=== PATIENT | male | born 1955 | race Caucasian/White ===

== ENCOUNTER 2019-04-08 15:43 | Outpatient (CLI) | payer OTHER, SELFPAY ==
[2019-04-08 16:50] LABS: Prostate Specific Antigen 0.7 ng/mL (< OR = 4.0)
== END 2019-04-08 15:44 | disposition home or self-care (01) ==
LOC: ANHLAB 15:44
PROVIDERS: PCP Internal Medicine; Visit Provider Urology
DX: N40.0 Benign prostatic hyperplasia without lower urinary tract symptoms (principal)
CPT/HCPCS: 36415; 84153

== ENCOUNTER 2019-04-10 15:02 | Outpatient (RCR) | payer OTHER, SELFPAY ==
[2019-04-10 15:04] VITALS: BMI 29.3
== END 2019-07-09 23:59 | disposition home or self-care (01) ==
LOC: ANHDMC 15:02
PROVIDERS: PCP Internal Medicine; Visit Provider Internal Medicine
DX: E11.65 Type 2 diabetes mellitus with hyperglycemia (principal); Z71.3 Dietary counseling and surveillance
CPT/HCPCS: 97803

== ENCOUNTER 2019-04-24 09:53 | Outpatient (CLI) | payer OTHER, SELFPAY ==
--- NOTE | ~2019-04-24 | US_ITS ---
EXAMINATION: US thyroid DATE: 04/24/2019 11:25 INDICATION: Neck swelling. TECHNIQUE: Multiple ultrasound images of the thyroid were obtained. COMPARISON: None. FINDINGS: The right thyroid lobe measures 6.0 x 1.9 x 1.3 cm. The left thyroid lobe measures 5.7 x 2.1 x 1.5 c m. There is normal echotexture and echogenicity throughout the thyroid gland. No discrete nodules id entified. Normal vascular flow is present. IMPRESSION: 1. Normal thyroid. Reviewed, dictated and finalized at location A. OR COUNSEL IMPRESSION: 1. Normal thyroid.
== END 2019-04-24 09:54 | disposition home or self-care (01) ==
LOC: ANHIMG 10:00
PROVIDERS: PCP Internal Medicine; Visit Provider Internal Medicine Endocrinology, Diabetes & Metabolism
DX: R22.1 Localized swelling, mass and lump, neck (principal)
CPT/HCPCS: 76536

== ENCOUNTER 2019-07-31 09:49 | Outpatient (CLI) | payer OTHER, SELFPAY ==
[2019-07-31 11:50] LABS: Vitamin D 25 Hydroxy 48.6 ng/mL
[2019-07-31 12:46] LABS: Alanine Aminotransferase 19 U/L (4-50); Albumin Level 4.3 g/dL (3.5-5.1); Alkaline Phosphatase 57 U/L (38-126); Aspartate Amino Transferase 28 U/L (17-59); Bilirubin,Total 0.7 mg/dL (0.2-1.3); Blood Urea Nitrogen 26 mg/dL (9-20); Calcium 9.1 mg/dL (8.4-10.2); Carbon Dioxide 24 mmol/L (22-30); Chloride 108 mmol/L (98-107); Cholesterol 97 mg/dL (0-200); Estimated Glomerular Filt Rate 51; Glucose 131 mg/dL (75-110); HDL Direct 39 mg/dL; Hemoglobin A1C 5.6 % (<5.7); LDL Cholesterol Direct 47 mg/dL; Potassium 4.5 mmol/L (3.4-5.0); Sodium 137 mmol/L (137-145); Triglycerides 43 mg/dL (<150); Uric Acid 6.1 mg/dL (3.5-8.5)
[2019-07-31 12:47] LABS: Creatinine Urine 74.1 mg/dL; Free T4 Free Thyroxine 1.14 ng/mL (0.78-2.19)
[2019-07-31 12:48] LABS: MALB Creatinine Ratio < 8.1 mg/g (0-30); Microalbumin Urine Random < 6.0 mg/L (0-16.7)
[2019-07-31 13:22] LABS: Red Blood Count 4.17 M/mm3 (4.6-6.20)
[2019-07-31 13:23] LABS: Hematocrit 40.4 % (42.0-52.0); Immature Granulocyte Percent A 0.6 % (0-0.5); Immature Platelet Fraction Pct 2.6 % (0.9-11.2); Mean Corpuscular HGB Conc 34.7 g/dl (32-36); Mean Corpuscular Hemoglobin 33.6 pg (26-34); Mean Corpuscular Volume 96.9 fl (80-100); Platelet Count Result 131 k/mm3 (150-375); Red Cell Distribution Width 13.2 % (11.5-14.5)
[2019-07-31 13:24] LABS: Basophils Percent Auto 0.6 % (0.2-1.2); Eosinophils Absolute Auto 0.2 K/mm3 (0-0.3); Eosinophils Percent Auto 4.4 % (0-4.4); Immature Granulocyte Absolute 0.03 K/mm3 (0.00-0.031); Monocytes Absolute Auto 0.4 K/mm3 (0.1-0.6); Monocytes Percent Auto 8.2 % (2.6-8.5); Neutrophils Absolute Auto 3.2 K/mm3 (1.3-6.7); Neutrophils Percent Auto 64.2 % (45.5-73.1)
[2019-07-31 14:40] LABS: Erythrocyte Sedimentation Rate 24 mm/hr (0-20)
[2019-07-31 15:12] LABS: Add Urine Microscopic? NO; Appearance Urine Clear (Clear); Bilirubin Urine Negative (Negative); Blood Urine Negative (Negative); Color Urine Straw (Yellow); Glucose Urine UA Negative (Negative); Ketones Urine Negative (Negative); Leukocyte Esterase Ur Negative LEU/UL (Negative); Nitrate Urine Negative (Negative); Protein Urine Negative (Negative); Specific Grav Ur 1.014 (1.001-1.035); Urobilinogen Urine Negative mg/dL (<2.0)
== END 2019-07-31 09:50 | disposition home or self-care (01) ==
PROVIDERS: PCP Internal Medicine; Visit Provider Internal Medicine Endocrinology, Diabetes & Metabolism
DX: N18.3 Chronic kidney disease, stage 3 (moderate) (principal); E11.65 Type 2 diabetes mellitus with hyperglycemia; I10 Essential (primary) hypertension; I73.9 Peripheral vascular disease, unspecified; E78.5 Hyperlipidemia, unspecified; L97.901 Non-pressure chronic ulcer of unspecified part of unspecified lower leg limited to breakdown of skin; K21.9 Gastro-esophageal reflux disease without esophagitis; N26.1 Atrophy of kidney (terminal); F17.200 Nicotine dependence, unspecified, uncomplicated; R80.9 Proteinuria, unspecified; E11.9 Type 2 diabetes mellitus without complications
CPT/HCPCS: 36415; 80053; 80061; 81003; 82043; 82306; 83036; 83970; 84439; 84443; 84550; 85025; 85055; 85652

== ENCOUNTER 2019-09-26 10:08 | Outpatient (CLI) | payer OTHER, SELFPAY ==
--- NOTE | ~2019-09-26 | CT_ITS ---
EXAMINATION: CT lung screening DATE: 09/26/2019 10:43 INDICATION: Personal history of tobacco dependence, current smoker with 46 pack year history TECHNIQUE: Computed tomography (CT) of the chest was performed without intravenous contrast. The dose -length product (DLP) was 170.56 mGy-cm. Automated exposure control and iterative reconstruction tech [employer] were employed. COMPARISON: 05/15/2018, 06/11/2017 FINDINGS: There is scarring of the lung apices. Stable 4 mm pleural-based nodules are seen in the rig ht middle and left lower lobes. Mild emphysema is noted. No new pulmonary nodules are identified. The re is no pleural effusion or pneumothorax. Calcified pulmonary nodules and calcified left hilar and m ediastinal lymph nodes are consistent with old granulomatous disease. Calcified coronary artery ather osclerosis is noted. Again noted is nodularity of the liver surface, consistent with cirrhosis. IMPRESSION: 1. Lung-RADS category 2: Benign appearance or behavior. Continue annual screening with noncontrast lo w-dose chest CT in 12 months. Reviewed, dictated and finalized at location B. IMPRESSION: 1. Lung-RADS category 2: Benign appearance or behavior. Continue annual screeni ng with noncontrast low-dose chest CT in 12 months.
== END 2019-09-26 10:09 | disposition home or self-care (01) ==
PROVIDERS: PCP Internal Medicine; Visit Provider Internal Medicine
DX: F17.210 Nicotine dependence, cigarettes, uncomplicated (principal)
CPT/HCPCS: G0297

== ENCOUNTER 2020-01-06 14:31 | Outpatient (CLI) | payer OTHER, SELFPAY ==
--- NOTE | ~2020-01-06 | CT_ITS ---
EXAMINATION: CT abdomen pelvis wo con DATE: 01/06/2020 15:42 INDICATION: Generalized abdominal pain for one month TECHNIQUE: Computed tomography (CT) of the abdomen and pelvis was performed without intravenous contr ast. Automated exposure control and iterative reconstruction technique were employed. Exam dose: 603 .46 mGy-cm total exam DLP. COMPARISON: 10/14/2018 CT abdomen pelvis FINDINGS: The lung bases are clear of consolidation. Heart size is normal. Coronary artery calcifications. No pericardial or pleural effusion. A small stone is noted in the dependent aspect of the gallbladder fundus. No gallbladder wall signifi cant thickening or pericholecystic fluid or fat stranding is suggested. No hepatic space-occupying ma ss lesion. Normal splenic size. No pancreatic mass lesion, calcification or ductal dilatation. Normal morphology of the adrenal glands. No urinary tract calculus or hydroureteronephrosis. There is an endovascular stent at the distal aorta extending into both common iliac arteries. There i s atherosclerotic calcification of the abdominal aorta, iliac and femoral arteries. No abdominal aort ic aneurysm. Prominent calcifications at the origins of the celiac and both renal arteries. No intraperitoneal or retroperitoneal or pelvic mass lesion or adenopathy or ascites is detected. There is generalized mild to moderate thickening of the urinary bladder wall. Mild prostate gland fausto cification. Small bilateral fat-containing inguinal hernias. There are scattered diverticula of the sigmoid and ascending colon. No CT evidence of diverticulitis. No bowel obstruction, bowel wall thickening, pneumatosis or intraperitoneal free air. There is prominent degenerative disc disease at L2-3. No suspicious osteolytic or osteoblastic lesions are noted. Avascular necrosis of both femoral heads. IMPRESSION: Cholelithiasis Atherosclerotic changes of the coronary arteries, abdominal, iliac, femoral, renal, celiac arteries Endovascular stent at the distal abdominal aorta and both common iliac arteries Mild colonic diverticulosis; no CT evidence of diverticulitis Avascular necrosis of both femoral heads Prominent degenerative disc disease at L2-3 Bilateral fat-containing inguinal hernias Nonspecific generalized mild to moderate thickening of the urinary bladder wall Reviewed, dictated and finalized at Location A. Reviewed, dictated and finalized at location A. 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
== END 2020-01-06 14:32 | disposition home or self-care (01) ==
PROVIDERS: PCP Internal Medicine; Visit Provider Internal Medicine
DX: K57.30 Diverticulosis of large intestine without perforation or abscess without bleeding (principal); K40.20 Bilateral inguinal hernia, without obstruction or gangrene, not specified as recurrent; M51.36 Other intervertebral disc degeneration, lumbar region; K80.20 Calculus of gallbladder without cholecystitis without obstruction
CPT/HCPCS: 74176

== ENCOUNTER 2020-01-14 10:41 | Outpatient (CLI) | payer OTHER, SELFPAY ==
--- NOTE | ~2020-01-14 | US_ITS ---
EXAMINATION: US right upper quadrant DATE: 01/14/2020 11:22 INDICATION: Alcoholic cirrhosis of the liver without ascites. TECHNIQUE: Multiple grayscale and Doppler ultrasound images of the abdomen were obtained. COMPARISON: CT abdomen and pelvis 01/06/2020 FINDINGS: The visualized portions of the head and body of the pancreas are normal. The liver demonstr ates coarsened echotexture and surface nodularity, consistent with cirrhosis. There is normal flow in main portal vein. There is a gallstone in the gallbladder, which is normal in size. No gallbladder w all thickening or sonographic Dennison sign. The common duct is normal and measures 3 mm. IMPRESSION: 1. Cirrhosis of the liver. 2. Cholelithiasis. No evidence of acute cholecystitis. Reviewed, dictated and finalized at location A. 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
== END 2020-01-14 10:42 | disposition home or self-care (01) ==
LOC: ANHIMG 10:43
PROVIDERS: PCP Internal Medicine; Visit Provider Internal Medicine Gastroenterology
DX: K70.30 Alcoholic cirrhosis of liver without ascites (principal); K80.20 Calculus of gallbladder without cholecystitis without obstruction
CPT/HCPCS: 76705

== ENCOUNTER 2020-02-03 09:44 | Outpatient (CLI) | payer OTHER, SELFPAY ==
[2020-02-03 10:34] LABS: Basophils Percent Auto 0.5 % (0.2-1.2); Eosinophils Absolute Auto 0.2 K/mm3 (0-0.3); Eosinophils Percent Auto 3.6 % (0-4.4); Hematocrit 40.8 % (42.0-52.0); Hemoglobin 14.4 g/dL (14.0-18.0); Immature Granulocyte Absolute 0.06 K/mm3 (0.00-0.031); Immature Granulocyte Percent A 0.9 % (0-0.5); Immature Platelet Fraction Pct 4.5 % (0.9-11.2); Lymphocytes Absolute Auto 1.18 K/mm3 (0.9-3.2); Lymphocytes Percent Auto 18.5 % (18.3-44.2); Mean Corpuscular HGB Conc 35.3 g/dl (32-36); Mean Corpuscular Hemoglobin 33.3 pg (26-34); Mean Corpuscular Volume 94.4 fl (80-100); Monocytes Absolute Auto 0.5 K/mm3 (0.1-0.6); Monocytes Percent Auto 7.2 % (2.6-8.5); Neutrophils Absolute Auto 4.4 K/mm3 (1.3-6.7); Neutrophils Percent Auto 69.3 % (45.5-73.1); Platelet Count Result 134 k/mm3 (150-375); Red Blood Count 4.32 M/mm3 (4.6-6.20); Red Cell Distribution Width 12.7 % (11.5-14.5); White Blood Count 6.4 K/mm3 (4.5-10.0)
[2020-02-03 10:41] LABS: Prothrombin Time 13.8 Seconds (11.1-14.7)
[2020-02-03 10:52] LABS: Albumin Level 4.1 g/dL (3.5-5.1); Cholesterol 100 mg/dL (0-200)
[2020-02-03 10:58] LABS: LDL Cholesterol Direct 46 mg/dL
[2020-02-03 11:11] LABS: Alanine Aminotransferase 29 U/L (4-50); Alkaline Phosphatase 59 U/L (38-126); Anion Gap 7 mmol/L (8-16); Aspartate Amino Transferase 31 U/L (17-59); Bilirubin,Total 0.8 mg/dL (0.2-1.3); Blood Urea Nitrogen 19 mg/dL (9-20); Calcium 9.3 mg/dL (8.4-10.2); Carbon Dioxide 28 mmol/L (22-30); Chloride 104 mmol/L (98-107); Estimated Glomerular Filt Rate 56; Glucose 101 mg/dL (75-110); HDL Direct 39 mg/dL; Potassium 4.7 mmol/L (3.4-5.0); Sodium 139 mmol/L (137-145); Triglycerides 54 mg/dL (<150)
[2020-02-03 11:21] LABS: Free T4 Free Thyroxine 1.19 ng/mL (0.78-2.19); Hemoglobin A1C 5.8 % (<5.7)
[2020-02-03 12:02] LABS: Creatinine Urine 53.9 mg/dL
[2020-02-03 12:06] LABS: MALB Creatinine Ratio 11.7 mg/g (0-30); Microalbumin Urine Random 6.3 mg/L (0-16.7)
[2020-02-03 13:58] LABS: Prostate Specific Antigen 0.6 ng/mL (< OR = 4.0)
[2020-02-08 14:13] LABS: Alpha Fetoprotein Tumor Marker 2.1 ng/mL (<6.1)
== END 2020-02-03 09:45 | disposition home or self-care (01) ==
PROVIDERS: PCP Internal Medicine; Referring Provider Internal Medicine Endocrinology, Diabetes & Metabolism; Visit Provider Internal Medicine
DX: Z12.9 Encounter for screening for malignant neoplasm, site unspecified (principal); E78.5 Hyperlipidemia, unspecified
CPT/HCPCS: 36415; 80053; 80061; 82043; 82105; 83036; 84153; 84439; 84443; 85025; 85055; 85610

== ENCOUNTER 2020-05-11 09:51 | Outpatient (CLI) | payer MEDICARE, SELFPAY ==
[2020-05-11 10:39] LABS: Hemoglobin 14.2 g/dL (14.0-18.0); Red Blood Count 4.27 M/mm3 (4.6-6.20); White Blood Count 5.6 K/mm3 (4.5-10.0)
[2020-05-11 10:40] LABS: Basophils Percent Auto 0.5 % (0.2-1.2); Eosinophils Absolute Auto 0.2 K/mm3 (0-0.3); Eosinophils Percent Auto 3.4 % (0-4.4); Immature Granulocyte Absolute 0.02 K/mm3 (0.00-0.031); Immature Granulocyte Percent A 0.4 % (0-0.5); Immature Platelet Fraction Pct 4.1 % (0.9-11.2); Lymphocytes Percent Auto 19.7 % (18.3-44.2); Mean Corpuscular HGB Conc 34.6 g/dl (32-36); Mean Corpuscular Hemoglobin 33.3 pg (26-34); Mean Platelet Volume 9.6 fl (7.4-10.4); Monocytes Absolute Auto 0.5 K/mm3 (0.1-0.6); Monocytes Percent Auto 9.1 % (2.6-8.5); Neutrophils Absolute Auto 3.7 K/mm3 (1.3-6.7); Neutrophils Percent Auto 66.9 % (45.5-73.1); Platelet Count Result 130 k/mm3 (150-375); Red Cell Distribution Width 13.1 % (11.5-14.5)
[2020-05-11 10:44] LABS: Hemoglobin A1C 5.7 % (<5.7)
[2020-05-11 10:49] LABS: Alanine Aminotransferase 28 U/L (4-50); Albumin Level 4.1 g/dL (3.5-5.1); Alkaline Phosphatase 56 U/L (38-126); Anion Gap 6 mmol/L (8-16); Aspartate Amino Transferase 30 U/L (17-59); Bilirubin,Total 0.8 mg/dL (0.2-1.3); Blood Urea Nitrogen 27 mg/dL (9-20); Calcium 8.8 mg/dL (8.4-10.2); Carbon Dioxide 29 mmol/L (22-30); Chloride 104 mmol/L (98-107); Cholesterol 106 mg/dL (0-200); Estimated Glomerular Filt Rate 47; Glucose 137 mg/dL (75-110); HDL Direct 35 mg/dL; Phosphorus 3.6 mg/dL (2.5-4.5); Potassium 4.8 mmol/L (3.4-5.0); Sodium 139 mmol/L (137-145); Triglycerides 66 mg/dL (<150); Uric Acid 6.6 mg/dL (3.5-8.5)
[2020-05-11 10:59] LABS: Parathyroid Intact 49.8 pg/mL (7.5-53.5)
[2020-05-11 11:00] LABS: LDL Cholesterol Direct 57 mg/dL
[2020-05-11 11:05] LABS: Creatinine Urine 167.3 mg/dL; Erythrocyte Sedimentation Rate 29 mm/hr (0-20)
[2020-05-11 11:10] LABS: MALB Creatinine Ratio 12.4 mg/g (0-30); Microalbumin Urine Random 20.8 mg/L (0-16.7)
[2020-05-11 11:18] LABS: Thyroid Stimulating Hormone 0.945 uIU/mL (0.465-4.680)
[2020-05-11 11:21] LABS: Free T4 Free Thyroxine 1.09 ng/mL (0.78-2.19); Vitamin D 25 Hydroxy 71.5 ng/mL
[2020-05-11 13:33] LABS: Add Urine Microscopic? NO; Appearance Urine Clear (Clear); Bilirubin Urine Negative (Negative); Blood Urine Negative (Negative); Color Urine Yellow (Yellow); Glucose Urine UA Negative (Negative); Ketones Urine Negative (Negative); Leukocyte Esterase Ur Negative LEU/UL (Negative); Nitrate Urine Negative (Negative); Protein Urine Negative (Negative); Specific Grav Ur 1.019 (1.001-1.035); Urobilinogen Urine Negative mg/dL (<2.0)
== END 2020-05-11 09:52 | disposition home or self-care (01) ==
PROVIDERS: PCP Internal Medicine; Referring Provider Specialist; Visit Provider Internal Medicine Endocrinology, Diabetes & Metabolism
DX: E11.65 Type 2 diabetes mellitus with hyperglycemia (principal); E78.5 Hyperlipidemia, unspecified; R60.9 Edema, unspecified; N39.0 Urinary tract infection, site not specified; R73.09 Other abnormal glucose; Z12.5 Encounter for screening for malignant neoplasm of prostate; Z11.4 Encounter for screening for human immunodeficiency virus [HIV]; N18.30 Chronic kidney disease, stage 3 unspecified; I12.9 Hypertensive chronic kidney disease with stage 1 through stage 4 chronic kidney disease, or unspecified chronic kidney disease
CPT/HCPCS: 36415; 80053; 80061; 81003; 82043; 82306; 83036; 83970; 84100; 84439; 84443; 84550; 85025; 85055; 85652

== ENCOUNTER 2020-09-09 10:25 | Outpatient (CLI) | payer MEDICARE, SELFPAY ==
[2020-09-09 11:10] LABS: Add Urine Microscopic? NO; Appearance Urine Clear (Clear); Basophils Percent Auto 0.5 % (0.2-1.2); Bilirubin Urine Negative (Negative); Blood Urine Negative (Negative); Color Urine Yellow (Yellow); Eosinophils Absolute Auto 0.2 K/mm3 (0-0.3); Eosinophils Percent Auto 3.9 % (0-4.4); Glucose Urine UA Negative (Negative); Hematocrit 41.4 % (42.0-52.0); Hemoglobin 13.9 g/dL (14.0-18.0); Immature Granulocyte Absolute 0.02 K/mm3 (0.00-0.031); Immature Granulocyte Percent A 0.3 % (0-0.5); Immature Platelet Fraction Pct 5.2 % (0.9-11.2); Ketones Urine Negative (Negative); Leukocyte Esterase Ur Negative LEU/UL (Negative); Lymphocytes Absolute Auto 1.24 K/mm3 (0.9-3.2); Lymphocytes Percent Auto 21.1 % (18.3-44.2); Mean Corpuscular HGB Conc 33.6 g/dl (32-36); Mean Corpuscular Hemoglobin 32.6 pg (26-34); Mean Corpuscular Volume 97.2 fl (80-100); Mean Platelet Volume 10.3 fl (7.4-10.4); Monocytes Absolute Auto 0.4 K/mm3 (0.1-0.6); Monocytes Percent Auto 7.3 % (2.6-8.5); Neutrophils Absolute Auto 3.9 K/mm3 (1.3-6.7); Neutrophils Percent Auto 66.9 % (45.5-73.1); Nitrate Urine Negative (Negative); Platelet Count Result 117 k/mm3 (150-375); Protein Urine Negative (Negative); Red Blood Count 4.26 M/mm3 (4.6-6.20); Urobilinogen Urine Negative mg/dL (<2.0); White Blood Count 5.9 K/mm3 (4.5-10.0)
[2020-09-09 11:20] LABS: Alanine Aminotransferase 34 U/L (4-50); Albumin Level 4.5 g/dL (3.5-5.1); Alkaline Phosphatase 56 U/L (38-126); Anion Gap 8 mmol/L (8-16); Aspartate Amino Transferase 38 U/L (17-59); Bilirubin,Total 0.6 mg/dL (0.2-1.3); Blood Urea Nitrogen 25 mg/dL (9-20); Calcium 9.4 mg/dL (8.4-10.2); Carbon Dioxide 25 mmol/L (22-30); Chloride 107 mmol/L (98-107); Cholesterol 103 mg/dL (0-200); Estimated Glomerular Filt Rate 44; Glucose 103 mg/dL (75-110); HDL Direct 41 mg/dL; Phosphorus 3.9 mg/dL (2.5-4.5); Potassium 5.1 mmol/L (3.4-5.0); Sodium 140 mmol/L (137-145); Triglycerides 68 mg/dL (<150); Uric Acid 7.2 mg/dL (3.5-8.5)
[2020-09-09 11:31] LABS: LDL Cholesterol Direct 48 mg/dL
[2020-09-09 11:32] LABS: Parathyroid Intact 46.7 pg/mL (7.5-53.5)
[2020-09-09 11:51] LABS: Thyroid Stimulating Hormone 0.613 uIU/mL (0.465-4.680)
[2020-09-09 12:12] LABS: Creatinine Urine 61.1 mg/dL
[2020-09-09 12:15] LABS: MALB Creatinine Ratio 17.2 mg/g (0-30); Microalbumin Urine Random 10.5 mg/L (0-16.7)
[2020-09-09 12:24] LABS: Free T4 Free Thyroxine 0.98 ng/mL (0.78-2.19); Vitamin D 25 Hydroxy 71.1 ng/mL
[2020-09-09 14:51] LABS: Erythrocyte Sedimentation Rate 21 mm/hr (0-20)
== END 2020-09-09 10:26 | disposition home or self-care (01) ==
LOC: ANHLAB 10:34
PROVIDERS: PCP Internal Medicine; Visit Provider Specialist
DX: E78.5 Hyperlipidemia, unspecified (principal); E11.65 Type 2 diabetes mellitus with hyperglycemia; R60.9 Edema, unspecified; N39.0 Urinary tract infection, site not specified; R73.09 Other abnormal glucose; Z11.4 Encounter for screening for human immunodeficiency virus [HIV]; Z12.5 Encounter for screening for malignant neoplasm of prostate; I12.9 Hypertensive chronic kidney disease with stage 1 through stage 4 chronic kidney disease, or unspecified chronic kidney disease; N18.30 Chronic kidney disease, stage 3 unspecified
CPT/HCPCS: 36415; 80053; 80061; 80069; 81003; 82043; 82306; 83036; 83970; 84439; 84443; 84550; 85025; 85055; 85652

== ENCOUNTER 2020-12-28 10:29 | Outpatient (CLI) | payer MEDICARE, SELFPAY ==
[2020-12-28 11:22] LABS: Basophils Absolute Auto 0.1 K/mm3 (0.0-0.1); Basophils Percent Auto 0.8 % (0.2-1.2); Eosinophils Absolute Auto 0.2 K/mm3 (0-0.3); Eosinophils Percent Auto 3.7 % (0-4.4); Hematocrit 41.4 % (42.0-52.0); Hemoglobin 14.3 g/dL (14.0-18.0); Immature Granulocyte Absolute 0.03 K/mm3 (0.00-0.031); Immature Granulocyte Percent A 0.5 % (0-0.5); Immature Platelet Fraction Pct 5.9 % (0.9-11.2); Lymphocytes Absolute Auto 1.18 K/mm3 (0.9-3.2); Lymphocytes Percent Auto 18.2 % (18.3-44.2); Mean Corpuscular HGB Conc 34.5 g/dl (32-36); Mean Corpuscular Hemoglobin 34.7 pg (26-34); Mean Corpuscular Volume 100.5 fl (80-100); Mean Platelet Volume 10.3 fl (7.4-10.4); Monocytes Absolute Auto 0.5 K/mm3 (0.1-0.6); Neutrophils Absolute Auto 4.5 K/mm3 (1.3-6.7); Neutrophils Percent Auto 68.8 % (45.5-73.1); Platelet Count Result 118 k/mm3 (150-375); Red Blood Count 4.12 M/mm3 (4.6-6.20); Red Cell Distribution Width 13.7 % (11.5-14.5); White Blood Count 6.5 K/mm3 (4.5-10.0)
[2020-12-28 11:23] LABS: Add Urine Microscopic? NO; Appearance Urine Clear (Clear); Bilirubin Urine Negative (Negative); Blood Urine Negative (Negative); Color Urine Yellow (Yellow); Glucose Urine UA Negative (Negative); Ketones Urine Negative (Negative); Leukocyte Esterase Ur Negative LEU/UL (Negative); Nitrate Urine Negative (Negative); Protein Urine Negative (Negative); Specific Grav Ur 1.011 (1.001-1.035); Urobilinogen Urine Negative mg/dL (<2.0)
[2020-12-28 11:34] LABS: Alanine Aminotransferase 48 U/L (4-50); Albumin Level 4.3 g/dL (3.5-5.1); Alkaline Phosphatase 56 U/L (38-126); Anion Gap 7 mmol/L (8-16); Aspartate Amino Transferase 46 U/L (17-59); Bilirubin,Total 0.9 mg/dL (0.2-1.3); Blood Urea Nitrogen 25 mg/dL (9-20); Calcium 9.3 mg/dL (8.4-10.2); Carbon Dioxide 27 mmol/L (22-30); Chloride 106 mmol/L (98-107); Cholesterol 110 mg/dL (0-200); Estimated Glomerular Filt Rate 47; Glucose 133 mg/dL (65-110); HDL Direct 41 mg/dL; Sodium 140 mmol/L (137-145); Triglycerides 66 mg/dL (<150); Uric Acid 7.4 mg/dL (3.5-8.5)
[2020-12-28 11:45] LABS: LDL Cholesterol Direct 64 mg/dL; Parathyroid Intact 62.8 pg/mL (7.5-53.5)
[2020-12-28 11:52] LABS: Free T4 Free Thyroxine 1.15 ng/mL (0.78-2.19); Vitamin D 25 Hydroxy 81.7 ng/mL
[2020-12-28 12:04] LABS: Thyroid Stimulating Hormone 0.944 uIU/mL (0.465-4.680)
[2020-12-28 12:06] LABS: Hemoglobin A1C 5.8 % (<5.7)
[2020-12-28 12:16] LABS: Creatinine Urine 74.7 mg/dL
[2020-12-28 12:22] LABS: MALB Creatinine Ratio 10.2 mg/g (0-30); Microalbumin Urine Random 7.6 mg/L (0-16.7)
[2020-12-28 22:43] LABS: Erythrocyte Sedimentation Rate 18 mm/hr (0-20)
== END 2020-12-28 10:30 | disposition home or self-care (01) ==
PROVIDERS: PCP Internal Medicine; Referring Provider Specialist; Visit Provider Internal Medicine Endocrinology, Diabetes & Metabolism
DX: E11.9 Type 2 diabetes mellitus without complications (principal); E78.5 Hyperlipidemia, unspecified; I12.9 Hypertensive chronic kidney disease with stage 1 through stage 4 chronic kidney disease, or unspecified chronic kidney disease; N18.31 Chronic kidney disease, stage 3a; D64.9 Anemia, unspecified; R60.9 Edema, unspecified; E55.9 Vitamin D deficiency, unspecified; N39.0 Urinary tract infection, site not specified
CPT/HCPCS: 36415; 80053; 80061; 81003; 82043; 82306; 83036; 83970; 84439; 84443; 84550; 85025; 85055; 85652

== ENCOUNTER 2021-04-12 09:50 | Outpatient (CLI) | payer MEDICARE, SELFPAY ==
[2021-04-12 10:31] LABS: Basophils Percent Auto 0.6 % (0.2-1.2); Eosinophils Absolute Auto 0.2 K/mm3 (0-0.3); Eosinophils Percent Auto 3.3 % (0-4.4); Hematocrit 41.2 % (42.0-52.0); Immature Granulocyte Absolute 0.03 K/mm3 (0.00-0.031); Immature Granulocyte Percent A 0.6 % (0-0.5); Immature Platelet Fraction Pct 4.4 % (0.9-11.2); Lymphocytes Absolute Auto 1.14 K/mm3 (0.9-3.2); Lymphocytes Percent Auto 20.9 % (18.3-44.2); Mean Corpuscular Hemoglobin 33.4 pg (26-34); Mean Corpuscular Volume 98.3 fl (80-100); Monocytes Absolute Auto 0.5 K/mm3 (0.1-0.6); Monocytes Percent Auto 9.4 % (2.6-8.5); Neutrophils Absolute Auto 3.6 K/mm3 (1.3-6.7); Neutrophils Percent Auto 65.2 % (45.5-73.1); Platelet Count Result 126 k/mm3 (150-375); Red Blood Count 4.19 M/mm3 (4.6-6.20); Red Cell Distribution Width 13.2 % (11.5-14.5); White Blood Count 5.5 K/mm3 (4.5-10.0)
[2021-04-12 10:39] LABS: INR 1.1; Prothrombin Time 14.2 Seconds (11.1-14.7)
[2021-04-12 10:42] LABS: Alanine Aminotransferase 40 U/L (4-50); Albumin Level 4.3 g/dL (3.5-5.1); Alkaline Phosphatase 61 U/L (38-126); Anion Gap 7 mmol/L (8-16); Aspartate Amino Transferase 42 U/L (17-59); Bilirubin,Total 0.7 mg/dL (0.2-1.3); Blood Urea Nitrogen 27 mg/dL (9-20); Calcium 9.3 mg/dL (8.4-10.2); Carbon Dioxide 27 mmol/L (22-30); Chloride 104 mmol/L (98-107); Cholesterol 130 mg/dL (0-200); Estimated Glomerular Filt Rate 51; Glucose 145 mg/dL (65-110); HDL Direct 38 mg/dL; Potassium 4.9 mmol/L (3.4-5.0); Sodium 138 mmol/L (137-145); Triglycerides 68 mg/dL (<150)
[2021-04-12 10:52] LABS: LDL Cholesterol Direct 72 mg/dL
[2021-04-12 11:11] LABS: Thyroid Stimulating Hormone 0.702 uIU/mL (0.465-4.680)
[2021-04-12 11:28] LABS: Free T4 Free Thyroxine 1.26 ng/mL (0.78-2.19)
[2021-04-16 16:16] LABS: Alpha Fetoprotein Tumor Marker 4.3 ng/mL (<6.1)
== END 2021-04-12 09:51 | disposition home or self-care (01) ==
PROVIDERS: PCP Internal Medicine; Referring Provider Internal Medicine Gastroenterology; Visit Provider Internal Medicine Endocrinology, Diabetes & Metabolism
DX: I10 Essential (primary) hypertension (principal); E11.9 Type 2 diabetes mellitus without complications; E78.2 Mixed hyperlipidemia; K70.30 Alcoholic cirrhosis of liver without ascites
CPT/HCPCS: 36415; 80053; 80061; 82105; 83036; 84439; 84443; 85025; 85055; 85610

== ENCOUNTER 2021-05-17 07:59 | Outpatient (CLI) | payer MEDICARE, SELFPAY ==
--- NOTE | ~2021-05-17 | US_ITS ---
US abdomen limited INDICATION: Cirrhosis PROCEDURE: Realtime right upper abdominal ultrasound. COMPARISON: No prior studies for comparison. FINDINGS: The pancreas is normal without focal mass or pancreatic ductal dilation. Liver echotexture is increased, consistent with fatty infiltration. There is nodularity of the liver surface, consiste nt with cirrhosis. There is normal directional flow in the portal vein. Gallbladder contains echogenic foci, consistent with cholelithiasis. No gallbladder wall thickening o r pericholecystic fluid. Common bile duct measures 5 mm. No sonographic Dennison's sign. IMPRESSION: 1: Cholelithiasis. 2: Cirrhosis. Reviewed, dictated and finalized at location A.
--- NOTE | ~2021-05-17 | US_ITS ---
EXAMINATION: [facility] DATE: 05/17/2021 08:36 INDICATION: Hypercholesterolemia, current smoker TECHNIQUE: Grayscale, color Doppler, and pulsed Doppler images of the aorta and common iliac arteries were obtained. COMPARISON: None. FINDINGS: Maximum vascular dimensions are as follows: Proximal aorta: 2.4 cm Mid aorta: 1.7 cm Distal aorta: 1.8 cm Right common iliac artery: 0.9 cm Left common iliac artery: 0.9 cm There is no evidence of abdominal aortic aneurysm. IMPRESSION: 1. No sonographically detected abdominal aortic aneurysm. Reviewed, dictated and finalized at location D.
== END 2021-05-17 08:00 | disposition home or self-care (01) ==
PROVIDERS: PCP Internal Medicine; Visit Provider Internal Medicine
DX: F17.200 Nicotine dependence, unspecified, uncomplicated (principal); K70.30 Alcoholic cirrhosis of liver without ascites; K80.20 Calculus of gallbladder without cholecystitis without obstruction
CPT/HCPCS: 76705; 76706

== ENCOUNTER → 2021-05-30 03:07 | Outpatient (CLI) | payer MEDICARE, SELFPAY ==
[2021-05-30 10:47] LABS: SARS-CoV-2 RNA PCR Negative
== END ==
PROVIDERS: PCP Internal Medicine; Visit Provider Internal Medicine Gastroenterology
DX: Z01.812 Encounter for preprocedural laboratory examination (principal); Z20.822 Contact with and (suspected) exposure to COVID-19
CPT/HCPCS: C9803; U0003; U0005

== ENCOUNTER 2021-06-02 01:07 | Day surgery (SDC) | payer MEDICARE, SELFPAY ==
[2021-05-23 14:27] VITALS: BMI 28.5
[2021-06-02 10:29] VITALS: BP 138/83; PULSE 60; RESP 20; TEMP 36.6; O2SAT 100
--- NOTE | 2021-06-02 10:31 | PM.HPGS ---
History of Present Illness History of Present Illness Consent: Risks, benefits, and alternatives have been discussed and questions answered. Patient agrees to proceed with procedure. Chief complaint: hx of david's esophagus, alcoholic cirrhosis Narrative: Daniel Treviño is a 66 year old male With a long history of acid reflux. He did have an EGD about 3 years ago that apparently revealed mild reflux changes, grade A and also some small varices in the distal esophagus and gastric fundus. Review of Systems Review of Systems: All systems reviewed & are unremarkable except as noted in HPI and below PMFSH Family History Family History Mother Family history of respiratory disorder Father Family history of heart disease in male family member before age 55 Social History Social History Smoking packs per day: 1 Smoking cigarettes per day: 20.0 Years smoked: 50 Smoking pack-years: 50.00 Smoking status: Current every day smoker Tobacco type: cigarettes Alcohol intake: current Drinks per week: 2 Living arrangements: with family Spiritual care concerns: No Meds Home Medications and Allergies Home Medications Medication Instructions Recorded Confirmed Type Adults Multivitamin 1 tab-cap PO DAILY 05/23/21 06/02/21 History Fiasp U-100 Insulin See Protocol SUBCUT TID 05/23/21 06/02/21 History Tresiba U-100 Insulin 50 unit SUBCUT HS 05/23/21 05/23/21 History aspirin 81 mg PO DAILY 05/23/21 05/23/21 History atorvastatin See Rx Instructions .ROUTE .COMPLEX 05/23/21 05/23/21 History ferrous sulfate [iron] 325 mg PO DAILY 05/23/21 05/23/21 History nadolol 40 mg PO DAILY 05/23/21 05/23/21 History omega-3 fatty acids-vitamin E 1 cap PO DAILY 05/23/21 05/23/21 History pantoprazole 40 mg PO DAILY 05/23/21 05/23/21 History pregabalin 50 mg PO TID 05/23/21 05/23/21 History torsemide 10 mg PO DAILY 05/23/21 05/23/21 History zolpidem 10 mg PO HS 05/23/21 05/23/21 History Allergies Allergy/AdvReac Type Severity Reaction Status Date / Time codeine Allergy Unknown NAUSEA Verified 06/02/21 10:28 Penicillins Allergy Unknown Unknown Verified 06/02/21 10:28 Vital Signs Vital Signs - 24 hr 06/02/21 10:29 Temperature 36.6 C Pulse Rate 60 Respiratory Rate 20 Blood Pressure 138/83 Pulse Oximetry 100 Exam Const: General: alert Orientation/consciousness: patient oriented x3 Resp: Auscultation: clear to auscultation bilaterally Cardio: Rhythm: regular rhythm GI: GI Palp: Yes Soft to palpation and No Tenderness to palpation present (GI) Neuro: General: patient oriented x3 Assessment and Plan Assessment and plan (1) GERD (gastroesophageal reflux disease): Code(s): K21.9 - Gastro-esophageal reflux disease without esophagitis Status: Acute Assessment and Plan: EGD with possible biopsy or dilatation or cautery.
[2021-06-02] MEDS: LACTATED RINGERS 1,000 ML 150 ML IV CONT (10:38)
[2021-06-02 10:48] LABS: Glucose Point of Care 99 mg/dl (65-105)
--- NOTE | 2021-06-02 10:57 | WPDANESEPPF ---
Anes - Initial Pre Proc Eval Procedure: Operation Date: 06/02/21 11:30 Proposed Procedures p Esophagogastroduodenoscopy - Alan Barrientos MD Date/Time: 06/02/21 10:57 Surgeon: Alan Barrientos MD Pre Op Diagnosis: hx of david's esophagus, alcoholic cirrhosis Patient Data Age: 66 Gender: M Height: 1.8 m Weight: 92.6 kg Last Vital Signs Temp 97.8 F 06/02/21 10:29 Pulse 60 06/02/21 10:29 Resp 20 06/02/21 10:29 BP 138/83 06/02/21 10:29 Pulse Ox 100 06/02/21 10:29 Allergies Allergy/AdvReac Type Severity Reaction Status Date / Time codeine Allergy Unknown NAUSEA Verified 06/02/21 10:28 Penicillins Allergy Unknown Unknown Verified 06/02/21 10:28 Home Medications Medication Instructions Recorded Confirmed Type Adults Multivitamin 1 tab-cap PO DAILY 05/23/21 06/02/21 History aspirin 81 mg PO DAILY 05/23/21 05/23/21 History atorvastatin See Rx Instructions .ROUTE .COMPLEX 05/23/21 05/23/21 History ferrous sulfate [iron] 325 mg PO DAILY 05/23/21 05/23/21 History insulin aspart (niacinamide) See Protocol SUBCUT TID 05/23/21 06/02/21 History [Fiasp U-100 Insulin] insulin degludec [Tresiba U-100 50 unit SUBCUT HS 05/23/21 05/23/21 History Insulin] nadolol 40 mg PO DAILY 05/23/21 05/23/21 History omega-3 fatty acids-vitamin E 1 cap PO DAILY 05/23/21 05/23/21 History [Fish Oil] pantoprazole 40 mg PO DAILY 05/23/21 05/23/21 History pregabalin 50 mg PO TID 05/23/21 05/23/21 History torsemide 10 mg PO DAILY 05/23/21 05/23/21 History zolpidem 10 mg PO HS 05/23/21 05/23/21 History Laboratory Tests 06/02/21 10:40 POC Capillary Glucose 99 mg/dl mg/dl (65-105) Patient hx anesthesia problems: none Family hx anesthesia problems: none Results Review: All pre-operative results and documents have been reviewed as part of the pre-operative evaluation. [facility] Family History Family History Mother Family history of respiratory disorder Father Family history of heart disease in male family member before age 55 Social History Social History Smoking packs per day: 1 Smoking cigarettes per day: 20.0 Years smoked: 50 Smoking pack-years: 50.00 Smoking status: Current every day smoker Tobacco type: cigarettes Alcohol intake: current Drinks per week: 2 Living arrangements: with family Spiritual care concerns: No Anes - Eval Final PreProcedure Day of Procedure 06/02/21 10:57 Patient weight: obese Heart: regular rate and rhythm Lungs: clear to auscultation Airway: Mallampati scale class III Neurological: alert and oriented Last oral intake: >/= 8 hours ASA classification: III Emergent: no Anesthetic plan: proceed Anesthesia type and monitoring: general GIVS and standard monitoring Results Review: All pre-operative results and documents have been reviewed as part of the pre-operative evaluation. Informed Consent: The patient's anesthetic plan and its attendant risks and benefits were discussed with the patient/family/POA. Questions were solicited and answers provided to the satisfaction of the patient/family/POA.
[2021-06-02 11:16] VITALS: BP 107/84; PULSE 59; RESP 19; O2SAT 99
[2021-06-02 11:26] VITALS: BP 128/73; PULSE 62; RESP 20; O2SAT 99
[2021-06-02 11:36] VITALS: BP 141/81; PULSE 60; RESP 20; O2SAT 99
== END 2021-06-02 11:46 | disposition home or self-care (01) ==
PROVIDERS: PCP Internal Medicine; Visit Provider Internal Medicine Gastroenterology
PROC: 0DJ08ZZ Inspection of Upper Intestinal Tract, Via Natural or Artificial Opening Endoscopic (ICD-10-PCS; CPT 43235; principal; 2021-06-02 11:30)
DX: K21.00 Gastro-esophageal reflux disease with esophagitis, without bleeding (principal); I85.10 Secondary esophageal varices without bleeding; K22.70 Barrett's esophagus without dysplasia; K70.30 Alcoholic cirrhosis of liver without ascites; Z79.82 Long term (current) use of aspirin; Z79.4 Long term (current) use of insulin; F17.210 Nicotine dependence, cigarettes, uncomplicated; E66.9 Obesity, unspecified; Z68.28 Body mass index [BMI] 28.0-28.9, adult
CPT/HCPCS: 43239; 82948; 88305; 88313; C9803; J2704; J7120; U0003; U0005

== ENCOUNTER 2021-06-06 12:23 | Outpatient (CLI) | payer MEDICARE, SELFPAY ==
--- NOTE | ~2021-06-06 | CT_ITS ---
EXAMINATION:CT diagnostic chest wo con DATE: 06/06/2021 14:11 INDICATION: Malignant neoplasm of bladder. TECHNIQUE: Computed tomography (CT) of the chest was performed without intravenous contrast. Automate d exposure control and iterative reconstruction technique were employed. The dose-length product (DLP ) was 439.09 mGy-cm. COMPARISON: Chest CT 09/26/2019 FINDINGS: There is mild emphysema. There is a stable 5 mm nodule in right middle lobe, likely benign. Calcified left lung nodules and calcified left hilar lymph nodes are consistent with old granulomato us disease. No pleural effusion. The heart size is normal. There are coronary artery calcifications. No pericardial effusion. The liver demonstrates steatosis and a nodular surface contour, consistent w ith cirrhosis. There is a gallstone in the gallbladder, which is normal in size. There is a splenoren al portacaval shunt. There is mild thoracic spondylosis. IMPRESSION: 1. No evidence of metastatic disease. 2. Mild emphysema. 3. Cirrhosis of the liver with portal venous hypertension. Reviewed, dictated and finalized at location A.
--- NOTE | ~2021-06-06 | CT_ITS ---
EXAMINATION: CT abdomen pelvis wo/w con EXAM DATE: 06/06/2021 14:13 INDICATION: History of bladder cancer. TECHNIQUE: Spiral CT of the abdomen and pelvis was performed without contrast. The patient was then injected with small bolus intravenous Omnipaque 350, followed by delay of approximately 10 minutes to allow collecting system to opacify. A post contrast scan abdomen and pelvis was performed during inj ection of remaining contrast. A total of 130 cc intravenous contrast was administered. The dose-mary th product (DLP) for this examination was 1455.19 mGy-cm. The exposure was tailored according to pat ient size (auto mA exposure control), and iterative reconstruction (ASIR) was used as additional dose reduction technique. Comparison is made to prior examination from 01/06/2020. FINDINGS: There is no hydronephrosis or nephrolithiasis. The kidneys enhance symmetrically. There a re no suspicious renal lesions. The calyces and opacified portions of ureters are unremarkable, with out filling defects or focal suspicious strictures. The bladder is unremarkable. The prostate is un remarkable. Small bilateral inguinal fat-containing hernias. Small umbilical fat-containing hernia. The liver, spleen, adrenal glands and pancreas are unremarkable. There are gallstones within an othe rwise unremarkable gallbladder. No evidence of obstructive biliary disease. Several borderline size periportal lymph nodes unchanged likely reactive. No pelvic lymphadenopathy. There is moderate scat tered arteriosclerotic disease. There are aorta biiliac stents. The appendix is not positively visualized. There is no pericecal inflammatory change to suggest appe ndicitis. There is mild scattered colonic diverticulosis. There is no adjacent inflammatory change t o suggest diverticulitis. The stomach and small bowel are unremarkable. There is expected amount of colonic stool. No free intraperitoneal gas. The heart is normal in size. There are no pericardia l or pleural effusions. The lung bases are unremarkable. There are no osteoblastic or osteolytic le sions identified. Bilateral femoral heads serpiginous sclerosis, avascular necrosis without subchondr al collapse. This appears stable compared to 2019. IMPRESSION: 1. No suspicious genitourinary findings. 2. Small umbilical, inguinal fat-containing hernias. 3. Mild colonic diverticulosis. 4. Femoral head avascular necrosis. 5. Cholelithiasis Reviewed, dictated and finalized at location B.
[2021-06-06 13:52] LABS: Estimated Glomerular Filt Rate 41
== END 2021-06-06 12:24 | disposition home or self-care (01) ==
LOC: ANHIMG 12:24
PROVIDERS: PCP Internal Medicine; Visit Provider Urology
DX: Z85.51 Personal history of malignant neoplasm of bladder (principal); K42.9 Umbilical hernia without obstruction or gangrene; K57.30 Diverticulosis of large intestine without perforation or abscess without bleeding; K80.20 Calculus of gallbladder without cholecystitis without obstruction; K40.90 Unilateral inguinal hernia, without obstruction or gangrene, not specified as recurrent
CPT/HCPCS: 71250; 74178; Q9967

== ENCOUNTER 2021-06-24 09:14 | Outpatient (CLI) | payer MEDICARE, SELFPAY ==
[2021-06-24 10:00] LABS: Basophils Percent Auto 0.5 % (0.2-1.2); Eosinophils Absolute Auto 0.1 K/mm3 (0-0.3); Eosinophils Percent Auto 2.7 % (0-4.4); Hematocrit 42.4 % (42.0-52.0); Hemoglobin 14.2 g/dL (14.0-18.0); Immature Granulocyte Absolute 0.02 K/mm3 (0.00-0.031); Immature Granulocyte Percent A 0.5 % (0-0.5); Immature Platelet Fraction Pct 4.5 % (0.9-11.2); Lymphocytes Absolute Auto 1.09 K/mm3 (0.9-3.2); Lymphocytes Percent Auto 24.8 % (18.3-44.2); Mean Corpuscular HGB Conc 33.5 g/dl (32-36); Mean Corpuscular Hemoglobin 32.5 pg (26-34); Mean Platelet Volume 10.1 fl (7.4-10.4); Monocytes Absolute Auto 0.4 K/mm3 (0.1-0.6); Neutrophils Absolute Auto 2.7 K/mm3 (1.3-6.7); Neutrophils Percent Auto 61.5 % (45.5-73.1); Platelet Count Result 125 k/mm3 (150-375); Red Blood Count 4.37 M/mm3 (4.6-6.20); Red Cell Distribution Width 13.6 % (11.5-14.5); White Blood Count 4.4 K/mm3 (4.5-10.0)
[2021-06-24 10:01] LABS: Add Urine Microscopic? NO; Appearance Urine Clear (Clear); Bilirubin Urine Negative (Negative); Blood Urine Negative (Negative); Color Urine Yellow (Yellow); Glucose Urine UA Negative (Negative); Ketones Urine Negative (Negative); Leukocyte Esterase Ur Negative LEU/UL (NEGATIVE); Nitrate Urine Negative (Negative); Protein Urine Negative (Negative); Specific Grav Ur 1.018 (1.001-1.035); Urobilinogen Urine Negative mg/dL (<2.0)
[2021-06-24 10:12] LABS: Albumin Level 4.1 g/dL (3.5-5.1); Anion Gap 4 mmol/L (8-16); Blood Urea Nitrogen 23 mg/dL (9-20); CRP 1.1 mg/dL (<1.0); Calcium 8.8 mg/dL (8.4-10.2); Carbon Dioxide 30 mmol/L (22-30); Chloride 106 mmol/L (98-107); Estimated Glomerular Filt Rate 51; Glucose 96 mg/dL (65-110); Magnesium 1.8 mg/dL (1.6-2.3); Phosphorus 3.9 mg/dL (2.5-4.5); Potassium 4.9 mmol/L (3.4-5.0); Sodium 140 mmol/L (137-145)
[2021-06-24 10:16] LABS: Complement C3 107 mg/dL (88-165)
[2021-06-24 10:39] LABS: Erythrocyte Sedimentation Rate 15 mm/hr (0-20)
[2021-06-24 10:43] LABS: Vitamin D 25 Hydroxy 74.8 ng/mL
[2021-06-24 10:49] LABS: Creatinine Urine 116.2 mg/dL; Total Protein Urine Random 10 mg/dL; Ur Ttl Prot Creatinine Ratio 0.09 mg/mg (0-0.20)
[2021-06-24 10:50] LABS: MALB Creatinine Ratio 24.4 mg/g (0-30); Microalbumin Urine Random 28.4 mg/L (0-16.7)
[2021-06-24 10:54] LABS: HIV 1/2 Ab P24 Ag Result Negative (Negative)
[2021-06-24 10:55] LABS: Hepatitis B Surface Antigen Negative (Negative)
[2021-06-24 11:01] LABS: HAV RESULT Negative (Negative); Hepatitis B Core IgM Result Negative (Negative)
[2021-06-24 11:12] LABS: Hepatitis C Virus Antibody Negative (Negative)
[2021-06-24 12:22] LABS: Rapid Plasma Reagin Non-Reactive (NonReactive)
== END 2021-06-24 09:15 | disposition home or self-care (01) ==
LOC: ANHLAB 09:25
PROVIDERS: PCP Internal Medicine; Visit Provider Internal Medicine Nephrology
DX: I12.9 Hypertensive chronic kidney disease with stage 1 through stage 4 chronic kidney disease, or unspecified chronic kidney disease (principal); N18.30 Chronic kidney disease, stage 3 unspecified; K70.2 Alcoholic fibrosis and sclerosis of liver; I85.10 Secondary esophageal varices without bleeding; I63.9 Cerebral infarction, unspecified; I73.9 Peripheral vascular disease, unspecified; E11.22 Type 2 diabetes mellitus with diabetic chronic kidney disease; E78.00 Pure hypercholesterolemia, unspecified
CPT/HCPCS: 36415; 80069; 80074; 81003; 82043; 82306; 82570; 82607; 82728; 83735; 83970; 84156; 85025; 85055; 85652; 86140; 86160; 86592; 86703; G0432

== ENCOUNTER 2021-07-20 09:50 | Outpatient (CLI) | payer MEDICARE, SELFPAY ==
[2021-07-20 10:23] LABS: Basophils Percent Auto 0.4 % (0.2-1.2); Eosinophils Absolute Auto 0.1 K/mm3 (0-0.3); Eosinophils Percent Auto 2.2 % (0-4.4); Hematocrit 42.1 % (42.0-52.0); Hemoglobin 14.3 g/dL (14.0-18.0); Immature Granulocyte Absolute 0.02 K/mm3 (0.00-0.031); Immature Granulocyte Percent A 0.4 % (0-0.5); Immature Platelet Fraction Pct 5.3 % (0.9-11.2); Lymphocytes Absolute Auto 1.13 K/mm3 (0.9-3.2); Mean Corpuscular Hemoglobin 33.3 pg (26-34); Mean Corpuscular Volume 97.9 fl (80-100); Monocytes Absolute Auto 0.5 K/mm3 (0.1-0.6); Monocytes Percent Auto 9.3 % (2.6-8.5); Neutrophils Absolute Auto 3.6 K/mm3 (1.3-6.7); Neutrophils Percent Auto 66.7 % (45.5-73.1); Platelet Count Result 133 k/mm3 (150-375); Red Cell Distribution Width 14.1 % (11.5-14.5); White Blood Count 5.4 K/mm3 (4.5-10.0)
== END 2021-07-20 09:51 | disposition home or self-care (01) ==
PROVIDERS: PCP Internal Medicine; Visit Provider Internal Medicine
DX: D72.819 Decreased white blood cell count, unspecified (principal)
CPT/HCPCS: 36415; 85025; 85055

== ENCOUNTER 2021-10-03 09:02 | Outpatient (CLI) | payer MEDICARE, SELFPAY ==
--- NOTE | ~2021-10-03 | US_ITS ---
US abdomen limited INDICATION: Pancytopenia. Thrombocytopenia. PROCEDURE: Realtime right upper abdominal ultrasound. COMPARISON: No prior studies for comparison. FINDINGS: The pancreas is normal without focal mass or pancreatic ductal dilation. Liver echotexture is increased, consistent with fatty infiltration. There is normal directional there are gallstones. Flow in the portal vein. Portal vein is dilated measuring 13 mm The gallbladder is normal without stones, gallbladder wall thickening or pericholecystic fluid. Comm on bile duct measures 5 mm. No sonographic Dennison's sign. IMPRESSION: 1: Cholelithiasis. 2: Hepatic steatosis. 3: Dilated portal vein, suspicious for portal hypertension. Reviewed, dictated and finalized at location A.
== END 2021-10-03 09:03 | disposition home or self-care (01) ==
PROVIDERS: PCP Internal Medicine
DX: D61.818 Other pancytopenia (principal); D69.6 Thrombocytopenia, unspecified; K80.20 Calculus of gallbladder without cholecystitis without obstruction; K76.0 Fatty (change of) liver, not elsewhere classified
CPT/HCPCS: 76705

== ENCOUNTER 2021-10-03 14:50 | Outpatient (CLI) | payer MEDICARE, SELFPAY ==
[2021-10-03 15:51] LABS: Basophils Percent Auto 0.4 % (0.2-1.2); Eosinophils Absolute Auto 0.2 K/mm3 (0-0.3); Eosinophils Percent Auto 3.5 % (0-4.4); Hematocrit 44.4 % (42.0-52.0); Immature Granulocyte Absolute 0.02 K/mm3 (0.00-0.031); Immature Granulocyte Percent A 0.4 % (0-0.5); Immature Platelet Fraction Pct 6.5 % (0.9-11.2); Lymphocytes Absolute Auto 1.17 K/mm3 (0.9-3.2); Lymphocytes Percent Auto 22.8 % (18.3-44.2); Mean Corpuscular HGB Conc 33.8 g/dl (32-36); Mean Corpuscular Hemoglobin 33.1 pg (26-34); Mean Platelet Volume 10.4 fl (7.4-10.4); Monocytes Absolute Auto 0.4 K/mm3 (0.1-0.6); Monocytes Percent Auto 7.2 % (2.6-8.5); Neutrophils Absolute Auto 3.4 K/mm3 (1.3-6.7); Neutrophils Percent Auto 65.7 % (45.5-73.1); Platelet Count Result 123 k/mm3 (150-375); Red Blood Count 4.53 M/mm3 (4.6-6.20); Red Cell Distribution Width 13.5 % (11.5-14.5); White Blood Count 5.1 K/mm3 (4.5-10.0)
[2021-10-03 15:58] LABS: Hemoglobin A1C 5.6 % (<5.7)
[2021-10-03 15:59] LABS: Alanine Aminotransferase 24 U/L (6-50); Albumin Level 4.5 g/dL (3.5-5.1); Alkaline Phosphatase 65 U/L (38-126); Anion Gap 9 mmol/L (8-16); Aspartate Amino Transferase 31 U/L (17-59); Bilirubin,Total 0.9 mg/dL (0.2-1.3); Blood Urea Nitrogen 25 mg/dL (9-20); Calcium 8.7 mg/dL (8.4-10.2); Carbon Dioxide 27 mmol/L (22-30); Chloride 104 mmol/L (98-107); Cholesterol 123 mg/dL (0-200); Estimated Glomerular Filt Rate 41; Glucose 101 mg/dL (65-110); HDL Direct 52 mg/dL; Magnesium 1.6 mg/dL (1.6-2.3); Phosphorus 3.2 mg/dL (2.5-4.5); Potassium 4.2 mmol/L (3.4-5.0); Sodium 140 mmol/L (137-145); Triglycerides 82 mg/dL (<150)
[2021-10-03 16:10] LABS: LDL Cholesterol Direct 43 mg/dL
[2021-10-03 16:11] LABS: Parathyroid Intact 91.4 pg/mL (7.5-53.5)
[2021-10-03 16:16] LABS: Microalbumin Urine Random 15.6 mg/L (0-16.7)
[2021-10-03 16:17] LABS: Vitamin D 25 Hydroxy 71.9 ng/mL
[2021-10-03 16:20] LABS: Free T4 Free Thyroxine 1.16 ng/mL (0.78-2.19)
[2021-10-03 16:30] LABS: Thyroid Stimulating Hormone 0.503 uIU/mL (0.465-4.680)
== END 2021-10-03 14:51 | disposition home or self-care (01) ==
PROVIDERS: PCP Internal Medicine; Referring Provider Internal Medicine Nephrology; Visit Provider Internal Medicine Endocrinology, Diabetes & Metabolism
DX: E11.9 Type 2 diabetes mellitus without complications (principal); E78.2 Mixed hyperlipidemia; N18.30 Chronic kidney disease, stage 3 unspecified; I12.9 Hypertensive chronic kidney disease with stage 1 through stage 4 chronic kidney disease, or unspecified chronic kidney disease; K70.2 Alcoholic fibrosis and sclerosis of liver; I85.10 Secondary esophageal varices without bleeding; I73.9 Peripheral vascular disease, unspecified; I63.9 Cerebral infarction, unspecified; E11.22 Type 2 diabetes mellitus with diabetic chronic kidney disease; E78.00 Pure hypercholesterolemia, unspecified; Z72.0 Tobacco use
CPT/HCPCS: 36415; 76705; 80053; 80061; 82043; 82306; 82728; 83036; 83735; 83970; 84100; 84439; 84443; 85025; 85055

== ENCOUNTER 2022-04-05 09:29 | Outpatient (CLI) | payer MEDICARE, SELFPAY ==
[2022-04-05 10:47] LABS: Appearance Urine Clear (Clear); Bilirubin Urine Negative (Negative); Blood Urine Trace-intact (Negative); Color Urine Yellow (Yellow); Glucose Urine UA Negative (Negative); Ketones Urine Negative (Negative); Leukocyte Esterase Ur Negative LEU/UL (NEGATIVE); Nitrate Urine Negative (Negative); Protein Urine Trace mg/dL (Negative)
[2022-04-05 10:51] LABS: Basophils Percent Auto 0.5 % (0.2-1.2); Eosinophils Absolute Auto 0.1 K/mm3 (0-0.3); Eosinophils Percent Auto 2.6 % (0-4.4); Hematocrit 42.9 % (42.0-52.0); Immature Granulocyte Absolute 0.04 K/mm3 (0.00-0.031); Immature Granulocyte Percent A 0.7 % (0-0.5); Immature Platelet Fraction Pct 5.5 % (0.9-11.2); Lymphocytes Absolute Auto 1.37 K/mm3 (0.9-3.2); Mean Corpuscular Hemoglobin 32.7 pg (26-34); Mean Corpuscular Volume 93.5 fl (80-100); Mean Platelet Volume 9.7 fl (7.4-10.4); Monocytes Absolute Auto 0.5 K/mm3 (0.1-0.6); Monocytes Percent Auto 8.6 % (2.6-8.5); Neutrophils Absolute Auto 3.4 K/mm3 (1.3-6.7); Neutrophils Percent Auto 62.6 % (45.5-73.1); Platelet Count Result 135 k/mm3 (150-375); Red Blood Count 4.59 M/mm3 (4.6-6.20); Red Cell Distribution Width 13.2 % (11.5-14.5); White Blood Count 5.5 K/mm3 (4.5-10.0)
[2022-04-05 10:58] LABS: Mucus Urine Rare /lpf; RBC Urine 0-2 /hpf (0-2)
[2022-04-05 10:59] LABS: Alanine Aminotransferase 31 U/L (6-50); Albumin Level 4.1 g/dL (3.5-5.1); Alkaline Phosphatase 61 U/L (38-126); Anion Gap 6 mmol/L (8-16); Aspartate Amino Transferase 31 U/L (17-59); Bilirubin,Total 0.9 mg/dL (0.2-1.3); Blood Urea Nitrogen 23 mg/dL (9-20); Calcium 8.5 mg/dL (8.4-10.2); Carbon Dioxide 27 mmol/L (22-30); Chloride 104 mmol/L (98-107); Cholesterol 131 mg/dL (0-200); Estimated Glomerular Filt Rate 47; Glucose 103 mg/dL (65-110); HDL Direct 45 mg/dL; Magnesium 1.4 mg/dL (1.6-2.3); Phosphorus 4.3 mg/dL (2.5-4.5); Potassium 4.8 mmol/L (3.4-5.0); Sodium 137 mmol/L (137-145); Triglycerides 63 mg/dL (<150)
[2022-04-05 11:09] LABS: Add Urine Microscopic? YES
[2022-04-05 11:09] LABS: Parathyroid Intact 95.1 pg/mL (7.5-53.5)
[2022-04-05 11:10] LABS: LDL Cholesterol Direct 63 mg/dL
[2022-04-05 11:23] LABS: Creatinine Urine 181.1 mg/dL; Total Protein Urine Random 13 mg/dL; Ur Ttl Prot Creatinine Ratio 0.07 mg/mg (0-0.20)
[2022-04-05 11:27] LABS: MALB Creatinine Ratio 22.9 mg/g (0-30); Microalbumin Urine Random 41.4 mg/L (0-16.7)
[2022-04-05 11:29] LABS: Thyroid Stimulating Hormone 0.867 uIU/mL (0.465-4.680)
[2022-04-05 13:23] LABS: Vitamin D 25 Hydroxy 46.8 ng/mL
== END 2022-04-05 09:30 | disposition home or self-care (01) ==
PROVIDERS: PCP Internal Medicine; Visit Provider Internal Medicine
DX: K70.2 Alcoholic fibrosis and sclerosis of liver (principal); I85.10 Secondary esophageal varices without bleeding; I63.9 Cerebral infarction, unspecified; I73.9 Peripheral vascular disease, unspecified; E11.22 Type 2 diabetes mellitus with diabetic chronic kidney disease; Z72.0 Tobacco use; I12.9 Hypertensive chronic kidney disease with stage 1 through stage 4 chronic kidney disease, or unspecified chronic kidney disease; N18.30 Chronic kidney disease, stage 3 unspecified
CPT/HCPCS: 36415; 80053; 80061; 81001; 82043; 82306; 82570; 83735; 83970; 84100; 84156; 84439; 84443; 85025; 85055

== ENCOUNTER 2022-04-26 10:58 | Outpatient (CLI) | payer MEDICARE, SELFPAY | END 2022-04-26 10:59 | disposition home or self-care (01) | LOC: ANHLAB 11:01 | PROVIDERS: PCP Internal Medicine; Visit Provider Internal Medicine | DX: Z12.5 Encounter for screening for malignant neoplasm of prostate (principal) | CPT/HCPCS: 36415; 84153; G0103 ==

== ENCOUNTER 2022-05-19 14:10 | Outpatient (CLI) | payer MEDICARE, SELFPAY ==
[2022-05-19 15:04] LABS: Alanine Aminotransferase 41 U/L (6-50); Albumin Level 4.5 g/dL (3.5-5.1); Alkaline Phosphatase 65 U/L (38-126); Anion Gap 5 mmol/L (8-16); Aspartate Amino Transferase 37 U/L (17-59); Bilirubin,Total 0.8 mg/dL (0.2-1.3); Blood Urea Nitrogen 21 mg/dL (9-20); Calcium 9.1 mg/dL (8.4-10.2); Carbon Dioxide 29 mmol/L (22-30); Chloride 105 mmol/L (98-107); Cholesterol 132 mg/dL (0-200); Estimated Glomerular Filt Rate 51; Glucose 62 mg/dL (65-110); HDL Direct 54 mg/dL; Hemoglobin A1C 5.7 % (<5.7); Potassium 4.8 mmol/L (3.4-5.0); Sodium 139 mmol/L (137-145); Triglycerides 77 mg/dL (<150)
[2022-05-19 15:12] LABS: Creatinine Urine 69.2 mg/dL
[2022-05-19 15:14] LABS: LDL Cholesterol Direct 64 mg/dL
[2022-05-19 15:17] LABS: MALB Creatinine Ratio 83.5 mg/g (0-30); Microalbumin Urine Random 57.8 mg/L (0-16.7)
[2022-05-19 15:27] LABS: Free T4 Free Thyroxine 1.12 ng/mL (0.78-2.19)
[2022-05-19 17:07] LABS: Folic Acid 5.1 ng/mL (2.76->20)
== END 2022-05-19 14:11 | disposition home or self-care (01) ==
PROVIDERS: PCP Internal Medicine; Referring Provider Internal Medicine Endocrinology, Diabetes & Metabolism; Visit Provider Internal Medicine
DX: R79.89 Other specified abnormal findings of blood chemistry (principal); E11.9 Type 2 diabetes mellitus without complications; E78.5 Hyperlipidemia, unspecified
CPT/HCPCS: 36415; 80053; 80061; 82043; 82607; 82746; 83036; 84439; 84443

== ENCOUNTER 2022-08-31 10:30 | Outpatient (CLI) | payer MEDICARE, SELFPAY ==
--- NOTE | ~2022-08-31 | CT_ITS ---
EXAMINATION: CT sinus wo con DATE: 08/31/2022 10:46 INDICATION: Chronic sinusitis. TECHNIQUE: Computed tomography (CT) of the paranasal sinuses was performed without intravenous contra st. Iterative reconstruction technique was employed. The dose-length product was 283.55 mGy-cm. COMPARISON: Head CT 05/15/2018 FINDINGS: There is mild mucosal thickening in the frontal, bilateral ethmoid, and left maxillary sinu ses. There is extensive mucosal thickening in right maxillary sinus. There is thickening and sclerosi s of the almanza of right maxillary sinus, consistent with chronic sinusitis. Sphenoid sinus is clear. There is leftward deviation of the nasal septum. There is perforation of the nasal septum. There is c oncha bullosa involving the bilateral middle turbinates. The ostiomeatal units are occluded at the in fundibula and at right hiatus semilunaris. There are patent large accessory maxillary ostia bilateral ly. IMPRESSION: 1. Chronic sinusitis. 2. Leftward deviation of the nasal septum. Reviewed, dictated and finalized at location A.
== END 2022-08-31 10:31 ==
PROVIDERS: PCP Otolaryngology; Visit Provider Otolaryngology
DX: J32.9 Chronic sinusitis, unspecified (principal); J34.2 Deviated nasal septum
CPT/HCPCS: 70486

== ENCOUNTER 2022-09-27 09:48 | Outpatient (CLI) | payer MEDICARE, SELFPAY ==
--- NOTE | ~2022-09-27 | CT_ITS ---
CT of the Abdomen and Pelvis: Indication: History of bladder carcinoma Technique: 2.5 mm axial scans were obtained through the abdomen and pelvis prior to and following in travenous administration of 130 cc of Omnipaque 350. Dose reduction technique was used on this scan b y utilizing automated exposure control and iterative reconstruction technique. The dose-length produc t (DLP) was 2084.40 mGy-cm. COMPARISON: 06/06/2021 Findings: Scans through the lung bases are unremarkable. Suggestion of micronodular contour of liver. There is an apparent 1 cm filling defect within the left portal vein, suggestive of focal thrombus (series 7 images 48-49 for example). The spleen, pancreas, adrenals and kidneys are within normal limits. Small calcified gallstone present. Left upper quadran t varices are noted. There are atherosclerotic calcifications of the aorta. Kissing distal aortic danie nts are present. No lymphadenopathy. No bowel obstruction or bowel wall thickening. There is no evidence to suggest acute appendicitis. Images through the pelvis were performed. Urinary bladder unremarkable. Prostate gland and seminal ve sicles are unremarkable. No ascites. Avascular necrosis of the bilateral femoral heads similar to pr ior exam. Impression: No definite evidence for active malignancy or metastatic disease. Probable focal thrombus within the left portal vein, as detailed above. Possible subtle cirrhotic change of the liver with associated left upper quadrant varices. Cholelithiasis. Stable AVN of the bilateral femoral heads. Reviewed, dictated and finalized at [facility]. Impression: No definite evidence for active malignancy or metastatic disease. Probable focal thrombus within the left portal vein, as detailed above. Possible subtle cirrhotic change of the liver with associated left upper quadra nt varices. Cholelithiasis. Stable AVN of the bilateral femoral heads.
[2022-09-27 10:21] LABS: Estimated Glomerular Filt Rate 43
== END 2022-09-27 09:49 | disposition home or self-care (01) ==
PROVIDERS: PCP Internal Medicine; Visit Provider Urology
DX: C67.2 Malignant neoplasm of lateral wall of bladder (principal); K80.20 Calculus of gallbladder without cholecystitis without obstruction
CPT/HCPCS: 74178; Q9967

== ENCOUNTER 2023-01-04 10:45 | Outpatient (CLI) | payer MEDICARE, SELFPAY ==
--- NOTE | ~2023-01-04 | PE_ITS ---
EXAMINATION: PET skull to mid thigh DATE: 01/04/2023 12:43 INDICATION: Malignant neoplasm of bladder. TECHNIQUE: Blood glucose level was 119 mg/dL. 10.037 mCi of 18-fluorodeoxyglucose (18-FDG) was admini stered i.v. Low dose computed tomography (CT) images were acquired from the base of the brain to the proximal thighs for attenuation correction and anatomic localization. Automated exposure control was employed. Dose-length product (DLP) was 1045 mGy-cm. Positron emission tomography (PET) images were a cquired in the same distribution. COMPARISON: CT abdomen and pelvis 09/27/2022, chest CT 06/06/2021 FINDINGS: Head/neck: There is mucosal thickening in the paranasal sinuses. There is thickening and sclerosis of the almanza of the maxillary sinuses, consistent with chronic sinusitis. There are no pathologically e nlarged lymph nodes. Chest: There is mild emphysema. A calcified left lung nodule and calcified left hilar lymph nodes are consistent with old granulomatous disease. No pleural effusion. The heart size is normal. No pericar dial effusion. There are coronary artery calcifications. Abdomen/pelvis/proximal thighs: There is diffuse hepatic steatosis. There is liver surface nodularity , consistent with cirrhosis. There is increased activity in left portal vein. There is a gallbladder stone in the gallbladder, which is normal in size. The spleen, pancreas, adrenal glands, and kidneys are normal. There is a splenorenal venous shunt. There is calcified atherosclerosis of the aorta and many of the other arteries. There are stents in the common iliac arteries. There are bilateral inguin al hernias containing fat. There is diverticulosis of the colon without evidence of diverticulitis. T here are no dilated loops of bowel. There is mild periportal lymphadenopathy without increased activi ty, likely reactive. There is no free intraperitoneal fluid. There is no osseous malignancy. There is osteonecrosis of the femoral heads. IMPRESSION: 1. Cirrhosis of the liver with portal venous hypertension. 2. Increased activity in left portal vein, which may be inflammation given that the prior CT demonstr ated thrombosis. Malignancy is not excluded. Abdomen CT or MRI without and with contrast is recommend ed. Reviewed, dictated and finalized at location E. IMPRESSION: 1. Cirrhosis of the liver with portal venous hypertension. 2. Increased activity in left portal vein, which may be inflammation given that the prior CT demonstrated thrombosis. Malignancy is not excluded. Abdomen CT o r MRI without and with contrast is recommended.
[2023-01-04 11:12] LABS: Glucose Point of Care 119 mg/dl (65-105)
== END 2023-01-04 10:46 | disposition home or self-care (01) ==
PROVIDERS: PCP Internal Medicine; Visit Provider Internal Medicine Hematology & Oncology
DX: C67.9 Malignant neoplasm of bladder, unspecified (principal); K74.69 Other cirrhosis of liver
CPT/HCPCS: 78815; A9552

== ENCOUNTER 2023-01-27 13:44 | Outpatient (CLI) | payer MEDICARE, SELFPAY ==
--- NOTE | ~2023-01-27 | MR_ITS ---
EXAMINATION: MR abdomen wo/w con DATE: 01/27/2023 15:22 INDICATION: Liver mass TECHNIQUE: Magnetic resonance imaging (MRI) of the abdomen was performed without and with 18 mL Multi mally intravenous contrast. Sequences included coronal T2-weighted SS-FSE, coronal and axial FS 2D-F IESTA, axial STIR FSE, axial T2-weighted SS-FSE, axial T2-weighted FS SS-FSE, axial diffusion-weighte d SE, axial dual-echo T1-weighted FSPGR, and axial and coronal T1-weighted LAVA. Postcontrast axial T 1-weighted LAVA images were obtained in a time course. Postcontrast coronal T1-weighted LAVA images w ere obtained. COMPARISON: CT dated and PET/CT dated 01/14/2023 FINDINGS: Heart size is normal. No pericardial or pleural effusion. Small gallstone in the dependent neck of th e otherwise normal-appearing gallbladder. Pancreas, spleen, bilateral adrenal glands and kidneys are normal. Visualized portion of the bowels are unremarkable. There is metallic magnetic field artifact associated with a small metallic density in the supraumbilical anterior abdominal wall slightly to th e right of midline. No pathologically enlarged abdominal lymphadenopathy. Bone marrow signal is soni l throughout. There is subtle liver surface nodularity consistent with cirrhosis. Dilated splenorenal and gastrospl enic collateral vessels consistent with secondary portal venous hypertension. There is a 2.1 x 1.9 cm mass at the left side of the varinder hepatis which appears to obstruct the portal vein extending to se gments 4A and 4B of the liver. The lesion appears larger in caliber than the capitan grande band vessel, does not extend in a more tubular or branchlike pattern in the more distal vessels and appears demonstrates ri m enhancement along with more subtle central enhancement on the subtraction postcontrast images in co ntradistinction to the more distal nonopacified segmental and subsegmental portal veins which favors a vascularized neoplasm over bland thrombus. The lesion demonstrates restricted diffusion which can b e also seen with a few additional lesions scattered throughout the liver. There is a 2.6 x 1.9 cm reg ion demonstrating enhancement surrounding a 1.2 cm hypoenhancing nodule in in segment 4A. 7 mm lesion in segment 6 of the liver which demonstrates restricted diffusion and delayed peripheral rim enhance ment with central hypoenhancement. Couple additional lesions with subtle arterial phase enhancement a nd subtle restricted diffusion measuring 1.3 cm in segment 8 of the dome of the liver and 7 mm in seg ment 5 of the liver and which are not clearly evident on the more delayed phases of imaging. IMPRESSION: 1. A few scattered indeterminate hepatic lesions which are not clearly benign. Evaluation is complica sandip by the history of prior malignancy as well as underlying hepatic cirrhosis with differential incl uding both benign, primary malignant and metastatic etiologies. The most concerning lesion is the 2.1 x 1.9 cm mass at the left side of the varinder hepatis which appears to obstruct the portal vein extend ing into the medial segment of the left hepatic lobe which is concerning for malignancy. None of the lesions are readily amenable to percutaneous biopsy due to their location or small size and lack of v isible correlate on CT imaging. 2. Cholelithiasis. Reviewed, dictated and finalized at location A. COMMISSIONING TECHNICIAN IMPRESSION: 1. A few scattered indeterminate hepatic lesions which are not clearly benign. Evaluation is complicated by the history of prior malignancy as well as underly ing hepatic cirrhosis with differential including both benign, primary malignan t and metastatic etiologies. The most concerning lesion is the 2.1 x 1.9 cm mas s at the left side of the varinder hepatis which appears to obstruct the portal ve in extending into the medial
== END 2023-01-27 13:45 | disposition home or self-care (01) ==
PROVIDERS: PCP Internal Medicine; Visit Provider Internal Medicine Hematology & Oncology
DX: R16.0 Hepatomegaly, not elsewhere classified (principal); K80.20 Calculus of gallbladder without cholecystitis without obstruction
CPT/HCPCS: 74183; A9577

== ENCOUNTER 2023-01-30 13:23 | Outpatient (CLI) | payer MEDICARE, SELFPAY ==
[2023-02-03 16:57] LABS: Alpha Fetoprotein Tumor Marker 2357.6 ng/mL (<6.1)
== END 2023-01-30 13:24 | disposition home or self-care (01) ==
LOC: ANHLAB 13:25
PROVIDERS: PCP Internal Medicine; Visit Provider Internal Medicine Hematology & Oncology
DX: R16.0 Hepatomegaly, not elsewhere classified (principal); K74.60 Unspecified cirrhosis of liver
CPT/HCPCS: 36415; 82105

== ENCOUNTER 2023-02-06 11:01 | Outpatient (CLI) | payer MEDICARE, SELFPAY ==
[2023-02-06 12:05] LABS: INR 2.2; Prothrombin Time 26.4 Seconds (11.1-14.7)
== END 2023-02-06 11:02 | disposition home or self-care (01) ==
PROVIDERS: PCP Internal Medicine; Visit Provider Internal Medicine Hematology & Oncology
DX: I81 Portal vein thrombosis (principal)
CPT/HCPCS: 36415; 85610

== ENCOUNTER 2023-02-12 05:43 | Outpatient (CLI) | payer MEDICARE, SELFPAY ==
--- NOTE | 2023-02-07 13:06 | PC.NURSE ---
Addendum entered by Deanna Ling RN 02/07/23 13:53: DONNELL STATES SHE SPOKE WITH DR ENG AND RADIOLOGIST- PT MADE AWARE THAT TODAY IS THE LAST DOSE FOR WARFARIN PER DONNELL Original Note: Pre Radiology instructions Report to the outpatient [facility] on date 02/12/23 at time _0900 for procedure Time: _1100___ YOU MAY BE MONITORED AT HOSPITAL FOR UP TO 4 HOURS AFTER YOUR PROCEDURE. A visitor will be allowed to accompany the patient into the hospital. You and your visitor will be asked to self-screen and do not enter if you have any COVID symptoms. A mask is OPTIONAL within the hospital. Patients are to have no food or drink 6 hours prior to procedure time Driving will be restricted after the procedure, you must have a person to drive you home. Labs will be drawn in preop area and once reviewed, you will be taken to radiology area for procedure. When the procedure is completed, you will be taken to outpatient where you will be monitored for several hours. You may have one visitor in this area. Other than holding anti-coagulants, patient may take other medication(s) as scheduled. Prior to your appointment date patients are instructed to hold anti-coagulants after discussing with ordering provider to stop. If unable to discontinue anti-coagulants please notify radiologist. ? No aspirin or warfarin (Coumadin) for 7 days prior to the procedure. ? No clopidogrel (Plavix), ticagrelor (Brilinta), prasugrel (Effient) or dabigatran (Pradaxa) for 5 days prior to the procedure. ? No rivaroxaban (Xarelto), apixaban (Eliquis), dipyridamole (Aggrenox or Persantine) or cilostazol (Pletal) for 2 days prior to the procedure. Medications to discontinue per physician: _ASPIRIN 7 DAYS PRE OP LAST DOSE 02/04/[address] ENG HOLD WARFARIN 3 DAYS PREOP. SPOKE WITH DONNELL FROM RADIOLOGY TO MAKE AWARE Date to take last dose: Please leave all valuables, including medications, at home the day of procedure. The hospital will not accept responsibility for valuables. Wear comfortable, loose fitting clothing.? Follow any additional instructions given to you from ordering provider. Telephone instructions given to _PT and asked if any additional questions and then verbalized understanding. Patient advised to call scheduling provider office or registration scheduling [phone] if any additional questions.
[2023-02-07 13:15] VITALS: BMI 27.8
[2023-02-12] VITALS (12 sets, daily range): BP systolic 121–144; BP diastolic 53–101; PULSE 58–64; RESP 14–16; TEMP 36.3; O2SAT 99–100
--- NOTE | ~2023-02-12 | CT_ITS ---
EXAMINATION: CT biopsy liver DATE: 02/12/2023 12:31 INDICATION: Liver mass TECHNIQUE: The procedure including the risks and benefits was discussed with the patient. Risks discu ssed included bleeding and infection. The patient understood the risks and agreed to proceed. The sk in overlying the liver was prepped and draped in usual sterile fashion. Anesthetic was administered with 1% lidocaine subcutaneously. A, 18 gauge outer needle was advanced under CT guidance to the les ion of interest. A 20 gauge core biopsy needle was then advanced into the lesion. 7 core biopsy speci mens were obtained. The outer needle was removed and the entry site was cleaned and dressed. There w ere no immediate complications. The dose-length product was 357.07 mGy-cm. FINDINGS: CT images demonstrate the outer needle tip adjacent to an approximately 2.1 x 1.7 cm nodule extending to the anterior left varinder hepatis. IMPRESSION: 1. Successful CT-guided biopsy of an approximately 2.1 x 1.7 cm nodule at the anterior left varinder hep atis. Reviewed, dictated and finalized at location A. P METAL BURNER IMPRESSION: 1. Successful CT-guided biopsy of an approximately 2.1 x 1.7 cm nodule at the a nterior left varinder hepatis.
[2023-02-12 09:54] LABS: Immature Platelet Fraction Pct 6.2 % (0.9-11.2); Mean Platelet Volume 10.4 fl (7.4-10.4); Platelet Count Result 112 k/mm3 (150-375)
[2023-02-12 10:10] LABS: INR 1.1; Prothrombin Time 14.6 Seconds (11.1-14.7)
[2023-02-12 13:02] LABS: Glucose Point of Care 114 mg/dl (65-105)
== END 2023-02-12 16:31 | disposition home or self-care (01) ==
PROVIDERS: PCP Internal Medicine; Referring Provider Internal Medicine Hematology & Oncology; Visit Provider Radiology Diagnostic Radiology
DX: K76.9 Liver disease, unspecified (principal); C22.8 Malignant neoplasm of liver, primary, unspecified as to type
CPT/HCPCS: 36415; 47000; 77012; 82948; 85049; 85055; 85610; 88307; 88312; 88313; 88342

== ENCOUNTER 2023-02-22 11:03 | Outpatient (CLI) | payer MEDICARE, SELFPAY ==
[2023-02-22 11:21] LABS: Basophils Percent Auto 0.4 % (0.2-1.2); Eosinophils Absolute Auto 0.1 K/mm3 (0-0.3); Eosinophils Percent Auto 1.5 % (0-4.4); Hemoglobin 15.2 g/dL (14.0-18.0); Immature Granulocyte Absolute 0.08 K/mm3 (0.00-0.031); Lymphocytes Absolute Auto 1.49 K/mm3 (0.9-3.2); Lymphocytes Percent Auto 18.6 % (18.3-44.2); Mean Corpuscular HGB Conc 33.8 g/dl (32-36); Mean Corpuscular Hemoglobin 32.5 pg (26-34); Mean Corpuscular Volume 96.2 fl (80-100); Mean Platelet Volume 9.6 fl (7.4-10.4); Monocytes Absolute Auto 0.6 K/mm3 (0.1-0.6); Monocytes Percent Auto 7.6 % (2.6-8.5); Neutrophils Absolute Auto 5.7 K/mm3 (1.3-6.7); Neutrophils Percent Auto 70.9 % (45.5-73.1); Platelet Count Result 148 k/mm3 (150-375); Red Blood Count 4.68 M/mm3 (4.6-6.20); Red Cell Distribution Width 12.8 % (11.5-14.5)
[2023-02-22 16:36] LABS: Alanine Aminotransferase 36 U/L (6-50); Albumin Level 4.1 g/dL (3.5-5.1); Alkaline Phosphatase 86 U/L (38-126); Anion Gap 6 mmol/L (8-16); Aspartate Amino Transferase 28 U/L (17-59); Bilirubin,Total 0.8 mg/dL (0.2-1.3); Blood Urea Nitrogen 28 mg/dL (9-20); Carbon Dioxide 30 mmol/L (22-30); Chloride 103 mmol/L (98-107); Estimated Glomerular Filt Rate 43; Glucose 74 mg/dL (65-110); Potassium 4.8 mmol/L (3.4-5.0); Sodium 139 mmol/L (137-145)
[2023-02-22 16:39] LABS: INR 1.9; Prothrombin Time 22.8 Seconds (11.1-14.7)
== END 2023-02-22 11:04 | disposition home or self-care (01) ==
LOC: ANHLAB 11:04
PROVIDERS: Student in an Organized Health Care Education/Training Program; PCP Internal Medicine; Visit Provider Internal Medicine Hematology & Oncology
DX: I81 Portal vein thrombosis (principal)
CPT/HCPCS: 36415; 80053; 85025; 85610

== ENCOUNTER 2023-03-26 11:37 | Outpatient (CLI) | payer MEDICARE, SELFPAY ==
[2023-03-26 14:26] LABS: Hepatitis B Surface Antigen Negative (Negative)
[2023-03-28 12:55] LABS: NIL 0.02 IU/mL; Quantiferon TB Plus, 1T NEGATIVE (NEGATIVE); TB1-NIL 0.01 IU/mL; TB2-NIL 0.01 IU/mL
== END 2023-03-26 11:38 | disposition home or self-care (01) ==
LOC: ANHLAB 11:41
PROVIDERS: Student in an Organized Health Care Education/Training Program; Visit Provider Internal Medicine Hematology & Oncology
DX: Z11.59 Encounter for screening for other viral diseases (principal)
CPT/HCPCS: 36415; 86480; 87340

== ENCOUNTER 2023-04-02 02:26 | Day surgery (SDC) | payer MEDICARE, SELFPAY ==
[2023-03-28 15:02] VITALS: BMI 28.5
--- NOTE | 2023-03-28 15:27 | PC.NURSE ---
Report to the Outpatient Waiting Room, entrance under the green pavilion located off [facility], at time __11:00AM on date __04/02/23 . Planned Procedure Time: ___1:00PM . Time changes happen often and if your time is changed the preop area will call you the afternoon before. - You and your visitor will be asked to self-screen and do not enter if you have any COVID symptoms. - A mask is optional within the hospital at this time. Patients may have clear liquids (water, carbonated beverages, clear teas, apple juice) until 3 hours prior to surgery with a maximum of 20 ounces. - No food from midnight until time of surgery. Take the following medications with a SIP of water the morning of surgery: __AMLODIPINE, NADOLOL, PREGABALIN, ADVAIR DISKUS INHALER. ALBUTEROL INHALER NEEDED DO NOT STOP ANY OF YOUR OTHER PRESCRIPTION MEDICATIONS PRIOR TO SURGERY ?EXCEPT THE FOLLOWING Medications to discontinue per physician ____HOLD COUMADIN 5 DAYS PRE-OP PER DR NUGENT(PER PATIENT)- LAST DOSE 03/27/23. HOLD ALL VITAMINS/SUPPLEMENTS 3 DAYS PRE-OP PER ANESTHESIA- LAST DOSE 04/09/23. Please no make-up, nail yakut, hairspray, perfume, deodorant, or body powder the day of surgery. No jewelry (including any body piercings) or valuables the day of surgery, leave them at home. Please take a shower or bath the night before, or the morning of, surgery with an antibacterial soap. Wear comfortable, loose fitting clothing. - Jewelry must be removed prior to entering the operating room. Rings and piercings that are not removed may be cut off. - The hospital will not accept responsibility for valuables. - Please leave all valuables, including medications, at home the day of surgery. If you are going home after surgery, a licensed recycle driver must drive you home. - NO public transportation without another adult if you receive anesthesia. - We recommend that an adult stay with you for 24 hours following discharge. - We also recommend that you do not drive, make important decision, drink alcoholic beverages, or take any drugs that were not prescribed by your health care provider for at least 24 hours after your discharge time. Follow any additional instructions given to you from your surgeon. If you or anyone in your household have experienced Covid symptoms in the past week, please notify your surgeon or the nurse liaison at the phone number below for possible testing. Telephone instructions given to ___PATIENT and asked if any additional questions and then verbalized understanding. Patient advised to call surgeon office or pre surgery nurse liaison [phone] if any additional questions.
--- NOTE | ~2023-04-02 | XR_ITS ---
EXAMINATION: XR fl guide central line place DATE: 04/02/2023 14:00 TECHNICAL PROJECT MANAGER INDICATION: INSERT SHARRI CATH . TECHNIQUE: 1 fluoroscopic images of the chest were obtained during Port-A-Cath insertion performed by the surgeon. I was not present in the operating room. Fluoroscopy exposure time was 22.5 seconds. r Kerma 6.1045 mGy. DAP 0.1210 mGym2. COMPARISON: None FINDINGS: Catheter tip projecting over the cavoatrial junction/proximal right atrium. IMPRESSION: Fluoroscopic documentation of Port-A-Cath insertion. Please refer to the operative note for complete procedural details . Reviewed, dictated and finalized at location K. NICAL PROJECT MANAGER IMPRESSION: Fluoroscopic documentation of Port-A-Cath insertion. Please refer to the operat kristina note for complete procedural details .
--- NOTE | ~2023-04-02 | XR_ITS ---
EXAMINATION: XR chest port-a-cath/central DATE: 04/02/2023 14:55 INDICATION: Port catheter insertion TECHNIQUE: frontal view of the chest was obtained. COMPARISON: Chest radiograph dated chest CT dated 06/06/2021 FINDINGS: Right internal jugular central venous port catheter with distal tip at the caudal superior vena cava. A catheter demonstrates a subtle undulation of its course pass between the first rib and right clavi jere but with no evident flattening of the catheter or angulation catheter wall. Lungs are clear with no focal airspace opacities, pulmonary edema, pleural effusion or pneumothorax. The cardiomediastinal silhouette is normal. Visualized bones and soft tissues are unremarkable. IMPRESSION: 1. Right subclavian central venous port catheter with distal tip at the caudal superior vena cava sub tle undulation in the course of the catheter but no evident flattening were it passed between the fir st rib and clavicle. 2. No acute cardiopulmonary disease. Reviewed, dictated and finalized at location A. AGE [employer] IMPRESSION: 1. Right subclavian central venous port catheter with distal tip at the caudal superior vena cava subtle undulation in the course of the catheter but no evide nt flattening were it passed between the first rib and clavicle. 2. No acute cardiopulmonary disease.
[2023-04-02 11:15] VITALS: BP 124/59; PULSE 62; RESP 14; TEMP 36.2; O2SAT 100
[2023-04-02 11:29] LABS: Glucose Point of Care 104 mg/dl (65-105)
--- NOTE | 2023-04-02 12:18 | WPDANESEPPF ---
Anes - Initial Pre Proc Eval Procedure: Operation Date: 04/02/23 12:00 Proposed Procedures p Insertion [place] Cath - Warren Aguilar MD Date/Time: 04/02/23 12:18 Surgeon: Warren Aguilar MD Pre Op Diagnosis: hepato cancer (liver) Patient Data Age: 67 Gender: M Height: 1.8 m Weight: 93 kg Allergies Allergy/AdvReac Type Severity Reaction Status Date / Time Penicillins Allergy Unknown Unknown Verified 03/28/23 14:53 doxycycline Allergy Rash Verified 03/28/23 14:53 torsemide Allergy Rash Verified 03/28/23 14:53 codeine AdvReac Unknown NAUSEA Verified 03/28/23 14:53 Home Medications Medication Instructions Recorded Confirmed Type aspirin 81 mg tablet,delayed 81 mg PO DAILY 05/23/21 03/28/23 History release atorvastatin 20 mg tablet See Rx Instructions .Route .COMPLEX 05/23/21 03/28/23 History insulin aspart (niacinamide) See Protocol subcut TID 05/23/21 03/28/23 History (U-100) 100 unit/mL subcutaneous solution (Fiasp U-100 Insulin) insulin degludec 100 unit/mL 50 unit subcut HS 05/23/21 03/28/23 History subcutaneous solution (Tresiba U-100 Insulin) nadolol 40 mg tablet 40 mg PO QAM 05/23/21 03/28/23 History pantoprazole 40 mg tablet,delayed 40 mg PO DAILY 05/23/21 03/28/23 History release pregabalin 50 mg capsule 50 mg PO TID 05/23/21 03/28/23 History zolpidem 10 mg tablet 10 mg PO HS 05/23/21 03/28/23 History amlodipine 5 mg tablet 5 mg PO QAM 02/07/23 03/28/23 History chlorthalidone 25 mg tablet 12.5 mg PO QAM 02/07/23 03/28/23 History magnesium 200 mg tablet 400 mg PO DAILY 02/07/23 03/28/23 History warfarin 5 mg tablet 5 mg PO DAILY 02/07/23 03/28/23 History acetaminophen 500 mg capsule 500 mg PO BID PRN Pain 03/28/23 03/28/23 History albuterol sulfate 90 mcg/actuation 1 puff inhalation Q4-6H PRN 03/28/23 03/28/23 History aerosol inhaler Shortness Of Breath Or Wheezing fluticasone 250 mcg-salmeterol 50 1 ea inhalation BID 03/28/23 03/28/23 History mcg/dose blistr powdr for inhalation (Advair Diskus) Laboratory Tests 04/02/23 11:26 POC Capillary Glucose 104 mg/dl (65-105) Patient hx anesthesia problems: none Family hx anesthesia problems: none Results Review: All pre-operative results and documents have been reviewed as part of the pre-operative evaluation. [facility] Family History Family History Mother Family history of respiratory disorder Father Family history of heart disease in male family member before age 55 Social History Social History Smoking packs per day: 1.5 Smoking cigarettes per day: 30.0 Years smoked: 50 Smoking pack-years: 75.00 Smoking status: Current every day smoker Tobacco type: cigarettes Additional smoking assessment comments: TAPERING DOWN TO 1 PACK/DAY CURRENTLY Alcohol intake: former Drinks per week: 2 Alcohol use details: QUIT 01/2023, HEAVY DRINKER FOR 30-40 YEARS Living arrangements: with family Additional living arrangements comments: Spiritual care concerns: No Anes - Eval Final PreProcedure Day of Procedure 04/02/23 12:18 Patient weight: overweight Heart: regular rate and rhythm Lungs: decreased breath sounds Airway: Mallampati scale class II Neurological: alert and oriented Last oral intake: >/= 8 hours ASA classification: IV Emergent: no Anesthetic plan: proceed Anesthesia type and monitoring: general GIVS and standard monitoring Results Review: All pre-operative results and documents have been reviewed as part of the pre-operative evaluation. Informed Consent: The patient's anesthetic plan and its attendant risks and benefits were discussed with the patient/family/POA. Questions were solicited and answers provided to the satisfaction of the patient/family/POA.
[2023-04-02 12:49] VITALS: BMI 27.9
[2023-04-02 12:53] LABS: INR 1.2; Prothrombin Time 15.7 Seconds (11.1-14.7)
[2023-04-02 12:54] LABS: Partial Thromboplastin Time 37.1 SECONDS (22.3-36.8)
--- NOTE | 2023-04-02 13:19 | PM.IMHP ---
H&P: HPI History of Present Illness Date/Time: 04/02/23 13:19 Chief Complaint: Hepatocellular carcinoma Narrative: Patient is a 67-year-old gentleman who was recently diagnosed with hepatocellular carcinoma for biopsy. He is undergo chemotherapy treatments and presents now for placement of varinder catheter for chemo treatment. Not a previous port placed nor at the had a prior central line in the neck or subclavian regions. Review of Systems Review of Systems: The remainder of the review of systems to include constitutional, HEENT, cardiovascular, respiratory, GI, , integumentary, musculoskeletal, endocrine, immunologic, hematologic, psychiatric, and neurologic are all negative except for which is mentioned above in the HPI. [facility] Family History Family History Mother Family history of respiratory disorder Father Family history of heart disease in male family member before age 55 Social History Social History Smoking packs per day: 1.5 Smoking cigarettes per day: 30.0 Years smoked: 50 Smoking pack-years: 75.00 Smoking status: Current every day smoker Tobacco type: cigarettes Additional smoking assessment comments: TAPERING DOWN TO 1 PACK/DAY CURRENTLY Alcohol intake: former Drinks per week: 2 Alcohol use details: QUIT 01/2023, HEAVY DRINKER FOR 30-40 YEARS Living arrangements: with family Additional living arrangements comments: Spiritual care concerns: No Meds Home Medications and Allergies Home Medications Medication Instructions Recorded Confirmed Type aspirin 81 mg tablet,delayed 81 mg PO DAILY 05/23/21 04/02/23 History release atorvastatin 20 mg tablet See Rx Instructions .Route .COMPLEX 05/23/21 04/02/23 History insulin aspart (niacinamide) See Protocol subcut TID 05/23/21 04/02/23 History (U-100) 100 unit/mL subcutaneous solution (Fiasp U-100 Insulin) insulin degludec 100 unit/mL 50 unit subcut HS 05/23/21 04/02/23 History subcutaneous solution (Tresiba U-100 Insulin) nadolol 40 mg tablet 40 mg PO QAM 05/23/21 04/02/23 History pantoprazole 40 mg tablet,delayed 40 mg PO DAILY 05/23/21 04/02/23 History release pregabalin 50 mg capsule 50 mg PO TID 05/23/21 04/02/23 History zolpidem 10 mg tablet 10 mg PO HS 05/23/21 04/02/23 History amlodipine 5 mg tablet 5 mg PO QAM 02/07/23 04/02/23 History chlorthalidone 25 mg tablet 12.5 mg PO QAM 02/07/23 04/02/23 History magnesium 200 mg tablet 400 mg PO DAILY 02/07/23 04/02/23 History warfarin 5 mg tablet 5 mg PO DAILY 02/07/23 04/02/23 History acetaminophen 500 mg capsule 500 mg PO BID PRN Pain 03/28/23 04/02/23 History albuterol sulfate 90 mcg/actuation 1 puff inhalation Q4-6H PRN 03/28/23 04/02/23 History aerosol inhaler Shortness Of Breath Or Wheezing fluticasone 250 mcg-salmeterol 50 1 ea inhalation BID 03/28/23 04/02/23 History mcg/dose blistr powdr for inhalation (Advair Diskus) Allergies Allergy/AdvReac Type Severity Reaction Status Date / Time Penicillins Allergy Unknown Unknown Verified 04/02/23 13:11 doxycycline Allergy Rash Verified 04/02/23 13:11 torsemide Allergy Rash Verified 04/02/23 13:11 codeine AdvReac Unknown NAUSEA Verified 04/02/23 13:11 Vital Signs Vital Signs - 24 hr 04/02/23 11:15 Temperature 36.2 C L Pulse Rate 62 Respiratory Rate 14 Blood Pressure 124/59 L Pulse Oximetry 100 Oxygen Delivery Room Air Exam Const: General: comfortable and no acute distress HENMT: Ears: TM's normal bilaterally Face/Nose/Sinus: Normal nares present Mouth: Yes moist mucous membranes Eyes: General: appearance normal, both eyes and all related structures Sclera: sclerae normal Pupils: Equal, round and reactive pupils present EOM: EOMs intact bilaterally Neck: Neck: supple and no JVD Resp: Effort & Inspection: normal respiratory effort Auscultation: clear to aus
--- NOTE | 2023-04-02 13:23 | WPDHPUPDATE1 ---
History and Physical Update Update Date/Time: 04/02/23 13:23 History and Physical has been reviewed, including an updated exam of the patient. There are NO changes in the patient's condition. Risks, benefits, and alternatives have been discussed and questions answered. Patient agrees to proceed with procedure.
[2023-04-02] MEDS: LACTATED RINGERS 1,000 ML 30 ML IV CONT (13:30)
[2023-04-02] MEDS: ceFAZolin 2 GM/D5W 50 ML 2 GM/50 ML BAG IVPB (13:46)
[2023-04-02] MEDS: LIDO 1%/EPINEPHRINE 1:100,000 50 ML VIAL 15 ML INFILTRATE (14:04)
[2023-04-02] MEDS: HEPARIN SODIUM 5,000 UNITS/ML VIAL 5000 UNITS IRRIGATION (14:05)
[2023-04-02] MEDS: HEPARIN SODIUM 1,000 UNITS/ML VIAL 1000 UNITS IV PUSH (14:05)
[2023-04-02 14:43] VITALS: BP 116/60; PULSE 68; RESP 20; O2SAT 95
--- NOTE | 2023-04-02 14:51 | PM.OP ---
Procedure Note - Brief Procedure Note - Brief Date of procedure: 04/02/23 hepato cancer (liver) Post-op diagnosis: Same Procedure performed: Placement of right subclavian varinder catheter intraoperative fluoroscopy Surgeon: Warren Aguilar MD Anesthesia: MAC Implants: 9.6 Malagasy single-lumen catheter attached to Smart Port Estimated blood loss (mL): 10 Drains: No Packing: No Pathology: None sent Complications: No immediate complications Condition: Stable Disposition: PACU
[2023-04-02 15:10] VITALS: BP 139/64; PULSE 60; RESP 20
[2023-04-02 15:30] VITALS: BP 139/64; PULSE 60; RESP 20
--- NOTE | 2023-04-02 19:57 | W.PM.PROC2 ---
Procedure Note - Detailed Date of Procedure 04/02/23 Pre-op Diagnosis hepato cancer (liver) Post-op Diagnosis Same Procedure Performed Placement of right subclavian vein single-lumen port a catheter with intraoperative fluoroscopy. Surgeon Warren Aguilar MD Regional Program Manager SAYDA Campbell Anesthesia MAC Indications Patient is a 67-year-old gentleman who the head liver mass biopsied and turned out to be hepatocellular carcinoma. He is to undergo chemotherapy treatments and presents now for placement varinder catheter. Findings None significant Description of Procedure After informed consent was obtained patient brought to the operating room placed supine position and LMA IV sedation was administered for anesthesia. A time-out was then performed correctly identifying the patient as well as procedure to be performed verifying he was given perioperative IV antibiotics. The bilateral upper anterior chest and neck was then prepped and draped in usual sterile fashion. I then used 0.5% Marcaine mixed with 1% lidocaine 50 50 mixture with some epinephrine injected just below the 3rd of the right clavicle. A transverse incision was then made the scalpel then dissection was carried down through the subcu tissue electrocautery. I then created a subcutaneous pocket just below the incision utilizing electrocautery and blunt finger dissection just above the anterior pectoralis fascia. I then placed the patient head-down Trendelenburg position and then percutaneously through this incision using a long 18gauge needle to cannulate the right subclavian vein on the 1st pass any difficulty. There was prompt return of dark venous appearing blood. A guidewire was then advanced through the needle into the right subclavian vein subsequently down into the right atrium of the heart. Intraoperative fluoroscopy was used to confirm the proper downward the tip of the guidewire. I then proceeded to advance a dilator breakaway sheath over the guidewire. The guidewire and dilator were removed leaving the sheath in place. A 9.6 Ghanaian single-lumen catheter was then advanced through the sheath into the right subclavian vein assessment down into the right atrium of the heart via the superior vena cava. The sheath was then torn away leaving the catheter in place. Intraoperative fluoroscopy was then used to visualize the tip of the catheter and then pulled back on the catheter external to the chest wall into the tip was pulled back to the atrial caval junction. I then cut the catheter to the appropriate length the skin level and attached to the Smart Port. Smart port was then secured in subcu port pocket on 3 sides utilizing a 3-0 Prolene suture. The pocket was irrigated sterile saline solution and was hemostatic. I then accessed the port with a Art needle and it shaggy back blood easily and was flushed with heparinized saline solution I then close incision utilizing interrupted 3-0 Vicryl sutures in subcutaneous tissues. The skin edges were approximated utilizing a running subcuticular 4-0 Monocryl suture. I then accessed the port percutaneously through the skin with a Art needle and again it aspirated blood easily and was flushed with 5000units of IV heparin. Incision was then cleaned and then skin glue was applied. The patient tolerated the procedure well no complications. All sponges, needles, and instrument counts were correct at the end procedure. EBL was _10__cc. The patient was awakened and taken to recovery in stable and satisfactory condition. Postprocedure chest x-ray was obtained there was no evidence pneumothorax with good position tip of the catheter in the distal superior vena cava to my reading. Final reading will be deferred to radiology reading. Implants 9.6 Ghanaian single-lumen catheter attached to Smart Port Estimated Blood Loss 10 Drains No Packing No Pathology None sent Complications No immediate complications Condition Stable Disposition PACU [facility]
== END 2023-04-02 15:31 | disposition home or self-care (01) ==
PROVIDERS: PCP Internal Medicine; Visit Provider Surgery
PROC: (CPT 36561; principal; 2023-04-02 12:00)
DX: C22.0 Liver cell carcinoma (principal); F17.210 Nicotine dependence, cigarettes, uncomplicated; Z79.82 Long term (current) use of aspirin; Z79.4 Long term (current) use of insulin; Z79.01 Long term (current) use of anticoagulants; Z79.51 Long term (current) use of inhaled steroids; Z82.49 Family history of ischemic heart disease and other diseases of the circulatory system
CPT/HCPCS: 36561; 36415; 77001; 82948; 85610; 85730; C1788; J0690; J1644; J2250; J2704; J3010; J7030; J7120

== ENCOUNTER 2023-06-29 08:59 | Outpatient (CLI) | payer MEDICARE, SELFPAY ==
--- NOTE | ~2023-06-29 | CT_ITS ---
EXAMINATION: CT abdomen pelvis w con DATE: 06/29/2023 09:34 INDICATION: Hepatic carcinoma. TECHNIQUE: Computed tomography (CT) of the abdomen and pelvis was performed with 100 cc Omnipaque 350 intravenous contrast. The dose-length product was 921.55 mGy-cm. Automated exposure control and iter ative reconstruction technique were employed. COMPARISON: MRI dated 01/27/[address] dated 09/27/2022 FINDINGS: Lung bases are unremarkable. Heart size normal. There is atherosclerosis of the aorta witho ut aneurysm. There is mild lymphadenopathy along the lesser curvature of the stomach. This is unchang ed from prior examination. There is an ill-defined area of geographic hypoperfusion of the left hepat ic lobe adjacent to the falciform ligament measuring approximately 6.2 x 2 cm greatest axial dimensio n, consistent with known hepatocellular carcinoma. There is a small hypodense lesion of the right hep atic lobe, image 33, too small to characterize. There are gallstones. There is a small amount of flui d surrounding the spleen. There is nodular appearance to the liver surface suggesting cirrhosis. The pancreas, adrenal glands and kidneys are unremarkable. There are mildly enlarged lymph nodes at the p aniket hepatis. The pancreas, adrenal glands and kidneys are unremarkable. Small fat-containing umbilic al hernia. Colonic diverticulosis without evidence for diverticulitis. No abnormal pelvic masses or f luid collections. No focal lytic or blastic lesions. IMPRESSION: 1. Ill-defined geographic mass of the left hepatic lobe adjacent to the falciform ligament with heter ogeneous enhancement, compatible with known malignancy. This mass measures approximately 6.2 x 2 cm g reatest axial dimension, although not well circumscribed. 2: Possible cirrhosis of the liver. 3: Cholelithiasis. 4: New small rim of fluid surrounding the spleen of uncertain etiology. Reviewed, dictated and finalized at location B. IMPRESSION: 1. Ill-defined geographic mass of the left hepatic lobe adjacent to the falcifo rm ligament with heterogeneous enhancement, compatible with known malignancy. T his mass measures approximately 6.2 x 2 cm greatest axial dimension, although n ot well circumscribed. 2: Possible cirrhosis of the liver. 3: Cholelithiasis. 4: New small rim of fluid surrounding the spleen of uncertain etiology.
[2023-06-29 09:28] LABS: Estimated Glomerular Filt Rate 47
== END 2023-06-29 09:00 | disposition home or self-care (01) ==
LOC: ANHIMG 09:01
PROVIDERS: PCP Internal Medicine; Visit Provider Internal Medicine Hematology & Oncology
DX: C22.0 Liver cell carcinoma (principal); K80.20 Calculus of gallbladder without cholecystitis without obstruction
CPT/HCPCS: 74177; Q9967

== ENCOUNTER 2023-07-24 14:33 | Emergency (ER) | payer MEDICARE, SELFPAY ==
--- NOTE | ~2023-07-24 | CT_ITS ---
EXAMINATION: CT abdomen pelvis w con DATE: 07/24/2023 17:44 INDICATION: LUQ pain, n/v TECHNIQUE: Computed tomography (CT) of the abdomen and pelvis was performed with 100 mL Omnipaque-350 intravenous contrast. Automated exposure control and iterative reconstruction technique were employe d. The dose-length product was 517.77 mGy-cm. COMPARISON: None. FINDINGS: Lower thorax: Coronary artery calcifications. Liver: Heterogeneous parenchymal enhancement in the lateral segment of left lobe. Stable associated s egmental portal vein thrombosis. Nodular liver border. Biliary/Gallbladder: Cholelithiasis. No gallbladder inflammation. No bile duct dilation. Pancreas: No mass or duct dilation. Spleen: Enlarged. Trace perisplenic fluid. Adrenals:No mass. Kidneys: No suspicious mass, obstructing stone, or hydronephrosis. GI tract: No small or large bowel dilation. Appendix is not confidently visualized. Diverticulosis wi thout diverticulitis. Mesentery/Peritoneum: No ascites, mass, or free air. Enlarged varinder hepatic lymph nodes. Retroperitoneum: No mass. Atherosclerotic abdominal aortic and/or arterial calcifications. Bilateral iliac stents. Pelvis: Pelvic organs are within normal limits. Soft Tissues: Small uncomplicated fat-containing umbilical and bilateral inguinal hernias. Subcutaneo us stranding, possibly representing an injection site in the left lower quadrant. Bones: No acute osseous finding. Bilateral femoral head AVN, stable. IMPRESSION: No acute abdominopelvic process detected. Cirrhotic changes. Heterogeneously enhancing area in the lateral segment of the left lobe may represe nt tumor, infarct, or a combination, grossly stable. Stable segmental left lobe portal venous thrombo sis. Stable varinder hepatic lymphadenopathy. Stable splenomegaly and small volume perisplenic fluid. Reviewed, dictated and finalized at location K. IMPRESSION: No acute abdominopelvic process detected. Cirrhotic changes. Heterogeneously enhancing area in the lateral segment of the left lobe may represent tumor, infarct, or a combination, grossly stable. Stab le segmental left lobe portal venous thrombosis. Stable varinder hepatic lymphaden opathy. Stable splenomegaly and small volume perisplenic fluid.
[2023-07-24 14:35] VITALS: BP 102/77; PULSE 68; RESP 23; TEMP 36.2; O2SAT 99
[2023-07-24 16:45] LABS: Basophils Percent Auto 0.4 % (0.2-1.2); Eosinophils Absolute Auto 0.3 K/mm3 (0-0.3); Eosinophils Percent Auto 5.8 % (0-4.4); Hematocrit 35.4 % (42.0-52.0); Hemoglobin 12.6 g/dL (14.0-18.0); Immature Granulocyte Absolute 0.03 K/mm3 (0.00-0.031); Immature Granulocyte Percent A 0.7 % (0-0.5); Immature Platelet Fraction Pct 3.9 % (0.9-11.2); Lymphocytes Percent Auto 11.1 % (18.3-44.2); Mean Corpuscular HGB Conc 35.6 g/dl (32-36); Mean Corpuscular Hemoglobin 31.3 pg (26-34); Mean Corpuscular Volume 87.8 fl (80-100); Mean Platelet Volume 9.4 fl (7.4-10.4); Monocytes Absolute Auto 0.7 K/mm3 (0.1-0.6); Monocytes Percent Auto 15.7 % (2.6-8.5); Neutrophils Percent Auto 66.3 % (45.5-73.1); Platelet Count Result 143 k/mm3 (150-375); Red Blood Count 4.03 M/mm3 (4.6-6.20); Red Cell Distribution Width 12.9 % (11.5-14.5); White Blood Count 4.5 K/mm3 (4.5-10.0)
[2023-07-24 16:46] LABS: Appearance Urine Clear (Clear); Bilirubin Urine Negative (Negative); Blood Urine Negative (Negative); Color Urine Dark Yellow (Yellow); Glucose Urine UA Negative (Negative); Ketones Urine Trace mg/dL (Negative); Leukocyte Esterase Ur Negative LEU/UL (Negative); Nitrate Urine Negative (Negative); Protein Urine Negative (Negative); Specific Grav Ur 1.025 (1.001-1.035)
[2023-07-24 16:55] LABS: Alanine Aminotransferase 14 U/L (6-50); Alkaline Phosphatase 90 U/L (38-126); Anion Gap 6 mmol/L (4-12); Aspartate Amino Transferase 28 U/L (17-59); Bilirubin,Total 1.2 mg/dL (0.2-1.3); Blood Urea Nitrogen 19 mg/dL (9-20); Calcium 8.6 mg/dL (8.4-10.2); Carbon Dioxide 25 mmol/L (22-30); Chloride 93 mmol/L (98-107); Estimated CRCL calculation 40 ml/min; Estimated Glomerular Filt Rate 40; Glucose 145 mg/dL (65-110); Lipase 114 U/L (23-300); Potassium 3.7 mmol/L (3.4-5.0); Sodium 124 mmol/L (137-145)
[2023-07-24 16:56] LABS: Add Urine Microscopic? YES
--- NOTE | 2023-07-24 17:12 | ED.ABDPAIN ---
HPI - Abdominal Pain General Chief Complaint: Abdominal Pain Stated Complaint: abd pain, nausea, vomiting Time Seen by Provider: 07/24/23 16:20 History of Present Illness HPI narrative: 68-year-old male presenting to the emergency department for evaluation of persistent nausea vomiting and generalized weakness. Patient is currently undergoing chemotherapy for liver cancer and is being followed by Dr. Cassidy. patient reports since Sunday he has had increased nausea and vomiting. Patient states he has also had increased right upper quadrant abdominal pain over Related Data Home Medications Medication Instructions Recorded Confirmed aspirin 81 mg tablet,delayed 81 mg PO DAILY 05/23/21 06/28/23 release atorvastatin 20 mg tablet See Rx Instructions .Route .COMPLEX 05/23/21 06/28/23 insulin aspart (niacinamide) See Protocol subcut TID 05/23/21 06/28/23 (U-100) 100 unit/mL subcutaneous solution (Fiasp U-100 Insulin) insulin degludec 100 unit/mL 50 unit subcut HS 05/23/21 06/28/23 subcutaneous solution (Tresiba U-100 Insulin) nadolol 40 mg tablet 40 mg PO QAM 05/23/21 06/28/23 pantoprazole 40 mg tablet,delayed 40 mg PO DAILY 05/23/21 06/28/23 release pregabalin 50 mg capsule 50 mg PO TID 05/23/21 06/28/23 zolpidem 10 mg tablet 10 mg PO HS 05/23/21 06/28/23 amlodipine 5 mg tablet 5 mg PO QAM 02/07/23 06/28/23 chlorthalidone 25 mg tablet 12.5 mg PO QAM 02/07/23 06/28/23 magnesium 200 mg tablet 400 mg PO DAILY 02/07/23 06/28/23 warfarin 5 mg tablet 5 mg PO DAILY 02/07/23 06/28/23 acetaminophen 500 mg capsule 500 mg PO BID PRN Pain 03/28/23 06/28/23 albuterol sulfate 90 mcg/actuation 1 puff inhalation Q4-6H PRN 03/28/23 06/28/23 aerosol inhaler Shortness Of Breath Or Wheezing fluticasone 250 mcg-salmeterol 50 1 ea inhalation BID 03/28/23 06/28/23 mcg/dose blistr powdr for inhalation (Advair Diskus) Allergies Allergy/AdvReac Type Severity Reaction Status Date / Time Penicillins Allergy Unknown Unknown Verified 06/28/23 11:36 doxycycline Allergy Rash Verified 06/28/23 11:36 torsemide Allergy Rash Verified 06/28/23 11:36 codeine AdvReac Unknown NAUSEA Verified 06/28/23 11:36 Review of Systems Review of Systems: All systems reviewed & are unremarkable except as noted in HPI and below PMFSH Family History Family History Mother Family history of respiratory disorder Father Family history of heart disease in male family member before age 55 Social History Social History Smoking packs per day: 1.5 Smoking cigarettes per day: 30.0 Years smoked: 50 Smoking pack-years: 75.00 Smoking status: Current every day smoker Tobacco type: cigarettes Additional smoking assessment comments: TAPERING DOWN TO 1 PACK/DAY CURRENTLY Alcohol intake: former Drinks per week: 2 Alcohol use details: QUIT 01/2023, HEAVY DRINKER FOR 30-40 YEARS Living arrangements: with family Additional living arrangements comments: Spiritual care concerns: No Exam Narrative: APPEARANCE: Well appearing, no pain, no distress, well-nourished. HEAD: normocephalic, atraumatic. EYES: PERRLA/EOMI, conjunctivae clear. NOSE: Normal no drainage EARS:TMS clear with good light reflex. THROAT: Pharynx clear, no exudate. NECK: Supple. No adenopathy, no masses. RESPIRATORY: Airway patent, respirations nonlabored. Clear to auscultation bilaterally, no rales, rhonchi, wheezing. CARDIOVASCULAR: Regular rate and rhythm without murmurs rubs or gallops. ABDOMINAL: Soft, nontender, nondistended, normal bowel sounds MUSCULOSKELETAL: Moves all extremities. Strength/ROM intact, No edema, No calf tenderness. NEURO: Alert. Cranial nerves II through XII intact. Grossly intact SKIN: Warm, dry. Normal Color Course Vital Signs Vital signs: Vital Signs Temperature 97.1 F L 07/24/23 14:35 Pulse Rate 68 07/24/23 14:35
[2023-07-24 17:23] VITALS: PULSE 65; RESP 16; O2SAT 94
[2023-07-24] MEDS: ONDANSETRON INJ 4 MG/2 ML VIAL IV PUSH (17:27)
[2023-07-24] MEDS: SODIUM CHLORIDE 0.9% IV 1,000 ML 999 ML IV CONT (17:27)
[2023-07-24] MEDS: HYDROmorphone HCL INJ (*CRX) 1 MG/ML SYR 0.5 MG IV PUSH (17:27)
[2023-07-24] MEDS: METOCLOPRAMIDE HCL INJ 10 MG/2 ML VIAL IV PUSH (19:20)
[2023-07-24 19:26] VITALS: BP 124/81; PULSE 64; RESP 16; O2SAT 100
[2023-07-24] MEDS: HEPARIN SODIUM LOCK FLUSH 500 UNITS/5 ML VIAL IV PUSH (20:12)
== END 2023-07-24 20:17 | disposition home or self-care (01) ==
PROVIDERS: Physician Assistant; Emergency Provider Emergency Medicine; PCP Internal Medicine
DX: R11.2 Nausea with vomiting, unspecified (principal); R10.9 Unspecified abdominal pain; C22.8 Malignant neoplasm of liver, primary, unspecified as to type; E11.9 Type 2 diabetes mellitus without complications; F17.210 Nicotine dependence, cigarettes, uncomplicated; Z79.82 Long term (current) use of aspirin; Z79.4 Long term (current) use of insulin; Z79.01 Long term (current) use of anticoagulants; Z79.899 Other long term (current) drug therapy; Z79.60 Long term (current) use of unspecified immunomodulators and immunosuppressants; R16.1 Splenomegaly, not elsewhere classified
CPT/HCPCS: 36415; 74177; 80053; 81001; 83690; 85025; 85055; 96361; 96374; 96375; 99284; J1170; J1642; J2405; J2765; J7030; Q9967

== ENCOUNTER 2023-07-30 14:04 | Observation (INO) | payer MEDICARE, SELFPAY ==
[2023-07-30] VITALS (7 sets, daily range): BP systolic 104–144; BP diastolic 54–68; PULSE 65–71; RESP 16–18; TEMP 36.1–36.9; O2SAT 98–100
[2023-07-30 15:43] LABS: Basophils Percent Auto 0.6 % (0.2-1.2); Eosinophils Absolute Auto 0.2 K/mm3 (0-0.3); Hemoglobin 13.2 g/dL (14.0-18.0); Immature Granulocyte Absolute 0.01 K/mm3 (0.00-0.031); Immature Granulocyte Percent A 0.3 % (0-0.5); Lymphocytes Absolute Auto 0.47 K/mm3 (0.9-3.2); Lymphocytes Percent Auto 13.5 % (18.3-44.2); Mean Corpuscular HGB Conc 34.7 g/dl (32-36); Mean Corpuscular Hemoglobin 31.1 pg (26-34); Mean Corpuscular Volume 89.6 fl (80-100); Mean Platelet Volume 9.7 fl (7.4-10.4); Monocytes Absolute Auto 0.5 K/mm3 (0.1-0.6); Monocytes Percent Auto 13.5 % (2.6-8.5); Neutrophils Absolute Auto 2.3 K/mm3 (1.3-6.7); Neutrophils Percent Auto 66.1 % (45.5-73.1); Platelet Count Result 134 k/mm3 (150-375); Red Blood Count 4.24 M/mm3 (4.6-6.20); White Blood Count 3.5 K/mm3 (4.5-10.0)
[2023-07-30 15:55] LABS: Alanine Aminotransferase 12 U/L (6-50); Albumin Level 4.1 g/dL (3.5-5.1); Alkaline Phosphatase 85 U/L (38-126); Anion Gap 7 mmol/L (4-12); Aspartate Amino Transferase 24 U/L (17-59); Bilirubin,Total 1.1 mg/dL (0.2-1.3); Blood Urea Nitrogen 16 mg/dL (9-20); Calcium 8.9 mg/dL (8.4-10.2); Carbon Dioxide 25 mmol/L (22-30); Chloride 98 mmol/L (98-107); Estimated CRCL calculation 52 ml/min; Estimated Glomerular Filt Rate 55; Glucose 222 mg/dL (65-110); INR 2.1; Potassium 3.5 mmol/L (3.4-5.0); Prothrombin Time 24.5 Seconds (11.1-14.7); Sodium 130 mmol/L (137-145)
[2023-07-30 15:56] LABS: Partial Thromboplastin Time 61.3 Seconds (22.3-36.8)
--- NOTE | 2023-07-30 17:45 | ED.GIBLEED ---
HPI - GI Bleed General Chief complaint: GI Bleed Stated complaint: bloody stool Time Seen by Provider: 07/30/23 15:36 History of Present Illness HPI Narrative: Patient is a 60-year-old male with hepatocellular carcinoma who presents ER with rectal bleeding. He is anticoagulated on Coumadin. He reports large bright red bowel movement this morning that was also containing clots. No syncope. No additional bowel movements with blood. No issues with hemorrhoids. No constipation/straining. Related Data Home Medications Medication Instructions Recorded Confirmed aspirin 81 mg tablet,delayed 81 mg PO DAILY 05/23/21 06/28/23 release atorvastatin 20 mg tablet See Rx Instructions .Route .COMPLEX 05/23/21 06/28/23 insulin aspart (niacinamide) See Protocol subcut TID 05/23/21 06/28/23 (U-100) 100 unit/mL subcutaneous solution (Fiasp U-100 Insulin) insulin degludec 100 unit/mL 50 unit subcut HS 05/23/21 06/28/23 subcutaneous solution (Tresiba U-100 Insulin) nadolol 40 mg tablet 40 mg PO QAM 05/23/21 06/28/23 pantoprazole 40 mg tablet,delayed 40 mg PO DAILY 05/23/21 06/28/23 release pregabalin 50 mg capsule 50 mg PO TID 05/23/21 06/28/23 zolpidem 10 mg tablet 10 mg PO HS 05/23/21 06/28/23 amlodipine 5 mg tablet 5 mg PO QAM 02/07/23 06/28/23 chlorthalidone 25 mg tablet 12.5 mg PO QAM 02/07/23 06/28/23 magnesium 200 mg tablet 400 mg PO DAILY 02/07/23 06/28/23 warfarin 5 mg tablet 5 mg PO DAILY 02/07/23 06/28/23 acetaminophen 500 mg capsule 500 mg PO BID PRN Pain 03/28/23 06/28/23 albuterol sulfate 90 mcg/actuation 1 puff inhalation Q4-6H PRN 03/28/23 06/28/23 aerosol inhaler Shortness Of Breath Or Wheezing fluticasone 250 mcg-salmeterol 50 1 ea inhalation BID 03/28/23 06/28/23 mcg/dose blistr powdr for inhalation (Advair Diskus) Allergies Allergy/AdvReac Type Severity Reaction Status Date / Time Penicillins Allergy Unknown Unknown Verified 06/28/23 11:36 doxycycline Allergy Rash Verified 06/28/23 11:36 torsemide Allergy Rash Verified 06/28/23 11:36 codeine AdvReac Unknown NAUSEA Verified 06/28/23 11:36 Review of Systems Review of Systems: All systems reviewed & are unremarkable except as noted in HPI and below Constitutional: Constitutional: Reports no additional constitutional complaints ENT: Reports system reviewed and no additional complaints, except as documented Cardiovascular: Cardiovascular: Reports no additional cardiovascular complaints Respiratory: Respiratory: Reports no additional respiratory complaints Gastrointestinal: Gastrointestinal: Reports abdominal pain, Reports bloating, Denies diarrhea and Denies nausea Comments: bloody stool Genitourinary: Genitourinary: Reports no additional male genitourinary complaints [facility] Past Medical History Medical History (Updated 07/30/23 @ 19:29 by Christopher Juan MD) Aortic atherosclerosis Chronic GERD GERD (gastroesophageal reflux disease) HCC (hepatocellular carcinoma) History of CVA (cerebrovascular accident) Insulin dependent diabetes mellitus Family History Family History Mother Family history of respiratory disorder Father Family history of heart disease in male family member before age 55 Social History Social History Smoking packs per day: 1.5 Smoking cigarettes per day: 30.0 Years smoked: 50 Smoking pack-years: 75.00 Smoking status: Current every day smoker Tobacco type: cigarettes Additional smoking assessment comments: TAPERING DOWN TO 1 PACK/DAY CURRENTLY Alcohol intake: former Drinks per week: 2 Alcohol use details: QUIT 01/2023, HEAVY DRINKER FOR 30-40 YEARS Living arrangements: with family Additional living arrangements comments: Spiritual care concerns: No Exam Narrative: GENERAL: Well-appearing, well-nourished, and in no acute distress. HEAD: Normocephalic, atrau
[2023-07-30] MEDS: PEG (High)/E-LYTE SOLN 4,000 ML BTL 3000 ML PO (19:46)
--- NOTE | 2023-07-30 19:47 | ADMGEN ---
This patient, Daniel Treviño, was admitted to 3 [facility] Surg Room 312-01. Patient/family oriented to hospital policies and general routines including ID bracelet, bed and alarms, visiting hours, pain management, procedures, bathroom and other care routines, personal items, smoking policy, room service/diet, and visiting hours. Information on how to activate the Rapid Response Team has been discussed. Patient/Family are encouraged to report perceived risks to care and to ask questions if they do not understand what they are told or what they should do.
[2023-07-30 22:15] LABS: Hematocrit 35.7 % (42.0-52.0); Hemoglobin 12.3 g/dL (14.0-18.0)
--- NOTE | 2023-07-30 23:01 | PM.IMHP ---
H&P: HPI History of Present Illness Date/Time: 07/30/23 23:01 Chief Complaint: Bowel movement that was all blood Narrative: 68-year-old male with a past medical history of hepatocellular carcinoma, esophageal varices, former alcoholism, essential hypertension, type 2 diabetes mellitus, COPD and continued tobacco use who presented to the ER with bright red blood per rectum. The patient reports that for the last couple of months he has been having issues with early satiety. He is having complete loss of appetite. Occasional dry heaves but no hematemesis or vomiting. His main complaint is that he just feels full the many tries to eat anything. But today he had a normal bowel movement. Then around 13:00 he felt and emergent need to use the restroom. At that time he had a large evacuation of bright red blood per rectum that contained clots. He denies any pain with the bowel movement, recent constipation or straining. He had not had a recurrent bowel movement until after he started bowel prep. He has had several bowel movements since then with some mixed stool and blood. He denies any melena. He has on Coumadin with an INR of 2.1 due to thrombosis of portal vein in the lateral segment of the right hepatic lobe. Portal vein thrombosis at documented as far back as September 2022. Imaging today demonstrated stable segmental portal vein thrombus. Patient denies any increased abdominal distension or swelling. He has been abstaining from alcohol since diagnosis late last year. Denies any associated chest pain or shortness of breath. He does have history of COPD but denies symptoms of exacerbation. He has lost 9 lb in 1 week. The patient reports chronic sensation of fullness and discomfort in the right upper quadrant it is worse with palpation of his abdomen. He also reports that over the last couple of weeks he has developed pain at the level of bilateral posterior iliac crest and aching in nature in is been worsening for the last couple of weeks. Pain is not improved despite use of his usual Tylenol and [place]. He has been taking some Tums without relief in symptoms. Review of Systems Review of Systems: 12 systems were reviewed with pertinent positives and negatives per HPI. Except as documented in the HPI, all other systems were reviewed and are negative. [facility] Past Medical History Medical History (Updated 07/31/23 @ 04:09 by Cally Wu DO) Alcohol abuse, in remission Aortic atherosclerosis Bladder cancer Chronic anticoagulation Chronic GERD Chronic kidney disease Continuous tobacco abuse COPD (chronic obstructive pulmonary disease) 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onoscopy History of esophagogastroduodenoscopy Port-A-Cath in place (04/02/23) Right subclavian placed by Dr. Aguilar Status post cataract extraction of both eyes with insertion of intraocular lens Family History Family History Mother Family history of respiratory disorder Father Family history of heart disease in male family member before age 55 Social History Social History (Updated 07/31/23 @ 04:05 by Cally Wu DO) Social History: He lives with his of 32 years. He has 2 grown daughters. 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 He used to smoke 2 packs of cigarettes per day but has cut down to 1 pack of cigarettes per day for the last year so. He is recovering alcoholic he used to drink at least a 6 pack of beer a day or 1/2 of a 5th of liquor a day but he stopped when he was diagnosed with hepatocellular car
[2023-07-31] VITALS (10 sets, daily range): BP systolic 79–125; BP diastolic 47–68; PULSE 63–82; RESP 14–20; TEMP 36.1–36.5; O2SAT 94–100; BMI 26.8
[2023-07-31] MEDS: ZOLPIDEM TARTRATE (*CRX) 5 MG TABLET 10 MG PO (01:17)
[2023-07-31] MEDS: PREGABALIN (*CRX) 50 MG CAPSULE PO ×2 (01:18→11:21)
[2023-07-31 06:39] LABS: Hematocrit 35.1 % (42.0-52.0); Hemoglobin 12.5 g/dL (14.0-18.0); Mean Corpuscular HGB Conc 35.6 g/dl (32-36); Mean Corpuscular Hemoglobin 31.3 pg (26-34); Mean Corpuscular Volume 87.8 fl (80-100); Mean Platelet Volume 9.7 fl (7.4-10.4); Platelet Count Result 126 k/mm3 (150-375); Red Cell Distribution Width 12.7 % (11.5-14.5); White Blood Count 3.6 K/mm3 (4.5-10.0)
[2023-07-31 06:51] LABS: Anion Gap 6 mmol/L (4-12); Blood Urea Nitrogen 14 mg/dL (9-20); Calcium 9.1 mg/dL (8.4-10.2); Carbon Dioxide 25 mmol/L (22-30); Chloride 99 mmol/L (98-107); Estimated CRCL calculation 56 ml/min; Estimated Glomerular Filt Rate 60; Glucose 154 mg/dL (65-110); Potassium 3.6 mmol/L (3.4-5.0); Sodium 130 mmol/L (137-145)
[2023-07-31 06:58] LABS: INR 1.8; Prothrombin Time 21.2 Seconds (11.1-14.7)
[2023-07-31] MEDS: FLUTICASONE/SALMETEROL 115-21 MCG INHALER 1 PUFF INHALATION (07:59)
--- NOTE | 2023-07-31 08:25 | PM.IMPN ---
Progress Note: A&P Assessment and Plan (1) Rectal bleeding: Code(s): K62.5 - Hemorrhage of anus and rectum Status: Acute Assessment and Plan: Painless bright red bleeding per rectum likely diverticular source. Currently on warfarin for chronic portal vein thrombosis, continue to hold. - Monitor serum electrolytes, CBC, hemoglobin/hematocrit q.8 hours. If hemoglobin drops below 7 transfuse packed red blood cells - Monitor for bloody bowel movements,chest pain,SOB or dizziness/lightheadedness - Pantoprazole 40 mg daily - Diet: NPO - DVT Px: SCDs - Avoid anti-coagulations, holding patients warfarin - GI consulted (2) HCC (hepatocellular carcinoma): Onset Date: 12/2022 Code(s): C22.0 - Liver cell carcinoma Status: Acute Assessment and Plan: S/p right subclavian vein single-lumen port a catheter placement on 04/02/[address] Aguilar for chemotherapy. (3) Portal vein thrombosis: Code(s): I81 - Portal vein thrombosis Status: Acute Assessment and Plan: Left portal vein thrombosis seen on imaging as far back as 09/2022. Noted to be stable on imaging in 06/2023. Home medications include warfarin. INR 2.1 on admission. Currently hold warfarin due to GI bleed. (4) Acute hyponatremia: Code(s): E87.1 - Hypo-osmolality and hyponatremia Status: Acute Assessment and Plan: Na 130 on admission and remains at 130 on am labs. - Serum osmol, urine osmol, and urine sodium ordered - No neurological symptoms at this time (5) Pancytopenia: Code(s): D61.818 - Other pancytopenia Status: Acute Assessment and Plan: Chronic, secondary to cirrhosis. Appears to be around baseline. - Continue to monitor (6) Hypertension: Code(s): I10 - Essential (primary) hypertension Status: Acute Assessment and Plan: Chronic, stable on home medications. - Continue amlodipine 5 mg daily - Monitor (7) Insulin dependent diabetes mellitus: Status: Acute Assessment and Plan: - hypoglycemia protocol - POC blood glucose ACHS - home medication - tresiba 50 units - correct regimen ordered - lantus 35 units - A1C ordered (8) Continuous tobacco abuse: Code(s): Z72.0 - Tobacco use Status: Acute Assessment and Plan: Current every day smoker of 1 pack per day. 50 pack year history. - Encourage smoking cessation - No nicotine patch/gum ordered at this time Subjective Date/time seen: 07/31/23 08:25 Interval history: 68-year-old male with a past medical history of hepatocellular carcinoma, esophageal varices, former alcoholism, essential hypertension, type 2 diabetes mellitus, COPD and continued tobacco use who presented to the ER with bright red blood per rectum. Review of Systems Review of Systems: All systems reviewed & are unremarkable except as noted in HPI and below Exam Narrative: AF General: well nourished, well-developed male in no acute respiratory distress who is nontoxic appearing, lying semi recumbent in bed. HEENT: Normocephalic. Atraumatic. Pupils equal round reactive to light. Extraocular movement intact. Sclera clear and anicteric. Nares patent. No oral lesions. Moist mucous membranes. Tongue is midline. Palate chase symmetrically. No facial asymmetry. Neck: Neck was supple. No dominant adenopathy, thyromegaly or masses. 2+ carotid upstrokes without bruits. Chest: Lungs are clear to auscultation bilaterlly. No wheezes or crackles. CV: Heart was regular rate and rhythm. S1/S2. No murmurs, gallops, or rubs. Abd: Abdomen was soft. Nontender. Nondistended. Postive bowel sounds. No organomegaly or masses. Ext: No clubbing, cyanosis, or edema. 2+ DP pulses bilaterally. Neuro: Patient is alert and oriented x4. Strenth is 5/5 in both upper and lower extremities. Cranial nerves 2-12 are intact. Speech is clear. Psych: Normal nood and affect. Patient is pleasant and cooperative. Skin: Warm and dry. N
[2023-07-31] MEDS: LACTATED RINGERS 1,000 ML 150 ML IV CONT (09:46)
[2023-07-31 09:50] LABS: Glucose Point of Care 156 mg/dl (65-105)
--- NOTE | 2023-07-31 10:00 | WPDANESEPPF ---
Anes - Initial Pre Proc Eval Procedure: Operation Date: 07/31/23 15:30 Proposed Procedures p Esophagogastroduodenoscopy & Colonoscopy - Luis Gabriel MD Date/Time: 07/31/23 10:00 Surgeon: Kristen Villela PA-C Pre Op Diagnosis: Lower GI Bleed Patient Data Age: 68 Gender: M Height: 1.8 m Weight: 87.3 kg Last Vital Signs Temp 97.4 F L 07/31/23 09:40 Pulse 74 07/31/23 09:40 Resp 18 07/31/23 09:40 BP 118/59 L 07/31/23 09:40 Pulse Ox 96 07/31/23 09:40 O2 Del Method Room Air 07/31/23 09:40 FiO2 21 07/31/23 07:59 Allergies Allergy/AdvReac Type Severity Reaction Status Date / Time Penicillins Allergy Unknown Unknown Verified 07/31/23 09:36 doxycycline Allergy Rash Verified 07/31/23 09:36 torsemide Allergy Rash Verified 07/31/23 09:36 codeine AdvReac Unknown NAUSEA Verified 07/31/23 09:36 Home Medications Medication Instructions Recorded Confirmed Type aspirin 81 mg tablet,delayed 81 mg PO DAILY 05/23/21 07/30/23 History release atorvastatin 20 mg tablet See Rx Instructions .Route .COMPLEX 05/23/21 07/30/23 History insulin aspart (niacinamide) See Protocol subcut TID 05/23/21 07/30/23 History (U-100) 100 unit/mL subcutaneous solution (Fiasp U-100 Insulin) insulin degludec 100 unit/mL 50 unit subcut 05/23/21 07/30/23 History subcutaneous solution (Tresiba U-100 Insulin) nadolol 40 mg tablet 40 mg PO QAM 05/23/21 07/30/23 History pantoprazole 40 mg tablet,delayed 40 mg PO DAILY 05/23/21 07/30/23 History release pregabalin 50 mg capsule 50 mg PO TID 05/23/21 07/30/23 History zolpidem 10 mg tablet 10 mg PO HS 05/23/21 07/30/23 History amlodipine 5 mg tablet 5 mg PO QAM 02/07/23 07/30/23 History chlorthalidone 25 mg tablet 12.5 mg PO QAM 02/07/23 07/30/23 History magnesium 200 mg tablet 400 mg PO DAILY 02/07/23 07/30/23 History warfarin 5 mg tablet 5 mg PO DAILY 02/07/23 07/31/23 History acetaminophen 500 mg capsule 500 mg PO BID PRN Pain 03/28/23 07/30/23 History albuterol sulfate 90 mcg/actuation 1 puff inhalation Q4-6H PRN 03/28/23 07/30/23 History aerosol inhaler Shortness Of Breath Or Wheezing fluticasone 250 mcg-salmeterol 50 1 ea inhalation BID 03/28/23 07/30/23 History mcg/dose blistr powdr for inhalation (Advair Diskus) hydrocodone 5 mg-acetaminophen 325 1 tablet PO Q6H PRN pain #10 tabs 04/04/23 07/30/23 Rx mg tablet metoclopramide HCl 10 mg tablet 10 mg PO Q6H PRN nausea and 07/24/23 07/30/23 Rx (Reglan) vomiting #14 tabs Laboratory Tests 07/30/23 07/30/23 07/31/23 14:54 21:59 06:07 WBC 3.5 L K/mm3 (4.5-10.0) RBC 4.24 L M/mm3 (4.6-6.20) Hgb 13.2 L g/dL 12.3 L g/dL (14.0-18.0) (14.0-18.0) Hct 38.0 L % 35.7 L % (42.0-52.0) (42.0-52.0) MCV 89.6 fl (80-100) MCH 31.1 pg (26-34) MCHC 34.7 g/dl (32-36) RDW 13.0 % (11.5-14.5) Plt Count 134 L k/mm3 (150-375) MPV 9.7 fl (7.4-10.4) Immature Gran % (Auto) 0.3 % (0-0.5) Neut % (Auto) 66.1 % (45.5-73.1) Lymph % (Auto) 13.5 L % (18.3-44.2) [place] % (Auto) 13.5 H % (2.6-8.5) Eos % (Auto) 6.0 H % (0-4.4) Baso % (Auto) 0.6 % (0.2-1.2) Lymph # (Auto) 0.47 L K/mm3 (0.9-3.2) [place] # (Auto) 0.5 K/mm3 (0.1-0.6) Eos # (Auto) 0.2 K/mm3 (0-0.3) Baso # (Auto) 0.0 K/mm3 (0.0-0.1) Abs Immat Gran (auto) 0.01 K/mm3 (0.00-0.031) Absolute Neuts (auto) 2.3 K/mm3 (1.3-6.7) Absolute Nucleated RBC 0.000 K/mm3 (0.0-0.012) Nucleated RBC % 0.0 % (0.0-0.2) PT 24.5 H Seconds (11.1-14.7) INR 2.1 APTT 61.3 H Seconds (22.3-36.8) Sodium 130 L mmol/L (137-145) Potassium 3.5 mmol/L (3.4-5.0) Chloride 98 mmol/L (98-107) Carbon Dioxide 25 mmol/L (22-
--- NOTE | 2023-07-31 10:23 | WPDGICN ---
Assessment and Plan Assessment and plan (1) Rectal bleeding: Code(s): K62.5 - Hemorrhage of anus and rectum Status: Acute Assessment and Plan: will proceed with egd and colonoscopy now that inr down to 1.8- coumadin on hold monitor for more signs of bleeding more recommendations after scope (2) HCC (hepatocellular carcinoma): Onset Date: 12/2022 Code(s): C22.0 - Liver cell carcinoma Status: Acute Assessment and Plan: seeing oncology and undergoing treatment lesion is stable (3) Cirrhosis, alcoholic: Code(s): K70.30 - Alcoholic cirrhosis of liver without ascites Status: Acute Assessment and Plan: he is seeing hepatology as outpatient low MELD score now but he has HCC he is not longer drinking (4) Portal vein thrombosis: Code(s): I81 - Portal vein thrombosis Status: Acute Assessment and Plan: on coumadin- currently on hold because new onset of rectal bleeding will do EGD since he has cirrhosis and some nausea (5) Insulin dependent diabetes mellitus: Status: Acute (6) Chronic anticoagulation: Code(s): Z79.01 - half-way (current) use of anticoagulants Status: Acute GI Consult Note Consult date/time: 07/31/23 10:23 Reason for consult: rectal bleeding, cirrhosis HPI: Daniel Treviño is a 68 year old male with past medical history of alcoholic cirrhosis with hepatocellular carcinoma diagnosed 01/2023 by biopsy treated by interventional radiology and currently on immunotherapy (he is seeing Dr Cassidy and also hepatology at [facility]), former alcoholism (quit about 7 months ago), hypertension, type 2 diabetes mellitus, COPD and portal vein thrombosis on coumadin for few months. He is here with new onset of bright red blood per rectum x1 with clots also had some nausea with loss of appetite. CT scan reviewed and showed stable liver lesion and portal vein thrombus. Patient denies any increased abdominal distension or swelling. He stopped drinking alcohol late last year. Hgb 12, inr down to 1.8, creat 1.2, bili 1.1 with normal liver enzymes, he is hemodynamically stable. Last colonoscopy about 10 years, had EGD [address] Barrientos, found to have small EV and using nadolol now, also possible Kovacs's but biopsy was not definitive. Review of Systems Constitutional: Constitutional: Denies headache(s) and Denies weakness Eyes: Eyes: Denies blurry vision ENT: Reports Normal hearing present, Denies headache(s) and Denies neck pain Cardiovascular: Cardiovascular: Denies chest pain and Denies dyspnea Respiratory: Respiratory: Denies dyspnea Gastrointestinal: Gastrointestinal: Reports no additional gastrointestinal complaints Genitourinary: Genitourinary: Denies dysuria Musculoskeletal: Musculoskeletal: Denies neck pain Integumentary/Breasts: Skin/Breast: Denies dry skin Neurologic: Reports Normal hearing present, Denies headache(s) and Denies weakness Psychiatric: Psychiatric: Denies anxiety Endocrine: Endocrine: Denies change in body appearance Hematologic/Lymphatic: Hematologic/Lymphatic: Denies easy bleeding Allergic/Immunologic: Allergic/Immunologic: Denies urticaria PMFSH Past Medical History Medical History (Updated 07/31/23 @ 13:29 by Luis Gabriel MD) Alcohol abuse, in remission Aortic atherosclerosis Bladder cancer Chronic anticoagulation Chronic GERD Chronic kidney disease Cirrhosis, alcoholic Continuous tobacco abuse COPD (chronic obstructive pulmonary disease) 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
--- NOTE | 2023-07-31 10:42 | SUR.OPER ---
EGD: [id number] COLON: Start 1033
[2023-07-31] MEDS: PANTOPRAZOLE 40 MG TABLET PO (11:21)
[2023-07-31] MEDS: MAGNESIUM OXIDE 400 MG TABLET PO (11:21)
[2023-07-31] MEDS: amLODIPine BESYLATE 5 MG TABLET PO (11:21)
[2023-07-31] MEDS: nadoloL 20 MG TABLET 40 MG PO (11:22)
[2023-07-31] MEDS: ATORVASTATIN 20 MG TABLET PO (11:24)
--- NOTE | 2023-07-31 15:56 | PM.DS ---
DS: Admitting Diagnosis Discharge Date 07/31/23 Admitting Diagnosis Rectal bleeding Early satiety chronic anticoagulation pancytopenia acute hyponatremia continued tobacco abuse weight loss nausea/vomiting DS: Discharge Diagnosis Discharge Diagnosis (1) Rectal bleeding: Code(s): K62.5 - Hemorrhage of anus and rectum Status: Acute (2) HCC (hepatocellular carcinoma): Onset Date: 12/2022 Code(s): C22.0 - Liver cell carcinoma Status: Acute (3) Portal vein thrombosis: Code(s): I81 - Portal vein thrombosis Status: Acute (4) Acute hyponatremia: Code(s): E87.1 - Hypo-osmolality and hyponatremia Status: Acute (5) Pancytopenia: Code(s): D61.818 - Other pancytopenia Status: Acute (6) Hypertension: Code(s): I10 - Essential (primary) hypertension Status: Acute (7) Insulin dependent diabetes mellitus: Status: Acute (8) Continuous tobacco abuse: Code(s): Z72.0 - Tobacco use Status: Acute DS: Summary Hospital Course Reason for hospitalization: Rectal bleeding Early satiety chronic anticoagulation pancytopenia acute hyponatremia continued tobacco abuse weight loss nausea/vomiting Hospital Course: 68-year-old male with a past medical history of hepatocellular carcinoma, esophageal varices, former alcoholism, essential hypertension, type 2 diabetes mellitus, COPD and continued tobacco use who presented to the ER with bright red blood per rectum. Anticoagulation was held at that time. He was anemic on labs, however he has chronic pancytopenia and labs appear at baseline. GI consulted and EGD/Colonoscopy performed. EGD unremarkable. Colonoscopy without active bleeding and noted internal hemorrhoids. GI states safe to resume home medications including warfarin. Prior to discharge patient denies hematochezia, melena, abdominal pain. He was tolerating a diet and ambulating about his room without assistance. Patient discharged home in stable condition. He has a scheduled appointment on with oncology. He will follow up with his PCP in 1-2 weeks. Status at Discharge Functional status at discharge: independent ambulation Time Spent with Patient Time attestation: Total time spent providing and/or coordinating discharge services: Time spent: Greater than 30 minutes Exam Narrative: AF HR 73 RR 16 SpO2 98 BP 121/63 General: male in no acute respiratory distress who is nontoxic appearing, sitting up in chair HEENT: Normocephalic. Atraumatic. Pupils equal round reactive to light. Extraocular movement intact. Sclera clear and anicteric. No facial asymmetry. Chest: Lungs are clear to auscultation bilaterally. No wheezes or crackles. CV: Heart was regular rate and rhythm. S1/S2. No murmurs, gallops, or rubs. Abd: Abdomen was soft. Nontender. Nondistended. Positive bowel sounds. No organomegaly or masses. Ext: No clubbing, cyanosis, or edema. 2+ DP pulses bilaterally. Neuro: Patient is alert and oriented x4. Cranial nerves 2-12 are intact. Speech is clear. Psych: Normal mood and affect. Patient is pleasant and cooperative. Skin: Warm and dry. No rashes noted. DS: Data Data Completed and Pending Completed studies during hospitalization: Colonoscopy EGD Labs on day of discharge: Labs from last 24 hours 07/31/23 07/31/23 07/31/23 09:45 06:08 06:07 WBC 3.6 L RBC 4.00 L Hgb 12.5 L Hct 35.1 L MCV 87.8 MCH 31.3 MCHC 35.6 RDW 12.7 Plt Count 126 L MPV 9.7 PT 21.2 H INR 1.8 APTT Sodium 130 L Potassium 3.6 Chloride 99 Carbon Dioxide 25 Anion Gap 6 BUN 14 Creatinine 1.20 Estim Creat Clear Calc 56 Estimated GFR 60 Glucose 154 H POC Capillary Glucose 156 H Serum Osmolality Pending Calcium 9.1 Blood Type Antibody Screen 07/30/23 07/30/23 21:59 14:54 WBC RBC Hgb 12.3 L Hct 35.7 L MCV MCH MCHC RDW Plt
== END 2023-07-31 16:25 | disposition home or self-care (01) ==
LOC: ANHED 15:36 → ANH3MEDSUR 19:29
PROVIDERS: Internal Medicine; Internal Medicine Gastroenterology; Admitting Provider Hospitalist; Emergency Provider Emergency Medicine; PCP Internal Medicine; Visit Provider Student in an Organized Health Care Education/Training Program
PROC: 0DJ08ZZ Inspection of Upper Intestinal Tract, Via Natural or Artificial Opening Endoscopic (ICD-10-PCS; CPT 43235; principal; 2023-07-31 15:30)
DX: K62.5 Hemorrhage of anus and rectum (principal); C22.0 Liver cell carcinoma; K70.30 Alcoholic cirrhosis of liver without ascites; I81 Portal vein thrombosis; E87.1 Hypo-osmolality and hyponatremia; K57.30 Diverticulosis of large intestine without perforation or abscess without bleeding; K64.8 Other hemorrhoids; R68.81 Early satiety; D61.818 Other pancytopenia; I70.0 Atherosclerosis of aorta; K21.9 Gastro-esophageal reflux disease without esophagitis; I12.9 Hypertensive chronic kidney disease with stage 1 through stage 4 chronic kidney disease, or unspecified chronic kidney disease; E11.22 Type 2 diabetes mellitus with diabetic chronic kidney disease; N18.9 Chronic kidney disease, unspecified; E11.42 Type 2 diabetes mellitus with diabetic polyneuropathy; J44.9 Chronic obstructive pulmonary disease, unspecified; I69.351 Hemiplegia and hemiparesis following cerebral infarction affecting right dominant side; F17.210 Nicotine dependence, cigarettes, uncomplicated; F10.21 Alcohol dependence, in remission; Z79.01 Long term (current) use of anticoagulants; Z79.82 Long term (current) use of aspirin; Z79.4 Long term (current) use of insulin; Z79.51 Long term (current) use of inhaled steroids; Z79.891 Long term (current) use of opiate analgesic; R63.4 Abnormal weight loss; Z68.26 Body mass index [BMI] 26.0-26.9, adult
CPT/HCPCS: 43235; 45378; 36415; 80048; 80053; 82948; 83930; 85014; 85018; 85025; 85027; 85610; 85730; 86850; 86900; 86901; 94640; 99285; A9270; G0378; J2704; J7120

== ENCOUNTER 2023-09-20 08:32 | Outpatient (CLI) | payer MEDICARE, SELFPAY ==
--- NOTE | ~2023-09-20 | CT_ITS ---
CT abdomen pelvis w con Ordering provider: Tommy Cassidy MD History: 68 years Male with . HEPATOCARCINOMA . Comparison: July 24, 2023 Technique: CT abdomen and pelvis with IV and without oral contrast. Automated exposure control and it erative reconstruction technique were employed. The dose-length product was 725.71 mGy-cm. 100 mL Omn ipaque 350 was given IV. Findings: VISUALIZED LOWER CHEST: Pleural-based nodule in the right middle lobe measuring 3 mm. Emphysematous c hanges in the middle lobe. UPPER ABDOMINAL ORGANS: Liver: Nodularity of the outline of the liver which may indicate cirrhosis. Heterogenous density area s seen in the right lobe near to the interlobar fissure which is unchanged from previous examination. Gallbladder: Cholelithiasis. Spleen: Splenomegaly Minimal fluid seen under the splenic capsule which measures 1 cm. This may repre sent a hematoma. Prominent vessels are seen near to the hilum of the spleen which may indicate cortic al cysts. Stomach/duodenum: Enhancing area in the wall of the stomach is seen suggestive of varicosities in the stomach. Pancreas: Normal. Adrenals: Nodule is seen measuring 1 cm. Prominent right adrenal gland. Both unchanged from previous examination. Kidneys: Normal. PELVIC ORGANS: Underfilled with slightly thickened wall. Evaluation for cystitis advised. BOWEL AND MESENTERY: Colon: Mild sigmoid diverticulosis without diverticulitis. The appendix is not demonstrated. Small Bowel: Normal. No obstruction. Peritoneum/mesentery: No free air or free fluid. No mesenteric lymphadenopathy. RETROPERITONEUM: Mild atheromatous disease of the abdominal aorta. Severe narrowing of the superior mesenteric artery is noted. Stents seen in the iliac arteries and distal aorta and para-aortic lymph nodes are noted with the largest measures 1.4 cm. MUSCULOSKELETAL: Superficial soft tissues: Defect in the anterior abdominal wall suggestive of fat containing hernia i s seen above the umbilicus. Fat containing inguinal hernias. The superficial soft tissues are normal. Bones: Age appropriate degenerative changes of the spine. Bilateral hip AVN. IMPRESSION: 1. Severe stenosis the superior mesenteric artery which is about 70-80%. Further evaluation advised. 2. Mass in the liver unchanged from previous examination. Possible cirrhotic changes. 3. Cholelithiasis. 4. Varicose veins in the stomach and in the splenic hilum. Mild Splenomegaly. Perisplenic fluid jass ection 5. Adrenal nodule is and prominence on the right side unchanged. 6. Bilateral hip AVN. 7. Dr. Khanh Sanders was notified with the result of the patient about the superior stenosis of the superi or mesenteric artery at 6:50 PM on September 21, 2023 Reviewed, dictated and finalized at location A. IMPRESSION: 1. Severe stenosis the superior mesenteric artery which is about 70-80%. Furth er evaluation advised. 2. Mass in the liver unchanged from previous examination. Possible cirrhotic c hanges. 3. Cholelithiasis. 4. Varicose veins in the stomach and in the splenic hilum. Mild Splenomegaly. Perisplenic fluid collection 5. Adrenal nodule is and prominence on the right side unchanged. 6. Bilateral hip AVN. 7. Dr. Khanh Sanders was notified with the result of the patient about the superior stenosis of the superior mesenteric artery at 6:50 PM on September 21, 2023
== END 2023-09-20 08:33 | disposition home or self-care (01) ==
LOC: ANHIMG 08:35
PROVIDERS: PCP Internal Medicine; Visit Provider Internal Medicine Hematology & Oncology
DX: C22.0 Liver cell carcinoma (principal)
CPT/HCPCS: 74177; Q9967

== ENCOUNTER 2023-12-24 09:46 | Outpatient (CLI) | payer MEDICARE, SELFPAY ==
--- NOTE | ~2023-12-24 | CT_ITS ---
EXAMINATION: CT abdomen pelvis w con DATE: 12/24/2023 10:30 INDICATION: Hepatocellular carcinoma. TECHNIQUE: Computed tomography (CT) of the abdomen and pelvis was performed with 100 mL Omnipaque 350 intravenous contrast. Automated exposure control and iterative reconstruction technique were employe d. The dose-length product was 790.48 mGy-cm. COMPARISON: CT abdomen and pelvis 09/20/2023, 06/06/21, 09/27/22 FINDINGS: The visualized portions of lung bases demonstrate mild atelectasis. There is a stable 4 mm nodule in left lower lobe, likely benign. No pleural effusion. The heart size is normal. There are co ronary artery calcifications. There are calcifications of the aortic valve. No pericardial effusion. The liver demonstrates surface nodularity, consistent with cirrhosis. There is volume loss of segment s ABUNDIO and IVB of the liver. There is a 3.2 x 1.9 cm mass in segment ABUNDIO of the liver that previously measured 3.7 x 2.2 cm. There is chronic thrombosis of portal vein in segments ABUNDIO and IVB of the live r. There is a 6 mm hypodense mass in right hepatic lobe, likely benign. There is a gallstone in the g allbladder, which is normal in size. There is mild splenomegaly. There is a chronic subcapsular hemat sherry of the spleen with maximum thickness of 9 mm. The pancreas and adrenal glands are normal. There i s cortical thinning of the kidneys. There are stents in the common iliac arteries. The prostate is mi ldly enlarged. There is diverticulosis of the colon without evidence of diverticulitis. There are no dilated loops of bowel. The appendix is not visualized. There is a splenorenal portacaval shunt. Ther e is trace ascites. There are bilateral inguinal hernias containing fat. There is severe stenosis of superior mesenteric artery and no significant stenosis of celiac axis or inferior mesenteric artery. There is mild periportal lymphadenopathy. There is severe lumbar spondylosis. There is osteonecrosis in the femoral heads. IMPRESSION: 1. Improved liver mass, likely a combination of infarct and hepatocellular carcinoma. 2. Cirrhosis of the liver with portal venous hypertension. 3. Chronic mild periportal lymphadenopathy, likely reactive. Reviewed, dictated and finalized at location B. IMPRESSION: 1. Improved liver mass, likely a combination of infarct and hepatocellular carc inoma. 2. Cirrhosis of the liver with portal venous hypertension. 3. Chronic mild periportal lymphadenopathy, likely reactive.
== END 2023-12-24 09:47 | disposition home or self-care (01) ==
LOC: ANHIMG 09:47
PROVIDERS: PCP Internal Medicine; Visit Provider Internal Medicine Hematology & Oncology
DX: C22.0 Liver cell carcinoma (principal)
CPT/HCPCS: 74177; Q9967

== ENCOUNTER 2024-01-18 13:53 | Inpatient (IN) | payer MEDICARE, SELFPAY ==
[2024-01-18] VITALS (54 sets, daily range): BP systolic 96–208; BP diastolic 46–128; PULSE 91–138; RESP 13–27; TEMP 36.3; O2SAT 90–100; BMI 25.7
--- NOTE | ~2024-01-18 | CT_ITS ---
EXAMINATION: CTA chest abdomen pelvis DATE: 01/18/2024 17:04 INDICATION: Chest pain. Shortness of breath. TECHNIQUE: Computed tomographic angiography (CTA) of the chest, abdomen, and pelvis was performed wit h 100 mL Omnipaque-350 intravenous contrast. Automated exposure control and iterative reconstruction technique were employed. The dose-length product was 806.25 mGy-cm. Maximum intensity projection 3D-r econstructions of the aorta and other arteries were constructed by the technologist on a separate wor kstation. COMPARISON: CT abdomen and pelvis 12/24/2023, 09/20/23 FINDINGS: CHEST CTA: There is mild emphysema. There is smooth septal thickening in the lungs with mild groundglass opaciti es in the inferior lungs, consistent with mild pulmonary edema. A calcified left lung nodule and calc ified left hilar lymph nodes are consistent with old granulomatous disease. No pleural effusion. The heart size is normal. There are coronary artery calcifications. No pericardial effusion. There is no pulmonary embolus. Aortic atherosclerosis is noted. There is severe stenosis of proximal left common carotid artery. There is mild bilateral gynecomastia. There is mild thoracic spondylosis. ABDOMEN AND PELVIS CTA: The liver demonstrates surface nodularity, consistent with cirrhosis. There is volume loss and low at tenuation of segments 4A and 4B of the liver with thrombosis of the associated portal vein. There are gallstones in the gallbladder which is normal in size. Gallbladder wall thickening is likely seconda ry to chronic liver disease and interstitial edema. There is a chronic subcapsular hematoma of the sp [place] with maximum thickness of 9 mm without change. The pancreas and adrenal glands are normal. There is cortical thinning of the kidneys. There is a splenorenal shunt consistent with portal venous hype rtension. The prostate is mildly enlarged. There are bilateral inguinal hernias containing fat. There is diverticulosis of the colon without evidence of diverticulitis. There are no dilated loops of bow el. The appendix is not visualized. There is mild periportal and aortocaval lymphadenopathy, likely r eactive. There is a small volume of ascites. There are stents in the common iliac arteries. There is severe stenosis of superior mesenteric artery without change. There is mild stenosis of celiac axis a nd the renal arteries. There is no significant stenosis of inferior mesenteric artery. There is osteo necrosis in the femoral heads. There is severe lumbar spondylosis. IMPRESSION: 1. Mild pulmonary edema. 2. Severe stenosis of proximal left common carotid artery. 3. Cirrhosis of the liver with portal venous hypertension. 4. Worsened distribution of low attenuation involving segments 4A and 4B of the liver with thrombus i n the associated portal vein, consistent with a combination of infarct and hepatocellular carcinoma. 5. Mild periportal and aortocaval lymphadenopathy, likely reactive. 6. Small volume of ascites. 7. 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 Reviewed, dictated and finalized at location A. PRODUCER IMPRESSION: 1. Mild pulmonary edema. 2. Severe stenosis of proximal left common carotid artery. 3. Cirrhosis of the liver with portal venous hypertension. 4. Worsened distribution of low attenuation involving segments 4A and 4B of the liver with thrombus in the associated portal vein, consistent with a combinati on of infarct and hepatocellular carcinoma. 5. Mild periportal and aortocaval lymphadenopathy, likely reactive. 6. Small volume of ascites. 7. 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
--- NOTE | ~2024-01-18 | XR_ITS ---
EXAMINATION: XR chest 2V DATE: 01/18/2024 14:56 INDICATION: Chest pain. TECHNIQUE: Frontal and lateral views of the chest were obtained. COMPARISON: Chest single view 04/02/2023 FINDINGS: There are airspace opacities in left lower lung zone. A calcified left lung nodule is consi stent with old granulomatous disease. No pleural effusion or pneumothorax. The heart size is normal. There is a right subclavian port with tip in superior vena cava. There is compression of the catheter between the clavicle and first rib. IMPRESSION: 1. Airspace opacities in left lower lung zone, consistent with atelectasis versus pneumonia. 2. Compression of the port catheter between the clavicle and first rib. Reviewed, dictated and finalized at location A. CORPORATE DEVELOPMENT IMPRESSION: 1. Airspace opacities in left lower lung zone, consistent with atelectasis vers us pneumonia. 2. Compression of the port catheter between the clavicle and first rib.
--- NOTE | 2024-01-18 13:54 | ECG_ITS ---
Test Date: 2024-01-18 14:05:36 Measurements Intervals [place] Rate: 108 P: 49 MT: 263 QRS: 35 QRSD: 154 T: 102 QT: 397 QTc: 534 Interpretive Statements SINUS TACHYCARDIA LEFT ATRIAL ENLARGEMENT LEFT BUNDLE BRANCH BLOCK ABNORMAL ECG No previous ECG available for comparison Electronically Signed On 01-18-2024 14:20:03 VENTILATING EXPERT by Alexander Payne D.O.
[2024-01-18 14:16] LABS: Basophils Percent Auto 0.1 % (0.2-1.2); Immature Granulocyte Absolute 0.08 K/mm3 (0.00-0.031); Immature Granulocyte Percent A 0.9 % (0-0.5); Lymphocytes Absolute Auto 0.26 K/mm3 (0.9-3.2); Mean Corpuscular HGB Conc 34.4 g/dl (32-36); Mean Corpuscular Hemoglobin 32.2 pg (26-34); Mean Corpuscular Volume 93.6 fl (80-100); Mean Platelet Volume 9.6 fl (7.4-10.4); Monocytes Absolute Auto 0.5 K/mm3 (0.1-0.6); Monocytes Percent Auto 5.5 % (2.6-8.5); Neutrophils Absolute Auto 7.9 K/mm3 (1.3-6.7); Neutrophils Percent Auto 90.5 % (45.5-73.1); Platelet Count Result 126 k/mm3 (150-375); Red Blood Count 3.42 M/mm3 (4.6-6.20); Red Cell Distribution Width 13.2 % (11.5-14.5); White Blood Count 8.7 K/mm3 (4.5-10.0)
[2024-01-18 14:31] LABS: INR 1.4; Prothrombin Time 18.1 Seconds (11.1-14.7)
[2024-01-18 14:32] LABS: Partial Thromboplastin Time 32.3 Seconds (22.3-36.8)
[2024-01-18 14:39] LABS: Platelet Estimate Slightly Decreased (Adequate)
[2024-01-18 14:40] LABS: Alanine Aminotransferase 16 U/L (6-50); Albumin Level 4.4 g/dL (3.5-5.1); Alkaline Phosphatase 64 U/L (38-126); Anion Gap 11 mmol/L (4-12); Anisocytosis 1+; Aspartate Amino Transferase 26 U/L (17-59); Bilirubin,Total 0.6 mg/dL (0.2-1.3); Blood Urea Nitrogen 24 mg/dL (9-20); Calcium 9.5 mg/dL (8.4-10.2); Carbon Dioxide 19 mmol/L (22-30); Chloride 105 mmol/L (98-107); Estimated CRCL calculation 40 ml/min; Estimated Glomerular Filt Rate 40; Glucose 306 mg/dL (65-110); Large Platelets Present; Lipase 75 U/L (23-300); Potassium 4.4 mmol/L (3.4-5.0); Sodium 135 mmol/L (137-145)
[2024-01-18 14:41] LABS: Schistocytes None Seen
[2024-01-18 14:51] LABS: Troponin I 0.013 ng/mL (0.000-0.034)
[2024-01-18] MEDS: ASPIRIN 81 MG CHEWABLE TABLET 324 MG PO (15:21)
[2024-01-18 15:53] LABS: NT Pro B Type Natriuretic Pept 8290 pg/mL (19.9-100)
[2024-01-18 15:55] LABS: D Dimer 0.66 ug/mL (<0.48)
--- NOTE | 2024-01-18 16:49 | ECG_ITS ---
Test Date: 2024-01-18 20:38:05 Measurements Intervals [place] Rate: 98 P: 25 ID: [id number] QRS: 7 QRSD: 153 T: 107 QT: 398 QTc: 510 Interpretive Statements SINUS RHYTHM LEFT BUNDLE BRANCH BLOCK ABNORMAL ECG Compared to ECG 01/18/2024 14:05:36 HEART RATE DECREASED Electronically Signed On 01-19-2024 07:36:39 CHIEF MEDICAL DIRECTOR by Alexander Payne D.O.
[2024-01-18] MEDS: HYDROmorphone HCL INJ (*CRX) 1 MG/ML SYR 0.5 MG IV PUSH (17:04)
[2024-01-18] MEDS: NITROGLYCERIN SL 0.4 MG TABLET SUBLINGUAL (17:14)
[2024-01-18] MEDS: NITROGLYCERIN/D5W 200 MCG/ML 50 MG/250 ML BTL 15 MG IV CONT (17:22)
[2024-01-18] MEDS: FUROSEMIDE INJ 40 MG/4 ML VIAL (17:24)
[2024-01-18 17:48] LABS: Alveolar/Arterial O2 Gradient 253.6 mmHg; Base Excess ABG -10.1 mEq/l (+/-2.0); Fractional Inspired Oxygen 50 %; HCO3 ABG 14.9 mEq/l (22.0-26.0); Oxygen Content ABG 13.7 %vol (16.0-22.0); Oxygen Saturation ABG 92.6 % (95.0-100.0); Oxyhemoglobin 90.8 % THb (90.0-100.0); PCO2 ABG 30.2 mmHg (35.0-45.0); PO2 ABG 68.9 mmHg (80.0-100.0); PO2 FiO2 Ratio Arterial Blood 1.38 %; Total Hemoglobin 10.7 g/dL (12.0-18.0); pH ABG 7.312 (7.350-7.450)
[2024-01-18 17:50] LABS: Site Drawn LEFT BRACHIAL
[2024-01-18 17:51] LABS: Device NON-INVASIVE VENT
[2024-01-18 17:52] LABS: Non-Invasive Expiratory Pressure 5 CMH2O; Non-Invasive Inspiratory Pressure 10 CMH2O; Non-Invasive Vent Rate 12 /MIN
--- NOTE | 2024-01-18 18:16 | ED_ITS ---
HPI - General Adult General Chief complaint: Chest Pain Stated complaint: CHEST PAIN AFTER IMMUNOTHERAPY FOR LIVER CA Time Seen by Provider: 01/18/24 15:16 History of Present Illness HPI narrative: This is a 68-year-old male presenting ED for chest pain and shortness of breath. Patient says that he received his immunotherapy for his liver cancer earlier Yesterday morning. That evening he developed what he describes as a being punched in the chest. It is nonradiating 7/10 10 in intensity and getting worse. patient says that he had pain like this last time he had the fusion but not nearly as severe and quickly resolved. Patient has nausea shortness of breath. No vomiting. No fevers chills abdominal pain lower extremity edema. No history of heart failure. Related Data Home Medications Medication Instructions Recorded Confirmed aspirin 81 mg tablet,delayed 81 mg PO DAILY 05/23/21 01/17/24 release atorvastatin 20 mg tablet See Rx Instructions .Route .COMPLEX 05/23/21 01/17/24 insulin aspart (niacinamide) See Protocol subcut TID 05/23/21 01/17/24 (U-100) 100 unit/mL subcutaneous solution (Fiasp U-100 Insulin) insulin degludec 100 unit/mL 50 unit subcut HS 05/23/21 01/17/24 subcutaneous solution (Tresiba U-100 Insulin) pantoprazole 40 mg tablet,delayed 40 mg PO DAILY 05/23/21 01/17/24 release pregabalin 50 mg capsule 50 mg PO TID 05/23/21 01/17/24 zolpidem 10 mg tablet 10 mg PO HS 05/23/21 01/17/24 amlodipine 5 mg tablet 5 mg PO QAM 02/07/23 01/17/24 magnesium 200 mg tablet 400 mg PO DAILY 02/07/23 01/17/24 acetaminophen 500 mg capsule 500 mg PO BID PRN Pain 03/28/23 01/17/24 albuterol sulfate 90 mcg/actuation 1 puff inhalation Q4-6H PRN 03/28/23 01/17/24 aerosol inhaler Shortness Of Breath Or Wheezing fluticasone 250 mcg-salmeterol 50 1 ea inhalation BID 03/28/23 01/17/24 mcg/dose blistr powdr for inhalation (Advair Diskus) rivaroxaban 10 mg tablet (Xarelto) 10 mg PO DAILY 12/20/23 01/17/24 Allergies Allergy/AdvReac Type Severity Reaction Status Date / Time Penicillins Allergy Unknown Unknown Verified 01/17/24 08:34 doxycycline Allergy Rash Verified 12/20/23 11:07 torsemide Allergy Rash Verified 12/20/23 11:07 codeine AdvReac Unknown NAUSEA Verified 12/20/23 11:07 [facility] Past Medical History Medical History Alcohol abuse, in remission Aortic atherosclerosis Bladder cancer Chronic anticoagulation Chronic GERD Chronic kidney disease Cirrhosis, alcoholic Continuous tobacco abuse COPD (chronic obstructive pulmonary disease) 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 Aguilar Status post cataract extraction of both eyes with insertion of intraocular lens Family History Family History Mother Family history of respiratory disorder Father Family history of heart disease in male family member before age 55 Social History Social History Social History: He lives with his of 32 years. He has 2 grown daughters. 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 He used to smoke 2 packs of cigarettes per day but has cut down to 1 pack of cigarettes per day for the last year so. He is recovering alcoholic he used to drink at least a 6 pack of beer a day or 1/2 of a 5th of liquor a day but he stopped when he was diagnosed with hepatocellular carcinoma December 2022. Code status: DNR/DNI per patient request but patient does not actually have advanced directives in writing. Surrogate decision maker: Smoking packs per day: 1 Smoking cigarettes per day: 20.0 Years smoked: 50 Smoking pack-years: 50.00 Smoking status: Current every day smoker Tobacco type: cigarettes Additional smoking assessment comments: TAPERING DOWN TO 1 PACK/DAY CURRENTLY Alcohol intake: former Alcohol use details: QUIT 01/2023, HEAVY DRINKER FOR 30-40 YEARS 6 pack per day or a half of a 5th of liquor a day Substance use: never Do You Feel Safe in your Home?: Yes Lack of Transportation: No Lack of Food: Never True Current Housing: I Have Housing Concerned About Future Housing: No Difficulty Paying Gas/Electric Bills: No Difficulty Paying for Meds: No Currently Unemployed: No Education: Trade/Vocational Certificate Difficulty w/ Childcare or Family Care: No Living arrangements: with family Additional living arrangements comments: Spiritual care concerns: No Exam Narrative: APPEARANCE: Patient appears uncomfortable Head: atraumatic. EYES: EOMI, NOSE: Atraumatic NECK: Trachea midline RESPIRATORY: No increased rate of breathing, bibasilar crackles CARDIOVASCULAR: tachycardic, no peripheral edema ABDOMINAL: Non-distended soft, nontender no guarding/ rebound MUSCULOSKELETAl: No obvious deformities NEURO: Alert. Moving 4/4 extremities SKIN:: Warm, dry. Normal color PSYCHIATRIC: Normal affect Course Vital Signs Vital signs: Vital Signs Temperature 97.3 F L 01/18/24 13:56 Pulse Rate 118 H 01/18/24 13:56 Respiratory Rate 20 01/18/24 13:56 Blood Pressure 100/59 L 01/18/24 13:56 Pulse Oximetry 100 01/18/24 13:56 Oxygen Delivery Room Air 01/18/24 13:56 Temperature 97.3 F L 01/18/24 13:56 Pulse Rate 108 H 01/18/24 18:17 Respiratory Rate 20 01/18/24 18:11 Blood Pressure 105/64 01/18/24 18:17 Pulse Oximetry 100 01/18/24 18:11 Oxygen Delivery BiPAP 01/18/24 17:26 Oxygen Flow Rate 15 01/18/24 17:16 Medical Decision Making [facility] Narrative Medical decision making narrative: -Course: 68-year-old male presenting with chest pain and shortness some breath. Patient initially tachycardic on exam. Not overly fluid overloaded. BNP elevated at 8000. CTA ordered to evaluate for PE or other causes of chest pain and shortness of breath. CTA showed mild pulmonary edema without any other cardiopulmonary findings. When the patient came back from the CT scanner he developed severe respiratory distress. At that time his blood pressure got into the 200s and he became hypoxic on room air requiring a non-rebreather. Patient was treated for flash pulmonary edema with BiPAP, sublingual nitro transitioning to a nitro drip. Patient is stabilized. Blood pressure is now significant lower 100/60 with a heart rate of 100. He is now chest pain-free. on arrival to the ED his heart rate was in the 130s and his blood pressure was 130/80 and was still having chest pain at that time. He seems to do well around SBP 100-110. patient started on heparin. Given Bumex. Case was discussed with Dr. Morton who is in agreement with management. Patient will be admitted the hospital for further management. -DDX includes but is not limited to: ACS, CHF, flash pulmonary edema -Independent interpretation of studies: Labs imaging reviewed Independent EKG interpretation: Rhythm [sinus], Rate [108], [place] -[normal], [place] -[normal], QRS [LBBB], QTC [normal], T waves -[negative for concerning inversions], ST Segments - [Negative for concerning elevations] Final interpretations: [Normal Sinus Rhythm] -Discussion of Management/Consultants: Amy Morton -Shared decision making / Disposition:Admitted. Vital Signs Vital Signs: Vital Signs Temperature 97.3 F L 01/18/24 13:56 Pulse Rate 118 H 01/18/24 13:56 Respiratory Rate 20 01/18/24 13:56 Blood Pressure 100/59 L 01/18/24 13:56 Pulse Oximetry 100 01/18/24 13:56 Oxygen Delivery Room Air 01/18/24 13:56 Temperature 97.3 F L 01/18/24 13:56 Pulse Rate 108 H 01/18/24 18:17 Respiratory Rate 20 01/18/24 18:11 Blood Pressure 105/64 01/18/24 18:17 Pulse Oximetry 100 01/18/24 18:11 Oxygen Delivery BiPAP 01/18/24 17:26 Oxygen Flow Rate 15 01/18/24 17:16 Lab Data 01/18/24 14:11 01/18/24 14:11 Labs: Lab Results 01/18/24 01/18/24 01/18/24 Range/Units 14:10 14:11 17:03 WBC 8.7 (4.5-10.0) K/mm3 RBC 3.42 L (4.6-6.20) M/mm3 Hgb 11.0 L (14.0-18.0) g/dL Hct 32.0 L (42.0-52.0) % MCV 93.6 (80-100) fl MCH 32.2 (26-34) pg MCHC 34.4 (32-36) g/dl RDW 13.2 (11.5-14.5) % Plt Count 126 L (150-375) k/mm3 MPV 9.6 (7.4-10.4) fl Immature Gran % (Auto) 0.9 H (0-0.5) % Neut % (Auto) 90.5 H (45.5-73.1) % Lymph % (Auto) 3.0 L (18.3-44.2) % [place] % (Auto) 5.5 (2.6-8.5) % Eos % (Auto) 0.0 (0-4.4) % Baso % (Auto) 0.1 L (0.2-1.2) % Lymph # (Auto) 0.26 L (0.9-3.2) K/mm3 [place] # (Auto) 0.5 (0.1-0.6) K/mm3 Eos # (Auto) 0.0 (0-0.3) K/mm3 Baso # (Auto) 0.0 (0.0-0.1) K/mm3 Abs Immat Gran (auto) 0.08 H (0.00-0.031) K/mm3 Absolute Neuts (auto) 7.9 H (1.3-6.7) K/mm3 Absolute Nucleated RBC 0.000 (0.0-0.012) K/mm3 Nucleated RBC % 0.0 (0.0-0.2) % Platelet Estimate Slightly decreased (Adequate) Large Platelets Present Anisocytosis 1+ Schistocytes None seen PT 18.1 H (11.1-14.7) Seconds INR 1.4 APTT 32.3 (22.3-36.8) Seconds D-Dimer 0.66 H (<0.48) ug/mL Expiratory Pressure CMH2O Inspiratory Pressure CMH2O Sodium 135 L (137-145) mmol/L Potassium 4.4 (3.4-5.0) mmol/L Chloride 105 (98-107) mmol/L Carbon Dioxide 19 L (22-30) mmol/L Anion Gap 11 (4-12) mmol/L BUN 24 H (9-20) mg/dL Creatinine 1.70 H (0.7-1.3) mg/dL Estim Creat Clear Calc 40 ml/min Estimated GFR 40 L (59 - ) Glucose 306 H (65-110) mg/dL Calcium 9.5 (8.4-10.2) mg/dL Total Bilirubin 0.6 (0.2-1.3) mg/dL AST 26 (17-59) U/L ALT 16 (6-50) U/L Alkaline Phosphatase 64 (38-126) U/L Troponin I 0.013 0.070 H* D (0.000-0.034) ng/mL NT-Pro-B Natriuret Pep 8290 H (19.9-100) pg/mL Total Protein 8.0 (6.3-8.2) g/dL Albumin 4.4 (3.5-5.1) g/dL Lipase 75 (23-300) U/L 01/17/ Range/Units 17:41 WBC (4.5-10.0) K/mm3 RBC (4.6-6.20) M/mm3 Hgb (14.0-18.0) g/dL Hct (42.0-52.0) % MCV (80-100) fl MCH (26-34) pg MCHC (32-36) g/dl RDW (11.5-14.5) % Plt Count (150-375) k/mm3 MPV (7.4-10.4) fl Immature Gran % (Auto) (0-0.5) % Neut % (Auto) (45.5-73.1) % Lymph % (Auto) (18.3-44.2) % [place] % (Auto) (2.6-8.5) % Eos % (Auto) (0-4.4) % Baso % (Auto) (0.2-1.2) % Lymph # (Auto) (0.9-3.2) K/mm3 [place] # (Auto) (0.1-0.6) K/mm3 Eos # (Auto) (0-0.3) K/mm3 Baso # (Auto) (0.0-0.1) K/mm3 Abs Immat Gran (auto) (0.00-0.031) K/mm3 Absolute Neuts (auto) (1.3-6.7) K/mm3 Absolute Nucleated RBC (0.0-0.012) K/mm3 Nucleated RBC % (0.0-0.2) % Platelet Estimate (Adequate) Large Platelets Anisocytosis Schistocytes PT (11.1-14.7) Seconds INR APTT (22.3-36.8) Seconds D-Dimer (<0.48) ug/mL Expiratory Pressure 5 CMH2O Inspiratory Pressure 10 CMH2O Sodium (137-145) mmol/L Potassium (3.4-5.0) mmol/L Chloride (98-107) mmol/L Carbon Dioxide (22-30) mmol/L Anion Gap (4-12) mmol/L BUN (9-20) mg/dL Creatinine (0.7-1.3) mg/dL Estim Creat Clear Calc ml/min Estimated GFR (59 - ) Glucose (65-110) mg/dL Calcium (8.4-10.2) mg/dL Total Bilirubin (0.2-1.3) mg/dL AST (17-59) U/L ALT (6-50) U/L Alkaline Phosphatase (38-126) U/L Troponin I (0.000-0.034) ng/mL NT-Pro-B Natriuret Pep (19.9-100) pg/mL Total Protein (6.3-8.2) g/dL Albumin (3.5-5.1) g/dL Lipase (23-300) U/L ABG Data ABG results: 01/18/24 17:41 Puncture Site Left brachial ABG pH 7.312 L ABG pCO2 30.2 L ABG pO2 68.9 L ABG PO2/FiO2 Ratio 1.38 ABG HCO3 14.9 L ABG O2 Saturation 92.6 L ABG O2 Content 13.7 L ABG Base Excess -10.1 A-a Gradient 253.6 Oxyhemoglobin 90.8 Total Hemoglobin 10.7 L O2 Delivery Device Non-invasive vent O2 Liters/Min 0.0 Vent Rate 12 FiO2 50 Critical Care Time Critical Care Time Critical Care Time: Yes Total Critical Care Time: 35 Discharge Plan Discharge Clinical Impression: Chest pain, Flash pulmonary edema, Elevated troponin, Complete left bundle branch block, Cancer of liver, CHF (congestive heart failure) Patient Disposition: Still a Patient Condition: Stable Prescriptions: No Action Xarelto 10 mg Tablet 10 mg PO DAILY Rx Instructions: for 35 days atorvastatin 20 mg tablet See Rx Instructions .ROUTE .COMPLEX Rx Instructions: 20 mg orally every other day aspirin 81 mg tablet,delayed release (DR/EC) 81 mg PO DAILY pantoprazole 40 mg tablet,delayed release (DR/EC) 40 mg PO DAILY zolpidem 10 mg tablet 10 mg PO HS pregabalin 50 mg capsule 50 mg PO TID Fiasp U-100 Insulin 100 unit/mL solution See Protocol subcut TID Protocol: Insulin Corrective Moderate-Dose Condition: glucose < 70 mg/dl Dose/Route: Follow hypoglycemia orders Condition: glucose 70-200 mg/dl Dose/Route: No additional insulin Condition: glucose 201-250 mg/dl Dose/Route: 3 units sub-Q Condition: glucose 251-300 mg/dl Dose/Route: 4 units sub-Q Condition: glucose 301-350 mg/dl Dose/Route: 5 units sub-Q Condition: glucose 351-400 mg/dl Dose/Route: 6 units sub-Q Condition: glucose > 400 mg/dl Dose/Route: Call MD Protocol Text: *No Correction Dose at Bedtime* Rx Instructions: sliding scale insulin degludec [Tresiba U-100 Insulin] 100 unit/mL solution 50 unit SUBCUT HS amlodipine 5 mg Tablet 5 mg PO QAM magnesium 200 mg Tablet 400 mg PO DAILY acetaminophen 500 mg Capsule 500 mg PO BID PRN (Reason: Pain) albuterol sulfate 90 mcg/actuation HFA aerosol inhaler 1 puff INHALATION Q4-6H PRN (Reason: Shortness Of Breath Or Wheezing) fluticasone propion-salmeterol [Advair Diskus] 250-50 mcg/dose blister with device 1 ea INHALATION BID hydrocodone-acetaminophen 5-325 mg tablet 1 tablet PO Q6H PRN (Reason: pain) Qty: 10 0RF metoclopramide HCl [Reglan] 10 mg tablet 10 mg PO Q6H PRN (Reason: nausea and vomiting) Qty: 14 0RF Follow-up/Referrals: Sandie,MD Shay [Primary Care Provider] -
[2024-01-18] MEDS: BUMETANIDE INJ 1 MG/4 ML VIAL IV PUSH (18:57)
[2024-01-18] MEDS: HEPARIN SOD/D5W 100 UNITS/ML 25,000 UNITS/250 ML BAG 10 UNITS IV CONT (18:57)
--- NOTE | 2024-01-18 20:47 | P.HP_ITS ---
H&P: HPI History of Present Illness Date/Time: 01/18/24 20:47 Chief Complaint: shortness of breath Narrative: This is a 68-year-old male with past medical history significant for hepatic cirrhosis, hepatocellular carcinoma, alcohol dependence, tobacco dependence. patient presents to the emergency room with chest pain, 7/10 intensity, nonradiating, feels like been punched . preliminary workup was significant for CT angiogram with findings worsening hepatocellular carcinoma and portal vein thrombosis and pneumonia. EXAMINATION: XR chest 2V DATE: 01/18/2024 14:56 INDICATION: Chest pain. TECHNIQUE: Frontal and lateral views of the chest were obtained. COMPARISON: Chest single view 04/02/2023 FINDINGS: There are airspace opacities in left lower lung zone. A calcified left lung nodule is consistent with old granulomatous disease. No pleural effusion or pneumothorax. The heart size is normal. There is a right subclavian port with tip in superior vena cava. There is compression of the catheter between the clavicle and first rib. IMPRESSION: 1. Airspace opacities in left lower lung zone, consistent with atelectasis versus pneumonia. 2. Compression of the port catheter between the clavicle and first rib. EXAMINATION: CTA chest abdomen pelvis DATE: 01/18/2024 17:04 INDICATION: Chest pain. Shortness of breath. TECHNIQUE: Computed tomographic angiography (CTA) of the chest, abdomen, and pelvis was performed with 100 mL Omnipaque-350 intravenous contrast. Automated exposure control and iterative reconstruction technique were employed. The dose- length product was 806.25 mGy-cm. Maximum intensity projection 3D- reconstructions of the aorta and other arteries were constructed by the technologist on a separate workstation. COMPARISON: CT abdomen and pelvis 12/24/2023, 09/20/23 FINDINGS: CHEST CTA: There is mild emphysema. There is smooth septal thickening in the lungs with mild groundglass opacities in the inferior lungs, consistent with mild pulmonary edema. A calcified left lung nodule and calcified left hilar lymph nodes are consistent with old granulomatous disease. No pleural effusion. The heart size is normal. There are coronary artery calcifications. No pericardial effusion. There is no pulmonary embolus. Aortic atherosclerosis is noted. There is severe stenosis of proximal left common carotid artery. There is mild bilateral gynecomastia. There is mild thoracic spondylosis. ABDOMEN AND PELVIS CTA: The liver demonstrates surface nodularity, consistent with cirrhosis. There is volume loss and low attenuation of segments 4A and 4B of the liver with thrombosis of the associated portal vein. There are gallstones in the gallbladder which is normal in size. Gallbladder wall thickening is likely secondary to chronic liver disease and interstitial edema. There is a chronic subcapsular hematoma of the spleen with maximum thickness of 9 mm without change. The pancreas and adrenal glands are normal. There is cortical thinning of the kidneys. There is a splenorenal shunt consistent with portal venous hypertension. The prostate is mildly enlarged. There are bilateral inguinal hernias containing fat. There is diverticulosis of the colon without evidence of diverticulitis. There are no dilated loops of bowel. The appendix is not visualized. There is mild periportal and aortocaval lymphadenopathy, likely reactive. There is a small volume of ascites. There are stents in the common iliac arteries. There is severe stenosis of superior mesenteric artery without change. There is mild stenosis of celiac axis and the renal arteries. There is n o significant stenosis of inferior mesenteric artery. There is osteonecrosis in the femoral heads. There is severe lumbar spondylosis. IMPRESSION: 1. Mild pulmonary edema. 2. Severe stenosis of proximal left common carotid artery. 3. Cirrhosis of the liver with portal venous hypertension. 4. Worsened distribution of low attenuation involving segments 4A and 4B of the liver with thrombus in the associated portal vein, consistent with a combination of infarct and hepatocellular carcinoma. 5. Mild periportal and aortocaval lymphadenopathy, likely reactive. 6. Small volume of ascites. 7. 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 Aguilar Status post cataract extraction of both eyes with insertion of intraocular lens Family History Family History (Updated 01/18/24 @ 21:54 by Marisel Anaya RN) Mother Family history of respiratory disorder Pneumonia cause of Alcohol abuse Father Cerebrovascular accident Sibling Drug overdose at age 39 Sibling at age 43 from health issues related to [place] Social History Social History Social History: He lives with his of 32 years. He has 2 grown daughters. 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 He used to smoke 2 packs of cigarettes per day but has cut down to 1 pack of cigarettes per day for the last year so. He is recovering alcoholic he used to drink at least a 6 pack of beer a day or 1/2 of a 5th of liquor a day but he stopped when he was diagnosed with hepatocellular carcinoma December 2022. Code status: DNR/DNI per patient request but patient does not actually have advanced directives in writing. Surrogate decision maker: Smoking packs per day: 1 Smoking cigarettes per day: 20.0 Years smoked: 55 Smoking pack-years: 55.00 Smoking status: Current every day smoker Tobacco type: cigarettes Additional smoking assessment comments: TAPERING DOWN TO 1 PACK/DAY CURRENTLY Alcohol intake: former Alcohol use details: QUIT 01/2023, HEAVY DRINKER FOR 30-40 YEARS 6 pack per day or a half of a 5th of liquor a day Substance use: former Other substance usage details: distant history of cocaine/marijuana use Do You Feel Safe in your Home?: Yes Lack of Transportation: No Lack of Food: Never True Current Housing: I Have Housing Concerned About Future Housing: No Difficulty Paying Gas/Electric Bills: No Difficulty Paying for Meds: No Currently Unemployed: No Education: Decline to Answer Difficulty w/ Childcare or Family Care: No Living arrangements: with family Additional living arrangements comments: Spiritual care concerns: No Meds Home Medications and Allergies Home Medications Medication Instructions Recorded Confirmed Type atorvastatin 20 mg tablet 20 mg PO DAILY 05/23/21 01/18/24 History insulin aspart (niacinamide) See Protocol subcut TID 05/23/21 01/18/24 History (U-100) 100 unit/mL subcutaneous solution (Fiasp U-100 Insulin) insulin degludec 100 unit/mL 40 unit subcut HS 05/23/21 01/18/24 History subcutaneous solution (Tresiba U-100 Insulin) pantoprazole 40 mg tablet,delayed 40 mg PO Q12H 05/23/21 01/18/24 History release pregabalin 50 mg capsule 50 mg PO Q8H 05/23/21 01/18/24 History zolpidem 10 mg tablet 10 mg PO HS 05/23/21 01/18/24 History amlodipine 5 mg tablet 5 mg PO QAM 02/07/23 01/18/24 History acetaminophen 500 mg capsule 500 mg PO BID PRN Pain 03/28/23 01/18/24 History albuterol sulfate 90 mcg/actuation 1 puff inhalation Q4-6H PRN 03/28/23 01/18/24 History aerosol inhaler Shortness Of Breath Or Wheezing metoclopramide HCl 10 mg tablet 10 mg PO Q6H PRN nausea and 07/24/23 01/18/24 Rx (Reglan) vomiting #14 tabs cetirizine 10 mg tablet 10 mg PO DAILY PRN allergies 01/18/24 01/18/24 History ferrous sulfate 325 mg (65 mg 325 mg PO DAILY 01/18/24 01/18/24 History iron) capsule,extended release hydroxyzine HCl 50 mg tablet 50 mg PO Q8H PRN Itching 01/18/24 01/18/24 History magnesium oxide 400 mg (241.3 mg 400 mg PO DAILY 01/18/24 01/18/24 History magnesium) tablet mecobalamin (vitamin B12) 1,000 1,000 mcg PO DAILY 01/18/24 01/18/24 History mcg chewable tablet (B12 Active) nadolol 40 mg tablet 40 mg PO DAILY 01/18/24 01/18/24 History rivaroxaban 20 mg tablet (Xarelto) 20 mg PO DAILY 01/18/24 01/18/24 History Allergies Allergy/AdvReac Type Severity Reaction Status Date / Time Penicillins Allergy Unknown Unknown Verified 01/18/24 21:25 doxycycline Allergy Rash Verified 01/18/24 21:25 torsemide Allergy Rash Verified 01/18/24 21:25 codeine AdvReac Unknown NAUSEA Verified 01/18/24 21:25 Vital Signs Vital Signs - 24 hr 01/18/24 13:56 01/18/24 15:21 01/18/24 15:23 Temperature 97.3 F L Pulse Rate 118 H 114 H Respiratory Rate 20 Blood Pressure 100/59 L Pulse Oximetry 100 100 Oxygen Delivery Room Air Room Air Oxygen Flow Rate 01/18/24 15:24 01/18/24 14:36 01/18/24 14:46 Temperature Pulse Rate 115 H Respiratory Rate 20 Blood Pressure 140/65 136/70 130/66 Pulse Oximetry 100 100 99 Oxygen Delivery Oxygen Flow Rate 01/18/24 15:01 01/18/24 15:16 01/18/24 15:46 Temperature Pulse Rate 116 H Respiratory Rate 19 Blood Pressure 139/72 140/65 144/69 H Pulse Oximetry 100 98 97 Oxygen Delivery Oxygen Flow Rate 01/18/24 16:16 01/18/24 16:31 01/18/24 17:13 Temperature Pulse Rate 121 H 134 H Respiratory Rate 18 21 H Blood Pressure 137/70 133/107 H Pulse Oximetry 98 90 Oxygen Delivery Non-Rebreather Mask Oxygen Flow Rate 15 01/18/24 17:16 01/18/24 16:59 01/18/24 17:16 Temperature Pulse Rate 138 H 136 H Respiratory Rate 19 27 H Blood Pressure 208/128 H 141/65 H Pulse Oximetry 95 94 Oxygen Delivery Non-Rebreather Mask Oxygen Flow Rate 15 01/18/24 17:22 01/18/24 17:26 01/18/24 17:29 Temperature Pulse Rate 129 H 122 H Respiratory Rate Blood Pressure 141/65 H 96/51 L Pulse Oximetry 100 Oxygen Delivery BiPAP Oxygen Flow Rate 01/18/24 17:35 01/18/24 17:28 01/18/24 17:30 Temperature Pulse Rate 121 H 126 H 124 H Respiratory Rate 26 H 24 H 26 H Blood Pressure 102/53 L 99/46 L 98/51 L Pulse Oximetry 97 97 97 Oxygen Delivery Oxygen Flow Rate 01/18/24 17:31 01/18/24 17:51 01/18/24 17:35 Temperature Pulse Rate 123 H 114 H 120 H Respiratory Rate 26 H 20 26 H Blood Pressure 96/51 L 111/56 L 102/53 L Pulse Oximetry 97 99 96 Oxygen Delivery Oxygen Flow Rate 01/18/24 17:41 01/18/24 17:46 01/18/24 17:55 Temperature Pulse Rate 118 H 117 H 113 H Respiratory Rate 25 H 24 H 22 H Blood Pressure 101/56 L 106/60 108/53 L Pulse Oximetry 97 98 99 Oxygen Delivery Oxygen Flow Rate 01/18/24 17:25 01/18/24 17:51 01/18/24 17:57 Temperature Pulse Rate 124 H 112 H 111 H Respiratory Rate 26 H 22 H 23 H Blood Pressure 111/56 L 108/53 L Pulse Oximetry 97 99 99 Oxygen Delivery BiPAP Oxygen Flow Rate 01/18/24 18:06 01/18/24 18:11 01/18/24 18:17 Temperature Pulse Rate 105 H 105 H 108 H Respiratory Rate 22 H 20 Blood Pressure 106/60 101/56 L 105/64 Pulse Oximetry 100 100 Oxygen Delivery Oxygen Flow Rate 01/18/24 18:21 01/18/24 18:26 01/18/24 18:31 Temperature Pulse Rate 106 H 104 H 109 H Respiratory Rate 23 H 23 H 21 H Blood Pressure 112/56 L 113/57 L 108/61 Pulse Oximetry 100 100 100 Oxygen Delivery Oxygen Flow Rate 01/18/24 19:21 01/18/24 19:26 01/18/24 19:31 Temperature Pulse Rate 102 H 99 96 Respiratory Rate 18 20 21 H Blood Pressure 114/64 120/74 123/66 Pulse Oximetry 100 100 100 Oxygen Delivery Oxygen Flow Rate Exam Narrative: sitting in bed Const: General: comfortable, no acute distress ( on BiPAP), well developed, alert, awake, ill appearing chronically and average body habitus Nutritional Appearance: average body habitus Orientation/consciousness: patient oriented x3 Other: on BiPAP HENMT: Head: normal to inspection, normocephalic and atraumatic Ears: hearing grossly normal bilaterally Face/Nose/Sinus: normal facial exam Face and sinus: normal facial exam Eyes: General: appearance normal, both eyes and all related structures Pupils: Equal, round and reactive pupils present EOM: EOMs intact bilaterally Neck: Neck: full ROM, no lymphadenopathy and no JVD Thyroid: thyroid normal Lymphatic: no lymphadenopathy noted Resp: Effort & Inspection: normal respiratory effort, able to speak in complete sentences, not labored, not tachypneic, no tripod positioning, no use of accessory muscles, symmetric chest movement and other ( on BiPAP) Auscultation: crackles and diminished lung sounds Cardio: Jugular venous distension: no JVD Rate: regular rate Rhythm: regular rhythm Heart sounds: S1 normal heart sound present and S2 normal heart sound present GI: GI Palp: Yes Soft to palpation and Yes No hepatosplenomegaly present : General: Yes deferred Skin: Rashes: no rashes Wounds: no wounds Neuro: General: patient oriented x3 and CN's II-XI intact bilaterally Cranial nerves: Yes CN's II-XII intact bilaterally and Yes Equal, round and reactive pupils present Cognition (Neuro): normal cognition Speech: normal speech Gait exam (Neuro): Normal gait present Motor exam (neuro): 5/5 motor strength present throughout Extrem: General: normal to inspection, full ROM, no joint enlargement and no pedal edema H&P: Results Labs Labs: Short CBC 01/18/24 Range/Units 14:11 WBC 8.7 (4.5-10.0) K/mm3 Hgb 11.0 L (14.0-18.0) g/dL Hct 32.0 L (42.0-52.0) % Plt Count 126 L (150-375) k/mm3 BMP 01/18/24 14:11 Sodium 135 L Potassium 4.4 Chloride 105 Carbon Dioxide 19 L BUN 24 H Creatinine 1.70 H Glucose 306 H Calcium 9.5 Cardiac Enzymes 01/18/24 01/18/24 Range/Units 14:11 17:03 Troponin I 0.013 0.070 H* D (0.000-0.034) ng/mL Liver Function 01/18/24 Range/Units 14:11 Total Bilirubin 0.6 (0.2-1.3) mg/dL AST 26 (17-59) U/L ALT 16 (6-50) U/L Alkaline Phosphatase 64 (38-126) U/L Albumin 4.4 (3.5-5.1) g/dL Assessment and Plan Assessment and plan (1) Chest pain: Code(s): R07.9 - Chest pain, unspecified Status: Acute Assessment and Plan: Admit to IMU patient with elevated troponin continue to trend troponin on heparin drip (2) Cirrhosis, alcoholic: Code(s): K70.30 - Alcoholic cirrhosis of liver without ascites Status: Acute Assessment and Plan: continue to monitor (3) CHF (congestive heart failure): Code(s): I50.9 - Heart failure, unspecified Status: Acute Assessment and Plan: diuresis needed daily intake and output (4) GERD (gastroesophageal reflux disease): Code(s): K21.9 - Gastro-esophageal reflux disease without esophagitis Status: Acute Assessment and Plan: PPI (5) HCC (hepatocellular carcinoma): Onset Date: 12/2022 Code(s): C22.0 - Liver cell carcinoma Status: Acute Assessment and Plan: patient is undergoing immunotherapy (6) Flash pulmonary edema: Code(s): J81.0 - Acute pulmonary edema Status: Acute Assessment and Plan: patient currently on BiPAP (7) Insulin dependent diabetes mellitus: Status: Acute Assessment and Plan: continue home meds (8) Alcohol abuse, in remission: Code(s): F10.11 - Alcohol abuse, in remission Status: Acute Assessment and Plan: supportive care (9) Continuous tobacco abuse: Code(s): Z72.0 - Tobacco use Status: Acute Assessment and Plan: nicotine patch as needed Hospitalist MIPS Advance Care Plan I have confirmed that the patient's Advanced Care Plan is present, code status is documented, or surrogate decision maker is listed in patient medical record.: Yes Medication Reconciliation I have utilized all available resources to obtain, update and review the patients current medications (includes all prescriptions, OTC, herbals, cannabis, and nutritional supplements).: Yes
[2024-01-18 20:52] LABS: Basophils Percent Auto 0.1 % (0.2-1.2); Hematocrit 31.7 % (42.0-52.0); Hemoglobin 10.8 g/dL (14.0-18.0); Immature Granulocyte Absolute 0.05 K/mm3 (0.00-0.031); Immature Granulocyte Percent A 0.5 % (0-0.5); Lymphocytes Absolute Auto 0.33 K/mm3 (0.9-3.2); Mean Corpuscular HGB Conc 34.1 g/dl (32-36); Mean Corpuscular Volume 93.8 fl (80-100); Mean Platelet Volume 9.9 fl (7.4-10.4); Monocytes Absolute Auto 0.7 K/mm3 (0.1-0.6); Monocytes Percent Auto 6.4 % (2.6-8.5); Platelet Count Result 143 k/mm3 (150-375); Red Blood Count 3.38 M/mm3 (4.6-6.20); Red Cell Distribution Width 13.3 % (11.5-14.5); White Blood Count 11.1 K/mm3 (4.5-10.0)
[2024-01-18 21:12] LABS: INR 1.4
[2024-01-18 21:13] LABS: Partial Thromboplastin Time 36.1 Seconds (22.3-36.8)
[2024-01-18 21:16] LABS: Troponin I 0.265 ng/mL (0.000-0.034)
--- NOTE | 2024-01-18 22:14 | PC.NURSE ---
This patient, Daniel Treviño, was admitted to IMU Room 201-01. Patient/family oriented to hospital policies and general routines including ID bracelet, bed and alarms, visiting hours, pain management, procedures, bathroom and other care routines, personal items, smoking policy, room service/diet, and visiting hours. Information on how to activate the Rapid Response Team has been discussed. Patient/Family are encouraged to report perceived risks to care and to ask questions if they do not understand what they are told or what they should do.
[2024-01-19] VITALS (17 sets, daily range): BP systolic 102–125; BP diastolic 51–59; PULSE 80–106; RESP 19–25; TEMP 36.2–37.1; O2SAT 96–100
[2024-01-19 01:26] LABS: Partial Thromboplastin Time 42.4 Seconds (22.3-36.8)
[2024-01-19] MEDS: HEPARIN SODIUM 5,000 UNITS/ML VIAL 4000 UNITS IV PUSH (01:36)
[2024-01-19] MEDS: PREGABALIN (*CRX) 50 MG CAPSULE PO ×3 (04:19→21:55)
--- NOTE | 2024-01-19 06:00 | ECHO_ITS ---
Patient Info Name: Daniel Treviño Age: 68 years : 1955 Gender: Male Ht: 71 in Wt: 180 lbs BSA: 2.03 m2 HR: 96 bpm BP: 107 / 55 mmHg Heart Rhythm: Sinus Rhythm Technical Quality: Good Exam Date: 01/19/2024 7:20 AM Exam Location: Echo Lab Patient Status: Inpatient Admit Date: 01/18/2024 Staff Ordering Physician: Jus Damon MD Glove Pairer: Myesha Manzanares RDCS Attending Provider: Daniel Meraz MD Referring Physician: Nelson PUVRIS; Exam Type: CA echo doppler color flow Study Info Indications - evaluate chf Complete two-dimensional, color flow and Doppler transthoracic echocardiogram is performed. Summary 1. Complete two-dimensional, color flow and Doppler transthoracic echocardiogram is performed. 2. Left ventricular chamber dimension is normal. 3. Left ventricular systolic function is mildly reduced with an ejection fraction by Biplane Method of Discs of 51 %. 4. Left ventricular wall thickness is mildly increased. 5. The left ventricular diastolic function is grade I diastolic dysfunction. 6. Right ventricular chamber dimension is normal. 7. Right ventricular systolic function is normal. 8. There is mild aortic valve stenosis with a peak velocity of 244 cm/s, mean gradient of 16 mmHg, and aortic valve area of 1.6 cm2. 9. Mild pulmonary hypertension, estimated pulmonary arterial systolic pressure is 63 mmHg. 10. There is mild to moderate posteriorly directed eccentric mitral valve regurgitation. Left Ventricle Left ventricular chamber dimension is normal. Left ventricular wall thickness is mildly increased. Left ventricular systolic function is mildly reduced with an ejection fraction by Biplane Method of Discs of 51 %. The left ventricular diastolic function is grade I diastolic dysfunction. Right Ventricle Right ventricular chamber dimension is normal. Right ventricular systolic function is normal. Left Atria Left atrial chamber dimension is enlarged. Right Atria Right atrial chamber dimension is normal. Aortic Valve There is mild aortic valve sclerosis. There is mild aortic valve stenosis with a peak velocity of 244 cm/s, mean gradient of 16 mmHg, and aortic valve area of 1.6 cm2. There is no aortic valve regurgitation. Mitral Valve The mitral valve has normal leaflets. There is mild to moderate posteriorly directed eccentric mitral valve regurgitation. Tricuspid Valve There is mild tricuspid valve regurgitation. Mild pulmonary hypertension, estimated pulmonary arterial systolic pressure is 63 mmHg. Pericardium/Pleural There is no pericardial effusion. Inferior Vena Cava Normal inferior vena cava with >50% collapse upon inspiration consistent with normal right atrial pressure, 5 mmHg. Aorta The aortic root size at the sinus of Valsalva is normal. The prox ascending aorta size is normal. Left Ventricular Outflow Tract Name Value Normal LVOT 2D LVOT Diameter 2.0 cm LVOT Doppler LVOT Peak Gradient 4 mmHg LVOT Mean Gradient 3 mmHg LVOT VTI 26 cm LVOT VTI/AV VTI Ratio 0.5 LVOT Stroke Volume 81 ml LVOT CO 7.0 l/min LVOT CI 3.4 l/min/m2 Pulmonic Valve Name Value Normal PV Doppler PV Peak Gradient 5 mmHg Mitral Valve Name Value Normal MV Doppler MV Decel [place] 599 cm/s2 MV PHT 66 ms MV Area (PHT) 3.3 cm2 4.0-5.0 MV Regurgitation Doppler MR Peak Gradient 79 mmHg MV Diastolic Function MV E Peak Velocity 137 cm/s MV A Peak Velocity 142 cm/s MV E/A 1.0 MV Decel Time 229 ms MV Annular TDI MV E/e' (Septal) 28.7 <=8.0 MV E/e' (Lateral) 11.4 <=8.0 MV E/e' (Average) 20.0 Tricuspid Valve Name Value Normal TV Regurgitation Doppler TR Peak Velocity 381 cm/s TR Peak Gradient 58 mmHg Estimated PAP/RSVP RA Pressure 5 mmHg <=5 PA Systolic Pressure 63 mmHg <36 RV Systolic Pressure 63 mmHg <36 Aortic Valve Name Value Normal AV Doppler AV Peak Velocity 244 cm/s AV Peak Gradient 24 mmHg AV Mean Gradient 16 mmHg AV VTI 52 cm AV Area (Cont Eq VTI) 1.6 cm2 >=3.0 AV Area (Cont Eq Terrence) 1.3 cm2 AV Regurgitation 2D LVOT Area 3.1 cm2 Ventricles Name Value Normal LV Dimensions 2D/MM IVS Diastolic Thickness (2D) 1.1 cm 0.6-1.0 LVID Diastole (2D) 4.7 cm 4.2-5.8 LVIW Diastolic Thickness (2D) 1.0 cm 0.6-1.0 LVID Systole (2D) 3.2 cm 2.5-4.0 LVOT Diameter 2.0 cm LV Mass (2D Cubed) 177.67 g 88.00-224.00 LV Mass Index (2D Cubed) 88 g/m2 49-115 Relative Wall Thickness (2D) 0.42 LV Fractional Shortening/Ejection Fraction 2D/MM LV Fractional Shortening (2D) 32 % 25-43 LV EF (2D Teicholz) 61 % 52-72 LV Diastolic Volume (4C MOD) 133 ml LV EF (4C MOD) 46 % LV Diastolic Volume (2C MOD) 112 ml LV EF (2C MOD) 53 % LV Diastolic Volume (BP MOD) 136 ml 62-150 LV Diastolic Volume Index (BP MOD) 67 ml/m2 34-74 LV Systolic Volume (BP MOD) 66 ml 21-61 LV Systolic Volume Index (BP MOD) 32 ml/m2 11-31 LV EF (BP MOD) 51 % 52-72 LV Diastolic Length (4C) 9.1 cm LV Systolic Length (4C) 7.2 cm LV Stroke Volume (4C MOD) 61 ml Atria Name Value Normal LA Dimensions LA Volume (4C A-L) 66 ml LA Volume (BP A-L) 55 ml RA Dimensions RA Area (4C) 15.3 cm2 <=18.0 Report Signatures
--- NOTE | 2024-01-19 07:36 | PM.IMPN ---
Progress Note: A&P Assessment and Plan (1) Chest pain: Code(s): R07.9 - Chest pain, unspecified Status: Acute (2) Cirrhosis, alcoholic: Code(s): K70.30 - Alcoholic cirrhosis of liver without ascites Status: Acute (3) CHF (congestive heart failure): Code(s): I50.9 - Heart failure, unspecified Status: Acute (4) GERD (gastroesophageal reflux disease): Code(s): K21.9 - Gastro-esophageal reflux disease without esophagitis Status: Acute (5) HCC (hepatocellular carcinoma): Onset Date: 12/2022 Code(s): C22.0 - Liver cell carcinoma Status: Acute (6) Flash pulmonary edema: Code(s): J81.0 - Acute pulmonary edema Status: Acute (7) Insulin dependent diabetes mellitus: Status: Acute (8) Alcohol abuse, in remission: Code(s): F10.11 - Alcohol abuse, in remission Status: Acute (9) Continuous tobacco abuse: Code(s): Z72.0 - Tobacco use Status: Acute Plan Non ST elevation PA -Heparin drip -possible catheterization tomorrow -Increase trend in Troponin : 0.013>0.070>0.265 -BNP : 8290 -ECHO pending -Atorvastatin 20 mg and aspirin 81 mg -Cardiology consulted -continue heparin drip and give sublingual nitro if needed -Echocardiogram pending -Denies any illicit drug use -Reviewed EKG and CXR PNA/Hypersensitivity Pneumonitis -Order Levo -reviewed chest x-ray - Prednisone 40 mg p.o. q.d. for 5 days -recurrent episodes after immunotherapy HCC -On immunotherapy -Follows Dr Cassidy as OP DM -hold home medication -on insulin sliding scale Subjective Date/time seen: 01/19/24 07:36 Interval history: 68-year-old male presenting ED for chest pain and shortness of breath. Patient says that he received his immunotherapy for his liver cancer earlier Yesterday morning. That evening he developed what he describes as a being punched in the chest. It is nonradiating 7/10 10 in intensity and getting worse. patient says that he had pain like this last time he had the fusion but not nearly as severe and quickly resolved. Patient has nausea shortness of breath. No vomiting. No fevers chills abdominal pain lower extremity edema. No history of heart failure. Differential diagnosis PA vs PE vs Hypersensitivity Pneumonitis after immunotherapy. Increase trend in Troponin : 0.013>0.070>0.265 BNP : 8290 EKG : LBBB ( No previous EKG for CXR : .1) Airspace opacities in left lower lung zone, consistent with atelectasis versus pneumonia. 2. Compression of the port catheter between the clavicle and first rib. CTA Chest/abdomen/Pelvis CTA: 1. Mild pulmonary edema. 2. Severe stenosis of proximal left common carotid artery. 3. Cirrhosis of the liver with portal venous hypertension. 4. Worsened distribution of low attenuation involving segments 4A and 4B of the liver with thrombus in the associated portal vein, consistent with a combination of infarct and hepatocellular carcinoma. 5. Mild periportal and aortocaval lymphadenopathy, likely reactive. 6. Small volume of ascites. 7. 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 Review of Systems Review of Systems: ROS unobtainable: Yes unobtainable due to medical condition ( respiratory failure on BiPAP) Exam Narrative: sitting in bed Const: General: comfortable, no acute distress ( on BiPAP), well developed, alert, awake, ill appearing chronically and average body habitus Nutritional Appearance: average body habitus Orientation/consciousness: patient oriented x3 Other: on BiPAP HENMT: Head: normal to inspection, normocephalic and atraumatic Ears: hearing grossly normal bilaterally Face/Nose/Sinus: normal facial exam Face and sinus: normal facial exam Eyes: General: appearance normal, both eyes and all related structures Pupils: Equal, round and reactive pupils present EOM: EOMs intact bilaterally Neck: Neck: full ROM, no lymphadenopathy and no JVD Thyroid: thyroid normal Lymphatic: no lymphadenopathy noted Resp: Effort & Inspection: normal respiratory effort, able to speak in complete sentences, not labored, not tachypneic, no tripod positioning, no use of accessory muscles, symmetric chest movement and other ( on BiPAP) Auscultation: crackles and diminished lung sounds Cardio: Jugular venous distension: no JVD Rate: regular rate Rhythm: regular rhythm Heart sounds: S1 normal heart sound present and S2 normal heart sound present : General: Yes deferred Skin: Rashes: no rashes Wounds: no wounds Neuro: General: patient oriented x3 and CN's II-XI intact bilaterally Cranial nerves: Yes CN's II-XII intact bilaterally and Yes Equal, round and reactive pupils present Cognition (Neuro): normal cognition Speech: normal speech Gait exam (Neuro): Normal gait present Motor exam (neuro): 5/5 motor strength present throughout Extrem: General: normal to inspection, full ROM, no joint enlargement and no pedal edema Objective Data Vital Signs Vital Signs: Vital Signs - 24 hr 01/18/24 13:56 01/18/24 15:21 01/18/24 15:23 Temperature 97.3 F L Pulse Rate 118 H 114 H Respiratory Rate 20 Blood Pressure 100/59 L Pulse Oximetry 100 100 Oxygen Delivery Room Air Room Air Oxygen Flow Rate Fraction of Inspired Oxygen 01/18/24 15:24 01/18/24 14:36 01/18/24 14:46 Temperature Pulse Rate 115 H Respiratory Rate 20 Blood Pressure 140/65 136/70 130/66 Pulse Oximetry 100 100 99 Oxygen Delivery Oxygen Flow Rate Fraction of Inspired Oxygen 01/18/24 15:01 01/18/24 15:16 01/18/24 15:46 Temperature Pulse Rate 116 H Respiratory Rate 19 Blood Pressure 139/72 140/65 144/69 H Pulse Oximetry 100 98 97 Oxygen Delivery Oxygen Flow Rate Fraction of Inspired Oxygen 01/18/24 16:16 01/18/24 16:31 01/18/24 17:13 Temperature Pulse Rate 121 H 134 H Respiratory Rate 18 21 H Blood Pressure 137/70 133/107 H Pulse Oximetry 98 90 Oxygen Delivery Non-Rebreather Mask Oxygen Flow Rate 15 Fraction of Inspired Oxygen 01/18/24 17:16 01/18/24 16:59 01/18/24 17:16 Temperature Pulse Rate 138 H 136 H Respiratory Rate 19 27 H Blood Pressure 208/128 H 141/65 H Pulse Oximetry 95 94 Oxygen Delivery Non-Rebreather Mask Oxygen Flow Rate 15 Fraction of Inspired Oxygen 01/18/24 17:22 01/18/24 17:26 01/18/24 17:29 Temperature Pulse Rate 129 H 122 H Respiratory Rate Blood Pressure 141/65 H 96/51 L Pulse Oximetry 100 Oxygen Delivery BiPAP Oxygen Flow Rate Fraction of Inspired Oxygen 01/18/24 17:35 01/18/24 17:28 01/18/24 17:30 Temperature Pulse Rate 121 H 126 H 124 H Respiratory Rate 26 H 24 H 26 H Blood Pressure 102/53 L 99/46 L 98/51 L Pulse Oximetry 97 97 97 Oxygen Delivery Oxygen Flow Rate Fraction of Inspired Oxygen 01/18/24 17:31 01/18/24 17:51 01/18/24 17:35 Temperature Pulse Rate 123 H 114 H 120 H Respiratory Rate 26 H 20 26 H Blood Pressure 96/51 L 111/56 L 102/53 L Pulse Oximetry 97 99 96 Oxygen Delivery Oxygen Flow Rate Fraction of Inspired Oxygen 01/18/24 17:41 01/18/24 17:46 01/18/24 17:55 Temperature Pulse Rate 118 H 117 H 113 H Respiratory Rate 25 H 24 H 22 H Blood Pressure 101/56 L 106/60 108/53 L Pulse Oximetry 97 98 99 Oxygen Delivery Oxygen Flow Rate Fraction of Inspired Oxygen 01/18/24 17:25 01/18/24 17:51 01/18/24 17:57 Temperature Pulse Rate 124 H 112 H 111 H Respiratory Rate 26 H 22 H 23 H Blood Pressure 111/56 L 108/53 L Pulse Oximetry 97 99 99 Oxygen Delivery BiPAP Oxygen Flow Rate Fraction of Inspired Oxygen 01/18/24 18:06 01/18/24 18:11 01/18/24 18:17 Temperature Pulse Rate 105 H 105 H 108 H Respiratory Rate 22 H 20 Blood Pressure 106/60 101/56 L 105/64 Pulse Oximetry 100 100 Oxygen Delivery Oxygen Flow Rate Fraction of Inspired Oxygen 01/18/24 18:21 01/18/24 18:26 01/18/24 18:31 Temperature Pulse Rate 106 H 104 H 109 H Respiratory Rate 23 H 23 H 21 H Blood Pressure 112/56 L 113/57 L 108/61 Pulse Oximetry 100 100 100 Oxygen Delivery Oxygen Flow Rate Fraction of Inspired Oxygen 01/18/24 19:21 01/18/24 19:26 01/18/24 19:31 Temperature Pulse Rate 102 H 99 96 Respiratory Rate 18 20 21 H Blood Pressure 114/64 120/74 123/66 Pulse Oximetry 100 100 100 Oxygen Delivery Oxygen Flow Rate Fraction of Inspired Oxygen 01/18/24 19:36 01/18/24 19:41 01/18/24 19:50 Temperature Pulse Rate 92 91 96 Respiratory Rate 14 13 19 Blood Pressure 115/66 117/65 121/79 Pulse Oximetry 100 100 100 Oxygen Delivery Oxygen Flow Rate Fraction of Inspired Oxygen 01/18/24 19:56 01/18/24 20:01 01/18/24 20:06 Temperature Pulse Rate 95 92 98 Respiratory Rate 15 17 19 Blood Pressure 125/68 128/73 123/85 Pulse Oximetry 100 100 100 Oxygen Delivery Oxygen Flow Rate Fraction of Inspired Oxygen 01/18/24 20:16 01/18/24 20:21 01/18/24 20:25 Temperature Pulse Rate 100 102 H 98 Respiratory Rate 18 18 17 Blood Pressure 132/80 123/72 128/75 Pulse Oximetry 100 100 100 Oxygen Delivery Oxygen Flow Rate Fraction of Inspired Oxygen 01/18/24 20:31 01/18/24 20:46 01/18/24 21:22 Temperature Pulse Rate 95 102 H 106 H Respiratory Rate 14 20 16 Blood Pressure 125/69 113/90 Pulse Oximetry 100 100 97 Oxygen Delivery BiPAP Oxygen Flow Rate Fraction of Inspired Oxygen 01/18/24 21:23 01/18/24 22:00 01/18/24 22:35 Temperature 97.3 F L Pulse Rate 105 H 94 Respiratory Rate 24 H 21 H Blood Pressure 134/68 Pulse Oximetry 100 100 100 Oxygen Delivery BiPAP BiPAP Oxygen Flow Rate Fraction of Inspired Oxygen 50 01/18/24 22:00 01/18/24 21:20 01/18/24 23:40 Temperature 97.3 F L Pulse Rate 100 105 H 91 Respiratory Rate 24 H Blood Pressure 128/72 Pulse Oximetry 100 Oxygen Delivery Oxygen Flow Rate Fraction of Inspired Oxygen 01/19/24 00:00 01/19/24 00:00 01/19/24 01:47 Temperature Pulse Rate 90 91 Respiratory Rate Blood Pressure Pulse Oximetry 100 Oxygen Delivery BiPAP Oxygen Flow Rate Fraction of Inspired Oxygen 40 01/19/24 02:37 01/19/24 04:33 01/19/24 04:15 Temperature 97.3 F L Pulse Rate 99 91 Respiratory Rate 25 H 22 H Blood Pressure 117/59 L Pulse Oximetry 100 97 96 Oxygen Delivery BiPAP Room Air Oxygen Flow Rate Fraction of Inspired Oxygen 01/19/24 04:00 01/19/24 06:00 01/18/24 21:25 Temperature Pulse Rate 84 96 105 H Respiratory Rate 24 H Blood Pressure 134/68 Pulse Oximetry Oxygen Delivery Oxygen Flow Rate Fraction of Inspired Oxygen Intake/Output Intake/Output: Intake & Output 01/16/24 01/17/24 01/18/24 01/19/24 23:59 23:59 23:59 23:59 Intake Total 3.0 666.5 Output Total 1000 Balance 3.0 -333.5 Meds/Results Medications: Active Medications Generic Name Dose Route Start Last Admin Trade Name Freq PRN Reason Stop Dose Admin Acetaminophen 500 mg 01/19/24 02:23 Acetaminophen 500 Mg Tablet PO BID PRN Pain 1-3 Amlodipine Besylate 5 mg 01/19/24 09:00 Amlodipine Besylate 5 Mg Tablet PO QAM [facility] Atorvastatin Calcium 20 mg 01/19/24 09:00 Atorvastatin 20 Mg Tablet PO DAILY [facility] Dextrose 12.5 gm 01/19/24 05:25 Dextrose 50% 25 Gm/50 Ml Syringe IV PUSH PRN PRN Hypoglycemia Protocol Ferrous Sulfate 325 mg 01/19/24 09:00 Ferrous Sulfate [address] PO DAILY [facility] Glucagon 1 mg 01/19/24 05:25 Glucagon For Inj 1 Mg Vial IM PRN PRN Hypoglycemia Protocol Glucose 15 gm 01/19/24 05:25 Glucose Oral Gel 15 Gm Of Glucse In 37.5 Gm Tube PO PRN PRN Hypoglycemia Protocol Heparin Sodium (Porcine) 4,000 units 01/18/24 18:28 01/19/24 01:36 Heparin Sodium 5,000 Units/Ml Vial IV PUSH 4,000 units PRN PRN Administration aPTT less than 55 seconds Heparin Sodium (Porcine) 3,500 units 01/18/24 18:28 Heparin Sodium 5,000 Units/Ml Vial IV PUSH PRN PRN aPTT 55 - 70 seconds Hydroxyzine HCl 50 mg 01/19/24 02:23 Hydroxyzine Hcl 25 Mg Tablet PO Q8H PRN Itching Heparin Sodium/Dextrose 25,000 units in 250 mls @ 13 mls/hr 01/18/24 18:30 01/19/24 01:36 Heparin Sodium/D5w 100 Units/Ml IV CONT 1,300 units/hr .[id number] DAVIDA 13 mls/hr Titration Protocol 1,300 UNITS/HR Dextrose 1,000 mls @ 100 mls/hr 01/19/24 05:25 Dextrose 5% 1,000 Ml IVPB PRN PRN Hypoglycemia Protocol Insulin Aspart 3 - 6 units 01/19/24 08:00 Insulin Aspart (*Bkc) 100 Units/Ml SUB-Q TIDWM DAVIDA Protocol Insulin Aspart 1 - 3 units 01/19/24 21:00 Insulin Aspart (*Bkc) 100 Units/Ml SUB-Q HS DAVIDA Protocol Insulin Glargine 40 units 01/19/24 21:00 Insulin Glargine (*Bkc) 100 Units/Ml SUB-Q HS DAVIDA Loratadine 10 mg 01/19/24 02:28 Loratadine 10 Mg Tablet PO QAM PRN allergies Magnesium Oxide 400 mg 01/19/24 09:00 Magnesium Oxide 400 Mg Tablet PO DAILY DAVIDA Nadolol 40 mg 01/19/24 09:00 Nadolol 20 Mg Tablet PO DAILY DAVIDA Pantoprazole Sodium 40 mg 01/19/24 09:00 Pantoprazole 40 Mg Tablet PO Q12HR DAVIDA Perflutren Lipid Microsphere 0 ml 01/18/24 18:37 Perflutren Lipid Microspheres 1.5 Ml Vial Diluted To 10 Ml Total Volume IV PUSH 01/21/24 18:41 ONCE PRN adequate visualization Protocol Pregabalin 50 mg 01/19/24 06:00 01/19/24 04:19 Pregabalin (*Crx) 50 Mg Capsule PO 50 mg Q8HR DAVIDA Administration Radiology Results: ITS Impressions Chest X-Ray 01/18/24 14:57 IMPRESSION: 1. Airspace opacities in left lower lung zone, consistent with atelectasis versus pneumonia. 2. Compression of the port catheter between the clavicle and first rib. Chest/Abdomen/Pelvis CTA 01/18/24 17:05 IMPRESSION: 1. Mild pulmonary edema. 2. Severe stenosis of proximal left common carotid artery. 3. Cirrhosis of the liver with portal venous hypertension. 4. Worsened distribution of low attenuation involving segments 4A and 4B of the liver with thrombus in the associated portal vein, consistent with a combination of infarct and hepatocellular carcinoma. 5. Mild periportal and aortocaval lymphadenopathy, likely reactive. 6. Small volume of ascites. 7. 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 Labs Labs: Laboratory Results - last 24 hr 01/18/24 01/18/24 01/18/24 14:10 14:11 17:03 WBC 8.7 RBC 3.42 L Hgb 11.0 L Hct 32.0 L MCV 93.6 MCH 32.2 MCHC 34.4 RDW 13.2 Plt Count 126 L MPV 9.6 Immature Gran % (Auto) 0.9 H Neut % (Auto) 90.5 H Lymph % (Auto) 3.0 L [place] % (Auto) 5.5 Eos % (Auto) 0.0 Baso % (Auto) 0.1 L Lymph # (Auto) 0.26 L [place] # (Auto) 0.5 Eos # (Auto) 0.0 Baso # (Auto) 0.0 Abs Immat Gran (auto) 0.08 H Absolute Neuts (auto) 7.9 H Absolute Nucleated RBC 0.000 Nucleated RBC % 0.0 Platelet Estimate Slightly decreased Large Platelets Present Anisocytosis 1+ Schistocytes None seen PT 18.1 H INR 1.4 APTT 32.3 D-Dimer 0.66 H Puncture Site ABG pH ABG pCO2 ABG pO2 ABG PO2/FiO2 Ratio ABG HCO3 ABG O2 Saturation ABG O2 Content ABG Base Excess A-a Gradient Oxyhemoglobin Total Hemoglobin O2 Delivery Device O2 Liters/Min Vent Rate FiO2 Expiratory Pressure Inspiratory Pressure Sodium 135 L Potassium 4.4 Chloride 105 Carbon Dioxide 19 L Anion Gap 11 BUN 24 H Creatinine 1.70 H Estim Creat Clear Calc 40 Estimated GFR 40 L Glucose 306 H Calcium 9.5 Total Bilirubin 0.6 AST 26 ALT 16 Alkaline Phosphatase 64 Troponin I 0.013 0.070 H* D NT-Pro-B Natriuret Pep 8290 H Total Protein 8.0 Albumin 4.4 Lipase 75 01/18/24 01/18/24 01/18/24 17:41 20:41 20:42 WBC 11.1 H RBC 3.38 L Hgb 10.8 L Hct 31.7 L MCV 93.8 MCH 32.0 MCHC 34.1 RDW 13.3 Plt Count 143 L MPV 9.9 Immature Gran % (Auto) 0.5 Neut % (Auto) 90.0 H Lymph % (Auto) 3.0 L [place] % (Auto) 6.4 Eos % (Auto) 0.0 Baso % (Auto) 0.1 L Lymph # (Auto) 0.33 L [place] # (Auto) 0.7 H Eos # (Auto) 0.0 Baso # (Auto) 0.0 Abs Immat Gran (auto) 0.05 H Absolute Neuts (auto) 10.0 H Absolute Nucleated RBC 0.000 Nucleated RBC % 0.0 Platelet Estimate Large Platelets Anisocytosis Schistocytes PT 18.0 H INR 1.4 APTT 36.1 D-Dimer Puncture Site Left brachial ABG pH 7.312 L ABG pCO2 30.2 L ABG pO2 68.9 L ABG PO2/FiO2 Ratio 1.38 ABG HCO3 14.9 L ABG O2 Saturation 92.6 L ABG O2 Content 13.7 L ABG Base Excess -10.1 A-a Gradient 253.6 Oxyhemoglobin 90.8 Total Hemoglobin 10.7 L O2 Delivery Device Non-invasive vent O2 Liters/Min 0.0 Vent Rate 12 FiO2 50 Expiratory Pressure 5 Inspiratory Pressure 10 Sodium Potassium Chloride Carbon Dioxide Anion Gap BUN Creatinine Estim Creat Clear Calc Estimated GFR Glucose Calcium Total Bilirubin AST ALT Alkaline Phosphatase Troponin I 0.265 H* D NT-Pro-B Natriuret Pep Total Protein Albumin Lipase 01/19/24 01:07 WBC RBC Hgb Hct MCV MCH MCHC RDW Plt Count MPV Immature Gran % (Auto) Neut % (Auto) Lymph % (Auto) [place] % (Auto) Eos % (Auto) Baso % (Auto) Lymph # (Auto) [place] # (Auto) Eos # (Auto) Baso # (Auto) Abs Immat Gran (auto) Absolute Neuts (auto) Absolute Nucleated RBC Nucleated RBC % Platelet Estimate Large Platelets Anisocytosis Schistocytes PT INR APTT 42.4 H D-Dimer Puncture Site ABG pH ABG pCO2 ABG pO2 ABG PO2/FiO2 Ratio ABG HCO3 ABG O2 Saturation ABG O2 Content ABG Base Excess A-a Gradient Oxyhemoglobin Total Hemoglobin O2 Delivery Device O2 Liters/Min Vent Rate FiO2 Expiratory Pressure Inspiratory Pressure Sodium Potassium Chloride Carbon Dioxide Anion Gap BUN Creatinine Estim Creat Clear Calc Estimated GFR Glucose Calcium Total Bilirubin AST ALT Alkaline Phosphatase Troponin I NT-Pro-B Natriuret Pep Total Protein Albumin Lipase Hospitalist MIPS Advance Care Plan I have confirmed that the patient's Advanced Care Plan is present, code status is documented, or surrogate decision maker is listed in patient medical record.: Yes Medication Reconciliation I have utilized all available resources to obtain, update and review the patients current medications (includes all prescriptions, OTC, herbals, cannabis, and nutritional supplements).: Yes
[2024-01-19 07:59] LABS: Basophils Percent Auto 0.2 % (0.2-1.2); Hematocrit 28.8 % (42.0-52.0); Immature Granulocyte Absolute 0.05 K/mm3 (0.00-0.031); Immature Granulocyte Percent A 0.8 % (0-0.5); Lymphocytes Percent Auto 6.1 % (18.3-44.2); Mean Corpuscular HGB Conc 34.7 g/dl (32-36); Mean Corpuscular Hemoglobin 32.1 pg (26-34); Mean Corpuscular Volume 92.3 fl (80-100); Mean Platelet Volume 9.4 fl (7.4-10.4); Monocytes Absolute Auto 0.4 K/mm3 (0.1-0.6); Monocytes Percent Auto 6.7 % (2.6-8.5); Neutrophils Absolute Auto 5.6 K/mm3 (1.3-6.7); Neutrophils Percent Auto 86.2 % (45.5-73.1); Platelet Count Result 115 k/mm3 (150-375); Red Blood Count 3.12 M/mm3 (4.6-6.20); Red Cell Distribution Width 13.2 % (11.5-14.5); White Blood Count 6.5 K/mm3 (4.5-10.0)
[2024-01-19 08:28] LABS: Glucose Point of Care 217 mg/dl (65-105)
[2024-01-19 08:35] LABS: Partial Thromboplastin Time 77.8 Seconds (22.3-36.8)
[2024-01-19] MEDS: ATORVASTATIN 20 MG TABLET PO ×2 (08:47→12:47)
[2024-01-19] MEDS: FERROUS SULFATE 325 MG TABLET DR PO (08:47)
[2024-01-19] MEDS: MAGNESIUM OXIDE 400 MG TABLET PO (08:47)
[2024-01-19] MEDS: PANTOPRAZOLE 40 MG TABLET PO ×2 (08:47→21:55)
[2024-01-19] MEDS: amLODIPine BESYLATE 5 MG TABLET PO (08:48)
[2024-01-19] MEDS: INSULIN ASPART (*BKC) 100 UNITS/ML SUB-Q ×4 (08:52→21:56)
--- NOTE | 2024-01-19 11:46 | PC.NURSE ---
Reviewed and Acknowledge charting [facility] [place]
--- NOTE | 2024-01-19 11:47 | P.CONCA_ITS ---
Assessment and Plan Assessment and plan (1) NSTEMI (non-ST elevated myocardial infarction): Code(s): I21.4 - Non-ST elevation (NSTEMI) myocardial infarction Status: Acute Plan 1. NSTEMI 2. CKD 3 3. Hepatocellular cancer 4. Chronic smoker 5. Cirrhosis with portal hypertension -his liver functions and platelets are stable. No history of variceal bleed or bleeding from any source -continue - heparin infusion -he will need a left heart catheterization to define his coronary anatomy. -will perform a left heart catheterization tomorrow as did receive contrast yesterday for CTA and his baseline creatinine is between 1.2-2 -we may only perform a diagnostic catheterization tomorrow, and may bring him if needed for a PCI to minimize contrast given in one setting -start aspirin 81 mg, statin -continue beta-yany -the risk benefits and alternatives of cardiac catheterization were discussed with him. He understood the risk and wants to proceed History of Present Illness History of Present Illness Consult date/time: 01/19/24 11:47 Reason For Visit: CHF/NSTEMI Narrative: 68-year-old male known to have HCC on immunotherapy, chronic smoker still continues to smoke, CKD with creatinine ranging from 1.2-2. He was admitted with sudden onset chest pain and dyspnea after his immunotherapy infusion. Chest pain was retrosternal 7 x 10 in intensity. ECG at that time showed normal sinus rhythm, left bundle branch block Troponin : 0.013>0.070>0.265 BNP : 8290 CXR : .1) Airspace opacities in left lower lung zone, consistent with atelectasis versus pneumonia. 2. Compression of the port catheter between the clavicle and first rib. CTA Chest/abdomen/Pelvis CTA: 1. Mild pulmonary edema. 2. Severe stenosis of proximal left common carotid artery. 3. Cirrhosis of the liver with portal venous hypertension. 4. Worsened distribution of low attenuation involving segments 4A and 4B of the liver with thrombus in the associated portal vein, consistent with a combination of infarct and hepatocellular carcinoma. 5. Mild periportal and aortocaval lymphadenopathy, likely reactive. 6. Small volume of ascites. 7. 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 Currently at time of my evaluation he denies any chest pain Dyspnea improved on BiPAP Creatinine 1.7 was 1.5 yesterday. 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 Aguilar Status post cataract extraction of both eyes with insertion of intraocular lens Family History Family History (Updated 01/18/24 @ 21:54 by Marisel Anaya, RN) Mother Family history of respiratory disorder Pneumonia cause of Alcohol abuse Father Cerebrovascular accident Sibling Drug overdose at age 39 Sibling at age 43 from health issues related to [place] Social History Social History Social History: He lives with his of 32 years. He has 2 grown daughters. 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 He used to smoke 2 packs of cigarettes per day but has cut down to 1 pack of cigarettes per day for the last year so. He is recovering alcoholic he used to drink at least a 6 pack of beer a day or 1/2 of a 5th of liquor a day but he stopped when he was diagnosed with hepatocellular carcinoma December 2022. Code status: DNR/DNI per patient request but patient does not actually have advanced directives in writing. Surrogate decision maker: Smoking packs per day: 1 Smoking cigarettes per day: 20.0 Years smoked: 55 Smoking pack-years: 55.00 Smoking status: Current every day smoker Tobacco type: cigarettes Additional smoking assessment comments: TAPERING DOWN TO 1 PACK/DAY CURRENTLY Alcohol intake: former Alcohol use details: QUIT 01/2023, HEAVY DRINKER FOR 30-40 YEARS 6 pack per day or a half of a 5th of liquor a day Substance use: former Other substance usage details: distant history of cocaine/marijuana use Do You Feel Safe in your Home?: Yes Lack of Transportation: No Lack of Food: Never True Current Housing: I Have Housing Concerned About Future Housing: No Difficulty Paying Gas/Electric Bills: No Difficulty Paying for Meds: No Currently Unemployed: No Education: Decline to Answer Difficulty w/ Childcare or Family Care: No Living arrangements: with family Additional living arrangements comments: Spiritual care concerns: No Meds Home Medications and Allergies Home Medications Medication Instructions Recorded Confirmed Type atorvastatin 20 mg tablet 20 mg PO DAILY 05/23/21 01/18/24 History insulin aspart (niacinamide) See Protocol subcut TID 05/23/21 01/18/24 History (U-100) 100 unit/mL subcutaneous solution (Fiasp U-100 Insulin) insulin degludec 100 unit/mL 40 unit subcut HS 05/23/21 01/18/24 History subcutaneous solution (Tresiba U-100 Insulin) pantoprazole 40 mg tablet,delayed 40 mg PO Q12H 05/23/21 01/18/24 History release pregabalin 50 mg capsule 50 mg PO Q8H 05/23/21 01/18/24 History zolpidem 10 mg tablet 10 mg PO HS 05/23/21 01/18/24 History amlodipine 5 mg tablet 5 mg PO QAM 02/07/23 01/18/24 History acetaminophen 500 mg capsule 500 mg PO BID PRN Pain 03/28/23 01/18/24 History albuterol sulfate 90 mcg/actuation 1 puff inhalation Q4-6H PRN 03/28/23 01/18/24 History aerosol inhaler Shortness Of Breath Or Wheezing metoclopramide HCl 10 mg tablet 10 mg PO Q6H PRN nausea and 07/24/23 01/18/24 Rx (Reglan) vomiting #14 tabs cetirizine 10 mg tablet 10 mg PO DAILY PRN allergies 01/18/24 01/18/24 History ferrous sulfate 325 mg (65 mg 325 mg PO DAILY 01/18/24 01/18/24 History iron) capsule,extended release hydroxyzine HCl 50 mg tablet 50 mg PO Q8H PRN Itching 01/18/24 01/18/24 History magnesium oxide 400 mg (241.3 mg 400 mg PO DAILY 01/18/24 01/18/24 History magnesium) tablet mecobalamin (vitamin B12) 1,000 1,000 mcg PO DAILY 01/18/24 01/18/24 History mcg chewable tablet (B12 Active) nadolol 40 mg tablet 40 mg PO DAILY 01/18/24 01/18/24 History rivaroxaban 20 mg tablet (Xarelto) 20 mg PO DAILY 01/18/24 01/18/24 History Allergies Allergy/AdvReac Type Severity Reaction Status Date / Time Penicillins Allergy Unknown Unknown Verified 01/18/24 21:25 doxycycline Allergy Rash Verified 01/18/24 21:25 torsemide Allergy Rash Verified 01/18/24 21:25 codeine AdvReac Unknown NAUSEA Verified 01/18/24 21:25 Vital Signs Vital Signs - 24 hr 01/18/24 13:56 01/18/24 15:21 01/18/24 15:23 Temperature 36.3 C L Pulse Rate 118 H 114 H Respiratory Rate 20 Blood Pressure 100/59 L Pulse Oximetry 100 100 Oxygen Delivery Room Air Room Air Oxygen Flow Rate Fraction of Inspired Oxygen 01/18/24 15:24 01/18/24 14:36 01/18/24 14:46 Temperature Pulse Rate 115 H Respiratory Rate 20 Blood Pressure 140/65 136/70 130/66 Pulse Oximetry 100 100 99 Oxygen Delivery Oxygen Flow Rate Fraction of Inspired Oxygen 01/18/24 15:01 01/18/24 15:16 01/18/24 15:46 Temperature Pulse Rate 116 H Respiratory Rate 19 Blood Pressure 139/72 140/65 144/69 H Pulse Oximetry 100 98 97 Oxygen Delivery Oxygen Flow Rate Fraction of Inspired Oxygen 01/18/24 16:16 01/18/24 16:31 01/18/24 17:13 Temperature Pulse Rate 121 H 134 H Respiratory Rate 18 21 H Blood Pressure 137/70 133/107 H Pulse Oximetry 98 90 Oxygen Delivery Non-Rebreather Mask Oxygen Flow Rate 15 Fraction of Inspired Oxygen 01/18/24 17:16 01/18/24 16:59 01/18/24 17:16 Temperature Pulse Rate 138 H 136 H Respiratory Rate 19 27 H Blood Pressure 208/128 H 141/65 H Pulse Oximetry 95 94 Oxygen Delivery Non-Rebreather Mask Oxygen Flow Rate 15 Fraction of Inspired Oxygen 01/18/24 17:22 01/18/24 17:26 01/18/24 17:29 Temperature Pulse Rate 129 H 122 H Respiratory Rate Blood Pressure 141/65 H 96/51 L Pulse Oximetry 100 Oxygen Delivery BiPAP Oxygen Flow Rate Fraction of Inspired Oxygen 01/18/24 17:35 01/18/24 17:28 01/18/24 17:30 Temperature Pulse Rate 121 H 126 H 124 H Respiratory Rate 26 H 24 H 26 H Blood Pressure 102/53 L 99/46 L 98/51 L Pulse Oximetry 97 97 97 Oxygen Delivery Oxygen Flow Rate Fraction of Inspired Oxygen 01/18/24 17:31 01/18/24 17:51 01/18/24 17:35 Temperature Pulse Rate 123 H 114 H 120 H Respiratory Rate 26 H 20 26 H Blood Pressure 96/51 L 111/56 L 102/53 L Pulse Oximetry 97 99 96 Oxygen Delivery Oxygen Flow Rate Fraction of Inspired Oxygen 01/18/24 17:41 01/18/24 17:46 01/18/24 17:55 Temperature Pulse Rate 118 H 117 H 113 H Respiratory Rate 25 H 24 H 22 H Blood Pressure 101/56 L 106/60 108/53 L Pulse Oximetry 97 98 99 Oxygen Delivery Oxygen Flow Rate Fraction of Inspired Oxygen 01/18/24 17:25 01/18/24 17:51 01/18/24 17:57 Temperature Pulse Rate 124 H 112 H 111 H Respiratory Rate 26 H 22 H 23 H Blood Pressure 111/56 L 108/53 L Pulse Oximetry 97 99 99 Oxygen Delivery BiPAP Oxygen Flow Rate Fraction of Inspired Oxygen 01/18/24 18:06 01/18/24 18:11 01/18/24 18:17 Temperature Pulse Rate 105 H 105 H 108 H Respiratory Rate 22 H 20 Blood Pressure 106/60 101/56 L 105/64 Pulse Oximetry 100 100 Oxygen Delivery Oxygen Flow Rate Fraction of Inspired Oxygen 01/18/24 18:21 01/18/24 18:26 01/18/24 18:31 Temperature Pulse Rate 106 H 104 H 109 H Respiratory Rate 23 H 23 H 21 H Blood Pressure 112/56 L 113/57 L 108/61 Pulse Oximetry 100 100 100 Oxygen Delivery Oxygen Flow Rate Fraction of Inspired Oxygen 01/18/24 19:21 01/18/24 19:26 01/18/24 19:31 Temperature Pulse Rate 102 H 99 96 Respiratory Rate 18 20 21 H Blood Pressure 114/64 120/74 123/66 Pulse Oximetry 100 100 100 Oxygen Delivery Oxygen Flow Rate Fraction of Inspired Oxygen 01/18/24 19:36 01/18/24 19:41 01/18/24 19:50 Temperature Pulse Rate 92 91 96 Respiratory Rate 14 13 19 Blood Pressure 115/66 117/65 121/79 Pulse Oximetry 100 100 100 Oxygen Delivery Oxygen Flow Rate Fraction of Inspired Oxygen 01/18/24 19:56 01/18/24 20:01 01/18/24 20:06 Temperature Pulse Rate 95 92 98 Respiratory Rate 15 17 19 Blood Pressure 125/68 128/73 123/85 Pulse Oximetry 100 100 100 Oxygen Delivery Oxygen Flow Rate Fraction of Inspired Oxygen 01/18/24 20:16 01/18/24 20:21 01/18/24 20:25 Temperature Pulse Rate 100 102 H 98 Respiratory Rate 18 18 17 Blood Pressure 132/80 123/72 128/75 Pulse Oximetry 100 100 100 Oxygen Delivery Oxygen Flow Rate Fraction of Inspired Oxygen 01/18/24 20:31 01/18/24 20:46 01/18/24 21:22 Temperature Pulse Rate 95 102 H 106 H Respiratory Rate 14 20 16 Blood Pressure 125/69 113/90 Pulse Oximetry 100 100 97 Oxygen Delivery BiPAP Oxygen Flow Rate Fraction of Inspired Oxygen 01/18/24 21:23 01/18/24 22:00 01/18/24 22:35 Temperature 36.3 C L Pulse Rate 105 H 94 Respiratory Rate 24 H 21 H Blood Pressure 134/68 Pulse Oximetry 100 100 100 Oxygen Delivery BiPAP BiPAP Oxygen Flow Rate Fraction of Inspired Oxygen 50 01/18/24 22:00 01/18/24 21:20 01/18/24 23:40 Temperature 36.3 C L Pulse Rate 100 105 H 91 Respiratory Rate 24 H Blood Pressure 128/72 Pulse Oximetry 100 Oxygen Delivery Oxygen Flow Rate Fraction of Inspired Oxygen 01/19/24 00:00 01/19/24 00:00 01/19/24 01:47 Temperature Pulse Rate 90 91 Respiratory Rate Blood Pressure Pulse Oximetry 100 Oxygen Delivery BiPAP Oxygen Flow Rate Fraction of Inspired Oxygen 40 01/19/24 02:37 01/19/24 04:33 01/19/24 04:15 Temperature 36.3 C L Pulse Rate 99 91 Respiratory Rate 25 H 22 H Blood Pressure 117/59 L Pulse Oximetry 100 97 96 Oxygen Delivery BiPAP Room Air Oxygen Flow Rate Fraction of Inspired Oxygen 01/19/24 04:00 01/19/24 06:00 01/19/24 08:00 Temperature 36.2 C L Pulse Rate 84 96 105 H Respiratory Rate 20 Blood Pressure 107/55 L Pulse Oximetry 96 Oxygen Delivery Oxygen Flow Rate Fraction of Inspired Oxygen 01/19/24 09:39 01/19/24 08:00 01/19/24 11:38 Temperature 37.1 C Pulse Rate 97 Respiratory Rate 20 Blood Pressure 102/51 L Pulse Oximetry 97 99 Oxygen Delivery Room Air Room Air Oxygen Flow Rate Fraction of Inspired Oxygen 21 01/18/24 21:25 Temperature Pulse Rate 105 H Respiratory Rate 24 H Blood Pressure 134/68 Pulse Oximetry Oxygen Delivery Oxygen Flow Rate Fraction of Inspired Oxygen Exam Narrative: sitting in bed Const: General: comfortable, no acute distress ( on BiPAP), well developed, alert, awake, ill appearing chronically and average body habitus Nutritional Appearance: average body habitus Orientation/consciousness: patient oriented x3 Other: on BiPAP HENMT: Head: normal to inspection, normocephalic and atraumatic Ears: hearing grossly normal bilaterally Face/Nose/Sinus: normal facial exam Face and sinus: normal facial exam Eyes: General: appearance normal, both eyes and all related structures Pupils: Equal, round and reactive pupils present EOM: EOMs intact bilaterally Neck: Neck: full ROM, no lymphadenopathy and no JVD Thyroid: thyroid normal Lymphatic: no lymphadenopathy noted Resp: Effort & Inspection: normal respiratory effort, able to speak in complete sentences, not labored, not tachypneic, no tripod positioning, no use of accessory muscles, symmetric chest movement and other ( on BiPAP) Auscultation: crackles and diminished lung sounds Cardio: Jugular venous distension: no JVD Rate: regular rate Rhythm: regular rhythm Heart sounds: S1 normal heart sound present and S2 normal heart sound present : General: Yes deferred Skin: Rashes: no rashes Wounds: no wounds Neuro: General: patient oriented x3 and CN's II-XI intact bilaterally Cranial nerves: Yes CN's II-XII intact bilaterally and Yes Equal, round and reactive pupils present Cognition (Neuro): normal cognition Speech: normal speech Gait exam (Neuro): Normal gait present Motor exam (neuro): 5/5 motor strength present throughout Extrem: General: normal to inspection, full ROM, no joint enlargement and no pedal edema Results Labs and Meds 01/19/24 07:49 01/18/24 14:11 Lab results: Cardiac Enzymes 01/18/24 01/18/24 01/18/24 Range/Units 14:11 17:03 20:41 AST 26 (17-59) U/L Troponin I 0.013 0.070 H* D 0.265 H* D (0.000-0.034) ng/mL Coagulation 01/18/24 01/18/24 01/19/24 Range/Units 14:11 20:42 01:07 PT 18.1 H 18.0 H (11.1-14.7) Seconds APTT 32.3 36.1 42.4 H (22.3-36.8) Seconds 01/19/24 Range/Units 07:49 PT (11.1-14.7) Seconds APTT 77.8 H (22.3-36.8) Seconds CBC 01/18/24 01/18/24 01/19/24 Range/Units 14:11 20:41 07:49 WBC 8.7 11.1 H 6.5 (4.5-10.0) K/mm3 RBC 3.42 L 3.38 L 3.12 L (4.6-6.20) M/mm3 Hgb 11.0 L 10.8 L 10.0 L (14.0-18.0) g/dL Hct 32.0 L 31.7 L 28.8 L (42.0-52.0) % Plt Count 126 L 143 L 115 L (150-375) k/mm3 Lymph # (Auto) 0.26 L 0.33 L 0.40 L (0.9-3.2) K/mm3 [place] # (Auto) 0.5 0.7 H 0.4 (0.1-0.6) K/mm3 Eos # (Auto) 0.0 0.0 0.0 (0-0.3) K/mm3 Baso # (Auto) 0.0 0.0 0.0 (0.0-0.1) K/mm3 Comprehensive Metabolic Panel 01/18/24 Range/Units 14:11 Sodium 135 L (137-145) mmol/L Potassium 4.4 (3.4-5.0) mmol/L Chloride 105 (98-107) mmol/L Carbon Dioxide 19 L (22-30) mmol/L BUN 24 H (9-20) mg/dL Creatinine 1.70 H (0.7-1.3) mg/dL Glucose 306 H (65-110) mg/dL Calcium 9.5 (8.4-10.2) mg/dL AST 26 (17-59) U/L ALT 16 (6-50) U/L Alkaline Phosphatase 64 (38-126) U/L Total Protein 8.0 (6.3-8.2) g/dL Albumin 4.4 (3.5-5.1) g/dL Intake and Output 01/18/24 01/19/24 01/19/24 23:59 07:59 15:59 Intake Total 3.0 666.5 347.3 Output Total 1000 Balance 3.0 -333.5 347.3 Intake: IV 3.0 66.5 107.3 Heparin Sod/D5w 100 Units/ml 25 66.5 107.3 ,000 units In 250 ml @ 1,300 UNITS/HR 13 mls/hr IV CONT . [id number] Rx#:[id number] Nitroglycerin/D5w 200 Mcg/ml 50 3.0 mg In 250 ml @ 50 MCG/MIN 15 mls/hr IV CONT .[id number] STA Rx# :[id number] Oral 600 240 Output: Catheter Urine 1000 External/Condom 1000 Other: # Unmeasured Voids 1 Patient Weight 01/19/24 23:59 Weight 83.4 kg
[2024-01-19 12:14] LABS: Glucose Point of Care 241 mg/dl (65-105)
[2024-01-19] MEDS: ASPIRIN 81 MG ENTERIC TABLET PO (12:51)
[2024-01-19] MEDS: levoFLOXacin 750 MG/D5W 150 ML 750 MG/150 ML BAG 100 MG IVPB (12:51)
[2024-01-19] MEDS: nadoloL 20 MG TABLET 40 MG PO (12:54)
[2024-01-19] MEDS: predniSONE 20 MG TABLET 40 MG PO (12:54)
[2024-01-19 14:59] LABS: Partial Thromboplastin Time 54.8 Seconds (22.3-36.8)
[2024-01-19] MEDS: HEPARIN SOD/D5W 100 UNITS/ML 25,000 UNITS/250 ML BAG 16 UNITS IV CONT (16:14)
[2024-01-19] MEDS: HEPARIN SODIUM 5,000 UNITS/ML VIAL 3500 UNITS IV PUSH (16:17)
[2024-01-19 16:37] LABS: Glucose Point of Care 263 mg/dl (65-105)
[2024-01-19 21:01] LABS: Glucose Point of Care 334 mg/dl (65-105)
[2024-01-19] MEDS: INSULIN GLARGINE (*BKC) 100 UNITS/ML 40 UNITS SUB-Q (21:54)
[2024-01-19] MEDS: ZOLPIDEM TARTRATE (*CRX) 5 MG TABLET 10 MG PO (21:55)
[2024-01-19 22:49] LABS: Partial Thromboplastin Time 108.7 Seconds (22.3-36.8)
[2024-01-20] VITALS (33 sets, daily range): BP systolic 107–128; BP diastolic 48–93; PULSE 67–84; RESP 15–20; TEMP 36.4–37.2; O2SAT 94–100
[2024-01-20 05:08] LABS: Hematocrit 25.6 % (42.0-52.0); Hemoglobin 8.7 g/dL (14.0-18.0); Mean Corpuscular Hemoglobin 31.5 pg (26-34); Mean Corpuscular Volume 92.8 fl (80-100); Mean Platelet Volume 9.5 fl (7.4-10.4); Platelet Count Result 106 k/mm3 (150-375); Red Blood Count 2.76 M/mm3 (4.6-6.20); Red Cell Distribution Width 12.8 % (11.5-14.5); White Blood Count 4.6 K/mm3 (4.5-10.0)
[2024-01-20 05:31] LABS: Alanine Aminotransferase 11 U/L (6-50); Albumin Level 3.5 g/dL (3.5-5.1); Alkaline Phosphatase 53 U/L (38-126); Anion Gap 6 mmol/L (4-12); Aspartate Amino Transferase 18 U/L (17-59); Bilirubin,Total 0.8 mg/dL (0.2-1.3); Blood Urea Nitrogen 26 mg/dL (9-20); Calcium 8.3 mg/dL (8.4-10.2); Carbon Dioxide 24 mmol/L (22-30); Chloride 106 mmol/L (98-107); Estimated CRCL calculation 48 ml/min; Estimated Glomerular Filt Rate 50; Glucose 229 mg/dL (65-110); Potassium 4.1 mmol/L (3.4-5.0); Sodium 136 mmol/L (137-145)
[2024-01-20] MEDS: PREGABALIN (*CRX) 50 MG CAPSULE PO ×3 (06:25→20:46)
[2024-01-20 07:48] LABS: Glucose Point of Care 226 mg/dl (65-105)
--- NOTE | 2024-01-20 08:46 | P.SEDATION_ITS ---
Moderate Sedation Note-Pt Data Patient Data Diagnosis: NSTEMI Present Complaint: nstemi Procedure to be performed/Plan: 1. LEFT HEART CATHETERIZATION 2. CORONARY ANGIOGRAPHY Allergies Allergy/AdvReac Type Severity Reaction Status Date / Time Penicillins Allergy Unknown Unknown Verified 01/18/24 21:25 doxycycline Allergy Rash Verified 01/18/24 21:25 torsemide Allergy Rash Verified 01/18/24 21:25 codeine AdvReac Unknown NAUSEA Verified 01/18/24 21:25 Home Medications Medication Instructions Recorded Confirmed Type atorvastatin 20 mg tablet 20 mg PO DAILY 05/23/21 01/18/24 History insulin aspart (niacinamide) See Protocol subcut TID 05/23/21 01/18/24 History (U-100) 100 unit/mL subcutaneous solution (Fiasp U-100 Insulin) insulin degludec 100 unit/mL 40 unit subcut HS 05/23/21 01/18/24 History subcutaneous solution (Tresiba U-100 Insulin) pantoprazole 40 mg tablet,delayed 40 mg PO Q12H 05/23/21 01/18/24 History release pregabalin 50 mg capsule 50 mg PO Q8H 05/23/21 01/18/24 History zolpidem 10 mg tablet 10 mg PO HS 05/23/21 01/18/24 History amlodipine 5 mg tablet 5 mg PO QAM 02/07/23 01/18/24 History acetaminophen 500 mg capsule 500 mg PO BID PRN Pain 03/28/23 01/18/24 History albuterol sulfate 90 mcg/actuation 1 puff inhalation Q4-6H PRN 03/28/23 01/18/24 History aerosol inhaler Shortness Of Breath Or Wheezing metoclopramide HCl 10 mg tablet 10 mg PO Q6H PRN nausea and 07/24/23 01/18/24 Rx (Reglan) vomiting #14 tabs cetirizine 10 mg tablet 10 mg PO DAILY PRN allergies 01/18/24 01/18/24 History ferrous sulfate 325 mg (65 mg 325 mg PO DAILY 01/18/24 01/18/24 History iron) capsule,extended release hydroxyzine HCl 50 mg tablet 50 mg PO Q8H PRN Itching 01/18/24 01/18/24 History magnesium oxide 400 mg (241.3 mg 400 mg PO DAILY 01/18/24 01/18/24 History magnesium) tablet mecobalamin (vitamin B12) 1,000 1,000 mcg PO DAILY 01/18/24 01/18/24 History mcg chewable tablet (B12 Active) nadolol 40 mg tablet 40 mg PO DAILY 01/18/24 01/18/24 History rivaroxaban 20 mg tablet (Xarelto) 20 mg PO DAILY 01/18/24 01/18/24 History Current Medications: Active Medications Acetaminophen (Acetaminophen 500 Mg Tablet) 500 mg PO BID PRN PRN Reason: Pain 1-3 Amlodipine Besylate (Amlodipine Besylate 5 Mg Tablet) 5 mg PO QAM [facility] Last Admin: 01/19/24 08:48 Dose: 5 mg Aspirin (Aspirin 81 Mg Enteric Tablet) [facility] [place] Last Admin: 01/19/24 12:51 Dose: 81 mg Atorvastatin Calcium (Atorvastatin 40 Mg Tablet) 40 mg PO DAILY [facility] Dextrose (Dextrose 50% 25 Gm/50 Ml Syringe) 12.5 gm IV PUSH PRN PRN; Protocol PRN Reason: Hypoglycemia Ferrous Sulfate (Ferrous Sulfate [address]) 325 mg PO DAILY [facility] Last Admin: 01/19/24 08:47 Dose: 325 mg Glucagon (Glucagon For Inj 1 Mg Vial) 1 mg IM PRN PRN; Protocol PRN Reason: Hypoglycemia Glucose (Glucose Oral Gel 15 Gm Of Glucse In 37.5 Gm Tube) 15 gm PO PRN PRN; Protocol PRN Reason: Hypoglycemia Heparin Sodium (Porcine) (Heparin Sodium 5,000 Units/Ml Vial) 4,000 units IV PUSH PRN PRN PRN Reason: aPTT less than 55 seconds Last Admin: 01/19/24 01:36 Dose: 4,000 units Heparin Sodium (Porcine) (Heparin Sodium 5,000 Units/Ml Vial) 3,500 units IV PUSH PRN PRN PRN Reason: aPTT 55 - 70 seconds Last Admin: 01/19/24 16:17 Dose: 3,500 units Hydroxyzine HCl (Hydroxyzine Hcl 25 Mg Tablet) 50 mg PO Q8H PRN PRN Reason: Itching Heparin Sodium/Dextrose (Heparin Sodium/D5w 100 Units/Ml) 25,000 units in 250 mls @ 14 mls/hr IV CONT .[id number] [facility]; Protocol Last Titration: 01/20/24 05:31 Dose: 1,400 units/hr, 14 mls/hr Dextrose (Dextrose 5% 1,000 Ml) 1,000 mls @ 100 mls/hr IVPB PRN PRN; Protocol PRN Reason: Hypoglycemia Levofloxacin/Dextrose (Levaquin 750 Mg/D5w 150 Ml) 750 mg in 150 mls @ 100 mls/hr IVPB Q48H [facility] Last Admin: 01/19/24 12:51 Dose: 100 mls/hr Insulin Aspart (Insulin Aspart (*Bkc) 100 Units/Ml) 3 - 6 units SUB-Q TIDWM DAVIDA; Protocol Last Admin: 01/19/24 17:23 Dose: 4 units Insulin Aspart (Insulin Aspart (*Bkc) 100 Units/Ml) 1 - 3 units SUB-Q HS DAVIDA; Protocol Last Admin: 01/19/24 21:56 Dose: 2 units Insulin Glargine (Insulin Glargine (*Bkc) 100 Units/Ml) 40 units SUB-Q HS [facility] Last Admin: 01/19/24 21:54 Dose: 40 units Loratadine (Loratadine 10 Mg Tablet) 10 mg PO QAM PRN PRN Reason: allergies Magnesium Oxide (Magnesium Oxide 400 Mg Tablet) 400 mg PO DAILY [facility] Last Admin: 01/19/24 08:47 Dose: 400 mg Nadolol (Nadolol 20 Mg Tablet) 40 mg PO DAILY [facility] Last Admin: 01/19/24 12:54 Dose: 40 mg Pantoprazole Sodium (Pantoprazole 40 Mg Tablet) 40 mg PO Q12HR [facility] Last Admin: 01/19/24 21:55 Dose: 40 mg Perflutren Lipid Microsphere (Perflutren Lipid Microspheres 1.5 Ml Vial Diluted To 10 Ml Total Volume) 0 ml IV PUSH ONCE PRN; Protocol PRN Reason: adequate visualization Stop: 01/21/24 18:41 Prednisone (Prednisone 20 Mg Tablet) 40 mg PO DAILY@0800 [facility] Last Admin: 01/19/24 12:54 Dose: 40 mg Pregabalin (Pregabalin (*Crx) 50 Mg Capsule) 50 mg PO Q8HR [facility] Last Admin: 01/20/24 06:25 Dose: 50 mg Zolpidem Tartrate (Zolpidem Tartrate (*Crx) 5 Mg Tablet) 10 mg PO HS PRN PRN Reason: Insomnia Last Admin: 01/19/24 21:55 Dose: 10 mg Sedation/Anesthesia: No previous sedation/anesthesia problems (including family history). 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 Aguilar Status post cataract extraction of both eyes with insertion of intraocular lens Family History Family History (Updated 01/18/24 @ 21:54 by Marisel Anaya RN) Mother Family history of respiratory disorder Pneumonia cause of Alcohol abuse Father Cerebrovascular accident Sibling Drug overdose at age 39 Sibling at age 43 from health issues related to [place] Social History Social History Social History: He lives with his of 32 years. He has 2 grown daughters. 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 He used to smoke 2 packs of cigarettes per day but has cut down to 1 pack of cigarettes per day for the last year so. He is recovering alcoholic he used to drink at least a 6 pack of beer a day or 1/2 of a 5th of liquor a day but he stopped when he was diagnosed with hepatocellular carcinoma December 2022. Code status: DNR/DNI per patient request but patient does not actually have advanced directives in writing. Surrogate decision maker: Smoking packs per day: 1 Smoking cigarettes per day: 20.0 Years smoked: 55 Smoking pack-years: 55.00 Smoking status: Current every day smoker Tobacco type: cigarettes Additional smoking assessment comments: TAPERING DOWN TO 1 PACK/DAY CURRENTLY Alcohol intake: former Alcohol use details: QUIT 01/2023, HEAVY DRINKER FOR 30-40 YEARS 6 pack per day or a half of a 5th of liquor a day Substance use: former Other substance usage details: distant history of cocaine/marijuana use Do You Feel Safe in your Home?: Yes Lack of Transportation: No Lack of Food: Never True Current Housing: I Have Housing Concerned About Future Housing: No Difficulty Paying Gas/Electric Bills: No Difficulty Paying for Meds: No Currently Unemployed: No Education: Decline to Answer Difficulty w/ Childcare or Family Care: No Living arrangements: with family Additional living arrangements comments: Spiritual care concerns: No Mod Sed Physical Exam Physical Exam Pre Procedural Exam: Normal: Appearance, Eyes, Ears, Nose, Neck, Throat, Airway, Lungs, Heart Size, Heart Rate, Heart Rhythm, Neuro Exam, Abdomen, Liver, Kidneys, Spleen, Breasts, Genitalia, Extremities and Skin Hours since solid foods: 10 Hours since liquid intake: 10 Mallampati Classification: class II Internal Medicine - PN: Obj Da Vital Signs Vital Signs: Vital Signs - 24 hr 01/19/24 09:39 01/19/24 10:00 01/19/24 11:38 Temperature 37.1 C Pulse Rate 106 H 97 Respiratory Rate 20 Blood Pressure 102/51 L Pulse Oximetry 97 99 Oxygen Delivery Room Air Fraction of Inspired Oxygen 21 01/19/24 12:00 01/19/24 15:21 01/19/24 14:00 Temperature 36.7 C Pulse Rate 89 89 Respiratory Rate 20 Blood Pressure 125/59 L Pulse Oximetry 98 Oxygen Delivery Room Air Fraction of Inspired Oxygen 01/19/24 16:00 01/19/24 16:00 01/19/24 17:51 Temperature Pulse Rate 89 89 Respiratory Rate Blood Pressure Pulse Oximetry Oxygen Delivery Room Air Fraction of Inspired Oxygen 01/19/24 20:00 01/19/24 20:00 01/19/24 23:00 Temperature 36.7 C Pulse Rate 80 Respiratory Rate 19 Blood Pressure 121/58 L Pulse Oximetry 99 Oxygen Delivery Room Air Room Air Fraction of Inspired Oxygen 01/20/24 00:00 01/20/24 04:00 01/20/24 04:00 Temperature 36.7 C 36.6 C Pulse Rate 82 77 Respiratory Rate 18 18 Blood Pressure 110/53 L 125/49 L Pulse Oximetry 100 100 Oxygen Delivery Room Air Fraction of Inspired Oxygen 01/19/24 20:00 01/19/24 22:00 01/20/24 00:00 Temperature Pulse Rate 89 86 84 Respiratory Rate Blood Pressure Pulse Oximetry Oxygen Delivery Fraction of Inspired Oxygen 01/20/24 02:00 01/20/24 04:00 01/20/24 06:00 Temperature Pulse Rate 83 72 71 Respiratory Rate Blood Pressure Pulse Oximetry Oxygen Delivery Fraction of Inspired Oxygen 01/20/24 07:55 01/20/24 08:00 01/20/24 08:00 Temperature 37.2 C Pulse Rate 72 73 Respiratory Rate 20 Blood Pressure 128/53 L Pulse Oximetry 98 Oxygen Delivery Room Air Fraction of Inspired Oxygen Intake/Output Intake/Output: Intake & Output 01/17/24 01/18/24 01/19/24 01/20/24 23:59 23:59 23:59 23:59 Intake Total 3.0 1676.1 543.1 Output Total 1800 900 Balance 3.0 -123.9 -356.9 Meds/Results Medications: Active Medications Generic Name Dose Route Start Last Admin Trade Name Freq PRN Reason Stop Dose Admin Acetaminophen 500 mg 01/19/24 02:23 Acetaminophen 500 Mg Tablet PO BID PRN Pain 1-3 Amlodipine Besylate 5 mg 01/19/24 09:00 01/19/24 08:48 Amlodipine Besylate 5 Mg Tablet PO 5 mg QAM DAVIDA Administration Aspirin 81 mg 01/19/24 09:00 01/19/24 12:51 Aspirin 81 Mg Enteric Tablet PO 81 mg QAM DAVIDA Administration Atorvastatin Calcium 40 mg 01/20/24 09:00 Atorvastatin 40 Mg Tablet PO DAILY DAVIDA Dextrose 12.5 gm 01/19/24 05:25 Dextrose 50% 25 Gm/50 Ml Syringe IV PUSH PRN PRN Hypoglycemia Protocol Ferrous Sulfate 325 mg 01/19/24 09:00 01/19/24 08:47 Ferrous Sulfate [address] PO 325 mg DAILY DAVIDA Administration Glucagon 1 mg 01/19/24 05:25 Glucagon For Inj 1 Mg Vial IM PRN PRN Hypoglycemia Protocol Glucose 15 gm 01/19/24 05:25 Glucose Oral Gel 15 Gm Of Glucse In 37.5 Gm Tube PO PRN PRN Hypoglycemia Protocol Heparin Sodium (Porcine) 4,000 units 01/18/24 18:28 01/19/24 01:36 Heparin Sodium 5,000 Units/Ml Vial IV PUSH 4,000 units PRN PRN Administration aPTT less than 55 seconds Heparin Sodium (Porcine) 3,500 units 01/18/24 18:28 01/19/24 16:17 Heparin Sodium 5,000 Units/Ml Vial IV PUSH 3,500 units PRN PRN Administration aPTT 55 - 70 seconds Hydroxyzine HCl 50 mg 01/19/24 02:23 Hydroxyzine Hcl 25 Mg Tablet PO Q8H PRN Itching Heparin Sodium/Dextrose 25,000 units in 250 mls @ 14 mls/hr 01/18/24 18:30 01/20/24 05:31 Heparin Sodium/D5w 100 Units/Ml IV CONT 1,400 units/hr .[id number] DAVIDA 14 mls/hr Titration Protocol 1,400 UNITS/HR Dextrose 1,000 mls @ 100 mls/hr 01/19/24 05:25 Dextrose 5% 1,000 Ml IVPB PRN PRN Hypoglycemia Protocol Levofloxacin/Dextrose 750 mg in 150 mls @ 100 mls/hr 01/19/24 09:00 01/19/24 12:51 Levaquin 750 Mg/D5w 150 Ml IVPB 100 mls/hr Q48H DAVIDA Administration Insulin Aspart 3 - 6 units 01/19/24 08:00 01/19/24 17:23 Insulin Aspart (*Bkc) 100 Units/Ml SUB-Q 4 units TIDWM DAVIDA Administration Protocol Insulin Aspart 1 - 3 units 01/19/24 21:00 01/19/24 21:56 Insulin Aspart (*Bkc) 100 Units/Ml SUB-Q 2 units HS DAVIDA Administration Protocol Insulin Glargine 40 units 01/19/24 21:00 01/19/24 21:54 Insulin Glargine (*Bkc) 100 Units/Ml SUB-Q 40 units HS DAVIDA Administration Loratadine 10 mg 01/19/24 02:28 Loratadine 10 Mg Tablet PO QAM PRN allergies Magnesium Oxide 400 mg 01/19/24 09:00 01/19/24 08:47 Magnesium Oxide 400 Mg Tablet PO 400 mg DAILY DAVIDA Administration Nadolol 40 mg 01/19/24 09:00 01/19/24 12:54 Nadolol 20 Mg Tablet PO 40 mg DAILY DAVIDA Administration Pantoprazole Sodium 40 mg 01/19/24 09:00 01/19/24 21:55 Pantoprazole 40 Mg Tablet PO 40 mg Q12HR DAVIDA Administration Perflutren Lipid Microsphere 0 ml 01/18/24 18:37 Perflutren Lipid Microspheres 1.5 Ml Vial Diluted To 10 Ml Total Volume IV PUSH 01/21/24 18:41 ONCE PRN adequate visualization Protocol Prednisone 40 mg 01/19/24 09:40 01/19/24 12:54 Prednisone 20 Mg Tablet PO 40 mg DAILY@0800 DAVIDA Administration Pregabalin 50 mg 01/19/24 06:00 01/20/24 06:25 Pregabalin (*Crx) 50 Mg Capsule PO 50 mg Q8HR DAVIDA Administration Zolpidem Tartrate 10 mg 01/19/24 18:10 01/19/24 21:55 Zolpidem Tartrate (*Crx) 5 Mg Tablet PO 10 mg HS PRN Administration Insomnia Radiology Results: ITS Impressions Chest X-Ray 01/18/24 14:57 IMPRESSION: 1. Airspace opacities in left lower lung zone, consistent with atelectasis versus pneumonia. 2. Compression of the port catheter between the clavicle and first rib. Chest/Abdomen/Pelvis CTA 01/18/24 17:05 IMPRESSION: 1. Mild pulmonary edema. 2. Severe stenosis of proximal left common carotid artery. 3. Cirrhosis of the liver with portal venous hypertension. 4. Worsened distribution of low attenuation involving segments 4A and 4B of the liver with thrombus in the associated portal vein, consistent with a combination of infarct and hepatocellular carcinoma. 5. Mild periportal and aortocaval lymphadenopathy, likely reactive. 6. Small volume of ascites. 7. 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 Labs 01/20/24 04:56 01/20/24 04:56 Labs: Laboratory Results - last 24 hr 01/19/24 01/19/24 01/19/24 11:41 14:43 16:25 WBC RBC Hgb Hct MCV MCH MCHC RDW Plt Count MPV APTT 54.8 H Sodium Potassium Chloride Carbon Dioxide Anion Gap BUN Creatinine Estim Creat Clear Calc Estimated GFR Glucose POC Capillary Glucose 241 H 263 H Calcium Total Bilirubin AST ALT Alkaline Phosphatase Total Protein Albumin 01/19/24 01/19/24 01/20/24 20:56 22:26 04:56 WBC 4.6 RBC 2.76 L Hgb 8.7 L Hct 25.6 L MCV 92.8 MCH 31.5 MCHC 34.0 RDW 12.8 Plt Count 106 L MPV 9.5 APTT 108.7 H 105.0 H Sodium 136 L Potassium 4.1 Chloride 106 Carbon Dioxide 24 Anion Gap 6 BUN 26 H Creatinine 1.40 H Estim Creat Clear Calc 48 Estimated GFR 50 L Glucose 229 H POC Capillary Glucose 334 H Calcium 8.3 L Total Bilirubin 0.8 AST 18 ALT 11 Alkaline Phosphatase 53 Total Protein 6.0 L Albumin 3.5 01/20/24 07:46 WBC RBC Hgb Hct MCV MCH MCHC RDW Plt Count MPV APTT Sodium Potassium Chloride Carbon Dioxide Anion Gap BUN Creatinine Estim Creat Clear Calc Estimated GFR Glucose POC Capillary Glucose 226 H Calcium Total Bilirubin AST ALT Alkaline Phosphatase Total Protein Albumin ASA Classification/Sedation ASA Classification/Sedation ASA Class: III Emergent: No Risks: Risks, benefits and alternatives explained and patient/family accepted plan for sedation. Patient re-evaluated immediately prior to sedation.
--- NOTE | 2024-01-20 09:01 | PM.IMPN ---
Progress Note: A&P Assessment and Plan (1) Chest pain: Code(s): R07.9 - Chest pain, unspecified Status: Acute (2) Cirrhosis, alcoholic: Code(s): K70.30 - Alcoholic cirrhosis of liver without ascites Status: Acute (3) CHF (congestive heart failure): Code(s): I50.9 - Heart failure, unspecified Status: Acute (4) GERD (gastroesophageal reflux disease): Code(s): K21.9 - Gastro-esophageal reflux disease without esophagitis Status: Acute (5) HCC (hepatocellular carcinoma): Onset Date: 12/2022 Code(s): C22.0 - Liver cell carcinoma Status: Acute (6) Flash pulmonary edema: Code(s): J81.0 - Acute pulmonary edema Status: Acute (7) Insulin dependent diabetes mellitus: Status: Acute (8) Alcohol abuse, in remission: Code(s): F10.11 - Alcohol abuse, in remission Status: Acute (9) Continuous tobacco abuse: Code(s): Z72.0 - Tobacco use Status: Acute Plan Non ST elevation MA -Heparin drip -underwent diagnostic catheterization -hemoglobin drop from 10-8.7 -repeat H and H shows 9.4 -ordered FOBT -will trend H&H -if necessary will consult Gastroenterology -Increase trend in Troponin : 0.013>0.070>0.265 -BNP : 8290 -ECHO pending -Atorvastatin 20 mg and aspirin 81 mg -Cardiology consulted -continue heparin drip and give sublingual nitro if needed -Echocardiogram pending -Denies any illicit drug use -Reviewed EKG and CXR PNA/Hypersensitivity Pneumonitis -Order Levo -reviewed chest x-ray - Prednisone 40 mg p.o. q.d. for 5 days -recurrent episodes after immunotherapy HCC -On immunotherapy -Follows Dr Cassidy as OP DM -hold home medication -on insulin sliding scale Subjective Date/time seen: 01/20/24 09:01 Interval history: Patient underwent diagnosis cardiac catheterization. Patient hemoglobin dropped from 10-8.7. Cardiology wanted the patient to be evaluated by Gastroenterology for possible GI bleed. Patient denies any hematochezia or melena. Patient is currently on heparin drip. Repeated H&H shows no drop. Will discuss with Cardiology team and if necessary will consult GI. Review of Systems Review of Systems: ROS unobtainable: Yes unobtainable due to medical condition ( respiratory failure on BiPAP) Exam Narrative: sitting in bed Const: General: comfortable, no acute distress ( on BiPAP), well developed, alert, awake, ill appearing chronically and average body habitus Nutritional Appearance: average body habitus Orientation/consciousness: patient oriented x3 Other: on BiPAP HENMT: Head: normal to inspection, normocephalic and atraumatic Ears: hearing grossly normal bilaterally Face/Nose/Sinus: normal facial exam Face and sinus: normal facial exam Eyes: General: appearance normal, both eyes and all related structures Pupils: Equal, round and reactive pupils present EOM: EOMs intact bilaterally Neck: Neck: full ROM, no lymphadenopathy and no JVD Thyroid: thyroid normal Lymphatic: no lymphadenopathy noted Resp: Effort & Inspection: normal respiratory effort, able to speak in complete sentences, not labored, not tachypneic, no tripod positioning, no use of accessory muscles, symmetric chest movement and other ( on BiPAP) Auscultation: crackles and diminished lung sounds Cardio: Jugular venous distension: no JVD Rate: regular rate Rhythm: regular rhythm Heart sounds: S1 normal heart sound present and S2 normal heart sound present : General: Yes deferred Skin: Rashes: no rashes Wounds: no wounds Neuro: General: patient oriented x3 and CN's II-XI intact bilaterally Cranial nerves: Yes CN's II-XII intact bilaterally and Yes Equal, round and reactive pupils present Cognition (Neuro): normal cognition Speech: normal speech Gait exam (Neuro): Normal gait present Motor exam (neuro): 5/5 motor strength present throughout Extrem: General: normal to inspection, full ROM, no joint enlargement and no pedal edema Objective Data Vital Signs Vital Signs: Vital Signs - 24 hr 01/19/24 09:39 01/19/24 10:00 01/19/24 11:38 Temperature 98.7 F Pulse Rate 106 H 97 Respiratory Rate 20 Blood Pressure 102/51 L Pulse Oximetry 97 99 Oxygen Delivery Room Air Fraction of Inspired Oxygen 21 01/19/24 12:00 01/19/24 15:21 01/19/24 14:00 Temperature 98.0 F Pulse Rate 89 89 Respiratory Rate 20 Blood Pressure 125/59 L Pulse Oximetry 98 Oxygen Delivery Room Air Fraction of Inspired Oxygen 01/19/24 16:00 01/19/24 16:00 01/19/24 17:51 Temperature Pulse Rate 89 89 Respiratory Rate Blood Pressure Pulse Oximetry Oxygen Delivery Room Air Fraction of Inspired Oxygen 01/19/24 20:00 01/19/24 20:00 01/19/24 23:00 Temperature 98.1 F Pulse Rate 80 Respiratory Rate 19 Blood Pressure 121/58 L Pulse Oximetry 99 Oxygen Delivery Room Air Room Air Fraction of Inspired Oxygen 01/20/24 00:00 01/20/24 04:00 01/20/24 04:00 Temperature 98.0 F 97.8 F Pulse Rate 82 77 Respiratory Rate 18 18 Blood Pressure 110/53 L 125/49 L Pulse Oximetry 100 100 Oxygen Delivery Room Air Fraction of Inspired Oxygen 01/19/24 20:00 01/19/24 22:00 01/20/24 00:00 Temperature Pulse Rate 89 86 84 Respiratory Rate Blood Pressure Pulse Oximetry Oxygen Delivery Fraction of Inspired Oxygen 01/20/24 02:00 01/20/24 04:00 01/20/24 06:00 Temperature Pulse Rate 83 72 71 Respiratory Rate Blood Pressure Pulse Oximetry Oxygen Delivery Fraction of Inspired Oxygen 01/20/24 07:55 01/20/24 08:00 01/20/24 08:00 Temperature 98.9 F Pulse Rate 72 73 Respiratory Rate 20 Blood Pressure 128/53 L Pulse Oximetry 98 Oxygen Delivery Room Air Fraction of Inspired Oxygen Intake/Output Intake/Output: Intake & Output 01/17/24 01/18/24 01/19/24 01/20/24 23:59 23:59 23:59 23:59 Intake Total 3.0 1676.1 543.1 Output Total 1800 900 Balance 3.0 -123.9 -356.9 Meds/Results Medications: Active Medications Generic Name Dose Route Start Last Admin Trade Name Freq PRN Reason Stop Dose Admin Acetaminophen 500 mg 01/19/24 02:23 Acetaminophen 500 Mg Tablet PO BID PRN Pain 1-3 Amlodipine Besylate 5 mg 01/19/24 09:00 01/19/24 08:48 Amlodipine Besylate 5 Mg Tablet PO 5 mg QAM DAVIDA Administration Aspirin 81 mg 01/19/24 09:00 01/19/24 12:51 Aspirin 81 Mg Enteric Tablet PO 81 mg QAM DAVIDA Administration Atorvastatin Calcium 40 mg 01/20/24 09:00 Atorvastatin 40 Mg Tablet PO DAILY [facility] Dextrose 12.5 gm 01/19/24 05:25 Dextrose 50% 25 Gm/50 Ml Syringe IV PUSH PRN PRN Hypoglycemia Protocol Ferrous Sulfate 325 mg 01/19/24 09:00 01/19/24 08:47 Ferrous Sulfate [address] PO 325 mg DAILY DAVIDA Administration Glucagon 1 mg 01/19/24 05:25 Glucagon For Inj 1 Mg Vial IM PRN PRN Hypoglycemia Protocol Glucose 15 gm 01/19/24 05:25 Glucose Oral Gel 15 Gm Of Glucse In 37.5 Gm Tube PO PRN PRN Hypoglycemia Protocol Heparin Sodium (Porcine) 4,000 units 01/18/24 18:28 01/19/24 01:36 Heparin Sodium 5,000 Units/Ml Vial IV PUSH 4,000 units PRN PRN Administration aPTT less than 55 seconds Heparin Sodium (Porcine) 3,500 units 01/18/24 18:28 01/19/24 16:17 Heparin Sodium 5,000 Units/Ml Vial IV PUSH 3,500 units PRN PRN Administration aPTT 55 - 70 seconds Hydroxyzine HCl 50 mg 01/19/24 02:23 Hydroxyzine Hcl 25 Mg Tablet PO Q8H PRN Itching Heparin Sodium/Dextrose 25,000 units in 250 mls @ 14 mls/hr 01/18/24 18:30 01/20/24 05:31 Heparin Sodium/D5w 100 Units/Ml IV CONT 1,400 units/hr .[id number] DAVIDA 14 mls/hr Titration Protocol 1,400 UNITS/HR Dextrose 1,000 mls @ 100 mls/hr 01/19/24 05:25 Dextrose 5% 1,000 Ml IVPB PRN PRN Hypoglycemia Protocol Levofloxacin/Dextrose 750 mg in 150 mls @ 100 mls/hr 01/19/24 09:00 01/19/24 12:51 Levaquin 750 Mg/D5w 150 Ml IVPB 100 mls/hr Q48H DAVIDA Administration Insulin Aspart 3 - 6 units 01/19/24 08:00 01/19/24 17:23 Insulin Aspart (*Bkc) 100 Units/Ml SUB-Q 4 units TIDWM [facility] Administration Protocol Insulin Aspart 1 - 3 units 01/19/24 21:00 01/19/24 21:56 Insulin Aspart (*Bkc) 100 Units/Ml SUB-Q 2 units HS [facility] Administration Protocol Insulin Glargine 40 units 01/19/24 21:00 01/19/24 21:54 Insulin Glargine (*Bkc) 100 Units/Ml SUB-Q 40 units HS DAVIDA Administration Loratadine 10 mg 01/19/24 02:28 Loratadine 10 Mg Tablet PO QAM PRN allergies Magnesium Oxide 400 mg 01/19/24 09:00 01/19/24 08:47 Magnesium Oxide 400 Mg Tablet PO 400 mg DAILY DAVIDA Administration Nadolol 40 mg 01/19/24 09:00 01/19/24 12:54 Nadolol 20 Mg Tablet PO 40 mg DAILY DAVIDA Administration Pantoprazole Sodium 40 mg 01/19/24 09:00 01/19/24 21:55 Pantoprazole 40 Mg Tablet PO 40 mg Q12HR DAVIDA Administration Perflutren Lipid Microsphere 0 ml 01/18/24 18:37 Perflutren Lipid Microspheres 1.5 Ml Vial Diluted To 10 Ml Total Volume IV PUSH 01/21/24 18:41 ONCE PRN adequate visualization Protocol Prednisone 40 mg 01/19/24 09:40 01/19/24 12:54 Prednisone 20 Mg Tablet PO 40 mg DAILY@0800 DAVIDA Administration Pregabalin 50 mg 01/19/24 06:00 01/20/24 06:25 Pregabalin (*Crx) 50 Mg Capsule PO 50 mg Q8HR DAVIDA Administration Zolpidem Tartrate 10 mg 01/19/24 18:10 01/19/24 21:55 Zolpidem Tartrate (*Crx) 5 Mg Tablet PO 10 mg HS PRN Administration Insomnia Radiology Results: ITS Impressions Chest X-Ray 01/18/24 14:57 IMPRESSION: 1. Airspace opacities in left lower lung zone, consistent with atelectasis versus pneumonia. 2. Compression of the port catheter between the clavicle and first rib. Chest/Abdomen/Pelvis CTA 01/18/24 17:05 IMPRESSION: 1. Mild pulmonary edema. 2. Severe stenosis of proximal left common carotid artery. 3. Cirrhosis of the liver with portal venous hypertension. 4. Worsened distribution of low attenuation involving segments 4A and 4B of the liver with thrombus in the associated portal vein, consistent with a combination of infarct and hepatocellular carcinoma. 5. Mild periportal and aortocaval lymphadenopathy, likely reactive. 6. Small volume of ascites. 7. 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 Labs Labs: Laboratory Results - last 24 hr 01/19/24 01/19/24 01/19/24 11:41 14:43 16:25 WBC RBC Hgb Hct MCV MCH MCHC RDW Plt Count MPV APTT 54.8 H Sodium Potassium Chloride Carbon Dioxide Anion Gap BUN Creatinine Estim Creat Clear Calc Estimated GFR Glucose POC Capillary Glucose 241 H 263 H Calcium Total Bilirubin AST ALT Alkaline Phosphatase Total Protein Albumin 01/19/24 01/19/24 01/20/24 20:56 22:26 04:56 WBC 4.6 RBC 2.76 L Hgb 8.7 L Hct 25.6 L MCV 92.8 MCH 31.5 MCHC 34.0 RDW 12.8 Plt Count 106 L MPV 9.5 APTT 108.7 H 105.0 H Sodium 136 L Potassium 4.1 Chloride 106 Carbon Dioxide 24 Anion Gap 6 BUN 26 H Creatinine 1.40 H Estim Creat Clear Calc 48 Estimated GFR 50 L Glucose 229 H POC Capillary Glucose 334 H Calcium 8.3 L Total Bilirubin 0.8 AST 18 ALT 11 Alkaline Phosphatase 53 Total Protein 6.0 L Albumin 3.5 01/20/24 07:46 WBC RBC Hgb Hct MCV MCH MCHC RDW Plt Count MPV APTT Sodium Potassium Chloride Carbon Dioxide Anion Gap BUN Creatinine Estim Creat Clear Calc Estimated GFR Glucose POC Capillary Glucose 226 H Calcium Total Bilirubin AST ALT Alkaline Phosphatase Total Protein Albumin Hospitalist MIPS Advance Care Plan I have confirmed that the patient's Advanced Care Plan is present, code status is documented, or surrogate decision maker is listed in patient medical record.: Yes Medication Reconciliation I have utilized all available resources to obtain, update and review the patients current medications (includes all prescriptions, OTC, herbals, cannabis, and nutritional supplements).: Yes
--- NOTE | 2024-01-20 09:14 | PC.NURSE ---
Pt taken off floor to slab grinder via bed accompanied by RNs. Labs reviewed with slab grinder nurses, including hemoglobin of 8.7 and platelets of 106.
--- NOTE | 2024-01-20 10:12 | WPDCARDPROC ---
Cardiac Cath Procedure Note Date of procedure:: 01/20/24 Performing physician:: Tonja Morton MD Indication:: NSTEMI Brief clinical history:: See H&P Procedure Procedure performed:: Coronary angiography Sedation/Medication given:: Versed 1 mg, fentanyl 25 mcg as Access site:: Her radial artery Estimated blood loss:: 2 cc Procedure note:: Right radial artery access was taking under ultrasound guidance and 6 Portuguese sheath was placed. Five Portuguese JL3 5 catheter was used to engage the left main and multiple images were taken. RCA was engaged using this 5 Portuguese JR4 catheter multiple the images were taken Findings:: Coronary angiography: Engage the left main with 5 Portuguese JL 3.5 catheter and RCA with a 5 Portuguese JR4 catheter. Codominant system with ramus 1. Left main: Large caliber intermediate length vessel was divides into LAD, ramus and circumflex branches. No angiographic evidence of atherosclerotic disease in the left main 2. Large caliber transapical vessel which gives rise to a large caliber diagonal branch which was almost to the apex and axilla is a dual LAD system. Prox to mid LAD has a long tubular. 50% stenosis was diagnosed as a large caliber vessel which has an ostial 40% stenosis followed by 80% stenosis in the proximal 3rd. 3. Ramus is a moderate to large caliber vessel which has an ostial 20% stenosis 4. Left circumflex artery: Large caliber codominant vessel which gives rise to a branching. Large caliber 1st marginal branch proximal circumflex is a 20% stenosis and AV groove. Circ has a 20% stenosis or 1 is a large caliber branching vessel with luminal irregularities 5. RCA: Large caliber vessel which gives rise to PLV and PDA branches. Mid RCA has calcified long tubular stenosis which is 70-75% of his maximal extent. PDA is a small caliber vessel with 80% stenosis in its mid-third Conclusion:: 1. Left main: 0 2. LAD: prox-mid LAD 50%, D1 75-80% 3. Ramus Ostial 20% 4. LCX: pLCX 20%, AV groove LCX 20% 5. RCA: mRCA 70-75%, calcified, PDA 80% (small caliber) Assessment and Plan Assessment and plan (1) NSTEMI (non-ST elevated myocardial infarction): Code(s): I21.4 - Non-ST elevation (NSTEMI) myocardial infarction Status: Acute Plan 1. Transfer to the floor 2. Hemostasis to be achieved with a vascular band as per protocol 3. Heparin to be restarted 2 hours after the vascular band is removed and a radial access site is stable. No heparin bolus to begin 4. GI consult for evaluation of anemia, possible EGD prior to PCI 5. Continue aspirin, beta-yany and statin
--- NOTE | 2024-01-20 10:29 | PC.NURSE ---
This patient, Daniel Treviño, was received from cardiac laborer car [facility] on 01/20/24 at 1015. Patient/family oriented to unit policies and routines. Report recieved from MARIANA Davis. TR band intact with 15 ml of air in cushion. Syringe for air removal at bedside. Will begin removing air per protocol @ 1107
[2024-01-20 11:17] LABS: Glucose Point of Care 160 mg/dl (65-105)
[2024-01-20] MEDS: predniSONE 20 MG TABLET 40 MG PO (12:18)
[2024-01-20] MEDS: ATORVASTATIN 40 MG TABLET PO (12:18)
[2024-01-20] MEDS: FERROUS SULFATE 325 MG TABLET DR PO (12:18)
[2024-01-20] MEDS: MAGNESIUM OXIDE 400 MG TABLET PO (12:18)
[2024-01-20] MEDS: amLODIPine BESYLATE 5 MG TABLET PO (12:18)
[2024-01-20] MEDS: ASPIRIN 81 MG ENTERIC TABLET PO (12:19)
[2024-01-20] MEDS: PANTOPRAZOLE 40 MG TABLET PO ×2 (12:20→20:46)
--- NOTE | 2024-01-20 12:39 | PM.PNCARD ---
Progress Note: A&P Assessment and Plan (1) NSTEMI (non-ST elevated myocardial infarction): Code(s): I21.4 - Non-ST elevation (NSTEMI) myocardial infarction Status: Acute Plan 1. NSTEMI 2. CKD 3 3. Hepatocellular cancer 4. Chronic smoker 5. Cirrhosis with portal hypertension - We took him to the electrical laboratory technician for a diagnostic only cath as his HB decreased to 8.7. The plan was to delineate his anatomy follwed by a GI evaluation prior toa PCI - LHC showed D1 80%, mRCA 70-75%, prox-mid LAD 50% - Heparin to be restarted 2 hours after the vascular band is removed and a radial access site is stable. No heparin bolus to b - GI consult - Continue aspirin 81 mg, statin - Continue beta-yany - The risk benefits and alternatives of cardiac catheterization were discussed with him. He understood the risk and wants to proceed Subjective Date/time seen: 01/20/24 12:39 Interval history: No acute event overnight No more episodes of chest pain Hb decreased to 8.7 from 12-03-10 Review of Systems Review of Systems: ROS unobtainable: Yes unobtainable due to medical condition ( respiratory failure on BiPAP) Exam Narrative: sitting in bed Const: General: comfortable, no acute distress ( on BiPAP), well developed, alert, awake, ill appearing chronically and average body habitus Nutritional Appearance: average body habitus Orientation/consciousness: patient oriented x3 Other: on BiPAP HENMT: Head: normal to inspection, normocephalic and atraumatic Ears: hearing grossly normal bilaterally Face/Nose/Sinus: normal facial exam Face and sinus: normal facial exam Eyes: General: appearance normal, both eyes and all related structures Pupils: Equal, round and reactive pupils present EOM: EOMs intact bilaterally Neck: Neck: full ROM, no lymphadenopathy and no JVD Thyroid: thyroid normal Lymphatic: no lymphadenopathy noted Resp: Effort & Inspection: normal respiratory effort, able to speak in complete sentences, not labored, not tachypneic, no tripod positioning, no use of accessory muscles, symmetric chest movement and other ( on BiPAP) Auscultation: crackles and diminished lung sounds Cardio: Jugular venous distension: no JVD Rate: regular rate Rhythm: regular rhythm Heart sounds: S1 normal heart sound present and S2 normal heart sound present : General: Yes deferred Skin: Rashes: no rashes Wounds: no wounds Neuro: General: patient oriented x3 and CN's II-XI intact bilaterally Cranial nerves: Yes CN's II-XII intact bilaterally and Yes Equal, round and reactive pupils present Cognition (Neuro): normal cognition Speech: normal speech Gait exam (Neuro): Normal gait present Motor exam (neuro): 5/5 motor strength present throughout Extrem: General: normal to inspection, full ROM, no joint enlargement and no pedal edema Objective Data Vital Signs Vital Signs: Vital Signs - 24 hr 01/19/24 15:21 01/19/24 14:00 01/19/24 16:00 Temperature 36.7 C Pulse Rate 89 89 89 Pulse Rate [Right Radial] Respiratory Rate 20 Blood Pressure 125/59 L Pulse Oximetry 98 Oxygen Delivery 01/19/24 16:00 01/19/24 17:51 01/19/24 20:00 Temperature 36.7 C Pulse Rate 89 80 Pulse Rate [Right Radial] Respiratory Rate 19 Blood Pressure 121/58 L Pulse Oximetry 99 Oxygen Delivery Room Air 01/19/24 20:00 01/19/24 23:00 01/20/24 00:00 Temperature 36.7 C Pulse Rate 82 Pulse Rate [Right Radial] Respiratory Rate 18 Blood Pressure 110/53 L Pulse Oximetry 100 Oxygen Delivery Room Air Room Air 01/20/24 04:00 01/20/24 04:00 01/19/24 20:00 Temperature 36.6 C Pulse Rate 77 89 Pulse Rate [Right Radial] Respiratory Rate 18 Blood Pressure 125/49 L Pulse Oximetry 100 Oxygen Delivery Room Air 01/19/24 22:00 01/20/24 00:00 01/20/24 02:00 Temperature Pulse Rate 86 84 83 Pulse Rate [Right Radial] Respiratory Rate Blood Pressure Pulse Oximetry Oxygen Delivery 01/20/24 04:00 01/20/24 06:00 01/20/24 07:55 Temperature 37.2 C Pulse Rate 72 71 72 Pulse Rate [Right Radial] Respiratory Rate 20 Blood Pressure 128/53 L Pulse Oximetry 98 Oxygen Delivery 01/20/24 08:00 01/20/24 08:00 01/20/24 10:34 Temperature 36.4 C L Pulse Rate 73 70 Pulse Rate [Right Radial] Respiratory Rate 19 Blood Pressure 124/53 L Pulse Oximetry 96 Oxygen Delivery Room Air 01/20/24 11:09 01/20/24 11:24 01/20/24 11:45 Temperature Pulse Rate 67 69 71 Pulse Rate [Right Radial] 68 Respiratory Rate 17 Blood Pressure 119/58 L 125/56 L 107/88 Pulse Oximetry 99 97 98 Oxygen Delivery 01/20/24 12:00 01/20/24 12:15 Temperature 36.6 C Pulse Rate 68 72 Pulse Rate [Right Radial] Respiratory Rate 16 15 Blood Pressure 123/55 L 119/93 H Pulse Oximetry 99 96 Oxygen Delivery Intake/Output Intake/Output: Intake & Output 01/17/24 01/18/24 01/19/24 01/20/24 23:59 23:59 23:59 23:59 Intake Total 3.0 1676.1 591.9 Output Total 1800 900 Balance 3.0 -123.9 -308.1 Meds/Results Medications: Active Medications Generic Name Dose Route Start Last Admin Trade Name Freq PRN Reason Stop Dose Admin Acetaminophen 500 mg 01/19/24 02:23 Acetaminophen 500 Mg Tablet PO BID PRN Pain 1-3 Amlodipine Besylate 5 mg 01/19/24 09:00 01/20/24 12:18 Amlodipine Besylate 5 Mg Tablet PO 5 mg QAM DAVIDA Administration Aspirin 81 mg 01/19/24 09:00 01/20/24 12:19 Aspirin 81 Mg Enteric Tablet PO 81 mg QAM DAVIDA Administration Atorvastatin Calcium 40 mg 01/20/24 09:00 01/20/24 12:18 Atorvastatin 40 Mg Tablet PO 40 mg DAILY DAVIDA Administration Dextrose 12.5 gm 01/19/24 05:25 Dextrose 50% 25 Gm/50 Ml Syringe IV PUSH PRN PRN Hypoglycemia Protocol Ferrous Sulfate 325 mg 01/19/24 09:00 01/20/24 12:18 Ferrous Sulfate [address] PO 325 mg DAILY DAVIDA Administration Glucagon 1 mg 01/19/24 05:25 Glucagon For Inj 1 Mg Vial IM PRN PRN Hypoglycemia Protocol Glucose 15 gm 01/19/24 05:25 Glucose Oral Gel 15 Gm Of Glucse In 37.5 Gm Tube PO PRN PRN Hypoglycemia Protocol Heparin Sodium (Porcine) 4,000 units 01/18/24 18:28 01/19/24 01:36 Heparin Sodium 5,000 Units/Ml Vial IV PUSH 4,000 units PRN PRN Administration aPTT less than 55 seconds Heparin Sodium (Porcine) 3,500 units 01/18/24 18:28 01/19/24 16:17 Heparin Sodium 5,000 Units/Ml Vial IV PUSH 3,500 units PRN PRN Administration aPTT 55 - 70 seconds Hydroxyzine HCl 50 mg 01/19/24 02:23 Hydroxyzine Hcl 25 Mg Tablet PO Q8H PRN Itching Heparin Sodium/Dextrose 25,000 units in 250 mls @ 0 mls/hr 01/18/24 18:30 01/20/24 09:00 Heparin Sodium/D5w 100 Units/Ml IV CONT 0 units/hr .Q0M DAVIDA 0 mls/hr Titration Protocol Dextrose 1,000 mls @ 100 mls/hr 01/19/24 05:25 Dextrose 5% 1,000 Ml IVPB PRN PRN Hypoglycemia Protocol Levofloxacin/Dextrose 750 mg in 150 mls @ 100 mls/hr 01/19/24 09:00 01/19/24 12:51 Levaquin 750 Mg/D5w 150 Ml IVPB 100 mls/hr Q48H DAVIDA Administration Insulin Aspart 3 - 6 units 01/19/24 08:00 01/20/24 11:19 Insulin Aspart (*Bkc) 100 Units/Ml SUB-Q Not Given TIDWM DAVIDA Protocol Insulin Aspart 1 - 3 units 01/19/24 21:00 01/19/24 21:56 Insulin Aspart (*Bkc) 100 Units/Ml SUB-Q 2 units HS DAVIDA Administration Protocol Insulin Glargine 40 units 01/19/24 21:00 01/19/24 21:54 Insulin Glargine (*Bkc) 100 Units/Ml SUB-Q 40 units HS DAVIDA Administration Loratadine 10 mg 01/19/24 02:28 Loratadine 10 Mg Tablet PO QAM PRN allergies Magnesium Oxide 400 mg 01/19/24 09:00 01/20/24 12:18 Magnesium Oxide 400 Mg Tablet PO 400 mg DAILY DAVIDA Administration Nadolol 40 mg 01/19/24 09:00 01/19/24 12:54 Nadolol 20 Mg Tablet PO 40 mg DAILY DAVIDA Administration Pantoprazole Sodium 40 mg 01/19/24 09:00 01/20/24 12:20 Pantoprazole 40 Mg Tablet PO 40 mg Q12HR DAVIDA Administration Perflutren Lipid Microsphere 0 ml 01/18/24 18:37 Perflutren Lipid Microspheres 1.5 Ml Vial Diluted To 10 Ml Total Volume IV PUSH 01/21/24 18:41 ONCE PRN adequate visualization Protocol Prednisone 40 mg 01/19/24 09:40 01/20/24 12:18 Prednisone 20 Mg Tablet PO 40 mg DAILY@0800 DAVIDA Administration Pregabalin 50 mg 01/19/24 06:00 01/20/24 06:25 Pregabalin (*Crx) 50 Mg Capsule PO 50 mg Q8HR DAVIDA Administration Zolpidem Tartrate 10 mg 01/19/24 18:10 01/19/24 21:55 Zolpidem Tartrate (*Crx) 5 Mg Tablet PO 10 mg HS PRN Administration Insomnia Radiology Results: ITS Impressions Chest X-Ray 01/18/24 14:57 IMPRESSION: 1. Airspace opacities in left lower lung zone, consistent with atelectasis versus pneumonia. 2. Compression of the port catheter between the clavicle and first rib. Chest/Abdomen/Pelvis CTA 01/18/24 17:05 IMPRESSION: 1. Mild pulmonary edema. 2. Severe stenosis of proximal left common carotid artery. 3. Cirrhosis of the liver with portal venous hypertension. 4. Worsened distribution of low attenuation involving segments 4A and 4B of the liver with thrombus in the associated portal vein, consistent with a combination of infarct and hepatocellular carcinoma. 5. Mild periportal and aortocaval lymphadenopathy, likely reactive. 6. Small volume of ascites. 7. 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 Labs Labs: Laboratory Results - last 24 hr 01/19/24 01/19/24 01/19/24 14:43 16:25 20:56 WBC RBC Hgb Hct MCV MCH MCHC RDW Plt Count MPV APTT 54.8 H Sodium Potassium Chloride Carbon Dioxide Anion Gap BUN Creatinine Estim Creat Clear Calc Estimated GFR Glucose POC Capillary Glucose 263 H 334 H Calcium Total Bilirubin AST ALT Alkaline Phosphatase Total Protein Albumin 01/19/24 01/20/24 01/20/24 22:26 04:56 07:46 WBC 4.6 RBC 2.76 L Hgb 8.7 L Hct 25.6 L MCV 92.8 MCH 31.5 MCHC 34.0 RDW 12.8 Plt Count 106 L MPV 9.5 APTT 108.7 H 105.0 H Sodium 136 L Potassium 4.1 Chloride 106 Carbon Dioxide 24 Anion Gap 6 BUN 26 H Creatinine 1.40 H Estim Creat Clear Calc 48 Estimated GFR 50 L Glucose 229 H POC Capillary Glucose 226 H Calcium 8.3 L Total Bilirubin 0.8 AST 18 ALT 11 Alkaline Phosphatase 53 Total Protein 6.0 L Albumin 3.5 01/20/24 11:12 WBC RBC Hgb Hct MCV MCH MCHC RDW Plt Count MPV APTT Sodium Potassium Chloride Carbon Dioxide Anion Gap BUN Creatinine Estim Creat Clear Calc Estimated GFR Glucose POC Capillary Glucose 160 H Calcium Total Bilirubin AST ALT Alkaline Phosphatase Total Protein Albumin
--- NOTE | 2024-01-20 14:40 | PC.NURSE ---
Report given to Sana Burrows RN @ 1232. Summary of procedure and plan discussed. Right Radial cath site discussed and mentioned Physician to nurse communication to resume heparin 2 hours post TR band removal. Off unit @ 1160
[2024-01-20] MEDS: HEPARIN SOD/D5W 100 UNITS/ML 25,000 UNITS/250 ML BAG 14 UNITS IV CONT (15:43)
[2024-01-20] MEDS: nadoloL 20 MG TABLET 40 MG PO (16:02)
[2024-01-20] MEDS: INSULIN ASPART (*BKC) 100 UNITS/ML SUB-Q (20:47)
[2024-01-20] MEDS: INSULIN GLARGINE (*BKC) 100 UNITS/ML 40 UNITS SUB-Q (20:48)
[2024-01-20 20:55] LABS: Glucose Point of Care 398 mg/dl (65-105)
[2024-01-20 21:48] LABS: Hematocrit 26.6 % (42.0-52.0); Hemoglobin 9.3 g/dL (14.0-18.0)
[2024-01-20 22:04] LABS: Partial Thromboplastin Time 60.2 Seconds (22.3-36.8)
[2024-01-20] MEDS: ZOLPIDEM TARTRATE (*CRX) 5 MG TABLET 10 MG PO (22:51)
[2024-01-20] MEDS: HEPARIN SODIUM 5,000 UNITS/ML VIAL 3500 UNITS IV PUSH (23:21)
[2024-01-21] VITALS (21 sets, daily range): BP systolic 110–130; BP diastolic 42–55; PULSE 63–77; RESP 16–18; TEMP 36.1–37.2; O2SAT 96–100; BMI 24.6
[2024-01-21 05:42] LABS: Partial Thromboplastin Time 162.7 Seconds (22.3-36.8)
[2024-01-21 07:44] LABS: Hematocrit 24.8 % (42.0-52.0); Hemoglobin 8.7 g/dL (14.0-18.0); Mean Corpuscular HGB Conc 35.1 g/dl (32-36); Mean Corpuscular Hemoglobin 32.2 pg (26-34); Mean Corpuscular Volume 91.9 fl (80-100); Mean Platelet Volume 10.2 fl (7.4-10.4); Platelet Count Result 114 k/mm3 (150-375); Red Cell Distribution Width 12.8 % (11.5-14.5); White Blood Count 4.2 K/mm3 (4.5-10.0)
[2024-01-21 07:56] LABS: Alanine Aminotransferase 11 U/L (6-50); Albumin Level 3.4 g/dL (3.5-5.1); Alkaline Phosphatase 57 U/L (38-126); Anion Gap 5 mmol/L (4-12); Aspartate Amino Transferase 26 U/L (17-59); Bilirubin,Total 0.9 mg/dL (0.2-1.3); Blood Urea Nitrogen 26 mg/dL (9-20); Calcium 8.2 mg/dL (8.4-10.2); Carbon Dioxide 24 mmol/L (22-30); Chloride 105 mmol/L (98-107); Estimated CRCL calculation 52 ml/min; Estimated Glomerular Filt Rate 55; Glucose 230 mg/dL (65-110); Potassium 4.1 mmol/L (3.4-5.0); Sodium 134 mmol/L (137-145)
[2024-01-21 08:42] LABS: Glucose Point of Care 187 mg/dl (65-105)
[2024-01-21] MEDS: amLODIPine BESYLATE 5 MG TABLET PO (09:34)
[2024-01-21] MEDS: FERROUS SULFATE 325 MG TABLET DR PO (09:34)
[2024-01-21] MEDS: predniSONE 20 MG TABLET 40 MG PO (09:34)
[2024-01-21] MEDS: nadoloL 20 MG TABLET 40 MG PO (09:35)
[2024-01-21] MEDS: PANTOPRAZOLE 40 MG TABLET PO ×2 (09:35→20:11)
[2024-01-21] MEDS: ASPIRIN 81 MG ENTERIC TABLET PO (09:35)
[2024-01-21] MEDS: MAGNESIUM OXIDE 400 MG TABLET PO (09:35)
[2024-01-21] MEDS: ATORVASTATIN 40 MG TABLET PO (09:35)
--- NOTE | 2024-01-21 10:51 | PM.PNCARD ---
Progress Note: A&P Assessment and Plan (1) NSTEMI (non-ST elevated myocardial infarction): Code(s): I21.4 - Non-ST elevation (NSTEMI) myocardial infarction Status: Acute (2) Aortic stenosis: Code(s): I35.0 - Nonrheumatic aortic (valve) stenosis Status: Acute (3) Stenosis of left carotid artery: Code(s): I65.22 - Occlusion and stenosis of left carotid artery Status: Acute Plan 68-year-old man with cirrhosis and hepatocellular carcinoma, hypertension, and hyperlipidemia who has also chronic smoker initially presented with chest pain whose clinical presentation is consistent non ST elevation DE Non ST elevation DE -currently on heparin drip and aspirin 81 mg daily -continue atorvastatin 40 mg every evening and continue the beta-yany which he is on for small gastric varix that is stable on July 2023 -will add Plavix 75 mg p.o. daily after 300 mg load -keep NPO past midnight for consideration of PCI tomorrow if hemoglobin and platelets are stable -if hemoglobin continues to trend downward, would recommend GI consult Mild aortic stenosis -outpatient surveillance monitoring Severe left common carotid artery stenosis -consider outpatient revascularization Hypertension -goal systolic blood pressure less than 140 -continue amlodipine 5mg PO daily Hyperlipidemia -goal LDL less than 70 and would continue atorvastatin 40 mg every evening Subjective Date/time seen: 01/21/24 10:51 Interval history: He is doing well today without any chest pain. Denies any shortness of breath or orthopnea. Review of Systems Constitutional: Constitutional: Reports as per HPI Cardiovascular: Cardiovascular: Reports as per HPI Respiratory: Respiratory: Reports as per HPI Exam Const: General: comfortable HENMT: Mouth: Yes moist mucous membranes Eyes: EOM: EOMs intact bilaterally Neck: Neck: no JVD Resp: Auscultation: clear to auscultation bilaterally Cardio: Rate: regular rate Rhythm: regular rhythm GI: GI Palp: Yes Soft to palpation Extrem: General: no edema and no pedal edema Psych: Affect: normal affect Objective Data Vital Signs Vital Signs: Vital Signs - 24 hr 01/20/24 11:09 01/20/24 11:24 01/20/24 11:45 Temperature Pulse Rate 67 69 71 Pulse Rate [Right Radial] 68 Respiratory Rate 17 Blood Pressure 119/58 L 125/56 L 107/88 Pulse Oximetry 99 97 98 Oxygen Delivery 01/20/24 12:00 01/20/24 12:15 01/20/24 12:30 Temperature 36.6 C Pulse Rate 68 72 71 Pulse Rate [Right Radial] Respiratory Rate 16 15 16 Blood Pressure 123/55 L 119/93 H 128/59 L Pulse Oximetry 99 96 100 Oxygen Delivery 01/20/24 12:00 01/20/24 12:00 01/20/24 12:00 Temperature 36.6 C Pulse Rate 69 69 Pulse Rate [Right Radial] Respiratory Rate Blood Pressure Pulse Oximetry Oxygen Delivery Room Air 01/20/24 11:30 01/20/24 12:45 01/20/24 13:00 Temperature Pulse Rate 68 74 70 Pulse Rate [Right Radial] 74 70 Respiratory Rate 16 17 16 Blood Pressure 127/58 L 123/59 L Pulse Oximetry 97 Oxygen Delivery 01/20/24 13:30 01/20/24 13:45 01/20/24 14:00 Temperature Pulse Rate 73 73 75 Pulse Rate [Right Radial] 73 73 Respiratory Rate 16 Blood Pressure 115/55 L 121/58 L Pulse Oximetry 97 96 Oxygen Delivery 01/20/24 14:00 01/20/24 14:15 01/20/24 14:24 Temperature Pulse Rate 72 72 71 Pulse Rate [Right Radial] 72 72 71 Respiratory Rate 18 18 17 Blood Pressure 121/60 118/57 L 122/54 L Pulse Oximetry 98 97 97 Oxygen Delivery 01/20/24 14:30 01/20/24 14:55 01/20/24 15:20 Temperature 37.2 C Pulse Rate 73 71 Pulse Rate [Right Radial] 71 71 Respiratory Rate 18 20 Blood Pressure 117/51 L Pulse Oximetry 98 99 Oxygen Delivery 01/20/24 16:02 01/20/24 16:00 01/20/24 16:00 Temperature 37.0 C Pulse Rate 71 73 Pulse Rate [Right Radial] Respiratory Rate 20 Blood Pressure 127/61 Pulse Oximetry 97 Oxygen Delivery Room Air 01/20/24 16:00 01/20/24 16:24 01/20/24 18:00 Temperature Pulse Rate 71 71 Pulse Rate [Right Radial] 75 Respiratory Rate Blood Pressure Pulse Oximetry Oxygen Delivery 01/20/24 19:42 01/20/24 20:00 01/20/24 20:00 Temperature 36.6 C Pulse Rate 78 78 72 Pulse Rate [Right Radial] Respiratory Rate 18 18 Blood Pressure 119/51 L Pulse Oximetry 94 94 Oxygen Delivery Room Air 01/20/24 22:00 01/20/24 23:03 01/21/24 00:00 Temperature 37.0 C Pulse Rate 72 75 75 Pulse Rate [Right Radial] Respiratory Rate 18 18 Blood Pressure 116/48 L Pulse Oximetry 96 96 Oxygen Delivery Room Air 01/21/24 00:00 01/21/24 02:00 01/21/24 03:37 Temperature 36.6 C Pulse Rate 77 68 68 Pulse Rate [Right Radial] Respiratory Rate 18 Blood Pressure 111/42 L Pulse Oximetry 96 Oxygen Delivery 01/21/24 04:00 01/21/24 04:00 01/21/24 06:00 Temperature Pulse Rate 66 66 63 Pulse Rate [Right Radial] Respiratory Rate 18 Blood Pressure Pulse Oximetry 96 Oxygen Delivery Room Air 01/21/24 07:35 01/21/24 09:35 Temperature 36.1 C L Pulse Rate 66 72 Pulse Rate [Right Radial] Respiratory Rate 16 Blood Pressure 118/49 L Pulse Oximetry 97 Oxygen Delivery Intake/Output Intake/Output: Intake & Output 01/18/24 01/19/24 01/20/24 01/21/24 23:59 23:59 23:59 23:59 Intake Total 3.0 1676.1 1813.5 932.4 Output Total 1800 1900 2600 Balance 3.0 -123.9 -86.5 -1667.6 Meds/Results Medications: Active Medications Generic Name Dose Route Start Last Admin Trade Name Freq PRN Reason Stop Dose Admin Acetaminophen 500 mg 01/19/24 02:23 Acetaminophen 500 Mg Tablet PO BID PRN Pain 1-3 Amlodipine Besylate 5 mg 01/19/24 09:00 01/21/24 09:34 Amlodipine Besylate 5 Mg Tablet PO 5 mg QAM DAVIDA Administration Aspirin 81 mg 01/19/24 09:00 01/21/24 09:35 Aspirin 81 Mg Enteric Tablet PO 81 mg QAM DAVIDA Administration Atorvastatin Calcium 40 mg 01/20/24 09:00 01/21/24 09:35 Atorvastatin 40 Mg Tablet PO 40 mg DAILY DAVIDA Administration Dextrose 12.5 gm 01/19/24 05:25 Dextrose 50% 25 Gm/50 Ml Syringe IV PUSH PRN PRN Hypoglycemia Protocol Ferrous Sulfate 325 mg 01/19/24 09:00 01/21/24 09:34 Ferrous Sulfate [address] PO 325 mg DAILY DAVIDA Administration Glucagon 1 mg 01/19/24 05:25 Glucagon For Inj 1 Mg Vial IM PRN PRN Hypoglycemia Protocol Glucose 15 gm 01/19/24 05:25 Glucose Oral Gel 15 Gm Of Glucse In 37.5 Gm Tube PO PRN PRN Hypoglycemia Protocol Heparin Sodium (Porcine) 4,000 units 01/18/24 18:28 01/19/24 01:36 Heparin Sodium 5,000 Units/Ml Vial IV PUSH 4,000 units PRN PRN Administration aPTT less than 55 seconds Heparin Sodium (Porcine) 3,500 units 01/18/24 18:28 01/20/24 23:21 Heparin Sodium 5,000 Units/Ml Vial IV PUSH 3,500 units PRN PRN Administration aPTT 55 - 70 seconds Hydroxyzine HCl 50 mg 01/19/24 02:23 Hydroxyzine Hcl 25 Mg Tablet PO Q8H PRN Itching Heparin Sodium/Dextrose 25,000 units in 250 mls @ 13 mls/hr 01/18/24 18:30 01/21/24 06:44 Heparin Sodium/D5w 100 Units/Ml IV CONT 1,300 units/hr .[id number] DAVIDA 13 mls/hr Titration Protocol 1,300 UNITS/HR Dextrose 1,000 mls @ 100 mls/hr 01/19/24 05:25 Dextrose 5% 1,000 Ml IVPB PRN PRN Hypoglycemia Protocol Levofloxacin/Dextrose 750 mg in 150 mls @ 100 mls/hr 01/19/24 09:00 01/19/24 12:51 Levaquin 750 Mg/D5w 150 Ml IVPB 100 mls/hr Q48H DAVIDA Administration Insulin Aspart 3 - 6 units 01/19/24 08:00 01/20/24 17:30 Insulin Aspart (*Bkc) 100 Units/Ml SUB-Q Not Given TIDWM DAVIDA Protocol Insulin Aspart 1 - 3 units 01/19/24 21:00 01/20/24 20:47 Insulin Aspart (*Bkc) 100 Units/Ml SUB-Q 3 units HS DAVIAD Administration Protocol Insulin Glargine 40 units 01/19/24 21:00 01/20/24 20:48 Insulin Glargine (*Bkc) 100 Units/Ml SUB-Q 40 units HS DAVIDA Administration Loratadine 10 mg 01/19/24 02:28 Loratadine 10 Mg Tablet PO QAM PRN allergies Magnesium Oxide 400 mg 01/19/24 09:00 01/21/24 09:35 Magnesium Oxide 400 Mg Tablet PO 400 mg DAILY DAVIDA Administration Nadolol 40 mg 01/19/24 09:00 01/21/24 09:35 Nadolol 20 Mg Tablet PO 40 mg DAILY DAVIDA Administration Pantoprazole Sodium 40 mg 01/19/24 09:00 01/21/24 09:35 Pantoprazole 40 Mg Tablet PO 40 mg Q12HR DAVIDA Administration Perflutren Lipid Microsphere 0 ml 01/18/24 18:37 Perflutren Lipid Microspheres 1.5 Ml Vial Diluted To 10 Ml Total Volume IV PUSH 01/21/24 18:41 ONCE PRN adequate visualization Protocol Prednisone 40 mg 01/19/24 09:40 01/21/24 09:34 Prednisone 20 Mg Tablet PO 40 mg DAILY@0800 DAVIDA Administration Pregabalin 50 mg 01/19/24 06:00 01/20/24 20:46 Pregabalin (*Crx) 50 Mg Capsule PO 50 mg Q8HR DAVIDA Administration Zolpidem Tartrate 10 mg 01/19/24 18:10 01/20/24 22:51 Zolpidem Tartrate (*Crx) 5 Mg Tablet PO 10 mg HS PRN Administration Insomnia Radiology Results: ITS Impressions Chest X-Ray 01/18/24 14:57 IMPRESSION: 1. Airspace opacities in left lower lung zone, consistent with atelectasis versus pneumonia. 2. Compression of the port catheter between the clavicle and first rib. Chest/Abdomen/Pelvis CTA 01/18/24 17:05 IMPRESSION: 1. Mild pulmonary edema. 2. Severe stenosis of proximal left common carotid artery. 3. Cirrhosis of the liver with portal venous hypertension. 4. Worsened distribution of low attenuation involving segments 4A and 4B of the liver with thrombus in the associated portal vein, consistent with a combination of infarct and hepatocellular carcinoma. 5. Mild periportal and aortocaval lymphadenopathy, likely reactive. 6. Small volume of ascites. 7. 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 Labs Labs: Laboratory Results - last 24 hr 01/20/24 01/20/24 01/20/24 11:12 19:45 21:39 WBC RBC Hgb 9.3 L Hct 26.6 L MCV MCH MCHC RDW Plt Count MPV APTT 60.2 H Sodium Potassium Chloride Carbon Dioxide Anion Gap BUN Creatinine Estim Creat Clear Calc Estimated GFR Glucose POC Capillary Glucose 160 H 398 H Calcium Total Bilirubin AST ALT Alkaline Phosphatase Total Protein Albumin 01/21/24 01/21/24 01/21/24 03:34 07:09 07:30 WBC 4.2 L RBC 2.70 L Hgb 8.7 L Hct 24.8 L MCV 91.9 MCH 32.2 MCHC 35.1 RDW 12.8 Plt Count 114 L MPV 10.2 APTT 162.7 H* Sodium 134 L Potassium 4.1 Chloride 105 Carbon Dioxide 24 Anion Gap 5 BUN 26 H Creatinine 1.30 Estim Creat Clear Calc 52 Estimated GFR 55 L Glucose 230 H POC Capillary Glucose 187 H Calcium 8.2 L Total Bilirubin 0.9 AST 26 ALT 11 Alkaline Phosphatase 57 Total Protein 6.0 L Albumin 3.4 L
[2024-01-21 10:55] LABS: IFOB Positive Control Positive; Immunochemical Fecal Occult Bl Positive (N)
[2024-01-21] MEDS: HEPARIN SOD/D5W 100 UNITS/ML 25,000 UNITS/250 ML BAG 13 UNITS IV CONT (11:26)
[2024-01-21] MEDS: CLOPIDOGREL BISULFATE 300 MG TABLET PO (11:28)
[2024-01-21] MEDS: levoFLOXacin 750 MG/D5W 150 ML 750 MG/150 ML BAG 100 MG IVPB (11:32)
[2024-01-21 12:18] LABS: Partial Thromboplastin Time 68.8 Seconds (22.3-36.8)
--- NOTE | 2024-01-21 12:32 | P.PNIM_ITS ---
Progress Note: A&P Assessment and Plan (1) Chest pain: Code(s): R07.9 - Chest pain, unspecified Status: Acute (2) Cirrhosis, alcoholic: Code(s): K70.30 - Alcoholic cirrhosis of liver without ascites Status: Acute (3) CHF (congestive heart failure): Code(s): I50.9 - Heart failure, unspecified Status: Acute (4) GERD (gastroesophageal reflux disease): Code(s): K21.9 - Gastro-esophageal reflux disease without esophagitis Status: Acute (5) HCC (hepatocellular carcinoma): Onset Date: 12/2022 Code(s): C22.0 - Liver cell carcinoma Status: Acute (6) Flash pulmonary edema: Code(s): J81.0 - Acute pulmonary edema Status: Acute (7) Insulin dependent diabetes mellitus: Status: Acute (8) Alcohol abuse, in remission: Code(s): F10.11 - Alcohol abuse, in remission Status: Acute (9) Continuous tobacco abuse: Code(s): Z72.0 - Tobacco use Status: Acute Plan Non ST elevation NM -Heparin drip -underwent diagnostic catheterization -possible cardiac catheterization again tomorrow -hemoglobin drop from 10-8.7 -repeat H and H shows 9.4 -ordered FOBT which is positive -will trend H&H -if necessary will consult Gastroenterology -Increase trend in Troponin : 0.013>0.070>0.265 -BNP : 8290 -ECHO pending -Atorvastatin 20 mg and aspirin 81 mg -Cardiology consulted -continue heparin drip and give sublingual nitro if needed -Echocardiogram shows Left ventricular systolic function is mildly reduced with an ejection fraction by Biplane Method of Discs of 51 % -Denies any illicit drug use -Reviewed EKG and CXR PNA/Hypersensitivity Pneumonitis -Order Levo, will complete the course on Sunday -reviewed chest x-ray - Prednisone 40 mg p.o. q.d. for 5 days -recurrent episodes after immunotherapy HCC -On immunotherapy -Follows Dr Cassidy as OP DM -hold home medication -on insulin sliding scale Subjective Date/time seen: 01/21/24 12:32 Interval history: He will complete his Levaquin 2 more days. Discussed the case with the water pump installer as a curbside. Since there is no significant drop in his hem oglobin I believe gastroenterology intervention is not needed at this time. Will continue to trend his hemoglobin. His stool occult is positive. Patient will possibly undergo cardiac catheterization tomorrow. Review of Systems Review of Systems: ROS unobtainable: Yes unobtainable due to medical condition ( respiratory failure on BiPAP) Exam Narrative: sitting in bed Const: General: comfortable, no acute distress ( on BiPAP), well developed, alert, awake, ill appearing chronically and average body habitus Nutritional Appearance: average body habitus Orientation/consciousness: patient oriented x3 Other: on BiPAP HENMT: Head: normal to inspection, normocephalic and atraumatic Ears: hearing grossly normal bilaterally Face/Nose/Sinus: normal facial exam Face and sinus: normal facial exam Eyes: General: appearance normal, both eyes and all related structures Pupils: Equal, round and reactive pupils present EOM: EOMs intact bilaterally Neck: Neck: full ROM, no lymphadenopathy and no JVD Thyroid: thyroid normal Lymphatic: no lymphadenopathy noted Resp: Effort & Inspection: normal respiratory effort, able to speak in complete sentences, not labored, not tachypneic, no tripod positioning, no use of accessory muscles, symmetric chest movement and other ( on BiPAP) Auscultation: crackles and diminished lung sounds Cardio: Jugular venous distension: no JVD Rate: regular rate Rhythm: regular rhythm Heart sounds: S1 normal heart sound present and S2 normal heart sound present : General: Yes deferred Skin: Rashes: no rashes Wounds: no wounds Neuro: General: patient oriented x3 and CN's II-XI intact bilaterally Cranial nerves: Yes CN's II-XII intact bilaterally and Yes Equal, round and reactive pupils present Cognition (Neuro): normal cognition Speech: normal speech Gait exam (Neuro): Normal gait present Motor exam (neuro): 5/5 motor strength present throughout Extrem: General: normal to inspection, full ROM, no joint enlargement and no pedal edema Objective Data Vital Signs Vital Signs: Vital Signs - 24 hr 01/20/24 12:45 01/20/24 13:00 01/20/24 13:30 Temperature Pulse Rate 74 70 73 Pulse Rate [Right Radial] 74 70 73 Respiratory Rate 17 16 Blood Pressure 123/59 L 115/55 L Pulse Oximetry 97 Oxygen Delivery 01/20/24 13:45 01/20/24 14:00 01/20/24 14:00 Temperature Pulse Rate 73 75 72 Pulse Rate [Right Radial] 73 72 Respiratory Rate 16 18 Blood Pressure 121/58 L 121/60 Pulse Oximetry 96 98 Oxygen Delivery 01/20/24 14:15 01/20/24 14:24 01/20/24 14:30 Temperature Pulse Rate 72 71 73 Pulse Rate [Right Radial] 72 71 71 Respiratory Rate 18 17 18 Blood Pressure 118/57 L 122/54 L Pulse Oximetry 97 97 98 Oxygen Delivery 01/20/24 14:55 01/20/24 15:20 01/20/24 16:02 Temperature 98.9 F Pulse Rate 71 71 Pulse Rate [Right Radial] 71 Respiratory Rate 20 Blood Pressure 117/51 L Pulse Oximetry 99 Oxygen Delivery 01/20/24 16:00 01/20/24 16:00 01/20/24 16:00 Temperature 98.6 F Pulse Rate 73 71 Pulse Rate [Right Radial] Respiratory Rate 20 Blood Pressure 127/61 Pulse Oximetry 97 Oxygen Delivery Room Air 01/20/24 16:24 01/20/24 18:00 01/20/24 19:42 Temperature 97.9 F Pulse Rate 71 78 Pulse Rate [Right Radial] 75 Respiratory Rate 18 Blood Pressure 119/51 L Pulse Oximetry 94 Oxygen Delivery 01/20/24 20:00 01/20/24 20:00 01/20/24 22:00 Temperature Pulse Rate 78 72 72 Pulse Rate [Right Radial] Respiratory Rate 18 Blood Pressure Pulse Oximetry 94 Oxygen Delivery Room Air 01/20/24 23:03 01/21/24 00:00 01/21/24 00:00 Temperature 98.6 F Pulse Rate 75 75 77 Pulse Rate [Right Radial] Respiratory Rate 18 18 Blood Pressure 116/48 L Pulse Oximetry 96 96 Oxygen Delivery Room Air 01/21/24 02:00 01/21/24 03:37 01/21/24 04:00 Temperature 97.8 F Pulse Rate 68 68 66 Pulse Rate [Right Radial] Respiratory Rate 18 Blood Pressure 111/42 L Pulse Oximetry 96 Oxygen Delivery 01/21/24 04:00 01/21/24 06:00 01/21/24 07:35 Temperature 97 F L Pulse Rate 66 63 66 Pulse Rate [Right Radial] Respiratory Rate 18 16 Blood Pressure 118/49 L Pulse Oximetry 96 97 Oxygen Delivery Room Air 01/21/24 09:35 01/21/24 11:20 01/21/24 08:00 Temperature Pulse Rate 72 65 Pulse Rate [Right Radial] Respiratory Rate 16 Blood Pressure Pulse Oximetry 99 99 Oxygen Delivery Room Air Room Air 01/21/24 08:00 01/21/24 10:00 01/21/24 11:22 Temperature 99 F Pulse Rate 65 65 65 Pulse Rate [Right Radial] Respiratory Rate 16 Blood Pressure 130/55 L Pulse Oximetry 99 Oxygen Delivery Intake/Output Intake/Output: Intake & Output 01/18/24 01/19/24 01/20/24 01/21/24 23:59 23:59 23:59 23:59 Intake Total 3.0 1826.1 1813.5 968.4 Output Total 1800 1900 2600 Balance 3.0 26.1 -86.5 -1631.6 Meds/Results Medications: Active Medications Generic Name Dose Route Start Last Admin Trade Name Freq PRN Reason Stop Dose Admin Acetaminophen 500 mg 01/19/24 02:23 Acetaminophen 500 Mg Tablet PO BID PRN Pain 1-3 Amlodipine Besylate 5 mg 01/19/24 09:00 01/21/24 09:34 Amlodipine Besylate 5 Mg Tablet PO 5 mg QAM DAVIDA Administration Aspirin 81 mg 01/19/24 09:00 01/21/24 09:35 Aspirin 81 Mg Enteric Tablet PO 81 mg QAM DAVIDA Administration Atorvastatin Calcium 40 mg 01/20/24 09:00 01/21/24 09:35 Atorvastatin 40 Mg Tablet PO 40 mg DAILY DAVIDA Administration Clopidogrel Bisulfate 75 mg 01/23/24 09:00 Clopidogrel Bisulfate 75 Mg Tablet PO QAM DAVIDA Dextrose 12.5 gm 01/19/24 05:25 Dextrose 50% 25 Gm/50 Ml Syringe IV PUSH PRN PRN Hypoglycemia Protocol Ferrous Sulfate 325 mg 01/19/24 09:00 01/21/24 09:34 Ferrous Sulfate [address] PO 325 mg DAILY DAVIDA Administration Glucagon 1 mg 01/19/24 05:25 Glucagon For Inj 1 Mg Vial IM PRN PRN Hypoglycemia Protocol Glucose 15 gm 01/19/24 05:25 Glucose Oral Gel 15 Gm Of Glucse In 37.5 Gm Tube PO PRN PRN Hypoglycemia Protocol Heparin Sodium (Porcine) 4,000 units 01/18/24 18:28 01/19/24 01:36 Heparin Sodium 5,000 Units/Ml Vial IV PUSH 4,000 units PRN PRN Administration aPTT less than 55 seconds Heparin Sodium (Porcine) 3,500 units 01/18/24 18:28 01/20/24 23:21 Heparin Sodium 5,000 Units/Ml Vial IV PUSH 3,500 units PRN PRN Administration aPTT 55 - 70 seconds Hydroxyzine HCl 50 mg 01/19/24 02:23 Hydroxyzine Hcl 25 Mg Tablet PO Q8H PRN Itching Heparin Sodium/Dextrose 25,000 units in 250 mls @ 13 mls/hr 01/18/24 18:30 01/21/24 11:26 Heparin Sodium/D5w 100 Units/Ml IV CONT 1,300 units/hr .[id number] DAVIDA 13 mls/hr Administration Protocol 1,300 UNITS/HR Dextrose 1,000 mls @ 100 mls/hr 01/19/24 05:25 Dextrose 5% 1,000 Ml IVPB PRN PRN Hypoglycemia Protocol Levofloxacin/Dextrose 750 mg in 150 mls @ 100 mls/hr 01/19/24 09:00 01/21/24 11:32 Levaquin 750 Mg/D5w 150 Ml IVPB 100 mls/hr Q48H DAVIDA Administration Insulin Aspart 3 - 6 units 01/19/24 08:00 01/21/24 12:28 Insulin Aspart (*Bkc) 100 Units/Ml SUB-Q Not Given TIDWM DAVIDA Protocol Insulin Aspart 1 - 3 units 01/19/24 21:00 01/20/24 20:47 Insulin Aspart (*Bkc) 100 Units/Ml SUB-Q 3 units HS DAVIAD Administration Protocol Insulin Glargine 40 units 01/19/24 21:00 01/20/24 20:48 Insulin Glargine (*Bkc) 100 Units/Ml SUB-Q 40 units HS DAVIDA Administration Loratadine 10 mg 01/19/24 02:28 Loratadine 10 Mg Tablet PO QAM PRN allergies Magnesium Oxide 400 mg 01/19/24 09:00 01/21/24 09:35 Magnesium Oxide 400 Mg Tablet PO 400 mg DAILY DAVIDA Administration Nadolol 40 mg 01/19/24 09:00 01/21/24 09:35 Nadolol 20 Mg Tablet PO 40 mg DAILY DAVIDA Administration Pantoprazole Sodium 40 mg 01/19/24 09:00 01/21/24 09:35 Pantoprazole 40 Mg Tablet PO 40 mg Q12HR DAVIDA Administration Perflutren Lipid Microsphere 0 ml 01/18/24 18:37 Perflutren Lipid Microspheres 1.5 Ml Vial Diluted To 10 Ml Total Volume IV PUSH 01/21/24 18:41 ONCE PRN adequate visualization Protocol Prednisone 40 mg 01/19/24 09:40 01/21/24 09:34 Prednisone 20 Mg Tablet PO 40 mg DAILY@0800 DAVIDA Administration Pregabalin 50 mg 01/19/24 06:00 01/20/24 20:46 Pregabalin (*Crx) 50 Mg Capsule PO 50 mg Q8HR DAVIDA Administration Zolpidem Tartrate 10 mg 01/19/24 18:10 01/20/24 22:51 Zolpidem Tartrate (*Crx) 5 Mg Tablet PO 10 mg HS PRN Administration Insomnia Radiology Results: ITS Impressions Chest X-Ray 01/18/24 14:57 IMPRESSION: 1. Airspace opacities in left lower lung zone, consistent with atelectasis versus pneumonia. 2. Compression of the port catheter between the clavicle and first rib. Chest/Abdomen/Pelvis CTA 01/18/24 17:05 IMPRESSION: 1. Mild pulmonary edema. 2. Severe stenosis of proximal left common carotid artery. 3. Cirrhosis of the liver with portal venous hypertension. 4. Worsened distribution of low attenuation involving segments 4A and 4B of the liver with thrombus in the associated portal vein, consistent with a combination of infarct and hepatocellular carcinoma. 5. Mild periportal and aortocaval lymphadenopathy, likely reactive. 6. Small volume of ascites. 7. 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 Labs Labs: Laboratory Results - last 24 hr 01/20/24 01/20/24 01/21/24 19:45 21:39 03:34 WBC RBC Hgb 9.3 L Hct 26.6 L MCV MCH MCHC RDW Plt Count MPV APTT 60.2 H 162.7 H* Sodium 134 L Potassium 4.1 Chloride 105 Carbon Dioxide 24 Anion Gap 5 BUN 26 H Creatinine 1.30 Estim Creat Clear Calc 52 Estimated GFR 55 L Glucose 230 H POC Capillary Glucose 398 H Calcium 8.2 L Total Bilirubin 0.9 AST 26 ALT 11 Alkaline Phosphatase 57 Total Protein 6.0 L Albumin 3.4 L Stl Occult Blood (IFOB) 01/21/24 01/21/24 01/21/24 07:09 07:30 10:27 WBC 4.2 L RBC 2.70 L Hgb 8.7 L Hct 24.8 L MCV 91.9 MCH 32.2 MCHC 35.1 RDW 12.8 Plt Count 114 L MPV 10.2 APTT Sodium Potassium Chloride Carbon Dioxide Anion Gap BUN Creatinine Estim Creat Clear Calc Estimated GFR Glucose POC Capillary Glucose 187 H Calcium Total Bilirubin AST ALT Alkaline Phosphatase Total Protein Albumin Stl Occult Blood (IFOB) Positive H 01/21/24 11:42 WBC RBC Hgb Hct MCV MCH MCHC RDW Plt Count MPV APTT 68.8 H Sodium Potassium Chloride Carbon Dioxide Anion Gap BUN Creatinine Estim Creat Clear Calc Estimated GFR Glucose POC Capillary Glucose Calcium Total Bilirubin AST ALT Alkaline Phosphatase Total Protein Albumin Stl Occult Blood (IFOB) Hospitalist MIPS Advance Care Plan I have confirmed that the patient's Advanced Care Plan is present, code status is documented, or surrogate decision maker is listed in patient medical record.: Yes Medication Reconciliation I have utilized all available resources to obtain, update and review the patients current medications (includes all prescriptions, OTC, herbals, cannabis , and nutritional supplements).: Yes
[2024-01-21] MEDS: PREGABALIN (*CRX) 50 MG CAPSULE PO ×2 (13:15→20:11)
--- NOTE | 2024-01-21 14:06 | PCCPR ---
Visited patient bedside to give Cardiac Rehab information
[2024-01-21 14:12] LABS: Glucose Point of Care 193 mg/dl (65-105)
[2024-01-21 16:39] LABS: Glucose Point of Care 339 mg/dl (65-105)
[2024-01-21] MEDS: INSULIN ASPART (*BKC) 100 UNITS/ML SUB-Q ×2 (17:05→20:07)
[2024-01-21] MEDS: HEPARIN SOD/D5W 100 UNITS/ML 25,000 UNITS/250 ML BAG 15 UNITS IV CONT (17:44)
[2024-01-21 18:48] LABS: Hemoglobin 9.4 g/dL (14.0-18.0)
[2024-01-21 19:09] LABS: Partial Thromboplastin Time 40.1 Seconds (22.3-36.8)
[2024-01-21] MEDS: HEPARIN SODIUM 5,000 UNITS/ML VIAL 4000 UNITS IV PUSH (19:42)
[2024-01-21] MEDS: INSULIN GLARGINE (*BKC) 100 UNITS/ML 40 UNITS SUB-Q (20:08)
[2024-01-21] MEDS: ZOLPIDEM TARTRATE (*CRX) 5 MG TABLET 10 MG PO (20:11)
[2024-01-21 21:12] LABS: Glucose Point of Care 323 mg/dl (65-105)
[2024-01-22] VITALS (13 sets, daily range): BP systolic 126–135; BP diastolic 50–55; PULSE 61–74; RESP 16–20; TEMP 36.4–37; O2SAT 98–100; BMI 24.6
[2024-01-22 02:17] LABS: Hematocrit 25.5 % (42.0-52.0); Hemoglobin 9.1 g/dL (14.0-18.0); Mean Corpuscular HGB Conc 35.7 g/dl (32-36); Mean Corpuscular Hemoglobin 32.2 pg (26-34); Mean Corpuscular Volume 90.1 fl (80-100); Mean Platelet Volume 9.4 fl (7.4-10.4); Platelet Count Result 134 k/mm3 (150-375); Red Blood Count 2.83 M/mm3 (4.6-6.20); Red Cell Distribution Width 12.6 % (11.5-14.5); White Blood Count 4.5 K/mm3 (4.5-10.0)
[2024-01-22 02:22] LABS: Alanine Aminotransferase 13 U/L (6-50); Albumin Level 3.7 g/dL (3.5-5.1); Alkaline Phosphatase 55 U/L (38-126); Anion Gap 5 mmol/L (4-12); Aspartate Amino Transferase 19 U/L (17-59); Bilirubin,Total 0.9 mg/dL (0.2-1.3); Blood Urea Nitrogen 27 mg/dL (9-20); Calcium 8.5 mg/dL (8.4-10.2); Carbon Dioxide 24 mmol/L (22-30); Chloride 106 mmol/L (98-107); Estimated CRCL calculation 52 ml/min; Estimated Glomerular Filt Rate 55; Glucose 146 mg/dL (65-110); Sodium 135 mmol/L (137-145)
[2024-01-22 02:40] LABS: Partial Thromboplastin Time > 200.0 Seconds (22.3-36.8)
[2024-01-22] MEDS: HEPARIN SOD/D5W 100 UNITS/ML 25,000 UNITS/250 ML BAG 15 UNITS IV CONT (04:21)
[2024-01-22 07:49] LABS: Glucose Point of Care 108 mg/dl (65-105)
[2024-01-22] MEDS: predniSONE 20 MG TABLET 40 MG PO (08:40)
[2024-01-22] MEDS: nadoloL 20 MG TABLET 40 MG PO (08:41)
[2024-01-22] MEDS: MAGNESIUM OXIDE 400 MG TABLET PO (08:41)
[2024-01-22] MEDS: ASPIRIN 81 MG ENTERIC TABLET PO (08:41)
[2024-01-22] MEDS: FERROUS SULFATE 325 MG TABLET DR PO (08:41)
[2024-01-22] MEDS: amLODIPine BESYLATE 5 MG TABLET PO (08:41)
[2024-01-22] MEDS: PANTOPRAZOLE 40 MG TABLET PO (08:41)
[2024-01-22] MEDS: ATORVASTATIN 40 MG TABLET PO (08:41)
[2024-01-22 09:05] LABS: Partial Thromboplastin Time 105.4 Seconds (22.3-36.8)
[2024-01-22 12:29] LABS: Glucose Point of Care 127 mg/dl (65-105)
--- NOTE | 2024-01-22 12:41 | PM.PNCARD ---
Progress Note: A&P Assessment and Plan (1) NSTEMI (non-ST elevated myocardial infarction): Code(s): I21.4 - Non-ST elevation (NSTEMI) myocardial infarction Status: Acute Plan 68-year-old man with cirrhosis and hepatocellular carcinoma, hypertension, hyperlipidemia, tobacco dependence presented with chest pain whose clinical presentation is consistent non ST elevation [place] Non ST elevation [place] -Continue ASA 81mg once daily. -Continue high intensity statin -Started on Plavix with 300mg on 01/20, will start 75mg once daily. -Has completed Heparin drip > 48 hours now, will stop. -Cardiac catheterization images personally reviewed and findings discussed with patient, does have significant lesion in Diagonal, mid RCA, RPDA. Calcifications noted in the RCA. Plan was for staged PCI to the RCA, however, upon review of his cath films, there is tortuosity in the vessel proximal to the lesion and this may make PCI more difficult. I think that doing his PCI at [facility] may be better in case more support tools/catheters, etc. are needed than what we have available here at [place]. Patient's primary measurement and verification engineer is Dr. Harris. Will see if we can get him set up for staged PCI with Dr. Harris. Patient has not had any recurrence of chest pain since admission (Sunday) and has otherwise been doing well, ambulating around room without any symptoms. Echocardiogram shows LVEF 51%, mild-moderate MR, mild . Patient is stable for outpatient staged PCI rather than needing to be transferred as inpatient. Discussed this extensively with patient and , who also agree and are happy with the plan. Return precautions with the patient discussed. Will start Imdur, discharge patient with SL NTG. Patient's chest pain happened shortly after getting his immunotherapy. He had similar but less intense chest pain with the previous immunotherapy session as well. Next immunotherapy session is not until 02/13, but discussed with patient that since he gets chest pain with his immunotherapy sessions, then would prefer to get his staged PCI done first prior to next immunotherapy session. Mild aortic stenosis -Outpatient surveillance monitoring Severe left common carotid artery stenosis -Consider outpatient revascularization Hypertension -Goal systolic blood pressure less than 140 -Continue Amlodipine 5mg PO daily Hyperlipidemia -Goal LDL less than 70 and would continue Atorvastatin 40 mg every evening Recommendations and plan discussed with Hospitalist. Subjective Date/time seen: 01/22/24 12:41 Interval history: Reason for visit: NSTEMI No more chest pain since his initial chest pain episode on Sunday. Feeling well without any other symptoms. No arrhythmias on tele. Review of Systems Review of Systems: All systems reviewed & are unremarkable except as noted in HPI and below (HPI) Exam Const: General: comfortable and no acute distress HENMT: Mouth: Yes moist mucous membranes Eyes: General: appearance normal, both eyes and all related structures Sclera: sclerae normal Resp: Effort & Inspection: normal respiratory effort Cardio: Rate: regular rate Rhythm: regular rhythm Heart sounds: no murmurs Skin: General skin exam: normal color Neuro: Speech: normal speech Psych: Mental Status: mental status grossly normal Affect: normal affect Objective Data Vital Signs Vital Signs: Vital Signs - 24 hr 01/21/24 15:26 01/21/24 14:00 01/21/24 16:00 Temperature 36.3 C L Pulse Rate 66 66 66 Respiratory Rate 16 Blood Pressure 110/52 L Pulse Oximetry 100 Oxygen Delivery 01/21/24 16:00 01/21/24 18:00 01/21/24 19:36 Temperature 36.7 C Pulse Rate 72 72 63 Respiratory Rate 18 Blood Pressure 124/53 L Pulse Oximetry 100 Oxygen Delivery Room Air 01/21/24 19:49 01/21/24 20:00 01/21/24 22:10 Temperature Pulse Rate 63 63 66 Respiratory Rate 18 Blood Pressure Pulse Oximetry 100 Oxygen Delivery Room Air 01/21/24 23:57 01/22/24 00:00 01/22/24 00:00 Temperature 36.8 C Pulse Rate 67 67 67 Respiratory Rate 18 18 Blood Pressure 125/50 L Pulse Oximetry 98 98 Oxygen Delivery Room Air 01/22/24 02:21 01/22/24 03:59 01/22/24 03:59 Temperature Pulse Rate 70 70 70 Respiratory Rate 18 Blood Pressure Pulse Oximetry 98 Oxygen Delivery Room Air 01/22/24 04:20 01/22/24 04:32 01/22/24 05:59 Temperature 37.0 C Pulse Rate 64 61 62 Respiratory Rate 18 Blood Pressure 130/50 L Pulse Oximetry 100 Oxygen Delivery 01/22/24 07:21 01/22/24 08:41 01/22/24 08:00 Temperature 36.4 C L Pulse Rate 74 61 Respiratory Rate 20 Blood Pressure 135/55 L Pulse Oximetry 100 Oxygen Delivery Room Air 01/22/24 11:28 Temperature 36.4 C L Pulse Rate 62 Respiratory Rate 16 Blood Pressure 126/52 L Pulse Oximetry 100 Oxygen Delivery Intake/Output Intake/Output: Intake & Output 01/19/24 01/20/24 01/21/24 01/22/24 23:59 23:59 23:59 23:59 Intake Total 1826.1 1813.5 2045.8 1309.9 Output Total 1800 1900 3075 2600 Balance 26.1 -86.5 -1029.2 -1290.1 Meds/Results Medications: Active Medications Generic Name Dose Route Start Last Admin Trade Name Freq PRN Reason Stop Dose Admin Acetaminophen 500 mg 01/19/24 02:23 Acetaminophen 500 Mg Tablet PO BID PRN Pain 1-3 Amlodipine Besylate 5 mg 01/19/24 09:00 01/22/24 08:41 Amlodipine Besylate 5 Mg Tablet PO 5 mg QAM DAVIDA Administration Aspirin 81 mg 01/19/24 09:00 01/22/24 08:41 Aspirin 81 Mg Enteric Tablet PO 81 mg QAM DAVIDA Administration Atorvastatin Calcium 40 mg 01/20/24 09:00 01/22/24 08:41 Atorvastatin 40 Mg Tablet PO 40 mg DAILY DAVIDA Administration Clopidogrel Bisulfate 75 mg 01/22/24 12:45 Clopidogrel Bisulfate 75 Mg Tablet PO QAM DAVIDA Dextrose 12.5 gm 01/19/24 05:25 Dextrose 50% 25 Gm/50 Ml Syringe IV PUSH PRN PRN Hypoglycemia Protocol Ferrous Sulfate 325 mg 01/19/24 09:00 01/22/24 08:41 Ferrous Sulfate [address] PO 325 mg DAILY DAVIDA Administration Glucagon 1 mg 01/19/24 05:25 Glucagon For Inj 1 Mg Vial IM PRN PRN Hypoglycemia Protocol Glucose 15 gm 01/19/24 05:25 Glucose Oral Gel 15 Gm Of Glucse In 37.5 Gm Tube PO PRN PRN Hypoglycemia Protocol Hydroxyzine HCl 50 mg 01/19/24 02:23 Hydroxyzine Hcl 25 Mg Tablet PO Q8H PRN Itching Dextrose 1,000 mls @ 100 mls/hr 01/19/24 05:25 Dextrose 5% 1,000 Ml IVPB PRN PRN Hypoglycemia Protocol Insulin Aspart 3 - 6 units 01/19/24 08:00 01/22/24 12:37 Insulin Aspart (*Bkc) 100 Units/Ml SUB-Q Not Given TIDWM [facility] Protocol Insulin Aspart 1 - 3 units 01/19/24 21:00 01/21/24 20:07 Insulin Aspart (*Bkc) 100 Units/Ml SUB-Q 2 units HS [facility] Administration Protocol Insulin Glargine 40 units 01/19/24 21:00 01/21/24 20:08 Insulin Glargine (*Bkc) 100 Units/Ml SUB-Q 40 units HS DAVIDA Administration Isosorbide Mononitrate 60 mg 01/22/24 12:45 Isosorbide Mononitrate 60 Mg Tab.Er.24h PO QAM DAVIDA Levofloxacin 750 mg 01/22/24 09:00 Levofloxacin 750 Mg Tablet PO 01/23/24 15:01 DAILY DAVIDA Loratadine 10 mg 01/19/24 02:28 Loratadine 10 Mg Tablet PO QAM PRN allergies Magnesium Oxide 400 mg 01/19/24 09:00 01/22/24 08:41 Magnesium Oxide 400 Mg Tablet PO 400 mg DAILY DAVIDA Administration Nadolol 40 mg 01/19/24 09:00 01/22/24 08:41 Nadolol 20 Mg Tablet PO 40 mg DAILY DAVIDA Administration Pantoprazole Sodium 40 mg 01/19/24 09:00 01/22/24 08:41 Pantoprazole 40 Mg Tablet PO 40 mg Q12HR DAVIDA Administration Prednisone 40 mg 01/19/24 09:40 01/22/24 08:40 Prednisone 20 Mg Tablet PO 40 mg DAILY@0800 DAVIDA Administration Pregabalin 50 mg 01/19/24 06:00 01/22/24 05:39 Pregabalin (*Crx) 50 Mg Capsule PO Not Given Q8HR [facility] Zolpidem Tartrate 10 mg 01/19/24 18:10 01/21/24 20:11 Zolpidem Tartrate (*Crx) 5 Mg Tablet PO 10 mg HS PRN Administration Insomnia Radiology Results: ITS Impressions Chest X-Ray 01/18/24 14:57 IMPRESSION: 1. Airspace opacities in left lower lung zone, consistent with atelectasis versus pneumonia. 2. Compression of the port catheter between the clavicle and first rib. Chest/Abdomen/Pelvis CTA 01/18/24 17:05 IMPRESSION: 1. Mild pulmonary edema. 2. Severe stenosis of proximal left common carotid artery. 3. Cirrhosis of the liver with portal venous hypertension. 4. Worsened distribution of low attenuation involving segments 4A and 4B of the liver with thrombus in the associated portal vein, consistent with a combination of infarct and hepatocellular carcinoma. 5. Mild periportal and aortocaval lymphadenopathy, likely reactive. 6. Small volume of ascites. 7. 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 Labs Labs: Laboratory Results - last 24 hr 01/21/24 01/21/24 01/21/24 11:22 16:13 18:41 WBC RBC Hgb 9.4 L Hct 29.0 L MCV MCH MCHC RDW Plt Count MPV % Immature Plt Fraction APTT 40.1 H Sodium Potassium Chloride Carbon Dioxide Anion Gap BUN Creatinine Estim Creat Clear Calc Estimated GFR Glucose POC Capillary Glucose 193 H 339 H Calcium Total Bilirubin AST ALT Alkaline Phosphatase Total Protein Albumin 01/21/24 01/22/24 01/22/24 19:41 02:06 07:19 WBC 4.5 RBC 2.83 L Hgb 9.1 L Hct 25.5 L MCV 90.1 MCH 32.2 MCHC 35.7 RDW 12.6 Plt Count 134 L MPV 9.4 % Immature Plt Fraction 4.0 APTT > 200.0 H* Sodium 135 L Potassium 4.0 Chloride 106 Carbon Dioxide 24 Anion Gap 5 BUN 27 H Creatinine 1.30 Estim Creat Clear Calc 52 Estimated GFR 55 L Glucose 146 H POC Capillary Glucose 323 H 108 H Calcium 8.5 Total Bilirubin 0.9 AST 19 ALT 13 Alkaline Phosphatase 55 Total Protein 7.0 Albumin 3.7 01/22/24 01/22/24 08:37 11:27 WBC RBC Hgb Hct MCV MCH MCHC RDW Plt Count MPV % Immature Plt Fraction APTT 105.4 H Sodium Potassium Chloride Carbon Dioxide Anion Gap BUN Creatinine Estim Creat Clear Calc Estimated GFR Glucose POC Capillary Glucose 127 H Calcium Total Bilirubin AST ALT Alkaline Phosphatase Total Protein Albumin
[2024-01-22] MEDS: CLOPIDOGREL BISULFATE 75 MG TABLET PO (13:42)
[2024-01-22] MEDS: ISOSORBIDE MONONITRATE 60 MG TAB.ER.24H PO (13:42)
[2024-01-22] MEDS: PREGABALIN (*CRX) 50 MG CAPSULE PO (13:42)
--- NOTE | 2024-01-22 15:29 | P.DS_ITS ---
DS: Admitting Diagnosis Discharge Date 01/12/2024 Admitting Diagnosis Shortness of breath DS: Summary Hospital Course Hospital Course: This is a 68-year-old male with past medical history significant for hepatic cirrhosis, hepatocellular carcinoma, alcohol dependence, tobacco dependence. patient presents to the emergency room with chest pain, 7/10 intensity, nonradiating, feels like been punched . preliminary workup was significant for CT angiogram with findings worsening hepatocellular carcinoma and portal vein thrombosis and pneumonia. CT abdomen chest showed mild pulmonary edema, severe stenosis of the proximal left common carotid artery. Liver cirrhosis with portal thrombosis hepatocellular carcinoma. Patient was seen by cardiology and underwent cardiac cath with 70-75% mRCA adn PDA 80% stenosis, and D1 75-80%. cardiology adjusted meds as follows Apsirin, Plavix and Isosorbide mononitrate, and to continue Xarelto. Cardiology recommended follow up with Dr Harris at [facility] for PCI. HB 8.7 with positive occult blood stool, however, GI evaluated and no intervention was recommended in the bacjground of liver cancer. Patient will continue follow up outpatient. Patient was started on Levaquin and Prednisone for pneumonitis, however CT Chest showed no pneumonia but pulm edema. Abx adn steroid discontinued. F/u with PCP in 3-5 days, F/u with cardiology as instructed and refferral with Dr Harris per cards. continue follow up with oncology and GI as instructed. Time Spent with Patient Time attestation: Total time spent providing and/or coordinating discharge services: DS: Data Data Completed and Pending Labs on day of discharge: Labs from last 24 hours 01/22/24 01/22/24 01/22/24 11:27 08:37 07:19 WBC RBC Hgb Hct MCV MCH MCHC RDW Plt Count MPV % Immature Plt Fraction APTT 105.4 H Sodium Potassium Chloride Carbon Dioxide Anion Gap BUN Creatinine Estim Creat Clear Calc Estimated GFR Glucose POC Capillary Glucose 127 H 108 H Calcium Total Bilirubin AST ALT Alkaline Phosphatase Total Protein Albumin 01/22/24 01/21/24 01/21/24 02:06 19:41 18:41 WBC 4.5 RBC 2.83 L Hgb 9.1 L 9.4 L Hct 25.5 L 29.0 L MCV 90.1 MCH 32.2 MCHC 35.7 RDW 12.6 Plt Count 134 L MPV 9.4 % Immature Plt Fraction 4.0 APTT > 200.0 H* 40.1 H Sodium 135 L Potassium 4.0 Chloride 106 Carbon Dioxide 24 Anion Gap 5 BUN 27 H Creatinine 1.30 Estim Creat Clear Calc 52 Estimated GFR 55 L Glucose 146 H POC Capillary Glucose 323 H Calcium 8.5 Total Bilirubin 0.9 AST 19 ALT 13 Alkaline Phosphatase 55 Total Protein 7.0 Albumin 3.7 01/21/24 16:13 WBC RBC Hgb Hct MCV MCH MCHC RDW Plt Count MPV % Immature Plt Fraction APTT Sodium Potassium Chloride Carbon Dioxide Anion Gap BUN Creatinine Estim Creat Clear Calc Estimated GFR Glucose POC Capillary Glucose 339 H Calcium Total Bilirubin AST ALT Alkaline Phosphatase Total Protein Albumin Discharge Plan Discharge Attending physician on discharge: Riley Blevins Consulting providers: Tonja Morton Discharging Clinician: Riley Blevins Anticipated Discharge Date/Time: 01/22/24 15:19 Patient Disposition: Home, Self-Care Activity: as tolerated Diet: heart healthy Patient Instructions: Antibiotic Form, Rivaroxaban (By mouth), Heart Attack (GEN), Pulmonary Edema (DC), Heart Healthy Diet (GEN), Safe Use of Anticoagulants (DC), High Troponin Levels (GEN) Stand Alone Forms: General Discharge Information Follow-up/Referrals: Tonja Morton MD [Physician] - (F/u with cardiology as instructed) Discharge Medications: New prednisone 10 mg tablet 40 mg PO DAILY 2 Days Qty: 8 0RF atorvastatin 40 mg Tablet 40 mg PO DAILY 30 Days Qty: 30 1RF clopidogrel 75 mg Tablet 75 mg PO QAM 30 Days Qty: 30 1RF isosorbide mononitrate 30 mg tablet extended release 24 hr 30 mg PO DAILY Qty: 30 1RF levofloxacin 750 mg tablet 750 mg PO DAILY Qty: 2 0RF Continued atorvastatin 20 mg tablet 20 mg PO DAILY pantoprazole 40 mg tablet,delayed release (DR/EC) 40 mg PO Q12H zolpidem 10 mg tablet 10 mg PO HS pregabalin 50 mg capsule 50 mg PO Q8H Fiasp U-100 Insulin 100 unit/mL solution See Protocol subcut TID Protocol: Insulin Corrective Moderate-Dose Condition: glucose < 70 mg/dl Dose/Route: Follow hypoglycemia orders Condition: glucose 70-200 mg/dl Dose/Route: No additional insulin Condition: glucose 201-250 mg/dl Dose/Route: 3 units sub-Q Condition: glucose 251-300 mg/dl Dose/Route: 4 units sub-Q Condition: glucose 301-350 mg/dl Dose/Route: 5 units sub-Q Condition: glucose 351-400 mg/dl Dose/Route: 6 units sub-Q Condition: glucose > 400 mg/dl Dose/Route: Call MD Protocol Text: *No Correction Dose at Bedtime* Rx Instructions: sliding scale insulin degludec [Tresiba U-100 Insulin] 100 unit/mL solution 40 unit SUBCUT HS amlodipine 5 mg Tablet 5 mg PO QAM acetaminophen 500 mg Capsule 500 mg PO BID PRN (Reason: Pain) albuterol sulfate 90 mcg/actuation HFA aerosol inhaler 1 puff INHALATION Q4-6H PRN (Reason: Shortness Of Breath Or Wheezing) cetirizine 10 mg tablet 10 mg PO DAILY PRN (Reason: allergies) hydroxyzine HCl 50 mg tablet 50 mg PO Q8H PRN (Reason: Itching) magnesium oxide 400 mg (241.3 mg magnesium) tablet 400 mg PO DAILY nadolol 40 mg tablet 40 mg PO DAILY ferrous sulfate 325 mg (65 mg iron) Capsule, Extended Release 325 mg PO DAILY Xarelto 20 mg tablet 20 mg PO DAILY mecobalamin (vitamin B12) [B12 Active] 1,000 mcg Tablet,Chewable 1,000 mcg PO DAILY metoclopramide HCl [Reglan] 10 mg tablet 10 mg PO Q6H PRN (Reason: nausea and vomiting) Qty: 14 0RF Date of admission: 01/18/24 18:32 Primary Care Provider: Sandie,Shay Admitting Provider: Daniel Meraz Attending physician on admission: Daniel Meraz Condition: Stable
[2024-01-22] MEDS: levoFLOXacin 750 MG TABLET PO (15:51)
--- NOTE | 2024-01-22 16:40 | PC.NURSE ---
IV removed, dc instructions given to and patient. Both parties verbalized understanding. WC dc.
== END 2024-01-22 16:40 | disposition home or self-care (01) | DRG 280 ==
LOC: ANHED 18:52 → ANHIMU 19:38 → ANHICU 01-20 10:36 → ANHIMU 01-20 15:04
PROVIDERS: General Practice; Internal Medicine; Internal Medicine Interventional Cardiology; Nurse Practitioner; Admitting Provider Internal Medicine; Emergency Provider Emergency Medicine; PCP Internal Medicine; Visit Provider Internal Medicine
PROC: 4A023N7 Measurement of Cardiac Sampling and Pressure, Left Heart, Percutaneous Approach (ICD-10-PCS; CPT 93452; principal; 2024-01-20 08:35)
DX: I21.4 Non-ST elevation (NSTEMI) myocardial infarction (principal); I81 Portal vein thrombosis; C22.0 Liver cell carcinoma; K76.6 Portal hypertension; I69.351 Hemiplegia and hemiparesis following cerebral infarction affecting right dominant side; J81.1 Chronic pulmonary edema; C22.7 Other specified carcinomas of liver; K70.30 Alcoholic cirrhosis of liver without ascites; K21.9 Gastro-esophageal reflux disease without esophagitis; I44.7 Left bundle-branch block, unspecified; F10.11 Alcohol abuse, in remission; E11.42 Type 2 diabetes mellitus with diabetic polyneuropathy; E11.22 Type 2 diabetes mellitus with diabetic chronic kidney disease; I12.9 Hypertensive chronic kidney disease with stage 1 through stage 4 chronic kidney disease, or unspecified chronic kidney disease; N18.30 Chronic kidney disease, stage 3 unspecified; I65.22 Occlusion and stenosis of left carotid artery; E78.5 Hyperlipidemia, unspecified; I35.0 Nonrheumatic aortic (valve) stenosis; F17.210 Nicotine dependence, cigarettes, uncomplicated; Z79.82 Long term (current) use of aspirin; Z79.4 Long term (current) use of insulin; Z89.412 Acquired absence of left great toe; Z96.1 Presence of intraocular lens; Z98.42 Cataract extraction status, left eye; Z98.41 Cataract extraction status, right eye; Z79.01 Long term (current) use of anticoagulants; Z85.51 Personal history of malignant neoplasm of bladder
CPT/HCPCS: 36415; 36600; 71046; 71275; 74174; 80053; 82274; 82805; 82948; 83690; 83880; 84484; 85014; 85018; 85025; 85027; 85055; 85380; 85610; 85730; 93005; 93306; 93458; 94002; 96365; 96366; 96375; 99291; A9270; C1769; C1887; C1894; J1171; J1644; J1815; J1939; J1940; J1956; J2003; J2250; J2305; J3010; J7040; J7512; Q9967

== ENCOUNTER 2024-04-03 10:04 | Outpatient (CLI) | payer MEDICARE, SELFPAY ==
--- NOTE | ~2024-04-03 | CT_ITS ---
EXAMINATION: CT abdomen pelvis w con DATE: 04/03/2024 10:36 INDICATION: Hepatocellular carcinoma TECHNIQUE: Computed tomography (CT) of the abdomen and pelvis was performed with 100 mL Omnipaque-350 intravenous contrast. Automated exposure control and iterative reconstruction technique were employe d. The dose-length product was 451.74 mGy-cm. COMPARISON: Multiple CT studies dated between 01/18/2024 and FINDINGS: Lung bases are clear. Heart size normal. Atherosclerotic coronary artery disease with dense calcifica tions versus stenting along the right coronary artery. No pericardial or pleural effusion. Cirrhosis with subtle liver surface nodularity. Continued decrease in size of a wedge-shaped region o f decreased attenuation with overlying capsular retraction in segment 4A and 4B of the liver consiste nt with likely response to treatment of reported hepatocellular carcinoma. Calcified gallstones in th e dependent neck of the normal nondilated gallbladder. Mild splenomegaly measuring 14.2 cm in length likely related to secondary portal venous hypertension. Unchanged small subcapsular chronic perisplen ic subcapsular chronic hematoma. The pancreas and bilateral adrenal glands are normal. There are sple norenal collaterals along with a varicose vein extending into the adjacent wall of the gastric fundus . There is urothelial enhancement at the bilateral renal pelvises sees suggestive of ascending urinary tract infection. The kidneys are otherwise unremarkable. There is also wall thickening at the bladder with mucosal enhancement and subtle stranding in the immediately adjacent fat suspicious for cystiti s. There is mild colonic diverticulosis with a sigmoid predominance. There is no adjacent inflammato ry change to suggest diverticulitis. No bowel obstruction. Minimal likely reactive free fluid in the deep pelvis. No pathologically enlarged abdominal or pelvic lymphadenopathy. Severe lumbar spondylosi s. IMPRESSION: 1. Cirrhosis with progressive volume loss of a wedge-shaped region of decreased enhancement in segmen t Esteban and IVb of the liver consistent with likely response to treatment of a biopsy revealed hepatoce llular carcinoma this region. 2. Mild splenomegaly and splenorenal collaterals including a prominent varix within the gastric wall consistent with secondary portal venous hypertension. 3. Likely cystitis with urothelial enhancement at the bilateral renal pelvises consistent with associ ated ascending urinary tract infections without associated pyelonephritis. 4. Cholelithiasis. Reviewed, dictated and finalized at location A. IMPLANT MACHINE OPERATOR IMPRESSION: 1. Cirrhosis with progressive volume loss of a wedge-shaped region of decreased enhancement in segment Esteban and IVb of the liver consistent with likely respons e to treatment of a biopsy revealed hepatocellular carcinoma this region. 2. Mild splenomegaly and splenorenal collaterals including a prominent varix wi thin the gastric wall consistent with secondary portal venous hypertension. 3. Likely cystitis with urothelial enhancement at the bilateral renal pelvises consistent with associated ascending urinary tract infections without associate d pyelonephritis. 4. Cholelithiasis.
--- OUTSIDE RECORDS SUMMARY | 2024-04-03 10:32 | XMS_ITS | Encounter Summary ---
Author Organization [facility] Health Address [address] [place] [address] Care Team Providers Care Small Arms Repairer Name Role Phone Shay Hooper MD Primary Care Provider Encounter Details Date Type Department Care Team (Late Contact Info) Description 08/01/2018 [facility] Outpatient Visit [facility] [address] [place] [address] [place] [phone] [address] Social History Tobacco Use Types Packs/Day Years Used Date Smoking Tobacco: Every Day Cigarettes Smokeless Tobacco: Never Alcohol Use Standard Drinks/Week Comments Yes 0 (1 standard drink = 0.6 oz pur e alcohol) RARE Sex and Gender Information Value Date Recorded Sex Assigned at Not on file Gender Identity Not on file Sexual Orientation Not on file documented as of this encounter Plan of Treatment Upcoming Encounters Date Type Department Care Team (Late Contact Info) Description 05/08/2024 11:30 AM CDT Office Visit [facility] [address] [facility] [place] [address] Phyllis Pereira, LIFE AGENT-SPONSORSHIP MANAGER [address] [place] [address] [id number] [place] [address] documented as of this encounter Visit Diagnoses Not on filedocumented in this encounter Care Teams Small Arms Repairer Relationship Specialty Start Date End Date Shay Hooper MD [address] [facility] [address] [place] [id number] PCP - General Internal Medicine 11/14/17 documented as of this encounter
--- OUTSIDE RECORDS SUMMARY | 2024-04-03 10:32 | XMS_ITS | Encounter Summary ---
Author Organization [facility] Health Address [address] [facility] [place] [address] Care Team Providers Care Civil Cad Designer Name Role Phone Shay Hooper MD Primary Care Provider Encounter Details Date Type Department Care Team (Late st Contact Info) Description 08/01/2018 [facility] Outpatient Visit [facility] [address] [place] [address] Edwin Horner MD [address] [place] [phone] Social History Tobacco Use Types Packs/Day Years [...] Encounters Date Type Department Care Team (Late st Contact Info) Description 05/08/2024 11:30 AM CDT Office Visit [facility] [address] [facility] [place] [address] Phyllis Pereira, MUSIC HISTORIAN-DIRECTOR [employer] [address] [place] [address] [facility] [place] [address] documented as of this encounter Visit Diagnoses Not on filedocumented in this encounter Care Teams Civil Cad Designer Relationship Specialty Start Date End Date Shay Hooper MD [address] [phone] PCP - General Internal Medicine 11/14/17 documented as of this encounter
--- OUTSIDE RECORDS SUMMARY | 2024-04-03 10:32 | XMS_ITS | Patient Health Summary ---
Author Organization [facility] Address [address] [place] [address] Care Team Providers Care Flour Mixer Name Role Phone Shay Hooper MD Primary Care Provider Note from [facility],non-owned Affiliates and Associated Physician Practices is amultiple site organization consisting of ambulatory clinics and hospital sitesin [place], [place]. This disclosure is being madepursuant to the Care Everywhere program and may not contain all information available regarding this patient. Last updated 17.[facility] Allergies * Codeine(Nausea and/or Vomiting) -Low Criticality * Penicillamine(Rash) -Medium Criticality * Torsemide(Rash) -Medium Criticality Medications * Be aware that medications may not be up to date on this document. Alwaysverify current medications with the patient. * pantoprazole EC (PROTONIX) 40 MG tablet Take 1 (one) tablet by mouth once daily * zolpidem (AMBIEN) 10 MG tablet Take 1 (one) tablet by mouth at bedtime * aspirin (Aspirin) 81 MG chew tablet Take 1 (one) tablet by mouth once daily * insulin degludec (TRESIBA) 100 UNIT/ML pen Inject 50 (fifty) Units subcutaneously at bedtime * pregabalin (LYRICA) 50 MG capsule Take 1 (one) capsule by mouth 3 times daily * Acetaminophen (TYLENOL) 325 MG CAPS Take 325 mg by mouth 2 times daily * insulin aspart, w/Niacinamide, (FIASP FLEXTOUCH) pen 20 (twenty) Units 3 times daily with meals SS * nadolol (Corgard) 40 MG tablet Take 1 (one) tablet by mouth once daily * atorvastatin (Lipitor) 20 MG tablet Take 1 (one) tablet by mouth at bedtime * amLODIPine (Norvasc) 5 MG tablet(Started 05/30/2022) every 24 hours * albuterol HFA (Proventil; Ventolin; Proair) 108 (90 Base) MCG/ACT inhaler every 4 hours * warfarin (Coumadin) 5 MG tablet(Started 07/02/2023) Take 1 (one) tablet by mouth once daily Active Problems Problem Noted Date Diagnosed Date Symptomatic stenosis of righ t carotid artery without infarction 08/07/2018 Alcoholic cirrhosis of liver 11/14/2017 Social History Tobacco Use Types Packs/Day Years Used Date Smoking Tobacco: Every Day Cigarettes Smokeless Tobacco: Never Tobacco Cessation:Ready to Q uit: Not Asked; Counseling Given: Not Answered Alcohol Use Standard Drinks/Week Comments Yes 0 (1 standard drink = 0.6 oz pur e alcohol) ocassional beer/ nahid Sex and Gender Information Value Date Recorded Sex Assigned at Not on file Gender Identity Not on file Sexual Orientation Not on file Last Filed Vital Signs Vital Sign Reading Time Taken Comments Blood Pressure 109/58 07/17/2023 1:11 PM CDT Pulse 63 07/17/2023 1:11 PM CDT Temperature 36.7 C (98 F) 07/10/2022 11:07 AM CDT Respiratory Rate 18 07/10/2022 11:07 AM CDT Oxygen Saturation 100% 07/17/2023 1:11 PM CDT Inhaled Oxygen Concentration - - Weight 91.6 kg (202 lb) 07/17/2023 1:11 PM CDT Height 180.3 cm (5' 11 ) 12/29/2019 10:36 AM EXTENSION AGENT Body Mass Index 28.17 12/29/2019 10:36 AM EXTENSION AGENT Medical Devices Implanted Type Area Needle Punch Machine Operator Device Identifier Shelf Expiration Date Model / Serial / Lot Patch Tien Eptfe 1 X 9 X .5mm - [id number] Implanted:Qty: 1 on 08/07/2018 by Angelo Wu MD at [facility] Right: Carot[employer] 05/30/2023 [id number] / [id number] / Procedures * CBC W DIFF (EXTERNAL RESULT ENTRY)(Performed 04/12/2021) * PT INR (EXTERNAL RESULT ENTRY)(Performed 04/12/2021) * COMP MET PANEL (EXTERNAL RESULT ENTRY)(Performed 04/12/2021) * PT INR (EXTERNAL RESULT ENTRY)(Performed 12/11/2018) * CBC W DIFF (EXTERNAL RESULT ENTRY)(Performed 12/11/2018) * CHEM PROFILE (EXTERNAL RESULT ENTRY)(Performed 12/11/2018) * PATHOLOGY TISSUE(Performed 10/22/2018) Performed for Illness * APHERESIS/TRANSFUSION ORDER(Performed 08/14/2018) * CARDIAC RHYTHM STRIP ORDER(Performed 08/12/2018) * GLUCOSE - POINT OF CARE(Performed 08/08/2018) * ENDOTRACHEAL TUBE NOTE(Performed 08/08/2018) * GLUCOSE - POINT OF CARE(Performed 08/07/2018) * GLUCOSE - POINT OF CARE(Performed 08/07/2018) * GLUCOSE - POINT OF CARE(Performed 08/07/2018) * GROSS EXAM PATHOLOGY (STL)(Performed 08/07/2018) Performed for Diagnosis unknown * ARTERIAL LINE NOTE(Performed 08/07/2018) * ENDARTERECTOMY CAROTID (CEA)(Performed 08/07/2018) * BLOOD TYPE VERIFICATION(Performed 08/07/2018) * EKG 12-LEAD(Performed 08/07/2018) Performed for Preop examination * TYPE + SCREEN PANEL(Performed 08/07/2018) Performed for Preop examination * COMPREHENSIVE METABOLIC PANEL(Performed 08/07/2018) Performed for Preop examination * PTT(Performed 08/07/2018) Performed for Preop examination * PT-INR(Performed 08/07/2018) Performed for Preop examination * CBC W/O DIFFERENTIAL(Performed 08/07/2018) Performed for Preop examination * VASCULAR LAB ORDER(Performed 07/24/2018) * TSH (EXTERNAL RESULT ENTRY)(Performed 05/09/2018) * LIPID PROFILE (EXTERAL RESULT ENTRY)(Performed 05/09/2018) * COMP MET PANEL (EXTERNAL RESULT ENTRY)(Performed 05/09/2018) * PT INR (EXTERNAL RESULT ENTRY)(Performed 05/09/2018) * CBC W DIFF (EXTERNAL RESULT ENTRY)(Performed 05/09/2018) * CREATININE RAND UR (EXTERNAL RESULT ENTRY)(Performed 05/09/2018) * MICROALB/CREAT RATIO URINE (EXTERNAL RESULT ENTRY)(Performed 05/09/2018) * T4 FREE (EXTERNAL RESULT ENTRY)(Performed 05/09/2018) * HEMOGLOBIN A1C (EXTERNAL RESULT ENTRY)(Performed 05/09/2018) * CREATININE RAND UR (EXTERNAL RESULT ENTRY)(Performed 02/14/2018) * MICROALB/CREAT RATIO URINE (EXTERNAL RESULT ENTRY)(Performed 02/14/2018) * HEMOGLOBIN A1C (EXTERNAL RESULT ENTRY)(Performed 02/14/2018) * CBC W DIFF (EXTERNAL RESULT ENTRY)(Performed 02/14/2018) * COMP MET PANEL (EXTERNAL RESULT ENTRY)(Performed 02/14/2018) * LIPID PROFILE (EXTERAL RESULT ENTRY)(Performed 02/14/2018) * [id number] BLOOD PHENOTYPING PANEL(Performed 12/09/2013) * SILVER BLOOD SCREEN W/REFLEX TITER(Performed 12/09/2013) * MITOCHONDRIAL ANTIBODY SCREEN(Performed 12/09/2013) * CERULOPLASMIN(Performed 12/09/2013) * IRON BLOOD(Performed 12/09/2013) * TRANSFERRIN(Performed 12/09/2013) * FROZEN SECTION(Performed 01/04/2005) Results * CBC W DIFF (EXTERNAL RESULT ENTRY) (04/12/2021) Only the most recent of4 resultswithin the time period is included. WBC (EXTERNAL RESULT) 5.5 10^3/ul Hemoglobin (EXTERNAL RESULT) 14.0 g/dl Hematocrit (EXTERNAL RESULT) 41.2 l % Platelets (EXTERNAL RESULT) 126 l 10^3/ul Neutrophil Absolute (EXTERNAL RESULT) 3.6 10^3/ul Blood BLOOD SPECIMEN / Unknown 04/12/2021 Historical Provider LAB - HEMATOLOGY ORDERABLES * PT INR (EXTERNAL RESULT ENTRY) (04/12/2021) Only the most recent of3 resultswithin the time period is included. PT (EXTERNAL) 14.2 sec INR (EXTERNAL RESULT) 1.1 Blood BLOOD SPECIMEN / Unknown 04/12/2021 Historical Provider LAB - CHEMISTRY O RDERABLES * COMP MET PANEL (EXTERNAL RESULT ENTRY) (04/12/2021) Only the most recent of3 resultswithin the time period is included. Glucose (EXTERNAL) 145 mg/dL Sodium (EXTERNAL RESULT) 138 mmol/L Potassium (EXTERNAL RESULT) 4.9 mmol/L Chloride (EXTERNAL RESULT) 104 mmol/L CO2 (EXTERNAL) 27 mmol/L Calcium (EXTERNAL RESULT) 9.3 mg/dL Anion Gap (EXTERNAL RESULT) 7 mmol/L BUN (EXTERNAL RESULT) 27 mg/dL Creatinine (EXTERNAL RESULT) 1.40 mg/dl Alkaline Phosphatase (EXTERNAL RESULT) 61 U/L ALT (EXTERNAL RESULT) 40 U/L AST (EXTERNAL RESULT) 42 U/L Protein Total (EXTERNAL RESULT) 8.0 gm/dL Albumin (EXTERNAL RESULT) 4.3 gm/dL Bilirubin Total (EXTERNAL RESULT) 0.7 mg/dL eGFR MDRD (EXTERNAL RESULT) eGFR (EXTERNAL) Blood BLOOD SPECIMEN / Unknown 04/12/2021 Historical Provider LAB - CHEMISTRY O RDERABLES * (ABNORMAL) CHEM PROFILE (EXTERNAL RESULT ENTRY) (12/11/2018 10:48 AM CDT) Glucose (EXTERNAL RESULT) 87 75 - 110 mg/dl BUN (EXTERNAL RESULT) 21(A) 9 - 20 mg/dl Creatinine (EXTERNAL RESULT) 1.50(A) 0.7 - 1.3 mg/dl Sodium (EXTERNAL RESULT) 139 137 - 145 mmol/L Potassium (EXTERNAL RESULT) 4.3 3.4 - 5.0 mmol/L Chloride (EXTERNAL RESULT) 102 98 - 107 mmol/L Carbon Dioxide (EXTERNAL RESULT) 27 22 - 30 mmol/L Calcium (EXTERNAL RESULT) 9.3 8.4 - 10.2 mg/dl Phosphorus (EXTERNAL RESULT) Total Protein (EXTERNAL RESULT) 7.0 6.3 - 8.2 g/dl Albumin (EXTERNAL RESULT) 4.2 3.5 - 5.1 g/dl Alkaline Phosphatase (EXTERNAL RESULT) 71 38 - 126 U/L ALT (EXTERNAL RESULT) 27 21 - 72 units/L AST (EXTERNAL RESULT) 26 17 - 59 units/L Bilirubin Total (EXTERNAL RESULT) 0.5 0.2 - 1.3 mg/dl Bilirubin Direct (EXTERNAL RESULT) Bilirubin Indirect (EXTERNAL RESULT) Magnesium (EXTERNAL RESULT) eGFR MDRD (EXTERNAL RESULT) 47 >60 Blood BLOOD SPECIMEN / Unknown 12/11/2018 10:48 AM CDT Historical Provider LAB - CHEMISTRY O RDERABLES * PATHOLOGY TISSUE (10/22/2018 3:19 PM CDT) Case Report Surgical Pathology Report Case: [id number] Authorizing Provider: Luna Hernandez MD Collected: 10/22/2018 03:19 PM Ordering Location: [facility] Pathology Lab Received: 10/23/2018 03:19 PM Pathologist: Floyd Rodriguez MD Specimen: Slide Consultation, [id number] 10/24/2018 10:17 AM CDT [facility] Final Diagnosis Urine, voided, thin prep, cytology: -Negative for high-grade urothelial neoplasia -Slight chronic inflammtion 10/24/2018 10:17 AM T [facility] Microscopic Description and Comment Performed. 10/24/2018 10:17 AM CDT [facility] Clinical History History of bladder cancer, cystoscopy negative. 10/24/2018 10:17 AM CDT [facility] Gross Description Prepared slides received from [facility] labeled [id number]. All material will be returned. 10/24/2018 10:17 AM CDT [facility] Disclaimer The performance characteristics of all immunohistochemical and indirect immunofluorescence stains (if any) cited in this report were determined by the Histopathology Laboratory of [facility]. Some of these tests were developed by our own laboratory and have not been cleared or approved by the US Food and Drug Administration. The FDA does not require this test to go through premarket FDA review. These tests are used for clinical purposes. They should not be regarded as investigational or for research. This laboratory is certified under the Clinical Laboratory Improvement Amendments (CLIA) as qualified to perform high complexity clinical laboratory testing. This case has been personally reviewed and interpreted by the attending (teaching) pathologist. 10/24/2018 10:17 AM CDT [facility] Embedded Images 10/24/2018 10:17 AM CDT [facility] Pathology/Cytolo gy SURGICAL PATHOLOGY CONSULTATION AND REPORT ON REFERRED SLIDES PREPARED ELSEWHERE / Unknown 10/22/2018 3:19 PM CDT 10/23/2018 3:19 PM CDT Luna Hernandez MD LAB - PATHOLOGY/CYTO LOGY ORDERABLES Performing Organization Address [facility]/ZIP Co de Phone Number [facility] [address] [phone] * APHERESIS/TRANSFUSION ORDER (08/14/2018 8:32 PM CDT) Narrative 08/14/2018 8:32 PM CDT Ordered by an unspecified provider. Scanned Document NURSING - VITAL SIGN S AND ASSESSMENT * CARDIAC RHYTHM STRIP ORDER (08/12/2018 9:25 PM CDT) Narrative 08/12/2018 9:25 PM CDT Ordered by an unspecified provider. Scanned Document CARDIAC SERVICES ORD ERABLES * (ABNORMAL) GLUCOSE - POINT OF CARE (08/08/2018 7:16 AM CDT) Only the most recent of4 resultswithin the time period is included. Glucose WB/POC 265(H) 70 - 106 mg/dL 08/08/2018 8:34 AM CDT [facility] Specimen Type Venous 08/08/2018 8:34 AM CDT [facility] Blood BLOOD SPECIMEN / Unknown 08/08/2018 7:16 AM CDT 08/08/2018 8:34 AM CDT Narrative [facility] - 08/08/2018 8:34 AM CDT (2) Provider Notified Angelo Wu MD LAB - POINT OF CARE ORDERABLES Performing Organization Address City/[facility]/ZIP Co de Phone Number [facility] [address] [place] [address] * ENDOTRACHEAL TUBE NOTE (08/08/2018 6:03 AM CDT) Narrative Shaun Cook MD - 08/08/2018 6:03 AM CDT Louise Turcios APRN-CHEMICAL INSPECTOR 08/07/2018 2:47 PM Endotracheal Tube Placement: Patient Location: OR. Intubation Event Date/Time: 08/07/2018 2:03 PM Procedure: intubation (12402). Procedure Section: Sedation: under general anesthesia. Indications for Airway Management: anesthesia Pretreatment: 100% O2 and LTA. Induction: standard IV Patient Position: sniffing and supine Mask Ventilation: easy. Blade Type: Robert Blade Size: 4 Laryngoscopy View: grade 1 (full cords) Intubation Adjuncts: stylet Device: endotracheal tube Placement: oral Tube type: cuff - inflated Tube Size (MM): 8 Depth of Insertion (CM): 22 Measured From: lips Cuff volume (mL): 10 Cuff Inflated With: air Number of Attempts: 1. Placement Verified By: direct visualization, bilateral breath sounds, chest auscultation and CO2 monitor Tube secured with: adhesive tape. Difficult Airway? No. Procedure Start Time: 08/07/2018 2:03 PM. Staff Section Anesthesia Provider: LOUISE TURCIOS Performed the procedure Additional Comments: Intubation performed by SRNA. Leslie Shaun Cook MD GENERAL ANESTHESIA O RDERABLES * GROSS EXAM PATHOLOGY (STL) (08/07/2018 3:11 PM CDT) Case Report Surgical Pathology Report Case: [id number] Authorizing Provider: Angelo Wu MD Collected: 08/07/2018 03:11 PM Ordering Location: [facility] Received: 08/07/2018 03:43 PM Pathologist: Pham Perry MD Specimen: Plaque, right carotid plaque 08/09/2018 1:14 PM CDT [facility] Final Diagnosis Right carotid plaque, endarterectomy: -- Calcified atherosclerotic plaque 08/09/2018 1:14 PM CDT [facility] Gross Description The specimen is received in a formalin-filled container labeled with the patient's name Daniel Treviño and right carotid plaque, and consists of an irregular, unoriented fragment of rubbery yeh tissue (5.2 x 2.2 x 0.2 cm), with scattered rough, hard areas. Hand Reamer sections are submitted in cassette A1 following decalcification. /eh 08/09/2018 1:14 PM CDT [facility] Embedded Images 08/09/2018 1:14 PM CDT [facility] Pathology/Cytolo gy PLAQUE / Unknown 08/07/2018 3:11 PM CDT 08/07/2018 3:43 PM CDT Angelo Wu MD LAB - PATHOLOGY/CYTO LOGY ORDERABLES Performing Organization Address [facility] Co de Phone Number [facility] [address] [place] [address] * BLOOD TYPE VERIFICATION (08/07/2018 11:04 AM CDT) ABO A 08/07/2018 11:45 AM CDT [facility] Rh Type Positive 08/07/2018 11:45 AM CDT [facility] Blood Bank BLOOD SPECIMEN / Unknown Venipuncture / Unknown 08/07/2018 11:04 AM CDT 08/07/2018 11:09 AM CDT Angelo Wu MD LAB - BLOOD BANK ORD ERABLES Performing Organization Address [facility] Co de Phone Number [facility] [address] [place] [address], [facility] * EKG 12-LEAD (08/07/2018 10:53 AM CDT) Ventricular Rate 63 BPM [facility] Atrial Rate 63 BPM [facility] P-R Interval 204 ms [facility] QRS Duration ms 92 ms [facility] Q-T Interval ms 412 ms [facility] QTC Calculation (Bezet) 421 ms [facility] Calculated P [place] 6 degrees [facility] Calculated R [place] 25 degrees [facility] Calculated T [place] 54 degrees [facility] Interpretation EKG Normal sinus rhythm Early repolarization Confirmed by LINDA PATHAK, ROCKY ([id number]) on 08/07/2018 3:15:59 PM DP MUSE 08/07/2018 10:5 3 AM CDT 08/07/2018 3:15 PM CDT Ny Coleman DO ECG ORDERABLES Performing Organization Address City/[facility]/ZIP Co de Phone Number [facility] * TYPE + SCREEN PANEL (08/07/2018 10:47 AM CDT) ABO A 08/07/2018 11:45 AM CDT [facility] Rh Type Positive 08/07/2018 11:45 AM CDT [facility] Comment:History checked. Col lect retype. Antibody Screen Negative 08/07/2018 11:45 AM CDT [facility] Blood Bank BLOOD SPECIMEN / Unknown Venipuncture / Unknown 08/07/2018 10:47 AM CDT 08/07/2018 10:53 AM CDT Ny Coleman DO LAB - BLOOD BANK ORD ERABLES Performing Organization Address [facility] Co de Phone Number [facility] [address] * (ABNORMAL) PTT (08/07/2018 10:47 AM CDT) PTT <21.0(L) 21.0 - 32.0 sec 08/07/2018 11:26 AM CDT [facility] Blood BLOOD SPECIMEN / Unknown Venipuncture / Unknown 08/07/2018 10:47 AM CDT 08/07/2018 10:54 AM CDT Narrative [facility] - 08/07/2018 11:26 AM CDT Specimen is slightly to moderately hemolyzed which may affect results. Specimen recollection is recommended. Heparin Therapeutic Range for PTT: 50.5 - 74.3 seconds. Ny Coleman DO LAB - COAGULATION OR DERABLES Performing Organization Address City/[facility]/ZIP Co de Phone Number [facility] [address] [place] [address] * PT-INR (08/07/2018 10:47 AM CDT) PT 10.0 9.5 - 11.6 sec 08/07/2018 11:08 AM CDT [facility] INR 0.9 0.9 - 1.1 08/07/2018 11:08 AM CDT [facility] Blood BLOOD SPECIMEN / Unknown Venipuncture / Unknown 08/07/2018 10:47 AM CDT 08/07/2018 10:54 AM CDT Narrative [facility] - 08/07/2018 11:08 AM CDT Specimen is slightly to moderately hemolyzed which may affect results. Specimen recollection is recommended. Conventional Warfarin Anticoagulant Therapy: INR Reference Range: 2.0-3.0 Intensive Warfarin Anticoagulant Therapy: INR Reference Range: 2.5-3.5 Ny Coleman DO LAB - COAGULATION OR DERABLES [facility] [address] [place] [address] * CBC W/O DIFFERENTIAL (08/07/2018 10:47 AM CDT) WBC 6.6 4.4 - 10.7 x10E9/L 08/07/2018 11:08 AM CDT [facility] RBC 4.56 3.80 - 5.40 x10E12/L 08/07/2018 11:08 AM CDT [facility] Hemoglobin 13.6 12.0 - 17.6 gm/dL 08/07/2018 11:08 AM CDT [facility] Hematocrit 41.3 35.2 - 51.7 % 08/07/2018 11:08 AM CDT [facility] MCV 90.6 80.7 - 98.3 fl 08/07/2018 11:08 AM CDT [facility] MCH 29.8 26.7 - 34.0 pg 08/07/2018 11:08 AM CDT [facility] MCHC 32.9 30.8 - 35.9 gm/dL 08/07/2018 11:08 AM CDT [facility] Platelet Count 156 153 - 416 x10E9/L 08/07/2018 11:08 AM CDT [facility] RDW-CV 13.2 12.1 - 14.9 % 08/07/2018 11:08 AM CDT [facility] MPV 9.6 9.4 - 12.9 fl 08/07/2018 11:08 AM CDT [facility] Blood BLOOD SPECIMEN / Unknown Venipuncture / Unknown 08/07/2018 10:47 AM CDT 08/07/2018 10:54 AM CDT Ny Coleman DO LAB - HEMATOLOGY ORD ERABLES [facility] [address] [place] [address] * (ABNORMAL) COMPREHENSIVE METABOLIC PANEL (08/07/2018 10:47 AM CDT) Glucose 117(H) 74 - 106 mg/dL 08/07/2018 11:14 AM CDT [facility] Sodium 140 136 - 145 mmol/L 08/07/2018 11:14 AM CDT [facility] Potassium 4.0 3.5 - 5.1 mmol/L 08/07/2018 11:14 AM CDT [facility] Chloride 107 98 - 107 mmol/L 08/07/2018 11:14 AM CDT [facility] CO2 25 23 - 31 mmol/L 08/07/2018 11:14 AM CDT [facility] Calcium 9.4 8.4 - 10.2 mg/dL 08/07/2018 11:14 AM CDT [facility] Anion Gap 8 8 - 16 mmol/L 08/07/2018 11:14 AM CDT [facility] BUN 20 8.4 - 25.7 mg/dL 08/07/2018 11:14 AM CDT [facility] Creatinine 1.23(H) 0.73 - 1.18 mg/dL 08/07/2018 11:14 AM CDT [facility] Alkaline Phosphatase 85 40 - 150 U/L 08/07/2018 11:14 AM CDT [facility] ALT 14 13 - 61 U/L 08/07/2018 11:14 AM CDT [facility] AST 16 5 - 34 U/L 08/07/2018 11:14 AM CDT [facility] Protein Total 7.7 6.4 - 8.3 gm/dL 08/07/2018 11:14 AM CDT [facility] Albumin 4.3 3.2 - 4.6 gm/dL 08/07/2018 11:14 AM CDT [facility] Bilirubin Total 0.7 0.2 - 1.2 mg/dL 08/07/2018 11:14 AM CDT [facility] eGFR by MDRD 59(L) >60 mL/min/1.7 3m2 08/07/2018 11:14 AM CDT [facility] eGFR by MDRD >60 >60 mL/min/1.7 3m2 08/07/2018 11:14 AM CDT [facility] Blood BLOOD SPECIMEN / Unknown Venipuncture / Unknown 08/07/2018 10:47 AM CDT 08/07/2018 10:54 AM CDT Narrative [facility] - 08/07/2018 11:14 AM CDT Attention clinician: BUN Reference Range has changed. Ny Coleman DO LAB - CHEMISTRY WENDY MCKEON [facility] [address] [place] [address] * VASCULAR LAB ORDER (07/24/2018) Anatomical Region Laterality Modality Other Angelo Wu MD VASCULAR LAB ORDERAB LES * CREATININE RAND UR (EXTERNAL RESULT ENTRY) (05/09/2018) Only the most recent of2 resultswithin the time period is included. Creatinine Random Urine (EXTERNAL RESULT) 163.6 mg/dl Urine URINE / Unknown 05/09/2018 Historical Provider LAB - CHEMISTRY O RDERABLES * (ABNORMAL) LIPID PROFILE (EXTERAL RESULT ENTRY) (05/09/2018) Only the most recent of2 resultswithin the time period is included. Cholesterol (EXTERNAL RESULT) 90 0 - 200 mg/dL Triglycerides (EXTERNAL RESULT) 57 0 - 150 mg/dL HDL (EXTERNAL RESULT) 28(A) >35 mg/dL LDL (EXTERNAL RESULT) 56 0 - 130 mg/dL VLDL (EXTERNAL RESULT) mg/dL Chol HDL Ratio (External Result) Blood BLOOD SPECIMEN / Unknown 05/09/2018 Historical Provider LAB - CHEMISTRY O RDERABLES * TSH (EXTERNAL RESULT ENTRY) (05/09/2018) TSH (EXTERNAL RESULT) 1.120 0.465 - 4.680 uIU/mL Blood BLOOD SPECIMEN / Unknown 05/09/2018 Historical Provider LAB - CHEMISTRY O RDERABLES * T4 FREE (EXTERNAL RESULT ENTRY) (05/09/2018) Pathologist [facility] T4 Free (EXTERNAL RESULT) 1.51 0.78 - 2.19 ng/dl Blood BLOOD SPECIMEN / Unknown 05/09/2018 Historical Provider LAB - CHEMISTRY O RDERABLES * MICROALB/CREAT RATIO URINE (EXTERNAL RESULT ENTRY) (05/09/2018) Only the most recent of2 resultswithin the time period is included. Pathologist [facility] Microalb/Creat Ratio (EXTERNAL RESULT) 20.2 0.0 - 30.0 mg/g Urine URINE / Unknown 05/09/2018 Historical Provider LAB - URINE CHEMI STRY ORDERABLES * (ABNORMAL) HEMOGLOBIN A1C (EXTERNAL RESULT ENTRY) (05/09/2018) Only the most recent of2 resultswithin the time period is included. Pathologist [facility] Hemoglobin A1c (EXTERNAL RESULT) 7.4(A) 0.0 - 5.7 % Blood BLOOD SPECIMEN / Unknown 05/09/2018 Historical Provider LAB - CHEMISTRY O RDERABLES * MITOCHONDRIAL ANTIBODY SCREEN (12/09/2013 1:21 PM CDT) Pathologist [facility] Mitochondrial M2 Antibody 3.8 0.0 - 20.0 Units [facility] Comment: Mitochondrial M2 Antibody Numeric Result Interpretation: <20.1 Units: Negative 20.1 - 24.9 Units: Equivocal >24.9 Units: Positive Blood specimen (specimen) BLOOD SPECIMEN / Unknown 12/09/2013 1:21 PM CDT 12/09/2013 2:11 PM CDT Yon Carolina MD LAB - CHEMISTRY ORDERABLES [facility] [address] [phone] * (ABNORMAL) [id number]-3-[id number] BLOOD PHENOTYPING PANEL (12/09/2013 1:21 PM CDT) Nhrvr-8-Xpifhhxeob n 215(H) 90 - 200 mg/dL [facility] (BEAKER) Phenotype (PI) MM [facility] (BEAKER) Comment: Phenotype Population A-1-AT Concentration* Incidence % % of MM Ref. Range Mean MM 86.5% 100% (90-200) 145 MS 8.0% 81% (73-162) 118 MZ 3.9% 60% (54-120) 87 FM 0.4% 97% (87-194) 141 SZ 0.3% 39% (35- 78) 57 SS 0.1% 71% (64-142) 103 ZZ 0.05% 7% ( 6- 14) 10 FS 0.05% 66% (59-132) 96 FZ Unknown Unknown FF Unknown Unknown *A-1-AT concentration in the homozygous MM phenotype is taken as the reference normal. Deficiency in phenotypes is reported relative to this reference. Blood specimen (specimen) BLOOD SPECIMEN / Unknown 12/09/2013 1:21 PM CDT 12/09/2013 2:11 PM CDT Narrative [facility] (BEAKER) - 12/12/2013 5:13 PM CDT Performed at: - [address] [id number] Licensed Appraiser: Serge Collins PhD, Phone: [phone] Performed at: [address] [id number] Licensed Appraiser: Pilo Selby MD, Phone: [phone] Yon Carolina MD LAB - CHEMISTRY ORDERABLES [facility] ([facility]) * SILVER BLOOD SCREEN W/REFLEX TITER (12/09/2013 1:21 PM CDT) SILVER IFA Negative [facility] ([facility]) Comment: Negative <1:80 Borderline 1:80 Positive >1:80 Blood specimen (specimen) BLOOD SPECIMEN / Unknown 12/09/2013 1:21 PM CDT 12/09/2013 2:11 PM CDT Narrative [facility] ([facility]) - 12/11/2013 5:14 PM CDT Performed at: - [address] [id number] Licensed Appraiser: Serge Collins PhD, Phone: [phone] Yon Carolina MD LAB - CHEMISTRY ORDERABLES Performing Organization Address [facility] Co de Phone Number [facility]) * TRANSFERRIN (12/09/2013 1:21 PM CDT) Transferrin 304 174 - 382 mg/dL [facility] Transferrin Saturation % 21 16 - 50 % [facility] Blood specimen (specimen) BLOOD SPECIMEN / Unknown 12/09/2013 1:21 PM CDT 12/09/2013 2:12 PM CDT Yon Carolina MD LAB - CHEMISTRY ORDERABLES Performing Organization Address City/[facility]/ZIP Co de Phone Number [address] [phone] * CERULOPLASMIN (12/09/2013 1:21 PM CDT) Ceruloplasmin 22 20 - 60 mg/dL [facility] Blood specimen (specimen) BLOOD SPECIMEN / Unknown 12/09/2013 1:21 PM CDT 12/09/2013 2:12 PM CDT Yon Carolina MD LAB - CHEMISTRY ORDERABLES [facility] [address] [place] [address], [facility] [phone] * IRON BLOOD (12/09/2013 1:21 PM CDT) Iron 79 50 - 175 mcg/dL [facility] Blood specimen (specimen) BLOOD SPECIMEN / Unknown 12/09/2013 1:21 PM CDT 12/09/2013 2:12 PM CDT Yno Carolina MD LAB - CHEMISTRY ORDERABLES [facility] [address] [place] [address], [facility] [phone] * FROZEN SECTION (01/04/2005 5:45 PM EXTENSION AGENT) Result CASE NUMBER [id number] Comment: ORDERING PHYSICIAN YON PERRIN SPECIMEN TYPE Brain Mass-posterior tossa brain Date 01/05/2005 Physician orestes Perrin Gross Description 1. The specimen is received in a fresh labeled with the patient's name, Daniel Treviño, and posterior fossa tumor. The specimen is composed of multiple soft white to yeh hemorrhagic tissue, consistent with brain. It measures 2 x 1 x 0.5 cm. in aggregate. A associate sales representative section is submitted for frozen section as FSA. The rest of the tissue is submitted in cassettes B and C. /bk 2. The specimen is received in a formalin filled container labeled with the patient's name and posterior fossa tumor . It consists of multiple pieces of brown tissue interspersed with pale yeh soft brain parenchyma measuring in aggregate 2.2 x 2 x 0.6 cm., submitted entirely in cassette D. [facility] Microscopic Exam Permanent sections confirm the frozen section diagnoses. 1,2. Sections show cerebellum cortical tissue that shows disctinct layers of cerebellar neuronal cells. Some fragments are relatively normal, while others show necrosis with eosinophilic necrotic brain with ghost cells. Large purkinji cells also show smudged chromatin with eosinophilic cytoplasm. Scattered acute inflammatory cells are seen in the necrotic tissue. Hemorrhage is also noted. Focally a few small prominent vessels are seen. No evidence of malignancy is seen. The necrosis is consistent with clinical impression of stoke. Case discussed with Dr. Perrin. MC/bk Diagnosis FROZEN SECTION DIAGNOSIS I. Posterior fossa tumor, frozen section diagnosis -- FSA - Necrotic brain tissue, defer for permanents. (). FINAL DIAGNOSIS I. Posterior fossa tumor, biopsy -- Necrotic brain tissue (see microscopic description) -- Negative for malignancy. II. Posterior fossa tumor, biopsy -- Necrotic brain tissue (see microscopic description) -- Negative for malignancy. /bk Pressurised Container Filler bk Pathologist Ivy Ramos M.D. Snomed. 01/06/2005 1200 <1> CPT code 41356, 57766 x2 MISCELLANEOUS SAMPLES / Unknown 01/04/2005 5:45 PM EXTENSION AGENT 01/04/2005 5:45 PM EXTENSION AGENT Historical Provider LAB - PATHOLOGY/C YTOLOGY ORDERABLES Care Teams Flour Mixer Relationship Specialty Start Date End Date Shay Hooper MD [address] [phone] PCP - General Internal Medicine 11/14/17
--- OUTSIDE RECORDS SUMMARY | 2024-04-03 10:32 | XMS_ITS | Encounter Summary ---
Author Organization [facility] Address [address] [facility] [place] [address] Care Team Providers Care Search And Rescue Officer Name Role Phone Shay Hooper MD Primary Care Provider Encounter Details Date Type Department Care Team (Late st Contact Info) Description 10/23/2018 Lab Requisition [facility] Care Pathology Lab [address] [place] [address] Luna Hernandez MD [address] [place] [address] Illness Social History Tobacco Use Types Packs/Day Years Used Date Smoking Tobacco: Every Day Cigarettes Smokeless Tobacco: Never Alcohol Use Standard Drinks/Week Comments Yes 0 (1 standard drink = 0.6 oz pur e alcohol) RARE Sex and Gender Information Value Date Recorded Sex Assigned at Not on file Gender Identity Not on file Sexual Orientation Not on file documented as of this encounter Functional Status Functional Status Response Date of Assess ment Is person deaf or have serious hearing difficult y? No 08/08/2018 Is person blind or have serious difficulty seein g? No 08/08/2018 Does person have serious dif ficulty walking/climbing stairs? No 08/08/2018 Does person have difficulty dressing/bathing? No 08/08/2018 Does person have difficulty doing errands alone? No 08/08/2018 Cognitive Status Response Date of Assessm ent Does person have difficulty concentrating/remembering/making decisions? No 08/08/2018 documented as of this encounter Plan of Treatment Upcoming Encounters Date Type Department Care Team (Late st Contact Info) Description 05/08/2024 11:30 AM CDT Office Visit [facility] - GI [address] [facility], [place] [address] Phyllis Peerira, FUR TINTER-CASE WORKER [address] [facility] [place] [address] documented as of this encounter Procedures Procedure Name Priority Date/Time Associated Diagnosis Comments PATHOLOGY TISSUE Routine 10/22/2018 3:19 PM CDT Illness documented in this encounter Results * PATHOLOGY TISSUE (10/22/2018 3:19 PM CDT) Case Report Surgical Pathology Report Case: [id number] Authorizing Provider: Luna Hernandez MD Collected: 10/22/2018 03:19 PM Ordering Location: [facility] Pathology Lab Received: 10/23/2018 03:19 PM Pathologist: Folyd Rodriguez MD Specimen: Slide Consultation, [id number] 10/24/2018 10:17 AM CDT [facility] PATH[facility]Y [facility] Final Diagnosis Urine, voided, thin prep, cytology: -Negative for high-grade urothelial neoplasia -Slight chronic inflammtion 10/24/2018 10:17 AM T [facility] PATHOLOGY LAB Microscopic Description and Comment Performed. 10/24/2018 10:17 AM CDT [facility] PATHOLOGY LAB Clinical History History of bladder cancer, cystoscopy negative. 10/24/2018 10:17 AM T [facility] PATHOLOGY LAB Gross Description Prepared slides received from [place] [facility] labeled [id number]. All material will be returned. 10/24/2018 10:17 AM CDT [facility] PATHOLOGY LAB Disclaimer The performance characteristics of all immunohistochemical and indirect immunofluorescence stains (if any) cited in this report were determined by the Histopathology Laboratory of [facility]. Some of these tests were developed by [...] attending (teaching) pathologist. 10/24/2018 10:17 AM CDT [facility] PATHOLOGY LAB Embedded Images 10/24/2018 10:17 AM CDT [facility] PATHOLOGY LAB Pathology/Cytolo gy SURGICAL PATHOLOGY CONSULTATION AND REPORT ON REFERRED SLIDES PREPARED ELSEWHERE / Unknown 10/22/2018 3:19 PM CDT 10/23/2018 3:19 PM CDT Luna Hernandez MD LAB - PATHOLOGY/CYTO LOGY ORDERABLES Performing Organization Address City/State/[facility] Co de Phone Number [facility] PATHOLOGY LAB [address] [phone] documented in this encounter Visit Diagnoses Diagnosis Illness Other unknown and unspecified cause of morbidity or mortality documented in this encounter Care Teams Search And Rescue Officer Relationship Specialty Start Date End Date Shay Hooper MD [address] [phone] PCP - General Internal Medicine 11/14/17 documented as of this encounter
--- OUTSIDE RECORDS SUMMARY | 2024-04-03 10:32 | XMS_ITS | Referral Summary ---
Author Organization [facility] Address [address] [place] [place] [address] Care Team Providers Care Web Producer Name Role Phone Shay Hooper MD Primary Care Provider Source Comments [facility],non-owned Affiliates and Associated Physician Practices is amultiple site organization consisting of ambulatory clinics and hospital sitesin [place] and [place]. This disclosure is being madepursuant to the Care Everywhere program and may not contain all information available regarding this patient. Last updated 17.[facility] Encounters Date Type Department Care Team Description 01/14/2024 Travel 01/14/2024 Telephone [facility] - [address] [place] [address] Phyllis Pereira, STRENGTH AND CONDITIONING COACH-TIP PRINTER Appointment from Last 3 Months Allergies Active Allergy Reactions Criticality Noted Date Comments Codeine Nausea and/or Vomiting Low 10/28/2013 Penicillamine Rash Medium 10/28/2013 Torsemide Rash Medium 10/04/2021 Medications * Be aware that medications may not be up to date on this document. Alwaysverify current medications with the patient. Medication Sig Dispensed Refills Start Date End Date Status pantoprazole EC (PROTONIX) 40 MG tablet Take 1 (one) tablet by mouth once daily Active zolpidem (AMBIEN) 10 MG tablet Take 1 (one) tablet by mouth at bedtime Active aspirin (Aspirin) 81 MG chew tablet Take 1 (one) tablet by mouth once daily Active insulin degludec (TRESIBA) 100 UNIT/ML pen Inject 50 (fifty) Units subcutaneously at bedtime Active pregabalin (LYRICA) 50 MG capsule Take 1 (one) capsule by mouth 3 times daily Activ e Acetaminophen (TYLENOL) 325 MG CAPS Take 325 mg by mouth 2 times daily Active insulin aspart, w/Niacinamide, (FIASP FLEXTOUCH) pen 20 (twenty) Units 3 times daily with meals SS Active nadolol (Corgard) 40 MG tablet Take 1 (one) tablet by mouth once daily Active atorvastatin (Lipitor) 20 MG tablet Take 1 (one) tablet by mouth at bedtime Active amLODIPine (Norvasc) 5 MG tablet every 24 hours 05/30/2022 Active albuterol HFA (Proventil; Ventolin; Proair) 108 (90 Base) MCG/ACT inhaler every 4 hours Active warfarin (Coumadin) 5 MG tablet Take 1 (one) tablet by mouth once daily 07/02/2023 Active Active Problems Problem Noted Date Diagnosed Date [...] cm (5' 11 ) 12/29/2019 10:36 AM BOARD CERTIFIED FAMILY PHYSICIAN Body Mass Index 28.17 12/29/2019 10:36 AM BOARD CERTIFIED FAMILY PHYSICIAN Functional Status Functional Status Response Date of [...] person have difficulty concentrating/remembering/making decisions? No 08/08/2018 Plan of Treatment Upcoming Encounters Date Type Department Care Team (Late st Contact Info) Description 05/08/2024 11:30 AM CDT Office Visit [facility] - GI [address] [facility], [place] [address] Phyllis Pereira, STRENGTH AND CONDITIONING COACH-TIP PRINTER [facility] [place] [address] Goals Goal Patient Goal Type Associated Problems Recent Progress Patient-Stated? Author Medication Management General On track( 023 11:14 AM CDT) No Rogelio Coleman, RN Note: Expected end date: Interventions: Take all medications as prescribed Let your doctor know right away about any changes in your medications Make sure to request a refill of your medication at least one week prior to your last dose Medical Devices Implanted Type Area Project Consultant Device Identifier Shelf Expiration Date Model / Serial / Lot Patch Tien Eptfe 1 X 9 X .5mm - [id number] Implanted:Qty: 1 on 08/07/2018 by Angelo Wu MD at [facility] Right: Carotid [employer] 05/30/2023 [id number] / [id number] / Advance Directives * Full Code (Latest Code Status on File) Date Activated Date Inactivated Comments 08/07/2018 5:20 PM 08/08/2018 1:06 PM Care Teams Web Producer Relationship Specialty Start Date End Date Shay Hooper MD [address] [phone] PCP - General Internal Medicine 11/14/17
--- OUTSIDE RECORDS SUMMARY | 2024-04-03 10:32 | XMS_ITS | Clinical Summary ---
Author Organization [facility] [employer] Address [address] [facility] [place] [address] Care Team Providers Care Pipe Buffer Name Role Phone Shay Hooper MD Primary Care Provider Source Comments [facility],non-owned Affiliates and Associated Physician Practices is amultiple site organization consisting of ambulatory clinics and hospital sitesin [place], [place], [place] and [place]. This disclosure is being madepursuant to the Care Everywhere program and may not contain all information available regarding this patient. Last updated 17.[facility] [employer] Allergies Active Allergy Reactions Criticality Noted Date [...] infarction 08/07/2018 Alcoholic cirrhosis of liver 11/14/2017 Encounters Date Type Department Care Team Description 01/14/2024 Travel 01/14/2024 Telephone [facility] - [address] [place] [address], [place] [address] Phyllis Pereira, ARMIN-PULMONOLOGIST/INTENSIVIST Appointment from Last 3 Months Family History Medical History Relation Name Comments CAD (Coronary Artery Disease) Father CVA Father CVA Sister Cancer - Breast Sister Relation Name Status Comments Brother Father Mother Sister Alive Social History Tobacco Use Types Packs/Day Years [...] cm (5' 11 ) 12/29/2019 10:36 AM CLINICAL TRIAL HEAD Body Mass Index 28.17 12/29/2019 10:36 AM CLINICAL TRIAL HEAD Plan of Treatment Upcoming Encounters Date Type Department Care Team (Late st Contact Info) Description 05/08/2024 11:30 AM CDT Office Visit [facility] - GI [address] [facility], [place] [address] Kelli Phyllis N, ENGINEERING EXECUTIVE-PULMONOLOGIST/INTENSIVIST [address] [facility] [address] [place] [address] Health Maintenance Due Date Last Done Comments COLOGUARD (AGES 45-75) - COL ON CA SCREENING 1955 COLON MONITORING 1955 COLONOSCOPY - COLON CA SCREENING 1955 CT COLONOGRAPHY - COLON CA SCREENING 1955 Colorectal Cancer Screening 1955 FIT - COLON CA SCREENING 1955 FLEX SIG - COLON CA SCREENING 1955 HEPATITIS C SCREENING 05/01/1973 DTAP/TDAP/TD VACCINES (1 - Tdap) 05/05/1974 PNEUMOCOCCAL VACCINE 50+ (1 of 2 - PCV) 05/05/1974 ZOSTER VACCINE (1 of 2) 05/05/2005 HEPATITIS B VACCINE (1 of 3 - Risk 3-dose series) 2015 Respiratory Syncytial Virus (RSV) Vaccine Pt: or over 60 yrs (1 - Risk 60-74 years 1-dose series) 2015 AAA SCREENING 05/05/2020 COVID-19 VACCINE (1 - 2023-2 5 season) 2023 INFLUENZA VACCINE (#1) 2023 DEPRESSION SCREENING 02/27/2024 MEDICARE AWV CALENDAR YEAR 2024 HIB VACCINE Aged Out No longer eligi ble based on patient's age to complete this topic HPV VACCINE Aged Out No longer eligi ble based on patient's age to complete this topic MENINGOCOCCAL (Group B) VACCINE Aged Out No longer eligible based on patient's age to complete this topic MENINGOCOCCAL VACCINE Aged Out No christine francisco eligible based on patient's age to complete this topic Goals Goal Patient Goal Type Associated Problems Recent Progress Patient-Stated? Author Medication Management General On track( 023 11:14 AM CDT) No oRgelio Coleman, RN Note: Expected end date: Interventions: Take all medications as prescribed Let your doctor know right away about any changes in your medications Make sure to request a refill of your medication at least one week prior to your last dose Medical Devices Implanted Type Area Bar Examiner Device Identifier Shelf Expiration Date Model / Serial / Lot Patch Tien Eptfe 1 X 9 X .5mm - [id number] Implanted:Qty: 1 on 08/07/2018 by Angelo Wu MD at [facility] Right: Carotid [employer] 05/30/2023 [id number] / Advance Directives * Full Code (Latest Code Status on File) Date Activated Date Inactivated Comments 08/07/2018 5:20 PM 08/08/2018 1:06 PM Care Teams Pipe Buffer Relationship Specialty Start Date End Date Shay Hooper MD [address] [phone] PCP - General Internal Medicine 11/14/17
--- OUTSIDE RECORDS SUMMARY | 2024-04-03 10:33 | XMS_ITS | Encounter Summary ---
Author Organization [facility] Healthcare Address [address] [place] [address] Care Team Providers Care Card Punching Machine Operator Name Role Phone Krish Hooper MD Primary Care Provide r Jorge Jorge DO Unavailable [phone] Rene Harris MD Unavailable Encounter Details Date Type Department Care Team (Late st Contact Info) Description 04/01/2024 Orders Only [facility] Medical Group Cardiology [address] [place] [address] Nimisha Ryan MD [address] [place], [place] [id number] Social History Tobacco Use Types Packs/Day Years Used Date Smoking Tobacco: Every Day Cigarettes Smokeless Tobacco: Never Alcohol Use Standard Drinks/Week Comments Not Currently 0 (1 standard drink = 0.6 oz pur e alcohol) AUDIT-C Answer Date Recorded Q1: How often do you have a drink containing alcohol? Never 02/12/2024 Q2: How many drinks containi ng alcohol do you have on a typical day when you are drinking? Patient does not drink Q3: How often do you have si x or more drinks on one occasion? Never 02/12/2024 Personal Safety Answer Date Recorded Have you ever been in or are you currently in a harmful physical or emotional relationship or is someone making you feel afraid or unsafe? Denies 02/12/2024 Sex and Gender Information Value Date Recorded Sex Assigned at Not on file Legal Sex Male 7:05 PM ATTENDANT SALES Gender Identity Not on file Sexual Orientation Not on file documented as of this encounter Plan of Treatment Not on file documented as of this encounter Procedures Procedure Name Priority Date/Time Associated Diagnosis Comments CARDIOLOGY DOCUMENT SCAN Routine 025 10:46 AM ATTENDANT SALES CARDIOLOGY DOCUMENT SCAN Routine 025 10:43 AM ATTENDANT SALES documented in this encounter Results * Cardiology Document Scan (03/27/2024 10:46 AM ATTENDANT SALES) Anatomical Region Laterality Modality Other us Shawn Vyas MD [facility] C[facility] SERVICES PROCEDURES F inal Result * Cardiology Document Scan (03/26/2024 10:43 AM ATTENDANT SALES) Anatomical Region Laterality Modality Other Nimisha Ryan MD [facility] CARDIAC SERVICES PRO CEDURES Final Result documented in this encounter Visit Diagnoses Not on filedocumented in this encounter Care Teams Card Punching Machine Operator Relationship Specialty Start Date End Date Krish Hooper MD [facility] [address] [address] PCP - General Internal Medicine 12/07/17 Jorge Jorge DO [address] [place] [id number] Medical Oncologist/Operations Controller Hematology and Oncology 12/11/18 Rene Harris MD [address] [place] [address] Consulting Physician Cardiology 02/13/24 documented as of this encounter
--- OUTSIDE RECORDS SUMMARY | 2024-04-03 10:33 | XMS_ITS | Clinical Summary ---
Author Organization [facility] Rika Molina Address [facility] [place] [address] Care Team Providers Care Hoop Bender Tank Name Role Phone Shay Hooper MD Primary Care Provider Allergies Active Allergy Reactions Criticality Noted Date Comments Codeine Nausea and Vomiting Low 10/28/2013 Doxycycline Hives,Rash High 06/11/2018 Penicillamine Other (See Comments),Rash Medium 014 Penicillins Hives,Other (See Comments) High 09/18/19 18 Torsemide Rash,Unknown Medium 08/08/2021 Medications acetaminophen (TylenoL) 325 mg Capsule Take 325 mg by mouth 2 times daily. Active albuterol sulfate HFA 90 mcg/actuation aerosol inhaler Take 2 Puffs by inhalation. Active amLODIPine (NORVASC) 5 mg tablet Take 2.5 mg by mouth daily. 05/31/19 23 Active aspirin (EDWARD CHEWABLE) 81 mg Tablet, Chewable Take 81 mg by mouth daily. Active atorvastatin (LIPITOR) 20 mg tablet Take 20 mg by mouth daily at bedtime. 11/02/19 23 Active pantoprazole (PROTONIX) [address] for susp in Packet 40 mg 2 times daily. Active pregabalin (LYRICA) 50 mg Capsule Take 50 mg by mouth. 06/03/19 22 Active zolpidem (AMBIEN) 10 mg tablet Take 10 mg by mouth. Active lidocaine-prilo dean (EMLA) 2.5-2.5 % Cream Apply to affected area see administration instructions. 30 Gram 1 03/27/19 24 Active Tresiba U-100 Insulin 100 unit/mL Solution INJECT 50 UNITS SUBCUTANEOUSLY AT BEDTIME 03/15/19 24 Active Fiasp U-100 Insulin 100 unit/mL Solution INJECT 20 UNITS SUBCUTANEOUSLY THREE TIMES DAILY BEFORE A MEAL Active fluticasone propion-salmete roL (ADVAIR DISKUS,WIXELA INHUB) 250-50 mcg/dose disk inhaler Take 1 Puff by inhalation 2 times daily. Active methylPREDNISol one (MEDROL DOSPACK) 4 mg Tablets, Dose Pack Use as directed 21 Tablet 05/07/19 24 Active diphenhydrAMINE (BENADRYL) 50 mg capsule Take 1 Capsule (50 mg) by mouth every 6 hours as needed for Allergies. 30 Capsule 05/25/19 24 Active magnesium oxide (MAG-OX) 400 mg (241.3 mg magnesium) tablet Take 1 Tablet by mouth daily. Active HYDROcodone-liyah taminophen (NORCO) 5-325 mg tabletIndicatio ns:Malignant neoplasm of urinary bladder, unspecified site (CMS/HCC) Take 1 Tablet by mouth every 4 hours as needed for Pain, Moderate. Max Daily Amount: 6 Tablets 20 Tablet 08/07/19 24 Active metoclopramide HCl (REGLAN) 10 mg tablet Take 1 tablet every 6 hours as needed for nausea 20 Tablet 08/07/19 24 Active megestroL (MEGACE) 400 mg/10 mL (40 mg/mL) suspension Take 10 mL (400 mg) by mouth daily. 240 mL 1 09/03/19 24 Active ondansetron (ZOFRAN) 8 mg Tablet Take 1 Tablet (8 mg) by mouth every 8 hours as needed for Nausea/Emesis. 30 Tablet 1 09/03/19 24 Active rivaroxaban (Xarelto) 20 mg Tablet Take 1 Tablet (20 mg) by mouth daily. 30 Tablet 4 11/22/19 24 Active hydrOXYzine HCL (ATARAX) 50 mg tablet TAKE 1 TABLET BY MOUTH EVERY 8 HOURS NEEDED FOR ITCHING 60 Tablet 12/31/19 24 Active clopidogreL (PLAVIX) 75 mg Tablet take 1 tablet by mouth in the morning Active isosorbide mononitrate (IMDUR) 60 mg Extended Release 24 hour tablet take 1 tablet by mouth in the morning Active nitroglycerin (NITROSTAT) 0.4 mg Tablet, Sublingual nitroglycerin 0.4 mg tablet, sublingual 01/23/20 24 Active nadoloL (CORGARD) 40 mg tablet Take 40 mg by mouth daily. 03/21/20 24 Active Active Problems No known active problems Encounters Date Type Department Care Team Description 03/25/2024 Orders Only [facility] - [place] [id number] Tommy Cassidy MD 03/24/2024 Telephone [facility] - [place] [address] [place] [id number] Tommy Cassidy MD Breathing Problem 03/24/2024 Orders Only [facility] - [place] [address] [place] [address] Tommy Cassidy MD Hepatocarcinoma (CMS/HCC); Benign hypertension 03/21/2024 Orders Only [facility] - [place] [address] [place] [id number] Tommy Cassidy MD 03/20/2024 Orders Only [facility] - [place] [address] [place] [address] Tommy Cassidy MD Need for hepatitis B screening test (Primary Dx) 03/13/2024 9:00 AM BUILDING CODE INSPECTOR Office Visit [facility] - [place] [address] [place] [address] Tommy Cassidy MD Hepatocarcinoma (CMS/HCC) (Primary Dx) 03/13/2024 Orders Only [facility] - [place] [address] [place] [address] Tommy Cassidy MD 03/10/2024 Orders Only [facility] - [place] [address] [place] [address] Tommy Cassidy MD Hepatocarcinoma (CMS/HCC); Benign hypertension 02/25/2024 Orders Only [facility] - [place] [address] [place] [address] Tommy Cassidy MD Hepatocarcinoma (CMS/HCC); Benign hypertension 02/11/2024 Orders Only [facility] - [place] [address] [place] [address] Tommy Cassidy MD Hepatocarcinoma (CMS/HCC); Benign hypertension 01/28/2024 Orders Only [facility] - [place] [address] [place] [address] Tommy Cassidy MD Hepatocarcinoma ([facility]/HCC); Benign hypertension 01/21/2024 Orders Only [facility] - [place] [address] [place] [address] Tommy Cassidy MD 01/17/2024 8:30 AM BUILDING CODE INSPECTOR Office Visit [facility] [address] [place] [address] Tommy Cassidy MD Hepatocarcinoma ([facility]/HCC) (Primary Dx) 01/14/2024 Orders Only [facility] - [place] [address] [place] [address] Tommy Cassidy MD Hepatocarcinoma (CMS/HCC); Benign hypertension from Last 3 Months Family History Relation Name Status Comments Daughter 1 Alive Daughter 2 Alive Father Mother Sister Alive Social History Tobacco Use Types Packs/Day Years Used Date Smoking Tobacco: Every Day Cigarettes Smokeless Tobacco: Never Tobacco Cessation:Ready to Q uit: Not Asked; Counseling Given: Not Answered Alcohol Use Standard Drinks/Week Comments Not Currently 0 (1 standard drink = 0.6 oz pur e alcohol) quit date 01/10/2023 Sex and Gender Information Value Date Recorded Sex Assigned at Not on file Legal Sex Male 11:41 PM CDT Gender Identity Not on file Sexual Orientation Not on file Last Filed Vital Signs Vital Sign Reading Time Taken Comments Blood Pressure 96/50 03/13/2024 9:28 AM BUILDING CODE INSPECTOR Pulse 63 03/13/2024 9:28 AM BUILDING CODE INSPECTOR Temperature 36.1 C (97 F) 03/13/2024 9:28 AM BUILDING CODE INSPECTOR Respiratory Rate 16 03/13/2024 9:28 AM BUILDING CODE INSPECTOR Oxygen Saturation 97% 03/13/2024 9:28 AM BUILDING CODE INSPECTOR Inhaled Oxygen Concentration - - Weight 83 kg (183 lb) 03/13/2024 9:28 AM BUILDING CODE INSPECTOR Height 180.3 cm (5' 11 ) 04/09/2023 8:51 AM BUILDING CODE INSPECTOR Body Mass Index 25.52 04/09/2023 8:51 AM BUILDING CODE INSPECTOR Plan of Treatment Upcoming Encounters Date Type Department Care Team (Late st Contact Info) Description 04/10/2024 9:15 AM BUILDING CODE INSPECTOR Office Visit [facility] - [place] [address] [facility] [address] [place] [address] Tommy Cassidy MD [address] [facility] [address] [place] [address] Health Maintenance Due Date Last Done Comments DIABETES ANNUAL FOOT EXAM 05/05/1973 DIABETES ANNUAL RETINAL EXAM 05/05/1973 DIABETES MICROALBUMIN ANNUAL SCREEN 05/05/1973 LDL CHOLESTEROL ANNUAL 05/05/1973 PNEUMOCOCCAL VACCINE 65+ YEARS (1 of 2 - PCV) 05/05/18 75 COLORECTAL SCREENING 05/05/2000 Colorectal Cancer Screening 05/05/2000 FIT-DNA Q 3 years 05/05/2000 FIT/FOBT Q 1 year 05/05/2000 Flex Sig/CT Colonography Q 5 years 05/05/2000 ZOSTER VACCINE (1 of 2) 05/05/2005 RSV VACCINE (60+ or ) (1 - Risk 60-74 years 1-dose series) 2015 DIABETES HBA1C Q 6 MONTHS 03/21/2018 09/18/2017 Abdominal Aortic Aneurysm (AAA) Screening 05/05/2020 INFLUENZA VACCINE (#1) 2023 DTAP/TDAP/TD VACCINES (2 - Td or Tdap) 02/06/2027 Medical Devices Implanted Type Area Mammographer Device Identifier Shelf Expiration Date Model / Serial / Lot Stents Bilateral Legs Procedures Procedure Name Priority Date/Time Associated Diagnosis Comments QUANTIFERON TB CONFIRMATION Routine 03/24/2024 11:51 AM BUILDING CODE INSPECTOR COMPREHENSIVE METABOLIC PANEL Routine 03/21/2024 1:12 PM BUILDING CODE INSPECTOR BASIC METABOLIC PANEL Routine 03/21/2024 1:08 PM BUILDING CODE INSPECTOR CBC WITH DIFFERENTIAL Routine 03/21/2024 1:07 PM BUILDING CODE INSPECTOR CBC WITH DIFFERENTIAL Routine 03/13/2024 4:12 PM BUILDING CODE INSPECTOR BASIC METABOLIC PANEL Routine 03/13/2024 4:11 PM BUILDING CODE INSPECTOR COMPREHENSIVE METABOLIC PANEL Routine 01/17/2024 12:47 PM BUILDING CODE INSPECTOR from Last 3 Months Results * QUANTIFERON TB CONFIRMATION (03/24/2024 11:51 AM BUILDING CODE INSPECTOR) Blood us Tommy Cassidy MD CHEMISTRY ORDERABLES Final Resu lt * COMPREHENSIVE METABOLIC PANEL (03/21/2024 1:12 PM BUILDING CODE INSPECTOR) Only the most recent of2 resultswithin the time period is included. Blood us Tommy Cassidy MD CHEMISTRY ORDERABLES Final Resu lt * BASIC METABOLIC PANEL (03/21/2024 1:08 PM BUILDING CODE INSPECTOR) Only the most recent of2 resultswithin the time period is included. Blood us Tommy Cassidy MD CHEMISTRY ORDERABLES Final Resu lt * CBC WITH DIFFERENTIAL (03/21/2024 1:07 PM BUILDING CODE INSPECTOR) Only the most recent of2 resultswithin the time period is included. Blood us Tommy Cassidy MD HEMATOLOGY ORDERABLES Final Res ult from Last 3 Months Insurance [employer] [facility] [employer] MCR Advance Directives For more information, please contact: [phone] * Full Code (Latest Code Status on File) Date Activated Date Inactivated Comments 04/04/2023 11:13 AM 04/04/2023 6:32 PM Care Teams Hoop Bender Tank Relationship Specialty Start Date End Date Shay Hooper MD PCP - General Internal Medicine 01/01/23
--- OUTSIDE RECORDS SUMMARY | 2024-04-03 10:33 | XMS_ITS | Referral Summary ---
Author Organization [facility] Address [address] [place] [address] Care Team Providers Care Glaze Grinder Name Role Phone Krish Hooper MD Primary Care Provide r Jorge Jorge DO Unavailable Rene Harris MD Unavailable Encounters Date Type Department Care Team Description 04/01/2024 Orders Only [facility] Cardiology [address] [facility] [address] [place] [address] Nimisha Ryan MD 02/12/2024 9:26 AM PROJECT DESIGN ENGINEER - 02/13/2024 10:31 AM PROJECT DESIGN ENGINEER Hospital Encounter [address] [address] Rene Harris MD Chest pain Discharge Disposition: Discharge to home or self care 02/12/2024 11:36 AM PROJECT DESIGN ENGINEER - 02/12/2024 1:36 PM PROJECT DESIGN ENGINEER Surgery [facility] Cardiac Catheterization Lab [id number] [place] [id number] Rene Harris MD PCI PTCA - MAJOR CORONARY [id number] 01/29/2024 Orders Only [facility] Cardiac Catheterization Lab [address] [place] [id number] Rene Harris MD Chest pain (Primary Dx) 01/23/2024 Orders Only [facility] Cardiology [address] [place] [address] Shawn Vyas MD from Last 3 Months Allergies Active Allergy Reactions Criticality Noted Date Comments Codeine Nausea & Vomiting Low 10/28/2013 Doxycycline Hives Medium 06/11/2018 Penicillamine Rash Medium 10/28/2013 Penicillins Hives Medium 09/17/2017 Torsemide Unknown,Rash Medium 08/08/[address] (PROTONIX) 40 mg EC tablet Take 1 tablet (40 mg total) by mouth daily Active zolpidem (AMBIEN) 10 mg tablet Take 1 tablet (10 mg total) by mouth nightly as needed for sleep Active insulin degludec (TRESIBA) 100 unit/mL (3 mL) pen for injection Inject 0.5 mL (50 Units total) under the skin nightly Active atorvastatin (LIPITOR) 40 mg tablet TAKE 1 TABLET BY MOUTH ONCE DAILY 30 tablet 9 Active ferrous sulfate 325 mg (65 mg of elemental iron) tabletIndication s:Iron Deficiency Anemia Take 1 tablet (325 mg total) by mouth daily with breakfast Active acetaminophen (TYLENOL) 500 mg tablet Take 1 tablet (500 mg total) by mouth 2 (two) times a day Active pregabalin (LYRICA) 50 mg capsule Take 1 capsule (50 mg total) by mouth 3 (three) times a day 2 Active insulin aspart niacinamide (FIASP) 100 unit/mL vial for injection Inject 0-10 Units under the skin 3 (three) times a day with meals Based on sliding scale Active nadoloL (CORGARD) 40 mg tablet Take 1 tablet (40 mg total) by mouth daily 4 Active ondansetron (ZOFRAN) 8 mg tablet Take 1 tablet (8 mg total) by mouth every 8 (eight) hours as needed 4 Active nitroglycerin (NITROSTAT) 0.[address] 1 tablet (0.4 mg total) under the tongue every 5 (five) minutes as needed 4 Active megestroL 40 mg/mL suspension Take 10 mL (400 mg total) by mouth as needed 4 Active magnesium oxide (MAG-OX) 400 mg (241.3 mg elemental magnesium) tablet Take 1 tablet (400 mg total) by mouth daily Active isosorbide mononitrate ER (IMDUR) 60 mg 24 hr tablet Take 1 tablet (60 mg total) by mouth every morning 4 Active hydrOXYzine (ATARAX) 50 mg tablet Take 1 tablet (50 mg total) by mouth every 8 (eight) hours as needed 4 Active fluticasone propion-salmeter oL (ADVAIR DISKUS) 250-50 mcg/dose diskus inhaler Inhale 1 puff 2 (two) times a day Active albuterol HFA (PROVENTIL HFA,VENTOLIN HFA,PROAIR HFA) 90 mcg/actuation inhaler Inhale 1 puff every 4 (four) hours as needed Active amLODIPine (NORVASC) 5 mg tablet Take 1 tablet (5 mg total) by mouth daily 4 Active clopidogreL (PLAVIX) 75 mg tablet Take 1 tablet (75 mg total) by mouth daily for 21 doses 21 tablet 4 Active rivaroxaban (Xarelto) 20 mg tablet Take 1 tablet (20 mg total) by mouth daily with breakfast 90 tablet 11 4 Active Active Problems Problem Noted Date Diagnosed Date CAD S/P percutaneous coronary angioplasty 2023 Chest pain 01/29/2024 Thrombocytopenia, unspecified 08/23/2021 Transient cerebral ischemia 12/10/2017 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 09/17/2017 Secondary hypertension 09/17/2017 Other hyperlipidemia 09/17/2017 PVD (peripheral vascular disease) Immunizations Name Administration Dates Next Due Tdap 02/06/2017 Social History Tobacco Use Types Packs/Day Years Used Date Smoking Tobacco: Every Day Cigarettes Smokeless Tobacco: Never Tobacco Cessation:Ready to Q uit: No; Counseling Given: Yes Alcohol Use Standard Drinks/Week Comments Not Currently [...] on file Legal Sex Male 7:05 PM PROJECT DESIGN ENGINEER Gender Identity Not on file Sexual Orientation Not on file Last Filed Vital Signs Vital Sign Reading Time Taken Comments Blood Pressure 130/54 02/13/2024 8:04 AM PROJECT DESIGN ENGINEER Pulse 67 02/13/2024 8:04 AM PROJECT DESIGN ENGINEER Temperature 36.9 C (98.5 F) 02/13/2024 8:04 AM PROJECT DESIGN ENGINEER Respiratory Rate 18 02/13/2024 8:04 AM PROJECT DESIGN ENGINEER Oxygen Saturation 99% 02/13/2024 8:04 AM PROJECT DESIGN ENGINEER Inhaled Oxygen Concentration - - Weight 83.5 kg (184 lb) 02/12/2024 3:20 PM PROJECT DESIGN ENGINEER Height 180.3 cm (5' 11 ) 02/12/2024 3:20 PM PROJECT DESIGN ENGINEER Body Mass Index 25.66 02/12/2024 3:20 PM PROJECT DESIGN ENGINEER Plan of Treatment Not on file Medical Devices Implanted Type Area Hr Consultant Device Identifier Shelf Expiration Date Model / Serial / Lot [employer] Synergy Xd Monorail 4mm 32mm 144cm Delivery System 1 Access Port [id number] - [id number] Implanted:Qty: 1 on 02/12/2024 by Rene Harris MD at [facility] [employer] 11/28/2024 [id number] / / [id number] Procedures Procedure Name Priority Date/Time Associated Diagnosis Comments CARDIOLOGY DOCUMENT SCAN Routine 03/27/2024 10:46 AM PROJECT DESIGN ENGINEER CARDIOLOGY DOCUMENT SCAN Routine 03/26/2024 10:43 AM PROJECT DESIGN ENGINEER POCT GLUCOSE DEVICE Routine 02/13/2024 7 :52 AM PROJECT DESIGN ENGINEER EGFR Routine 02/13/2024 2:34 AM PROJECT DESIGN ENGINEER BASIC METABOLIC PANEL Routine 02/13/2024 2:34 AM PROJECT DESIGN ENGINEER APTT Routine 02/12/2024 3:35 PM PROJECT DESIGN ENGINEER POCT ACTIVATED CLOTTING TIME, HIGH RANGE Routine 02/12/2024 2:28 PM PROJECT DESIGN ENGINEER POCT ACTIVATED CLOTTING TIME, HIGH RANGE Routine 02/12/2024 1:54 PM PROJECT DESIGN ENGINEER POCT GLUCOSE DEVICE Routine 02/12/2024 1 :33 PM PROJECT DESIGN ENGINEER PERCUTAINEOUS TRANSLUMINAL CORONARY ANGIOPLASTY OF ONE MAJOR CORONARY Routine 02/12/2024 1:19 PM PROJECT DESIGN ENGINEER Chest pain POCT ACTIVATED CLOTTING TIME, HIGH RANGE Routine 02/12/2024 1:00 PM PROJECT DESIGN ENGINEER POCT ACTIVATED CLOTTING TIME, HIGH RANGE Routine 02/12/2024 12:33 PM PROJECT DESIGN ENGINEER POCT GLUCOSE DEVICE Routine 02/12/2024 1 0:45 AM PROJECT DESIGN ENGINEER EGFR Routine 02/12/2024 10:13 AM PROJECT DESIGN ENGINEER DIFFERENTIAL AUTO Routine 02/12/2024 10: 13 AM PROJECT DESIGN ENGINEER PROTIME-INR Routine 02/12/2024 10:13 AM PROJECT DESIGN ENGINEER CBC WITH AUTO DIFFERENTIAL Routine 02/12/2024 10:13 AM PROJECT DESIGN ENGINEER BASIC METABOLIC PANEL Routine 02/12/2024 10:13 AM PROJECT DESIGN ENGINEER ECG 12-LEAD Routine 02/12/2024 10:06 AM PROJECT DESIGN ENGINEER POCT GLUCOSE DEVICE Routine 02/12/2024 9 :49 AM PROJECT DESIGN ENGINEER CARDIOLOGY DOCUMENT SCAN Routine 01/22/2024 1:55 PM PROJECT DESIGN ENGINEER CARDIOLOGY DOCUMENT SCAN Routine 01/21/2024 1:53 PM PROJECT DESIGN ENGINEER HEMOGLOBIN A1C Routine 09/18/2017 6:16 AM CDT LIPID PANEL STAT 09/18/2017 6:16 AM CDT from Last 3 Months or Most Recently Relevant to Health Maintenance Results * Cardiology Document Scan (03/27/2024 10:46 AM PROJECT DESIGN ENGINEER) Anatomical Region Laterality Modality Other us Shawn Vyas MD CV CARDIAC SERVICES PROCEDURES F inal Result * Cardiology Document Scan (03/26/2024 10:43 AM PROJECT DESIGN ENGINEER) Anatomical Region Laterality Modality Other Nimisha Ryan MD CV CARDIAC SERVICES PRO CEDURES Final Result * POCT glucose (02/13/2024 7:52 AM PROJECT DESIGN ENGINEER) Glucose, POC 119 70 - 199 mg/dL Blood 02/13/2024 7:52 AM PROJECT DESIGN ENGINEER 02/13/2024 7:52 AM PROJECT DESIGN ENGINEER Rene Harris MD LAB POCT ORDERABLES - DEVICE Fin al Result Performing Organization Address City/State/[facility] Co de Phone Number NINA [phone] [address] Department [place] [address] * (ABNORMAL) eGFR (02/13/2024 2:34 AM PROJECT DESIGN ENGINEER) eGFR 57(L) >=60 mL/min/1. 73 m2 Comment: Interpretive Data Reference Interval Normal >/= 90 mL/min/1.73m2 Mildly decreased* 60 - 89 mL/min/1.73m2 Mildly to moderately decreased 45 - 59 mL/min/1.73m2 Moderately to severely decreased 30 - 44 mL/min/1.73m2 Severely decreased 15 - 29 mL/min/1.73m2 Kidney Failure < 15 mL/min/1.73m2 *Relative to young adult level Estimated glomerular filtration rate is determined by the 2020 CKD-EPI equation recommended by the National Kidney Foundation (A Unifying Approach to GFR Estimation: Recommendations of the NKF-ASK Task Force on Reassessing the Inclusion of Race in Diagnosing Kidney Disease, JASN 202). The CKD-EPI equation should not be used for patients with unstable renal function and has not been validated in children and those over 70. Current interpretive data was last reviewed 2020. Blood 02/13/2024 2:34 AM PROJECT DESIGN ENGINEER 02/13/2024 3:28 AM PROJECT DESIGN ENGINEER Rene Harris MD LAB BLOOD ORDERABLES Final Resul t NINA DAVID [address] [place] [address] * (ABNORMAL) Basic metabolic panel (02/13/2024 2:34 AM PROJECT DESIGN ENGINEER) Sodium 138 135 - 145 mmol/L Potassium, pl 4.1 3.3 - 4.9 mmol/L [facility] Chloride 107 97 - 110 mmol/L [facility] CO2 20(L) 22 - 32 mmol/L [facility] Anion gap 11 2 - 15 mmol/L [facility] BUN 18 6 - 25 mg/dL [facility] Creatinine 1.35(H) 0.80 - 1.30 mg/dL [facility] Glucose 105 70 - 199 mg/dL [facility] Comment: Interpretive Data Fasting glucose >/= 126 mg/dl is diagnostic for diabetes. Fasting is defined as no caloric intake for at least 8 hours. Fasting glucose between 100 mg/dl to 125 mg/dl is diagnostic of prediabetes. In a patient with classic symptoms of hyperglycemia or hyperglycemic crisis, a random glucose >/= 200 mg/dl is diagnostic for diabetes. In the absence of unequivocal hyperglycemia, results should be confirmed by repeat testing. The classification and Diagnosis of Diabetes Diabetes Care 2021; 46: S19-S40. Current interpretive data was last revised 2022. Calcium 9.0 8.5 - 10.3 mg/dL [facility] Blood 02/13/2024 2:34 AM PROJECT DESIGN ENGINEER 02/13/2024 3:28 AM PROJECT DESIGN ENGINEER Rene Harris MD LAB BLOOD ORDERABLES Final Resul t Performing Organization Address [facility] Co de Phone Number NINA DAVID [phone] [address] [place] [address] * (ABNORMAL) aPTT (02/12/2024 3:35 PM PROJECT DESIGN ENGINEER) aPTT >150(C) 28 - 38 sec Comment: Critical result called to and read back by Prema Pulliam (RN _) on 02/12/2024 17:10:38 PROJECT DESIGN ENGINEER _ to _ [place]. Interpretive Data Heparin therapeutic range: 66.0 - 100.0 seconds. Range based on correlation with therapeutic heparin activity range of 0.3 - 0.7 Units/mL. Current interpretive data was last revised on 2022. Blood 02/12/2024 3:35 PM PROJECT DESIGN ENGINEER 02/12/2024 3:43 PM PROJECT DESIGN ENGINEER Narrative NINA DAVID - 02/12/2024 5:11 PM PROJECT DESIGN ENGINEER Draw aPTT 2 hours after anticoagulant discontinued. us Rene Harris MD LAB BLOOD ORDERABLES Final Resul t Performing Organization Address City/[facility] Co de Phone Number NINA [phone] [facility] [address] [place], [place] [id number] * (ABNORMAL) POC Activated Clotting Time, High Range (02/12/2024 2:28 PM PROJECT DESIGN ENGINEER) ACT 173(H) 87 - 138 sec Blood 02/12/2024 2:28 PM PROJECT DESIGN ENGINEER 02/12/2024 2:28 PM PROJECT DESIGN ENGINEER us Rene Harris MD LAB BLOOD ORDERABLES Final Resul t Performing Organization Address [facility] Co de Phone Number NINA [phone] [facility] [address] [place], [place] [id number] * (ABNORMAL) POC Activated Clotting Time, High Range (02/12/2024 1:54 PM PROJECT DESIGN ENGINEER) ACT 219(H) 87 - 138 sec Blood 02/12/2024 1:54 PM PROJECT DESIGN ENGINEER 02/12/2024 1:54 PM PROJECT DESIGN ENGINEER us Rene Harris MD LAB BLOOD ORDERABLES Final Resul t Performing Organization Address City/[facility] Co de Phone Number CLARENCEWICHO DAVID [phone] [facility] [place] [address] * POCT glucose (02/12/2024 1:33 PM PROJECT DESIGN ENGINEER) Glucose, POC 81 70 - 199 mg/dL Blood 02/12/2024 1:33 PM PROJECT DESIGN ENGINEER 02/12/2024 1:33 PM PROJECT DESIGN ENGINEER us Rene Harris MD LAB POCT ORDERABLES - DEVICE Fin al Result NINA DAVID [address] [address] Department [place] [address] * PERCUTAINEOUS TRANSLUMINAL CORONARY ANGIOPLASTY OF ONE MAJOR CORONARY (02/12/2024 1:19 PM PROJECT DESIGN ENGINEER) Anatomical Region Laterality Modality X-Ray Angiograph y Narrative 02/12/2024 1:34 PM PROJECT DESIGN ENGINEER Findings: This is a 68-year-old male who has a known history of hepatocellular cancer and is receiving maintenance therapy from an oncologist at [facility]. He received his maintenance chemotherapy several weeks ago and developed a day later non-STEMI. He did undergo cardiac catheterization and was found to have an RCA stenosis and some diffuse LAD disease along with the diagonal stenosis. We recommended doing coronary physiology and stenting as necessary. Risks benefits and alternatives of the procedure including option for medical management were discussed with the patient and the present family members. Risks discussed include but are not limited to stroke heart attack, , emergency bypass surgery, vascular injury, pain at site of sheath insertion, vascular surgery, embolic event with loss of limb and loss of digits, dye allergy, dye reaction, dialysis, at a rate of 02/999 for the angiographic portion of the procedure and 1/100 for the interventional part of the procedure. All questions were answered to their satisfaction. Patient prepped and draped usual sterile fashion 1% lidocaine used to infiltrate the region of the right common femoral artery using ultrasound to guide location of the stick and patency of the vessel we accessed the right RESIN FILTERER and placed a 7 sheath. I then used a 6 Mexican JR4 guide catheter and engaged the RCA took some initial guide shots and then we after giving heparin we passed a TANIYA blue and then an IFR wire and the IFR of the mid RCA was 0.70. I removed the IFR wire and did my intervention over the blue wire and we pre-dilated with a 3-0 20 at 10 atmospheres for 30 seconds. We then took pictures and then I decided to stent with a [employer] Water2 synergy stent this was deployed at nominal which was 11 atmospheres. Took pictures with good results and so we turned our attention to the LAD diagonal. I used a 7 Mexican EBU 3 5 guide catheter engaged the LM took initial pictures. Wire the diagonal with the IFR wire and it was 0.68 and we also did the LAD in that turned out to be 072. We then wired the diagonal with the blue wire and I put a BMW down the LAD wire. I did not want to fix the LAD as the patient had no angina and the disease was diffuse and a fight stented the LAD we would have had to do a 2 stent bifurcation and I just wanted to get him through his chemotherapy sessions and he has an hepatocellular cancer which does not have a good prognosis long-term. We can always come back to fix the LAD if he develops effort related angina. We used a 2012 balloon and ballooned the mid diagonal 1. I then removed this used the IVUS and the vessel was at least a 3 mm vessel. However I elected to use a 2 5 x 10 AngioSculpt and we went up and down at 8 atmospheres twice. I pulled the balloon back and then we took pictures with good result in the diagonal with the knot with no evidence of any perforation. Impression: Abnormal physiology of the mid RCA and the mid LAD and D1. We intervened on the RCA with a PENNIE LAD will be treated medically and D1 we treated with AngioSculpt Patient will continue with aggressive medical therapy and can restart his chemo as deemed necessary us Rene Harris MD CV CARDIAC CATH PROCEDURES Final Result * (ABNORMAL) POC Activated Clotting Time, High Range (02/12/2024 1:00 PM PROJECT DESIGN ENGINEER) ACT 208(H) 87 - 138 sec Blood 02/12/2024 1:00 PM PROJECT DESIGN ENGINEER 02/12/2024 1:00 PM PROJECT DESIGN ENGINEER us Rene Harris MD LAB BLOOD ORDERABLES Final Resul t NINA DAVID [id number] [place] [address] * (ABNORMAL) POC Activated Clotting Time, High Range (02/12/2024 12:33 PM PROJECT DESIGN ENGINEER) ACT 351(H) 87 - 138 sec Blood 02/12/2024 12:3 3 PM PROJECT DESIGN ENGINEER 02/12/2024 12:33 PM PROJECT DESIGN ENGINEER Rene Harris MD LAB BLOOD ORDERABLES Final Resul t Performing Organization Address City/[facility] Co de Phone Number NINA DAVID [phone] [address] [place] [address] * POCT glucose (02/12/2024 10:45 AM PROJECT DESIGN ENGINEER) Glucose, POC 100 70 - 199 mg/dL Blood 02/12/2024 10:4 5 AM PROJECT DESIGN ENGINEER 02/12/2024 10:45 AM PROJECT DESIGN ENGINEER Rene Harris MD LAB POCT ORDERABLES - DEVICE Fin al Result Performing Organization Address [facility] de Phone Number NINA DAVID [phone] [address] Department [place] [address] * (ABNORMAL) eGFR (02/12/2024 10:13 AM PROJECT DESIGN ENGINEER) Pathologist [facility] eGFR 51(L) >=60 mL/min/1. 73 m2 Comment: Interpretive Data Reference Interval Normal >/= 90 mL/min/1.73m2 Mildly decreased* 60 - 89 mL/min/1.73m2 Mildly to moderately decreased 45 - 59 mL/min/1.73m2 Moderately to severely decreased 30 - 44 mL/min/1.73m2 Severely decreased 15 - 29 mL/min/1.73m2 Kidney Failure < 15 mL/min/1.73m2 *Relative to young adult level Estimated glomerular filtration rate is determined by the 2020 CKD-EPI equation recommended by the National Kidney Foundation (A Unifying Approach to GFR Estimation: Recommendations of the NKF-ASK Task Force on Reassessing the Inclusion of Race in Diagnosing Kidney Disease, JASN 202). The CKD-EPI equation should not be used for patients with unstable renal function and has not been validated in children and those over 70. Current interpretive data was last reviewed 2020. Blood 02/12/2024 10:1 3 AM PROJECT DESIGN ENGINEER 02/12/2024 10:36 AM PROJECT DESIGN ENGINEER Rene Harris MD LAB BLOOD ORDERABLES Final Resul t [facility] [id number] Department [place] [address] * (ABNORMAL) Differential, auto (02/12/2024 10:13 AM PROJECT DESIGN ENGINEER) Neutrophil abs 2.1 1.5 - 6.5 K/cumm Imm gran abs 0.0 0.0 - 0.1 K/cumm [facility] Lymphocyte abs 0.5(L) 0.8 - 3.3 K/cumm [facility] Monocyte abs 0.4 0.2 - 0.8 K/cumm [facility] Eosinophil abs 0.2 0.0 - 0.5 K/cumm [facility] Basophil abs 0.0 0.0 - 0.1 K/cumm [facility] Neutrophil pct 64.3 % [facility] Comment: Interpretive Data Percent cell count reference ranges are not reported, since discordance with absolute values may lead to misinterpretation of CBC data. Current Interpretive Data was last revised on 2017. Imm gran pct 0.3 % [facility] Comment: Interpretive Data Percent cell count reference ranges are not reported, since discordance with absolute values may lead to misinterpretation of CBC data. Current Interpretive Data was last revised on 2017. Lymphocyte pct 16.6 % [facility] Comment: Interpretive Data Percent cell count reference ranges are not reported, since discordance with absolute values may lead to misinterpretation of CBC data. Current Interpretive Data was last revised on 2017. Monocyte pct 11.6 % [facility] Comment: Interpretive Data Percent cell count reference ranges are not reported, since discordance with absolute values may lead to misinterpretation of CBC data. Current Interpretive Data was last revised on 2017. Eosinophil pct 6.6 % [facility] Comment: Interpretive Data Percent cell count reference ranges are not reported, since discordance with absolute values may lead to misinterpretation of CBC data. Current Interpretive Data was last revised on 2017. Basophil pct 0.6 % [facility] Comment: Interpretive Data Percent cell count reference ranges are not reported, since discordance with absolute values may lead to misinterpretation of CBC data. Current Interpretive Data was last revised on 2017. Blood 02/12/2024 10:1 3 AM PROJECT DESIGN ENGINEER 02/12/2024 10:37 AM PROJECT DESIGN ENGINEER us Rene Harris MD LAB BLOOD ORDERABLES Final Resul t [facility] [address] [address] [place] [address] * (ABNORMAL) CBC with auto differential (02/12/2024 10:13 AM PROJECT DESIGN ENGINEER) WBC 3.2(L) 3.8 - 9.9 K/cumm Hgb 8.8(L) 13.0 - 17.5 g/dL [facility] Hct 27.2(L) 38.9 - 50.3 % [facility] Plt 147(L) 150 - 400 K/cumm [facility] MPV 9.3 9.1 - 12.3 fL [facility] RBC 2.82(L) 4.30 - 5.80 M/cumm [facility] MCV 96.5(H) 81.3 - 96.4 fL [facility] MCH 31.2 27.1 - 33.3 pg [facility] MCHC 32.4 32.3 - 35.7 g/dL [facility] RDW CV 14.5 11.1 - 14.9 % [facility] RDW SD 50.4(H) 35.7 - 48.1 fL [facility] NRBC abs 0.00 0.00 - 0.01 K/cumm [facility] Blood 02/12/2024 10:1 3 AM PROJECT DESIGN ENGINEER 02/12/2024 10:37 AM PROJECT DESIGN ENGINEER Narrative [facility] - 02/12/2024 10:42 AM PROJECT DESIGN ENGINEER If most recent labs were drawn prior to 4 AM, draw only prior to initiating procedure. us Rene Harris MD LAB BLOOD ORDERABLES Final Resul t Performing Organization Address [facility] de Phone Number NINA DAVID [address] [facility] [place] [address] * (ABNORMAL) Protime-INR (02/12/2024 10:13 AM PROJECT DESIGN ENGINEER) PT 13.9(H) 9.7 - 13.0 sec INR 1.28(H) 0.90 - 1.20 [facility] Comment: Interpretive data Oral anticoagulant therapeutic ranges: Venous thromboembolism prophylaxis or treatment: 2.0-3.0 CARDIOLOGY Standard range: 2.0-3.0 High-intensity range: 2.5-3.5 Refer to indication-specific guidelines for appropriate target ranges for prosthetic heart valve replacement. Current interpretive data was last revised on 2019. Blood 02/12/2024 10:1 3 AM PROJECT DESIGN ENGINEER 02/12/2024 10:37 AM PROJECT DESIGN ENGINEER Rene Harris MD LAB BLOOD ORDERABLES Final Resul t Performing Organization Address [facility] de Phone Number CLARENCEWICHO DAVID [address] [employer] [place] [address] * (ABNORMAL) Basic metabolic panel (02/12/2024 10:13 AM PROJECT DESIGN ENGINEER) Sodium 137 135 - 145 mmol/L Potassium, pl 4.3 3.3 - 4.9 mmol/L [facility] Chloride 106 97 - 110 mmol/L [facility] CO2 23 22 - 32 mmol/L [facility] Anion gap 8 2 - 15 mmol/L [facility] BUN 18 6 - 25 mg/dL [facility] Creatinine 1.48(H) 0.80 - 1.30 mg/dL [facility] Glucose 95 70 - 199 mg/dL [facility] Comment: Interpretive Data Fasting glucose >/= 126 mg/dl is diagnostic for diabetes. Fasting is defined as no caloric intake for at least 8 hours. Fasting glucose between 100 mg/dl to 125 mg/dl is diagnostic of prediabetes. In a patient with classic symptoms of hyperglycemia or hyperglycemic crisis, a random glucose >/= 200 mg/dl is diagnostic for diabetes. In the absence of unequivocal hyperglycemia, results should be confirmed by repeat testing. The classification and Diagnosis of Diabetes Diabetes Care 2021; 46: S19-S40. Current interpretive data was last revised 2022. Calcium 9.1 8.5 - 10.3 mg/dL NINA DAVID Blood 02/12/2024 10:1 3 AM PROJECT DESIGN ENGINEER 02/12/2024 10:36 AM PROJECT DESIGN ENGINEER Rene Harris MD LAB BLOOD ORDERABLES Final Resul t Performing Organization Address [facility] Co de Phone Number NINA [phone] [place] [address] * POCT glucose (02/12/2024 9:49 AM PROJECT DESIGN ENGINEER) Glucose, POC 88 70 - 199 mg/dL Blood 02/12/2024 9:49 AM PROJECT DESIGN ENGINEER 02/12/2024 9:49 AM PROJECT DESIGN ENGINEER Rene Harris MD LAB POCT ORDERABLES - DEVICE Fin al Result Performing Organization Address [facility] de Phone Number NINA [phone] [address] [employer] [place] [address] * Cardiology Document Scan (01/22/2024 1:55 PM PROJECT DESIGN ENGINEER) Anatomical Region Laterality Modality Other Nimisha Ryan MD [facility] PRO CEDURES Final Result * Cardiology Document Scan (01/21/2024 1:53 PM PROJECT DESIGN ENGINEER) Anatomical Region Laterality Modality Other Shawn Vyas MD [facility] CARDIAC SERVICES PROCEDURES F inal Result * (ABNORMAL) Hemoglobin A1c (09/18/2017 6:16 AM CDT) Hgb A1C 7.2(H) 4.0 - 5.6 % NINA ALEGRIA Estimated Average Glucose 160 mg/dL NINA ALEGRIA Comment: The ADA recommends reporting an estimated Average Glucose (eAG) with all Hemoglobin A1c results using the equation derived from a study of 507 normal and diabetic adults. Minority populations were underrepresented and children were not included. (Diabetes Care 31:1816-4741, 2008). The eAG is not equivalent to a fasting glucose. Blood specimen (specimen) 09/18/2017 6:16 AM CDT 09/18/2017 7:44 AM CDT Narrative [facility] - 09/18/2017 8:10 AM CDT Aiden Parker MD LAB BLOOD ORDERABLES Final Result [facility] Department [place] [address] * (ABNORMAL) Lipid panel (09/18/2017 6:16 AM CDT) Cholesterol 140 30 - 200 mg/dL [facility] Comment: Interpretive Data Desirable: <200 mg/dL Borderline high: 200-239 mg/dL High: > or = 240 mg/dL Literature Reference: National Cholesterol Education Program (NCEP) Expert Panel on Detection, Evaluation, and Treatment of High Blood Cholesterol in Adults (Adult Treatment Panel III). Circulation 2004; 110:227. Current interpretive data was last revised on 2014. Triglycerides 95 0 - 150 mg/dL [facility] Comment: Interpretive Data Desirable: < 150 mg/dL Borderline High: 150 - 199 mg/dL High: 200 - 499 mg/dL Very High: > or = 499 mg/dL Literature Reference: See Cholesterol Current interpretive data was last revised on 2014. HDL 32(L) >=40 mg/dL [facility] Comment: Interpretive Data Less than 40 mg/dL - low; A major risk factor for heart disease. Greater than or equal to 60 mg/dL - High; considered protective of heart disease. Literature Reference: See Cholesterol Current interpretive data was last revised on 2014. LDL, calculated 89 10 - 129 mg/dL [facility] Comment: Interpretive Data Optimal: < 100 mg/dL Near Optimal: 100 - 129 mg/dL Borderline High: 130 - 159 mg/dL High: 160 - 189 mg/dL Very high: > or = 190 mg/dL Literature Reference: See Cholesterol Current interpretive data was last revised on 2014. Non-HDL Cholesterol 108 mg/dL [facility] Comment: Interpretive Data When triglycerides are >200 mg/dL, non-HDL C is a secondary target of therapy, with a goal 30 mg/dL higher than the identified LDL-C goal. Reference: See Cholesterol Reference. Current interpretive data was last revised 2014. Blood specimen (specimen) 09/18/2017 6:16 AM CDT 09/18/2017 7:42 AM CDT Narrative [facility] - 09/18/2017 6:[address] AIDEN PARKER 09/18/2017 17:13:25 CDT Aiden Parker MD LAB BLOOD ORDERABLES Final Result [facility] Department [place] [address] from Last 3 Months or Most Recently Relevant to Health Maintenance Insurance [employer] MED[employer]ARE HMO [employer] MED[employer]ARE HMO Advance Directives For more information, please contact: [phone] * Full Code (Latest Code Status on File) Date Activated Date Inactivated Comments 02/12/2024 3:20 PM 02/13/2024 2:36 PM * Full Code Date Activated Date Inactivated Comments 09/18/2017 5:47 AM 09/19/2017 5:05 PM Care Teams Glaze Grinder Relationship Specialty Start Date End Date Krish Hooper MD [address] [address] PCP - General Internal Medicine 12/07/17 Jorge Jorge DO [address] [place] [id number] Medical Oncologist/Transportation Planner Hematology and Oncology 12/11/18 Rene Harris MD [address] [place] [address] Consulting Physician Cardiology 02/13/24
--- OUTSIDE RECORDS SUMMARY | 2024-04-03 10:33 | XMS_ITS | Clinical Summary ---
Author Organization [facility] [address] [place] [id number] Care Team Providers Care Supply Chain Generalist Name Role Phone Krish Hooper MD Primary Care Provide r Jorge Jorge DO Unavailable [phone] Rene Harris MD Unavailable Allergies Active Allergy Reactions Criticality Noted Date [...] Other hyperlipidemia 09/17/2017 PVD (peripheral vascular disease) Encounters Date Type Department Care Team Description 04/01/2024 Orders Only [facility] Cardiology [address] [place] [address] Nimisha Ryan MD 02/12/2024 11:36 AM PROPOSAL WRITER - 02/12/2024 1:36 PM PROPOSAL WRITER Surgery [facility]iac [facility]atheter[facility] [address] [place] [address] Rene Harris MD PCI PTCA - MAJOR CORONARY [id number] 02/12/2024 9:26 AM PROPOSAL WRITER - 02/13/2024 10:31 AM PROPOSAL WRITER Hospital Encounter [address] [address] Rene Harris MD Chest pain Discharge Disposition: Discharge to home or self care 01/29/2024 Orders Only [facility] Cardiac [facility]atheter[facility] [address] [place] [id number] Rene Harris MD Chest pain (Primary Dx) 01/23/2024 Orders Only [facility] Cardiology [address] [place] [address] Shawn Vyas MD from Last 3 Months Immunizations Name Administration Dates Next Due Tdap 02/06/2017 Surgical History Surgery Date Site/Laterality Comments BRAIN SURGERY BLADDER SURGERY APPENDECTOMY Medical History Medical History Date Comments Stroke (HCC) Bladder carcinoma (HCC) Hypertension no longer on med ications for Hyperlipidemia PVD (peripheral vascular disease) (HCC) Type 2 diabetes mellitus wit h circulatory disorder (HCC) 09/17/2017 ICH (intracerebral hemorrhage) (HCC) R cerebellum, associated with basilar aneurysm CAD (coronary artery disease) COPD (chronic obstructive pu lmonary disease) (HCC) Liver cancer (HCC) Heart attack (HCC) Anemia Family History Medical History Relation Name Comments Hypertension Father Relation Name Status Comments Father Social History Tobacco Use Types Packs/Day Years [...] on file Legal Sex Male 7:05 PM PROPOSAL WRITER Gender Identity Not on file Sexual Orientation Not on file Obstetrics History Last Filed Vital Signs Vital Sign Reading Time Taken Comments Blood Pressure 130/54 02/13/2024 8:04 AM PROPOSAL WRITER Pulse 67 02/13/2024 8:04 AM PROPOSAL WRITER Temperature 36.9 C (98.5 F) 02/13/2024 8:04 AM PROPOSAL WRITER Respiratory Rate 18 02/13/2024 8:04 AM PROPOSAL WRITER Oxygen Saturation 99% 02/13/2024 8:04 AM PROPOSAL WRITER Inhaled Oxygen Concentration - - Weight 83.5 kg (184 lb) 02/12/2024 3:20 PM PROPOSAL WRITER Height 180.3 cm (5' 11 ) 02/12/2024 3:20 PM PROPOSAL WRITER Body Mass Index 25.66 02/12/2024 3:20 PM PROPOSAL WRITER Plan of Treatment Health Maintenance Due Date Last Done Comments Albumin Creatinine Ratio, Urine 1955 Colon Cancer Screening-Colonoscopy 1955 Hepatitis C Screening 1955 Prostate Cancer Screening-PSA 1955 Dilated Eye Exam 1955 Foot Exam 1955 Pneumococcal vaccine 65+ (1 of 2 - PCV) 05/05/1961 Hepatitis B Screening 05/05/1973 Zoster Vaccine (1 of 2) 05/05/1974 Hemoglobin A1C 03/21/2018 09/18/2017 Depression Screening 09/17/2018 09/17/2017, 09/18/19 18 Lipid Panel 09/18/2018 09/18/2017 Abdominal Aortic Aneurysm (A AA) Screen 05/05/2020 Well Visit 65+ 05/05/2020 Influenza Vaccine (#1) 2023 Fall Risk Assessment 02/12/2025 02/13/2024 eGFR 02/12/2025 02/13/2024, 01/26, 08/24/2021 DTaP/Tdap/Td Vaccine (2 - Td or Tdap) 02/06/202701/2017 Medical Devices Implanted Type Area Grinding Wheel Facer Device Identifier Shelf Expiration Date Model / Serial / Lot katena Synergy Xd Monorail 4mm 32mm 144cm Delivery System 1 Access Port [id number] - [id number] Implanted:Qty: 1 on 02/12/2024 by Rene Harris MD at [facility] katena 11/28/2024 [id number] / / [id number] Procedures Procedure Name Priority Date/Time Associated Diagnosis Comments CARDIOLOGY DOCUMENT SCAN Routine 03/27/2024 10:46 AM PROPOSAL WRITER CARDIOLOGY DOCUMENT SCAN Routine 03/26/2024 10:43 AM PROPOSAL WRITER POCT GLUCOSE DEVICE Routine 02/13/2024 7 :52 AM PROPOSAL WRITER EGFR Routine 02/13/2024 2:34 AM PROPOSAL WRITER BASIC METABOLIC PANEL Routine 02/13/2024 2:34 AM PROPOSAL WRITER APTT Routine 02/12/2024 3:35 PM PROPOSAL WRITER POCT ACTIVATED CLOTTING TIME, HIGH RANGE Routine 02/12/2024 2:28 PM PROPOSAL WRITER POCT ACTIVATED CLOTTING TIME, HIGH RANGE Routine 02/12/2024 1:54 PM PROPOSAL WRITER POCT GLUCOSE DEVICE Routine 02/12/2024 1 :33 PM PROPOSAL WRITER PERCUTAINEOUS TRANSLUMINAL CORONARY ANGIOPLASTY OF ONE MAJOR CORONARY Routine 02/12/2024 1:19 PM PROPOSAL WRITER Chest pain POCT ACTIVATED CLOTTING TIME, HIGH RANGE Routine 02/12/2024 1:00 PM PROPOSAL WRITER POCT ACTIVATED CLOTTING TIME, HIGH RANGE Routine 02/12/2024 12:33 PM PROPOSAL WRITER POCT GLUCOSE DEVICE Routine 02/12/2024 1 0:45 AM PROPOSAL WRITER EGFR Routine 02/12/2024 10:13 AM PROPOSAL WRITER DIFFERENTIAL AUTO Routine 02/12/2024 10: 13 AM PROPOSAL WRITER PROTIME-INR Routine 02/12/2024 10:13 AM PROPOSAL WRITER CBC WITH AUTO DIFFERENTIAL Routine 02/12/2024 10:13 AM PROPOSAL WRITER BASIC METABOLIC PANEL Routine 02/12/2024 10:13 AM PROPOSAL WRITER ECG 12-LEAD Routine 02/12/2024 10:06 AM PROPOSAL WRITER POCT GLUCOSE DEVICE Routine 02/12/2024 9 :49 AM PROPOSAL WRITER CARDIOLOGY DOCUMENT SCAN Routine 01/22/2024 1:55 PM PROPOSAL WRITER CARDIOLOGY DOCUMENT SCAN Routine 01/21/2024 1:53 PM PROPOSAL WRITER HEMOGLOBIN A1C Routine 09/18/2017 6:16 AM CDT LIPID PANEL STAT 09/18/2017 6:16 AM CDT from Last 3 Months or Most Recently Relevant to Health Maintenance Results * Cardiology Document Scan (03/27/2024 10:46 AM PROPOSAL WRITER) Anatomical Region Laterality Modality Other us Shawn Vyas MD CV CARDIAC SERVICES PROCEDURES F inal Result * Cardiology Document Scan (03/26/2024 10:43 AM PROPOSAL WRITER) Anatomical Region Laterality Modality Other us Nimisha Ryan MD CV CARDIAC SERVICES PRO CEDURES Final Result * POCT glucose (02/13/2024 7:52 AM PROPOSAL WRITER) Glucose, POC 119 70 - 199 mg/dL Blood 02/13/2024 7:52 AM PROPOSAL WRITER 02/13/2024 7:52 AM PROPOSAL WRITER Rene Harris MD LAB POCT ORDERABLES - DEVICE Fin al Result Performing Organization Address [facility] Co de Phone Number NINA DAVID [address] [place] [address] * (ABNORMAL) eGFR (02/13/2024 2:34 AM PROPOSAL WRITER) eGFR 57(L) >=60 mL/min/1. 73 m2 Comment: [...] of Race in Diagnosing Kidney Disease, JASN 2020). The CKD-EPI equation should not be used for patients with unstable renal function and has not been validated in children and those over 70. Current interpretive data was last reviewed 2020. Blood 02/13/2024 2:34 AM PROPOSAL WRITER 02/13/2024 3:28 AM PROPOSAL WRITER Rene Harris MD LAB BLOOD ORDERABLES Final Resul t Performing Organization Address [facility] Co de Phone Number NINA DAVID [address] Department of [place], [place] [phone] * (ABNORMAL) Basic metabolic panel (02/13/2024 2:34 AM PROPOSAL WRITER) Sodium 138 135 - 145 mmol/L Potassium, pl 4.1 3.3 - 4.9 mmol/L [facility] Chloride 107 97 - 110 mmol/L [facility] CO2 20(L) 22 - 32 mmol/L [facility] Anion gap 11 2 - 15 mmol/L [facility] BUN 18 6 - 25 mg/dL [facility] Creatinine 1.35(H) 0.80 - 1.30 mg/dL [facility] Glucose 105 70 - 199 mg/dL [facility] Comment: Interpretive Data Fasting glucose >/= [...] 2022. Calcium 9.0 8.5 - 10.3 mg/dL [facility] Blood 02/13/2024 2:34 AM PROPOSAL WRITER 02/13/2024 3:28 AM PROPOSAL WRITER Rene Harris MD LAB BLOOD ORDERABLES Final Resul t [facility] [address] Department of Laboratories [place] [phone] * (ABNORMAL) aPTT (02/12/2024 3:35 PM PROPOSAL WRITER) aPTT >150(C) 28 - 38 sec Comment: Critical result called to and read back by Prema Pulliam (RN _) on 02/12/2024 17:10:38 PROPOSAL WRITER _ to _ [place]. Interpretive Data Heparin therapeutic range: 66.0 - 100.0 seconds. Range based on correlation with therapeutic heparin activity range of 0.3 - 0.7 Units/mL. Current interpretive data was last revised on 2022. Blood 02/12/2024 3:3 5 PM PROPOSAL WRITER 02/12/2024 3:43 PM PROPOSAL WRITER Narrative [facility] - 02/12/2024 5:11 PM PROPOSAL WRITER Draw aPTT 2 hours after anticoagulant discontinued. Rene Harris MD LAB BLOOD ORDERABLES Final Resul t Performing Organization Address [facility] Co de Phone Number NINA DAVID [phone] [facility] [place], [place] [id number] * (ABNORMAL) POC Activated Clotting Time, High Range (02/12/2024 2:28 PM PROPOSAL WRITER) ACT 173(H) 87 - 138 sec Blood 02/12/2024 2:28 PM PROPOSAL WRITER 02/12/2024 2:28 PM PROPOSAL WRITER Rene Harris MD LAB BLOOD ORDERABLES Final Resul t Performing Organization Address [facility] de Phone Number NINA DAVID [address] [place] [address] * (ABNORMAL) POC Activated Clotting Time, High Range (02/12/2024 1:54 PM PROPOSAL WRITER) ACT 219(H) 87 - 138 sec Blood 02/12/2024 1:54 PM PROPOSAL WRITER 02/12/2024 1:54 PM PROPOSAL WRITER Rene Harris MD LAB BLOOD ORDERABLES Final Resul t Performing Organization Address [facility] Co de Phone Number NINA DAVID [address] [place] [address] * POCT glucose (02/12/2024 1:33 PM PROPOSAL WRITER) Glucose, POC 81 70 - 199 mg/dL Blood 02/12/2024 1:33 PM PROPOSAL WRITER 02/12/2024 1:33 PM PROPOSAL WRITER us Rene Harris MD LAB POCT ORDERABLES - DEVICE Fin al Result Performing Organization Address [facility] Co de Phone Number NINA DAVID [address] [facility] [place] [address] * PERCUTAINEOUS TRANSLUMINAL CORONARY ANGIOPLASTY OF ONE MAJOR CORONARY (02/12/2024 1:19 PM PROPOSAL WRITER) Anatomical Region Laterality Modality X-Ray Angiograph y Narrative 02/12/2024 1:34 PM PROPOSAL WRITER Findings: This is a 68-year-old male who has a known history of hepatocellular cancer and is receiving maintenance therapy from an oncologist at [facility]. He received his maintenance chemotherapy [...] of the vessel we accessed the right VOICE INTERCEPT TECHNICIAN and placed a 7 sheath. I then used a 6 [place] JR4 guide catheter and engaged the RCA [...] then I decided to stent with a [id number] synergy stent this was deployed at nominal which was 11 atmospheres. Took pictures with good results and so we turned our attention to the LAD diagonal. I used a 7 [place] EBU 3 5 guide catheter engaged the [...] Clotting Time, High Range (02/12/2024 1:00 PM PROPOSAL WRITER) eReceipts Signature ACT 208(H) 87 - 138 sec Blood 02/12/2024 1:00 PM PROPOSAL WRITER 02/12/2024 1:00 PM PROPOSAL WRITER us Rene Harris MD LAB BLOOD ORDERABLES Final Resul t Performing Organization Address [facility] de Phone Number NINA [address] [place] [address] * (ABNORMAL) POC Activated Clotting Time, High Range (02/12/2024 12:33 PM PROPOSAL WRITER) eReceipts Signature ACT 351(H) 87 - 138 sec Blood 02/12/2024 12:3 3 PM PROPOSAL WRITER 02/12/2024 12:33 PM PROPOSAL WRITER Rene Harris MD LAB BLOOD ORDERABLES Final Resul t Performing Organization Address [facility] Co de Phone Number NINA [address] [place] [address] * POCT glucose (02/12/2024 10:45 AM PROPOSAL WRITER) Glucose, POC 100 70 - 199 mg/dL Blood 02/12/2024 10:4 5 AM PROPOSAL WRITER 02/12/2024 10:45 AM PROPOSAL WRITER Rene Harris MD LAB POCT ORDERABLES - DEVICE Fin al Result Performing Organization Address [facility] Co de Phone Number NINA DAVID [address] [place] [place] [address] * (ABNORMAL) eGFR (02/12/2024 10:13 AM PROPOSAL WRITER) eGFR 51(L) >=60 mL/min/1. 73 m2 Comment: [...] of Race in Diagnosing Kidney Disease, JASN 2020). The CKD-EPI equation should not be used for patients with unstable renal function and has not been validated in children and those over 70. Current interpretive data was last reviewed 2020. Blood 02/12/2024 10:1 3 AM PROPOSAL WRITER 02/12/2024 10:36 AM PROPOSAL WRITER Rene Harris MD LAB BLOOD ORDERABLES Final Resul t Performing Organization Address [facility] Co de Phone Number NINA DAVID [address] Department [employer] [place], [place] [phone] * (ABNORMAL) Differential, auto (02/12/2024 10:13 AM PROPOSAL WRITER) Neutrophil abs 2.1 1.5 - 6.5 K/cumm Imm gran abs 0.0 0.0 - 0.1 K/cumm [facility] Lymphocyte abs 0.5(L) 0.8 - 3.3 K/cumm [facility] Monocyte abs 0.4 0.2 - 0.8 K/cumm [facility] Eosinophil abs 0.2 0.0 - 0.5 K/cumm [facility] Basophil abs 0.0 0.0 - 0.1 K/cumm [facility] Neutrophil pct 64.3 % [facility] Comment: Interpretive Data Percent cell count reference ranges are not reported, since discordance with absolute values may lead to misinterpretation of CBC data. Current Interpretive Data was last revised on 2017. Imm gran pct 0.3 % [facility] Comment: Interpretive Data Percent cell count reference ranges are not reported, since discordance with absolute values may lead to misinterpretation of CBC data. Current Interpretive Data was last revised on 2017. Lymphocyte pct 16.6 % [facility] Comment: Interpretive Data Percent cell count reference ranges are not reported, since discordance with absolute values may lead to misinterpretation of CBC data. Current Interpretive Data was last revised on 2017. Monocyte pct 11.6 % [facility] Comment: Interpretive Data Percent cell count reference ranges are not reported, since discordance with absolute values may lead to misinterpretation of CBC data. Current Interpretive Data was last revised on 2017. Eosinophil pct 6.6 % [facility] Comment: Interpretive Data Percent cell count reference ranges are not reported, since discordance with absolute values may lead to misinterpretation of CBC data. Current Interpretive Data was last revised on 2017. Basophil pct 0.6 % [facility] Comment: Interpretive Data Percent cell count reference ranges are not reported, since discordance with absolute values may lead to misinterpretation of CBC data. Current Interpretive Data was last revised on 2017. Blood 02/12/2024 10:1 3 AM PROPOSAL WRITER 02/12/2024 10:37 AM PROPOSAL WRITER Rene Harris MD LAB BLOOD ORDERABLES Final Resul t Performing Organization Address [facility] Co de Phone Number NINA DAVID [address] Department of Laboratories [place], [place] [phone] * (ABNORMAL) CBC with auto differential (02/12/2024 10:13 AM PROPOSAL WRITER) WBC 3.2(L) 3.8 - 9.9 K/cumm Hgb 8.8(L) 13.0 - 17.5 g/dL [facility] Hct 27.2(L) 38.9 - 50.3 % [facility] Plt 147(L) 150 - 400 K/cumm [facility] MPV 9.3 9.1 - 12.3 fL [facility] RBC 2.82(L) 4.30 - 5.80 M/cumm [facility] MCV 96.5(H) 81.3 - 96.4 fL [facility] MCH 31.2 27.1 - 33.3 pg [facility] MCHC 32.4 32.3 - 35.7 g/dL [facility] RDW CV 14.5 11.1 - 14.9 % [facility] RDW SD 50.4(H) 35.7 - 48.1 fL [facility] NRBC abs 0.00 0.00 - 0.01 K/cumm [facility] Blood 02/12/2024 10:1 3 AM PROPOSAL WRITER 02/12/2024 10:37 AM PROPOSAL WRITER Narrative [facility] - 02/12/2024 10:42 AM PROPOSAL WRITER If most recent labs were drawn prior to 4 AM, draw only prior to initiating procedure. Rene Harris MD LAB BLOOD ORDERABLES Final Resul t Performing Organization Address [facility] Co de Phone Number NINA DAVID [address] Department [place] [address] * (ABNORMAL) Protime-INR (02/12/2024 10:13 AM PROPOSAL WRITER) PT 13.9(H) 9.7 - 13.0 sec INR 1.28(H) 0.90 - 1.20 [facility] Comment: Interpretive data Oral anticoagulant therapeutic ranges: Venous thromboembolism prophylaxis or treatment: 2.0-3.0 CARDIOLOGY Standard range: 2.0-3.0 High-intensity range: 2.5-3.5 Refer to indication-specific guidelines for appropriate target ranges for prosthetic heart valve replacement. Current interpretive data was last revised on 2019. Blood 02/12/2024 10:1 3 AM PROPOSAL WRITER 02/12/2024 10:37 AM PROPOSAL WRITER Rene Harris MD LAB BLOOD ORDERABLES Final Resul t [facility] [phone] Department [place] [address] * (ABNORMAL) Basic metabolic panel (02/12/2024 10:13 AM PROPOSAL WRITER) Sodium 137 135 - 145 mmol/L Potassium, pl 4.3 3.3 - 4.9 mmol/L [facility] Chloride 106 97 - 110 mmol/L [facility] CO2 23 22 - 32 mmol/L [facility] Anion gap 8 2 - 15 mmol/L [facility] BUN 18 6 - 25 mg/dL [facility] Creatinine 1.48(H) 0.80 - 1.30 mg/dL [facility] Glucose 95 70 - 199 mg/dL [facility] Comment: Interpretive Data Fasting glucose >/= [...] classification and Diagnosis of Diabetes Diabetes Care 202; 46: S19-S40. Current interpretive data was last revised 2022. Calcium 9.1 8.5 - 10.3 mg/dL [facility] Blood 02/12/2024 10:1 3 AM PROPOSAL WRITER 02/12/2024 10:36 AM PROPOSAL WRITER us Rene Harris MD LAB BLOOD ORDERABLES Final Resul t Performing Organization Address City/[facility]/ZIP Co de Phone Number NINA DAVID [address] [facility] [place] [address] * POCT glucose (02/12/2024 9:49 AM PROPOSAL WRITER) Glucose, POC 88 70 - 199 mg/dL Blood 02/12/2024 9:49 AM PROPOSAL WRITER 02/12/2024 9:49 AM PROPOSAL WRITER Rene Harris MD LAB POCT ORDERABLES - DEVICE Fin al Result Performing Organization Address [facility] Co de Phone Number NINA DAVID [address] [place] [address] * Cardiology Document Scan (01/22/2024 1:55 PM PROPOSAL WRITER) Anatomical Region Laterality Modality Other Nimisha Ryan MD CV CARDIAC SERVICES PRO CEDURES Final Result * Cardiology Document Scan (01/21/2024 1:53 PM PROPOSAL WRITER) Anatomical Region Laterality Modality Other Shawn Vyas MD CV CARDIAC SERVICES PROCEDURES F inal Result * (ABNORMAL) Hemoglobin A1c (09/18/2017 6:16 AM CDT) Hgb A1C 7.2(H) 4.0 - 5.6 % NINA ALEGRIA Estimated Average Glucose 160 mg/dL [facility] Comment: The ADA recommends reporting an estimated Average Glucose (eAG) with all Hemoglobin A1c results using the equation derived from a study of 507 normal and diabetic adults. Minority populations were underrepresented and children were not included. (Diabetes Care 31:8983-0685, 2008). The eAG is not equivalent to a fasting glucose. Blood specimen (specimen) 09/18/2017 6:16 AM CDT 09/18/2017 7:44 AM CDT Narrative NINA ALEGRIA - 09/18/2017 8:10 AM CDT Aiden Parker MD LAB BLOOD ORDERABLES Final Result [facility] Department [place] [address] * (ABNORMAL) Lipid panel (09/18/2017 6:16 AM CDT) Cholesterol 140 30 - 200 mg/dL [facility] Comment: Interpretive Data Desirable: <200 mg/dL Borderline high: 200-239 mg/dL High: > or = 240 mg/dL Literature Reference: National Cholesterol Education Program (NCEP) Expert Panel on Detection, Evaluation, and Treatment of High Blood Cholesterol in Adults (Adult Treatment Panel III). Circulation 2004; 110:227. Current interpretive data was last revised on 2014. Triglycerides 95 0 - 150 mg/dL [facility] Comment: Interpretive Data Desirable: < 150 mg/dL Borderline High: 150 - 199 mg/dL High: 200 - 499 mg/dL Very High: > or = 499 mg/dL Literature Reference: See Cholesterol Current interpretive data was last revised on 2014. HDL 32(L) >=40 mg/dL [facility] Comment: Interpretive Data Less than 40 mg/dL - low; A major risk factor for heart disease. Greater than or equal to 60 mg/dL - High; considered protective of heart disease. Literature Reference: See Cholesterol Current interpretive data was last revised on 2014. LDL, calculated 89 10 - 129 mg/dL [facility] Comment: Interpretive Data Optimal: < 100 mg/dL Near Optimal: 100 - 129 mg/dL Borderline High: 130 - 159 mg/dL High: 160 - 189 mg/dL Very high: > or = 190 mg/dL Literature Reference: See Cholesterol Current interpretive data was last revised on 2014. Non-HDL Cholesterol 108 mg/dL [facility] Comment: Interpretive Data When triglycerides are >200 mg/dL, non-HDL C is a secondary target of therapy, with a goal 30 mg/dL higher than the identified LDL-C goal. Reference: See Cholesterol Reference. Current interpretive data was last revised 2014. Blood specimen (specimen) 09/18/2017 6:16 AM CDT 09/18/2017 7:42 AM CDT rBie WOOD [facility] - 09/18/2017 6:[address] AIDEN PARKER 09/18/2017 17:13:25 CDT Aiden Parker MD LAB BLOOD ORDERABLES Final Result [facility] [place] [address] from Last 3 Months or Most Recently Relevant to Health Maintenance Insurance [employer] MEDICARE HMO [employer] MED[employer]ARE HMO Advance Directives For more information, please contact: [phone] * Full Code (Latest Code Status on File) Date Activated Date Inactivated Comments 02/12/2024 3:20 PM 02/13/2024 2:36 PM * Full Code Date Activated Date Inactivated Comments 09/18/2017 5:47 AM 09/19/2017 5:05 PM Care Teams Supply Chain Generalist Relationship Specialty Start Date End Date Krish Hooper MD [address] [address] PCP - General Internal Medicine 12/07/17 Jorge Jorge DO [address] [place] [id number] Medical Oncologist/Partner [facility] 12/11/18 Rene Harris MD [address] [place] [address] Consulting Physician Cardiology 02/13/24
--- OUTSIDE RECORDS SUMMARY | 2024-04-03 10:33 | XMS_ITS | CONTINUITY OF CARE DOCUMENT ---
Author Name shea valdivia Address Unknown Organization [facility] Address [address] [place] [address] Phone [phone] Care Team Providers Care Loan Review Analyst Name Role Phone Rene Harris MD Unavailable [phone] López Powell DPM Unavailable [phone] MARSHAL CONDON MD Unavailable [phone] PROBLEMS Condition Status Date Provider Notes HTN essential active Rene Harris MD Cardiology examination active Rene Harris MD Family History of CVA or Stroke: active ? Beulah Harris MD Family History of Hypertension: active ? Kale Harris MD Family History of Sudden Car diac : active ? Rene Harris MD Diabetic foot ulcer, great toe, left active Rene Harris MD Hx of Stroke and TIA active Rene Harris MD Diabetes mellitus active Rene Harris MD Tobacco abuse active Rene Harris MD Hyperlipidemia active Rene Harris MD Carotid artery disease active Rene Harris MD PVD with ulcer active Rene Harris MD Cirrhosis, alcoholic, liver active Rene durant MD Systolic murmur active Rene Harris MD Abnormal EKG active Rene Harris MD Syncope active Daniela Ventimiglia [employer]NAL [employer]ION [employer]INE [employer]SEMBLER Liver cancer, primary active Rene Burrows CAD s/p stents active Rene Harris MD ENCOUNTERS Date Type Provider Location Encounter Diag nosis - In-person encounter Office Visit Rene Harris MD [facility] CAD s/p stents - In-person encounter Office Visit Rene Harris MD [facility] - In-person encounter Office Visit Rene Harris MD [facility] Liver cancer, primary - In-person encounter Office Visit Rene Harris MD [facility] Syncope - In-person encounter Office Visit Rene Harris MD [facility] - In-person encounter Office Visit Rene Harris MD [facility] Cirrhosis, alcoholic, liverSystolic murmurAbnormal EKG - In-person encounter Office Visit Rene Harris MD [facility] PVD with ulcer - In-person encounter Office Visit Rene Harris MD [facility] Carotid artery disea se - In-person encounter Office Visit Rene Harris MD [facility] Hyperlipidemia - In-person encounter Office Visit Rene Harris MD [facility] Tobacco abuse - In-person encounter Office Visit Rene Harris MD [facility] Cardiology examinationFamily History of CVA or Stroke:Family History of Hypertension:Family History of Sudden Cardiac :Diabetic foot ulcer, great toe, leftHx of Stroke and TIADiabetes mellitus VITAL SIGNS Date Observation Value Provider Body Mass Index (Ratio) 26.22 kg/m2 Kale Harris MD pulse rate 67 /min Wanda Hugo blood pressure, diastolic 52 mm[Hg] [facility], systolic 101 mm[Hg] Alem feliz [facility] oxygen saturation, oximetry 95 % Wanda [facility] weight E&M 188 [lb_av] Wanda [facility] height E&M 71 [in_i] Wanda [facility] Body Mass Index (Ratio) 26.36 kg/m2 Kale Harris MD weight E&M 189 [lb_av] Adri Brown pulse rate 74 /min Adri Brown blood pressure, cuff size regular Myles burton Paul blood pressure, diastolic 50 mm[Hg] Myles burton Brown blood pressure, systolic 108 mm[Hg] Tab itha Paul oxygen saturation, oximetry 99 % Adri Brown respiratory rate E&M 12 /min Adri Paul height E&M 71 [in_i] Adri Paul Body Mass Index (Ratio) 28.87 kg/m2 Kale Harris MD blood pressure, cuff size regular [facility] blood pressure, diastolic 66 mm[Hg] Latrell et blood pressure, systolic 144 mm[Hg] Jd blevins pulse rate 72 /min Mikey oxygen saturation, oximetry 98 % Mikey respiratory rate E&M 12 /min Mikey weight E&M 207 [lb_av] Mikey height E&M 71 [in_i] Mikey [facility] y Body Mass Index (Ratio) 28.31 kg/m2 Kale Harris MD blood pressure, diastolic 73 mm[Hg] St palak Pulliam blood pressure, systolic 136 mm[Hg] Ivette rush Heraclio oxygen saturation, oximetry 96 % Naomy Heraclio pulse rate 71 /min Naomy Heraclio respiratory rate E&M 18 /min Naomy Stormy smiley weight E&M 203 [lb_av] Naomy Heraclio height E&M 71 [in_i] Naomy Heraclio Body Mass Index (Ratio) 28.87 kg/m2 Kale Harris MD blood pressure, cuff size large Ke rri Gabriel blood pressure, diastolic 70 mm[Hg] Ke rri Gabriel blood pressure, systolic 140 mm[Hg] Hannah Rios oxygen saturation, oximetry 98 % Radha Rios respiratory rate E&M 16 /min Radha wagner pulse rate 73 /min Radha riggs weight E&M 207 [lb_av] Radha riggs height E&M 71 [in_i] Radha Green er Body Mass Index (Ratio) 29.01 kg/m2 Kale Harris MD blood pressure, diastolic 108 mm[Hg] Salma mirandaLogirasema blood pressure, systolic 172 mm[Hg] Emily Langfordogirasema blood pressure, diastolic 70 mm[Hg] Ana Cristina Coulter blood pressure, systolic 137 mm[Hg] Ever Coulter oxygen saturation, oximetry 98 % Angeli Coulter pulse rate 75 /min Angeli bonilla respiratory rate E&M 20 /min Cynthia Coulter weight E&M 208 [lb_av] Angeli bonilla blood pressure, cuff size regular Ana Cristina Coulter height E&M 71 [in_i] Angeli bonilla Body Mass Index (Ratio) 27.05 kg/m2 Kale Harris MD blood pressure, cuff size regular Cy jaden Guerrier blood pressure, diastolic 72 mm[Hg] Cy jaden Guerrier blood pressure, systolic 128 mm[Hg] Ina geovani Guerrier oxygen saturation, oximetry 98 % Antonella Guerrier respiratory rate E&M 16 /min Antonellageovani Guerrier pulse rate 71 /min Antonella Garcia l weight E&M 194 [lb_av] Antonella Costabel l height E&M 71 [in_i] Antonella Costabel l Body Mass Index (Ratio) 26.92 kg/m2 Kale Harris MD blood pressure, diastolic 80 mm[Hg] Kr isty Dorado blood pressure, systolic 152 mm[Hg] Kri styariel Dorado oxygen saturation, oximetry 98 % Cynthia Olga Lidia respiratory rate E&M 17 /min Cynthia Dorado pulse rate 72 /min Cynthia Olga Lidia blood pressure, cuff size regular Kr iscarly Olga Lidia weight E&M 193 [lb_av] Cynthia Dorado height E&M 71 [in_i] Cynthia Olga Lidia Body Mass Index (Ratio) 26.64 kg/m2 Kale Harris MD blood pressure, diastolic 80 mm[Hg] Da deniz Shruthi blood pressure, systolic 114 mm[Hg] Dac ia Shruthi oxygen saturation, oximetry 99 % Michaela Shruthi respiratory rate E&M 16 /min Michaela V oss pulse rate 94 /min Michaela Shruthi weight E&M 191 [lb_av] Michaela Shruthi height E&M 71 [in_i] Michaela Shruthi Body Mass Index (Ratio) 26.36 kg/m2 Kale Harris MD blood pressure, diastolic 80 mm[Hg] Da deniz Shruthi blood pressure, systolic 138 mm[Hg] Dac ia Shruthi oxygen saturation, oximetry 94 % Michaela Shruthi respiratory rate E&M 18 /min Michaela V oss pulse rate 96 /min Michaela Shruthi weight E&M 189 [lb_av] Michaela Shruthi height E&M 71 [in_i] [facility] Body Mass Index (Ratio) 27.19 kg/m2 Kale Harris MD blood pressure, cuff size large Ke [facility]ri [facility] blood pressure, diastolic 80 mm[Hg] Ke rri Gabriel blood pressure, systolic 124 mm[Hg] Hannah ri Gabriel oxygen saturation, oximetry 98 % Radha Gabriel respiratory rate E&M 20 /min Radha wagner pulse rate 88 /min Radha Norma lder weight E&M 195 [lb_av] Radha Norma lder height E&M 71 [in_i] Radha Norma lder ALLERGIES Allergy Name Onset Date Reaction Criticality Status TORSEMIDE Broke out in blisters Low Criticalit y active PCN Low Criticality active CODIENE gi upset Low Criticality active HISTORY OF MEDICATION USE Medication Status Instructions Dates Provider Indications Com ments nadolol 40 mg tablet active Christine Cai RN nitroglycerin 0.4 mg tablet, sublingual active 1 tablet under tongue for chest pain. May repeat every 5 minutes if still having chest pain- to max of 3 tablets per episode.If no relief after 3rd dose, go to ER Rene Harris MD amlodipine 2.5 mg tablet completed Take 1 tablet by mouth once daily HOLD 03/21/24 - Yeni Chisholm RN Novolog Flexpen U-100 Insulin 100 unit/mL (3 mL) insulin pen active Inject 12 unit twice a day Antonella Guerrier atorvastatin 40 mg tablet active Take 1 tablet once a day Antonella Guerrier CLINDAMYCIN HCL 300 MG ORAL CAPSULE completed take one tablet by mouth four times daily - Antonella Guerrier calcitriol 0.25 mcg capsule active Take 1 tablet by mouth once a day Cynthia Duggan MAX-U-300 active Take 1 tablet by mouth once a day Cynthia Duggan LOSARTAN POTASSIUM 25 MG ORAL TABLET completed take one tablet by mouth once daily - Antonella Guerrier Lyrica 100 mg capsule active Take once a day Michaela Hawkins Ambien 10 mg tablet active Take 1 every night Radha Rios BYDUREON 2 MG SUBCUTANEOUS PEN-INJECTOR completed once a week - Cynthia Duggan Tresiba FlexTouch U-100 100 unit/mL (3 mL) insulin pen active 34 unit once a day Angeli Coulter pantoprazole 40 mg tablet,delayed release (DR/EC) active Take 1 twice a day Radha Rios CORGARD 20 MG ORAL TABLET completed take one pill a day - Cynthia Duggan METFORMIN HCL 1000 MG ORAL TABLET completed 2 pills twice a day - Cynthia Duggan AMARYL 1 MG ORAL TABLET completed 2 pills twice a day - Cynthia Duggan GABAPENTIN 600 MG ORAL TABLET completed take one pill twice a day - Cynthia Duggan Lasix 20 mg tablet completed Take 1 once a day - Christine Cai RN Plavix 75 mg tablet completed Take 1 tablet once a day - Phyllis Boland Lipitor 40 mg tablet active 1 tablet once a day Radha Rios aspirin 81 mg tablet,delayed release (DR/EC) active 1 tablet by mouth once a day Radha Rios SOCIAL HISTORY Date Observation Value Provider smoking/tobacco cess ation, patient education and counseling yes Rene Harris MD number of years as a smoker 50 a Rene Harris MD smoking history, tot al pack/day 1/2 ppd Rene Harris MD cigarette use yes Rene Burrows smoking status Current every da y smoker Rene Harris MD smoking/tobacco cess ation, patient education and counseling yes Rene Harris MD number of years as a smoker 50 a Rene Harris MD smoking history, tot al pack/day 1/2 ppd Rene Harris MD cigarette use yes Rene Burrows smoking status Current every da y smoker Rene Harris MD smoking/tobacco cess ation, patient education and counseling yes Rene Harris MD number of years as a smoker 50 a Rene Harris MD smoking history, tot al pack/day 1/2 nithya Harris MD cigarette use yes Rene Harris M Stormy smoking status Current every da y smoker Rene Harrsi MD social history E&M S moking History: P atganesh currently smokes every day. P atient has been counseled to quit. Daniela Sanches [facility] social history reviewed E&M revi ewed - no changes required Daniela Sanches [facility] smoking/tobacco cess ation, patient education and counseling yes Naomy Pulliam number of years as a smoker 50 a Naomy Pulliam smoking history, tot al pack/day 1/2 ppd Naomy Pulliam cigarette use yes Naomy Pulliam smoking status Current every da y smoker Naomy Pulliam social history E&M S moking History: P atient currently smokes every day. P atient has been counseled to quit. Rene Harris MD social history reviewed E&M revi ewed - no changes required Rene Harris MD smoking/tobacco cess ation, patient education and counseling yes Radha Mcdanieljordana number of years as a smoker 50 a Radha Rios smoking history, tot al pack/day 1/2 ppd Radha Rios cigarette use yes Radha minor smoking status Current every da y smoker Radha Rios social history reviewed E&M revi ewed - no changes required Rene Harris MD social history E&M S moking History: P atient currently smokes every day. P atient has been counseled to quit. Rene Harris MD social history reviewed E&M revi ewed - no changes required Rene Harris MD smoking/tobacco cess ation, patient education and counseling yes Antonella Guerrier number of years as a smoker 50 a Antonella Fareed smoking history, tot al pack/day 1/2 ppd Antonella Guerrier cigarette use yes Antonella looney smoking status Current every da y smoker Antonella Fareed social history E&M S moking History: P atient currently smokes every day. P atient has been counseled to quit. Rene Harris MD social history reviewed E&M revi ewed - no changes required Rene Harris MD smoking/tobacco cess ation, patient education and counseling yes Cynthia Duggan number of years as a smoker 50 a Cynthia Paganby smoking history, tot al pack/day 1/2 ppd Cynthia Paganby cigarette use yes Cynthia Paganby smoking status Current every da y smoker Cynthia Paganby smoking status Current every da y smoker Rene Harris MD social history E&M S moking History: P atient currently smokes every day. P atient has been counseled to quit. Rene Harris MD social history reviewed E&M revi ewed - no changes required Rene Harris MD smoking/tobacco cess ation, patient education and counseling yes Michaela Shruthi number of years as a smoker 50 a Michaela Shruthi smoking history, tot al pack/day 1/2 ppd Michaela Shruthi cigarette use yes Michaela Shruthi social history E&M S moking History: P atient currently smokes every day. P atient has been counseled to quit. eRne Harris MD social history reviewed E&M revi ewed - no changes required Rene Harris MD smoking/tobacco cess ation, patient education and counseling yes Michaela Shruthi number of years as a smoker 50 a Michaela Shruthi smoking history, tot al pack/day 1/2 ppd Michaela Shruthi cigarette use yes Michaela Shruthi smoking status Current every da y smoker Michaela Shruthi number of grandchildren Rene Harris MD U jerome Harris MD social history E&M S moking History: P atient currently smokes every day. P atient has been counseled to quit. Rene Harris MD social history reviewed E&M revi ewed - no changes required Rene Harris MD smoking/tobacco cess ation, patient education and counseling yes Rene Harris MD number of years as a smoker 50 a Radha Mcduffieberry smoking history, tot al pack/day 1/2 ppd Radha Mcduffieberry cigarette use yes Radha Pimentel elder smoking status Current every da y smoker Radha Mcduffieratnadavechris FAMILY HISTORY Family Member Condition Mother Negative FH of Coron efra Artery Disease Father Family History of Fallon dden Cardiac : Father Family History of Hy pertension: Father Family History of CV A or Stroke: INSURANCE PROVIDERS Payer name Policy type / Coverage type [place] [employer] HMO HMO [id number] ADVANCE DIRECTIVES Name Date DISCUSSED - NO DECISION MADE TREATMENT PLAN Date Name Performer [id number],C, H is last echo showed EF is 65%. His Carotid study showed <50% stenosis of the right ICA, 50 - 69% stenosis of the left ICA, Possible right subclavian stenosis. Follows with Dr. Wu. Daniela Sanches [facility] [id number],C,P t states that he had a recent syncopal episode with slurred speech this past Mother's Day. Denies chest pain and palpitations. Does c/o SOB. Did not return back to the hospital as was there month prior with similar episode. Will arrange a 2 week tele monitor and Stress Reg. Daniela Sanches [facility] [id number],S, H is updated medication list for this problem includes: Atorvastatin 40 Mg Tablet (Atorvastatin) ..... Take 1 tablet once a day Lipitor 40 Mg Tablet (Atorvastatin) ..... 1 tablet once a day Daniela Sanches [facility] [id number],S,W ill arrange RPM. BP today: 136/73 P rior BP: 140/70 (08/08/2021) His updated medication list for this problem includes: Amlodipine 5 Mg Tablet (Amlodipine) ..... Take 1 tablet by mouth once daily Lasix 20 Mg Tablet (Furosemide) ..... Take 1 once a day Aspirin 81 Mg Tablet,delayed Release (dr/ec) (Aspirin) ..... 1 tablet by mouth once a day Daniela Sanches [facility] [id number],S,S till smokes 1PPD. The Patient was reencouraged to stop smoking. Daniela Sanches [facility] [id number],C,H e has been having fluctuating BPs and he does not feel okay taking Losartan. Will stop Losartan 20mg and start Amlodipine to see if sx resolve. Will hopefully see him in the office soon. Rene Harris MD [id number],C,T he Patient was reencouraged to stop smoking. Rene Harris MD [id number],C,T he Patient was reencouraged to stop smoking. Rene Harris MD [id number],C,per Dr.B Kale Harris MD [id number],B,Ulcers have h ealed. Rene Harris MD [id number],C,E cho showed mild aortic stenosis. Otherwise no significant sx. Continue medical therapy. Rene Harris MD [id number],N,N ew PRWP on EKG today compared to previous. Will check echocardiogram. Rene Harris MD [id number],C,W ill obtain lipids from [facility]'s office. H is updated medication list for this problem includes: Atorvastatin 40 Mg Tablet (Atorvastatin) ..... Take 1 tablet once a day Lipitor 40 Mg Tablet (Atorvastatin) ..... 1 tablet once a day Rene Harris MD [id number],S, T he Patient was reencouraged to stop smoking. Rene Harris MD [id number],S,H gladys systolic murmur appreciated on exam. Will recheck echo to monitor progression of aortic stenosis. Rene Harris MD [id number],C, H as had interventions done on the L LE previously. He also had an amputation of his L big toe. His R big toe wound has been healing. 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 He has been doing well. Will check an JOSH. Rene Harris MD Cardiology: W ill reduce Amlodipine to 2.5 as BP is on lower side. BP today: 101/52 P rior BP: 108/50 (10/11/2023) Rene Harris MD Cardiology:Due to so me degree of . Rene Harris MD Cardiology:Continue Statin, Plavix, and Aspirin O K to continue chemotherapy Rene Harris MD Cardiology:Repeat Ec ho T his visit has been a part of the consistent, comprehensive, and ongoing management of the chronic medical condition(s) listed above for the patient. Rene Harris MD Cardiology: B P today: 108/50 P rior BP: 144/66 (04/12/2023) Rene Harris MD Cardiology:Syncope is better. No further episodes Rene Harris MD Cardiology:Undergoin g liver cancer treatment. Per Oncology Rene Harris MD Cardiology:The Patie nt was reencouraged to stop smoking. Rene Harris MD Cardiology:per PCP Rene Harris MD Cardiology: U lcers have healed. continue statin and asa Rene Harris MD Cardiology: H is updated medication list for this problem includes: Amlodipine 5 Mg Tablet (Amlodipine) ..... Take 1 tablet by mouth once daily Lasix 20 Mg Tablet (Furosemide) ..... Take 1 once a day Aspirin 81 Mg Tablet,delayed Release (dr/ec) (Aspirin) ..... 1 tablet by mouth once a day BP today: 144/66 P rior BP: 136/73 (07/27/2022) Rene Harris MD Cardiology:no recurrence Rene hu MD Cardiology:per oncol jayesh and interventional radiology Rene Harris MD Cardiology: H is last echo showed EF is 65%. His Carotid study showed <50% stenosis of the right ICA, 50 - 69% stenosis of the left ICA, Possible right subclavian stenosis. Follows with Dr. Wu. Daniela Sanches [facility] Cardiology:Pt states that he had a recent syncopal episode with slurred speech this past Mother's Day. Denies chest pain and palpitations. Does c/o SOB. Did not return back to the hospital as was there month prior with similar episode. Will arrange a 2 week tele monitor and Stress Reg. Daniela Sanches [facility] Cardiology: H is updated medication list for this problem includes: Atorvastatin 40 Mg Tablet (Atorvastatin) ..... Take 1 tablet once a day Lipitor 40 Mg Tablet (Atorvastatin) ..... 1 tablet once a day Danielarain Sanches [facility] Cardiology:Will arra jarred RPM. BP today: 136/73 P rior BP: 140/70 (08/08/2021) His updated medication list for this problem includes: Amlodipine 5 Mg Tablet (Amlodipine) ..... Take 1 tablet by mouth once daily Lasix 20 Mg Tablet (Furosemide) ..... Take 1 once a day Aspirin 81 Mg Tablet,delayed Release (dr/ec) (Aspirin) ..... 1 tablet by mouth once a day Daniela Sanches [facility] Cardiology:Still smo kes 1PPD. The Patient was reencouraged to stop smoking. Daniela JACOBOP Telehealth:He has be en having fluctuating BPs and he does not feel okay taking Losartan. Will stop Losartan 20mg and start Amlodipine to see if sx resolve. Will hopefully see him in the office soon. Rene Harris MD Telehealth:The Patie nt was reencouraged to stop smoking. Rene Harris MD Cardiology:The Patie nt was reencouraged to stop smoking. Rene Harris MD Cardiology:per Dr.B Rene Harris MD Cardiology:Ulcers have healed. U jerome Harris MD Cardiology:Echo show ed mild aortic stenosis. Otherwise no significant sx. Continue medical therapy. Rene Harris MD Cardiology:New PRWP on EKG today compared to previous. Will check echocardiogram. Rene Harris MD Cardiology:Will obta in lipids from [facility]'s office. H is updated medication list for this problem includes: Atorvastatin 40 Mg Tablet (Atorvastatin) ..... Take 1 tablet once a day Lipitor 40 Mg Tablet (Atorvastatin) ..... 1 tablet once a day Rene Harris MD Cardiology: T he Patient was reencouraged to stop smoking. Rene Harris MD Cardiology:Harsh sys tolic murmur appreciated on exam. Will recheck echo to monitor progression of aortic stenosis. Rene Harris MD Cardiology: H as had interventions done on the L LE previously. He also had an amputation of his L big toe. His R big toe wound has been healing. 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 He has been doing well. Will check an JOSH. Rene Harris MD Cardiology followup :Per PCP Beulah Harris MD Cardiology followup : H is updated medication list for this problem includes: Atorvastatin Calcium 40 Mg Oral Tablet (Atorvastatin calcium) ..... Take 1 tab daily Lipitor 40 Mg Oral Tablet (Atorvastatin calcium) ..... One tab. daily Rene Harris MD Cardiology followup : He had his carotid artery operated on by Dr. Wu. Rene Harris MD Cardiology followup :The Patient was reencouraged to stop smoking. Rene Harris MD Cardiology followup :Has had b/l issues. Has had interventions done on the L LE previously. He also had an amputation of his L big toe. His R big toe wound has been healing. 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 He wants to wait to do intervention as he wants to see how it does. Rene Harris MD Cardiology:Now has a developing ulcer on the R big toe and so will see if we can revasularize that safely. Rene Harris MD Cardiology:The Patie nt was reencouraged to stop smoking. Rene Harris MD Cardiology:Will chec k a carotid angio. Refer to vascular surgery Rene Harris MD Cardiology:Continue Lipitor 40mg . Rene Harris MD Cardiology [facility] follow up:on Atorvastatin 40mg Rene Harris MD Cardiology hospital follow up:pe r PCP Rene Harris MD Cardiology [facility] follow up:s/p revascularization to the L PT. Wound has begun healing much better than in past 6 months. Will check sensilase to ensure patency and progress. Will do JOSH in 1 month to make sure stent remains patent. Rene Harris MD [facility] follow up:The Patient was reencouraged to stop smoking. Rene Harris MD Cardiology [facility] follow up:The Patient was reencouraged to stop smoking. Rene Harris MD Cardiology hospital follow up Us nadya Harris MD Cardiology hospital follow up:Need to try and open up his L PT and DP. Will schedule AIF at [facility]. Rene Harris MD Cardiology New Patie nt :Will order arterial SENSILASE Rene Harris MD Cardiology New Patie nt :current diabetic ulcer on great toe of L foot. HbA1c per pt is 7.0% Reen Harris MD Date Name PROTHROMBIN TIME WIT H INR CBC (INCLUDES DIFF/P LT) BASIC METABOLIC PANE L W/EGFR LIPID PANEL Complete Echo Stress Regadenoson RPM (remote patient monitoring) Monitor - Telemetry (Mobile Cardiac) Arterial Duplex Bi-L ower EX Complete Echo Arterial Duplex Bi-L ower EX PROTHROMBIN TIME WIT H INR CBC (INCLUDES DIFF/P LT) LIPID PANEL BASIC METABOLIC PANE L W/EGFR Carotid Angiogram - [facility] AIF Intervention - S [facility] Arterial - SENSILASE Arterial Duplex Bi-L ower EX PROTHROMBIN TIME WIT H INR CBC (INCLUDES DIFF/P LT) LIPID PANEL BASIC METABOLIC PANE L W/EGFR AIF Intervention - S [facility] Arterial - SENSILASE HISTORY OF PROCEDURES Procedure Date Procedure Name Provider Procedure Notes S tatus Complex e/m visit add on Rene Harris MD completed EKG Rene Harris MD completed EKG Rene Harris MD completed
--- OUTSIDE RECORDS SUMMARY | 2024-04-03 10:33 | XMS_ITS | Clinical Summary ---
Author Organization [facility] Facility Address [address] [address] Care Team Providers Care Lead Cargoman Name Role Phone Shay Hooper MD Primary Care Provider [phone] Allergies Active Allergy Reactions Criticality Noted Date Comments Codeine 05/10/2021 Penicillins 05/10/2021 Medications torsemide (DEMADEX) 10 MG tablet Take 1 tablet (10 mg total) by mouth every morning 90 tablet 1 05/10/2021 Active ergocalciferol 1.25 MG (45710 UT) capsule Take 1 capsule (50,000 Units total) by mouth every 30 (thirty) days 4 capsule 1 06/28/2021 Active atorvastatin (LIPITOR) 20 MG tablet Take 1 tablet (20 mg total) by mouth every night 90 tablet 1 11/01/2022 Active MAGnesium-Oxide 400 (240 Mg) MG tablet Take 1 tablet by mouth once daily 90 tablet 02/18/2024 Active Encounters Date Type Department Care Team Description 02/29/2024 Documentation Only [facility], [employer] [address] [phone] Emiliano Washington DO 02/17/2024 Refill [facility], [employer] [address] [place] [address] [address] [place] [address] Emiliano Washington DO from Last 3 Months Social History Tobacco Use Types Packs/Day Years Used Date Smoking Tobacco: Never Assessed Sex and Gender Information Value Date Recorded Sex Assigned at Not on file Legal Sex Male 2:49 PM EST Gender Identity Not on file Sexual Orientation Not on file Last Filed Vital Signs Vital Sign Reading Time Taken Comments Blood Pressure 148/60 12/25/2023 2:52 PM CDT Pulse 98 12/25/2023 2:52 PM CDT Temperature 36.7 C (98 F) 12/25/2023 2:52 PM CDT Respiratory Rate 18 12/25/2023 2:52 PM CDT Oxygen Saturation 98% 12/25/2023 2:52 PM CDT Inhaled Oxygen Concentration - - Weight 84.5 kg (186 lb 3.2 oz) 12/25/2023 2:52 P M CDT Height 180.3 cm (5' 11 ) 04/11/2022 12:58 PM AIRCRAFT SHIPPING CHECKER Body Mass Index 25.97 04/11/2022 12:58 PM AIRCRAFT SHIPPING CHECKER Plan of Treatment Upcoming Encounters Date Type Department Care Team (Late st Contact Info) Description 2024 2:45 PM CDT Office Visit [facility], [facility] [address] [facility] [address] [place] [address] Emiliano Washington DO [address] [facility] 1 [place] [phone] Health Maintenance Due Date Last Done Comments Pneumococcal Vaccine: 65+ Years (1 of 2 - PCV) 962 Colorectal Cancer Screening: Annual FOBT 05/05/2004 Colorectal Cancer Screening: Colonoscopy 05/05/2004 Colorectal Cancer Screening: Sigmoidoscopy 05/05/2004 Hepatitis B Vaccine (1 of 3 - Risk 3-dose series) 04/26 Diabetes: Hemoglobin A1C 03/01/2021 09/18/2017 Diabetes: Ophthalmology Exam 03/01/2021 Diabetes: Pedal Pulse Checked 03/01/2021 Diabetes: Sensory Foot Exam 03/01/2021 Diabetes: Visual Foot Exam 03/01/2021 Influenza Vaccine (#1) 2023 Insurance [employer] MEDICARE Advance Directives Documents on File Type Date Recorded Patient Mid Level Clinician Expl anation Advance Care Planning 05/11/2021 11:05 AM Care Teams Lead Cargoman Relationship Specialty Start Date End Date Shay Hooper MD [address] [facility], [address] [place] [address] PCP - General Internal Medicine 03/01/21
--- OUTSIDE RECORDS SUMMARY | 2024-04-03 10:33 | XMS_ITS | Clinical Summary ---
Author Organization [facility] Address [address] [place] [address] Phone Care Team Providers Care Journeyman Electrician Pv Installer Name Role Phone Provider, Not On File Primary Care Provider Unav ailable Allergies Active Allergy Reactions Criticality Noted Date Comments Codeine Nausea 09/22/2022 Doxycycline Calcium Rash 09/22/2022 Penicillamine Other (see Comments) 09/22/2022 Penicillins Other (see Comments) 09/22/2022 Torsemide Rash 09/22/2022 Medications pantoprazole (PROTONIX) 40 MG Pack 40 mg by Per NG tube route 2 times daily. Active nadolol (CORGARD) 40 MG Tablet Take 40 mg by mouth daily. Active amLODIPine (NORVASC) 5 MG Tablet Take 5 mg by mouth daily. Active chlorthalidone (HYGROTON) 25 MG Tablet Take 12.5 mg by mouth daily. Active pregabalin (LYRICA) 50 MG Capsule Take 50 mg by mouth 3 times daily. Active atorvastatin (LIPITOR) 20 MG Tablet Take 20 mg by mouth every other day. TAKES PRIOR TO BED Active Insulin Degludec (TRESIBA SC) 50 Units by Subcutaneous route nightly. Active Insulin Aspart, w/Niacinamide, (Fiasp) 100 UNIT/ML Solution by Subcutaneous route 3 times daily. TAKES ON SLIDING SCALE PRIOR TO MEALS Active zolpidem (AMBIEN) 10 MG Tablet Take 10 mg by mouth nightly as needed. Active fluticasone-kevin meterol (ADVAIR) 250-50 MCG/ACT AEROSOL POWDER, BREATH ACTIVATED take 1 Puff by inhalation in the morning and at bedtime. Active ergocalciferol (VITAMIN D) 67599 UNIT Capsule Take 50,000 Units by mouth. Active aspirin EC 81 MG Tablet Delayed Response Take 81 mg by mouth daily. Active albuterol 108 (90 Base) MCG/ACT Aerosol Solution take 2 Puffs by inhalation every 4 hours as needed. Active Fluticasone Propionate (FLONASE NA) 2 Sprays by Nasal route daily. Active acetaminophen (TYLENOL) 500 MG Tablet Take 500 mg by mouth in the morning and at bedtime. Active Active Problems No known active problems Family History Medical History Relation Name Comments Chronic Obstructive Pulmonary Disease Father High Cholesterol Father Stroke Father Other-comment Mother PNEUMONIA Relation Name Status Comments Father Mother Social History Tobacco Use Types Packs/Day Years Used Date Smoking Tobacco: Every Day Cigarettes Smokeless Tobacco: Never Tobacco Cessation:Ready to Q uit: Yes; Counseling Given: Yes Alcohol Use Standard Drinks/Week Comments Not Asked 0 (1 standard drink = 0.6 oz pur e alcohol) OCCASSIONALLY Sex and Gender Information Value Date Recorded Sex Assigned at Not on file Legal Sex Male 11:52 AM CDT Gender Identity Not on file Sexual Orientation Not on file Last Filed Vital Signs Vital Sign Reading Time Taken Comments Blood Pressure 155/72 10/03/2022 12:25 PM CDT Pulse 65 10/03/2022 12:25 PM CDT Temperature 35.4 C (95.7 F) 10/03/2022 12:25 PM CDT Respiratory Rate 16 10/03/2022 12:25 PM CDT Oxygen Saturation 93% 10/03/2022 12:25 PM CDT Inhaled Oxygen Concentration - - Weight 91.2 kg (201 lb) 10/03/2022 7:43 AM CDT Height 180.3 cm (5' 11 ) 10/03/2022 7:43 AM CDT Body Mass Index 28.03 10/03/2022 7:43 AM CDT Plan of Treatment Health Maintenance Due Date Last Done Comments Hepatitis C Virus (HCV) Screening 1955 Pneumococcal Immunization (5 0+ years) (1 of 2 - PCV) 05/05/1974 Colonoscopy 05/05/2000 Colorectal Cancer Screening 05/05/2000 Cologuard 05/05/2005 Immunochemical Fecal Occult Blood 05/05/2005 Zoster Immunization (1 of 2) 05/05/2005 PSA Discussion 05/05/2010 Influenza Immunization (#1) 2023 SARS-COV-2 Immunization (2023- season) 2023 Respiratory Syncytial Virus (RSV) Immunization (Adult) (1 - 1-dose 75+ series) 05/05/2030 DTaP/Tdap/Td Immunization Discontinued 02/06/2017 TdaP Immunization Completed 02/06/2017 Hepatitis B Immunization Aged Out No longer eligible based on patient's age to complete this topic Meningococcal Immunization (ACWY) Aged Out No longer eligible based on patient's age to complete this topic Rotavirus Immunization Aged Out No lo nger eligible based on patient's age to complete this topic Medical Devices Implanted Type Area Oreman Device Identifier Shelf Expiration Date Model / Serial / Lot Implant Nasal 16mm Steroid Release Zip Tie Propel Mometasone Furoate 370 Mcg Mini 4mm - [id number] Implanted:Qty: 1 on 10/03/2022 by Lalito Acuña MD at [facility] IMPLANT Left: [employer] 09/28/2023 [id number] / [id number] Implant Nasal 16mm Steroid Release Zip Tie Propel Mometasone Furoate 370 Mcg Mini 4mm - [id number] Implanted:Qty: 1 on 10/03/2022 by Lalito Acuña MD at [facility] IMPLANT Right: [employer] 11/09/2023 [id number] / [id number] / [id number] Explanted Type Area Oreman Device Identifier Shelf Expiration Date Model / Serial / Lot Implant Nasal 16mm Steroid Release Zip Tie Propel Mometasone Furoate 370 Mcg Mini 4mm - [id number] Explanted:Qty: 1 on 10/03/2022 at [facility] IMPLANT Right: [employer] 09/28/2023 [id number] / [id number] / [id number] Insurance MEDICARE C [employer] Care Teams Journeyman Electrician Pv Installer Relationship Specialty Start Date End Date Provider, Not On File [place] PCP - General 10/03/22
== END 2024-04-03 10:05 | disposition home or self-care (01) ==
PROVIDERS: PCP Internal Medicine; Visit Provider Internal Medicine Hematology & Oncology
DX: C22.0 Liver cell carcinoma (principal); K80.20 Calculus of gallbladder without cholecystitis without obstruction; R16.1 Splenomegaly, not elsewhere classified; K74.69 Other cirrhosis of liver
CPT/HCPCS: 74177; Q9967

== ENCOUNTER 2024-05-08 12:48 | Outpatient (CLI) | payer MEDICARE, SELFPAY ==
--- OUTSIDE RECORDS SUMMARY | 2024-05-08 14:20 | XMS_ITS | Encounter Summary ---
Author Organization [facility] Health Address [address] [place] [address] Care Team Providers Care Oil Well Engineer Name Role Phone Shay Hooper MD Primary Care Provider Encounter Details Date Type Department Care Team (Late st Contact Info) Description 08/01/2018 [facility] Outpatient Visit [facility] [address] [place] [address] Edwin Horner MD [address] [place] [phone] Social History Tobacco Use Types Packs/Day [...] Care Team (Late st Contact Info) Description 05/08/2025 11:00 AM CDT Office Visit [facility] [place] [address] [facility], [place] [address] Phyllis Pereira, REGROOVER-BAND SAWING MACHINE OPERATOR [address] [place] [address] [facility] [place] [address] documented as of this encounter Visit Diagnoses Not on filedocumented in this encounter Care Teams Oil Well Engineer Relationship Specialty Start Date End Date Shay Hooper MD [address] [phone] PCP - General Internal Medicine 11/14/17 documented as of this encounter
--- OUTSIDE RECORDS SUMMARY | 2024-05-08 14:20 | XMS_ITS | Clinical Summary ---
Author Organization [facility] Address [address] [place] [address] Care Team Providers Care Data Modeler Name Role Phone Shay Hooper MD Primary Care Provider Source Comments [facility],non-owned Affiliates and Associated Physician Practices is amultiple site organization consisting of ambulatory clinics and hospital sitesin [place], [place], [place] and [place]. This disclosure is being madepursuant to the Care Everywhere program and may not contain all information available regarding this patient. Last updated 17.[facility] Allergies Active Allergy Reactions Criticality Noted Date [...] Encounters Date Type Department Care Team Description 05/08/2024 11:30 AM CDT Office Visit [facility] - [address] [place] [address], [place] [address] Phyllis Pereira, ARMIN-HOME CARE MUSIC THERAPIST 05/08/2024 Travel from Last 3 Months Family History Medical History Relation Name Comments CAD (Coronary Artery Disease) Father CVA Father CVA Sister Cancer - Breast Sister Relation Name Status Comments Brother Father Mother Sister Alive Social History Tobacco Use Types Packs/Day Years Used Date Smoking Tobacco: Every Day Cigarettes 1 12.2 Started: 2012 Smokeless Tobacco: Never Tobacco Cessation:Ready to Q uit: Not Asked; Counseling Given: Not Answered Alcohol Use Standard Drinks/Week Comments Not Currently 0 (1 standard drink = 0.6 oz pur e alcohol) ocassional beer/nahid Sex and Gender Information Value Date Recorded Sex Assigned at Not on file Gender Identity Not on file Sexual Orientation Not on file Last Filed Vital Signs Vital Sign Reading Time Taken Comments Blood Pressure 139/54 05/08/2024 12:13 PM CDT Pulse 62 05/08/2024 12:13 PM CDT Temperature 36.6 C (97.9 F) 05/08/2024 12:13 PM CDT Respiratory Rate 18 07/10/2022 11:07 AM CDT Oxygen Saturation 100% 05/08/2024 12:13 PM CDT Inhaled Oxygen Concentration - - Weight 91.6 kg (202 lb) 07/17/2023 1:11 PM CDT Height 180.3 cm (5' 11 ) 05/08/2024 12:13 PM CDT Body Mass Index 28.17 12/29/2019 10:36 AM BUSINESS REPORTER Plan of Treatment Upcoming Encounters Date Type Department Care Team (Late st Contact Info) Description 05/08/2025 11:00 AM CDT Office Visit [facility] - [place] [address] [facility], [place] [address] Phyllis Pereira, EP SPECIALIST-HOME CARE MUSIC THERAPIST [address] [facility] [place] [address] Health Maintenance Due Date Last Done Comments COLOGUARD (AGES 45-75) - COLON CA SCREENING 1955 COLON MONITORING 1955 COLONOSCOPY [...] series) 2015 AAA SCREENING 05/05/2020 COVID-19 VACCINE ( season) 2023 INFLUENZA VACCINE (#1) 2023 DEPRESSION SCREENING 02/27/2024 MEDICARE AWV CALENDAR YEAR 2024 SCREENING FOR DIABETES 05/08/2024 9, 08/07/2018, 08/07/2018, Additional history exists HIB VACCINE Aged Out No longer eligi ble based on patient's age to complete this topic HPV VACCINE Aged Out No longer eligi ble based on patient's age to complete this topic MENINGOCOCCAL (Group B) VACCINE SHARED DECISION-MAKING Aged Out No longer eligible based on patient's age to complete this topic MENINGOCOCCAL GROUPS A/C/Y/W VACCINE Aged Out No longer eligible based on patient's age to complete this topic Goals Goal Patient Goal Type Associated Problems Recent Progress Patient-Stated? Author Medication Management General On track( 025 12:09 PM CDT) No Rogelio Coleman, RN Note: Expected end date: Interventions: Take all medications as prescribed Let your doctor know right away about any changes in your medications Make sure to request a refill of your medication at least one week prior to your last dose Safety General On track( 025 12:09 PM CDT) No Edita Hamilton RN Note: Expected end date: ongoing Interventions: Your nurse will assess your risk for falls/injury each visit Use appropriate and safe transfer methods Make sure appropriate safety devices are available and within reach Be aware of medications that could predispose you to falling Wear non-skid/rubber sole footwear Wear glasses/hearing aid Keep personal items within easy reach Keep walking paths clutter free and clear Maintain an unobstructed path to the bathroom Medical Devices Implanted Type Area Helminthologist Device Identifier Shelf Expiration Date Model / Serial / Lot Patch Tien Eptfe 1 X 9 X .5mm - [id number] Implanted:Qty: 1 on 08/07/2018 by Angelo Wu MD at [facility] Right: Carotid [employer] 05/30/2023 [id number] / Procedures Procedure Name Priority Date/Time Associated Diagnosis Comments GLUCOSE - POINT OF CARE Routine 08/08/2018 7:16 AM CDT from Last 3 Months or Most Recently Relevant to Health Maintenance Results * (ABNORMAL) GLUCOSE - POINT OF CARE (08/08/2018 7:16 AM CDT) Pathologist [facility] Glucose WB/POC 265(H) 70 - 106 mg/dL [...] MD LAB - POINT OF CARE ORDERABLES [facility] [address] [place] [address] from Last 3 Months or Most Recently Relevant to Health Maintenance Advance Directives * Full Code (Latest Code Status on File) Date Activated Date Inactivated Comments 08/07/2018 5:20 PM 08/08/2018 1:06 PM Care Teams Data Modeler Relationship Specialty Start Date End Date Shay Hooper MD [address] [facility] [address] [place] [address] PCP - General Internal Medicine 11/14/17
--- OUTSIDE RECORDS SUMMARY | 2024-05-08 14:20 | XMS_ITS | Encounter Summary ---
Author Organization [facility] Address [address] [place] [address] Care Team Providers Care Interlocking Machine Operator Name Role Phone Shay Hooper MD Primary Care Provider Encounter Details Date Type Department Care Team (Late st Contact Info) Description 10/23/2018 Lab Requisition [facility] [address] [place] [address] Luna Hernandez MD [address] [place] [address] Illness Social History Tobacco Use Types Packs/Day [...] Description 05/08/2025 11:00 AM CDT Office Visit [facility] - [place] [address] [facility], [place] [address] Phyllis Pereira, CUSTOMER COUNTER REPRESENTATIVE-FREIGHT CLERK [address] [facility] [address] [place] [address] documented as of this encounter Procedures Procedure Name Priority Date/Time Associated Diagnosis Comments PATHOLOGY TISSUE Routine 10/22/2018 3:19 PM CDT Illness documented in this encounter Results * PATHOLOGY TISSUE (10/22/2018 3:19 PM CDT) Case Report Surgical Pathology Report Case: [id number] Authorizing Provider: Luna Hernandez MD Collected: 10/22/2018 03:19 PM Ordering Location: [facility] Received: 10/23/2018 03:19 PM Pathologist: Floyd Rodriguez MD Specimen: Slide Consultation, [id number] 10/24/2018 10:17 AM T [facility] Final Diagnosis Urine, voided, thin prep, cytology: -Negative for high-grade urothelial neoplasia -Slight chronic inflammtion 10/24/2018 10:17 AM T [facility] Microscopic Description and Comment Performed. 10/24/2018 10:17 AM CDT [facility] Clinical History History of bladder cancer, cystoscopy negative. 10/24/2018 10:17 AM T [facility] Gross Description Prepared slides received from [place] [facility] labeled [id number]. All material will be returned. 10/24/2018 10:17 AM T [facility] Disclaimer The performance characteristics of all immunohistochemical and indirect immunofluorescence stains (if any) cited in this report were determined by the Histopathology Laboratory of [facility]. Some of these tests were developed by [...] attending (teaching) pathologist. 10/24/2018 10:17 AM CDT [facility] Embedded Images 10/24/2018 10:17 AM CDT [facility] Pathology/Cytolo gy SURGICAL PATHOLOGY CONSULTATION AND REPORT ON REFERRED SLIDES PREPARED ELSEWHERE / Unknown 10/22/2018 3:19 PM CDT 10/23/2018 3:19 PM CDT Luna Hernandez MD LAB - PATHOLOGY/CYTO LOGY ORDERABLES Performing Organization Address City/State/[facility] Co de Phone Number [facility] [address] [phone] documented in this encounter Visit Diagnoses Diagnosis Illness Other unknown and unspecified cause of morbidity or mortality documented in this encounter Care Teams Interlocking Machine Operator Relationship Specialty Start Date End Date Shay Hooper MD [address] [phone] PCP - General Internal Medicine 11/14/17 documented as of this encounter
--- OUTSIDE RECORDS SUMMARY | 2024-05-08 14:20 | XMS_ITS | Referral Summary ---
Author Organization [facility] Address [address] [facility] [place] [address] Care Team Providers Care Case Manager Name Role Phone Shay Hooper MD Primary Care Provider Source Comments [facility],non-owned Affiliates and Associated Physician Practices is amultiple site organization consisting of ambulatory clinics and hospital sitesin [place], [place], [place] and [place]. This disclosure is being madepursuant to the Care Everywhere program and may not contain all information available regarding this patient. Last updated 17.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 [place] [address] Goals Goal Patient Goal Type Associated Problems [...] track( 025 12:09 PM CDT) No Edita Hamilton, RN Note: Expected end date: ongoing Interventions: [...] the bathroom Medical Devices Implanted Type Area Fast Food Assistant Restaurant Manager Device Identifier Shelf Expiration Date Model / Serial / Lot Patch Tien Eptfe 1 X 9 X .5mm - [id number] Implanted:Qty: 1 on 08/07/2018 by Angelo Wu MD at [facility] Right: [employer] 05/30/2023 [id number] / [id number] / Procedures Procedure Name Priority Date/Time Associated Diagnosis Comments GLUCOSE - POINT OF CARE Routine 08/08/2018 7:16 AM CDT from Last 3 Months or Most Recently Relevant to Health Maintenance Results * (ABNORMAL) GLUCOSE - POINT OF CARE (08/08/2018 7:16 AM CDT) [facility] Glucose WB/POC 265(H) 70 - 106 mg/dL 08/08/2018 8:34 AM CDT [facility] Specimen Type Venous 08/08/2018 8:34 AM CDT [facility] Blood BLOOD SPECIMEN / Unknown 08/08/2018 7:16 AM CDT 08/08/2018 8:34 AM CDT Narrative [facility] - 08/08/2018 8:34 AM CDT (2) Provider Notified Angelo Wu MD LAB - POINT OF CARE ORDERABLES [facility] [id number] [id number] from Last 3 Months or Most Recently Relevant to Health Maintenance Advance Directives * Full Code (Latest Code Status on File) Date Activated Date Inactivated Comments 08/07/2018 5:20 PM 08/08/2018 1:06 PM Care Teams Case Manager Relationship Specialty Start Date End Date Shay Hooper MD [address] [facility] [address] [place] [address] PCP - General Internal Medicine 11/14/17
--- OUTSIDE RECORDS SUMMARY | 2024-05-08 14:20 | XMS_ITS | Data Portability ---
Author Organization [place] [facility] [place] [employer], Main Office Address [address] [place] [address] Care Team Providers Care Retail Service Lead Merchandiser Name Role Phone FLETCHER ALFREDO Role Player NETO HARRIS User Interface Designer SHAY HOOPER Primary Care Provider [phone] ROSA MARIA CASSIDY Hematology/Oncology [phone] CHANTELL KEARNS General Surgeon EMILIANO LOW Tie Sawyer Assessment Encounter Date Assessment Date Assessment LastModified by Organization Details LastModified Time 09/06/2023 09/06/2023 Procedure performed and dictated. No complications. He will follow up in 10 days. [email or web address] Not available 09/06/2023 11:55:22 09/25/2023 09/25/2023 status post excision lesion right flank and right side. Seborrheic keratosis by pathology. We will remove his sutures. Follow up p.r.n. [email or web address] Not available 09/25/2023 10:48:45 11/15/2023 11/15/2023 05/19/2022: Urine micro alb 57.8 CMP: BUN 21, Cr 1.40, GFR 51 TSH: WNL LIPIDS: WNL A1C 5.7 04/25/2022: CMP: BUN 23, Cr 1.50, GFR 47 Lipids: WNL TSH/FT4: WNL VIT D WNL 09/13/2022: A1C 5.9 MCV 97.4, PLT 116 Gluc 123, BUN 23, Cr 1.48, GFR 47 Urine micro alb 26.7 04/25/2022: CMP: BUN 23, Cr 1.50, GFR 47 Lipids: [facility] TSH/FT4: WNL VIT D [facility] 04/26/2022: PSA 1.0 09/13/2022: A1C 5.9 MCV 97.4, PLT 116 Gluc 123, BUN 23, Cr 1.48, GFR 47 Urine alb 26.7 03/14/2023: A1C 6.5 Urine micro alb 33.0 Gluc 125, BUN/Cr/GFR 125/1.51/46 PLT 143 07/04/2023: A1C 6.6 PLT 145L Gluc 175, BUN/Cr 25/1.54, GFR 45 Urine micro alb 25.7 Not available 11/14/2023 18:51:03 03/13/2024 03/13/2024 05/19/2022: Urine micro alb 57.8 CMP: BUN 21, Cr 1.40, GFR 51 TSH: [facility] LIPIDS: [facility] A1C 5.7 04/25/2022: CMP: BUN 23, Cr 1.50, GFR 47 Lipids: [facility] TSH/FT4: WNL VIT D [facility] 09/13/2022: A1C 5.9 MCV 97.4, PLT 116 Gluc 123, BUN 23, Cr 1.48, GFR 47 Urine micro alb 26.7 04/25/2022: CMP: BUN 23, Cr 1.50, GFR 47 Lipids: [facility] TSH/FT4: WNL VIT D [facility] 04/26/2022: PSA 1.0 09/13/2022: A1C 5.9 MCV 97.4, PLT 116 Gluc 123, BUN 23, Cr 1.48, GFR 47 Urine alb 26.7 03/14/2023: A1C 6.5 Urine micro alb 33.0 Gluc 125, BUN/Cr/GFR 125/1.51/46 PLT 143 07/04/2023: A1C 6.6 PLT 145L Gluc 175, BUN/Cr 25/1.54, GFR 45 Urine micro alb 25.7 03/12/2024: Dr Cassidy BUN 20, Cr 1.47, GFR 48, Gluc 175 H/H 9.5/28.5, PLT 124 03/13/2024: Dr Cassidy BUN 20, Cr 1.80, GFR 38, Gluc 182 [email or web address] Not available 03/13/2024 14:43:02 04/08/2024 04/08/2024 05/19/2022: Urine micro alb 57.8 CMP: BUN 21, Cr 1.40, GFR 51 TSH: WNL LIPIDS: WNL A1C 5.7 04/25/2022: CMP: BUN 23, Cr 1.50, GFR 47 Lipids: WNL TSH/FT4: WNL VIT D WNL 09/13/2022: A1C 5.9 MCV 97.4, PLT 116 Gluc 123, BUN 23, Cr 1.48, GFR 47 Urine micro alb 26.7 04/25/2022: CMP: BUN 23, Cr 1.50, GFR 47 Lipids: WNL TSH/FT4: WNL VIT D WNL 04/26/2022: PSA 1.0 09/13/2022: A1C 5.9 MCV 97.4, PLT 116 Gluc 123, BUN 23, Cr 1.48, GFR 47 Urine alb 26.7 03/14/2023: A1C 6.5 Urine micro alb 33.0 Gluc 125, BUN/Cr/GFR 125/1.51/46 PLT 143 07/04/2023: A1C 6.6 PLT 145L Gluc 175, BUN/Cr 25/1.54, GFR 45 Urine micro alb 25.7 03/12/2024: Dr Cassidy BUN 20, Cr 1.47, GFR 48, Gluc 175 H/H 9.5/28.5, PLT 124 03/13/2024: Dr Cassidy BUN 20, Cr 1.80, GFR 38, Gluc 182 I have reconciled the patient's medications post their discharge from inpatient facility. Not available 04/08/2024 12:53:23 Plan of Treatment Reminders Order Date Submit Date Provider Last Modified By Organization Details Last Modified Time Details Appointments Any 15 2024 01:15P Khadijah feliz MD Not available Not available Not available Lab CBC w/ auto diff 2024 025 [facility] (Lab), [address] [place], [address], 04/10/2024 13:14:18 CMP, serum or plasma 2024 025 [facility] (Lab), [address] [place], [address], 04/10/2024 13:14:17 lipid panel, serum [address] (Lab), [address] [place], [address], 04/09/2024 10:46:09 TSH, serum or plasma [address] (Lab), [address] [place], [address], 04/09/2024 10:46:09 T4, free, serum [address] (Lab), [address] [place], [address], 04/09/2024 10:46:09 microalbu min, urine [address] (Lab), [address] [place], [address], 04/09/2024 10:46:08 HbA1c (hemoglob in A1c), blood [address] (Lab), [address] [place], [address], 04/09/2024 10:46:08 vitamin B12 + folate, serum or blood [address] (Lab), [address] [place], [address], 04/09/2024 10:46:09 CBC w/ auto diff 2024 025 [facility] (Lab), [address] [place], [address], 03/21/2024 14:42:13 CMP, serum or plasma 2024 025 [facility] (Lab), [address] [place], [address], 03/13/2024 16:53:29 lipid panel, serum 2024 025 [facility] (Lab), [address] [place], [address], 03/13/2024 17:40:45 TSH, serum or plasma 2024 025 [facility] (Lab), [address] [place], [address], 03/13/2024 17:40:45 T4, free, serum 2024 025 [facility] (Lab), [address] [place], [address], 03/13/2024 17:40:45 microalbu min, urine 2024 025 [facility] (Lab), [address] [place], [address], 03/13/2024 17:40:45 HbA1c (hemoglob in A1c), blood 2024 025 [facility] (Lab), [address] [place], [address], 03/13/2024 17:40:45 vitamin B12 + folate, serum or blood 2024 025 [facility] (Lab), [address] [place], [address], 03/13/2024 17:40:45 CBC w/ auto diff 2023 024 [facility] (Lab), [address] [place], [address], 12/20/2023 15:49:47 CMP, serum or plasma 2023 024 [facility] (Lab), [address] [place], [address], 12/20/2023 15:49:47 lipid panel, serum 2023 024 [facility] (Lab), [address] [place], [address], 11/19/2023 15:35:42 TSH, serum or plasma 2023 024 [facility] (Lab), [address] [place], [address], 11/19/2023 15:29:38 T4, free, serum 2023 024 [facility] (Lab), [address] [place], [address], 11/19/2023 15:31:32 microalbu min, urine 2023 024 [facility] (Lab), [address] [place], [address], 11/19/2023 15:26:40 HbA1c (hemoglob in A1c), blood 2023 024 [facility] (Lab), [address] [place], [address], 11/19/2023 15:17:39 vitamin B12 + folate, serum or blood 2023 024 [facility] (Lab), [address] [place], [address], 11/19/2023 15:33:52 Referral nephrolog ist referral - Please call patient to schedule an appointme nt. Thank you. 2024 025 [place], [address] [address], [address], [place], [address], 04/29/2024 15:01:18 podiatris t referral - Please call patient to schedule an appointme nt. Thank you. 2024 025 BRENDA Pwoell DPM, [address] [facility], [address], [place], [address], 04/29/2024 14:31:43 endocrino logy referral - Please call patient to schedule an appointme nt. Thank you. 2024 025 [place], [address] , [place], [address], 04/29/2024 19:11:28 physical therapist referral - Please call patient to schedule an appointme nt. Thank you. 2024 025 [facility], [address], [place], [address], 04/29/2024 14:37:17 nephrolog ist referral 2024 025 [email or web address] [place], [address] [address], [address], [place], [address], 03/17/2024 09:19:19 podiatris t referral - Please call patient to schedule. 2024 025 [email or web address] López Powell DPM, [address] [facility], [address], [place], [address], 03/17/2024 09:19:54 cardiolog ist referral 2024 025 [email or web address] [place], [address] [address], [address], [place], [address], 03/17/2024 09:13:42 physical therapist referral - Please call patient to schedule 2024 025 [email or web address] [facility], [address], [place], [address], 04/29/2024 14:15:13 nephrolog ist referral 2023 024 [email or web address] [place], [address], [address], [place], [address], 11/15/2023 17:05:44 podiatris t referral - Please call patient to schedule. 2023 024 nevin Powell DPM, [address], [address], [place], [address], 12/20/2023 09:07:21 cardiolog ist referral 2023 024 [email or web address] [place], [address], [address], [place], [address], 11/20/2023 17:20:49 physical therapist referral - Please call patient to schedule 2023 024 [email or web address] [facility] Elvie Russell Physical [facility], [address], [place], [address], 03/17/2024 09:16:43 Procedures upper endoscopy procedure (EGD) (PROC) - Please call patient to schedule an appointme nt. Thank you. 2024 025 [email or web address] Madiha Mays MD, [address], [address], [place], [address], 04/29/2024 13:33:49 upper endoscopy procedure (EGD) (PROC) - Please call patient to schedule. 2024 025 [email or web address] Madiha Mays MD, [address], [address], [place], [address], 04/29/2024 14:16:03 upper endoscopy procedure (EGD) (PROC) - Please call patient to schedule. 2023 024 nevin Mays MD, [address] [facility], [address], [place], [address], 12/20/2023 09:07:01 Surgeries None recorded. Imaging None recorded. Medication Orders zolpidem 10 mg tablet 2024 025 [facility] #[id number], [address], [place], [address], 04/08/2024 13:07:52 zolpidem 10 mg tablet 2023 [facility] [facility] [address] [facility], [address] [place] [address], [place], [address], 11/15/2023 14:47:06 zolpidem 10 mg tablet 2023 024 [id number], [address], [place], [address], 11/15/2023 14:48:18 Patient TargetsNo targets recorded. Patient Instructions Encounter Date Encounter Id Patient Instructions Last Modified By Organization Details Last Modified Time 11/15/2023 [id number] dementia rating scale-2* Not available 11/15/2023 14:46:57 alcohol misuse* Not availa ble 11/15/2023 14:46:56 depression screening* Not available 11/15/2023 14:46:55 multi-dimensiona l health assessment questionnaire* Not available 11/15/2023 14:46:56 advance care planning: care instructions Not available 11/15/2023 14:46:50 advance directiv es: care instructions Not available 11/15/2023 14:46:50 [place] Advance Directives Not available 11/15/2023 14:46:50 Personalized a lt Plan and Screening Recommendations Advance Directives - Do you have one? No You have indicated that you are capable of preparing your advance care directive Advance Directives - Do we have your advance directive on file in your health record? Primary Prevention/Interven tion (prevents or decreases the chance of common diseases from occurring) Smoking Risk: Smoker Refer to attached smoking cessation handouts Alcohol Misuse Screening: Negative Weight: Appropriate Overwei ght continue your current weight loss efforts try to lose 5% of your body weight try to lose 10% of your body weight Physical activity: Need more exercise/physical activity minimum of 10-20 minutes of activity that causes mild breathlessness/day Nutrition: Good Average Refer to attached handout Heart-Healthy Diet: After Your Visit Fall Risk (screened today): High Refer to attached handout Preventing Falls: After your Visit Vaccines Pneumococcal: Ordered Recommended today Influenza: Your next one in the fall of this year Chronic Disease Risks Stroke: High Risk I have no recommendations Act kristina diagnosis, Continue current treatment plan Heart Attack: Low risk Intermediate Risk Clogging of the Arteries: Low risk Intermediate Risk Diabetes: High Risk Active diagnosis, Continue current treatment plan Secondary Prevention/Interven tion (detects treatable diseases before they may cause symptoms, disability, or ) Prostate Cancer Screening: No PSA screening necessary Colon Cancer Screening: Colonoscopy Date Screening Last Performed:2016 Eye Disease Screening: Ordered Recommended today Dementia Risk: Low Intermediate I have no recommendations Depression Screening: Negative [email or web address] Not available 11/14/2023 16:48:23 04/08/2024 [id number] Thank you for yo ur visit to our office today. We would like to request that you reach out to your referring or previous provider and request that they send us a Summary of Care in electronic form, so that we may have it on file in your medical record. At your visit, we had the medical records we needed to provide you with the best possible care; however, for insurance purposes, an electronic Summary of Care is beneficial. Thank you for your assistance in obtaining this information and we look forward to providing continued care to you. Please review your medication list from the Summary of Care for this visit. If there are any differences from what you are currently taking at home, please call us to discuss. [email or web address] Not available 04/08/2024 12:19:47 Homebound Status : {{Patient has an inability to leave the home without a taxing effort and assistance from another person Does not meet homebound status}} Required Home Health Services: {{none senior living, physical therapy, occupational therapy senior living, physical therapy senior living}} Durable Medical Equipment needed: {{cane walker walke r with seat manual wheelchair bedside commode oxygen}} Billing Guidelines CPT code 54818- Transitional Care Management services with moderate medical decision complexity (ysxb-df-urib visit within 14 days of discharge). CPT code 97971- Transitional Care Management services with high medical decision complexity (ffss-xo-tvas visit within 7 days of discharge). [email or web address] Not available 04/08/2024 12:19:47 Reason for Referral Tie Sawyer Referral for Ch ronic kidney disease Referring Physician: Shay Hooper Internal Medicine, Encounter Date: 11/15/2023 Software Licensing Specialist Referral for Type 2 diabetes mellitus without complication Please call patient to schedule. Referring Physician: Radha Brunson Medicine, Encounter Date: 11/15/2023 Physical Therapist Referral for Abnormal gait due to impairment of balance Please call patient to schedule Referring Physician: Radha Brunson, Encounter Date: 11/15/2023 User Interface Designer Referral for He art murmur Referring Physician: Radha Brunson, Encounter Date: 11/15/2023 Tie Sawyer Referral for Ch ronic kidney disease Referring Physician: Radha Brunson, Encounter Date: 03/13/2024 Software Licensing Specialist Referral for Type 2 diabetes mellitus without complication Please call patient to schedule. Referring Physician: Radha Brunson, Encounter Date: 03/13/2024 Physical Therapist Referral for Abnormal gait due to impairment of balance Please call patient to schedule Referring Physician: Radha Brunson, Encounter Date: 03/13/2024 User Interface Designer Referral for He art murmur Referring Physician: Radha Brunson Medicine, Encounter Date: 03/13/2024 Tie Sawyer Referral for Ch ronic kidney disease Please call patient to schedule an appointment. Thank you. Referring Physician: Shay Hooper Internal Medicine, Encounter Date: 04/08/2024 Software Licensing Specialist Referral for Type 2 diabetes mellitus without complication Please call patient to schedule an appointment. Thank you. Referring Physician: Shay Hooper Internal Medicine, Encounter Date: 04/08/2024 Physical Therapist Referral for Abnormal gait due to impairment of balance Please call patient to schedule an appointment. Thank you. Referring Physician: Shay Hooper Internal Medicine, Encounter Date: 04/08/2024 Endocrinology Referral for T ype 2 diabetes mellitus without complication Please call patient to schedule an appointment. Thank you. Referring Physician: Radha Brunson Medicine, Encounter Date: 04/08/2024 Results Created Date Observation Date Name Description Value Unit Range Abnormal Flag Note LastModifiedBy Organization Detail LastModifiedTime 09/21/19 24 09/20/2023 CT, abdom en, w/ contr ast No observ ation record ed. [address], [place], [address], 01/03/2024 09:22:04 09/24/19 24 09/24/2023 LDCT, chest , for lung cance r scree hemal No observ ation record ed. [address] [place], [address], 09/24/2023 14:39:55 09/24/19 24 09/24/2023 LDCT, chest , for lung cance r scree hemal No observ ation record ed. [address] ([employer]) [address] [place], [address], 01/03/2024 09:22:24 11/19/19 24 11/16/2023 trans -thor acic echoc ardio gram (TTE) (PROC ) No observ ation record ed. [email or web address] [facility] [address], [place], [address], 11/19/2023 12:20:42 11/19/19 24 11/16/2023 imagi ng/di agnos tic resul t No observ ation record ed. [address] [facility] [address], [place], [address], 01/07/2024 10:26:58 12/24/19 24 12/24/2023 CT, abdom en, w/ contr ast No observ ation record ed. [address] [address], [place], [address], 01/10/2024 10:01:50 01/18/20 24 01/18/2024 XR, chest No observ ation record ed. [address] [address], [place], [address], 05/01/2024 14:01:46 01/18/20 24 01/18/2024 imagi ng/di agnos tic resul t No observ ation record ed. [address] [address], [place], [address], 05/01/2024 14:04:53 01/19/20 24 01/19/2024 imagi ng/di agnos tic resul t No observ ation record ed. [address] [address], [place], [address], 05/01/2024 14:05:40 03/24/19 25 03/24/2024 XR, chest No observ ation record ed. [address] [address], [place], [address], 05/05/2024 11:08:49 03/24/19 25 03/24/2024 CT, angio gram, chest + abdom en + pelvi s, w/wo contr ast No observ ation record ed. [address], [place], [address], 05/05/2024 11:45:31 03/27/19 25 03/26/2024 stres s echoc ardio gram No observ ation record ed. [address], [place], [address], 05/05/2024 12:00:43 03/27/19 25 03/26/2024 stres s echoc ardio gram No observ ation record ed. [address], [place], [address], 05/05/2024 12:01:17 04/03/19 25 04/03/2024 CT, abdom en + pelvi s, w/o contr ast No observ ation record ed. [address], [place], [address], 05/05/2024 12:22:13 Result Notes None recorded. Problems Name Problem SNOMED Code Status Onset Date Resolution Date Notes Provider Name and Address Organization Details Recorded Time Osteonec rosis of head of femur 794356015 Active 2022 Shay hays MD [address], [address], [place], [address] , [facility] 18:35:50 Localize d, primary osteoart hritis of the hand 862924046 Active 2022 Mynor Judge MD [address], [address], [place], [address] , [place] 16:08:51 Moderate chronic obstruct kristina pulmonar y disease 609670914 Active 2022 Alfredo Fletcher MD [address], [address], [place], [address] , [place] 16:27:34 Posterio r rhinorrh ea 47134838 Active 2022 Alfredo Fletcher [facility] [address] [facility], [place], [address] , [facility] 3 14:49:21 Cirrhosi s of liver 32961307 Active Not Available [facility] 3 02:58:47 Cerebrov ascular accident 952144192 Active 2001 on disabilt iy for his stroke from about 12 years ago Not Available [facility] 3 02:58:47 Retinal artery occlusio n 697466426 Active 2020 Not Available [facility] 3 02:58:47 Gastroes ophageal reflux disease without esophagi tis 180081344 Active 2020 Not Available [facility] 3 02:58:47 Osteomye litis of ankle AND/OR foot 68455642 Completed 201809/17/2018 Not Available [facility] 3 02:58:48 Amputate d big toe 293174056 Active 2018 Not Available [facility] 3 02:58:48 Malignan t neoplasm of urinary bladder 727179595 Active 2016 Not Available [facility] 3 02:58:48 Peripher al arterial occlusiv e disease 183139357 Active 2018 Not Available [facility] 3 02:58:48 Diabetic peripher al neuropat hy 324340657 Active 2018 Not Available [facility] 3 02:58:48 Hyperlip idemia 65171363 Active 2020 Not Available [facility] 3 02:58:49 [facility] hyperten sampson 52220566 Active Not Available [facility] 3 02:58:49 Chronic kidney disease 189181936 Active 2020 Not Available [facility] 3 02:58:49 Smoker 09286209 Active 2020 Not Available [facility] 3 02:58:49 Thrombot ic thromboc ytopenic purpura 17838745 Active 2020 Not Available [facility] 3 02:58:49 Chronic sinusiti s 61019503 Active 2022 Lalito Acuña MD [address], [address], [place], [address] , [facility] [employer] [facility] 3 16:56:16 Serum alpha-fe toprotei n level above referenc e range 739571063 Active [facility]22 [facility] [employer] [facility] 3 10:07:32 Liver enzymes level above referenc e range 028823222 Active 2023 Shay hays MD [address], [address], [place], [address] , [facility] 4 15:50:50 Heart murmur 85472385 Active 2023 Shay hays MD [address], [address], [place], [address] , [facility] [employer] [facility] [employer] [facility] 4 15:50:50 Neuropat hy 150239684 Active 2023 Shay hays MD [address], [address], [place], [address] , [facility] [employer] [facility] 4 15:50:50 Anemia 010831518 Active 2023 Shay hays MD [address], [address], [place], [address] , [facility] 4 15:50:50 Serum vitamin B12 below referenc e range 688684368 Active 2023 Shay hays MD [address], [address], [place], [address] , [facility] [employer] [facility] 4 15:50:51 Abnormal gait due to impairme nt of balance 226754532 Active 2023 Shay hays MD [address], [address], [place], [address] , [place] [facility] 4 15:50:51 Skin tag 143297222 Active 2023 Chantell lomeli MD [address], [address], [place], [address] , [place] [facility] 4 13:28:53 Insomnia 513424272 Active 2023 Shay hays MD [address], [place], [address] , [facility] 4 14:42:13 Type 2 diabetes mellitus without complica tion 746510043 Active 2023 Shay hays MD [address], [address], [place], [address] , [place] [facility] 4 18:52:08 Liver mass 156716447 Active 2023 Shay hays MD [address], [place], [address] , [facility] 4 18:52:08 Pain in right hand 67376461182 9109 Active 2023 Shay hays MD [address], [place], [address] , [facility] 4 18:52:08 Skin lesion 56008720 Active 2023 Shay hays MD [address], [place], [address] , [place] [facility] 4 18:52:08 Upper respirat ory infectio n 66549881 Active 2023 Shay hays MD [address], [place], [address] , [place] [facility] 4 18:52:08 Hemorrho ids 44015153 Active 2023 Amador Webster CMA null, [place] [facility] [employer] [facility] 10:23:03 Notes:Medical History: Left CVA without residual hemiparesis 2005 Syncope 2022 Right retinal artery occlusion Bilateral tinnitus Left deviated nasal septum Rhinitis with multiple environmental allergies Chronic sinusitis Eosinophils 80/uL Bilateral gynecomastia Asbestos exposure 9888-2161 Nicotine use Mod COPD Left mid lung calcified granuloma Obesity T2DM with neuropathy Hyperlipidemia Hypertension EF 60% Mild LBBB HUY Hepatic steatosis/cirrhosis Portal venous hypertension Cholelithiasis Diverticulosis Umbilical/Bilateral inguinal hernias Left adrenal nodule CKD TTP Anemia Iron deficiency Vit D deficiency Cervicothoracic DDD Thoracic spondylosis Bilateral femoral head avascular necrosis Procedure History: Right knee surgeries 1993, 1994 Appendectomy 1995 Left cerebellar surgery for aneurysm 2005 Right carotid endarterectomy [address] Daniels 2016 Bilateral cataract extractions with IOL 2018 Sinus surgery 2022 Right chest port placement Problem Notes None recorded. Procedures Surgical History Date Name Laterality Status Provider Name and Address Organization Details Recorded Time 04/08/19 25 Transitional_Care_ Management completed Shay Hooper MD [address], [place], [address], [facility] [employer] [facility] [employer] [facility] 04/08/2024 14:02:49 11/15/19 24 Medicare Wellness CPT Code, subsequent completed Zac Sanders LPN [place] [employer] [facility] [employer] [facility] 11/14/2023 16:32:35 11/15/19 24 Advanced Care Planning completed Zac Sanders LPN [place] [employer] [facility] [employer] [facility] 11/15/2023 14:27:09 09/06/19 24 Blank Procedure completed Chantell hernandez MD [address], [address], [place], [address], [facility] [employer] [facility] [employer] [facility] 09/06/2023 11:55:11 09/20/19 23 Medicare Wellness CPT Code, subsequent completed Vivian Jacome RN [facility] [employer] [facility] 09/19/2022 14:17:19 08/08/19 19 carotid endarterectomy completed Not Available [facility] 04/26/2022 02:51:44 06/03/19 17 Treatment of bladder lesion completed Not Available [facility] 04/26/2022 02:51:44 07/01/19 16 Excisions - Specify completed Not Available [facility] 04/26/2022 02:51:44 07/20/19 13 Colonoscopy completed Not Available [facility] 04/26/2022 02:51:44 Eye Surgery completed Not Available [facility] 04/26/2022 02:51:44 Toe completed Not Available [facility] 04/26/2022 02:51:44 Knee Surgery completed Not Available [facility] 04/26/2022 02:51:44 Appendectomy completed Not Available [facility] 04/26/2022 02:51:44 Brain Surgery completed Not Available [facility] 04/26/2022 02:51:44 nasal endoscopy with maxillary antrostomy completed Iesha Culp RN [facility] 10/10/2022 08:49:43 surgical procedure on frontal sinus [facility] 10/10/2022 08:50:23 ethmoid sinusectomy completed MARIANA Turner [facility] 10/10/2022 08:50:33 endoscopic sphenoidotomy completed MARIANA Turner [facility] 10/10/2022 08:50:47 Cardiac Stent Placement completed EUFEMIA Padron [facility] 03/13/2024 14:31:56 Angioplasty completed EUFEMIA Padron [facility] 03/13/2024 14:32:07 Imaging Results Imaging Date Name Status LastModified by Organization Details LastModified Time 09/20/2023 CT, abdomen, w/ contrast completed [address] [facility] [address], [address], 01/03/2024 09:22:04 09/24/2023 LDCT, chest, for lung cancer screening completed [address] [place], [address], 09/24/2023 14:39:55 09/24/2023 LDCT, chest, for lung cancer screening completed [address] ([employer]) [address] [place], [address], 01/03/2024 09:22:24 11/16/2023 trans-thoracic echocardiogram (TTE) (PROC) completed [address] [facility] [address], [place], [address], 11/19/2023 12:20:42 11/16/2023 imaging/diagnostic result completed [address] [facility] [address], [place], [address], 01/07/2024 10:26:58 12/24/2023 CT, abdomen, w/ contrast completed [address], [address], 01/10/2024 10:01:50 01/18/2024 XR, chest completed [address], [address], 05/01/2024 14:01:46 01/18/2024 imaging/diagnostic result completed [address], [address], 05/01/2024 14:04:53 01/19/2024 imaging/diagnostic result completed [address], [address], 05/01/2024 14:05:40 03/24/2024 XR, chest completed [address], [address], 05/05/2024 11:08:49 03/24/2024 CT, angiogram, chest + abdomen + pelvis, w/wo contrast completed [address], [address], 05/05/2024 11:45:31 03/26/2024 stress echocardiogram completed [address], [address], 05/05/2024 12:00:43 03/26/2024 stress echocardiogram completed [address], [place], [address], 05/05/2024 12:01:17 04/03/2024 CT, abdomen + pelvis, w/o contrast completed [address], [place], [address], 05/05/2024 12:22:13 Procedure Notes None recorded. Medical Equipment None Reported. Allergies Allergen ID Allergen Name Allergen Category Reaction Reaction Severity Criticality Documentation Date Start Date Code Code System Note Provider Name and Address Organization Details Recorded Time 5276 Product containin g penicilli n (product) medicatio n Not available Not available Not available 04/26/2022 23855 8001 SNOMED Not Available [facility] 3 03:08:35 5277 doxycycli ne Not available Not available Not available Not available 04/26/2022 3640 RxNorm Not Available [facility] 3 03:08:35 5278 codeine medicatio n abdominal pain Not available Not available 04/26/2022 2670 RxNorm Not Available [facility] 3 03:08:35 80310 torsemide medicatio n rash moderate low 06/02/2022 54503 RxNorm EUFEMIA Tyson null, [place] - [facility] 3 10:43:49 Medications Name Sig Start Date Stop Date Status Note LastModified by Organization Details LastModified Time Singulair 10 mg tablet Take 1 tablet every day by oral route. 08/07 completed Not Available Not Available Not Available Santyl 250 unit/gram topical ointment 05/08 completed Not Available Not Available Not Available atorvasta tin 40 mg tablet TAKE 1 TABLET BY MOUTH ONCE DAILY active Not Available Not Available No t Available metformin 500 mg tablet Take 1 tablet twice a day by oral route. 08/01 completed Not Available Not Available Not Available megestrol 400 mg/10 mL (40 mg/mL) oral suspensio n TAKE 10 ML BY MOUTH ONCE DAILY 04/08 completed Not Available Not Available Not Available fluticaso ne 250 mcg-salme terol 50 mcg/dose blistr powdr for inhalatio n INHALE 1 DOSE BY MOUTH TWICE DAILY 03/13 completed Not Available Not Available Not Available gabapenti n 600 mg tablet Take 1 tablet 3 times a day by oral route. 05/08 completed Not Available Not Available Not Available doxycycli ne hyclate 100 mg capsule q12hr po as directed 08/19 completed Not Available Not Available Not Available atorvasta tin 20 mg tablet TAKE 1 TABLET BY MOUTH ONCE DAILY AT BEDTIME active Not Available Not Available No t Available clindamyc in HCl 300 mg capsule TAKE 1 CAPSULE BY MOUTH EVERY 8 HOURS UNTIL GONE 03/20 completed Not Available Not Available Not Available cetirizin e 10 mg tablet TAKE 1 TABLET BY MOUTH ONCE DAILY NEEDED active Not Available Not Available No t Available azithromy janiya 250 mg tablet TAKE 2 TABLETS (500 MG) BY ORAL ROUTE ONCE DAILY FOR 1 DAY THEN 1 TABLET (250 MG) BY ORAL ROUTE ONCE DAILY FOR 4 DAYS 07/18 completed Not Available Not Available Not Available Glucagon Emergency Kit 1 mg solution for injection INJECT 1 MG NEEDED FOR 1 DAY 05/30 completed Not Available Not Available Not Available ofloxacin 0.3 % eye drops 03/13 completed Not Available Not Available Not Available hydrocodo ne 5 mg-acetam inophen 325 mg tablet TAKE 1 TABLET BY MOUTH EVERY 4 HOURS NEEDED FOR MODERATE PAIN . DO NOT EXCEED 6 PER 24 HOURS 04/08 completed Not Available Not Available Not Available ondansetr on HCl 8 mg tablet TAKE 1 TABLET BY MOUTH EVERY 8 HOURS NEEDED FOR NAUSEA 04/08 completed Not Available Not Available Not Available FML Liquifilm 0.1 % eye drops,caleb pension INSTILL ONE DROP INTO OU BID 06/07 completed Not Available Not Available Not Available prednison e 5 mg tablet Take 1 tablet every day by oral route. 09/19 completed Not Available Not Available Not Available Mobic 7.5 mg tablet Take 1 tablet twice a day by oral route for 7 days. 05/08 completed Not Available Not Available Not Available clindamyc in HCl 150 mg capsule TAKE 1 CAPSULE BY MOUTH EVERY 6 HOURS UNTIL GONE 05/26 completed Not Available Not Available Not Available torsemide 10 mg tablet 11/08 completed Not Available Not Available Not Available Accu-Chek Softclix Lancets 07/05 completed Not Available Not Available Not Available amlodipin e 2.5 mg tablet Take 1 tablet every day by oral route for 90 days. 04/08 completed Not Available Not Available Not Available hydroxyzi ne HCl 50 mg tablet TAKE 1 TABLET BY MOUTH EVERY 8 HOURS NEEDED FOR ITCHING active Not Available Not Available No t Available acetamino phen 300 mg-codein e 30 mg tablet TAKE 1 TABLET BY MOUTH 4 TIMES DAILY NEEDED FOR PAIN 03/20 completed Not Available Not Available Not Available clopidogr el 75 mg tablet TAKE 1 TABLET BY MOUTH IN THE MORNING active Not Available Not Available No t Available chlorthal idone 25 mg tablet TAKE 1/2 (ONE-SHAYNE F) TABLET BY MOUTH IN THE MORNING 11/[address] Low stopped Not Available Not Available Not Available amlodipin e 5 mg tablet TAKE 1 TABLET BY MOUTH ONCE DAILY 03/13 completed Not Available Not Available Not Available sulfameth oxazole 800 mg-trimet hoprim 160 mg tablet TK 1 T PO BID FOR 7 DAYS 11/01 completed Not Available Not Available Not Available omeprazol e 40 mg capsule,d elayed release Take 1 capsule twice a day by oral route as directed for 30 days. active Not Available Not Available No t Available aspirin 81 mg tablet,de layed release TAKE 1 TABLET BY MOUTH IN THE MORNING 04/08 completed Not Available Not Available Not Available tramadol 50 mg tablet TAKE 1 TABLET BY MOUTH EVERY 4 TO 6 HOURS NEEDED NEEDED FOR PAIN 09/19 completed Not Available Not Available Not Available glimepiri de 2 mg tablet Take 1 tablet every day by oral route. 08/01 completed Not Available Not Available Not Available lidocaine -prilocai ne 2.5 %-2.5 % topical cream APPLY A DIME SIZE AMOUNT TO PORT ACCESS AREA ONCE WEEKLY 07/28 completed Not Available Not Available Not Available ketorolac 10 mg tablet TAKE 1 TABLET PO EVERY 6 HOURS active Not Available Not Available No t Available nadolol 20 mg tablet TAKE 1 TABLET BY MOUTH ONCE DAILY FOR 90 DAYS 05/26 completed Not Available Not Available Not Available oxycodone -acetamin ophen 5 mg-325 mg tablet 11/07 completed Not Available Not Available Not Available isosorbid e mononitra te ER 60 mg tablet,ex tended release 24 hr TAKE 1 TABLET BY MOUTH IN THE MORNING active Not Available Not Available No t Available propranol ol 10 mg tablet TAKE 1 TABLET BY MOUTH TWICE DAILY 05/20 completed Not Available Not Available Not Available prednisol one acetate 1 % eye drops,caleb pension INSTILL 1 DROP INTO EACH EYE 4 TIMES DAILY FOR 2 WEEKS 05/16 completed Not Available Not Available Not Available magnesium oxide 400 mg (241.3 mg magnesium ) tablet TAKE 1 TABLET BY MOUTH ONCE DAILY active Not Available Not Available No t Available pravastat in 10 mg tablet Take 1 tablet every day by oral route as directed for 30 days. active Not Available Not Available No t Available tamsulosi n 0.4 mg capsule 03/13 completed Not Available Not Available Not Available Kenalog 10 mg/mL suspensio n for injection IN OFFICE 07/[address] [facility]: [phone] - Not Available Not Available Not Available benzonata te 100 mg capsule TAKE 1 CAPSULE BY MOUTH THREE TIMES DAILY NEEDED 09/16 completed Not Available Not Available Not Available Xanax 0.25 mg tablet Take 1 tablet every day by oral route in the evening. 08/07 completed Not Available Not Available Not Available hydrocodo ne 7.5 mg-acetam inophen 325 mg tablet TAKE 1 TABLET BY MOUTH EVERY 4 HOURS NEEDED 11/27 completed Not Available Not Available Not Available cephalexi n 500 mg capsule 05/08 completed Not Available Not Available Not Available pantopraz ole 40 mg tablet,de layed release Take 1 tablet by mouth twice daily active Not Available Not Available No t Available erythromy janiya 5 mg/gram (0.5 %) eye ointment APPLY A SMALL AMOUNT TO LOWER LID AND UPPER LID OF LEFT EYE THREE TIMES PER DAY FOR 1 WEEK 07/20 completed Not Available Not Available Not Available warfarin 5 mg tablet TAKE 1 TABLET BY MOUTH ONCE DAILY 03/13 completed Not Available Not Available Not Available losartan 25 mg tablet TAKE 1 TABLET BY MOUTH ONCE DAILY 06/05 completed Not Available Not Available Not Available nicotine 21 mg/24 hr daily transderm al patch Apply 1 patch every day by transder mal route. 06/01 completed Not Available Not Available Not Available nitroglyc shanna 0.4 mg sublingua l tablet DISSOLVE ONE TABLET UNDER THE TONGUE EVERY 5 MINUTES NEEDED FOR CHEST PAIN. DO NOT EXCEED A TOTAL OF 3 DOSES IN 15 MINUTES active Not Available Not Available No t Available mupirocin calcium 2 % topical cream APPLY A SMALL AMOUNT TO THE AFFECTED AREA of toe ulcer BY TOPICAL ROUTE 3 TIMES PER DAY FOR 10 DAYS 09/16 completed Not Available Not Available Not Available betametha sone dipropion ate 0.05 % topical cream APPLY A THIN LAYER TO THE AFFECTED AREA(S) itchy skin BY TOPICAL ROUTE ONCE DAILY 08/19 completed Not Available Not Available Not Available aspirin 81 mg chewable tablet 05/08 completed Not Available Not Available Not Available nadolol 40 mg tablet Take 1 tablet by mouth once daily active Not Available Not Available No t Available hydroxyzi ne HCl 25 mg tablet TAKE 1 TABLET BY MOUTH EVERY 6 HOURS NEEDED FOR ITCHING 07/03 completed Not Available Not Available Not Available mupirocin 2 % topical ointment APPLY A SMALL AMOUNT TOPICALL Y TO AFFECTED AREAS OF ULCER TO TOE THREE TIMES DAILY 03/13 completed Not Available Not Available Not Available furosemid e 20 mg tablet TAKE 1 TABLET BY MOUTH ONCE DAILY 04/08 completed Not Available Not Available Not Available ergocalci ferol (vitamin D2) 1,250 mcg (50,000 unit) capsule TAKE 1 CAPSULE BY MOUTH ONCE A MONTH 09/19 completed Not Available Not Available Not Available Novolog U-100 Insulin aspart 100 unit/mL subcutane ous solution inject up to 80 units of insulin for TDD via insulin pump 11/07 completed Not Available Not Available Not Available azelastin e 137 mcg (0.1 %) nasal spray [place] 2 sprays twice a day by intranas al route. 11/07 completed Not Available Not Available Not Available levofloxa janiya 500 mg tablet TAKE 1 TABLET BY MOUTH ONCE DAILY FOR 7 DAYS 07/03 completed Not Available Not Available Not Available levofloxa janiya 750 mg tablet TAKE 1 TABLET BY MOUTH ONCE DAILY 07/18 completed Not Available Not Available Not Available zolpidem 10 mg tablet Take 1 tablet(s ) every day by oral route. 2024 active Not Available Not Available Not Avai lable methylpre dnisolone 4 mg tablets in a dose pack TAKE BY MOUTH DIRECTED ON INSIDE OF PACKAGE 07/03 completed Not Available Not Available Not Available albuterol sulfate HFA 90 mcg/actua tion aerosol inhaler INHALE 1 PUFF BY MOUTH EVERY 4 HOURS NEEDED active Not Available Not Available No t Available ipratropi um bromide 42 mcg (0.06 %) nasal spray [place] 1 spray 4 times a day by intranas al route as needed. 09/19 completed Not Available Not Available Not Available Caverject 20 mcg intracave rnosal solution INJECT 10 MCG IN PENIS DIRECTED 08/07 completed Not Available Not Available Not Available hydroxyzi ne HCl 10 mg tablet TAKE 1 TABLET BY MOUTH THREE TIMES DAILY NEEDED FOR ITCHING 07/03 completed Not Available Not Available Not Available cefdinir 300 mg capsule TAKE 1 CAPSULE BY MOUTH EVERY 12 HOURS FOR 10 DAYS 12/27 completed Not Available Not Available Not Available fluticaso ne propionat e 50 mcg/actua tion nasal spray,caleb pension USE 2 SPRAY(S) IN EACH NOSTRIL ONCE DAILY 04/08 completed Not Available Not Available Not Available lisinopri l 2.5 mg tablet TK 1 T PO QD active Not Available Not Available No t Available doxycycli ne hyclate 100 mg tablet Take 1 tablet twice a day by oral route as directed for 30 days. 08/01 completed Not Available Not Available Not Available calcitrio l 0.25 mcg capsule TAKE 1 CAPSULE BY MOUTH ONCE DAILY 05/12 completed Not Available Not Available Not Available gentamici n 0.1 % topical ointment 05/08 completed Not Available Not Available Not Available metoclopr amide 10 mg tablet TAKE 1 TABLET BY MOUTH EVERY 6 HOURS NEEDED FOR NAUSEA active Not Available Not Available No t Available neomycin- polymyxin -hydrocor t 3.5 mg-10,000 unit/mL-1 % ear drops,caleb p INSTILL 4 DROPS INTO AD QID 11/01 completed Not Available Not Available Not Available Pen Needle 31 gauge x 5/16 inject insulin up to 4 times daily at bedtime and before meals, ok to substitu te per insuranc e coverage 05/30 completed Not Available Not Available Not Available nitrofura ntoin monohydra te/macroc rystals 100 mg capsule TAKE 1 CAPSULE BY MOUTH TWICE DAILY active Not Available Not Available No t Available solifenac in 5 mg tablet TAKE 1 TABLET BY MOUTH ONCE DAILY active Not Available Not Available No t Available pregabali n 50 mg capsule TAKE 1 CAPSULE BY MOUTH THREE TIMES DAILY 2024 active Not Available Not Available Not Avai lable pregabali n 100 mg capsule TAKE 1 CAPSULE BY MOUTH ONCE DAILY IN THE MORNING FOR 30 DAYS 01/27 completed Not Available Not Available Not Available aspirin 12/06 completed Not Available Not Available Not Available Fish Oil 1 tablet daily 11/08 completed Not Available Not Available Not Available iron 1 tablet daily 11/08 completed Not Available Not Available Not Available glimepiri de 12/06 completed Not Available Not Available Not Available gabapenti n 08/19 completed 600 MG oral tablet one pill twice a day Not Available Not Available Not Available fluocinol one acetonide oil 0.01 % ear drops INSTILL 4 DROPS IN RIGHT EAR BID 09/06 completed Not Available Not Available Not Available Januvia 100 mg tablet TAKE 1 TABLET BY MOUTH EVERY DAY 06/07 completed Not Available Not Available Not Available Symbicort 160 mcg-4.5 mcg/actua tion HFA aerosol inhaler Inhale 2 puffs twice a day by inhalati on route. 07/20 completed Not Available Not Available Not Available Lantus Solostar U-100 Insulin 100 unit/mL (3 mL) subcutane ous pen Inject 33 units every day by subcutan eous route. 02/06 completed 33 units daily Not Available Not Available Not Available ropivacai ne (PF) 5 mg/mL (0.5 %) injection solution IN OFFICE 07/[address] [facility] [id number] 05-27 Not Available Not Available Not Available rivaroxab an 20 mg tablet Take 1 tablet every day by oral route. active Not Available Not Available No t Available Bydureon 03/20 completed Not Available Not Available Not Available Vascepa 1 gram capsule Take 2 capsules twice a day by oral route with meals for 30 days. 05/26 completed Not Available Not Available Not Available BD Insulin Syringe Ultra-Fin e 1 mL 31 gauge x 5/16 USE TO INJECT INSULIN 5 TIMES DAILY 07/28 completed Not Available Not Available Not Available ReliOn Pen [place] 32 gauge x 5/32 once daily uud 05/30 completed Not Available Not Available Not Available Levemir FlexTouch U-100 Insulin 100 unit/mL (3 mL) subcutane ous pen INJECT 50 UNITS SUBCUTAN EOUSLY ONCE DAILY 11/08 completed Not Available Not Available Not Available Touz[employer]o SoloStar U-300 Insulin 300 unit/mL (1.5 mL) subcutane ous pen INJECT 50 UNITS SUBCUTAN EOUSLY AT BEDTIME 03/13 completed Not Available Not Available Not Available Tresiba FlexTouch U-200 insulin 200 unit/mL (3 mL) subcutane ous pen Inject 40 units subcu at bedtime/ Ok to dispense 1 box of 3 syringes and do 90 day supply 08/06 completed Not Available Not Available Not Available Tresiba FlexTouch U-100 insulin 100 unit/mL (3 mL) subcutane ous pen INJECT 50 UNITS SUBCUTAN EOUSLY AT BEDTIME active Not Available Not Available No t Available Tresiba FlexTouch U-100 inject 30 units at bedtime 04/17 completed Not Available Not Available Not Available Procto-Me d HC 2.5 % topical cream perineal applicato r APPLY A THIN LAYER TO THE AFFECTED AREA(S) BY TOPICAL ROUTE 2-4 TIMESDAI LY active Not Available Not Available No t Available Accu-Chek Guide test strips use to check blood glucose 4 times a day before meals 2024 active Not Available Not Available Not Avai lable Accu-Chek Guide Glucose Meter Use to check glucose daily 07/05 completed Not Available Not Available Not Available Fiasp U-100 Insulin 100 unit/mL subcutane ous solution INJECT 20 UNITS SUBCUTAN EOUSLY THREE TIMES DAILY BEFORE MEAL(S) active Not Available Not Available No t Available Fiasp FlexTouch U-100 Insulin 100 unit/mL (3 mL) subcutane ous pen INJECT 15 UNITS SUB-Q THREE TIMES DAILY BEFORE MEALS 05/26 completed Not Available Not Available Not Available Bykylerreon BCise 2 mg/0.85 mL subcutane ous auto-inje ctor Inject 2 mg every week by subcutan eous route with meals for 30 days. 02/21 completed stopped until further notice-1 04/24/17 TQ Not Available Not Available Not Available Admelog U-100 Insulin lispro 100 unit/mL subcutane ous solution INJECT UP TO 80 UNITS INTO INSULIN PUMP DAILY 09/16 completed Not Available Not Available Not Available Admelog SoloStar U-100 Insulin lispro 100 unit/mL subcutane ous pen Inject 15 units 3 times a day by subcutan eous route before meals for 30 days. 09/11 completed Not Available Not Available Not Available Toujeo Max U-300 SoloStar 300 unit/mL (3 mL) subcutane ous insulin pen Inject 34 units at bedtime by subcutan eously route 08/01 completed Not Available Not Available Not Available Tresiba U-100 Insulin 100 unit/mL subcutane ous solution INJECT 50 UNITS SUBCUTAN EOUSLY AT BEDTIME active Not Available Not Available No t Available OneTouch Delica Plus Lancet 33 gauge 06/05 completed Not Available Not Available Not Available Franklin CastilloPen U-100 Insulin 100 unit/mL subcutane ous Inject 15 units 3 times a day by subcutan eous route before meals for 90 days. active Not Available Not Available No t Available Vitals Date Recorded Body height Body mass index (BMI) Body weight Body temperature Heart rate Respiratory rate Oxygen saturation Oxygen saturation in Arterial blood by Pulse oximetry Systolic blood pressure Diastolic blood pressure Provider Name and Address Organization Details Last Updated DateTime 4 177.8 cm 29 kg/m2 85795.6 6 g 97.2 [degF] 72 /min 14 /min 98 % 98 % 120 mm[Hg] 70 mm[Hg] Manju [facility] [employer] [facility] 4 11:10:30 Date Recorded Body height Body mass index (BMI) Body weight Body temperature Heart rate Respiratory rate Oxygen saturation Oxygen saturation in Arterial blood by Pulse oximetry Systolic blood pressure Diastolic blood pressure Provider Name and Address Organization Details Last Updated DateTime 4 177.8 cm 29 kg/m2 90404.6 6 g 98.6 [degF] 72 /min 12 /min 98 % 98 % 122 mm[Hg] 72 mm[Hg] Brooklyn Myers MA [facility] [employer] [facility] 4 10:31:23 Date Recorded Body height Body mass index (BMI) Body weight Body temperature Heart rate Oxygen saturation Oxygen saturation in Arterial blood by Pulse oximetry Systolic blood pressure Diastolic blood pressure Provider Name and Address Organization Details Last Updated DateTime 4 177.8 cm 26.7 kg/m2 48371.1 8 g 97.1 [degF] 71 /min 98 % 98 % 134 mm[Hg] 60 mm[Hg] Viridiana Carlos MA [facility] [employer] [facility] 4 14:23:10 Date Recorded Pain severity - 0-10 verbal numeric rating [Score] - Reported Provider Name and Address Organization Details Last Updated DateTime 11/15/2023 0 Zac Sanders LPN [facility] [employer] [facility] 11/15/2023 14:24:44 Date Recorded Body height Body mass index (BMI) Body weight Body temperature Heart rate Systolic blood pressure Diastolic blood pressure Provider Name and Address Organization Details Last Updated DateTime 5 177.8 cm 26.4 kg/m2 19453 g 97.6 [degF] 60 /min 100 mm[Hg] 50 mm[Hg] EUFEMIA Padron [facility] [employer] [facility] 5 14:31:24 Date Recorded Body height Body mass index (BMI) Body weight Body temperature Heart rate Oxygen saturation Oxygen saturation in Arterial blood by Pulse oximetry Pain severity - 0-10 verbal numeric rating [Score] - Reported Systolic blood pressure Diastolic blood pressure Provider Name and Address Organization Details Last Updated DateTime 5 177.8 cm 25.5 kg/m2 05064.4 4 g 97.6 [degF] 103 /min 96 % 96 % 0 130 mm[Hg] 58 mm[Hg] Yeni Chavez MA [facility] [employer] [facility] 5 12:23:09 Social History Question Answer Notes LastModified by Organization Details LastModified Time Tobacco Smoking Status Current Every Day Smoker Not Available [employer] 04/26/2022 02:49:19 Do You Have An Advance Directive? No Not Interested In Info Today [id number] Information not available 04/26/2022 What Is Your Level Of Alcohol Consumption? Occasional [id number] Information not available 04/26/2022 How Many Years Have You Consumed Alcohol? 50 [email or web address] Information not available 11/15/2023 Are You Blind Or Do You Have Difficulty Seeing? No MIGRATION.0301 [id number] Information not available 04/26/2022 Is Blood Transfusion Acceptable In An Emergency? Yes [email or web address] Information not available 11/15/2023 What Is Your Level Of Caffeine Consumption? None MIGRATION.0301 [id number] Information not available 04/26/2022 How Much Tobacco Do You Chew? None MIGRATION.0301 598724 Information not available 04/26/2022 In The 14 Days Before Symptom Onset, Have You Had Close Contact With A Laboratory-conf irmed COVID-19 While That Case Was Ill? No MIGRATION.0301 127730 Information not available 04/26/2022 In The 14 Days Before Symptom Onset, Have You Had Close Contact With A Person Who Is Under Investigation For COVID-19 While That Person Was Ill? No MIGRATION.0301 886242 Information not available 04/26/2022 Are You Currently Employed? No [email or web address] Information not available 11/15/2023 Are You Deaf Or Do You Have Serious Difficulty Hearing? No MIGRATION.0301 926726 Information not available 04/26/2022 What Type Of Diet Are You Following? REGULAR MIGRATION.0301 914569 Information not available 04/26/2022 Which Illicit Or Recreational Drugs Have You Used? None MIGRATION.0301 371435 Information not available 04/26/2022 Do You Or Have You Ever Used E-cigarettes Or Vape? Never Used Electronic Cigarettes MIGRATION.0301 688469 Information not available 04/26/2022 What Is The Highest Grade Or Level Of School You Have Completed Or The Highest Degree You Have Received? OH40977-5 MIGRATION.0301 959416 Information not available 04/26/2022 Do You Have An Electrostatic Air Filter? No Information not available 06/05/2022 What Is Your Occupation? Retired MIGRATION.0301 265387 Information not available 04/26/2022 How Many Days Of Moderate To Strenuous Exercise, Like A Brisk Walk, Did You Do In The Last 7 Days? 0 [email or web address] Information not available 11/15/2023 Have There Been Any Changes To Your Family Or Social Situation? No MIGRATION.0301 562600 Information not available 04/26/2022 What Is The Fluoride Status Of Your Home? Unknown MIGRATION.0301 240960 Information not available 04/26/2022 Are There Any Guns Present In Your Home? Yes MIGRATION.0301 074842 Information not available 04/26/2022 Do You Have A Humidifier? No Information not available 06/05/2022 Do You Use Insect Repellent Routinely? No MIGRATION.030 661928 Information not available 04/26/2022 Where Do You Live? SingleLevelHouse MIGRATION.030 709717 Information not available 04/26/2022 Presence Of Domestic Violence No [email or web address] Information not available 11/15/2023 Guns Present In The Home? Yes Information not available 11/15/2023 Are You Able To Care For Yourself? Yes [email or web address] Information not available 11/15/2023 Are You Blind Or Do Yo Have Difficulty Seeing? No Information not available 11/15/2023 Are You Deaf Or Do You Have Serious Difficulty Hearing? No [email or web address] Information not available 11/15/2023 General Stress Level? Low Information not available 11/15/2023 Live Alone Of With Others? With Others [email or web address] Information not available 11/15/2023 Do You Have A Medical Power Of Mobile Home Servicer? No MIGRATION.030 621632 Information not available 04/26/2022 Do You Have Moisture Problems In Your Home? No Information not available 06/05/2022 What Was The Date Of Your Most Recent Tobacco Screening? 04/08/2024 [email or web address] Information not available 04/08/2024 How Many Children Do You Have? 1 [email or web address] Information not available 11/15/2023 Have You Ever Been Counseled For Unhealthy Alcohol Use? No [email or web address] Information not available 11/15/2023 Do You Have Any Pets? Yes Dog Information not available 11/15/2023 Do You Use Protection During Sex? No [email or web address] Information not available 11/15/2023 What Is Your Relationship Status? MIGRATION.0301 227663 Information not available 04/26/2022 Do You Use Your Seat Belt Or Car Seat Routinely? Yes Information not available 11/07/2022 Are You Sexually Active? Yes [email or web address] Information not available 11/15/2023 Do You Have Smoke And Carbon Monoxide Detectors In Your Home? Yes MIGRATION.0301 039636 Information not available 04/26/2022 At What Age Did You Start Smoking Tobacco? 12 MIGRATION.0301 979658 Information not available 04/26/2022 Are You Passively Exposed To Smoke? Yes MIGRATION.0301 745437 Information not available 04/26/2022 Do You Or Have You Ever Used Smokeless Tobacco? Never Used Smokeless Tobacco MIGRATION.0301 117761 Information not available 04/26/2022 Are There Any Smokers In Your House? Yes MIGRATION.0301 816318 Information not available 04/26/2022 How Much Tobacco Do You Smoke? 1 PPD 3/4 Pack Information not available 07/20/2022 What Types Of Sporting Activities Do You Participate In? None [email or web address] Information not available 11/15/2023 Do You Feel Stressed (tense, Restless, Nervous, Or Anxious, Or Unable To Sleep At Night)? [id number] MIGRATION.0301 783759 Information not available 04/26/2022 Do You Use Any Illicit Or Recreational Drugs? No MIGRATION.0301 757956 Information not available 04/26/2022 Do You Use Sunscreen Routinely? No MIGRATION.0301 239063 Information not available 04/26/2022 Has Tobacco Cessation Counseling Been Provided? No [email or web address] Information not available 11/15/2023 How Many Years Have You Smoked Tobacco? 55 [email or web address] Information not available 06/27/2022 Have You Recently Traveled Abroad? No MIGRATION.0301 460137 Information not available 04/26/2022 Do You Or Have You Ever Used Any Other Forms Of Tobacco Or Nicotine? No MIGRATION.0301 340450 Information not available 04/26/2022 How Many Days In The Past Year Have You Consumed 5 Or More Drinks? 0 [email or web address] Information not available 11/15/2023 Sex: Male Functional Status Question Answer Note LastModified by Organizat ion Details LastModified Time Do you have difficulty walking or climbing stairs? No MIGRATION.2590023 026 Information not available 04/26/2022 Do you have transportation difficulties? No MIGRATION.9126281 026 Information not available 04/26/2022 Are you able to walk? YESWOREST MIGRATION.9981320 026 Information not available 04/26/2022 Do you have difficulty doing errands alone? No MIGRATION.9197166 026 Information not available 04/26/2022 Are you able to care for yourself? Yes MIGRATION.1094066 026 Information not available 04/26/2022 Do you have difficulty dressing or bathing? No MIGRATION.7764823 026 Information not available 04/26/2022 What is your exercise level? None MIGRATION.8119562 026 Information not available 04/26/2022 Mental Status Question Answer Note LastModified by Organizat ion Details LastModified Time Do you have difficulty concentrating, remembering or making decisions? No MIGRATION.[id number] 6 Information not available 04/26/2022 Family History Relationship Description Onset Age of this Age Resolved Age Notes LastModified by Organization Details LastModified Time Mother Pneumonia 70 MIGRATION.329 [id number] Not available 04/26/2022 02:51:48 Father Essential hypertension 62 MIGRATION.830 [id number] Not available 04/26/2022 02:51:48 Father Cerebrovascu lar accident MIGRATION.955 6110156 Not available 04/26/2022 02:51:48 Father Blood coagulation disorder [email or web address] Not available 2022 14:46:54 Medical History Condition Response ARTHRITIS Y USE OF BLOOD THINNERS Y VASCULAR DISEASE Y DIABETES, TYPE Y KIDNEY DISEASE Y PERIPHERAL VASCULAR DISEASE Y INSOMNIA Y HYPERTENSION Y MYOCARDIAL INFARCTION Y HIGH CHOLESTEROL / HYPERLIPIDEMIA Y CANCER: SPECIFY Y NEUROLOGICAL PROBLEMS Y ANEMIA/BLOOD DISORDER Y GERD/NAUSEA Y URINARY/BLADDER/KIDNEY PROBLEMS Y STROKE/TIA Y Immunizations Vaccine Type Date Status Note Provider Nam e and Address Organization Details Recorded Time Tdap 02/06/2017 completed Not Available [employer] 04/26/2022 03:08:26 Past Encounters Encounter ID Performer Location Encounter Start Date Encounter Closed Date Diagnosis/Indication Diagnosis SNOMED-CT Code Diagnosis ICD10 Code Diagnosis Note [id number] [facility] Med [facility] [address] [facility] [address] [place] [address] 05/20/2020 00:00:00 05/20/2020 16:55:08 [id number] _ATHENA_M IGRATION_ DEFAULT_1 _1 , 05/20/2020 00:00:00 05/20/2020 16:17:59 [id number] _ATHENA_M IGRATION_ DEFAULT_1 _1 , 09/16/2020 00:00:00 09/16/2020 15:23:08 [id number] [facility] Internal Med [facility] [address] [place] [address] Ave[address] [facility] 15 [place] [address] 10/19/2020 00:00:00 10/20/2020 11:54:38 [id number] _ATHENA_M IGRATION_ DEFAULT_1 _1 , 01/13/2021 00:00:00 01/13/2021 15:27:11 [id number] _ATHENA_M IGRATION_ DEFAULT_1 _1 , 05/12/2021 00:00:00 05/12/2021 15:01:10 [id number] [facility] Internal Med [facility] [address] [place], [place] [address]e., [address] [address] 05/26/2021 00:00:00 05/26/2021 14:55:02 [id number] [facility] Internal Med [facility] [address] [place], [place] [address]e., [address] [address] 11/08/2021 00:00:00 11/08/2021 14:54:21 [id number] [facility] Endo Elvie Russell [address] [place] [address] 12/15/2021 00:00:00 12/15/2021 21:42:48 [id number] Shay hays MD [facility] Internal Med [facility] [address] [place], [place] [address]., [address] [address] 05/16/2022 13:58:55 05/16/2022 14:33:54 Screening - NAD 941424221 Z13.9 C-scope: 10/16/16: Dr Nilda hernandez next in 10 years Get flu shot declined thisUTD Tdap 02/06/17Ge t COVID 19 vaccine done states that he does not want it as he does not believe in vaccine that was rushed thru', advised to follow CDC guidelines RTC in 4 monthsGet labsER if worsehe did verbalize his understand ing of above Heart murmur 28758164 R0 1.[address] Harris 08/08/2021 Type 2 anish betes mellitus without complication 747822832 E11.9 On trescibaOn Fiasp [address] Dhillon 06/02/[address] Powell podiatryNe eds to see eye MDGet labs from Dr Dhillon Essential hypertension 83430851 I10 On ASA Off lasixOff losartan 25mg daily On chlorthali done 25mg 1/[address] Low 10/04/2021 On nadolol 20mg dailyGet labsHe does see Dr Low 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.[address] Jorge 10/05/21, next in one yearGet repeat labs Malignant neoplasm of urinary bladder 585738690 C67.9 s/p surgery by Dr Daniels, in 06/[address] Daniels Smoker 75573633 F17.200 Advised to quit LDCT 09/26/2019 CT chest 06/06/2021 : Cirrhosis of the liverGet US AAA Liver enzy mes level above reference range 165089897 R74.[address] Silverio , but now sees Dr Brooks liver 05/17/2021 : cirrhosis, cholelithi asisGet labs Chronic ki dney disease 822563718 N18.9 Dr Low nephrology Neuropathy 314533966 G62 .9 Not on lyrica 50mg tidDoes well Gastroesop hageal reflux disease without esophagitis 575718644 K21.9 On pantaprozo leDoes wellTake as needed Hyperlipidemia 85228564 E78.5 On atorvastat in 20mg dailyNot on vascepaGet labs Insomnia 116475190 G47.0 0 On ambienDoes well Retinal ar amy occlusion 592238231 H34.9 Seen by [facility] Preston 05/07/18: Dr Coleman, noted to have a Hallenhors t plaqueKeep apt wtih Dr Collado who he now sees Anemia 041668984 D64.9 Is on ironDoes well Osteonecro sis of head of femur 921220064 M87.[address] Barfield 01/15/2020 , no surgery doneDoes well Right uppe r quadrant pain 783612716 R10.[address] Watson 01/15/2020 No surgery doneDoes well Serum brielle min B12 below reference range 745211939 R79.89 Pain in right hand 49968 86640 02693 M79.641 Abnormal g ait due to impairment of balance 439047794 R26.89 Feels that his gait is getting worse, he did have cerebellar surgery 17 years ago and feels that this contribute s to it, will get PT [id number] Mynor Judge MD [facility] Ortho Page [address] [place] [address] 06/27/2022 14:31:29 06/27/2022 15:06:26 Pain of bilateral hands [id number] 3586135 M79.641 M79.642 Localized, primary osteoarthritis of the hand 936113491 M19.049 we discussed different treatment options. Sterile technique standard protocol injected his right thumb CMC with 1 cc xylocaine 1 cc Kenalog. Provide patient with a well fitted thumb spica arthritis brace to help with pain. We will see him back in a few months for follow-up if no improvemen t consider CMC interposit ion arthroplas ty consider injection of his MCP joints as a 1st line of treatment in addition to anti-infla mmatory with appropriat e precaution [id number] Cindy Dhillon MD [facility] Endo [address] [place] [address] 06/02/2022 10:37:36 06/02/2022 11:15:29 Well controlled type 2 diabetes mellitus 254012123 E11.9 A1C of 5.6%- continue tresiba 50 units at bedtime and patient aware to increase or decrease by 6 units every 4 days to maintain fasting glucose of 90-130 mg/dL.Cont inue fiasp 1:5 plus correction of 2U:50>150 mg/dL prior to meals.He has trialed on humalog, lyumjev and novolog all in the past and these do not work well for patient he has to take 4-5 times a normal dose to maintain sugars in the low 200 mg /dl range and this doesn't even keep his glucose in goal range. Chronic ob structive pulmonary disease 57815967 J44.9 refer to pulmonolog y and obtain PFTs - patient chronic smoker- wheezy on examinatio n and has increased expiratory phase. Would benefit from overall pulm evaluation . Dyslipidemia 717321007 E 78.5 Continue statin therapy as LDL in range. Spent up to 28 minutes preparing to see the patient (eg, review of tests), obtaining and/or reviewing separately obtained history, performing a medically appropriat e examinatio n and evaluation , counseling and educating the patient, ordering medication s, tests, along with documentin g clinical informatio n in the electronic health record, independen tly interpreti ng results and communicat ing results to the patient. RTC in 6 months. Patient was provided a handwritte n lab order which contains our fax number. If he chooses to go outside of the [facility] system to obtain labwork he was advised to provide our fax number and my informatio n to the lab he will be obtaining labwork from in order to have his labs properly forwarded over for me to review so there is no loss of follow up due to use of outside network. He was also advised to contact our clinic informing us that he has completed his labwork so we are aware we will need to reach out to the appropriat e laboratory to request his results be forwarded to us so I might have the ability to review and make further medical decision making in his case. He voiced understand ing. [id number] Shay hays MD [facility] Internal Med Phill dhillon [address] [facility] [place] [address] 06/05/2022 14:29:35 06/05/2022 15:06:24 Screening - NAD 747951932 Z13.9 C-scope: 10/16/16: Dr Nilda hernandez next in 10 years Get flu shot declined thisUTD Tdap 02/06/17Ge t COVID 19 vaccine done states that he does not want it as he does not believe in vaccine that was rushed thru', advised to follow CDC guidelines RTC in 4 monthsGet labsER if worsehe did verbalize his understand ing of above Heart murmur 87157343 R0 1.[address] Harris Essential hypertension 45698784 I10 BP much better today 06/05/2022 On ASAOn amlodipine 5mg dailyOn chlorthali done 25mg 1/[address] Low 10/04/2021 On nadolol 20mg daily OK to renew 06/05/2022 Off lasixOff losartan 25mg daily as per Dr Harris 05/30/[address] Low [id number] Alfredo Fletcher MD [address] [address] 06/05/2022 15:34:48 06/06/2022 08:17:08 Dyspnea on exertion 13635081 R06.09 R05.9 T78.40XS D89.9 Smoker 32266301 F17.218 F17.219 Z87.891 [id number] Alfredo Fletcher MD [address] [address] 07/04/2022 15:25:42 07/05/2022 08:19:32 Smoker 50531741 F17.218 F17.219 Z87.891 Moderate c hronic obstructive pulmonary disease 756084587 J44.9 [id number] Alfredo Fletcher MD [address] [address] 07/20/2022 14:00:27 07/21/2022 08:30:46 Smoker 47065500 F17.218 F17.219 Z87.891 Moderate c hronic obstructive pulmonary disease 213112950 J44.9 J44.1 Posterior rhinorrhea 758 73224 R09.82 J01.90 [id number] Lalito Acuña MD [facility] ENT Page [address] [place] [address] 08/24/2022 11:44:23 08/24/2022 16:39:03 Chronic sinusitis 12078977 J32.9 [id number] Lalito Acuña MD [facility] ENT Page [address] [place] [address] 09/14/2022 12:25:09 09/14/2022 12:47:31 Chronic sinusitis 86576796 J32.9 Chronic ma xillary sinusitis 45032284 J32.0 Chronic et hmoidal sinusitis 88178965 J32.2 Chronic fr ontal sinusitis 01023563 J32.1 Chronic sp henoidal sinusitis 05704932 J32.3 [id number] Shay hays MD [facility] Internal Med [facility] [address] [facility] [place] [facility], Jeremy [address] [place] [address] 09/19/2022 13:55:53 09/19/2022 14:30:51 Screening - NAD 200050030 Z13.9 C-scope: 10/16/16: Dr Nilda hernandez next in 10 years Get flu shot declined thisUTD Tdap 02/06/17Ge t COVID 19 vaccine done states that he does not want it as he does not believe in vaccine that was rushed thru', advised to follow CDC guidelines RTC in 4 monthsGet labsER if worsehe did verbalize his understand ing of above Heart murmur 74616133 R0 1.[address] Harris Essential hypertension 27141917 I10 BP much better today 06/05/2022 On ASAOn amlodipine 5mg dailyOn chlorthali done 25mg 1/[address] Low 10/04/2021 On nadolol 20mg daily OK to renew 06/05/2022 Off lasixOff losartan 25mg daily as per Dr Harris 05/30/2022 Get labsHe does see Dr Low Type 2 anish betes mellitus without complication 970871793 E11.9 On trescibaOn Fiasp Sees Dr Dhillon 06/02/2022 next 11/27/[address] Powell podiatryNe eds to see eye MDGet labs from Dr Dhillon Thrombotic thrombocytopenic purpura 50295182 M31.[address] Jorge 10/05/21, next in one yearGet repeat labs Malignant neoplasm of urinary bladder 236632869 C67.9 s/p surgery by Dr Daniels, in 06/[address] Daniels Smoker 75033267 F17.200 Advised to quit LDCT 09/26/2019 CT chest 06/06/2021 : Cirrhosis of the liverGet US AAA Liver enzy mes level above reference range 907047312 R74.[address] Silverio , but now sees Dr Brooks liver 05/17/2021 : cirrhosis, cholelithi asisGet labs Chronic ki dney disease 445949369 N18.9 Dr Low nephrology Neuropathy 643448323 G62 .9 Not on lyrica 50mg tidDoes well Gastroesop hageal reflux disease without esophagitis 023693791 K21.9 On pantaprozo leDoes wellTake as needed Hyperlipidemia 06811160 E78.5 On atorvastat in 20mg dailyNot on vascepaGet labs Insomnia 369644157 G47.0 0 On ambienDoes well Retinal ar amy occlusion 186556368 H34.9 Seen by [facility] 05/07/18: Dr Coleman, noted to have a Hallenhors t plaqueKeep apt wtih Dr Collado who he now sees Anemia 140572104 D64.9 Is on ironDoes well Osteonecro sis of head of femur 550010781 M87.[address] Barfield 01/15/2020 , no surgery doneDoes well Right uppe r quadrant pain 824537593 R10.[address] Watson 01/15/2020 No surgery doneDoes well Serum brielle min B12 below reference range 342350243 R79.89 Pain in right hand [address] 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 Abnormal g ait due to impairment of balance 596125157 R26.89 Feels that his gait is getting worse, he did have cerebellar surgery 17 years ago and feels that this contribute s to it, will get PT Adult heal th examination 870487281 Z00.00 Screening for disorder 709007570 Z13.9 [id number] Lalito Acuña MD [facility] ENT Elvie Russell [address] [place] [address] 10/12/2022 12:28:40 10/12/2022 13:42:07 Chronic sinusitis 85605762 J32.9 [id number] Alfredo Fletcher MD [facility] Pulmonolo gy [address] [place] [address] 11/07/2022 14:00:11 11/08/2022 09:18:46 Smoker 01388794 F17.218 F17.219 Z87.891 Moderate c hronic obstructive pulmonary disease 247207373 J44.9 J44.1 Posterior rhinorrhea 758 57798 R09.82 [id number] Cindy Dhillon MD [facility] Endo Elvie Russell [address] [place] [address] 11/27/2022 14:43:15 11/27/2022 15:48:01 Well controlled type 2 diabetes mellitus 246427602 E11.9 A1C of 5.7%- continue tresiba 50 units at bedtime and patient aware to increase or decrease by 6 units every 4 days to maintain fasting glucose of 90-130 mg/dL. Continue fiasp 1:5 plus correction of 2U:50>150 mg/dL prior to meals.He has trialed on humalog, lyumjev and novolog all in the past and these do not work well for patient he has to take 4-5 times a normal dose to maintain sugars in the low 200 mg /dl range and this doesn't even keep his glucose in goal range. Refer to endocrinol ogy per patient request. Dyslipidemia 841659173 E 78.5 Continue statin therapy as LDL in range. Spent up to 25 minutes preparing to see the patient (eg, review of tests), obtaining and/or reviewing separately obtained history, performing a medically appropriat e examinatio n and evaluation , counseling and educating the patient, ordering medication s, tests, along with documentin g clinical informatio n in the electronic health record, independen tly interpreti ng results and communicat ing results to the patient. Patient can be followed by PCP - she/he is aware of my resignatio n and last day of December 08. If needed his/her PCP can refer patient to another endocrinol ogist in the area. All questions /concerns answered and refills necessary at visit today. [id number] Lalito Acuña MD [facility] ENT Page [address] [place] [address] 12/07/2022 16:27:51 12/08/2022 14:58:09 Chronic sinusitis 91705820 J32.9 [id number] Shay hays MD [facility] Internal Med Phill dhillon [address] [facility] , [facility] [place] [address] 12/27/2022 11:27:41 12/27/2022 11:49:29 Abdominal pain 48668129 R10.[address] scan abd/pelvis , stat hold and callMay need to go to ER if not better, he is agreeable to this plan of care Addendum: 12/27/2022 :CT A/P; noted, needs to see GI hepatologi st, concern for masses Liver mass 581905678 R16 .0 Get a referral to oncologist CT A/P 12/27/2022 [id number] Shay hays MD [facility] Internal Med [facility] 15 [address] [facility] 15 [place] [address] 03/20/2023 14:10:52 03/22/2023 11:39:53 Liver mass 461388953 R16.0 Get a referral to oncologist CT A/P 12/27/[address] 01/04/2023 MRI Abd: 01/27/2023 CT 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/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 Dr Cassidy 01/02/2023 Screening - NAD 65153177 3 Z13.9 C-scope: 10/16/16: Dr Nilda hernanedz next in 10 years Get flu shot declined thisUTD Tdap 02/06/17Ge t COVID 19 vaccine done states that he does not want it as he does not believe in vaccine that was rushed thru', advised to follow CDC guidelines Can do RSV vaccine RTC in 4 monthsGet labsER if worsehe did verbalize his understand ing of above Heart murmur 77064967 R0 1.[address] Harris Essential hypertension 90618887 I10 BP much better today 06/05/2022 On ASAOn amlodipine 5mg dailyOn chlorthali done 25mg 1/[address] Low 10/04/2021 On nadolol 20mg daily OK to renew 06/05/2022 Off lasixOff losartan 25mg daily as per Dr Harris 05/30/2022 Get labsHe does see Dr Low Type 2 anish betes mellitus without complication 675646663 E11.9 On trescibaOn Fiasp Sees Dr Dhillon 06/02/2022 next 11/27/[address] Powell podiatryNe eds to see eye MDGet labs from Dr Dhillon Thrombotic thrombocytopenic purpura 69651108 M31.[address] Jorge 10/05/21No w sees Dr Jimenez repeat labs Malignant neoplasm of urinary bladder 696883034 C67.9 s/p surgery by Dr Daniels, in 06/[address] Daniels Smoker 20787644 F17.200 Advised to quit LDCT 09/26/2019 CT chest 06/06/2021 : Cirrhosis of the liverGet AAA Liver enzy mes level above reference range 050372976 R74.[address] Silverio , but now sees Dr Brooks liver 05/17/2021 : cirrhosis, cholelithi asisGet labs Chronic ki dney disease 715881124 N18.9 Dr Low nephrology Neuropathy 640884517 G62 .9 Not on lyrica 50mg tidDoes well Gastroesop hageal reflux disease without esophagitis [id number] K21.9 On pantaprozo leDoes wellTake as needed Hyperlipidemia 37423337 E78.5 On atorvastat in 20mg dailyNot on vascepaGet labs Insomnia 752477056 G47.0 0 On ambienDoes well Retinal ar amy occlusion 320542109 H34.9 Seen by Retina Preston 05/07/18: Dr Coleman, noted to have a Hallenhors t plaqueKeep apt wtih Dr Collado who he now sees Anemia 541782741 D64.9 Is on ironDoes well Osteonecro sis of head of femur 267231290 M87.[address] Barfield 01/15/2020 , no surgery doneDoes well Serum brielle min B12 below reference range 292622096 R79.89 Pain in right hand [address] 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 Abnormal g ait due to impairment of balance 816196591 R26.89 Feels that his gait is getting worse, he did have cerebellar surgery 17 years ago and feels that this contribute s to it, will get PT OV 03/20/2023 : Get PT renewed [id number] Shay hays MD [facility] Phill dhillon [address] [place] [address] 07/04/2023 10:01:55 07/04/2023 10:55:29 Screening - NAD 577710574 Z13.9 C-scope: 10/16/16: Dr Nilda hernandez next in 10 years Get flu shot declined thisUTD Tdap 02/06/17Ge t COVID 19 vaccine done states that he does not want it as he does not believe in vaccine that was rushed thru', advised to follow CDC guidelines Can do RSV vaccine RTC in 4 monthsGet labsER if worsehe did verbalize his understand ing of above Liver mass 291777721 R16 .0 Get a referral to oncologist CT A/P 12/27/[address] 01/04/2023 MRI Abd: 01/27/2023 CT 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/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CT A/P 06/29/2023 : Dr Khanh Cassidy will see 07/06/2023 Heart murmur 32730649 R0 1.[address] Harris Essential hypertension 02359983 I10 BP much better today 06/05/2022 On ASAOn amlodipine 5mg dailyOn chlorthali done 25mg 1/[address] Low 10/04/2021 On nadolol 20mg daily OK to renew 06/05/2022 Off lasixOff losartan 25mg daily as per Dr Harris 05/30/2022 Get labsHe does see Dr Low Type 2 ainsh betes mellitus without complication 874796049 E11.9 On trescibaOn Fiasp Sees Dr Dhillon 06/02/2022 next 11/27/[address] Powell podiatryNe eds to see eye MDGet labs from Dr Dhillon Thrombotic thrombocytopenic purpura 00005007 M31.[address] Jorge 10/05/21No w sees Dr Jimenez repeat labs Malignant neoplasm of urinary bladder 998181182 C67.9 s/p surgery by Dr Daniels, in 06/[address] Daniels Smoker 87651351 F17.200 Advised to quit LDCT 09/26/2019 CT chest 06/06/2021 : Cirrhosis of the liverGet AAA Liver enzy mes level above reference range 395839098 R74.[address] Silverio , but now sees Dr Ledezma liver 05/17/2021 : cirrhosis, cholelithi asis Get labs Chronic ki dney disease 668093215 N18.9 Dr Low nephrology Neuropathy 143729839 G62 .9 On lyrica 50mg tid Does well Gastroesop hageal reflux disease without esophagitis 668977104 K21.9 On pantaprozo leDoes wellTake as needed Hyperlipidemia 86084069 E78.5 On atorvastat in 20mg dailyNot on vascepa Get labs Insomnia 262186057 G47.0 0 On ambienDoes well Retinal ar amy occlusion 040140047 H34.9 Seen by Retina Preston 05/07/18: Dr Coleman, noted to have a Hallenhors t plaque Keep apt wtih Dr Collado who he now sees Anemia 262955095 D64.9 Is on iron Does well Osteonecro sis of head of femur 615648180 M87.[address] Barfield 01/15/2020 , no surgery done Does well Serum brielle min B12 below reference range 492615571 R79.89 Pain in right hand [address] Jduge 06/27/2022 Abnormal g ait due to impairment of balance 354513870 R26.89 Feels that his gait is getting worse, he did have cerebellar surgery 17 years ago and feels that this contribute s to it, will get PT OV 03/20/2023 : Get PT renewed Upper resp iratory infection 95555807 J06.9 Get xray chestGet on z-pack, flonase and claritinDo es not want to do COVID 19 RT PCR or strep or fluER if worse Addendum: 07/04/2023 : Case sent Skin lesion 92190443 L98 .9 Multiple slightly raised dark macules noted on the R>L abd wallRefer to Dr Watson [id number] Chantell lomeli MD [facility] General Surgery [address] [place] [address] 07/10/2023 11:14:23 07/25/2023 16:22:10 Skin tag 138017347 L91.8 [id number] Shay hays MD [facility] Internal Med [address] [place] [address] 07/19/2023 14:15:12 07/19/2023 14:46:44 Liver mass 086893143 R16.0 Get a referral to oncologist CT A/P 12/27/[address] 01/04/2023 MRI Abd: 01/27/2023 CT 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/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CT A/P 06/29/2023 : Dr Khanh Cassidy 07/06/2023 , f/u in 3 weeks Screening - NAD 31264730 3 Z13.9 C-scope: 10/16/16: Dr Nilda hernandez next in 10 years Get flu shot declined thisUTD Tdap 02/06/17Ge t COVID 19 vaccine done states that he does not want it as he does not believe in vaccine that was rushed thru', advised to follow CDC guidelines Can do RSV vaccine RTC in 4 monthsGet labsER if worsehe did verbalize his understand ing of above Heart murmur 73370120 R0 1.[address] Harris Essential hypertension 59832586 I10 BP much better today 06/05/2022 On ASAOn amlodipine 5mg dailyOn chlorthali done 25mg 1/[address] Low 10/04/2021 On nadolol 20mg daily OK to renew 06/05/2022 Off lasixOff losartan 25mg daily as per Dr Harris 05/30/2022 Get labsHe does see Dr Low Type 2 anish betes mellitus without complication 363683428 E11.9 On trescibaOn Fiasp Sees Dr Dhillon 06/02/2022 next 11/27/[address] Powell podiatryNe eds to see eye MDGet labs from Dr Dhillon 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.[address] Jorge 10/05/21No w sees Dr Jimenez repeat labs Malignant neoplasm of urinary bladder 287763918 C67.9 s/p surgery by Dr Daniels, in 06/[address] Daniels Smoker 39571569 F17.200 Advised to quit LDCT 09/26/2019 CT chest 06/06/2021 : Cirrhosis of the liverGet AAA Liver enzy mes level above reference range 675973635 R74.[address] Silverio , but now sees Dr Ledezma US liver 05/17/2021 : cirrhosis, cholelithi asis Get labs Chronic ki dney disease 751356806 N18.9 Dr Low nephrology Neuropathy 813102667 G62 .9 On lyrica 50mg tidDoes well Gastroesop hageal reflux disease without esophagitis 767116527 K21.9 On pantaprozo leDoes wellTake as needed Hyperlipidemia 10946735 E78.5 On atorvastat in 20mg dailyNot on vascepa Get labs Insomnia 363427870 G47.0 0 On ambienDoes well Retinal ar amy occlusion 273568355 H34.9 Seen by Retina Preston 05/07/18: Dr Coleman, noted to have a Hallenhors t plaque Keep apt wtih Dr Collado who he now sees Anemia 916031402 D64.9 Is on iron Does well Osteonecro sis of head of femur 366323521 M87.[address] Barfield 01/15/2020 , no surgery done Does well Serum brielle min B12 below reference range 727969614 R79.89 Pain in right hand [address] 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 Abnormal g ait due to impairment of balance 721563048 R26.89 Feels that his gait is getting worse, he did have cerebellar surgery 17 years ago and feels that this contribute s to it, will get PT OV 03/20/2023 : Get PT renewed Upper resp iratory infection 84783287 J06.9 Get xray chestGet on z-pack, flonase and claritinDo es not want to do COVID 19 RT PCR or strep or fluER if worse Addendum: 07/04/2023 : Case sent Skin lesion 14528412 L98 .9 Multiple slightly raised dark macules noted on the R>L abd wallRefer to Dr Troy Watson 07/10/2023 , to get skin tag removed 07/31/2023 [id number] Chantell lomeli MD [facility] General Surgery [address] [address] 09/06/2023 11:02:17 09/24/2023 14:37:12 Skin lesion 68468916 L98.9 Right Flank, Right upper leg [id number] Chantell lomeli MD [facility] General Surgery [address] [place] [address] 1 09/25/2023 10:29:06 09/25/2023 10:54:42 [id number] Shay hays MD [facility] Internal Med [facility] [address] [address] 11/15/2023 14:12:12 11/15/2023 14:47:24 Adult health examination 729230398 Z00.00 Screening for disorder 680134475 Z13.9 Liver mass 094783081 R16 .0 Get a referral to oncologist CT A/P 12/27/[address] 01/04/2023 MRI Abd: 01/27/2023 CT 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/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CT A/P 06/29/2023 : Dr Khanh Cassidy 09/27/2023 , be on megace Screening - NAD 24627899 3 Z13.9 C-scope: 10/16/16: Dr Nilda hernandez next in 10 years Get flu shot declined thisUTD Tdap 02/06/17Ge t COVID 19 vaccine done states that he does not want it as he does not believe in vaccine that was rushed thru', advised to follow CDC guidelines Can do RSV vaccine RTC in 4 monthsGet labsER if worsehe did verbalize his understand ing of above Heart murmur 11511206 R0 1.[address] Harris Essential hypertension 31868806 I10 BP much better today 06/05/2022 On ASAOn amlodipine 5mg dailyOn chlorthali done 25mg 1/[address] Low 10/04/2021 On nadolol 20mg daily OK to renew 06/05/2022 Off lasixOff losartan 25mg daily as per Dr Harris 05/30/2022 Get labsHe does see Dr Low Type 2 anish betes mellitus without complication 364567415 E11.9 On trescibaOn Fiasp Sees Dr Dhillon 06/02/2022 next 11/27/[address] Powell podiatryNe eds to see eye MDGet labs from Dr Dhillon Thrombotic thrombocytopenic purpura 45320245 M31.[address] Jorge 10/05/21No w sees Dr Jimenez repeat labs Malignant neoplasm of urinary bladder 053747418 C67.9 s/p surgery by Dr Daniels, in 06/[address] Daniels Smoker 21440779 F17.200 Advised to quit LDCT 09/26/2019 CT chest 06/06/2021 : Cirrhosis of the liverLDCT 09/24/2023 4: Dr Garcia AAA: 07/30/2023 Liver enzy mes level above reference range 044847102 R74.[address] Silverio , but now sees Dr Ledezma US liver 05/17/2021 : cirrhosis, cholelithi asisGet labs Chronic ki dney disease 857849027 N18.9 Dr Low nephrology Neuropathy 495123625 G62 .9 On lyrica 50mg tidDoes well Gastroesop hageal reflux disease without esophagitis 843243937 K21.9 On pantaprozo leDoes wellTake as needed Hyperlipidemia 31630403 E78.5 On atorvastat in 20mg dailyNot on vascepa Get labs Insomnia 879281714 G47.0 0 On ambien, renewed 11/15/2023 , resent [facility] Retinal ar amy occlusion 872302564 H34.9 Seen by Retina Preston 05/07/18: Dr Coleman, noted to have a Hallenhors t plaque Keep apt wtih Dr Collado who he now sees Anemia 328501580 D64.9 Is on iron Does well Osteonecro sis of head of femur 374433189 M87.[address] Barfield 01/15/2020 , no surgery done Does well Serum brielle min B12 below reference range 897398372 R79.89 Pain in right hand [address] 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 Abnormal g ait due to impairment of balance 572078680 R26.89 Feels that his gait is getting worse, he did have cerebellar surgery 17 years ago and feels that this contribute s to it, will get PT OV 03/20/2023 : Get PT renewed Skin lesion 62510573 L98 .9 Multiple slightly raised dark macules noted on the R>L abd wallRefer to Dr Troy Watson last OV 09/25/2023 [id number] Shay hays MD [facility] Internal Med [facility] [address] [facility] [place] [facility], [facility] [address] [place] [address] 03/13/2024 14:23:11 03/13/2024 14:57:52 Liver mass 214446953 R16.0 Get a referral to oncologist CT A/P 12/27/[address] 01/04/2023 MRI Abd: 01/27/2023 CT 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/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CT A/P 06/29/2023 : Dr Khanh Cassidy 09/27/2023 , be on megaceDr Khanh 01/17/2024 Screening - NAD 64147190 3 Z13.9 C-scope: 10/16/16: Dr Nilda hernandez next in 10 years Get flu shot declined thisUTD Tdap 02/06/17Ge t COVID 19 vaccine done states that he does not want it as he does not believe in vaccine that was rushed thru', advised to follow CDC guidelines Can do RSV vaccine RTC in 4 monthsGet labsER if worsehe did verbalize his understand ing of above Heart murmur 03918574 R0 1.[address] Harrsi Essential hypertension 32052566 I10 BP much better today 06/05/2022 On ASAOn amlodipine 5mg dailyNot on chlorthali done 25mg 1/[address] Low 10/04/2021 On nadolol 20mg daily OK to renew 06/05/2022 Off lasixOff losartan 25mg daily as per Dr Harris 05/30/2022 Get labsHe does see Dr Low Type 2 anish betes mellitus without complication 554626853 E11.9 On trescibaOn Fiasp Sees Dr Dhillon 06/02/2022 next 11/27/[address] Powell podiatryNe eds to see eye MDGet labs from Dr Dhillon Thrombotic thrombocytopenic purpura 14404225 M31.[address] Jorge 10/05/21No w sees Dr Jimenez repeat labs Malignant neoplasm of urinary bladder 004974448 C67.9 s/p surgery by Dr Daniels, in 06/[address] Daniels Smoker 24949738 F17.200 Advised to quit LDCT 09/26/2019 CT chest 06/06/2021 : Cirrhosis of the liverLDCT 09/24/2023 4: Dr Garcia AAA: 07/30/2023 Liver enzy mes level above reference range 168551274 R74.[address] Silverio , but now sees Dr Ledezma US liver 05/17/2021 : cirrhosis, cholelithi asisGet labs Chronic ki dney disease 734222435 N18.9 Dr Low nephrology Neuropathy 847770304 G62 .9 On lyrica 50mg tidDoes well Gastroesop hageal reflux disease without esophagitis 523359588 K21.9 On pantaprozo leDoes wellTake as needed Hyperlipidemia 79801760 E78.5 On atorvastat in 20mg dailyNot on vascepa Get labs Insomnia 610915831 G47.0 0 On ambienDoes well Retinal ar amy occlusion 538942170 H34.9 Seen by Retina Preston 05/07/18: Dr Coleman, noted to have a Hallenhors t plaque Keep apt wtih Dr Collado who he now sees Anemia 455479863 D64.9 Is on iron Does well Osteonecro sis of head of femur 192009069 M87.[address] Barfield 01/15/2020 , no surgery done Does well Serum brielle min B12 below reference range 215540470 R79.89 Pain in right hand [address] 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 Abnormal g ait due to impairment of balance 924328221 R26.89 Feels that his gait is getting worse, he did have cerebellar surgery 17 years ago and feels that this contribute s to it, will get PT OV 03/20/2023 : Get PT renewed Skin lesion 56703159 L98 .9 Multiple slightly raised dark macules noted on the R>L abd wallRefer to Dr Troy Watson last OV 09/25/2023 [id number] Shay hays MD [facility] Internal Med [address] [facility] [place] [facility], [address] [place] [address] 04/08/2024 12:17:56 04/08/2024 13:09:48 Liver mass 673404884 R16.0 Get a referral to oncologist CT A/P 12/27/[address] 01/04/2023 MRI Abd: 01/27/2023 CT 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/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CT A/P 06/29/2023 : Dr Khanh Cassidy 09/27/2023 , be on megaceDr Khanh 01/17/2024 Screening - NAD 57223532 3 Z13.9 C-scope: 10/16/16: Dr Nilda hernandez next in 10 years Get flu shot declined thisUTD Tdap 02/06/17Ge t COVID 19 vaccine done states that he does not want it as he does not believe in vaccine that was rushed thru', advised to follow CDC guidelines Can do RSV vaccine RTC in 4 monthsGet labsER if worsehe did verbalize his understand ing of above Heart murmur 93840097 R0 1.[address] Castelan/p hospital d/c 03/28/2024 , s/p stent, apt with Dr Harris is on 04/10/2024 Essential hypertension 75318061 I10 BP much better today 06/05/2022 Off ASAOff amlodipine 5mg dailyOn plavixOn isosorbide ER 60mg dailyNot on chlorthali done 25mg 1/[address] Low 10/04/2021 On nadolol 20mg daily OK to renew 06/05/2022 Off lasixOff losartan 25mg daily as per Dr Harris 05/30/2022 Get labsHe does see Dr Low Type 2 anish betes mellitus without complication 415741233 E11.9 On trescibaOn FiaspAs per hx 04/08/2024 , his ACCU was 112 today, yesterday was [address] Darya Powell podiatryNe eds to see eye MD Dr Narvaez eye in 05/08/2024 , as per his history 04/08/[address] Dhillon Thrombotic thrombocytopenic purpura 37191713 M31.[address] Jorge 10/05/21No w sees Dr Cassidy on 04/10/2024 Get repeat labs Malignant neoplasm of urinary bladder 766888318 C67.9 s/p surgery by Dr Daniels, in 06/[address] Daniels, next apt in 09/2024On flomax but states that this has not helped, he will make his apt again with urology Smoker 30550488 F17.200 Advised to quit LDCT 09/26/2019 CT chest 06/06/2021 : Cirrhosis of the liverLDCT 09/24/2023 4: Dr Garcia AAA: 07/30/2023 Liver enzy mes level above reference range 164500264 R74.[address] Silverio , but now sees Dr Ledezma US liver 05/17/2021 : cirrhosis, cholelithi asisGet labs Chronic ki dney disease 080315323 N18.9 Dr Low nephrology Neuropathy 654961130 G62 .9 On lyrica 50mg tidDoes well Gastroesop hageal reflux disease without esophagitis 308636647 K21.9 On pantaprozo leDoes wellTake as needed Hyperlipidemia 71645752 E78.5 On atorvastat in 20mg dailyNot on vascepa Get labs Insomnia 988641046 G47.0 0 On ambienDoes well Retinal ar amy occlusion 036744236 H34.9 Seen by Retina Preston 05/07/18: Dr Coleman, noted to have a Hallenhors t plaque Keep apt wtih Dr Collado who he now sees Anemia 769263414 D64.9 Is on iron Does well Osteonecro sis of head of femur 828237234 M87.[address] Barfield 01/15/2020 , no surgery done Does well Serum brielle min B12 below reference range 514317555 R79.89 Pain in right hand [address] 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 Abnormal g ait due to impairment of balance 052946430 R26.89 Feels that his gait is getting worse, he did have cerebellar surgery 17 years ago and feels that this contribute s to it, will get PT OV 03/20/2023 : Get PT renewed Skin lesion 44462239 L98 .9 Multiple slightly raised dark macules noted on the R>L abd wallRefer to Dr Troy Watson last OV 09/25/2023 Transition of care 98009 61250 105 Z75.8 Health Concerns Section Related Observation LastModified by Organization Detai ls LastModified Time None Recorded Concern Status LastModified by Organization Details LastModified Time None Recorded Advance Directives Directive N: not interested in info to day Payers Encounter Date Sequence Insurance Name Policy Number Policy Montejo Covered Member ID Montejo Member ID Guarantor Name 09/06/2023 1 [employer] (MEDICARE REPLACEMENT HMO) Daniel Treviño [id number] Daniel Treviño 09/25/2023 1 [employer] (MEDICARE REPLACEMENT HMO) Daniel Treviño [id number] Daniel Treviño 11/15/2023 1 [employer] (MEDICARE REPLACEMENT HMO) Daniel Treviño [id number] Daniel Treviño 03/13/2024 1 [employer] (MEDICARE REPLACEMENT HMO) Daniel Treviño [id number] Daniel Treviño 04/08/2024 1 [employer] - [employer]US (MEDICARE REPLACEMENT HMO) Daniel Treviño [id number] Daniel Treviño Notes Date Note Type Note Provider Name and Address Organization Details Recorded Time 024 text/ht ml patient here for excision skin lesion so right chest wall and right upper thigh and also destruction neurofibroma mid back Chantell jefferson MD [address] [facility], [facility] [address], [place], [address], [place] [employer] 09/06/2023 14:18:33 024 text/ht ml No complaints Chantell jefferson MD [address], [place], [address], [place] [facility] 09/25/2023 10:48:49 024 text/ht ml Here to establish carePrior PMD Dr Jones and Marybeth Carolina Hx:CirrhosisBladder cancerDMIIHTNGERDInsomniaReviewed social family and surgical historyHere to discuss above and also wishes to get his tramadol renewed by this office OV 06/07/17:Here for his routine aptHe states that the middle school baseball coach gave him the gabapentin and this did not help the neuropathy so he has quit thatHe would also like to discuss some itching on the R earOV 09/06/17:Here for his regular visitHe states that he is doing well at this timeHe did do the labs on 08/01/17OV 12/06/17:Here for his routine aptHe has seen Dr Dhillon alsoHe did do the labs on 11/08/17OV 03/12/18:He is here for his routine aptDid see Dr Harris, and had stents and is doing wellIs seeing Dr Powell for the toe and it is healing wellOV 05/08/18:Here for his routine aptHe did see the eye MD and was told he had a 'blockage in the eye'Is doing well otherwiseOV 08/01/18:Here for his routine aptIs to see a vascular surgon in Dr Garcia for his carotid artery also now is on an insulin pumpNeeds to do labsOV 11/07/18:Here for his routine aptHe is doing wellHe did do the labsNeeds some trescibaOV 01/27/19:Here for his pre-op for cataract on 01/30/19, on the R and a week later for his L eyeTo be done by Dr Moran, he states that he is doing 'great' and his R toe wound is almost healed upNo recent labs, but he did see Dr HarrisOV 09/22/2019:He is here for his routine aptHe is doing wellHe did do the labsOV 05/20/2020:Here for his routine aptHe feels wellHe does c/o some numbness in the arms when he take the propranololHe has done the labsOV 10/19/2020:Here for his routine aptHe feels wellHe has seen Dr Dhillon on 09/16/2020He did have the labsOV 05/26/2021:Here for his wellness visitHe feels wellLabs done on 2OV 11/08/2021:Here for his f/u apt, he feels wellHe did do the labs on 10/03/2021 OV 05/16/2022:Here for his routine apt, he is doing well today, but has noted some R hand pain and some gait imbalance, he did do the labs OV 06/05/2022:Seen in the ER for a syncopal spell and elevated BP, now seen by Dr Harris on 05/30/2022, is off the losartan and is on amlodipine, also wants his ambien OV 09/19/2022:Here for his f/u apt, he states that he is doing very well, he did do the labs OV 12/27/2022: ACV: See caseC/o abd pain, it hurts to lay on the right side, recently was also diagnosed with an elevated AFP done by Dr Low, no N/V, no diarrhea, no constipation, no blood in urine or stool, no fevers or chills, states that he has had an appy done, s/p bladder surgery done in the remote past OV 03/20/2023: Here for his routine apt, he is doing well today, states that he did see Dr Cassidy and is s/p liver lesion bx, now he is to get 'mapping' done for the liver and get radiation therapy, he still has some RUQ fullness OV 07/04/2023: Here for his ACV, has noted URI sx, c/o nasal and sinus congestion, no chest pain or SOB, no fevers or chills, non productive cough OV 07/19/2023: Here for his f/u apt, he is doing well today, he did see Dr Cassidy, he is feeling much better regarding his URI OV 11/15/2023: Here for his routine apt, he is doing well today, he has no recent labs Shay Hooper MD [address], [facility] [address], [place], [address], [place] [facility] 11/20/2023 15:02:08 025 text/ht ml Here to establish carePrior PMD Dr Jones and Marybeth Carolina Hx:CirrhosisBladder cancerDMIIHTNGERDInsomniaReviewed social family and surgical historyHere to discuss above and also wishes to get his tramadol renewed by this office OV 06/07/17:Here for his routine aptHe states that the middle school baseball coach gave him the gabapentin and this did not help the neuropathy so he has quit thatHe would also like to discuss some itching on the R earOV 09/06/17:Here for his regular visitHe states that he is doing well at this timeHe did do the labs on 08/01/17OV 12/06/17:Here for his routine aptHe has seen Dr Dhillon alsoHe did do the labs on 11/08/17OV 03/12/18:He is here for his routine aptDid see Dr Harris, and had stents and is doing wellIs seeing Dr Powell for the toe and it is healing wellOV 05/08/18:Here for his routine aptHe did see the eye MD and was told he had a 'blockage in the eye'Is doing well otherwiseOV 08/01/18:Here for his routine aptIs to see a vascular surgon in Dr Garcia for his carotid artery also now is on an insulin pumpNeeds to do labsOV 11/07/18:Here for his routine aptHe is doing wellHe did do the labsNeeds some trescibaOV 01/27/19:Here for his pre-op for cataract on 01/30/19, on the R and a week later for his L eyeTo be done by Dr Moran, he states that he is doing 'great' and his R toe wound is almost healed upNo recent labs, but he did see Dr Murray 09/22/2019:He is here for his routine aptHe is doing wellHe did do the labsOV 05/20/2020:Here for his routine aptHe feels wellHe does c/o some numbness in the arms when he take the propranololHe has done the labsOV 10/19/2020:Here for his routine aptHe feels wellHe has seen Dr Dhillon on 09/16/2020He did have the labsOV 05/26/2021:Here for his wellness visitHe feels wellLabs done on 2OV 11/08/2021:Here for his f/u apt, he feels wellHe did do the labs on 10/03/2021 OV 05/16/2022:Here for his routine apt, he is doing well today, but has noted some R hand pain and some gait imbalance, he did do the labs OV 06/05/2022:Seen in the ER for a syncopal spell and elevated BP, now seen by Dr Harris on 05/30/2022, is off the losartan and is on amlodipine, also wants his ambien OV 09/19/2022:Here for his f/u apt, he states that he is doing very well, he did do the labs OV 12/27/2022: ACV: See caseC/o abd pain, it hurts to lay on the right side, recently was also diagnosed with an elevated AFP done by Dr Low, no N/V, no diarrhea, no constipation, no blood in urine or stool, no fevers or chills, states that he has had an appy done, s/p bladder surgery done in the remote past OV 03/20/2023: Here for his routine apt, he is doing well today, states that he did see Dr Cassidy and is s/p liver lesion bx, now he is to get 'mapping' done for the liver and get radiation therapy, he still has some RUQ fullness OV 07/04/2023: Here for his ACV, has noted URI sx, c/o nasal and sinus congestion, no chest pain or SOB, no fevers or chills, non productive cough OV 07/19/2023: Here for his f/u apt, he is doing well today, he did see Dr Cassidy, he is feeling much better regarding his URI OV 11/15/2023: Here for his routine apt, he is doing well today, he has no recent labs OV 03/13/2024: Here for his f/u apt, he is doing well today, he did do the labs with Dr Khanh Hooper MD [address] [facility], [place], [address], [place] [facility] 03/26/2024 18:30:33 025 text/ht ml Here to establish carePrior PMD Dr Jnoes and Marybeth Carolina Hx:CirrhosisBladder cancerDMIIHTNGERDInsomniaReviewed social family and surgical historyHere to discuss above and also wishes to get his tramadol renewed by this office OV 06/07/17:Here for his routine aptHe states that the middle school baseball coach gave him the gabapentin and this did not help the neuropathy so he has quit thatHe would also like to discuss some itching on the R earOV 09/06/17:Here for his regular visitHe states that he is doing well at this timeHe did do the labs on 08/01/17OV 12/06/17:Here for his routine aptHe has seen Dr Alejo mercadoHe did do the labs on 11/08/17OV 03/12/18:He is here for his routine aptDid see Dr Harris, and had stents and is doing wellIs seeing Dr Powell for the toe and it is healing wellOV 05/08/18:Here for his routine aptHe did see the eye MD and was told he had a 'blockage in the eye'Is doing well otherwiseOV 08/01/18:Here for his routine aptIs to see a vascular surgon in Dr Garcia for his carotid artery also now is on an insulin pumpNeeds to do labsOV 11/07/18:Here for his routine aptHe is doing wellHe did do the labsNeeds some trescibaOV 01/27/19:Here for his pre-op for cataract on 01/30/19, on the R and a week later for his L eyeTo be done by Dr Moran, he states that he is doing 'great' and his R toe wound is almost healed upNo recent labs, but he did see Dr HarrisOV 09/22/2019:He is here for his routine aptHe is doing wellHe did do the labsOV 05/20/2020:Here for his routine aptHe feels wellHe does c/o some numbness in the arms when he take the propranololHe has done the labsOV 10/19/2020:Here for his routine aptHe feels wellHe has seen Dr Dhillon on 09/16/2020He did have the labsOV 05/26/2021:Here for his wellness visitHe feels wellLabs done on 2OV 11/08/2021:Here for his f/u apt, he feels wellHe did do the labs on 10/03/2021 OV 05/16/2022:Here for his routine apt, he is doing well today, but has noted some R hand pain and some gait imbalance, he did do the labs OV 06/05/2022:Seen in the ER for a syncopal spell and elevated BP, now seen by Dr Harris on 05/30/2022, is off the losartan and is on amlodipine, also wants his ambien OV 09/19/2022:Here for his f/u apt, he states that he is doing very well, he did do the labs OV 12/27/2022: ACV: See caseC/o abd pain, it hurts to lay on the right side, recently was also diagnosed with an elevated AFP done by Dr Low, no N/V, no diarrhea, no constipation, no blood in urine or stool, no fevers or chills, states that he has had an appy done, s/p bladder surgery done in the remote past OV 03/20/2023: Here for his routine apt, he is doing well today, states that he did see Dr Cassidy and is s/p liver lesion bx, now he is to get 'mapping' done for the liver and get radiation therapy, he still has some RUQ fullness OV 07/04/2023: Here for his ACV, has noted URI sx, c/o nasal and sinus congestion, no chest pain or SOB, no fevers or chills, non productive cough OV 07/19/2023: Here for his f/u apt, he is doing well today, he did see Dr Cassidy, he is feeling much better regarding his URI OV 11/15/2023: Here for his routine apt, he is doing well today, he has no recent labs OV 03/13/2024: Here for his f/u apt, he is doing well today, he did do the labs with Dr Khanh LWORY 04/08/2024: Here for his post hospital f/u, did have to have stent for CAD and also was told he did have a pneumonia, he states that he is doing much better now Shay Hooper MD [address] [place] [address], [facility] [address], [place], [address], [place] [facility] 04/08/2024 14:04:50
--- OUTSIDE RECORDS SUMMARY | 2024-05-08 14:21 | XMS_ITS | Encounter Summary ---
Author Organization [facility] [employer] Address [address] [place] [address] Care Team Providers Care Fish Hatchery Superintendent Name Role Phone Shay Hooper MD Primary Care Provider Encounter Details Date Type Department Care Team ([facility] Contact Info) Description 05/05/2024 Orders Only [facility]ology [address] [place] [address] Tommy Cassidy MD [facility] [address] [place] [id number] Benign hypertension Social History Tobacco Use Types Packs/Day Years [...] Department Care Team (Late Contact Info) Description 05/30/2024 9:00 AM CDT Office Visit [facility] Oncology and Hematology - [address] [place] [address] Tommy Cassidy MD [address] [place] [phone] documented as of this encounter Visit Diagnoses Diagnosis Benign hypertension Essential hypertension, benign documented in this encounter Care Teams Fish Hatchery Superintendent Relationship Specialty Start Date End Date Shay Hooepr MD PCP - General Internal Medicine 01/01/23 documented as of this encounter
--- OUTSIDE RECORDS SUMMARY | 2024-05-08 14:21 | XMS_ITS | Encounter Summary ---
Author Organization [facility] Address [address] [facility] [address] Care Team Providers Care Die Mounter Name Role Phone Shay Hooper MD Primary Care Provider Reason for Visit * Reason Comments Cirrhosis Encounter Details Date Type Department Care Team (Late st Contact Info) Description 05/08/2024 11:30 AM CDT Office Visit [facility] - GI [address] [facility] [place] [address] Phyllis Pereira, EGG SMELLER-DURABLE MEDICAL EQUIPMENT TECHNICIAN [address] [place] [address] [facility] [place] [address] Social History Tobacco Use Types Packs/Day Years [...] on file documented as of this encounter Last Filed Vital Signs Vital Sign Reading Time Taken Comments Blood Pressure 139/54 05/08/2024 12:13 PM CDT Pulse 62 05/08/2024 12:13 PM CDT Temperature 36.6 C (97.9 F) 05/08/2024 12:13 PM CDT Respiratory Rate - - Oxygen Saturation 100% 05/08/2024 12:13 PM CDT Inhaled Oxygen Concentration - - Weight - - Height 180.3 cm (5' 11 ) 05/08/2024 12:13 PM CDT Body Mass Index - - documented in this encounter Functional Status Functional Status Response [...] Description 05/08/2025 11:00 AM CDT Office Visit [facility] - GI [address] [place] [address], [place] [address] Phyllis Pereira, EGG SMELLER-DURABLE MEDICAL EQUIPMENT TECHNICIAN [address] [place] [address] [facility] [place] [address] documented as of this encounter Goals Goal Patient Goal Type Associated Problems [...] Maintain an unobstructed path to the bathroom documented as of this encounter Visit Diagnoses Not on filedocumented in this encounter Care Teams Die Mounter Relationship Specialty Start Date End Date Shay Hooper MD [address] [address] PCP - General Internal Medicine 11/14/17 documented as of this encounter
--- OUTSIDE RECORDS SUMMARY | 2024-05-08 14:21 | XMS_ITS | Patient Health Record ---
Author Organization [facility] Address [address] [place] [address] Care Team Providers Care Crusher Setter Name Role Phone Azeem Vizcaino Unavailable [phone] Reason For Referral No Information Plan Of Treatment No Information Insurance Providers Payer Name Payer Address Payer Phone Subscriber Number Group Number Insured Name Patient Relationship to Insured Coverage Start Date Coverage End Date [employer] [address] [address] [place] [address] [phone] [id number] Daniel Treviño Self - patient is the insured
--- OUTSIDE RECORDS SUMMARY | 2024-05-08 14:21 | XMS_ITS | Referral Summary ---
Author Organization [facility] Address [address] [place] [address] Care Team Providers Care Farm Owner Operator Name Role Phone Krish Hooper MD Primary Care Provide r Jorge Jorge DO Unavailable Rene Harris MD Unavailable Encounters Date Type Department Care Team Description 04/01/2024 Orders Only [facility] Cardiology [address] [place] [address] Nimisha Ryan MD 02/12/2024 9:26 AM IMMIGRATION GUARD - 02/13/2024 10:31 AM [facility] Hospital Encounter [facility] [id number] [place] [address] Rene Harris MD Chest pain Discharge Disposition: Discharge to home or self care 02/12/2024 11:36 AM IMMIGRATION GUARD - 02/12/2024 1:36 PM [facility] Surgery [facility] Cardiac Catheterization Lab [address] [place] [address] Rene Harris MD PCI PTCA - MAJOR CORONARY [id number] from Last 3 Months Allergies Active Allergy [...] hyperlipidemia 09/17/2017 PVD (peripheral vascular disease) Immunizations Immunization Administration Dates Next Due Tdap 02/06/2017 Social [...] on file Legal Sex Male 7:05 PM IMMIGRATION GUARD Gender Identity Not on file Sexual Orientation Not on file Last Filed Vital Signs Vital Sign Reading Time Taken Comments Blood Pressure 130/54 02/13/2024 8:04 AM IMMIGRATION GUARD Pulse 67 02/13/2024 8:04 AM IMMIGRATION GUARD Temperature 36.9 C (98.5 F) 02/13/2024 8:04 AM IMMIGRATION GUARD Respiratory Rate 18 02/13/2024 8:04 AM IMMIGRATION GUARD Oxygen Saturation 99% 02/13/2024 8:04 AM IMMIGRATION GUARD Inhaled Oxygen Concentration - - Weight 83.5 kg (184 lb) 02/12/2024 3:20 PM IMMIGRATION GUARD Height 180.3 cm (5' 11 ) 02/12/2024 3:20 PM IMMIGRATION GUARD Body Mass Index 25.66 02/12/2024 3:20 PM IMMIGRATION GUARD Plan of Treatment Not on file Medical Devices Implanted Type Area Surveillance System Monitor Device Identifier Shelf Expiration Date Model / Serial / Lot Personal Estate Manager Synergy Xd Monorail 4mm 32mm 144cm Delivery System 1 Access Port [id number] - [id number] Implanted:Qty: 1 on 02/12/2024 by Rene Harris MD at [facility] Personal Estate Manager 11/28/2024 [id number] / / [id number] Procedures Procedure Name Priority Date/Time Associated Diagnosis Comments CARDIOLOGY DOCUMENT SCAN Routine 03/27/2024 10:46 AM IMMIGRATION GUARD CARDIOLOGY DOCUMENT SCAN Routine 03/26/2024 10:43 AM IMMIGRATION GUARD POCT GLUCOSE DEVICE Routine 02/13/2024 7 :52 AM IMMIGRATION GUARD EGFR Routine 02/13/2024 2:34 AM IMMIGRATION GUARD BASIC METABOLIC PANEL Routine 02/13/2024 2:34 AM IMMIGRATION GUARD APTT Routine 02/12/2024 3:35 PM IMMIGRATION GUARD POCT ACTIVATED CLOTTING TIME, HIGH RANGE Routine 02/12/2024 2:28 PM IMMIGRATION GUARD POCT ACTIVATED CLOTTING TIME, HIGH RANGE Routine 02/12/2024 1:54 PM IMMIGRATION GUARD POCT GLUCOSE DEVICE Routine 02/12/2024 1 :33 PM IMMIGRATION GUARD PERCUTAINEOUS TRANSLUMINAL CORONARY ANGIOPLASTY OF ONE MAJOR CORONARY Routine 02/12/2024 1:19 PM IMMIGRATION GUARD Chest pain POCT ACTIVATED CLOTTING TIME, HIGH RANGE Routine 02/12/2024 1:00 PM IMMIGRATION GUARD POCT ACTIVATED CLOTTING TIME, HIGH RANGE Routine 02/12/2024 12:33 PM IMMIGRATION GUARD POCT GLUCOSE DEVICE Routine 02/12/2024 1 0:45 AM IMMIGRATION GUARD EGFR Routine 02/12/2024 10:13 AM IMMIGRATION GUARD DIFFERENTIAL AUTO Routine 02/12/2024 10: 13 AM IMMIGRATION GUARD PROTIME-INR Routine 02/12/2024 10:13 AM IMMIGRATION GUARD CBC WITH AUTO DIFFERENTIAL Routine 02/12/2024 10:13 AM IMMIGRATION GUARD BASIC METABOLIC PANEL Routine 02/12/2024 10:13 AM IMMIGRATION GUARD ECG 12-LEAD Routine 02/12/2024 10:06 AM IMMIGRATION GUARD POCT GLUCOSE DEVICE Routine 02/12/2024 9 :49 AM IMMIGRATION GUARD HEMOGLOBIN A1C Routine 09/18/2017 6:16 AM CDT LIPID PANEL STAT 09/18/2017 6:16 AM CDT from Last 3 Months or Most Recently Relevant to Health Maintenance Results * Cardiology Document Scan (03/27/2024 10:46 AM IMMIGRATION GUARD) Anatomical Region Laterality Modality Other us Shawn Vyas MD CV CARDIAC SERVICES PROCEDURES F inal Result * Cardiology Document Scan (03/26/2024 10:43 AM IMMIGRATION GUARD) Anatomical Region Laterality Modality Other us Nimisha Ryan MD CV CARDIAC SERVICES PRO CEDURES Final Result * POCT glucose (02/13/2024 7:52 AM IMMIGRATION GUARD) Glucose, POC 119 70 - 199 mg/dL Blood 02/13/2024 7:52 AM IMMIGRATION GUARD 02/13/2024 7:52 AM IMMIGRATION GUARD Rene Harris MD LAB POCT ORDERABLES - DEVICE Fin al Result Performing Organization Address City/[facility] Co de Phone Number NINA DAVID [address] [place] [address] * (ABNORMAL) eGFR (02/13/2024 2:34 AM IMMIGRATION GUARD) eGFR 57(L) >=60 mL/min/1. 73 m2 Comment: [...] last reviewed 2020. Blood 02/13/2024 2:34 AM IMMIGRATION GUARD 02/13/2024 3:28 AM IMMIGRATION GUARD Rene Harris MD LAB BLOOD ORDERABLES Final Resul t Performing Organization Address City/[facility]/ZIP Co de Phone Number NINA DAVID [address] [place] [address] * (ABNORMAL) Basic metabolic panel (02/13/2024 2:34 AM IMMIGRATION GUARD) Sodium 138 135 - 145 mmol/L Potassium, pl 4.1 3.3 - 4.9 mmol/L [facility] Chloride 107 97 - 110 mmol/L [facility] CO2 20(L) 22 - 32 mmol/L [facility] Anion gap 11 2 - 15 mmol/L [facility] BUN 18 6 - 25 mg/dL [facility] Creatinine 1.35(H) 0.80 - 1.30 mg/dL [facility] Glucose 105 70 - 199 mg/dL [facility] Comment: Interpretive Data Fasting glucose >/= 126 [...] 2022. Calcium 9.0 8.5 - 10.3 mg/dL [facility] Blood 02/13/2024 2:34 AM IMMIGRATION GUARD 02/13/2024 3:28 AM IMMIGRATION GUARD Rene Harris MD LAB BLOOD ORDERABLES Final Resul t [facility] [address] Department [place] [address] * (ABNORMAL) aPTT (02/12/2024 3:35 PM IMMIGRATION GUARD) aPTT >150(C) 28 - 38 sec Comment: Critical result called to and read back by Prema Pulliam (RN _) on 02/12/2024 17:10:38 IMMIGRATION GUARD _ to _ [place]. Interpretive Data Heparin therapeutic range: 66.0 - 100.0 seconds. Range based on correlation with therapeutic heparin activity range of 0.3 - 0.7 Units/mL. Current interpretive data was last revised on 2022. Blood 02/12/2024 3:35 PM IMMIGRATION GUARD 02/12/2024 3:43 PM IMMIGRATION GUARD Narrative [facility] - 02/12/2024 5:11 PM IMMIGRATION GUARD Draw aPTT 2 hours after anticoagulant discontinued. Rene Harris MD LAB BLOOD ORDERABLES Final Resul t Performing Organization Address [facility] Co de Phone Number NINA DAVID [address] [facility] [place], [place] [id number] * (ABNORMAL) POC Activated Clotting Time, High Range (02/12/2024 2:28 PM IMMIGRATION GUARD) ACT 173(H) 87 - 138 sec Blood 02/12/2024 2:28 PM IMMIGRATION GUARD 02/12/2024 2:28 PM IMMIGRATION GUARD Rene Harris MD LAB BLOOD ORDERABLES Final Resul t Performing Organization Address [facility] de Phone Number CL[place]ENCEW[place] DAVID [address] Department [place], [place] [id number] * (ABNORMAL) POC Activated Clotting Time, High Range (02/12/2024 1:54 PM IMMIGRATION GUARD) ACT 219(H) 87 - 138 sec Blood 02/12/2024 1:54 PM IMMIGRATION GUARD 02/12/2024 1:54 PM IMMIGRATION GUARD Rene Harris MD LAB BLOOD ORDERABLES Final Resul t Performing Organization Address [facility] Co de Phone Number [place] DAVID [address] [place] [address] * POCT glucose (02/12/2024 1:33 PM IMMIGRATION GUARD) Glucose, POC 81 70 - 199 mg/dL Blood 02/12/2024 1:33 PM IMMIGRATION GUARD 02/12/2024 1:33 PM IMMIGRATION GUARD us Rene Harris MD LAB POCT ORDERABLES - DEVICE Fin al Result Performing Organization Address [facility] Co de Phone Number NINA DAVID [address] [place] [address] * PERCUTAINEOUS TRANSLUMINAL CORONARY ANGIOPLASTY OF ONE MAJOR CORONARY (02/12/2024 1:19 PM IMMIGRATION GUARD) Anatomical Region Laterality Modality X-Ray Angiograph y Narrative 02/12/2024 1:34 PM IMMIGRATION GUARD Findings: This is a 68-year-old male who has a known history of hepatocellular cancer and is receiving maintenance therapy from an oncologist at [facility]. He received his maintenance chemotherapy [...] of the vessel we accessed the right ROBOTICS TESTING TECHNICIAN and placed a 7 sheath. I then used a 6 [place] JR4 guide catheter and engaged the RCA [...] the LAD diagonal. I used a 7 [place] EBU 3 5 guide catheter engaged the [...] can restart his chemo as deemed necessary Rene Harris MD CV CARDIAC CATH PROCEDURES Final Result * (ABNORMAL) POC Activated Clotting Time, High Range (02/12/2024 1:00 PM IMMIGRATION GUARD) ACT 208(H) 87 - 138 sec Blood 02/12/2024 1:00 PM IMMIGRATION GUARD 02/12/2024 1:00 PM IMMIGRATION GUARD us Rene Harris MD LAB BLOOD ORDERABLES Final Resul t Performing Organization Address [facility] Co de Phone Number NINA [address] [place] [address] * (ABNORMAL) POC Activated Clotting Time, High Range (02/12/2024 12:33 PM IMMIGRATION GUARD) ACT 351(H) 87 - 138 sec Blood 02/12/2024 12:3 3 PM IMMIGRATION GUARD 02/12/2024 12:33 PM IMMIGRATION GUARD us Rene Harris MD LAB BLOOD ORDERABLES Final Resul t Performing Organization Address [facility] Co de Phone Number NINA [address] [place] [address] * POCT glucose (02/12/2024 10:45 AM IMMIGRATION GUARD) Glucose, POC 100 70 - 199 mg/dL Blood 02/12/2024 10:4 5 AM IMMIGRATION GUARD 02/12/2024 10:45 AM IMMIGRATION GUARD Rene Harris MD LAB POCT ORDERABLES - DEVICE Fin al Result Performing Organization Address [facility] Co de Phone Number NINA DAVID [phone] Department [employer] [place], [place] [id number] * (ABNORMAL) eGFR (02/12/2024 10:13 AM IMMIGRATION GUARD) eGFR 51(L) >=60 mL/min/1. 73 m2 Comment: [...] reviewed 2020. Blood 02/12/2024 10:1 3 AM IMMIGRATION GUARD 02/12/2024 10:36 AM IMMIGRATION GUARD Rene Harris MD LAB BLOOD ORDERABLES Final Resul t Performing Organization Address [facility] Co de Phone Number NINA DAVID [phone] [place] [address] * (ABNORMAL) Differential, auto (02/12/2024 10:13 AM IMMIGRATION GUARD) Neutrophil abs 2.1 1.5 - 6.5 K/cumm Imm gran abs 0.0 0.0 - 0.1 K/cumm [facility] Lymphocyte abs 0.5(L) 0.8 - 3.3 K/cumm [facility] Monocyte abs 0.4 0.2 - 0.8 K/cumm [facility] Eosinophil abs 0.2 0.0 - 0.5 K/cumm [facility] Basophil abs 0.0 0.0 - 0.1 K/cumm [facility] Neutrophil pct 64.3 % [facility] Comment: Interpretive Data Percent cell count reference ranges are not reported, since discordance with absolute values may lead to misinterpretation of CBC data. Current Interpretive Data was last revised on 2017. Imm gran pct 0.3 % [facility] Comment: Interpretive Data Percent cell count reference ranges are not reported, since discordance with absolute values may lead to misinterpretation of CBC data. Current Interpretive Data was last revised on 2017. Lymphocyte pct 16.6 % [facility] Comment: Interpretive Data Percent cell count reference ranges are not reported, since discordance with absolute values may lead to misinterpretation of CBC data. Current Interpretive Data was last revised on 2017. Monocyte pct 11.6 % [facility] Comment: Interpretive Data Percent cell count reference ranges are not reported, since discordance with absolute values may lead to misinterpretation of CBC data. Current Interpretive Data was last revised on 2017. Eosinophil pct 6.6 % [facility] Comment: Interpretive Data Percent cell count reference ranges are not reported, since discordance with absolute values may lead to misinterpretation of CBC data. Current Interpretive Data was last revised on 2017. Basophil pct 0.6 % [facility] Comment: Interpretive Data Percent cell count reference ranges are not reported, since discordance with absolute values may lead to misinterpretation of CBC data. Current Interpretive Data was last revised on 2017. Blood 02/12/2024 10:1 3 AM IMMIGRATION GUARD 02/12/2024 10:37 AM IMMIGRATION GUARD us Rene Harris MD LAB BLOOD ORDERABLES Final Resul t [facility] [address] [place] [address] * (ABNORMAL) CBC with auto differential (02/12/2024 10:13 AM IMMIGRATION GUARD) WBC 3.2(L) 3.8 - 9.9 K/cumm Hgb 8.8(L) 13.0 - 17.5 g/dL [facility] Hct 27.2(L) 38.9 - 50.3 % [facility] Plt 147(L) 150 - 400 K/cumm [facility] MPV 9.3 9.1 - 12.3 fL [facility] RBC 2.82(L) 4.30 - 5.80 M/cumm [facility] MCV 96.5(H) 81.3 - 96.4 fL [facility] MCH 31.2 27.1 - 33.3 pg [facility] MCHC 32.4 32.3 - 35.7 g/dL [facility] RDW CV 14.5 11.1 - 14.9 % [facility] RDW SD 50.4(H) 35.7 - 48.1 fL [facility] NRBC abs 0.00 0.00 - 0.01 K/cumm [facility] Blood 02/12/2024 10:1 3 AM IMMIGRATION GUARD 02/12/2024 10:37 AM IMMIGRATION GUARD Narrative [facility] - 02/12/2024 10:42 AM IMMIGRATION GUARD If most recent labs were drawn prior to 4 AM, draw only prior to initiating procedure. Rene Harris MD LAB BLOOD ORDERABLES Final Resul t Performing Organization Address City/[facility]/ZIP Co de Phone Number NINA DAVID [address] Department of Laboratories [place], [place] [id number] * (ABNORMAL) Protime-INR (02/12/2024 10:13 AM IMMIGRATION GUARD) PT 13.9(H) 9.7 - 13.0 sec INR 1.28(H) 0.90 - 1.20 [facility] Comment: Interpretive data Oral anticoagulant therapeutic ranges: Venous thromboembolism prophylaxis or treatment: 2.0-3.0 CARDIOLOGY Standard range: 2.0-3.0 High-intensity range: 2.5-3.5 Refer to indication-specific guidelines for appropriate target ranges for prosthetic heart valve replacement. Current interpretive data was last revised on 2019. Blood 02/12/2024 10:1 3 AM IMMIGRATION GUARD 02/12/2024 10:37 AM IMMIGRATION GUARD us Rene Harris MD LAB BLOOD ORDERABLES Final Resul t [facility] [address] Department [place] [address] * (ABNORMAL) Basic metabolic panel (02/12/2024 10:13 AM IMMIGRATION GUARD) Sodium 137 135 - 145 mmol/L Potassium, pl 4.3 3.3 - 4.9 mmol/L [facility] Chloride 106 97 - 110 mmol/L [facility] CO2 23 22 - 32 mmol/L [facility] Anion gap 8 2 - 15 mmol/L [facility] BUN 18 6 - 25 mg/dL [facility] Creatinine 1.48(H) 0.80 - 1.30 mg/dL [facility] Glucose 95 70 - 199 mg/dL [facility] Comment: Interpretive Data Fasting glucose >/= 126 [...] 2022. Calcium 9.1 8.5 - 10.3 mg/dL [facility] Blood 02/12/2024 10:1 3 AM IMMIGRATION GUARD 02/12/2024 10:36 AM IMMIGRATION GUARD us Rene Harris MD LAB BLOOD ORDERABLES Final Resul t NINA DAVID [address] [employer] [place] [address] * POCT glucose (02/12/2024 9:49 AM IMMIGRATION GUARD) Glucose, POC 88 70 - 199 mg/dL Blood 02/12/2024 9:49 AM IMMIGRATION GUARD 02/12/2024 9:49 AM IMMIGRATION GUARD Rene Harris MD LAB POCT ORDERABLES - DEVICE Fin al Result Performing Organization Address [facility] Co de Phone Number NINA DAVID [address] [employer] [place] [address] * (ABNORMAL) Hemoglobin A1c (09/18/2017 6:16 AM CDT) Hgb A1C 7.2(H) 4.0 - 5.6 % [facility] Estimated Average Glucose 160 mg/dL [facility] Comment: The ADA recommends reporting an estimated Average Glucose (eAG) with all Hemoglobin A1c results using the equation derived from a study of 507 normal and diabetic adults. Minority populations were underrepresented and children were not included. (Diabetes Care 31:9700-4862, 2008). The eAG is not equivalent to a fasting glucose. Blood specimen (specimen) 09/18/2017 6:16 AM CDT 09/18/2017 7:44 AM CDT Narrative [facility] A[facility] - 09/18/2017 8:10 AM CDT Aiden Parker MD LAB BLOOD ORDERABLES Final Result Performing Organization Address City/[facility] Co de Phone Number [facility] Department [place] [address] * (ABNORMAL) Lipid panel (09/18/2017 6:16 AM CDT) Cholesterol 140 30 - 200 mg/dL [facility] Comment: Interpretive Data Desirable: <200 mg/dL Borderline high: 200-239 mg/dL High: > or = 240 mg/dL Literature Reference: National Cholesterol Education Program (NCEP) Expert Panel on Detection, Evaluation, and Treatment of High Blood Cholesterol in Adults (Adult Treatment Panel III). Circulation 2004; 110:227. Current interpretive data was last revised on 2014. Triglycerides 95 0 - 150 mg/dL [facility] Comment: Interpretive Data Desirable: < 150 mg/dL Borderline High: 150 - 199 mg/dL High: 200 - 499 mg/dL Very High: > or = 499 mg/dL Literature Reference: See Cholesterol Current interpretive data was last revised on 2014. HDL 32(L) >=40 mg/dL [facility] Comment: Interpretive Data Less than 40 mg/dL - low; A major risk factor for heart disease. Greater than or equal to 60 mg/dL - High; considered protective of heart disease. Literature Reference: See Cholesterol Current interpretive data was last revised on 2014. LDL, calculated 89 10 - 129 mg/dL [facility] Comment: Interpretive Data Optimal: < 100 mg/dL Near Optimal: 100 - 129 mg/dL Borderline High: 130 - 159 mg/dL High: 160 - 189 mg/dL Very high: > or = 190 mg/dL Literature Reference: See Cholesterol Current interpretive data was last revised on 2014. Non-HDL Cholesterol 108 mg/dL [facility] Comment: Interpretive Data When triglycerides are >200 mg/dL, non-HDL C is a secondary target of therapy, with a goal 30 mg/dL higher than the identified LDL-C goal. Reference: See Cholesterol Reference. Current interpretive data was last revised 2014. Blood specimen (specimen) 09/18/2017 6:16 AM CDT 09/18/2017 7:42 AM CDT Narrative [facility] - 09/18/2017 6:[address] AIDEN PARKER 09/18/2017 17:13:25 CDT Aiden Parker MD LAB BLOOD ORDERABLES Final Result [facility] Department [place] [address] from Last 3 Months or Most Recently Relevant to Health Maintenance Insurance [employer] MEDICARE HMO [employer] MEDICARE HMO [id number] [id number] Advance Directives For more information, please contact: [phone] * Full Code (Latest Code Status on File) Date Activated Date Inactivated Comments 02/12/2024 3:20 PM 02/13/2024 2:36 PM * Full Code Date Activated Date Inactivated Comments 09/18/2017 5:47 AM 09/19/2017 5:05 PM Care Teams Farm Owner Operator Relationship Specialty Start Date End Date Krish Hooper MD [address] [facility] [address] [place] [address] PCP - General Internal Medicine 12/07/17 Jorge Jorge DO [address] [place] [address] Medical Oncologist/Icebox Worker Hematology and Oncology 12/11/18 Rene Harris MD [address] [place] [address] Consulting Physician Cardiology 02/13/24
--- OUTSIDE RECORDS SUMMARY | 2024-05-08 14:21 | XMS_ITS ---
Author Organization [facility] Address [address] [place] [address] Care Team Providers Care Shipping Checker Name Role Phone Azeem Vizcaino Unavailable [phone] REASON FOR VISIT SERVICE PLUMBER Allergies Encounters Encounter Location Date Provider Diagnosis [facility] [address] [place] [address] 03/19/2023 Azeem Vizcaino Plan Of Treatment No Information Progress Notes * Daniel GUILLEN WDOB: (69 yo M)Acc No.[id number]:03/19/2023 Progress Notes Patient: Marcos BULLOCKdanilo Bryant Provider: Elke Vizcaino PA-C :1955 A ge:67 Y S ex:Male Date:03/19/2023 Address:[address] [facility] Subjective: * Chief Complaints: * 1 . 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 * Medical History: Objective: * Vitals: Assessment: Plan: * Treatment: * Billing Information: * Visit Code: * Procedure Codes: * Electronic signature of Kieran Vizcaino PA-C on 05/08/2024 at 11:20 AM CDT Sign off status: Pending * Provider: Elke Vizcaino PA-C Date: 0 03/19/2023 Generated for Gerhard baker/Jessie/eTyoungitting on: 0 05/08/2024 11:20 AM CDT
--- OUTSIDE RECORDS SUMMARY | 2024-05-08 14:21 | XMS_ITS | Patient Health Summary ---
Author Organization [facility] Address [address] [place] [address] Care Team Providers Care B Operator Name Role Phone Shay Hooper MD Primary Care Provider Note from [facility],non-owned Affiliates and Associated Physician Practices is amultiple site organization consisting of ambulatory clinics and hospital sitesin [place], [place], [place] and [place]. This disclosure is being madepursuant to the Care Everywhere program and may not contain all information available regarding this patient. 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 Pathologist [facility] PT (EXTERNAL) 14.2 sec INR (EXTERNAL RESULT) [...] CDT) Case Report Surgical Pathology Report Case: [id number] Authorizing Provider: Luna Hernandez MD Collected: 10/22/2018 03:19 PM Ordering Location: [facility] Pathology Lab Received: 10/23/2018 03:19 PM Pathologist: Floyd Rodriguez MD Specimen: Slide Consultation, [id number] 10/24/2018 10:17 AM CDT [facility] Final Diagnosis Urine, voided, thin prep, cytology: -Negative for high-grade urothelial neoplasia -Slight chronic inflammtion 10/24/2018 10:17 AM CDT [facility] Microscopic Description and Comment Performed. 10/24/2018 10:17 AM CDT [facility] Clinical History History of bladder cancer, cystoscopy negative. 10/24/2018 10:17 AM CDT [facility] Gross Description Prepared slides received from [facility] labeled [id number]. All material will be returned. 10/24/2018 10:17 AM CDT [facility] Disclaimer The performance characteristics of all immunohistochemical and indirect immunofluorescence stains (if any) cited in this report were determined by the Histopathology Laboratory of [facility]. Some of these tests were [...] LAB Embedded Images 10/24/2018 10:17 AM CDT [facility] Pathology/Cytolo gy SURGICAL PATHOLOGY CONSULTATION AND REPORT ON REFERRED SLIDES PREPARED ELSEWHERE / Unknown 10/22/2018 3:19 PM CDT 10/23/2018 3:19 PM CDT Luna Hernandez MD LAB - PATHOLOGY/CYTO LOGY ORDERABLES [facility] [address] [place], [place] [address] [phone] * APHERESIS/TRANSFUSION ORDER (08/14/2018 8:32 PM CDT) [...] - 106 mg/dL 08/08/2018 8:34 AM CDT [facility] Specimen Type Venous 08/08/2018 8:34 AM CDT [facility] Blood BLOOD SPECIMEN / Unknown 08/08/2018 7:16 AM CDT 08/08/2018 8:34 AM CDT Narrative [facility] - 08/08/2018 8:34 AM CDT (2) Provider Notified Angelo Wu MD LAB - POINT OF CARE ORDERABLES [facility] [address] [place] [address] * ENDOTRACHEAL TUBE NOTE (08/08/2018 6:03 AM CDT) Narrative Shaun Cook MD - 08/08/2018 6:03 AM CDT Louise Turcios APRN-TRAINING OFFICER 08/07/2018 2:47 PM Endotracheal Tube Placement: Patient Location: OR. Intubation Event Date/Time: 08/07/2018 2:03 PM Procedure: intubation ([id number]). Procedure Section: Sedation: under general anesthesia. Indications [...] 2:03 PM. Staff Section Anesthesia Provider: LOUISE TURCIOS, Performed the procedure Additional Comments: Intubation performed by SRNA. Leslie Shaun Cook MD GENERAL ANESTHESIA O RDERABLES * GROSS EXAM PATHOLOGY (STL) (08/07/2018 3:11 PM CDT) Case Report Surgical Pathology Report Case: [id number] Authorizing Provider: Angelo Wu MD Collected: 08/07/2018 03:11 PM Ordering Location: [facility] Received: 08/07/2018 03:43 PM Pathologist: Pham Perry MD Specimen: Plaque, right carotid plaque 08/09/2018 1:14 PM CDT [facility] Final Diagnosis Right carotid plaque, endarterectomy: -- Calcified atherosclerotic plaque 08/09/2018 1:14 PM CDT [facility] Gross Description The specimen is received in a formalin-filled container labeled with the patient's name Daniel Treviño and right carotid plaque, and consists of an irregular, unoriented fragment of rubbery yeh tissue (5.2 x 2.2 x 0.2 cm), with scattered rough, hard areas. Parts Runner sections are submitted in cassette A1 following decalcification. /eh 08/09/2018 1:14 PM CDT [facility] Embedded Images 08/09/2018 1:14 PM CDT [facility] Pathology/Cytolo gy PLAQUE / Unknown 08/07/2018 3:11 PM CDT 08/07/2018 3:43 PM CDT Angelo Wu MD LAB - PATHOLOGY/CYTO LOGY ORDERABLES Performing Organization Address [facility] Co de Phone Number [facility] [address] [place] [address] * BLOOD TYPE VERIFICATION (08/07/2018 11:04 AM CDT) ABO A 08/07/2018 11:45 AM CDT [facility] Rh Type Positive 08/07/2018 11:45 AM CDT [facility] Blood Bank BLOOD SPECIMEN / Unknown Venipuncture / Unknown 08/07/2018 11:04 AM CDT 08/07/2018 11:09 AM CDT Angelo Wu MD LAB - BLOOD BANK ORD ERABLES Performing Organization Address [facility] de Phone Number [facility] [address] * EKG 12-LEAD (08/07/2018 10:53 AM CDT) Ventricular Rate 63 BPM [facility] Atrial Rate 63 BPM [facility] P-R Interval 204 ms [facility] QRS Duration ms 92 ms [facility] Q-T Interval ms 412 ms [facility] QTC Calculation (Bezet) 421 ms [facility] Calculated P [place] 6 degrees [facility] Calculated R [place] 25 degrees [facility] Calculated T [place] 54 degrees [facility] Interpretation EKG Normal sinus rhythm Early repolarization Confirmed by LINDA PATHAK, ROCKY ([id number]) on 08/07/2018 3:15:59 PM [facility] 08/07/2018 10:5 3 AM CDT 08/07/2018 3:15 PM CDT Ny Coleman DO ECG ORDERABLES Performing Organization Address City/[facility]/ZIP Co de Phone Number [facility] * TYPE + SCREEN PANEL (08/07/2018 10:47 AM CDT) ABO A 08/07/2018 11:45 AM CDT [facility] Rh Type Positive 08/07/2018 11:45 AM CDT [facility] Comment:History checked. Col lect retype. Antibody Screen Negative 08/07/2018 11:45 AM CDT [facility] Blood Bank BLOOD SPECIMEN / Unknown Venipuncture / Unknown 08/07/2018 10:47 AM CDT 08/07/2018 10:53 AM CDT Ny Coleman DO LAB - BLOOD BANK ORD ERABLES Performing Organization Address [facility] Co de Phone Number [facility] [address] * (ABNORMAL) PTT (08/07/2018 10:47 AM CDT) PTT <21.0(L) 21.0 - 32.0 sec 08/07/2018 11:26 AM CDT [facility] Blood BLOOD SPECIMEN / Unknown Venipuncture / Unknown 08/07/2018 10:47 AM CDT 08/07/2018 10:54 AM CDT Narrative [facility] - 08/07/2018 11:26 AM CDT Specimen is slightly to moderately hemolyzed which may affect results. Specimen recollection is recommended. Heparin Therapeutic Range for PTT: 50.5 - 74.3 seconds. Ny Coleman DO LAB - COAGULATION OR DERABLES Performing Organization Address [facility] Co de Phone Number [facility] [address] [place] [address] * PT-INR (08/07/2018 10:47 AM CDT) PT 10.0 9.5 - 11.6 sec 08/07/2018 11:08 AM CDT [facility] INR 0.9 0.9 - 1.1 08/07/2018 11:08 AM CDT [facility] Blood BLOOD SPECIMEN / Unknown Venipuncture / Unknown 08/07/2018 10:47 AM CDT 08/07/2018 10:54 AM CDT [facility] - 08/07/2018 11:08 AM CDT Specimen is slightly to moderately hemolyzed which may affect results. Specimen recollection is recommended. Conventional Warfarin Anticoagulant Therapy: INR Reference Range: 2.0-3.0 Intensive Warfarin Anticoagulant Therapy: INR Reference Range: 2.5-3.5 Ny Coleman DO LAB - COAGULATION OR DERABLES [facility] [address] [place] [address] * CBC W/O DIFFERENTIAL (08/07/2018 10:47 AM CDT) WBC 6.6 4.4 - 10.7 x10E9/L 08/07/2018 11:08 AM CDT [facility] RBC 4.56 3.80 - 5.40 x10E12/L 08/07/2018 11:08 AM CDT [facility] Hemoglobin 13.6 12.0 - 17.6 gm/dL 08/07/2018 11:08 AM CDT [facility] Hematocrit 41.3 35.2 - 51.7 % 08/07/2018 11:08 AM CDT [facility] MCV 90.6 80.7 - 98.3 fl 08/07/2018 11:08 AM CDT [facility] MCH 29.8 26.7 - 34.0 pg 08/07/2018 11:08 AM CDT [facility] MCHC 32.9 30.8 - 35.9 gm/dL 08/07/2018 11:08 AM CDT [facility] Platelet Count 156 153 - 416 x10E9/L 08/07/2018 11:08 AM CDT [facility] RDW-CV 13.2 12.1 - 14.9 % 08/07/2018 11:08 AM CDT [facility] MPV 9.6 9.4 - 12.9 fl 08/07/2018 11:08 AM CDT [facility] Blood BLOOD SPECIMEN / Unknown Venipuncture / Unknown 08/07/2018 10:47 AM CDT 08/07/2018 10:54 AM CDT Ny Bayron Coleman DO LAB - HEMATOLOGY ORD ERABLES [facility] [address] [place] [address] * (ABNORMAL) COMPREHENSIVE METABOLIC PANEL (08/07/2018 10:47 AM CDT) Glucose 117(H) 74 - 106 mg/dL 08/07/2018 11:14 AM CDT [facility] Sodium 140 136 - 145 mmol/L 08/07/2018 11:14 AM CDT [facility] Potassium 4.0 3.5 - 5.1 mmol/L 08/07/2018 11:14 AM CDT [facility] Chloride 107 98 - 107 mmol/L 08/07/2018 11:14 AM CDT [facility] CO2 25 23 - 31 mmol/L 08/07/2018 11:14 AM CDT [facility] Calcium 9.4 8.4 - 10.2 mg/dL 08/07/2018 11:14 AM CDT [facility] Anion Gap 8 8 - 16 mmol/L 08/07/2018 11:14 AM CDT [facility] BUN 20 8.4 - 25.7 mg/dL 08/07/2018 11:14 AM CDT [facility] Creatinine 1.23(H) 0.73 - 1.18 mg/dL 08/07/2018 11:14 AM CDT [facility] Alkaline Phosphatase 85 40 - 150 U/L 08/07/2018 11:14 AM CDT [facility] ALT 14 13 - 61 U/L 08/07/2018 11:14 AM CDT [facility] AST 16 5 - 34 U/L 08/07/2018 11:14 AM CDT [facility] Protein Total 7.7 6.4 - 8.3 gm/dL 08/07/2018 11:14 AM CDT [facility] Albumin 4.3 3.2 - 4.6 gm/dL 08/07/2018 11:14 AM CDT [facility] Bilirubin Total 0.7 0.2 - 1.2 mg/dL 08/07/2018 11:14 AM CDT [facility] eGFR by MDRD 59(L) >60 mL/min/1.7 3m2 08/07/2018 11:14 AM CDT [facility] eGFR by MDRD >60 >60 mL/min/1.7 3m2 08/07/2018 11:14 AM CDT [facility] Blood BLOOD SPECIMEN / Unknown Venipuncture / Unknown 08/07/2018 10:47 AM CDT 08/07/2018 10:54 AM CDT Narrative [facility] - 08/07/2018 11:14 AM CDT Attention clinician: BUN Reference Range has changed. Ny Coleman DO LAB - CHEMISTRY WENDY MCKEON [facility] [address] [place] [address] * VASCULAR LAB ORDER (07/24/2018) Anatomical Region [...] T4 FREE (EXTERNAL RESULT ENTRY) (05/09/2018) Pathologist [facility] T4 Free (EXTERNAL RESULT) 1.51 0.78 - 2.19 ng/dl Blood BLOOD SPECIMEN / Unknown 05/09/2018 Historical Provider LAB - CHEMISTRY O RDERABLES * MICROALB/CREAT RATIO URINE (EXTERNAL RESULT ENTRY) (05/09/2018) Only the most recent of2 resultswithin the time period is included. Pathologist [facility] Microalb/Creat Ratio (EXTERNAL RESULT) 20.2 0.0 - 30.0 mg/g Urine URINE / Unknown 05/09/2018 Historical Provider LAB - URINE CHEMI STRY ORDERABLES * (ABNORMAL) HEMOGLOBIN A1C (EXTERNAL RESULT ENTRY) (05/09/2018) Only the most recent of2 resultswithin the time period is included. Pathologist [facility] Hemoglobin A1c (EXTERNAL RESULT) 7.4(A) 0.0 - 5.7 % Blood BLOOD SPECIMEN / Unknown 05/09/2018 Historical Provider LAB - CHEMISTRY O RDERABLES * MITOCHONDRIAL ANTIBODY SCREEN (12/09/2013 1:21 PM CDT) Pathologist [facility] Mitochondrial M2 Antibody 3.8 0.0 - 20.0 Units [facility] Comment: Mitochondrial M2 Antibody Numeric Result Interpretation: <20.1 Units: Negative 20.1 - 24.9 Units: Equivocal >24.9 Units: Positive Blood specimen (specimen) BLOOD SPECIMEN / Unknown 12/09/2013 1:21 PM CDT 12/09/2013 2:11 PM CDT Yon Carolina MD LAB - CHEMISTRY ORDERABLES [address] [phone] * (ABNORMAL) CXFXV-0-CHOOMQOHXUM BLOOD PHENOTYPING PANEL (12/09/2013 1:21 PM CDT) Fwckx-9-Fbbavjqtps n 215(H) 90 - 200 mg/dL [facility] (BEAKER) Phenotype (PI) MM [facility] (BEAKER) Comment: Phenotype Population A-1-AT [...] PM CDT 12/09/2013 2:11 PM CDT Narrative [facility] (BEAKER) - 12/12/2013 5:13 PM CDT Performed at: - Lab[address] [id number] Pharmacy Services Director: Serge Collins PhD, Phone: [phone] Performed at: - [address] [id number] Pharmacy Services Director: Pilo Selby MD, Phone: [phone] Yon Carolina MD LAB - CHEMISTRY ORDERABLES Performing Organization Address City/[facility]/ZIP Co de Phone Number [facility] ([facility]) * SILVER BLOOD SCREEN W/REFLEX TITER (12/09/2013 1:21 PM CDT) SILVER IFA Negative [facility] ([facility]) Comment: Negative <1:80 Borderline 1:80 Positive >1:80 Blood specimen (specimen) BLOOD SPECIMEN / Unknown 12/09/2013 1:21 PM CDT 12/09/2013 2:11 PM CDT Narrative [facility] ([facility]) - 12/11/2013 5:14 PM CDT Performed at: [address] [place] [id number] Pharmacy Services Director: Serge Collins PhD, Phone: [phone] Yon Carolina MD LAB - CHEMISTRY ORDERABLES Performing Organization Address [facility] Co de Phone Number [facility] ([facility]) * TRANSFERRIN (12/09/2013 1:21 PM CDT) Transferrin 304 174 - 382 mg/dL [facility] Transferrin Saturation % 21 16 - 50 % [facility] Blood specimen (specimen) BLOOD SPECIMEN / Unknown 12/09/2013 1:21 PM CDT 12/09/2013 2:12 PM CDT Yon Carolina MD LAB - CHEMISTRY ORDERABLES Performing Organization Address [facility] Co de Phone Number [address] [phone] * CERULOPLASMIN (12/09/2013 1:21 PM CDT) Ceruloplasmin 22 20 - 60 mg/dL [facility] Blood specimen (specimen) BLOOD SPECIMEN / Unknown 12/09/2013 1:21 PM CDT 12/09/2013 2:12 PM CDT Yon Carolina MD LAB - CHEMISTRY ORDERABLES [facility] [address] [place] [address], [facility] [phone] * IRON BLOOD (12/09/2013 1:21 PM CDT) Iron 79 50 - 175 mcg/dL [facility] Blood specimen (specimen) BLOOD SPECIMEN / Unknown 12/09/2013 1:21 PM CDT 12/09/2013 2:12 PM CDT Yon Carolina MD LAB - CHEMISTRY ORDERABLES Performing Organization Address City/[facility]/ZIP Co de Phone Number [facility] [address] [place] [address], [facility] [phone] * FROZEN SECTION (01/04/2005 5:45 PM 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 The specimen is received in a fresh labeled with the patient's name, Daniel Treviño, and posterior fossa tumor. The specimen is composed of multiple soft white to yeh hemorrhagic tissue, consistent with brain. It measures 2 x 1 x 0.5 cm. in aggregate. A loan servicing representative section is submitted for frozen section [...] 0.6 cm., submitted entirely in cassette D. MS truong Microscopic Exam Permanent sections confirm the frozen [...] of stoke. Case discussed with Dr. Perrin. /bk Diagnosis FROZEN SECTION DIAGNOSIS I. Posterior fossa tumor, frozen section diagnosis -- FSA - Necrotic brain tissue, defer for permanents. (). FINAL DIAGNOSIS I. Posterior fossa tumor, biopsy -- Necrotic brain tissue (see microscopic description) -- Negative for malignancy. II. Posterior fossa tumor, biopsy -- Necrotic brain tissue (see microscopic description) -- Negative for malignancy. / Boat Detailer bk Pathologist Ivy Ramos M.D. [place]. 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
--- OUTSIDE RECORDS SUMMARY | 2024-05-08 14:21 | XMS_ITS | Clinical Summary ---
Author Organization [facility] Address [address] [place] [id number] Care Team Providers Care Medical Editor Name Role Phone Krish Hooper MD Primary Care Provide r Jorge Jorge DO Unavailable [phone] Rene Harris MD Unavailable Allergies Active Allergy [...] Department Care Team Description 04/01/2024 Orders Only [facility] Cardiology [address] [place] [address] Nimisha Ryan MD 02/12/2024 11:36 AM MANAGER OF EMPLOYEE RELATIONS - 02/12/2024 1:36 PM MANAGER OF EMPLOYEE RELATIONS Surgery [facility] Cardiac Catheterization Lab [address] [place] [address] Rene Harris MD PCI PTCA - MAJOR CORONARY [id number] 02/12/2024 9:26 AM MANAGER OF EMPLOYEE RELATIONS - 02/13/2024 10:31 AM MANAGER OF EMPLOYEE RELATIONS Hospital Encounter [facility] [address] [place] [address] Rene Harris MD Chest pain Discharge Disposition: Discharge to home or self care from Last 3 Months Immunizations Immunization Administration Dates Next Due Tdap 02/06/2017 Surgical History Surgery Date Site/Laterality Comments BRAIN SURGERY BLADDER SURGERY APPENDECTOMY Medical History Medical History Date Comments Stroke (HCC) Bladder carcinoma (HCC) Hypertension no longer on med ications for Hyperlipidemia PVD (peripheral vascular disease) Type 2 diabetes mellitus wit h circulatory [...] on file Legal Sex Male 7:05 PM MANAGER OF EMPLOYEE RELATIONS Gender Identity Not on file Sexual Orientation Not on file Obstetrics History Last Filed Vital Signs Vital Sign Reading Time Taken Comments Blood Pressure 130/54 02/13/2024 8:04 AM MANAGER OF EMPLOYEE RELATIONS Pulse 67 02/13/2024 8:04 AM MANAGER OF EMPLOYEE RELATIONS Temperature 36.9 C (98.5 F) 02/13/2024 8:04 AM MANAGER OF EMPLOYEE RELATIONS Respiratory Rate 18 02/13/2024 8:04 AM MANAGER OF EMPLOYEE RELATIONS Oxygen Saturation 99% 02/13/2024 8:04 AM MANAGER OF EMPLOYEE RELATIONS Inhaled Oxygen Concentration - - Weight 83.5 kg (184 lb) 02/12/2024 3:20 PM MANAGER OF EMPLOYEE RELATIONS Height 180.3 cm (5' 11 ) 02/12/2024 3:20 PM MANAGER OF EMPLOYEE RELATIONS Body Mass Index 25.66 02/12/2024 3:20 PM MANAGER OF EMPLOYEE RELATIONS Plan of Treatment Health Maintenance Due Date Last Done Comments Albumin Creatinine Ratio, Urine 1955 Colon Cancer Screening-Colonoscopy 1955 Hepatitis C Screening 1955 Prostate Cancer Screening-PSA 1955 Dilated Eye Exam 1955 Foot Exam 1955 Hepatitis B Screening 05/05/1973 Pneumococcal vaccine 65+ (1 of 2 - PCV) 05/05/1974 Zoster Vaccine (1 of 2) 05/05/1974 Hemoglobin A1C 03/21/2018 09/18/2017 Depression Screening 09/17/2018 09/17/2017, 09/18/19 18 Lipid Panel 09/18/2018 09/18/2017 Abdominal Aortic Aneurysm (A AA) Screen 05/05/2020 Well Visit 65+ 05/05/2020 Influenza Vaccine (#1) 2023 Fall Risk Assessment 02/12/2025 02/13/2024 eGFR 02/12/2025 02/13/2024, 01/26, 08/24/2021 DTaP/Tdap/Td Vaccine (2 - Td or Tdap) 02/06/202701/2017 Medical Devices Implanted Type Area Heavy Duty Custodian Device Identifier Shelf Expiration Date Model / Serial / Lot [employer] Rubens Synergy Xd Monorail 4mm 32mm 144cm Delivery System 1 Access Port [id number] - [id number] Implanted:Qty: 1 on 02/12/2024 by Rene Harris MD at [facility] [employer] 11/28/2024 [id number] / [id number] Procedures Procedure Name Priority Date/Time Associated Diagnosis Comments CARDIOLOGY DOCUMENT SCAN Routine 03/27/2024 10:46 AM MANAGER OF EMPLOYEE RELATIONS CARDIOLOGY DOCUMENT SCAN Routine 03/26/2024 10:43 AM MANAGER OF EMPLOYEE RELATIONS POCT GLUCOSE DEVICE Routine 02/13/2024 7 :52 AM MANAGER OF EMPLOYEE RELATIONS EGFR Routine 02/13/2024 2:34 AM MANAGER OF EMPLOYEE RELATIONS BASIC METABOLIC PANEL Routine 02/13/2024 2:34 AM MANAGER OF EMPLOYEE RELATIONS APTT Routine 02/12/2024 3:35 PM MANAGER OF EMPLOYEE RELATIONS POCT ACTIVATED CLOTTING TIME, HIGH RANGE Routine 02/12/2024 2:28 PM MANAGER OF EMPLOYEE RELATIONS POCT ACTIVATED CLOTTING TIME, HIGH RANGE Routine 02/12/2024 1:54 PM MANAGER OF EMPLOYEE RELATIONS POCT GLUCOSE DEVICE Routine 02/12/2024 1 :33 PM MANAGER OF EMPLOYEE RELATIONS PERCUTAINEOUS TRANSLUMINAL CORONARY ANGIOPLASTY OF ONE MAJOR CORONARY Routine 02/12/2024 1:19 PM MANAGER OF EMPLOYEE RELATIONS Chest pain POCT ACTIVATED CLOTTING TIME, HIGH RANGE Routine 02/12/2024 1:00 PM MANAGER OF EMPLOYEE RELATIONS POCT ACTIVATED CLOTTING TIME, HIGH RANGE Routine 02/12/2024 12:33 PM MANAGER OF EMPLOYEE RELATIONS POCT GLUCOSE DEVICE Routine 02/12/2024 1 0:45 AM MANAGER OF EMPLOYEE RELATIONS EGFR Routine 02/12/2024 10:13 AM MANAGER OF EMPLOYEE RELATIONS DIFFERENTIAL AUTO Routine 02/12/2024 10: 13 AM MANAGER OF EMPLOYEE RELATIONS PROTIME-INR Routine 02/12/2024 10:13 AM MANAGER OF EMPLOYEE RELATIONS CBC WITH AUTO DIFFERENTIAL Routine 02/12/2024 10:13 AM MANAGER OF EMPLOYEE RELATIONS BASIC METABOLIC PANEL Routine 02/12/2024 10:13 AM MANAGER OF EMPLOYEE RELATIONS ECG 12-LEAD Routine 02/12/2024 10:06 AM MANAGER OF EMPLOYEE RELATIONS POCT GLUCOSE DEVICE Routine 02/12/2024 9 :49 AM MANAGER OF EMPLOYEE RELATIONS HEMOGLOBIN A1C Routine 09/18/2017 6:16 AM CDT LIPID PANEL STAT 09/18/2017 6:16 AM CDT from Last 3 Months or Most Recently Relevant to Health Maintenance Results * Cardiology Document Scan (03/27/2024 10:46 AM MANAGER OF EMPLOYEE RELATIONS) Anatomical Region Laterality Modality Other Shawn Vyas MD CV CARDIAC SERVICES PROCEDURES F inal Result * Cardiology Document Scan (03/26/2024 10:43 AM MANAGER OF EMPLOYEE RELATIONS) Anatomical Region Laterality Modality Other Nimisha Ryan MD CV CARDIAC SERVICES PRO CEDURES Final Result * POCT glucose (02/13/2024 7:52 AM MANAGER OF EMPLOYEE RELATIONS) Glucose, POC 119 70 - 199 mg/dL Blood 02/13/2024 7:52 AM MANAGER OF EMPLOYEE RELATIONS 02/13/2024 7:52 AM MANAGER OF EMPLOYEE RELATIONS Rene Harris MD LAB POCT ORDERABLES - DEVICE Fin al Result NINA [address] Department [place] [address] * (ABNORMAL) eGFR (02/13/2024 2:34 AM MANAGER OF EMPLOYEE RELATIONS) eGFR 57(L) >=60 mL/min/1. 73 m2 Comment: [...] last reviewed 2020. Blood 02/13/2024 2:34 AM MANAGER OF EMPLOYEE RELATIONS 02/13/2024 3:28 AM MANAGER OF EMPLOYEE RELATIONS Rene Harris MD LAB BLOOD ORDERABLES Final Resul t [facility] [address] Department [place] [address] * (ABNORMAL) Basic metabolic panel (02/13/2024 2:34 AM MANAGER OF EMPLOYEE RELATIONS) Sodium 138 135 - 145 mmol/L Potassium, pl 4.1 3.3 - 4.9 mmol/L [facility] Chloride 107 97 - 110 mmol/L [facility] CO2 20(L) 22 - 32 mmol/L [facility] Anion gap 11 2 - 15 mmol/L [facility] BUN 18 6 - 25 mg/dL [facility] Creatinine 1.35(H) 0.80 - 1.30 mg/dL [facility] Glucose 105 70 - 199 mg/dL [facility] Comment: Interpretive Data Fasting glucose >/= [...] 2022. Calcium 9.0 8.5 - 10.3 mg/dL NINA DAVID Blood 02/13/2024 2:34 AM MANAGER OF EMPLOYEE RELATIONS 02/13/2024 3:28 AM MANAGER OF EMPLOYEE RELATIONS Rene Harris MD LAB BLOOD ORDERABLES Final Resul t Performing Organization Address [facility]/ZIP Co de Phone Number NINA [address] Department [place] [address] * (ABNORMAL) aPTT (02/12/2024 3:35 PM MANAGER OF EMPLOYEE RELATIONS) aPTT >150(C) 28 - 38 sec Comment: Critical result called to and read back by Prema Pulliam (RN _) on 02/12/2024 17:10:38 MANAGER OF EMPLOYEE RELATIONS _ to _ [place]. Interpretive Data Heparin therapeutic range: 66.0 - 100.0 seconds. Range based on correlation with therapeutic heparin activity range of 0.3 - 0.7 Units/mL. Current interpretive data was last revised on 2022. Blood 02/12/2024 3:35 PM MANAGER OF EMPLOYEE RELATIONS 02/12/2024 3:43 PM MANAGER OF EMPLOYEE RELATIONS Narrative NINA DAVID - 02/12/2024 5:11 PM MANAGER OF EMPLOYEE RELATIONS Draw aPTT 2 hours after anticoagulant discontinued. Rene Harris MD LAB BLOOD ORDERABLES Final Resul t Performing Organization Address City/[facility]/ZIP Co de Phone Number NINA [address] Department [place] [address] * (ABNORMAL) POC Activated Clotting Time, High Range (02/12/2024 2:28 PM MANAGER OF EMPLOYEE RELATIONS) ACT 173(H) 87 - 138 sec Blood 02/12/2024 2:28 PM MANAGER OF EMPLOYEE RELATIONS 02/12/2024 2:28 PM MANAGER OF EMPLOYEE RELATIONS Rene Harris MD LAB BLOOD ORDERABLES Final Resul t Performing Organization Address [facility] Co de Phone Number NINA DAVID [phone] [facility] [place] [address] * (ABNORMAL) POC Activated Clotting Time, High Range (02/12/2024 1:54 PM MANAGER OF EMPLOYEE RELATIONS) ACT 219(H) 87 - 138 sec Blood 02/12/2024 1:54 PM MANAGER OF EMPLOYEE RELATIONS 02/12/2024 1:54 PM MANAGER OF EMPLOYEE RELATIONS Rene Harris MD LAB BLOOD ORDERABLES Final Resul t Performing Organization Address [facility] de Phone Number NINA DAVID [address] [facility] [place] [address] * POCT glucose (02/12/2024 1:33 PM MANAGER OF EMPLOYEE RELATIONS) Glucose, POC 81 70 - 199 mg/dL Blood 02/12/2024 1:33 PM MANAGER OF EMPLOYEE RELATIONS 02/12/2024 1:33 PM MANAGER OF EMPLOYEE RELATIONS Rene Harris MD LAB POCT ORDERABLES - DEVICE Fin al Result Performing Organization Address [facility] de Phone Number NINA DAVID [address] [facility] [place] [address] * PERCUTAINEOUS TRANSLUMINAL CORONARY ANGIOPLASTY OF ONE MAJOR CORONARY (02/12/2024 1:19 PM MANAGER OF EMPLOYEE RELATIONS) Anatomical Region Laterality Modality X-Ray Angiograph y Narrative 02/12/2024 1:34 PM MANAGER OF EMPLOYEE RELATIONS Findings: This is a 68-year-old male who has a known history of hepatocellular cancer and is receiving maintenance therapy from an oncologist at [facility]. He received his maintenance chemotherapy several weeks [...] of the vessel we accessed the right DESCRIPTIVE CATALOG LIBRARIAN and placed a 7 sheath. I then used a 6 Estonian JR4 guide catheter and engaged the RCA [...] the LAD diagonal. I used a 7 Estonian EBU 3 5 guide catheter engaged the [...] Clotting Time, High Range (02/12/2024 1:00 PM MANAGER OF EMPLOYEE RELATIONS) ACT 208(H) 87 - 138 sec Blood 02/12/2024 1:00 PM MANAGER OF EMPLOYEE RELATIONS 02/12/2024 1:00 PM MANAGER OF EMPLOYEE RELATIONS us Rene Harris MD LAB BLOOD ORDERABLES Final Resul t Performing Organization Address [facility] de Phone Number NINA [address] [place] [address] * (ABNORMAL) POC Activated Clotting Time, High Range (02/12/2024 12:33 PM MANAGER OF EMPLOYEE RELATIONS) ACT 351(H) 87 - 138 sec Blood 02/12/2024 12:3 3 PM MANAGER OF EMPLOYEE RELATIONS 02/12/2024 12:33 PM MANAGER OF EMPLOYEE RELATIONS us Rene Harris MD LAB BLOOD ORDERABLES Final Resul t Performing Organization Address [facility] de Phone Number NINA [address] [place] [address] * POCT glucose (02/12/2024 10:45 AM MANAGER OF EMPLOYEE RELATIONS) Glucose, POC 100 70 - 199 mg/dL Blood 02/12/2024 10:4 5 AM MANAGER OF EMPLOYEE RELATIONS 02/12/2024 10:45 AM MANAGER OF EMPLOYEE RELATIONS us Rene Harris MD LAB POCT ORDERABLES - DEVICE Fin al Result Performing Organization Address [facility] de Phone Number NINA DAVID [address] Department [place] [address] * (ABNORMAL) eGFR (02/12/2024 10:13 AM MANAGER OF EMPLOYEE RELATIONS) eGFR 51(L) >=60 mL/min/1. 73 m2 Comment: [...] reviewed 2020. Blood 02/12/2024 10:1 3 AM MANAGER OF EMPLOYEE RELATIONS 02/12/2024 10:36 AM MANAGER OF EMPLOYEE RELATIONS Rene Harris MD LAB BLOOD ORDERABLES Final Resul t NINA FRANKIE [address] Department [place] [address] * (ABNORMAL) Differential, auto (02/12/2024 10:13 AM MANAGER OF EMPLOYEE RELATIONS) Neutrophil abs 2.1 1.5 - 6.5 K/cumm Imm gran abs 0.0 0.0 - 0.1 K/cumm [facility] Lymphocyte abs 0.5(L) 0.8 - 3.3 K/cumm [facility] Monocyte abs 0.4 0.2 - 0.8 K/cumm [facility] Eosinophil abs 0.2 0.0 - 0.5 K/cumm [facility] Basophil abs 0.0 0.0 - 0.1 K/cumm [facility] Neutrophil pct 64.3 % [facility] Comment: Interpretive Data Percent cell count reference ranges are not reported, since discordance with absolute values may lead to misinterpretation of CBC data. Current Interpretive Data was last revised on 2017. Imm gran pct 0.3 % NINA Comment: Interpretive Data Percent cell count reference ranges are not reported, since discordance with absolute values may lead to misinterpretation of CBC data. Current Interpretive Data was last revised on 2017. Lymphocyte pct 16.6 % NINA Comment: Interpretive Data Percent cell count reference ranges are not reported, since discordance with absolute values may lead to misinterpretation of CBC data. Current Interpretive Data was last revised on 2017. Monocyte pct 11.6 % [facility] Comment: Interpretive Data Percent cell count reference ranges are not reported, since discordance with absolute values may lead to misinterpretation of CBC data. Current Interpretive Data was last revised on 2017. Eosinophil pct 6.6 % NINA Comment: Interpretive Data Percent cell count reference ranges are not reported, since discordance with absolute values may lead to misinterpretation of CBC data. Current Interpretive Data was last revised on 2017. Basophil pct 0.6 % [facility] Comment: Interpretive Data Percent cell count reference ranges are not reported, since discordance with absolute values may lead to misinterpretation of CBC data. Current Interpretive Data was last revised on 2017. Blood 02/12/2024 10:1 3 AM MANAGER OF EMPLOYEE RELATIONS 02/12/2024 10:37 AM MANAGER OF EMPLOYEE RELATIONS Rene Harris MD LAB BLOOD ORDERABLES Final Resul t NINA [address] [place] [address] * (ABNORMAL) CBC with auto differential (02/12/2024 10:13 AM MANAGER OF EMPLOYEE RELATIONS) WBC 3.2(L) 3.8 - 9.9 K/cumm Hgb 8.8(L) 13.0 - 17.5 g/dL NINA Hct 27.2(L) 38.9 - 50.3 % [facility] Plt 147(L) 150 - 400 K/cumm [facility] MPV 9.3 9.1 - 12.3 fL [facility] RBC 2.82(L) 4.30 - 5.80 M/cumm [facility] MCV 96.5(H) 81.3 - 96.4 fL [facility] MCH 31.2 27.1 - 33.3 pg [facility] MCHC 32.4 32.3 - 35.7 g/dL [facility] RDW CV 14.5 11.1 - 14.9 % [facility] RDW SD 50.4(H) 35.7 - 48.1 fL [facility] NRBC abs 0.00 0.00 - 0.01 K/cumm [facility] Blood 02/12/2024 10:1 3 AM MANAGER OF EMPLOYEE RELATIONS 02/12/2024 10:37 AM MANAGER OF EMPLOYEE RELATIONS Narrative [facility] - 02/12/2024 10:42 AM MANAGER OF EMPLOYEE RELATIONS If most recent labs were drawn prior to 4 AM, draw only prior to initiating procedure. Rene Harris MD LAB BLOOD ORDERABLES Final Resul t [facility] [address] Department [place] [address] * (ABNORMAL) Protime-INR (02/12/2024 10:13 AM MANAGER OF EMPLOYEE RELATIONS) PT 13.9(H) 9.7 - 13.0 sec INR 1.28(H) 0.90 - 1.20 [facility] Comment: Interpretive data Oral anticoagulant therapeutic ranges: Venous thromboembolism prophylaxis or treatment: 2.0-3.0 CARDIOLOGY Standard range: 2.0-3.0 High-intensity range: 2.5-3.5 Refer to indication-specific guidelines for appropriate target ranges for prosthetic heart valve replacement. Current interpretive data was last revised on 2019. Blood 02/12/2024 10:1 3 AM MANAGER OF EMPLOYEE RELATIONS 02/12/2024 10:37 AM MANAGER OF EMPLOYEE RELATIONS us Rene Harris MD LAB BLOOD ORDERABLES Final Resul t NINA DAVID [address] Department [place] [address] * (ABNORMAL) Basic metabolic panel (02/12/2024 10:13 AM MANAGER OF EMPLOYEE RELATIONS) Sodium 137 135 - 145 mmol/L Potassium, pl 4.3 3.3 - 4.9 mmol/L [facility] Chloride 106 97 - 110 mmol/L [facility] CO2 23 22 - 32 mmol/L [facility] Anion gap 8 2 - 15 mmol/L [facility] BUN 18 6 - 25 mg/dL [facility] Creatinine 1.48(H) 0.80 - 1.30 mg/dL [facility] Glucose 95 70 - 199 mg/dL [facility] Comment: Interpretive Data Fasting glucose >/= 126 [...] 2022. Calcium 9.1 8.5 - 10.3 mg/dL [facility] Blood 02/12/2024 10:1 3 AM MANAGER OF EMPLOYEE RELATIONS 02/12/2024 10:36 AM MANAGER OF EMPLOYEE RELATIONS Rene Harris MD LAB BLOOD ORDERABLES Final Resul t NINA DAVID [address] Department [place] [address] * POCT glucose (02/12/2024 9:49 AM MANAGER OF EMPLOYEE RELATIONS) Glucose, POC 88 70 - 199 mg/dL Blood 02/12/2024 9:49 AM MANAGER OF EMPLOYEE RELATIONS 02/12/2024 9:49 AM MANAGER OF EMPLOYEE RELATIONS Rene Harris MD LAB POCT ORDERABLES - DEVICE Fin al Result Performing Organization Address City/[facility]/ZIP Co de Phone Number NINA [address] [address] [place] [address] * (ABNORMAL) Hemoglobin A1c (09/18/2017 6:16 AM CDT) Hgb A1C 7.2(H) 4.0 - 5.6 % [facility] Estimated Average Glucose 160 mg/dL [facility] Comment: The ADA recommends reporting an estimated Average Glucose (eAG) with all Hemoglobin A1c results using the equation derived from a study of 507 normal and diabetic adults. Minority populations were underrepresented and children were not included. (Diabetes Care 31:3848-7983, 2008). The eAG is not equivalent to a fasting glucose. Blood specimen (specimen) 09/18/2017 6:16 AM CDT 09/18/2017 7:44 AM CDT Narrative [facility] - 09/18/2017 8:10 AM CDT Aiden Parker MD LAB BLOOD ORDERABLES Final Result Performing Organization Address City/[facility] Co de Phone Number [facility] [address] [facility] Department [place] [address] * (ABNORMAL) Lipid panel (09/18/2017 6:16 AM CDT) Cholesterol 140 30 - 200 mg/dL [facility] Comment: Interpretive Data Desirable: <200 mg/dL Borderline high: 200-239 mg/dL High: > or = 240 mg/dL Literature Reference: National Cholesterol Education Program (NCEP) Expert Panel on Detection, Evaluation, and Treatment of High Blood Cholesterol in Adults (Adult Treatment Panel III). Circulation 2004; 110:227. Current interpretive data was last revised on 2014. Triglycerides 95 0 - 150 mg/dL [facility] Comment: Interpretive Data Desirable: < 150 mg/dL Borderline High: 150 - 199 mg/dL High: 200 - 499 mg/dL Very High: > or = 499 mg/dL Literature Reference: See Cholesterol Current interpretive data was last revised on 2014. HDL 32(L) >=40 mg/dL [facility] Comment: Interpretive Data Less than 40 mg/dL - low; A major risk factor for heart disease. Greater than or equal to 60 mg/dL - High; considered protective of heart disease. Literature Reference: See Cholesterol Current interpretive data was last revised on 2014. LDL, calculated 89 10 - 129 mg/dL [facility] Comment: Interpretive Data Optimal: < 100 mg/dL Near Optimal: 100 - 129 mg/dL Borderline High: 130 - 159 mg/dL High: 160 - 189 mg/dL Very high: > or = 190 mg/dL Literature Reference: See Cholesterol Current interpretive data was last revised on 2014. Non-HDL Cholesterol 108 mg/dL [facility] Comment: Interpretive Data When triglycerides are >200 mg/dL, non-HDL C is a secondary target of therapy, with a goal 30 mg/dL higher than the identified LDL-C goal. Reference: See Cholesterol Reference. Current interpretive data was last revised 2014. Blood specimen (specimen) 09/18/2017 6:16 AM CDT 09/18/2017 7:42 AM CDT Narrative [facility] - 09/18/2017 6:[address] AIDEN PARKER 09/18/2017 17:13:25 CDT Aiden Parker MD LAB BLOOD ORDERABLES Final Result [facility] [address] [facility] Department [place] [address] from Last 3 Months or Most Recently Relevant to Health Maintenance Insurance [facility] MEDICARE HMO [employer] MEDICARE HMO Advance Directives For more information, please contact: [phone] * Full Code (Latest Code Status on File) Date Activated Date Inactivated Comments 02/12/2024 3:20 PM 02/13/2024 2:36 PM * Full Code Date Activated Date Inactivated Comments 09/18/2017 5:47 AM 09/19/2017 5:05 PM Care Teams Medical Editor Relationship Specialty Start Date End Date Krish Hooper MD [address] [place] [address] PCP - General Internal Medicine 12/07/17 Jorge Jorge DO [address] [place] [address] Medical Oncologist/Crop Grain Or Livestock Farmer Hematology and Oncology 12/11/18 Rene Harris MD [address] [place] [address] Consulting Physician Cardiology 02/13/24
--- OUTSIDE RECORDS SUMMARY | 2024-05-08 14:21 | XMS_ITS | Clinical Summary ---
Author Organization [facility] Address [address] [place] [address] Phone Care Team Providers Care Observatory Director Name Role Phone Provider, Not On File [...] and at bedtime. Active ergocalciferol (VITAMIN D) 64548 UNIT Capsule Take 50,000 Units by mouth. [...] this topic Medical Devices Implanted Type Area Ergonomics Engineer Device Identifier Shelf Expiration Date Model / Serial / Lot Implant Nasal 16mm Steroid Release Zip Tie Propel Mometasone Furoate 370 Mcg Mini 4mm - [id number] Implanted:Qty: 1 on 10/03/2022 by Lalito Acuña MD at [facility] IMPLANT Left: [employer] 09/28/2023 [id number] / [id number] / [id number] Implant Nasal 16mm Steroid Release Zip Tie Propel Mometasone Furoate 370 Mcg Mini 4mm - [id number] Implanted:Qty: 1 on 10/03/2022 by Lalito Acuña MD at [facility] IMPLANT Right: Sinus [employer] 11/09/2023 [id number] / [id number] / [id number] Explanted Type Area Ergonomics Engineer Device Identifier Shelf Expiration Date Model / Serial / Lot Implant Nasal 16mm Steroid Release Zip Tie Propel Mometasone Furoate 370 Mcg Mini 4mm - [id number] Explanted:Qty: 1 on 10/03/2022 at [facility] IMPLANT Right: Sinus [employer] 09/28/2023 [id number] / [id number] / [id number] Insurance MEDICARE C [employer] Care Teams Observatory Director Relationship Specialty Start Date End Date Provider, Not On File [place] PCP - General 10/03/22
--- OUTSIDE RECORDS SUMMARY | 2024-05-08 14:21 | XMS_ITS | Clinical Summary ---
Author Organization [facility] Facility Address [address] [address] Care Team Providers Care Return Clerk Name Role Phone Shay Hooper MD Primary Care Provider [phone] Allergies Active Allergy Reactions Criticality Noted Date Comments Codeine 05/10/2021 Penicillins 05/10/2021 Medications torsemide (DEMADEX) 10 MG tablet Take 1 tablet (10 mg total) by mouth every morning 90 tablet 1 2 Active ergocalciferol 1.25 MG (50765 UT) capsule Take 1 capsule (50,000 Units total) by mouth every 30 (thirty) days 4 capsule 1 2 Active atorvastatin (LIPITOR) 20 MG tablet Take 1 tablet (20 mg total) by mouth every night 90 tablet 1 3 Active MAGnesium-Oxide 400 (240 Mg) MG tablet Take 1 tablet by mouth once daily 90 tablet 4 Active insulin degludec (Tresiba FlexTouch) 100 UNIT/ML injection Inject 30 Units under the skin 1 (one) time each day 6 mL 1 5 Active insulin degludec (Tresiba FlexTouch) 100 UNIT/ML injection Inject 30 Units under the skin every night 8 05/07/19 25 Discontinu ed(Reorder (does not appear on AVS)) Encounters Date Type Department Care Team Description 05/08/2024 Documentation Only [facility], [address] [address] Emiliano Washington DO 2024 2:45 PM CDT Office Visit [facility], [facility] [address] [phone] Emiliano Washington DO Stage 3 chronic kidney disease, not otherwise specified (HCC) (Primary Dx); Acute kidney failure with tubular necrosis (HCC); Alcoholic fibrosis and sclerosis of liver; Esophageal varices associated with another disorder (HCC); Stroke, not otherwise specified (HCC); Peripheral vascular disease (HCC); Hypertensive chronic kidney disease; Type 2 diabetes mellitus with diabetic chronic kidney disease (HCC); Pure hypercholesterolemi a, not otherwise specified; Tobacco use 2024 Refill [facility], [facility] [address] [facility] [address] [place] [address] Cally Kruger CMA 05/02/2024 Documentation Only [facility], [address] [address] Emiliano Washington, DO 04/25/2024 Documentation Only [facility], [address] [address] Emiliano Washington, 04/25/2024 Documentation Only [facility], [address] [address] Emiliano Washington, DO 03/26/2024 Documentation Only [facility], [address] [address] Emiliano Washington, 02/29/2024 Documentation Only [facility], [address] [address] Emiliano Washington, 02/17/2024 Refill [facility], [facility] [address] [phone] Emiliano Washington, from Last 3 Months Social History Tobacco Use Types Packs/Day Years Used Date Smoking Tobacco: Never Assessed Sex and Gender Information Value Date Recorded Sex Assigned at Not on file Legal Sex Male 2:49 PM EST Gender Identity Not on file Sexual Orientation Not on file Last Filed Vital Signs Vital Sign Reading Time Taken Comments Blood Pressure 120/60 2024 3:13 PM CDT Pulse 68 2024 3:13 PM CDT Temperature 36.1 C (97 F) 2024 3:13 PM CDT Respiratory Rate 18 2024 3:13 PM CDT Oxygen Saturation 99% 2024 3:13 PM CDT Inhaled Oxygen Concentration - - Weight 80.7 kg (178 lb) 2024 3:13 PM CDT Height 180.3 cm (5' 11 ) 04/11/2022 12:58 PM NIGHT BAKER Body Mass Index 24.83 04/11/2022 12:58 PM NIGHT BAKER Plan of Treatment Upcoming Encounters Date Type Department Care Team (Late st Contact Info) Description 06/10/2024 4:15 PM CDT Office Visit 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
--- OUTSIDE RECORDS SUMMARY | 2024-05-08 14:21 | XMS_ITS | Clinical Summary ---
Author Organization [facility] Rika Molina Address [address] [place] [address] Care Team Providers Care Shaft Mechanic Name Role Phone Shay Hooper MD Primary [...] tablet Take 2.5 mg by mouth daily. 023 Active aspirin (EDWARD CHEWABLE) 81 mg Tablet, Chewable Take 81 mg by mouth daily. Active atorvastatin (LIPITOR) 20 mg tablet Take 20 mg by mouth daily at bedtime. 023 Active pantoprazole (PROTONIX) [address] for susp in Packet 40 mg 2 times daily. Active pregabalin (LYRICA) 50 mg Capsule Take 50 mg by mouth. 022 Active zolpidem (AMBIEN) 10 mg tablet Take 10 mg by mouth. Active lidocaine-pril ocaine (EMLA) 2.5-2.5 % Cream Apply to affected area see administration instructions. 30 Gram 1 024 Active Tresiba U-100 Insulin 100 unit/mL Solution INJECT 50 UNITS SUBCUTANEOUSLY AT BEDTIME 024 Active Fiasp U-100 Insulin 100 unit/mL Solution INJECT 20 UNITS SUBCUTANEOUSLY THREE TIMES DAILY BEFORE A MEAL Active fluticasone propion-salmet Ludwin (ADVAIR DISKUS,WIXELA INHUB) 250-50 mcg/dose disk inhaler Take 1 Puff by inhalation 2 times daily. Active methylPREDNISo lone (MEDROL DOSPACK) 4 mg Tablets, Dose Pack Use as directed 21 Tablet Active diphenhydrAMIN E (BENADRYL) 50 mg capsule Take 1 Capsule (50 mg) by mouth every 6 hours as needed for Allergies. 30 Capsule Active magnesium oxide (MAG-OX) 400 mg (241.3 mg magnesium) tablet Take 1 Tablet by mouth daily. Active HYDROcodone-ac etaminophen (NORCO) 5-325 mg tabletIndicati ons:Malignant neoplasm of urinary bladder, unspecified site (CMS/HCC) Take 1 Tablet by mouth every 4 hours as needed for Pain, Moderate. Max Daily Amount: 6 Tablets 20 Tablet Active metoclopramide HCl (REGLAN) 10 mg tablet Take 1 tablet every 6 hours as needed for nausea 20 Tablet Active megestroL (MEGACE) 400 mg/10 mL (40 mg/mL) suspension Take 10 mL (400 mg) by mouth daily. 240 mL 1 Active ondansetron (ZOFRAN) 8 mg Tablet Take 1 Tablet (8 mg) by mouth every 8 hours as needed for Nausea/Emesis. 30 Tablet 1 Active rivaroxaban (Xarelto) 20 mg Tablet Take 1 Tablet (20 mg) by mouth daily. 30 Tablet 4 Active clopidogreL (PLAVIX) 75 mg Tablet take 1 tablet by mouth in the morning Active isosorbide mononitrate (IMDUR) 60 mg Extended Release 24 hour tablet take 1 tablet by mouth in the morning Active nitroglycerin (NITROSTAT) 0.4 mg Tablet, Sublingual nitroglycerin 0.4 mg tablet, sublingual Active nadoloL (CORGARD) 40 mg tablet Take 40 mg by mouth daily. Active nitrofurantoin (MACROBID) 100 mg capsule Take 100 mg by mouth 2 times daily. 02/12/2 025 Active solifenacin (VESICARE) 5 mg Tablet Take 5 mg by mouth daily. 025 Active hydrOXYzine HCL (ATARAX) 50 mg tablet TAKE 1 TABLET BY MOUTH EVERY 8 HOURS NEEDED FOR ITCHING 60 Tablet 025 Active hydrOXYzine HCL (ATARAX) 50 mg tablet TAKE 1 TABLET BY MOUTH EVERY 8 HOURS NEEDED FOR ITCHING 60 Tablet 024 2024 Discontinued Active Problems No known active problems Encounters Date Type Department Care Team Description 2024 Abstract [facility] [place] [address] [place] [address] Tommy Cassidy MD 05/05/2024 Orders Only [facility] [place] [address] [place] [phone] Tommy Cassidy MD Benign hypertension 05/02/2024 Telephone [facility] [place] [address] [place] [address] Tommy Cassidy MD Surgery Questions 04/21/2024 Refill [facility] [place] [address] [place] [phone] Amelia Canseco MD 04/21/2024 Orders Only [facility] [place] [address] [place] [address] Tommy Cassidy MD Benign hypertension 04/10/2024 9:15 AM COOKING TEACHER Office Visit [facility] [place] [address] [place] [phone] Tommy Cassidy MD Hepatocarcinoma (CMS/HCC) (Primary Dx) 04/07/2024 Orders Only [facility] [place] [address] [place] [address] Tommy Cassidy MD Benign hypertension 03/25/2024 Orders Only [facility] [place] [address] [place] [phone] Tommy Cassidy MD 03/24/2024 Telephone [facility] [place] [address] [place] [phone] Tommy Cassidy MD Breathing Problem 03/24/2024 Orders Only [facility] [place] [address] [place] [phone] Tommy Cassidy MD Hepatocarcinoma (CMS/HCC); Benign hypertension 03/21/2024 Orders Only [facility] [place] [address] [place] [phone] Tommy Cassidy MD 03/20/2024 Orders Only [facility] [place] [address] [place] [phone] Tommy Cassidy MD Need for hepatitis B screening test (Primary Dx) 03/13/2024 9:00 AM COOKING TEACHER Office Visit [facility] [place] [address] [place] [phone] Tommy Cassidy MD Hepatocarcinoma (CMS/HCC) (Primary Dx) 03/13/2024 Orders Only [facility] [place] [address] [place] [address] Tommy Cassidy MD 03/10/2024 Orders Only [facility] [place] [address] [place] [address] Tommy Cassidy MD Hepatocarcinoma (CMS/HCC); Benign hypertension 02/25/2024 Orders Only [facility] [place] [address] [place] [address] Tommy Cassidy MD Hepatocarcinoma (CMS/HCC); Benign hypertension 02/11/2024 Orders Only [facility] [place] [address] [place] [address] Tommy Cassidy MD Hepatocarcinoma (CMS/HCC); [...] Sign Reading Time Taken Comments Blood Pressure 111/57 04/10/2024 9:23 AM COOKING TEACHER Pulse 70 04/10/2024 9:23 AM COOKING TEACHER Temperature 35.7 C (96.2 F) 04/10/2024 9:23 AM COOKING TEACHER Respiratory Rate 15 04/10/2024 9:23 AM COOKING TEACHER Oxygen Saturation 96% 04/10/2024 9:23 AM COOKING TEACHER Inhaled Oxygen Concentration - - Weight 79.8 kg (176 lb) 04/10/2024 9:23 AM COOKING TEACHER Height 180.3 cm (5' 11 ) 04/09/2023 8:51 AM COOKING TEACHER Body Mass Index 24.55 04/09/2023 8:51 AM COOKING TEACHER Plan of Treatment Upcoming Encounters Date Type Department Care Team (Late st Contact Info) Description 05/30/2024 9:00 AM CDT Office Visit [facility] [place] [address] [place] [address] Tommy Cassidy MD [address] [facility] [address] [place] [address] Health Maintenance Due Date Last Done Comments DIABETES ANNUAL FOOT EXAM 05/05/1973 DIABETES ANNUAL RETINAL EXAM 05/05/1973 DIABETES MICROALBUMIN ANNUAL SCREEN 05/05/1973 LDL CHOLESTEROL ANNUAL 05/05/1973 PNEUMOCOCCAL VACCINE 50+ YEARS (1 of 2 - PCV) 05/05/18 [...] Tdap) 02/06/2027 Medical Devices Implanted Type Area Whitesmith Device Identifier Shelf Expiration Date Model / Serial / Lot Stents Bilateral Legs Procedures Procedure Name Priority Date/Time Associated Diagnosis Comments QUANTIFERON TB CONFIRMATION Routine 03/24/2024 11:51 AM COOKING TEACHER COMPREHENSIVE METABOLIC PANEL Routine 03/21/2024 1:12 PM COOKING TEACHER BASIC METABOLIC PANEL Routine 03/21/2024 1:08 PM COOKING TEACHER CBC WITH DIFFERENTIAL Routine 03/21/2024 1:07 PM COOKING TEACHER CBC WITH DIFFERENTIAL Routine 03/13/2024 4:12 PM COOKING TEACHER BASIC METABOLIC PANEL Routine 03/13/2024 4:11 PM COOKING TEACHER from Last 3 Months Results * QUANTIFERON TB CONFIRMATION (03/24/2024 11:51 AM COOKING TEACHER) Blood us Tommy Cassidy MD CHEMISTRY ORDERABLES Final Resu lt * COMPREHENSIVE METABOLIC PANEL (03/21/2024 1:12 PM COOKING TEACHER) Blood us Tommy Cassidy MD CHEMISTRY ORDERABLES Final Resu lt * BASIC METABOLIC PANEL (03/21/2024 1:08 PM COOKING TEACHER) Only the most recent of2 resultswithin the time period is included. Blood us Tommy Cassidy MD CHEMISTRY ORDERABLES Final Resu lt * CBC WITH DIFFERENTIAL (03/21/2024 1:07 PM COOKING TEACHER) Only the most recent of2 resultswithin the time period is included. Blood Tommy Cassidy MD HEMATOLOGY ORDERABLES Final Res ult from Last 3 Months Insurance [employer] [facility] [employer] [facility] Advance Directives For more information, please contact: [phone] * Full Code (Latest Code Status on File) Date Activated Date Inactivated Comments 04/04/2023 11:13 AM 04/04/2023 6:32 PM Care Teams Shaft Mechanic Relationship Specialty Start Date End Date Shay Hooper MD PCP - General Internal Medicine 01/01/23
--- OUTSIDE RECORDS SUMMARY | 2024-05-08 14:21 | XMS_ITS | Encounter Summary ---
Author Organization [facility] Address [address] [place] [address] Care Team Providers Care Green Chain Puller Name Role Phone Shay Hooper MD Primary Care Provider Encounter Details Date Type Department Care Team (Latest Contact Info) Description 05/08/2024 Travel Social History Tobacco Use Types Packs/Day Years Used Date Smoking Tobacco: Every Day Cigarettes 1 12.2 Started: 2012 Smokeless Tobacco: Never Alcohol Use Standard Drinks/Week [...] Visit [facility] [address] [facility] [place] [address] Phyllis Preeira, MANAGER RFID-PRODUCT DEVELOPMENT ECOLOGIST [address] [facility] [place] [address] documented as of this encounter Goals Goal [...] on filedocumented in this encounter Care Teams Green Chain Puller Relationship Specialty Start Date End Date Shay Hooper MD [address] [phone] PCP - General Internal Medicine 11/14/17 documented as of this encounter
--- OUTSIDE RECORDS SUMMARY | 2024-05-08 14:21 | XMS_ITS | CONTINUITY OF CARE DOCUMENT ---
Author Name shea valdivia Address Unknown Organization [facility] Address [address] [place] [address] Phone [phone] Care Team Providers Care Industrial Paramedic Name Role Phone Rene Harris MD Unavailable [phone] López Powell DPM Unavailable MARSHAL CONDON MD Unavailable PROBLEMS Condition Status Date Provider Notes HTN [...] Hx of Stroke and TIA active Rene Harrsi MD Diabetes mellitus active Rene Harris MD Tobacco abuse active Rene Harris MD Hyperlipidemia active Rene Harris MD Carotid artery disease active Rene Harris MD PVD with ulcer active Rene Harris MD Cirrhosis, alcoholic, liver active Rene durant MD Systolic murmur active Rene Harris MD Abnormal EKG active Rene Harris MD Syncope active Daniela Ventimiglia OCCUPATIONAL HEALTH NURSE MANAGER Liver cancer, primary active Rene Burrows Cardiology examination active Rene Harris MD Aortic stenosis active Rene Harris MD LBBB active Rene Harris MD Aortic insufficiency active Rene Harris MD Facial numbness active Rene Harris MD CAD s/p stents active Rene Harris MD ENCOUNTERS Date Type Provider Location Encounter Diag nosis - In-person encounter Office Visit Rene Harris MD [facility] Cardiology examinationFacial numbnessAortic insufficiencyAortic stenosisLBBB - In-person encounter Office Visit Rene Harris MD [facility] CAD s/p stents - In-person encounter Office Visit Rene Harris MD [facility] - In-person encounter Office Visit Rene Harris MD [facility] Liver cancer, primary - In-person encounter Office Visit Rene Harris MD [facility] Syncope - In-person encounter Office Visit Rene Harris MD [facility] - In-person encounter Office Visit Rene Harris MD [facility] Cirrhosis, alcoholic, liverSystolic murmurAbnormal EKG - In-person encounter Office Visit Rene Harris MD [facility] PVD with ulcer - In-person encounter Office Visit Rene Harris MD [facility] Carotid artery disea se - In-person encounter Office Visit Rene Harris MD [facility] Hyperlipidemia - In-person encounter Office Visit Rene Harris MD [facility] Tobacco abuse - In-person encounter Office Visit Rene Harris MD [facility] Cardiology examinationFamily History of CVA or Stroke:Family History of Hypertension:Family History of Sudden Cardiac :Diabetic foot ulcer, great toe, leftHx of Stroke and TIADiabetes mellitus VITAL SIGNS Date Observation Value Provider Body Mass Index (Ratio) 24.96 kg/m2 Kale Harris MD blood pressure, diastolic 66 mm[Hg] [facility], systolic 135 mm[Hg] [facility] oxygen saturation, oximetry 97 % [facility] pulse rate 71 /min [facility] respiratory rate E&M 12 /min [facility] weight E&M 179 [lb_av] [facility] height E&M 71 [in_i] [facility] blood pressure, cuff size regular ivory [place] Body Mass Index (Ratio) 26.22 kg/m2 Kale Harris MD pulse rate 67 /min [facility], diastolic 52 mm[Hg] Gregory yla [facility] blood pressure, systolic 101 mm[Hg] Alem trini [facility], oximetry 95 % Wanda Bethel weight E&M 188 [lb_av] Wanda [facility] height E&M 71 [in_i] Wanda [facility] Body Mass Index (Ratio) 26.36 kg/m2 Kale Harris MD weight E&M 189 [lb_av] Adrilis Brown pulse rate 74 /min Adri Brown blood pressure, cuff size regular Myles Brown blood pressure, diastolic 50 mm[Hg] Myles Brown blood pressure, systolic 108 mm[Hg] Scot Brown oxygen saturation, oximetry 99 % Adri Brown respiratory rate E&M 12 /min Adri Brown height E&M 71 [in_i] Adri Brown Body Mass Index (Ratio) 28.87 kg/m2 Kale Harris MD blood pressure, cuff size regular Ja et blood pressure, diastolic 66 mm[Hg] Ja rret blood pressure, systolic 144 mm[Hg] Jd [facility] pulse rate 72 /min Mikey oxygen saturation, oximetry 98 % Mikey respiratory rate E&M 12 /min Mikey weight E&M 207 [lb_av] Mikey y height E&M 71 [in_i] Mikey y Body Mass Index (Ratio) 28.31 kg/m2 Kale Harris MD blood pressure, diastolic 73 mm[Hg] St palak Pulliam blood pressure, systolic 136 mm[Hg] Ivette Pulliam oxygen saturation, oximetry 96 % Naomy Pulliam pulse rate 71 /min Naomy Pulliam respiratory rate E&M 18 /min Naomy smiley weight E&M 203 [lb_av] Naomy Pulliam height E&M 71 [in_i] Naomy Pulliam Body Mass Index (Ratio) 28.87 kg/m2 Kale Harris MD blood pressure, cuff size large Ke rri Gabriel blood pressure, diastolic 70 mm[Hg] Ke rri Gabriel blood pressure, systolic 140 mm[Hg] Ker ri Gabriel oxygen saturation, oximetry 98 % Radha Mcduffievenicebrieniván respiratory rate E&M 16 /min Radha Cooley goodrudyiván pulse rate 73 /min Radha Green maykeler weight E&M 207 [lb_av] Radha Green lder height E&M 71 [in_i] Radha Green [facility] Body Mass Index (Ratio) 29.01 kg/m2 Kale Harris MD blood pressure, diastolic 108 mm[Hg] Salma nkLogirasema blood pressure, systolic 172 mm[Hg] Emily Langfordogirasema blood pressure, diastolic 70 mm[Hg] Trini Gregoryly Yfn blood pressure, systolic 137 mm[Hg] Ever thorntondana Coulter oxygen saturation, oximetry 98 % Angeli Coulter pulse rate 75 /min Rhondajordanaem bonilla respiratory rate E&M 20 /min Cynthia vargas Yfn weight E&M 208 [lb_av] Angeli bonilla blood pressure, cuff size regular Trini Coulter height E&M 71 [in_i] Angeli bonilla Body Mass Index (Ratio) 27.05 kg/m2 Kale Harris MD blood pressure, cuff size regular Cy jaden Guerrier blood pressure, diastolic 72 mm[Hg] Wesley Guerrier blood pressure, systolic 128 mm[Hg] Ina Guerrier oxygen saturation, oximetry 98 % Antonella Guerrier respiratory rate E&M 16 /min Antonella Guerrier pulse rate 71 /min Antonella Costabel l weight E&M 194 [lb_av] Antonella Costabel l height E&M 71 [in_i] Antonella Campbel l Body Mass Index (Ratio) 26.92 kg/m2 Kale Harris MD blood pressure, diastolic 80 mm[Hg] Trye del rosario [place] blood pressure, systolic 152 mm[Hg] Xander sales [place] oxygen saturation, oximetry 98 % Cynthia Olga Lidia respiratory rate E&M 17 /min Cynthia Olga Lidia pulse rate 72 /min Cynthia Olga Lidia blood pressure, cuff size regular Trey del rosario Olga Lidia weight E&M 193 [lb_av] Cynthia Olga Lidia height E&M 71 [in_i] Cyntiha [place] Body Mass Index (Ratio) 26.64 kg/m2 Kale [...] [in_i] Michaela Shruthi Body Mass Index (Ratio) 27.19 kg/m2 Kale Harris MD blood pressure, cuff size large Marcos Rios blood pressure, diastolic 80 mm[Hg] Marcos Rios blood pressure, systolic 124 mm[Hg] Hannah Rios oxygen saturation, oximetry 98 % Radha Rios respiratory rate E&M 20 /min Radha wagner pulse rate 88 /min Radha Green lder weight E&M 195 [lb_av] Radha Green lder height E&M 71 [in_i] Radha Green lder ALLERGIES Allergy Name Onset Date Reaction [...] relief after 3rd dose, go to ER Tequila Nava amlodipine 2.5 mg tablet completed Take 1 [...] capsule active Take once a day Michaela Shruthi Ambien 10 mg tablet active Take 1 every night Radha Rios BYDUREON 2 MG SUBCUTANEOUS PEN-INJECTOR completed once a week - Cynthia Duggan Tresimargarito FlexTouch U-100 100 unit/mL (3 mL) insulin [...] Rene Harris MD cigarette use yes Rene Harris [...] has been counseled to quit. Daniela Sanches [facility] social history reviewed E&M revi ewed - no changes required Daniela Sanches [facility] smoking/tobacco cess ation, patient education and counseling [...] ation, patient education and counseling yes Radha Mcduffievenicebriensudhakarjordana number of years as a smoker 50 a Radha Rios smoking history, tot al pack/day 1/2 ppd Radha Rios cigarette use yes Radha minor smoking status Current every da y smoker Radha Mcduffievenicechris social history reviewed E&M revi ewed - no changes required Rene Harris MD social history E&M S moking History: P atient currently smokes every day. P atient has been counseled to quit. Rene Harris MD social history reviewed E&M revi ewed - no changes required Rene Harris MD smoking/tobacco cess ation, patient education and counseling yes Antonella Fareed number of years as a smoker 50 a Antonella Guerrier smoking history, tot al pack/day 1/2 ppd Antonella Fareed cigarette use yes Antonella Costaelise looney smoking status Current every da y smoker Antonella Guerrier social history E&M S moking History: P atient currently smokes every day. P atient has been counseled to quit. Rene Harris MD social history reviewed E&M revi ewed - no changes required Rene Harris MD smoking/tobacco cess ation, patient education and counseling yes Cynthia Duggan number of years as a smoker 50 a Cynthia Olga Lidia smoking history, tot al pack/day 1/2 ppd Cynthia Olga Lidia cigarette use yes Cynthia Duggan smoking status Current every da y smoker Cynthia Duggan smoking status Current every da y smoker [...] Current every da y smoker Radha Rios FAMILY HISTORY Family Member Condition Mother Negative FH of Coron efra Artery Disease Father Family History of Fallon dden Cardiac : Father Family History of Hy pertension: Father Family History of CV A or Stroke: INSURANCE PROVIDERS Payer name Policy type / Coverage type Tim bhat ID [employer] H[employer] HMO [id number] ADVANCE DIRECTIVES Name Date DISCUSSED - NO DECISION MADE TREATMENT PLAN Date Name Performer [id number],C, H is last echo showed EF is 65%. His Carotid study showed <50% stenosis of the right ICA, 50 - 69% stenosis of the left ICA, Possible right subclavian stenosis. Follows with Dr. Wu. Danielarain Adamspaz [facility] [id number],C,P t states that he had a recent syncopal episode with slurred speech this past Mother's Day. Denies chest pain and palpitations. Does c/o SOB. Did not return back to the hospital as was there month prior with similar episode. Will arrange a 2 week tele monitor and Stress Reg. [facility] [id number],S, H is updated medication list for this problem includes: Atorvastatin 40 Mg Tablet (Atorvastatin) ..... Take 1 tablet once a day Lipitor 40 Mg Tablet (Atorvastatin) ..... 1 tablet once a day [facility]a [facility] [id number],S,W ill arrange RPM. BP today: 136/73 P rior BP: 140/70 (08/08/2021) His updated medication list for this problem includes: Amlodipine 5 Mg Tablet (Amlodipine) ..... Take 1 tablet by mouth once daily Lasix 20 Mg Tablet (Furosemide) ..... Take 1 once a day Aspirin 81 Mg Tablet,delayed Release (dr/ec) (Aspirin) ..... 1 tablet by mouth once a day [facility]a [facility] [id number],S,S till smokes 1PPD. The Patient was reencouraged to stop smoking. Danielarain Sanches [facility] [id number],C,H e has been having fluctuating BPs and he does not feel okay taking Losartan. Will stop Losartan 20mg and start Amlodipine to see if sx resolve. Will hopefully see him in the office soon. Rene Harris MD [id number],C,T he Patient was reencouraged to stop smoking. Rene Harris MD [id number],C,T he Patient was reencouraged to stop smoking. Rene Harris MD [id number],C,per Dr.B Kale Harris MD [id number],B,Ulcers have h ealed. Rene Harris MD [id number],C,E cho showed mild aortic stenosis. Otherwise no significant sx. Continue medical therapy. Rene Harris MD [id number],N,N ew PRWP on EKG today compared to previous. Will check echocardiogram. Rene Harris MD [id number],C,W ill obtain lipids from [facility]'s office. H is updated medication list for this problem includes: Atorvastatin 40 Mg Tablet (Atorvastatin) ..... Take 1 tablet once a day Lipitor 40 Mg Tablet (Atorvastatin) ..... 1 tablet once a day Rene Harris MD [id number],S, T he Patient was reencouraged to stop smoking. Rene Harris MD [id number],S,H gladys systolic murmur appreciated on exam. Will recheck echo to monitor progression of aortic stenosis. Rene Harris MD [id number],C, H as had interventions done on the L LE previously. He also had an amputation of his L big toe. His R big toe wound has been healing. 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 He has been doing well. Will check an JOSH. Rene Harris MD Cardiology Rene Harris MD Cardiology Rene Harris MD Cardiology:Recent st ents to LAD and RCA, conitnue dapt T his visit has been a part of the consistent, comprehensive, and ongoing management of the chronic medical condition(s) listed above for the patient. Rene Harris MD Cardiology:Neurologi c exam unremarkable R ecommend following with pcp Rene Harris MD Cardiology: W ill reduce [...] stenosis. Follows with Dr. Wu. Daniela Sanches [facility] Cardiology:Pt states that he had a recent syncopal episode with slurred speech this past Mother's Day. Denies chest pain and palpitations. Does c/o SOB. Did not return back to the hospital as was there month prior with similar episode. Will arrange a 2 week tele monitor and Stress Reg. Daniela Sanches [facility] Cardiology: H is updated medication list for this problem includes: Atorvastatin 40 Mg Tablet (Atorvastatin) ..... Take 1 tablet once a day Lipitor 40 Mg Tablet (Atorvastatin) ..... 1 tablet once a day Daniela Sanches [facility] Cardiology:Will arrlis PICKARD. BP today: 136/73 P rior BP: 140/70 (08/08/2021) His updated medication list for this problem includes: Amlodipine 5 Mg Tablet (Amlodipine) ..... Take 1 tablet by mouth once daily Lasix 20 Mg Tablet (Furosemide) ..... Take 1 once a day Aspirin 81 Mg Tablet,delayed Release (dr/ec) (Aspirin) ..... 1 tablet by mouth once a day Daniela Sanches [facility] Cardiology:Still smo kes 1PPD. The Patient was reencouraged to stop smoking. Daniela Sanches [facility] Telehealth:He has be en having fluctuating BPs [...] Harris MD Cardiology:Will obta in lipids from [facility]'s office. H is updated medication [...] Lipitor 40mg . Rene Harris MD Cardiology hospital follow up:on Atorvastatin 40mg Rene Harris MD Cardiology hospital follow up:pe r PCP Rene Harris MD Cardiology hospital follow up:s/p revascularization to the L PT. Wound has begun healing much better than in past 6 months. Will check sensilase to ensure patency and progress. Will do JOSH in 1 month to make sure stent remains patent. Rene Harris MD Cardiology hospital follow up:The Patient was reencouraged to stop smoking. Rene Harris MD Cardiology hospital follow up:The Patient was reencouraged to stop smoking. Rene Harris MD Cardiology hospital follow up Us nadya Harris MD Cardiology hospital follow up:Need to try and open up his L PT and DP. Will schedule AIF at [facility]. Rene Harris MD Cardiology New Patie nt :Will order arterial SENSILASE Rene Harris MD Cardiology New Patie nt :current diabetic ulcer on great toe of L foot. HbA1c per pt is 7.0% Rene Harris MD Date Name PROTHROMBIN TIME WIT [...] PANE L W/EGFR AIF Intervention - S [facility] Arterial - SENSILASE HISTORY OF PROCEDURES Procedure Date Procedure Name Provider Procedure Notes S tatus Complex e/m visit add on Rene Harris MD completed EKG Rene Harris MD completed Complex e/m visit add on Rene Harris MD completed EKG Rene Harris MD completed EKG Rene Harris MD completed
--- OUTSIDE RECORDS SUMMARY | 2024-05-08 14:21 | XMS_ITS | Encounter Summary ---
Author Organization [facility] Health Address [address] [place] [address] Care Team Providers Care Roll Capper Name Role Phone Shay Hooper MD Primary Care Provider Encounter Details Date Type Department Care Team (Late Contact Info) Description 08/01/2018 [facility] Outpatient Visit [facility] [address] [place] [address] [place] [address] [address] Social History Tobacco Use Types Packs/Day Years [...] Department Care Team (Late Contact Info) Description 05/08/2025 11:00 AM CDT Office Visit [facility] [address] [facility] [place] [address] Phyllis Pereira, BEAUTY ARTIST-WORK ADJUSTMENT INSTRUCTOR [address] [place] [address] [facility] [place] [address] documented as of this encounter Visit Diagnoses Not on filedocumented in this encounter Care Teams Roll Capper Relationship Specialty Start Date End Date Shay Hooper MD [address] [facility] [address] [place] [phone] PCP - General Internal Medicine 11/14/17 documented as of this encounter
--- OUTSIDE RECORDS SUMMARY | 2024-05-08 14:21 | XMS_ITS | Encounter Summary ---
Author Organization [employer] [facility] Address [address] [place] [phone] Phone Care Team Providers Care Cash Application Clerk Name Role Phone Shay Hooper MD Primary Care Provider [phone] Encounter Details Date Type Department Care Team (Late st Contact Info) Description 05/08/2024 Documentation Only [employer] [facility] [address] [place] [address] 1 [place] [address] Emiliano Washington DO [address] [facility] 1 [place] [address] Social History Tobacco Use Types Packs/Day Years [...] Description 06/10/2024 4:15 PM CDT Office Visit [employer] [facility] [address] [facility] [address] [place] [phone] Emiliano Washington DO [address] [facility] 1 [place] [address] documented as of this encounter Visit Diagnoses Not on filedocumented in this encounter Care Teams Cash Application Clerk Relationship Specialty Start Date End Date Shay Hooper MD [address] [facility], [address] [place] [phone] PCP - General Internal Medicine 03/01/21 documented as of this encounter
--- OUTSIDE RECORDS SUMMARY | 2024-05-08 14:21 | XMS_ITS | Encounter Summary ---
Author Organization [employer] [facility] Address [address] [place] [phone] Phone Care Team Providers Care Track Layer Name Role Phone Shay Hooper MD Primary Care Provider [phone] Encounter Details Date Type Department Care Team (Late st Contact Info) Description 03/26/2024 Documentation Only [place] [employer] [facility] [address] [place] [address] 1 [place] [address] Emiliano Washington DO [address] [facility] 1 [place] [address] Social History Tobacco Use Types [...] Description 06/10/2024 4:15 PM CDT Office Visit [place] [employer] [facility] [address] [facility] [address] [place] [phone] Emiliano Washington DO [address] [facility] 1 [place] [address] documented as of this encounter Visit Diagnoses Not on filedocumented in this encounter Care Teams Track Layer Relationship Specialty Start Date End Date Shay Hooper MD [address] [facility], [address] [place] [phone] PCP - General Internal Medicine 03/01/21 documented as of this encounter
[2024-05-08 16:05] LABS: INR 3.3; Prothrombin Time 34.5 Seconds (11.1-14.7)
[2024-05-08 16:06] LABS: Partial Thromboplastin Time 64.2 Seconds (22.3-36.8)
== END 2024-05-08 12:49 | disposition home or self-care (01) ==
PROVIDERS: Anesthesiology; PCP Internal Medicine; Visit Provider Urology
DX: N18.9 Chronic kidney disease, unspecified (principal)
CPT/HCPCS: 36415; 85610; 85730

== ENCOUNTER 2024-05-15 02:04 | Day surgery (SDC) | payer MEDICARE, SELFPAY ==
[2024-05-01 15:38] VITALS: BMI 24.0
--- NOTE | 2024-05-01 15:52 | PC.NURSE ---
Report to the Outpatient Waiting Room, entrance under the green pavilion located off [facility], at time _0930am on date __05/15/24 . Planned Procedure Time: _1130am .? Time changes happen often and if your time is changed the preop area will call you the afternoon before. - You and your visitor will be asked to self-screen and do not enter if you have any COVID symptoms. Please call surgeon if you need to reschedule. - A mask is optional within the hospital at this time. Patients may have clear liquids (water, carbonated beverages, clear teas, apple juice) until 3 hours prior to surgery with a maximum of 20 ounces. - No food from midnight until time of surgery and no smoking, or chewing tobacco (or any form of nicotine). No chewing gum, candy or mints. (0830am) Take only the following medications with a SIP of water on the morning of surgery: _Naldol and Tylenol and Inhaler if needed DO NOT STOP ANY OF YOUR OTHER PRESCRIPTION MEDICATIONS PRIOR TO SURGERY EXCEPT THE FOLLOWING Hold all vitamins and supplements for 3 days per anesthesiologist.Date of last dose is 05/11/24 Medications to discontinue per physician ___Xarelto and Plavix per Dr Daniels/Cardiology - they will notify pt Date to take last dose____Same as above Please no make-up, nail kinyarwanda, hairspray, perfume, deodorant, or body powder the day of surgery.? No jewelry (including any body piercings) or valuables the day of surgery, leave them at home.? Please take a shower or bath the night before, or the morning of, surgery with an antibacterial soap.? Wear comfortable, loose fitting clothing.? - Jewelry must be removed prior to entering the operating room.? Rings and piercings that are not removed may be cut off. - The hospital will not accept responsibility for valuables.? - Please leave all valuables, including medications, at home the day of surgery. If you are going home after surgery, a licensed driver guide must drive you home.? - NO public transportation without another adult if you receive anesthesia. - We recommend that an adult stay with you for 24 hours following discharge. - We also recommend that you do not drive, make important decision, drink alcoholic beverages, or take any drugs that were not prescribed by your health care provider for at least 24 hours after your discharge time. Follow any additional instructions given to you from your surgeon. Telephone instructions given to _ Patient and asked if any additional questions and then verbalized understanding. Patient advised to call surgeon office or pre surgery nurse liaison [phone] if any additional questions.
[2024-05-15] VITALS (13 sets, daily range): BP systolic 126–155; BP diastolic 48–66; PULSE 63–75; RESP 12–18; TEMP 36.1–36.4; O2SAT 98–100
--- OUTSIDE RECORDS SUMMARY | 2024-05-15 02:06 | XMS_ITS | Encounter Summary ---
Author Organization [facility] Health Address [address] [facility] [place] [address] Care Team Providers Care Remote Sensing Analyst Name Role Phone Shay Hooper MD Primary Care Provider Encounter Details Date Type Department Care Team (Late st Contact Info) Description 08/01/2018 [facility] Outpatient Visit [facility] [address] [place] [address] Edwin Horner MD [address] [place] [phone] Social History Tobacco Use Types Packs/Day [...] [address] [facility], [place] [address] Phyllis Pereira, INDUSTRIAL MAINTENANCE MILLWRIGHT-APPLICATIONS DEVELOPER [address] [place] [address] [facility] [place] [address] documented as of this encounter Visit Diagnoses Not on filedocumented in this encounter Care Teams Remote Sensing Analyst Relationship Specialty Start Date End Date Shay Hooper MD [address] [phone] PCP - General Internal Medicine 11/14/17 documented as of this encounter
--- OUTSIDE RECORDS SUMMARY | 2024-05-15 02:06 | XMS_ITS | Clinical Summary ---
Author Organization [facility] Address [address] [place] [address] Care Team Providers Care Dandy Operator Name Role Phone Krish Hooper MD Primary Care Provide r Jorge Jorge DO Unavailable [phone] Rene Harris MD Unavailable Allergies Active Allergy [...] Department Care Team Description 04/01/2024 Orders Only [facility] Cardiology [address] [place] [address] Nimisha Ryan MD from Last 3 Months Immunizations Immunization Administration [...] on file Legal Sex Male 7:05 PM SAP PI ARCHITECT Gender Identity Not on file Sexual Orientation Not on file Obstetrics History Last Filed Vital Signs Vital Sign Reading Time Taken Comments Blood Pressure 130/54 02/13/2024 8:04 AM SAP PI ARCHITECT Pulse 67 02/13/2024 8:04 AM SAP PI ARCHITECT Temperature 36.9 C (98.5 F) 02/13/2024 8:04 AM SAP PI ARCHITECT Respiratory Rate 18 02/13/2024 8:04 AM SAP PI ARCHITECT Oxygen Saturation 99% 02/13/2024 8:04 AM SAP PI ARCHITECT Inhaled Oxygen Concentration - - Weight 83.5 kg (184 lb) 02/12/2024 3:20 PM SAP PI ARCHITECT Height 180.3 cm (5' 11 ) 02/12/2024 3:20 PM SAP PI ARCHITECT Body Mass Index 25.66 02/12/2024 3:20 PM SAP PI ARCHITECT Plan of Treatment Health Maintenance Due Date [...] Tdap) 02/06/202701/2017 Medical Devices Implanted Type Area Clerical Investigator Device Identifier Shelf Expiration Date Model / Serial / Lot ozuke Synergy Xd Monorail 4mm 32mm 144cm Delivery System 1 Access Port [id number] - [id number] Implanted:Qty: 1 on 02/12/2024 by Rene Harris MD at [facility] [employer]uke 11/28/2024 [id number] / / [id number] Procedures Procedure Name Priority Date/Time Associated Diagnosis Comments CARDIOLOGY DOCUMENT SCAN Routine 03/27/2024 10:46 AM SAP PI ARCHITECT CARDIOLOGY DOCUMENT SCAN Routine 03/26/2024 10:43 AM SAP PI ARCHITECT EGFR Routine 02/13/2024 2:34 AM SAP PI ARCHITECT HEMOGLOBIN A1C Routine 09/18/2017 6:16 AM CDT LIPID PANEL STAT 09/18/2017 6:16 AM CDT from Last 3 Months or Most Recently Relevant to Health Maintenance Results * Cardiology Document Scan (03/27/2024 10:46 AM SAP PI ARCHITECT) Anatomical Region Laterality Modality Other Shawn Vyas MD CV CARDIAC SERVICES PROCEDURES F inal Result * Cardiology Document Scan (03/26/2024 10:43 AM SAP PI ARCHITECT) Anatomical Region Laterality Modality Other Nimisha Ryan MD CV CARDIAC SERVICES PRO CEDURES Final Result * (ABNORMAL) eGFR (02/13/2024 2:34 AM SAP PI ARCHITECT) eGFR 57(L) >=60 mL/min/1. 73 m2 Comment: [...] last reviewed 2020. Blood 02/13/2024 2:34 AM SAP PI ARCHITECT 02/13/2024 3:28 AM SAP PI ARCHITECT Rene Harris MD LAB BLOOD ORDERABLES Final Resul t Performing Organization Address City/State/[facility] Co de Phone Number [facility] [address] Department [place] [address] * (ABNORMAL) Hemoglobin A1c (09/18/2017 6:16 AM CDT) Hgb A1C 7.2(H) 4.0 - 5.6 % [facility] Estimated Average Glucose 160 mg/dL [facility] Comment: The ADA recommends reporting an estimated Average Glucose (eAG) with all Hemoglobin A1c results using the equation derived from a study of 507 normal and diabetic adults. Minority populations were underrepresented and children were not included. (Diabetes Care 31:5399-5640, 2008). The eAG is not equivalent to a fasting glucose. Blood specimen (specimen) 09/18/2017 6:16 AM CDT 09/18/2017 7:44 AM CDT Narrative [facility] - 09/18/2017 8:10 AM CDT Aiden Parker MD LAB BLOOD ORDERABLES Final Result Performing Organization Address [facility] de Phone Number [facility] Department [place] [address] * (ABNORMAL) Lipid panel (09/18/2017 6:16 AM CDT) Pathologist [facility] Cholesterol 140 30 - 200 mg/dL [facility] Comment: Interpretive Data Desirable: <200 mg/dL Borderline high: 200-239 mg/dL High: > or = 240 mg/dL Literature Reference: National Cholesterol Education Program (NCEP) Expert Panel on Detection, Evaluation, and Treatment of High Blood Cholesterol in Adults (Adult Treatment Panel III). Circulation 2004; 110:227. Current interpretive data was last revised on 2014. Triglycerides 95 0 - 150 mg/dL [facility] Comment: Interpretive Data Desirable: < 150 mg/dL Borderline High: 150 - 199 mg/dL High: 200 - 499 mg/dL Very High: > or = 499 mg/dL Literature Reference: See Cholesterol Current interpretive data was last revised on 2014. HDL 32(L) >=40 mg/dL [facility] Comment: Interpretive Data Less than 40 mg/dL - low; A major risk factor for heart disease. Greater than or equal to 60 mg/dL - High; considered protective of heart disease. Literature Reference: See Cholesterol Current interpretive data was last revised on 2014. LDL, calculated 89 10 - 129 mg/dL [facility] Comment: Interpretive Data Optimal: < 100 mg/dL Near Optimal: 100 - 129 mg/dL Borderline High: 130 - 159 mg/dL High: 160 - 189 mg/dL Very high: > or = 190 mg/dL Literature Reference: See Cholesterol Current interpretive data was last revised on 2014. Non-HDL Cholesterol 108 mg/dL [facility] Comment: Interpretive Data When triglycerides are >200 mg/dL, non-HDL C is a secondary target of therapy, with a goal 30 mg/dL higher than the identified LDL-C goal. Reference: See Cholesterol Reference. Current interpretive data was last revised 2014. Blood specimen (specimen) 09/18/2017 6:16 AM CDT 09/18/2017 7:42 AM CDT Narrative [facility] - 09/18/2017 6:[address] AIDEN PARKER 09/18/2017 17:13:25 CDT Aiden Parker MD LAB BLOOD ORDERABLES Final Result [facility] Department [place] [address] from Last 3 Months or Most Recently Relevant to Health Maintenance Insurance [facility] MEDICARE HMO Advance Directives For more information, please contact: [phone] * Full Code (Latest Code Status on File) Date Activated Date Inactivated Comments 02/12/2024 3:20 PM 02/13/2024 2:36 PM * Full Code Date Activated Date Inactivated Comments 09/18/2017 5:47 AM 09/19/2017 5:05 PM Care Teams Dandy Operator Relationship Specialty Start Date End Date Krish Hooper MD [address] [place] [address] PCP - General Internal Medicine 12/07/17 Jorge Jorge DO [address] [place] [id number] Medical Oncologist/Clinical Registered Nurse Hematology and Oncology 12/11/18 Rene Harris MD [address] [place] [address] Consulting Physician Cardiology 02/13/24
--- OUTSIDE RECORDS SUMMARY | 2024-05-15 02:06 | XMS_ITS | Encounter Summary ---
Author Organization [facility] Address [address] [place] [address] Care Team Providers Care Cork Pressing Machine Operator Name Role Phone Shay Hooper MD Primary Care Provider Encounter Details Date Type Department Care Team (Late Contact Info) Description 08/01/2018 [facility] Outpatient Visit [facility] [address] [place] [address] [place] [address] [address] Social History Tobacco Use Types Packs/Day Years [...] Visit [facility] [address] [facility], [place] [address] Phyllis Pereira, CASKET ASSEMBLER METAL-BUILDING STONECUTTER [address] [place] [address] [address] [place] [address] documented as of this encounter Visit Diagnoses Not on filedocumented in this encounter Care Teams Cork Pressing Machine Operator Relationship Specialty Start Date End Date Shay Hooper MD [address] [facility] [address] [place] [address] PCP - General Internal Medicine 11/14/17 documented as of this encounter
--- OUTSIDE RECORDS SUMMARY | 2024-05-15 02:06 | XMS_ITS | Clinical Summary ---
Author Organization [facility] Address [address] [place] [address] Phone Care Team Providers Care Painter Spring Name Role Phone Provider, Not On File [...] and at bedtime. Active ergocalciferol (VITAMIN D) 61831 UNIT Capsule Take 50,000 Units by mouth. [...] this topic Medical Devices Implanted Type Area Air Value Tester Device Identifier Shelf Expiration Date Model / Serial / Lot Implant Nasal 16mm Steroid Release Zip Tie Propel Mometasone Furoate 370 Mcg Mini 4mm - [id number] Implanted:Qty: 1 on 10/03/2022 by Lalito Acuña MD at [facility] IMPLANT Left: Sinus Intersect [employer] Inc 09/28/2023 [id number] / [id number] / [id number] Implant Nasal 16mm Steroid Release Zip Tie Propel Mometasone Furoate 370 Mcg Mini 4mm - [id number] Implanted:Qty: 1 on 10/03/2022 by Lalito Acuña MD at [facility] IMPLANT Right: Sinus Intersect [employer] Inc 11/09/2023 [id number] / [id number] / [id number] Explanted Type Area Air Value Tester Device Identifier Shelf Expiration Date Model / Serial / Lot Implant Nasal 16mm Steroid Release Zip Tie Propel Mometasone Furoate 370 Mcg Mini 4mm - [id number] Explanted:Qty: 1 on 10/03/2022 at [facility] IMPLANT Right: Sinus Intersect [employer] Inc 09/28/2023 [id number] / [id number] / [id number] Insurance MEDICARE C [employer] Care Teams Painter Spring Relationship Specialty Start Date End Date Provider, Not On File [place] PCP - General 10/03/22
--- OUTSIDE RECORDS SUMMARY | 2024-05-15 02:06 | XMS_ITS | CONTINUITY OF CARE DOCUMENT ---
Author Name shea valdivia Address Unknown Organization [facility] Address [address] [place] [address] Phone [phone] Care Team Providers Care Petrologist Name Role Phone Rene Harris MD Unavailable [phone] López Powell DPM Unavailable MARSHAL CONDON MD Unavailable [phone] PROBLEMS Condition Status Date Provider Notes HTN [...] Rene Harris MD Syncope active Daniela Ventimiglia DISHWASHER BUSSER Liver cancer, primary active Rene Burrows CAD s/p stents active Rene Harris MD Cardiology examination active Rene Harris MD Facial numbness active Rene Harris MD Aortic insufficiency active Rene Harris MD Aortic stenosis active Rene Harris MD LBBB active Rene Harris MD ENCOUNTERS Date Type Provider Location Encounter Diag nosis - In-person encounter Office Visit Rene Harris MD [facility] Cardiology examinationFacial numbnessAortic insufficiencyAortic stenosisLBBB - In-person encounter Office Visit Rene Harris MD [facility] CAD s/p stents - In-person encounter Office Visit Rene Harris MD [facility] - In-person encounter Office Visit Rene Harris MD [facility] Liver cancer, primary - In-person encounter Office Visit Rene Harris MD [facility] Syncope - In-person encounter Office Visit Rene Harris MD [facility] - In-person encounter Office Visit Rene Harris MD [facility] Cirrhosis, alcoholic, liverSystolic murmurAbnormal EKG - In-person encounter Office Visit Rene Harris MD [facility] PVD with ulcer - In-person encounter Office Visit Rene Harris MD [facility] Carotid artery disea se - In-person encounter Office Visit Rene Harris MD [facility] Hyperlipidemia - In-person encounter Office Visit Rene Harris MD [facility] Tobacco abuse - In-person encounter Office Visit Rene Harris MD [facility] Cardiology examinationFamily History of CVA or Stroke:Family History of Hypertension:Family History of Sudden Cardiac :Diabetic foot ulcer, great toe, leftHx of Stroke and TIADiabetes mellitus VITAL SIGNS Date Observation Value Provider Body Mass Index (Ratio) 24.96 kg/m2 Kale Harris MD blood pressure, diastolic 66 mm[Hg] [facility], systolic 135 mm[Hg] Perla [facility] oxygen saturation, oximetry 97 % [facility] pulse rate 71 /min [facility] respiratory rate E&M 12 /min [facility] weight E&M 179 [lb_av] [facility] height E&M 71 [in_i] [facility] blood pressure, cuff size regular ivory Mitchell Body Mass Index (Ratio) 26.22 kg/m2 Kale Harris MD pulse rate 67 /min [facility]anda [facility] blood pressure, diastolic 52 mm[Hg] Gregory yla [facility] blood pressure, systolic 101 mm[Hg] Alem trini [facility] oxygen saturation, oximetry 95 % Wanda [place]hel weight E&M 188 [lb_av] Wanda [facility] height E&M 71 [in_i] Wanda [facility] Body Mass Index (Ratio) 26.36 kg/m2 [...] rret blood pressure, systolic 144 mm[Hg] Jd [facility] pulse rate 72 /min Mikey oxygen [...] lder height E&M 71 [in_i] Radha [facility] Body Mass Index (Ratio) 29.01 kg/m2 Kale [...] Harris MD blood pressure, diastolic 80 mm[Hg] Trey del rosario [place] blood pressure, systolic 152 mm[Hg] Xander sales [place] oxygen saturation, oximetry 98 % Cynthia Olga Lidia respiratory rate E&M 17 /min Cynthia Olga Lidia pulse rate 72 /min Cynthia Olga Lidia blood pressure, cuff size regular Trey del rosario Olga Lidia weight E&M 193 [lb_av] Cynthia Olga Lidia height E&M 71 [in_i] Cynthia [place] Body Mass Index (Ratio) 26.64 kg/m2 Kale [...] mg capsule active Take once a day Micheala Shruthi Ambien 10 mg tablet active Take [...] has been counseled to quit. Daniela Sanches [facility] social history reviewed E&M revi ewed - no changes required Daniela Sanches [facility] smoking/tobacco cess ation, patient education and counseling [...] E&M revi ewed - no changes required Rnee Harris MD smoking/tobacco cess ation, patient education and counseling yes Cynthia Duggan number of years as a smoker 50 a Cynthia Loga Lidia smoking history, tot al pack/day 1/2 [...] Tim bhat ID [employer] H[employer] HMO [id number] ADVANCE DIRECTIVES Name Date DISCUSSED - NO DECISION MADE TREATMENT PLAN Date Name Performer [id number],C, H is last echo showed EF is 65%. His Carotid study showed <50% stenosis of the right ICA, 50 - 69% stenosis of the left ICA, Possible right subclavian stenosis. Follows with Dr. Wu. Danielarain Adamspaz [facility] [id number],C,P t states that he had a recent syncopal episode with slurred speech this past Mother's Day. Denies chest pain and palpitations. Does c/o SOB. Did not return back to the hospital as was there month prior with similar episode. Will arrange a 2 week tele monitor and Stress Reg. [facility] [id number],S, H is updated medication list for this problem includes: Atorvastatin 40 Mg Tablet (Atorvastatin) ..... Take 1 tablet once a day Lipitor 40 Mg Tablet (Atorvastatin) ..... 1 tablet once a day [facility] [id number],S,W ill arrange RPM. BP today: 136/73 P rior BP: 140/70 (08/08/2021) His updated medication list for this problem includes: Amlodipine 5 Mg Tablet (Amlodipine) ..... Take 1 tablet by mouth once daily Lasix 20 Mg Tablet (Furosemide) ..... Take 1 once a day Aspirin 81 Mg Tablet,delayed Release (dr/ec) (Aspirin) ..... 1 tablet by mouth once a day [facility]a [facility] [id number],S,S till smokes 1PPD. The Patient was reencouraged to stop smoking. Danielarain Sanches [facility] [id number],C,H e has been having fluctuating BPs and he does not feel okay taking Losartan. Will stop Losartan 20mg and start Amlodipine to see if sx resolve. Will hopefully see him in the office soon. Rene Harris MD [id number],C,T he Patient was reencouraged to stop smoking. Rene Harris MD [id number],C,T he Patient was reencouraged to stop smoking. Rene Harris MD [id number],C,per Dr.B Kale Harris MD [id number],B,Ulcers have h ealed. Rene Harris MD [id number],C,E cho showed mild aortic stenosis. Otherwise no significant sx. Continue medical therapy. Rene Harris MD [id number],N,N ew PRWP on EKG today compared to previous. Will check echocardiogram. Rene Harris MD [id number],C,W ill obtain lipids from [facility]'s office. H is updated medication list for this problem includes: Atorvastatin 40 Mg Tablet (Atorvastatin) ..... Take 1 tablet once a day Lipitor 40 Mg Tablet (Atorvastatin) ..... 1 tablet once a day Rene Harris MD [id number],S, T he Patient was reencouraged to stop smoking. Rene Harris MD [id number],S,H gladys systolic murmur appreciated on exam. Will recheck echo to monitor progression of aortic stenosis. Rene Harris MD [id number],C, H as had interventions done on the [...] stenosis. Follows with Dr. Wu. Daniela Sanches [facility] Cardiology:Pt states that he had a recent syncopal episode with slurred speech this past Mother's Day. Denies chest pain and palpitations. Does c/o SOB. Did not return back to the hospital as was there month prior with similar episode. Will arrange a 2 week tele monitor and Stress Reg. Daniela Sanches [facility] Cardiology: H is updated medication list for this problem includes: Atorvastatin 40 Mg Tablet (Atorvastatin) ..... Take 1 tablet once a day Lipitor 40 Mg Tablet (Atorvastatin) ..... 1 tablet once a day Daniela Sanches [facility] Cardiology:Will arrlis PICKARD. BP today: 136/73 P rior BP: 140/70 (08/08/2021) His updated medication list for this problem includes: Amlodipine 5 Mg Tablet (Amlodipine) ..... Take 1 tablet by mouth once daily Lasix 20 Mg Tablet (Furosemide) ..... Take 1 once a day Aspirin 81 Mg Tablet,delayed Release (dr/ec) (Aspirin) ..... 1 tablet by mouth once a day Daniela Sanches [facility] Cardiology:Still smo kes 1PPD. The Patient was reencouraged to stop smoking. Daniela Sanches [facility] Telehealth:He has be en having fluctuating BPs [...] Harris MD Cardiology:Will obta in lipids from [facility]'s office. H is updated medication [...] PT and DP. Will schedule AIF at [facility]. Rene Harris MD Cardiology [place] [...] PANE L W/EGFR AIF Intervention - [facility] Arterial - SENSILASE HISTORY OF PROCEDURES Procedure Date Procedure Name Provider Procedure Notes S tatus Complex e/m visit add on Rene Harris MD completed EKG Rene Harris MD completed Complex e/m visit add on Rene Harris MD completed EKG Rene Harris MD completed EKG Rene Harris MD completed
--- OUTSIDE RECORDS SUMMARY | 2024-05-15 02:06 | XMS_ITS | Clinical Summary ---
Author Organization [facility] Address [address] [place] [address] Care Team Providers Care Personal Care Home Administrator Name Role Phone Shay Hooper MD Primary Care Provider Source Comments [facility],non-owned Affiliates and Associated Physician Practices is amultiple site organization consisting of ambulatory clinics and hospital sitesin [place], [place], [place] and [place]. This disclosure is being madepursuant to the Care Everywhere program and may not contain all information available regarding this patient. Last updated 17.[facility] Allergies Active Allergy Reactions Criticality Noted Date [...] CDT Office Visit [facility] - [address] [address] Phyllis Pereira, INDUSTRIAL MANAGEMENT TEACHER-IN STORE MARKETING ASSOCIATE Alcoholic cirrhosis of liver without ascites (Primary Dx); Hepatocellular carcinoma; Secondary esophageal varices with bleeding 05/08/2024 Travel from Last 3 Months Family [...] Body Mass Index 28.17 12/29/2019 10:36 AM ENVIRONMENTAL ENGINEERING TECHNICIAN Plan of Treatment Upcoming Encounters Date Type Department Care Team (Late st Contact Info) Description 05/08/2025 11:00 AM CDT Office Visit [facility] - [facility] [address] [facility] [place] [address] Phyllis Pereira, INDUSTRIAL MANAGEMENT TEACHER-IN STORE MARKETING ASSOCIATE [address] [facility] [address] [place] [address] Health Maintenance Due Date Last Done Comments [...] AAA SCREENING 05/05/2020 COVID-19 VACCINE (1 - 2023- season) 2023 INFLUENZA VACCINE (#1) 2023 DEPRESSION [...] the bathroom Medical Devices Implanted Type Area Auto Accessories Installer Device Identifier Shelf Expiration Date Model / Serial / Lot Patch Tien Eptfe 1 X 9 X .5mm - [id number] Implanted:Qty: 1 on 08/07/2018 by Angelo Wu MD at [facility] Right: Carotid [employer] 05/30/2023 [id number] / Procedures Procedure Name Priority Date/Time Associated Diagnosis Comments GLUCOSE - POINT OF CARE Routine 08/08/2018 7:16 AM CDT from Last 3 Months or Most Recently Relevant to Health Maintenance Results * (ABNORMAL) GLUCOSE - POINT OF CARE (08/08/2018 7:16 AM CDT) [facility] Glucose WB/POC 265(H) 70 - 106 mg/dL 08/08/2018 8:34 AM CDT [facility] Specimen Type Venous 08/08/2018 8:34 AM CDT [facility] Blood BLOOD SPECIMEN / Unknown 08/08/2018 7:16 AM CDT 08/08/2018 8:34 AM CDT Narrative [facility] - 08/08/2018 8:34 AM CDT (2) Provider Notified Angelo Wu MD LAB - POINT OF CARE ORDERABLES [facility] [address] [place] [address] from Last 3 Months or Most Recently Relevant to Health Maintenance Advance Directives * Full Code (Latest Code Status on File) Date Activated Date Inactivated Comments 08/07/2018 5:20 PM 08/08/2018 1:06 PM Care Teams Personal Care Home Administrator Relationship Specialty Start Date End Date Shay Hooper MD [address] [facility] [address] [place] [address] PCP - General Internal Medicine 11/14/17
--- OUTSIDE RECORDS SUMMARY | 2024-05-15 02:06 | XMS_ITS | Encounter Summary ---
Author Organization [facility] Address [address] [facility] [place] [address] Care Team Providers Care Awning Hanger Helper Name Role Phone Shay Hooper MD Primary Care Provider Encounter Details Date Type Department Care Team (Late st Contact Info) Description 10/23/2018 Lab Requisition [facility] Care Pathology Lab [address] [place] [address] Luna Hernandez MD [address] [place] [address] Illness Social History Tobacco Use Types Packs/Day [...] Description 05/08/2025 11:00 AM CDT Office Visit [facility] [address] [facility] [place] [address] Phyllis Pereira, SLURRY TANK TENDER-ENGINEER [employer] [address] [facility] [place] [address] documented as of this encounter Procedures Procedure Name Priority Date/Time Associated Diagnosis Comments PATHOLOGY TISSUE Routine 10/22/2018 3:19 PM CDT Illness documented in this encounter Results * PATHOLOGY TISSUE (10/22/2018 3:19 PM CDT) Case Report Surgical Pathology Report Case: [id number] Authorizing Provider: Luna Hernandez MD Collected: 10/22/2018 03:19 PM Ordering Location: [facility] Received: 10/23/2018 03:19 PM Pathologist: Floyd Rodriguez MD Specimen: Slide Consultation, [id number] 10/24/2018 10:17 AM T [facility] Final Diagnosis Urine, voided, thin prep, cytology: -Negative for high-grade urothelial neoplasia -Slight chronic inflammtion 10/24/2018 10:17 AM T [facility] PATHOLOGY LAB Microscopic Description and Comment Performed. 10/24/2018 10:17 AM CDT [facility] PATH[facility] Clinical History History of bladder cancer, cystoscopy negative. 10/24/2018 10:17 AM T [facility] PATHOLOGY LAB Gross Description Prepared slides received from [place] [facility] labeled [id number]. All material will be returned. 10/24/2018 10:17 AM T [facility] PATHOLOGY LAB Disclaimer The performance characteristics of all immunohistochemical and indirect immunofluorescence stains (if any) cited in this report were determined by the Histopathology Laboratory of [facility]. Some of these tests were developed [...] attending (teaching) pathologist. 10/24/2018 10:17 AM CDT [facility] PATHOLOGY LAB Embedded Images 10/24/2018 10:17 AM CDT [facility] PATHOLOGY LAB Pathology/Cytolo gy SURGICAL PATHOLOGY CONSULTATION AND REPORT ON REFERRED SLIDES PREPARED ELSEWHERE / Unknown 10/22/2018 3:19 PM CDT 10/23/2018 3:19 PM CDT Luna Hernandez MD LAB - PATHOLOGY/CYTO LOGY ORDERABLES Performing Organization Address City/State/[facility] Co de Phone Number [facility] PATHOLOGY LAB [address] [phone] documented in this encounter Visit Diagnoses Diagnosis Illness Other unknown and unspecified cause of morbidity or mortality documented in this encounter Care Teams Awning Hanger Helper Relationship Specialty Start Date End Date Shay Hooper MD [address] [phone] PCP - General Internal Medicine 11/14/17 documented as of this encounter
--- OUTSIDE RECORDS SUMMARY | 2024-05-15 02:06 | XMS_ITS | Data Portability ---
Author Organization [place] [facility], Main Office Address [address] [place] [address] Care Team Providers Care Lab Manager Name Role Phone FLETCHER ALFREDO Special Education Tutor NETO HARRIS Service Transformer Repair Supervisor SHAY HOOPER Primary Care Provider ROSA MARIA CASSIDY Hematology/Oncology [phone] CHANTELL KEARNS General Surgeon EMILIANO LOW Grinder Outside Diameter Assessment Encounter Date Assessment Date Assessment LastModified [...] BUN 23, Cr 1.50, GFR 47 Lipids: [facility] TSH/FT4: WNL VIT D [facility] 04/26/2022: PSA 1.0 09/13/2022: A1C 5.9 MCV [...] BUN 21, Cr 1.40, GFR 51 TSH: [facility] LIPIDS: [facility] A1C 5.7 04/25/2022: CMP: BUN 23, Cr 1.50, GFR 47 Lipids: [facility] TSH/FT4: WNL VIT D [facility] 09/13/2022: A1C 5.9 MCV 97.4, PLT 116 Gluc 123, BUN 23, Cr 1.48, GFR 47 Urine micro alb 26.7 04/25/2022: CMP: BUN 23, Cr 1.50, GFR 47 Lipids: [facility] TSH/FT4: WNL VIT D [facility] 04/26/2022: PSA 1.0 09/13/2022: A1C 5.9 MCV [...] Lab CBC w/ auto diff 2024 025 [facility] (Lab), [address] [place], [address], 04/10/2024 13:14:18 CMP, serum or plasma 2024 025 [facility] (Lab), [address] [place], [address], 04/10/2024 13:14:17 lipid panel, serum [address] (Lab), [address] [place], [address], 04/09/2024 10:46:09 TSH, serum or plasma [address] (Lab), [address] [place], [address], 04/09/2024 10:46:09 T4, free, serum [address] (Lab), [address] [place], [address], 04/09/2024 10:46:09 microalbu min, urine [address] (Lab), [address] [place], [address], 04/09/2024 10:46:08 HbA1c (hemoglob in A1c), blood [address] (Lab), [address] [place], [address], 04/09/2024 10:46:08 vitamin B12 + folate, serum or blood [address] (Lab), [address] [place], [address], 04/09/2024 10:46:09 CBC w/ auto diff 2024 025 [facility] (Lab), [address] [place], [address], 03/21/2024 14:42:13 CMP, serum or plasma 2024 025 [facility] (Lab), [address] [place], [address], 03/13/2024 16:53:29 lipid panel, serum 2024 025 [facility] (Lab), [address] [place], [address], 03/13/2024 17:40:45 TSH, serum or plasma 2024 025 [facility] (Lab), [address] [place], [address], 03/13/2024 17:40:45 T4, free, serum 2024 025 [facility] (Lab), [address] [place], [address], 03/13/2024 17:40:45 microalbu min, urine 2024 025 [facility] (Lab), [address] [place], [address], 03/13/2024 17:40:45 HbA1c (hemoglob in A1c), blood 2024 025 [facility] (Lab), [address] [place], [address], 03/13/2024 17:40:45 vitamin B12 + folate, serum or blood 2024 025 [facility] (Lab), [address] [place], [address], 03/13/2024 17:40:45 CBC w/ auto diff 2023 024 [facility] (Lab), [address] [place], [address], 12/20/2023 15:49:47 CMP, serum or plasma 2023 024 [facility] (Lab), [address] [place], [address], 12/20/2023 15:49:47 lipid panel, serum 2023 024 [facility] (Lab), [address] [place], [address], 11/19/2023 15:35:42 TSH, serum or plasma 2023 024 [facility] (Lab), [address] [place], [address], 11/19/2023 15:29:38 T4, free, serum 2023 024 [facility] (Lab), [address] [place], [address], 11/19/2023 15:31:32 microalbu min, urine 2023 024 [facility] (Lab), [address] [place], [address], 11/19/2023 15:26:40 HbA1c (hemoglob in A1c), blood 2023 024 [facility] (Lab), [address] [place], [address], 11/19/2023 15:17:39 vitamin B12 + folate, serum or blood 2023 024 [facility] (Lab), [address] [place], [address], 11/19/2023 15:33:52 Referral nephrolog ist referral - Please call patient to schedule an appointme nt. Thank you. 2024 025 [place], [address] [address], [address], [place], [address], 04/29/2024 15:01:18 podiatris t referral - Please call patient to schedule an appointme nt. Thank you. 2024 025 BRENDA Powell DPM, [address] [facility], [address], [place], [address], 04/29/2024 14:31:43 endocrino logy referral - Please call patient to schedule an appointme nt. Thank you. 2024 025 [place], [address] , [place], [address], 04/29/2024 19:11:28 physical therapist referral - Please call patient to schedule an appointme nt. Thank you. [address] [facility], [address], [place], [address], 04/29/2024 14:37:17 nephrolog ist referral 2024 025 [email or web address] [place], [address] [address], [address], [place], [address], 03/17/2024 09:19:19 podiatris t referral - Please call patient to schedule. 2024 025 [email or web address] López Powell DPM, [address] [facility], [address], [place], [address], 03/17/2024 09:19:54 cardiolog ist referral 2024 025 [email or web address] [place], [address] [address], [address], [place], [address], 03/17/2024 09:13:42 physical therapist referral - Please call patient to schedule 2024 025 [email or web address] [facility], [address], [place], [address], 04/29/2024 14:15:13 nephrolog ist referral 2023 024 [email or web address] [place], [address], [address], [place], [address], 11/15/2023 17:05:44 podiatris t referral - Please call patient to schedule. 2023 024 nevin Powell DPM, [address], [address], [place], [address], 12/20/2023 09:07:21 cardiolog ist referral 2023 024 [place], [address], [address], [place], [address], 11/20/2023 17:20:49 physical therapist referral - Please call patient to schedule [address] [facility] Elvie Russell [facility], [address], [place], [address], 03/17/2024 09:16:43 Procedures upper endoscopy procedure (EGD) (PROC) - Please call patient to schedule an appointme nt. Thank you. 2024 025 [email or web address] Madiha Mays MD, [address], [address], [place], [address], 04/29/2024 13:33:49 upper endoscopy procedure (EGD) (PROC) - Please call patient to schedule. 2024 025 [email or web address] Madiha Mays MD, [address], [address], [place], [address], 04/29/2024 14:16:03 upper endoscopy procedure (EGD) (PROC) - Please call patient to schedule. 2023 024 nevin Mays MD, [address] [facility], [address], [place], [address], 12/20/2023 09:07:01 Surgeries None recorded. Imaging None recorded. Medication Orders zolpidem 10 mg tablet 2024 025 [facility] #[id number], [address], [place], [address], 04/08/2024 13:07:52 zolpidem 10 mg tablet 2023 024 [facility] [address] [facility], [address] [place] [address], [place], [address], 11/15/2023 14:47:06 zolpidem 10 mg tablet [address] [id number], [address], [place], [address], 11/15/2023 14:48:18 Patient TargetsNo targets recorded. Patient Instructions Encounter Date Encounter Id Patient Instructions Last Modified By Organization Details Last Modified Time 11/15/2023 [id number] dementia rating scale-2* Not available 11/15/2023 14:46:57 alcohol misuse* Not availa ble 11/15/2023 14:46:56 depression screening* Not available 11/15/2023 14:46:55 multi-dimensiona l health assessment questionnaire* Not available 11/15/2023 14:46:56 advance care planning: care instructions Not available 11/15/2023 14:46:50 advance directiv es: care instructions Not available 11/15/2023 14:46:50 [place] Advance Directives Not available 11/15/2023 14:46:50 Personalized [...] I have no recommendations Depression Screening: Negative [email or web address] Not available 11/14/2023 16:48:23 04/08/2024 [id number] Thank you for yo ur visit to [...] homebound status}} Required Home Health Services: {{none correction, physical therapy, occupational therapy correction, physical therapy correction}} Durable Medical Equipment needed: {{cane walker walke r with seat manual wheelchair bedside commode oxygen}} Billing Guidelines CPT code 78655- Transitional Care Management services with moderate medical decision complexity (hgbo-fl-apii visit within 14 days of discharge). CPT code 43524- Transitional Care Management services with high medical decision complexity (xznd-lt-mmbt visit within 7 days of discharge). carlos Not available 04/08/2024 12:19:47 Reason for Referral Grinder Outside Diameter Referral for Ch ronic kidney disease Referring Physician: Shay Hooper Internal Medicine, Encounter Date: 11/15/2023 Care Worker Referral for Type 2 diabetes mellitus without complication Please call patient to schedule. Referring Physician: Radha Brunson Medicine, Encounter Date: 11/15/2023 Physical Therapist Referral for Abnormal gait due to impairment of balance Please call patient to schedule Referring Physician: Radha Brunson, Encounter Date: 11/15/2023 Service Transformer Repair Supervisor Referral for He art murmur Referring Physician: Radha Brunson, Encounter Date: 11/15/2023 Grinder Outside Diameter Referral for Ch ronic kidney disease Referring Physician: Radha Brunson, Encounter Date: 03/13/2024 Care Worker Referral for Type 2 diabetes mellitus without complication Please call patient to schedule. Referring Physician: Radha Brunson, Encounter Date: 03/13/2024 Physical Therapist Referral for Abnormal gait due to impairment of balance Please call patient to schedule Referring Physician: Radha Brunson, Encounter Date: 03/13/2024 Service Transformer Repair Supervisor Referral for He art murmur Referring Physician: Radha Brunson Medicine, Encounter Date: 03/13/2024 Grinder Outside Diameter Referral for Ch ronic kidney disease Please call patient to schedule an appointment. Thank you. Referring Physician: Shay Hooper Internal Medicine, Encounter Date: 04/08/2024 Care Worker Referral for Type 2 diabetes mellitus without [...] contr ast No observ ation record ed. [address], [place], [address], 01/03/2024 09:22:04 09/24/19 24 09/24/2023 LDCT, chest , for lung cance r scree hemal No observ ation record ed. [address] [place], [address], 09/24/2023 14:39:55 09/24/19 24 09/24/2023 LDCT, chest , for lung cance r scree hemal No observ ation record ed. [address] ([employer]) [address] [place], [address], 01/03/2024 09:22:24 11/19/19 24 11/16/2023 trans -thor acic echoc ardio gram (TTE) (PROC ) No observ ation record ed. [email or web address] [facility] [address], [place], [address], 11/19/2023 12:20:42 11/19/19 24 11/16/2023 imagi ng/di agnos tic resul t No observ ation record ed. [address] [facility] [address], [place], [address], 01/07/2024 10:26:58 12/24/19 24 12/24/2023 CT, abdom en, w/ contr ast No observ ation record ed. [address] [address], [place], [address], 01/10/2024 10:01:50 01/18/20 24 01/18/2024 XR, chest No observ ation record ed. [address] [address], [place], [address], 05/01/2024 14:01:46 01/18/20 24 01/18/2024 imagi ng/di agnos tic resul t No observ ation record ed. [address] [address], [place], [address], 05/01/2024 14:04:53 01/19/20 24 01/19/2024 imagi ng/di agnos tic resul t No observ ation record ed. [address] [address], [place], [address], 05/01/2024 14:05:40 03/24/19 25 03/24/2024 XR, chest No observ ation record ed. [address] [address], [place], [address], 05/05/2024 11:08:49 03/24/19 25 03/24/2024 CT, angio gram, chest + abdom en + pelvi s, w/wo contr ast No observ ation record ed. [address], [place], [address], 05/05/2024 11:45:31 03/27/19 25 03/26/2024 stres s echoc ardio gram No observ ation record ed. [address], [place], [address], 05/05/2024 12:00:43 03/27/19 25 03/26/2024 stres s echoc ardio gram No observ ation record ed. [address], [place], [address], 05/05/2024 12:01:17 04/03/19 25 04/03/2024 CT, abdom en + pelvi s, w/o contr ast No observ ation record ed. [address], [place], [address], 05/05/2024 12:22:13 Result Notes None recorded. Problems Name Problem SNOMED Code Status Onset Date Resolution Date Notes Provider Name and Address Organization Details Recorded Time Osteonec rosis of head of femur 917989116 Active 2022 Shay hays MD [address], [address], [place], [address] , [employer] 18:35:50 Localize d, primary osteoart hritis of the hand 440237408 Active 2022 Mynor Judge MD [address], [address], [place], [address] , [employer] 16:08:51 Moderate chronic obstruct kristina pulmonar y disease 372346774 Active 2022 Alfredo Fletcher MD [address], [address], [place], [address] , [employer] 16:27:34 Posterio r rhinorrh ea 36983241 Active 2022 Alfredo Fletcher MD [address] [facility], [place], [address] , [facility] 3 14:49:21 Cirrhosi s of liver 73069343 Active Not Available [facility] 3 02:58:47 Cerebrov ascular accident 063883714 Active 2001 on disabilt iy for his stroke from about 12 years ago Not Available [employer] 3 02:58:47 Retinal artery occlusio n 262778147 Active 2020 Not Available [facility] 3 02:58:47 Gastroes ophageal reflux disease without esophagi tis 905045354 Active 2020 Not Available [facility] 3 02:58:47 Osteomye litis of ankle AND/OR foot 10334694 Completed 201809/17/2018 Not Available [facility] 3 02:58:48 Amputate d big toe 507035959 Active 2018 Not Available [facility] 3 02:58:48 Malignan t neoplasm of urinary bladder 129994135 Active 2016 Not Available [facility] 3 02:58:48 Peripher al arterial occlusiv e disease 204358735 Active 2018 Not Available [facility] 3 02:58:48 Diabetic peripher al neuropat hy 135604754 Active 2018 Not Available [facility] 3 02:58:48 Hyperlip idemia 83162166 Active 2020 Not Available [facility] 3 02:58:49 [facility] hyperten sampson 48701328 Active Not Available [facility] 3 02:58:49 Chronic kidney disease 247303353 Active 2020 Not Available [facility] 3 02:58:49 Smoker 67707656 Active 2020 Not Available [facility] 3 02:58:49 Thrombot ic thromboc ytopenic purpura 97428940 Active 2020 Not Available [facility] 3 02:58:49 Chronic sinusiti s 33488772 Active 2022 Lalito Acuña MD [address], [address], [place], [address] , [facility] [employer] [facility] 3 16:56:16 Serum alpha-fe toprotei n level above referenc e range 846559091 Active 2022 [facility] [employer] [facility] 3 10:07:32 Liver enzymes level above referenc e range 306253980 Active 2023 Shay hays MD [address], [address], [place], [address] , [facility] [employer] [facility] 4 15:50:50 Heart murmur 38992886 Active 2023 Shay hays MD [address], [address], [place], [address] , [facility] [employer] [facility] [employer] [facility] 4 15:50:50 Neuropat hy 366516424 Active 2023 Shay hays MD [address], [address], [place], [address] , [facility] [employer] [facility] 4 15:50:50 Anemia 471853807 Active 2023 Shay hays MD [address], [address], [place], [address] , [facility] [employer] [facility] 4 15:50:50 Serum vitamin B12 below referenc e range 947434393 Active 2023 Shay hays MD [address], [address], [place], [address] , [facility] [employer] [facility] 4 15:50:51 Abnormal gait due to impairme nt of balance 094117200 Active 2023 Shay hays MD [address], [address], [place], [address] , [place] [facility] 4 15:50:51 Skin tag 042401774 Active 2023 Chantell lomeli MD [address], [address], [place], [address] , [place] [facility] 4 13:28:53 Insomnia 280767102 Active 2023 Shay hays MD [address], [address], [place], [address] , [facility] 4 14:42:13 Type 2 diabetes mellitus without complica tion 815884582 Active 2023 Shay hays MD [address], [address], [place], [address] , [place] [facility] 4 18:52:08 Liver mass 680803749 Active 2023 Shay hays MD [address], [address], [place], [address] , [facility] 4 18:52:08 Pain in right hand 51541352210 9109 Active 2023 Shay hays MD [address], [address], [place], [address] , [facility] 4 18:52:08 Skin lesion 42798426 Active 2023 Shay hays MD [address], [address], [place], [address] , [place] [facility] 4 18:52:08 Upper respirat ory infectio n 32932949 Active 2023 Shay hays MD [address], [address], [place], [address] , [place] [facility] 4 18:52:08 Hemorrho ids 35856665 Active 2023 Amador Webster CMA null, [place] [facility] [employer] [facility] 10:23:03 Notes:Medical History: Left CVA without residual hemiparesis 2005 Syncope 2022 Right retinal artery occlusion Bilateral tinnitus Left deviated nasal septum Rhinitis with multiple environmental allergies Chronic sinusitis Eosinophils 80/uL Bilateral gynecomastia Asbestos exposure 0565-6959 Nicotine use Mod COPD Left mid lung [...] Hooper MD [address], [place], [address], [facility] [employer] [facility] [employer] [facility] 04/08/2024 14:02:49 11/15/19 24 Medicare Wellness CPT Code, subsequent completed Zac Sanders LPN [place] [employer] [facility] [employer] [facility] 11/14/2023 16:32:35 11/15/19 24 Advanced Care Planning completed Zac Sanders LPN [place] [employer] [facility] [employer] [facility] 11/15/2023 14:27:09 09/06/19 24 Blank Procedure completed Chantell hernandez MD [address], [place], [address], [facility] [employer] [facility] [employer] [facility] 09/06/2023 11:55:11 09/20/19 23 Medicare Wellness CPT Code, subsequent completed Vivian Jacome RN [facility] [employer] [facility] 09/19/2022 14:17:19 08/08/19 19 carotid endarterectomy completed Not Available [facility] 04/26/2022 02:51:44 06/03/19 17 Treatment of bladder lesion completed Not Available [facility] 04/26/2022 02:51:44 07/01/19 16 Excisions - Specify completed Not Available [facility] 04/26/2022 02:51:44 07/20/19 13 Colonoscopy completed Not Available [facility] 04/26/2022 02:51:44 Eye Surgery completed Not Available [facility] 04/26/2022 02:51:44 Toe completed Not Available [facility] 04/26/2022 02:51:44 Knee Surgery completed Not Available [facility] 04/26/2022 02:51:44 Appendectomy completed Not Available [facility] 04/26/2022 02:51:44 Brain Surgery completed Not Available [facility] 04/26/2022 02:51:44 nasal endoscopy with maxillary antrostomy completed Iesha Culp RN [facility] 10/10/2022 08:49:43 surgical procedure on frontal sinus completed [facility] 10/10/2022 08:50:23 ethmoid sinusectomy completed MARIANA Turner [facility] 10/10/2022 08:50:33 endoscopic sphenoidotomy completed MARIANA Turner [facility] 10/10/2022 08:50:47 Cardiac Stent Placement completed EUFEMIA Padron [facility] 03/13/2024 14:31:56 Angioplasty completed EUFEMIA Padron [facility] 03/13/2024 14:32:07 Imaging Results Imaging Date Name Status LastModified by Organization Details LastModified Time 09/20/2023 CT, abdomen, w/ contrast completed [address] [facility] [address], [place], [address], 01/03/2024 09:22:04 09/24/2023 LDCT, chest, for lung cancer screening completed [address] [place], [address], 09/24/2023 14:39:55 09/24/2023 LDCT, chest, for lung cancer screening completed [address] ([employer]) [address] [place], [address], 01/03/2024 09:22:24 11/16/2023 trans-thoracic echocardiogram (TTE) (PROC) completed [address] [facility] [address], [place], [address], 11/19/2023 12:20:42 11/16/2023 imaging/diagnostic result completed [address] [facility] [address], [place], [address], 01/07/2024 10:26:58 12/24/2023 CT, abdomen, w/ contrast completed [address], [address], 01/10/2024 10:01:50 01/18/2024 XR, chest completed [address], [address], 05/01/2024 14:01:46 01/18/2024 imaging/diagnostic result completed [address], [address], 05/01/2024 14:04:53 01/19/2024 imaging/diagnostic result completed [address], [address], 05/01/2024 14:05:40 03/24/2024 XR, chest completed [address], [address], 05/05/2024 11:08:49 03/24/2024 CT, angiogram, chest + abdomen + pelvis, w/wo contrast completed [address], [address], 05/05/2024 11:45:31 03/26/2024 stress echocardiogram completed [address], [address], 05/05/2024 12:00:43 03/26/2024 stress echocardiogram completed [address], [place], [address], 05/05/2024 12:01:17 04/03/2024 CT, abdomen + pelvis, w/o contrast completed [address], [place], [address], 05/05/2024 12:22:13 Procedure Notes None recorded. Medical Equipment None Reported. Allergies Allergen ID Allergen Name Allergen Category Reaction Reaction Severity Criticality Documentation Date Start Date Code Code System Note Provider Name and Address Organization Details Recorded Time 5276 Product containin g penicilli n (product) medicatio n Not available Not available Not available 04/26/2022 60686 8001 SNOMED Not Available [facility] 3 03:08:35 5277 doxycycli ne Not available Not available Not available Not available 04/26/2022 3640 RxNorm Not Available [facility] 3 03:08:35 5278 codeine medicatio n abdominal pain Not available Not available 04/26/2022 2670 RxNorm Not Available [facility] 3 03:08:35 25079 torsemide medicatio n rash moderate low 06/02/2022 61948 RxNorm EUFEMIA Tyson null, [place] [facility] 3 10:43:49 Medications Name Sig Start Date [...] n for injection IN OFFICE 07/05 completed [facility]: [id number] - Not Available Not Available Not [...] e 137 mcg (0.1 %) nasal spray [place] 2 sprays twice a day by intranas [...] bromide 42 mcg (0.06 %) nasal spray [place] 1 spray 4 times a day by [...] %) injection solution IN OFFICE 07/05 completed [facility] 97638-45 05-27 Not Available Not Available Not Available [...] Available Not Available Not Available [employer] Pen [place] 32 gauge x 5/32 once daily uud [...] Updated DateTime 4 177.8 cm 29 kg/m2 70339.6 6 g 97.2 [degF] 72 /min 14 /min 98 % 98 % 120 mm[Hg] 70 mm[Hg] Manju L[facility] [employer] [facility] 4 11:10:30 Date Recorded Body height Body mass index (BMI) Body weight Body temperature Heart rate Respiratory rate Oxygen saturation Oxygen saturation in Arterial blood by Pulse oximetry Systolic blood pressure Diastolic blood pressure Provider Name and Address Organization Details Last Updated DateTime 4 177.8 cm 29 kg/m2 75366.6 6 g 98.6 [degF] 72 /min 12 /min 98 % 98 % 122 mm[Hg] 72 mm[Hg] Brooklyn Myesr MA [facility] [employer] [facility] 4 10:31:23 Date Recorded Body height Body mass index (BMI) Body weight Body temperature Heart rate Oxygen saturation Oxygen saturation in Arterial blood by Pulse oximetry Systolic blood pressure Diastolic blood pressure Provider Name and Address Organization Details Last Updated DateTime 4 177.8 cm 26.7 kg/m2 24704.1 8 g 97.1 [degF] 71 /min 98 % 98 % 134 mm[Hg] 60 mm[Hg] Viridiana Carlos MA [facility] [employer] [facility] 4 14:23:10 Date Recorded Pain severity - 0-10 verbal numeric rating [Score] - Reported Provider Name and Address Organization Details Last Updated DateTime 11/15/2023 0 Zac Sanders LPN [facility] [employer] [facility] 11/15/2023 14:24:44 Date Recorded Body height Body mass index (BMI) Body weight Body temperature Heart rate Systolic blood pressure Diastolic blood pressure Provider Name and Address Organization Details Last Updated DateTime 5 177.8 cm 26.4 kg/m2 40701 g 97.6 [degF] 60 /min 100 mm[Hg] 50 mm[Hg] EUFEMIA Padron [facility] [employer] [facility] 5 14:31:24 Date Recorded Body height Body mass index (BMI) Body weight Body temperature Heart rate Oxygen saturation Oxygen saturation in Arterial blood by Pulse oximetry Pain severity - 0-10 verbal numeric rating [Score] - Reported Systolic blood pressure Diastolic blood pressure Provider Name and Address Organization Details Last Updated DateTime 5 177.8 cm 25.5 kg/m2 24996.4 4 g 97.6 [degF] 103 /min 96 % 96 % 0 130 mm[Hg] 58 mm[Hg] Yeni Chavez MA [facility] [employer] [facility] 5 12:23:09 Social History Question Answer Notes LastModified by Organization Details LastModified Time Tobacco Smoking Status Current Every Day Smoker Not Available [employer] 04/26/2022 02:49:19 Do You Have An Advance Directive? No Not Interested In Info Today MIGRATION.0301 [id number] Information not available 04/26/2022 What Is Your Level Of Alcohol Consumption? Occasional MIGRATION.0301 068951 Information not available 04/26/2022 How Many Years Have You Consumed Alcohol? 50 [email or web address] Information not available 11/15/2023 Are You Blind Or Do You Have Difficulty Seeing? No MIGRATION.0301 314043 Information not available 04/26/2022 Is Blood Transfusion Acceptable In An Emergency? Yes Information not available 11/15/2023 What Is Your Level Of Caffeine Consumption? None MIGRATION.0301 148875 Information not available 04/26/2022 How Much Tobacco Do You Chew? None MIGRATION.0301 196141 Information not available 04/26/2022 In The 14 Days Before Symptom Onset, Have You Had Close Contact With A Laboratory-conf irmed COVID-19 While That Case Was Ill? No MIGRATION.0301 140444 Information not available 04/26/2022 In The 14 Days Before Symptom Onset, Have You Had Close Contact With A Person Who Is Under Investigation For COVID-19 While That Person Was Ill? No MIGRATION.0301 856246 Information not available 04/26/2022 Are You Currently Employed? No [email or web address] Information not available 11/15/2023 Are You Deaf Or Do You Have Serious Difficulty Hearing? No MIGRATION.0301 996598 Information not available 04/26/2022 What Type Of Diet Are You Following? REGULAR MIGRATION.0301 189029 Information not available 04/26/2022 Which Illicit Or Recreational Drugs Have You Used? None MIGRATION.0301 834939 Information not available 04/26/2022 Do You Or Have You Ever Used E-cigarettes Or Vape? Never Used Electronic Cigarettes MIGRATION.0301 594174 Information not available 04/26/2022 What Is The Highest Grade Or Level Of School You Have Completed Or The Highest Degree You Have Received? [id number] MIGRATION.0301 960294 Information not available 04/26/2022 Do You Have An Electrostatic Air Filter? No Information not available 06/05/2022 What Is Your Occupation? Retired MIGRATION.0301 832418 Information not available 04/26/2022 How Many Days Of Moderate To Strenuous Exercise, Like A Brisk Walk, Did You Do In The Last 7 Days? 0 [email or web address] Information not available 11/15/2023 Have There Been Any Changes To Your Family Or Social Situation? No MIGRATION.0301 487280 Information not available 04/26/2022 What Is The Fluoride Status Of Your Home? Unknown MIGRATION.0301 644374 Information not available 04/26/2022 Are There Any Guns Present In Your Home? Yes MIGRATION.0301 225986 Information not available 04/26/2022 Do You Have A Humidifier? No Information not available 06/05/2022 Do You Use Insect Repellent Routinely? No MIGRATION.030 335751 Information not available 04/26/2022 Where Do You Live? SingleLevelHouse MIGRATION.030 581674 Information not available 04/26/2022 Presence Of Domestic Violence No [email or web address] Information not available 11/15/2023 Guns Present In The Home? Yes [email or web address] Information not available 11/15/2023 Are You Able To Care For Yourself? Yes [email or web address] Information not available 11/15/2023 Are You Blind Or Do Yo Have Difficulty Seeing? No [email or web address] Information not available 11/15/2023 Are You Deaf Or Do You Have Serious Difficulty Hearing? No Information not available 11/15/2023 General Stress Level? Low [email or web address] Information not available 11/15/2023 Live Alone Of With Others? With Others [email or web address] Information not available 11/15/2023 Do You Have A Medical Power Of Frameman? No MIGRATION.030 825717 Information not available 04/26/2022 Do You Have Moisture Problems In Your Home? No Information not available 06/05/2022 What Was The Date Of Your Most Recent Tobacco Screening? 04/08/2024 [email or web address] Information not available 04/08/2024 How Many Children Do You Have? 1 [email or web address] Information not available 11/15/2023 Have You Ever Been Counseled For Unhealthy Alcohol Use? No [email or web address] Information not available 11/15/2023 Do You Have Any Pets? Yes Dog [email or web address] Information not available 11/15/2023 Do You Use Protection During Sex? No [email or web address] Information not available 11/15/2023 What Is Your Relationship Status? MIGRATION.0301 723021 Information not available 04/26/2022 Do You Use Your Seat Belt Or Car Seat Routinely? Yes Information not available 11/07/2022 Are You Sexually Active? Yes [email or web address] Information not available 11/15/2023 Do You Have Smoke And Carbon Monoxide Detectors In Your Home? Yes MIGRATION.0301 022238 Information not available 04/26/2022 At What Age Did You Start Smoking Tobacco? 12 MIGRATION.0301 642076 Information not available 04/26/2022 Are You Passively Exposed To Smoke? Yes MIGRATION.0301 058118 Information not available 04/26/2022 Do You Or Have You Ever Used Smokeless Tobacco? Never Used Smokeless Tobacco MIGRATION.0301 935642 Information not available 04/26/2022 Are There Any Smokers In Your House? Yes MIGRATION.0301 748143 Information not available 04/26/2022 How Much Tobacco Do You Smoke? 1 PPD 3/4 Pack Information not available 07/20/2022 What Types Of Sporting Activities Do You Participate In? None [email or web address] Information not available 11/15/2023 Do You Feel Stressed (tense, Restless, Nervous, Or Anxious, Or Unable To Sleep At Night)? [id number] MIGRATION.0301 571280 Information not available 04/26/2022 Do You Use Any Illicit Or Recreational Drugs? No MIGRATION.0301 083223 Information not available 04/26/2022 Do You Use Sunscreen Routinely? No MIGRATION.0301 988953 Information not available 04/26/2022 Has Tobacco Cessation Counseling Been Provided? No Information not available 11/15/2023 How Many Years Have You Smoked Tobacco? 55 [email or web address] Information not available 06/27/2022 Have You Recently Traveled Abroad? No MIGRATION.0301 313816 Information not available 04/26/2022 Do You Or Have You Ever Used Any Other Forms Of Tobacco Or Nicotine? No MIGRATION.0301 201314 Information not available 04/26/2022 How Many Days In The Past Year Have You Consumed 5 Or More Drinks? 0 [email or web address] Information not available 11/15/2023 Sex: Male Functional Status Question Answer Note LastModified by Organizat ion Details LastModified Time Do you have difficulty walking or climbing stairs? No MIGRATION.9897879 026 Information not available 04/26/2022 Do you have transportation difficulties? No MIGRATION.1030691 026 Information not available 04/26/2022 Are you able to walk? YESWOREST MIGRATION.0429459 026 Information not available 04/26/2022 Do you have difficulty doing errands alone? No MIGRATION.6988820 026 Information not available 04/26/2022 Are you able to care for yourself? Yes MIGRATION.4706169 026 Information not available 04/26/2022 Do you have difficulty dressing or bathing? No MIGRATION.1837051 026 Information not available 04/26/2022 What is your exercise level? None MIGRATION.5260590 026 Information not available 04/26/2022 Mental Status Question Answer Note LastModified by Organizat ion Details LastModified Time Do you have difficulty concentrating, remembering or making decisions? No MIGRATION.911178261 6 Information not available 04/26/2022 Family History Relationship Description Onset Age of this Age Resolved Age Notes LastModified by Organization Details LastModified Time Mother Pneumonia 70 MIGRATION.378 [id number] Not available 04/26/2022 02:51:48 Father Essential hypertension 62 MIGRATION.486 [id number] Not available 04/26/2022 02:51:48 Father Cerebrovascu lar accident MIGRATION.637 [id number] Not available 04/26/2022 02:51:48 Father Blood coagulation disorder [email or web address] Not available 2022 14:46:54 Medical History Condition Response ARTHRITIS Y USE OF BLOOD THINNERS Y VASCULAR DISEASE Y KIDNEY DISEASE Y DIABETES, TYPE Y PERIPHERAL VASCULAR DISEASE Y INSOMNIA Y MYOCARDIAL INFARCTION Y HYPERTENSION Y HIGH CHOLESTEROL / HYPERLIPIDEMIA Y CANCER: SPECIFY Y NEUROLOGICAL PROBLEMS Y GERD/NAUSEA Y ANEMIA/BLOOD DISORDER Y URINARY/BLADDER/KIDNEY PROBLEMS Y STROKE/TIA Y Immunizations Vaccine Type Date Status Note Provider Nam e and Address Organization Details Recorded Time Tdap 02/06/2017 completed Not Available [employer] 04/26/2022 03:08:26 Past Encounters Encounter ID Performer Location Encounter Start Date Encounter Closed Date Diagnosis/Indication Diagnosis SNOMED-CT Code Diagnosis ICD10 Code Diagnosis Note [id number] [place] [place] [address] [facility] [place] [address] [place] [address] 05/20/2020 00:00:00 05/20/2020 16:55:08 [id number] _ATHENA_M IGRATION_ DEFAULT_1 _1 , 05/20/2020 00:00:00 05/20/2020 16:17:59 [id number] _ATHENA_M IGRATION_ DEFAULT_1 _1 , 09/16/2020 00:00:00 09/16/2020 15:23:08 [id number] [facility] [address] [place] [address] Ave[address] [facility] [address] [place] [address] 10/19/2020 00:00:00 10/20/2020 11:54:38 [id number] _ATHENA_M IGRATION_ DEFAULT_1 _1 , 01/13/2021 00:00:00 01/13/2021 15:27:11 [id number] _ATHENA_M IGRATION_ DEFAULT_1 _1 , 05/12/2021 00:00:00 05/12/2021 15:01:10 [id number] [facility] Internal Med [facility] [address] [place], [place] [address]e., [address] [address] 05/26/2021 00:00:00 05/26/2021 14:55:02 [id number] [facility] Internal [facility] [address] [place], [place] [address]., [address] [address] 11/08/2021 00:00:00 11/08/2021 14:54:21 [id number] [facility] [address] [place] [address] 12/15/2021 00:00:00 12/15/2021 21:42:48 [id number] Shay hays MD [facility] [address] [place], [place] [address]., [address] [address] 05/16/2022 13:58:55 05/16/2022 14:33:54 Screening - NAD 508161334 Z13.9 C-scope: 10/16/16: Dr Nilda hernandez next in 10 years Get flu shot declined thisUTD Tdap 02/06/17Ge t COVID 19 vaccine done states that he does not want it as he does not believe in vaccine that was rushed thru', advised to follow CDC guidelines RTC in 4 monthsGet labsER if worsehe did verbalize his understand ing of above Heart murmur 52010740 R0 1.[address] Harris 08/08/2021 Type 2 anish betes mellitus without complication 608034347 E11.9 On trescibaOn Fiasp [address] Dhillon 06/02/[address] Powell podiatryNe eds to see eye MDGet labs from Dr Dhillon Essential hypertension 63615526 I10 On ASA Off lasixOff losartan 25mg daily On chlorthali done 25mg 1/[address] Low 10/04/2021 On nadolol 20mg dailyGet labsHe does see Dr Low 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.[address] Jorge 10/05/21, next in one yearGet repeat labs Malignant neoplasm of urinary bladder 242880483 C67.9 s/p surgery by Dr Daniels, in 06/[address] Daniels Smoker 01328121 F17.200 Advised to quit LDCT 09/26/2019 CT chest 06/06/2021 : Cirrhosis of the liverGet US AAA Liver enzy mes level above reference range 159975231 R74.[address] Silverio , but now sees Dr Brooks liver 05/17/2021 : cirrhosis, cholelithi asisGet labs Chronic ki dney disease 181222279 N18.9 Dr Low nephrology Neuropathy 978222781 G62 .9 Not on lyrica 50mg tidDoes well Gastroesop hageal reflux disease without esophagitis 872500950 K21.9 On pantaprozo leDoes wellTake as needed Hyperlipidemia 78062846 E78.5 On atorvastat in 20mg dailyNot on vascepaGet labs Insomnia 068074834 G47.0 0 On ambienDoes well Retinal ar amy occlusion 864301780 H34.9 Seen by [facility] 05/07/18: Dr Coleman, noted to have a Hallenhors t plaqueKeep apt wtih Dr Collado who he now sees Anemia 697286958 D64.9 Is on ironDoes well Osteonecro sis of head of femur 886066829 M87.[address] Barfield 01/15/2020 , no surgery doneDoes well Right uppe r quadrant pain 402094360 R10.[address] Watson 01/15/2020 No surgery doneDoes well Serum brielle min B12 below reference range 769233952 R79.89 Pain in right hand 71912 99239 90293 M79.641 Abnormal g ait due to impairment of balance 518638121 R26.89 Feels that his gait is getting worse, he did have cerebellar surgery 17 years ago and feels that this contribute s to it, will get PT [id number] Mynor Judge MD [facility] [place] [place] [address] [place] [address] 06/27/2022 14:31:29 06/27/2022 15:06:26 Pain of bilateral hands 7003789381 6126414 M79.641 M79.642 Localized, primary osteoarthritis of the hand 010830631 M19.049 we discussed different treatment options. Sterile [...] to anti-infla mmatory with appropriat e precaution [id number] Cindy Dhillon MD [facility] [place] [address] [place] [address] 06/02/2022 10:37:36 06/02/2022 11:15:29 Well controlled type 2 diabetes mellitus 872984914 E11.9 A1C of 5.6%- continue tresiba 50 [...] goal range. Chronic ob structive pulmonary disease 73484498 J44.9 refer to pulmonolog y and obtain PFTs - patient chronic smoker- wheezy on examinatio n and has increased expiratory phase. Would benefit from overall pulm evaluation . Dyslipidemia 103744948 E 78.5 Continue statin therapy as LDL [...] he chooses to go outside of the [facility] to obtain labwork he was [...] in his case. He voiced understand ing. [id number] Shay hays MD [facility] [place] [address] [facility] [place] [address] 06/05/2022 14:29:35 06/05/2022 15:06:24 Screening - NAD 183423252 Z13.9 C-scope: 10/16/16: Dr Nilda hernandez next in 10 years Get flu shot declined thisUTD Tdap 02/06/17Ge t COVID 19 vaccine done states that he does not want it as he does not believe in vaccine that was rushed thru', advised to follow CDC guidelines RTC in 4 monthsGet labsER if worsehe did verbalize his understand ing of above Heart murmur 24605598 R0 1.[address] Harris Essential hypertension 80362204 I10 BP much better today 06/05/2022 On ASAOn amlodipine 5mg dailyOn chlorthali done 25mg 1/[address] Low 10/04/2021 On nadolol 20mg daily OK to renew 06/05/2022 Off lasixOff losartan 25mg daily as per Dr Harris 05/30/[address] Low [id number] Alferdo Fletcher MD [address] [address] 06/05/2022 15:34:48 06/06/2022 08:17:08 Dyspnea on exertion 02114182 R06.09 R05.9 T78.40XS D89.9 Smoker 07086627 F17.218 F17.219 Z87.891 [id number] Alfredo Fletcher MD [address] [address] 07/04/2022 15:25:42 07/05/2022 08:19:32 Smoker 87011619 F17.218 F17.219 Z87.891 Moderate c hronic obstructive pulmonary disease 804414439 J44.9 [id number] Alfredo Fletcher MD [address] [address] 07/20/2022 14:00:27 07/21/2022 08:30:46 Smoker 80921429 F17.218 F17.219 Z87.891 Moderate c hronic obstructive pulmonary disease 453531404 J44.9 J44.1 Posterior rhinorrhea 758 45045 R09.82 J01.90 [id number] Lalito Acuña MD [facility] [place] [place] [address] [place] [address] 08/24/2022 11:44:23 08/24/2022 16:39:03 Chronic sinusitis 75661434 J32.9 [id number] Lalito Acuña MD [facility] [place] [facility] [place] [address] [place] [address] 09/14/2022 12:25:09 09/14/2022 12:47:31 Chronic sinusitis 88492954 J32.9 Chronic ma xillary sinusitis 16651585 J32.0 Chronic et hmoidal sinusitis 15414200 J32.2 Chronic fr ontal sinusitis 00635759 J32.1 Chronic sp henoidal sinusitis 45759442 J32.3 [id number] Shay hays MD [facility] [address] [facility], [place] [address] [place] [address] 09/19/2022 13:55:53 09/19/2022 14:30:51 Screening - NAD 692901348 Z13.9 C-scope: 10/16/16: Dr Nilda hernandez next in 10 years Get flu shot declined thisUTD Tdap 02/06/17Ge t COVID 19 vaccine done states that he does not want it as he does not believe in vaccine that was rushed thru', advised to follow CDC guidelines RTC in 4 monthsGet labsER if worsehe did verbalize his understand ing of above Heart murmur 57268786 R0 1.[address] Harris Essential hypertension 20855524 I10 BP much better today 06/05/2022 On ASAOn amlodipine 5mg dailyOn chlorthali done 25mg 1/[address] Low 10/04/2021 On nadolol 20mg daily OK to renew 06/05/2022 Off lasixOff losartan 25mg daily as per Dr Harris 05/30/2022 Get labsHe does see Dr Low Type 2 anish betes mellitus without complication 613149260 E11.9 On trescibaOn Fiasp Sees Dr Dhillon 06/02/2022 next 11/27/[address] Powell podiatryNe eds to see eye MDGet labs from Dr Dhillon Thrombotic thrombocytopenic purpura 41171995 M31.[address] Jorge 10/05/21, next in one yearGet repeat labs Malignant neoplasm of urinary bladder 264929621 C67.9 s/p surgery by Dr Daniels, in 06/[address] Daniels Smoker 39421520 F17.200 Advised to quit LDCT 09/26/2019 CT chest 06/06/2021 : Cirrhosis of the liverGet US AAA Liver enzy mes level above reference range 083270261 R74.[address] Silverio , but now sees Dr Brooks liver 05/17/2021 : cirrhosis, cholelithi asisGet labs Chronic ki dney disease 633151464 N18.9 Dr Low nephrology Neuropathy 682946377 G62 .9 Not on lyrica 50mg tidDoes well Gastroesop hageal reflux disease without esophagitis 571161577 K21.9 On pantaprozo leDoes wellTake as needed Hyperlipidemia 68620358 E78.5 On atorvastat in 20mg dailyNot on vascepaGet labs Insomnia 409253628 G47.0 0 On ambienDoes well Retinal ar amy occlusion 166903549 H34.9 Seen by [facility] 05/07/18: Dr Coleman, noted to have a Hallenhors t plaqueKeep apt wtih Dr Collado who he now sees Anemia 769735186 D64.9 Is on ironDoes well Osteonecro sis of head of femur 383108287 M87.[address] Barfield 01/15/2020 , no surgery doneDoes well Right uppe r quadrant pain 504111731 R10.[address] Watson 01/15/2020 No surgery doneDoes well Serum brielle min B12 below reference range 475987570 R79.89 Pain in right hand [address] 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 Abnormal g ait due to impairment of balance 210729106 R26.89 Feels that his gait is getting worse, he did have cerebellar surgery 17 years ago and feels that this contribute s to it, will get PT Adult heal th examination 185256754 Z00.00 Screening for disorder 544284592 Z13.9 [id number] Lalito Acuña MD [facility] [address] [place] [address] 10/12/2022 12:28:40 10/12/2022 13:42:07 Chronic sinusitis 28057837 J32.9 [id number] Alfredo Fletcher MD [facility] Pulmonolo [place] [address] [place] [address] 11/07/2022 14:00:11 11/08/2022 09:18:46 Smoker 39831924 F17.218 F17.219 Z87.891 Moderate c hronic obstructive pulmonary disease 980888749 J44.9 J44.1 Posterior rhinorrhea 758 09810 R09.82 [id number] Cindy Dhillon MD [facility] [place] [place] [place] [address] [place] [address] 11/27/2022 14:43:15 11/27/2022 15:48:01 Well controlled type 2 diabetes mellitus 422667206 E11.9 A1C of 5.7%- continue tresiba 50 [...] to endocrinol ogy per patient request. Dyslipidemia 812959102 E 78.5 Continue statin therapy as LDL [...] answered and refills necessary at visit today. [id number] Lalito Acuña MD [facility] [place] [address] [place] [address] 12/07/2022 16:27:51 12/08/2022 14:58:09 Chronic sinusitis 69366576 J32.9 [id number] Shay hays MD [facility] [place] [address] [facility] , [facility] [place] [address] 12/27/2022 11:27:41 12/27/2022 11:49:29 Abdominal pain 43963269 R10.[address] scan abd/pelvis , stat hold and callMay need to go to ER if not better, he is agreeable to this plan of care Addendum: 12/27/2022 :CT A/P; noted, needs to see GI hepatologi st, concern for masses Liver mass 704500581 R16 .0 Get a referral to oncologist CT A/P 12/27/2022 [id number] Shay hays MD [facility] [place] [facility] [address] [facility] 15 [place] [address] 03/20/2023 14:10:52 03/22/2023 11:39:53 Liver mass 129319083 R16.0 Get a referral to oncologist CT A/P 12/27/[address] 01/04/2023 MRI Abd: 01/27/2023 CT 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/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 Dr Cassidy 01/02/2023 Screening - NAD 24652645 3 Z13.9 C-scope: 10/16/16: Dr Nilda hernandez [...] his understand ing of above Heart murmur 87633498 R0 1.[address] Harris Essential hypertension 54775277 I10 BP much better today 06/05/2022 On ASAOn amlodipine 5mg dailyOn chlorthali done 25mg 1/[address] Low 10/04/2021 On nadolol 20mg daily OK to renew 06/05/2022 Off lasixOff losartan 25mg daily as per Dr Harris 05/30/2022 Get labsHe does see Dr Low Type 2 anish betes mellitus without complication 896208599 E11.9 On trescibaOn Fiasp Sees Dr Dhillon 06/02/2022 next 11/27/[address] Powell podiatryNe eds to see eye MDGet labs from Dr Dhillon Thrombotic thrombocytopenic purpura 74929893 M31.[address] Jorge 10/05/21No w sees Dr Jimenez repeat labs Malignant neoplasm of urinary bladder 820766219 C67.9 s/p surgery by Dr Daniels, in 06/[address] Daniels Smoker 33676747 F17.200 Advised to quit LDCT 09/26/2019 CT chest 06/06/2021 : Cirrhosis of the liverGet AAA Liver enzy mes level above reference range 267703466 R74.[address] Silverio , but now sees Dr Brooks liver 05/17/2021 : cirrhosis, cholelithi asisGet labs Chronic ki dney disease 570211082 N18.9 Dr Low nephrology Neuropathy 054800670 G62 .9 Not on lyrica 50mg tidDoes well Gastroesop hageal reflux disease without esophagitis 825568084 K21.9 On pantaprozo leDoes wellTake as needed Hyperlipidemia 73808443 E78.5 On atorvastat in 20mg dailyNot on vascepaGet labs Insomnia 863917970 G47.0 0 On ambienDoes well Retinal ar amy occlusion 188475348 H34.9 Seen by [facility] 05/07/18: Dr Coleman, noted to have a Hallenhors t plaqueKeep apt wtih Dr Collado who he now sees Anemia 891104922 D64.9 Is on ironDoes well Osteonecro sis of head of femur 774806372 M87.[address] Barfield 01/15/2020 , no surgery doneDoes well Serum brielle min B12 below reference range 390892536 R79.89 Pain in right hand [address] 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 Abnormal g ait due to impairment of balance 582213466 R26.89 Feels that his gait is getting worse, he did have cerebellar surgery 17 years ago and feels that this contribute s to it, will get PT OV 03/20/2023 : Get PT renewed [id number] Shay hays MD [facility] [place] [address] [place] [address] 07/04/2023 10:01:55 07/04/2023 10:55:29 Screening - NAD 655347460 Z13.9 C-scope: 10/16/16: Dr Nilda hernandez next [...] his understand ing of above Liver mass 024263027 R16 .0 Get a referral to oncologist CT A/P 12/27/[address] 01/04/2023 MRI Abd: 01/27/2023 CT 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/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CT A/P 06/29/2023 : Dr Khanh Cassidy will see 07/06/2023 Heart murmur 62214361 R0 1.[address] Harris Essential hypertension 93495867 I10 BP much better today 06/05/2022 On ASAOn amlodipine 5mg dailyOn chlorthali done 25mg 1/[address] Low 10/04/2021 On nadolol 20mg daily OK to renew 06/05/2022 Off lasixOff losartan 25mg daily as per Dr Harris 05/30/2022 Get labsHe does see Dr Low Type 2 anish betes mellitus without complication [id number] E11.9 On trescibaOn Fiasp Sees Dr Dhillon 06/02/2022 next 11/27/[address] Powell podiatryNe eds to see eye MDGet labs from Dr Dhillon Thrombotic thrombocytopenic purpura 99003606 M31.[address] Jorge 10/05/21No w sees Dr Jimenez repeat labs Malignant neoplasm of urinary bladder 623077426 C67.9 s/p surgery by Dr Daniels, in 06/[address] Daniels Smoker 42050045 F17.200 Advised to quit LDCT 09/26/2019 CT chest 06/06/2021 : Cirrhosis of the liverGet AAA Liver enzy mes level above reference range 667845987 R74.[address] Silverio , but now sees Dr Ledezma liver 05/17/2021 : cirrhosis, cholelithi asis Get labs Chronic ki dney disease 647480103 N18.9 Dr Low nephrology Neuropathy 426129380 G62 .9 On lyrica 50mg tid Does well Gastroesop hageal reflux disease without esophagitis 338709781 K21.9 On pantaprozo leDoes wellTake as needed Hyperlipidemia 98566389 E78.5 On atorvastat in 20mg dailyNot on vascepa Get labs Insomnia 853506503 G47.0 0 On ambienDoes well Retinal ar amy occlusion 323327315 H34.9 Seen by [facility] 05/07/18: Dr Coleman, noted to have a Hallenhors t plaque Keep apt wtih Dr Collado who he now sees Anemia 640536070 D64.9 Is on iron Does well Osteonecro sis of head of femur 017703524 M87.[address] Barfield 01/15/2020 , no surgery done Does well Serum brielle min B12 below reference range 523944199 R79.89 Pain in right hand [address] 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 Abnormal g ait due to impairment of balance 869970604 R26.89 Feels that his gait is getting worse, he did have cerebellar surgery 17 years ago and feels that this contribute s to it, will get PT OV 03/20/2023 : Get PT renewed Upper resp iratory infection 37846860 J06.9 Get xray chestGet on z-pack, flonase and claritinDo es not want to do COVID 19 RT PCR or strep or fluER if worse Addendum: 07/04/2023 : Case sent Skin lesion 44709688 L98 .9 Multiple slightly raised dark macules noted on the R>L abd wallRefer to Dr Watson [id number] Chantell lomeli MD [facility] [place] [address] [place] [address] 07/10/2023 11:14:23 07/25/2023 16:22:10 Skin tag 669762940 L91.8 [id number] Shay hays MD [facility] [place] [facility] [place] [address] [place] [address] 07/19/2023 14:15:12 07/19/2023 14:46:44 Liver mass 384767057 R16.0 Get a referral to oncologist CT A/P 12/27/[address] 01/04/2023 MRI Abd: 01/27/2023 CT 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/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CT A/P 06/29/2023 : Dr Khanh Cassidy 07/06/2023 , f/u in 3 weeks Screening - NAD 95987580 3 Z13.9 C-scope: 10/16/16: Dr Nilda hernandez [...] his understand ing of above Heart murmur 01769601 R0 1.[address] Harris Essential hypertension 44591696 I10 BP much better today 06/05/2022 On ASAOn amlodipine 5mg dailyOn chlorthali done 25mg 1/[address] Low 10/04/2021 On nadolol 20mg daily OK to renew 06/05/2022 Off lasixOff losartan 25mg daily as per Dr Harris 05/30/2022 Get labsHe [address] Low Type 2 anish betes mellitus without complication 796792663 E11.9 On trescibaOn Fiasp Sees Dr Dhillon 06/02/2022 next 11/27/[address] Powell podiatryNe eds to see eye MDGet labs from Dr Dhillon Thrombotic thrombocytopenic purpura 48415925 M31.[address] Jorge 10/05/21No w sees Dr Jimenez repeat labs Malignant neoplasm of urinary bladder 596833700 C67.9 s/p surgery by Dr Daniels, in 06/[address] Daniels Smoker 06737844 F17.200 Advised to quit LDCT 09/26/2019 CT chest 06/06/2021 : Cirrhosis of the liverGet AAA Liver enzy mes level above reference range 159921766 R74.[address] Silverio , but now sees Dr Ledezma US liver 05/17/2021 : cirrhosis, cholelithi asis Get labs Chronic ki dney disease 157859736 N18.9 Dr Low nephrology Neuropathy 711414134 G62 .9 On lyrica 50mg tidDoes well Gastroesop hageal reflux disease without esophagitis 852681765 K21.9 On pantaprozo leDoes wellTake as needed Hyperlipidemia 43574109 E78.5 On atorvastat in 20mg dailyNot on vascepa Get labs Insomnia 678478517 G47.0 0 On ambienDoes well Retinal ar amy occlusion 991449293 H34.9 Seen by [facility] 05/07/18: Dr Coleman, noted to have a Hallenhors t plaque Keep apt wtih Dr Collado who he now sees Anemia 523607108 D64.9 Is on iron Does well Osteonecro sis of head of femur 345174332 M87.[address] Barfield 01/15/2020 , no surgery done Does well Serum brielle min B12 below reference range 345596380 R79.89 Pain in right hand [address] 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 Abnormal g ait due to impairment of balance 382493534 R26.89 Feels that his gait is getting worse, he did have cerebellar surgery 17 years ago and feels that this contribute s to it, will get PT OV 03/20/2023 : Get PT renewed Upper resp iratory infection 58992736 J06.9 Get xray chestGet on z-pack, flonase and claritinDo es not want to do COVID 19 RT PCR or strep or fluER if worse Addendum: 07/04/2023 : Case sent Skin lesion 66182875 L98 .9 Multiple slightly raised dark macules noted on the R>L abd wallRefer to Dr Troy Watson 07/10/2023 , to get skin tag removed 07/31/2023 [id number] Chantell lomeli MD [facility] General Surgery [address] [address] 09/06/2023 11:02:17 09/24/2023 14:37:12 Skin lesion 05472656 L98.9 Right Flank, Right upper leg [id number] Chantell lomeli MD [facility] General Surgery [address] [place] [address] 1 09/25/2023 10:29:06 09/25/2023 10:54:42 [id number] Shay hays MD [facility] Internal Med [facility] [address] [address] 11/15/2023 14:12:12 11/15/2023 14:47:24 Adult health examination 283309701 Z00.00 Screening for disorder 872036713 Z13.9 Liver mass 859058139 R16 .0 Get a referral to oncologist CT A/P 12/27/[address] 01/04/2023 MRI Abd: 01/27/2023 CT 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/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CT A/P 06/29/2023 : Dr Khanh Cassidy 09/27/2023 , be on megace Screening - NAD 22598024 3 Z13.9 C-scope: 10/16/16: Dr Nilda hernandez [...] his understand ing of above Heart murmur 94504335 R0 1.[address] Harris Essential hypertension 73945137 I10 BP much better today 06/05/2022 On ASAOn amlodipine 5mg dailyOn chlorthali done 25mg 1/[address] Low 10/04/2021 On nadolol 20mg daily OK to renew 06/05/2022 Off lasixOff losartan 25mg daily as per Dr Harris 05/30/2022 Get labsHe does see Dr Low Type 2 anish betes mellitus without complication 195295480 E11.9 On trescibaOn Fiasp Sees Dr Dhillon 06/02/2022 next 11/27/[address] Powell podiatryNe eds to see eye MDGet labs from Dr Dhillon 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.[address] Jorge 10/05/21No w sees Dr Jimenez repeat labs Malignant neoplasm of urinary bladder 025449302 C67.9 s/p surgery by Dr Daniels, in 06/[address] Daniels Smoker 67120654 F17.200 Advised to quit LDCT 09/26/2019 CT chest 06/06/2021 : Cirrhosis of the liverLDCT 09/24/2023 4: Dr Garcia AAA: 07/30/2023 Liver enzy mes level above reference range 572108062 R74.[address] Silverio , but now sees Dr Ledezma US liver 05/17/2021 : cirrhosis, cholelithi asisGet labs Chronic ki dney disease 884650201 N18.9 Dr Low nephrology Neuropathy 665722166 G62 .9 On lyrica 50mg tidDoes well Gastroesop hageal reflux disease without esophagitis 637508667 K21.9 On pantaprozo leDoes wellTake as needed Hyperlipidemia 07219648 E78.5 On atorvastat in 20mg dailyNot on vascepa Get labs Insomnia 352666022 G47.0 0 On ambien, renewed 11/15/2023 , [facility] amy occlusion 351335003 H34.9 Seen by [facility] 05/07/18: Dr Coleman, noted to have a Hallenhors t plaque Keep apt wtih Dr Collado who he now sees Anemia 652362612 D64.9 Is on iron Does well Osteonecro sis of head of femur 261437593 M87.[address] Barfield 01/15/2020 , no surgery done Does well Serum brielle min B12 below reference range 915220790 R79.89 Pain in right hand [address] 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 Abnormal g ait due to impairment of balance 918101641 R26.89 Feels that his gait is getting worse, he did have cerebellar surgery 17 years ago and feels that this contribute s to it, will get PT OV 03/20/2023 : Get PT renewed Skin lesion 58974395 L98 .9 Multiple slightly raised dark macules noted on the R>L abd wallRefer to Dr Troy Watson last OV 09/25/2023 [id number] Shay hays MD [facility] Internal Med [facility] [address] [facility], [facility] [address] [place] [address] 03/13/2024 14:23:11 03/13/2024 14:57:52 Liver mass 389780671 R16.0 Get a referral to oncologist CT A/P 12/27/[address] 01/04/2023 MRI Abd: 01/27/2023 CT 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/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CT A/P 06/29/2023 : Dr Khanh Cassidy 09/27/2023 , be on megaceDr Khanh 01/17/2024 Screening - NAD 08339447 3 Z13.9 C-scope: 10/16/16: Dr Nilda hernandez [...] his understand ing of above Heart murmur 82459580 R0 1.[address] Harris Essential hypertension 85576971 I10 BP much better today 06/05/2022 On ASAOn amlodipine 5mg dailyNot on chlorthali done 25mg 1/[address] Low 10/04/2021 On nadolol 20mg daily OK to renew 06/05/2022 Off lasixOff losartan 25mg daily as per Dr Harris 05/30/2022 Get labsHe does see Dr Low Type 2 anish betes mellitus without complication 971795679 E11.9 On trescibaOn Fiasp Sees Dr Dhillon 06/02/2022 next 11/27/[address] Powell podiatryNe eds to see eye MDGet labs from Dr Dhillon Thrombotic thrombocytopenic purpura 95603316 M31.[address] Jorge 10/05/21No w sees Dr Jimenez repeat labs Malignant neoplasm of urinary bladder 925971007 C67.9 s/p surgery by Dr Daniels, in 06/[address] Daniels Smoker 49511577 F17.200 Advised to quit LDCT 09/26/2019 CT chest 06/06/2021 : Cirrhosis of the liverLDCT 09/24/2023 4: Dr Garcia AAA: 07/30/2023 Liver enzy mes level above reference range 644503114 R74.[address] Silverio , but now sees Dr Ledezma US liver 05/17/2021 : cirrhosis, cholelithi asisGet labs Chronic ki dney disease 138684592 N18.9 Dr Low nephrology Neuropathy 668337230 G62 .9 On lyrica 50mg tidDoes well Gastroesop hageal reflux disease without esophagitis 485881146 K21.9 On pantaprozo leDoes wellTake as needed Hyperlipidemia 26477705 E78.5 On atorvastat in 20mg dailyNot on vascepa Get labs Insomnia 741842165 G47.0 0 On ambienDoes well Retinal ar amy occlusion 727200006 H34.9 Seen by [facility] 05/07/18: Dr Coleman, noted to have a Hallenhors t plaque Keep apt wtih Dr Collado who he now sees Anemia 041562881 D64.9 Is on iron Does well Osteonecro sis of head of femur 602678015 M87.[address] Barfield 01/15/2020 , no surgery done Does well Serum brielle min B12 below reference range 135471893 R79.89 Pain in right hand [address] 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 Abnormal g ait due to impairment of balance 698048327 R26.89 Feels that his gait is getting worse, he did have cerebellar surgery 17 years ago and feels that this contribute s to it, will get PT OV 03/20/2023 : Get PT renewed Skin lesion 22695937 L98 .9 Multiple slightly raised dark macules noted on the R>L abd wallRefer to Dr Troy Watson last OV 09/25/2023 [id number] Shay hays MD [facility] Internal Med [address] [facility], [address] [place] [address] 04/08/2024 12:17:56 04/08/2024 13:09:48 Liver mass 441008722 R16.0 Get a referral to oncologist CT A/P 12/27/[address] 01/04/2023 MRI Abd: 01/27/2023 CT 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/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CT A/P 06/29/2023 : Dr Khanh Cassidy 09/27/2023 , be on megaceDr Khanh 01/17/2024 Screening - NAD 74176696 3 Z13.9 C-scope: 10/16/16: Dr Nilda hernandez [...] his understand ing of above Heart murmur 00019779 R0 1.[address] Castelan/p hospital d/c 03/28/2024 , s/p stent, apt with Dr Harris is on 04/10/2024 Essential hypertension 67972259 I10 BP much better today 06/05/2022 Off ASAOff amlodipine 5mg dailyOn plavixOn isosorbide ER 60mg dailyNot on chlorthali done 25mg 1/[address] Low 10/04/2021 On nadolol 20mg daily OK to renew 06/05/2022 Off lasixOff losartan 25mg daily as per Dr Harris 05/30/2022 Get labsHe does see Dr Low Type 2 anish betes mellitus without complication 965180630 E11.9 On trescibaOn FiaspAs per hx 04/08/2024 , his ACCU was 112 today, yesterday was [address] Darya Powell podiatryNe eds to see eye MD Dr Narvaez eye in 05/08/2024 , as per his history 04/08/[address] Dhillon Thrombotic thrombocytopenic purpura 94335241 M31.[address] Jorge 10/05/21No w sees Dr Cassidy on 04/10/2024 Get repeat labs Malignant neoplasm of urinary bladder 458843657 C67.9 s/p surgery by Dr Daniels, in 06/[address] Daniels, next apt in 09/2024On flomax but states that this has not helped, he will make his apt again with urology Smoker 77044480 F17.200 Advised to quit LDCT 09/26/2019 CT chest 06/06/2021 : Cirrhosis of the liverLDCT 09/24/2023 4: Dr Garcia AAA: 07/30/2023 Liver enzy mes level above reference range 957173954 R74.[address] Silverio , but now sees Dr Ledezma US liver 05/17/2021 : cirrhosis, cholelithi asisGet labs Chronic ki dney disease 755786919 N18.9 Dr Low nephrology Neuropathy 229876147 G62 .9 On lyrica 50mg tidDoes well Gastroesop hageal reflux disease without esophagitis 241059207 K21.9 On pantaprozo leDoes wellTake as needed Hyperlipidemia 02100469 E78.5 On atorvastat in 20mg dailyNot on vascepa Get labs Insomnia 580621399 G47.0 0 On ambienDoes well Retinal ar amy occlusion 294377802 H34.9 Seen by [facility] 05/07/18: Dr Coleman, noted to have a Hallenhors t plaque Keep apt wtih Dr Collado who he now sees Anemia 948407567 D64.9 Is on iron Does well Osteonecro sis of head of femur 858616122 M87.[address] Barfield 01/15/2020 , no surgery done Does well Serum brielle min B12 below reference range 102552138 R79.89 Pain in right hand [address] 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 Abnormal g ait due to impairment of balance 774859583 R26.89 Feels that his gait is getting worse, he did have cerebellar surgery 17 years ago and feels that this contribute s to it, will get PT OV 03/20/2023 : Get PT renewed Skin lesion 95272510 L98 .9 Multiple slightly raised dark macules noted on the R>L abd wallRefer to Dr Troy Watson last OV 09/25/2023 Transition of care 90433 09266 105 Z75.8 Health Concerns Section Related Observation [...] GOLD PLUS (MEDICARE REPLACEMENT HMO) Daniel Treviño [id number] Daniel Treviño 09/25/2023 1 [employer] - GOLD PLUS (MEDICARE REPLACEMENT HMO) Daniel Treviño [id number] Daniel Treviño 11/15/2023 1 [employer] - GOLD PLUS (MEDICARE REPLACEMENT HMO) Daniel Treviño [id number] Daniel Treviño 03/13/2024 1 [employer] - GOLD PLUS (MEDICARE REPLACEMENT HMO) Daniel Treviño [id number] Daniel Treviño 04/08/2024 1 [employer] - GOLD PLUS (MEDICARE REPLACEMENT HMO) Daniel Treviño [id number] Daniel Treviño Notes Date Note Type Note Provider Name and Address Organization Details Recorded Time 024 text/ht ml patient here for excision skin lesion so right chest wall and right upper thigh and also destruction neurofibroma mid back Chantell jefferson MD [address] [facility], [facility] [address], [place], [address], [place] - [facility] 09/06/2023 14:18:33 024 text/ht ml No complaints Chantell jefferson MD [address], [address], [place], [address], [place] [facility] 09/25/2023 10:48:49 024 text/ht ml Here to establish carePrior PMD Dr Jones and Marybeth Carolina Hx:CirrhosisBladder cancerDMIIHTNGERDInsomniaReviewed social family and surgical historyHere to discuss above and also wishes to get his tramadol renewed by this office OV 06/07/17:Here for his routine aptHe states that the scow derrick operator gave him the gabapentin and this did [...] labs Shay Hooper MD [address], [facility] [address], [place], [address], [place] [facility] 11/20/2023 15:02:08 025 text/ht ml Here to establish carePrior PMD Dr Jones and Marybeth Carolina Hx:CirrhosisBladder cancerDMIIHTNGERDInsomniaReviewed social family and surgical historyHere to discuss above and also wishes to get his tramadol renewed by this office OV 06/07/17:Here for his routine aptHe states that the scow derrick operator gave him the gabapentin and this did [...] labs with Dr Khanh Hooper MD [address] [facility], [address], [place], [address], [place] [facility] [employer] [facility] 03/26/2024 18:30:33 025 text/ht ml Here to establish carePrior PMD Dr Jones and Marybeth Carolina Hx:CirrhosisBladder cancerDMIIHTNGERDInsomniaReviewed social family and surgical historyHere to discuss above and also wishes to get his tramadol renewed by this office OV 06/07/17:Here for his routine aptHe states that the scow derrick operator gave him the gabapentin and this did [...] did do the labs with Dr Khanh LOWRY 04/08/2024: Here for his post hospital f/u, did have to have stent for CAD and also was told he did have a pneumonia, he states that he is doing much better now Shay Hooper MD [address] [place] [address], [facility] [address], [place], [address], [place] [facility] 04/08/2024 14:04:50
--- OUTSIDE RECORDS SUMMARY | 2024-05-15 02:06 | XMS_ITS | Referral Summary ---
Author Organization [facility] Address [address] [place] [address] Care Team Providers Care Core Java Software Engineer Name Role Phone Krish Hooper MD Primary Care Provide r Jorge Jorge DO Unavailable [phone] Rene Harris MD Unavailable Encounters Date Type Department Care Team Description 04/01/2024 Orders Only [facility] Medical Group Cardiology [address] [place] [address] Nimisha Ryan MD from Last 3 Months Allergies Active [...] on file Legal Sex Male 7:05 PM WEDDING COORDINATOR Gender Identity Not on file Sexual Orientation Not on file Last Filed Vital Signs Vital Sign Reading Time Taken Comments Blood Pressure 130/54 02/13/2024 8:04 AM WEDDING COORDINATOR Pulse 67 02/13/2024 8:04 AM WEDDING COORDINATOR Temperature 36.9 C (98.5 F) 02/13/2024 8:04 AM WEDDING COORDINATOR Respiratory Rate 18 02/13/2024 8:04 AM WEDDING COORDINATOR Oxygen Saturation 99% 02/13/2024 8:04 AM WEDDING COORDINATOR Inhaled Oxygen Concentration - - Weight 83.5 kg (184 lb) 02/12/2024 3:20 PM WEDDING COORDINATOR Height 180.3 cm (5' 11 ) 02/12/2024 3:20 PM WEDDING COORDINATOR Body Mass Index 25.66 02/12/2024 3:20 PM WEDDING COORDINATOR Plan of Treatment Not on file Medical Devices Implanted Type Area Reinforced Ironworker Device Identifier Shelf Expiration Date Model / Serial / Lot [employer] Synergy Xd Monorail 4mm 32mm 144cm Delivery System 1 Access Port [id number] - [id number] Implanted:Qty: 1 on 02/12/2024 by Rene Harris MD at [facility] [employer] 11/28/2024 [id number] / / [id number] Procedures Procedure Name Priority Date/Time Associated Diagnosis Comments CARDIOLOGY DOCUMENT SCAN Routine 03/27/2024 10:46 AM WEDDING COORDINATOR CARDIOLOGY DOCUMENT SCAN Routine 03/26/2024 10:43 AM WEDDING COORDINATOR EGFR Routine 02/13/2024 2:34 AM WEDDING COORDINATOR HEMOGLOBIN A1C Routine 09/18/2017 6:16 AM CDT LIPID PANEL STAT 09/18/2017 6:16 AM CDT from Last 3 Months or Most Recently Relevant to Health Maintenance Results * Cardiology Document Scan (03/27/2024 10:46 AM WEDDING COORDINATOR) Anatomical Region Laterality Modality Other us Shawn Vyas MD [facility] PROCEDURES F inal Result * Cardiology Document Scan (03/26/2024 10:43 AM WEDDING COORDINATOR) Anatomical Region Laterality Modality Other us Nimisha Ryan MD [facility] PRO CEDURES Final Result * (ABNORMAL) eGFR (02/13/2024 2:34 AM WEDDING COORDINATOR) eGFR 57(L) >=60 mL/min/1. 73 m2 Comment: [...] last reviewed 2020. Blood 02/13/2024 2:34 AM WEDDING COORDINATOR 02/13/2024 3:28 AM WEDDING COORDINATOR Rene Harris MD LAB BLOOD ORDERABLES Final Resul t [facility] [address] [place] [address] * (ABNORMAL) Hemoglobin A1c (09/18/2017 6:16 AM CDT) Hgb A1C 7.2(H) 4.0 - 5.6 % [facility] Estimated Average Glucose 160 mg/dL [facility] Comment: The ADA recommends reporting an estimated Average Glucose (eAG) with all Hemoglobin A1c results using the equation derived from a study of 507 normal and diabetic adults. Minority populations were underrepresented and children were not included. (Diabetes Care 31:4747-3488, 2008). The eAG is not equivalent to a fasting glucose. Blood specimen (specimen) 09/18/2017 6:16 AM CDT 09/18/2017 7:44 AM CDT Narrative [facility] - 09/18/2017 8:10 AM CDT Aiden Parker MD LAB BLOOD ORDERABLES Final Result [facility] [address] [facility] [place] [address] * (ABNORMAL) Lipid panel (09/18/2017 6:16 AM CDT) Cholesterol 140 30 - 200 mg/dL [facility] Comment: Interpretive Data Desirable: <200 mg/dL Borderline high: 200-239 mg/dL High: > or = 240 mg/dL Literature Reference: National Cholesterol Education Program (NCEP) Expert Panel on Detection, Evaluation, and Treatment of High Blood Cholesterol in Adults (Adult Treatment Panel III). Circulation 2004; 110:227. Current interpretive data was last revised on 2014. Triglycerides 95 0 - 150 mg/dL [facility] Comment: Interpretive Data Desirable: < 150 mg/dL Borderline High: 150 - 199 mg/dL High: 200 - 499 mg/dL Very High: > or = 499 mg/dL Literature Reference: See Cholesterol Current interpretive data was last revised on 2014. HDL 32(L) >=40 mg/dL [facility] Comment: Interpretive Data Less than 40 mg/dL - low; A major risk factor for heart disease. Greater than or equal to 60 mg/dL - High; considered protective of heart disease. Literature Reference: See Cholesterol Current interpretive data was last revised on 2014. LDL, calculated 89 10 - 129 mg/dL [facility] Comment: Interpretive Data Optimal: < 100 mg/dL Near Optimal: 100 - 129 mg/dL Borderline High: 130 - 159 mg/dL High: 160 - 189 mg/dL Very high: > or = 190 mg/dL Literature Reference: See Cholesterol Current interpretive data was last revised on 2014. Non-HDL Cholesterol 108 mg/dL [facility] Comment: Interpretive Data When triglycerides are >200 mg/dL, non-HDL C is a secondary target of therapy, with a goal 30 mg/dL higher than the identified LDL-C goal. Reference: See Cholesterol Reference. Current interpretive data was last revised 2014. Blood specimen (specimen) 09/18/2017 6:16 AM CDT 09/18/2017 7:42 AM CDT Narrative [facility] - 09/18/2017 6:[address] AIDEN PARKER 09/18/2017 17:13:25 CDT Aiden Parker MD LAB BLOOD ORDERABLES Final Result [facility] [place] [address] from Last 3 Months or Most Recently Relevant to Health Maintenance Insurance [employer] MEDICARE HMO [employer] MEDICARE HMO Advance Directives For more information, please contact: [phone] * Full Code (Latest Code Status on File) Date Activated Date Inactivated Comments 02/12/2024 3:20 PM 02/13/2024 2:36 PM * Full Code Date Activated Date Inactivated Comments 09/18/2017 5:47 AM 09/19/2017 5:05 PM Care Teams Core Java Software Engineer Relationship Specialty Start Date End Date Krish Hooper MD [address] [facility] [address] [place] [address] PCP - General Internal Medicine 12/07/17 Jorge Jorge DO [address] [place] [id number] Medical Oncologist/Local Government Legislator Hematology and Oncology 12/11/18 Rene Harris MD [address] [place] [address] Consulting Physician Cardiology 02/13/24
--- OUTSIDE RECORDS SUMMARY | 2024-05-15 02:06 | XMS_ITS | Clinical Summary ---
Author Organization [facility] Rika Molina Address [address] [place] [address] Care Team Providers Care Mysql Dba Name Role Phone Shay Hooper MD Primary [...] Hematology - [place] [address] [place] [address] Tommy Cassidy MD 05/05/2024 Orders Only [facility] On[facility] Hematology - [place] [address] [place] [phone] Tommy Cassidy MD Benign hypertension 05/02/2024 Telephone [facility] - [place] [address] [place] [phone] Tommy Cassidy MD Surgery Questions 04/21/2024 Refill [facility] - [place] [address] [place] [id number] Amelia Canseco MD 04/21/2024 Orders Only [facility] Hematology - [place] [address] [place] [address] Tommy Cassidy MD Benign hypertension 04/10/2024 9:15 AM SPICE ROOM WORKER Office Visit [facility] H[facility]ology - [place] [address] [place] [id number] Tommy Cassidy MD Hepatocarcinoma (CMS/HCC) (Primary Dx) 04/07/2024 Orders Only [facility] On[facility] Hematology - [place] [address] [place] [address] Tommy Cassidy MD Benign hypertension 03/25/2024 Orders Only [facility] Hematology - [place] [id number] Tommy Cassidy MD 03/24/2024 Telephone [facility] H[facility]ology - [place] [address] [place] [phone] Tommy Cassidy MD Breathing Problem 03/24/2024 Orders Only [facility] - [place] [address] [place] [phone] Tommy Cassidy MD Hepatocarcinoma (CMS/HCC); Benign hypertension 03/21/2024 Orders Only [facility] - [place] [address] [place] [phone] Tommy Cassidy MD 03/20/2024 Orders Only [facility]ology - [place] [address] [place] [phone] Tommy Cassidy MD Need for hepatitis B screening test (Primary Dx) 03/13/2024 9:00 AM SPICE ROOM WORKER Office Visit [facility] Hematology [facility] [address] [place] [phone] Tommy Cassidy MD Hepatocarcinoma (CMS/HCC) (Primary Dx) 03/13/2024 Orders Only [facility] Hematology - [place] [address] [place] [phone] Tommy Cassidy MD 03/10/2024 Orders Only [facility] Hematology - [place] [address] [place] [address] Tommy Cassidy MD Hepatocarcinoma (CMS/HCC); Benign hypertension 02/25/2024 Orders Only [facility] Hematology - [place] [address] [place] [address] Tommy Cassidy MD Hepatocarcinoma (CMS/HCC); [...] Comments Blood Pressure 111/57 04/10/2024 9:23 AM SPICE ROOM WORKER Pulse 70 04/10/2024 9:23 AM SPICE ROOM WORKER Temperature 35.7 C (96.2 F) 04/10/2024 9:23 AM SPICE ROOM WORKER Respiratory Rate 15 04/10/2024 9:23 AM SPICE ROOM WORKER Oxygen Saturation 96% 04/10/2024 9:23 AM SPICE ROOM WORKER Inhaled Oxygen Concentration - - Weight 79.8 kg (176 lb) 04/10/2024 9:23 AM SPICE ROOM WORKER Height 180.3 cm (5' 11 ) 04/09/2023 8:51 AM SPICE ROOM WORKER Body Mass Index 24.55 04/09/2023 8:51 AM SPICE ROOM WORKER Plan of Treatment Upcoming Encounters Date Type Department Care Team (Late st Contact Info) Description 05/30/2024 9:00 AM CDT Office Visit [facility] H[facility]ology [facility] [address] [facility] [address] [place] [address] Tommy Cassidy MD [address] [facility] [address] [place] [address] Health Maintenance Due Date Last [...] Tdap) 02/06/2027 Medical Devices Implanted Type Area Restaurant [employer] Device Identifier Shelf Expiration Date Model / Serial / Lot Stents Bilateral Legs Procedures Procedure Name Priority Date/Time Associated Diagnosis Comments QUANTIFERON TB CONFIRMATION Routine 03/24/2024 11:51 AM SPICE ROOM WORKER COMPREHENSIVE METABOLIC PANEL Routine 03/21/2024 1:12 PM SPICE ROOM WORKER BASIC METABOLIC PANEL Routine 03/21/2024 1:08 PM SPICE ROOM WORKER CBC WITH DIFFERENTIAL Routine 03/21/2024 1:07 PM SPICE ROOM WORKER CBC WITH DIFFERENTIAL Routine 03/13/2024 4:12 PM SPICE ROOM WORKER BASIC METABOLIC PANEL Routine 03/13/2024 4:11 PM SPICE ROOM WORKER from Last 3 Months Results * QUANTIFERON TB CONFIRMATION (03/24/2024 11:51 AM SPICE ROOM WORKER) Blood us Tommy Cassidy MD CHEMISTRY ORDERABLES Final Resu lt * COMPREHENSIVE METABOLIC PANEL (03/21/2024 1:12 PM SPICE ROOM WORKER) Blood us Tommy Cassidy MD CHEMISTRY ORDERABLES Final Resu lt * BASIC METABOLIC PANEL (03/21/2024 1:08 PM SPICE ROOM WORKER) Only the most recent of2 resultswithin the time period is included. Blood us Tommy Cassidy MD CHEMISTRY ORDERABLES Final Resu lt * CBC WITH DIFFERENTIAL (03/21/2024 1:07 PM SPICE ROOM WORKER) Only the most recent of2 resultswithin the time period is included. Blood us Tommy Cassidy MD HEMATOLOGY ORDERABLES Final Res ult from Last 3 Months Insurance [employer] [facility] [employer] [facility] Advance Directives For more information, please contact: [phone] * Full Code (Latest Code Status on File) Date Activated Date Inactivated Comments 04/04/2023 11:13 AM 04/04/2023 6:32 PM Care Teams Mysql Dba Relationship Specialty Start Date End Date Shay Hooper MD PCP - General Internal Medicine 01/01/23
--- NOTE | 2024-05-15 06:10 | WPDHPUPDATE1 ---
History and Physical Update Update Date/Time: 05/15/24 06:10 History and Physical has been reviewed, including an updated exam of the patient. There are NO changes in the patient's condition. Risks, benefits, and alternatives have been discussed and questions answered. Patient agrees to proceed with procedure.
--- NOTE | 2024-05-15 08:48 | P.PNAN_ITS ---
Anes - Initial Pre Proc Eval Procedure: Operation Date: 05/15/24 10:00 Proposed Procedures p Transurethral Resection of Prostate - Edward Daniels MD Date/Time: 05/15/24 08:48 Surgeon: Edward Daniels MD Pre Op Diagnosis: bph Patient Data Age: 69 Gender: M Height: 1.8 m Weight: 78 kg Allergies Allergy/AdvReac Type Severity Reaction Status Date / Time Penicillins Allergy Unknown Unknown Verified 05/01/24 15:31 doxycycline Allergy Rash Verified 05/01/24 15:31 torsemide Allergy Rash Verified 05/01/24 15:31 codeine AdvReac Unknown NAUSEA Verified 05/01/24 15:31 Home Medications ?Medication ?Instructions ?Recorded ?Confirmed ?Type insulin aspart (niacinamide) See Protocol subcut TID 05/23/21 05/01/24 History (U-100) 100 unit/mL subcutaneous solution (Fiasp U-100 Insulin) pantoprazole 40 mg tablet,delayed 40 mg PO Q12H 05/23/21 05/01/24 History release pregabalin 50 mg capsule 50 mg PO Q8H 05/23/21 05/01/24 History zolpidem 10 mg tablet 10 mg PO HS 05/23/21 05/01/24 History acetaminophen 500 mg capsule 500 mg PO BID PRN Pain 03/28/23 05/01/24 History albuterol sulfate 90 mcg/actuation 1 puff inhalation Q4-6H PRN 03/28/23 05/01/24 History aerosol inhaler Shortness Of Breath Or Wheezing metoclopramide HCl 10 mg tablet 10 mg PO Q6H PRN nausea and 07/24/23 05/01/24 Rx (Reglan) vomiting #14 tabs cetirizine 10 mg tablet 10 mg PO DAILY PRN allergies 01/18/24 05/01/24 History ferrous sulfate 325 mg (65 mg 325 mg PO DAILY 01/18/24 05/01/24 History iron) capsule,extended release hydroxyzine HCl 50 mg tablet 50 mg PO Q8H PRN Itching 01/18/24 05/01/24 History magnesium oxide 400 mg (241.3 mg 400 mg PO DAILY 01/18/24 05/01/24 History magnesium) tablet mecobalamin (vitamin B12) 1,000 1,000 mcg PO DAILY 01/18/24 05/01/24 History mcg chewable tablet (B12 Active) nadolol 40 mg tablet 40 mg PO DAILY 01/18/24 05/01/24 History rivaroxaban 20 mg tablet (Xarelto) 20 mg PO DAILY 01/18/24 05/01/24 History atorvastatin 40 mg tablet 40 mg PO DAILY 30 days #30 tabs 01/22/24 05/01/24 Rx clopidogrel 75 mg tablet 75 mg PO QAM 30 days #30 tabs 01/22/24 05/01/24 Rx nitroglycerin 0.4 mg sublingual 0.4 mg sublingual Q5M PRN chest 01/22/24 05/01/24 Rx tablet (Nitrostat) pain #20 tabs furosemide 20 mg tablet (Lasix) 20 mg PO DAILY PRN edema #30 tabs 03/28/24 05/01/24 Rx insulin degludec 100 unit/mL 30 unit (0.3 mL) subcut HS #30 mL 03/28/24 05/01/24 Rx subcutaneous solution (Tresiba U-100 Insulin) Laboratory Tests 05/15/24 08:39 PT Pending INR Pending APTT Pending Patient hx anesthesia problems: none Family hx anesthesia problems: none Results Review: All pre-operative results and documents have been reviewed as part of the pre- operative evaluation. [facility] Past Medical History Medical History Cirrhosis, alcoholic Alcohol abuse, in remission Liver cirrhosis Chronic anticoagulation Bladder cancer Esophageal varices Continuous tobacco abuse COPD (chronic obstructive pulmonary disease) Diabetic peripheral neuropathy Chronic kidney disease TIA (transient ischemic attack) CVA (cerebral vascular accident) With residual right-sided weakness since around 2004 Aortic atherosclerosis Insulin dependent diabetes mellitus Chronic GERD HCC (hepatocellular carcinoma) (12/2022) GERD (gastroesophageal reflux disease) Surgical History Surgical History Port-A-Cath in place (04/02/23) Right subclavian placed by Dr. Aguilar Amputation of left great toe History of colonoscopy History of esophagogastroduodenoscopy Status post cataract extraction of both eyes with insertion of intraocular lens Family History Family History Mother Family history of respiratory disorder Pneumonia cause of Alcohol abuse Father Cerebrovascular accident Sibling Drug overdose at age 39 Sibling at age 43 from health issues related to [place] Social History Social History Social History: He lives with his of 32 years. He has 2 grown daughters. 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 He used to smoke 2 packs of cigarettes per day but has cut down to 1 pack of cigarettes per day for the last year so. He is recovering alcoholic he used to drink at least a 6 pack of beer a day or 1/2 of a 5th of liquor a day but he stopped when he was diagnosed with hepatocellular carcinoma December 2022. Code status: DNR/DNI per patient request but patient does not actually have advanced directives in writing. Surrogate decision maker: Smoking packs per day: 1 Smoking cigarettes per day: 20.0 Years smoked: 55 Smoking pack-years: 55.00 Smoking status: Former smoker Tobacco type: cigarettes Additional smoking assessment comments: TAPERING DOWN TO 1 PACK/DAY CURRENTLY Alcohol intake: former Alcohol use details: QUIT 01/2023, HEAVY DRINKER FOR 30-40 YEARS 6 pack per day or a half of a 5th of liquor a day Substance use: never Other substance usage details: distant history of cocaine/marijuana use Do You Feel Safe in your Home?: Yes Lack of Transportation: No Lack of Food: Never True Current Housing: I Have Housing Concerned About Future Housing: No Difficulty Paying Gas/Electric Bills: No Difficulty Paying for Meds: No Currently Unemployed: No Education: Trade/Vocational Certificate Difficulty w/ Childcare or Family Care: No Living arrangements: with family Additional living arrangements comments: Spiritual care concerns: No Anes - Eval Final PreProcedure Day of Procedure 05/15/24 08:48 Patient weight: normal Heart: regular rate and rhythm Lungs: decreased breath sounds Airway: Mallampati scale class II Neurological: alert and oriented and hemiparesis Last oral intake: >/= 8 hours ASA classification: IV Emergent: no Anesthetic plan: proceed Anesthesia type and monitoring: general LMA and standard monitoring Results Review: All pre-operative results and documents have been reviewed as part of the pre- operative evaluation. Informed Consent: The patient's anesthetic plan and its attendant risks and benefits were discussed with the patient/family/POA. Questions were solicited and answers provided to the satisfaction of the patient/family/POA.
[2024-05-15] MEDS: levoFLOXacin 500 MG/D5W 100 ML 500 MG/100 ML BAG 100 MG IVPB (09:00)
[2024-05-15 09:01] LABS: Glucose Point of Care 180 mg/dl (65-105)
[2024-05-15 09:23] LABS: INR 1.2; Prothrombin Time 15.7 Seconds (11.1-14.7)
[2024-05-15 09:32] LABS: Partial Thromboplastin Time 36.2 Seconds (22.3-36.8)
[2024-05-15] MEDS: ceFAZolin 2 GM/D5W 50 ML 2 GM/50 ML BAG IVPB (09:49)
[2024-05-15] MEDS: LIDOCAINE 2% GEL UROJET 10 ML PKG MUCOUS MEM (10:07)
[2024-05-15] MEDS: LACTATED RINGERS 1,000 ML 30 ML IV CONT (10:39)
--- NOTE | 2024-05-15 10:39 | P.OP_ITS ---
Procedure Note - Detailed Date of Procedure 05/15/24 Pre-op Diagnosis BPH Post-op Diagnosis Same Procedure Performed TURP Surgeon Edward Daniels MD Anesthesia General Description of Procedure The patient was brought to the operative suite where he is prepped and draped in routine sterile fashion while in the dorsal lithotomy position after the uneventful induction of a general LMA anesthetic. A 2F Czech resectoscope sheath was placed into his bladder. He had no urethral strictures. The patient had trilobar hyperplasia with a small median lobe. The bladder itself was endoscopically normal, showing no mucosal hyperemia, intravesical neoplasm or foreign bodies. There was a single, orthotopic ureteral orifice bilaterally. These orifices were identified and preserved throughout the remainder of the procedure. Attention was first turned to resection of the median lobe. This resection was undertaken from the bladder neck to the verumontanum and carried out until the transverse fibers of the bladder neck were identified. The left lateral lobe was then resected starting at the 6 o'clock position, working counter clockwise to the 12 o'clock position. Again, resection was carried out from the bladder neck to the verumontanum until the capsular fibers of the prostate were identified. The right lateral lobe was resected in a similar fashion starting at the 6 o'clock position working clockwise to the 12 o'clock position and carried out until the capsular fibers of the prostate were identified. Apical tissue was then circumferentially resected. All chips were evacuated from the bladder using an [employer] evacuator. Hemostasis was obtained with electric cautery. The ureteral orifices were again inspected and found to be without injury. Estimated blood loss throughout this procedure was 50cc. The patient was taken to recovery room having tolerated this well. Drains No Pathology Yes Complications No immediate complications Condition Stable
[2024-05-15 10:55] LABS: Glucose Point of Care 171 mg/dl (65-105)
[2024-05-15] MEDS: fentaNYL CITRATE INJ (*CRX) 100 MCG/2 ML VIAL 25 MCG IV PUSH ×4 (11:05→11:28)
--- NOTE | 2024-05-15 12:51 | ADMGEN ---
This patient, Daniel Treviño, was admitted to 2 Medical Room 240-01. Patient/family oriented to hospital policies and general routines including ID bracelet, bed and alarms, visiting hours, pain management, procedures, bathroom and other care routines, personal items, smoking policy, room service/diet, and visiting hours. Information on how to activate the Rapid Response Team has been discussed. Patient/Family are encouraged to report perceived risks to care and to ask questions if they do not understand what they are told or what they should do.
[2024-05-15] MEDS: MORPHINE SULFATE (*CRX) 2 MG/ML INJ IV PUSH ×2 (12:55→20:06)
[2024-05-15] MEDS: PREGABALIN (*CRX) 50 MG CAPSULE PO ×2 (13:34→21:36)
[2024-05-15] MEDS: DEXTROSE 5%/LACTATED RINGERS 1,000 ML 125 ML IV CONT (13:34)
[2024-05-15 17:02] LABS: Glucose Point of Care 466 mg/dl (65-105)
[2024-05-15] MEDS: DOCUSATE SODIUM 100 MG CAPSULE PO (17:16)
[2024-05-15] MEDS: ceFAZolin 1 GM/NS 50 ML 1 GM/50 ML BAG IVPB (17:26)
[2024-05-15] MEDS: INSULIN ASPART (*BKC) 100 UNITS/ML SUB-Q ×2 (18:01→20:00)
--- NOTE | 2024-05-15 19:16 | P.CONIM_ITS ---
Assessment and Plan Assessment and plan (1) S/P TURP: Code(s): Z90.79 - Acquired absence of other genital organ(s) Status: Acute Assessment and Plan: - s/p TURP on 05/15 with Frances PATHAK - primary management via urology team - analgesics and antiemetics p.r.n. (2) Insulin dependent diabetes mellitus: Status: Chronic Assessment and Plan: - hypoglycemia protocol - POC blood glucose ACHS - home medication: Hold home sliding scale, continue as hospital protocol. Continue Lantus 30 units HS. - correct regimen ordered - low dose TIDWM, based off BMI - A1C 5.7% on 05/19/2022, update (3) Hypertension: Qualifiers: Hypertension type: unspecified Qualified Code(s): I10 - Essential (primary) hypertension Code(s): I10 - Essential (primary) hypertension Status: Chronic Assessment and Plan: - chronic, currently 147/50 - continue home medications: Nadolol, Lasix - monitor Plan Diet: Clear liquid GI Prophylaxis: Not currently indicated DVT Prophylaxis: SCDs, CLAUDIO Lines: Peripheral Code Status: Full code HPI Date of Consult Consult date: 05/15/24 Requesting Physician: Edward Daniels MD Primary Care Provider: Shay Hooper, Consult Narrative Reason for consult: Diabetes Management Narrative: 69 y/o M presents here for a TURP with PMH of alcohol abuse (in remission), cirrhosis, bladder cancer, soft a NORY varices, COPD, CKD, CVA with residual right-sided weakness, diabetes, GERD, hepatocellular carcinoma. The patient presents here for a TURP with Frances PATHAK due to BPH with LUTS. Postop use reporting soreness. Denies nausea, vomiting, fever, chills. He reports they did change a few of his home medications after he had a heart attack a few months ago, has been tolerating the medications well. He currently reports no other changes to his past medical history or home medications recently. No no other complaints voiced. Preop VS: 97.2? F, HR 75, R 14, 126/48, and 98% on RA. Preop workup: No leukocytosis, hemoglobin 10.7, INR 1.2, creatinine 1.9 and GFR 35. Review of Systems Review of Systems: All systems reviewed & are unremarkable except as noted in HPI and below [facility] Past Medical History Medical History (Updated 05/15/24 @ 19:39 by Melba Johnson APRN) Cirrhosis, alcoholic Alcohol abuse, in remission Liver cirrhosis Chronic anticoagulation Bladder cancer Esophageal varices Continuous tobacco abuse COPD (chronic obstructive pulmonary disease) Diabetic peripheral neuropathy Chronic kidney disease TIA (transient ischemic attack) CVA (cerebral vascular accident) With residual right-sided weakness since around 2004 Aortic atherosclerosis Insulin dependent diabetes mellitus Chronic GERD HCC (hepatocellular carcinoma) (12/2022) GERD (gastroesophageal reflux disease) Surgical History Surgical History (Updated 05/15/24 @ 19:36 by Melba Johnson APRN) History of transurethral resection of prostate Port-A-Cath in place (04/02/23) Right subclavian placed by Dr. Aguilra Amputation of left great toe History of colonoscopy History of esophagogastroduodenoscopy Status post cataract extraction of both eyes with insertion of intraocular lens Family History Family History Mother Family history of respiratory disorder Pneumonia cause of Alcohol abuse Father Cerebrovascular accident Sibling Drug overdose at age 39 Sibling at age 43 from health issues related to [place] Social History Social History Social History: He lives with his of 32 years. He has 2 grown daughters. 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 He used to smoke 2 packs of cigarettes per day but has cut down to 1 pack of cigarettes per day for the last year so. He is recovering alcoholic he used to drink at least a 6 pack of beer a day or 1/2 of a 5th of liquor a day but he stopped when he was diagnosed with hepatocellular carcinoma December 2022. Code status: DNR/DNI per patient request but patient does not actually have advanced directives in writing. Surrogate decision maker: Smoking packs per day: 1 Smoking cigarettes per day: 20.0 Years smoked: 55 Smoking pack-years: 55.00 Smoking status: Former smoker Additional smoking assessment comments: TAPERING DOWN TO 1 PACK/DAY CURRENTLY Alcohol intake: former Alcohol use details: QUIT 01/2023, HEAVY DRINKER FOR 30-40 YEARS 6 pack per day or a half of a 5th of liquor a day Substance use: never Other substance usage details: distant history of cocaine/marijuana use Do You Feel Safe in your Home?: Yes Lack of Transportation: No Lack of Food: Never True Current Housing: I Have Housing Concerned About Future Housing: No Difficulty Paying Gas/Electric Bills: No Difficulty Paying for Meds: No Currently Unemployed: No Education: Trade/Vocational Certificate Difficulty w/ Childcare or Family Care: No Living arrangements: with family Additional living arrangements comments: Spiritual care concerns: No Meds Home Medications and Allergies Home Medications ?Medication ?Instructions ?Recorded ?Confirmed ?Type insulin aspart (niacinamide) See Protocol subcut TID 05/23/21 05/15/24 History (U-100) 100 unit/mL subcutaneous solution (Fiasp U-100 Insulin) pantoprazole 40 mg tablet,delayed 40 mg PO Q12H 05/23/21 05/15/24 History release pregabalin 50 mg capsule 50 mg PO Q8H 05/23/21 05/15/24 History zolpidem 10 mg tablet 10 mg PO HS 05/23/21 05/15/24 History acetaminophen 500 mg capsule 500 mg PO BID PRN Pain 03/28/23 05/15/24 History albuterol sulfate 90 mcg/actuation 1 puff inhalation Q4-6H PRN 03/28/23 05/15/24 History aerosol inhaler Shortness Of Breath Or Wheezing metoclopramide HCl 10 mg tablet 10 mg PO Q6H PRN nausea and 07/24/23 05/01/24 Rx (Reglan) vomiting #14 tabs cetirizine 10 mg tablet 10 mg PO DAILY PRN allergies 01/18/24 05/15/24 History ferrous sulfate 325 mg (65 mg 325 mg PO DAILY 01/18/24 05/15/24 History iron) capsule,extended release hydroxyzine HCl 50 mg tablet 50 mg PO Q8H PRN Itching 01/18/24 05/01/24 History magnesium oxide 400 mg (241.3 mg 400 mg PO DAILY 01/18/24 05/15/24 History magnesium) tablet mecobalamin (vitamin B12) 1,000 1,000 mcg PO DAILY 01/18/24 05/15/24 History mcg chewable tablet (B12 Active) nadolol 40 mg tablet 40 mg PO DAILY 01/18/24 05/15/24 History rivaroxaban 20 mg tablet (Xarelto) 20 mg PO DAILY 01/18/24 05/15/24 History atorvastatin 40 mg tablet 40 mg PO DAILY 30 days #30 tabs 01/22/24 05/15/24 Rx clopidogrel 75 mg tablet 75 mg PO QAM 30 days #30 tabs 01/22/24 05/15/24 Rx nitroglycerin 0.4 mg sublingual 0.4 mg sublingual Q5M PRN chest 01/22/24 05/01/24 Rx tablet (Nitrostat) pain #20 tabs furosemide 20 mg tablet (Lasix) 20 mg PO DAILY PRN edema #30 tabs 03/28/24 05/15/24 Rx insulin degludec 100 unit/mL 30 unit (0.3 mL) subcut HS #30 mL 03/28/24 05/15/24 Rx subcutaneous solution (Tresiba U-100 Insulin) aspirin 81 mg tablet,delayed 81 mg PO DAILY 05/15/24 05/15/24 History release Allergies Allergy/AdvReac Type Severity Reaction Status Date / Time Penicillins Allergy Unknown Unknown Verified 05/15/24 09:41 doxycycline Allergy Rash Verified 05/15/24 09:41 torsemide Allergy Rash Verified 05/15/24 09:41 codeine AdvReac Unknown NAUSEA Verified 05/15/24 09:41 Vital Signs Vital Signs - 24 hr 05/15/24 09:00 05/15/24 10:39 05/15/24 10:55 Temperature 97.2 F L 97.2 F L Pulse Rate 75 64 64 Respiratory Rate 14 13 12 Blood Pressure 126/48 L 135/50 L 139/60 Pulse Oximetry 98 100 100 Oxygen Delivery Room Air Simple Face Mask Simple Face Mask Oxygen Flow Rate 6 6 05/15/24 11:10 05/15/24 11:25 05/15/24 11:40 Temperature Pulse Rate 65 63 65 Respiratory Rate 13 12 12 Blood Pressure 144/59 H 142/60 H 138/59 L Pulse Oximetry 100 99 98 Oxygen Delivery Simple Face Mask Room Air Room Air Oxygen Flow Rate 6 05/15/24 11:55 05/15/24 12:10 05/15/24 12:50 Temperature 97.5 F L Pulse Rate 63 63 65 Respiratory Rate 12 12 13 Blood Pressure 146/66 H 139/62 146/53 H Pulse Oximetry 99 99 100 Oxygen Delivery Room Air Room Air Oxygen Flow Rate 05/15/24 13:05 05/15/24 13:35 05/15/24 13:45 Temperature 97.5 F L 97.6 F Pulse Rate 64 67 Respiratory Rate 13 16 Blood Pressure 148/58 H 141/54 H Pulse Oximetry 99 100 Oxygen Delivery Room Air Oxygen Flow Rate 05/15/24 14:35 Temperature 97.6 F Pulse Rate 65 Respiratory Rate 16 Blood Pressure 147/50 H Pulse Oximetry 100 Oxygen Delivery Oxygen Flow Rate Exam Const: General: comfortable and no acute distress Other: , male, nontoxic appearance HENMT: Face/Nose/Sinus: Normal nares present Mouth: Yes moist mucous membranes Eyes: General: appearance normal, both eyes and all related structures Sclera: sclerae normal Pupils: Equal, round and reactive pupils present EOM: EOMs intact bilaterally Resp: Effort & Inspection: normal respiratory effort Auscultation: clear to auscultation bilaterally Cardio: Rate: regular rate Rhythm: regular rhythm Other: S1-S2 present without murmur, rub, ectopy GI: Other: Stretch abdomen rounded, soft, nondistended. Normoactive bowel sounds in all quadrants. Urinary Catheter: Urinary Catheter: patent and draining (UOP is a pale tea color with small amount of sediment/blood. ) Skin: General skin exam: normal color and no rashes or lesions noted Wounds: no wounds Neuro: Speech: normal speech Motor exam (neuro): 5/5 motor strength present throughout Sensory Exam: normal sensation Other: A&O x4 Extrem: General: normal exam except as noted (Left 1st toe amputation, well healed/old.) Psych: Mental Status: mental status grossly normal Affect: normal affect Other: Good insight judgment, pleasant Quality VTE Prophylaxis VTE prophylaxis: mechanical ordered Hospitalist [facility] Advance Care Plan I have confirmed that the patient's Advanced Care Plan is present, code status is documented, or surrogate decision maker is listed in patient medical record.: Yes Medication Reconciliation I have utilized all available resources to obtain, update and review the patients current medications (includes all prescriptions, OTC, herbals, cannabis, and nutritional supplements).: Yes
[2024-05-15 19:32] LABS: Glucose Point of Care 430 mg/dl (65-105)
[2024-05-15] MEDS: INSULIN GLARGINE (*BKC) 100 UNITS/ML 30 UNITS SUB-Q (20:00)
[2024-05-15] MEDS: PANTOPRAZOLE 40 MG TABLET PO (20:11)
[2024-05-15] MEDS: ZOLPIDEM TARTRATE (*CRX) 5 MG TABLET 10 MG PO (20:11)
[2024-05-15 21:44] LABS: Glucose Point of Care 373 mg/dl (65-105)
[2024-05-16 00:32] VITALS: BP 133/50; PULSE 72; RESP 18; TEMP 36.4; O2SAT 100
[2024-05-16] MEDS: ceFAZolin 1 GM/NS 50 ML 1 GM/50 ML BAG IVPB (02:00)
[2024-05-16] MEDS: HYDROcodone/acetaminophen (*CRX) 5-325 MG TABLET 1 TAB PO ×2 (02:53→10:17)
[2024-05-16 04:04] VITALS: BP 121/52; PULSE 72; RESP 18; TEMP 36.5; O2SAT 98
[2024-05-16] MEDS: MORPHINE SULFATE (*CRX) 2 MG/ML INJ IV PUSH ×2 (05:04→10:53)
[2024-05-16] MEDS: PREGABALIN (*CRX) 50 MG CAPSULE PO ×2 (05:07→13:54)
[2024-05-16 05:14] LABS: Hematocrit 23.6 % (42.0-52.0); Hemoglobin 7.4 g/dL (14.0-18.0)
[2024-05-16 05:26] LABS: Anion Gap 10 mmol/L (4-12); Blood Urea Nitrogen 57 mg/dL (9-20); Calcium 8.6 mg/dL (8.4-10.2); Carbon Dioxide 11 mmol/L (22-30); Chloride 114 mmol/L (98-107); Estimated CRCL calculation 27 ml/min; Estimated Glomerular Filt Rate 25; Glucose 215 mg/dL (65-110); Potassium 5.4 mmol/L (3.4-5.0); Sodium 135 mmol/L (137-145)
--- NOTE | 2024-05-16 06:59 | P.PNUR_ITS ---
Progress Note: A&P Assessment and Plan (1) S/P TURP: Code(s): Z90.79 - Acquired absence of other genital organ(s) Status: Acute Assessment and Plan: * Doing well postop day 1 * Stop CBI now and anticipate trial voiding late morning Subjective Subjective Date/Time Seen: 05/16/24 06:59 Interval history: Comfortable, no complaints Review of Systems Cardiovascular: Cardiovascular: Denies chest pain, Denies lightheadedness, Denies palpitations and Denies dyspnea Respiratory: Respiratory: Denies dyspnea Gastrointestinal: Gastrointestinal: Denies diarrhea, Denies nausea and Denies vomiting Genitourinary: Genitourinary: Denies hematuria and Denies dysuria Endocrine: Endocrine: Denies palpitations Exam Const: General: no acute distress Resp: Effort & Inspection: normal respiratory effort GI: Inspection: non-distended GI Palp: No abdominal tenderness and No Guarding due to palpation present (GI) Auscultation: normal bowel sounds Objective Data Vital Signs Vital Signs: Vital Signs - 24 hr 05/15/24 09:00 05/15/24 10:39 05/15/24 10:55 Temperature 97.2 F L 97.2 F L Pulse Rate 75 64 64 Respiratory Rate 14 13 12 Blood Pressure 126/48 L 135/50 L 139/60 Pulse Oximetry 98 100 100 Oxygen Delivery Room Air Simple Face Mask Simple Face Mask Oxygen Flow Rate 6 6 05/15/24 11:10 05/15/24 11:25 05/15/24 11:40 Temperature Pulse Rate 65 63 65 Respiratory Rate 13 12 12 Blood Pressure 144/59 H 142/60 H 138/59 L Pulse Oximetry 100 99 98 Oxygen Delivery Simple Face Mask Room Air Room Air Oxygen Flow Rate 6 05/15/24 11:55 05/15/24 12:10 05/15/24 12:50 Temperature 97.5 F L Pulse Rate 63 63 65 Respiratory Rate 12 12 13 Blood Pressure 146/66 H 139/62 146/53 H Pulse Oximetry 99 99 100 Oxygen Delivery Room Air Room Air Oxygen Flow Rate 05/15/24 13:05 05/15/24 13:35 05/15/24 13:45 Temperature 97.5 F L 97.6 F Pulse Rate 64 67 Respiratory Rate 13 16 Blood Pressure 148/58 H 141/54 H Pulse Oximetry 99 100 Oxygen Delivery Room Air Oxygen Flow Rate 05/15/24 14:35 05/15/24 21:00 05/16/24 00:32 Temperature 97.6 F 97 F L 97.6 F Pulse Rate 65 72 72 Respiratory Rate 16 18 18 Blood Pressure 147/50 H 155/60 H 133/50 L Pulse Oximetry 100 100 100 Oxygen Delivery Oxygen Flow Rate 05/16/24 04:04 Temperature 97.7 F Pulse Rate 72 Respiratory Rate 18 Blood Pressure 121/52 L Pulse Oximetry 98 Oxygen Delivery Oxygen Flow Rate Intake/Output Intake/Output: Intake & Output 05/13/24 05/14/24 05/15/24 05/16/24 23:59 23:59 23:59 23:59 Intake Total 853.7 350 Output Total 4050 2900 Balance -3196.3 -2550 Meds/Results Medications: Active Medications Generic Name Dose Route Start Last Admin Trade Name Freq PRN Reason Stop Dose Admin Hydrocodone Bitart/Acetaminophen 1 tab 05/15/24 10:47 05/16/24 02:53 Hydrocodone/Acetaminophen (*Crx) 5-325 Mg Tablet PO 1 tab Q4H PRN Administration Pain Rated 1-6 Albuterol 1 puff 05/15/24 12:23 Albuterol Sulfate (*Sp) Aerosol 1 Puff INHALATION Q4-6H PRN Shortness Of Breath Or Wheezing Atorvastatin Calcium 40 mg 05/16/24 09:00 Atorvastatin 40 Mg Tablet PO DAILY [facility] Cephalexin HCl 500 mg 05/16/24 09:00 Cephalexin 500 Mg Capsule PO QID DAVIDA Cyanocobalamin 1,000 mcg 05/16/24 09:00 Cyanocobalamin 1,000 Mcg Tablet PO QAM [facility] Dextrose 12.5 gm 05/15/24 10:49 Dextrose 50% 25 Gm/50 Ml Syringe IV PUSH PRN PRN Hypoglycemia Protocol Docusate Sodium 100 mg 05/15/24 17:00 05/15/24 17:16 Docusate Sodium 100 Mg Capsule PO 100 mg BID DAVIDA Administration Fentanyl Citrate 25 mcg 05/15/24 08:49 05/15/24 11:28 Fentanyl Citrate Inj (*Crx) 100 Mcg/2 Ml Vial IV PUSH 25 mcg Q2M PRN Administration Pain Ferrous Sulfate 325 mg 05/16/24 09:00 Ferrous Sulfate [address] BY MOUTH DAILY [facility] Furosemide 20 mg 05/15/24 12:23 Furosemide 20 Mg Tablet PO DAILY PRN edema Glucagon 1 mg 05/15/24 10:49 Glucagon For Inj 1 Mg Vial IM PRN PRN Hypoglycemia Protocol Glucose 15 gm 05/15/24 10:49 Glucose Oral Gel 15 Gm Of Glucse In 37.5 Gm Tube PO PRN PRN Hypoglycemia Protocol Hyoscyamine 0.125 mg 05/15/24 10:47 Hyoscyamine Sulfate 0.125 Mg Tablet SUBLINGUAL Q6H PRN Bladder Spasm Lactated Ringer's 1,000 mls @ 30 mls/hr 05/15/24 08:50 05/15/24 10:39 Lr - Lactated Ringers Iv IV CONT 30 mls/hr .Q24H DAVIDA Administration Lactated Ringer's 1,000 mls @ 30 mls/hr 05/15/24 08:50 05/15/24 12:57 Lr - Lactated Ringers Iv IV CONT Not Given .Q24H DAVIDA Dextrose 1,000 mls @ 100 mls/hr 05/15/24 10:49 Dextrose 5% 1,000 Ml IVPB PRN PRN Hypoglycemia Protocol Insulin Aspart 2 - 5 units 05/15/24 12:00 05/15/24 18:01 Insulin Aspart (*Bkc) 100 Units/Ml SUB-Q 5 units TIDWM DAVIDA Administration Protocol Insulin Glargine 30 units 05/15/24 21:00 05/15/24 20:00 Insulin Glargine (*Bkc) 100 Units/Ml SUB-Q 30 units HS DAVIDA Administration Loratadine 10 mg 05/15/24 12:29 Loratadine 10 Mg Tablet PO QAM PRN allergies Magnesium Oxide 400 mg 05/16/24 09:00 Magnesium Oxide 400 Mg Tablet PO DAILY DAVIDA Metoclopramide HCl 10 mg 05/15/24 12:23 Metoclopramide Hcl 10 Mg Tablet PO Q6H PRN nausea and vomiting Morphine Sulfate 2 mg 05/15/24 10:47 05/16/24 05:04 Morphine Sulfate (*Crx) 2 Mg/Ml Inj IV PUSH 2 mg Q2H PRN Administration Pain Rated 7-10 Nadolol 40 mg 05/16/24 09:00 Nadolol 20 Mg Tablet PO DAILY [facility] Naloxone HCl 0.1 mg 05/15/24 10:47 Naloxone Hcl 0.4 Mg/Ml Vial IV PUSH Q2M PRN Opiate Reversal Nitroglycerin 0.4 mg 05/15/24 12:23 Nitroglycerin Sl 0.4 Mg Tablet SUBLINGUAL Q5M PRN chest pain Ondansetron HCl 4 mg 05/15/24 08:49 Ondansetron Inj 4 Mg/2 Ml Vial IV PUSH ONCE PRN Nausea Pantoprazole Sodium 40 mg 05/15/24 21:00 05/15/24 20:11 Pantoprazole 40 Mg Tablet PO 40 mg Q12HR DAVIDA Administration Pregabalin 50 mg 05/15/24 14:00 05/16/24 05:07 Pregabalin (*Crx) 50 Mg Capsule PO 50 mg Q8HR DAVIDA Administration Zolpidem Tartrate 10 mg 05/15/24 21:00 05/15/24 20:11 Zolpidem Tartrate (*Crx) 5 Mg Tablet PO 10 mg HS DAVIDA Administration Labs Labs: Laboratory Results - last 24 hr 05/15/24 05/15/24 05/15/24 08:54 08:59 10:50 Hgb Hct PT 15.7 H D INR 1.2 APTT 36.2 Sodium Potassium Chloride Carbon Dioxide Anion Gap BUN Creatinine Estim Creat Clear Calc Estimated GFR Glucose POC Capillary Glucose 180 H 171 H Calcium 05/15/24 05/15/24 05/15/24 16:57 19:29 21:28 Hgb Hct PT INR APTT Sodium Potassium Chloride Carbon Dioxide Anion Gap BUN Creatinine Estim Creat Clear Calc Estimated GFR Glucose POC Capillary Glucose 466 H 430 H 373 H Calcium 05/16/24 04:13 Hgb 7.4 L D Hct 23.6 L PT INR APTT Sodium 135 L Potassium 5.4 H Chloride 114 H Carbon Dioxide 11 L Anion Gap 10 BUN 57 H D Creatinine 2.53 H Estim Creat Clear Calc 27 Estimated GFR 25 L Glucose 215 H POC Capillary Glucose Calcium 8.6
--- NOTE | 2024-05-16 07:30 | PM.IMPN ---
Progress Note: A&P Assessment and Plan (1) S/P TURP: Code(s): Z90.79 - Acquired absence of other genital organ(s) Status: Acute Assessment and Plan: - s/p TURP on 05/15 with Frances PATHAK - primary management via urology team - analgesics and antiemetics p.r.n. - CBI stopped and catheter removed by urology (2) Insulin dependent diabetes mellitus: Status: Chronic Assessment and Plan: - hypoglycemia protocol - POC blood glucose ACHS - home medication: Hold home sliding scale, continue as hospital protocol. Continue Lantus 30 units HS. - correct regimen ordered - low dose TIDWM, based off BMI - A1C 5.9 (3) Anemia: Code(s): D64.9 - Anemia, unspecified Status: Acute Assessment and Plan: H/H 7.4/23.6 on am labs. Possibly dilutional as patient had been receiving fluids however given recent procedure will repeat blood draw. - Repeat H/H 8.5/25.8 Time Spent With Patient Time with patient: 25 - 35 minutes Subjective Date/time seen: 05/16/24 07:30 Interval history: 69 y/o M presents here for a TURP with PMH of alcohol abuse (in remission), cirrhosis, bladder cancer, soft a NORY varices, COPD, CKD, CVA with residual right-sided weakness, diabetes, GERD, hepatocellular carcinoma. Patient is pleasant lying comfortably in bed. He does endorse slight tenderness to his lower abdomen. He has no other complaints at this time denying chest pain, shortness a bed, palpitations, nausea/vomiting. Review of Systems Review of Systems: All systems reviewed & are unremarkable except as noted in HPI and below Exam Narrative: AF HR 71 RR 18 SpO2 100 BP 152/69 General: male in no acute respiratory distress who is nontoxic appearing, lying semi recumbent in bed. HEENT: Normocephalic. Atraumatic. Extraocular movement intact. Sclera clear and anicteric. No facial asymmetry. Chest: Lungs are clear to auscultation bilaterally. No wheezes or crackles. CV: Heart was regular rate and rhythm. Abd: Abdomen was soft. Nontender. Nondistended. Positive bowel sounds. Ext: No clubbing, cyanosis, or edema. DP pulses bilaterally. Neuro: Patient is alert and oriented. Speech is clear. Objective Data Vital Signs Vital Signs: Vital Signs - 24 hr 05/15/24 09:00 05/15/24 10:39 05/15/24 10:55 Temperature 97.2 F L 97.2 F L Pulse Rate 75 64 64 Respiratory Rate 14 13 12 Blood Pressure 126/48 L 135/50 L 139/60 Pulse Oximetry 98 100 100 Oxygen Delivery Room Air Simple Face Mask Simple Face Mask Oxygen Flow Rate 6 6 05/15/24 11:10 05/15/24 11:25 05/15/24 11:40 Temperature Pulse Rate 65 63 65 Respiratory Rate 13 12 12 Blood Pressure 144/59 H 142/60 H 138/59 L Pulse Oximetry 100 99 98 Oxygen Delivery Simple Face Mask Room Air Room Air Oxygen Flow Rate 6 05/15/24 11:55 05/15/24 12:10 05/15/24 12:50 Temperature 97.5 F L Pulse Rate 63 63 65 Respiratory Rate 12 12 13 Blood Pressure 146/66 H 139/62 146/53 H Pulse Oximetry 99 99 100 Oxygen Delivery Room Air Room Air Oxygen Flow Rate 05/15/24 13:05 05/15/24 13:35 05/15/24 13:45 Temperature 97.5 F L 97.6 F Pulse Rate 64 67 Respiratory Rate 13 16 Blood Pressure 148/58 H 141/54 H Pulse Oximetry 99 100 Oxygen Delivery Room Air Oxygen Flow Rate 05/15/24 14:35 05/15/24 21:00 05/16/24 00:32 Temperature 97.6 F 97 F L 97.6 F Pulse Rate 65 72 72 Respiratory Rate 16 18 18 Blood Pressure 147/50 H 155/60 H 133/50 L Pulse Oximetry 100 100 100 Oxygen Delivery Oxygen Flow Rate 05/16/24 04:04 Temperature 97.7 F Pulse Rate 72 Respiratory Rate 18 Blood Pressure 121/52 L Pulse Oximetry 98 Oxygen Delivery Oxygen Flow Rate Intake/Output Intake/Output: Intake & Output 05/13/24 05/14/24 05/15/24 05/16/24 23:59 23:59 23:59 23:59 Intake Total 853.7 350 Output Total 4050 2900 Balance -3196.3 -2550 Meds/Results Medications: Active Medications Generic Name Dose Route Start Last Admin Trade Name Freq PRN Reason Stop Dose Admin Hydrocodone Bitart/Acetaminophen 1 tab 05/15/24 10:47 05/16/24 02:53 Hydrocodone/Acetaminophen (*Crx) 5-325 Mg Tablet PO 1 tab Q4H PRN Administration Pain Rated 1-6 Albuterol 1 puff 05/15/24 12:23 Albuterol Sulfate (*Sp) Aerosol 1 Puff INHALATION Q4-6H PRN Shortness Of Breath Or Wheezing Atorvastatin Calcium 40 mg 05/16/24 09:00 Atorvastatin 40 Mg Tablet PO DAILY DAVIDA Cephalexin HCl 500 mg 05/16/24 09:00 Cephalexin 500 Mg Capsule PO QID DAVIDA Cyanocobalamin 1,000 mcg 05/16/24 09:00 Cyanocobalamin 1,000 Mcg Tablet PO QAM DAVIDA Dextrose 12.5 gm 05/15/24 10:49 Dextrose 50% 25 Gm/50 Ml Syringe IV PUSH PRN PRN Hypoglycemia Protocol Docusate Sodium 100 mg 05/15/24 17:00 05/15/24 17:16 Docusate Sodium 100 Mg Capsule PO 100 mg BID DAVIDA Administration Fentanyl Citrate 25 mcg 05/15/24 08:49 05/15/24 11:28 Fentanyl Citrate Inj (*Crx) 100 Mcg/2 Ml Vial IV PUSH 25 mcg Q2M PRN Administration Pain Ferrous Sulfate 325 mg 05/16/24 09:00 Ferrous Sulfate [address] BY MOUTH DAILY DAVIDA Furosemide 20 mg 05/15/24 12:23 Furosemide 20 Mg Tablet PO DAILY PRN edema Glucagon 1 mg 05/15/24 10:49 Glucagon For Inj 1 Mg Vial IM PRN PRN Hypoglycemia Protocol Glucose 15 gm 05/15/24 10:49 Glucose Oral Gel 15 Gm Of Glucse In 37.5 Gm Tube PO PRN PRN Hypoglycemia Protocol Hyoscyamine 0.125 mg 05/15/24 10:47 Hyoscyamine Sulfate 0.125 Mg Tablet SUBLINGUAL Q6H PRN Bladder Spasm Lactated Ringer's 1,000 mls @ 30 mls/hr 05/15/24 08:50 05/15/24 10:39 Lr - Lactated Ringers Iv IV CONT 30 mls/hr .Q24H DAVIDA Administration Lactated Ringer's 1,000 mls @ 30 mls/hr 05/15/24 08:50 05/15/24 12:57 Lr - Lactated Ringers Iv IV CONT Not Given .Q24H DAVIDA Dextrose 1,000 mls @ 100 mls/hr 05/15/24 10:49 Dextrose 5% 1,000 Ml IVPB PRN PRN Hypoglycemia Protocol Insulin Aspart 2 - 5 units 05/15/24 12:00 05/15/24 18:01 Insulin Aspart (*Bkc) 100 Units/Ml SUB-Q 5 units TIDWM DAVIDA Administration Protocol Insulin Glargine 30 units 05/15/24 21:00 05/15/24 20:00 Insulin Glargine (*Bkc) 100 Units/Ml SUB-Q 30 units HS [facility] Administration Loratadine 10 mg 05/15/24 12:29 Loratadine 10 Mg Tablet PO QAM PRN allergies Magnesium Oxide 400 mg 05/16/24 09:00 Magnesium Oxide 400 Mg Tablet PO DAILY [facility] Metoclopramide HCl 10 mg 05/15/24 12:23 Metoclopramide Hcl 10 Mg Tablet PO Q6H PRN nausea and vomiting Morphine Sulfate 2 mg 05/15/24 10:47 05/16/24 05:04 Morphine Sulfate (*Crx) 2 Mg/Ml Inj IV PUSH 2 mg Q2H PRN Administration Pain Rated 7-10 Nadolol 40 mg 05/16/24 09:00 Nadolol 20 Mg Tablet PO DAILY [facility] Naloxone HCl 0.1 mg 05/15/24 10:47 Naloxone Hcl 0.4 Mg/Ml Vial IV PUSH Q2M PRN Opiate Reversal Nitroglycerin 0.4 mg 05/15/24 12:23 Nitroglycerin Sl 0.4 Mg Tablet SUBLINGUAL Q5M PRN chest pain Ondansetron HCl 4 mg 05/15/24 08:49 Ondansetron Inj 4 Mg/2 Ml Vial IV PUSH ONCE PRN Nausea Pantoprazole Sodium 40 mg 05/15/24 21:00 05/15/24 20:11 Pantoprazole 40 Mg Tablet PO 40 mg Q12HR [facility] Administration Pregabalin 50 mg 05/15/24 14:00 05/16/24 05:07 Pregabalin (*Crx) 50 Mg Capsule PO 50 mg Q8HR [facility] Administration Zolpidem Tartrate 10 mg 05/15/24 21:00 05/15/24 20:11 Zolpidem Tartrate (*Crx) 5 Mg Tablet PO 10 mg HS [facility] Administration Labs Labs: Laboratory Results - last 24 hr 05/15/24 05/15/24 05/15/24 08:54 08:59 10:50 Hgb Hct PT 15.7 H D INR 1.2 APTT 36.2 Sodium Potassium Chloride Carbon Dioxide Anion Gap BUN Creatinine Estim Creat Clear Calc Estimated GFR Glucose POC Capillary Glucose 180 H 171 H Calcium 05/15/24 05/15/24 05/15/24 16:57 19:29 21:28 Hgb Hct PT INR APTT Sodium Potassium Chloride Carbon Dioxide Anion Gap BUN Creatinine Estim Creat Clear Calc Estimated GFR Glucose POC Capillary Glucose 466 H 430 H 373 H Calcium 05/16/24 04:13 Hgb 7.4 L D Hct 23.6 L PT INR APTT Sodium 135 L Potassium 5.4 H Chloride 114 H Carbon Dioxide 11 L Anion Gap 10 BUN 57 H D Creatinine 2.53 H Estim Creat Clear Calc 27 Estimated GFR 25 L Glucose 215 H POC Capillary Glucose Calcium 8.6 Quality VTE Prophylaxis VTE prophylaxis: mechanical ordered
[2024-05-16 08:02] LABS: Hemoglobin A1C 5.9 % (<5.7)
[2024-05-16 08:23] LABS: Glucose Point of Care 190 mg/dl (65-105)
[2024-05-16 08:29] VITALS: BP 128/45; PULSE 72; RESP 18; TEMP 36.6; O2SAT 100
[2024-05-16 08:32] VITALS: PULSE 80
[2024-05-16] MEDS: CEPHALEXIN 500 MG CAPSULE PO ×2 (08:32→12:24)
[2024-05-16] MEDS: MAGNESIUM OXIDE 400 MG TABLET PO (08:32)
[2024-05-16] MEDS: FERROUS SULFATE 325 MG TABLET DR BY MOUTH (08:32)
[2024-05-16] MEDS: nadoloL 20 MG TABLET 40 MG PO (08:32)
[2024-05-16] MEDS: PANTOPRAZOLE 40 MG TABLET PO (08:32)
[2024-05-16] MEDS: DOCUSATE SODIUM 100 MG CAPSULE PO (08:33)
[2024-05-16] MEDS: CYANOCOBALAMIN 1,000 MCG TABLET 1000 MCG PO (08:33)
[2024-05-16] MEDS: ATORVASTATIN 40 MG TABLET PO (08:33)
[2024-05-16 11:51] VITALS: BP 152/69; PULSE 71; RESP 18; TEMP 36.8; O2SAT 100
[2024-05-16 11:51] LABS: Glucose Point of Care 249 mg/dl (65-105)
[2024-05-16] MEDS: INSULIN ASPART (*BKC) 100 UNITS/ML SUB-Q (12:19)
[2024-05-16] MEDS: HYOSCYAMINE SULFATE 0.125 MG TABLET SUBLINGUAL (12:24)
[2024-05-16 15:39] LABS: Hematocrit 25.8 % (42.0-52.0); Hemoglobin 8.5 g/dL (14.0-18.0)
== END 2024-05-16 15:57 | disposition home or self-care (01) ==
LOC: ANHSURGERY 08:07 → ANH2MED 12:33
PROVIDERS: Anesthesiology; Student in an Organized Health Care Education/Training Program; PCP Internal Medicine; Visit Provider Urology
PROC: 0VT08ZZ Resection of Prostate, Via Natural or Artificial Opening Endoscopic (ICD-10-PCS; CPT 52601; principal; 2024-05-15 10:00)
DX: N40.1 Benign prostatic hyperplasia with lower urinary tract symptoms (principal); R35.0 Frequency of micturition; R35.1 Nocturia; R39.12 Poor urinary stream; R39.15 Urgency of urination; N41.1 Chronic prostatitis; N34.2 Other urethritis; D64.9 Anemia, unspecified; I12.9 Hypertensive chronic kidney disease with stage 1 through stage 4 chronic kidney disease, or unspecified chronic kidney disease; E11.22 Type 2 diabetes mellitus with diabetic chronic kidney disease; N18.9 Chronic kidney disease, unspecified; I69.351 Hemiplegia and hemiparesis following cerebral infarction affecting right dominant side; K74.60 Unspecified cirrhosis of liver; J44.9 Chronic obstructive pulmonary disease, unspecified; Z79.4 Long term (current) use of insulin; F17.210 Nicotine dependence, cigarettes, uncomplicated; Z85.51 Personal history of malignant neoplasm of bladder; Z85.05 Personal history of malignant neoplasm of liver
CPT/HCPCS: 52601; 36415; 80048; 82948; 83036; 85014; 85018; 85610; 85730; 88305; A9270; C1757; J0690; J1100; J1815; J1956; J2270; J2405; J2704; J3010; J7120; J7121

== ENCOUNTER 2024-05-18 11:55 | Emergency (ER) | payer MEDICARE, SELFPAY ==
--- OUTSIDE RECORDS SUMMARY | 2024-05-18 11:58 | XMS_ITS | Data Portability ---
Author Organization [place] [facility] [employer], Main Office Address [address] [place] [address] Care Team Providers Care Flakeboard Line Tender Name Role Phone FLETCHER ALFREDO Logistics Manager NETO HARRIS Warp Hauler SHAY HOOPER Primary Care Provider ROSA MARIA CASSIDY Hematology/Oncology [phone] CHANTELL KEARNS General Surgeon [phone] EMILIANO LOW Snag Grinder Assessment Encounter Date Assessment Date Assessment LastModified by Organization Details LastModified Time 09/06/2023 09/06/2023 Procedure performed and dictated. No complications. He will follow up in 10 days. [email or web address] Not available 09/06/2023 11:55:22 09/25/2023 09/25/2023 status [...] BUN 23, Cr 1.50, GFR 47 Lipids: [facility] TSH/FT4: WNL VIT D [facility] 04/26/2022: PSA 1.0 09/13/2022: A1C [...] BUN 21, Cr 1.40, GFR 51 TSH: [facility] LIPIDS: [facility] A1C 5.7 04/25/2022: CMP: BUN 23, Cr 1.50, GFR 47 Lipids: [facility] TSH/FT4: WNL VIT D [facility] 09/13/2022: A1C 5.9 MCV 97.4, PLT 116 Gluc 123, BUN 23, Cr 1.48, GFR 47 Urine micro alb 26.7 04/25/2022: CMP: BUN 23, Cr 1.50, GFR 47 Lipids: [facility] TSH/FT4: WNL VIT D [facility] 04/26/2022: PSA 1.0 09/13/2022: A1C [...] Lab CBC w/ auto diff 2024 025 [facility] (Lab), [address] [place], [address], 04/10/2024 13:14:18 CMP, serum or plasma 2024 025 [facility] (Lab), [address] [place], [address], 04/10/2024 13:14:17 lipid panel, serum [address] (Lab), [address] [place], [address], 04/09/2024 10:46:09 TSH, serum or plasma [address] (Lab), [address] [place], [address], 04/09/2024 10:46:09 T4, free, serum [address] (Lab), [address] [place], [address], 04/09/2024 10:46:09 microalbu min, urine [address] (Lab), [address] [place], [address], 04/09/2024 10:46:08 HbA1c (hemoglob in A1c), blood 2024 025 [facility] (Lab), [address] [place], [address], 05/16/2024 11:34:22 vitamin B12 + folate, serum or blood [address] (Lab), [address] [place], [address], 04/09/2024 10:46:09 CBC w/ auto diff 2024 025 [facility] (Lab), [address] [place], [address], 03/21/2024 14:42:13 CMP, serum or plasma 2024 025 [facility] (Lab), [address] [place], [address], 03/13/2024 16:53:29 lipid panel, serum 2024 025 [facility] (Lab), [address] [place], [address], 03/13/2024 17:40:45 TSH, serum or plasma 2024 025 [facility] (Lab), [address] [place], [address], 03/13/2024 17:40:45 T4, free, serum 2024 025 [facility] (Lab), [address] [place], [address], 03/13/2024 17:40:45 microalbu min, urine 2024 025 [facility] (Lab), [address] [place], [address], 03/13/2024 17:40:45 HbA1c (hemoglob in A1c), blood 2024 025 [facility] (Lab), [address] [place], [address], 03/13/2024 17:40:45 vitamin B12 + folate, serum or blood 2024 025 [facility] (Lab), [address] [place], [address], 03/13/2024 17:40:45 CBC w/ auto diff 2023 024 [facility] (Lab), [address] [place], [address], 12/20/2023 15:49:47 CMP, serum or plasma 2023 024 [facility] (Lab), [address] [place], [address], 12/20/2023 15:49:47 lipid panel, serum 2023 024 [facility] (Lab), [address] [place], [address], 05/17/2024 04:03:07 TSH, serum or plasma 2023 024 [facility] (Lab), [address] [place], [address], 05/17/2024 04:03:07 T4, free, serum 2023 024 [facility] (Lab), [address] [place], [address], 05/17/2024 04:03:08 microalbu min, urine 2023 024 [facility] (Lab), [address] [place], [address], 05/17/2024 04:03:07 HbA1c (hemoglob in A1c), blood 2023 024 [facility] (Lab), [address] [place], [address], 05/17/2024 04:03:07 vitamin B12 + folate, serum or blood 2023 024 [facility] (Lab), [address] [place], [address], 05/17/2024 04:03:08 Referral nephrolog ist referral - Please call patient to schedule an appointme nt. Thank you. 2024 025 [place], [address], [place], [address], 04/29/2024 15:01:18 podiatris t referral - Please call patient to schedule an appointme nt. Thank you. 2024 025 BRENDA López Powell DPM, [address] [facility], [address], [place], [address], 04/29/2024 14:31:43 endocrino logy referral - Please call patient to schedule an appointme nt. Thank you. 2024 025 [facility] [place], [address] , [place], [address], 04/29/2024 19:11:28 physical therapist referral - Please call patient to schedule an appointme nt. Thank you. 2024 025 [facility], [address], [place], [address], 04/29/2024 14:37:17 nephrolog ist referral 2024 025 [email or web address] [place], [address] [address], [place], [address], 03/17/2024 09:19:19 podiatris t referral - Please call patient to schedule. 2024 025 [email or web address] López Powell DPM, [address] [facility], [address], [place], [address], 03/17/2024 09:19:54 cardiolog ist referral 2024 025 [email or web address] [place], [address] [address], [address], [place], [address], 03/17/2024 09:13:42 physical therapist referral - Please call patient to schedule 2024 025 [email or web address] [facility], [address], [place], [address], 04/29/2024 14:15:13 nephrolog ist referral 2023 024 [email or web address] [place], [address], [address], [place], [address], 11/15/2023 17:05:44 podiatris t referral - Please call patient to schedule. 2023 024 [email or web address] López TOUREM, [address], [address], [place], [address], 12/20/2023 09:07:21 cardiolog ist referral 2023 024 [email or web address] [place], [address], [address], [place], [address], 11/20/2023 17:20:49 physical therapist referral - Please call patient to schedule 2023 024 [facility], [address], [place], [address], 03/17/2024 09:16:43 Procedures upper endoscopy procedure (EGD) (PROC) - Please call patient to schedule an appointme nt. Thank you. 2024 025 [email or web address] Madiha Mays MD, [address], [address], [place], [address], 04/29/2024 13:33:49 upper endoscopy procedure (EGD) (PROC) - Please call patient to schedule. 2024 025 [email or web address] Madiha Mays MD, [address], [address], [place], [address], 04/29/2024 14:16:03 upper endoscopy procedure (EGD) (PROC) - Please call patient to schedule. 2023 024 [email or web address] Madiha Mays MD, [address] [facility] [address], [place], [address], 12/20/2023 09:07:01 Surgeries None recorded. Imaging None recorded. Medication Orders zolpidem 10 mg tablet 2024 025 [id number], [address], [place], [address], 04/08/2024 13:07:52 zolpidem 10 mg tablet [address]23 [address] [facility] [address] [facility], [address] [place] [address], [place], [address], 11/15/2023 14:47:06 zolpidem 10 mg tablet 2023 024 [id number], [address], [place], [address], 11/15/2023 14:48:18 Patient TargetsNo targets recorded. Patient Instructions Encounter Date Encounter Id Patient Instructions Last Modified By Organization Details Last Modified Time 11/15/2023 [id number] dementia rating scale-2* Not available 11/15/2023 14:46:57 alcohol misuse* Not availa ble 11/15/2023 14:46:56 depression screening* Not available 11/15/2023 14:46:55 multi-dimensiona l health assessment questionnaire* Not available 11/15/2023 14:46:56 advance care planning: care instructions Not available 11/15/2023 14:46:50 advance directiv es: care instructions Not available 11/15/2023 14:46:50 [place] Advance Directives Not available 11/15/2023 14:46:50 Personalized [...] I have no recommendations Depression Screening: Negative [email or web address] Not available 11/14/2023 16:48:23 04/08/2024 [id number] Thank you for yo ur visit to [...] homebound status}} Required Home Health Services: {{none group home, physical therapy, occupational therapy group home, physical therapy group home}} Durable Medical Equipment needed: {{cane walker walke r with seat manual wheelchair bedside commode oxygen}} Billing Guidelines CPT code 00735- Transitional Care Management services with moderate medical decision complexity (jdem-wy-ihsw visit within 14 days of discharge). CPT code 19912- Transitional Care Management services with high medical decision complexity (iyrr-uw-blut visit within 7 days of discharge). carlos Not available 04/08/2024 12:19:47 Reason for Referral Snag Grinder Referral for Ch ronic kidney disease Referring Physician: Shay Hooper Internal Medicine, Encounter Date: 11/15/2023 Cone Treater Referral for Type 2 diabetes mellitus without complication Please call patient to schedule. Referring Physician: Radha Brunson, Encounter Date: 11/15/2023 Physical Therapist Referral for Abnormal gait due to impairment of balance Please call patient to schedule Referring Physician: Radha Brunson, Encounter Date: 11/15/2023 Warp Hauler Referral for He art murmur Referring Physician: Radha Brunson, Encounter Date: 11/15/2023 Snag Grinder Referral for Ch ronic kidney disease Referring Physician: Radha Brunson, Encounter Date: 03/13/2024 Cone Treater Referral for Type 2 diabetes mellitus without complication Please call patient to schedule. Referring Physician: Radha Brunson, Encounter Date: 03/13/2024 Physical Therapist Referral for Abnormal gait due to impairment of balance Please call patient to schedule Referring Physician: Radha Brunson, Encounter Date: 03/13/2024 Warp Hauler Referral for He art murmur Referring Physician: Radha Brunson, Encounter Date: 03/13/2024 Snag Grinder Referral for Ch ronic kidney disease Please call patient to schedule an appointment. Thank you. Referring Physician: Shay Hooper Internal Medicine, Encounter Date: 04/08/2024 Cone Treater Referral for Type 2 diabetes mellitus without [...] Shay Hooper Internal Medicine, Encounter Date: 04/08/2024 Results Created Date Observation Date Name Description Value Unit Range Abnormal Flag Note LastModifiedBy Organization Detail LastModifiedTime 09/21/19 24 09/20/2023 CT, abdom en, w/ contr ast No observ ation record ed. [place] [address], [place], [address], 01/03/2024 09:22:04 09/24/19 24 09/24/2023 LDCT, chest , for lung cance r scree hemal No observ ation record ed. [address] [place], [address], 09/24/2023 14:39:55 09/24/19 24 09/24/2023 LDCT, chest , for lung cance r scree hemal No observ ation record ed. [address] ([employer]) [address] [place], [address], 01/03/2024 09:22:24 11/19/19 24 11/16/2023 trans -thor acic echoc ardio gram (TTE) (PROC ) No observ ation record ed. justice7 [facility] [address], [place], [address], 11/19/2023 12:20:42 11/19/19 24 11/16/2023 imagi ng/di agnos tic resul t No observ ation record ed. [address] [facility] [address], [place], [address], 01/07/2024 10:26:58 12/24/19 24 12/24/2023 CT, abdom en, w/ contr ast No observ ation record ed. [place] [address], [place], [address], 01/10/2024 10:01:50 01/18/20 24 01/18/2024 XR, chest No observ ation record ed. [address] [address], [place], [address], 05/01/2024 14:01:46 01/18/20 24 01/18/2024 imagi ng/di agnos tic resul t No observ ation record ed. [address] [address], [place], [address], 05/01/2024 14:04:53 01/19/20 24 01/19/2024 imagi ng/di agnos tic resul t No observ ation record ed. [address] [address], [place], [address], 05/01/2024 14:05:40 03/24/19 25 03/24/2024 XR, chest No observ ation record ed. [place] [address], [place], [address], 05/05/2024 11:08:49 03/24/19 25 03/24/2024 CT, angio gram, chest + abdom en + pelvi s, w/wo contr ast No observ ation record ed. [place] [address], [place], [address], 05/05/2024 11:45:31 03/27/19 25 03/26/2024 stres s echoc ardio gram No observ ation record ed. [address], [place], [address], 05/05/2024 12:00:43 03/27/19 25 03/26/2024 stres s echoc ardio gram No observ ation record ed. [address], [place], [address], 05/05/2024 12:01:17 04/03/19 25 04/03/2024 CT, abdom en + pelvi s, w/o contr ast No observ ation record ed. [address], [place], [address], 05/05/2024 12:22:13 Result Notes None recorded. Problems Name Problem SNOMED Code Status Onset Date Resolution Date Notes Provider Name and Address Organization Details Recorded Time Osteonec rosis of head of femur 350551432 Active 2022 Shay hays MD [address], [address], [place], [address] , [employer] 3 18:35:50 Localize d, primary osteoart hritis of the hand 149628409 Active 2022 Mynor Judge MD [address], [address], [place], [address] , [facility] 3 16:08:51 Moderate chronic obstruct kristina pulmonar y disease 118034716 Active 2022 Alfredo Fletcher MD [address], [address], [place], [address] , [employer] [facility] [employer] 3 16:27:34 Posterio r rhinorrh ea 63386768 Active 2022 Alfredo Fletcher MD [address], [place], [address] , [place] [facility] 3 14:49:21 Cirrhosi s of liver 35538672 Active Not Available [facility] 3 02:58:47 Cerebrov ascular accident 608862444 Active 2001 on disabilt iy for his stroke from about 12 years ago Not Available [facility] 3 02:58:47 Retinal artery occlusio n 544824012 Active 2020 Not Available [facility] 3 02:58:47 Gastroes ophageal reflux disease without esophagi tis 681272896 Active 2020 Not Available [facility] 3 02:58:47 Osteomye litis of ankle AND/OR foot 15388199 Completed 201809/17/2018 Not Available [facility] 3 02:58:48 Amputate d big toe 104329016 Active 2018 Not Available [facility] 3 02:58:48 Malignan t neoplasm of urinary bladder 720926261 Active 2016 Not Available [facility] 3 02:58:48 Peripher al arterial occlusiv e disease 194179787 Active 2018 Not Available [facility] 3 02:58:48 Diabetic peripher al neuropat hy 558238137 Active 2018 Not Available [facility] 3 02:58:48 Hyperlip idemia 38371757 Active 2020 Not Available [facility] 3 02:58:49 [facility]ia l hyperten sampson 71037173 Active Not Available [facility] 3 02:58:49 Chronic kidney disease 879761423 Active 2020 Not Available [facility] 3 02:58:49 Smoker 40288593 Active 2020 Not Available [facility] 3 02:58:49 Thrombot ic thromboc ytopenic purpura 68255814 Active 2020 Not Available [facility] 3 02:58:49 Chronic sinusiti s 89733467 Active 2022 Lalito Acuña MD [address], [place], [address] , [facility] [employer] [facility] [place] [email or web address] [facility] 3 16:56:16 Serum alpha-fe toprotei n level above referenc e range 437722252 Active 2022 Lory carver, [facility] [email or web address] [facility] 3 10:07:32 Liver enzymes level above referenc e range 020215114 Active 2023 Shay hays MD [address], [address], [place], [address] , [facility] [employer] [facility] [place] [email or web address] [facility] 4 15:50:50 Heart murmur 66300018 Active 2023 Shay hays MD [address], [place], [address] , [facility] [employer] [facility] [email or web address] [facility] 4 15:50:50 Neuropat hy 907873907 Active 2023 Shay hays MD [address], [address], [place], [address] , [facility] [employer] [facility] [employer] [facility] 4 15:50:50 Anemia 292916497 Active 2023 Shay hays MD [address], [address], [place], [address] , [facility] [employer] [place] [email or web address] [facility] 4 15:50:50 Serum vitamin B12 below referenc e range 094479061 Active 2023 Shay hays MD [address], [address], [place], [address] , [facility] [employer] [facility] [place] [email or web address] [facility] 4 15:50:51 Abnormal gait due to impairme nt of balance 231862754 Active 2023 Shay hays MD [address], [address], [place], [address] , [facility] 4 15:50:51 Skin tag 939520093 Active 2023 Chantell lomeli MD [address], [address], [place], [address] , [facility] 4 13:28:53 Insomnia 116632031 Active 2023 Shay hays MD [address], [address], [place], [address] , [facility] 4 14:42:13 Type 2 diabetes mellitus without complica tion 074369558 Active 2023 Shay hays MD [address], [place], [address] , [facility] 4 18:52:08 Liver mass 823470170 Active 2023 Shay hays MD [address], [place], [address] , [facility] 4 18:52:08 Pain in right hand 76853894281 9109 Active 2023 Shay hays MD [address], [place], [address] , [facility] 4 18:52:08 Skin lesion 42121864 Active 2023 Shay hays MD [address], [place], [address] , [facility] 4 18:52:08 Upper respirat ory infectio n 14242320 Active 2023 Shay hays MD [address], [place], [address] , [facility] 4 18:52:08 Hemorrho ids 03188616 Active 2023 [facility] 10:23:03 Notes:Medical History: Left CVA without residual hemiparesis 2005 Syncope 2022 Right retinal artery occlusion Bilateral tinnitus Left deviated nasal septum Rhinitis with multiple environmental allergies Chronic sinusitis Eosinophils 80/uL Bilateral gynecomastia 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 Daniels 2016 Bilateral cataract extractions with IOL 2018 Sinus surgery 2022 Right chest port placement Problem Notes None recorded. Procedures Surgical History Date Name Laterality Status Provider Name and Address Organization Details Recorded Time 04/08/19 25 Transitional_Care_ Management completed Shay Hooper [facility] [address] [facility] [address], [place], [address], [facility] 04/08/2024 14:02:49 11/15/19 24 Medicare Wellness CPT Code, subsequent completed Zac Sanders LPN [facility] 11/14/2023 16:32:35 11/15/19 24 Advanced Care Planning completed Zac Sanders LPN [facility] 11/15/2023 14:27:09 09/06/19 24 Blank Procedure completed Chantell hernandez MD [address], [place], [address], [facility] 09/06/2023 11:55:11 09/20/19 23 Medicare Wellness CPT Code, subsequent completed Vivian Jacome RN [place] [employer] [facility] [employer] 09/19/2022 14:17:19 08/08/19 19 carotid endarterectomy completed Not Available [facility] 04/26/2022 02:51:44 06/03/19 17 Treatment of bladder lesion completed Not Available [facility] 04/26/2022 02:51:44 07/01/19 16 Excisions - Specify completed Not Available [facility] 04/26/2022 02:51:44 07/20/19 13 Colonoscopy completed Not Available [facility] 04/26/2022 02:51:44 Eye Surgery completed Not Available [facility] 04/26/2022 02:51:44 Toe completed Not Available [facility] 04/26/2022 02:51:44 Knee Surgery completed Not Available [facility] 04/26/2022 02:51:44 Appendectomy completed Not Available [facility] 04/26/2022 02:51:44 Brain Surgery completed Not Available [facility] 04/26/2022 02:51:44 nasal endoscopy with maxillary antrostomy completed Iesha Culp RN [facility] 10/10/2022 08:49:43 surgical procedure on frontal sinus completed Iesha Culp RN [facility] 10/10/2022 08:50:23 ethmoid sinusectomy completed Iesha Culp RN [facility] 10/10/2022 08:50:33 endoscopic sphenoidotomy completed Iesha Culp RN [facility] 10/10/2022 08:50:47 Cardiac Stent Placement completed EUFEMIA Padron [facility] 03/13/2024 14:31:56 Angioplasty completed EUFEMIA Padron [facility] 03/13/2024 14:32:07 Imaging Results Imaging Date Name Status LastModified by Organization Details LastModified Time 09/20/2023 CT, abdomen, w/ contrast completed [address], [place], [address], 01/03/2024 09:22:04 09/24/2023 LDCT, chest, for lung cancer screening completed [address] [place], [address], 09/24/2023 14:39:55 09/24/2023 LDCT, chest, for lung cancer screening completed [address] ([employer]) [address] [place], [address], 01/03/2024 09:22:24 11/16/2023 trans-thoracic echocardiogram (TTE) (PROC) completed [address] [facility] [address], [place], [address], 11/19/2023 12:20:42 11/16/2023 imaging/diagnostic result completed [address] [facility] [address], [place], [address], 01/07/2024 10:26:58 12/24/2023 CT, abdomen, w/ contrast completed [address] [facility], [place], [address], 01/10/2024 10:01:50 01/18/2024 XR, chest completed [address] [place] [address], [address], 05/01/2024 14:01:46 01/18/2024 imaging/diagnostic result completed [address] [facility], [place], [address], 05/01/2024 14:04:53 01/19/2024 imaging/diagnostic result completed [address] [facility], [place], [address], 05/01/2024 14:05:40 03/24/2024 XR, chest completed [address] [place] [address], [address], 05/05/2024 11:08:49 03/24/2024 CT, angiogram, chest + abdomen + pelvis, w/wo contrast completed [address] [place] [address], [address], 05/05/2024 11:45:31 03/26/2024 stress echocardiogram completed [address] [place] [address], [address], 05/05/2024 12:00:43 03/26/2024 stress echocardiogram completed [place] [address] [facility] [address], [place], [address], 05/05/2024 12:01:17 04/03/2024 CT, abdomen + pelvis, w/o contrast completed [place] [address] [facility] [address], [place], [address], 05/05/2024 12:22:13 Procedure Notes None recorded. Medical Equipment None Reported. Allergies Allergen ID Allergen Name Allergen Category Reaction Reaction Severity Criticality Documentation Date Start Date Code Code System Note Provider Name and Address Organization Details Recorded Time 5276 Product containin g penicilli n (product) medicatio n Not available Not available Not available 04/26/2022 13344 8001 SNOMED Not Available [facility] 3 03:08:35 5277 doxycycli ne Not available Not available Not available Not available 04/26/2022 3640 RxNorm Not Available [facility] 3 03:08:35 5278 codeine medicatio n abdominal pain Not available Not available 04/26/2022 2670 RxNorm Not Available [facility] 3 03:08:35 97883 torsemide medicatio n rash moderate low 06/02/2022 33074 RxNorm EUFEMIA Tyson null, [place] [facility] 3 10:43:49 Medications Name Sig Start Date [...] n for injection IN OFFICE 07/05 completed [facility]: [phone] Not Available Not Available Not Available benzonata [...] e 137 mcg (0.1 %) nasal spray [facility] 2 sprays twice a day by intranas [...] bromide 42 mcg (0.06 %) nasal spray [facility] 1 spray 4 times a day by [...] %) injection solution IN OFFICE 07/05 completed [facility] 66930-96 05-27 Not Available Not Available Not Available [...] Ultra-Fin e 1 mL 31 gauge x /16 USE TO INJECT INSULIN 5 TIMES DAILY 07/28 completed Not Available Not Available Not Available ReliOn Pen [place] 32 gauge x 5/32 once daily uud 05/30 completed Not Available Not Available Not Available Levemir FlexTouch U-100 Insulin 100 unit/mL (3 mL) subcutane ous pen INJECT 50 UNITS SUBCUTAN EOUSLY ONCE DAILY 11/08 completed Not Available Not Available Not Available Toujeo SoloStar U-300 Insulin 300 unit/mL (1.5 mL) [...] completed Not Available Not Available Not Available Bydureon BCise 2 mg/0.85 mL subcutane ous auto-inje [...] completed Not Available Not Available Not Available Lyummauricio KwikPen U-100 Insulin 100 unit/mL subcutane ous Inject [...] Updated DateTime 4 177.8 cm 29 kg/m2 75679.6 6 g 97.2 [degF] 72 /min 14 /min 98 % 98 % 120 mm[Hg] 70 mm[Hg] Manju Jacobson [place] [email or web address] [facility] 4 11:10:30 Date Recorded Body height Body mass index (BMI) Body weight Body temperature Heart rate Respiratory rate Oxygen saturation Oxygen saturation in Arterial blood by Pulse oximetry Systolic blood pressure Diastolic blood pressure Provider Name and Address Organization Details Last Updated DateTime 4 177.8 cm 29 kg/m2 00720.6 6 g 98.6 [degF] 72 /min 12 /min 98 % 98 % 122 mm[Hg] 72 mm[Hg] Brooklyn Myers MA [facility] [employer] [facility] 4 10:31:23 Date Recorded Body height Body mass index (BMI) Body weight Body temperature Heart rate Oxygen saturation Oxygen saturation in Arterial blood by Pulse oximetry Systolic blood pressure Diastolic blood pressure Provider Name and Address Organization Details Last Updated DateTime 4 177.8 cm 26.7 kg/m2 19064.1 8 g 97.1 [degF] 71 /min 98 % 98 % 134 mm[Hg] 60 mm[Hg] Viridiana Carlos MA [facility] [employer] [facility] [facility] 4 14:23:10 Date Recorded Pain severity - 0-10 verbal numeric rating [Score] - Reported Provider Name and Address Organization Details Last Updated DateTime 11/15/2023 0 Zac Sanders LPN [facility] [employer] [facility] 11/15/2023 14:24:44 Date Recorded Body height Body mass index (BMI) Body weight Body temperature Heart rate Systolic blood pressure Diastolic blood pressure Provider Name and Address Organization Details Last Updated DateTime 5 177.8 cm 26.4 kg/m2 35501 g 97.6 [degF] 60 /min 100 mm[Hg] 50 mm[Hg] EUFEMIA Padron [facility] [employer] [facility] [facility] 5 14:31:24 Date Recorded Body height Body mass index (BMI) Body weight Body temperature Heart rate Oxygen saturation Oxygen saturation in Arterial blood by Pulse oximetry Pain severity - 0-10 verbal numeric rating [Score] - Reported Systolic blood pressure Diastolic blood pressure Provider Name and Address Organization Details Last Updated DateTime 5 177.8 cm 25.5 kg/m2 58260.4 4 g 97.6 [degF] 103 /min 96 % 96 % 0 130 mm[Hg] 58 mm[Hg] Yeni Chavez MA [facility] [employer] [facility] 5 12:23:09 Social History Question Answer Notes LastModified by Organization Details LastModified Time Tobacco Smoking Status Current Every Day Smoker Not Available [facility] 04/26/2022 02:49:19 Do You Have An Advance Directive? No Not Interested In Info Today MIGRATION.0301 [id number] Information not available 04/26/2022 What Is Your Level Of Alcohol Consumption? Occasional MIGRATION.0301 640640 Information not available 04/26/2022 How Many Years Have You Consumed Alcohol? 50 [email or web address] Information not available 11/15/2023 Are You Blind Or Do You Have Difficulty Seeing? No MIGRATION.0301 465656 Information not available 04/26/2022 Is Blood Transfusion Acceptable In An Emergency? Yes [email or web address] Information not available 11/15/2023 What Is Your Level Of Caffeine Consumption? None MIGRATION.0301 288063 Information not available 04/26/2022 How Much Tobacco Do You Chew? None MIGRATION.0301 130001 Information not available 04/26/2022 In The 14 Days Before Symptom Onset, Have You Had Close Contact With A Laboratory-conf irmed COVID-19 While That Case Was Ill? No MIGRATION.0301 923461 Information not available 04/26/2022 In The 14 Days Before Symptom Onset, Have You Had Close Contact With A Person Who Is Under Investigation For COVID-19 While That Person Was Ill? No MIGRATION.0301 385529 Information not available 04/26/2022 Are You Currently Employed? No [email or web address] Information not available 11/15/2023 Are You Deaf Or Do You Have Serious Difficulty Hearing? No MIGRATION.0301 871056 Information not available 04/26/2022 What Type Of Diet Are You Following? REGULAR MIGRATION.0301 804087 Information not available 04/26/2022 Which Illicit Or Recreational Drugs Have You Used? None MIGRATION.0301 989061 Information not available 04/26/2022 Do You Or Have You Ever Used E-cigarettes Or Vape? Never Used Electronic Cigarettes MIGRATION.0301 070161 Information not available 04/26/2022 What Is The Highest Grade Or Level Of School You Have Completed Or The Highest Degree You Have Received? SS05414-1 MIGRATION.0301 411124 Information not available 04/26/2022 Do You Have An Electrostatic Air Filter? No Information not available 06/05/2022 What Is Your Occupation? Retired MIGRATION.0301 017245 Information not available 04/26/2022 How Many Days Of Moderate To Strenuous Exercise, Like A Brisk Walk, Did You Do In The Last 7 Days? 0 [email or web address] Information not available 11/15/2023 Have There Been Any Changes To Your Family Or Social Situation? No MIGRATION.0301 488609 Information not available 04/26/2022 What Is The Fluoride Status Of Your Home? Unknown MIGRATION.0301 790460 Information not available 04/26/2022 Are There Any Guns Present In Your Home? Yes MIGRATION.030 932476 Information not available 04/26/2022 Do You Have A Humidifier? No Information not available 06/05/2022 Do You Use Insect Repellent Routinely? No MIGRATION.030 811589 Information not available 04/26/2022 Where Do You Live? SingleLevelHouse MIGRATION.030 653634 Information not available 04/26/2022 Presence Of Domestic Violence No [email or web address] Information not available 11/15/2023 Guns Present In The Home? Yes [email or web address] Information not available 11/15/2023 Are You Able To Care For Yourself? Yes [email or web address] Information not available 11/15/2023 Are You Blind Or Do Yo Have Difficulty Seeing? No Information not available 11/15/2023 Are You Deaf Or Do You Have Serious Difficulty Hearing? No [email or web address] Information not available 11/15/2023 General Stress Level? Low [email or web address] Information not available 11/15/2023 Live Alone Of With Others? With Others [email or web address] Information not available 11/15/2023 Do You Have A Medical Power Of Butt Welder? No MIGRATION.030 106981 Information not available 04/26/2022 Do You Have Moisture Problems In Your Home? No Information not available 06/05/2022 What Was The Date Of Your Most Recent Tobacco Screening? 04/08/2024 [email or web address] Information not available 04/08/2024 How Many Children Do You Have? 1 [email or web address] Information not available 11/15/2023 Have You Ever Been Counseled For Unhealthy Alcohol Use? No Information not available 11/15/2023 Do You Have Any Pets? Yes Dog Information not available 11/15/2023 Do You Use Protection During Sex? No [email or web address] Information not available 11/15/2023 What Is Your Relationship Status? MIGRATION.030 539463 Information not available 04/26/2022 Do You Use Your Seat Belt Or Car Seat Routinely? Yes Information not available 11/07/2022 Are You Sexually Active? Yes [email or web address] Information not available 11/15/2023 Do You Have Smoke And Carbon Monoxide Detectors In Your Home? Yes MIGRATION.0301 411417 Information not available 04/26/2022 At What Age Did You Start Smoking Tobacco? 12 MIGRATION.0301 160961 Information not available 04/26/2022 Are You Passively Exposed To Smoke? Yes MIGRATION.0301 284725 Information not available 04/26/2022 Do You Or Have You Ever Used Smokeless Tobacco? Never Used Smokeless Tobacco MIGRATION.0301 705873 Information not available 04/26/2022 Are There Any Smokers In Your House? Yes MIGRATION.0301 259112 Information not available 04/26/2022 How Much Tobacco Do You Smoke? 1 PPD 3/4 Pack Information not available 07/20/2022 What Types Of Sporting Activities Do You Participate In? None [email or web address] Information not available 11/15/2023 Do You Feel Stressed (tense, Restless, Nervous, Or Anxious, Or Unable To Sleep At Night)? PP18838-8 MIGRATION.0301 280270 Information not available 04/26/2022 Do You Use Any Illicit Or Recreational Drugs? No MIGRATION.0301 621102 Information not available 04/26/2022 Do You Use Sunscreen Routinely? No MIGRATION.0301 982071 Information not available 04/26/2022 Has Tobacco Cessation Counseling Been Provided? No [email or web address] Information not available 11/15/2023 How Many Years Have You Smoked Tobacco? 55 [email or web address] Information not available 06/27/2022 Have You Recently Traveled Abroad? No MIGRATION.0301 153970 Information not available 04/26/2022 Do You Or Have You Ever Used Any Other Forms Of Tobacco Or Nicotine? No MIGRATION.0301 905197 Information not available 04/26/2022 How Many Days In The Past Year Have You Consumed 5 Or More Drinks? 0 Information not available 11/15/2023 Sex: Male Functional Status Question Answer Note LastModified by Organizat ion Details LastModified Time Do you have difficulty walking or climbing stairs? No MIGRATION.8205959 026 Information not available 04/26/2022 Do you have transportation difficulties? No MIGRATION.3213702 026 Information not available 04/26/2022 Are you able to walk? YESWOREST MIGRATION.1857700 026 Information not available 04/26/2022 Do you have difficulty doing errands alone? No MIGRATION.7831085 026 Information not available 04/26/2022 Are you able to care for yourself? Yes MIGRATION.3488423 026 Information not available 04/26/2022 Do you have difficulty dressing or bathing? No MIGRATION.5398268 026 Information not available 04/26/2022 What is your exercise level? None MIGRATION.9750863 026 Information not available 04/26/2022 Mental Status Question Answer Note LastModified by Organizat ion Details LastModified Time Do you have difficulty concentrating, remembering or making decisions? No MIGRATION.[id number] 6 Information not available 04/26/2022 Family History Relationship Description Onset Age of this Age Resolved Age Notes LastModified by Organization Details LastModified Time Mother Pneumonia 70 MIGRATION.448 [id number] Not available 04/26/2022 02:51:48 Father Essential hypertension 62 MIGRATION.081 [id number] Not available 04/26/2022 02:51:48 Father Cerebrovascu lar accident MIGRATION.563 [id number] Not available 04/26/2022 02:51:48 Father Blood coagulation [...] SNOMED-CT Code Diagnosis ICD10 Code Diagnosis Note [id number] [facility] [place] [address] [facility], [place] [address] [place] [address] 05/20/2020 00:00:00 05/20/2020 16:55:08 [id number] _ATHENA_M IGRATION_ DEFAULT_1 _1 , 05/20/2020 00:00:00 05/20/2020 16:17:59 [id number] _ATHENA_M IGRATION_ DEFAULT_1 _1 , 09/16/2020 00:00:00 09/16/2020 15:23:08 [id number] [facility] Internal Med [facility] [address] [place] [address] [place] [address] 10/19/2020 00:00:00 10/20/2020 11:54:38 [id number] _ATHENA_M IGRATION_ DEFAULT_1 _1 , 01/13/2021 00:00:00 01/13/2021 15:27:11 [id number] _ATHENA_M IGRATION_ DEFAULT_1 _1 , 05/12/2021 00:00:00 05/12/2021 15:01:10 [id number] [facility] [address] [facility] 15 [place] [address] 05/26/2021 00:00:00 05/26/2021 14:55:02 [id number] [facility] [address] [facility] [address] [address] 11/08/2021 00:00:00 11/08/2021 14:54:21 [id number] [facility] Endo Elvie Russell [address] [place] [address] 12/15/2021 00:00:00 12/15/2021 21:42:48 [id number] Shay hays MD [facility] [address] [facility] 15 [place] [address] 05/16/2022 13:58:55 05/16/2022 14:33:54 Screening - NAD 683061781 Z13.9 C-scope: 10/16/16: Dr Nilda hernandez next in 10 years Get flu shot declined thisUTD Tdap 02/06/17Ge t COVID 19 vaccine done states that he does not want it as he does not believe in vaccine that was rushed thru', advised to follow CDC guidelines RTC in 4 monthsGet labsER if worsehe did verbalize his understand ing of above Heart murmur 35666869 R0 1.[address] Harris 08/08/2021 Type 2 anish betes mellitus without complication 650295194 E11.[address] Dhillon 06/02/[address] Powell podiatryNe eds to see eye MDGet labs from Dr Dhillon Essential hypertension 34891714 I10 On ASA Off lasixOff losartan 25mg daily On chlorthali done 25mg 1/[address] Low 10/04/2021 On nadolol 20mg dailyGet labsHe does see Dr Low 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.[address] Jorge 10/05/21, next in one yearGet repeat labs Malignant neoplasm of urinary bladder 621568724 C67.9 s/p surgery by Dr Daniels, in 06/[address] Daniels Smoker 53470411 F17.200 Advised to quit LDCT 09/26/2019 CT chest 06/06/2021 : Cirrhosis of the liverGet AAA Liver enzy mes level above reference range 654632722 R74.[address] Silverio , but now sees Dr Brooks liver 05/17/2021 : cirrhosis, cholelithi asisGet labs Chronic ki dney disease 052447524 N18.9 Dr Low nephrology Neuropathy 622128604 G62 .9 Not on lyrica 50mg tidDoes well Gastroesop hageal reflux disease without esophagitis 369955503 K21.9 On pantaprozo leDoes wellTake as needed Hyperlipidemia 14710688 E78.5 On atorvastat in 20mg dailyNot on vascepaGet labs Insomnia 195895796 G47.0 0 On ambienDoes well Retinal ar amy occlusion 560576845 H34.9 Seen by Retina Greenwald 05/07/18: Dr Coleman, noted to have a Hallenhors t plaqueKeep apt wtih Dr Collado who he now sees Anemia 652004361 D64.9 Is on ironDoes well Osteonecro sis of head of femur 361339651 M87.[address] Barfield 01/15/2020 , no surgery doneDoes well Right uppe r quadrant pain 024363620 R10.[address] Simmons 01/15/2020 No surgery doneDoes well Serum brielle min B12 below reference range 180768612 R79.89 Pain in right hand 39269 08369 52913 M79.641 Abnormal g ait due to impairment of balance 404807778 R26.89 Feels that his gait is getting worse, he did have cerebellar surgery 17 years ago and feels that this contribute s to it, will get PT [id number] Mynor Judge MD [facility] [place] [place] Ortho Elvie Russell [address] [place] [address] 06/27/2022 14:31:29 06/27/2022 15:06:26 Pain of bilateral hands 6913707213 7690408 M79.641 M79.642 Localized, primary osteoarthritis of the hand 380111012 M19.049 we discussed different treatment options. Sterile [...] to anti-infla mmatory with appropriat e precaution [id number] Cindy Dhillon MD [facility] [place] [place] Endo Elvie Russell [address] [place] [address] 06/02/2022 10:37:36 06/02/2022 11:15:29 Well controlled type 2 diabetes mellitus 753933270 E11.9 A1C of 5.6%- continue tresiba 50 [...] goal range. Chronic ob structive pulmonary disease 13727792 J44.9 refer to pulmonolog y and obtain PFTs - patient chronic smoker- wheezy on examinatio n and has increased expiratory phase. Would benefit from overall pulm evaluation . Dyslipidemia 039353231 E 78.5 Continue statin therapy as LDL [...] he chooses to go outside of the [facility] system to obtain labwork he was [...] in his case. He voiced understand ing. [id number] Shay hays MD [facility] Internal Med Phill dhillon [address] [facility] , [place] [address] 06/05/2022 14:29:35 06/05/2022 15:06:24 Screening - NAD 418862398 Z13.9 C-scope: 10/16/16: Dr Nilda hernandez next in 10 years Get flu shot declined thisUTD Tdap 02/06/17Ge t COVID 19 vaccine done states that he does not want it as he does not believe in vaccine that was rushed thru', advised to follow CDC guidelines RTC in 4 monthsGet labsER if worsehe did verbalize his understand ing of above Heart murmur 32666833 R0 1.[address] Harris Essential hypertension 99443974 I10 BP much better today 06/05/2022 On ASAOn amlodipine 5mg dailyOn chlorthali done 25mg 1/[address] Low 10/04/2021 On nadolol 20mg daily OK to renew 06/05/2022 Off lasixOff losartan 25mg daily as per Dr Harris 05/30/[address]He [address] Low [id number] Alfredo Fletcher MD S_GM[address] [address] 06/05/2022 15:34:48 06/06/2022 08:17:08 Dyspnea on exertion 63194828 R06.09 R05.9 T78.40XS D89.9 Smoker 11950274 F17.218 F17.219 Z87.891 [id number] MD SARAH [facility] [address] [address] 07/04/2022 15:25:42 07/05/2022 08:19:32 Smoker 31404649 F17.218 F17.219 Z87.891 Moderate c hronic obstructive pulmonary disease 039636110 J44.9 [id number] Alfredo Fletcher MD [facility]_[address] [address] 07/20/2022 14:00:27 07/21/2022 08:30:46 Smoker 13573933 F17.218 F17.219 Z87.891 Moderate c hronic obstructive pulmonary disease 021498238 J44.9 J44.1 Posterior rhinorrhea 758 38067 R09.82 J01.90 [id number] Lalito Acuña MD [facility] E[facility] [place] [address] [place] [address] 08/24/2022 11:44:23 08/24/2022 16:39:03 Chronic sinusitis 83244465 J32.9 [id number] Lalito Acuña MD [facility] [place] [address] [place] [address] 09/14/2022 12:25:09 09/14/2022 12:47:31 Chronic sinusitis 05775960 J32.9 Chronic ma xillary sinusitis 57937802 J32.0 Chronic et hmoidal sinusitis 89870723 J32.2 Chronic fr ontal sinusitis 63549353 J32.1 Chronic sp henoidal sinusitis 36417622 J32.3 [id number] Shay hays MD [facility] Internal Med [facility] [address] [facility], [place] [address] [place] [address] 09/19/2022 13:55:53 09/19/2022 14:30:51 Screening - NAD 651117673 Z13.9 C-scope: 10/16/16: Dr Nilda hernandez next in 10 years Get flu shot declined thisUTD Tdap 02/06/17Ge t COVID 19 vaccine done states that he does not want it as he does not believe in vaccine that was rushed thru', advised to follow CDC guidelines RTC in 4 monthsGet labsER if worsehe did verbalize his understand ing of above Heart murmur 32793637 R0 1.[address] Harris Essential hypertension 33886516 I10 BP much better today 06/05/2022 On ASAOn amlodipine 5mg dailyOn chlorthali done 25mg 1/[address] Low 10/04/2021 On nadolol 20mg daily OK to renew 06/05/2022 Off lasixOff losartan 25mg daily as per Dr Harris 05/30/2022 Get labsHe does see Dr Low Type 2 anish betes mellitus without complication 433981296 E11.9 On trescibaOn Fiasp Sees Dr Dhillon 06/02/2022 next 11/27/[address] Powell podiatryNe eds to see eye MDGet labs from Dr Dhillon Thrombotic thrombocytopenic purpura 64850355 M31.[address] Jorge 10/05/21, next in one yearGet repeat labs Malignant neoplasm of urinary bladder 621262044 C67.9 s/p surgery by Dr Daniels, in 06/[address] Daniels Smoker 09042452 F17.200 Advised to quit LDCT 09/26/2019 CT chest 06/06/2021 : Cirrhosis of the liverGet US AAA Liver enzy mes level above reference range 131322554 R74.[address] Silverio , but now sees Dr Brooks liver 05/17/2021 : cirrhosis, cholelithi asisGet labs Chronic ki dney disease 947962086 N18.9 Dr Low nephrology Neuropathy 544005210 G62 .9 Not on lyrica 50mg tidDoes well Gastroesop hageal reflux disease without esophagitis 081803970 K21.9 On pantaprozo leDoes wellTake as needed Hyperlipidemia 84486169 E78.5 On atorvastat in 20mg dailyNot on vascepaGet labs Insomnia 371193262 G47.0 0 On ambienDoes well Retinal ar amy occlusion 011767697 H34.9 Seen by [facility] 05/07/18: Dr Coleman, noted to have a Hallenhors t plaqueKeep apt wtih Dr Collado who he now sees Anemia 653082971 D64.9 Is on ironDoes well Osteonecro sis of head of femur 652738777 M87.[address] Barfield 01/15/2020 , no surgery doneDoes well Right uppe r quadrant pain 475073921 R10.[address] Simmons 01/15/2020 No surgery doneDoes well Serum brielle min B12 below reference range 756707370 R79.89 Pain in right hand [address] 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 Abnormal g ait due to impairment of balance 621425317 R26.89 Feels that his gait is getting worse, he did have cerebellar surgery 17 years ago and feels that this contribute s to it, will get PT Adult heal th examination 451389784 Z00.00 Screening for disorder 135564444 Z13.9 [id number] Lalito Acuña MD [facility] [place] [address] [place] [address] 10/12/2022 12:28:40 10/12/2022 13:42:07 Chronic sinusitis 59746726 J32.9 [id number] Alfredo Fletcher MD [facility] Pulmonolo gy [place] [address] [place] [address] [address] [place] [address] 11/07/2022 14:00:11 11/08/2022 09:18:46 Smoker 40733396 F17.218 F17.219 Z87.891 Moderate c hronic obstructive pulmonary disease 955079924 J44.9 J44.1 Posterior rhinorrhea 758 95775 R09.82 [id number] Cindy Dhillon MD [facility] [place] Endo [place] [address] [place] [address] 11/27/2022 14:43:15 11/27/2022 15:48:01 Well controlled type 2 diabetes mellitus 536677488 E11.9 A1C of 5.7%- continue tresiba 50 [...] to endocrinol ogy per patient request. Dyslipidemia 573245251 E 78.5 Continue statin therapy as LDL [...] answered and refills necessary at visit today. [id number] Lalito Acuña MD [facility] ENT [place] [address] [place] [address] 12/07/2022 16:27:51 12/08/2022 14:58:09 Chronic sinusitis 84862026 J32.9 [id number] Shay hays MD [facility] [place] [place] Internal Med Phill dhillon [address] , [facility] [place] [address] 12/27/2022 11:27:41 12/27/2022 11:49:29 Abdominal pain 32648566 R10.[address] scan abd/pelvis , stat hold and callMay need to go to ER if not better, he is agreeable to this plan of care Addendum: 12/27/2022 :CT A/P; noted, needs to see GI hepatologi st, concern for masses Liver mass 848011851 R16 .0 Get a referral to oncologist CT A/P 12/27/2022 [id number] Shay hays MD [facility] [place] [place] Internal Med [facility] [address] [facility] [address] [place] [address] 03/20/2023 14:10:52 03/22/2023 11:39:53 Liver mass 903543549 R16.0 Get a referral to oncologist CT A/P 12/27/[address] 01/04/2023 MRI Abd: 01/27/2023 CT 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/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 Dr Cassidy 01/02/2023 Screening - NAD 38686825 3 Z13.9 C-scope: 10/16/16: Dr Nilda hernandez [...] his understand ing of above Heart murmur 67104342 R0 1.[address] Harris Essential hypertension 92943915 I10 BP much better today 06/05/2022 On ASAOn amlodipine 5mg dailyOn chlorthali done 25mg 1/[address] Low 10/04/2021 On nadolol 20mg daily OK to renew 06/05/2022 Off lasixOff losartan 25mg daily as per Dr Harris 05/30/2022 Get labsHe does see Dr Lwo Type 2 anish betes mellitus without complication 616388678 E11.9 On trescibaOn Fiasp Sees Dr Dhillon 06/02/2022 next 11/27/2022 Sees Dr Powell podiatryNe eds to see eye MDGet labs from Dr Dhillon Thrombotic thrombocytopenic purpura 61561593 M31.[address] Jorge 10/05/21No w sees Dr Jimenez repeat labs Malignant neoplasm of urinary bladder 409640009 C67.9 s/p surgery by Dr Daniels, in 06/[address] Daniels Smoker 82549572 F17.200 Advised to quit LDCT 09/26/2019 CT chest 06/06/2021 : Cirrhosis of the liverGet AAA Liver enzy mes level above reference range 006859212 R74.[address] Silverio , but now sees Dr Brooks liver 05/17/2021 : cirrhosis, cholelithi asisGet labs Chronic ki dney disease 346377993 N18.9 Dr Low nephrology Neuropathy 506499951 G62 .9 Not on lyrica 50mg tidDoes well Gastroesop hageal reflux disease without esophagitis 852677663 K21.9 On pantaprozo leDoes wellTake as needed Hyperlipidemia 54506742 E78.5 On atorvastat in 20mg dailyNot on vascepaGet labs Insomnia 462277912 G47.0 0 On ambienDoes well Retinal ar amy occlusion 065934821 H34.9 Seen by Retina Greenwald 05/07/18: Dr Coleman, noted to have a Hallenhors t plaqueKeep apt wtih Dr Collado who he now sees Anemia 652912339 D64.9 Is on ironDoes well Osteonecro sis of head of femur 410709138 M87.[address] Barfield 01/15/2020 , no surgery doneDoes well Serum brielle min B12 below reference range 806736370 R79.89 Pain in right hand [address] 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 Abnormal g ait due to impairment of balance 385334648 R26.89 Feels that his gait is getting worse, he did have cerebellar surgery 17 years ago and feels that this contribute s to it, will get PT OV 03/20/2023 : Get PT renewed [id number] Shay hays MD [facility] Phill dhillon [address] [facility] [place] [address] 07/04/2023 10:01:55 07/04/2023 10:55:29 Screening - NAD 182628363 Z13.9 C-scope: 10/16/16: Dr Nilda hernandez next [...] his understand ing of above Liver mass 258874304 R16 .0 Get a referral to oncologist CT A/P 12/27/[address] 01/04/2023 MRI Abd: 01/27/2023 CT 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/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CT A/P 06/29/2023 : Dr Khanh Cassidy will see 07/06/2023 Heart murmur 12931520 R0 1.[address] Harris Essential hypertension 46576025 I10 BP much better today 06/05/2022 On ASAOn amlodipine 5mg dailyOn chlorthali done 25mg 1/[address] Low 10/04/2021 On nadolol 20mg daily OK to renew 06/05/2022 Off lasixOff losartan 25mg daily as per Dr Harris 05/30/2022 Get labsHe does see Dr Low Type 2 anish betes mellitus without complication 011151607 E11.9 On trescibaOn Fiasp Sees Dr Dhillon 06/02/2022 next 11/27/[address] Powell podiatryNe eds to see eye MDGet labs from Dr Dhillon Thrombotic thrombocytopenic purpura 29976385 M31.[address] Jorge 10/05/21No w sees Dr Jimenez repeat labs Malignant neoplasm of urinary bladder 269992601 C67.9 s/p surgery by Dr Daniels, in 06/[address] Daniels Smoker 70373918 F17.200 Advised to quit LDCT 09/26/2019 CT chest 06/06/2021 : Cirrhosis of the liverGet US AAA Liver enzy mes level above reference range 486094468 R74.[address] Silverio , but now sees Dr Ledezma US liver 05/17/2021 : cirrhosis, cholelithi asis Get labs Chronic ki dney disease 707017418 N18.9 Dr Low nephrology Neuropathy 004098299 G62 .9 On lyrica 50mg tid Does well Gastroesop hageal reflux disease without esophagitis 291534473 K21.9 On pantaprozo leDoes wellTake as needed Hyperlipidemia 06194325 E78.5 On atorvastat in 20mg dailyNot on vascepa Get labs Insomnia 894616002 G47.0 0 On ambienDoes well Retinal ar amy occlusion 760775075 H34.9 Seen by Retina Greenwald 05/07/18: Dr Coleman, noted to have a Hallenhors t plaque Keep apt wtih Dr Collado who he now sees Anemia 099442596 D64.9 Is on iron Does well Osteonecro sis of head of femur 496833705 M87.[address] Barfield 01/15/2020 , no surgery done Does well Serum brielle min B12 below reference range 380597529 R79.89 Pain in right hand [address] 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 Abnormal g ait due to impairment of balance 058623421 R26.89 Feels that his gait is getting worse, he did have cerebellar surgery 17 years ago and feels that this contribute s to it, will get PT OV 03/20/2023 : Get PT renewed Upper resp iratory infection 56465437 J06.9 Get xray chestGet on z-pack, flonase and claritinDo es not want to do COVID 19 RT PCR or strep or fluER if worse Addendum: 07/04/2023 : Case sent Skin lesion 60928942 L98 .9 Multiple slightly raised dark macules noted on the R>L abd wallRefer to Dr Simmons [id number] Chantell lomeli MD [facility] [place] [place] General Surgery [address] [place] [address] 07/10/2023 11:14:23 07/25/2023 16:22:10 Skin tag 548486447 L91.8 [id number] Shay hays MD [facility] Internal Med [facility] [address] [place] [address] 07/19/2023 14:15:12 07/19/2023 14:46:44 Liver mass 777095535 R16.0 Get a referral to oncologist CT A/P 12/27/[address] 01/04/2023 MRI Abd: 01/27/2023 CT 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/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CT A/P 06/29/2023 : Dr Khanh Cassidy 07/06/2023 , f/u in 3 weeks Screening - NAD 79972651 3 Z13.9 C-scope: 10/16/16: Dr Nilda hernandez [...] his understand ing of above Heart murmur 95440261 R0 1.[address] Harris Essential hypertension 06454233 I10 BP much better today 06/05/2022 On ASAOn amlodipine 5mg dailyOn chlorthali done 25mg 1/[address] Low 10/04/2021 On nadolol 20mg daily OK to renew 06/05/2022 Off lasixOff losartan 25mg daily as per Dr Harris 05/30/2022 Get labsHe does see Dr Low Type 2 anish betes mellitus without complication 546607241 E11.9 On trescibaOn Fiasp Sees Dr Dhillon 06/02/2022 next 11/27/[address] Powell podiatryNe eds to see eye MDGet labs from Dr Dhillon Thrombotic thrombocytopenic purpura 54667356 M31.[address] Jorge 10/05/21No w sees Dr Jimenez repeat labs Malignant neoplasm of urinary bladder 292425349 C67.9 s/p surgery by Dr Daniels, in 06/[address] Daniels Smoker 79180612 F17.200 Advised to quit LDCT 09/26/2019 CT chest 06/06/2021 : Cirrhosis of the liverGet AAA Liver enzy mes level above reference range 686880928 R74.[address] Silverio , but now sees Dr Ledezma US liver 05/17/2021 : cirrhosis, cholelithi asis Get labs Chronic ki dney disease 983399383 N18.9 Dr Low nephrology Neuropathy 904737281 G62 .9 On lyrica 50mg tidDoes well Gastroesop hageal reflux disease without esophagitis 601730269 K21.9 On pantaprozo leDoes wellTake as needed Hyperlipidemia 28895787 E78.5 On atorvastat in 20mg dailyNot on vascepa Get labs Insomnia 479352984 G47.0 0 On ambienDoes well Retinal ar amy occlusion 449969138 H34.9 Seen by Retina Greenwald 05/07/18: Dr Coleman, noted to have a Hallenhors t plaque Keep apt wtih Dr Collado who he now sees Anemia 253098360 D64.9 Is on iron Does well Osteonecro sis of head of femur 909167458 M87.[address] Barfield 01/15/2020 , no surgery done Does well Serum brielle min B12 below reference range 859595560 R79.89 Pain in right hand [address] 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 Abnormal g ait due to impairment of balance 378809392 R26.89 Feels that his gait is getting worse, he did have cerebellar surgery 17 years ago and feels that this contribute s to it, will get PT OV 03/20/2023 : Get PT renewed Upper resp iratory infection 04007830 J06.9 Get xray chestGet on z-pack, flonase and claritinDo es not want to do COVID 19 RT PCR or strep or fluER if worse Addendum: 07/04/2023 : Case sent Skin lesion 59087067 L98 .9 Multiple slightly raised dark macules noted on the R>L abd wallRefer to Dr Troy Simmons 07/10/2023 , to get skin tag removed 07/31/2023 [id number] [address]ell lomeli MD [facility] General Surgery [address] [address] 09/06/2023 11:02:17 09/24/2023 14:37:12 Skin lesion 16712944 L98.9 Right Flank, Right upper leg [id number] Chantell lomeli MD [facility] General Surgery [address] [address] 09/25/2023 10:29:06 09/25/2023 10:54:[id number] [facility] Internal Med [facility] [address] [address] 11/15/2023 14:12:12 11/15/2023 14:47:24 Adult health examination 353595836 Z00.00 Screening for disorder 340583063 Z13.9 Liver mass 843630957 R16 .0 Get a referral to oncologist CT A/P 12/27/[address] 01/04/2023 MRI Abd: 01/27/2023 CT 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/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CT A/P 06/29/2023 : Dr Khanh Cassidy 09/27/2023 , be on megace Screening - NAD 29970041 3 Z13.9 C-scope: 10/16/16: Dr Nilda hernandez [...] his understand ing of above Heart murmur 55744908 R0 1.[address] Harris Essential hypertension 73165646 I10 BP much better today 06/05/2022 On ASAOn amlodipine 5mg dailyOn chlorthali done 25mg 1/[address] Low 10/04/2021 On nadolol 20mg daily OK to renew 06/05/2022 Off lasixOff losartan 25mg daily as per Dr Harris 05/30/2022 Get labsHe does see Dr Low Type 2 anish betes mellitus without complication 372248030 E11.9 On trescibaOn Fiasp Sees Dr Dhillon 06/02/2022 next 11/27/[address] Powell podiatryNe eds to see eye MDGet labs from Dr Dhillon 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.[address] Jorge 10/05/21No w sees Dr Jimenez repeat labs Malignant neoplasm of urinary bladder 325485731 C67.9 s/p surgery by Dr Daniels, in 06/[address] Daniels Smoker 87515811 F17.200 Advised to quit LDCT 09/26/2019 CT chest 06/06/2021 : Cirrhosis of the liverLDCT 09/24/2023 4: Dr Garcia AAA: 07/30/2023 Liver enzy mes level above reference range 553091588 R74.[address] Silverio , but now sees Dr Ledezma US liver 05/17/2021 : cirrhosis, cholelithi asisGet labs Chronic ki dney disease 790599898 N18.9 Dr Low nephrology Neuropathy 223539270 G62 .9 On lyrica 50mg tidDoes well Gastroesop hageal reflux disease without esophagitis 450837052 K21.9 On pantaprozo leDoes wellTake as needed Hyperlipidemia 19919838 E78.5 On atorvastat in 20mg dailyNot on vascepa Get labs Insomnia 825939093 G47.0 0 On ambien, renewed 11/15/2023 , resent as he did not want it at the [facility] Retinal ar amy occlusion 213886347 H34.9 Seen by Retina Greenwald 05/07/18: Dr Coleman, noted to have a Hallenhors t plaque Keep apt wtih Dr Collado who he now sees Anemia 179936604 D64.9 Is on iron Does well Osteonecro sis of head of femur 332277231 M87.[address] Barfield 01/15/2020 , no surgery done Does well Serum brielle min B12 below reference range 856184910 R79.89 Pain in right hand [address] 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, [address] [address] 03/13/2024 14:23:11 03/13/2024 14:57:52 Liver mass 463184752 R16.0 Get a referral to oncologist CT A/P 12/27/[address] 01/04/2023 MRI Abd: 01/27/2023 CT 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/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CT A/P 06/29/2023 : Dr Khanh Cassidy 09/27/2023 , be on megaceDr Khanh 01/17/2024 Screening - NAD 79128426 3 Z13.9 C-scope: 10/16/16: Dr Nilda hernandez [...] his understand ing of above Heart murmur 13867740 R0 1.[address] Harris Essential hypertension 36922146 I10 BP much better today 06/05/2022 On ASAOn amlodipine 5mg dailyNot on chlorthali done 25mg 1/[address] Low 10/04/2021 On nadolol 20mg daily OK to renew 06/05/2022 Off lasixOff losartan 25mg daily as per Dr Harris 05/30/2022 Get labsHe does see Dr Low Type 2 anish betes mellitus without complication 484025937 E11.9 On trescibaOn Fiasp Sees Dr Dhillon 06/02/2022 next 11/27/[address] Powell podiatryNe eds to see eye MDGet labs from Dr Dhillon Thrombotic thrombocytopenic purpura 97250174 M31.[address] Jorge 10/05/21No w sees Dr Jimenez repeat labs Malignant neoplasm of urinary bladder 522256894 C67.9 s/p surgery by Dr Daniels, in 06/[address] Daniels Smoker 78348597 F17.200 Advised to quit LDCT 09/26/2019 CT chest 06/06/2021 : Cirrhosis of the liverLDCT 09/24/2023 4: Dr Garcia AAA: 07/30/2023 Liver enzy mes level above reference range 394853586 R74.[address] Silverio , but now sees Dr Ledezma US liver 05/17/2021 : cirrhosis, cholelithi asisGet labs Chronic ki dney disease 871545137 N18.9 Dr Low nephrology Neuropathy 618324455 G62 .9 On lyrica 50mg tidDoes well Gastroesop hageal reflux disease without esophagitis 592441979 K21.9 On pantaprozo leDoes wellTake as needed Hyperlipidemia 12495840 E78.5 On atorvastat in 20mg dailyNot on vascepa Get labs Insomnia 629570148 G47.0 0 On ambienDoes well Retinal ar amy occlusion 945456530 H34.9 Seen by Retina Greenwald 05/07/18: Dr Coleman, noted to have a Hallenhors t plaque Keep apt wtih Dr Collado who he now sees Anemia 391498455 D64.9 Is on iron Does well Osteonecro sis of head of femur 688985462 M87.[address] Barfiedl 01/15/2020 , no surgery done Does well Serum brielle min B12 below reference range 849151187 R79.89 Pain in right hand [address] 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 Abnormal g ait due to impairment of balance 000076381 R26.89 Feels that his gait is getting worse, he did have cerebellar surgery 17 years ago and feels that this contribute s to it, will get PT OV 03/20/2023 : Get PT renewed Skin lesion 38411997 L98 .9 Multiple slightly raised dark macules noted on the R>L abd wallRefer to Dr Troy Simmons last OV 09/25/2023 [id number] Shay hays MD [facility] Internal Med [facility] [address] [place] [address] 04/08/2024 12:17:56 04/08/2024 13:09:48 Liver mass 107411795 R16.0 Get a referral to oncologist CT A/P 12/27/[address] 01/04/2023 MRI Abd: 01/27/2023 CT 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/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CT A/P 06/29/2023 : Dr Khanh Cassidy 09/27/2023 , be on megaceDr Khanh 01/17/2024 Screening - NAD 38992728 3 Z13.9 C-scope: 10/16/16: Dr Nilda hernandez [...] his understand ing of above Heart murmur 57629167 R0 1.[address] Castelan/p hospital d/c 03/28/2024 , s/p stent, apt with Dr Harris is on 04/10/2024 Essential hypertension 76212976 I10 BP much better today 06/05/2022 Off ASAOff amlodipine 5mg dailyOn plavixOn isosorbide ER 60mg dailyNot on chlorthali done 25mg 1/[address] Low 10/04/2021 On nadolol 20mg daily OK to renew 06/05/2022 Off lasixOff losartan 25mg daily as per Dr Harris 05/30/2022 Get labsHe does see Dr Low Type 2 anish betes mellitus without complication 573422621 E11.9 On trescibaOn FiaspAs per hx 04/08/2024 , his ACCU was 112 today, yesterday was [address] Darya Powell podiatryNe eds to see eye MD Dr Narvaez eye MD in 05/08/2024 , as per his history 04/08/[address] Dhillon Thrombotic thrombocytopenic purpura 13891522 M31.[address] Jorge 10/05/21No w sees Dr Cassidy on 04/10/2024 Get repeat labs Malignant neoplasm of urinary bladder 977717167 C67.9 s/p surgery by Dr Daniels, in 06/[address] Daniels, next apt in 09/2024On flomax but states that this has not helped, he will make his apt again with urology Smoker 44283292 F17.200 Advised to quit LDCT 09/26/2019 CT chest 06/06/2021 : Cirrhosis of the liverLDCT 09/24/2023 4: Dr Garcia AAA: 07/30/2023 Liver enzy mes level above reference range 515763366 R74.[address] Silverio , but now sees Dr Ledezma US liver 05/17/2021 : cirrhosis, cholelithi asisGet labs Chronic ki dney disease 787758644 N18.9 Dr Low nephrology Neuropathy 598298661 G62 .9 On lyrica 50mg tidDoes well Gastroesop hageal reflux disease without esophagitis 334135571 K21.9 On pantaprozo leDoes wellTake as needed Hyperlipidemia 65572727 E78.5 On atorvastat in 20mg dailyNot on vascepa Get labs Insomnia 299414276 G47.0 0 On ambienDoes well Retinal ar amy occlusion 694686823 H34.9 Seen by Retina Greenwald 05/07/18: Dr Coleman, noted to have a Hallenhors t plaque Keep apt wtih Dr Collado who he now sees Anemia 988610705 D64.9 Is on iron Does well Osteonecro sis of head of femur 094980540 M87.[address] Barfield 01/15/2020 , no surgery done Does well Serum brielle min B12 below reference range 933684796 R79.89 Pain in right hand [address] 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 Abnormal g ait due to impairment of balance 434475159 R26.89 Feels that his gait is getting worse, he did have cerebellar surgery 17 years ago and feels that this contribute s to it, will get PT OV 03/20/2023 : Get PT renewed Skin lesion 28364713 L98 .9 Multiple slightly raised dark macules noted on the R>L abd wallRefer to Dr Troy Simmons last OV 09/25/2023 Transition of care 17156 55069 105 Z75.8 Health Concerns Section Related Observation [...] GOLD PLUS (MEDICARE REPLACEMENT HMO) Daniel Treviño [id number] Daniel Treviño 09/25/2023 1 [employer] - GOLD PLUS (MEDICARE REPLACEMENT HMO) Daniel Treviño [id number] Daniel Treviño 11/15/2023 1 [employer] - GOLD PLUS (MEDICARE REPLACEMENT HMO) Daniel Treviño [id number] Daniel Treviño 03/13/2024 1 [employer] - GOLD PLUS (MEDICARE REPLACEMENT HMO) Daniel Treviño [id number] Daniel Treviño 04/08/2024 1 [employer] - GOLD PLUS (MEDICARE REPLACEMENT HMO) Daniel Treviño [id number] Daniel Treviño Notes Date Note Type Note Provider Name and Address Organization Details Recorded Time 024 text/ht ml patient here for excision skin lesion so right chest wall and right upper thigh and also destruction neurofibroma mid back Chantell jefferson MD [address], [place], [address], [facility] [employer] 09/06/2023 14:18:33 024 text/ht ml No complaints Chantell jefferson MD [address], [place], [address], [place] [facility] 09/25/2023 10:48:49 024 text/ht ml Here to establish carePrior PMD Dr Jones and Marybeth Carolina Hx:CirrhosisBladder cancerDMIIHTNGERDInsomniaReviewed social family and surgical historyHere to discuss above and also wishes to get his tramadol renewed by this office OV 06/07/17:Here for his routine aptHe states that the credit officer gave him the gabapentin and this did [...] has no recent labs Shay Hooper MD [address] [place] [address], [address], [place], [address], [facility] 11/20/2023 15:02:08 025 text/ht ml Here to establish carePrior PMD Dr Jones and Marybeth Carolina Hx:CirrhosisBladder cancerDMIIHTNGERDInsomniaReviewed social family and surgical historyHere to discuss above and also wishes to get his tramadol renewed by this office OV 06/07/17:Here for his routine aptHe states that the credit officer gave him the gabapentin and this did [...] the labs with Dr Khanh Hooper MD [address] [place] [address], [address], [place], [address], [place] [facility] 03/26/2024 18:30:33 025 text/ht ml Here to establish carePrior PMD Dr Jones and Marybeth Carolina Hx:CirrhosisBladder cancerDMIIHTNGERDInsomniaReviewed social family and surgical historyHere to discuss above and also wishes to get his tramadol renewed by this office OV 06/07/17:Here for his routine aptHe states that the credit officer gave him the gabapentin and this did [...] he did do the labs with Dr Cassidy OV 04/08/2024: Here for his post hospital f/u, did have to have stent for CAD and also was told he did have a pneumonia, he states that he is doing much better now Shay Hooper MD [address] [place] [address], [place] [address], [place], [address], [facility] 04/08/2024 14:04:50
--- OUTSIDE RECORDS SUMMARY | 2024-05-18 11:58 | XMS_ITS | Clinical Summary ---
Author Organization [facility] Facility Address [address] [address] Care Team Providers Care Teletype Mechanic Name Role Phone Shay Hooper MD Primary Care Provider [phone] Allergies Active Allergy Reactions Criticality Noted Date Comments Codeine 05/10/2021 Penicillins 05/10/2021 Medications torsemide (DEMADEX) 10 MG tablet Take 1 tablet (10 mg total) by mouth every morning 90 tablet 1 2 Active ergocalciferol 1.25 MG (98885 UT) capsule Take 1 capsule (50,000 Units [...] Department Care Team Description 05/08/2024 Documentation Only [facility], [address] [address] Emiliano Washington DO 2024 2:45 PM CDT Office Visit [facility], [facility] [address] [facility] [address] [place] [address] Emiliano Washington DO Stage 3 chronic kidney [...] not otherwise specified; Tobacco use [address] [facility], [facility] [address] [facility] [address] [place] [address] Cally Kruger CMA 05/02/2024 Documentation Only [facility] [place], [address] [address] Emiliano Washington, 04/25/2024 Documentation Only [facility] [place], [address] [address] Emiliano Washington, 04/25/2024 Documentation Only [facility] [place], [address] [address] Emiliano Washington, 03/26/2024 Documentation Only 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
--- OUTSIDE RECORDS SUMMARY | 2024-05-18 11:58 | XMS_ITS | Clinical Summary ---
Author Organization [facility] Address [address] [place] [address] Phone Care Team Providers Care Cloud Security Architect Name Role Phone Provider, Not On File [...] and at bedtime. Active ergocalciferol (VITAMIN D) 92055 UNIT Capsule Take 50,000 Units by mouth. [...] this topic Medical Devices Implanted Type Area Manager Acute Device Identifier Shelf Expiration Date Model / Serial / Lot Implant Nasal 16mm Steroid Release Zip Tie Propel Mometasone Furoate 370 Mcg Mini 4mm - [id number] Implanted:Qty: 1 on 10/03/2022 by Lalito Acuña MD at [facility] IMPLANT Left: [employer] 09/28/2023 [id number] / [id number] / [id number] Implant Nasal 16mm Steroid Release Zip Tie Propel Mometasone Furoate 370 Mcg Mini 4mm - [id number] Implanted:Qty: 1 on 10/03/2022 by Lalito Acuña MD at [facility] IMPLANT Right: [employer] 11/09/2023 [id number] / [id number] / [id number] Explanted Type Area Manager Acute Device Identifier Shelf Expiration Date Model / Serial / Lot Implant Nasal 16mm Steroid Release Zip Tie Propel Mometasone Furoate 370 Mcg Mini 4mm - [id number] Explanted:Qty: 1 on 10/03/2022 at [facility] IMPLANT Right: [employer] 09/28/2023 [id number] / [id number] / [id number] Insurance MEDICARE C [employer] Care Teams Cloud Security Architect Relationship Specialty Start Date End Date Provider, Not On File [place] PCP - General 10/03/22
--- OUTSIDE RECORDS SUMMARY | 2024-05-18 11:58 | XMS_ITS | Encounter Summary ---
Author Organization [facility] Health Address [address] [facility] [place] [address] Care Team Providers Care Remediation Technician Name Role Phone Shay Hooper MD Primary Care Provider Encounter Details Date Type Department Care Team (Late st Contact Info) Description 08/01/2018 [facility] Outpatient Visit [facility] [address] [place] [address] Edwin Horner MD [address] [place] [phone] Social History Tobacco Use Types Packs/Day [...] Visit [facility] [place] [address] [facility], [place] [address] Phyllis Pereira, AUTO DAMAGE TRAINEE-CALL CENTER NURSE [address] [place] [address] [facility] [place] [address] documented as of this encounter Visit Diagnoses Not on filedocumented in this encounter Care Teams Remediation Technician Relationship Specialty Start Date End Date Shay Hooper MD [address] [phone] PCP - General Internal Medicine 11/14/17 documented as of this encounter
--- OUTSIDE RECORDS SUMMARY | 2024-05-18 11:58 | XMS_ITS | Patient Health Record ---
Author Organization [facility] Address [address] [place] [phone] Care Team Providers Care Harnessmaker Name Role Phone Azeem Vizcaino Unavailable [phone] Reason For Referral No Information Plan Of Treatment No Information Insurance Providers Payer Name Payer Address Payer Phone Subscriber Number Group Number Insured Name Patient Relationship to Insured Coverage Start Date Coverage End Date [employer] [address] [address] [place] [address] [id number] Daniel Treviño Self - patient is the insured
--- OUTSIDE RECORDS SUMMARY | 2024-05-18 11:58 | XMS_ITS | Clinical Summary ---
Author Organization [facility] [employer] Address [address] [place] [address] Care Team Providers Care Typesetter Apprentice Name Role Phone Shay Hooper MD Primary Care Provider Source Comments [facility],non-owned Affiliates and Associated Physician Practices is amultiple site organization consisting of ambulatory clinics and hospital sitesin [place], [place], [place] and [place]. This disclosure is being madepursuant to the Care Everywhere program and may not contain all information available regarding this patient. 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 Plan of Treatment Upcoming Encounters Date Type Department Care Team (Late st Contact Info) Description 05/08/2025 11:00 AM CDT Office Visit [facility] - [place] [address] [facility], [place] [address] Phyllis Pereira, METAL TANK ERECTOR-MYSQL DATABASE ADMINISTRATOR [address] [facility] [place] [address] Health Maintenance Due Date Last Done Comments [...] the bathroom Medical Devices Implanted Type Area Abalone Processor Device Identifier Shelf Expiration Date Model / Serial / Lot Patch Tien Eptfe 1 X 9 X .5mm - [id number] Implanted:Qty: 1 on 08/07/2018 by Angelo Wu MD at [facility] Right: Carotid [employer] 05/30/2023 [id number] / [id number] / Procedures Procedure Name Priority Date/Time Associated Diagnosis Comments GLUCOSE - POINT OF CARE Routine 08/08/2018 7:16 AM CDT from Last 3 Months or Most Recently Relevant to Health Maintenance Results * (ABNORMAL) GLUCOSE - POINT OF CARE (08/08/2018 7:16 AM CDT) [facility] Glucose WB/POC 265(H) 70 - 106 mg/dL 08/08/2018 8:34 AM CDT [facility] Specimen Type Venous 08/08/2018 8:34 AM CDT [facility] Blood BLOOD SPECIMEN / Unknown 08/08/2018 7:16 AM CDT 08/08/2018 8:34 AM CDT Narrative [facility] - 08/08/2018 8:34 AM CDT (2) Provider Notified Angelo Wu MD LAB - POINT OF CARE ORDERABLES [facility] [address] [place] [address] from Last 3 Months or Most Recently Relevant to Health Maintenance Advance Directives * Full Code (Latest Code Status on File) Date Activated Date Inactivated Comments 08/07/2018 5:20 PM 08/08/2018 1:06 PM Care Teams Typesetter Apprentice Relationship Specialty Start Date End Date Shay Hooper MD [address] [facility] [address] [place] [address] PCP - General Internal Medicine 11/14/17
--- OUTSIDE RECORDS SUMMARY | 2024-05-18 11:58 | XMS_ITS | Clinical Summary ---
Author Organization [facility] Address [address] [place] [address] Care Team Providers Care Inking Machine Tender Name Role Phone Shay Hooper MD Primary [...] Type Department Care Team Description 2024 Abstract [facility] - [place] [address] [place] [address] Tommy Cassidy MD 05/05/2024 Orders Only [facility] [place] [address] [place] [address] Tommy Cassidy MD Benign hypertension 05/02/2024 Telephone [facility] [place] [address] [place] [address] Tommy Cassidy MD Surgery Questions 04/21/2024 Refill [facility] [place] [address] [place] [phone] Amelia Canseco MD 04/21/2024 Orders Only [facility] - [place] [address] [place] [address] Tommy Cassidy MD Benign hypertension 04/10/2024 9:15 AM CORK WIRER Office Visit [facility] - [place] [address] [place] [phone] Tommy Cassidy MD Hepatocarcinoma (CMS/HCC) (Primary Dx) 04/07/2024 Orders Only [facility] - [place] [address] [place] [address] Tommy Cassidy MD Benign hypertension 03/25/2024 Orders Only [facility] - [place] [address] Tommy Cassidy MD 03/24/2024 Telephone [facility] - [place] [address] [place] [phone] Tommy Cassidy MD Breathing Problem 03/24/2024 Orders Only [facility] - [place] [address] [place] [phone] Tommy Cassidy MD Hepatocarcinoma (CMS/HCC); Benign hypertension 03/21/2024 Orders Only [facility] - [place] [address] [place] [phone] Tommy Cassidy MD 03/20/2024 Orders Only [facility] - [place] [address] [place] [phone] Tommy Cassidy MD Need for hepatitis B screening test (Primary Dx) 03/13/2024 9:00 AM CORK WIRER Office Visit [facility] [address] [place] [address] Tommy Cassidy MD Hepatocarcinoma (CMS/HCC) (Primary Dx) 03/13/2024 Orders Only [facility] - [place] [address] [place] [phone] Tommy Cassidy MD 03/10/2024 Orders Only [facility] - [place] [address] [place] [address] Tommy Cassidy MD Hepatocarcinoma (CMS/HCC); Benign hypertension 02/25/2024 Orders Only [facility] - [place] [address] [place] [address] Tommy Cassidy MD Hepatocarcinoma (CMS/HCC); [...] Comments Blood Pressure 111/57 04/10/2024 9:23 AM CORK WIRER Pulse 70 04/10/2024 9:23 AM CORK WIRER Temperature 35.7 C (96.2 F) 04/10/2024 9:23 AM CORK WIRER Respiratory Rate 15 04/10/2024 9:23 AM CORK WIRER Oxygen Saturation 96% 04/10/2024 9:23 AM CORK WIRER Inhaled Oxygen Concentration - - Weight 79.8 kg (176 lb) 04/10/2024 9:23 AM CORK WIRER Height 180.3 cm (5' 11 ) 04/09/2023 8:51 AM CORK WIRER Body Mass Index 24.55 04/09/2023 8:51 AM CORK WIRER Plan of Treatment Upcoming Encounters Date Type Department Care Team (Late st Contact Info) Description 05/19/2024 Orders Only [facility] [address] [place] [address] Tommy Cassidy MD [address] [place] [address] [employer] [address] [place] [phone] Benign hypertension 05/30/2024 9:00 AM CDT Office Visit [facility] [address] [place] [address] Tommy Cassidy MD [facility] [address] [place] [phone] Health Maintenance Due Date Last Done [...] Tdap) 02/06/2027 Medical Devices Implanted Type Area Vp Director Of Creative Strategy Device Identifier Shelf Expiration Date Model / Serial / Lot Stents Bilateral Legs Procedures Procedure Name Priority Date/Time Associated Diagnosis Comments QUANTIFERON TB CONFIRMATION Routine 03/24/2024 11:51 AM CORK WIRER COMPREHENSIVE METABOLIC PANEL Routine 03/21/2024 1:12 PM CORK WIRER BASIC METABOLIC PANEL Routine 03/21/2024 1:08 PM CORK WIRER CBC WITH DIFFERENTIAL Routine 03/21/2024 1:07 PM CORK WIRER CBC WITH DIFFERENTIAL Routine 03/13/2024 4:12 PM CORK WIRER BASIC METABOLIC PANEL Routine 03/13/2024 4:11 PM CORK WIRER from Last 3 Months Results * QUANTIFERON TB CONFIRMATION (03/24/2024 11:51 AM CORK WIRER) Blood us Tommy Cassidy MD CHEMISTRY ORDERABLES Final Resu lt * COMPREHENSIVE METABOLIC PANEL (03/21/2024 1:12 PM CORK WIRER) Blood us Tommy Cassidy MD CHEMISTRY ORDERABLES Final Resu lt * BASIC METABOLIC PANEL (03/21/2024 1:08 PM CORK WIRER) Only the most recent of2 resultswithin the time period is included. Blood Tommy Cassidy MD CHEMISTRY ORDERABLES Final Resu lt * CBC WITH DIFFERENTIAL (03/21/2024 1:07 PM CORK WIRER) Only the most recent of2 resultswithin the time period is included. Blood Tommy Cassidy MD HEMATOLOGY ORDERABLES Final Res ult from Last 3 Months Insurance [employer] [facility] Member Subscriber Plan / Payer (Ef fective 2024-Present) Name:Daniel Treviño Relation to Subscriber:Self Name:Daniel Treviño Payer ID:Not on file Type:[employer] Address: [place] [address] [employer] [facility] Advance Directives For more information, please contact: [phone] * Full Code (Latest Code Status on File) Date Activated Date Inactivated Comments 04/04/2023 11:13 AM 04/04/2023 6:32 PM Care Teams Inking Machine Tender Relationship Specialty Start Date End Date Shay Hooper MD PCP - General Internal Medicine 01/01/23
--- OUTSIDE RECORDS SUMMARY | 2024-05-18 11:58 | XMS_ITS | CONTINUITY OF CARE DOCUMENT ---
Author Name shea valdivia Address Unknown Organization [facility] Address [address] [facility] [address] [place] [address] Phone [phone] Care Team Providers Care Teletype Or Varitype Keyboard Operator Name Role Phone Rene Harris MD Unavailable [phone] López Powell DPM Unavailable [phone] MARSHAL CONDON MD Unavailable PROBLEMS Condition Status Date Provider Notes HTN essential active Rene Harris MD Cardiology examination active Rene Harris MD Family History of CVA or Stroke: active ? Beulah Harris MD Family History of Hypertension: active ? Kale Harris MD Family History of Sudden Car diac : active ? Rene Harris MD Diabetic foot ulcer, great toe, left active eRne Harris MD Hx of Stroke and TIA [...] Rene Harris MD Syncope active Daniela Ventimiglia TRANSFORMATION SPECIALIST Liver cancer, primary active Rene Burrows CAD s/p stents active Rene Harris MD Cardiology examination active Rene Harris MD Facial numbness active Rene Harris MD Aortic insufficiency active Rene Harris MD Aortic stenosis active Rene Harris MD LBBB active Rene Harris MD ENCOUNTERS Date Type Provider Location Encounter Diag nosis - In-person encounter Office Visit Rene Harris MD [place] [facility] Cardiology examinationFacial numbnessAortic insufficiencyAortic stenosisLBBB - In-person encounter Office Visit Rene Harris MD [place] CAD s/p stents - In-person encounter Office Visit Rene Harris MD [place] [facility] - In-person encounter Office Visit Rene Harris MD [facility] Liver cancer, primary - In-person encounter Office Visit Rene Harris MD [place] Syncope - In-person encounter Office Visit Rene Harris MD [place] - In-person encounter Office Visit Rene Harris MD [facility] Cirrhosis, alcoholic, liverSystolic murmurAbnormal EKG - In-person encounter Office Visit Rene Harris MD [facility] PVD with ulcer - In-person encounter Office Visit Rene Harris MD [facility] Carotid artery disea se - In-person encounter Office Visit Rene Harris MD [facility] Hyperlipidemia - In-person encounter Office Visit Rene Harris MD [facility] Tobacco abuse - In-person encounter Office Visit Rene Harris MD [facility] Cardiology examinationFamily History of CVA or Stroke:Family History of Hypertension:Family History of Sudden Cardiac :Diabetic foot ulcer, great toe, leftHx of Stroke and TIADiabetes mellitus VITAL SIGNS Date Observation Value Provider Body Mass Index (Ratio) 24.96 kg/m2 Kale Harris MD blood pressure, diastolic 66 mm[Hg] [facility], systolic 135 mm[Hg] Perla [facility] oxygen saturation, oximetry 97 % [facility] pulse rate 71 /min [facility] respiratory rate E&M 12 /min [facility] weight E&M 179 [lb_av] [facility] height E&M 71 [in_i] [facility] blood pressure, cuff size regular ivory [facility] Body Mass Index (Ratio) 26.22 kg/m2 Kale Harris MD pulse rate 67 /min [facility] blood pressure, diastolic 52 mm[Hg] Gregory yla [facility] blood pressure, systolic 101 mm[Hg] Alem trini [facility] oxygen saturation, oximetry 95 % Wanda [place] weight E&M 188 [lb_av] Wanda [facility] height E&M 71 [in_i] Wanda [facility] Body Mass Index (Ratio) 26.36 kg/m2 [...] rret blood pressure, systolic 144 mm[Hg] [facility] pulse rate 72 /min Mikey oxygen [...] lder height E&M 71 [in_i] Radha [facility] Body Mass Index (Ratio) 29.01 kg/m2 [...] pressure, diastolic 80 mm[Hg] Trey del rosario [place] blood pressure, systolic 152 mm[Hg] Xander sales [place] oxygen saturation, oximetry 98 % Cynthia Olga Lidia respiratory rate E&M 17 /min Cynthia Olga Lidia pulse rate 72 /min Cynthia Olga Lidia blood pressure, cuff size regular Trey del rosario Olga L[place] weight E&M 193 [lb_av] Cynthia Olga Lidia height E&M 71 [in_i] Cynthia [place] Body Mass Index (Ratio) 26.64 kg/m2 Kale [...] Rios respiratory rate E&M 20 /min Radha wganer pulse rate 88 /min Radha Green lder weight E&M 195 [lb_av] Radha Green lder height E&M 71 [in_i] Radha Green lder ALLERGIES Allergy Name Onset Date Reaction Criticality Status TORSEMIDE Broke out in blisters Low Criticalit y active PCN Low Criticality active CODIENE gi upset Low Criticality active HISTORY OF MEDICATION USE Medication Status Instructions Dates Provider Indications Com ments clopidogrel 75 mg tablet active TAKE 1 TABLET BY MOUTH ONCE DAILY Wanda Hugo nadolol 40 mg tablet active Christine Cai [...] completed once a week - Cynthia Duggan Trehuang FlexTouch U-100 100 unit/mL (3 mL) insulin [...] MD cigarette use yes Rene Harris M D smoking status Current every da y smoker [...] MD social history E&M S moking History: Rick johnson currently smokes every day. Rick johnson has been counseled to quit. Daniela Sanches [facility] social history reviewed E&M revi ewed - no changes required Daniela Sanches [facility] smoking/tobacco cess ation, patient education and [...] ation, patient education and counseling yes Radha Rois number of years as a smoker 50 [...] E&M revi ewed - no changes required eRne Harris MD smoking/tobacco cess ation, patient education and counseling yes Antonella Fareed number of years as a smoker 50 a Antonella Guerrier smoking history, tot al pack/day 1/2 ppd Antonella Fareed cigarette use yes Antonella Deejay looney smoking status Current every da y smoker Antonella Fareed social history E&M S moking History: P atient currently smokes every day. P atient has been counseled to quit. Rene Harris MD social history reviewed E&M revi ewed - no changes required Rene Harris MD smoking/tobacco cess ation, patient education and counseling yes Cynthiayariel Duggan number of years as a smoker 50 a Cynthia [place] smoking history, tot al pack/day 1/2 ppd Cynthia [place] cigarette use yes Cynthia [place] smoking status Current every da y smoker [...] Tim bhat ID [employer] H[employer] HMO [id number] ADVANCE DIRECTIVES Name Date DISCUSSED - NO DECISION MADE TREATMENT PLAN Date Name Performer [id number],C, H is last echo showed EF is 65%. His Carotid study showed <50% stenosis of the right ICA, 50 - 69% stenosis of the left ICA, Possible right subclavian stenosis. Follows with Dr. Wu. [facility] [id number],C,P t states that he had a recent syncopal episode with slurred speech this past Mother's Day. Denies chest pain and palpitations. Does c/o SOB. Did not return back to the hospital as was there month prior with similar episode. Will arrange a 2 week tele monitor and Stress Reg. [facility] [id number],S, H is updated medication list for this problem includes: Atorvastatin 40 Mg Tablet (Atorvastatin) ..... Take 1 tablet once a day Lipitor 40 Mg Tablet (Atorvastatin) ..... 1 tablet once a day [facility] [id number],S,W ill arrange RPM. BP today: 136/73 P rior BP: 140/70 (08/08/2021) His updated medication list for this problem includes: Amlodipine 5 Mg Tablet (Amlodipine) ..... Take 1 tablet by mouth once daily Lasix 20 Mg Tablet (Furosemide) ..... Take 1 once a day Aspirin 81 Mg Tablet,delayed Release (dr/ec) (Aspirin) ..... 1 tablet by mouth once a day [facility] [id number],S,S till smokes 1PPD. The Patient was reencouraged to stop smoking. [facility] [id number],C,H e has been having fluctuating BPs and he does not feel okay taking Losartan. Will stop Losartan 20mg and start Amlodipine to see if sx resolve. Will hopefully see him in the office soon. Rene Harris MD [id number],C,T he Patient was reencouraged to stop smoking. Rene Harris MD [id number],C,T he Patient was reencouraged to stop smoking. Rene Harris MD [id number],C,per Dr.B Kale Harris MD [id number],B,Ulcers have h ealed. Rene Harris MD [id number],C,E cho showed mild aortic stenosis. Otherwise no significant sx. Continue medical therapy. Rene Harris MD [id number],N,N ew PRWP on EKG today compared to previous. Will check echocardiogram. Rene Harris MD [id number],C,W ill obtain lipids from [facility]'s office. H is updated medication list for this problem includes: Atorvastatin 40 Mg Tablet (Atorvastatin) ..... Take 1 tablet once a day Lipitor 40 Mg Tablet (Atorvastatin) ..... 1 tablet once a day Rene Harris MD [id number],S, T he Patient was reencouraged to stop smoking. Rene Harris MD [id number],S,H gldays systolic murmur appreciated on exam. Will recheck echo to monitor progression of aortic stenosis. Rene Harris MD [id number],C, H as had interventions done on the [...] Cardiology:no recurrence Rene hu MD Cardiology:per oncol ogy and interventional radiology Rene Harris MD Cardiology: H is last echo showed EF is 65%. His Carotid study showed <50% stenosis of the right ICA, 50 - 69% stenosis of the left ICA, Possible right subclavian stenosis. Follows with Dr. Wu. Daniela Sanches [facility] Cardiology:Pt states that he had a recent syncopal episode with slurred speech this past Mother's Day. Denies chest pain and palpitations. Does c/o SOB. Did not return back to the hospital as was there month prior with similar episode. Will arrange a 2 week tele monitor and Stress Reg. Danielarain Sanches [facility] Cardiology: H is updated medication list for this problem includes: Atorvastatin 40 Mg Tablet (Atorvastatin) ..... Take 1 tablet once a day Lipitor 40 Mg Tablet (Atorvastatin) ..... 1 tablet once a day Danielarain Sanches [facility] Cardiology:Will arrlis PICKARD. BP today: 136/73 P rior BP: 140/70 (08/08/2021) His updated medication list for this problem includes: Amlodipine 5 Mg Tablet (Amlodipine) ..... Take 1 tablet by mouth once daily Lasix 20 Mg Tablet (Furosemide) ..... Take 1 once a day Aspirin 81 Mg Tablet,delayed Release (dr/ec) (Aspirin) ..... 1 tablet by mouth once a day Danielarain Sanches [facility] Cardiology:Still smo kes 1PPD. The Patient was reencouraged to stop smoking. Daniela Sanches [facility] Telehealth:He has be en having fluctuating [...] Harris MD Cardiology:Will obta in lipids from [facility]'s office. H is updated medication list for [...] PT and DP. Will schedule AIF at [facility]. Rene Harris MD Cardiology [place] [...] PANE L W/EGFR AIF Intervention - S V Arterial - SENSILASE HISTORY OF PROCEDURES Procedure Date Procedure Name Provider Procedure Notes S tatus Complex e/m visit add on Rene Harris MD completed EKG Rene Harris MD completed Complex e/m visit add on Rene Harris MD completed EKG Rene Harris MD completed EKG Rene Harris MD completed
--- OUTSIDE RECORDS SUMMARY | 2024-05-18 11:58 | XMS_ITS | Encounter Summary ---
Author Organization [facility] Address [address] [place] [address] Care Team Providers Care Department Store General Manager Name Role Phone Shay Hooper MD Primary Care Provider Encounter Details Date Type Department Care Team (Late Contact Info) Description 08/01/2018 [facility] Outpatient Visit [facility] [address] [place] [address] [place] [address] [address] Social History Tobacco Use Types Packs/Day Years [...] Visit [facility] [place] [address] [facility], [place] [address] Phyllis Pereira, TIME STUDY OBSERVER-RN HYPERBARIC [address] [place] [address] [facility] [place] [address] documented as of this encounter Visit Diagnoses Not on filedocumented in this encounter Care Teams Department Store General Manager Relationship Specialty Start Date End Date Shay Hooper MD [address] [facility] [address] [place] [address] PCP - General Internal Medicine 11/14/17 documented as of this encounter
--- OUTSIDE RECORDS SUMMARY | 2024-05-18 11:58 | XMS_ITS | Encounter Summary ---
Author Organization [facility] Address [address] [place] [address] Care Team Providers Care Generation Technologist Name Role Phone Shay Hooper MD Primary Care Provider Encounter Details Date Type Department Care Team (Late st Contact Info) Description 10/23/2018 Lab Requisition [facility] Care Pathology Lab [address] [place] [address] Luna Hernandez MD [address] [place] [address] Illness Social History Tobacco Use Types Packs/Day [...] Description 05/08/2025 11:00 AM CDT Office Visit [facility] [address] [facility], [place] [address] Phyllis Pereira, STREETCAR MOTORMAN-AMMUNITION STOREKEEPER [address] [facility] [address] [place] [address] documented as of this encounter Procedures Procedure Name Priority Date/Time Associated Diagnosis Comments PATHOLOGY TISSUE Routine 10/22/2018 3:19 PM CDT Illness documented in this encounter Results * PATHOLOGY TISSUE (10/22/2018 3:19 PM CDT) Case Report Surgical Pathology Report Case: [id number] Authorizing Provider: Luna Hernandez MD Collected: 10/22/2018 03:19 PM Ordering Location: [facility] Pathology Lab Received: 10/23/2018 03:19 PM Pathologist: Floyd Rodriguez MD Specimen: Slide Consultation, [id number] 10/24/2018 10:17 AM T U PATHOLOGY LAB Final Diagnosis Urine, voided, thin prep, cytology: -Negative for high-grade urothelial neoplasia -Slight chronic inflammtion 10/24/2018 10:17 AM T [facility] PATHOLOGY LAB Microscopic Description and Comment Performed. 10/24/2018 10:17 AM CDT U PATHOLOGY LAB Clinical History History of bladder cancer, cystoscopy negative. 10/24/2018 10:17 AM T [facility] PATHOLOGY LAB Gross Description Prepared slides received from [place] [facility] labeled [id number]. All material will be returned. 10/24/2018 10:17 AM T [facility] PATHOLOGY LAB Disclaimer The performance characteristics of all immunohistochemical and indirect immunofluorescence stains (if any) cited in this report were determined by the Histopathology Laboratory of [facility]. Some of these tests were developed by [...] attending (teaching) pathologist. 10/24/2018 10:17 AM CDT [facility] PATHOLOGY LAB Embedded Images 10/24/2018 10:17 AM CDT [facility] PATHOLOGY LAB Pathology/Cytolo gy SURGICAL PATHOLOGY CONSULTATION AND REPORT ON REFERRED SLIDES PREPARED ELSEWHERE / Unknown 10/22/2018 3:19 PM CDT 10/23/2018 3:19 PM CDT Luna Hernandez MD LAB - PATHOLOGY/CYTO LOGY ORDERABLES Performing Organization Address City/State/[facility] Co de Phone Number [facility] PATHOLOGY LAB [address] [phone] documented in this encounter Visit Diagnoses Diagnosis Illness Other unknown and unspecified cause of morbidity or mortality documented in this encounter Care Teams Generation Technologist Relationship Specialty Start Date End Date Shay Hooper MD [address] [phone] PCP - General Internal Medicine 11/14/17 documented as of this encounter
--- OUTSIDE RECORDS SUMMARY | 2024-05-18 11:58 | XMS_ITS | Referral Summary ---
Author Organization [facility] Address [address] [place] [address] Care Team Providers Care Rock Mason Apprentice Name Role Phone Krish Hooper MD Primary Care Provide r Jorge Jorge DO Unavailable [phone] Rene Harris MD Unavailable Encounters Date Type Department Care Team Description 04/01/2024 Orders Only [facility] Medical Group Cardiology [address] [place] [address] Nimisha Ryan MD from Last [...] on file Legal Sex Male 7:05 PM COUNTER FORMER Gender Identity Not on file Sexual Orientation Not on file Last Filed Vital Signs Vital Sign Reading Time Taken Comments Blood Pressure 130/54 02/13/2024 8:04 AM COUNTER FORMER Pulse 67 02/13/2024 8:04 AM COUNTER FORMER Temperature 36.9 C (98.5 F) 02/13/2024 8:04 AM COUNTER FORMER Respiratory Rate 18 02/13/2024 8:04 AM COUNTER FORMER Oxygen Saturation 99% 02/13/2024 8:04 AM COUNTER FORMER Inhaled Oxygen Concentration - - Weight 83.5 kg (184 lb) 02/12/2024 3:20 PM COUNTER FORMER Height 180.3 cm (5' 11 ) 02/12/2024 3:20 PM COUNTER FORMER Body Mass Index 25.66 02/12/2024 3:20 PM COUNTER FORMER Plan of Treatment Not on file Medical Devices Implanted Type Area Defence Force Senior Officer Device Identifier Shelf Expiration Date Model / Serial / Lot Zeel Synergy Xd Monorail 4mm 32mm 144cm Delivery System 1 Access Port [id number] - [id number] Implanted:Qty: 1 on 02/12/2024 by Rene Harris MD at [facility] Zeel 11/28/2024 [id number] / / [id number] Procedures Procedure Name Priority Date/Time Associated Diagnosis Comments CARDIOLOGY DOCUMENT SCAN Routine 03/27/2024 10:46 AM COUNTER FORMER CARDIOLOGY DOCUMENT SCAN Routine 03/26/2024 10:43 AM COUNTER FORMER EGFR Routine 02/13/2024 2:34 AM COUNTER FORMER HEMOGLOBIN A1C Routine 09/18/2017 6:16 AM CDT LIPID PANEL STAT 09/18/2017 6:16 AM CDT from Last 3 Months or Most Recently Relevant to Health Maintenance Results * Cardiology Document Scan (03/27/2024 10:46 AM COUNTER FORMER) Anatomical Region Laterality Modality Other us Shawn Vyas MD CV CARDIAC SERVICES PROCEDURES F inal Result * Cardiology Document Scan (03/26/2024 10:43 AM COUNTER FORMER) Anatomical Region Laterality Modality Other us Nimisha Ryan MD CV CARDIAC SERVICES PRO CEDURES Final Result * (ABNORMAL) eGFR (02/13/2024 2:34 AM COUNTER FORMER) eGFR 57(L) >=60 mL/min/1. 73 m2 Comment: [...] last reviewed 2020. Blood 02/13/2024 2:34 AM COUNTER FORMER 02/13/2024 3:28 AM COUNTER FORMER Rene Harris MD LAB BLOOD ORDERABLES Final Resul t [facility] [address] [place] [address] * (ABNORMAL) Hemoglobin A1c (09/18/2017 6:16 AM CDT) Hgb A1C 7.2(H) 4.0 - 5.6 % [facility] Estimated Average Glucose 160 mg/dL [facility] Comment: The ADA recommends reporting an estimated Average Glucose (eAG) with all Hemoglobin A1c results using the equation derived from a study of 507 normal and diabetic adults. Minority populations were underrepresented and children were not included. (Diabetes Care 31:5642-7440, 2008). The eAG is not equivalent to a fasting glucose. Blood specimen (specimen) 09/18/2017 6:16 AM CDT 09/18/2017 7:44 AM CDT Narrative [facility] - 09/18/2017 8:10 AM CDT Aiden Parker MD LAB BLOOD ORDERABLES Final Result [facility] [place] [address] * (ABNORMAL) Lipid panel (09/18/2017 6:16 AM CDT) Cholesterol 140 30 - 200 mg/dL [facility] Comment: Interpretive Data Desirable: <200 mg/dL Borderline high: 200-239 mg/dL High: > or = 240 mg/dL Literature Reference: National Cholesterol Education Program (NCEP) Expert Panel on Detection, Evaluation, and Treatment of High Blood Cholesterol in Adults (Adult Treatment Panel III). Circulation 2004; 110:227. Current interpretive data was last revised on 2014. Triglycerides 95 0 - 150 mg/dL [facility] Comment: Interpretive Data Desirable: < 150 mg/dL Borderline High: 150 - 199 mg/dL High: 200 - 499 mg/dL Very High: > or = 499 mg/dL Literature Reference: See Cholesterol Current interpretive data was last revised on 2014. HDL 32(L) >=40 mg/dL [facility] Comment: Interpretive Data Less than 40 mg/dL - low; A major risk factor for heart disease. Greater than or equal to 60 mg/dL - High; considered protective of heart disease. Literature Reference: See Cholesterol Current interpretive data was last revised on 2014. LDL, calculated 89 10 - 129 mg/dL [facility] Comment: Interpretive Data Optimal: < 100 mg/dL Near Optimal: 100 - 129 mg/dL Borderline High: 130 - 159 mg/dL High: 160 - 189 mg/dL Very high: > or = 190 mg/dL Literature Reference: See Cholesterol Current interpretive data was last revised on 2014. Non-HDL Cholesterol 108 mg/dL [facility] Comment: Interpretive Data When triglycerides are >200 mg/dL, non-HDL C is a secondary target of therapy, with a goal 30 mg/dL higher than the identified LDL-C goal. Reference: See Cholesterol Reference. Current interpretive data was last revised 2014. Blood specimen (specimen) 09/18/2017 6:16 AM CDT 09/18/2017 7:42 AM CDT Narrative [facility] - 09/18/2017 6:[address] AIDEN PARKER 09/18/2017 17:13:25 CDT Aiden Parker MD LAB BLOOD ORDERABLES Final Result [facility] [place] [address] from Last 3 Months or Most Recently Relevant to Health Maintenance Insurance [employer] MEDICARE HMO [employer] MEDICARE HMO Advance Directives For more information, please contact: [phone] * Full Code (Latest Code Status on File) Date Activated Date Inactivated Comments 02/12/2024 3:20 PM 02/13/2024 2:36 PM * Full Code Date Activated Date Inactivated Comments 09/18/2017 5:47 AM 09/19/2017 5:05 PM Care Teams Rock Mason Apprentice Relationship Specialty Start Date End Date Krish Hooper MD [address] [facility] [address] [place] [address] PCP - General Internal Medicine 12/07/17 Jorge Jorge DO [address] [place] [address] Medical Oncologist/Quality Systems Technician Hematology and Oncology 12/11/18 Rene Harris MD [address] [place] [address] Consulting Physician Cardiology 02/13/24
--- OUTSIDE RECORDS SUMMARY | 2024-05-18 11:58 | XMS_ITS | Clinical Summary ---
Author Organization [facility] Address [address] [place] [phone] Care Team Providers Care Tax Consultant Name Role Phone Krish Hooper MD Primary Care Provide r Jorge Jorge DO Unavailable [phone] Rene Harris MD Unavailable Allergies Active Allergy [...] Department Care Team Description 04/01/2024 Orders Only [facility] Medical Group Cardiology [address] [place] [address] Nimisha Ryan MD from Last 3 Months [...] on file Legal Sex Male 7:05 PM WELDER FITTER APPRENTICE Gender Identity Not on file Sexual Orientation Not on file Obstetrics History Last Filed Vital Signs Vital Sign Reading Time Taken Comments Blood Pressure 130/54 02/13/2024 8:04 AM WELDER FITTER APPRENTICE Pulse 67 02/13/2024 8:04 AM WELDER FITTER APPRENTICE Temperature 36.9 C (98.5 F) 02/13/2024 8:04 AM WELDER FITTER APPRENTICE Respiratory Rate 18 02/13/2024 8:04 AM WELDER FITTER APPRENTICE Oxygen Saturation 99% 02/13/2024 8:04 AM WELDER FITTER APPRENTICE Inhaled Oxygen Concentration - - Weight 83.5 kg (184 lb) 02/12/2024 3:20 PM WELDER FITTER APPRENTICE Height 180.3 cm (5' 11 ) 02/12/2024 3:20 PM WELDER FITTER APPRENTICE Body Mass Index 25.66 02/12/2024 3:20 PM WELDER FITTER APPRENTICE Plan of Treatment Health Maintenance Due Date [...] Tdap) 02/06/202701/2017 Medical Devices Implanted Type Area Embroidery Operator Device Identifier Shelf Expiration Date Model / Serial / Lot healthfinch Synergy Xd Monorail 4mm 32mm 144cm Delivery System 1 Access Port [id number] - [id number] Implanted:Qty: 1 on 02/12/2024 by Rene Harris MD at [facility] [employer] 11/28/2024 [id number] / / [id number] Procedures Procedure Name Priority Date/Time Associated Diagnosis Comments CARDIOLOGY DOCUMENT SCAN Routine 03/27/2024 10:46 AM WELDER FITTER APPRENTICE CARDIOLOGY DOCUMENT SCAN Routine 03/26/2024 10:43 AM WELDER FITTER APPRENTICE EGFR Routine 02/13/2024 2:34 AM WELDER FITTER APPRENTICE HEMOGLOBIN A1C Routine 09/18/2017 6:16 AM CDT LIPID PANEL STAT 09/18/2017 6:16 AM CDT from Last 3 Months or Most Recently Relevant to Health Maintenance Results * Cardiology Document Scan (03/27/2024 10:46 AM WELDER FITTER APPRENTICE) Anatomical Region Laterality Modality Other Shawn Vyas MD CV CARDIAC SERVICES PROCEDURES F inal Result * Cardiology Document Scan (03/26/2024 10:43 AM WELDER FITTER APPRENTICE) Anatomical Region Laterality Modality Other Nimisha Ryan MD CV CARDIAC SERVICES PRO CEDURES Final Result * (ABNORMAL) eGFR (02/13/2024 2:34 AM WELDER FITTER APPRENTICE) eGFR 57(L) >=60 mL/min/1. 73 m2 Comment: [...] last reviewed 2020. Blood 02/13/2024 2:34 AM WELDER FITTER APPRENTICE 02/13/2024 3:28 AM WELDER FITTER APPRENTICE Rene Harris MD LAB BLOOD ORDERABLES Final Resul t Performing Organization Address City/State/[facility] Co de Phone Number [facility] [address] Department [place] [address] * (ABNORMAL) Hemoglobin A1c (09/18/2017 6:16 AM CDT) Hgb A1C 7.2(H) 4.0 - 5.6 % [facility] Estimated Average Glucose 160 mg/dL [facility] Comment: The ADA recommends reporting an estimated Average Glucose (eAG) with all Hemoglobin A1c results using the equation derived from a study of 507 normal and diabetic adults. Minority populations were underrepresented and children were not included. (Diabetes Care 31:7098-2484, 2008). The eAG is not equivalent to a fasting glucose. Blood specimen (specimen) 09/18/2017 6:16 AM CDT 09/18/2017 7:44 AM CDT Narrative [facility] - 09/18/2017 8:10 AM CDT Aiden Parker MD LAB BLOOD ORDERABLES Final Result Performing Organization Address [facility] de Phone Number [facility] Department [place] [address] * (ABNORMAL) Lipid panel (09/18/2017 6:16 AM CDT) Pathologist [facility] Cholesterol 140 30 - 200 mg/dL [facility] Comment: Interpretive Data Desirable: <200 mg/dL Borderline high: 200-239 mg/dL High: > or = 240 mg/dL Literature Reference: National Cholesterol Education Program (NCEP) Expert Panel on Detection, Evaluation, and Treatment of High Blood Cholesterol in Adults (Adult Treatment Panel III). Circulation 2004; 110:227. Current interpretive data was last revised on 2014. Triglycerides 95 0 - 150 mg/dL [facility] Comment: Interpretive Data Desirable: < 150 mg/dL Borderline High: 150 - 199 mg/dL High: 200 - 499 mg/dL Very High: > or = 499 mg/dL Literature Reference: See Cholesterol Current interpretive data was last revised on 2014. HDL 32(L) >=40 mg/dL [facility] Comment: Interpretive Data Less than 40 mg/dL - low; A major risk factor for heart disease. Greater than or equal to 60 mg/dL - High; considered protective of heart disease. Literature Reference: See Cholesterol Current interpretive data was last revised on 2014. LDL, calculated 89 10 - 129 mg/dL [facility] Comment: Interpretive Data Optimal: < 100 mg/dL Near Optimal: 100 - 129 mg/dL Borderline High: 130 - 159 mg/dL High: 160 - 189 mg/dL Very high: > or = 190 mg/dL Literature Reference: See Cholesterol Current interpretive data was last revised on 2014. Non-HDL Cholesterol 108 mg/dL [facility] Comment: Interpretive Data When triglycerides are >200 mg/dL, non-HDL C is a secondary target of therapy, with a goal 30 mg/dL higher than the identified LDL-C goal. Reference: See Cholesterol Reference. Current interpretive data was last revised 2014. Blood specimen (specimen) 09/18/2017 6:16 AM CDT 09/18/2017 7:42 AM CDT Narrative [facility] - 09/18/2017 6:[address] AIDEN PARKER 09/18/2017 17:13:25 CDT Aiden Parker MD LAB BLOOD ORDERABLES Final Result [facility] Department [place] [address] from Last 3 Months or Most Recently Relevant to Health Maintenance Insurance [facility] MEDICARE HMO Advance Directives For more information, please contact: [phone] * Full Code (Latest Code Status on File) Date Activated Date Inactivated Comments 02/12/2024 3:20 PM 02/13/2024 2:36 PM * Full Code Date Activated Date Inactivated Comments 09/18/2017 5:47 AM 09/19/2017 5:05 PM Care Teams Tax Consultant Relationship Specialty Start Date End Date Krish Hooper MD [address] [place] [address] PCP - General Internal Medicine 12/07/17 Jorge Jorge DO [address] [place] [address] Medical Oncologist/Slate Splitter Hematology and Oncology 12/11/18 Rene Harris MD [address] [place] [address] Consulting Physician Cardiology 02/13/24
--- OUTSIDE RECORDS SUMMARY | 2024-05-18 11:58 | XMS_ITS ---
Author Organization [facility] Address [address] [place] [address] Care Team Providers Care Carton Wrapper Name Role Phone Azeem Vizcaino Unavailable [phone] REASON FOR VISIT PROCESS TANK TENDER Allergies Encounters Encounter Location Date Provider Diagnosis [facility] [address] [place] [address] 03/19/2023 Azeem Vizcaino Plan Of Treatment No Information Progress Notes * Daniel GUILLEN WDOB: (69 yo M)Acc No.[id number]:03/19/2023 Progress Notes Patient: Marcos BULLOCKdanilo Bryant Provider: Elke Vizcaino PA-C :1955 A ge:67 Y S ex:Male Date:03/19/2023 Address:[address] [facility] Subjective: * Chief Complaints: * 1 . 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 * Medical History: Objective: * Vitals: Assessment: Plan: * Treatment: * Billing Information: * Visit Code: * Procedure Codes: * Electronic signature of Kieran Vizcaino PA-C on 05/18/2024 at 11:57 AM CDT Sign off status: Pending * Provider: Elke Vizcaino PA-C Date: 0 03/19/2023 Generated for Gerhard baker/Jessie/eTbrianasmitting on: 0 05/18/2024 11:57 AM CDT
[2024-05-18 11:59] VITALS: BP 171/57; PULSE 83; RESP 18; TEMP 36.4; O2SAT 100
--- OUTSIDE RECORDS SUMMARY | 2024-05-18 12:44 | XMS_ITS | Clinical Summary ---
Author Organization [facility] Rika Mloina Address [address] [place] [address] Care Team Providers Care Baby Formula Worker Name Role Phone Shay Hooper MD Primary [...] Type Department Care Team Description 2024 Abstract [facility] Oncology and Hematology - [place] [address] [place] [address] Tommy Cassidy MD 05/05/2024 Orders Only [facility] Oncology and Hematology - [place] [address] [place] [address] Tommy Cassidy MD Benign hypertension 05/02/2024 Telephone [facility] Oncology and Hematology - [place] [address] [place] [address] Tommy Cassidy MD Surgery Questions 04/21/2024 Refill [facility] Oncology and Hematology - [place] [address] [place] [phone] Amelia Canseco MD 04/21/2024 Orders Only [facility] Oncology and Hematology - [place] [address] [place] [address] Tommy Cassidy MD Benign hypertension 04/10/2024 9:15 AM RECEIVING INSPECTOR Office Visit [facility] Oncology and Hematology - [place] [address] [place] [phone] Tommy Cassidy MD Hepatocarcinoma (CMS/HCC) (Primary Dx) 04/07/2024 Orders Only [facility] Oncology and Hematology - [place] [address] [place] [address] Tommy Cassidy MD Benign hypertension 03/25/2024 Orders Only [facility] Oncology and Hematology - [place] [address] Tommy Cassidy MD 03/24/2024 Telephone [facility] Oncology and Hematology - [place] [address] [place] [phone] Tommy Cassidy MD Breathing Problem 03/24/2024 Orders Only [facility] Oncology and Hematology - [place] [address] [place] [address] Tommy Cassidy MD Hepatocarcinoma (CMS/HCC); Benign hypertension 03/21/2024 Orders Only [facility] Oncology and Hematology - [place] [address] [place] [address] Tommy Cassidy MD 03/20/2024 Orders Only [facility] Oncology and Hematology - [place] [address] [place] [phone] Tommy Cassidy MD Need for hepatitis B screening test (Primary Dx) 03/13/2024 9:00 AM RECEIVING INSPECTOR Office Visit [facility] Oncology and Hematology [facility] [address] [place] [phone] Tomym Cassidy MD Hepatocarcinoma (CMS/HCC) (Primary Dx) 03/13/2024 Orders Only [facility] Oncology and Hematology - [place] [address] [place] [phone] Tommy Cassidy MD 03/10/2024 Orders Only [facility] Oncology and Hematology - [place] [address] [place] [address] Tommy Cassidy MD Hepatocarcinoma (CMS/HCC); Benign hypertension 02/25/2024 Orders Only [facility] Oncology and Hematology - [place] [address] [place] [address] Tommy Cassidy MD Hepatocarcinoma (CMS/HCC); [...] Comments Blood Pressure 111/57 04/10/2024 9:23 AM RECEIVING INSPECTOR Pulse 70 04/10/2024 9:23 AM RECEIVING INSPECTOR Temperature 35.7 C (96.2 F) 04/10/2024 9:23 AM RECEIVING INSPECTOR Respiratory Rate 15 04/10/2024 9:23 AM RECEIVING INSPECTOR Oxygen Saturation 96% 04/10/2024 9:23 AM RECEIVING INSPECTOR Inhaled Oxygen Concentration - - Weight 79.8 kg (176 lb) 04/10/2024 9:23 AM RECEIVING INSPECTOR Height 180.3 cm (5' 11 ) 04/09/2023 8:51 AM RECEIVING INSPECTOR Body Mass Index 24.55 04/09/2023 8:51 AM RECEIVING INSPECTOR Plan of Treatment Upcoming Encounters Date Type Department Care Team (Late st Contact Info) Description 05/19/2024 Orders Only [facility] Oncology and Hematology [facility] [address] [place] [address] Tommy Cassidy MD [address] [place] [address] [facility] [address] [place] [phone] Benign hypertension 05/30/2024 9:00 AM CDT Office Visit [facility] Oncology and Hematology [facility] [address] [place] [address] Tommy Cassidy MD [facility] Quality Practicenc [facility] [address] [place] [phone] Health Maintenance Due Date Last Done [...] Tdap) 02/06/2027 Medical Devices Implanted Type Area Hearing Specialist Device Identifier Shelf Expiration Date Model / Serial / Lot Stents Bilateral Legs Procedures Procedure Name Priority Date/Time Associated Diagnosis Comments QUANTIFERON TB CONFIRMATION Routine 03/24/2024 11:51 AM RECEIVING INSPECTOR COMPREHENSIVE METABOLIC PANEL Routine 03/21/2024 1:12 PM RECEIVING INSPECTOR BASIC METABOLIC PANEL Routine 03/21/2024 1:08 PM RECEIVING INSPECTOR CBC WITH DIFFERENTIAL Routine 03/21/2024 1:07 PM RECEIVING INSPECTOR CBC WITH DIFFERENTIAL Routine 03/13/2024 4:12 PM RECEIVING INSPECTOR BASIC METABOLIC PANEL Routine 03/13/2024 4:11 PM RECEIVING INSPECTOR from Last 3 Months Results * QUANTIFERON TB CONFIRMATION (03/24/2024 11:51 AM RECEIVING INSPECTOR) Blood us Tommy Cassidy MD CHEMISTRY ORDERABLES Final Resu lt * COMPREHENSIVE METABOLIC PANEL (03/21/2024 1:12 PM RECEIVING INSPECTOR) Blood us Tommy Cassidy MD CHEMISTRY ORDERABLES Final Resu lt * BASIC METABOLIC PANEL (03/21/2024 1:08 PM RECEIVING INSPECTOR) Only the most recent of2 resultswithin the time period is included. Blood Tommy Cassidy MD CHEMISTRY ORDERABLES Final Resu lt * CBC WITH DIFFERENTIAL (03/21/2024 1:07 PM RECEIVING INSPECTOR) Only the most recent of2 resultswithin the time period is included. Blood Tommy Cassidy MD HEMATOLOGY ORDERABLES Final Res ult from Last 3 Months Insurance [employer] [facility] Member Subscriber Plan / Payer (Ef fective 2024-Present) Name:Daniel Treviño Relation to Subscriber:Self Name:Daniel Treviño Payer ID:Not on file Type:[place] Address: [place] [address] [employer] [facility] Advance Directives For more information, please contact: [phone] * Full Code (Latest Code Status on File) Date Activated Date Inactivated Comments 04/04/2023 11:13 AM 04/04/2023 6:32 PM Care Teams Baby Formula Worker Relationship Specialty Start Date End Date Shay Hooper MD PCP - General Internal Medicine 01/01/23
--- OUTSIDE RECORDS SUMMARY | 2024-05-18 12:44 | XMS_ITS | Referral Summary ---
Author Organization [facility] Address [address] [place] [phone] Care Team Providers Care Equipment Service Associate Name Role Phone Krish Hooper MD Primary Care Provide r Jorge Jorge DO Unavailable [phone] Rene Harris MD Unavailable Encounters Date Type Department Care Team Description 04/01/2024 Orders Only [facility] Medical Group Cardiology [address] [place] [address] Nimisha Ryan MD from Last [...] on file Legal Sex Male 7:05 PM ORACLE BPM DEVELOPER Gender Identity Not on file Sexual Orientation Not on file Last Filed Vital Signs Vital Sign Reading Time Taken Comments Blood Pressure 130/54 02/13/2024 8:04 AM ORACLE BPM DEVELOPER Pulse 67 02/13/2024 8:04 AM ORACLE BPM DEVELOPER Temperature 36.9 C (98.5 F) 02/13/2024 8:04 AM ORACLE BPM DEVELOPER Respiratory Rate 18 02/13/2024 8:04 AM ORACLE BPM DEVELOPER Oxygen Saturation 99% 02/13/2024 8:04 AM ORACLE BPM DEVELOPER Inhaled Oxygen Concentration - - Weight 83.5 kg (184 lb) 02/12/2024 3:20 PM ORACLE BPM DEVELOPER Height 180.3 cm (5' 11 ) 02/12/2024 3:20 PM ORACLE BPM DEVELOPER Body Mass Index 25.66 02/12/2024 3:20 PM ORACLE BPM DEVELOPER Plan of Treatment Not on file Medical Devices Implanted Type Area Forklift Truck Operator Device Identifier Shelf Expiration Date Model / Serial / Lot ApniCure Synergy Xd Monorail 4mm 32mm 144cm Delivery System 1 Access Port [id number] - [id number] Implanted:Qty: 1 on 02/12/2024 by Rene Harris MD at [facility] [employer] 11/28/2024 [id number] / / [id number] Procedures Procedure Name Priority Date/Time Associated Diagnosis Comments CARDIOLOGY DOCUMENT SCAN Routine 03/27/2024 10:46 AM ORACLE BPM DEVELOPER CARDIOLOGY DOCUMENT SCAN Routine 03/26/2024 10:43 AM ORACLE BPM DEVELOPER EGFR Routine 02/13/2024 2:34 AM ORACLE BPM DEVELOPER HEMOGLOBIN A1C Routine 09/18/2017 6:16 AM CDT LIPID PANEL STAT 09/18/2017 6:16 AM CDT from Last 3 Months or Most Recently Relevant to Health Maintenance Results * Cardiology Document Scan (03/27/2024 10:46 AM ORACLE BPM DEVELOPER) Anatomical Region Laterality Modality Other us Shawn Vyas MD CV CARDIAC SERVICES PROCEDURES F inal Result * Cardiology Document Scan (03/26/2024 10:43 AM ORACLE BPM DEVELOPER) Anatomical Region Laterality Modality Other us Nimisha Ryan MD CV CARDIAC SERVICES PRO CEDURES Final Result * (ABNORMAL) eGFR (02/13/2024 2:34 AM ORACLE BPM DEVELOPER) eGFR 57(L) >=60 mL/min/1. 73 m2 Comment: [...] last reviewed 2020. Blood 02/13/2024 2:34 AM ORACLE BPM DEVELOPER 02/13/2024 3:28 AM ORACLE BPM DEVELOPER Rene Harris MD LAB BLOOD ORDERABLES Final Resul t [facility] [address] Department [place] [address] * (ABNORMAL) Hemoglobin A1c (09/18/2017 6:16 AM CDT) Hgb A1C 7.2(H) 4.0 - 5.6 % [facility] Estimated Average Glucose 160 mg/dL [facility] Comment: The ADA recommends reporting an estimated Average Glucose (eAG) with all Hemoglobin A1c results using the equation derived from a study of 507 normal and diabetic adults. Minority populations were underrepresented and children were not included. (Diabetes Care 31:6729-9357, 2008). The eAG is not equivalent to a fasting glucose. Blood specimen (specimen) 09/18/2017 6:16 AM CDT 09/18/2017 7:44 AM CDT Narrative [facility] - 09/18/2017 8:10 AM CDT Aiden Parker MD LAB BLOOD ORDERABLES Final Result [facility] Department [place] [address] * (ABNORMAL) Lipid panel (09/18/2017 6:16 AM CDT) Cholesterol 140 30 - 200 mg/dL [facility] Comment: Interpretive Data Desirable: <200 mg/dL Borderline high: 200-239 mg/dL High: > or = 240 mg/dL Literature Reference: National Cholesterol Education Program (NCEP) Expert Panel on Detection, Evaluation, and Treatment of High Blood Cholesterol in Adults (Adult Treatment Panel III). Circulation 2004; 110:227. Current interpretive data was last revised on 2014. Triglycerides 95 0 - 150 mg/dL [facility] Comment: Interpretive Data Desirable: < 150 mg/dL Borderline High: 150 - 199 mg/dL High: 200 - 499 mg/dL Very High: > or = 499 mg/dL Literature Reference: See Cholesterol Current interpretive data was last revised on 2014. HDL 32(L) >=40 mg/dL [facility] Comment: Interpretive Data Less than 40 mg/dL - low; A major risk factor for heart disease. Greater than or equal to 60 mg/dL - High; considered protective of heart disease. Literature Reference: See Cholesterol Current interpretive data was last revised on 2014. LDL, calculated 89 10 - 129 mg/dL [facility] Comment: Interpretive Data Optimal: < 100 mg/dL Near Optimal: 100 - 129 mg/dL Borderline High: 130 - 159 mg/dL High: 160 - 189 mg/dL Very high: > or = 190 mg/dL Literature Reference: See Cholesterol Current interpretive data was last revised on 2014. Non-HDL Cholesterol 108 mg/dL [facility] Comment: Interpretive Data When triglycerides are >200 mg/dL, non-HDL C is a secondary target of therapy, with a goal 30 mg/dL higher than the identified LDL-C goal. Reference: See Cholesterol Reference. Current interpretive data was last revised 2014. Blood specimen (specimen) 09/18/2017 6:16 AM CDT 09/18/2017 7:42 AM CDT Narrative [facility] - 09/18/2017 6:[address] AIDEN PARKER 09/18/2017 17:13:25 CDT Aiden Parker MD LAB BLOOD ORDERABLES Final Result [facility] Department [place] [address] from Last 3 Months or Most Recently Relevant to Health Maintenance Insurance [employer] MEDICARE HMO HU[employer] MEDICARE HMO Advance Directives For more information, please contact: [phone] * Full Code (Latest Code Status on File) Date Activated Date Inactivated Comments 02/12/2024 3:20 PM 02/13/2024 2:36 PM * Full Code Date Activated Date Inactivated Comments 09/18/2017 5:47 AM 09/19/2017 5:05 PM Care Teams Equipment Service Associate Relationship Specialty Start Date End Date Krish Hooper MD [address] [facility] [address] [place] [address] PCP - General Internal Medicine 12/07/17 Jorge Jorge DO [address] [place] [address] Medical Oncologist/Material Reprocessing Associate Hematology and Oncology 12/11/18 Rene Harris MD [address] [place] [address] Consulting Physician Cardiology 02/13/24
--- OUTSIDE RECORDS SUMMARY | 2024-05-18 12:44 | XMS_ITS | Encounter Summary ---
Author Organization [facility] Address [address] [facility] [place] [address] Care Team Providers Care Septic Pump Truck Driver Name Role Phone Shay Hooper MD Primary Care Provider Encounter Details Date Type Department Care Team (Late st Contact Info) Description 10/23/2018 Lab Requisition [facility] Care Pathology Lab [address] [place] [address] Luna Hernandez MD [address] [place] [address] Illness Social History Tobacco Use Types Packs/Day [...] Description 05/08/2025 11:00 AM CDT Office Visit [facility] - [place] [address] [facility], [place] [address] Phyllis Pereira, MEDICAL OFFICE WORKER-LEVER MILLER [address] [facility] [place] [place] [address] documented as of this encounter Procedures Procedure Name Priority Date/Time Associated Diagnosis Comments PATHOLOGY TISSUE Routine 10/22/2018 3:19 PM CDT Illness documented in this encounter Results * PATHOLOGY TISSUE (10/22/2018 3:19 PM CDT) Case Report Surgical Pathology Report Case: [id number] Authorizing Provider: Luna Hernandez MD Collected: 10/22/2018 03:19 PM Ordering Location: [facility] Pathology Lab Received: 10/23/2018 03:19 PM Pathologist: Floyd Rodriguez MD Specimen: Slide Consultation, [id number] 10/24/2018 10:17 AM T [facility] PATHOLOGY LAB Final Diagnosis Urine, voided, thin prep, cytology: -Negative for high-grade urothelial neoplasia -Slight chronic inflammtion 10/24/2018 10:17 AM T [facility] PATHOLOGY LAB Microscopic Description and Comment Performed. 10/24/2018 10:17 AM CDT U PATHOLOGY LAB Clinical History History of bladder cancer, cystoscopy negative. 10/24/2018 10:17 AM T [facility] PATHOLOGY LAB Gross Description Prepared slides received from [place] [facility] labeled [id number]. All material will be returned. 10/24/2018 10:17 AM T [facility] PATHOLOGY LAB Disclaimer The performance characteristics of all immunohistochemical and indirect immunofluorescence stains (if any) cited in this report were determined by the Histopathology Laboratory of [facility]. Some of these tests were developed by [...] attending (teaching) pathologist. 10/24/2018 10:17 AM CDT [facility] PATHOLOGY LAB Embedded Images 10/24/2018 10:17 AM CDT [facility] PATHOLOGY LAB Pathology/Cytolo gy SURGICAL PATHOLOGY CONSULTATION AND REPORT ON REFERRED SLIDES PREPARED ELSEWHERE / Unknown 10/22/2018 3:19 PM CDT 10/23/2018 3:19 PM CDT Luna Hernandez MD LAB - PATHOLOGY/CYTO LOGY ORDERABLES Performing Organization Address City/State/[facility] Co de Phone Number [facility] PATHOLOGY LAB [address] [phone] documented in this encounter Visit Diagnoses Diagnosis Illness Other unknown and unspecified cause of morbidity or mortality documented in this encounter Care Teams Septic Pump Truck Driver Relationship Specialty Start Date End Date Shay Hooper MD [address] [phone] PCP - General Internal Medicine 11/14/17 documented as of this encounter
--- OUTSIDE RECORDS SUMMARY | 2024-05-18 12:44 | XMS_ITS | Encounter Summary ---
Author Organization [facility] Health Address [address] [facility] [place] [address] Care Team Providers Care Recorder Helper Seismograph Name Role Phone Shay Hooper MD Primary Care Provider Encounter Details Date Type Department Care Team (Late st Contact Info) Description 08/01/2018 [facility] Outpatient Visit [facility] [address] [place] [address] Edwin Horner MD [address] [place] [phone] Social History Tobacco Use Types Packs/Day [...] Visit [facility] - GI [address] [facility], [place] [address] Phyllis Pereira, VENDOR RELATIONSHIP MANAGER-STOCK WETTER [address] [place] [address] [facility] [place] [address] documented as of this encounter Visit Diagnoses Not on filedocumented in this encounter Care Teams Recorder Helper Seismograph Relationship Specialty Start Date End Date Shay Hooper MD [address] [phone] PCP - General Internal Medicine 11/14/17 documented as of this encounter
--- OUTSIDE RECORDS SUMMARY | 2024-05-18 12:44 | XMS_ITS | Encounter Summary ---
Author Organization [facility] Health Address [address] [place] [address] Care Team Providers Care Patent Attorney Name Role Phone Shay Hooper MD Primary Care Provider Encounter Details Date Type Department Care Team (Late Contact Info) Description 08/01/2018 [facility] Outpatient Visit [facility] [address] [place] [address] [place] [id number] [address] Social History Tobacco Use Types Packs/Day Years [...] Visit [facility] - [place] [address] [facility], [place] [address] Phyllis Pereira, SPEECH TEACHER-SIGN FABRICATOR [address] [place] [address] [facility] [place] [address] documented as of this encounter Visit Diagnoses Not on filedocumented in this encounter Care Teams Patent Attorney Relationship Specialty Start Date End Date Shay Hooper MD [address] [facility] 15 [place] [phone] PCP - General Internal Medicine 11/14/17 documented as of this encounter
--- OUTSIDE RECORDS SUMMARY | 2024-05-18 12:44 | XMS_ITS | Clinical Summary ---
Author Organization [facility] Address [address] [place] [address] Care Team Providers Care Director Safety Name Role Phone Krish Hooper MD Primary Care Provide r Jorge Jorge DO Unavailable [phone] Rene Harris MD Unavailable Allergies Active Allergy [...] Department Care Team Description 04/01/[address] [facility] Medical Group Cardiology [address] [place] [address] Nimisha Ryan MD from Last 3 Months [...] on file Legal Sex Male 7:05 PM LNA Gender Identity Not on file Sexual Orientation Not on file Obstetrics History Last Filed Vital Signs Vital Sign Reading Time Taken Comments Blood Pressure 130/54 02/13/2024 8:04 AM LNA Pulse 67 02/13/2024 8:04 AM LNA Temperature 36.9 C (98.5 F) 02/13/2024 8:04 AM LNA Respiratory Rate 18 02/13/2024 8:04 AM LNA Oxygen Saturation 99% 02/13/2024 8:04 AM LNA Inhaled Oxygen Concentration - - Weight 83.5 kg (184 lb) 02/12/2024 3:20 PM LNA Height 180.3 cm (5' 11 ) 02/12/2024 3:20 PM LNA Body Mass Index 25.66 02/12/2024 3:20 PM LNA Plan of Treatment Health Maintenance Due Date [...] Tdap) 02/06/202701/2017 Medical Devices Implanted Type Area Wire Spring Relay Adjuster Device Identifier Shelf Expiration Date Model / Serial / Lot [employer] Synergy Xd Monorail 4mm 32mm 144cm Delivery System 1 Access Port [id number] - [id number] Implanted:Qty: 1 on 02/12/2024 by Rene Harris MD at [facility] [employer] 11/28/2024 [id number] / / [id number] Procedures Procedure Name Priority Date/Time Associated Diagnosis Comments CARDIOLOGY DOCUMENT SCAN Routine 03/27/2024 10:46 AM LNA CARDIOLOGY DOCUMENT SCAN Routine 03/26/2024 10:43 AM LNA EGFR Routine 02/13/2024 2:34 AM LNA HEMOGLOBIN A1C Routine 09/18/2017 6:16 AM CDT LIPID PANEL STAT 09/18/2017 6:16 AM CDT from Last 3 Months or Most Recently Relevant to Health Maintenance Results * Cardiology Document Scan (03/27/2024 10:46 AM LNA) Anatomical Region Laterality Modality Other Shawn Vyas MD CV CARDIAC SERVICES PROCEDURES F inal Result * Cardiology Document Scan (03/26/2024 10:43 AM LNA) Anatomical Region Laterality Modality Other Nimisha Ryan MD CV CARDIAC SERVICES PRO CEDURES Final Result * (ABNORMAL) eGFR (02/13/2024 2:34 AM LNA) eGFR 57(L) >=60 mL/min/1. 73 m2 Comment: [...] last reviewed 2020. Blood 02/13/2024 2:34 AM LNA 02/13/2024 3:28 AM LNA Rene Harris MD LAB BLOOD ORDERABLES Final Resul t Performing Organization Address City/State/[facility] Co de Phone Number [facility] [address] Department [place] [address] * (ABNORMAL) Hemoglobin A1c (09/18/2017 6:16 AM CDT) Hgb A1C 7.2(H) 4.0 - 5.6 % [facility] Estimated Average Glucose 160 mg/dL [facility] Comment: The ADA recommends reporting an estimated Average Glucose (eAG) with all Hemoglobin A1c results using the equation derived from a study of 507 normal and diabetic adults. Minority populations were underrepresented and children were not included. (Diabetes Care 31:0591-7957, 2008). The eAG is not equivalent to a fasting glucose. Blood specimen (specimen) 09/18/2017 6:16 AM CDT 09/18/2017 7:44 AM CDT Narrative [facility] - 09/18/2017 8:10 AM CDT Aiden Parker MD LAB BLOOD ORDERABLES Final Result Performing Organization Address [facility] de Phone Number [facility] [address] [facility] Department [place] [address] * (ABNORMAL) Lipid panel (09/18/2017 6:16 AM CDT) Pathologist [facility] Cholesterol 140 30 - 200 mg/dL [facility] [...] 2014. Triglycerides 95 0 - 150 mg/dL [facility] Comment: Interpretive Data Desirable: < 150 [...] LDL, calculated 89 10 - 129 mg/dL [facility] Comment: Interpretive Data Optimal: < 100 [...] CDT 09/18/2017 7:42 AM CDT Narrative [facility] - 09/18/2017 6:[address] AIDEN PARKER 09/18/2017 17:13:25 CDT Aiden Parker MD LAB BLOOD ORDERABLES Final Result [facility] Department [place] [address] from Last 3 Months or Most Recently Relevant to Health Maintenance Insurance [facility] MEDICARE HMO Advance Directives For more information, please contact: [phone] * Full Code (Latest Code Status on File) Date Activated Date Inactivated Comments 02/12/2024 3:20 PM 02/13/2024 2:36 PM * Full Code Date Activated Date Inactivated Comments 09/18/2017 5:47 AM 09/19/2017 5:05 PM Care Teams Director Safety Relationship Specialty Start Date End Date Krish Hooper MD [address] [place] [address] PCP - General Internal Medicine 12/07/17 Jorge Jorge DO [address] [place] [address] Medical Oncologist/Senior Electrical Engineer Hematology and Oncology 12/11/18 Rene Harris MD [address] [place] [address] Consulting Physician Cardiology 02/13/24
--- OUTSIDE RECORDS SUMMARY | 2024-05-18 12:44 | XMS_ITS | Clinical Summary ---
Author Organization [facility] Address [address] [place] [address] Care Team Providers Care Golf Ball Cover Treater Name Role Phone Shay Hooper MD Primary Care Provider Source Comments [facility],non-owned Affiliates and Associated Physician Practices is amultiple site organization consisting of ambulatory clinics and hospital sitesin [place], [place], [place] and [place]. This disclosure is being madepursuant to the Care Everywhere program and may not contain all information available regarding this patient. Last updated 17.[facility] Allergies Active Allergy Reactions Criticality Noted Date [...] Office Visit [facility] - [address] [address] Phyllis Pereira, AUGER MACHINE OFFBEARER-FOOD TRADES ASSISTANTS Alcoholic cirrhosis of liver without ascites (Primary [...] Body Mass Index 28.17 12/29/2019 10:36 AM POCKET MAKER Plan of Treatment Upcoming Encounters Date Type Department Care Team (Late st Contact Info) Description 05/08/2025 11:00 AM CDT Office Visit [facility] - GI [address] [facility], [place] [address] Phyllis Pereira, AUGER MACHINE OFFBEARER-FOOD TRADES ASSISTANTS [address] [facility] [place] [address] Health Maintenance Due Date Last Done Comments [...] the bathroom Medical Devices Implanted Type Area Churn Operator Device Identifier Shelf Expiration Date Model / Serial / Lot Patch Tien Eptfe 1 X 9 X .5mm - [id number] Implanted:Qty: 1 on 08/07/2018 by Angelo Wu MD at [facility] Right: Carotid [employer] 05/30/2023 [id number] / Procedures Procedure Name Priority Date/Time Associated Diagnosis Comments GLUCOSE - POINT OF CARE Routine 08/08/2018 7:16 AM CDT from Last 3 Months or Most Recently Relevant to Health Maintenance Results * (ABNORMAL) GLUCOSE - POINT OF CARE (08/08/2018 7:16 AM CDT) [facility] Glucose WB/POC 265(H) 70 - 106 mg/dL 08/08/2018 8:34 AM CDT [facility] Specimen Type Venous 08/08/2018 8:34 AM CDT [facility] Blood BLOOD SPECIMEN / Unknown 08/08/2018 7:16 AM CDT 08/08/2018 8:34 AM CDT Narrative [facility] - 08/08/2018 8:34 AM CDT (2) Provider Notified Angelo Wu MD LAB - POINT OF CARE ORDERABLES [facility] [address] [place] [address] from Last 3 Months or Most Recently Relevant to Health Maintenance Advance Directives * Full Code (Latest Code Status on File) Date Activated Date Inactivated Comments 08/07/2018 5:20 PM 08/08/2018 1:06 PM Care Teams Golf Ball Cover Treater Relationship Specialty Start Date End Date Shay Hooper MD [address] [facility] [address] [place] [address] PCP - General Internal Medicine 11/14/17
--- OUTSIDE RECORDS SUMMARY | 2024-05-18 12:45 | XMS_ITS | Clinical Summary ---
Author Organization [facility] Address [address] [place] [address] Phone Care Team Providers Care Clear Coat Sprayer Name Role Phone Provider, Not On File [...] and at bedtime. Active ergocalciferol (VITAMIN D) 20743 UNIT Capsule Take 50,000 Units by mouth. [...] this topic Medical Devices Implanted Type Area Oil Dispenser Device Identifier Shelf Expiration Date Model / Serial / Lot Implant Nasal 16mm Steroid Release Zip Tie Propel Mometasone Furoate 370 Mcg Mini 4mm - [id number] Implanted:Qty: 1 on 10/03/2022 by Lalito Acuña MD at [facility] IMPLANT Left: Sinus [employer] 09/28/2023 [id number] / [id number] Implant Nasal 16mm Steroid Release Zip Tie Propel Mometasone Furoate 370 Mcg Mini 4mm - [id number] Implanted:Qty: 1 on 10/03/2022 by Lalito Acuña MD at [facility] IMPLANT Right: Sinus [employer] 11/09/2023 [id number] / [id number] / [id number] Explanted Type Area Oil Dispenser Device Identifier Shelf Expiration Date Model / Serial / Lot Implant Nasal 16mm Steroid Release Zip Tie Propel Mometasone Furoate 370 Mcg Mini 4mm - [id number] Explanted:Qty: 1 on 10/03/2022 at [facility] IMPLANT Right: Sinus [employer] 09/28/2023 [id number] / [id number] / [id number] Insurance MEDICARE C HUMANA Care Teams Clear Coat Sprayer Relationship Specialty Start Date End Date Provider, Not On File [place] PCP - General 10/03/22
--- OUTSIDE RECORDS SUMMARY | 2024-05-18 12:45 | XMS_ITS | CONTINUITY OF CARE DOCUMENT ---
Author Name shea valdivia Address Unknown Organization [facility] Address [address] [place] [address] Phone [phone] Care Team Providers Care Azure Developer Name Role Phone Rene Harris MD Unavailable [phone] López Powell DPM Unavailable MARSHAL CONDON [...] Rene Harris MD Syncope active Daniela Ventimiglia CLIENT SUPPORT CONSULTANT Liver cancer, primary active Rene Burrows CAD s/p stents active Rene Harris MD Cardiology examination active Rene Harris MD Facial numbness active Rene Harris MD Aortic insufficiency active Rene Harris MD Aortic stenosis active Rene Harris MD LBBB active Rene Harris MD ENCOUNTERS Date Type Provider Location Encounter Diag nosis - In-person encounter Office Visit Rene Harris MD [facility] Cardiology examinationFacial numbnessAortic insufficiencyAortic stenosisLBBB - In-person encounter Office Visit Rene Harris MD [facility] CAD s/p stents - In-person encounter Office Visit Rene Harris MD [facility] - In-person encounter Office Visit Rene Harris MD [facility] Liver cancer, primary - In-person encounter Office Visit Rene Harris MD [facility] Syncope - In-person encounter Office Visit Rene Harris MD [facility] - In-person encounter Office Visit Rene Harris MD [facility] Cirrhosis, alcoholic, liverSystolic murmurAbnormal EKG - In-person encounter Office Visit Rene Harris MD [facility] PVD with ulcer - In-person encounter Office Visit Rene Harris MD [facility] Carotid artery disea se - In-person encounter Office Visit Rene Harris MD [facility] Hyperlipidemia - In-person encounter Office Visit Rene Harris MD [facility] Tobacco abuse - In-person encounter Office Visit Rene Harris MD [facility] Cardiology examinationFamily History of CVA or Stroke:Family History of Hypertension:Family History of Sudden Cardiac :Diabetic foot ulcer, great toe, leftHx of Stroke and TIADiabetes mellitus VITAL SIGNS Date Observation Value Provider Body Mass Index (Ratio) 24.96 kg/m2 Kale Harris MD blood pressure, diastolic 66 mm[Hg] [facility], systolic 135 mm[Hg] [facility] oxygen saturation, oximetry 97 % [facility] pulse rate 71 /min [facility] respiratory rate E&M 12 /min [facility] weight E&M 179 [lb_av] [facility] height E&M 71 [in_i] [facility] blood pressure, cuff size regular ivory [place] Body Mass Index (Ratio) 26.22 kg/m2 Kale Harris MD pulse rate 67 /min [facility], diastolic 52 mm[Hg] Gregory yla [facility] blood pressure, systolic 101 mm[Hg] Alem [facility]ini [facility] saturation, oximetry 95 % Wanda [place] weight E&M 188 [lb_av] Wanda [facility] height E&M 71 [in_i] Wanda [facility] Body Mass Index (Ratio) 26.36 kg/m2 [...] rret blood pressure, systolic 144 mm[Hg] Jd [facility] pulse rate 72 /min Mikey oxygen saturation, [...] lder height E&M 71 [in_i] Radha Green [facility] Body Mass Index (Ratio) 29.01 kg/m2 Kale Harris MD blood pressure, diastolic 108 mm[Hg] Salma nkLogiraseam blood pressure, systolic 172 mm[Hg] Emily Langfordogirasema [...] pressure, diastolic 80 mm[Hg] Trey del rosario [place] blood pressure, systolic 152 mm[Hg] Xander sales [place] oxygen saturation, oximetry 98 % Cynthia Olga Lidia respiratory rate E&M 17 /min Cynthia Olga Lidia pulse rate 72 /min Cynthia Olga Lidia blood pressure, cuff size regular Trey del rosario Olga [facility] weight E&M 193 [lb_av] Cynthia Olga Lidia height E&M 71 [in_i] Cynthia [place] Body Mass Index (Ratio) 26.64 kg/m2 Kale [...] has been counseled to quit. Daniela Sanches [facility] social history reviewed E&M revi ewed - no changes required Daniela Sanches [facility] smoking/tobacco cess ation, patient education and [...] ation, patient education and counseling yes Radha Rios number of years as a smoker 50 [...] years as a smoker 50 a Cynthia [place] smoking history, tot al pack/day 1/2 ppd Cynthia [place] cigarette use yes Cynthia [place] smoking status Current every da y smoker [...] ation, patient education and counseling yes Michaela Shurthi number of years as a smoker 50 [...] Tim bhat ID [employer] HMO [id number] ADVANCE DIRECTIVES Name Date DISCUSSED - NO DECISION MADE TREATMENT PLAN Date Name Performer [id number],C, H is last echo showed EF is 65%. His Carotid study showed <50% stenosis of the right ICA, 50 - 69% stenosis of the left ICA, Possible right subclavian stenosis. [facility]. Wu. [facility] [id number],C,P t states that he had a recent syncopal episode with slurred speech this past Mother's Day. Denies chest pain and palpitations. Does c/o SOB. Did not return back to the hospital as was there month prior with similar episode. Will arrange a 2 week tele monitor and Stress Reg. [facility] [id number],S, H is updated medication list for this problem includes: Atorvastatin 40 Mg Tablet (Atorvastatin) ..... Take 1 tablet once a day Lipitor 40 Mg Tablet (Atorvastatin) ..... 1 tablet once a day [facility] [id number],S,W ill arrange RPM. BP today: 136/73 P rior BP: 140/70 (08/08/2021) His updated medication list for this problem includes: Amlodipine 5 Mg Tablet (Amlodipine) ..... Take 1 tablet by mouth once daily Lasix 20 Mg Tablet (Furosemide) ..... Take 1 once a day Aspirin 81 Mg Tablet,delayed Release (dr/ec) (Aspirin) ..... 1 tablet by mouth once a day [facility] [id number],S,S till smokes 1PPD. The Patient was reencouraged to stop smoking. [facility] [id number],C,H e has been having fluctuating BPs and he does not feel okay taking Losartan. Will stop Losartan 20mg and start Amlodipine to see if sx resolve. Will hopefully see him in the office soon. Rene Harris MD [id number],C,T he Patient was reencouraged to stop smoking. Rene Harris MD [id number],C,T he Patient was reencouraged to stop smoking. Rene Harris MD [id number],C,per Dr.B Kale Harris MD [id number],B,Ulcers have h ealed. Rene Harris MD [id number],C,E cho showed mild aortic stenosis. Otherwise no significant sx. Continue medical therapy. Rene Harris MD [id number],N,N ew PRWP on EKG today compared to previous. Will check echocardiogram. Rene Harris MD [id number],C,W ill obtain lipids from [facility]'s office. H is updated medication list for this problem includes: Atorvastatin 40 Mg Tablet (Atorvastatin) ..... Take 1 tablet once a day Lipitor 40 Mg Tablet (Atorvastatin) ..... 1 tablet once a day Rene Harris MD [id number],S, T he Patient was reencouraged to stop smoking. Rene Harris MD [id number],S,H gladys systolic murmur appreciated on exam. Will recheck echo to monitor progression of aortic stenosis. Rene Harris MD [id number],C, H as had interventions done on the [...] stenosis. Follows with Dr. Wu. Daniela Sanches [facility] Cardiology:Pt states that he had a recent syncopal episode with slurred speech this past Mother's Day. Denies chest pain and palpitations. Does c/o SOB. Did not return back to the hospital as was there month prior with similar episode. Will arrange a 2 week tele monitor and Stress Reg. Danielarain Sanches [facility] Cardiology: H is updated medication list for this problem includes: Atorvastatin 40 Mg Tablet (Atorvastatin) ..... Take 1 tablet once a day Lipitor 40 Mg Tablet (Atorvastatin) ..... 1 tablet once a day Danielarain Sanches [facility] Cardiology:Will arrlis PICKARD. BP today: 136/73 P rior BP: 140/70 (08/08/2021) His updated medication list for this problem includes: Amlodipine 5 Mg Tablet (Amlodipine) ..... Take 1 tablet by mouth once daily Lasix 20 Mg Tablet (Furosemide) ..... Take 1 once a day Aspirin 81 Mg Tablet,delayed Release (dr/ec) (Aspirin) ..... 1 tablet by mouth once a day Danielarain Sanches [facility] Cardiology:Still smo kes 1PPD. The Patient was reencouraged to stop smoking. Daniela Sanches [facility] Telehealth:He has be en having fluctuating [...] Cardiology:Will obta in lipids from [facility]'s office. H is updated medication list for this problem includes: Atorvastatin 40 Mg Tablet (Atorvastatin) ..... Take 1 tablet once a day Lipitor 40 Mg Tablet (Atorvastatin) ..... 1 tablet once a day Rene Harris MD Cardiology: T he Patient was reencouraged to stop smoking. Rene Hraris MD Cardiology:Harsh sys tolic murmur appreciated on [...] PT and DP. Will schedule AIF at [facility]. Rene Harris MD Cardiology New [...]
--- OUTSIDE RECORDS SUMMARY | 2024-05-18 12:45 | XMS_ITS | Clinical Summary ---
Author Organization [facility] Facility Address [address] [address] Care Team Providers Care Nuclear Criticality Safety Engineer Name Role Phone Shay Hooper MD Primary Care Provider [phone] Allergies Active Allergy Reactions Criticality Noted Date Comments Codeine 05/10/2021 Penicillins 05/10/2021 Medications torsemide (DEMADEX) 10 MG tablet Take 1 tablet (10 mg total) by mouth every morning 90 tablet 1 2 Active ergocalciferol 1.25 MG (22863 UT) capsule Take 1 capsule (50,000 Units [...] Department Care Team Description 05/08/2024 Documentation Only [facility], [address] [address] Emiliano Washington DO 2024 2:45 PM CDT Office Visit [facility], [facility] [address] [facility] [address] [place] [address] Emiliano Washington DO Stage 3 chronic kidney [...] not otherwise specified; Tobacco use 2024 Refill [facility], [facility] [address] [facility] [address] [place] [address] Cally Kruger CMA 05/02/2024 Documentation Only [facility], [address] [address] Emiliano Washington, 04/25/2024 Documentation Only [facility], [address] [address] Emiliano Washington, 04/25/2024 Documentation Only [facility], [address] [address] Emiliano Washington, 03/26/2024 Documentation Only [facility], [address] [address] Emiliano Washington, 02/29/2024 Documentation Only [facility], [address] [address] Emiliano Washington, DO from Last 3 Months [...] cm (5' 11 ) 04/11/2022 12:58 PM PACKAGE PICK UP Body Mass Index 24.83 04/11/2022 12:58 PM PACKAGE PICK UP Plan of Treatment Upcoming Encounters Date Type Department Care Team (Late st Contact Info) Description 07/22/2024 2:30 PM CDT Office Visit [facility], [facility] [address] [facility] [address] [place] [address] Emiliano Washington DO [address] [facility] [address] [place] [address] Health Maintenance Due Date Last [...] Exam 03/01/2021 Influenza Vaccine (#1) 2023 Insurance [facility] MEDICARE Advance Directives Documents on File Type Date Recorded Patient Behavioral Health Professional Expl anation Advance Care Planning 05/11/2021 11:05 AM Care Teams Nuclear Criticality Safety Engineer Relationship Specialty [place] [address] [place] [address], [address] [place] [id number] PCP - General Internal Medicine 03/01/21
[2024-05-18 12:48] LABS: Bacteria Urine None Seen /hpf; Need Manual Microscopic Reviewed; Non Pathogenic Casts 0-2; RBC Urine >100 /hpf (0-2); Squamous Epithelial Cell Urine None Seen /hpf (Few); WBC Urine >100 /hpf (0-3)
[2024-05-18 12:49] LABS: Add Urine Microscopic? YES; Appearance Urine Turbid (Clear); Bilirubin Urine Negative (Negative); Blood Urine 3+ (Negative); Glucose Urine UA Negative (Negative); Ketones Urine Negative (Negative); Leukocyte Esterase Ur 2+ LEU/UL (Negative); Nitrate Urine Negative (Negative); Protein Urine 2+ mg/dL (Negative); Specific Grav Ur 1.016 (1.001-1.035); Urobilinogen Urine 0.2 mg/dL (<2.0); pH Urine 6.5 (5.0-9.0)
[2024-05-18 12:51] LABS: Color Urine Light Amber (Yellow)
--- NOTE | 2024-05-18 14:39 | ED.MALEGU ---
HPI - Male Genitourinary General Chief complaint: Urogenital-Male Stated complaint: unable to urinate Time Seen by Provider: 05/18/24 12:31 Source: patient and family Limitations: no limitations History of Present Illness HPI Narrative: Patient is status post TURP on May 15 2024 a cup this morning with suprapubic tenderness and unable to urinate. Patient currently on Keflex 500 q.i.d. Related Data Home Medications ?Medication ?Instructions ?Recorded ?Confirmed ?Last Taken ?Type insulin aspart (niacinamide) See Protocol subcut TID 05/23/21 05/15/24 05/14/24 History (U-100) 100 unit/mL subcutaneous solution (Fiasp U-100 Insulin) pantoprazole 40 mg tablet,delayed 40 mg PO Q12H 05/23/21 05/15/24 05/14/24 History release pregabalin 50 mg capsule 50 mg PO Q8H 05/23/21 05/15/24 05/14/24 History zolpidem 10 mg tablet 10 mg PO HS 05/23/21 05/15/24 05/14/24 History acetaminophen 500 mg capsule 500 mg PO BID PRN Pain 03/28/23 05/15/24 05/14/24 History albuterol sulfate 90 mcg/actuation 1 puff inhalation Q4-6H PRN 03/28/23 05/15/24 05/15/24 History aerosol inhaler Shortness Of Breath Or Wheezing cetirizine 10 mg tablet 10 mg PO DAILY PRN allergies 01/18/24 05/15/24 05/14/24 History ferrous sulfate 325 mg (65 mg 325 mg PO DAILY 01/18/24 05/15/24 05/14/24 History iron) capsule,extended release hydroxyzine HCl 50 mg tablet 50 mg PO Q8H PRN Itching 01/18/24 05/01/24 03/23/24 20:00 History 50 mg magnesium oxide 400 mg (241.3 mg 400 mg PO DAILY 01/18/24 05/15/24 05/12/24 History magnesium) tablet mecobalamin (vitamin B12) 1,000 1,000 mcg PO DAILY 01/18/24 05/15/24 05/14/24 History mcg chewable tablet (B12 Active) nadolol 40 mg tablet 40 mg PO DAILY 01/18/24 05/15/2425 History rivaroxaban 20 mg tablet (Xarelto) 20 mg PO DAILY 01/18/24 05/15/24 05/12/24 History aspirin 81 mg tablet,delayed 81 mg PO DAILY 05/15/24 05/15/24 05/15/24 History release Allergies Allergy/AdvReac Type Severity Reaction Status Date / Time Penicillins Allergy Unknown Unknown Verified 05/18/24 12:24 doxycycline Allergy Rash Verified 05/18/24 12:24 torsemide Allergy Rash Verified 05/18/24 12:24 codeine AdvReac Unknown NAUSEA Verified 05/18/24 12:24 Review of Systems Review of Systems: All systems reviewed & are unremarkable except as noted in HPI and below PMFSH Past Medical History Medical History Cirrhosis, alcoholic Alcohol abuse, in remission Liver cirrhosis Chronic anticoagulation Bladder cancer Esophageal varices Continuous tobacco abuse COPD (chronic obstructive pulmonary disease) Diabetic peripheral neuropathy Chronic kidney disease TIA (transient ischemic attack) CVA (cerebral vascular accident) With residual right-sided weakness since around 2004 Aortic atherosclerosis Insulin dependent diabetes mellitus Chronic GERD HCC (hepatocellular carcinoma) (12/2022) GERD (gastroesophageal reflux disease) Surgical History Surgical History History of transurethral resection of prostate Port-A-Cath in place (04/02/23) Right subclavian placed by Dr. Aguilar Amputation of left great toe History of colonoscopy History of esophagogastroduodenoscopy Status post cataract extraction of both eyes with insertion of intraocular lens Family History Family History Mother Family history of respiratory disorder Pneumonia cause of Alcohol abuse Father Cerebrovascular accident Sibling Drug overdose at age 39 Sibling at age 43 from health issues related to [place] Social History Social History Social History: He lives with his of 32 years. He has 2 grown daughters. 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 He used to smoke 2 packs of cigarettes per day but has cut down to 1 pack of cigarettes per day for the last year so. He is recovering alcoholic he used to drink at least a 6 pack of beer a day or 1/2 of a 5th of liquor a day but he stopped when he was diagnosed with hepatocellular carcinoma December 2022. Code status: DNR/DNI per patient request but patient does not actually have advanced directives in writing. Surrogate decision maker: Smoking packs per day: 1 Smoking cigarettes per day: 20.0 Years smoked: 55 Smoking pack-years: 55.00 Smoking status: Former smoker Additional smoking assessment comments: TAPERING DOWN TO 1 PACK/DAY CURRENTLY Alcohol intake: former Alcohol use details: QUIT 01/2023, HEAVY DRINKER FOR 30-40 YEARS 6 pack per day or a half of a 5th of liquor a day Substance use: never Other substance usage details: distant history of cocaine/marijuana use Do You Feel Safe in your Home?: Yes Lack of Transportation: No Lack of Food: Never True Current Housing: I Have Housing Concerned About Future Housing: No Difficulty Paying Gas/Electric Bills: No Difficulty Paying for Meds: No Currently Unemployed: No Education: Trade/Vocational Certificate Difficulty w/ Childcare or Family Care: No Living arrangements: with family Additional living arrangements comments: Spiritual care concerns: No Exam Narrative: General appearance: Well-developed, well-nourished Skin: Normal color Head: Normocephalic, nontraumatic Eyes: Clear conjunctiva ENT: Oropharynx normal, ears normal, nose normal Neck: Supple, nontender Chest and respiratory: Airway patent, no respiratory distress, no accessory muscle use Heart: Regular rate/rhythm Abdomen: Soft, suprapubic tenderness, no organomegaly, quiet bowel sounds Vascular: Normal peripheral pulses, normal capillary refill. Musculoskeletal: Normal range of motion, nontender back Neurologic: Alert and oriented ?3, BALLOON DIPPER is normal as tested, no gross motor deficit Course Vital Signs Vital signs: Vital Signs Temperature 36.4 C 05/18/24 11:59 Pulse Rate 83 05/18/24 11:59 Respiratory Rate 18 05/18/24 11:59 Blood Pressure 171/57 H 05/18/24 11:59 Pulse Oximetry 100 05/18/24 11:59 Oxygen Delivery Room Air 05/18/24 11:59 Temperature 36.4 C 05/18/24 11:59 Pulse Rate 83 05/18/24 11:59 Respiratory Rate 18 05/18/24 11:59 Blood Pressure 171/57 H 05/18/24 11:59 Pulse Oximetry 100 05/18/24 11:59 Oxygen Delivery Room Air 05/18/24 11:59 MDM - Male Genitourinary MDM Narrative Medical decision making narrative: Patient came with urinary retention, Davis catheter placed, yielding 800 cc of bloody urine Patient currently on Keflex, discharged home to follow-up with urologist in 3-5 days Differential Diagnosis Differential diagnosis: Likely other (Postop urinary retention) Lab Data Labs: Lab Results 05/18/24 Range/Units 12:22 Urine Color Light moses (Yellow) Urine Appearance Turbid H (Clear) Urine pH 6.5 (5.0-9.0) Ur Specific Sycamore 1.016 (1.001-1.035) Urine Protein 2+ H (Negative) mg/dL Urine Glucose (UA) Negative (Negative) mg/dL Urine Ketones Negative (Negative) mg/dL Ur Blood (Man) 3+ H (Negative) Urine Nitrate Negative (Negative) Urine Bilirubin Negative (Negative) Urine Urobilinogen 0.2 (<2.0) mg/dL Add Ur Microanalysis Reviewed Leukocyte Esterase Rfl 2+ H (Negative) CAL/UL Urine RBC >100 H (0-2) /hpf Urine WBC >100 H (0-3) /hpf Ur Squamous Epith Cells None seen (Few) /hpf Urine Bacteria None seen /hpf Urine Casts 0-2 Critical Care Time Critical Care Time Critical Care Time: No Discharge Plan Discharge Clinical Impression: Acute urinary retention Patient Disposition: Home, Self-Care Condition: Improved Instructions: Urinary Retention in Men (ED), Davis Catheter Placement and Care (ED) Additional Instructions: Return if symptoms are worsening , call your urologist for appointment, take Tylenol as as needed for aches and pain, continue home medications. Davis catheter to be removed in 3-5 days Patient Language: Sudanese Prescriptions: No Action pantoprazole 40 mg tablet,delayed release (DR/EC) 40 mg PO Q12H zolpidem 10 mg tablet 10 mg PO HS pregabalin 50 mg capsule 50 mg PO Q8H Fiasp U-100 Insulin 100 unit/mL solution See Protocol subcut TID Protocol: Insulin Corrective Moderate-Dose Condition: glucose < 70 mg/dl Dose/Route: Follow hypoglycemia orders Condition: glucose 70-200 mg/dl Dose/Route: No additional insulin Condition: glucose 201-250 mg/dl Dose/Route: 3 units sub-Q Condition: glucose 251-300 mg/dl Dose/Route: 4 units sub-Q Condition: glucose 301-350 mg/dl Dose/Route: 5 units sub-Q Condition: glucose 351-400 mg/dl Dose/Route: 6 units sub-Q Condition: glucose > 400 mg/dl Dose/Route: Call MD Protocol Text: *No Correction Dose at Bedtime* Rx Instructions: sliding scale acetaminophen 500 mg Capsule 500 mg PO BID PRN (Reason: Pain) albuterol sulfate 90 mcg/actuation HFA aerosol inhaler 1 puff INHALATION Q4-6H PRN (Reason: Shortness Of Breath Or Wheezing) cetirizine 10 mg tablet 10 mg PO DAILY PRN (Reason: allergies) hydroxyzine HCl 50 mg tablet 50 mg PO Q8H PRN (Reason: Itching) Patient Comments: Patient takes before bed every night magnesium oxide 400 mg (241.3 mg magnesium) tablet 400 mg PO DAILY nadolol 40 mg tablet 40 mg PO DAILY ferrous sulfate 325 mg (65 mg iron) Capsule, Extended Release 325 mg PO DAILY Xarelto 20 mg tablet 20 mg PO DAILY Patient Comments: DR MONTIEL TO INSTRUCT ON PREOP mecobalamin (vitamin B12) [B12 Active] 1,000 mcg Tablet,Chewable 1,000 mcg PO DAILY atorvastatin 40 mg Tablet 40 mg PO DAILY 30 Days Qty: 30 1RF clopidogrel 75 mg Tablet 75 mg PO QAM 30 Days Qty: 30 1RF Patient Comments: TIANA TO INSTRUCT PT PREOP nitroglycerin [Nitrostat] 0.4 mg tablet, sublingual 0.4 mg sublingual Q5M PRN (Reason: chest pain) Qty: 20 0RF Rx Instructions: do not exceed 3 doses per episode metoclopramide HCl [Reglan] 10 mg tablet 10 mg PO Q6H PRN (Reason: nausea and vomiting) Qty: 14 0RF Patient Comments: Only takes when he doesn't feel good. Patient does not remember the last time he took it insulin degludec [Tresiba U-100 Insulin] 100 unit/mL solution 30 unit SUBCUT HS Qty: 30 0RF furosemide [Lasix] 20 mg tablet 20 mg PO DAILY PRN (Reason: edema) Qty: 30 0RF Rx Instructions: Daily weights, if you gain more than 3lb within 1 day or 5 lbs in 1 week please take one tablet aspirin 81 mg tablet,delayed release (DR/EC) 81 mg PO DAILY hydrocodone-acetaminophen 5-325 mg tablet 1 - 2 tablet PO Q6H PRN (Reason: pain) Qty: 24 0RF sulfamethoxazole-trimethoprim 800-160 mg tablet 1 tablet PO Q12H Qty: 6 0RF hyoscyamine sulfate 0.125 mg tablet 0.125 mg PO Q6H PRN (Reason: bladder spasms) Qty: 20 2RF Follow-up/Referrals: Sandie,MD Shay [Primary Care Provider] - Edward Montiel MD [Physician] - 05/19/24
[2024-05-18 15:41] VITALS: BP 152/65; PULSE 76; RESP 16; O2SAT 98
== END 2024-05-18 15:44 | disposition home or self-care (01) ==
PROVIDERS: Emergency Medicine; Emergency Provider Emergency Medicine; PCP Internal Medicine
DX: R33.9 Retention of urine, unspecified (principal); Z79.4 Long term (current) use of insulin; Z79.01 Long term (current) use of anticoagulants; Z79.82 Long term (current) use of aspirin; F10.11 Alcohol abuse, in remission; J44.9 Chronic obstructive pulmonary disease, unspecified; E11.42 Type 2 diabetes mellitus with diabetic polyneuropathy; Z86.73 Personal history of transient ischemic attack (TIA), and cerebral infarction without residual deficits; N18.9 Chronic kidney disease, unspecified; E11.22 Type 2 diabetes mellitus with diabetic chronic kidney disease; Z87.891 Personal history of nicotine dependence
CPT/HCPCS: 51702; 81001; 87086; 99283

== ENCOUNTER 2024-06-04 08:02 | Outpatient (RCR) | payer MEDICARE, SELFPAY ==
[2024-06-04] VITALS (7 sets, daily range): BP systolic 123–153; BP diastolic 50–80; PULSE 68–76; RESP 12–19; TEMP 36.4–37; O2SAT 98–100
[2024-06-04] MEDS: ACETAMINOPHEN 325 MG TABLET 650 MG PO (09:22)
[2024-06-04] MEDS: diphenhydrAMINE HCl CAP 25 MG CAPSULE PO (09:23)
[2024-06-04] MEDS: FUROSEMIDE INJ 40 MG/4 ML VIAL 20 MG IV PUSH (14:09)
== END 2024-09-02 23:59 | disposition home or self-care (01) ==
LOC: ANHCPCTRAN 08:02
PROVIDERS: PCP Internal Medicine; Visit Provider Internal Medicine Hematology & Oncology
DX: D64.9 Anemia, unspecified (principal); C80.1 Malignant (primary) neoplasm, unspecified
CPT/HCPCS: 36415; 36430; 86850; 86900; 86901; 86923; 96374; A9270; J1938; P9016

== ENCOUNTER 2024-07-29 08:54 | Outpatient (CLI) | payer MEDICARE, SELFPAY ==
--- NOTE | ~2024-07-29 | CT_ITS ---
Non-contrast CT scan of the Abdomen and Pelvis Clinical indication: Hepatocellular carcinoma Technique: 2.5 mm axial scans were obtained through the abdomen and pelvis without intravenous or or al contrast. Dose reduction technique was used on this scan by utilizing automated exposure control a nd iterative reconstruction technique. The dose-length product (DLP) was 465.62 mGy-cm. COMPARISON: 04/03/2024 Findings: Images through the lung bases reveal no abnormalities. There is no evidence of renal or ureteral calculi. The kidneys and the ureters are nondilated. Possible micronodular contour of liver. No focal hepatic mass identified. Probable mild splenomegaly. Splenorenal and/or gastric varices are present. The pancreas, and adrenals appear normal. Small calc ified gallstone present. There are extensive atherosclerotic calcifications of the aorta and iliac ve ssels with aortic stent in place.. There is no evidence of bowel obstruction. Images through the pelvis were performed. There is no evidence of ascites or lymphadenopathy. Urinary bladder unremarkable. No pelvic mass seen. Impression: Cirrhotic change of the liver with associated splenomegaly and left upper quadrant varices. No hepati c mass evident on this noncontrast exam. Please note that triple phase CT or MR imaging would be more sensitive for small hepatic mass. Small gallstone. Reviewed, dictated and finalized at [facility]. Impression: Cirrhotic change of the liver with associated splenomegaly and left upper quadr ant varices. No hepatic mass evident on this noncontrast exam. Please note that triple phase CT or MR imaging would be more sensitive for small hepatic mass. Small gallstone.
--- OUTSIDE RECORDS SUMMARY | 2024-07-29 09:05 | XMS_ITS ---
Author Organization [facility] [place] ([address]) Address [address] [place] [address] Care Team Providers Care Production Illustrator Name Role Phone Azeem Vizcaino [phone] REASON FOR VISIT BARREL HEADER Allergies Encounters Encounter Location Date Provider Diagnosis [facility] [address] [place] [address] 03/19/2023 Azeem Vizcaino Plan Of Treatment No Information Progress Notes * Daniel GUILLEN WDOB: (69 yo M)Acc No.[id number]:03/19/2023 Progress Notes Patient: Marcos BULLOCKdanilo Bryant Provider: Elke Vizcaino PA-C :1955 A ge:67 Y S ex:Male Date:03/19/2023 Address:[address] [place], [place] [id number] Subjective: * Chief Complaints: * 1 . BARREL HEADER Allergies. * Medical History: Objective: * Vitals: Assessment: Plan: * Treatment: * Billing Information: * Visit Code: * Procedure Codes: * Electronic signature of Kieran Vizcaino PA-C on 07/29/2024 at 09:05 AM CDT Sign off status: Pending * Provider: Elke Vizcaino PA-C Date: 0 03/19/2023 Generated for Gerhard baker/Jessie/Yin on: 0 07/29/2024 09:05 AM CDT
--- OUTSIDE RECORDS SUMMARY | 2024-07-29 09:05 | XMS_ITS | Referral Summary ---
Author Organization [facility] Address [address] [place] [address] Care Team Providers Care Settlement Technician Name Role Phone Krish Hooper MD Primary Care Provide r Jorge Jorge DO Unavailable [phone] Rene Harris MD Unavailable Emiliano Washington DO Unavailable [phone] Encounters Date Type Department Care Team Description 07/26/2024 1:18 AM CDT - 07/28/2024 12:46 PM CDT Hospital Encounter [address] [address] Cleveland Mathis MD Burton, Jeffrey Ryan, Discharge Disposition: Discharge to home or self care 07/02/2024 12:45 PM CDT Office Visit [facility] [address] [phone] Acute myocardial infarction, subendocardial infarction, initial episode of care (HCC) (Primary Dx) 06/25/2024 12:45 PM CDT Office Visit [address] [address] Acute myocardial infarction, subendocardial infarction, initial episode of care (HCC) (Primary Dx) 06/23/2024 12:45 PM CDT Office Visit [address] [phone] Acute myocardial infarction, subendocardial infarction, initial episode of care (HCC) (Primary Dx) 06/19/2024 10:00 AM CDT Office Visit [facility] [address] [place] [address] NSTEMI (non-ST elevation myocardial infarction) (FORM[facility]LY [facility]) from Last 3 Months Allergies Active Allergy [...] mouth nightly as needed for sleep Active atorvastatin (LIPITOR) 40 mg tablet TAKE 1 TABLET BY MOUTH ONCE DAILY 30 tablet 03/05/19 19 Active ferrous sulfate 325 mg (65 mg of elemental iron) tabletIndicatio ns:Iron Deficiency Anemia Take 1 tablet (325 mg total) by mouth daily with breakfast Active acetaminophen (TYLENOL) 500 mg tablet Take 1 tablet (500 mg total) by mouth 2 (two) times a day Active pregabalin (LYRICA) 50 mg capsule Take 1 capsule (50 mg total) by mouth 3 (three) times a day 06/03/19 22 Active insulin aspart niacinamide (FIASP) 100 unit/mL vial for injection Inject 0-10 Units under the skin 3 (three) times a day with meals Based on sliding scale Active ondansetron (ZOFRAN) 8 mg tablet Take 1 tablet (8 mg total) by mouth every 8 (eight) hours as needed 09/03/19 24 Active nitroglycerin (NITROSTAT) 0.[address] 1 tablet (0.4 mg total) under the tongue every 5 (five) minutes as needed 01/23/20 24 Active megestroL 40 mg/mL suspension Take 10 mL (400 mg total) by mouth as needed 09/03/19 24 Active magnesium oxide (MAG-OX) 400 mg (241.3 mg elemental magnesium) tablet Take 1 tablet (400 mg total) by mouth daily Active hydrOXYzine (ATARAX) 50 mg tablet Take 1 tablet (50 mg total) by mouth every 8 (eight) hours as needed 12/31/19 24 Active fluticasone propion-salmete roL (ADVAIR DISKUS) 250-50 mcg/dose diskus inhaler Inhale 1 puff 2 (two) times a day Active albuterol HFA (PROVENTIL HFA,VENTOLIN HFA,PROAIR HFA) 90 mcg/actuation inhaler Inhale 1 puff every 4 (four) hours as needed Active clopidogreL (PLAVIX) 75 mg tablet Take 1 tablet (75 mg total) by mouth daily for 21 doses 21 tablet 02/13/20 24 Active rivaroxaban (Xarelto) 20 mg tablet Take 1 tablet (20 mg total) by mouth daily with breakfast 90 tablet 11 02/13/20 24 Active sacubitriL-vals zina (ENTRESTO) 24-26 mg tabletIndicatio ns:chronic heart failure Take 1 tablet by mouth 2 (two) times a day 60 tablet 07/29/19 25 Active insulin degludec (TRESIBA) 100 unit/mL (3 mL) pen for injection Inject 0.15 mL (15 Units total) under the skin nightly 07/29/19 25 Active metoprolol XL (TOPROL-XL) 50 mg extended release tablet Take 1 tablet (50 mg total) by mouth daily 30 tablet 07/29/19 25 026 Active sodium bicarbonate 650 mg tablet Take 1 tablet (650 mg total) by mouth 3 (three) times a day for 7 days 21 tablet 07/29/19 25 025 Active cefdinir (OMNICEF) 300 mg capsule Take 1 capsule (300 mg total) by mouth 2 (two) times a day 14 capsule 07/29/19 25 Active insulin degludec (TRESIBA) 100 unit/mL (3 mL) pen for injection Inject 0.5 mL (50 Units total) under the skin nightly 025 Discontinued nadoloL (CORGARD) 40 mg tablet Take 1 tablet (40 mg total) by mouth daily 11/07/19 24 025 Discontinued(Benjamín [place] Reported) isosorbide mononitrate ER (IMDUR) 60 mg 24 hr tablet Take 1 tablet (60 mg total) by mouth every morning 01/23/20 24 05/31/2 025 Discontinued(Benjamín [place] Reported) amLODIPine (NORVASC) 5 mg tablet Take 1 tablet (5 mg total) by mouth daily 02/09/20 025 Discontinued(Benjamín [place] Reported) Active Problems Problem Noted Date Diagnosed Date Moderate protein-calorie malnutrition 07/26/2024 CAD S/P percutaneous coronary angioplasty 2023 Chest [...] Cessation:Ready to Q uit: No; Counseling Given: No Alcohol Use Standard Drinks/Week Comments Not Currently 0 (1 standard drink = 0.6 oz pur e alcohol) AUDIT-C Answer Date Recorded Q1: How often do you have a drink containing alcohol? Never 07/26/2024 Q2: How many drinks containi ng alcohol do you have on a typical day when you are drinking? Patient does not drink Q3: How often do you have si x or more drinks on one occasion? Never 07/26/2024 PHQ-2 Answer Date Recorded PHQ-2 Total Score (If total score is 3 or more points, staff should administer the PHQ-9) 1 06/19/2024 Personal Safety Answer Date Recorded Have you ever been in or are you currently in a harmful physical or emotional relationship or is someone making you feel afraid or unsafe? 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 Gender Identity Not on file Sexual Orientation Not on file Last Filed Vital Signs Vital Sign Reading Time Taken Comments Blood Pressure 129/60 07/28/2024 8:31 AM CDT Pulse 89 07/28/2024 11:33 AM CDT Temperature 37 C (98.6 F) 07/28/2024 8:31 AM CDT Respiratory Rate 18 07/28/2024 8:31 AM CDT Oxygen Saturation 100% 07/28/2024 8:31 AM CDT Inhaled Oxygen Concentration - - Weight 73.9 kg (163 lb) 07/28/2024 6:00 AM CDT Height 180.3 cm (5' 11) 07/26/2024 1:22 AM CDT Body Mass Index 22.73 07/26/2024 1:22 AM CDT Plan of Treatment Not on file Medical Devices Implanted Type Area Rebar Bender Device Identifier Shelf Expiration Date Model / Serial / Lot [employer] Synergy Xd Monorail 4mm 32mm 144cm Delivery System 1 Access Port [id number] - [id number] Implanted:Qty: 1 on 02/12/2024 by Rene Harris MD at [facility] [employer] 11/28/2024 [id number] / / [id number] Procedures Procedure Name Priority Date/Time Associated Diagnosis Comments FERRITIN Routine 07/28/2024 8:33 AM CDT POCT GLUCOSE DEVICE Routine 07/28/2024 6 :56 AM CDT EGFR Routine 07/28/2024 5:50 AM CDT BASIC METABOLIC PANEL Routine 07/28/2024 5:50 AM CDT CBC WITHOUT DIFFERENTIAL Routine 07/28/2024 5:50 AM CDT POCT GLUCOSE DEVICE Routine 07/27/2024 9 :07 PM CDT LACTATE Routine 07/27/2024 7:36 PM CDT POCT GLUCOSE DEVICE Routine 07/27/2024 5 :27 PM CDT POCT GLUCOSE DEVICE Routine 07/27/2024 1 2:40 PM CDT URINALYSIS, MICROSCOPIC ONLY Routine 07/27/2024 11:12 AM CDT URINALYSIS AND REFLEX TO MICROSCOPIC Routine 07/27/2024 11:12 AM CDT POCT GLUCOSE DEVICE Routine 07/27/2024 6 :09 AM CDT EGFR Routine 07/27/2024 4:26 AM CDT BASIC METABOLIC PANEL Routine 07/27/2024 4:26 AM CDT CBC WITHOUT DIFFERENTIAL Routine 07/27/2024 4:26 AM CDT HEMOGLOBIN AND HEMATOCRIT Timed 07/26/2024 10:12 PM CDT POCT GLUCOSE DEVICE Routine 07/26/2024 8 :34 PM CDT POCT GLUCOSE DEVICE Routine 07/26/2024 5 :07 PM CDT TRANSFUSE RED BLOOD CELLS Timed 07/26/2024 4:26 PM CDT SODIUM, URINE, RANDOM Routine 07/26/2024 3:50 PM CDT UREA NITROGEN, URINE, RANDOM Routine 07/26/2024 3:50 PM CDT CREATININE, URINE, RANDOM Routine 07/26/2024 3:50 PM CDT B CHECK SAMPLE STAT 07/26/2024 3:13 PM CDT TYPE AND SCREEN Timed 07/26/2024 2:18 PM CDT POCT GLUCOSE DEVICE Routine 07/26/2024 1 1:38 AM CDT FOLATE Add-On 07/26/2024 9:13 AM CDT VITAMIN B12 Add-On 07/26/2024 9:13 AM CDT IRON PROFILE W/ IBC Add-On 07/26/2024 9 :13 AM CDT PREPARE RBC STAT 07/26/2024 8:27 AM CDT POCT GLUCOSE DEVICE Routine 07/26/2024 7 :42 AM CDT EGFR Routine 07/26/2024 4:40 AM CDT DIFFERENTIAL AUTO Routine 07/26/2024 4:4 0 AM CDT COMPREHENSIVE METABOLIC PANEL Routine 07/26/2024 4:40 AM CDT CBC WITH AUTO DIFFERENTIAL Routine 07/26/2024 4:40 AM CDT HEMOGLOBIN A1C Routine 09/18/2017 6:16 AM CDT LIPID PANEL STAT 09/18/2017 6:16 AM CDT from Last 3 Months or Most Recently Relevant to Health Maintenance Results * Ferritin (07/28/2024 8:33 AM CDT) Ferritin 183 30 - 400 ng/mL Blood 07/28/2024 8:33 AM CDT 07/28/2024 8:38 AM CDT Emiliano Washington DO LAB BLOOD ORDERABLES Final Result Performing Organization Address [facility]/ZIP Co de Phone Number NINA FRANKIE [address] [place] [address] * POCT glucose (07/28/2024 6:56 AM CDT) Glucose, POC 152 70 - 199 mg/dL POC Performer [id number] [facility] Blood 07/28/2024 6:56 AM CDT 07/28/2024 6:56 AM CDT Edward Witt DO LAB POCT ORDERABLES - DEV ICE Final Result Performing Organization Address City/[facility] Co de Phone Number NINA DAVID [address] [place] [address] * (ABNORMAL) eGFR (07/28/2024 5:50 AM CDT) Pathologist [facility] eGFR 48(L) >=60 mL/min/1. 73 m2 Comment: Interpretive Data [...] interpretive data was last reviewed 2020. Blood 07/28/2024 5:50 AM CDT 07/28/2024 6:24 AM CDT Edward Witt DO LAB BLOOD ORDERABLES Alicia ordaz Result [facility] [address] Department [place] [address] * (ABNORMAL) CBC without differential (07/28/2024 5:50 AM CDT) Pathologist [facility] WBC 5.01 3.80 - 9.90 K/cumm Hgb 8.3(L) 13.0 - 17.5 g/dL [facility] Hct 25.7(L) 38.9 - 50.3 % [facility] Plt 130(L) 150 - 400 K/cumm [facility] MPV 9.5 9.1 - 12.3 fL [facility] RBC 2.68(L) 4.30 - 5.80 M/cumm [facility] MCV 95.9 81.3 - 96.4 fL [facility] MCH 31.0 27.1 - 33.3 pg [facility] MCHC 32.3 32.3 - 35.7 g/dL [facility] RDW CV 15.7(H) 11.1 - 14.9 % [facility] RDW SD 54.1(H) 35.7 - 48.1 fL [facility] NRBC abs 0.00 0.00 - 0.01 K/cumm [facility] Blood 07/28/2024 5:50 AM CDT 07/28/2024 6:24 AM CDT us Edward Witt DO LAB BLOOD ORDERABLES Alicia l Result [facility] [address] [place] [address] * (ABNORMAL) Basic metabolic panel (07/28/2024 5:50 AM CDT) Sodium 136 135 - 145 mmol/L Potassium, pl 4.9 3.3 - 4.9 mmol/L [facility] Chloride 109 97 - 110 mmol/L [facility] CO2 16(L) 22 - 32 mmol/L [facility] Anion gap 11 2 - 15 mmol/L [facility] BUN 34(H) 6 - 25 mg/dL [facility] Creatinine 1.55(H) 0.80 - 1.30 mg/dL [facility] Glucose 138 70 - 199 mg/dL [facility] Comment: Interpretive Data Fasting glucose >/= [...] interpretive data was last revised 2022. Calcium 8.7 8.5 - 10.3 mg/dL [facility] Blood 07/28/2024 5:50 AM CDT 07/28/2024 6:24 AM CDT Edward Witt LAB BLOOD ORDERABLES Alicia l Result Performing Organization Address [facility] Co de Phone Number NINA DAVID [address] [address] [facility] [place] [address] * (ABNORMAL) POCT glucose (07/27/2024 9:07 PM CDT) Glucose, POC 232(H) 70 - 199 mg/dL POC Performer [id number] [facility] Blood 07/27/2024 9:07 PM CDT 07/27/2024 9:07 PM CDT Edward Witt [facility] POCT ORDERABLES - DEV ICE Final Result Performing Organization Address [facility] de Phone Number NINA DAVID [address] [address] [facility] [place] [address] * Lactate (07/27/2024 7:36 PM CDT) Lactate 0.8 0.7 - 2.0 mmol/L Blood 07/27/2024 7:36 PM CDT 07/27/2024 7:46 PM CDT Edward Vega Witt [facility] BLOOD ORDERABLES Alicia l Result Performing Organization Address [facility] de Phone Number NINA DAVID [address] [address] [facility] [place] [address] * POCT glucose (07/27/2024 5:27 PM CDT) Glucose, POC 129 70 - 199 mg/dL POC Performer [id number] [facility] Blood 07/27/2024 5:27 PM CDT 07/27/2024 5:27 PM CDT Edward Gary Witt LAB POCT ORDERABLES - DEV ICE Final Result Performing Organization Address [facility] Co de Phone Number NINA DAVID [address] [place] [address] * (ABNORMAL) POCT glucose (07/27/2024 12:40 PM CDT) Glucose, POC 262(H) 70 - 199 mg/dL POC Performer [id number] [facility] Blood 07/27/2024 12:4 0 PM CDT 07/27/2024 12:40 PM CDT Edward Witt DO LAB POCT ORDERABLES - DEV ICE Final Result NINA DAVID [address] [place] [address] * (ABNORMAL) Urinalysis reflex to microscopic (07/27/2024 11:12 AM CDT) Color, ur Yellow Yellow Clarity, ur Clear Clear [facility] Specific gravity, ur 1.013 1.003 - 1.030 [facility] pH, urine 6.5 [facility] Comment: Interpretive Data U rine pH is affected by diet, medications, systemic acid-base disturbances, and renal tubular function. pH may affect urinary stone formation. For example, urine pH below 6.0 may help reduce the tendency for calcium phosphate stones and pH greater than 6.0 may reduce the tendency for uric acid stone formation. Source: [facility] [employer] Current Interpretive Data was last revised on 2017 Protein, ur ql Trace Negative [facility] Glucose, ur ql 3+(A) Negative [facility] Ketones, ur Negative Negative [facility] Bilirubin, ur Negative Negative [facility] Blood, ur 1+(A) Negative [facility] Urobilinogen, ur <2.0 <2.0 mg/dL [facility] Nitrite, ur Negative Negative [facility] Leukocyte esterase, ur 4+(A) Negative [facility] UA reflex comment Reflex to microscopic UA will be performed. [facility] Urine 07/27/2024 11:1 2 AM CDT 07/27/2024 11:23 AM CDT us [facility] URINE ORDERABLES Alicia l Result Performing Organization Address [facility] de Phone Number NINA DAVID [address] [facility] [place] [address] * (ABNORMAL) Urinalysis, microscopic only (07/27/2024 11:12 AM CDT) Pathologist [facility] WBC, ur >50(A) 0 - 5 /HPF RBC, ur 6-10(A) 0 - 2 /HPF [facility] Epithelial cells, squamous, ur 1-5 0 - 5 /HPF [facility] Urine 07/27/2024 11:1 2 AM CDT 07/27/2024 11:23 AM CDT [facility] URINE ORDERABLES Alicia l Result Performing Organization Address [facility] de Phone Number NINA DAVID [address] [address] [facility] [place] [address] * POCT glucose (07/27/2024 6:09 AM CDT) [facility] Glucose, POC 190 70 - 199 mg/dL POC Performer [id number] [facility] Blood 07/27/2024 6:09 AM CDT 07/27/2024 6:09 AM CDT Edward Vega [facility] POCT ORDERABLES - DEV ICE Final Result Performing Organization Address [facility] de Phone Number NINA DAVID [address] [address] [facility] [place] [address] * (ABNORMAL) eGFR (07/27/2024 4:26 AM CDT) Pathologist [facility] eGFR 44(L) >=60 mL/min/1. 73 m2 Comment: Interpretive Data [...] interpretive data was last reviewed 2020. Blood 07/27/2024 4:26 AM CDT 07/27/2024 4:36 AM CDT Edward Witt DO LAB BLOOD ORDERABLES Alicia ordaz Result [facility] [address] Department [place] [address] * (ABNORMAL) CBC without differential (07/27/2024 4:26 AM CDT) WBC 4.08 3.80 - 9.90 K/cumm Hgb 7.7(L) 13.0 - 17.5 g/dL [facility] Hct 25.0(L) 38.9 - 50.3 % [facility] Plt 112(L) 150 - 400 K/cumm [facility] MPV 9.5 9.1 - 12.3 fL [facility] RBC 2.49(L) 4.30 - 5.80 M/cumm [facility] MCV 100.4(H) 81.3 - 96.4 fL [facility] MCH 30.9 27.1 - 33.3 pg [facility] MCHC 30.8(L) 32.3 - 35.7 g/dL [facility] RDW CV 15.8(H) 11.1 - 14.9 % [facility] RDW SD 57.8(H) 35.7 - 48.1 fL [facility] NRBC abs 0.00 0.00 - 0.01 K/cumm [facility] Blood 07/27/2024 4:26 AM CDT 07/27/2024 4:37 AM CDT Edward Witt LAB BLOOD ORDERABLES Alicia l Result NINA DAVID [address] [place] [address] * (ABNORMAL) Basic metabolic panel (07/27/2024 4:26 AM CDT) [facility] Sodium 136 135 - 145 mmol/L Potassium, pl 5.2(H) 3.3 - 4.9 mmol/L [facility] Chloride 112(H) 97 - 110 mmol/L [facility] CO2 15(L) 22 - 32 mmol/L [facility] Anion gap 9 2 - 15 mmol/L [facility] BUN 33(H) 6 - 25 mg/dL [facility] Creatinine 1.67(H) 0.80 - 1.30 mg/dL [facility] Glucose 175 70 - 199 mg/dL [facility] Comment: Interpretive Data Fasting glucose >/= [...] interpretive data was last revised 2022. Calcium 8.9 8.5 - 10.3 mg/dL [facility] Blood 07/27/2024 4:26 AM CDT 07/27/2024 4:36 AM CDT Edward Witt LAB BLOOD ORDERABLES Alicia ordaz Result Performing Organization Address City/[facility]/ZIP Co de Phone Number NINA DAVID [address] [place] [address] * (ABNORMAL) Hemoglobin and hematocrit (07/26/2024 10:12 PM CDT) Hgb 7.8(L) 13.0 - 17.5 g/dL Hct 24.9(L) 38.9 - 50.3 % [facility] Blood 07/26/2024 10:1 2 PM CDT 07/26/2024 10:21 PM CDT Narrative NINA - 07/26/2024 10:27 PM CDT 1 hour after the red blood cell transfusion is complete. [facility] LAB BLOOD ORDERABLES Alicia l Result Performing Organization Address [facility]/ZIP Co de Phone Number CLARENCEWICHO DAVID [address] [address] [facility] [place] [address] * Transfuse RBC (07/26/2024 9:19 PM CDT) Blood [facility] BLOOD TRANSFUSION ORDERAB LES Final Result Performing Organization Address [facility] Co de Phone Number CLARENCEWICHO DAVID [address] [place] [address] * (ABNORMAL) POCT glucose (07/26/2024 8:34 PM CDT) [facility] Glucose, POC 261(H) 70 - 199 mg/dL POC Performer [id number] [facility] Blood 07/26/2024 8:34 PM CDT 07/26/2024 8:34 PM CDT [facility] LAB POCT ORDERABLES - DEV ICE Final Result Performing Organization Address [facility]/ZIP Co de Phone Number NINA DAVID [address] [address] [facility] [place] [address] * (ABNORMAL) POCT glucose (07/26/2024 5:07 PM CDT) Pathologist [facility] Glucose, POC 298(H) 70 - 199 mg/dL POC Performer [id number] [facility] Blood 07/26/2024 5:07 PM CDT 07/26/2024 5:07 PM CDT Edward Witt DO LAB POCT ORDERABLES - DEV ICE Final Result Performing Organization Address [facility] de Phone Number NINA DAVID [address] [address] [facility] [place] [address] * Urea nitrogen, urine, random (07/26/2024 3:50 PM CDT) Urea nitrogen, ur 541 mg/dL Comment: Interpretive Data No reference range established. Current interpretive data was last revised 2018. Urine 07/26/2024 3:50 PM CDT 07/26/2024 3:57 PM CDT Tamara Johnson MD LAB URINE ORDERABLES Alicia l Result Performing Organization Address [facility] de Phone Number NINA DAVID [address] [place] [address] * Sodium, urine, random (07/26/2024 3:50 PM CDT) Sodium, ur 98 mmol/L Comment: Interpretive Data No reference range established. Current interpretive data was last revised 2018. Urine 07/26/2024 3:50 PM CDT 07/26/2024 3:57 PM CDT Tamara Johnson MD LAB URINE ORDERABLES Alicia l Result Performing Organization Address [facility] de Phone Number NINA DAVID [address] [address] [facility] [place] [address] * Creatinine, urine, random (07/26/2024 3:50 PM CDT) Creatinine Ur 69.4 mg/dL Comment: Interpretive Data No reference range established. Current interpretive data was last revised 2018. Urine 07/26/2024 3:50 PM CDT 07/26/2024 3:57 PM CDT Tamara Johnson MD LAB URINE ORDERABLES Alicia l Result Performing Organization Address [facility] Co de Phone Number NINA DAVDI [address] [address] [facility] [place] [address] * Check Sample (07/26/2024 3:13 PM CDT) ABO Rh A Positive [facility] HCLL OTHER 07/26/2024 3:13 PM CDT 07/26/2024 3:14 PM CDT Edward Witt DO LAB BLOOD ORDERABLES Alicia l Result Performing Organization Address [facility] de Phone Number NINA DAVID [address] [address] [facility] [place] [address] CH * Type and screen (07/26/2024 2:18 PM CDT) ABO Rh A Positive Sergio, indirect Negative [facility] Blood 07/26/2024 2:18 PM CDT 07/26/2024 2:26 PM CDT Narrative [facility] - 07/26/2024 3:15 PM CDT Has the patient had Daratumumab or Isatuximab in the past 6 months?->Unknown Edward Witt DO LAB BLOOD BANK TEST ORDER ZOE Final Result Performing Organization Address [facility] de Phone Number NINA DAVID [address] [address] [facility] [place] [address] * (ABNORMAL) POCT glucose (07/26/2024 11:38 AM CDT) Glucose, POC 346(H) 70 - 199 mg/dL POC Performer [id number] [facility] Blood 07/26/2024 11:3 8 AM CDT 07/26/2024 11:38 AM CDT us Edward Vega Witt LAB POCT ORDERABLES - DEV ICE Final Result Performing Organization Address [facility] Co de Phone Number NINA [address] [address] [facility] [place] [address] * (ABNORMAL) Iron profile w/ IBC (07/26/2024 9:13 AM CDT) Iron 110 50 - 150 mcg/dl TIBC 219(L) 250 - 400 mcg/dL [facility] Transferrin saturation 50 20 - 50 % [facility] Blood 07/26/2024 9:13 AM CDT 07/28/2024 1:12 AM CDT Edward Vega Witt LAB BLOOD ORDERABLES Alicia l Result Performing Organization Address [facility] Co de Phone Number CLARENCEWICHO [address] [address] [facility] [place] [address] * Folate (07/26/2024 9:13 AM CDT) Folic acid 7.4 >=5.0 ng/mL Comment:Hemolysis present. R esults may be affected. Blood 07/26/2024 9:13 AM CDT 07/28/2024 1:12 AM CDT Edwardaravind Witt LAB BLOOD ORDERABLES Alicia l Result Performing Organization Address City/[facility]/ZIP Co de Phone Number CLARENCEWICHO [address] [address] [place] [address] * Vitamin B12 (07/26/2024 9:13 AM CDT) Vitamin B12 907 230 - 1,250 pg/mL Blood 07/26/2024 9:13 AM CDT 07/28/2024 1:12 AM CDT Edward Gary Witt DO LAB BLOOD ORDERABLES Alicia l Result Performing Organization Address City/[facility]/ZIP Co de Phone Number NINA [address] [address] Department [place] [address] * Prepare RBC: 1 Units (07/26/2024 8:27 AM CDT) [facility] Product code [id number] Unit Number [id number] [facility] Product Blood Type APOS [facility] Dispense Status PRESUMED TRANSFUSED [facility] Blood 07/26/2024 8:27 AM CDT Narrative [facility] - 07/28/2024 10:15 AM CDT Are special requirements needed? (All products are leukoreduced and CMV- safe)- >No Date required:-[id number] LRRBC # of Gvsze-1-Evicu Reasons:-Hgb <7 g/dL} Edward Witt DO BLOOD BANK PRODUCT ORDERA BLES Final Result Performing Organization Address City/[facility]/ZIP Co de Phone Number NINA DAVID [address] [place] [address] * POCT glucose (07/26/2024 7:42 AM CDT) [facility] Glucose, POC 196 70 - 199 mg/dL POC Performer [phone] [facility] Blood 07/26/2024 7:42 AM CDT 07/26/2024 7:42 AM CDT Cleveland Mathis MD LAB POCT ORDERABLES - DEVICE Final Result Performing Organization Address City/[facility]/ZIP Co de Phone Number CLARENCEWICHO DAVID [address] [place] [address] * (ABNORMAL) eGFR (07/26/2024 4:40 AM CDT) [facility] eGFR 32(L) >=60 mL/min/1. 73 m2 Comment: Interpretive Data [...] interpretive data was last reviewed 2020. Blood 07/26/2024 4:40 AM CDT 07/26/2024 4:52 AM CDT us Randall Cortez NP LAB BLOOD ORDERABLES Final R esult [facility] [address] [place] [address] * (ABNORMAL) Differential, auto (07/26/2024 4:40 AM CDT) Neutrophil abs 3.71 1.50 - 6.50 K/cumm Imm gran abs 0.02 0.00 - 0.10 K/cumm [facility] Lymphocyte abs 0.64(L) 0.80 - 3.30 K/cumm [facility] Monocyte abs 0.29 0.20 - 0.80 K/cumm [facility] Eosinophil abs 0.19 0.00 - 0.50 K/cumm [facility] Basophil abs 0.02 0.00 - 0.10 K/cumm [facility] Neutrophil pct 76.2 % [facility] Comment: Interpretive Data Percent cell count reference ranges are not reported, since discordance with absolute values may lead to misinterpretation of CBC data. Current Interpretive Data was last revised on 2017. Imm gran pct 0.4 % [facility] Comment: Interpretive Data Percent cell count reference ranges are not reported, since discordance with absolute values may lead to misinterpretation of CBC data. Current Interpretive Data was last revised on 2017. Lymphocyte pct 13.1 % [facility] Comment: Interpretive Data Percent cell count reference ranges are not reported, since discordance with absolute values may lead to misinterpretation of CBC data. Current Interpretive Data was last revised on 2017. Monocyte pct 6.0 % [facility] Comment: Interpretive Data Percent cell count reference ranges are not reported, since discordance with absolute values may lead to misinterpretation of CBC data. Current Interpretive Data was last revised on 2017. Eosinophil pct 3.9 % [facility] Comment: Interpretive Data Percent cell count reference ranges are not reported, since discordance with absolute values may lead to misinterpretation of CBC data. Current Interpretive Data was last revised on 2017. Basophil pct 0.4 % [facility] Comment: Interpretive Data Percent cell count reference ranges are not reported, since discordance with absolute values may lead to misinterpretation of CBC data. Current Interpretive Data was last revised on 2017. Blood 07/26/2024 4:40 AM CDT 07/26/2024 4:52 AM CDT us Randall Cortez NP LAB BLOOD ORDERABLES Final R esult [facility] [address] Department [place] [address] * (ABNORMAL) CBC with auto differential (07/26/2024 4:40 AM CDT) WBC 4.87 3.80 - 9.90 K/cumm Hgb 6.9(L) 13.0 - 17.5 g/dL [facility] Hct 22.2(L) 38.9 - 50.3 % [facility] Plt 116(L) 150 - 400 K/cumm [facility] MPV 9.4 9.1 - 12.3 fL [facility] RBC 2.21(L) 4.30 - 5.80 M/cumm [facility] MCV 100.5(H) 81.3 - 96.4 fL [facility] MCH 31.2 27.1 - 33.3 pg [facility] MCHC 31.1(L) 32.3 - 35.7 g/dL [facility] CV 15.8(H) 11.1 - 14.9 % [facility] SD 58.2(H) 35.7 - 48.1 fL [facility] NRBC abs 0.00 0.00 - 0.01 K/cumm [facility] Blood 07/26/2024 4:40 AM CDT 07/26/2024 4:52 AM CDT Randall Cortez NP LAB BLOOD [place] [address] Department [place] [address] * (ABNORMAL) Comprehensive metabolic panel (07/26/2024 4:40 AM CDT) Sodium 135 135 - 145 mmol/L Potassium, pl 5.7(H) 3.3 - 4.9 mmol/L [facility] Chloride 113(H) 97 - 110 mmol/L [facility] CO2 14(L) 22 - 32 mmol/L [facility] Anion gap 8 2 - 15 mmol/L [facility] BUN 35(H) 6 - 25 mg/dL [facility] Creatinine 2.17(H) 0.80 - 1.30 mg/dL [facility] Glucose 185 70 - 199 mg/dL [facility] Comment: Interpretive Data Fasting glucose >/= [...] interpretive data was last revised 2022. Calcium 8.9 8.5 - 10.3 mg/dL [facility] Bilirubin, total 0.3 0.1 - 1.2 mg/dL [facility] Protein, pl 6.1(L) 6.5 - 8.5 g/dL [facility] Albumin 3.6 3.5 - 5.0 g/dL [facility] Alk phos 104 40 - 130 Units/L [facility] ALT 10 7 - 55 Units/L [facility] AST 19 10 - 50 Units/L [facility] Blood 07/26/2024 4:40 AM CDT 07/26/2024 4:52 AM CDT Randall Cortez NP LAB BLOOD ORDERABLES Final R esult Performing Organization Address [facility] Co de Phone Number [facility] [address] Department [place] [address] * (ABNORMAL) Hemoglobin A1c (09/18/2017 6:16 AM CDT) Hgb A1C 7.2(H) 4.0 - 5.6 % [facility] Estimated Average Glucose 160 mg/dL [facility] Comment: The ADA recommends reporting an estimated Average Glucose (eAG) with all Hemoglobin A1c results using the equation derived from a study of 507 normal and diabetic adults. Minority populations were underrepresented and children were not included. (Diabetes Care 31:3547-8497, 2008). The eAG is not equivalent to a fasting glucose. Blood specimen (specimen) 09/18/2017 6:16 AM CDT 09/18/2017 7:44 AM CDT Narrative [facility] - 09/18/2017 8:10 AM CDT Aiden Parker MD LAB BLOOD ORDERABLES Final Result Performing Organization Address [facility] Co de Phone Number [facility] Department [place] [address] * (ABNORMAL) Lipid panel (09/18/2017 6:16 AM CDT) Cholesterol 140 30 - 200 mg/dL [facility] Comment: Interpretive Data Desirable: <200 mg/dL Borderline high: 200-239 mg/dL High: > or = 240 mg/dL Literature Reference: National Cholesterol Education Program (NCEP) Expert Panel on Detection, Evaluation, and Treatment of High Blood Cholesterol in Adults (Adult Treatment Panel III). Circulation 2004; 110:227. Current interpretive data was last revised on 2014. Triglycerides 95 0 - 150 mg/dL [facility] Comment: Interpretive Data Desirable: < 150 mg/dL Borderline High: 150 - 199 mg/dL High: 200 - 499 mg/dL Very High: > or = 499 mg/dL Literature Reference: See Cholesterol Current interpretive data was last revised on 2014. HDL 32(L) >=40 mg/dL [facility] Comment: Interpretive Data Less than 40 mg/dL - low; A major risk factor for heart disease. Greater than or equal to 60 mg/dL - High; considered protective of heart disease. Literature Reference: See Cholesterol Current interpretive data was last revised on 2014. LDL, calculated 89 10 - 129 mg/dL [facility] Comment: Interpretive Data Optimal: < 100 mg/dL Near Optimal: 100 - 129 mg/dL Borderline High: 130 - 159 mg/dL High: 160 - 189 mg/dL Very high: > or = 190 mg/dL Literature Reference: See Cholesterol Current interpretive data was last revised on 2014. Non-HDL Cholesterol 108 mg/dL [facility] Comment: Interpretive Data When triglycerides are >200 mg/dL, non-HDL C is a secondary target of therapy, with a goal 30 mg/dL higher than the identified LDL-C goal. Reference: See Cholesterol Reference. Current interpretive data was last revised 2014. Blood specimen (specimen) 09/18/2017 6:16 AM CDT 09/18/2017 7:42 AM CDT Narrative [facility] - 09/18/2017 6:[address] AIDEN PARKER 09/18/2017 17:13:25 CDT Aiden Parker MD LAB BLOOD ORDERABLES Final Result [facility] Department [place] [address] from Last 3 Months or Most Recently Relevant to Health Maintenance Insurance [employer] MEDICARE HMO Advance Directives For more information, please contact: [phone] * Full Code (Latest Code Status on File) Date Activated Date Inactivated Comments 07/26/2024 1:39 AM 07/28/2024 4:56 PM * Full Code Date Activated Date Inactivated Comments 02/12/2024 3:20 PM 02/13/2024 2:36 PM * Full Code Date Activated Date Inactivated Comments 09/18/2017 5:47 AM 09/19/2017 5:05 PM Care Teams Settlement Technician Relationship Specialty Start Date End Date Krish Hooper MD [address] [facility] [address] [place] [address] PCP - General Internal Medicine 12/07/17 Jorge Jorge DO [address] [place] [address] Medical Oncologist/Research Chemist Hematology and Oncology 12/11/18 Rene Harris MD [address] [place] [address] Consulting Physician Cardiology 02/13/24 Emiliano Washington DO [address] [facility] [address] [place] [address] Consulting Physician Nephrology 07/28/24
--- OUTSIDE RECORDS SUMMARY | 2024-07-29 09:05 | XMS_ITS | Clinical Summary ---
Author Organization [facility] Rika Molina Address [address] [place] [address] Care Team Providers Care Collet Gluer Name Role Phone Shay Hooper MD Primary [...] Solution INJECT 50 UNITS SUBCUTANEOUSLY AT BEDTIME Active Fiasp U-100 Insulin 100 unit/mL Solution [...] as needed for nausea 20 Tablet Active ondansetron (ZOFRAN) 8 mg Tablet Take [...] 100 mg by mouth 2 times daily. Active solifenacin (VESICARE) 5 mg Tablet Take 5 mg by mouth daily. Active hydrOXYzine HCL (ATARAX) 50 mg tablet TAKE 1 TABLET BY MOUTH EVERY 8 HOURS NEEDED FOR ITCHING 60 Tablet 025 Active megestroL (MEGACE) 400 mg/10 mL (40 mg/mL) suspension TAKE 10 ML BY MOUTH ONCE DAILY 240 mL 025 Active megestroL (MEGACE) 400 mg/10 mL (40 mg/mL) suspension Take 10 mL (400 mg) by mouth daily. 240 mL 1 024 2024 Discontinued hydrOXYzine HCL (ATARAX) 50 mg tablet TAKE 1 TABLET BY MOUTH EVERY 8 HOURS NEEDED FOR ITCHING 60 Tablet 025 2024 Discontinued megestroL (MEGACE) 400 mg/10 mL (40 mg/mL) suspension TAKE 10 ML BY MOUTH ONCE DAILY 240 mL 025 2024 Discontinued Active Problems No known active problems Encounters Date Type Department Care Team Description 07/28/2024 Refill [facility] Oncology and Hematology - [address] [place] [id number] Tommy Cassidy MD 07/28/2024 Orders Only [facility] Oncology and Hematology - [place] [place] [phone] Tommy Cassidy MD Benign hypertension 07/23/2024 Orders Only [facility] Oncology and Hematology - [place] [place] [phone] Tommy Cassidy MD 07/21/2024 Orders Only [facility] Oncology and Hematology - [place] [address] [place] [address] Tommy Cassidy MD Hepatocarcinoma ([facility]/HCC) 07/14/2024 Orders Only [facility] Oncology and Hematology - [place] [place] [address] Tommy Cassidy MD Benign hypertension 07/12/2024 Refill [facility] Oncology and Hematology - [place] [address] [place] [address] Tommy Cassidy MD 07/09/2024 Refill [facility] Oncology and Hematology - [place] [place] [phone] Tommy Cassidy MD 07/08/2024 Refill [facility] Oncology and Hematology - [place] [place] [phone] Tommy Cassidy MD 07/07/2024 Orders Only [facility] Oncology and Hematology - [address] [place] [phone] Tommy Cassidy MD Hepatocarcinoma ([facility]/HCC) 06/30/2024 Orders Only [facility] Oncology and Hematology - [address] [place] [phone] Tommy Cassidy MD Benign hypertension 06/27/2024 9:30 AM CDT Office Visit [facility] Oncology and Hematology - [address] [place] [phone] Tommy Cassidy MD Hepatocarcinoma ([facility]/HCC) (Primary Dx) 06/27/2024 Orders Only [facility] Oncology and Hematology - [place] [place] [address] Tommy Cassidy MD 06/23/2024 Orders Only [facility] Oncology and Hematology - [address] [place] [phone] Tommy Cassidy MD Hepatocarcinoma ([facility]/HCC) 06/16/2024 [facility] Oncology and Hematology - [address] [place] [address] Tommy Cassidy MD Benign hypertension 06/09/2024 Orders [facility] Oncology and Hematology - [address] [place] [address] Tommy Cassidy MD Hepatocarcinoma (CMS/HCC) 06/06/2024 Abstract [facility] Oncology and Hematology - [address] [place] [address] Tommy Cassidy MD 06/03/2024 Orders Only [facility] Oncology and Hematology - [place] [place] [phone] Tommy Cassidy MD 06/02/2024 Orders Only [facility] Oncology and Hematology - [address] [place] [phone] Tommy Cassidy MD Benign hypertension 05/30/2024 9:00 AM CDT Office Visit [facility] Oncology and Hematology - [address] [place] [phone] Tommy Cassidy MD Chronic anemia (Primary Dx); Renal insufficiency; Anemia due to stage 4 chronic kidney disease (CMS/HCC) 05/30/2024 Orders Only [facility] Oncology and Hematology - [address] [place] [phone] Tommy Cassidy MD 05/29/2024 Orders Only [facility] Oncology and Hematology - [address] [place] [address] Tommy Cassidy MD Hepatocarcinoma ([facility]/HCC) (Primary Dx) 05/29/2024 Orders Only [facility] Oncology and Hematology - [place] [place] [address] Tommy Cassidy MD Hepatocarcinoma ([facility]/HCC) (Primary Dx) 05/19/2024 Orders Only [facility] Oncology and Hematology - [place] [place] [address] Tommy Cassidy MD Benign hypertension 2024 Abstract [facility] Oncology and Hematology - [address] [place] [phone] Tommy Cassidy MD 05/05/2024 Orders Only [facility] Oncology and Hematology [address] [place] [address] Tommy Cassidy MD Benign hypertension 05/02/2024 Telephone [facility] Oncology [facility] Hematology [address] [address] [facility] [address] [place] [address] Tommy Cassidy MD Surgery Questions from Last 3 Months Family History Relation [...] Sign Reading Time Taken Comments Blood Pressure 132/64 06/27/2024 9:34 AM CDT Pulse 87 06/27/2024 9:34 AM CDT Temperature 35.9 C (96.7 F) 06/27/2024 9:34 AM CDT Respiratory Rate 15 06/27/2024 9:34 AM CDT Oxygen Saturation 96% 06/27/2024 9:34 AM CDT Inhaled Oxygen Concentration - - Weight 77.7 kg (171 lb 6.4 oz) 06/27/2024 9:34 A M CDT Height 180.3 cm (5' 11) 04/09/2023 8:51 AM FRONT END SPECIALIST Body Mass Index 23.91 04/09/2023 8:51 AM FRONT END SPECIALIST Plan of Treatment Upcoming Encounters Date Type Department Care Team (Late st Contact Info) Description 08/05/2024 9:45 AM CDT Office Visit [facility] Oncology and Hematology - [place] [place] [address] Tommy Cassidy MD [address] [facility] [address] [place] [address] Health Maintenance Due Date Last [...] Tdap) 02/06/2027 Medical Devices Implanted Type Area Public Health Nurse Device Identifier Shelf Expiration Date Model / Serial / Lot Stents Bilateral Legs Procedures Procedure Name Priority Date/Time Associated Diagnosis Comments CBC WITH DIFFERENTIAL Routine 07/23/2024 4:19 PM CDT BASIC METABOLIC PANEL Routine 06/27/2024 1:33 PM CDT COMPREHENSIVE METABOLIC PANEL Routine 06/27/2024 12:54 PM CDT CBC MIXED CELL DIFFERENTIAL Routine 05/30/2024 1:22 PM CDT BASIC METABOLIC PANEL Routine 05/30/2024 12:12 PM CDT COMPREHENSIVE METABOLIC PANEL Routine 05/30/2024 11:38 AM CDT from Last 3 Months Results * CBC WITH DIFFERENTIAL (07/23/2024 4:19 PM CDT) Blood Tommy Cassidy MD HEMATOLOGY ORDERABLES Final Res ult * BASIC METABOLIC PANEL (06/27/2024 1:33 PM CDT) Only the most recent of2 resultswithin the time period is included. Blood us Tommy Cassidy MD CHEMISTRY ORDERABLES Final Resu lt * COMPREHENSIVE METABOLIC PANEL (06/27/2024 12:54 PM CDT) Only the most recent of2 resultswithin the time period is included. Blood us Tommy Cassidy MD CHEMISTRY ORDERABLES Final Resu lt * CBC MIXED CELL DIFFERENTIAL (05/30/2024 1:22 PM CDT) Blood us Tommy Cassidy MD HEMATOLOGY ORDERABLES Final Res ult from Last 3 Months Insurance Rebelle Bridal PLUS [facility] [place] [facility] Advance Directives For more information, please contact: [phone] * Full Code (Latest Code Status on File) Date Activated Date Inactivated Comments 04/04/2023 11:13 AM 04/04/2023 6:32 PM Care Teams Collet Gluer Relationship Specialty Start Date End Date Sahy oHoper MD PCP - General Internal Medicine 01/01/23
--- OUTSIDE RECORDS SUMMARY | 2024-07-29 09:05 | XMS_ITS | Encounter Summary ---
Author Organization [facility] Health Address [address] [place] [address] Care Team Providers Care Topper Press Operator Name Role Phone Shay Hooper MD Primary Care Provider Encounter Details Date Type Department Care Team (Late Contact Info) Description 08/01/2018 [facility] Outpatient Visit [facility] [address] [place] [address] [place] [address] [address] Social History Tobacco Use Types Packs/Day Years Used Date Smoking Tobacco: Every Day Cigarettes Smokeless Tobacco: Never Alcohol Use Standard Drinks/Week Comments Yes 0 (1 standard drink = 0.6 oz pur e alcohol) RARE Sex and Gender Information Value Date Recorded Sex Assigned at Not on file Legal Sex Male 6:29 AM CEREAL POPPER Gender Identity Not on file Sexual Orientation Not on file documented as of this encounter Plan of Treatment Upcoming Encounters Date Type Department Care Team (Late Contact Info) Description 05/08/2025 11:00 AM CDT Office Visit [facility] [address] [facility] [place] [address] Phyllis Pereira, MOLD TECHNICIAN-EDGING MACHINE CATCHER [address] [facility] [address] [place] [address] documented as of this encounter Visit Diagnoses Not on filedocumented in this encounter Care Teams Topper Press Operator Relationship Specialty Start Date End Date Shay Hooper MD [address] [address] PCP - General Internal Medicine 11/14/17 documented as of this encounter
--- OUTSIDE RECORDS SUMMARY | 2024-07-29 09:05 | XMS_ITS | Clinical Summary ---
Author Organization [facility] Address [address] [place] [id number] Care Team Providers Care Senior Support Analyst Name Role Phone Krish Hooper MD Primary Care Provide r Jorge Jorge DO Unavailable [phone] Rene Harris MD Unavailable Emiliano Washington DO Unavailable [phone] Allergies Active Allergy Reactions Criticality Noted Date [...] total) by mouth daily 11/07/19 24 025 Discontinued(Pa karthik Reported) isosorbide mononitrate ER (IMDUR) 60 mg 24 hr tablet Take 1 tablet (60 mg total) by mouth every morning 01/23/20 025 Discontinued(Pa annt Reported) amLODIPine (NORVASC) 5 mg tablet Take 1 tablet (5 mg total) by mouth daily 02/09/20 025 Discontinued(Pa karthik Reported) Active Problems Problem Noted Date Diagnosed [...] - 07/28/2024 12:46 PM CDT Hospital Encounter [address] [id number] Cleveland Mathis MD Burton, Edward Vega, DO Discharge Disposition: Discharge to home or self care 07/02/2024 12:45 PM CDT Office Visit [facility] [address] [address] Acute myocardial infarction, subendocardial infarction, initial episode of care (HCC) (Primary Dx) 06/25/2024 12:45 PM CDT Office Visit [address] [address] Acute myocardial infarction, subendocardial infarction, initial episode of care (HCC) (Primary Dx) 06/23/2024 12:45 PM CDT Office Visit [facility] [address] [address] Acute myocardial infarction, subendocardial infarction, initial episode of care (HCC) (Primary Dx) 06/19/2024 10:00 AM CDT Office Visit [address] [address] NSTEMI (non-ST elevation myocardial infarction) (HCC) from Last 3 Months Immunizations Immunization Administration [...] on file 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 Gender Identity Not on file Sexual Orientation [...] 07/26/2024 1:22 AM CDT Plan of Treatment Health Maintenance Due Date Last Done Comments Albumin Creatinine Ratio, Urine 1955 Colon Cancer Screening-Colonoscopy 1955 Hepatitis C Screening 1955 Prostate Cancer Screening-PSA 1955 Dilated Eye Exam 1955 Foot Exam 1955 Hepatitis B Screening 05/05/1973 Pneumococcal vaccine 65+ (1 of 2 - PCV) 05/05/1974 Zoster Vaccine (1 of 2) 05/05/1974 Hemoglobin A1C 03/21/2018 09/18/2017 Lipid Panel 09/18/2018 09/18/2017 Abdominal Aortic Aneurysm (A AA) Screen 05/05/2020 Well Visit 65+ 05/05/2020 Influenza Vaccine (Season Ended) 2024 Depression Screening 06/19/2025 06/19/2024, 09/17/2017, 09/17/2017 Fall Risk Assessment 07/28/2025 07/28/2024 eGFR 07/28/2025 07/28/2024, 06/0 02/2024, 07/26/2024, Additional history exists DTaP/Tdap/Td Vaccine (2 - Td or Tdap) 02/06/2027 02/06/2017 Medical Devices Implanted Type 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 Welder Apprentice Combination Device Identifier Shelf Expiration Date Model / Serial / Lot [employer]Reports Synergy Xd Monorail 4mm 32mm 144cm Delivery System 1 Access Port [id number] - [id number] Implanted:Qty: 1 on 02/12/2024 by Rene Harrsi MD at [facility] [employer] [facility] 11/28/2024 [id number] / / [id number] Procedures Procedure Name Priority Date/Time Associated Diagnosis [...] Results * Ferritin (07/28/2024 8:33 AM CDT) Pathologist [facility] Ferritin 183 30 - 400 ng/mL Blood 07/28/2024 8:33 AM CDT 07/28/2024 8:38 AM CDT Emiliano Washington DO LAB BLOOD ORDERABLES Final Result Performing Organization Address City/[facility]/ZIP Co de Phone Number NINA DAVID [address] [address] [employer] [place], [place] [phone] * POCT glucose (07/28/2024 6:56 AM CDT) Pathologist [facility] Glucose, POC 152 70 - 199 mg/dL POC Performer [id number] [facility] Blood 07/28/2024 6:56 AM CDT 07/28/2024 6:56 AM CDT Edward Witt DO LAB POCT ORDERABLES - DEV ICE Final Result Performing Organization Address City/[facility]/ZIP Co de Phone Number NINA DAVID [address] [address] Department [place] [address] * (ABNORMAL) eGFR (07/28/2024 5:50 AM CDT) Pathologist [facility] eGFR 48(L) >=60 mL/min/1. 73 m2 Comment: [...] DO LAB BLOOD ORDERABLES Alicia ordaz Result [facility] [address] [address] Department of Laboratories [place] [phone] * (ABNORMAL) CBC without differential (07/28/2024 5:50 AM CDT) Pathologist [facility] WBC 5.01 3.80 - 9.90 K/cumm Hgb 8.3(L) 13.0 - 17.5 g/dL [facility] Hct 25.7(L) 38.9 - 50.3 % [facility] Plt 130(L) 150 - 400 K/cumm [facility] MPV 9.5 9.1 - 12.3 fL [facility] RBC 2.68(L) 4.30 - 5.80 M/cumm [facility] MCV 95.9 81.3 - 96.4 fL [facility] MCH 31.0 27.1 - 33.3 pg [facility] MCHC 32.3 32.3 - 35.7 g/dL [facility] RDW CV 15.7(H) 11.1 - 14.9 % [facility] RDW SD 54.1(H) 35.7 - 48.1 fL [facility] NRBC abs 0.00 0.00 - 0.01 K/cumm [facility] Blood 07/28/2024 5:50 AM CDT 07/28/2024 6:24 AM CDT Edward Witt LAB BLOOD ORDERABLES Alicia l Result NINA DAVID [address] [address] [place] [address] * (ABNORMAL) Basic metabolic panel (07/28/2024 5:50 AM CDT) Sodium 136 135 - 145 mmol/L Potassium, pl 4.9 3.3 - 4.9 mmol/L [facility] Chloride 109 97 - 110 mmol/L [facility] CO2 16(L) 22 - 32 mmol/L [facility] Anion gap 11 2 - 15 mmol/L [facility] BUN 34(H) 6 - 25 mg/dL [facility] Creatinine 1.55(H) 0.80 - 1.30 mg/dL [facility] Glucose 138 70 - 199 mg/dL [facility] Comment: Interpretive Data Fasting glucose [...] 2022. Calcium 8.7 8.5 - 10.3 mg/dL [facility] Blood 07/28/2024 5:50 AM CDT 07/28/2024 6:24 AM CDT Edward Witt LAB BLOOD ORDERABLES Alicia ordaz Result Performing Organization Address City/[facility]/ZIP Co de Phone Number NINA DAVID [address] [place] [address] * (ABNORMAL) POCT glucose (07/27/2024 9:07 PM CDT) Glucose, POC 232(H) 70 - 199 mg/dL POC Performer [id number] [facility] Blood 07/27/2024 9:07 PM CDT 07/27/2024 9:07 PM CDT [facility] POCT ORDERABLES - DEV ICE Final Result Performing Organization Address [facility] de Phone Number NINA DAVID [address] [address] [facility] [place] [address] * Lactate (07/27/2024 7:36 PM CDT) Lactate 0.8 0.7 - 2.0 mmol/L Blood 07/27/2024 7:36 PM CDT 07/27/2024 7:46 PM CDT [facility] BLOOD ORDERABLES Alicia l Result Performing Organization Address [facility] de Phone Number NINA DAVID [address] [address] [facility] [place] [address] * POCT glucose (07/27/2024 5:27 PM CDT) Glucose, POC 129 70 - 199 mg/dL POC Performer [id number] [facility] Blood 07/27/2024 5:27 PM CDT 07/27/2024 5:27 PM CDT [facility] POCT ORDERABLES - DEV ICE Final Result Performing Organization Address [facility] de Phone Number NINA DAVID [address] [address] [facility] [place] [address] * (ABNORMAL) POCT glucose (07/27/2024 12:40 PM CDT) Glucose, POC 262(H) 70 - 199 mg/dL POC Performer [id number] [facility] Blood 07/27/2024 12:4 0 PM CDT 07/27/2024 12:40 PM CDT Edward Witt DO LAB POCT ORDERABLES - DEV ICE Final Result Performing Organization Address [facility] Co de Phone Number NINA DAVID [address] [place] [address] * (ABNORMAL) Urinalysis reflex to microscopic (07/27/2024 [...] tendency for uric acid stone formation. Source: [facility] Epic! Current Interpretive Data was last revised on [...] Reflex to microscopic UA will be performed. [facility] Urine 07/27/2024 11:1 2 AM CDT 07/27/2024 11:23 AM CDT Edward Witt DO LAB URINE ORDERABLES Alicia l Result Performing Organization Address City/[facility]/ZIP Co de Phone Number NINA DAVID [address] [address] [place] [address] * (ABNORMAL) Urinalysis, microscopic only (07/27/2024 11:12 AM CDT) WBC, ur >50(A) 0 - 5 /HPF RBC, ur 6-10(A) 0 - 2 /HPF [facility] Epithelial cells, squamous, ur 1-5 0 - 5 /HPF [facility] Urine 07/27/2024 11:1 2 AM CDT 07/27/2024 11:23 AM CDT [facility] URINE ORDERABLES Alicia l Result Performing Organization Address City/[facility]/ZIP Co de Phone Number [facility] [address] [place] [address] * POCT glucose (07/27/2024 6:09 AM CDT) Glucose, POC 190 70 - 199 mg/dL POC Performer [id number] [facility] Blood 07/27/2024 6:09 AM CDT 07/27/2024 6:09 AM CDT [facility] POCT ORDERABLES - DEV ICE Final Result Performing Organization Address [facility] Co de Phone Number NINA DAVID [address] Department [place] [address] * (ABNORMAL) eGFR (07/27/2024 4:26 AM CDT) eGFR 44(L) >=60 mL/min/1. 73 m2 Comment: [...] AM CDT 07/27/2024 4:36 AM CDT [facility] BLOOD ORDERABLES Alicia l Result Performing Organization Address [facility] Co de Phone Number NINA DAVID [address] [address] [place] [address] * (ABNORMAL) CBC without differential (07/27/2024 4:26 AM CDT) WBC 4.08 3.80 - 9.90 K/cumm Hgb 7.7(L) 13.0 - 17.5 g/dL [facility] Hct 25.0(L) 38.9 - 50.3 % [facility] Plt 112(L) 150 - 400 K/cumm [facility] MPV 9.5 9.1 - 12.3 fL [facility] RBC 2.49(L) 4.30 - 5.80 M/cumm [facility] MCV 100.4(H) 81.3 - 96.4 fL [facility] MCH 30.9 27.1 - 33.3 pg [facility] MCHC 30.8(L) 32.3 - 35.7 g/dL [facility] RDW CV 15.8(H) 11.1 - 14.9 % [facility] RDW SD 57.8(H) 35.7 - 48.1 fL [facility] NRBC abs 0.00 0.00 - 0.01 K/cumm [facility] Blood 07/27/2024 4:26 AM CDT 07/27/2024 4:37 AM CDT Edward Witt LAB BLOOD ORDERABLES Alicia ordaz Result Performing Organization Address City/[facility]/ZIP Co de Phone Number NINA DAVID [address] [place] [address] * (ABNORMAL) Basic metabolic panel (07/27/2024 4:26 AM CDT) Sodium 136 135 - 145 mmol/L Potassium, pl 5.2(H) 3.3 - 4.9 mmol/L [facility] Chloride 112(H) 97 - 110 mmol/L [facility] CO2 15(L) 22 - 32 mmol/L [facility] Anion gap 9 2 - 15 mmol/L [facility] BUN 33(H) 6 - 25 mg/dL [facility] Creatinine 1.67(H) 0.80 - 1.30 mg/dL [facility] Glucose 175 70 - 199 mg/dL [facility] Comment: Interpretive Data Fasting glucose [...] 2022. Calcium 8.9 8.5 - 10.3 mg/dL [facility] Blood 07/27/2024 4:26 AM CDT 07/27/2024 4:36 AM CDT Edward Witt DO LAB BLOOD ORDERABLES Alicia l Result [facility] [address] Department [place] [address] * (ABNORMAL) Hemoglobin and hematocrit (07/26/2024 10:12 PM CDT) Hgb 7.8(L) 13.0 - 17.5 g/dL Hct 24.9(L) 38.9 - 50.3 % [facility] Blood 07/26/2024 10:1 2 PM CDT 07/26/2024 10:21 PM CDT Narrative [facility] - 07/26/2024 10:27 PM CDT 1 hour after the red blood cell transfusion is complete. Edward Witt LAB BLOOD ORDERABLES Alicia l Result Performing Organization Address [facility]/ZIP Co de Phone Number NINA DAVID [address] [facility] [place], [place] [id number] * Transfuse RBC (07/26/2024 9:19 PM CDT) Blood Edwadr Witt BLOOD TRANSFUSION ORDERAB LES Final Result Performing Organization Address [facility]/ZIP Co de Phone Number NINA Mcclell[address] Department [place] [address] * (ABNORMAL) POCT glucose (07/26/2024 8:34 PM CDT) Glucose, POC 261(H) 70 - 199 mg/dL POC Performer [id number] [facility] Blood 07/26/2024 8:34 PM CDT 07/26/2024 8:34 PM CDT [facility] LAB POCT ORDERABLES - DEV ICE Final Result Performing Organization Address [facility] Co de Phone Number NINA Mcclellan[address] Department [employer] [place], [place] [phone] * (ABNORMAL) POCT glucose (07/26/2024 5:07 PM CDT) Glucose, POC 298(H) 70 - 199 mg/dL POC Performer [id number] [facility] Blood 07/26/2024 5:07 PM CDT 07/26/2024 5:07 PM CDT Edward Witt LAB POCT ORDERABLES - DEV ICE Final Result Performing Organization Address [facility] Co de Phone Number NINA DAVID [address] [address] [place], [place] [phone] * Urea nitrogen, urine, random (07/26/2024 3:50 PM CDT) Urea nitrogen, ur 541 mg/dL Comment: Interpretive Data No reference range established. Current interpretive data was last revised 2018. Urine 07/26/2024 3:50 PM CDT 07/26/2024 3:57 PM CDT Sameed Lore Johnson MD LAB URINE ORDERABLES Alicia l Result Performing Organization Address City/[facility] Co de Phone Number NINA [address] [address] [place] [address] * Sodium, urine, random (07/26/2024 3:50 PM CDT) Sodium, ur 98 mmol/L Comment: Interpretive Data No reference range established. Current interpretive data was last revised 2018. Urine 07/26/2024 3:50 PM CDT 07/26/2024 3:57 PM CDT Sameed Lore Johnson MD LAB URINE ORDERABLES Alicia l Result Performing Organization Address [facility] Co de Phone Number NINA [address] [address] Department [place] [place] [address] * Creatinine, urine, random (07/26/2024 3:50 PM CDT) Creatinine Ur 69.4 mg/dL Comment: Interpretive Data No reference range established. Current interpretive data was last revised 2018. Urine 07/26/2024 3:50 PM CDT 07/26/2024 3:57 PM CDT Sameed Lore Johnson MD LAB URINE ORDERABLES Alicia l Result Performing Organization Address City/[facility] Co de Phone Number NINA [address] [address] [facility] [place] [address] * Check Sample (07/26/2024 3:13 PM CDT) ABO Rh A Positive CH HCLL OTHER 07/26/2024 3:13 PM CDT 07/26/2024 3:14 PM CDT Edward Witt LAB BLOOD ORDERABLES Alicia l Result Performing Organization Address [facility]/ZIP Co de Phone Number NINA DAVID [address] [address] [employer] [place], [place] [id number] CH * Type and screen (07/26/2024 2:18 PM CDT) Pathologist [facility] ABO Rh A Positive Sergio, indirect Negative [facility] Blood 07/26/2024 2:18 PM CDT 07/26/2024 2:26 PM CDT Narrative NINA - 07/26/2024 3:15 PM CDT Has the patient had Daratumumab or Isatuximab in the past 6 months?->Unknown Edward Witt LAB BLOOD BANK TEST ORDER ZOE Final Result Performing Organization Address [facility]/ZIP Co de Phone Number CLARENCEWICHO DAVID [address] [address] Department [place] [address] * (ABNORMAL) POCT glucose (07/26/2024 11:38 AM CDT) Pathologist [facility] Glucose, POC 346(H) 70 - 199 mg/dL POC Performer [id number] [facility] Blood 07/26/2024 11:3 8 AM CDT 07/26/2024 11:38 AM CDT Edward Witt [facility] POCT ORDERABLES - DEV ICE Final Result Performing Organization Address City/[facility] Co de Phone Number CLARENCEWICHO DAVID [address] [address] [facility] [place] [address] * (ABNORMAL) Iron profile w/ IBC (07/26/2024 9:13 AM CDT) [facility] Iron 110 50 - 150 mcg/dl TIBC 219(L) 250 - 400 mcg/dL [facility] Transferrin saturation 50 20 - 50 % [facility] Blood 07/26/2024 9:13 AM CDT 07/28/2024 1:12 AM CDT [facility] LAB BLOOD ORDERABLES Alicia l Result Performing Organization Address [facility] de Phone Number NINA [address] [address] [facility] [place] [address] * Folate (07/26/2024 9:13 AM CDT) Pathologist [facility] Folic acid 7.4 >=5.0 ng/mL Comment:Hemolysis present. R esults may be affected. Blood 07/26/2024 9:13 AM CDT 07/28/2024 1:12 AM CDT [facility] BLOOD ORDERABLES Alicia l Result Performing Organization Address [facility] de Phone Number NINA [address] [address] Department [place] [address] * Vitamin B12 (07/26/2024 9:13 AM CDT) [facility] Vitamin B12 907 230 - 1,250 pg/mL Blood 07/26/2024 9:13 AM CDT 07/28/2024 1:[address] [facility] LAB BLOOD ORDERABLES Alicia l Result Performing Organization Address [facility] de Phone Number NINA [address] [address] [facility] [place] [address] * Prepare RBC: 1 Units (07/26/2024 8:27 AM CDT) Pathologist [facility] Product code [id number] Unit Number [id number] [facility] Product Blood Type APOS [facility] Dispense Status PRESUMED TRANSFUSED [facility] Blood 07/26/2024 8:27 AM CDT Narrative NINA CH - 07/28/2024 10:15 AM CDT Are special requirements needed? (All products are leukoreduced and CMV- safe)- >No Date required:-[id number] LRRBC # of [id number] Reasons:-Hgb <7 g/dL} Edward Witt DO BLOOD BANK PRODUCT ORDERA BLES Final Result Performing Organization Address City/[facility]/ZIP Co de Phone Number [facility] [address] [address] [place] [address] * POCT glucose (07/26/2024 7:42 AM CDT) Glucose, POC 196 70 - 199 mg/dL POC Performer [id number] [facility] Blood 07/26/2024 7:42 AM CDT 07/26/2024 7:42 AM CDT Cleveland Mathis MD LAB POCT ORDERABLES - DEVICE Final Result Performing Organization Address [facility] Co de Phone Number NINA [address] [address] Department [place] [address] * (ABNORMAL) eGFR (07/26/2024 4:40 AM CDT) eGFR 32(L) >=60 mL/min/1. 73 m2 Comment: [...] AM CDT 07/26/2024 4:52 AM CDT us Janeenotf Diego ELENA LAB BLOOD ORDERABLES Final R esult [facility] [address] [address] Department [place] [address] * (ABNORMAL) Differential, auto (07/26/2024 4:40 AM CDT) Neutrophil abs 3.71 1.50 - 6.50 K/cumm Imm gran abs 0.02 0.00 - 0.10 K/cumm [facility] Lymphocyte abs 0.64(L) 0.80 - 3.30 K/cumm [facility] Monocyte abs 0.29 0.20 - 0.80 K/cumm [facility] Eosinophil abs 0.19 0.00 - 0.50 K/cumm [facility] Basophil abs 0.02 0.00 - 0.10 K/cumm [facility] Neutrophil pct 76.2 % [facility] Comment: Interpretive Data Percent cell count reference ranges are not reported, since discordance with absolute values may lead to misinterpretation of CBC data. Current Interpretive Data was last revised on 2017. Imm gran pct 0.4 % [facility] Comment: Interpretive Data Percent cell count reference ranges are not reported, since discordance with absolute values may lead to misinterpretation of CBC data. Current Interpretive Data was last revised on 2017. Lymphocyte pct 13.1 % [facility] Comment: Interpretive Data Percent cell count reference ranges are not reported, since discordance with absolute values may lead to misinterpretation of CBC data. Current Interpretive Data was last revised on 2017. Monocyte pct 6.0 % [facility] Comment: Interpretive Data Percent cell count reference ranges are not reported, since discordance with absolute values may lead to misinterpretation of CBC data. Current Interpretive Data was last revised on 2017. Eosinophil pct 3.9 % [facility] Comment: Interpretive Data Percent cell count reference ranges are not reported, since discordance with absolute values may lead to misinterpretation of CBC data. Current Interpretive Data was last revised on 2017. Basophil pct 0.4 % [facility] Comment: Interpretive Data Percent cell count reference ranges are not reported, since discordance with absolute values may lead to misinterpretation of CBC data. Current Interpretive Data was last revised on 2017. Blood 07/26/2024 4:40 AM CDT 07/26/2024 4:52 AM CDT Randall Cortez NP LAB BLOOD ORDERABLES Final R esult [facility] [address] [address] Department [place] [address] * (ABNORMAL) CBC with auto differential (07/26/2024 4:40 AM CDT) WBC 4.87 3.80 - 9.90 K/cumm Hgb 6.9(L) 13.0 - 17.5 g/dL [facility] Hct 22.2(L) 38.9 - 50.3 % [facility] Plt 116(L) 150 - 400 K/cumm [facility] MPV 9.4 9.1 - 12.3 fL [facility] RBC 2.21(L) 4.30 - 5.80 M/cumm [facility] MCV 100.5(H) 81.3 - 96.4 fL [facility] MCH 31.2 27.1 - 33.3 pg [facility] MCHC 31.1(L) 32.3 - 35.7 g/dL [facility] RDW CV 15.8(H) 11.1 - 14.9 % [facility] RDW SD 58.2(H) 35.7 - 48.1 fL [facility] NRBC abs 0.00 0.00 - 0.01 K/cumm [facility] Blood 07/26/2024 4:40 AM CDT 07/26/2024 4:52 AM CDT Randall Cortez NP LAB BLOOD ORDERABLES Final R esult Performing Organization Address [facility]/ZIP Co de Phone Number NINA [address] [place] [address] * (ABNORMAL) Comprehensive metabolic panel (07/26/2024 4:40 [...] CH Albumin 3.6 3.5 - 5.0 g/dL [facility] Alk phos 104 40 - 130 Units/L [facility] ALT 10 7 - 55 Units/L [facility] AST 19 10 - 50 Units/L [facility] Blood 07/26/2024 4:40 AM CDT 07/26/2024 4:52 AM CDT Randall Cortez NP LAB BLOOD ORDERABLES Final R ult NINA [address] [facility] Department [place] [address] * (ABNORMAL) Hemoglobin A1c (09/18/2017 6:16 AM CDT) Hgb A1C 7.2(H) 4.0 - 5.6 % [facility] Estimated Average Glucose 160 mg/dL [facility] Comment: The ADA recommends reporting an estimated Average Glucose (eAG) with all Hemoglobin A1c results using the equation derived from a study of 507 normal and diabetic adults. Minority populations were underrepresented and children were not included. (Diabetes Care 31:5542-1135, 2008). The eAG is not equivalent to a fasting glucose. Blood specimen (specimen) 09/18/2017 6:16 AM CDT 09/18/2017 7:44 AM CDT Narrative [facility] - 09/18/2017 8:10 AM CDT Aiden Parker MD LAB BLOOD ORDERABLES Final Result [facility] Department [place] [address] * (ABNORMAL) Lipid panel (09/18/2017 6:16 AM CDT) Pathologist [facility] Cholesterol 140 30 - 200 mg/dL [facility] Comment: Interpretive Data Desirable: <200 mg/dL Borderline high: 200-239 mg/dL High: > or = 240 mg/dL Literature Reference: National Cholesterol Education Program (NCEP) Expert Panel on Detection, Evaluation, and Treatment of High Blood Cholesterol in Adults (Adult Treatment Panel III). Circulation 2004; 110:227. Current interpretive data was last revised on 2014. Triglycerides 95 0 - 150 mg/dL [facility] Comment: Interpretive Data Desirable: < 150 mg/dL Borderline High: 150 - 199 mg/dL High: 200 - 499 mg/dL Very High: > or = 499 mg/dL Literature Reference: See Cholesterol Current interpretive data was last revised on 2014. HDL 32(L) >=40 mg/dL [facility] Comment: Interpretive Data Less than 40 mg/dL - low; A major risk factor for heart disease. Greater than or equal to 60 mg/dL - High; considered protective of heart disease. Literature Reference: See Cholesterol Current interpretive data was last revised on 2014. LDL, calculated 89 10 - 129 mg/dL [facility] Comment: Interpretive Data Optimal: < 100 mg/dL Near Optimal: 100 - 129 mg/dL Borderline High: 130 - 159 mg/dL High: 160 - 189 mg/dL Very high: > or = 190 mg/dL Literature Reference: See Cholesterol Current interpretive data was last revised on 2014. Non-HDL Cholesterol 108 mg/dL [facility] Comment: Interpretive Data When triglycerides are >200 mg/dL, non-HDL C is a secondary target of therapy, with a goal 30 mg/dL higher than the identified LDL-C goal. Reference: See Cholesterol Reference. Current interpretive data was last revised 2014. Blood specimen (specimen) 09/18/2017 6:16 AM CDT 09/18/2017 7:42 AM CDT Narrative [facility] - 09/18/2017 6:[address] AIDEN PARKER 09/18/2017 17:13:25 CDT Aiden Parker MD LAB BLOOD ORDERABLES Final Result [facility] Department [place] [address] from Last 3 Months or Most Recently Relevant to Health Maintenance Insurance [facility] MEDICARE HMO Advance Directives For more information, please contact: [phone] * Full Code (Latest Code Status on File) Date Activated Date Inactivated Comments 07/26/2024 1:39 AM 07/28/2024 4:56 PM * Full Code Date Activated Date Inactivated Comments 02/12/2024 3:20 PM 02/13/2024 2:36 PM * Full Code Date Activated Date Inactivated Comments 09/18/2017 5:47 AM 09/19/2017 5:05 PM Care Teams Senior Support Analyst Relationship Specialty Start Date End Date Krish Hooper MD [address] [place] [address] PCP - General Internal Medicine 12/07/17 Jorge Jorge DO [address] [place] [id number] Medical Oncologist/Watch Repairer Apprentice Hematology and Oncology 12/11/18 Rene Harris MD [address] [place] [address] Consulting Physician Cardiology 02/13/24 Emiliano Washington DO [facility] [address] Consulting Physician Nephrology 07/28/24
--- OUTSIDE RECORDS SUMMARY | 2024-07-29 09:05 | XMS_ITS | Encounter Summary ---
Author Organization [facility] Address [address] [place] [place] [address] Care Team Providers Care Java Portal Developer Name Role Phone Shay Hooper MD Primary Care Provider Encounter Details Date Type Department Care Team (Late st Contact Info) Description 08/01/2018 [facility] Outpatient Visit [facility] [address] [place] [address] [place] [address] [phone] Social History Tobacco Use Types Packs/Day Years Used Date Smoking Tobacco: Every Day Cigarettes Smokeless Tobacco: Never Alcohol Use Standard Drinks/Week Comments Yes 0 (1 standard drink = 0.6 oz pur e alcohol) RARE Sex and Gender Information Value Date Recorded Sex Assigned at Not on file 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 Gender Identity Not on file Sexual Orientation Not on file documented as of this encounter Plan of Treatment Upcoming Encounters Date Type Department Care Team (Late st Contact Info) Description 05/08/2025 11:00 AM CDT Office Visit [facility] [place] [address] [facility] [place] [phone] Phyllis Pereira, GLUE BONE DRIER-HOOP RIVETER [address] [facility] [address] [place] [address] documented as of this encounter Visit Diagnoses Not on filedocumented in this encounter Care Teams Java Portal Developer Relationship Specialty Start Date End Date Shay Hooper MD [address] [place] [phone] PCP - General Internal Medicine 11/14/17 documented as of this encounter
--- OUTSIDE RECORDS SUMMARY | 2024-07-29 09:05 | XMS_ITS | Clinical Summary ---
Author Organization [facility] Address [address] [place] [address] Care Team Providers Care Marketing Financial Analyst Name Role Phone Shay Hooper MD Primary Care Provider Source Comments [facility],non-owned Affiliates and Associated Physician Practices is amultiple site organization consisting of ambulatory clinics and hospital sitesin [place], [place], [place] and [place]. This disclosure is being madepursuant to the Care Everywhere program and may not contain all information available regarding this patient. Last updated 17.[facility] Allergies Active Allergy Reactions Criticality Noted Date Comments Codeine Nausea and/or Vomiting Low 10/28/2013 Penicillamine Rash Medium 10/28/2013 Torsemide Rash Medium 10/04/2021 Medications * Be aware that medications may not be up to date on this document. Alwaysverify current medications with the patient. pantoprazole EC (PROTONIX) 40 MG tablet Take [...] (one) capsule by mouth 3 times daily Active Acetaminophen (TYLENOL) 325 MG CAPS Take 325 [...] (Norvasc) 5 MG tablet every 24 hours 3 Active albuterol HFA (Proventil; Ventolin; Proair) 108 (90 Base) MCG/ACT inhaler every 4 hours Active warfarin (Coumadin) 5 MG tablet Take 1 (one) tablet by mouth once daily 4 Active Active Problems Problem Noted Date Diagnosed Date Symptomatic stenosis of righ t carotid artery without infarction 08/07/2018 Alcoholic cirrhosis of liver 11/14/2017 Encounters Date Type Department Care Team Description 05/08/2024 11:30 AM CDT Office Visit [facility] - [address] [place] [address] Phyllis Pereira, POOL TABLE MECHANIC-POLISHER DIAL Alcoholic cirrhosis of liver without ascites (Primary [...] Date Smoking Tobacco: Every Day Cigarettes 1 12.4 Started: 2012 Smokeless Tobacco: Never Tobacco Cessation:Ready to Q uit: Not Asked; Counseling Given: Not Answered Alcohol Use Standard Drinks/Week Comments Not Currently 0 (1 standard drink = 0.6 oz pur e alcohol) ocassional beer/nahid Sex and Gender Information Value Date Recorded Sex Assigned at Not on file Legal Sex Male 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 Gender Identity Not on file Sexual Orientation [...] 1:11 PM CDT Height 180.3 cm (5' 11) 05/08/2024 12:13 PM CDT Body Mass Index 28.17 12/29/2019 10:36 AM VENDOR MANAGEMENT ASSOCIATE Plan of Treatment Upcoming Encounters Date Type Department Care Team (Late st Contact Info) Description 05/08/2025 11:00 AM CDT Office Visit [facility] - [place] [address] [facility] [place] [phone] Phyllis Pereira, POOL TABLE MECHANIC-POLISHER DIAL [address] [facility] [place], [place] [phone] Health Maintenance Due Date Last Done Comments [...] 2015 AAA SCREENING 05/05/2020 COVID-19 VACCINE ( - season) 2023 DEPRESSION SCREENING 02/27/2024 MEDICARE AWV CALENDAR YEAR 2024 INFLUENZA VACCINE (Season Ended) 2024 SCREENING FOR DIABETES 04/09/2026 4, 04/04/2023, 03/29/2023, Additional history exists HIB VACCINE Aged Out [...] track( 025 12:09 PM CDT) No Rogelio Coleman RN Note: Expected end date: Interventions: Take [...] the bathroom Medical Devices Implanted Type Area Smeller Device Identifier Shelf Expiration Date Model / Serial / Lot Patch Tien Eptfe 1 X 9 X .5mm - [id number] Implanted:Qty: 1 on 08/07/2018 by Angelo Wu MD at [facility] Right: Carotid [employer] 05/30/2023 [id number] / [id number] / Procedures Procedure Name Priority Date/Time Associated Diagnosis Comments GLUCOSE - POINT OF CARE Routine 08/08/2018 7:16 AM CDT from Last 3 Months or Most Recently Relevant to Health Maintenance Results * (ABNORMAL) GLUCOSE - POINT OF CARE (08/08/2018 7:16 AM CDT) [facility] Glucose WB/POC 265(H) 70 - 106 mg/dL 08/08/2018 8:34 AM CDT [facility] Specimen Type Venous 08/08/2018 8:34 AM CDT [facility] Blood BLOOD SPECIMEN / Unknown 08/08/2018 7:16 AM CDT 08/08/2018 8:34 AM CDT Narrative [facility] - 08/08/2018 8:34 AM CDT (2) Provider Notified Angelo Wu MD LAB - POINT OF CARE ORDERABL ES Final Result Performing Organization Address City/State/[facility] Co de Phone Number [facility] [address] [place] [address] from Last 3 Months or Most Recently Relevant to Health Maintenance Insurance [employer] MEDICARE ADV HMO & PPO [employer] SELF PAY NO INSURANCE Member Subscriber Plan / Payer (Ef fective for All Dates) Name:Jack Treviño Member ID:Not on file Relation to Subscriber:Not on file Name:JACK TREVIÑO Subscriber ID:Not on file (Home) Address: [address] [place] [address] Payer ID:Not on file Group ID:Not on file Type:Self Pay Address: [place], [place] [employer] MEDICARE ADV HMO & PPO [place] [address] Advance Directives * Full Code (Latest Code Status on File) Date Activated Date Inactivated Comments 08/07/2018 5:20 PM 08/08/2018 1:06 PM Care Teams Marketing Financial Analyst Relationship Specialty Start Date End Date Shay Hooper MD [address] [phone] PCP - General Internal Medicine 11/14/17
--- OUTSIDE RECORDS SUMMARY | 2024-07-29 09:06 | XMS_ITS | Encounter Summary ---
Author Organization [facility] Healthcare Address [address] [place] [address] Care Team Providers Care Office Runner Name Role Phone Naman Hooper MD Primary Care Provide r Jorge Jorge DO Unavailable [phone] Rene Harris MD Unavailable Emiliano Low DO Unavailable [phone] Reason for Visit * Auth/Cert (Routine) Specialty Diagnoses / Procedures Referred By Contac t Referred To Contact Diagnoses Chest pain Chest pain Telemetry Procedures NA Referral ID Status Reason Start Date Expiration Date Visits Re quested Visits Authorized [id number] 1 1 Encounter Details Date Type Department Care Team (Latest Contact Info) Description 07/26/2024 1:18 AM CDT - 07/28/2024 12:46 PM CDT Hospital Encounter [facility] [address] [place] [address] [place] [id number] [employer] [address] [address] [place] [id number] [employer] [address] [address] Discharge Disposition: Discharge to home or self care Social History Tobacco Use Types Packs/Day Years [...] on file 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 providers found Primary Care Physician at Discharge: Naman Hooper MD [phone] Admission Date: 07/26/2024 Discharge Date: 07/28/2024 Admission Location: [facility] Problems/Diagnoses: Principal Problem: Chest pain Coronary artery disease Acute kidney injury on CKD stage 4 Metabolic acidosis Moderate protein-calorie malnutrition Type 2 diabetes Urinary tract infection DETAILS OF HOSPITAL STAY Presenting Problem/History of Present Illness: Patient is a 69 y.o. male who presented to [facility] with complaints of chestpain. The patient has history of CAD with stent placement reports taking 2 nitro sublingual withoutrelief. Patient reports associated shortness of breath and diaphoresis. On evaluation patient's initial troponin was negative, EKG showed new ST depressions. Cardiology was consulted and they recommended transfer patient to [facility] for further cardiology evaluation. Hospital Course: Chest pain - Left-sided chest pain; abnormal EKG - Recent stress test showed fixed defect in the anterior wall - s/p sublingual nitro and morphine - Consult to cardiology - cleared for dc ; cont medical management. Coronary artery disease - s/p PCI with stents to LAD and RCA - Continue Plavix and Xarelto; not taking aspirin - Continues to follow Cardiology LAI on CKD stage 4 - back to baseline - Monitor renal function closely and avoid nephrotoxins - Consult to nephrology - appreciate recommendations Metabolic acidosis Hyperkalemia - CO2 15, anion gap 9 -K+ 5.2 > Administer Lokelma - cont on sodium bicarbonate - Continue to monitor Carotid artery stenosis - Recent carotid Dopplers showed >70% L ICA and <50% R ICA - Patient was referred to vascular surgery - Continue Plavix Diabetes mellitus type 2 - With hyperglycemia - Started on lispro sliding scale Hyperlipidemia - Continue atorvastatin Bladder carcinoma - Had recent prostate surgery - Monitor urine output closely Urinary tract infection - UA with 4+ leuk esterase, > 50 wbc and complaints of dysuria - Rocephin transition to cefdinir Chronic anemia - Secondary to renal failure/hematuria - Transfuse 1 unit of PRBCs>> improved to 7.7 - continue to trend - Monitor hemoglobin closely Tobacco abuse - Encourage immediate cessation - Declined nicotine patch Patient is medically stable for discharge and to follow-up with cardiology and urology as outpatient Discharge Details Physical Exam at Discharge: Discharge Condition: and Urology as outpatient Pulse: 89 Resp: 18 BP: 129/60 Temp: 37 ??C (98.6 ??F) Weight: 73.9 kg (163 lb) Pertinent Exam Findings at Discharge: Physical Exam: General: This is a 69 y.o. male in no acute distress. Head: Normocephalic, atraumatic. Eyes: PERRLA, EOMI bilaterally. No conjunctival injection. ENT: Nasal cavity is patent. Mucus membranes are pink and moist without bleeding. Neck: Supple. No JVD.Trachea is in the midline position. Lungs: Diminished lung sounds bilaterally. No wheezing auscultated. Heart: S1 and S2, RRR, No murmur auscultated. Abdomen: soft, nontender. Bowel sounds are present. No masses Extremities: No cyanosis, clubbing or edema. 1+ pedal pulses Neuro: Patient is awake and alert x 3. Speech is clear and coherent. Psychiatric: Normal mood and affect. Behavior is normal. Skin: Warm and dry. No rashes or lesions. Discharge Disposition: Patient will be discharged to:home Code Status at Discharge: full Dc>35 mins Discharge Instructions: Activity Instructions Discharge Activity: Walking -You may walk as tolerated. Discharge activity: Resume normal activity Diet Instructions Adult Discharge Diet Diet Type: Return to previous diet Recommend eating small/frequent meals, such as 6 to 8 small meals/snacks during the day. Eat slowlyand chew thoroughly to prevent becoming full too quickly. Limit the amount of liquids you drink at meals. Drink liquids between meals. Choose liquids of high nutritive value, such as juices, milkshakes, or Boost/Ensure. Keep high calorie snackshandy to eat when you are hungry. Try peanut butter, cheese, ice cream, granola bars, avocados, eggs, [place] yogurt, etc. Calorie Boosting Tips: Add butter or margarine to soups, veggies, potatoes, cooked cereal, pasta, bread, crackers Spread cream cheese on bread, rolls, bagels or use it as fruit dip Add raisins, dates, or chopped nuts to hot cereal and desserts Top meat, vegetables, or bread with gravy Mix fruit, nuts, granola, honey, or dry cereal with yogurt Protein Boosting Tips: Add dry milk powder to milk, cereal, soup, gravy, casseroles, desserts Use milk to replace water in recipes Add meat to soups, casseroles, pasta dishes, or vegetables Mix cheese in sauces, soups, or vegetables Melt cheese over bread, vegetables, potatoes, on sandwiches. Add shredded cheese to soups and salads. Eat peanut butter on crackers, bread, toast, waffles, or celery sticks. May also add to milkshakes or desserts. Mix hard-boiled eggs with salads, sauces, casseroles Add nuts to desserts or eat as snacks Have yogurt and/or cottage cheese as a snack or paired with fruit. If you have any further diet-related questions, please contact the dietitian's office at . Other Instructions Call provider for: Temperature -Temperature greater than 101 degrees F Call provider for: persistent nausea or vomiting Call provider for: severe uncontrolled pain Special Instructions Follow up with uro next week Discharge Medications: Current Medications TAKE these medications acetaminophen 500 mg tablet Take 1 tablet (500 mg total) by mouth 2 (two) times a day Commonly known as: TYLENOL albuterol HFA 90 mcg/actuation inhaler Inhale 1 puff every 4 (four) hours as needed Commonly known as: PROVENTIL HFA,VENTOLIN HFA,PROAIR HFA atorvastatin 40 mg tablet TAKE 1 TABLET BY MOUTH ONCE DAILY Commonly known as: LIPITOR cefdinir 300 mg capsule Take 1 capsule (300 mg total) by mouth 2 (two) times a day Commonly known as: OMNICEF clopidogreL 75 mg tablet Take 1 tablet (75 mg total) by mouth daily for 21 doses Commonly known as: PLAVIX ferrous sulfate 325 mg (65 mg of elemental iron) tablet Take 1 tablet (325 mg total) by mouth daily with breakfast For: anemia from inadequate iron FIASP 100 unit/mL vial for injection Inject 0-10 Units under the skin 3 (three) times a day with meals Based on sliding scale Generic drug: insulin aspart niacinamide fluticasone propion-salmeteroL 250-50 mcg/dose diskus inhaler Inhale 1 puff 2 (two) times a day Commonly known as: ADVAIR DISKUS hydrOXYzine 50 mg tablet Take 1 tablet (50 mg total) by mouth every 8 (eight) hours as needed Commonly known as: ATARAX insulin degludec 100 unit/mL (3 mL) pen for injection Inject 0.15 mL (15 Units total) under the skin nightly Commonly known as: TRESIBA magnesium oxide 400 mg (241.3 mg elemental magnesium) tablet Take 1 tablet (400 mg total) by mouth daily Commonly known as: MAG-OX megestrol 40 mg/mL suspension Take 10 mL (400 mg total) by mouth as needed Commonly known as: MEGACE metoprolol XL 50 mg extended release tablet Take 1 tablet (50 mg total) by mouth daily Commonly known as: TOPROL-XL nitroglycerin 0.[address] 1 tablet (0.4 mg total) under the tongue every 5 (five) minutes as needed Commonly known as: NITROSTAT ondansetron 8 mg tablet Take 1 tablet (8 mg total) by mouth every 8 (eight) hours as needed Commonly known as: ZOFRAN pantoprazole DR 40 mg EC tablet Take 1 tablet (40 mg total) by mouth daily Commonly known as: PROTONIX pregabalin 50 mg capsule Take 1 capsule (50 mg total) by mouth 3 (three) times a day Commonly known as: LYRICA rivaroxaban 20 mg tablet Take 1 tablet (20 mg total) by mouth daily with breakfast Commonly known as: Xarelto sacubitriL-valsartan 24-26 mg tablet Take 1 tablet by mouth 2 (two) times a day For: chronic heart failure Commonly known as: ENTRESTO sodium bicarbonate 650 mg tablet Take 1 tablet (650 mg total) by mouth 3 (three) times a day for 7 days zolpidem 10 mg tablet Take 1 tablet (10 mg total) by mouth nightly as needed for sleep Commonly known as: ABEL Outpatient Follow-Up: Future Appointments Date Time Provider Department Center 07/30/2024 12:45 PM [facility] CARDIAC CAGE/VAULT SUPERVISOR [facility] Card [facility] 08/04/2024 12:45 PM CH CARDIAC CAGE/VAULT SUPERVISOR CH Card [facility] 08/06/2024 12:45 PM CH CARDIAC CAGE/VAULT SUPERVISOR CH Card [facility] 08/11/2024 12:45 PM CH CARDIAC CAGE/VAULT SUPERVISOR CH Card [facility] 08/13/2024 12:45 PM CH CARDIAC CAGE/VAULT SUPERVISOR CH Card [facility] 08/18/2024 12:45 PM CH CARDIAC CAGE/VAULT SUPERVISOR CH Card [facility] 08/20/2024 12:45 PM CH CARDIAC CAGE/VAULT SUPERVISOR CH Card [facility] 08/25/2024 12:45 PM CH CARDIAC CAGE/VAULT SUPERVISOR CH Card [facility] 08/27/2024 12:45 PM CH CARDIAC CAGE/VAULT SUPERVISOR CH Card [facility] 09/01/2024 12:45 PM CH CARDIAC CAGE/VAULT SUPERVISOR CH Card [facility] 09/03/2024 12:45 PM CH CARDIAC CAGE/VAULT SUPERVISOR [facility] Card [facility] 09/08/2024 12:45 PM CH CARDIAC CAGE/VAULT SUPERVISOR [facility] Card [facility] 09/10/2024 12:45 PM CH CARDIAC CAGE/VAULT SUPERVISOR [facility] Card [facility] 09/15/2024 12:45 PM CH CARDIAC CAGE/VAULT SUPERVISOR [facility] Card [facility] 09/17/2024 12:45 PM CH CARDIAC CAGE/VAULT SUPERVISOR [facility] Card [facility] 09/22/2024 12:45 PM CH CARDIAC CAGE/VAULT SUPERVISOR [facility] Card [facility] 09/24/2024 12:45 PM CH CARDIAC CAGE/VAULT SUPERVISOR [facility] Card [facility] 09/29/2024 12:45 PM CH CARDIAC CAGE/VAULT SUPERVISOR [facility] Card [facility] 10/01/2024 12:45 PM CH CARDIAC CAGE/VAULT SUPERVISOR [facility] Card [facility] 10/06/2024 12:45 PM CH CARDIAC CAGE/VAULT SUPERVISOR [facility] Card [facility] 10/08/2024 12:45 PM CH CARDIAC CAGE/VAULT SUPERVISOR [facility] Card [facility] 10/13/2024 12:45 PM CH CARDIAC CAGE/VAULT SUPERVISOR [facility] Card [facility] 10/15/2024 12:45 PM CH CARDIAC CAGE/VAULT SUPERVISOR [facility] Card [facility] 10/20/2024 12:45 PM CH CARDIAC CAGE/VAULT SUPERVISOR CH Card [facility] 10/22/2024 12:45 PM CH CARDIAC CAGE/VAULT SUPERVISOR CH Card [facility] 10/29/2024 12:45 PM CH CARDIAC CAGE/VAULT SUPERVISOR [facility] Card [facility] 11/03/2024 12:45 PM CH CARDIAC CAGE/VAULT SUPERVISOR [facility] Card [facility] 11/05/2024 12:45 PM CH CARDIAC CAGE/VAULT SUPERVISOR [facility] Card [facility] 11/10/2024 12:45 PM CH CARDIAC CAGE/VAULT SUPERVISOR [facility] Card [facility] 11/12/2024 12:45 PM CH CARDIAC CAGE/VAULT SUPERVISOR [facility] Card [facility] Contact Information for Follow-ups Emiliano Low DO Specialty: Nephrology, Internal Medicine Relationship: Consulting Physician [facility] [address] [facility] [address] Next Steps: Follow up Comments: Follow up with established provider: 1 week Questions: To provider: EMILIANO LOW Murtuzah H., MD Specialty: Internal Medicine Relationship: PCP - General [address] [place] [address] Next Steps: Schedule an appointment as soon as possible for a visit in 1 week(s) Comments: Follow up with established provider: 1 week Questions: To provider: NAMAN HOOPER Other Follow-up Next Steps: Follow up Instructions: follow up with [facility] as per schedule Questions: Instructions for follow-up (appointment date and time): follow up with [facility] as per schedule Cosigned by Edward Witt DO at 07/28/2024 3:10 PM CDT documented in this encounter Discharge Instructions * Discharge Instr - Diet* Noah Hastings, AKBAR - 07/26/2024 11:08 AM CDT Recommend eating small/frequent meals, such as 6 to 8 small meals/snacks during the day. Eat slowlyand chew thoroughly to prevent becoming full too quickly. Limit the amount of liquids you drink at meals. Drink liquids between meals. Choose liquids of high nutritive value, such as juices, milkshakes, or Boost/Ensure. Keep high calorie snackshandy to eat when you are hungry. Try peanut butter, cheese, ice cream, granola bars, avocados, eggs, [place] yogurt, etc. Calorie Boosting Tips: Add butter or margarine to soups, veggies, potatoes, cooked cereal, pasta, bread, crackers Spread cream cheese on bread, rolls, bagels or use it as fruit dip Add raisins, dates, or chopped nuts to hot cereal and desserts Top meat, vegetables, or bread with gravy Mix fruit, nuts, granola, honey, or dry cereal with yogurt Protein Boosting Tips: Add dry milk powder to milk, cereal, soup, gravy, casseroles, desserts Use milk to replace water in recipes Add meat to soups, casseroles, pasta dishes, or vegetables Mix cheese in sauces, soups, or vegetables Melt cheese over bread, vegetables, potatoes, on sandwiches. Add shredded cheese to soups and salads. Eat peanut butter on crackers, bread, toast, waffles, or celery sticks. May also add to milkshakes or desserts. Mix hard-boiled eggs with salads, sauces, casseroles Add nuts to desserts or eat as snacks Have yogurt and/or cottage cheese as a snack or paired with fruit. If you have any further diet-related questions, please contact the dietitian's office at . documented in this encounter Medications at Time of Discharge acetaminophen (TYLENOL) 500 mg tablet Take 1 tablet (500 mg total) by mouth 2 (two) times a day albuterol HFA (PROVENTIL HFA,VENTOLIN HFA,PROAIR HFA) 90 mcg/actuation inhaler Inhale 1 puff every 4 (four) hours as needed atorvastatin (LIPITOR) 40 mg tablet TAKE 1 TABLET BY MOUTH ONCE DAILY 30 tablet 03/05/2018 cefdinir (OMNICEF) 300 mg capsule Take 1 capsule (300 mg total) by mouth 2 (two) times a day 14 capsule 07/28/2024 ferrous sulfate 325 mg (65 mg of elemental iron) tabletIndications :Iron Deficiency Anemia Take 1 tablet (325 mg total) by mouth daily with breakfast fluticasone propion-salmetero L (ADVAIR DISKUS) 250-50 mcg/dose diskus inhaler Inhale 1 puff 2 (two) times a day hydrOXYzine (ATARAX) 50 mg tablet Take 1 tablet (50 mg total) by mouth every 8 (eight) hours as needed 12/31/2023 insulin aspart niacinamide (FIASP) 100 unit/mL vial for injection Inject 0-10 Units under the skin 3 (three) times a day with meals Based on sliding scale insulin degludec (TRESIBA) 100 unit/mL (3 mL) pen for injection Inject 0.15 mL (15 Units total) under the skin nightly 07/28/2024 magnesium oxide (MAG-OX) 400 mg (241.3 mg elemental magnesium) tablet Take 1 tablet (400 mg total) by mouth daily megestroL 40 mg/mL suspension Take 10 mL (400 mg total) by mouth as needed 09/03/2023 metoprolol XL (TOPROL-XL) 50 mg extended release tablet Take 1 tablet (50 mg total) by mouth daily 30 tablet 07/28/2024 nitroglycerin (NITROSTAT) 0.[address] 1 tablet (0.4 mg total) under the tongue every 5 (five) minutes as needed 01/23/2024 ondansetron (ZOFRAN) 8 mg tablet Take 1 tablet (8 mg total) by mouth every 8 (eight) hours as needed 09/03/[address] (PROTONIX) 40 mg EC tablet Take 1 tablet (40 mg total) by mouth daily pregabalin (LYRICA) 50 mg capsule Take 1 capsule (50 mg total) by mouth 3 (three) times a day 06/02/2021 rivaroxaban (Xarelto) 20 mg tablet Take 1 tablet (20 mg total) by mouth daily with breakfast 90 tablet 11 02/13/2024 sacubitriL-valsar yeh (ENTRESTO) 24-26 mg tabletIndications :chronic heart failure Take 1 tablet by mouth 2 (two) times a day 60 tablet 07/28/2024 sodium bicarbonate 650 mg tablet Take 1 tablet (650 mg total) by mouth 3 (three) times a day for 7 days 21 tablet 07/28/2024 5 zolpidem (AMBIEN) 10 mg tablet Take 1 tablet (10 mg total) by mouth nightly as needed for sleep documented as of this encounter Ordered Prescriptions Prescription Sig Dispense Quantity Refills Last Filled Start Date End Date cefdinir (OMNICEF) 300 mg capsule Take 1 capsule (300 mg total) by mouth 2 (two) times a day 14 capsule 07/28/2024 sodium bicarbonate 650 mg tablet Take 1 tablet (650 mg total) by mouth 3 (three) times a day for 7 days 21 tablet 07/28/2024 5 metoprolol XL (TOPROL-XL) 50 mg extended release tablet Take 1 tablet (50 mg total) by mouth daily 30 tablet 07/28/2024 insulin degludec (TRESIBA) 100 unit/mL (3 mL) pen for injection Inject 0.15 mL (15 Units total) under the skin nightly 07/28/2024 sacubitriL-valsart an (ENTRESTO) 24-26 mg tabletIndications: chronic heart failure Take 1 tablet by mouth 2 (two) times a day 60 tablet 07/28/2024 documented in this encounter Discharge Disposition Disposition Code Departure Means Destination Comment s Discharge to home or self care documented in this encounter Progress Notes * Manuel Young MD - 07/28/2024 8:52 AM CDT [facility] - Cardiology [facility] Progress Note Admit Date: 07/26/2024 1:18 AM @HDAYS@ PCP: Naman Hooper MD Patient seen and examined Chart , telemtry reviewed Symptoms Patient denies chest pain, dyspnea, palpitations, sweating or syncope. Data Vitals: 07/28/24 0340 07/28/24 0600 07/28/24 0800 07/28/24 0831 BP: 110/57 129/60 BP Location: Right arm Patient Position: Lying Pulse: 87 94 93 Resp: 16 18 Temp: 36.4 ??C (97.5 ??F) 37 ??C (98.6 ??F) TempSrc: Oral SpO2: 97% 100% Weight: 73.9 kg (163 lb) Height: Intake/Output Summary (Last 24 hours) at 07/28/2024 0852 Last data filed at 07/28/2024 0654 Gross per 24 hour Intake 240 ml Output 1550 ml Net -1310 ml Lab Results Component Value Date WBC 5.01 07/28/2024 WBC 4.08 07/27/2024 WBC 4.87 07/26/2024 HGB 8.3 (L) 07/28/2024 HGB 7.7 (L) 07/27/2024 HGB 7.8 (L) 07/26/2024 HCT 25.7 (L) 07/28/2024 HCT 25.0 (L) 07/27/2024 HCT 24.9 (L) 07/26/2024 Lab Results Component Value Date SODIUM 136 07/28/2024 SODIUM 136 07/27/2024 SODIUM 135 07/26/2024 POTASSIUM 4.9 07/28/2024 POTASSIUM 5.2 (H) 07/27/2024 POTASSIUM 5.7 (H) 07/26/2024 CHLORIDE 109 07/28/2024 CHLORIDE 112 (H) 07/27/2024 CHLORIDE 113 (H) 07/26/2024 CO2 16 (L) 07/28/2024 CO2 15 (L) 07/27/2024 CO2 14 (L) 07/26/2024 CREATININE 1.55 (H) 07/28/2024 CREATININE 1.67 (H) 07/27/2024 CREATININE 2.17 (H) 07/26/2024 GLUCOSE 152 07/28/2024 GLUCOSE 138 07/28/2024 GLUCOSE 232 (H) 07/27/2024 GLUCOSE 129 07/27/2024 GLUCOSE 175 07/27/2024 GLUCOSE 185 07/26/2024 CALCIUM 8.7 07/28/2024 CALCIUM 8.9 07/27/2024 CALCIUM 8.9 07/26/2024 No results found for: PTT No results found for: PT No results found for: INR No results found for: BNP No components found for: TROPONIN No results found for: CHOL, TRIG, HDL, LDLCALC Lab Results Component Value Date ALBUMIN 3.6 07/26/2024 ALKPHOS 104 07/26/2024 ALT 10 07/26/2024 AST 19 07/26/2024 No components found for: MAGMGDL No results found for: TSH No results found for: T3FREE No results found for: [id number] Meds MEDICATIONS FOR CURRENT ENCOUNTER: SCHEDULED MEDICATIONS: Scheduled Medications Medication Dose Route Frequency atorvastatin (LIPITOR) tablet 40 mg 40 mg oral Daily cefTRIAXone (ROCEPHIN) 1,000 mg/10 mL in sterile water (premix) 1,000 mg 1,000 mg intravenous Q24H DAVIDA clopidogreL (PLAVIX) tablet 75 mg 75 mg oral Daily insulin glargine (LANTUS, SEMGLEE) 100 unit/mL injection 15 Units 15 Units subcutaneous QAM insulin lispro (HumaLOG, ADMELOG) 100 unit/mL injection 0-4 Units 0-4 Units subcutaneous Nightly insulin lispro (HumaLOG, ADMELOG) 100 unit/mL injection 0-5 Units 0-5 Units subcutaneous TID with meals pantoprazole DR (PROTONIX) extended release tablet 40 mg 40 mg oral Daily pregabalin (LYRICA) capsule 50 mg 50 mg oral TID rivaroxaban (XARELTO) tablet 20 mg 20 mg oral Daily with breakfast sodium bicarbonate tablet 650 mg 650 mg oral TID sodium chloride 0.9% flush 0.5-20 mL 0.5-20 mL intra-catheter Q8H DAVIDA (ALT) CONTINUOUS MEDICATIONS: Continuous Medications Medication Dose Last Rate PRN MEDICATIONS: PRN Medications Medication Dose Route Frequency Last Admin acetaminophen (TYLENOL) tablet 650 mg 650 mg oral Q6H PRN calcium carbonate (TUMS) chewable tablet 500 mg 200 mg of elemental calcium oral QID PRN 500 mg at 07/26/24 1832 dextrose oral liquid liquid 15 g 15 g oral Q15 Min PRN Or dextrose (D10W) 10% bolus 250 mL 250 mL intravenous Q15 Min PRN docusate sodium (COLACE) capsule 100 mg 100 mg oral BID PRN glucagon injection 1 mg 1 mg intramuscular Q30 Min PRN hydrOXYzine (ATARAX) tablet 50 mg 50 mg oral Q8H PRN nitroglycerin (NITROSTAT) sublingual tablet 0.4 mg 0.4 mg sublingual Q5 Min PRN zolpidem (AMBIEN) tablet 5 mg 5 mg oral Nightly PRN 5 mg at 07/27/242111 Allergies Allergen Reactions Doxycycline Hives Penicillamine Rash Penicillins Hives Torsemide Unknown and Rash Codeine Nausea & Vomiting Review of Systems: All systems were reviewed. Pertinent positives are mentioned above. Exam General appearance: alert, cooperative, no distress Neck: No JVD. No carotid Bruit Chest: Adequate air entry bilaterally,No added sounds Cardiovascular: regular rate, rhythm, normal S1 and S2, without rub, gallops ESM 2/6 Abdomen: soft without mass, non-tender, with normal bowel sounds Extremities: no clubbing, cyanosis or edema. Peripheral pulse palpable Assessment /Plan . Chest pain -angina has resolved -pt with known LBBB on his ECG that is unchanged -serial troponin levels are negative -Recent stress test showed fixed anterior defect without any reversible ischemia. To be medically treated Moderate LV dysfunction. Ejection fraction is 43% on stress test. Add Toprol-XL and Entresto closely monitor renal functions. 2. Hx of CAD -PCI on 02/12/24 (4.0x32 Synergy PENNIE to RCA with 2.5 Angiosculpt PTCA to D1) -LVEF 43% on his 07/22/24 stress test -continue Clopidogrel with risk factor modification as below (no ASA since his is also anticoagulated with Rivaroxaban for portal vein thrombosis) 3. Anemia -Hgb 6.9 upon admission improved to 7.7 after transfusion of 1u PRBC on 07/26. Is 8.3 today -pt says blood counts have dropped with his immunotherapy with last transfusion ~6 weeks ago per his report -he did have mild hematuria following TURP in April but denies any further episodes as well as any melena or other bleeding 4. HCC -pt is being treated with immunotherapy with his last session on 07/25 -he is on Rivaroxaban for portal vein thrombosis -he has had banding of esophageal varices -he mentions that there has been discussion of an EGD given dysphagia -etiology is from alcoholic cirrhosis 5. Carotid disease -asymptomatic with reported >70% L ICA stenosis on 07/14/24 ultrasound -pt referred to vascular surgery -continue med management 6. Hypertension -BP is within normal limits without any current pharmacotherapy -continue routine monitoring 7. Type 2 DM -stable on SSI with glycemic management per the primary team 8. Dyslipidemia -stable on Atorvastatin 9. LAI/CKD -Cr was elevated at 2.17 upon admission with baseline ~1.5 -Cr improved to 1.67 today -pt with likely dehydration related to recent poor PO intake and vomiting -Nephrology has been consulted 10. 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 Cystitis on IV Rocephin HCC dx 01/2023 s/p Chemo, IR Embolization 04/09/23, & XRT, now on ImmunoTx, Bladder cancer s/p resection 2018 Anemia managed by Oncology, s/p PRBC Chronic hypotension managed with midodrine Chronic decompensated liver cirrhosis with no ascites at this time. Portal HTN history with Varices controlled s/p band ligation Portal vein DVT, on AC ICM EF 45% compensated CAD with fixed defect by stress test 07/22/24 s/p distant RCA & LAD stent, on statin & APT Moderate & AR, asymptomatic Stroke on ASA PAD s/p CEA on ASA & Statin DM neuropathy on pregabalin DM2 controlled by insulin with hypoglycemia. HLD on a statin Tobacco abuse ongoing. EtOH, reduced significantly. PLAN: - No change his medications today - Stop iron, iron stores are high and may interfere with absorption of other medications. - Serum ferritin pending; if elevated then may consider EPO therapy Thank you for allowing me to participate in the care of your patient. I can be reached at [phone] with any concerns. [employer] [phone] SUBJECTIVE: Mr. Daniel Treviño is a 69 y.o. with a PMHx of Tobacco and distant EtOH use, HTN, DM2, HLD, PAD with stroke s/p CEA, EtOH Cirrhosis s/p band varices, and stage 3 CKD who was admitted 07/26 with chest pain. He presented to an outside emergency room with chest pain and was transferred to [facility]. Cardiac eval found his known LBBB by EKG and flat troponin levels. He apparently had a recent nuclear stress on 07/22/24 with his plant protection guard Dr. Harris that showed a moderate-sized fixed anterior defect with no ischemia. Medical management is all that is planned for at this time. Although there was concern for a kidney injury on presentation, his new established baseline SCr appears to be more like 2 mg/dL after reviewing labs drawn throughout june and in March. A 12 point review of systems is otherwise negative. Past Medical History: Tobacco abuse EtOH abuse HTN DM2 HLD Neuropathy Brain Anyerism 2004 s/p surgical revision PAD s/p CEA 2018 Stroke history 2018 CAD s/p LAD & RCA stent ICM EF 45% Moderate & AR Bladder cancer s/p resection 2018 Cirrhosis - Varices s/p band ligation - Portal vein DVT Dx 2022 - HCC dx 01/2023 s/p Chemo, IR Embolization 04/09/23, & XRT CKD3 Allergies: PCN, Codiene Reactions: Torsemide with neuropathy & light sensitivity Home Medications: Durvalumab Tremelimumab Xeralto PO Qday Clopidogrel 75 mg PO Qday Midodrine 5 mg PO Q8 - takes about 1-2 times a day Triseba 15 units SQ Qhs Atorvastatin 40 mg PO Qhs Magnesium oxide 400 mg PO Qday Ferrous sulfate Cyanocobalmin Protonix 40 mg PO QOD Zyrtec 10 mg POQ day PRN Hydroxyzine 50 mg POQ day PRN Lyrica 50 mg PO TID Ambien 10 mg PO Qhs Family History: family history is not on file. Social History: tobacco and EtOH use OBJECTIVE: Vitals: 24hr Min/Max: Temp Min: 36.4 ??C (97.5 ??F) Max: 36.9 ??C (98.4 ??F) Pulse Min: 86 Max: 92 BP Min: 110/57 Max: 127/59 Resp Min: 16 Max: 18 SpO2 Min: 96 % Max: 100 % Most Recent: Vitals: 07/27/24 2031 07/28/24 0057 07/28/24 0340 07/28/24 0600 BP: 127/59 112/46 110/57 BP Location: Patient Position: Pulse: 91 88 87 Resp: 17 16 16 Temp: 36.6 ??C (97.9 ??F) 36.4 ??C (97.5 ??F) TempSrc: SpO2: 97% 96% 97% Weight: 73.9 kg (163 lb) Height: @IO48H@ Physical Exam: NAD, appropriate, alert No periorbital edema, oropharynx moist No thyromegally, no JVD HRRR without murmur Lungs B CTA without wheezes Abdomen benign without CVA tenderness LE without edema No petechiae, purpura or livido No focal neurologic deficits Lab/Radiology/Diagnostic Review: Labs 07/28/24: Cr 1.55, BUN 34, K 4.9, Ca 8.7, Hgb 8.3, Labs 07/27/24: Cr 1.67, BUN 33, K 5.2, UA +wbc +rbc; Labs 07/26/24: Cr 2.17, BUN 35, K 5.7, Bicarb 14, Marlys 98, Tsat 50%, Fwerr Labs 07/09/24: Hgb 7.9, Labs 07/04/24: Cr 1.87, CC 2.37, BUN 21, K 4.6, Bicarb 19, Ca 9.4, Bili 0.7, Labs 07/04/24: Hgb 8.7, Free light ratio 1.35, SPEP nl, B12 >1000, TSH 1.6, Folate 10.4, Labs 07/04/24: A1c 6.6%, LDL 64, UA +LE +prot ++wbc +rbc; Ucx -ve,; ACR 49 mg/g, Labs 06/27/24: Cr 2.30, BUN 27, K 3.7, Labs 04/24/24: Cr 1.98, CC 2.12, BUN 34, K 4.5, Na 136, Ca 9.1, Alb 3.9, VitD 38, Labs 04/24/24: Hgb 10.3, A1c 6.6%, UA ++LE +wbc +rbc; Labs 02/13/24: Cr 1.35, BUN 18, K 4.1, Ca 9.0, Labs 02/12/24: Cr 1.48, BN 18, K 4.3, Ca 9.1, Labs 12/18/23: Cr 1.40, BUN 25, K 4.4, Na 138, Bicarb 20, Ca 9.6, Alt 14, Labs 12/18/23: TSH 2.02, UA +prot +LE +wbc 0rbc; ACR 38 mg/g, UP nl, Labs 11/05/23: Cr 1.21, BUN 17, K 4.0, Na 128, Alb 3.6, Alt 15, Ca 8.8, VitD 32, PTH 43, Labs 11/05/23: Hgb 11.2, plt 131, ACR nl, UPC nl, Labs 06/11/23: Cr 1.51, BUN 22, K 4.5, Bicarb 28, Ca 9.0, Alb 2.7, PTH 77, VitD 34, Labs 06/11/23: Hgb 12.8, Ferr 99, B12 691, Labs 03/29/23: Cr 1.81, BUN 22, K 4.4, Na 140, Bciarb 24, Ca 8.8, Alt 15, Bili 0.5, Hgb 13.2, Labs 11/17/22: Cr 1.41, BUN 21, K 4.4, Ca 9.0, Alb 4.1, VitD 43, PTH 120, Labs 11/17/22: INR 1.0, Ferr 111, B12 537, Folate 3.8, Labs 11/17/22: UA +prot 0wbc 0rbc; ACR 27 mg/g, UPC nl, Labs 04/05/22: Cr 1.50, BUN 23, K 4.8, Bicarb 27, Ca 8.5, Alt 31, VitD 47, PTH 95, Labs 04/05/22: TSH 0.9, HDL 45, LDL 63, Labs 04/05/22: UA +5 wbc, 0rbc, +tr prot; ACR 23 mg/g, UP nl, Labs 08/24/21: Cr 1.50, BUN 27, K 4.6, Na 142, Bicarb 23, Ca 9.1, Alt 23, Labs 07/20/21: Hgb 14.3, wbc 5.4, plt 133, mcv 98, Labs 06/24/21: Cr 1.40, BUN 23, K 4.9, Na 140, Ca 8.8, VitD 75, PTH 65, Labs 06/24/21: Hgb 14.2, Ferr 107, ESR 15, CRP nl, C3 nl, C4 nl, HIV nr, Hepatitis nr, RPR nr, Labs 06/24/21: UA bland, ACR 24 mg/g, UPC nl, Labs 04/12/21: Cr 1.40, BUN 27, K 4.9, Na 138, Bicarb 27, Ca 9.3, ALT 40, Bili 0.7, INR 1.1, Labs 04/12/21: Hgb 14.0, plt 126, LDL 72, AFP nl, A1c 6.0%, . . Nuc stress 07/22/24: Fixed inferior defect without reversible ischemia. [facility] 02/12/24: RCA angioplasty Carotid doppler 07/14/24: LICA > 70 % stenosis. Echo 07/14/24: EF 45%, mild concentric LVH, Moderate AR, Mod . Echo 03/17/24: Normal. Echo 01/19/24: EF 51%, grade 1 DD. Mild , rvsp 63 mmHg. Echo 09/18/17: normal EF, impaired diastolic function. CT A/P W 04/03/24: cirrhosis with progressive volume loss. Mild spleenomegally with collateral vessels. Cholelithiasis. CT A/P WWO 09/27/22: No evidence of cancer. Probable focal thrombus in left portal vein. Liver contour with nodules. Cholelithiasis. Bilateral stable AVN of the femoral heads. EGD 07/31/23: normal Colonoscopy 07/31/23: no bleeding but internal hemorrhoids noted. Thank you for allowing me to participate in the care of your patient. Sincerely, Emiliano Low D.O. Nephrology [facility] Emiliano Low DO 8:08 AM 07/28/2024 * Edward Witt DO - 07/27/2024 8:11 AM CDT Daily Progress Subjective Chief complaint of chest pain. Interval History: Patient seen examined at bedside. He is resting comfortably does not appear to bein any acute distress. Yesterday evening he had a brief episode of chest discomfort that has subsequently resolved. Patient received his blood transfusion with improvement in his anemia. Patient doescomplain of some burning with his urination. Objective Physical Exam: General: This is a 69 y.o. male in no acute distress. Head: Normocephalic, atraumatic. Eyes: PERRLA, EOMI bilaterally. No conjunctival injection. ENT: Nasal cavity is patent. Mucus membranes are pink and moist without bleeding. Neck: Supple. No JVD.Trachea is in the midline position. Lungs: Diminished lung sounds bilaterally. No wheezing auscultated. Heart: S1 and S2, RRR, No murmur auscultated. Abdomen: soft, nontender. Bowel sounds are present. No masses Extremities: No cyanosis, clubbing or edema. 1+ pedal pulses Neuro: Patient is awake and alert x 3. Speech is clear and coherent. Psychiatric: Normal mood and affect. Behavior is normal. Skin: Warm and dry. No rashes or lesions. Lab/Radiology/Diagnostic Review: Laboratory review: Lab results in the last 24 hours: Recent Results (from the past 24 hours) Type and screen Collection Time: 07/26/24 2:18 PM Result Value Ref Range ABO Rh A Positive Sergio, indirect Negative Check Sample Collection Time: 07/26/24 3:13 PM Result Value Ref Range ABO Rh A Positive Creatinine, urine, random Collection Time: 07/26/24 3:50 PM Result Value Ref Range Creatinine Ur 69.4 mg/dL Urea nitrogen, urine, random Collection Time: 07/26/24 3:50 PM Result Value Ref Range Urea nitrogen, ur 541 mg/dL Sodium, urine, random Collection Time: 07/26/24 3:50 PM Result Value Ref Range Sodium, ur 98 mmol/L POCT glucose Collection Time: 07/26/24 5:07 PM Result Value Ref Range Glucose, POC 298 (H) 70 - 199 mg/dL POC Performer [id number] POCT glucose Collection Time: 07/26/24 8:34 PM Result Value Ref Range Glucose, POC 261 (H) 70 - 199 mg/dL POC Performer [id number] Hemoglobin and hematocrit Collection Time: 07/26/24 10:12 PM Result Value Ref Range Hgb 7.8 (L) 13.0 - 17.5 g/dL Hct 24.9 (L) 38.9 - 50.3 % CBC without differential Collection Time: 07/27/24 4:26 AM Result Value Ref Range WBC 4.08 3.80 - 9.90 K/cumm Hgb 7.7 (L) 13.0 - 17.5 g/dL Hct 25.0 (L) 38.9 - 50.3 % Plt 112 (L) 150 - 400 K/cumm MPV 9.5 9.1 - 12.3 fL RBC 2.49 (L) 4.30 - 5.80 M/cumm MCV 100.4 (H) 81.3 - 96.4 fL MCH 30.9 27.1 - 33.3 pg MCHC 30.8 (L) 32.3 - 35.7 g/dL RDW CV 15.8 (H) 11.1 - 14.9 % RDW SD 57.8 (H) 35.7 - 48.1 fL NRBC abs 0.00 0.00 - 0.01 K/cumm Basic metabolic panel Collection Time: 07/27/24 4:26 AM Result Value Ref Range Sodium 136 135 - 145 mmol/L Potassium, pl 5.2 (H) 3.3 - 4.9 mmol/L Chloride 112 (H) 97 - 110 mmol/L CO2 15 (L) 22 - 32 mmol/L Anion gap 9 2 - 15 mmol/L BUN 33 (H) 6 - 25 mg/dL Creatinine 1.67 (H) 0.80 - 1.30 mg/dL Glucose 175 70 - 199 mg/dL Calcium 8.9 8.5 - 10.3 mg/dL eGFR Collection Time: 07/27/24 4:26 AM Result Value Ref Range eGFR 44 (L) >=60 mL/min/1.73 m2 POCT glucose Collection Time: 07/27/24 6:09 AM Result Value Ref Range Glucose, POC 190 70 - 199 mg/dL POC Performer [id number] Urinalysis reflex to microscopic Collection Time: 07/27/24 11:12 AM Result Value Ref Range Color, ur Yellow Yellow Clarity, ur Clear Clear Specific gravity, ur 1.013 1.003 - 1.030 pH, urine 6.5 Protein, ur ql Trace Negative Glucose, ur ql 3+ (A) Negative Ketones, ur Negative Negative Bilirubin, ur Negative Negative Blood, ur 1+ (A) Negative Urobilinogen, ur <2.0 <2.0 mg/dL Nitrite, ur Negative Negative Leukocyte esterase, ur 4+ (A) Negative UA reflex comment Reflex to microscopic UA will be performed. Urinalysis, microscopic only Collection Time: 07/27/24 11:12 AM Result Value Ref Range WBC, ur >50 (A) 0 - 5 /HPF RBC, ur 6-10 (A) 0 - 2 /HPF Epithelial cells, squamous, ur 1-5 0 - 5 /HPF POCT glucose Collection Time: 07/27/24 12:40 PM Result Value Ref Range Glucose, POC 262 (H) 70 - 199 mg/dL POC Performer [id number] Current Facility-Administered Medications Medication Dose Route Frequency Provider Last Rate Last Admin acetaminophen (TYLENOL) tablet 650 mg 650 mg oral Q6H PRN Randall Cortez, ULICES atorvastatin (LIPITOR) tablet 40 mg 40 mg oral Daily Randall Cortez NP 40 mg at 07/27/24 0843 calcium carbonate (TUMS) chewable tablet 500 mg 200 mg of elemental calcium oral QID PRN Edward Witt DO 500 mg at 07/26/24 1832 clopidogreL (PLAVIX) tablet 75 mg 75 mg oral Daily Randall Cortez NP 75 mg at 07/27/24 0843 dextrose oral liquid liquid 15 g 15 g oral Q15 Min PRN Randall Cortez NP Or dextrose (D10W) 10% bolus 250 mL 250 mL intravenous Q15 Min PRN Randall Cortez NP docusate sodium (COLACE) capsule 100 mg 100 mg oral BID PRN Randall Cortez NP ferrous sulfate delayed release tablet 65 mg of elemental iron 65 mg of elemental iron oral Daily with breakfast Randall Cortez NP 65 mg of elemental iron at 07/27/24 0843 glucagon injection 1 mg 1 mg intramuscular Q30 Min PRN Randall Coretz NP hydrOXYzine (ATARAX) tablet 50 mg 50 mg oral Q8H PRN Randall Cortez NP insulin glargine (LANTUS, SEMGLEE) 100 unit/mL injection 15 Units 15 Units subcutaneous QAM Edward Witt DO 15 Units at 07/27/24 0843 insulin lispro (HumaLOG, ADMELOG) 100 unit/mL injection 0-4 Units 0-4 Units subcutaneous Nightly Randall Cortez NP 2 Units at 07/26/24 2038 insulin lispro (HumaLOG, ADMELOG) 100 unit/mL injection 0-5 Units 0-5 Units subcutaneous TID with meals Randall Cortez NP 3 Units at 07/27/24 1242 nitroglycerin (NITROSTAT) sublingual tablet 0.4 mg 0.4 mg sublingual Q5 Min PRN Randall Cortez NP pantoprazole DR (PROTONIX) extended release tablet 40 mg 40 mg oral Daily Randall Cortez NP 40 mg at 07/27/24 0843 pregabalin (LYRICA) capsule 50 mg 50 mg oral TID Randall Cortez NP 50 mg at 07/27/24 0843 rivaroxaban (XARELTO) tablet 20 mg 20 mg oral Daily with breakfast Randall Cortez, ACID ADJUSTER 20 mg at 07/27/24 0843 sodium bicarbonate tablet 650 mg 650 mg oral TID Edward Witt, sodium chloride 0.9% flush 0.5-20 mL 0.5-20 mL intra-catheter Q8H DAVIDA (ALT) Diego, Janeenasi, ACID ADJUSTER 10 mL at 07/27/24 0843 zolpidem (AMBIEN) tablet 5 mg 5 mg oral Nightly PRN Diego, Janeenasi, ACID ADJUSTER 5 mg at 07/26/24 2321 Vitals: 24hr Min/Max: Temp Min: 36.5 ??C (97.7 ??F) Max: 37.2 ??C (99 ??F) Pulse Min: 75 Max: 97 BP Min: 110/51 Max: 143/74 Resp Min: 18 Max: 20 SpO2 Min: 96 % Max: 100 % Most Recent : Vitals: 07/27/24 0808 BP: 111/53 Pulse: 92 Resp: 20 Temp: 36.5 ??C (97.7 ??F) SpO2: 97% I/O last 2 completed shifts: In: 603.7 [P.O.:240; Blood:280.4; IV Piggyback:83.3] Out: 3185 [Urine:3185] No intake/output data recorded. Assessment/Plan Principal Problem: Chest pain Active Problems: Moderate protein-calorie malnutrition Chest pain - Left-sided chest pain; abnormal EKG - Recent stress test showed fixed defect in the anterior wall - s/p sublingual nitro and morphine - Consult to cardiology - spoke to them this morning - plans for medical management. Optimize potassium and anemia. Coronary artery disease - s/p PCI with stents to LAD and RCA - Continue Plavix and Xarelto; not taking aspirin - Continues to follow Cardiology LAI on CKD stage 4 - Creatinine trending favorably - continue to monitor - Monitor renal function closely and avoid nephrotoxins - Consult to nephrology - appreciate recommendations Metabolic acidosis Hyperkalemia - CO2 15, anion gap 9 -K+ 5.2 > Administer Lokelma - Check lactate - start patient on sodium bicarbonate - Continue to monitor Carotid artery stenosis - Recent carotid Dopplers showed >70% L ICA and <50% R ICA - Patient was referred to vascular surgery - Continue Plavix Diabetes mellitus type 2 - With hyperglycemia - Started on lispro sliding scale Hyperlipidemia - Continue atorvastatin Bladder carcinoma - Had recent prostate surgery - Monitor urine output closely Urinary tract infection - UA with 4+ leuk esterase, > 50 wbc and complaints of dysuria - Start on Rocephin Chronic anemia - Secondary to renal failure/hematuria - Transfuse 1 unit of PRBCs>> improved to 7.7 - continue to trend - Monitor hemoglobin closely Tobacco abuse - Encourage immediate cessation - Declined nicotine patch DVT prophylaxis Xarelto GI prophylaxis Protonix * Mynor Norton MD - 07/27/2024 7:41 AM CDT Cardiology Inpatient Progress Note [facility] SUBJECTIVE: Pt had no acute events overnight. He denies any recurrent chest pain, stating that he just feels generally tired (he says this is typical for him after immunotherapy sessions). OBJECTIVE: Vitals: 07/26/24 2105 07/26/24 2226 07/26/24 2345 07/27/24 0338 BP: 131/60 143/74 114/52 110/51 BP Location: Left arm Left arm Patient Position: Pulse: 97 75 90 95 Resp: 18 18 20 18 Temp: 36.7 ??C (98.1 ??F) 36.7 ??C (98.1 ??F) 37.1 ??C (98.8 ??F) 37.2 ??C (99 ??F) TempSrc: Oral Oral Oral Oral SpO2: 100% 100% 96% 97% Weight: Height: General: AOx3, No acute distress. Cardiac: RRR with II/ [place]. Normal S1 and S2. No JVD. Vascular: Pulses are palpable in all extremities. No carotid bruits. Lungs: Clear to auscultation (B). Abdomen: Soft, NT/ND, +BS Ext: Warm without edema. No cyanosis or clubbing. ASSESSMENT/PLAN: 1. Chest pain -angina has resolved -pt with known LBBB on his ECG that is unchanged -serial troponin levels are negative -I discussed pt with his primary Weed Cooking Operator, Dr. Harris, and pt had a stress test on 07/22/24 thatshowed a moderate size fixed anterior defect with no ischemia so I will plan for continued med management at this time 2. Hx of CAD -PCI on 02/12/24 (4.0x32 Synergy PENNIE to RCA with 2.5 Angiosculpt PTCA to D1) -LVEF 43% on his 07/22/24 stress test -continue Clopidogrel with risk factor modification as below (no ASA since his is also anticoagulated with Rivaroxaban for portal vein thrombosis) 3. Anemia -Hgb 6.9 upon admission improved to 7.7 after transfusion of 1u PRBC on 07/26 -pt says blood counts have dropped with his immunotherapy with last transfusion ~6 weeks ago per his report -he did have mild hematuria following TURP in April but denies any further episodes as well as any melena or other bleeding 4. HCC -pt is being treated with immunotherapy with his last session on 07/25 -he is on Rivaroxaban for portal vein thrombosis -he has had banding of esophageal varices -he mentions that there has been discussion of an EGD given dysphagia -etiology is from alcoholic cirrhosis 5. Carotid disease -asymptomatic with reported >70% L ICA stenosis on 07/14/24 ultrasound -pt referred to vascular surgery -continue med management 6. Hypertension -BP is within normal limits without any current pharmacotherapy -continue routine monitoring 7. Type 2 DM -stable on SSI with glycemic management per the primary team 8. Dyslipidemia -stable on Atorvastatin 9. LAI/CKD -Cr was elevated at 2.17 upon admission with baseline ~1.5 -Cr improved to 1.67 today -pt with likely dehydration related to recent poor PO intake and vomiting -Nephrology has been consulted 10. Aortic stenosis -asymptomatic with a mild mean gradient of 14 mm Hg on 07/14/24 echo Mynor Norton MD, [facility], [facility] 07/27/2024 7:41 AM documented in this encounter H&P Notes * Randall Cortez NP - 07/26/2024 1:58 AM CDT History and Physical CHIEF COMPLAINT Chest pain HPI Patient is a 69 y.o. male who presented to [facility] with complaints of chestpain. The patient has history of CAD with stent placement reports taking 2 nitro sublingual withoutrelief. Patient reports associated shortness of breath and diaphoresis. On evaluation patient's initial troponin was negative, EKG showed new ST depressions. Cardiology was consulted and they recommended transfer patient to [facility] for further cardiology evaluation. Patient remains alert and oriented when seen. Remains afebrile, normal blood pressures and continues to have normal oxygenation on room air. Patient also reports that chest pain has resolved. PAST MEDICAL HISTORY Past Medical History: Diagnosis Date Anemia Bladder carcinoma (HCC) CAD (coronary artery disease) COPD (chronic obstructive pulmonary disease) (HCC) Heart attack (HCC) Hyperlipidemia Hypertension no longer on medications for ICH (intracerebral hemorrhage) (HCC) R cerebellum, associated with basilar aneurysm Liver cancer (HCC) PVD (peripheral vascular disease) Stroke (HCC) Type 2 diabetes mellitus with circulatory disorder (HCC) 09/17/2017 PAST SURGICAL HISTORY Past Surgical History: Procedure Laterality Date APPENDECTOMY BLADDER SURGERY BRAIN SURGERY ALLERGIES Allergies Allergen Reactions Doxycycline Hives Penicillamine Rash Penicillins Hives Torsemide Unknown and Rash Codeine Nausea & Vomiting FAMILY HISTORY family history includes Hypertension in his father. SOCIAL HISTORY Patient resides at home with his . He continues to use tobacco but denies alcohol or illicit drug use HOME MEDICATIONS Prior to Admission medications Medication Sig Start Date End Date Taking? Authorizing Provider acetaminophen (TYLENOL) 500 mg tablet Take 1 tablet (500 mg total) by mouth 2 (two) times a day YesLilliam Hollins MD albuterol HFA (PROVENTIL HFA,VENTOLIN HFA,PROAIR HFA) 90 mcg/actuation inhaler Inhale 1 puff every 4 (four) hours as needed Yes Lilliam Hollins MD atorvastatin (LIPITOR) 40 mg tablet TAKE 1 TABLET BY MOUTH ONCE DAILY 03/05/18 Yes Jason Parker MD clopidogreL (PLAVIX) 75 mg tablet Take 1 tablet (75 mg total) by mouth daily for 21 doses 02/13/24 07/26/24 Yes Leonora Guan NP ferrous sulfate 325 mg (65 mg of elemental iron) tablet Take 1 tablet (325 mg total) by mouth dailywith breakfast Yes Lilliam Hollins MD hydrOXYzine (ATARAX) 50 mg tablet Take 1 tablet (50 mg total) by mouth every 8 (eight) hours as needed 12/31/23 Yes Lilliam Hollins MD insulin aspart niacinamide (FIASP) 100 unit/mL vial for injection Inject 0-10 Units under the skin 3 (three) times a day with meals Based on sliding scale Yes Lilliam Hollins MD insulin degludec (TRESIBA) 100 unit/mL (3 mL) pen for injection Inject 0.5 mL (50 Units total) under the skin nightly Yes Lilliam Hollins MD magnesium oxide (MAG-OX) 400 mg (241.3 mg elemental magnesium) tablet Take 1 tablet (400 mg total) by mouth daily Yes Lilliam Hollins MD megestroL 40 mg/mL suspension Take 10 mL (400 mg total) by mouth as needed 09/03/23 Yes Lilliam Hollins MD nitroglycerin (NITROSTAT) 0.[address] 1 tablet (0.4 mg total) under the tongue every 5 (five) minutes as needed 01/23/24 Yes Lilliam Hollins MD pantoprazole DR (PROTONIX) 40 mg EC tablet Take 1 tablet (40 mg total) by mouth daily Yes Lilliam Hollins MD pregabalin (LYRICA) 50 mg capsule Take 1 capsule (50 mg total) by mouth 3 (three) times a day 06/02/21 Yes Cindy Dhillon MD rivaroxaban (Xarelto) 20 mg tablet Take 1 tablet (20 mg total) by mouth daily with breakfast 02/13/24 Yes Leonora Guan, ULICES zolpidem (AMBIEN) 10 mg tablet Take 1 tablet (10 mg total) by mouth nightly as needed for sleep YesLilliam Hollins MD nadoloL (CORGARD) 40 mg tablet Take 1 tablet (40 mg total) by mouth daily 11/07/23 07/26/24 Yes Lilliam Hollins MD fluticasone propion-salmeteroL (ADVAIR DISKUS) 250-50 mcg/dose diskus inhaler Inhale 1 puff 2 (two)times a day Patient not taking: Reported on 01/31/2024 Lilliam Hollins MD ondansetron (ZOFRAN) 8 mg tablet Take 1 tablet (8 mg total) by mouth every 8 (eight) hours as needed 09/03/23 Lilliam Hollins MD amLODIPine (NORVASC) 5 mg tablet Take 1 tablet (5 mg total) by mouth daily 02/09/24 07/26/24 ProviderLilliam MD isosorbide mononitrate ER (IMDUR) 60 mg 24 hr tablet Take 1 tablet (60 mg total) by mouth every morning 01/23/24 07/26/24 Provider, MD Lilliam I have utilized all available immediate resources to obtain, update, or review the patient's current medications (including all prescriptions, [id number] products, herbals, cannabis/cannabidiolproducts, and vitamin/mineral/dietary (nutritional) supplements). REVIEW OF SYSTEMS Review of Systems Constitutional: Positive for activity change and diaphoresis. HENT: Negative. Eyes: Negative. Respiratory: Positive for shortness of breath. Cardiovascular: Positive for chest pain. Gastrointestinal: Negative. Endocrine: Negative. Genitourinary: Negative. Musculoskeletal: Negative. Skin: Negative. Allergic/Immunologic: Positive for immunocompromised state. Neurological: Negative. Hematological: Negative. Psychiatric/Behavioral: Negative. OBJECTIVE Temp Av.4 ??C (97.5 ??F) Min: 36.4 ??C (97.5 ??F) Max: 36.4 ??C (97.5 ??F) BP Min: 148/61 Max: 148/61 Pulse Av Min: 98 Max: 98 Resp Av Min: 18 Max: 18 SpO2 Av % Min: 100 % Max: 100 % No intake/output data recorded. Weight: Wt Readings from Last 1 Encounters: 07/26/24 76.9 kg (169 lb 8.5 oz) PHYSICAL EXAM General: This is a 69 y.o. male in no acute distress. Head: Normocephalic, atraumatic. Eyes: PERRLA, EOMI bilaterally. No conjunctival injection. ENT: Nasal cavity is patent. Mucus membranes are pink and moist without bleeding. Neck: Supple. No JVD.Trachea is in the midline position. Lungs: Diminished lung sounds bilaterally. No wheezing auscultated. Heart: S1 and S2, RRR, No murmur auscultated. Abdomen: soft, nontender. Bowel sounds are present. No masses Extremities: No cyanosis, clubbing or edema. 1+ pedal pulses Neuro: Patient is awake and alert x 3. Speech is clear and coherent. Psychiatric: Normal mood and affect. Behavior is normal. Skin: Warm and dry. No rashes or lesions. LAB/RADIOLOGY/DIAGNOSTIC: Lab Results Lab Value Date/Time TROPONINI <0.03 09/18/2017 0616 TROPONINI <0.03 09/17/2017 1752 No results found for: BNP No results found for: TSH LAB TREND CBC: No results found for: WBC, HGB, HCT BMP: No results found for: SODIUM, POTASSIUM, CHLORIDE, BUN, CREATININE, GFR, CALCIUM No results found for: BNP No results found for: ALKPHOS No results found for: MAGNESIUM No results found for: AST No results found for: ALT All lab results stated above were reviewed by me. Radiology: No results found. ASSESSMENT AND PLAN All Diagnosis Present on Admission: Chest pain - Left-sided chest pain; abnormal EKG - Recent stress test showed fixed defect in the anterior wall - s/p sublingual nitro and morphine - Consult to cardiology Coronary artery disease - s/p PCI with stents to LAD and RCA - Continue Plavix and Xarelto; not taking aspirin - Continues to follow Cardiology CKD stage 4 - BUN/creatinine 37/2.56 at OSH, EGFR 25 - Monitor renal function closely and avoid nephrotoxins - Consult to cardiology High anion gap Metabolic acidosis - CO2 9, anion gap 19 - Repeat labs Carotid artery stenosis - Recent carotid Dopplers showed >70% L ICA and <50% R ICA - Patient was referred to vascular surgery - Continue Plavix Diabetes mellitus type 2 - With hyperglycemia - Started on lispro sliding scale Hyperlipidemia - Continue atorvastatin Bladder carcinoma - Had recent prostate surgery - Monitor urine output closely Chronic anemia - Secondary to renal failure - H&H 7.8/52.2 - Monitor hemoglobin closely Tobacco abuse - Encourage immediate cessation - Declined nicotine patch DVT prophylaxis Xarelto GI prophylaxis Protonix I confirmed that the patient's Advance Care Plan is present, code status is documented, or surrogate decision maker is listed in the patient's medical record. CONSULTS IP CONSULT TO NUTRITION SERVICES IP CONSULT TO CARDIOLOGY Code Status: Full Code Anticipated date of discharge: To be determined per hospital course Randall Cortez NP 07/26/2024 1:58 AM [facility] [phone] Primary Care Physician: Naman Hooper MD Voice recognition software [employer] was used dictate and transcribe this document. Ip Paralegal variances may occur. Despite proofreading, typographical errors may occur. Cosigned by Edward Witt DO at 07/26/2024 10:59 AM CDT Associated attestation - Edward Witt DO - 07/26/2024 10:59 AM CDT I have seen and examined the patient on 07/26/24 in conjunction with Randall Cortez NP History: Mr. Treviño is a 69-year-old gentleman with a past medical history significant for liver cancer, varices, coronary artery disease and hypertension who presented to the hospital with complaints of chest pain that did not improve after utilizing Tums, nitroglycerin or his albuterol inhaler. Patient has a complicated medical history as he is currently undergoing immunotherapy for his liver cancer last infusion the day of his admission 07/25. Patient reports that he has had intermittent chest pains for the last few months with a heart catheterization being done in January and a stress test being performed 1 week prior to his hospitalization for which he was told he had no actionable find ings. Patient was found to have hyperkalemia and anemia at time of admission. Nephrology and Cardiology are consulted. Patient does not appear to be in any acute distress. Patient was agreeable to receiving blood transfusion during my interview with him. Physical Exam: General: This is a 69 y.o. male in no acute distress. Head: Normocephalic, atraumatic. Eyes: PERRLA, EOMI bilaterally. No conjunctival injection. ENT: Nasal cavity is patent. Mucus membranes are pink and moist without bleeding. Neck: Supple. No JVD.Trachea is in the midline position. Lungs: Diminished lung sounds bilaterally. No wheezing auscultated. Heart: S1 and S2, RRR, No murmur auscultated. Abdomen: soft, nontender. Bowel sounds are present. No masses Extremities: No cyanosis, clubbing or edema. 1+ pedal pulses Neuro: Patient is awake and alert x 3. Speech is clear and coherent. Psychiatric: Normal mood and affect. Behavior is normal. Skin: Warm and dry. No rashes or lesions. Lab/Radiology/Diagnostics Review: Recent Labs Lab Units 07/26/24 0440 WBC K/cumm 4.87 HEMOGLOBIN g/dL 6.9* HEMATOCRIT % 22.2* PLATELETS K/cumm 116* Recent Labs Lab Units 07/26/24 0742 07/26/24 0440 SODIUM mmol/L -- 135 POTASSIUM PLASMA mmol/L -- 5.7* CHLORIDE mmol/L -- 113* CO2 mmol/L -- 14* ANIONGAP mmol/L -- 8 GLUCOSE mg/dL -- 185 POC GLUCOSE MONITOR mg/dL 196 -- BUN SERUM mg/dL -- 35* CREATININE mg/dL -- 2.17* CALCIUM mg/dL -- 8.9 ALBUMIN g/dL -- 3.6 ALK PHOS Units/L -- 104 ALT Units/L -- 10 AST Units/L -- 19 BILIRUBIN TOTAL mg/dL -- 0.3 Assessment/Plan Chest pain - Left-sided chest pain; abnormal EKG - Recent stress test showed fixed defect in the anterior wall - s/p sublingual nitro and morphine - Consult to cardiology - spoke to them this morning - plans for medical management. Optimize potassium and anemia. Coronary artery disease - s/p PCI with stents to LAD and RCA - Continue Plavix and Xarelto; not taking aspirin - Continues to follow Cardiology CKD stage 4 - BUN/creatinine 37/2.56 at OSH, EGFR 25 - Monitor renal function closely and avoid nephrotoxins - Consult to nephrology - appreciate recommendations Metabolic acidosis Hyperkalemia - CO2 14, anion gap 8 -K+ 5.7 > Administer Lokelma - Continue to monitor Carotid artery stenosis - Recent carotid Dopplers showed >70% L ICA and <50% R ICA - Patient was referred to vascular surgery - Continue Plavix Diabetes mellitus type 2 - With hyperglycemia - Started on lispro sliding scale Hyperlipidemia - Continue atorvastatin Bladder carcinoma - Had recent prostate surgery - Monitor urine output closely Chronic anemia - Secondary to renal failure/hematuria - H&H 6.9/22.2 - Transfuse 1 unit of PRBCs - Monitor hemoglobin closely Tobacco abuse - Encourage immediate cessation - Declined nicotine patch DVT prophylaxis Xarelto GI prophylaxis Protonix I have independently interviewed the patient as well as reviewed patient's labs and imaging. I agree with the initial plan/workup as initiated by Randall Cortez. documented in this encounter Consult Notes * Nemo Burr, MARIANA - 07/28/2024 10:00 AM CDT Images from the original note were not included. Wound/Ostomy Service Initial Consult Note Admit Date: 07/26/2024 1:18 AM Today's Date: 07/28/24 Day of Hospital Stay: Hospital Day: 3 Reason for Consult: diabetic foot ulcers Skin/Wound Assessment: Pt with healing DM ulcers to right great toe and left 2nd toe. Healing skin tear to right dorsal hand and excoriation to BLE. Wound care performed as described below. 07/28/24 09 Wound 07/26/24 Diabetic Ulcer Toe D1, great Right scabbed area dry diabetic wound that started as large blister per pt Date First Assessed: 07/26/24 Present on Original Admission: Yes Primary Wound Type: Diabetic UlcerLocation: Toe D1, great Location Orientation: Right Additional wound location identifiers: scabbed area dry diabetic wound that started as large ... Wound Image Dressing Status Open to Air;Debary Assessment Dry;Fragile;Red Shape & Pattern Oval Patsy-wound Assessment Dry;Intact;Color appropriate for ethnicity Interventions Cleansed (CHG) Dressing Protective ointment;Open to air Wound Status Healing Wound 07/26/24 Diabetic Ulcer Toe D2, second Left dried scabbed area diabetic wound surrounding skin redness/swelling Date First Assessed: 07/26/24 Present on Original Admission: Yes Primary Wound Type: Diabetic UlcerLocation: Toe D2, second Location Orientation: Left Additional wound location identifiers: dried scabbed area diabetic wound surrounding skin red... Wound Image Dressing Status Open to Air;Debary Assessment Fragile;Dry;Scabbed Shape & Pattern Circular Patsy-wound Assessment Dry;Intact;Color appropriate for ethnicity Interventions Cleansed (CHG) Dressing Protective ointment;Open to air Wound Status Healing Wound 07/26/24 Skin Tear Dorsal Hand Right Date First Assessed: 07/26/24 Present on Original Admission: Yes Primary Wound Type: Skin Tear Location: Dorsal Hand Location Orientation: Right Wound Image Dressing Status Changed Site Assessment Dry;Purple Shape & Pattern Linear Patsy-wound Assessment Fragile (bruising) Interventions Cleansed (microcyn) Dressing Transparent film;Barrier Film (cavilon, tegaderm clear absorbent) Wound Status Healing Wound 07/28/24 Excoriation Leg Right;Left;Anterior Date First Assessed/Time First Assessed: 07/28/24 1233 Present on Original Admission: Yes Primary Wound Type: Excoriation Location: Leg Location Orientation: Right;Left;Anterior Wound Image Dressing Status Open to Air Site Assessment Scattered;Scabbed Shape & Pattern Linear Patsy-wound Assessment Dry;Intact;Color appropriate for ethnicity Interventions Cleansed (CHG) Dressing Protective ointment;Open to air Wound Status Healing Education: home management, products used Recommendations: BLE-CHG cleanse, apply petroleum based protective ointment BID and PRN. Right hand-vashe/microcyn cleanse, cavilon, tegaderm clear absorbent. Change dressing weekly and PRN. Plan of care discussed with: pt, ULICSE Tabares Follow up: No follow up planned, re consult if needed Any questions or concerns please contact the Wound/Ostomy department at . Nemo Burr RN * Tamara Johnson MD - 07/27/2024 6:36 AM CDT Images from the original note were not included. Nephrology Consult [facility] Reason for Consult: CKD stg 3/4 Requesting Provider: Edward Witt DO ASSESSMENT: Lai on CKD stage IIIB, likely prerenal in etiology in the setting of nausea/vomiting after immunotherapy; possibly also contributed by acute anemia s/p IVF and PRBC transfusion Hyperkalemia in the setting of LAI Possible NSTEMI? Hx of CAD s/p PCI on 02/12/24 Diastolic dysfunction EF 45% Moderate & AR HCC dx 01/2023 s/p Chemo, IR Embolization 04/09/23, & XRT, now on ImmunoTx, Portal vein DVT on AC Compensated liver cirrhosis with no ascites at this time. Portal HTN history with Varices controlled s/p band ligation on BB Stroke on ASA PAD s/p CEA on ASA DM neuropathy BPH with LUTS Bladder cancer s/p resection 2017 PLAN: -- Encourage oral intake -- Lokelma -- PRBC transfusion to maintain Hb >7 -- follow iron panel --If SBP< 90 and DBP<50, start midodrine 5 mg t.i.d. -- Urine lytes -- Appreciate Cardiology input Thank you very much for allowing me to participate in the care of your patient. I can be reached at [phone] with any concerns. [employer] [facility] [phone] SUBJECTIVE: Daniel Treviño is a 69 y.o. White male with a PMHx CKD stage IIIB, HTN, T2 dm, HLD,EtOH use, PVD with stroke s/p CEA, HCC, alcohol liver cirrhosis s/p band varices who was admitted due to chest pain.Patient has a history of CAD s/p stent. Patient had chest pain; he initially went to outside hospital's ER. As per chart review, initial troponin was negative and EKG revealed slight ST changes. Patient received morphine after which her symptoms resolved. Patient has a recent baseline creatinine of 1.8-2.3; creatinine on admission was 2.17. He was also noted to have aHb of 6.9. Patient states he undergoes immunotherapy for his liver cancer with his last session being yesterday morning. After his immunotherapy, he started developing nausea and vomiting and was not able to eat or drink anything. Patient complains of fatigue, chronic cough, shortness of breath with exertion. He denies chest pain, fevers/chills, diarrhea, hemoptysis, nosebleeds, hematuria or any other significant complaint. Patient received PRBC transfusion and IV fluids, for which his renal function improved. Review of Systems: a 12 point review of systems is otherwise negative. Past Medical History: Past Medical History: Diagnosis Date Anemia Bladder carcinoma (HCC) CAD (coronary artery disease) COPD (chronic obstructive pulmonary disease) (HCC) Heart attack (HCC) Hyperlipidemia Hypertension no longer on medications for ICH (intracerebral hemorrhage) (HCC) R cerebellum, associated with basilar aneurysm Liver cancer (HCC) PVD (peripheral vascular disease) Stroke (HCC) Type 2 diabetes mellitus with circulatory disorder (HCC) 09/17/2017 Allergies: Allergies Allergen Reactions Doxycycline Hives Penicillamine Rash Penicillins Hives Torsemide Unknown and Rash Codeine Nausea & Vomiting Medications: Current Facility-Administered Medications Medication Dose Route Frequency Provider Last Rate Last Admin acetaminophen (TYLENOL) tablet 650 mg 650 mg oral Q6H PRN Randall Cortez NP atorvastatin (LIPITOR) tablet 40 mg 40 mg oral Daily Randall Cortez NP 40 mg at 07/26/24 0801 clopidogreL (PLAVIX) tablet 75 mg 75 mg oral Daily Randall Cortez NP 75 mg at 07/26/24 0801 dextrose oral liquid liquid 15 g 15 g oral Q15 Min PRN Randall Cortez NP Or dextrose (D10W) 10% bolus 250 mL 250 mL intravenous Q15 Min PRN Randall Cortez NP docusate sodium (COLACE) capsule 100 mg 100 mg oral BID PRN Randall Cortez NP ferrous sulfate delayed release tablet 65 mg of elemental iron 65 mg of elemental iron oral Daily with breakfast Randall Cortez NP 65 mg of elemental iron at 07/26/24 0801 glucagon injection 1 mg 1 mg intramuscular Q30 Min PRN Randall Cortez NP hydrOXYzine (ATARAX) tablet 50 mg 50 mg oral Q8H PRN Randall Cortez NP insulin lispro (HumaLOG, ADMELOG) 100 unit/mL injection 0-4 Units 0-4 Units subcutaneous Nightly Randall Cortez NP insulin lispro (HumaLOG, ADMELOG) 100 unit/mL injection 0-5 Units 0-5 Units subcutaneous TID with meals Randall Cortez NP 1 Units at 07/26/24 0800 nitroglycerin (NITROSTAT) sublingual tablet 0.4 mg 0.4 mg sublingual Q5 Min PRN Randall Cortez NP pantoprazole DR (PROTONIX) extended release tablet 40 mg 40 mg oral Daily Randall Cortez NP 40 mg at 07/26/24 0801 pregabalin (LYRICA) capsule 50 mg 50 mg oral TID Randall Cortez NP 50 mg at 07/26/24 0746 rivaroxaban (XARELTO) tablet 20 mg 20 mg oral Daily with breakfast Randall Cortez NP 20 mg at 07/26/24 0801 sodium chloride 0.9% flush 0.5-20 mL 0.5-20 mL intra-catheter Q8H DAVIDA (ALT) Diego, Janeenasi, ACID ADJUSTER 10 mL at 07/26/24 0802 sodium chloride 0.9% IVPB 0-250 mL 0-250 mL intravenous Once Edward Witt, DO sodium zirconium cyclosilicate (LOKELMA) packet 10 g 10 g oral Once Edward Witt, zolpidem (AMBIEN) tablet 5 mg 5 mg oral Nightly PRN CassidyRandall jasso, ACID ADJUSTER 5 mg at 07/26/24 0213 Family History: Family History Problem Relation Age of Onset Hypertension Father Social History: Social History Tobacco Use Smoking status: Every Day Current packs/day: 1.00 Types: Cigarettes Smokeless tobacco: Never Vaping Use Vaping status: Former Substance and Sexual Activity Alcohol use: Not Currently Drug use: Not Currently Types: Marijuana, Alcohol Sexual activity: Defer OBJECTIVE: Vitals: 24hr Min/Max: Temp Min: 36.6 ??C (97.9 ??F) Max: 37.2 ??C (99 ??F) Pulse Min: 75 Max: 97 BP Min: 103/65 Max: 143/74 Resp Min: 18 Max: 20 SpO2 Min: 96 % Max: 100 % Most Recent: Vitals: 07/26/24 2105 07/26/24 2226 07/26/24 2345 07/27/24 0338 BP: 131/60 143/74 114/52 110/51 BP Location: Left arm Left arm Patient Position: Pulse: 97 75 90 95 Resp: 18 18 20 18 Temp: 36.7 ??C (98.1 ??F) 36.7 ??C (98.1 ??F) 37.1 ??C (98.8 ??F) 37.2 ??C (99 ??F) TempSrc: Oral Oral Oral Oral SpO2: 100% 100% 96% 97% Weight: Height: @IO48H@ Physical Exam: NAD, Dry oral mucosa No thyromegally, no JVD HRRR without murmur Lungs B CTA without wheezes Abdomen benign without CVA tenderness LE without edema No petechiae, purpura or livido No focal neurologic deficits Lab/Radiology/Diagnostic Review: Chem/LFT Lab History Latest Ref Rng & Units 02/12/2024 10:13 02/13/2024 02:34 07/26/2024 04:40 07/27/2024 04:26 Labs-Chem/LFT Sodium 135 - 145 mmol/L 137 138 135 136 Creatinine 0.80 - 1.30 mg/dL 1.48 1.35 2.17 1.67 Bilirubin, total 0.1 - 1.2 mg/dL 0.3 AST 10 - 50 Units/L 19 ALT 7 - 55 Units/L 10 Alk phos 40 - 130 Units/L 104 CrCl- Actual Body Weight (Cockcroft-Gault) 56.4 61.8 34.9 45.4 Thank you for allowing me to participate in the care of your patient. Sincerely, Tamara Johnson MD 6:37 AM 07/27/2024 * Noah Hastings, RD - 07/26/2024 11:08 AM CDTAssociated Order(s): IP CONSULT TO NUTRITION SERVICES NUTRITION ASSESSMENT Nutrition Status: Patient meets criteria for moderate chronic malnutrition, reference AAIM (ASPEN) guidelines. Present on Admission: Yes REASON FOR ASSESSMENT: Consult/Referral - At Risk MST Score Encounter Date: 07/26/24 11:08 AM Admission Date: 07/26/2024 LOS: 0 days HPI: Patient is a 69 y.o. male presented to [facility] with complaints of chest pain. The patient has history of CAD with stent placement reports taking 2 nitro sublingual without relief. Patient reports associated shortness of breath and diaphoresis. On evaluation patient's initialtroponin was negative, EKG showed new ST depressions. Cardiology was consulted and [facility]. 07/26: Continue Adult Restricted; Low Fat, Low Chol, Low Na, 2 GM Sodium; Consistent carb 2000 kcal.Continue Ensure Vanilla High protein tid. Recommend starting bowel regimen. Objective Past Medical History: Diagnosis Date Anemia Bladder carcinoma (HCC) CAD (coronary artery disease) COPD (chronic obstructive pulmonary disease) (HCC) Heart attack (HCC) Hyperlipidemia Hypertension no longer on medications for ICH (intracerebral hemorrhage) (HCC) R cerebellum, associated with basilar aneurysm Liver cancer (HCC) PVD (peripheral vascular disease) Stroke (HCC) Type 2 diabetes mellitus with circulatory disorder (HCC) 09/17/2017 Past Surgical History: Procedure Laterality Date APPENDECTOMY BLADDER SURGERY BRAIN SURGERY Social History Tobacco Use Smoking status: Every Day Current packs/day: 1.00 Types: Cigarettes Smokeless tobacco: Never Substance and Sexual Activity Drug use: Not Currently Types: Marijuana, Alcohol Sexual activity: Defer Alcohol Use: Not At Risk (07/26/2024) AUDIT-C Frequency of Alcohol Consumption: Never Average Number of Drinks: Patient does not drink Frequency of Binge Drinking: Never MEDICATION/LAB REVIEW: Scheduled Meds: atorvastatin, 40 mg, oral, Daily clopidogreL, 75 mg, oral, Daily ferrous sulfate, 65 mg of elemental iron, oral, Daily with breakfast insulin lispro, 0-4 Units, subcutaneous, Nightly insulin lispro, 0-5 Units, subcutaneous, TID with meals pantoprazole DR, 40 mg, oral, Daily pregabalin, 50 mg, oral, TID rivaroxaban, 20 mg, oral, Daily with breakfast sodium chloride 0.9%, 500 mL, intravenous, Once sodium chloride 0.9%, 0.5-20 mL, intra-catheter, Q8H DAVIDA (ALT) sodium chloride 0.9%, 0-250 mL, intravenous, Once Continuous Infusions: PRN Meds: acetaminophen dextrose OR dextrose docusate sodium glucagon hydrOXYzine nitroglycerin zolpidem Recent Labs Lab Units 07/26/24 0440 SODIUM mmol/L 135 POTASSIUM PLASMA mmol/L 5.7* CHLORIDE mmol/L 113* CO2 mmol/L 14* BUN SERUM mg/dL 35* CREATININE mg/dL 2.17* [id number] mL/min/1.73 m2 32* CALCIUM mg/dL 8.9 ALBUMIN g/dL 3.6 Recent Labs Lab Units 07/26/24 0742 07/26/24 0440 GLUCOSE mg/dL -- 185 POC GLUCOSE MONITOR mg/dL 196 -- ALT Date Value Ref Range Status 07/26/2024 10 7 - 55 Units/L Final AST Date Value Ref Range Status 07/26/2024 19 10 - 50 Units/L Final Alk phos Date Value Ref Range Status 07/26/2024 104 40 - 130 Units/L Final Lab Results Component Value Date HGBA1C 7.2 (H) 09/18/2017 HDL 32 (L) 09/18/2017 LDLCALC 89 09/18/2017 CHOL 140 09/18/2017 TRIG 95 09/18/2017 NURSING ASSESSMENT: Last BM Date: 07/25/24 Bowel Sounds (All Quadrants): Active Juan J Scale Score: 21 Skin Integrity: Tear Vital Signs BP: 103/65 Temp: 36.9 ??C (98.4 ??F) Pulse: 92 Resp: 18 SpO2: 97 % Intake/Output Summary (Last 24 hours) at 07/26/2024 1108 Last data filed at 07/26/2024 0858 Gross per 24 hour Intake -- Output 755 ml Net -755 ml Adult Malnutrition Scoring Tool (MST) What diet do you follow at home?: regular Have You Recently Lost Weight Without Trying?: Yes (Comment) How Much Weight Have You Lost?: 2 - 13 lb Have you been eating poorly because of a decreased appetite?: Yes Malnutrition Screening Tool (MST) Score: 2 Hunger Screen - Admission Within the past 12 months the food we bought just didn't last and we didn't have money to get more.: Never true Within the past 12 months we worried whether our food would run out before we got money to buy more.: Never true Anthropometrics Weight: 76.9 kg (169 lb 8.5 oz) Admission Weight : 76.9 kg Weight Change: -0.21 kg (-0.46 lbs) IBW/kg (Calculated) : 78 kg Height: 180.3 cm (5' 11) Weight in (lb) to have BMI = 25: 178.9 BMI (Calculated): 23.7 BMI Classification: BMI 18.5 - 24.9 Normal Weight Wt Readings from Last 10 Encounters: 07/26/24 76.9 kg (169 lb 8.5 oz) 07/23/24 77.1 kg (170 lb) 06/19/24 77.7 kg (171 lb 6.4 oz) 02/12/24 83.5 kg (184 lb) 10/05/21 93.4 kg (205 lb 12.8 oz) 08/24/21 91.6 kg (202 lb) 12/16/18 89 kg (196 lb 3.2 oz) 06/11/18 88.5 kg (195 lb) 12/07/17 88.6 kg (195 lb 6.4 oz) 09/18/17 89.5 kg (197 lb 6.4 oz) ESTIMATED NEEDS: Weight Used for Equation Calculations (RD Determined): 76.9 kg (169 lb 8.5 oz) Total Kcal/kg Estimated Needs : 1845.6 Kcal/k. Type of Weight Used for Estimated Kcals: Current Total Protein Estimated Needs (gm): 76.9 Protein Needs Based on g/k.0 Type of Weight Used for Estimated Protein : Current Total Fluid Estimated Needs: 1845.6 Fluid Needs Based on : 1 ml/kcal Type of Weight Used for Estimated Fluid Needs: Current Dietary Orders (From admission, onward) Start Ordered 07/26/24 2100 Bedtime snack At bedtime Comments: If bedtime BG is less than 100mg/dl, give patient a 15 gram carbohydrate snack. 07/26/24 0154 07/26/24 0700 Oral Nutrition Supplements Quantity (# of cans): 1 can; (CH) Select Supplement: Ensure High Protein - Vanilla All Meals Question Answer Comment Quantity (# of cans): 1 can (CH) Select Supplement: Ensure High Protein - Vanilla 07/26/24 0140 07/26/24 0155 Adult Diet Restricted; Low Fat, Low Chol, Low Na, 2 GM Sodium; Consistent Carb 2000 fausto Diet effective now Question Answer Comment (CH) Diet type Restricted Fat / Sodium Restriction: Low Fat, Low Chol, Low Na Fat / Sodium Restriction: 2 GM Sodium Diabetic: Consistent Carb 2000 fausto 07/26/24 0154 Allergies: Reviewed. IMPRESSION: Consult for MST score. No PO intake documented. Pt reports his appetite was not good, but has improved. Pt had emesis 3 times before admit. Pt reports he has constipation. Recommend starting bowel regimen. Pt reports he has lost 8# in 1 month. 5% weight loss in 1 month is significant. NFPE completed, see below. Pt meet criteria for moderate malnutrition. Continue Ensure high protein TID. Labs and medications reviewed: K+ 5.6, BUN/Cr (H), POC 119-196, - on PPI, humalog Last BM 07/25 Skin: WDL AAIM (ASPEN) MALNUTRITION ASSESSMENT: Date of completion: 07/26 ASPEN/AND Malnutrition Screening: Chronic illness or injury mild/moderate Energy Intake: Clinical criteria not met Weight Loss: 5% in 1 month Subcutaneous Fat Loss Severity: Mild/Moderate Muscle Mass Loss Severity: Mild/Moderate Patient Meets Criteria for Moderate Malnutrition: Yes NUTRITION FOCUSED PHYSICAL EXAM: Completed, physical findings below. Subcutaneous Fat Loss Orbital Region - Surrounding the Eye: Loose skin Cheek Region - Buccal Fat: Flat cheeks Upper Arm Region - Triceps/Biceps: Ample fat tissue obvious between folds of skin Thoracic and Lumbar Region - Ribs, Lower Back, Midaxillary Line: Patient not able to participate Muscle Loss Ewing Region - Temporalis Muscle: Slight depression Clavicle Bone Region - Pectoralis Major, Deltoid, Trapezius Muscles: Not visible in male, visible but not prominent in female Clavicle and Acromion Bone Region - Deltoid Muscle: Rounded, curves at arm/shoulder/neck Scapular Bone Region - Trapezius, Supraspinus, Infraspinus Muscles: Patient not able to participate Dorsal Hand - Interosseous Muscle: Slightly depressed Anterior Thigh and Patellar Region - Quadricep Muscle: Decrease in muscle tone/resistance Posterior Calf Region - Gastrocnemius Muscle: Not well developed NUTRITION DIAGNOSIS: Nutrition Diagnosis 1: Protein-Calorie Malnutrition - Moderate Related to: Chronic illness/injury Evidenced by: Subcutaneous fat loss, Muscle loss, Physical finding INTERVENTION(S): Summary: Assess for nutrition changes, Communication, Initial assessment, NFPE Continue current diet and ONS GOAL(S): Adequate nutrition to meet estimated needs by next assessment, Oral intake to meet 75% estimated nutritional needs by next assessment MONITORING/EVALUATION: Appetite, Discharge plans, Labs, Plan of care, PO intake, Stool patterns, GI output, Blood glucoses, Supplement tolerance, Electrolyte changes Diet Instructions Recommend eating small/frequent meals, such as 6 to 8 small meals/snacks during the day. Eat slowlyand chew thoroughly to prevent becoming full too quickly. Limit the amount of liquids you drink at meals. Drink liquids between meals. Choose liquids of high nutritive value, such as juices, milkshakes, or Boost/Ensure. Keep high calorie snackshandy to eat when you are hungry. Try peanut butter, cheese, ice cream, granola bars, avocados, eggs, [place] yogurt, etc. Calorie Boosting Tips: Add butter or margarine to soups, veggies, potatoes, cooked cereal, pasta, bread, crackers Spread cream cheese on bread, rolls, bagels or use it as fruit dip Add raisins, dates, or chopped nuts to hot cereal and desserts Top meat, vegetables, or bread with gravy Mix fruit, nuts, granola, honey, or dry cereal with yogurt Protein Boosting Tips: Add dry milk powder to milk, cereal, soup, gravy, casseroles, desserts Use milk to replace water in recipes Add meat to soups, casseroles, pasta dishes, or vegetables Mix cheese in sauces, soups, or vegetables Melt cheese over bread, vegetables, potatoes, on sandwiches. Add shredded cheese to soups and salads. Eat peanut butter on crackers, bread, toast, waffles, or celery sticks. May also add to milkshakes or desserts. Mix hard-boiled eggs with salads, sauces, casseroles Add nuts to desserts or eat as snacks Have yogurt and/or cottage cheese as a snack or paired with fruit. If you have any further diet-related questions, please contact the dietitian's office at . [address] [place] [address] LD [phone] * Mnyor Norton MD - 07/26/2024 9:14 AM CDTAssociated Order(s): IP CONSULT TO CARDIOLOGY Cardiology Consultation Note [facility] Date of Consult: 07/26/2024 Patient's Primary Care Physician: Naman Hooper MD Physician Requesting Consult: Curtis Funes NP Reason for Consultation: Chest pain Name: Daniel Treviño Age: 69 y.o. Chief Complaint/History of Present Illness Mr. Treviño is a 69 y/o man with hx of hypertension, diabetes, dyslipidemia, tobacco use with COPD, hepatocellular carcinoma, PAD, carotid disease, ICH, CKD stage 4 and CAD post PCI on 02/12/24 (4.0x32 Synergy PENNIE to the RCA and angioplasty to D1 with a 2.5 Angiosculpt balloon) with known diffuse LAD disease that has been medically managed. The patient presented to [facility] with chest tightness. He has a known LBBB on his ECG, which was unchanged, and troponin levels were negative. He says pain resolved after a dose of morphine and has not recurred. He says that he had treatment with immunotherapy yesterday and tends to feel a bit weak and tired after his sessions. He also says that he has been having difficulty swallowing and has vomited twice over the past few days, including prior to his chest pain yesterday. Past Medical History: Diagnosis Date Anemia Bladder carcinoma (HCC) CAD (coronary artery disease) COPD (chronic obstructive pulmonary disease) (HCC) Heart attack (HCC) Hyperlipidemia Hypertension no longer on medications for ICH (intracerebral hemorrhage) (HCC) R cerebellum, associated with basilar aneurysm Liver cancer (HCC) PVD (peripheral vascular disease) Stroke (HCC) Type 2 diabetes mellitus with circulatory disorder (HCC) 09/17/2017 Past Surgical History: Procedure Laterality Date APPENDECTOMY BLADDER SURGERY BRAIN SURGERY Family History Problem Relation Age of Onset Hypertension Father Social History Tobacco Use Smoking status: Every Day Current packs/day: 1.00 Types: Cigarettes Smokeless tobacco: Never Substance and Sexual Activity Drug use: Not Currently Types: Marijuana, Alcohol Sexual activity: Defer Alcohol Use: Not At Risk (07/26/2024) AUDIT-C Frequency of Alcohol Consumption: Never Average Number of Drinks: Patient does not drink Frequency of Binge Drinking: Never Medications Prior to Admission Medication Sig Dispense Refill Last Dose/Taking acetaminophen (TYLENOL) 500 mg tablet Take 1 tablet (500 mg total) by mouth 2 (two) times a day 07/25/2024 Morning albuterol HFA (PROVENTIL HFA,VENTOLIN HFA,PROAIR HFA) 90 mcg/actuation inhaler Inhale 1 puff every 4 (four) hours as needed 07/25/2024 Morning atorvastatin (LIPITOR) 40 mg tablet TAKE 1 TABLET BY MOUTH ONCE DAILY 30 tablet 0 07/25/2024 Morning clopidogreL (PLAVIX) 75 mg tablet Take 1 tablet (75 mg total) by mouth daily for 21 doses 21 tablet0 07/25/2024 Morning ferrous sulfate 325 mg (65 mg of elemental iron) tablet Take 1 tablet (325 mg total) by mouth dailywith breakfast 07/25/2024 Morning hydrOXYzine (ATARAX) 50 mg tablet Take 1 tablet (50 mg total) by mouth every 8 (eight) hours as needed 07/25/2024 Morning insulin aspart niacinamide (FIASP) 100 unit/mL vial for injection Inject 0-10 Units under the skin 3 (three) times a day with meals Based on sliding scale 07/25/2024 Noon insulin degludec (TRESIBA) 100 unit/mL (3 mL) pen for injection Inject 0.5 mL (50 Units total) under the skin nightly Past Week magnesium oxide (MAG-OX) 400 mg (241.3 mg elemental magnesium) tablet Take 1 tablet (400 mg total) by mouth daily 07/25/2024 Morning megestroL 40 mg/mL suspension Take 10 mL (400 mg total) by mouth as needed 07/25/2024 Morning nitroglycerin (NITROSTAT) 0.[address] 1 tablet (0.4 mg total) under the tongue every 5 (five) minutes as needed 07/25/[address] (PROTONIX) 40 mg EC tablet Take 1 tablet (40 mg total) by mouth daily 07/25/2024 Morning pregabalin (LYRICA) 50 mg capsule Take 1 capsule (50 mg total) by mouth 3 (three) times a day 07/25/2024 Noon rivaroxaban (Xarelto) 20 mg tablet Take 1 tablet (20 mg total) by mouth daily with breakfast 90 tablet 11 07/25/2024 Morning zolpidem (AMBIEN) 10 mg tablet Take 1 tablet (10 mg total) by mouth nightly as needed for sleep Past Week fluticasone propion-salmeteroL (ADVAIR DISKUS) 250-50 mcg/dose diskus inhaler Inhale 1 puff 2 (two)times a day (Patient not taking: Reported on 01/31/2024) More than a month ondansetron (ZOFRAN) 8 mg tablet Take 1 tablet (8 mg total) by mouth every 8 (eight) hours as needed More than a month Allergies Allergen Reactions Doxycycline Hives Penicillamine Rash Penicillins Hives Torsemide Unknown and Rash Codeine Nausea & Vomiting MEDICATIONS FOR CURRENT ENCOUNTER: SCHEDULED MEDICATIONS: Scheduled Medications Medication Dose Route Frequency atorvastatin (LIPITOR) tablet 40 mg 40 mg oral Daily clopidogreL (PLAVIX) tablet 75 mg 75 mg oral Daily ferrous sulfate delayed release tablet 65 mg of elemental iron 65 mg of elemental iron oral Daily with breakfast insulin lispro (HumaLOG, ADMELOG) 100 unit/mL injection 0-4 Units 0-4 Units subcutaneous Nightly insulin lispro (HumaLOG, ADMELOG) 100 unit/mL injection 0-5 Units 0-5 Units subcutaneous TID with meals pantoprazole DR (PROTONIX) extended release tablet 40 mg 40 mg oral Daily pregabalin (LYRICA) capsule 50 mg 50 mg oral TID rivaroxaban (XARELTO) tablet 20 mg 20 mg oral Daily with breakfast sodium chloride 0.9% flush 0.5-20 mL 0.5-20 mL intra-catheter Q8H DAVIDA (ALT) sodium chloride 0.9% IVPB 0-250 mL 0-250 mL intravenous Once sodium zirconium cyclosilicate (LOKELMA) packet 10 g 10 g oral Once CONTINUOUS MEDICATIONS: Continuous Medications Medication Dose Last Rate PRN MEDICATIONS: PRN Medications Medication Dose Route Frequency Last Admin acetaminophen (TYLENOL) tablet 650 mg 650 mg oral Q6H PRN dextrose oral liquid liquid 15 g 15 g oral Q15 Min PRN Or dextrose (D10W) 10% bolus 250 mL 250 mL intravenous Q15 Min PRN docusate sodium (COLACE) capsule 100 mg 100 mg oral BID PRN glucagon injection 1 mg 1 mg intramuscular Q30 Min PRN hydrOXYzine (ATARAX) tablet 50 mg 50 mg oral Q8H PRN nitroglycerin (NITROSTAT) sublingual tablet 0.4 mg 0.4 mg sublingual Q5 Min PRN zolpidem (AMBIEN) tablet 5 mg 5 mg oral Nightly PRN 5 mg at 07/26/24 0213 Review of Systems 11 point system review was obtained all pertinent positives and negatives have been listed in the HPI. Exam Patient Vitals for the past 24 hrs: BP Temp Temp src Pulse Resp SpO2 Height Weight 07/26/24 0800 103/65 36.9 ??C (98.4 ??F) Oral 92 18 97 % -- -- 07/26/24 0759 -- -- -- 92 -- -- -- -- 07/26/24 0340 97/46 36.6 ??C (97.9 ??F) Oral 94 18 99 % -- -- 07/26/24 0122 148/61 36.4 ??C (97.5 ??F) Oral 98 18 100 % 180.3 cm (5' 11) 76.9 kg (169 lb 8.5 oz) General: No acute distress. Cardiac: RRR with II/ [place]. Normal S1 and S2. No JVD. Vascular: Pulses are palpable in all extremities. No carotid bruits. Lungs: Clear to auscultation (B). Abdomen: Soft, NT/ND, +BS Ext: Warm without edema. No cyanosis or clubbing. Skin: No rashes or bruising. Neurologic: AOx3. No apparent focal deficits. No tremors. Psych: The patient is pleasant and cooperative and normal affect. Data Recent Labs Lab Units 07/26/2474107/26/24 0440 SODIUM mmol/L -- 135 POTASSIUM PLASMA mmol/L -- 5.7* CHLORIDE mmol/L -- 113* CO2 mmol/L -- 14* ANIONGAP mmol/L -- 8 GLUCOSE mg/dL -- 185 POC GLUCOSE MONITOR mg/dL 196 -- BUN SERUM mg/dL -- 35* CREATININE mg/dL -- 2.17* CALCIUM mg/dL -- 8.9 ALBUMIN g/dL -- 3.6 ALK PHOS Units/L -- 104 ALT Units/L -- 10 AST Units/L -- 19 BILIRUBIN TOTAL mg/dL -- 0.3 Recent Labs Lab Units 07/26/2442 07/26/24 0440 SODIUM mmol/L -- 135 POTASSIUM PLASMA mmol/L -- 5.7* CHLORIDE mmol/L -- 113* CO2 mmol/L -- 14* BUN SERUM mg/dL -- 35* CREATININE mg/dL -- 2.17* [id number] mL/min/1.73 m2 -- 32* GLUCOSE mg/dL -- 185 POC GLUCOSE MONITOR mg/dL 196 -- CALCIUM mg/dL -- 8.9 ALBUMIN g/dL -- 3.6 Recent Labs Lab Units 07/26/24 0440 WBC K/cumm 4.87 HEMOGLOBIN g/dL 6.9* HEMATOCRIT % 22.2* PLATELETS K/cumm 116* Assessment and Plan 1. Chest pain -angina has resolved -pt with known LBBB on his ECG that is unchanged -serial troponin levels are negative -I discussed pt with his primary Weed Cooking Operator, Dr. Harris, and pt had a stress test on 07/22/24 thatshowed a moderate size fixed anterior defect with no ischemia so I will plan for continued med management at this time 2. Hx of CAD -PCI on 02/12/24 (4.0x32 Synergy PENNIE to RCA with 2.5 Angiosculpt PTCA to D1) -LVEF 43% on his 07/22/24 stress test -continue Clopidogrel with risk factor modification as below (no ASA since his is also anticoagulated with Rivaroxaban for portal vein thrombosis) 3. Anemia -Hgb 6.9 this am with planned transfusion of 2u PRBC -pt says blood counts have dropped with his immunotherapy with last transfusion ~6 weeks ago per his report -he did have mild hematuria following TURP in April but denies any further episodes as well as any melena or other bleeding 4. HCC -pt is being treated with immunotherapy -he is on Rivaroxaban for portal vein thrombosis -he has had banding of esophageal varices -he mentions that there has been discussion of an EGD given dysphagia -etiology is from alcoholic cirrhosis 5. Carotid disease -asymptomatic with reported >70% L ICA stenosis on 07/14/24 ultrasound -pt referred to vascular surgery -continue med management 6. Hypertension -BP is within normal limits without any current pharmacotherapy -continue routine monitoring 7. Type 2 DM -stable on SSI with glycemic management per the primary team 8. Dyslipidemia -stable on Atorvastatin 9. LAI/CKD -Cr is elevated at 2.17 with baseline ~1.5 -pt with likely dehydration related to recent poor PO intake and vomiting -Nephrology has been consulted 10. Aortic stenosis -asymptomatic with a mild mean gradient of 14 mm Hg on 07/14/24 echo Thank you for allowing us to participate in the care of this patient. Mynor Norton MD, [facility], [facility] 07/26/2024 9:14 AM [facility] [phone] * Tamara Johnson MD - 07/26/2024 8:33 AM CDTAssociated Order(s): IP CONSULT TO NEPHROLOGY Images from the original note were not included. Nephrology Consult [facility] Reason for Consult: CKD stg 3/4 Requesting Provider: Edward Witt, ASSESSMENT: Lai on CKD stage IIIB, likely prerenal in etiology in the setting of nausea/vomiting after immunotherapy; possibly also contributed by acute anemia Hyperkalemia in the setting of LAI Possible NSTEMI? Hx of CAD s/p PCI on 02/12/24 Diastolic dysfunction EF 45% Moderate & AR HCC dx 01/2023 s/p Chemo, IR Embolization 04/09/23, & XRT, now on ImmunoTx, Portal vein DVT on AC Compensated liver cirrhosis with no ascites at this time. Portal HTN history with Varices controlled s/p band ligation on BB Stroke on ASA PAD s/p CEA on ASA DM neuropathy BPH with LUTS Bladder cancer s/p resection 2017 PLAN: --500 cc normal saline -- Patient to receive PRBC transfusion -- Encourage oral intake -- Lokelma -- PRBC transfusion to maintain Hb >7 -- follow iron panel --If SBP< 90 and DBP<50, start midodrine 5 mg t.i.d. -- Urine lytes -- Appreciate Cardiology input Thank you very much for allowing me to participate in the care of your patient. I can be reached at [phone] with any concerns. [employer] [phone] SUBJECTIVE: Daniel Treviño is a 69 y.o. White male with a PMHx CKD stage IIIB, HTN, T2 dm, HLD,EtOH use, PVD with stroke s/p CEA, HCC, alcohol liver cirrhosis s/p band varices who was admitted due to chest pain.Patient has a history of CAD s/p stent. Patient had chest pain; he initially went to outside hospital's ER. As per chart review, initial troponin was negative and EKG revealed slight ST changes. Patient received morphine after which her symptoms resolved. Patient has a recent baseline creatinine of 1.8-2.3; creatinine on admission was 2.17. He was also noted to have aHb of 6.9. Patient states he undergoes immunotherapy for his liver cancer with his last session being yesterday morning. After his immunotherapy, he started developing nausea and vomiting and was not able to eat or drink anything. Patient complains of fatigue, chronic cough, shortness of breath with exertion. He denies chest pain, fevers/chills, diarrhea, hemoptysis, nosebleeds, hematuria or any other significant complaint. Review of Systems: a 12 point review of systems is otherwise negative. Past Medical History: Past Medical History: Diagnosis Date Anemia Bladder carcinoma (HCC) CAD (coronary artery disease) COPD (chronic obstructive pulmonary disease) (HCC) Heart attack (HCC) Hyperlipidemia Hypertension no longer on medications for ICH (intracerebral hemorrhage) (HCC) R cerebellum, associated with basilar aneurysm Liver cancer (HCC) PVD (peripheral vascular disease) Stroke (HCC) Type 2 diabetes mellitus with circulatory disorder (HCC) 09/17/2017 Allergies: Allergies Allergen Reactions Doxycycline Hives Penicillamine Rash Penicillins Hives Torsemide Unknown and Rash Codeine Nausea & Vomiting Medications: Current Facility-Administered Medications Medication Dose Route Frequency Provider Last Rate Last Admin acetaminophen (TYLENOL) tablet 650 mg 650 mg oral Q6H PRN Randall Cortez NP atorvastatin (LIPITOR) tablet 40 mg 40 mg oral Daily Randall Cortez NP 40 mg at 07/26/24 0801 clopidogreL (PLAVIX) tablet 75 mg 75 mg oral Daily Randall Cortez NP 75 mg at 07/26/24 0801 dextrose oral liquid liquid 15 g 15 g oral Q15 Min PRN Randall Cortez NP Or dextrose (D10W) 10% bolus 250 mL 250 mL intravenous Q15 Min PRN Randall Cortez NP docusate sodium (COLACE) capsule 100 mg 100 mg oral BID PRN Randall Cortez NP ferrous sulfate delayed release tablet 65 mg of elemental iron 65 mg of elemental iron oral Daily with breakfast Randall Cortez NP 65 mg of elemental iron at 07/26/24 0801 glucagon injection 1 mg 1 mg intramuscular Q30 Min PRN Randall Cortez NP hydrOXYzine (ATARAX) tablet 50 mg 50 mg oral Q8H PRN Randall Cortez NP insulin lispro (HumaLOG, ADMELOG) 100 unit/mL injection 0-4 Units 0-4 Units subcutaneous Nightly Randall Cortez NP insulin lispro (HumaLOG, ADMELOG) 100 unit/mL injection 0-5 Units 0-5 Units subcutaneous TID with meals Randall Cortez NP 1 Units at 07/26/24 0800 nitroglycerin (NITROSTAT) sublingual tablet 0.4 mg 0.4 mg sublingual Q5 Min PRN Randall Cortez NP pantoprazole DR (PROTONIX) extended release tablet 40 mg 40 mg oral Daily Randall Cortez, ACID ADJUSTER 40 mg at 07/26/24 0801 pregabalin (LYRICA) capsule 50 mg 50 mg oral TID Randall Cortez NP 50 mg at 07/26/24 0746 rivaroxaban (XARELTO) tablet 20 mg 20 mg oral Daily with breakfast Randall Cortez NP 20 mg at 07/26/24 0801 sodium chloride 0.9% flush 0.5-20 mL 0.5-20 mL intra-catheter Q8H DAVIDA (ALT) Randall Cortez NP 10 mL at 07/26/24 0802 sodium chloride 0.9% IVPB 0-250 mL 0-250 mL intravenous Once Edward Witt, DO sodium zirconium cyclosilicate (LOKELMA) packet 10 g 10 g oral Once Edward Witt DO zolpidem (AMBIEN) tablet 5 mg 5 mg oral Nightly PRN Randall Cortez NP 5 mg at 07/26/24 0213 Family History: Family History Problem Relation Age of Onset Hypertension Father Social History: Social History Tobacco Use Smoking status: Every Day Current packs/day: 1.00 Types: Cigarettes Smokeless tobacco: Never Vaping Use Vaping status: Former Substance and Sexual Activity Alcohol use: Not Currently Drug use: Not Currently Types: Marijuana, Alcohol Sexual activity: Defer OBJECTIVE: Vitals: 24hr Min/Max: Temp Min: 36.4 ??C (97.5 ??F) Max: 36.9 ??C (98.4 ??F) Pulse Min: 92 Max: 98 BP Min: 97/46 Max: 148/61 Resp Min: 18 Max: 18 SpO2 Min: 97 % Max: 100 % Most Recent: Vitals: 07/26/24 0122 07/26/24 0340 07/26/24 0759 07/26/24 0800 BP: 148/61 97/46 103/65 BP Location: Right arm Left arm Left arm Patient Position: Lying Pulse: 98 94 92 92 Resp: 18 18 Temp: 36.4 ??C (97.5 ??F) 36.6 ??C (97.9 ??F) 36.9 ??C (98.4 ??F) TempSrc: Oral Oral Oral SpO2: 100% 99% 97% Weight: 76.9 kg (169 lb 8.5 oz) Height: 180.3 cm (5' 11) @IO48H@ Physical Exam: NAD, Dry oral mucosa No thyromegally, no JVD HRRR without murmur Lungs B CTA without wheezes Abdomen benign without CVA tenderness LE without edema No petechiae, purpura or livido No focal neurologic deficits Lab/Radiology/Diagnostic Review: Chem/LFT Lab History Latest Ref Rng & Units 02/12/2024 10:13 02/13/2024 02:34 07/26/2024 04:40 Labs-Chem/LFT Sodium 135 - 145 mmol/L 137 138 135 Creatinine 0.80 - 1.30 mg/dL 1.48 1.35 2.17 Bilirubin, total 0.1 - 1.2 mg/dL 0.3 AST 10 - 50 Units/L 19 ALT 7 - 55 Units/L 10 Alk phos 40 - 130 Units/L 104 CrCl- Actual Body Weight (Cockcroft-Gault) 56.4 61.8 34.9 Thank you for allowing me to participate in the care of your patient. Sincerely, Tamara Johnson MD 8:33 AM 07/26/2024 documented in this encounter Miscellaneous Notes * Plan of Care - Georgie Freire RN - 07/28/2024 11:41 AM CDT DISCHARGE PLANNING HAS BEEN FINALIZED AT THIS TIME Case management team met with the patient and finalized discharge planning. Please see below. Expected Discharge Date and Time Expected Discharge Date Jul 28, 2024 07/28/24 1140 Discharge Summary Discharge Disposition Private residence Recommended Discharge Level of Care Private residence Actual Discharge Level of Care Private residence Does Actual Level of Care Match Care Team Recommendation? Yes Post Acute Care Plan Post Acute Care Needs Identified No Discharge Additional Assistance Does the patient need discharge transport arranged? No (Family for transport home) Post Discharge Care Provider Post Discharge Care Plan DC Summary has been faxed to next level of care provider (see Follow Up Providers) This discharge plan, including the mode of transport has been discussed with the patient/family, physician and nursing staff. All are agreeable to plan and understand their responsibility to ensure the safe discharge. If there is a change in patient condition which could impact this plan and/or additional discharge needs arise, please contact Case Management/Social Work. Discharge Disposition Code: 01 TRISTAN Stern, RN needle leader [phone] * Plan of Care - Georgie Freire RN - 07/28/2024 11:38 AM CDT 07/28/24 1138 Communications Important Message from Medicare notice given to patient? No (Given on admission and enforced) TA letter given? Not Applicable Patient choice (Home Health/Hospice) list given to patient/in store representative? Not Applicable [facility] Facility list given to patient/in store representative? Not Applicable Fiduciary Responsibility Patient/Designated decision maker was informed of [facility] fiduciary relationship as necessary Notice of Non-Covered Continued Stay or Hospital Services Given to Patient Not Applicable * Plan of Care - Georgie Freire RN - 07/28/2024 11:30 AM CDT Unable to complete initial assessment due to the patient is new to the floor and the and has simultaneously received discharge orders. Admission Source: Non Medical (Home) Impression: 69 y o male who presents for chest pain Plan & Referrals made/in place: Pt has a Hx of liver CA and receives immunotherapy; post last session, pt developed N/V, and CP; pt found to have UTI and on ceftriaxone; Hgb 6.9 received 1 unit PRBC; LAI/CKD, Nephro consult; on plavix and xarelto; no home needs known at this time; family for transportation home; CM will continue to follow. ADD: manager intranet will continue to follow and assist with discharge planning as needed. * Plan of Care - Nurys Kelly - 07/28/2024 6:00 AM CDT Problem: Fall Risk Goal: Ability to state ways to decrease the risk of falls will improve Outcome: Progressing Flowsheets (Taken 07/27/2024 4626) Ability to state ways to decrease the risk of falls will improve: Teach fall prevention measures Problem: Medication Goal: Satisfaction with pain management medication regimen will improve Outcome: Progressing Flowsheets (Taken 07/27/2024 7251) Satisfaction with pain management medication regimen will improve: Assess satisfaction with pain management regimen Goals: Clinical Goals for the Shift: comfort, safety, stable vs Summary: Pt difficulty sleeping through the night, no complaints. * Plan of Care - Ranjana Sam RN - 07/27/2024 2:47 PM CDT Goals: Clinical Goals for the Shift: comfort, safety, stable vs Summary: Patient resting in bed with no complaints at this time, vs stable. Plan of care continues. Problem: Discharge Planning Goal: Understanding discharge needs will improve Outcome: Ongoing Problem: Fall Risk Goal: Ability to state ways to decrease the risk of falls will improve Outcome: Ongoing Goal: Will remain free from falls Outcome: Ongoing Goal: Will remain free from injury from falls Outcome: Ongoing Problem: Lack of Knowledge Goal: Ability to develop a pain control plan will improve Outcome: Ongoing Problem: Medication Goal: Satisfaction with pain management medication regimen will improve Outcome: Ongoing Problem: Sensory Goal: Ability to identify factors that increase pain levels will improve while working to decrease the patient's pain levels Outcome: Ongoing Problem: Coping Goal: Ability to cope will improve Outcome: Ongoing Problem: Health Behavior Goal: Identification of resources available to assist in meeting health care needs will improve Outcome: Ongoing Problem: Disease Process Goal: Knowledge of disease or condition will improve Outcome: Ongoing Goal: Seeking information regarding disease process or condition Outcome: Ongoing Goal: Ability to make informed decisions regarding treatment will improve Outcome: Ongoing Goal: Identification of resources available to assist in meeting health care needs will improve Outcome: Ongoing Problem: Medication Regimen Goal: Knowledge of medication regimen will improve Outcome: Ongoing Problem: Diagnostic Tests Goal: Knowledge of diagnostic tests will improve Outcome: Ongoing Goal: Ability to verbalize follow-up procedures will improve Outcome: Ongoing Problem: Treatment Goal: Expressions of comfortable level of knowledge will increase Outcome: Ongoing Goal: Knowledge of prescribed therapeutic regimen will improve Outcome: Ongoing Goal: Ability to make informed decisions regarding treatment will improve Outcome: Ongoing Goal: Identification of resources available to assist in meeting health care needs will improve Outcome: Ongoing Problem: Dietary Regimen Goal: Knowledge of prescribed regimen will improve Outcome: Ongoing Goal: Ability to plan menus appropriate to prescribed diet will improve Outcome: Ongoing Goal: Identification of resources available to assist in meeting health care needs will improve Outcome: Ongoing Goal: Compliance with prescribed food intake will improve Outcome: Ongoing Problem: Respiratory Goal: Achieves optimal ventilation and oxygenation Outcome: Ongoing Problem: Cardiovascular Goal: Maintains optimal cardiac output and hemodynamic stability Outcome: Ongoing Goal: Absence of cardiac dysrhythmias or at baseline Outcome: Ongoing Goal: Cardiovascular status will improve Outcome: Ongoing Problem: Skin/Tissue Integrity Goal: Incisions, wounds, or drain sites healing without S/S of infection Outcome: Ongoing Problem: Metabolic/Fluid and Electrolytes Goal: Electrolytes maintained within normal limits Outcome: Ongoing Goal: Glucose maintained within prescribed range Outcome: Ongoing Problem: Hematologic Goal: Maintains hematologic stability Outcome: Ongoing Problem: Lack of Knowledge Goal: Ability to describe self care measures that may prevent or decrease complications related to Type 2 Diabetes will improve Outcome: Ongoing Problem: Health Nutrition Goal: Nutritional intake and knowledge related to Diabetes will improve Outcome: Ongoing * Plan of Care - Nurys Kelly - 07/27/2024 4:17 AM CDT Problem: Fall Risk Goal: Ability to state ways to decrease the risk of falls will improve Outcome: Progressing Flowsheets (Taken 07/27/2024 5902) Ability to state ways to decrease the risk of falls will improve: Teach fall prevention measures Problem: Medication Goal: Satisfaction with pain management medication regimen will improve Flowsheets (Taken 07/27/2024 9940) Satisfaction with pain management medication regimen will improve: Assess satisfaction with pain management regimen Goals: Clinical Goals for the Shift: VSS,SAFETY, COMFORT Summary: pt rested well through the night, pt received x1 unit PRBC. * Plan of Care - Apple Steward - 07/26/2024 7:00 AM CDT Goals: Clinical Goals for the Shift: VSS,SAFETY, COMFORT With right port on the right chest - dry and intact dressing - handed over from production supervisor off shift - not accessible With right big toe - dry and intact dressing - patient claimed he hit it from home Summary: At around [address] johnson to clarify if to give ns 500ml as patient will receive 1u prbc He said give the ns 500ml Around 1340 Called LAb Spoke with Amina to ask if type and screen was done, she said it was collected Around 1400 Another staff called from Lab asking the need to reorder type and screen as the first sample was not labelled at around 1600 Urine na, urea, crea -sent At around 1620 Called blood bank to send 1u prbc * Plan of Care - Amina Coulter RN - 07/26/2024 5:49 AM CDT Goals: Clinical Goals for the Shift: VSS, monitor I&O/labs, pain management, comfort, safety Problem: Discharge Planning Goal: Understanding discharge needs will improve Outcome: Progressing Problem: Fall Risk Goal: Ability to state ways to decrease the risk of falls will improve Outcome: Progressing Goal: Will remain free from falls Outcome: Progressing Goal: Will remain free from injury from falls Outcome: Progressing Problem: Lack of Knowledge Goal: Ability to develop a pain control plan will improve Outcome: Progressing Problem: Medication Goal: Satisfaction with pain management medication regimen will improve Outcome: Progressing Problem: Sensory Goal: Ability to identify factors that increase pain levels will improve while working to decrease the patient's pain levels Outcome: Progressing Problem: Coping Goal: Ability to cope will improve Outcome: Progressing Problem: Health Behavior Goal: Identification of resources available to assist in meeting health care needs will improve Outcome: Progressing Problem: Disease Process Goal: Knowledge of disease or condition will improve Outcome: Progressing Goal: Seeking information regarding disease process or condition Outcome: Progressing Goal: Ability to make informed decisions regarding treatment will improve Outcome: Progressing Goal: Identification of resources available to assist in meeting health care needs will improve Outcome: Progressing Problem: Medication Regimen Goal: Knowledge of medication regimen will improve Outcome: Progressing Problem: Diagnostic Tests Goal: Knowledge of diagnostic tests will improve Outcome: Progressing Goal: Ability to verbalize follow-up procedures will improve Outcome: Progressing Problem: Treatment Goal: Expressions of comfortable level of knowledge will increase Outcome: Progressing Goal: Knowledge of prescribed therapeutic regimen will improve Outcome: Progressing Goal: Ability to make informed decisions regarding treatment will improve Outcome: Progressing Goal: Identification of resources available to assist in meeting health care needs will improve Outcome: Progressing Problem: Dietary Regimen Goal: Knowledge of prescribed regimen will improve Outcome: Progressing Goal: Ability to plan menus appropriate to prescribed diet will improve Outcome: Progressing Goal: Identification of resources available to assist in meeting health care needs will improve Outcome: Progressing Goal: Compliance with prescribed food intake will improve Outcome: Progressing documented in this encounter Plan of Treatment Not on file documented as of this encounter Procedures Procedure Name Priority Date/Time Associated Diagnosis Comments FERRITIN Routine 07/28/2024 8:33 AM CDT POCT GLUCOSE DEVICE Routine 07/28/2024 6 :56 AM CDT EGFR Routine 07/28/2024 5:50 AM CDT CBC WITHOUT DIFFERENTIAL Routine 07/28/2024 5:50 AM CDT BASIC METABOLIC PANEL Routine 07/28/2024 5:50 AM CDT POCT GLUCOSE DEVICE Routine 07/27/2024 9 :07 PM CDT LACTATE Routine 07/27/2024 7:36 PM CDT POCT GLUCOSE DEVICE Routine 07/27/2024 5 :27 PM CDT POCT GLUCOSE DEVICE Routine 07/27/2024 1 2:40 PM CDT URINALYSIS AND REFLEX TO MICROSCOPIC Routine 07/27/2024 11:12 AM CDT URINALYSIS, MICROSCOPIC ONLY Routine 07/27/2024 11:12 AM CDT POCT GLUCOSE DEVICE Routine 07/27/2024 6 :09 AM CDT EGFR Routine 07/27/2024 4:26 AM CDT CBC WITHOUT DIFFERENTIAL Routine 07/27/2024 4:26 AM CDT BASIC METABOLIC PANEL Routine 07/27/2024 4:26 AM CDT HEMOGLOBIN AND HEMATOCRIT Timed 07/26/2024 10:12 PM CDT POCT GLUCOSE DEVICE Routine 07/26/2024 8 :34 PM CDT POCT GLUCOSE DEVICE Routine 07/26/2024 5 :07 PM CDT TRANSFUSE RED BLOOD CELLS Timed 07/26/2024 4:26 PM CDT UREA NITROGEN, URINE, RANDOM Routine 07/26/2024 3:50 PM CDT SODIUM, URINE, RANDOM Routine 07/26/2024 3:50 PM CDT CREATININE, URINE, RANDOM Routine 07/26/2024 3:50 PM CDT B CHECK SAMPLE STAT 07/26/2024 3:13 PM CDT TYPE AND SCREEN Timed 07/26/2024 2:18 PM CDT POCT GLUCOSE DEVICE Routine 07/26/2024 1 1:38 AM CDT IRON PROFILE W/ IBC Add-On 07/26/2024 9 :13 AM CDT FOLATE Add-On 07/26/2024 9:13 AM CDT VITAMIN B12 Add-On 07/26/2024 9:13 AM CDT PREPARE RBC STAT 07/26/2024 8:27 AM CDT POCT GLUCOSE DEVICE Routine 07/26/2024 7 :42 AM CDT EGFR Routine 07/26/2024 4:40 AM CDT DIFFERENTIAL AUTO Routine 07/26/2024 4:4 0 AM CDT CBC WITH AUTO DIFFERENTIAL Routine 07/26/2024 4:40 AM CDT COMPREHENSIVE METABOLIC PANEL Routine 07/26/2024 4:40 AM CDT documented in this encounter Results * Ferritin (07/28/2024 8:33 AM CDT) Ferritin 183 30 - 400 ng/mL Blood 07/28/2024 8:33 AM CDT 07/28/2024 8:38 AM CDT Emiliano Low DO LAB BLOOD ORDERABLES Final Result NINA DAVID [address] [place] [place] [address] * POCT glucose (07/28/2024 6:56 AM CDT) Glucose, POC 152 70 - 199 mg/dL POC Performer [id number] [facility] Blood 07/28/2024 6:56 AM CDT 07/28/2024 6:56 AM CDT Edward Witt DO LAB POCT ORDERABLES - DEV ICE Final Result Performing Organization Address [facility] Co de Phone Number NINA DAVID [address] [place] [place] [address] * (ABNORMAL) eGFR (07/28/2024 5:50 AM CDT) eGFR 48(L) >=60 mL/min/1. 73 m2 Comment: [...] DO LAB BLOOD ORDERABLES Alicia l Result NINA DAVID [address] [place] [address] * (ABNORMAL) Basic metabolic panel (07/28/2024 5:50 [...] CH Glucose 138 70 - 199 mg/dL [facility] Comment: Interpretive Data Fasting glucose >/= [...] 2022. Calcium 8.7 8.5 - 10.3 mg/dL [facility] Blood 07/28/2024 5:50 AM CDT 07/28/2024 6:24 AM CDT Edward Witt DO LAB BLOOD ORDERABLES Alicia l Result NINA DAVID [address] [place] [address] * (ABNORMAL) CBC without differential (07/28/2024 5:50 AM CDT) WBC 5.01 3.80 - 9.90 K/cumm Hgb 8.3(L) 13.0 - 17.5 g/dL [facility] CH Hct 25.7(L) 38.9 - 50.3 % [facility] Plt 130(L) 150 - 400 K/cumm [facility] MPV 9.5 9.1 - 12.3 fL [facility] RBC 2.68(L) 4.30 - 5.80 M/cumm [facility] MCV 95.9 81.3 - 96.4 fL [facility] MCH 31.0 27.1 - 33.3 pg [facility] MCHC 32.3 32.3 - 35.7 g/dL [facility] CH RDW CV 15.7(H) 11.1 - 14.9 % [facility] RDW SD 54.1(H) 35.7 - 48.1 fL [facility] NRBC abs 0.00 0.00 - 0.01 K/cumm [facility] Blood 07/28/2024 5:50 AM CDT 07/28/2024 6:24 AM CDT [facility] Alicia l Result Performing Organization Address City/[facility]/ZIP Co de Phone Number NINA DAVID [address] [place] [address] * (ABNORMAL) POCT glucose (07/27/2024 9:07 PM CDT) Glucose, POC 232(H) 70 - 199 mg/dL POC Performer [id number] [facility] Blood 07/27/2024 9:07 PM CDT 07/27/2024 9:07 PM CDT [facility] PO[facility]LES - DEV ICE Final Result Performing Organization Address City/[facility]/ZIP Co de Phone Number NINA DAVID [address] [facility] [place] [place], [place] [id number] * Lactate (07/27/2024 7:36 PM CDT) Lactate 0.8 0.7 - 2.0 mmol/L Blood 07/27/2024 7:36 PM CDT 07/27/2024 7:46 PM CDT [facility] BLOOD ORDERABLES Alicia l Result Performing Organization Address [facility] Co de Phone Number NINA DAVID [address] [facility] [place] [place] [address] * POCT glucose (07/27/2024 5:27 PM CDT) Glucose, POC 129 70 - 199 mg/dL POC Performer [id number] [facility] CH Blood 07/27/2024 5:27 PM CDT 07/27/2024 5:27 PM CDT [facility] POCT ORDERABLES - DEV ICE Final Result Performing Organization Address [facility] de Phone Number NINA DAVID [address] [place] [address] * (ABNORMAL) POCT glucose (07/27/2024 12:40 PM CDT) Glucose, POC 262(H) 70 - 199 mg/dL POC Performer [id number] [facility] CH Blood 07/27/2024 12:4 0 PM CDT 07/27/2024 12:40 PM CDT [facility] POCT ORDERABLES - DEV ICE Final Result Performing Organization Address [facility] de Phone Number NINA DAVID [address] [address] [facility] [place] [place] [address] * (ABNORMAL) Urinalysis, microscopic only (07/27/2024 11:12 AM CDT) WBC, ur >50(A) 0 - 5 /HPF RBC, ur 6-10(A) 0 - 2 /HPF [facility] Epithelial cells, squamous, ur 1-5 0 - 5 /HPF [facility] Urine 07/27/2024 11:1 2 AM CDT 07/27/2024 11:23 AM CDT Edward Gary Witt DO LAB URINE ORDERABLES Alicia l Result Performing Organization Address [facility] Co de Phone Number NINA DAVID [address] [place] [place] [address] * (ABNORMAL) Urinalysis reflex to microscopic (07/27/2024 [...] tendency for uric acid stone formation. Source: [facility] Current Interpretive Data was last revised on [...] ORDERABLES Alicia l Result Performing Organization Address [facility] Co de Phone Number NINA DAVID [address] [facility] [place] [place] [address] * POCT glucose (07/27/2024 6:09 AM CDT) Glucose, POC 190 70 - 199 mg/dL POC Performer [id number] [facility] Blood 07/27/2024 6:09 AM CDT 07/27/2024 6:09 AM CDT Edward Vega Witt DO LAB POCT ORDERABLES - DEV ICE Final Result Performing Organization Address [facility] de Phone Number NINA [address] [place] [place], [place] [id number] * (ABNORMAL) eGFR (07/27/2024 4:26 AM CDT) [...] ORDERABLES Alicia l Result Performing Organization Address [facility] Co de Phone Number NINA DAVID [address] [place] [place] [address] * (ABNORMAL) Basic metabolic panel (07/27/2024 4:26 AM CDT) Sodium 136 135 - 145 mmol/L Potassium, pl 5.2(H) 3.3 - 4.9 mmol/L [facility] Chloride 112(H) 97 - 110 mmol/L [facility] CO2 15(L) 22 - 32 mmol/L [facility] Anion gap 9 2 - 15 mmol/L [facility] BUN 33(H) 6 - 25 mg/dL [facility] Creatinine 1.67(H) 0.80 - 1.30 mg/dL [facility] Glucose 175 70 - 199 mg/dL [facility] Comment: Interpretive Data Fasting glucose >/= 126 [...] 2022. Calcium 8.9 8.5 - 10.3 mg/dL [facility] Blood 07/27/2024 4:26 AM CDT 07/27/2024 4:36 AM CDT Edward Witt DO LAB BLOOD ORDERABLES Alicia ordaz Result NINA [address] [place] [address] * (ABNORMAL) CBC without differential (07/27/2024 4:26 AM CDT) Pathologist [facility] WBC 4.08 3.80 - 9.90 K/cumm Hgb 7.7(L) 13.0 - 17.5 g/dL [facility] Hct 25.0(L) 38.9 - 50.3 % [facility] Plt 112(L) 150 - 400 K/cumm [facility] MPV 9.5 9.1 - 12.3 fL [facility] RBC 2.49(L) 4.30 - 5.80 M/cumm [facility] MCV 100.4(H) 81.3 - 96.4 fL [facility] MCH 30.9 27.1 - 33.3 pg [facility] MCHC 30.8(L) 32.3 - 35.7 g/dL [facility] CH RDW CV 15.8(H) 11.1 - 14.9 % [facility] CH RDW SD 57.8(H) 35.7 - 48.1 fL [facility] NRBC abs 0.00 0.00 - 0.01 K/cumm [facility] Blood 07/27/2024 4:26 AM CDT 07/27/2024 4:37 AM CDT Edward Witt DO LAB BLOOD ORDERABLES Alicia l Result Performing Organization Address [facility] Co de Phone Number [facility] DAVID [address] [facility] [place] [place] [address] * (ABNORMAL) Hemoglobin and hematocrit (07/26/2024 10:12 PM CDT) [facility] Hgb 7.8(L) 13.0 - 17.5 g/dL Hct 24.9(L) 38.9 - 50.3 % [facility] Blood 07/26/2024 10:1 2 PM CDT 07/26/2024 10:21 PM CDT Narrative [facility] - 07/26/2024 10:27 PM CDT 1 hour after the red blood cell transfusion is complete. Edward Witt DO LAB BLOOD ORDERABLES Alicia l Result Performing Organization Address [facility] Co de Phone Number CL[place]ENCEW[place] DAVID [address] [place] [place] [address] * Transfuse RBC (07/26/2024 9:19 PM CDT) Blood Edward Witt DO BLOOD TRANSFUSION ORDERAB LES Final Result Performing Organization Address [facility] Co de Phone Number NINA DAVID [address] [place] [place] [address] * Transfuse RBC: 1 Units (07/26/2024 9:19 PM CDT) Blood Edward Witt DO BLOOD TRANSFUSION ORDERAB LES Final Result * (ABNORMAL) POCT glucose (07/26/2024 8:34 PM CDT) Glucose, POC 261(H) 70 - 199 mg/dL POC Performer [id number] [facility] Blood 07/26/2024 8:34 PM CDT 07/26/2024 8:34 PM CDT Edward Witt DO LAB POCT ORDERABLES - DEV ICE Final Result Performing Organization Address [facility] Co de Phone Number NINA [address] [address] [place] [place] [address] * (ABNORMAL) POCT glucose (07/26/2024 5:07 PM CDT) Glucose, POC 298(H) 70 - 199 mg/dL POC Performer [id number] [facility] Blood 07/26/2024 5:07 PM CDT 07/26/2024 5:07 PM CDT Edward Witt DO LAB POCT ORDERABLES - DEV ICE Final Result Performing Organization Address [facility] de Phone Number NINA [address] [address] [place] [place] [address] * Sodium, urine, random (07/26/2024 3:50 PM CDT) Sodium, ur 98 mmol/L Comment: Interpretive Data No reference range established. Current interpretive data was last revised 2018. Urine 07/26/2024 3:50 PM CDT 07/26/2024 3:57 PM CDT Tamara Johnson MD LAB URINE ORDERABLES Alicia l Result Performing Organization Address [facility] Co de Phone Number NINA DAIVD [address] [place] [place] [address] * Urea nitrogen, urine, random (07/26/2024 3:50 PM CDT) Urea nitrogen, ur 541 mg/dL Comment: Interpretive Data No reference range established. Current interpretive data was last revised 2018. Urine 07/26/2024 3:50 PM CDT 07/26/2024 3:57 PM CDT Tamara Johnson MD LAB URINE ORDERABLES Alicia l Result Performing Organization Address [facility] Co de Phone Number NINA DAVID [address] [address] [place] [place] [address] * Creatinine, urine, random (07/26/2024 3:50 PM CDT) Creatinine Ur 69.4 mg/dL Comment: Interpretive Data No reference range established. Current interpretive data was last revised 2018. Urine 07/26/2024 3:50 PM CDT 07/26/2024 3:57 PM CDT Tamara Johnson MD LAB URINE ORDERABLES Alicia l Result Performing Organization Address [facility] Co de Phone Number NINA DAVID [address] [place] [address] * Check Sample (07/26/2024 3:13 PM CDT) ABO Rh A Positive CH HCLL OTHER 07/26/2024 3:13 PM CDT 07/26/2024 3:14 PM CDT Edward Witt DO LAB BLOOD ORDERABLES Alicia l Result Performing Organization Address City/[facility]/ZIP Co de Phone Number NINA DAVID [address] [place] [address] CH * Type and screen (07/26/2024 2:18 PM CDT) ABO Rh A Positive Sergio, indirect Negative [facility] Blood 07/26/2024 2:18 PM CDT 07/26/2024 2:26 PM CDT Narrative [facility] - 07/26/2024 3:15 PM CDT Has the patient had Daratumumab or Isatuximab in the past 6 months?->Unknown [facility] BLOOD BANK TEST ORDER ZOE Final Result Performing Organization Address [facility] Co de Phone Number NINA DAVID [address] [facility] [place] [place] [address] * (ABNORMAL) POCT glucose (07/26/2024 11:38 AM CDT) Pathologist [facility] Glucose, POC 346(H) 70 - 199 mg/dL POC Performer [id number] [facility] Blood 07/26/2024 11:3 8 AM CDT 07/26/2024 11:38 AM CDT Edward Witt [facility] POCT ORDERABLES - DEV ICE Final Result Performing Organization Address [facility] Co de Phone Number NINA DAVID [address] [address] [facility] [place] [address] * Folate (07/26/2024 9:13 AM CDT) Pathologist [facility] Folic acid 7.4 >=5.0 ng/mL Comment:Hemolysis present. R esults may be affected. Blood 07/26/2024 9:13 AM CDT 07/28/2024 1:12 AM CDT Edward Witt LAB BLOOD ORDERABLES Alicia l Result Performing Organization Address [facility] Co de Phone Number NINA DAVID [address] [address] [place] [place] [address] * Vitamin B12 (07/26/2024 9:13 AM CDT) Pathologist [facility] Vitamin B12 907 230 - 1,250 pg/mL Blood 07/26/2024 9:13 AM CDT 07/28/2024 1:12 AM CDT [facility] Gary Witt LAB BLOOD ORDERABLES Alicia l Result Performing Organization Address [facility] Co de Phone Number NINA DAVID [address] [address] [facility] [place] [place] [address] * (ABNORMAL) Iron profile w/ IBC (07/26/2024 9:13 AM CDT) [facility] Iron 110 50 - 150 mcg/dl TIBC 219(L) 250 - 400 mcg/dL [facility] Transferrin saturation 50 20 - 50 % [facility] Blood 07/26/2024 9:13 AM CDT 07/28/2024 1:12 AM CDT Edward Witt LAB BLOOD ORDERABLES Alicia l Result Performing Organization Address [facility] de Phone Number NINA DAVID [address] [address] [place] [place], [place] [id number] * Prepare RBC: 1 Units (07/26/2024 8:27 AM CDT) [facility] Product code [id number] Unit Number [id number]- Q [facility] Product Blood Type APOS [facility] Dispense Status PRESUMED TRANSFUSED [facility] Blood 07/26/2024 8:27 AM CDT Narrative [facility] - 07/28/2024 10:15 AM CDT Are special requirements needed? (All products are leukoreduced and CMV- safe)- >No Date required:-[id number] LRRBC # of [id number] Reasons:-Hgb <7 g/dL} Edward Witt BLOOD BANK PRODUCT ORDERA BLES Final Result Performing Organization Address [facility] Co de Phone Number NINA DAVID [address] [facility] [place] [place] [address] * POCT glucose (07/26/2024 7:42 AM CDT) Glucose, POC 196 70 - 199 mg/dL POC Performer [id number] NINA DAVID Blood 07/26/2024 7:42 AM CDT 07/26/2024 7:42 AM CDT us Cleveland Mathis MD LAB POCT ORDERABLES - DEVICE Final Result Performing Organization Address City/[facility]/ZIP Co de Phone Number CLARENCEWICHO [address] [address] [facility] [place] [address] * (ABNORMAL) eGFR (07/26/2024 4:40 AM CDT) Pathologist [facility] eGFR 32(L) >=60 mL/min/1. 73 m2 Comment: [...] NP LAB BLOOD ORDERABLES Final R esult [facility] [address] [place] [address] * (ABNORMAL) Differential, auto (07/26/2024 4:40 AM CDT) Neutrophil abs 3.71 1.50 - 6.50 K/cumm Imm gran abs 0.02 0.00 - 0.10 K/cumm [facility] Lymphocyte abs 0.64(L) 0.80 - 3.30 K/cumm [facility] Monocyte abs 0.29 0.20 - 0.80 K/cumm [facility] Eosinophil abs 0.19 0.00 - 0.50 K/cumm [facility] Basophil abs 0.02 0.00 - 0.10 K/cumm [facility] Neutrophil pct 76.2 % [facility] Comment: Interpretive Data Percent cell count reference ranges are not reported, since discordance with absolute values may lead to misinterpretation of CBC data. Current Interpretive Data was last revised on 2017. Imm gran pct 0.4 % [facility] Comment: Interpretive Data Percent cell count reference ranges are not reported, since discordance with absolute values may lead to misinterpretation of CBC data. Current Interpretive Data was last revised on 2017. Lymphocyte pct 13.1 % [facility] Comment: Interpretive Data Percent cell count reference ranges are not reported, since discordance with absolute values may lead to misinterpretation of CBC data. Current Interpretive Data was last revised on 2017. Monocyte pct 6.0 % CERNER Comment: Interpretive Data Percent cell count reference ranges are not reported, since discordance with absolute values may lead to misinterpretation of CBC data. Current Interpretive Data was last revised on 2017. Eosinophil pct 3.9 % CERNER Comment: Interpretive Data Percent cell count reference ranges are not reported, since discordance with absolute values may lead to misinterpretation of CBC data. Current Interpretive Data was last revised on 2017. Basophil pct 0.4 % CERNER Comment: Interpretive Data Percent cell count reference ranges are not reported, since discordance with absolute values may lead to misinterpretation of CBC data. Current Interpretive Data was last revised on 2017. Blood 07/26/2024 4:40 AM CDT 07/26/2024 4:52 AM CDT us Janeenotf Diego ELENA LAB BLOOD [place] [id number] [address] Department [place] [address] * (ABNORMAL) Comprehensive metabolic panel (07/26/2024 4:40 [...] NP LAB BLOOD ORDERABLES Final R esult NINA DAVID [id number] Yuki Webber Department [place] [address] * (ABNORMAL) CBC with auto differential (07/26/2024 4:40 AM CDT) WBC 4.87 3.80 - 9.90 K/cumm Hgb 6.9(L) 13.0 - 17.5 g/dL [facility] CH Hct 22.2(L) 38.9 - 50.3 % C[facility] CH Plt 116(L) 150 - 400 K/cumm [facility] CH MPV 9.4 9.1 - 12.3 fL CERN[facility] RBC 2.21(L) 4.30 - 5.80 M/cumm [facility] CH MCV 100.5(H) 81.3 - 96.4 fL [facility] CH MCH 31.2 27.1 - 33.3 pg [facility] MCHC 31.1(L) 32.3 - 35.7 g/dL [facility] CH RDW CV 15.8(H) 11.1 - 14.9 % [facility] CH RDW SD 58.2(H) 35.7 - 48.1 fL [facility] NRBC abs 0.00 0.00 - 0.01 K/cumm [facility] Blood 07/26/2024 4:40 AM CDT 07/26/2024 4:52 AM CDT Randall Cortez NP LAB BLOOD ORDERABLES Final R esult NINA Mcclellan33 Yuki Webber Department [place] [address] documented in this encounter Visit Diagnoses Diagnosis Chest pain- Primary Unspecified chest pain Moderate protein-calorie malnutrition documented in this encounter Admitting Diagnoses Diagnosis Chest pain Unspecified chest pain documented in this encounter Administered Medications Inactive Administered Medications - up to 3 most recent administrations Medication Order MAR Action Action Date Dose Rate Site acetaminophen (TYLENOL) tablet 650 mg 650 mg, oral, Every 6 hours PRN, 1st line for pain, headaches, fever, Starting on [facility] 07/26/24 at 0154 atorvastatin (LIPITOR) tablet 40 mg 40 mg, oral, Daily, First dose on [facility] 07/26/24 at 0900 Given 07/28/2024 11:27 AM CDT 40 mg Given 07/27/2024 8:43 AM CDT 40 mg Given 07/26/2024 8:01 AM CDT 40 mg calcium carbonate (TUMS) chewable tablet 500 mg 500 mg (200 mg of elemental calcium), oral, 4 times daily PRN, indigestion, heartburn, Starting on [facility] 07/26/24 at 1829 Given 07/26/2024 6:32 PM CDT 500 mg cefTRIAXone (ROCEPHIN) 1,000 mg/10 mL in sterile water (premix) 1,000 mg 1,000 mg, intravenous, at 120 mL/hr, Administer over 5 Minutes, Every 24 hours scheduled, First dose on [place] 07/27/24 at 1415, For 7 days, Indications: Urinary Tract/Genitourinary InfectionIndications:Urinary Tract/Genitourinary Infection Given 07/28/2024 11:27 AM CDT 1,000 mg 120 mL/hr Given 07/27/2024 3:46 PM CDT 1,000 mg 120 mL/hr clopidogreL (PLAVIX) tablet 75 mg 75 mg, oral, Daily, First dose on [facility] 07/26/24 at 0900 Given 07/28/2024 11:27 AM CDT 75 mg Given 07/27/2024 8:43 AM CDT 75 mg Given 07/26/2024 8:01 AM CDT 75 mg dextrose (D10W) 10% bolus 250 mL 250 mL, intravenous, at 999 mL/hr, Administer over 15 Minutes, Every 15 min PRN, blood glucose less than 70 mg/dL and UNABLE to swallow/take PO glucose/juice., Starting on [facility] 07/26/24 at 0154, After treatment for hypoglycemia, recheck BG followed by treatment every 15 minutes until the BG is greater than 100 mg/dL. Then check BG 1 hour post treatment. If BG is less than 100 mg/dL, repeat Q15 minute BG checks and treatment. Call MD for each episode of hypoglycemia., Indications: hypoglycemic disorderIndications:hypoglycem ic disorder dextrose oral liquid liquid 15 g 15 g, oral, Every 15 min PRN, low blood sugar, blood glucose less than 70 mg/dL, Starting on 07/26/24 at 0154, If patient is alert and able to eat/drink, give 15 gm glucose or one juice (4 fluid ounces) NOT ORANGE JUICE. After treatment for hypoglycemia, recheck BG followed by treatment every 15 minutes until the BG is greater than 100 mg/dL. Then check BG 1 hour post-treatment. If BG is less than 100 mg/dL, repeat Q15 minute BG checks and treatment. Call MD for each episode of hypoglycemia., Indications: hypoglycemic disorderIndications:hypoglycem ic disorder docusate sodium (COLACE) capsule 100 mg 100 mg, oral, 2 times daily PRN, constipation, Starting on 07/26/24 at 0137, Indications: constipationIndications:consti annita ferrous sulfate delayed release tablet 65 mg of elemental iron 65 mg of elemental iron, oral, Daily with breakfast, First dose on 07/26/24 at 0800, 325 MG OF FERROUS SULFATE = 65 MG OF ELEMENTAL IRON, Indications: Iron Deficiency AnemiaIndications:Iron Deficiency Anemia Given 07/27/2024 8:43 AM CDT 65 mg of elemental iron Given 07/26/2024 8:01 AM CDT 65 mg of elemental iron glucagon injection 1 mg 1 mg, intramuscular, Every 30 min PRN, low blood sugar, blood glucose less than 70 mg/dL AND no IV access AND unable to take PO glucose/juice., Starting on 07/26/24 at 0154, After Glucagon is administered, position patient on side if possible to avoid aspiration. Obtain IV access. Follow glucagon treatment with glucose treatment or IV dextrose. After treatment for hypoglycemia, recheck BG followed by treatment every 15 minutes until the BG is greater than 100 mg/dL. Then check BG 1 hour post treatment. If BG is less than 100 mg/dL, repeat Q15 minute BG checks and treatment. Call MD for each episode of hypoglycemia. Reconstitute 1 mg vial with 1 mL SWFI. Use immediately following reconstitution. insulin glargine (LANTUS, SEMGLEE) 100 unit/mL injection 15 Units 15 Units, subcutaneous, Every morning, First dose on 07/26/24 at 1230, Do not mix with other insulins Given 07/28/2024 11:27 AM CDT 15 Units Right Upper Arm Given 07/27/2024 8:43 AM CDT 15 Units Le ft Lower Abdomen Given 07/26/2024 12:00 PM CDT 15 Units R ight Upper Arm insulin lispro (HumaLOG, ADMELOG) 100 unit/mL injection 0-4 Units 0-4 Units, subcutaneous, Nightly, First dose on 07/26/24 at 2100, Blood glucose mg/dL: 199 or less: No insulin 200-249: give 1 unit 250-299: give 2 units 300-349: give 3 units and notify physician for adjustment of insulin orders. 350-399: give 4 units and notify physician for adjustment of insulin orders. Over 400: Notify physician for adjustment of insulin orders. Do NOT hold for NPO Status, Indications: Diabetes MellitusIndications:Diabetes Mellitus Given 07/27/2024 9:11 PM CDT 1 Units Left Lower Abdomen Given 07/26/2024 8:38 PM CDT 2 Units Le ft Upper Arm insulin lispro (HumaLOG, ADMELOG) 100 unit/mL injection 0-5 Units 0-5 Units, subcutaneous, 3 times daily with meals, First dose on 07/26/24 at 0800, Blood glucose mg/dL: 149 or less: No insulin 150-199: give 1 unit 200-249: give 2 units 250-299: give 3 units 300-349: give 4 units and notify physician for adjustment of insulin orders. 350-399: give 5 units and notify physician for adjustment of insulin orders. Over 400: Notify physician for adjustment of insulin orders. Do NOT hold for NPO Status, Indications: Diabetes MellitusIndications:Diabetes Mellitus Given 07/28/2024 7:00 AM CDT 1 Units Left Lower Abdomen Given 07/27/2024 12:42 PM CDT 3 Units L eft Lower Abdomen Given 07/27/2024 6:12 AM CDT 1 Units Le ft Upper Arm metoprolol XL (TOPROL-XL) extended release tablet 50 mg 50 mg, oral, Daily, First dose on Sun07/28/24 at 0930, Tablets that are scored may be split, but do not crush, chew, dissolve, open or otherwise manipulate tablet/capsule. Given 07/28/2024 11:33 AM CDT [address] (PROTONIX) extended release tablet 40 mg 40 mg, oral, Daily, First dose on 07/26/24 at 0900, Do not crush, chew, cut, dissolve, open or otherwise manipulate tablet/capsule., Indications: Stress Ulcer ProphylaxisIndications:Stress Ulcer Prophylaxis Given 07/28/2024 11:27 AM CDT 40 mg Given 07/27/2024 8:43 AM CDT 40 mg Given 07/26/2024 8:01 AM CDT 40 mg pregabalin (LYRICA) capsule 50 mg 50 mg, oral, 3 times daily, First dose on 07/26/24 at 0900 Given 07/28/2024 11:27 AM CDT 50 mg Given 07/27/2024 9:07 PM CDT 50 mg Given 07/27/2024 5:29 PM CDT 50 mg rivaroxaban (XARELTO) tablet 20 mg 20 mg, oral, Daily with breakfast, First dose on 07/26/24 at 0800, Nurse to discontinue heparin infusion order and associated bolus at first administration of rivaroxaban using 'order condition met' order source. If patient is eating, administer doses of 15 mg or greater with food. If patient is not eating, still administer dose unless instructed differently by provider., Indications: Venous ThrombosisIndications:Venous Thrombosis Given 07/28/2024 11:27 AM CDT 20 mg Given 07/27/2024 8:43 AM CDT 20 mg Given 07/26/2024 8:01 AM CDT 20 mg sacubitriL-valsartan (ENTRESTO) 24-26 mg tablet 1 tablet 1 tablet, oral, 2 times daily, First dose on Sun07/28/24 at 0930, Indications: chronic heart failureIndications:chronic heart failure Given 07/28/2024 11:33 AM CDT 1 tablet sodium bicarbonate tablet 650 mg 650 mg, oral, 3 times daily, First dose on Sun07/27/24 at 1600, Each 650 mg tablet contains 7.7 mEq bicarbonate and 7.7 mEq of sodium. Given 07/28/2024 11:27 AM CDT 650 mg Given 07/27/2024 9:07 PM CDT 650 mg Given 07/27/2024 5:29 PM CDT 650 mg sodium chloride 0.9% bolus 500 mL 500 mL, intravenous, at 500 mL/hr, Administer over 1 Hours, Once, On 07/26/24 at 1100, For 1 dose Rate/Dose Verify 07/26/2024 12:59 PM CDT 500 mL/hr New Bag 07/26/2024 12:49 PM CDT 500 mL 500 mL/hr sodium chloride 0.9% flush 0.5-20 mL 0.5-20 mL, intra-catheter, Every 8 hours scheduled (alternate), First dose on 07/26/24 at 0215, Flush volume based on line type and size. Given 07/28/2024 11:29 AM CDT 10 mL Given 07/28/2024 12:00 AM CDT 5 mL Given 07/27/2024 5:32 PM CDT 10 mL sodium chloride 0.9% IVPB 0-250 mL 0-250 mL, intravenous, Once, On 07/26/24 at 0900, For 1 dose, Prime blood tubing and administer amount needed to clear line (usually 50-100 mL) after transfusion complete. New Bag 07/26/2024 4:15 PM CDT 250 mL 10 mL/hr sodium zirconium cyclosilicate (LOKELMA) packet 10 g 10 g, oral, Once, On 07/26/24 at 0900, For 1 dose, Adjust medication timing to ensure other oral medications are administered at least 2 hours before or 2 hours after sodium zirconium cyclosilicate. Empty packet(s) into a glass with 3 tablespoons (45 mL) of water. Stir and administer immediately. Repeat until no powder remains in glass., Indications: hyperkalemiaIndications:hyperkalemi a Given 07/26/2024 10:02 AM CDT 10 g sodium zirconium cyclosilicate (LOKELMA) packet 10 g 10 g, oral, Once, On 07/27/24 at 0715, For 1 dose, Adjust medication timing to ensure other oral medications are administered at least 2 hours before or 2 hours after sodium zirconium cyclosilicate. Empty packet(s) into a glass with 3 tablespoons (45 mL) of water. Stir and administer immediately. Repeat until no powder remains in glass., Indications: hyperkalemiaIndications:hyperkalemi a Given 07/27/2024 8:43 AM CDT 10 g zolpidem (AMBIEN) tablet 5 mg 5 mg, oral, Nightly PRN, sleep, Starting on 07/26/24 at 0156 Given 07/27/2024 9:12 PM CDT 5 mg Given 07/26/2024 11:21 PM CDT 5 mg Given 07/26/2024 2:13 AM CDT 5 mg documented in this encounter Discontinued Medications Medication Sig Discontinue Reason Start Date End Da te amLODIPine (NORVASC) 5 mg tablet Take 1 tablet (5 mg total) by mouth daily Patient Reported 02/09/2024 07/26/2024 isosorbide mononitrate ER (IMDUR) 60 mg 24 hr tablet Take 1 tablet (60 mg total) by mouth every morning Patient Reported 01/23/2024 07/26/2024 nadoloL (CORGARD) 40 mg tablet Take 1 tablet (40 mg total) by mouth daily Patient Reported 11/07/2023 07/26/2024 insulin degludec (TRESIBA) 100 unit/mL (3 mL) pen for injection Inject 0.5 mL (50 Units total) under the skin nightly 07/28/2024 documented as of this encounter Active and Recently Administered Medications Times are shown in CDT. Scheduled Medication Order 07/26/2024 07/27/2024 07/28/2024 atorvastatin (LIPITOR) tablet 40 mg 40 mg, oral, Daily, First dose on 07/26/24 at 0900 0801 (Given - Provider: Apple Steward) 0843 (Given - Provider: Ranjana Sam RN) 1127 (Given - Provider: Martha Zamorano RN) cefTRIAXone (ROCEPHIN) 1,000 mg/10 mL in sterile water (premix) 1,000 mg 1,000 mg, intravenous, at 120 mL/hr, Administer over 5 Minutes, Every 24 hours scheduled, First dose on 07/27/24 at 1415, For 7 days, Indications: Urinary Tract/Genitourinary Infection 1546 (Given - Provider: Ranjana Sam RN) 1127 (Given - Provider: Martha Zamorano, MARIANA) clopidogreL (PLAVIX) tablet 75 mg 75 mg, oral, Daily, First dose on 07/26/24 at 0900 0801 (Given - Provider: Apple Steward) 0843 (Given - Provider: Ranjana Sam RN) 1127 (Given - Provider: Martha Zamorano, RN) ferrous sulfate delayed release tablet 65 mg of elemental iron (CANCELED) 65 mg of elemental iron, oral, Daily with breakfast, First dose on 07/26/24 at 0800, 325 MG OF FERROUS SULFATE = 65 MG OF ELEMENTAL IRON, Indications: Iron Deficiency Anemia 0801 (Given - Provider: Apple Steward) 0843 (Given - Provider: Ranjana Sam RN) 1134 (Not Given - Provider: Martha Zamorano, RN - Reason: See Provider Order) insulin glargine (LANTUS, SEMGLEE) 100 unit/mL injection 15 Units 15 Units, subcutaneous, Every morning, First dose on 07/26/24 at 1230, Do not mix with other insulins 1200 (Given - Provider: Apple Steward) 0843 (Given - Provider: Ranjana Sam RN) 1127 (Given - Provider: Martha Zamorano, RN) insulin lispro (HumaLOG, ADMELOG) 100 unit/mL injection 0-4 Units 0-4 Units, subcutaneous, Nightly, First dose on 07/26/24 at 2100, Blood glucose mg/dL: 199 or less: No insulin 200-249: give 1 unit 250-299: give 2 units 300-349: give 3 units and notify physician for adjustment of insulin orders. 350-399: give 4 units and notify physician for adjustment of insulin orders. Over 400: Notify physician for adjustment of insulin orders. Do NOT hold for NPO Status, Indications: Diabetes Mellitus 2037 (Given - Provider: Nurys Kelly) 2110 (Given - Provider: Nurys Kelly) insulin lispro (HumaLOG, ADMELOG) 100 unit/mL injection 0-5 Units 0-5 Units, subcutaneous, 3 times daily with meals, First dose on 07/26/24 at 0800, Blood glucose mg/dL: 149 or less: No insulin 150-199: give 1 unit 200-249: give 2 units 250-299: give 3 units 300-349: give 4 units and notify physician for adjustment of insulin orders. 350-399: give 5 units and notify physician for adjustment of insulin orders. Over 400: Notify physician for adjustment of insulin orders. Do NOT hold for NPO Status, Indications: Diabetes Mellitus 0800 (Given - Provider: Apple Steward)1159 (Given - Provider: Apple Steward)1719 (Given - Provider: Apple Steward) 0612 (Given - Provider: Nurys Kelly)1242 (Given - Provider: Ranjana Sam, MARIANA)1727 (Not Given - Provider: Ranjana Sam RN - Reason: Order parameters not met) 0700 (Given - Provider: Nurys Kelly)1200 (Due) metoprolol XL (TOPROL-XL) extended release tablet 50 mg 50 mg, oral, Daily, First dose on Sun07/28/24 at 0930, Tablets that are scored may be split, but do not crush, chew, dissolve, open or otherwise manipulate tablet/capsule. 1133 (Given - Provider: Martha Zamorano, MARIANA) pantoprazole DR (PROTONIX) extended release tablet 40 mg 40 mg, oral, Daily, First dose on 07/26/24 at 0900, Do not crush, chew, cut, dissolve, open or otherwise manipulate tablet/capsule., Indications: Stress Ulcer Prophylaxis 0801 (Given - Provider: Apple Steward) 0843 (Given - Provider: Ranjana Sam RN) 1127 (Given - Provider: Martha Zamorano, MARIANA) pregabalin (LYRICA) capsule 50 mg 50 mg, oral, 3 times daily, First dose on 07/26/24 at 0900 0746 (Given - Provider: Apple Steward)1719 (Given - Provider: Apple Steward)2038 (Given - Provider: Nurys Kelly) 0843 (Given - Provider: Ranjana Sam RN)1729 (Given - Provider: Ranjana Sam RN)2107 (Given - Provider: Nurys Kelly) 1127 (Given - Provider: Martha Zamorano, MARIANA) rivaroxaban (XARELTO) tablet 20 mg 20 mg, oral, Daily with breakfast, First dose on 07/26/24 at 0800, Nurse to discontinue heparin infusion order and associated bolus at first administration of rivaroxaban using 'order condition met' order source. If patient is eating, administer doses of 15 mg or greater with food. If patient is not eating, still administer dose unless instructed differently by provider., Indications: Venous Thrombosis 0801 (Given - Provider: Apple Steward) 0843 (Given - Provider: Ranjana Sam RN) 1127 (Given - Provider: Martha Zamorano, RN) sacubitriL-valsartan (ENTRESTO) 24-26 mg tablet 1 tablet 1 tablet, oral, 2 times daily, First dose on Sun07/28/24 at 0930, Indications: chronic heart failure 1133 (Given - Provider: Martha Zamorano, MARIANA) sodium bicarbonate tablet 650 mg 650 mg, oral, 3 times daily, First dose on Sun07/27/24 at 1600, Each 650 mg tablet contains 7.7 mEq bicarbonate and 7.7 mEq of sodium. 1729 (Given - Provider: Ranjana Sam RN)2107 (Given - Provider: Nurys Kelly) 1127 (Given - Provider: Martha Zamorano RN) sodium chloride 0.9% bolus 500 mL (COMPLETED) 500 mL, intravenous, at 500 mL/hr, Administer over 1 Hours, Once, On 07/26/24 at 1100, For 1 dose 1249 (New Bag - Provider: Apple Steward - Comment: clarified with dr johnson)1259 (Rate/Dose Verify - Provider: Apple Steward) sodium chloride 0.9% flush 0.5-20 mL 0.5-20 mL, intra-catheter, Every 8 hours scheduled (alternate), First dose on 07/26/24 at 0215, Flush volume based on line type and size. 0144 (Given - Provider: Amina Coulter RN)0802 (Given - Provider: Apple Steward)1615 (Given - Provider: Apple Steward)2321 (Given - Provider: Nurys Kelly) 0843 (Given - Provider: Ranjana Sam, MARIANA)1732 (Given - Provider: Ranjana Sam, MARIANA) 0000 (Given - Provider: Nurys Kelly)1129 (Given - Provider: Martha Nyla Zamorano, RN) sodium chloride 0.9% IVPB 0-250 mL (COMPLETED) 0-250 mL, intravenous, Once, On 07/26/24 at 0900, For 1 dose, Prime blood tubing and administer amount needed to clear line (usually 50-100 mL) after transfusion complete. 1615 (New Bag - Provider: Apple Steward - Comment: blood requested) sodium zirconium cyclosilicate (LOKELMA) packet 10 g (COMPLETED) 10 g, oral, Once, On 07/26/24 at 0900, For 1 dose, Adjust medication timing to ensure other oral medications are administered at least 2 hours before or 2 hours after sodium zirconium cyclosilicate. Empty packet(s) into a glass with 3 tablespoons (45 mL) of water. Stir and administer immediately. Repeat until no powder remains in glass., Indications: hyperkalemia 1002 (Given - Provider: Apple Steward) sodium zirconium cyclosilicate (LOKELMA) packet 10 g (COMPLETED) 10 g, oral, Once, On 07/27/24 at 0715, For 1 dose, Adjust medication timing to ensure other oral medications are administered at least 2 hours before or 2 hours after sodium zirconium cyclosilicate. Empty packet(s) into a glass with 3 tablespoons (45 mL) of water. Stir and administer immediately. Repeat until no powder remains in glass., Indications: hyperkalemia 0843 (Given - Provider: Ranjana Sam RN) PRN Medication Order 07/26/2024 07/27/2024 07/28/2024 acetaminophen (TYLENOL) tablet 650 mg 650 mg, oral, Every 6 hours PRN, 1st line for pain, headaches, fever, Starting on 07/26/24 at 0154 calcium carbonate (TUMS) chewable tablet 500 mg 500 mg (200 mg of elemental calcium), oral, 4 times daily PRN, indigestion, heartburn, Starting on 07/26/24 at 1829 1832 (Given - Provider: Apple Steward) dextrose (D10W) 10% bolus 250 mL(Linked Group 1) 250 mL, intravenous, at 999 mL/hr, Administer over 15 Minutes, Every 15 min PRN, blood glucose less than 70 mg/dL and UNABLE to swallow/take PO glucose/juice., Starting on 07/26/24 at 0154, After treatment for hypoglycemia, recheck BG followed by treatment every 15 minutes until the BG is greater than 100 mg/dL. Then check BG 1 hour post treatment. If BG is less than 100 mg/dL, repeat Q15 minute BG checks and treatment. Call MD for each episode of hypoglycemia., Indications: hypoglycemic disorder dextrose oral liquid liquid 15 g(Linked Group 1) 15 g, oral, Every 15 min PRN, low blood sugar, blood glucose less than 70 mg/dL, Starting on 07/26/24 at 0154, If patient is alert and able to eat/drink, give 15 gm glucose or one juice (4 fluid ounces) NOT ORANGE JUICE. After treatment for hypoglycemia, recheck BG followed by treatment every 15 minutes until the BG is greater than 100 mg/dL. Then check BG 1 hour post-treatment. If BG is less than 100 mg/dL, repeat Q15 minute BG checks and treatment. Call MD for each episode of hypoglycemia., Indications: hypoglycemic disorder docusate sodium (COLACE) capsule 100 mg 100 mg, oral, 2 times daily PRN, constipation, Starting on 07/26/24 at 0137, Indications: constipation glucagon injection 1 mg 1 mg, intramuscular, Every 30 min PRN, low blood sugar, blood glucose less than 70 mg/dL AND no IV access AND unable to take PO glucose/juice., Starting on 07/26/24 at 0154, After Glucagon is administered, position patient on side if possible to avoid aspiration. Obtain IV access. Follow glucagon treatment with glucose treatment or IV dextrose. After treatment for hypoglycemia, recheck BG followed by treatment every 15 minutes until the BG is greater than 100 mg/dL. Then check BG 1 hour post treatment. If BG is less than 100 mg/dL, repeat Q15 minute BG checks and treatment. Call MD for each episode of hypoglycemia. Reconstitute 1 mg vial with 1 mL SWFI. Use immediately following reconstitution. hydrOXYzine (ATARAX) tablet 50 mg 50 mg, oral, Every 8 hours PRN, anxiety, Starting on 07/26/24 at 0152 nitroglycerin (NITROSTAT) sublingual tablet 0.4 mg 0.4 mg, sublingual, Every 5 min PRN, chest pain, Starting on 07/26/24 at 0152, May administer up to 3 doses per episode. zolpidem (AMBIEN) tablet 5 mg 5 mg, oral, Nightly PRN, sleep, Starting on 07/26/24 at 0156 0213 (Given - Provider: Amina Coulter RN)2320 (Given - Provider: Nurys Kelly) 2111 (Given - Provider: Nurys Kelly) Linked Groups Order Group 1: dextrose oral liquid liquid 15 gJump to med 15 g, oral, Every 15 min PRN, low blood sugar, blood glucose less than 70 mg/dL, Starting on 07/26/24 at 0154, If patient is alert and able to eat/drink, give 15 gm glucose or one juice (4 fluid ounces) NOT ORANGE JUICE. After treatment for hypoglycemia, recheck BG followed by treatment every 15 minutes until the BG is greater than 100 mg/dL. Then check BG 1 hour post-treatment. If BG is less than 100 mg/dL, repeat Q15 minute BG checks and treatment. Call MD for each episode of hypoglycemia., Indications: hypoglycemic disorder Or dextrose (D10W) 10% bolus 250 mLJump to med 250 mL, intravenous, at 999 mL/hr, Administer over 15 Minutes, Every 15 min PRN, blood glucose less than 70 mg/dL and UNABLE to swallow/take PO glucose/juice., Starting on 07/26/24 at 0154, After treatment for hypoglycemia, recheck BG followed by treatment every 15 minutes until the BG is greater than 100 mg/dL. Then check BG 1 hour post treatment. If BG is less than 100 mg/dL, repeat Q15 minute BG checks and treatment. Call MD for each episode of hypoglycemia., Indications: hypoglycemic disorder documented in this encounter Orders Medications Ordered That Angelo ht Not Have Been Administered Count Last Ordered Date First Ordered Date acetaminophen (TYLENOL) tablet 650 mg 1 dextrose (D10W) 10% bolus 250 mL 1 07/27/19 25 dextrose oral liquid liquid 15 g 1 07/27/19 25 docusate sodium (COLACE) capsule 100 mg 1 0 07/26/2024 enoxaparin (LOVENOX) syringe 40 mg 1 2024 glucagon injection 1 mg 1 07/26/2024 hydrOXYzine (ATARAX) tablet 50 mg 1 025 nitroglycerin (NITROSTAT) bernardo blingual tablet 0.4 mg 1 07/26/2024 Lab Orders Without Results Count Last Ordered D ate First Ordered Date POCT GLUCOSE DEVICE 7 07/28/2024 07/27/19 25 Diet Count Last Ordered Date First Orde red Date ADULT DISCHARGE DIET 1 07/28/2024 Nursing Count Last Ordered Date First Orde red Date DISCHARGE ACTIVITY 2 07/28/2024 DISCHARGE CALL PROVIDER 3 07/28/2024 DISCHARGE INSTRUCTIONS 1 07/28/2024 FOLLOW UP WITH ESTABLISHED PROVIDER 2 07/28 OTHER FOLLOW UP 1 07/28/2024 MEASURE HEIGHT AND LENGTH 1 07/26/2024 WEIGH PATIENT 1 07/26/2024 Consult Count Last Ordered Date First Orde red Date IP CONSULT TO CARDIOLOGY 1 07/26/2024 IP CONSULT TO NEPHROLOGY 1 07/26/2024 IP CONSULT TO NUTRITION SERVICES 1 07/27/19 25 Admission Count Last Ordered Date First Orde red Date ADMIT TO INPATIENT 1 07/26/2024 Discharge Count Last Ordered Date First Orde red Date DISCHARGE PATIENT 1 07/28/2024 documented in this encounter Care Teams Office Runner Relationship Specialty Start Date End Date Naman Hooper MD [address] [facility] [address] [place] [address] PCP - General Internal Medicine 12/07/17 Jorge Jorge DO [address] [place] [id number] Medical Oncologist/Senior Hardware Engineer Hematology and Oncology 12/11/18 Rene Harris MD [address] [place] [address] Consulting Physician Cardiology 02/13/24 Emiliano Low DO [address] [facility] 1 [place] [address] Consulting Physician Nephrology 07/28/24 documented as of this encounter
--- OUTSIDE RECORDS SUMMARY | 2024-07-29 09:06 | XMS_ITS | Encounter Summary ---
Author Organization [facility] [employer] [facility] Address [address] [place] [address] Care Team Providers Care Paste Mixer Liquid Name Role Phone Shay Hooper MD Primary Care Provider Reason for Visit * Reason Comments Med Refill Encounter Details Date Type Department Care Team (Late Contact Info) Description 07/28/2024 Refill [facility] Oncology and Hematology - [place] [address] [place] [address] Tommy Cassidy MD [address] [place] [phone] Social History Tobacco Use Types Packs/Day Years [...] Department Care Team (Late Contact Info) Description 08/05/2024 9:45 AM CDT Office Visit [facility] Oncology [facility]ology - [place] [address] [place] [address] Tommy Cassidy MD [address] [place] [address] documented as of this encounter Visit Diagnoses Not on filedocumented in this encounter Care Teams Paste Mixer Liquid Relationship Specialty Start Date End Date Shay Hooper MD PCP - General Internal Medicine 01/01/23 documented as of this encounter
--- OUTSIDE RECORDS SUMMARY | 2024-07-29 09:06 | XMS_ITS | Encounter Summary ---
Author Organization [facility] [employer] [facility] Address [address] [place] [address] Care Team Providers Care Warehouse Worker 2Nd Shift Name Role Phone Shay Hooper MD Primary Care Provider Encounter Details Date Type Department Care Team (Late st Contact Info) Description 07/28/2024 Orders Only [facility] Oncology and Hematology [facility] [address] [place] [address] Tommy Cassidy MD [address] [place] [phone] Benign hypertension Social History Tobacco Use [...] Description 08/05/2024 9:45 AM CDT Office Visit [facility] Oncology and Hematology [facility] [address] [place] [address] Tommy Cassidy MD [address] [place] [address] documented as of this encounter Visit Diagnoses Diagnosis Benign hypertension Essential hypertension, benign documented in this encounter Care Teams Warehouse Worker 2Nd Shift Relationship Specialty Start Date End Date Shay Hooper MD PCP - General Internal Medicine 01/01/23 documented as of this encounter
--- OUTSIDE RECORDS SUMMARY | 2024-07-29 09:06 | XMS_ITS | Encounter Summary ---
Author Organization [facility] [employer] [facility] Address [address] [place] [address] Care Team Providers Care Security Assurance Specialist Name Role Phone Shay Hooper MD Primary Care Provider Encounter Details Date Type Department Care Team (Late Contact Info) Description 07/23/[address] [facility] Oncology and Hematology - [place] [address] [place] [address] Tommy Cassidy MD [address] [place] [phone] Social History Tobacco Use Types Packs/Day [...] Description 08/05/2024 9:45 AM CDT Office Visit [facility] Oncology and Hematology - [place] [address] [place] [address] Tommy Cassidy MD [address] [place] [address] documented as of this encounter Procedures Procedure Name Priority Date/Time Associated Diagnosis Comments CBC WITH DIFFERENTIAL Routine 07/23/2024 4:19 PM CDT documented in this encounter Results * CBC WITH DIFFERENTIAL (07/23/2024 4:19 PM CDT) Blood us Tommy Cassidy MD HEMATOLOGY ORDERABLES Final Res ult documented in this encounter Visit Diagnoses Not on filedocumented in this encounter Care Teams Security Assurance Specialist Relationship Specialty Start Date End Date Shay Hooper MD PCP - General Internal Medicine 01/01/23 documented as of this encounter
--- OUTSIDE RECORDS SUMMARY | 2024-07-29 09:06 | XMS_ITS | Patient Health Record ---
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
--- OUTSIDE RECORDS SUMMARY | 2024-07-29 09:06 | XMS_ITS | Data Portability ---
Author Organization [place] [facility], Main Office Address [address] [place] [address] Care Team Providers Care Wood Crafter Name Role Phone ALFREDO FLETCHER Park Guide NETO HARRIS Vocational Horticulture Instructor MARSHAL HOOPER Primary Care Provider ROSA MARIA CASSIDY Hematology/Oncology GARRETT KEARNS General Surgeon [phone] EMILIANO LOW Shovel Oiler Assessment Encounter Date Assessment Date Assessment LastModified by Organization Details LastModified Time 09/25/2023 09/25/2023 status post excision lesion right [...] Cr 1.40, GFR 51 TSH: WNL LIPIDS: WN A1C 5.7 04/25/2022: CMP: BUN 23, Cr 1.50, GFR 47 Lipids: [facility] TSH/FT4: WNL VIT D [facility] 09/13/2022: A1C 5.9 MCV 97.4, PLT 116 Gluc 123, BUN 23, Cr 1.48, GFR 47 Urine micro alb 26.7 04/25/2022: CMP: BUN 23, Cr 1.50, GFR 47 Lipids: WN TSH/FT4: WNL VIT D [facility] 04/26/2022: PSA 1.0 09/13/2022: A1C 5.9 [...] 47 Lipids: WNL TSH/FT4: WNL VIT D WN 04/26/2022: PSA 1.0 09/13/2022: A1C 5.9 MCV [...] from inpatient facility. Not available 04/08/2024 12:53:23 07/10/2024 07/10/2024 05/19/2022: Urine micro alb 57.8 CMP: BUN 21, Cr 1.40, GFR 51 TSH: WNL LIPIDS: WNL A1C 5.7 04/25/2022: CMP: BUN 23, Cr 1.50, GFR 47 Lipids: WNL TSH/FT4: WNL VIT D WN 09/13/2022: A1C 5.9 MCV 97.4, PLT 116 [...] 20, Cr 1.80, GFR 38, Gluc 182 07/04/2024: A1C 6.6 BUN 21, Cr 1.87, GFR 36 H/H 8.7/26.2 07/04/2024: Dr Khanh Paredes and lamda lt chains 51.3/37.9 07/09/2024: Dr Cassidy H/H 7.9/24 45 minutes spent with the patient and his Ny, multiple issues discussed including his profound anemia and also his labs Medication list updated and reviewed with him and his rossy Not available 07/10/2024 19:11:32 Plan of Treatment Reminders Order Date Submit Date Provider Last Modified By Organization Details Last Modified Time Details Appointments Any 15 2024 02:15P Khadijah feliz MD Not available Not available Not available Lab CBC w/ auto diff 2024 025 [facility] (Lab), [address] [place], [address], 07/16/2024 16:00:24 CMP, serum or plasma 2024 025 [facility] (Lab), [address] [place], [address], 07/25/2024 13:51:36 lipid panel, serum 2024 025 [facility] (Lab), [address] [place], [address], 07/10/2024 17:02:42 TSH, serum or plasma 2024 025 [facility] (Lab), [address] [place], [address], 07/10/2024 17:02:42 T4, free, serum 2024 025 [facility] (Lab), [address] [place], [address], 07/10/2024 17:02:42 microalbu min, urine 2024 025 [facility] (Lab), [address] [place], [address], 07/10/2024 17:02:42 HbA1c (hemoglob in A1c), blood 2024 025 [facility] (Lab), [address] [place], [address], 07/10/2024 17:02:41 vitamin B12 + folate, serum or blood 2024 025 [facility] (Lab), [address] [place], [address], 07/10/2024 17:02:42 CBC w/ auto diff 2024 025 [facility] (Lab), [address] [place], [address], 04/10/2024 13:14:18 CMP, serum or plasma 2024 025 [facility] (Lab), [address] [place], [address], 04/10/2024 13:14:17 lipid panel, serum 2024 025 [facility] (Lab), [address] [place], [address], 07/04/2024 13:53:49 TSH, serum or plasma 2024 025 [facility] (Lab), [address] [place], [address], 07/04/2024 14:27:11 T4, free, serum 2024 025 [facility] (Lab), [address] [place], [address], 07/04/2024 14:11:17 microalbu min, urine [address] (Lab), [address] [place], [address], 04/09/2024 10:46:08 HbA1c (hemoglob in A1c), blood 2024 025 [facility] (Lab), [address] [place], [address], 05/16/2024 11:34:22 vitamin B12 + folate, serum or blood [address] (Lab), [address] [place], [address], 04/09/2024 10:46:09 CBC w/ auto diff 2024 025 [facility] (Lab), [address] [place], [address], 03/21/2024 14:42:13 CMP, serum or plasma 2024 025 [facility] (Lab), [address] [place], [address], 03/13/2024 16:53:29 lipid panel, serum 2024 025 [facility] (Lab), [address] [place], [address], 03/13/2024 17:40:45 TSH, serum or plasma 2024 025 [facility] (Lab), [address] [place], [address], 03/13/2024 17:40:45 T4, free, serum 2024 025 [facility] (Lab), [address] [place], [address], 03/13/2024 17:40:45 microalbu min, urine 2024 025 [facility] (Lab), [address] [place], [address], 03/13/2024 17:40:45 HbA1c (hemoglob in A1c), blood 2024 025 [facility] (Lab), [address] [place], [address], 03/13/2024 17:40:45 vitamin B12 + folate, serum or blood 2024 025 [facility] (Lab), [address] [place], [address], 03/13/2024 17:40:45 CBC w/ auto diff 2023 024 [facility] (Lab), [address] [place], [address], 12/20/2023 15:49:47 CMP, serum or plasma 2023 024 [facility] (Lab), [address] [place], [address], 12/20/2023 15:49:47 lipid panel, serum [address] (Lab), [address] [place], [address], 05/21/2024 08:36:14 TSH, serum or plasma [address] (Lab), [address] [place], [address], 05/21/2024 08:36:14 T4, free, serum [address] (Lab), [address] [place], [address], 05/21/2024 08:36:14 microalbu min, urine [address] (Lab), [address] [place], [address], 05/21/2024 08:36:14 HbA1c (hemoglob in A1c), blood [address] (Lab), [address] [place], [address], 05/21/2024 08:36:14 vitamin B12 + folate, serum or blood [address] (Lab), [address] [place], [address], 05/21/2024 08:36:14 Referral nephrolog ist referral - Please call patient to schedule an appointme nt. Thank you. 2024 025 [place], [address], [facility] [[email or web address]] [address], [place], [address], 07/11/2024 10:32:12 podiatris t referral - Please call patient to schedule an appointme nt. Thank you. 2024 025 BRENDA López Powell DPM, [address] [facility], [facility] [[email or web address]] [address], [place], [address], 07/11/2024 10:07:20 endocrino logy referral - Please call patient to schedule an appointme nt. Thank you. 2024 025 [place], [address], [place], [address], 07/11/2024 10:49:09 physical therapist referral - Please call patient to schedule an appointme nt. Thank you. 2024 025 [facility], [address], [place], [address], 07/11/2024 10:37:37 nephrolog ist referral - Please call patient to schedule an appointme nt. Thank you. 2024 025 [email or web address] [place], [address] , [facility] [[email or web address]] [address], [place], [address], 05/27/2024 08:44:48 podiatris t referral - Please call patient to schedule an appointme nt. Thank you. 2024 025 [email or web address] Powell DPM, [address] [facility], [facility] [[email or web address]] [address], [place], [address], 05/27/2024 08:45:17 endocrino logy referral - Please call patient to schedule an appointme nt. Thank you. 2024 025 [email or web address], [address], [place], [address], 05/27/2024 08:45:36 physical therapist referral - Please call patient to schedule an appointme nt. Thank you. [email or web address] [place] [address] Physical Therapy, [address], [place], [address], 05/27/2024 08:18:18 nephrolog ist referral 2024 025 [email or web address] [place], [address], [address], [place], [address], 03/17/2024 09:19:19 podiatris t referral - Please call patient to schedule. 2024 025 [email or web address] López Powell DPM, [address], [address], [place], [address], 03/17/2024 09:19:54 cardiolog ist referral 2024 025 [place], [address], [address], [place], [address], 03/17/2024 09:13:42 physical therapist referral - Please call patient to schedule 2024 025 [email or web address] [facility], [address], [place], [address], 04/29/2024 14:15:13 nephrolog ist referral 2023 024 [email or web address] [place], [address], [address], [place], [address], 11/15/2023 17:05:44 podiatris t referral - Please call patient to schedule. 2023 024 [email or web address] López Powell DPM, [address], [address], [place], [address], 12/20/2023 09:07:21 cardiolog ist referral 2023 024 [email or web address], [address], [address], [address], 11/20/2023 17:20:49 physical therapist referral - Please call patient to schedule 2023 024 [email or web address] [facility] Elvie Russell Physical [facility], [address], [place], [address], 03/17/2024 09:16:43 Procedures upper endoscopy procedure (EGD) (PROC) - Please call patient to schedule an appointme nt. Thank you. 2024 025 [email or web address] Mays MD, [address], [address], [place], [address], 07/11/2024 10:10:23 upper endoscopy procedure (EGD) (PROC) - Please call patient to schedule an appointme nt. Thank you. 2024 025 [email or web address] Mays MD, [address], [address], [place], [address], 05/27/2024 08:49:36 upper endoscopy procedure (EGD) (PROC) - Please call patient to schedule. 2024 025 [email or web address] Mays MD, [address], [address], [place], [address], 06/30/2024 08:20:51 upper endoscopy procedure (EGD) (PROC) - Please call patient to schedule. 2023 024 Madiha Mays MD, [address], [address], [place], [address], 12/20/2023 09:07:01 Surgeries None recorded. Imaging None recorded. Medication Orders albuterol sulfate HFA 90 mcg/actua tion aerosol inhaler 2024 025 [facility], [address] [facility], [place], [address], 07/10/2024 14:58:37 zolpidem 10 mg tablet 2024 025 [facility]/Pharmacy #[id number], [address], [place], [address], 04/08/2024 13:07:52 zolpidem 10 mg tablet [email or web address] [place] [address] Pharmacy [address], [address] [place], [address], 11/15/2023 14:47:06 zolpidem 10 mg tablet 2023 024 [facility]/Pharmacy #[id number], [address] [place], [address], 11/15/2023 14:48:18 Patient TargetsNo targets recorded. Patient Instructions Encounter Date Encounter Id Patient Instructions Last Modified By Organization Details Last Modified Time 11/15/2023 [id number] dementia rating scale-2* Not available 11/15/2023 14:46:57 alcohol misuse* Not availa ble 11/15/2023 14:46:56 depression screening* Not available 11/15/2023 14:46:55 multi-dimensiona l health assessment questionnaire* Not available 11/15/2023 14:46:56 advance care planning: care instructions Not available 11/15/2023 14:46:50 advance directiv es: care instructions Not available 11/15/2023 14:46:50 [place] Advance Directives Not available 11/15/2023 14:46:50 Personalized [...] cessation handouts Alcohol Misuse Screening: Negative Weight: Overweight try to lose 10% of your body weight Physical activity: Need more exercise/physical activity minimum of 10-20 minutes of activity that causes mild breathlessness/day Nutrition: Average Refer to attached handout Heart-Healthy Diet: After Your Visit Fall Risk (screened today): High Refer to attached handout Preventing Falls: After your Visit Vaccines Pneumococcal: Recommended today Influenza: Your next one in the fall of this year Chronic Disease Risks Stroke: High Risk Active diagnosis, Continue current treatment plan Heart Attack: Intermediate Risk I have no recommendations Act kristina diagnosis, Continue current treatment plan My recommendation would be to make an appointment for further testing Follow Heart Healthy Diet. Clogging of the Arteries: Intermediate Risk I have no recommendations Act kristina diagnosis, Continue current treatment plan My recommendation would be to make an appointment for further testing Follow Heart Healthy Diet. Diabetes: High Risk Active diagnosis, Continue current treatment plan Secondary Prevention/Interven tion (detects treatable diseases before they may cause symptoms, disability, or ) Prostate Cancer Screening: No PSA screening necessary your next digital rectal exam in: No digital rectal exam screening necessary Urology manages. Colon Cancer Screening: Colonoscopy Date Screening Last Performed:2016 Eye Disease Screening: Recommended today Dementia Risk: Intermediate I have no recommendations Depression Screening: Negative Not available 11/14/2023 16:48:23 04/08/2024 [id number] Thank you for yo ur visit to [...] Not available 04/08/2024 12:19:47 Homebound Status : Required Home Health Services: Durable Medical Equipment needed: Billing Guidelines CPT code 46055- Transitional Care Management services with moderate medical decision complexity (dtra-so-tsbd visit within 14 days of discharge). CPT code 04591- Transitional Care Management services with high medical decision complexity (hgns-ly-yvnm visit within 7 days of discharge). carlos Not available 04/08/2024 12:19:47 Reason for Referral Shovel Oiler Referral for Ch ronic kidney disease Referring Physician: Radha Brunson, Encounter Date: 11/15/2023 Filtration Operator Referral for Type 2 diabetes mellitus without complication Please call patient to schedule. Referring Physician: Radha Brunson, Encounter Date: 11/15/2023 Physical Therapist Referral for Abnormal gait due to impairment of balance Please call patient to schedule Referring Physician: Rahda Brunson, Encounter Date: 11/15/2023 Vocational Horticulture Instructor Referral for He art murmur Referring Physician: Radha Brunson, Encounter Date: 11/15/2023 Shovel Oiler Referral for Ch ronic kidney disease Referring Physician: Radha Brunson, Encounter Date: 03/13/2024 Filtration Operator Referral for Type 2 diabetes mellitus without complication Please call patient to schedule. Referring Physician: Radha Brunson, Encounter Date: 03/13/2024 Physical Therapist Referral for Abnormal gait due to impairment of balance Please call patient to schedule Referring Physician: Radha Brunson, Encounter Date: 03/13/2024 Vocational Horticulture Instructor Referral for He art murmur Referring Physician: Radha Brunson, Encounter Date: 03/13/2024 Shovel Oiler Referral for Ch ronic kidney disease Please call patient to schedule an appointment. Thank you. Referring Physician: Radha Brunson, Encounter Date: 04/08/2024 Filtration Operator Referral for Type 2 diabetes mellitus without complication Please call patient to schedule an appointment. Thank you. Referring Physician: Radha Brunson, Encounter Date: 04/08/2024 Physical Therapist Referral for Abnormal gait due to impairment of balance Please call patient to schedule an appointment. Thank you. Referring Physician: Marshal Hooper Internal Medicine, Encounter Date: 04/08/2024 Endocrinology Referral for T ype 2 diabetes mellitus without complication Please call patient to schedule an appointment. Thank you. Referring Physician: Marshal Hooper Internal Medicine, Encounter Date: 04/08/2024 Shovel Oiler Referral for Ch ronic kidney disease Please call patient to schedule an appointment. Thank you. Referring Physician: Marshal Hooper Internal Medicine, Encounter Date: 07/10/2024 Filtration Operator Referral for Type 2 diabetes mellitus without complication Please call patient to schedule an appointment. Thank you. Referring Physician: Marshal Hooper Internal Medicine, Encounter Date: 07/10/2024 Physical Therapist Referral for Abnormal gait due to impairment of balance Please call patient to schedule an appointment. Thank you. Referring Physician: Marshal Hooper Internal Medicine, Encounter Date: 07/10/2024 Endocrinology Referral for T ype 2 diabetes mellitus without complication Please call patient to schedule an appointment. Thank you. Referring Physician: Marshal Hooper Internal Medicine, Encounter Date: 07/10/2024 Results Created Date Observation Date Name Description Value Unit Range Abnormal Flag Note LastModifiedBy Organization Detail LastModifiedTime 09/21/1909/20/2023 CT, abdom en, w/ contr ast No observ ation record ed. [email or web address] [place], [place] [address] [facility] [address], [address], 01/03/2024 09:22:04 09/24/19 24 09/24/2023 LDCT, chest , for lung cance r scree hemal No observ ation record ed. [address] [place], [address], 09/24/2023 14:39:55 09/24/19 24 09/24/2023 LDCT, chest , for lung cance r scree hemal No observ ation record ed. [address] ([employer]) [address] [facility], [place], [address], 01/03/2024 09:22:24 11/19/19 24 11/16/2023 trans -thor acic echoc ardio gram (TTE) (PROC ) No observ ation record ed. [email or web address] [facility] [address], [place], [address], 11/19/2023 12:20:42 11/19/19 24 11/16/2023 imagi ng/di agnos tic resul t No observ ation record ed. [address] [facility] [address], [place], [address], 01/07/2024 10:26:58 12/24/19 24 12/24/2023 CT, abdom en, w/ contr ast No observ ation record ed. [address] [facility], [place], [address], 01/10/2024 10:01:50 01/18/20 24 01/18/2024 XR, chest No observ ation record ed. [address], [place], [address], 05/01/2024 14:01:46 01/18/20 24 01/18/2024 imagi ng/di agnos tic resul t No observ ation record ed. [address], [place], [address], 05/01/2024 14:04:53 01/19/20 24 01/19/2024 imagi ng/di agnos tic resul t No observ ation record ed. [address], [place], [address], 05/01/2024 14:05:40 03/24/19 25 03/24/2024 XR, chest No observ ation record ed. [address] [facility], [place], [address], 05/05/2024 11:08:49 03/24/19 25 03/24/2024 CT, angio gram, chest + abdom en + pelvi s, w/wo contr ast No observ ation record ed. [address] [facility], [place], [address], 05/05/2024 11:45:31 03/27/19 25 03/26/2024 stres s echoc ardio gram No observ ation record ed. [address] [address], [place], [address], 05/05/2024 12:00:43 03/27/19 25 03/26/2024 stres s echoc ardio gram No observ ation record ed. [address] [address], [place], [address], 05/05/2024 12:01:17 04/03/19 25 04/03/2024 CT, abdom en + pelvi s, w/o contr ast No observ ation record ed. [address] [address], [place], [address], 05/05/2024 12:22:13 07/15/19 25 07/14/2024 imagi ng/di agnos tic resul t No observ ation record ed. [email or web address] [facility] [address], [place], [address], 07/14/2024 16:58:17 07/15/19 25 07/14/2024 imagi ng/di agnos tic resul t No observ ation record ed. BRENDA [facility] [address] [facility] [address], [place], [address], 07/14/2024 13:35:59 07/15/19 25 07/14/2024 imagi ng/di agnos tic resul t No observ ation record ed. [email or web address] [facility] [address] , [place], [address], 07/14/2024 16:58:33 07/15/19 25 07/14/2024 imagi ng/di agnos tic resul t No observ ation record ed. [facility] [address], [place], [address], 07/14/2024 13:39:37 07/23/19 25 07/22/2024 myoca rdial perfu sampson study w/ eject ion fract ion (PROC ) No observ ation record ed. [email or web address] [facility] [address] , [place], [address], 07/22/2024 15:53:31 07/23/19 25 07/22/2024 imagi ng/di agnos tic resul t No observ ation record ed. [facility] [address] , [place], [address], 07/22/2024 14:31:22 07/26/19 25 07/25/2024 imagi ng/di agnos tic resul t No observ ation record ed. [facility] [address] [place], [address], 07/25/2024 21:22:46 Result Notes None recorded. Problems Name Problem SNOMED Code Status Onset Date Resolution Date Notes Provider Name and Address Organization Details Recorded Time Osteonec rosis of head of femur 582682070 Active 2022 Marshal hays MD [address] [facility], [facility] [[email or web address]] [address], [place], [address] , [place] [facility] [employer] [facility] [email or web address] 3 18:35:50 Localize d, primary osteoart hritis of the hand 943168606 Active 2022 Mynor Judge MD [address] [facility], [facility] [[email or web address]] [address], [place], [address] , [facility] 3 16:08:51 Moderate chronic obstruct kristina pulmonar y disease 677272455 Active 2022 Alfredo Fletcher MD [address], [place], [address] , [facility] 3 16:27:34 Posterio r rhinorrh ea 09058927 Active 2022 Alfredo Fletcher MD [address], [address], [place], [address] , [facility] 3 14:49:21 Cirrhosi s of liver 29000283 Active Not Available [facility] 3 02:58:47 Cerebrov ascular accident 343956180 Active 2001 on disabilt iy for his stroke from about 12 years ago Not Available [facility] 3 02:58:47 Retinal artery occlusio n 089825475 Active 2020 Not Available [facility] 3 02:58:47 Gastroes ophageal reflux disease without esophagi tis 016521393 Active 2020 Not Available [facility] 3 02:58:47 Osteomye litis of ankle AND/OR foot 36353135 Completed 201809/17/2018 Not Available [facility] 3 02:58:48 Amputate d big toe 032994435 Active 2018 Not Available [facility] 3 02:58:48 Malignan t neoplasm of urinary bladder 575889867 Active 2016 Not Available [facility] 3 02:58:48 Peripher al arterial occlusiv e disease 794414094 Active 2018 Not Available [facility] 3 02:58:48 Diabetic peripher al neuropat hy 875622562 Active 2018 Not Available [facility] 3 02:58:48 Hyperlip idemia 51351345 Active 2020 Not Available [facility] 3 02:58:49 [facility] sampson 72026566 Active Not Available [facility] 3 02:58:49 Chronic kidney disease 921115489 Active 2020 Not Available [facility] 3 02:58:49 Smoker 35279334 Active 2020 Not Available [facility] 3 02:58:49 Thrombot ic thromboc ytopenic purpura 89206307 Active 2020 Not Available [facility] 3 02:58:49 Chronic sinusiti s 67367010 Active 2022 Lalito Acuña MD [address], [place], [address] , [facility] 3 16:56:16 Serum alpha-fe toprotei n level above referenc e range 845034500 Active 2022 [facility] 3 10:07:32 Liver enzymes level above referenc e range 315632494 Active 2023 Marshal hays MD [address], [address], [place], [address] , [facility] 4 15:50:50 Heart murmur 57969196 Active 2023 Marshal hays MD [address], [address], [place], [address] , [facility] 4 15:50:50 Neuropat hy 934103816 Active 2023 Marshal hays MD [address], [address], [place], [address] , [facility] 4 15:50:50 Anemia 349877780 Active 2023 Marshal hays MD [address], [address], [place], [address] , [facility] 4 15:50:50 Serum vitamin B12 below referenc e range 242586304 Active 2023 Marshal hays MD [address], [place], [address] , [employer] [facility] 4 15:50:51 Abnormal gait due to impairme nt of balance 827162483 Active 2023 Marshal hays MD [address], [place], [address] , [facility] [address] [facility] 4 15:50:51 Skin tag 215042326 Active 2023 Garrett lomeli MD [address], [place], [address] , [facility] [address] [facility] 4 13:28:53 Insomnia 024803830 Active 2023 Marshal hays MD [address], [place], [address] , [employer] [facility] 5 11:47:54 Type 2 diabetes mellitus without complica tion 453397182 Active 2023 Marshal hays MD [address], [place], [address] , [employer] [facility] 4 18:52:08 Liver mass 420249991 Active 2023 Marshal hays MD [address], [place], [address] , [employer] [facility] 4 18:52:08 Pain in right hand 85067343166 9109 Active 2023 Marshal hays MD [address], [place], [address] , [facility] [address] [facility] 4 18:52:08 Skin lesion 41123009 Active 2023 Marshal hays MD [address], [place], [address] , [facility] 4 18:52:08 Upper respirat ory infectio n 66694147 Active 2023 Marshal hays MD [address], [place], [address] , [facility] 4 18:52:08 Hemorrho ids 31479558 Active 2023 Amador Webster, INSTITUTIONAL RESEARCH COORDINATOR null, [facility] 4 10:23:03 Liver cell carcinom a 443804125 Active 2024 Marshal hays MD [address], [place], [address] , [facility] 5 14:24:13 Chronic rhinitis 03283766 Active 2024 Marshal hays MD [address], [place], [address] , [facility] 5 14:54:35 Notes:Medical History: Left CVA without residual hemiparesis 2005 Syncope 2022 Right retinal artery occlusion Bilateral tinnitus Left deviated nasal septum Rhinitis with multiple environmental allergies Chronic sinusitis Eosinophils 80/uL Bilateral gynecomastia Asbestos exposure 4767-4593 Nicotine use Mod COPD Left mid lung calcified granuloma Obesity T2DM with neuropathy Hyperlipidemia Hypertension EF 60% Mild LBBB HUY Hepatic steatosis/cirrhosis Portal venous hypertension Cholelithiasis Diverticulosis Umbilical/Bilateral inguinal hernias Left adrenal nodule CKD TTP Anemia Iron deficiency Vit D deficiency Cervicothoracic DDD Thoracic spondylosis Bilateral femoral head avascular necrosis Procedure History: Right knee surgeries 1993, 1994 Appendectomy 1996 Left cerebellar surgery for aneurysm 2006 Right carotid endarterectomy [address] Daniels 2017 Bilateral cataract extractions with IOL 2019 Sinus surgery 2022 Right chest port placement Problem Notes None recorded. Procedures Surgical History Date Name Laterality Status Provider Name and Address Organization Details Recorded Time 04/08/19 Transitional_Care_ Management completed Marshal Hooper MD [address], [place], [address], [facility] 04/08/2024 14:02:49 11/15/19 24 Medicare Wellness CPT Code, subsequent completed Zac Sanders LPN [facility] 11/14/2023 16:32:35 11/15/19 24 Advanced Care Planning completed Zac Sanders LPN [facility] [place] [facility] 11/15/2023 14:27:09 09/06/19 24 Blank Procedure completed Garrett hernandez MD [address] [place] [address], [address], [facility] 09/06/2023 11:55:11 09/20/19 23 Medicare Wellness CPT Code, subsequent completed Vivian Jacome RN [facility] 09/19/2022 14:17:19 08/08/19 19 carotid endarterectomy completed Not Available [facility] 04/26/2022 02:51:44 06/03/19 17 Treatment of bladder lesion completed Not Available [facility] 04/26/2022 02:51:44 07/01/19 16 Excisions - Specify completed Not Available [facility] 04/26/2022 02:51:44 07/20/19 13 Colonoscopy completed Not Available [facility] 04/26/2022 02:51:44 Eye Surgery completed Not Available [facility] 04/26/2022 02:51:44 Toe completed Not Available [facility] 04/26/2022 02:51:44 Knee Surgery completed Not Available [facility] 04/26/2022 02:51:44 Appendectomy completed Not Available [facility] 04/26/2022 02:51:44 Brain Surgery completed Not Available [facility] 04/26/2022 02:51:44 nasal endoscopy with maxillary antrostomy completed MARIANA Turner Patito [facility] 10/10/2022 08:49:43 surgical procedure on frontal sinus completed MARIANA Turner Patito [facility] 10/10/2022 08:50:23 ethmoid sinusectomy completed MARIANA Turner [facility] 10/10/2022 08:50:33 endoscopic sphenoidotomy completed MARIANA Turner Patito [facility] 10/10/2022 08:50:47 Cardiac Stent Placement completed EUFEMIA Padron [facility] 03/13/2024 14:31:56 Angioplasty completed EUFEMIA Padron [facility] 03/13/2024 14:32:07 Prostate completed Yeni Chavez MA [facility] 07/10/2024 14:15:57 Imaging Results None recorded. Procedure Notes None recorded. Medical Equipment None Reported. Allergies Allergen ID Allergen Name Allergen Category Reaction Reaction Severity Criticality Documentation Date Start Date Code Code System Note Provider Name and Address Organization Details Recorded Time 5276 Product containin g penicilli n (product) medicatio n Not available Not available Not available 04/26/2022 25074 8001 SNOMED Not Available [facility] 3 03:08:35 5277 doxycycli ne Not available Not available Not available Not available 04/26/2022 3640 RxNorm Not Available [facility] 3 03:08:35 5278 codeine medicatio n abdominal pain Not available Not available 04/26/2022 2670 RxNorm Not Available [facility] 3 03:08:35 37452 torsemide medicatio n rash moderate low 06/02/2022 68373 RxNorm EUFEMIA Tyson [facility] 3 10:43:49 Medications Name Sig Start Date [...] TAKE 10 ML BY MOUTH ONCE DAILY active Not Available Not Available No t Available fluticaso ne 250 mcg-salme terol 50 [...] mg-acetam inophen 325 mg tablet TAKE 1 TO 2 TABLETS BY MOUTH EVERY 6 HOURS NEEDED FOR PAIN 07/10 completed Not Available Not Available Not Available [...] completed Not Available Not Available Not Available midodrine 5 mg tablet TAKE 1 TABLET BY MOUTH THREE TIMES DAILY active Not Available Not Available No t Available Mobic 7.5 mg tablet Take 1 [...] Not Available clopidogr el 75 mg tablet Take 1 tablet every day [...] oxazole 800 mg-trimet hoprim 160 mg tablet TAKE 1 TABLET BY MOUTH TWICE DAILY active Not Available Not Available No t Available omeprazol e 40 mg capsule,d elayed release Take 1 capsule twice a day by oral route as directed for 30 days. active Not Available Not Available No t Available aspirin 81 mg tablet,de layed release TAKE 1 TABLET BY MOUTH IN THE MORNING 07/10 completed Not Available Not Available Not Available [...] AMOUNT TO PORT ACCESS AREA ONCE WEEKLY active Not Available Not Available No t Available ketorolac 10 mg tablet TAKE 1 TABLET PO EVERY 6 HOURS active Not Available Not Available No t Available nadolol 20 mg tablet TAKE 1 TABLET BY MOUTH ONCE DAILY 2024 active Not Available Not Available Not Avai lable oxycodone -acetamin ophen 5 mg-325 mg tablet [...] n for injection IN OFFICE 07/05 completed [facility]: [phone] 4-20 Not Available Not Available Not Available benzonata [...] completed Not Available Not Available Not Available hyoscyami ne sulfate 0.125 mg tablet TAKE 1 TABLET BY MOUTH EVERY 6 HOURS NEEDED FOR BLADDER SPASMS active Not Available Not Available No t Available ferrous sulfate 325 mg (65 mg iron) tablet Take 1 tablet every day by oral route. active Not Available Not Available No t Available warfarin 5 mg tablet TAKE 1 [...] TOTAL OF 3 DOSES IN 15 MINUTES NOW active Not Available Not Available No t [...] e 137 mcg (0.1 %) nasal spray [place] 2 sprays twice a day by intranas [...] Available Not Available zolpidem 10 mg tablet TAKE 1 TABLET BY MOUTH EVERY DAY active Not Available Not Available No t Available methylpre dnisolone 4 mg tablets in a dose pack TAKE BY MOUTH DIRECTED ON INSIDE OF PACKAGE 07/03 completed Not Available Not Available Not Available albuterol sulfate HFA 90 mcg/actua tion aerosol inhaler INHALE 1 PUFF BY MOUTH EVERY 4 HOURS NEEDED active Not Available Not Available No t Available ipratropi um bromide 42 mcg (0.06 %) nasal spray [place] 1 spray 4 times a day by [...] 2 SPRAY(S) IN EACH NOSTRIL ONCE DAILY active Not Available Not Available No t Available lisinopri l 2.5 mg tablet TK [...] TAKE 1 CAPSULE BY MOUTH TWICE DAILY 07/10 completed Not Available Not Available Not Available solifenac in 5 mg tablet TAKE 1 TABLET BY MOUTH ONCE DAILY active Not Available Not Available No t Available pregabali n 50 mg capsule TAKE 1 CAPSULE BY MOUTH THREE TIMES DAILY , AVOID ALCOHOL, DRIVING OR WITH SEDATING MEDICATI ONS active Not Available Not Available No t Available pregabali n 100 mg capsule TAKE 1 CAPSULE BY MOUTH ONCE DAILY IN THE MORNING FOR 30 DAYS 01/27 completed Not Available Not Available Not Available acetamino phen 500mg PRN 07/10 completed Not Available Not Available Not Available [...] %) injection solution IN OFFICE 07/05 completed [facility] 18348-62 4 Not Available Not Available Not Available rivaroxab [...] Available Not Available Not Available ReliOn Pen [place] 32 gauge x 5/32 once daily uud 05/30 completed Not Available Not Available Not Available Levemir FlexTouch U-100 Insulin 100 unit/mL (3 mL) subcutane ous pen INJECT 50 UNITS SUBCUTAN EOUSLY ONCE DAILY 11/08 completed Not Available Not Available Not Available Tocaleb SoloStar U-300 Insulin 300 unit/mL (1.5 mL) [...] No t Available Accu-Chek Guide test strips USE 1 STRIP TO CHECK GLUCOSE 4 TIMES DAILY BEFORE MEALS active Not Available Not Available No t Available Accu-Chek Guide Glucose Meter Use to check [...] completed Not Available Not Available Not Available Lyjacky PollockikPen U-100 Insulin 100 unit/mL subcutane ous Inject 15 units 3 times a day by subcutan eous route before meals for 90 days. active Not Available Not Available No t Available FreeStyle Padmini 3 Plus Sensor device CHANGE SENSOR EVERY 15 DAYS active Not Available Not Available No t Available Vitals Date Recorded Body height Body mass index (BMI) Body weight Body temperature Heart rate Systolic blood pressure Diastolic blood pressure Provider Name and Address Organization Details Last Updated DateTime 5 177.8 cm 26.4 kg/m2 31927 g 97.6 [degF] 60 /min 100 mm[Hg] 50 mm[Hg] EUFEMIA Padron [place] - S [place] [employer] 5 14:31:24 Date Recorded Body height Body mass index (BMI) Body weight Body temperature Heart rate Oxygen saturation Oxygen saturation in Arterial blood by Pulse oximetry Systolic blood pressure Diastolic blood pressure Provider Name and Address Organization Details Last Updated DateTime 5 177.8 cm 25.5 kg/m2 13977.4 4 g 97.6 [degF] 103 /min 96 % 96 % 130 mm[Hg] 58 mm[Hg] Yeni Chavez MA [facility] [employer] [facility] 5 12:23:09 Date Recorded Body height Body mass index (BMI) Body weight Heart rate Oxygen saturation Oxygen saturation in Arterial blood by Pulse oximetry Body temperature Systolic blood pressure Diastolic blood pressure Provider Name and Address Organization Details Last Updated DateTime 5 177.8 cm 24.8 kg/m2 43100.6 8 g 89 /min 98 % 98 % 97.5 [degF] 98 mm[Hg] 40 mm[Hg] Yeni Chavez MA [facility] [employer] [facility] 5 14:09:39 Date Recorded Body height Body mass index (BMI) Body weight Body temperature Heart rate Respiratory rate Oxygen saturation Oxygen saturation in Arterial blood by Pulse oximetry Systolic blood pressure Diastolic blood pressure Provider Name and Address Organization Details Last Updated DateTime 4 177.8 cm 29 kg/m2 56966.6 6 g 98.6 [degF] 72 /min 12 /min 98 % 98 % 122 mm[Hg] 72 mm[Hg] Brooklyn Myers MA [facility] [employer] [facility] 4 10:31:23 Date Recorded Body height Body mass index (BMI) Body weight Body temperature Heart rate Oxygen saturation Oxygen saturation in Arterial blood by Pulse oximetry Systolic blood pressure Diastolic blood pressure Provider Name and Address Organization Details Last Updated DateTime 4 177.8 cm 26.7 kg/m2 69944.1 8 g 97.1 [degF] 71 /min 98 % 98 % 134 mm[Hg] 60 mm[Hg] Viridiana Carlos MA [facility] [employer] [facility] 4 14:23:10 Social History Question Answer Notes LastModified by Organization Details LastModified Time Tobacco Smoking Status Current Every Day Smoker Not Available [facility] 04/26/2022 02:49:19 Do You Have An Advance Directive? No Not Interested In Info Today MIGRATION.0301 [id number] Information not available 04/26/2022 How Many Years Have You Consumed Alcohol? 50 [email or web address] Information not available 11/15/2023 Are You Blind Or Do You Have Difficulty Seeing? No MIGRATION.0301 [id number] Information not available 04/26/2022 Is Blood Transfusion Acceptable In An Emergency? Yes Information not available 11/15/2023 What Is Your Level Of Caffeine Consumption? None MIGRATION.0301 103981 Information not available 04/26/2022 How Much Tobacco Do You Chew? None MIGRATION.0301 513030 Information not available 04/26/2022 In The 14 Days Before Symptom Onset, Have You Had Close Contact With A Laboratory-conf irmed COVID-19 While That Case Was Ill? No MIGRATION.0301 616262 Information not available 04/26/2022 In The 14 Days Before Symptom Onset, Have You Had Close Contact With A Person Who Is Under Investigation For COVID-19 While That Person Was Ill? No MIGRATION.0301 322271 Information not available 04/26/2022 Are You Deaf Or Do You Have Serious Difficulty Hearing? No MIGRATION.0301 [id number] Information not available 04/26/2022 What Type Of Diet Are You Following? REGULAR MIGRATION.0301 [id number] Information not available 04/26/2022 Which Illicit Or Recreational Drugs Have You Used? None MIGRATION.0301 417687 Information not available 04/26/2022 What Is The Highest Grade Or Level Of School You Have Completed Or The Highest Degree You Have Received? HW10191-2 MIGRATION.030 255223 Information not available 04/26/2022 Do You Have An Electrostatic Air Filter? No Information not available 06/05/2022 How Many Days Of Moderate To Strenuous Exercise, Like A Brisk Walk, Did You Do In The Last 7 Days? 0 [email or web address] Information not available 11/15/2023 Have There Been Any Changes To Your Family Or Social Situation? No MIGRATION.0301 [id number] Information not available 04/26/2022 What Is The Fluoride Status Of Your Home? Unknown MIGRATION.0301 984779 Information not available 04/26/2022 Are There Any Guns Present In Your Home? Yes MIGRATION.0301 985762 Information not available 04/26/2022 Do You Have A Humidifier? No Information not available 06/05/2022 Do You Use Insect Repellent Routinely? No MIGRATION.0301 707492 Information not available 04/26/2022 [facility] MIGR[facility].0301 350253 Information not available 04/26/2022 Presence Of Domestic Violence No [email or web address] Information not available 11/15/2023 Guns Present In The Home? Yes [email or web address] Information not available 11/15/2023 Are You Able To Care For Yourself? Yes [email or web address] Information not available 11/15/2023 Are You Blind Or Do Yo Have Difficulty Seeing? No Information not available 11/15/2023 Are You Deaf Or Do You Have Serious Difficulty Hearing? No [email or web address] Information not available 11/15/2023 General Stress Level? Low [email or web address] Information not available 11/15/2023 Live Alone Of With Others? 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 No MIGRATION.[id number] Information not available 04/26/2022 Do You Have Moisture Problems In Your Home? No Information not available 06/05/2022 What Was The Date Of Your Most Recent Tobacco Screening? 07/10/2024 [email or web address] Information not available 07/10/2024 How Many Children Do You Have? 1 [email or web address] Information not available 11/15/2023 Have You Ever Been Counseled For Unhealthy Alcohol Use? No Information not available 11/15/2023 Do You Have Any Pets? Yes Dog Information not available 11/15/2023 Do You Use Protection During Sex? No [email or web address] Information not available 11/15/2023 What Is Your Relationship Status? MIGRATION.0301 337794 Information not available 04/26/2022 Do You Use Your Seat Belt Or Car Seat Routinely? Yes Information not available 11/07/2022 Are You Sexually Active? Yes [email or web address] Information not available 11/15/2023 Do You Have Smoke And Carbon Monoxide Detectors In Your Home? Yes MIGRATION.0301 [id number] Information not available 04/26/2022 At What Age Did You Start Smoking Tobacco? 12 MIGRATION.0301 [id number] Information not available 04/26/2022 Are You Passively Exposed To Smoke? Yes MIGRATION.0301 294892 Information not available 04/26/2022 Are There Any Smokers In Your House? Yes MIGRATION.0301 093302 Information not available 04/26/2022 How Much Tobacco Do You Smoke? 1 PPD 3/4 Pack Information not available 07/20/2022 What Types Of Sporting Activities Do You Participate In? None [email or web address] Information not available 11/15/2023 Do You Use Sunscreen Routinely? No MIGRATION.0301 693122 Information not available 04/26/2022 Has Tobacco Cessation Counseling Been Provided? No [email or web address] Information not available 11/15/2023 How Many Years Have You Smoked Tobacco? 55 [email or web address] Information not available 06/27/2022 Have You Recently Traveled Abroad? No MIGRATION.0301 977742 Information not available 04/26/2022 Do You Have Difficulty Walking Or Climbing Stairs? No MIGRATION.0301 955736 Information not available 04/26/2022 How Many Days In The Past Year Have You Consumed 5 Or More Drinks? 0 Information not available 11/15/2023 Sex: Male Functional Status Question Answer Note LastModified by [email or web address] ion Details LastModified Time Do you or have you ever used smokeless tobacco? Never used smokeless tobacco MIGRATION.649466 1109 Information not available 04/26/2022 Are you currently employed? No [email or web address] Information not available 11/15/2023 Do you have transportation difficulties? No MIGRATION.381765 5296 Information not available 04/26/2022 Are you able to care for yourself? Yes MIGRATION.004782 1967 Information not available 04/26/2022 Do you have difficulty dressing or bathing? No MIGRATION.093057 6112 Information not available 04/26/2022 Do you or have you ever used e-cigarettes or vape? Never used electronic cigarettes MIGRATION.729111 5425 Information not available 04/26/2022 What is your exercise level? None MIGRATION.351978 5226 Information not available 04/26/2022 Do you use any illicit or recreational drugs? No MIGRATION.078568 9521 Information not available 04/26/2022 Do you or have you ever used any other forms of tobacco or nicotine? No MIGRATION.883219 3829 Information not available 04/26/2022 What is your level of alcohol consumption? Occasional MIGRATION.583178 0818 Information not available 04/26/2022 Are you able to walk? YESWOREST MIGRATION.900163 2159 Information not available 04/26/2022 Do you have difficulty doing errands alone? No MIGRATION.490929 4039 Information not available 04/26/2022 What is your occupation? retired MIGRATION.295356 6087 Information not available 04/26/2022 Mental Status Question Answer Note LastModified by Organizat ion Details LastModified Time Do you feel stressed (tense, restless, nervous, or anxious, or unable to sleep at night)? [id number] MIGRATION.45535868 26 Information not available 04/26/2022 Do you have difficulty concentrating, remembering or making decisions? No MIGRATION.05664829 26 Information not available 04/26/2022 Family History Relationship Description Onset Age of this Age Resolved Age Notes LastModified by Organization Details LastModified Time Mother Pneumonia 70 MIGRATION.194 [id number] Not available 04/26/2022 02:51:48 Father Essential hypertension 62 MIGRATION.813 1944323 Not available 04/26/2022 02:51:48 Father Cerebrovascu lar accident MIGRATION.553 [id number] Not available 04/26/2022 02:51:48 Father Blood coagulation disorder [email or web address] Not available 2022 14:46:54 Medical History Condition Response STROKE/TIA Y MYOCARDIAL INFARCTION Y GERD/NAUSEA Y URINARY/BLADDER/KIDNEY PROBLEMS Y USE OF BLOOD THINNERS Y PERIPHERAL VASCULAR DISEASE Y HYPERTENSION Y ANEMIA/BLOOD DISORDER Y INSOMNIA Y HIGH CHOLESTEROL / HYPERLIPIDEMIA Y NEUROLOGICAL PROBLEMS Y ARTHRITIS Y DIABETES, TYPE Y VASCULAR DISEASE Y KIDNEY DISEASE Y CANCER: SPECIFY Y Immunizations Vaccine Type Date Status Note Provider Nam e and Address Organization Details Recorded Time Tdap 02/06/2017 completed Not Available [employer] 04/26/2022 03:08:26 Past Encounters Encounter ID Performer Location Encounter Start Date Encounter Closed Date Diagnosis/Indication Diagnosis SNOMED-CT Code Diagnosis ICD10 Code Diagnosis Note [id number] Marshal hays MD [facility] [address] [facility] [place] [address] 05/20/2020 00:00:00 05/20/2020 16:55:08 [id number] MD CARLITA Garcia IGRATION_ DEFAULT_1 _1 , 05/20/2020 00:00:00 05/20/2020 16:17:59 [id number] MD CARLITA Garcia IGRATION_ DEFAULT_1 _1 , 09/16/2020 00:00:00 09/16/2020 15:23:08 [id number] MD SILVINA [facility] [address] [place] [address] 10/19/2020 00:00:00 10/20/2020 11:54:38 [id number] MD CARLITA Garcia IGRATION_ DEFAULT_1 _1 , 01/13/2021 00:00:00 01/13/2021 15:27:11 [id number] CARLITA Lomas IGRATION_ DEFAULT_1 _1 , 05/12/2021 00:00:00 05/12/2021 15:01:10 [id number] MD SILVINA [facility] [address] [place] [address] 05/26/2021 00:00:00 05/26/2021 14:55:02 [id number] MD SARAH [facility] [address] [place] [address] 11/08/2021 00:00:00 11/08/2021 14:54:21 [id number] MD SARAH [facility] [place] [address] [place] [address] 12/15/2021 00:00:00 12/15/2021 21:42:48 [id number] MD SILVINA [facility] [address] [place] [address] 05/16/2022 13:58:55 05/16/2022 14:33:54 Screening - NAD 152261842 Z13.9 C-scope: 10/16/16: Dr Nilda hernandez next in 10 years Get flu shot declined thisUTD Tdap 02/06/17Ge t COVID 19 vaccine done states that he does not want it as he does not believe in vaccine that was rushed thru', advised to follow CDC guidelines RTC in 4 monthsGet labsER if worsehe did verbalize his understand ing of above Heart murmur 12697623 R0 1.[address] Harris 08/08/2021 Type 2 anish betes mellitus without complication 285521948 E11.[address] Dhillon 06/02/[address] Powell podiatryNe eds to see eye MDGet labs from Dr Dhillon Essential hypertension 75240700 I10 On ASA Off lasixOff losartan 25mg daily On chlorthali done 25mg 1/[address] Low 10/04/2021 On nadolol 20mg dailyGet labsHe does see Dr Low 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.[address] Jorge 10/05/21, next in one yearGet repeat labs Malignant neoplasm of urinary bladder 673315051 C67.9 s/p surgery by Dr Daniels, in 06/[address] Daniels Smoker 43511025 F17.200 Advised to quit LDCT 09/26/2019 CT chest 06/06/2021 : Cirrhosis of the liverGet US AAA Liver enzy mes level above reference range 693096979 R74.[address] Silverio , but now sees Dr Brooks liver 05/17/2021 : cirrhosis, cholelithi asisGet labs Chronic ki dney disease 944886710 N18.9 Dr Low nephrology Neuropathy 891002720 G62 .9 Not on lyrica 50mg tidDoes well Gastroesop hageal reflux disease without esophagitis 350066123 K21.9 On pantaprozo leDoes wellTake as needed Hyperlipidemia 94840207 E78.5 On atorvastat in 20mg dailyNot on vascepaGet labs Insomnia 221460408 G47.0 0 On ambienDoes well 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 Seen by Retina Capron 05/07/18: Dr Coleman, noted to have a Hallenhors t plaqueKeep apt wtih Dr Collado who he now sees Anemia 134546063 D64.9 Is on ironDoes well Osteonecro sis of head of femur 195992372 M87.[address] Barfield 01/15/2020 , no surgery doneDoes well Right uppe r quadrant pain 884509200 R10.11 Did see Dr aWtson 01/15/2020 No surgery doneDoes well Serum brielle min B12 below reference range 589184788 R79.89 Pain in right hand 14270 91635 65816 M79.641 Abnormal g ait due to impairment of balance 157714490 R26.89 Feels that his gait is getting worse, he did have cerebellar surgery 17 years ago and feels that this contribute s to it, will get PT [id number] Mynor Judge MD [facility] [place] [place] [address] [place] [address] 06/27/2022 14:31:29 06/27/2022 15:06:26 Pain of bilateral hands [id number] 2967453 M79.641 M79.642 Localized, primary osteoarthritis of the hand 458615153 M19.049 we discussed different treatment options. Sterile [...] to anti-infla mmatory with appropriat e precaution [id number] Cindy Dhillon MD [facility] [place] [address] [place] [address] 06/02/2022 10:37:36 06/02/2022 11:15:29 Well controlled type 2 diabetes mellitus 986818791 E11.9 A1C of 5.6%- continue tresiba 50 [...] goal range. Chronic ob structive pulmonary disease 34998196 J44.9 refer to pulmonolog y and obtain PFTs - patient chronic smoker- wheezy on examinatio n and has increased expiratory phase. Would benefit from overall pulm evaluation . Dyslipidemia 815155370 E 78.5 Continue statin therapy as LDL [...] he chooses to go outside of the [facility] to obtain labwork he was [...] in his case. He voiced understand ing. [id number] Marshal hays MD [facility] [place] [address] [place] [address] 06/05/2022 14:29:35 06/05/2022 15:06:24 Screening - NAD 167624020 Z13.9 C-scope: 10/16/16: Dr Nilda hernandez next in 10 years Get flu shot declined thisUTD Tdap 02/06/17Ge t COVID 19 vaccine done states that he does not want it as he does not believe in vaccine that was rushed thru', advised to follow CDC guidelines RTC in 4 monthsGet labsER if worsehe did verbalize his understand ing of above Heart murmur 16519986 R0 1.[address] Harris Essential hypertension 61527795 I10 BP much better today 06/05/2022 On ASAOn amlodipine 5mg dailyOn chlorthali done 25mg 1/[address] Low 10/04/2021 On nadolol 20mg daily OK to renew 06/05/2022 Off lasixOff losartan 25mg daily as per Dr Harris 05/30/[address] Low [id number] Alfredo Fletcher MD [facility] [place] [address] 06/05/2022 15:34:48 06/06/2022 08:17:08 Dyspnea on exertion 70463378 R06.09 R05.9 T78.40XS D89.9 Smoker 73896158 F17.218 F17.219 Z87.891 [id number] Alfredo Fletcher MD [facility] [place] [address] 07/04/2022 15:25:42 07/05/2022 08:19:32 Smoker 35295811 F17.218 F17.219 Z87.891 Moderate c hronic obstructive pulmonary disease 659378842 J44.9 [id number] Alfredo Fletcher MD [facility] [address] 07/20/2022 14:00:27 07/21/2022 08:30:46 Smoker 39341766 F17.218 F17.219 Z87.891 Moderate c hronic obstructive pulmonary disease 857992008 J44.9 J44.1 Posterior rhinorrhea 758 56365 R09.82 J01.90 [id number] Lalito Acuña MD [facility] E[facility] [place] [address] [place] [address] 08/24/2022 11:44:23 08/24/2022 16:39:03 Chronic sinusitis 99235947 J32.9 [id number] Lalito Acuña MD [facility] E[facility] [place] Russell [address] [place] [address] 09/14/2022 12:25:09 09/14/2022 12:47:31 Chronic sinusitis 30516372 J32.9 Chronic ma xillary sinusitis 51183479 J32.0 Chronic et hmoidal sinusitis 80868195 J32.2 Chronic fr ontal sinusitis 50809204 J32.1 Chronic sp henoidal sinusitis 96025793 J32.3 [id number] Marshal hays MD [facility] Internal Med [facility] [[email or web address] 15 [address] [facility], [facility] [[email or web address] 15 [place] [address] 09/19/2022 13:55:53 09/19/2022 14:30:51 Screening - NAD 615258830 Z13.9 C-scope: 10/16/16: Dr Nilda hernandez next in 10 years Get flu shot declined thisUTD Tdap 02/06/17Ge t COVID 19 vaccine done states that he does not want it as he does not believe in vaccine that was rushed thru', advised to follow CDC guidelines RTC in 4 monthsGet labsER if worsehe did verbalize his understand ing of above Heart murmur 49359713 R0 1.[address] Harris Essential hypertension 37114107 I10 BP much better today 06/05/2022 On ASAOn amlodipine 5mg dailyOn chlorthali done 25mg 1/[address] Low 10/04/2021 On nadolol 20mg daily OK to renew 06/05/2022 Off lasixOff losartan 25mg daily as per Dr Harris 05/30/2022 Get labsHe does see Dr Low Type 2 anish betes mellitus without complication 031246581 E11.9 On trescibaOn Fiasp Sees Dr Dhillon 06/02/2022 next 11/27/[address] Powell podiatryNe eds to see eye MDGet labs from Dr Dhillon Thrombotic thrombocytopenic purpura 79748447 M31.[address] Jorge 10/05/21, next in one yearGet repeat labs Malignant neoplasm of urinary bladder 553979568 C67.9 s/p surgery by Dr Daniels, in 06/[address] Daniels Smoker 69494134 F17.200 Advised to quit LDCT 09/26/2019 CT chest 06/06/2021 : Cirrhosis of the liverGet AAA Liver enzy mes level above reference range 970455387 R74.[address] Silverio , but now sees Dr Brooks liver 05/17/2021 : cirrhosis, cholelithi asisGet labs Chronic ki dney disease 210274740 N18.9 Dr Low nephrology Neuropathy 758359042 G62 .9 Not on lyrica 50mg tidDoes well Gastroesop hageal reflux disease without esophagitis 743846841 K21.9 On pantaprozo leDoes wellTake as needed Hyperlipidemia 39809265 E78.5 On atorvastat in 20mg dailyNot on vascepaGet labs Insomnia 908200942 G47.0 0 On ambienDoes well Retinal ar amy occlusion 230387599 H34.9 Seen by Retina Capron 05/07/18: Dr Coleman, noted to have a Hallenhors t plaqueKeep apt wtih Dr Collado who he now sees Anemia 952216159 D64.9 Is on ironDoes well Osteonecro sis of head of femur 763259748 M87.[address] Barfield 01/15/2020 , no surgery doneDoes well Right uppe r quadrant pain 983320783 R10.[address] Watson 01/15/2020 No surgery doneDoes well Serum brielle min B12 below reference range 313147627 R79.89 Pain in right hand [address] 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 Abnormal g ait due to impairment of balance 623882079 R26.89 Feels that his gait is getting worse, he did have cerebellar surgery 17 years ago and feels that this contribute s to it, will get PT Adult heal th examination 959183801 Z00.00 Screening for disorder 352398197 Z13.9 [id number] Lalito Acuña MD [facility] [place] [address] [place] [address] 10/12/2022 12:28:40 10/12/2022 13:42:07 Chronic sinusitis 52583096 J32.9 [id number] Alfredo Fletcher MD [facility] [place] [address] [facility] 15 [place] [address] 11/07/2022 14:00:11 11/08/2022 09:18:46 Smoker 52442413 F17.218 F17.219 Z87.891 Moderate c hronic obstructive pulmonary disease 661539437 J44.9 J44.1 Posterior rhinorrhea 758 04112 R09.82 [id number] Cindy Dhillon MD [facility] [place] [address] [place] [address] 11/27/2022 14:43:15 11/27/2022 15:48:01 Well controlled type 2 diabetes mellitus 147407029 E11.9 A1C of 5.7%- continue tresiba 50 [...] to endocrinol ogy per patient request. Dyslipidemia 383470838 E 78.5 Continue statin therapy as LDL [...] answered and refills necessary at visit today. [id number] Lalito Acuña MD [facility] [place] [address] [place] [address] 12/07/2022 16:27:51 12/08/2022 14:58:09 Chronic sinusitis 22046510 J32.9 [id number] Marshal hays MD [facility] [address], [place] [address] 12/27/2022 11:27:41 12/27/2022 11:49:29 Abdominal pain 24985478 R10.[address] scan abd/pelvis , stat hold and callMay need to go to ER if not better, he is agreeable to this plan of care Addendum: 12/27/2022 :CT A/P; noted, needs to see GI hepatologi st, concern for masses Liver mass 442539005 R16 .0 Get a referral to oncologist CT A/P 12/27/2022 [id number] Marshal hays MD [facility] Internal Med [place] [address] [facility] [place] [address] [place] [address] 03/20/2023 14:10:52 03/22/2023 11:39:53 Liver mass 595474481 R16.0 Get a referral to oncologist CT A/P 12/27/[address] 01/04/2023 MRI Abd: 01/27/2023 CT 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/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 Dr Cassidy 01/02/2023 Screening - NAD 43086686 3 Z13.9 C-scope: 10/16/16: Dr Nilda hernandez [...] his understand ing of above Heart murmur 48414101 R0 1.[address] Harris Essential hypertension 25364243 I10 BP much better today 06/05/2022 On ASAOn amlodipine 5mg dailyOn chlorthali done 25mg 1/[address] Low 10/04/2021 On nadolol 20mg daily OK to renew 06/05/2022 Off lasixOff losartan 25mg daily as per Dr Harris 05/30/2022 Get labsHe does see Dr Low Type 2 anish betes mellitus without complication 315916560 E11.9 On trescibaOn Fiasp Sees Dr Dhillon 06/02/2022 next 11/27/[address] Powell podiatryNe eds to see eye MDGet labs from Dr Dhillon 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.[address] Jorge 10/05/21No w sees Dr Jimenez repeat labs Malignant neoplasm of urinary bladder 151461221 C67.9 s/p surgery by Dr Daniels, in 06/[address] Daniels Smoker 51479931 F17.200 Advised to quit LDCT 09/26/2019 CT chest 06/06/2021 : Cirrhosis of the liverGet AAA Liver enzy mes level above reference range 923175282 R74.[address] Silverio , but now sees Dr Brooks liver 05/17/2021 : cirrhosis, cholelithi asisGet labs Chronic ki dney disease 952162683 N18.9 Dr Low nephrology Neuropathy 289038026 G62 .9 Not on lyrica 50mg tidDoes well Gastroesop hageal reflux disease without esophagitis 669594366 K21.9 On pantaprozo leDoes wellTake as needed Hyperlipidemia 48635239 E78.5 On atorvastat in 20mg dailyNot on vascepaGet labs Insomnia 458606773 G47.0 0 On ambienDoes well Retinal ar amy occlusion 173844193 H34.9 Seen by Retina Capron 05/07/18: Dr Coleman, noted to have a Hallenhors t plaqueKeep apt wtih Dr Collado who he now sees Anemia 434865944 D64.9 Is on ironDoes well Osteonecro sis of head of femur 854694236 M87.[address] Barfield 01/15/2020 , no surgery doneDoes well Serum brielle min B12 below reference range 195716650 R79.89 Pain in right hand [address] 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 Abnormal g ait due to impairment of balance 626841348 R26.89 Feels that his gait is getting worse, he did have cerebellar surgery 17 years ago and feels that this contribute s to it, will get PT OV 03/20/2023 : Get PT renewed [id number] Marshal hays MD [facility] [place] [address] [facility] [place] [address] 07/04/2023 10:01:55 07/04/2023 10:55:29 Screening - NAD 977428591 Z13.9 C-scope: 10/16/16: Dr Nilda hernandez next [...] his understand ing of above Liver mass 954531686 R16 .0 Get a referral to oncologist CT A/P 12/27/[address] 01/04/2023 MRI Abd: 01/27/2023 CT 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/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CT A/P 06/29/2023 : Dr Khanh Cassidy will see 07/06/2023 Heart murmur 83114195 R0 1.[address] Harris Essential hypertension 13626411 I10 BP much better today 06/05/2022 On ASAOn amlodipine 5mg dailyOn chlorthali done 25mg 1/[address] Low 10/04/2021 On nadolol 20mg daily OK to renew 06/05/2022 Off lasixOff losartan 25mg daily as per Dr Harris 05/30/2022 Get labsHe does see Dr oLw Type 2 anish betes mellitus without complication 478118839 E11.9 On trescibaOn Fiasp Sees Dr Dhillon 06/02/2022 next 11/27/[address] Powell podiatryNe eds to see eye MDGet labs from Dr Dhillon Thrombotic thrombocytopenic purpura 36041929 M31.[address] Jorge 10/05/21No w sees Dr Jimenez repeat labs Malignant neoplasm of urinary bladder 144532045 C67.9 s/p surgery by Dr Daniels, in 06/[address] Daniels Smoker 63207934 F17.200 Advised to quit LDCT 09/26/2019 CT chest 06/06/2021 : Cirrhosis of the liverGet AAA Liver enzy mes level above reference range 696799700 R74.[address] Silverio , but now sees Dr Ledezma liver 05/17/2021 : cirrhosis, cholelithi asis Get labs Chronic ki dney disease 939831096 N18.9 Dr Low nephrology Neuropathy 567362628 G62 .9 On lyrica 50mg tid Does well Gastroesop hageal reflux disease without esophagitis 481498984 K21.9 On pantaprozo leDoes wellTake as needed Hyperlipidemia 06748532 E78.5 On atorvastat in 20mg dailyNot on vascepa Get labs Insomnia 625681273 G47.0 0 On ambienDoes well Retinal ar amy occlusion 888149693 H34.9 Seen by Retina Capron 05/07/18: Dr Coleman, noted to have a Hallenhors t plaque Keep apt wtih Dr Collado who he now sees Anemia 554885578 D64.9 Is on iron Does well Osteonecro sis of head of femur 597384696 M87.[address] Barfield 01/15/2020 , no surgery done Does well Serum brielle min B12 below reference range 968026261 R79.89 Pain in right hand [address] 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 Abnormal g ait due to impairment of balance 477877757 R26.89 Feels that his gait is getting worse, he did have cerebellar surgery 17 years ago and feels that this contribute s to it, will get PT OV 03/20/2023 : Get PT renewed Upper resp iratory infection 49571280 J06.9 Get xray chestGet on z-pack, flonase and claritinDo es not want to do COVID 19 RT PCR or strep or fluER if worse Addendum: 07/04/2023 : Case sent Skin lesion 89337778 L98 .9 Multiple slightly raised dark macules noted on the R>L abd wallRefer to Dr Watson [id number] Garrett lomeli MD [facility] General Surgery [address] [place] [address] 07/10/2023 11:14:23 07/25/2023 16:22:10 Skin tag 050463393 L91.8 [id number] Marshal hays MD [facility] Internal Med [place] [address] [place] [address] 07/19/2023 14:15:12 07/19/2023 14:46:44 Liver mass 451334737 R16.0 Get a referral to oncologist CT A/P 12/27/[address] 01/04/2023 MRI Abd: 01/27/2023 CT 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/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CT A/P 06/29/2023 : Dr Khanh Cassidy 07/06/2023 , f/u in 3 weeks Screening - NAD 37375892 3 Z13.9 C-scope: 10/16/16: Dr Nilda hernandez [...] his understand ing of above Heart murmur 61322178 R0 1.[address] Harris Essential hypertension 75960876 I10 BP much better today 06/05/2022 On ASAOn amlodipine 5mg dailyOn chlorthali done 25mg 1/[address] Low 10/04/2021 On nadolol 20mg daily OK to renew 06/05/2022 Off lasixOff losartan 25mg daily as per Dr Harris 05/30/2022 Get labsHe does see Dr Low Type 2 anish betes mellitus without complication 762551901 E11.9 On trescibaOn Fiasp Sees Dr Dhillon 06/02/2022 next 11/27/[address] Powell podiatryNe eds to see eye MDGet labs from Dr Dhillon Thrombotic thrombocytopenic purpura 60452667 M31.[address] Jorge 10/05/21No w sees Dr Jimenez repeat labs Malignant neoplasm of urinary bladder 560989419 C67.9 s/p surgery by Dr Daniels, in 06/[address] Daniels Smoker 08827453 F17.200 Advised to quit LDCT 09/26/2019 CT chest 06/06/2021 : Cirrhosis of the liverGet AAA Liver enzy mes level above reference range 188534294 R74.[address] Silverio , but now sees Dr Ledezma liver 05/17/2021 : cirrhosis, cholelithi asis Get labs Chronic ki dney disease 337777593 N18.9 Dr Low nephrology Neuropathy 317778808 G62 .9 On lyrica 50mg tidDoes well Gastroesop hageal reflux disease without esophagitis 347156565 K21.9 On pantaprozo leDoes wellTake as needed Hyperlipidemia 85101066 E78.5 On atorvastat in 20mg dailyNot on vascepa Get labs Insomnia 523801266 G47.0 0 On ambienDoes well Retinal ar amy occlusion 636025979 H34.9 Seen by Retina Capron 05/07/18: Dr Coleman, noted to have a Hallenhors t plaque Keep apt wtih Dr Collado who he now sees Anemia 373044063 D64.9 Is on iron Does well Osteonecro sis of head of femur 924811971 M87.[address] Barfield 01/15/2020 , no surgery done Does well Serum brielle min B12 below reference range 383616841 R79.89 Pain in right hand [address] 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 Abnormal g ait due to impairment of balance 797728296 R26.89 Feels that his gait is getting worse, he did have cerebellar surgery 17 years ago and feels that this contribute s to it, will get PT OV 03/20/2023 : Get PT renewed Upper resp iratory infection 79057819 J06.9 Get xray chestGet on z-pack, flonase and claritinDo es not want to do COVID 19 RT PCR or strep or fluER if worse Addendum: 07/04/2023 : Case sent Skin lesion 54578414 L98 .9 Multiple slightly raised dark macules noted on the R>L abd wallRefer to Dr Troy Watson 07/10/2023 , to get skin tag removed 07/31/2023 [id number] Garrett lomeli MD [facility] General Surgery [address] [place] [address] 09/06/2023 11:02:17 09/24/2023 14:37:12 Skin lesion 64892544 L98.9 Right Flank, Right upper leg [id number] Garrett lomeli MD [facility] General Surgery [address] [place] [address] 09/25/2023 10:29:06 09/25/2023 10:54:42 [id number] Marshal hays MD [facility] Internal Med [facility] [[email or web address] [address] [address] 11/15/2023 14:12:12 11/15/2023 14:47:24 Adult health examination 524726632 Z00.00 Screening for disorder 135688802 Z13.9 Liver mass 581649182 R16 .0 Get a referral to oncologist CT A/P 12/27/[address] 01/04/2023 MRI Abd: 01/27/2023 CT 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/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CT A/P 06/29/2023 : Dr Khanh Cassidy 09/27/2023 , be on megace Screening - NAD 68051211 3 Z13.9 C-scope: 10/16/16: Dr Nilda hernandez [...] his understand ing of above Heart murmur 41539548 R0 1.[address] Harris Essential hypertension 53458970 I10 BP much better today 06/05/2022 On ASAOn amlodipine 5mg dailyOn chlorthali done 25mg 1/[address] Low 10/04/2021 On nadolol 20mg daily OK to renew 06/05/2022 Off lasixOff losartan 25mg daily as per Dr Harris 05/30/2022 Get labsHe does see Dr Low Type 2 anish betes mellitus without complication 927384004 E11.9 On trescibaOn Fiasp Sees Dr Dhillon 06/02/2022 next 11/27/[address] Powell podiatryNe eds to see eye MDGet labs from Dr Dhillon Thrombotic thrombocytopenic purpura 23771036 M31.[address] Jorge 10/05/21No w sees Dr Jimenez repeat labs Malignant neoplasm of urinary bladder 139092950 C67.9 s/p surgery by Dr Daniels, in 06/[address] Daniels Smoker 62952432 F17.200 Advised to quit LDCT 09/26/2019 CT chest 06/06/2021 : Cirrhosis of the liverLDCT 09/24/2023 4: Dr Garcia AAA: 07/30/2023 Liver enzy mes level above reference range 195535778 R74.[address] Silverio , but now sees Dr Ledezma US liver 05/17/2021 : cirrhosis, cholelithi asisGet labs Chronic ki dney disease 168966305 N18.9 Dr Low nephrology Neuropathy 655166605 G62 .9 On lyrica 50mg tidDoes well Gastroesop hageal reflux disease without esophagitis 084763982 K21.9 On pantaprozo leDoes wellTake as needed Hyperlipidemia 18314576 E78.5 On atorvastat in 20mg dailyNot on vascepa Get labs Insomnia 096727271 G47.0 0 On ambien, renewed 11/15/2023 , [facility] Ret[facility] ar amy occlusion 208788499 H34.9 Seen by Retina Capron 05/07/18: Dr Coleman, noted to have a Hallenhors t plaque Keep apt wtih Dr Collado who he now sees Anemia 435390483 D64.9 Is on iron Does well Osteonecro sis of head of femur 772215032 M87.[address] Barfield 01/15/2020 , no surgery done Does well Serum brielle min B12 below reference range 866615692 R79.89 Pain in right hand [address] 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 Abnormal g ait due to impairment of balance 585585587 R26.89 Feels that his gait is getting worse, he did have cerebellar surgery 17 years ago and feels that this contribute s to it, will get PT OV 03/20/2023 : Get PT renewed Skin lesion 15145874 L98 .9 Multiple slightly raised dark macules noted on the R>L abd wallRefer to Dr Troy Watson last OV 09/25/2023 [id number] Marshal hays MD [facility] Internal Med [facility] [[email or web address] 15 [address] [facility], [address] [place] [address] 03/13/2024 14:23:11 03/13/2024 14:57:52 Liver mass 093187913 R16.0 Get a referral to oncologist CT A/P 12/27/[address] 01/04/2023 MRI Abd: 01/27/2023 CT 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/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CT A/P 06/29/2023 : Dr Khanh Cassidy 09/27/2023 , be on megaceDr Khanh 01/17/2024 Screening - NAD 78474341 3 Z13.9 C-scope: 10/16/16: Dr Nilda hernandez next in 10 years Get flu shot declined thisUTStormy Tdap 02/06/17Ge t COVID 19 vaccine done states that he does not want it as he does not believe in vaccine that was rushed thru', advised to follow CDC guidelines Can do RSV vaccine RTC in 4 monthsGet labsER if worsehe did verbalize his understand ing of above Heart murmur 49855229 R0 1.[address] Harris Essential hypertension 44444542 I10 BP much better today 06/05/2022 On ASAOn amlodipine 5mg dailyNot on chlorthali done 25mg 1/[address] Low 10/04/2021 On nadolol 20mg daily OK to renew 06/05/2022 Off lasixOff losartan 25mg daily as per Dr Harris 05/30/2022 Get labsHe does see Dr Low Type 2 anish betes mellitus without complication 342980289 E11.9 On trescibaOn Fiasp Sees Dr Dhillon 06/02/2022 next 11/27/[address] Powell podiatryNe eds to see eye MDGet labs from Dr Dhillon Thrombotic thrombocytopenic purpura 07437194 M31.[address] Jorge 10/05/21No w sees Dr Jimenez repeat labs Malignant neoplasm of urinary bladder 304133633 C67.9 s/p surgery by Dr Daniels, in 06/[address] Daniels Smoker 88712987 F17.200 Advised to quit LDCT 09/26/2019 CT chest 06/06/2021 : Cirrhosis of the liverLDCT 09/24/2023 4: Dr Garcia AAA: 07/30/2023 Liver enzy mes level above reference range 492482735 R74.[address] Silverio , but now sees Dr Ledezma US liver 05/17/2021 : cirrhosis, cholelithi asisGet labs Chronic ki dney disease 716106066 N18.9 Dr Low nephrology Neuropathy 164988909 G62 .9 On lyrica 50mg tidDoes well Gastroesop hageal reflux disease without esophagitis 322193135 K21.9 On pantaprozo leDoes wellTake as needed Hyperlipidemia 32777512 E78.5 On atorvastat in 20mg dailyNot on vascepa Get labs Insomnia 237762646 G47.0 0 On ambienDoes well Retinal ar amy occlusion 332923167 H34.9 Seen by Retina Capron 05/07/18: Dr Coleman, noted to have a Hallenhors t plaque Keep apt wtih Dr Collado who he now sees Anemia 413668717 D64.9 Is on iron Does well Osteonecro sis of head of femur 761256399 M87.[address] Barfield 01/15/2020 , no surgery done Does well Serum brielle min B12 below reference range 080164409 R79.89 Pain in right hand [address] 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 Abnormal g ait due to impairment of balance 195488014 R26.89 Feels that his gait is getting worse, he did have cerebellar surgery 17 years ago and feels that this contribute s to it, will get PT OV 03/20/2023 : Get PT renewed Skin lesion 89837771 L98 .9 Multiple slightly raised dark macules noted on the R>L abd wallRefer to Dr Troy Watson last OV 09/25/2023 [id number] Marshal hays MD [facility] Internal Med [facility] [[email or web address] [address] [facility], [address] [place] [address] 04/08/2024 12:17:56 04/08/2024 13:09:48 Liver mass 395355624 R16.0 Get a referral to oncologist CT A/P 12/27/[address] 01/04/2023 MRI Abd: 01/27/2023 CT 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/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CT A/P 06/29/2023 : Dr Khanh Cassidy 09/27/2023 , be on megaceDr Khanh 01/17/2024 Screening - NAD 53068937 3 Z13.9 C-scope: 10/16/16: Dr Nilda hernandez [...] his understand ing of above Heart murmur 77749844 R0 1.[address] Castelan/[facility] d/c 03/28/2024 , s/p stent, apt with Dr Harris is on 04/10/2024 Essential hypertension 85515528 I10 BP much better today 06/05/2022 Off ASAOff amlodipine 5mg dailyOn plavixOn isosorbide ER 60mg dailyNot on chlorthali done 25mg 1/[address] Low 10/04/2021 On nadolol 20mg daily OK to renew 06/05/2022 Off lasixOff losartan 25mg daily as per Dr Harris 05/30/2022 Get labsHe does see Dr Low Type 2 anish betes mellitus without complication 071185329 E11.9 On trescibaOn FiaspAs per hx 04/08/2024 , his ACCU was 112 today, yesterday was [address] Darya Powell podiatryNe eds to see eye MD Dr Narvaez eye MD in 05/08/2024 , as per his history 04/08/[address] Dhillon Thrombotic thrombocytopenic purpura 69277939 M31.[address] Jorge 10/05/21Anjelica w sees Dr Cassidy on 04/10/2024 Get repeat labs Malignant neoplasm of urinary bladder 496952535 C67.9 s/p surgery by Dr Daniels, in 06/[address] Daniels, next apt in 09/2024On flomax but states that this has not helped, he will make his apt again with urology Smoker 28243813 F17.200 Advised to quit LDCT 09/26/2019 CT chest 06/06/2021 : Cirrhosis of the liverLDCT 09/24/2023 4: Dr Garcia AAA: 07/30/2023 Liver enzy mes level above reference range 361152713 R74.[address] Silverio , but now sees Dr Ledezma US liver 05/17/2021 : cirrhosis, cholelithi asisGet labs Chronic ki dney disease 583934731 N18.9 Dr Low nephrology Neuropathy 216165074 G62 .9 On lyrica 50mg tidDoes well Gastroesop hageal reflux disease without esophagitis 746108675 K21.9 On pantaprozo leDoes wellTake as needed Hyperlipidemia 41848721 E78.5 On atorvastat in 20mg dailyNot on vascepa Get labs Insomnia 432985072 G47.0 0 On ambienDoes well Retinal ar amy occlusion 779741928 H34.9 Seen by Retina Capron 05/07/18: Dr Coleman, noted to have a Hallenhors t plaque Keep apt wtih Dr Collado who he now sees Anemia 364034922 D64.9 Is on iron Does well Osteonecro sis of head of femur 064747088 M87.[address] Barfield 01/15/2020 , no surgery done Does well Serum brielle min B12 below reference range 164189491 R79.89 Pain in right hand [address] 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 Abnormal g ait due to impairment of balance 505833086 R26.89 Feels that his gait is getting worse, he did have cerebellar surgery 17 years ago and feels that this contribute s to it, will get PT OV 03/20/2023 : Get PT renewed Skin lesion 62978991 L98 .9 Multiple slightly raised dark macules noted on the R>L abd wallRefer to Dr Troy Watson last OV 09/25/2023 Transition of care 42722 75700 105 Z75.8 [id number] Marshal hays MD [facility] [address] [facility], [address] [place] [address] 07/10/2024 13:58:35 07/10/2024 15:13:25 Liver mass 890106127 R16.0 Get a referral to oncologist CT A/P 12/27/[address] 01/04/2023 MRI Abd: 01/27/2023 CT 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/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CT A/P 06/29/2023 : Dr Khanh Cassidy 09/27/2023 , be on megaceDr Khanh 01/17/2024 Dr Zhang 06/27/2024 Screening - NAD 70344539 3 Z13.9 C-scope: 10/16/16: Dr Nilda hernandez next in 10 years Get flu shot declined thisUTD Tdap 02/06/17Ge t COVID 19 vaccine done states that he does not want it as he does not believe in vaccine that was rushed thru', advised to follow CDC guidelines Can do RSV vaccineGet shingrix vaccine RTC in 3 monthsGet labsER if worsehe did verbalize his understand ing of above Heart murmur 55279997 R0 1.[address] Castelan/p hospital d/c 03/28/2024 , s/p stent, is to see Dr Sosa 07/17/2024 Essential hypertension 34661983 I10 BP much better today 06/05/2022 Off ASAOff amlodipine 5mg dailyOn plavixOn isosorbide ER 60mg dailyNot on chlorthali done 25mg 1/[address] Low 10/04/2021 On nadolol 20mg daily OK to renew 06/05/2022 On midrodine 5mg tidOn NTG Off lasixOff losartan 25mg daily as per Dr Harris 05/30/2022 Get labsHe does see Dr Low Type 2 anish betes mellitus without complication 287606438 E11.9 On trescibaOn FiaspAs per hx 04/08/2024 , his ACCU was 112 today, yesterday was [address] Darya Powell podiatryNe eds to see eye MD Dr Narvaez eye in 05/08/2024 , as per his history 04/08/[address] Dhillon tomorrow 07/11/2024 Thrombotic thrombocytopenic purpura 32693591 M31.[address] Jorge 10/05/21No w sees Dr Cassidy on 04/10/2024 Get repeat labs Malignant neoplasm of urinary bladder 559701552 C67.9 s/p surgery by Dr Daniels, in 06/[address] Daniels, next apt in 09/2024On flomax but states that this has not helped, he will make his apt again with urology Smoker 35045245 F17.200 Advised to quitOn albuterol LDCT 09/26/2019 CT chest 06/06/2021 : Cirrhosis of the liverLDCT 09/24/2023 4: Dr Garcia AAA: 07/30/2023 Liver enzy mes level above reference range 867882165 R74.[address] Silverio , but now sees Dr Ledezma US liver 05/17/2021 : cirrhosis, cholelithi asisGet labs Chronic ki dney disease 594268389 N18.9 Dr Low nephrology Neuropathy 648484101 G62 .9 On lyrica 50mg tidDoes well Gastroesop hageal reflux disease without esophagitis 535157041 K21.9 On pantaprozo leDoes wellTake as needed Hyperlipidemia 26547042 E78.5 On atorvastat in 20mg dailyNot on vascepa Get labs Insomnia 181473027 G47.0 0 On ambienDoes well Retinal ar amy occlusion 785270125 H34.9 Seen by Retina [facility]ron 05/07/18: Dr Coleman, noted to have a Hallenhors t plaque Keep apt wtih Dr Collado who he now sees Anemia 676287857 D64.9 Is on ironOn procrit as per Dr Cassidy Does well Osteonecro sis of head of femur 154715018 M87.[address] Barfield 01/15/2020 , no surgery done Does well Serum brielle min B12 below reference range 268003575 R79.89 Pain in right hand [address] 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 Abnormal g ait due to impairment of balance 054245821 R26.89 Feels that his gait is getting worse, he did have cerebellar surgery 17 years ago and feels that this contribute s to it, will get PT OV 03/20/2023 : Get PT renewed Skin lesion 00903951 L98 .9 Multiple slightly raised dark macules noted on the R>L abd wallRefer to Dr Troy Watson last OV 09/25/2023 Liver cell carcinoma 109 975741 C22.0 On immunother apyCT scan A/P in 08/01/2024 Is on procritOn megaceOn hydroxyzin e Chronic rhinitis 6299097 6 J31.0 On flonaseOn cetrizine Moderate c hronic obstructive pulmonary disease 480744715 J44.9 Was told he did have COPD by Dr [facility] Concerns Section Related Observation LastModified by Organization Detai ls LastModified Time None Recorded Concern Status LastModified by Organization Details LastModified Time None Recorded Advance Directives Directive N: not interested in info to day Payers Encounter Date Sequence Insurance Name Policy Number Policy Montejo Covered Member ID Montejo Member ID Guarantor Name 09/25/2023 1 [employer] (MEDICARE REPLACEMENT/A DVANTAGE - HMO) Daniel Treviño [id number] Daniel Bryant Kamila 11/15/2023 1 [employer] (MEDICARE REPLACEMENT/A DVANTAGE - HMO) Daniel Bryant Kamila [id number] Daniel Bryant Kamila 03/13/2024 1 [employer] (MEDICARE REPLACEMENT/A DVANTAGE - HMO) Daniel Bryant Kamila [id number] Daniel Treviño 04/08/2024 1 [employer] (MEDICARE REPLACEMENT/A DVANTAGE - HMO) Daniel Bryant Kamila [id number] Daniel Treviño 07/10/2024 1 [employer]US (MEDICARE REPLACEMENT/A DVANTAGE - HMO) Daniel Bryant Kamila [id number] Daniel Treviño Notes Date Note Type Note Provider Name and Address Organization Details Recorded Time 024 text/ht ml No complaints Garrett jefferson MD [address] [facility], [facility] [[email or web address]] [address], [place], [address], [facility] [employer] 09/25/2023 10:48:49 024 text/ht ml Here to establish carePrior PMD Dr Jones and Marybeth Carolina Hx:CirrhosisBladder cancerDMIIHTNGERDInsomniaReviewed social family and surgical historyHere to discuss above and also wishes to get his tramadol renewed by this office OV 06/07/17:Here for his routine aptHe states that the electronic publications specialist gave him the gabapentin and this did [...] well today, he has no recent labs Marshal Hooper MD [address] [facility], [facility] [[email or web address]] [address], [place], [address], [facility] [email or web address] 11/20/2023 15:02:08 025 text/ht ml Here to establish carePrior PMD Dr Jones and Marybeth Carolina Hx:CirrhosisBladder cancerDMIIHTNGERDInsomniaReviewed social family and surgical historyHere to discuss above and also wishes to get his tramadol renewed by this office OV 06/07/17:Here for his routine aptHe states that the electronic publications specialist gave him the gabapentin and this did [...] the labs with Dr Khanh Hooper MD [address] [place] [address], [facility] [[email or web address] [address], [place], [address], [facility] [employer] 03/26/2024 18:30:33 025 text/ht ml Here to establish carePrior PMD Dr Jones and Marybeth Carolina Hx:CirrhosisBladder cancerDMIIHTNGERDInsomniaReviewed social family and surgical historyHere to discuss above and also wishes to get his tramadol renewed by this office OV 06/07/17:Here for his routine aptHe states that the electronic publications specialist gave him the gabapentin and this did [...] that he is doing much better now Marshal Hooper MD [address] [facility], [facility] [[email or web address]] [address], [place], [address], [place] [facility] [employer] [facility] [email or web address] 04/08/2024 14:04:50 025 text/ht ml Here to establish carePrior PMD Dr Jones and Marybeth Carolina Hx:CirrhosisBladder cancerDMIIHTNGERDInsomniaReviewed social family and surgical historyHere to discuss above and also wishes to get his tramadol renewed by this office OV 06/07/17:Here for his routine aptHe states that the electronic publications specialist gave him the gabapentin and this did [...] that he is doing much better now OV 07/10/2024: Here for his f/u apt, he is doing well today, he is here with [place], he has done labs with Dr Khanh Hooper MD [address] [facility], [facility] [[email or web address]] [address], [place], [address], [place] [facility] 07/10/2024 19:11:48
--- OUTSIDE RECORDS SUMMARY | 2024-07-29 09:07 | XMS_ITS | Clinical Summary ---
Author Organization [facility] Facility Address [address] [address] Care Team Providers Care Instrument Sterilizer Name Role Phone Shay Hooper MD Primary Care Provider [phone] Allergies Active Allergy Reactions Criticality Noted Date Comments Codeine 05/10/2021 Penicillins 05/10/2021 Medications torsemide (DEMADEX) 10 MG tablet Take 1 tablet (10 mg total) by mouth every morning 90 tablet 1 2 Active ergocalciferol 1.25 MG (38528 UT) capsule Take 1 capsule (50,000 Units total) by mouth every 30 (thirty) days 4 capsule 1 2 Active atorvastatin (LIPITOR) 20 MG tablet Take 1 tablet (20 mg total) by mouth every night 90 tablet 1 3 Active MAGnesium-Oxide 400 (240 Mg) MG tablet Take 1 tablet by mouth once daily 90 tablet 5 Active insulin degludec (Tresiba FlexTouch) 100 UNIT/ML injection Inject 15 Units under the skin 1 (one) time each day 13.5 mL 1 5 07/23/19 26 Active insulin degludec (Tresiba FlexTouch) 100 UNIT/ML injection Inject 30 Units under the skin 1 (one) time each day 6 mL 1 5 07/23/19 25 Discontinu ed(Reorder (does not appear on AVS)) Active Problems Problem Noted Date Diagnosed Date Essential hypertension 07/09/2024 Encounters Date Type Department Care Team Description 07/24/2024 Documentation Only [facility], [address] [address] Emiliano Washington, DO 07/23/2024 Documentation Only [facility], [address] [address] Emiliano Washington, DO 07/22/2024 1:30 PM CDT Office Visit [facility], [facility] [address] [facility] [address] [place] [phone] Emiliano Washington, DO Stage 3b chronic kidney disease (HCC) (Primary Dx); Alcoholic fibrosis and sclerosis of liver; Esophageal varices associated with another disorder (HCC); Stroke, not otherwise specified (HCC); Peripheral vascular disease (HCC); Hypertensive chronic kidney disease; Type 2 diabetes mellitus with diabetic chronic kidney disease (HCC); Pure hypercholesterolemi a, not otherwise specified; Tobacco use 07/18/2024 Documentation Only [facility], [address] [address] Emiliano Washington, DO 07/14/2024 Documentation Only [facility], [address] [address] Emiliano Washington, DO 07/14/2024 Documentation Only [facility], [address] [address] Emiliano Washington, DO 07/11/2024 Documentation Only [facility], [address] [address] Emiliano Washington, DO 07/09/2024 Orders Only [facility], [address] [address] Adrianne Corbin Essential hypertension (Primary Dx) 07/07/2024 Documentation Only [facility], [address] [address] Emiliano Washington, DO 07/07/2024 Documentation Only [facility], [address] [address] Emiliano Washington, DO 07/07/2024 Documentation Only [facility], [address] [address] Emiliano Washington, DO 07/07/2024 Documentation Only [facility], [address] [address] Emiliano Washington, DO 07/07/2024 Documentation Only [facility], [address] [address] Emiliano Washington, DO 07/04/2024 Documentation Only [facility], [address] [address] Emiliano Washington, DO 06/16/2024 Refill [facility], [facility] [address] [phone] Emiliano Washington, DO 05/29/2024 Office Communication [facility], [address] [address] Emiliano Washington, DO 05/29/2024 Documentation Only [facility], [address] [address] Emiliano Washington, DO 05/08/2024 Documentation Only [facility], [address] [address] Emiliano Washington, DO 2024 2:45 PM CDT Office Visit [facility], [facility] [address] [phone] Emiliano Washington, DO Stage 3 chronic kidney disease, not [...] not otherwise specified; Tobacco use 2024 Refill [facility] [address] [facility] [address] [place] [address] [employer] 05/02/2024 Documentation Only [facility] [address] [address] Emiliano Washington DO from Last 3 Months Social History Tobacco Use Types Packs/Day Years Used Date Smoking Tobacco: Never Assessed Sex and Gender Information Value Date Recorded Sex Assigned at Not on file Legal Sex Male 2:49 PM EST Gender Identity Not on file Sexual Orientation Not on file Last Filed Vital Signs Vital Sign Reading Time Taken Comments Blood Pressure 131/58 07/22/2024 1:33 PM CDT Pulse 100 07/22/2024 1:33 PM CDT Temperature 36.1 C (97 F) 2024 3:13 PM CDT Respiratory Rate 18 07/22/2024 1:33 PM CDT Oxygen Saturation 99% 2024 3:13 PM CDT Inhaled Oxygen Concentration - - Weight 76.2 kg (168 lb) 07/22/2024 1:33 PM CDT Height 180.3 cm (5' 11) 07/22/2024 1:33 PM CDT Body Mass Index 23.43 07/22/2024 1:33 PM CDT Plan of Treatment Upcoming Encounters Date Type Department Care Team (Late st Contact Info) Description 10/14/2024 2:15 PM CDT Office [facility] [address] [facility] [address] [place] [address] Emiliano Washington DO [address] [place] [address] Health Maintenance Due Date Last Done Comments Pneumococcal Vaccine: 50+ Years (1 of 2 - PCV) 975 Colorectal Cancer Screening: Annual FOBT 05/05/2004 Colorectal Cancer Screening: Colonoscopy 05/05/2004 Colorectal Cancer Screening: Sigmoidoscopy 05/05/2004 Hepatitis B Vaccine (1 of 3 - Risk 3-dose series) 04/26 Diabetes: Hemoglobin A1C 03/01/2021 09/18/2017 Diabetes: Ophthalmology Exam 03/01/2021 Diabetes: Pedal Pulse Checked 03/01/2021 Diabetes: Sensory Foot Exam 03/01/2021 Diabetes: Visual Foot Exam 03/01/2021 Influenza Vaccine (Season Ended) [address] [place] [address] Medicare Advance Directives Documents on File Type Date Recorded 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
--- OUTSIDE RECORDS SUMMARY | 2024-07-29 09:07 | XMS_ITS | CONTINUITY OF CARE DOCUMENT ---
Author Name shea valdivia Address Unknown Organization [facility] Address [address] [place] [address] Phone [phone] Care Team Providers Care Porcelain Enameler Name Role Phone Rene Harris MD Unavailable [phone] López Powell DPM Unavailable MARSHAL CONDON MD Unavailable PROBLEMS Condition Status Date Provider Notes HTN essential active Rene Harris MD Cardiology examination active Rene Harris MD Liver cancer, primary active Rene Burrows Cardiology examination active Rene Harris MD Aortic stenosis active Rene Harris MD LBBB active Rene Harris MD Chest pain active Rene Harris MD Dizziness active Rene Harris MD Aortic insufficiency active Rene Harris MD Facial numbness active Rene Harris MD CAD s/p stents active Rene Harris MD Syncope active 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 Rene Harris MD Family History of Hypertension: active ? Kale Harris MD Family History of CVA or Stroke: active ? Beulah Harris MD ENCOUNTERS Date Type Provider Location Encounter Diag nosis - In-person encounter Office Visit Rene Harris MD [facility] - In-person encounter Office Visit Rene Harris MD [facility] Chest pain - In-person encounter Office Visit Rene Harris MD [facility] Dizziness - In-person encounter Office Visit Rene Harris MD [facility] Cardiology examinationFacial numbnessAortic insufficiencyAortic stenosisLBBB - In-person encounter Office Visit Rene Harris MD [facility] CAD s/p stents - In-person encounter Office Visit Rene Harris MD [facility] - In-person encounter Office Visit Rene Harris MD [facility] Liver cancer, primary - In-person encounter Office Visit Rene Harris MD [facility] Syncope - In-person encounter Office Visit Rene Harris MD [facility] - In-person encounter Office Visit Rene Harris MD [facility] Cirrhosis, alcoholic, liverSystolic murmurAbnormal EKG - In-person encounter Office Visit Rene Harris MD [facility] PVD with ulcer - In-person encounter Office Visit Rene Harris MD [facility] Carotid artery disea se - In-person encounter Office Visit Rene Harris MD [facility] Hyperlipidemia - In-person encounter Office Visit Rene Harris MD [facility] Tobacco abuse - In-person encounter Office Visit Rene Harris MD [facility] Cardiology examinationFamily History of CVA or Stroke:Family History of Hypertension:Family History of Sudden Cardiac :Diabetic foot ulcer, great toe, leftHx of Stroke and TIADiabetes mellitus VITAL SIGNS Date Observation Value Provider Body Mass Index (Ratio) 23.43 kg/m2 Kale Harris MD blood pressure, diastolic 59 mm[Hg] Summer Clarke blood pressure, systolic 138 mm[Hg] Perla ashley Clarke oxygen saturation, oximetry 95 % Radha Clarke pulse rate 97 /min Radha Clarke respiratory rate E&M 13 /[facility] 168 [lb_av] Radha Clarke height E&M 71 [in_i] Radha Clarke blood pressure, cuff size regular ivory Clarke Body Mass Index (Ratio) 23.71 kg/m2 Kale Harris MD blood pressure, diastolic 57 mm[Hg] Summer Clarke blood pressure, systolic 124 mm[Hg] Perla Clarke oxygen saturation, oximetry 99 % Radha Clarke pulse rate 80 /min Radha Clarke respiratory rate E&M 12 /min Radha Clarke weight E&M 170 [lb_av] [facility] height E&M 71 [in_i] [facility] blood pressure, cuff size regular [facility] Body Mass Index (Ratio) 23.57 kg/m2 Kale Harris MD blood pressure, diastolic 51 mm[Hg] [facility] blood pressure, systolic 111 mm[Hg] [facility] oxygen saturation, oximetry 97 % [facility] pulse rate 63 /min [facility] respiratory rate E&M 12 /min [facility] weight E&M 169 [lb_av] [facility] height E&M 71 [in_i] [facility] blood pressure, cuff size regular [facility] Body Mass Index (Ratio) 24.96 kg/m2 Kale Harris MD blood pressure, diastolic 66 mm[Hg] [facility] blood pressure, systolic 135 mm[Hg] [facility] oxygen saturation, oximetry 97 % [facility] pulse rate 71 /min [facility] respiratory rate E&M 12 /min [facility] weight E&M 179 [lb_av] [facility] height E&M 71 [in_i] [facility] blood pressure, cuff size regular [facility] Body Mass Index (Ratio) 26.22 kg/m2 Kale Harris MD pulse rate 67 /min Wanda Bethel blood pressure, diastolic 52 mm[Hg] Ka yla Bethel blood pressure, systolic 101 mm[Hg] Alem la Bethel oxygen saturation, oximetry 95 % [facility] E&M 188 [lb_av] [facility] height E&M 71 [in_i] Wanda Rust Body Mass Index (Ratio) 26.36 kg/m2 Kale Harris MD weight E&M 189 [lb_av] Adri Stanley pulse rate 74 /min Adri Stanley blood pressure, cuff size regular Myles burton Stanley blood pressure, diastolic 50 mm[Hg] [facility], systolic 108 mm[Hg] [facility] Stanley oxygen saturation, oximetry 99 % Adri Stanley respiratory rate E&M 12 /min Adri Stanley height E&M 71 [in_i] Adri Stanley Body Mass Index (Ratio) 28.87 kg/m2 Kale Harris MD blood pressure, cuff size regular [facility] blood pressure, diastolic 66 mm[Hg] Ja et blood pressure, systolic 144 mm[Hg] Jd ret pulse rate 72 /min Mikey oxygen saturation, oximetry 98 % Mikey respiratory rate E&M 12 /min Mikey weight E&M 207 [lb_av] Mikey er y height E&M 71 [in_i] Mikey er y Body Mass Index (Ratio) 28.31 kg/m2 Kale Harris MD blood pressure, diastolic 73 mm[Hg] St palak Pulliam blood pressure, systolic 136 mm[Hg] Ivette Pulliam oxygen saturation, oximetry 96 % Naomy Pulliam pulse rate 71 /min Naomy Pulliam respiratory rate E&M 18 /min Naomy Stormy smiley weight E&M 203 [lb_av] Naomyadri Pulliam height E&M 71 [in_i] Naomyadri Pulliam Body Mass Index (Ratio) 28.87 kg/m2 Kale Harris MD blood pressure, cuff size large Ke rri Froyuenebrieneldjordana blood pressure, diastolic 70 mm[Hg] Ke rri Froyuenenfeldojrdana blood pressure, systolic 140 mm[Hg] Hannah ri Gabriel oxygen saturation, oximetry 98 % Radha Gabriel respiratory rate E&M 16 /min Radha wagner pulse rate 73 /min Radha Norma riggs weight E&M 207 [lb_av] Radha Norma lder height E&M 71 [in_i] Radha Norma er Body Mass Index (Ratio) 29.01 kg/m2 [...] Antonellageovani Guerrier pulse rate 71 /min Antonella ordaz weight E&M 194 [lb_av] Antonella Garcia l height E&M 71 [in_i] Antonella Garcia l Body Mass Index (Ratio) 26.92 kg/m2 Kale Harris MD blood pressure, diastolic 80 mm[Hg] Trey iscarly [place] blood pressure, systolic 152 mm[Hg] Kri styariel [place] oxygen saturation, oximetry 98 % Cynthia Olga Lidia respiratory rate E&M 17 /min Cynthia [place] pulse rate 72 /min Cynthia Olga Lidia blood pressure, cuff size regular Kr iscarly [place] weight E&M 193 [lb_av] Cynthia Olga Lidia height E&M 71 [in_i] Cynthia Olga Lidia [...] blood pressure, cuff size large Ke rri Margaritobrightlook hospitaljordana blood pressure, diastolic 80 mm[Hg] Ke rri Froyclarissabrightlook hospitaljordana blood pressure, systolic 124 mm[Hg] Hannah eubanks Margaritoeldjordana oxygen saturation, oximetry 98 % Radha Gabriel respiratory rate E&M 20 /min Radha Lenora wagner pulse rate 88 /min Radha Norma lder weight E&M 195 [lb_av] Radha Norma lder height E&M 71 [in_i] Radha Norma lder ALLERGIES Allergy Name Onset Date Reaction Criticality Status TORSEMIDE Broke out in blisters Low Criticalit y active PCN Low Criticality active CODIENE gi upset Low Criticality active HISTORY OF MEDICATION USE Medication Status Instructions Dates Provider Indications Com ments Retacrit active Radha Clarke midodrine 5 mg tablet active Take 1 tablet by mouth three times a day Rene Harris MD clopidogrel 75 mg tablet active Take 1 tablet by mouth once daily Sarina Pro nadolol 40 mg tablet active Christine Cai [...] nithya Harris MD cigarette use yes Rene Burrows smoking status Current every da y smoker Rene Harris MD smoking/tobacco cess ation, patient education and counseling yes Rene Harris MD number of years as a smoker 50 a Rene Harris MD smoking history, tot al pack/day 1/2 nithya Harris MD cigarette use yes Rene Burrows smoking status Current every da y smoker Rene Harris MD smoking/tobacco cess ation, patient education and counseling yes Rene Harris MD number of years as a smoker 50 a Rene Harris MD smoking history, tot al pack/day 1/2 nithya Harris MD cigarette use yes Rene Burrows smoking status Current every da y smoker Rene Harris MD smoking/tobacco cess ation, patient education and counseling yes Rene Harris MD number of years as a smoker 50 a Rene Harris MD smoking history, tot al pack/day 1/2 nithya Harris MD cigarette use yes Rene Burrows [...] social history E&M S moking History: P alex currently smokes every day. P atganesh has been counseled to quit. Daniela Sanches [facility] social history reviewed E&M revi ewed - no changes required Daniela MARROQUIN smoking/tobacco cess ation, patient education and counseling [...] ation, patient education and counseling yes Radha Pimenteliván number of years as a smoker 50 a Radha Rios smoking history, tot al pack/day 1/2 ppd Radha Pimentelsudhakarjordana cigarette use yes Radha minor smoking status [...] ppd Antonella Guerrier cigarette use yes Antonella Deejay looney smoking [...] ppd Radha Rios cigarette use yes Radha Pimentel elder smoking status Current every da y smoker Radha Rios FUNCTIONAL STATUS Date Observation Value Provider HRA, CV Assess/Plan, Angina (inactive) Management Plan continue current therapy Rene Harris MD FAMILY HISTORY Family Member Condition Mother Negative FH of Coron efra Artery Disease Father Family History of Fallon dden Cardiac : Father Family History of Hy pertension: Father Family History of CV A or Stroke: INSURANCE PROVIDERS Payer name Policy type / Coverage type [employer] HMO HMO [id number] ADVANCE DIRECTIVES Name Date DISCUSSED - NO DECISION MADE TREATMENT PLAN Date Name Performer [id number],C, H is last echo showed EF is 65%. His Carotid study showed <50% stenosis of the right ICA, 50 - 69% stenosis of the left ICA, Possible right subclavian stenosis. Follows with Dr. Wu. Daniela Myron [facility] [id number],C,P t states that he had a recent syncopal episode with slurred speech this past Mother's Day. Denies chest pain and palpitations. Does c/o SOB. Did not return back to the hospital as was there month prior with similar episode. Will arrange a 2 week tele monitor and Stress Reg. Daniela Myron [facility] [id number],S, H is updated medication list for this problem includes: Atorvastatin 40 Mg Tablet (Atorvastatin) ..... Take 1 tablet once a day Lipitor 40 Mg Tablet (Atorvastatin) ..... 1 tablet once a day Daniela Sanches [facility] [id number],S,W ill arrange RPM. BP today: 136/73 P rior BP: 140/70 (08/08/2021) His updated medication list for this problem includes: Amlodipine 5 Mg Tablet (Amlodipine) ..... Take 1 tablet by mouth once daily Lasix 20 Mg Tablet (Furosemide) ..... Take 1 once a day Aspirin 81 Mg Tablet,delayed Release (dr/ec) (Aspirin) ..... 1 tablet by mouth once a day Daniela Sanches [facility] [id number],S,S till smokes 1PPD. The Patient was reencouraged to stop smoking. Daniela Sanches [facility] [id number],C,H e has been having fluctuating BPs and he does not feel okay taking Losartan. Will stop Losartan 20mg and start Amlodipine to see if sx resolve. Will hopefully see him in the office soon. Rene Harris MD [id number],C,T he Patient was reencouraged to stop smoking. Rene Harris MD [id number],C,T he Patient was reencouraged to stop smoking. Rene Harris MD [id number],C,per Dr.B Kale Harris MD [id number],B,Ulcers have h ealed. Rene Harris MD [id number],C,E cho showed mild aortic stenosis. Otherwise no significant sx. Continue medical therapy. Rene Harris MD [id number],N,N ew PRWP on EKG today compared to previous. Will check echocardiogram. Rene Harris MD [id number],C,W ill obtain lipids from [facility]'s office. H is updated medication list for this problem includes: Atorvastatin 40 Mg Tablet (Atorvastatin) ..... Take 1 tablet once a day Lipitor 40 Mg Tablet (Atorvastatin) ..... 1 tablet once a day Rene Harris MD [id number],S, T he Patient was reencouraged to stop smoking. Rene Harris MD [id number],S,H gladys systolic murmur appreciated on exam. Will recheck echo to monitor progression of aortic stenosis. Rene Harris MD [id number],C, H as had interventions done on the [...] Rene Harris MD Cardiology Rene Harris MD Cardiology: H is updated medication list for this problem includes: Nadolol 40 Mg Tablet (Nadolol) Aspirin 81 Mg Tablet,delayed Release (dr/ec) (Aspirin) ..... 1 tablet by mouth once a day BP today: 138/59 P rior BP: 124/57 (07/17/2024) Rene Harris MD Cardiology:Stable. C ontinue medical therapy. I f he is to have new chest pains in the future it may be reasonable to proceed with a cardiac cath Rene Harris MD Cardiology:Stress te st showed a fixed defect consistent with prior infarct in the anterior wall, recommend we continue medical therapy with statin and asa. His pains have resolved Rene Harris MD Cardiology:Having st able angina, needs nuclear stress test C annot ambulate due to arthritic pains Rene Harris MD Cardiology:Needs vascular surger y evaluation Rene Harris MD Cardiology:Needs str ess test, patient has had an episode of cp necessitating use of slntg H e has chronic anemia that may be contributing to his chest pain, HGb being follwoed by hematology O ncology treating him for liver cancer Rene Harris MD Cardiology:This visi t has been a part of the consistent, comprehensive, and ongoing management of the chronic medical condition(s) listed above for the patient. His updated medication list for this problem includes: Nadolol 40 Mg Tablet (Nadolol) Aspirin 81 Mg Tablet,delayed Release (dr/ec) (Aspirin) ..... 1 tablet by mouth once a day BP today: 111/51 P rior BP: 135/66 (04/10/2024) Rene Harris MD Cardiology:repeat ec ho m urmur appreciated Rene Harris MD Cardiology:recommend discussion with GI if he may reduce nadolol given his dizziness Rene Harris MD Cardiology:Needs to restart plavix, R ecent stents to LAD and RCA T his visit has been a part of the consistent, comprehensive, and ongoing management of the chronic medical condition(s) listed above for the patient. Rene Harris MD Cardiology Rene Harris MD [...] stenosis. Follows with Dr. Wu. Daniela Sanches [facility] Cardiology:Pt states that he had a recent syncopal episode with slurred speech this past Mother's Day. Denies chest pain and palpitations. Does c/o SOB. Did not return back to the hospital as was there month prior with similar episode. Will arrange a 2 week tele monitor and Stress Reg. Daniela Sanches [facility] Cardiology: H is updated medication list for this problem includes: Atorvastatin 40 Mg Tablet (Atorvastatin) ..... Take 1 tablet once a day Lipitor 40 Mg Tablet (Atorvastatin) ..... 1 tablet once a day Daniela Sanches [facility] Cardiology:Will arra jarred PICKARD. BP today: 136/73 P rior BP: 140/70 (08/08/2021) His updated medication list for this problem includes: Amlodipine 5 Mg Tablet (Amlodipine) ..... Take 1 tablet by mouth once daily Lasix 20 Mg Tablet (Furosemide) ..... Take 1 once a day Aspirin 81 Mg Tablet,delayed Release (dr/ec) (Aspirin) ..... 1 tablet by mouth once a day Daniela Ventimilizpaz [facility] Cardiology:Still smo kes 1PPD. The Patient was reencouraged to stop smoking. Daniela Sanches [facility] Telehealth:He has be en having [...] Dr.B Rene Harris MD Cardiology:Ulcers have healed. Sung Harris MD Cardiology:Echo show ed mild aortic [...] PT and DP. Will schedule AIF at [facility]. Rene Harris MD Cardiology New Patie nt :Will order arterial SENSILASE Rene Harris MD Cardiology New Patie nt :current diabetic ulcer on great toe of L foot. HbA1c per pt is 7.0% Rene Harris MD Date Name Stress Regadenoson Complete Echo Carotid Duplex Bilat eral PROTHROMBIN TIME WIT H INR CBC (INCLUDES [...] visit add on Rene Harris MD completed Complex e/m visit add on Rene Harris MD completed Complex e/m visit add on Rene Harris MD completed Complex e/m visit add on Rene Harris MD completed EKG Rene Harris MD completed Complex e/m visit add on Rene Harris MD completed EKG Rene Harris MD completed EKG Rene Harris MD completed
--- OUTSIDE RECORDS SUMMARY | 2024-07-29 09:07 | XMS_ITS | Clinical Summary ---
Author Organization [facility] Address [address] [place] [address] Phone Care Team Providers Care Certifier Name Role Phone Provider, Not On File [...] and at bedtime. Active ergocalciferol (VITAMIN D) 32108 UNIT Capsule Take 50,000 Units by mouth. [...] 7:43 AM CDT Height 180.3 cm (5' 11) 10/03/2022 7:43 AM CDT Body Mass Index [...] this topic Medical Devices Implanted Type Area Printing Film Stripper Device Identifier Shelf Expiration Date Model / Serial / Lot Implant Nasal 16mm Steroid Release Zip Tie Propel Mometasone Furoate 370 Mcg Mini 4mm - [id number] Implanted:Qty: 1 on 10/03/2022 by Lalito Acuña MD at [facility] IMPLANT Left: [employer] 09/28/2023 [id number] / [id number] / [id number] Implant Nasal 16mm Steroid Release Zip Tie Propel Mometasone Furoate 370 Mcg Mini 4mm - [id number] Implanted:Qty: 1 on 10/03/2022 by Lalito Acuña MD at [facility] IMPLANT Right: [employer] 11/09/2023 [id number] / [id number] / [id number] Explanted Type Area Printing Film Stripper Device Identifier Shelf Expiration Date Model / Serial / Lot Implant Nasal 16mm Steroid Release Zip Tie Propel Mometasone Furoate 370 Mcg Mini 4mm - [id number] Explanted:Qty: 1 on 10/03/2022 at [facility] IMPLANT Right: [employer] 09/28/2023 [id number] / [id number] / [id number] Insurance MEDICARE C [employer] Care Teams Certifier Relationship Specialty Start Date End Date Provider, Not On File [place] PCP - General 10/03/22
[2024-07-29 09:18] LABS: Estimated Glomerular Filt Rate 22
== END 2024-07-29 08:55 | disposition home or self-care (01) ==
PROVIDERS: PCP Internal Medicine; Visit Provider Internal Medicine Hematology & Oncology
DX: C22.0 Liver cell carcinoma (principal); K82.4 Cholesterolosis of gallbladder
CPT/HCPCS: 74176

== ENCOUNTER 2024-10-21 09:32 | Outpatient (CLI) | payer MEDICARE, SELFPAY ==
--- OUTSIDE RECORDS SUMMARY | 2024-10-16 06:20 | XMS_ITS ---
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 Name Role Phone Cindy Dhillon [phone] REASON FOR VISIT UDS Medications Medication SIG (Take, Route, Frequency, Duration) Notes Start Date End Date Status hydrOXYzine HCl 50 MG Tablet Oral; Duration: 20 Days Acti ve Tresiba 100 UNIT/ML Solution INJECT 50 UNITS SUBCUTANEOUSLY AT BEDTIME Subcutaneous; Duration: 80 Days Active Zolpidem Tartrate 10 MG Tablet TAKE 1 TABLET BY MOUTH EVERY DAY Oral; Duration: 30 Days Active Fiasp 100 UNIT/ML Solution INJECT 20 UNITS SUBCUTANEOUSLY THREE TIMES DAILY BEFORE MEAL(S) Injection 3 times a day; Duration: 90 days Active Fluticasone Propionate 50 MCG/ACT Suspension USE 2 SPRAY(S) IN EACH NOSTRIL ONCE DAILY Nasal; Duration: 30 Days Active Ferrous Sulfate 325 (65 Fe) MG Tablet 1 tablet Orally Three times a Week Active Albuterol Sulfate HFA 108 (90 Base) MCG/ACT Aerosol Solution Inhalation; Duration: 67 Days Active Atorvastatin Calcium 40 MG Tablet Oral; Duration: 90 Days Acti ve Clopidogrel Bisulfate 75 MG Tablet Oral; Duration: 21 Days Acti ve Cetirizine HCl 10 MG Tablet TAKE 1 TABLET BY MOUTH ONCE DAILY NEEDED Oral; Duration: 30 Days Active Magnesium Oxide 400 MG Tablet 1 tablet with food Orally Once a day Active Pregabalin 50 MG Capsule 1 capsule Orall y Once a day Active Pantoprazole Sodium 40 MG Tablet Delayed Release 1 tablet 1/2 to 1 hour before morning meal Orally Once a day Active Nitroglycerin 0.4 MG Tablet Sublingual 1 tablet under the tongue and allow to dissolve as needed. Take every 5 minutes up to 3 times if chest pain persists Sublingual Three times a day Active Nadolol 40 MG Tablet 1 tablet Orally Onc e a day Active Zolpidem Tartrate 10 MG Tablet TAKE 1 TABLET BY MOUTH EVERY DAY Oral; Duration: 30 Days Active Solifenacin Succinate 5 MG Tablet Oral; Duration: 30 Days Acti ve Lidocaine-Prilocaine 2.5-2.5 % Cream APPLY A DIME SIZE AMOUNT TO PORT ACCESS AREA ONCE WEEKLY External; Duration: 14 Days Active FreeStyle Padmini 3 Plus Sensor - Miscellaneous change sensor every 15 days; Duration: 90 days 07/11/2024 Active Zolpidem Tartrate 10 MG Tablet TAKE 1 TABLET BY MOUTH EVERY DAY Oral; Duration: 30 Days Not-Taking Megestrol Acetate 40 MG/ML Suspension Oral; Duration: 24 Days Active Tresiba 100 UNIT/ML Solution Subcutaneous; Duration: 80 Days Active Metoclopramide HCl 10 MG Tablet 1 tablet before meals Orally Twice a day Active Isosorbide Mononitrate ER 60 MG Tablet Extended Release 24 Hour 1 tablet in the morning Orally Once a day Active Hyoscyamine Sulfate 0.125 MG Tablet 1 tablet as needed Orally every 4 hrs Active Midodrine HCl 5 MG Tablet 1 tablet Orally Twice a day Active Nadolol 20 MG Tablet 2 tablets Orally On ce a day Active Rivaroxaban 20 MG Tablet 1 tablet with f ood Orally Once a day Active Encounters Encounter Location Date Provider Diagnosis [facility] [address] [place] [address] 10/16/2024 Cindy Dhillon care home use of orquidea g Z79.899 Assessments Encounter Date Diagnosis (ICD Code) Assessment Notes Treatment Notes Treatment Clinical Notes Section Notes 10/16/2024 care home use of drug (ICD-10 - Z79.899) Plan Of Treatment Pending Test Test Name Order Date Full Confirmation - Specimen Type Urine 10/16/2024 Presumptive Drug Test - Specimen Type Ur ine 10/16/2024 Next Appt Details Provider Name:Cindy Dhillon, 12:40:00 PM, [address] [place] [address], [phone], History and Physical Notes * HPI (History of Present Illness) Category Sub-Category Detail Notes Category Not es HPI Presumptive UDS ordered to ensure the safety and efficacy of the patient's treatment plan, if the presumptive is inconsistent the test will reflex to a confirmation. This confirmation will provide precise identification and quantification of specific drugs and their metabolites, enabling accurate assessment of the patient's compliance. Detecting possible diversion is crucial for preventing misuse, adjusting the treatment regimen as needed, and ensuring optimal patient outcomes. The confirmatory test will guide appropriate clinical interventions and support the responsible management of controlled medications.See attached results with included risk stratification and medical nessessity statement. Progress Notes * Daniel GUILLENDOB:1955 (69 yo M)Acc No.[id number]:10/16/2024 Patient: Daniel Bazan Provider: Khadijah Dhillon MD :1955 A ge:69 Y S ex:Male Date:10/16/2024 Phone: Address:[address] [place] [address] Subjective: * Chief Complaints: * U DS * HPI: H PI: Presumptive UDS ordered to ensure the safety and efficacy of the patient's treatment plan, if the presumptive is inconsistent the test will reflex to a confirmation. This confirmation will provide precise identification and quantification of specific drugs and their metabolites, enabling accurate assessment of the patient's compliance. Detecting possible diversion is crucial for preventing misuse, adjusting the treatment regimen as needed, and ensuring optimal patient outcomes. The confirmatory test will guide appropriate clinical interventions and support the responsible management of controlled medications.See attached results with included risk stratification and medical nessessity statement. * Medications: T akingRivaroxaban 20 MG Tablet 1 tablet with food Orally Once a day Nadolol 20 MG Tablet 2 tablets Orally Once a day Midodrine HCl 5 MG Tablet 1 tablet Orally Twice a day Metoclopramide HCl 10 MG Tablet 1 tablet before meals Orally Twice a day Isosorbide Mononitrate ER 60 MG Tablet Extended Release 24 Hour 1 tablet in the morning Orally Once a day Hyoscyamine Sulfate 0.125 MG Tablet 1 tablet as needed Orally every 4 hrs Megestrol Acetate 40 MG/ML Suspension Oral Tresiba 100 UNIT/ML Solution Subcutaneous Zolpidem Tartrate 10 MG Tablet TAKE 1 TABLET BY MOUTH EVERY DAY Oral Solifenacin Succinate 5 MG Tablet Oral Lidocaine-Prilocaine 2.5-2.5 % Cream APPLY A DIME SIZE AMOUNT TO PORT ACCESS AREA ONCE WEEKLY External FreeStyle Padmini 3 Plus Sensor - Miscellaneous change sensor every 15 days Pregabalin 50 MG Capsule 1 capsule Orally Once a day Pantoprazole Sodium 40 MG Tablet Delayed Release 1 tablet 1/2 to 1 hour before morning meal Orally Once a day Nitroglycerin 0.4 MG Tablet Sublingual 1 tablet under the tongue and allow to dissolve as needed. Take every 5 minutes up to 3 times if chest pain persists Sublingual Three times a day Nadolol 40 MG Tablet 1 tablet Orally Once a day Magnesium Oxide 400 MG Tablet 1 tablet with food Orally Once a day Ferrous Sulfate 325 (65 Fe) MG Tablet 1 tablet Orally Three times a Week Albuterol Sulfate HFA 108 (90 Base) MCG/ACT Aerosol Solution Inhalation Atorvastatin Calcium 40 MG Tablet Oral Clopidogrel Bisulfate 75 MG Tablet Oral Cetirizine HCl 10 MG Tablet TAKE 1 TABLET BY MOUTH ONCE DAILY NEEDED Oral Fluticasone Propionate 50 MCG/ACT Suspension USE 2 SPRAY(S) IN EACH NOSTRIL ONCE DAILY Nasal hydrOXYzine HCl 50 MG Tablet Oral Tresiba 100 UNIT/ML Solution INJECT 50 UNITS SUBCUTANEOUSLY AT BEDTIME Subcutaneous Zolpidem Tartrate 10 MG Tablet TAKE 1 TABLET BY MOUTH EVERY DAY Oral Fiasp 100 UNIT/ML Solution INJECT 20 UNITS SUBCUTANEOUSLY THREE TIMES DAILY BEFORE MEAL(S) Injection 3 times a day Taking Rivaroxaban 20 MG Tablet 1 tablet with food Orally Once a day Taking Nadolol 20 MG Tablet 2 tablets Orally Once a day Taking Midodrine HCl 5 MG Tablet 1 tablet Orally Twice a day Taking Metoclopramide HCl 10 MG Tablet 1 tablet before meals Orally Twice a day Taking Isosorbide Mononitrate ER 60 MG Tablet Extended Release 24 Hour 1 tablet in the morning Orally Once a day Taking Hyoscyamine Sulfate 0.125 MG Tablet 1 tablet as needed Orally every 4 hrs Taking Megestrol Acetate 40 MG/ML Suspension Oral Taking Tresiba 100 UNIT/ML Solution Subcutaneous Taking Zolpidem Tartrate 10 MG Tablet TAKE 1 TABLET BY MOUTH EVERY DAY Oral Taking Solifenacin Succinate 5 MG Tablet Oral Taking Lidocaine-Prilocaine 2.5-2.5 % Cream APPLY A DIME SIZE AMOUNT TO PORT ACCESS AREA ONCE WEEKLY External Taking FreeStyle Padmini 3 Plus Sensor - Miscellaneous change sensor every 15 days Taking Pregabalin 50 MG Capsule 1 capsule Orally Once a day Taking Pantoprazole Sodium 40 MG Tablet Delayed Release 1 tablet 1/2 to 1 hour before morning meal Orally Once a day Taking Nitroglycerin 0.4 MG Tablet Sublingual 1 tablet under the tongue and allow to dissolve as needed. Take every 5 minutes up to 3 times if chest pain persists Sublingual Three times a day Taking Nadolol 40 MG Tablet 1 tablet Orally Once a day Taking Magnesium Oxide 400 MG Tablet 1 tablet with food Orally Once a day Taking Ferrous Sulfate 325 (65 Fe) MG Tablet 1 tablet Orally Three times a Week Taking Albuterol Sulfate HFA 108 (90 Base) MCG/ACT Aerosol Solution Inhalation Taking Atorvastatin Calcium 40 MG Tablet Oral Taking Clopidogrel Bisulfate 75 MG Tablet Oral Taking Cetirizine HCl 10 MG Tablet TAKE 1 TABLET BY MOUTH ONCE DAILY NEEDED Oral Taking Fluticasone Propionate 50 MCG/ACT Suspension USE 2 SPRAY(S) IN EACH NOSTRIL ONCE DAILY Nasal Taking hydrOXYzine HCl 50 MG Tablet Oral Taking Tresiba 100 UNIT/ML Solution INJECT 50 UNITS SUBCUTANEOUSLY AT BEDTIME Subcutaneous Taking Zolpidem Tartrate 10 MG Tablet TAKE 1 TABLET BY MOUTH EVERY DAY Oral Taking Fiasp 100 UNIT/ML Solution INJECT 20 UNITS SUBCUTANEOUSLY THREE TIMES DAILY BEFORE MEAL(S) Injection 3 times a day Not-TakingZolpidem Tartrate 10 MG Tablet TAKE 1 TABLET BY MOUTH EVERY DAY Oral Not-Taking Zolpidem Tartrate 10 MG Tablet TAKE 1 TABLET BY MOUTH EVERY DAY Oral Assessment: * Assessment: 1. L raffaele term use of drug - Z79.899 (Primary) Plan: * Treatment: * Procedure Codes: 8 0307 DRUG TEST PRS CHEM [id number] Drug test def 1-7 classes Billing Information: * Procedure Codes: 42185 DRUG TEST PRS CHEM ANLYZR. G0480 Drug test def 1-7 classes. * Electronic signature of Burke Dhillon MD on 10/21/2024 at 09:55 AM CDT Sign off status: Pending * Provider: Khadijah Dhillon MD Date: 0 10/16/2024 Generated for Gerhard baker/Jessie/Yin on: 0 10/21/2024 09:55 AM CDT
--- NOTE | ~2024-10-21 | CT_ITS ---
EXAMINATION: CT chest abdomen pelvis wo con, 10/21/2024 9:42 CDT HISTORY: Hepatocarcinoma COMPARISON: Comparison 07/29/2024. Comparison 03/24/2024. TECHNIQUE: CT scan of the chest, abdomen and pelvis was performed without contrast One or more of the following dose reduction techniques were used: automated exposure control, adjustment of the mA and/or kV according to patient size, use of iterative reconstruction technique. Unless otherwise stated, incidental findings do not require dedicated follow up imaging FINDINGS: CT chest: Coronary artery calcifications. ([id number]) LUNGS: No tracheomalacia. No bronchiectasis. Minimal emphysematous changes. There are areas of bullous formation. Minimal pulmonary fibrotic changes. No honeycombing. Apical scarring noted bilaterally. There are scattered minimal foci of groundglass attenuation noted in the lower lungs bilaterally with questionable 1 mm micronodules in the right lower lobe posteriorly some of which demonstrate a tree-in-bud distribution. Pulmonary lymph nodes noted in the gastrohepatic ligament and peripancreatic spaces. HEART AND PERICARDIUM: Within normal limits. AORTA: Calcified atherosclerotic changes of the aorta with stent placement. MEDIASTINUM: Unremarkable. THYROID: The thyroid is unremarkable. CT abdomen: LIVER: Mild nodularity of the liver consistent with cirrhotic disease. SPLEEN: The spleen is prominent with multiple collateral vessels. Spleen measures 14 cm.. KIDNEYS: Right Kidney: Unremarkable. No calculi. No hydronephrosis. Left Kidney: Unremarkable. No calculi. No hydronephrosis ADRENAL GLANDS: Unremarkable. PANCREAS: Moderate atrophy of the pancreas. GALLBLADDER/BILIARY: Cholelithiasis. STOMACH AND ESOPHAGUS: Visualized stomach and esophagus within normal limits. BOWEL/MESENTERY: Moderate fecal content, mild diverticulosis, no colitis or diverticulitis. Appendix not identified. Mesentery normal. No dilated loops of small bowel. RETROPERITONEUM: Unremarkable AORTA/VASCULATURE: Normal caliber aorta. FREE FLUID OR FREE AIR: No free fluid.. CT pelvis: SOLID ORGANS/REPRODUCTIVE: Unremarkable. BLADDER: Within normal limits. LYMPHADENOPATHY: No lymphadenopathy. OSSEOUS STRUCTURES: No sclerotic or lytic lesions. 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 OVERLYING SOFT TISSUES: Right Mediport. Postsurgical changes abdominal wall. IMPRESSION: 1. Nonspecific areas of groundglass attenuation of the lungs bilaterally probably infectious. Correlate for symptoms of bronchopneumonia. Follow-up suggested to assess resolution. 2. Stable cirrhotic disease of the liver with sequelae of portal venous hypertension and mild splenomegaly. Absence of contrast limits evaluation but no gross liver lesion identified. Reviewed, dictated and finalized at location A. IMPRESSION: 1. Nonspecific areas of groundglass attenuation of the lungs bilaterally probab ly infectious. Correlate for symptoms of bronchopneumonia. Follow-up suggested to assess resolution. 2. Stable cirrhotic disease of the liver with sequelae of portal venous hyperte nsion and mild splenomegaly. Absence of contrast limits evaluation but no gross liver lesion identified.
--- OUTSIDE RECORDS SUMMARY | 2024-10-21 09:55 | XMS_ITS | Patient Health Record ---
Author Organization [facility] Address [address] [facility] AYUSH Goss [id number] Care Team Providers Care Deputy Director Of Finance Name Role Phone Cindy Dhillon [phone] Allergies No Known Allergies Reason For Referral No Information Medications Medication SIG (Take, Route, Frequency, Duration) Notes Start Date End Date Status Clopidogrel Bisulfate 75 MG Tablet Oral; Duration: 21 Days Acti ve Cetirizine HCl 10 MG Tablet TAKE 1 TABLET BY MOUTH ONCE DAILY NEEDED Oral; Duration: 30 Days Active Nadolol 20 MG Tablet 2 tablets Orally On ce a day Active Fluticasone Propionate 50 MCG/ACT Suspension USE 2 SPRAY(S) IN EACH NOSTRIL ONCE DAILY Nasal; Duration: 30 Days Active Magnesium Oxide 400 MG Tablet 1 tablet with food Orally Once a day Active Ferrous Sulfate 325 (65 Fe) MG Tablet 1 tablet Orally Three times a Week Active Albuterol Sulfate HFA 108 (90 Base) MCG/ACT Aerosol Solution Inhalation; Duration: 67 Days Active Atorvastatin Calcium 40 MG Tablet Oral; Duration: 90 Days Acti ve Pregabalin 50 MG Capsule 1 capsule Orall [...] tablet Orally Onc e a day Active Rivaroxaban 20 MG Tablet 1 tablet with f ood Orally Once a day Active Lidocaine-Prilocaine 2.5-2.5 % Cream APPLY A DIME SIZE AMOUNT TO PORT ACCESS AREA ONCE WEEKLY External; Duration: 14 Days Active FreeStyle Padmini 3 Plus Sensor - Miscellaneous change sensor every 15 days; Duration: 90 days 07/11/2024 Active Megestrol Acetate 40 MG/ML Suspension Oral; Duration: 24 Days Active Tresiba 100 UNIT/ML Solution Subcutaneous; Duration: 80 Days Active Zolpidem Tartrate 10 MG Tablet TAKE 1 TABLET BY MOUTH EVERY DAY Oral; Duration: 30 Days Active Solifenacin Succinate 5 MG Tablet Oral; Duration: 30 Days Acti ve Midodrine HCl 5 MG Tablet 1 tablet Orally Twice a day Active hydrOXYzine HCl 50 MG Tablet Oral; Duration: 20 Days Acti ve Metoclopramide HCl 10 MG Tablet 1 tablet before meals Orally Twice a day Active Tresiba 100 UNIT/ML Solution INJECT 50 UNITS SUBCUTANEOUSLY AT BEDTIME Subcutaneous; Duration: 80 Days Active Isosorbide Mononitrate ER 60 MG Tablet Extended Release 24 Hour 1 tablet in the morning Orally Once a day Active Zolpidem Tartrate 10 MG Tablet TAKE 1 TABLET BY MOUTH EVERY DAY Oral; Duration: 30 Days Active Hyoscyamine Sulfate 0.125 MG Tablet 1 tablet as needed Orally every 4 hrs Active Fiasp 100 UNIT/ML Solution INJECT 20 UNITS SUBCUTANEOUSLY THREE TIMES DAILY BEFORE MEAL(S) Injection 3 times a day; Duration: 90 days Active Zolpidem Tartrate 10 MG Tablet TAKE 1 TABLET BY MOUTH EVERY DAY Oral; Duration: 30 Days Not-Taking Social History Section Notes: 1 pack of tobacco a day 1 pack of tobacco a day Problems Problem Type SNOMED Code ICD Code Onset Dates Problem Status W/U Status Risk Notes Problem Hyperglycemia due to type 2 diabetes mellitus (487583666917290) Type 2 diabetes mellitus with hyperglycemia (E11.65) Active confirmed Problem Mixed hyperlipidemia (262700307) Mixed hyperlipidemia (E78.2) Active confirmed Problem Chronic fatigue syndrome (disorder) (83987806) Chronic fatigue, unspecified (R53.82) Active confirmed Problem Long-term current use of insulin (695823994) intermission coordinator (current) use of insulin (Z79.4) Active confirmed Problem Hepatocellular carcinoma (07091226) Hepatocellular carcinoma (C22.0) Active confirmed Problem Chronic kidney disease stage 3A (694354697) Stage 3a chronic kidney disease (N18.31) Active confirmed Vital Signs Heart Rate 94 /min 10/16/2024 Height-cm 180.34 cm 10/16/2024 Oximetry 97 % 10/16/2024 Blood pressure diastolic 64 mm Hg 10/16/2024 Weight-kg 75.48 kg 10/16/2024 Height 71 in 10/16/2024 Blood pressure systolic 122 mm Hg 10/16/2024 Weight 166.4 lbs 10/16/2024 BMI 23.21 kg/m2 10/16/2024 Encounters Encounter Location Date Provider Diagnosis AMMO [facility] [address] [place] [address] 10/16/2024 Cindy Dhillon [facility] use of orquidea g Z79.[address] Dhillon [address] [place] [phone] 07/11/2024 Cindy Dhillon Type 2 diabetes josey itus with hyperglycemia E11.65 ; intermission coordinator (current) use of insulin Z79.4 ; Mixed hyperlipidemia E78.2 ; Stage 3a chronic kidney disease N18.31 ; Hepatocellular carcinoma C22.0 ; Dietary counseling and surveillance Z71.3 and Chronic fatigue, unspecified R53.[address] Dhillon [id number] [place] [phone] 10/16/2024 Cindy Dhillon Type 2 diabetes josey itus with hyperglycemia E11.65 ; intermission coordinator (current) use of insulin Z79.4 ; Mixed hyperlipidemia E78.2 ; Stage 3a chronic kidney disease N18.31 and Dietary counseling and surveillance Z71.[address] Dhillon [id number] [place] [phone] 09/30/[address] Dhillon [address] [place] [phone] 10/01/2024 Cindy Dhillon Assessments Encounter Date Diagnosis (ICD Code) Assessment Notes Treatment Notes Treatment Clinical Notes Section Notes 07/11/2024 Type 2 diabetes mellitus with hyperglycemia (ICD-10 - E11.65) 07/11/2024 [facility] (current) use of insulin (ICD-10 - Z79.4) 10/16/2024 Type 2 diabetes mellitus with hyperglycemia (ICD-10 - E11.65) 10/16/2024 intermission coordinator use of drug (ICD-10 - Z79.899) 10/16/2024 intermission coordinator (current) use of insulin (ICD-10 - Z79.4) 07/11/2024 Mixed hyperlipidemia (ICD-10 - E78.2) 10/16/2024 Mixed hyperlipidemia (ICD-10 - E78.2) 07/11/2024 Stage 3a chronic kidney disease (ICD-10 - N18.31) 07/11/2024 Hepatocellular carcinoma (ICD-10 - C22.0) 10/16/2024 Stage 3a chronic kidney disease (ICD-10 - N18.31) 10/16/2024 Dietary counseling and surveillance (ICD-10 - Z71.3) Spent 15 minutes preventative counseling patient on dietary recommendations and changes in setting of hyperglycemia- need to restrict refined sugars and processed foods and incorporate up to 150 minutes of moderate level activity weekly. 07/11/2024 Dietary counseling and surveillance (ICD-10 - Z71.3) Spent 15 minutes preventative counseling patient on dietary recommendations and changes in setting of hyperglycemia- need to restrict refined sugars and processed foods and incorporate up to 150 minutes of moderate level activity weekly. 07/11/2024 Chronic fatigue, unspecified (ICD-10 - R53.82) 07/11/2024 Other Assessment and Plan: 1. Type 2 Diabetes Mellitus- Continue Tresiba 30 units subcutaneously daily- Continue Fiasp 5-10 units subcutaneously before meals- Initiate Freestyle Padmini 3 continuous glucose monitoring system-patient educated and sensor placed- Patient educated on application, removal, and use- Sensor to be changed every 15 days, alternating arms- During cancer treatments: - Double or triple Fiasp dose as needed - Monitor glucose levels closely with CGM- Follow up in 3 months (September)- Call if blood glucose levels are difficult to manage or other concerns arise 2. Liver Cancer- Continue current immunotherapy regimen (monthly)- Monitor blood glucose levels during treatments due to steroid-induced hyperglycemia 3. Cardiovascular Disease- Consider initiating Ozempic for cardiovascular benefit, given recent heart attack and stroke history- Discuss risks, benefits, and alternatives with patient at next visit- Continue current cardiovascular medications- Monitor blood pressure regularly 4. Chronic Kidney Disease- Continue follow-up with Dr. Washington for kidney disease management- Continue erythropoietin injections for anemia as prescribed by labor utilization superintendent 5. Tobacco Use- Rouge Miller on smoking cessation and its importance, especially with multiple comorbidities- Offer smoking cessation resources if patient becomes interested in quitting 6. Decreased Appetite and Energy- Continue Megestrol as prescribed for appetite stimulation- Encourage regular, balanced meals to maintain energy levels- Monitor weight and nutritional status Spent 45 minutes preparing to see the patient (ex review of tests/chart), obtaining and / or reviewing separately obtained history, performing a medically appropriate examination and/or evaluation, counseling and educating the patient/family/car egiver, ordering medications, tests, or procedures, referring and communicating with other health emergency care attendant, documenting clinical information in the electronic or other health record, independently interpreting results and communicating results to the patient/family/car egiver and care coordinating patient plan. Patient alert and oriented x 4 and aware of discussion noted above and in agreeance to plan in management of type 2 DM/controlled, senior care use of insulin/CGM need, mixed hyperlipidemia, stage 3 CKD, and liver cancer. 10/16/2024 Other Patient tolerated placement of freestyle padmini 3 sensor without site reaction or complication. Settings placed at 80 mgdL up to 180 mg/dL for alarm. He/She is aware to change sensor every 15 days and aware to reach out to clinic if any questions or concerns. Placed on left arm, will monitor BG for 3 months prior to return visit. CGM average at 120 mg/dL with rare hypoglycemia and 80% in range. Daniel is a patient with a history of diabetes mellitus and liver cancer, presenting for follow-up of diabetes management and discussion of recent immunotherapy treatment. Diabetes Mellitus Type 2Assessment: Patient's glycemic control has improved with A1c at 6.6%. Current insulin regimen includes Tresiba (insulin degludec) 10 units daily and Fiasp (insulin aspart) up to 50 units per day as needed. Fasting blood glucose levels are reported around 120-130 mg/dL. Patient experienced hyperglycemia (400-500 mg/dL) while on steroids for pruritus management. No recent episodes of hypoglycemia reported.Plan:- Continue Tresiba 10 units subcutaneously daily- Continue Fiasp up to 50 units subcutaneously per day as needed- Monitor fasting blood glucose levels- Provided samples of Freestyle Padmini continuous glucose monitoring sensors- Instructed patient on proper sensor application and troubleshooting- Follow up in 3-4 months Hepatocellular CarcinomaAssessmen t: Patient is undergoing monthly immunotherapy for liver cancer. Treatment is associated with fatigue lasting 1-2 days post-administratio n. Despite the cancer diagnosis, liver function tests remain within normal limits.Plan:- Continue current immunotherapy regimen as prescribed by oncology- Monitor for treatment side effects and tolerance- Maintain communication with oncology team regarding diabetes management Urinary UrgencyAssessment: Patient reports increased urinary urgency following bladder surgery. Recently started on medication by urologist to manage symptoms. Concern for potential medication-induced hypernatremia, with sodium levels noted to be slightly elevated on recent labs.Plan:- Monitor sodium levels, noting scheduled blood test next Sunday- Await results of upcoming blood test- Coordinate care with urologist regarding medication management and impact on electrolytes Continuous Glucose Monitoring (CGM) Device IssuesAssessment: Patient experiencing technical difficulties with Freestyle Padmini CGM system. Reports frequent signal loss and potentially defective sensors from the most recent batch.Plan:- Provided 4 new Freestyle Padmini sensors- Instructed patient on proper sensor application and troubleshooting- Advised patient to seek assistance from a tech-savvy individual if problems persist- Recommended contacting Freestyle Padmini customer support for further assistance and replacement of defective sensors Spent 25 minutes preparing to see the patient (ex review of tests/chart), obtaining and / or reviewing separately obtained history, performing a medically appropriate examination and/or evaluation, counseling and educating the patient/family/car egiver, ordering medications, tests, or procedures, referring and communicating with other health emergency care attendant, documenting clinical information in the electronic or other health record, independently interpreting results and communicating results to the patient/family/car egiver and care coordinating patient plan. Patient alert and oriented x 4 and aware of discussion noted above and in agreeance to plan in management of well controlled type 2 DM/insulin requiring due to CKD and liver cancer history, mixed dyslipidemia. Plan Of Treatment Pending Test Test Name Order Date .COMPREHENSIVE METABOLIC PANEL (86576) C MP 07/11/2024 .LIPID PANEL, STANDARD (7600) 07/11/2024 .ALBUMIN, RANDOM URINE W/CREATININE (651 7) 07/11/2024 .CBC (INCLUDES DIFF/PLT) (6399) 07/12/19 25 .HEMOGLOBIN A1c (496) 07/11/2024 C-PEPTIDE (372) 07/11/2024 T4, FREE (866) 07/11/2024 TSH (899) 07/11/2024 T3, FREE (39438) 07/11/2024 Full Confirmation - Specimen Type Urine 10/16/2024 Presumptive Drug Test - Specimen Type Ur ine 10/16/2024 Next Appt Details Provider Name:Cindy Dhillon, 12:40:00 PM, [address] [place] [address], [place], [address], Insurance Providers Payer Name Payer Address Payer Phone Subscriber Number Group Number Insured Name Patient Relationship to Insured Coverage Start Date Coverage End Date [facility] [address] [address] [place] [address] [id number] Daniel Treviño Self - patient is the insured Medical (General) History Medical History History ICD Code diabeties
--- OUTSIDE RECORDS SUMMARY | 2024-10-21 09:55 | XMS_ITS | Encounter Summary ---
Author Organization [facility] Address [address] [place] [address] Care Team Providers Care Trapeze Performer Name Role Phone Shay Hooper MD Primary Care Provider Encounter Details Date Type Department Care Team (Late st Contact Info) Description 08/01/2018 [facility] Outpatient Visit [facility] [address] [place] [address] [place] [address] [phone] Social History Tobacco Use Types Packs/Day Years Used Date Smoking Tobacco: Every Day Cigarettes Smokeless Tobacco: Never Alcohol Use Standard Drinks/Week Comments Yes 0 (1 standard drink = 0.6 oz pur e alcohol) RARE Sex and Gender Information Value Date Recorded Sex Assigned at Not on file 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 Gender Identity Not on file Sexual Orientation Not on file documented as of this encounter Plan of Treatment Upcoming Encounters Date Type Department Care Team (Late st Contact Info) Description 05/08/2025 11:00 AM CDT Office Visit [facility] [address] [facility] [place] [phone] Phyllis Pereira, DINING ROOM CASHIER-MANAGER NON PROFIT [address] [facility] [address] [place] [address] documented as of this encounter Visit Diagnoses Not on filedocumented in this encounter Care Teams Trapeze Performer Relationship Specialty Start Date End Date Shay Hooper MD [address] [phone] PCP - General Internal Medicine 11/14/17 documented as of this encounter
--- OUTSIDE RECORDS SUMMARY | 2024-10-21 09:55 | XMS_ITS | Clinical Summary ---
Author Organization [facility] Rika Molina Address [address] [place] [address] Care Team Providers Care Web Worker Name Role Phone Shay [place] MD [...] for nausea 20 Tablet 08/07/19 24 Active ondansetron (ZOFRAN) 8 mg Tablet Take 1 Tablet (8 mg) by mouth every 8 hours as needed for Nausea/Emesis. 30 Tablet 1 09/03/19 24 Active rivaroxaban (Xarelto) 20 mg Tablet Take 1 Tablet (20 mg) by mouth daily. 30 Tablet 4 11/22/19 24 Active clopidogreL (PLAVIX) 75 mg Tablet take 1 tablet by mouth in the morning Active isosorbide mononitrate (IMDUR) 60 mg Extended Release 24 hour tablet take 1 tablet by mouth in the morning Active nitroglycerin (NITROSTAT) 0.4 mg Tablet, Sublingual nitroglycerin 0.4 mg tablet, sublingual 01/23/20 24 Active nadoloL (CORGARD) 40 mg tablet Take 40 mg by mouth daily. 05/17/19 24 Active nitrofurantoin (MACROBID) 100 mg capsule Take 100 mg by mouth 2 times daily. 04/09/19 25 Active solifenacin (VESICARE) 5 mg Tablet Take 5 mg by mouth daily. 04/09/19 25 Active megestroL (MEGACE) 400 mg/10 mL (40 mg/mL) suspension TAKE 10 ML BY MOUTH ONCE DAILY 240 mL 07/29/19 25 Active hydrOXYzine HCL (ATARAX) 50 mg tablet TAKE 1 TABLET BY MOUTH EVERY 8 HOURS NEEDED FOR ITCHING 60 Tablet 09/09/19 25 Active Active Problems No known active problems Encounters Date Type Department Care Team Description 10/13/2024 Orders Only [facility] [place] [address] Luna [address] Tommy Cassidy MD Hepatocarcinoma (CMS/HCC) 10/09/2024 Telephone [facility] [place] [address] [place] [phone] Tommy Cassidy MD Jury Duty letter 10/08/2024 Orders Only [facility] [place] [address] Tracy [address] [place] [phone] Tommy Cassidy MD 09/29/2024 Orders Only [facility] [place] [address] [place] [phone] Tommy Cassidy MD Hepatocarcinoma ([facility]/HCC) 09/23/2024 Orders Only [facility] [place] [address] [place] [address] Tommy Cassidy MD 09/22/2024 Orders Only [facility] [place] [address] [place] [address] Tommy Cassidy MD Benign hypertension 09/19/2024 Orders Only [facility] [place] [address] [place] [phone] Tommy Cassidy MD 09/18/2024 Orders Only [facility] [place] [address] [place] [phone] Tommy Cassidy MD 09/16/2024 9:45 AM CDT Office Visit [facility] [place] [address] Tommy Cassidy MD Hepatocarcinoma (CMS/HCC) (Primary Dx) 09/15/2024 Orders Only [facility] [place] [address] Tommy Cassidy MD Hepatocarcinoma (CMS/HCC) 09/12/2024 Orders Only [facility] [place] [address] Tommy Cassidy MD 09/08/2024 Refill [facility] [place] [address] Tommy Cassidy MD 09/08/2024 Orders Only [facility] [place] [address] Tracy Luna [address] [place] [phone] Tommy Cassidy MD Benign hypertension 09/01/2024 Orders Only [facility] [place] [address] [place] [phone] Tommy Cassidy MD Hepatocarcinoma ([facility]/HCC) 08/27/2024 [facility] and [facility] - [place] [address] [place] [address] Tommy Cassidy MD 08/25/2024 [facility]ology - [place] [address] [place] [address] Tommy Cassidy MD Benign hypertension 08/22/2024 Orders [facility]ology - [place] [address] [place] [address] Tommy Cassidy MD 08/21/2024 [facility] and [facility]ology - [place] [address] [place] [phone] Tommy Cassidy MD 08/19/2024 Orders Only [facility] - [place] [address] [place] [phone] Tommy Cassidy MD 08/18/2024 Orders Only [facility] - [place] [address] [place] [phone] Tommy Cassidy MD Hepatocarcinoma (CMS/HCC) 08/11/2024 Orders Only [facility] - [place] [address] Tommy Cassidy MD Benign hypertension 08/06/2024 Orders Only [facility] - [place] [address] [place] [address] Tommy Cassidy MD 08/05/2024 9:45 AM CDT [facility] - [place] 7 Tracy [address] [place] [address] Tommy Cassidy MD Hepatocarcinoma ([facility]/HCC) (Primary Dx) 08/05/2024 Orders Only [facility] - [place] [address] [place] [phone] Tommy Cassidy MD 08/04/2024 Orders Only [facility] - [place] [address] [place] [address] Tommy Cassidy MD Hepatocarcinoma (CMS/HCC) 08/01/2024 Orders Only [facility] - [place] [address] [place] [address] Tommy Cassidy MD 07/31/2024 Orders Only [facility] - [place] [address] [place] [address] Tommy Cassidy MD 07/28/2024 Refill [facility] [place] [address] [place] [address] Tommy Cassidy MD 07/28/2024 Orders Only [facility] [place] [address] [place] [address] Tommy Cassidy MD Benign hypertension 07/23/2024 Orders Only [facility] [place] [address] [place] [address] Tommy Cassidy MD 07/21/2024 Orders Only [facility] [place] [address] [place] [address] Tommy Cassidy MD Hepatocarcinoma (CMS/HCC) from Last 3 Months Family History Relation [...] Sign Reading Time Taken Comments Blood Pressure 130/63 09/16/2024 9:57 AM CDT Pulse 87 09/16/2024 9:57 AM CDT Temperature 36.2 C (97.1 F) 09/16/2024 9:57 AM CDT Respiratory Rate 16 09/16/2024 9:57 AM CDT Oxygen Saturation 94% 09/16/2024 9:57 AM CDT Inhaled Oxygen Concentration - - Weight 76 kg (167 lb 9.6 oz) 09/16/2024 9:57 AM CDT Height 180.3 cm (5' 11) 04/09/2023 8:51 AM [facility] Body Mass Index 23.38 04/09/2023 8:51 AM [facility] Plan of Treatment Upcoming Encounters Date Type Department Care Team (Late st Contact Info) Description 11/14/2024 9:30 AM CDT Office Visit [facility] - Home [address] [facility] Jeremy [address] [place] [address] Tommy Cassidy MD [address] [facility] [address] [place] [address] Health Maintenance Due Date Last Done Comments DIABETES ANNUAL FOOT EXAM 05/05/1973 DIABETES ANNUAL RETINAL EXAM 05/05/1973 DIABETES MICROALBUMIN ANNUAL SCREEN 05/05/1973 LDL CHOLESTEROL ANNUAL 05/05/1973 PNEUMOCOCCAL VACCINE 50+ YEA RS (1 of 2 - PCV) 05/05/1974 COLORECTAL SCREENING 05/05/2000 Colorectal Cancer Screening 05/05/2000 FIT-DNA Q 3 years 05/05/2000 FIT/FOBT Q 1 year 05/05/2000 Flex Sig/CT Colonography Q 5 years 05/05/2000 ZOSTER VACCINE (1 of 2) 05/05/2005 RSV VACCINE (60+ or ) (1 - Risk 60-74 years 1-dose series) 2015 DIABETES HBA1C Q 6 MONTHS 03/21/2018 09/18/2017 Medicare [place] ([place] Prev entative Visit/Annual Wellness Visit 02/27/2024 11/15/2023, 09/19/2022 INFLUENZA VACCINE (#1) 2024 DTAP/TDAP/TD VACCINES (2 - Td or Tdap) 02/06/2027 Abdominal Aortic Aneurysm (AAA) Screening Completed 07/29/2024 Medical Devices Implanted Type Area Four Corner Stayer Machine Operator Device Identifier Shelf Expiration Date Model / Serial / Lot Stents Bilateral Legs Procedures Procedure Name Priority Date/Time Associated Diagnosis Comments CBC WITH AUTODIFFERENTIAL Routine 2024 12:35 PM CDT BASIC METABOLIC PANEL Routine 09/19/2024 1:50 PM CDT COMPREHENSIVE METABOLIC PANEL Routine 09/19/2024 1:06 PM CDT BASIC METABOLIC PANEL Routine 09/16/2024 2:21 PM CDT CBC WITH AUTODIFFERENTIAL Routine 2024 2:09 PM CDT CBC WITH DIFFERENTIAL Routine 09/10/2024 2:48 PM CDT BASIC METABOLIC PANEL Routine 08/22/2024 1:20 PM CDT CBC WITH DIFFERENTIAL Routine 08/22/2024 1:15 PM CDT COMPREHENSIVE METABOLIC PANEL Routine 08/22/2024 7:20 AM CDT CBC WITH DIFFERENTIAL Routine 08/20/2024 3:02 PM CDT CBC WITH DIFFERENTIAL Routine 08/13/2024 5:18 PM CDT BASIC METABOLIC PANEL Routine 08/05/2024 1:19 PM CDT CBC WITH AUTODIFFERENTIAL Routine 2024 1:17 PM CDT COMPREHENSIVE METABOLIC PANEL Routine 08/05/2024 10:[address] ABDOMEN PELVIS WO CONTRAST Routine 07/29/2024 11:05 AM CDT CBC WITH DIFFERENTIAL Routine 07/23/2024 4:19 PM CDT from Last 3 Months Results * CBC WITH AUTODIFFERENTIAL (10/08/2024 12:35 PM CDT) Only the most recent of3 resultswithin the time period is included. Blood us Tommy Cassidy MD HEMATOLOGY ORDERABLES Final Res ult * BASIC METABOLIC PANEL (09/19/2024 1:50 PM CDT) Only the most recent of4 resultswithin the time period is included. Blood us Tommy Cassidy MD CHEMISTRY ORDERABLES Final Resu lt * COMPREHENSIVE METABOLIC PANEL (09/19/2024 1:06 PM CDT) Only the most recent of3 resultswithin the time period is included. Blood us Tommy Cassidy MD CHEMISTRY ORDERABLES Final Resu lt * CBC WITH DIFFERENTIAL (09/10/2024 2:48 PM CDT) Only the most recent of5 resultswithin the time period is included. Blood us Tommy Cassidy MD HEMATOLOGY ORDERABLES Final Res ult * CT ABDOMEN PELVIS WO CONTRAST (07/29/2024 11:05 AM CDT) Anatomical Region Laterality Modality Abdomen Computed Tomogra phy us Tommy Cassidy MD CT ORDERABLES Final Result from Last 3 Months Insurance Advance Directives For more information, please contact: [phone] * Full Code (Latest Code Status on File) Date Activated Date Inactivated Comments 04/04/2023 11:13 AM 04/04/2023 6:32 PM Care Teams Web Worker Relationship Specialty Start Date End Date Shay Ho[place] MD PCP - General Internal Medicine 01/01/23
--- OUTSIDE RECORDS SUMMARY | 2024-10-21 09:55 | XMS_ITS | Encounter Summary ---
Author Organization [facility] Address [address] [place] [address] Care Team Providers Care Can Line Operator Name Role Phone Shay [place] MD Primary Care Provider Encounter Details Date Type Department Care Team (Late st Contact Info) Description 10/23/2018 Lab Requisition [facility] Care Pathology Lab [address] [place] [address] Luna Hernandez MD [address] [place] [address] Illness Social History Tobacco Use Types Packs/Day Years Used Date Smoking Tobacco: Every Day Cigarettes Smokeless Tobacco: Never Alcohol Use Standard Drinks/Week Comments Yes 0 (1 standard drink = 0.6 oz pur e alcohol) RARE Sex and Gender Information Value Date Recorded Sex Assigned at Not on file 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 Answer Date of Assessment Author No 08/08/2018 8:55 AM Kennedy Rudolph RN * Is person blind or have serious difficulty seeing? Answer Date of Assessment Author No 08/08/2018 8:55 AM Kennedy Rudolph RN * Does person have serious difficulty walking/climbing stairs? Answer Date of Assessment Author No 08/08/2018 8:55 AM Kennedy Rudolph RN * Does person have difficulty dressing/bathing? Answer Date of Assessment Author No 08/08/2018 8:55 AM CDT Kennedy Childers RN * Does person have difficulty doing errands alone? Answer Date of Assessment Author No 08/08/2018 8:55 AM CDT Kennedy Childers RN documented as of this encounter Mental Status * Does person have difficulty concentrating/remembering/making decisions? Answer Entry Date Author No 08/08/2018 8:55 AM CDT Kennedy Childers RN documented in this encounter Plan of Treatment Upcoming Encounters Date Type Department Care Team (Late st Contact Info) Description 05/08/2025 11:00 AM CDT Office Visit [facility] [place] [address] [facility], [place] [phone] Phyllis Pereira, MOTION PICTURE OPERATOR-BEHAVIORAL HEALTH CARE COORDINATOR [address] [facility] [place] [address] documented as of this encounter Procedures Procedure Name Priority Date/Time Associated Diagnosis Comments PATHOLOGY TISSUE Routine 10/22/2018 3:19 PM CDT Illness documented in this encounter Results * PATHOLOGY TISSUE (10/22/2018 3:19 PM CDT) Case Report Surgical Pathology Report Case: [id number] Authorizing Provider: Luna Hernandez MD Collected: 10/22/2018 03:19 PM Ordering Location: [facility] Pathology Lab Received: 10/23/2018 03:19 PM Pathologist: Floyd Rodriguez MD Specimen: Slide Consultation, [id number] 10/24/2018 10:17 AM CDT [facility] Final Diagnosis Urine, voided, thin prep, cytology: -Negative for high-grade urothelial neoplasia -Slight chronic inflammtion 10/24/2018 10:17 AM CDT [facility] at 1017 CDT Microscopic Description and Comment Performed. 10/24/2018 10:17 AM CDT [facility] Clinical History History of bladder cancer, cystoscopy negative. 10/24/2018 10:17 AM CDT [facility] PATH[facility] Gross Description Prepared slides received from [facility] labeled [id number]. All material will be returned. 10/24/2018 10:17 AM T [facility] PATHOLOGY LAB Disclaimer The performance characteristics of all immunohistochemical and indirect immunofluorescence stains (if any) cited in this report were determined by the Histopathology Laboratory of [facility]. Some of these tests were [...] the attending (teaching) pathologist. 10/24/2018 10:17 AM T [facility] PATHOLOGY LAB Embedded Images 10/24/2018 10:17 AM T [facility] PATHOLOGY LAB Pathology/Cytolo gy SURGICAL PATHOLOGY CONSULTATION AND REPORT ON REFERRED SLIDES PREPARED ELSEWHERE / Unknown 10/22/2018 3:19 PM CDT 10/23/2018 3:19 PM CDT us Luna Hernandez MD LAB - PATHOLOGY/CYTOLOGY ORDERAB LES Final Result Performing Organization Address City/State/[facility] Co de Phone Number [facility] PATHOLOGY LAB [address] [phone] documented in this encounter Visit Diagnoses Diagnosis Illness Other unknown and unspecified cause of morbidity or mortality documented in this encounter Care Teams Can Line Operator Relationship Specialty Start Date End Date Shay Hooper MD [address] [phone] PCP - General Internal Medicine 11/14/17 documented as of this encounter
--- OUTSIDE RECORDS SUMMARY | 2024-10-21 09:55 | XMS_ITS | Clinical Summary ---
Author Organization [facility] Address [address] [place] [address] Care Team Providers Care Combination Machine Tool Setter Name Role Phone Shay [place] MD Primary Care Provider Source Comments [facility],non-owned Affiliates and Associated Physician Practices is amultiple site organization consisting of ambulatory clinics and hospital sitesin [place], [place], [place] and [place]. This disclosure is being madepursuant to the Care Everywhere program and may not contain all information available regarding this patient. Last updated 17.[facility] Allergies Active Allergy Reactions Criticality Noted Date [...] infarction 08/07/2018 Alcoholic cirrhosis of liver 11/14/2017 Family History Medical History Relation Name Comments CAD (Coronary Artery Disease) Father CVA Father CVA Sister Cancer - Breast Sister Relation Name Status Comments Brother Father Mother Sister Alive Social History Tobacco Use Types Packs/Day Years Used Date Smoking Tobacco: Every Day Cigarettes 1 12.6 Started: 2012 Smokeless Tobacco: Never Tobacco Cessation:Ready to Q uit: Not Asked; Counseling Given: Not Answered Alcohol Use Standard Drinks/Week Comments Not Currently 0 (1 standard drink = 0.6 oz pur e alcohol) ocassional beer/nahid Sex and Gender Information Value Date Recorded Sex Assigned at Not on file 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 [place] [address] Phyllis Pereira, CURRICULUM DEVELOPMENT SPECIALIST-COLLATOR [address] [facility] [place] [address] Health Maintenance Due Date Last Done Comments [...] MEDICARE AWV CALENDAR YEAR 2024 INFLUENZA VACCINE (#1) 2024 SCREENING FOR DIABETES 04/09/2026 , 04/04/2023, 03/29/2023, Additional history exists HIB VACCINE [...] General On track( 025 12:09 PM CDT) Rogelio Lopes, RN Note: Expected end date: Interventions: Take all medications as prescribed Let your doctor know right away about any changes in your medications Make sure to request a refill of your medication at least one week prior to your last dose Safety General On track( 025 12:09 PM CDT) Edita Busch, RN Note: Expected end date: ongoing Interventions: [...] the bathroom Medical Devices Implanted Type Area Calibrator Barometers Device Identifier Shelf Expiration Date Model / Serial / Lot Patch Tien Eptfe 1 X 9 X .5mm - [id number] Implanted:Qty: 1 on 08/07/2018 by Angelo Wu MD at [facility] Right: Carotid [employer] 05/30/2023 [id number] / [id number] / Procedures Procedure Name Priority Date/Time Associated Diagnosis Comments GLUCOSE - POINT OF CARE Routine 08/08/2018 7:16 AM CDT from Last 3 Months or Most Recently Relevant to Health Maintenance Results * (ABNORMAL) GLUCOSE - POINT OF CARE (08/08/2018 7:16 AM CDT) Glucose WB/POC 265(H) 70 - 106 mg/dL 08/08/2018 8:34 AM CDT [facility] Specimen Type Venous 08/08/2018 8:34 AM CDT [facility] Blood BLOOD SPECIMEN / Unknown 08/08/2018 7:16 AM CDT 08/08/2018 8:34 AM CDT Narrative [facility] - 08/08/2018 8:34 AM CDT (2) Provider Notified us Angelo Wu MD LAB - POINT OF CARE ORDERABL ES Final Result [facility] [address] [place] [address] from Last 3 Months or Most Recently Relevant to Health Maintenance Insurance [employer] MEDICARE ADV HMO & PPO Member Subscriber Plan / Payer (Ef fective 2022-Present) Name:Jack Treviño Relation to Subscriber:Self Name:Jack Treviño Payer ID:[id number] (NAIC) Type:Medicare-Managed Care Address: [place] [phone] [employer] SELF PAY NO INSURANCE Member Subscriber Plan / Payer (Ef fective for All Dates) Name:Jack Treviño Member ID:Not on file Relation to Subscriber:Not on file Name:JACK TREVIÑO Subscriber ID:Not on file (Home) Address: [address] [place] [address] Payer ID:Not on file Group ID:Not on file Type:Self Pay Address: [place], [place] [employer] MEDICARE ADV HMO & PPO [employer] MEDICARE ADV HMO & PPO Advance Directives * Full Code (Latest Code Status on File) Date Activated Date Inactivated Comments 08/07/2018 5:20 PM 08/08/2018 1:06 PM Care Teams Combination Machine Tool Setter Relationship Specialty Start Date End Date Shay [place] MD [address] [facility] [address] [place] [address] PCP - General Internal Medicine 11/14/17
--- OUTSIDE RECORDS SUMMARY | 2024-10-21 09:55 | XMS_ITS | Encounter Summary ---
Author Organization [facility] Address [address] [place] [address] Care Team Providers Care Senior Geologist Name Role Phone Shay [place] MD Primary Care Provider Encounter Details Date Type Department Care Team (Late Contact Info) Description 08/01/2018 [facility] Outpatient Visit [facility] [address] [place] [address] [place] [phone] [address] Social History Tobacco Use Types Packs/Day Years Used Date Smoking Tobacco: Every Day Cigarettes Smokeless Tobacco: Never Alcohol Use Standard Drinks/Week Comments Yes 0 (1 standard drink = 0.6 oz pur e alcohol) RARE Sex and Gender Information Value Date Recorded Sex Assigned at Not on file 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, [place] [phone] Phyllis Pereira, HOME APPLIANCE INSTALLER-ENGINE LATHE SET UP OPERATOR TOOL [address] [facility] [address]F [place] [address] documented as of this encounter Visit Diagnoses Not on filedocumented in this encounter Care Teams Senior Geologist Relationship Specialty Start Date End Date Shay [place] MD [address] [address] PCP - General Internal Medicine 11/14/17 documented as of this encounter
--- OUTSIDE RECORDS SUMMARY | 2024-10-21 09:55 | XMS_ITS | Clinical Summary ---
Author Organization [facility] Address [address] [place] [id number] Care Team Providers Care Cad Technician Name Role Phone Krish Hooper MD Primary Care Provide r Jorge Jorge DO Unavailable [phone] Rene Harris MD Unavailable Emiliano Washington DO Unavailable [phone] Allergies Active Allergy Reactions Criticality Noted Date [...] with breakfast 90 tablet 11 4 Active sacubitriL-valsa rtan (ENTRESTO) 24-26 mg tabletIndication s:chronic heart failure Take 1 tablet by mouth 2 (two) times a day 60 tablet 5 Active insulin degludec (TRESIBA) 100 unit/mL (3 mL) pen for injection Inject 0.15 mL (15 Units total) under the skin nightly 5 Active metoprolol XL (TOPROL-XL) 50 mg extended release tablet Take 1 tablet (50 mg total) by mouth daily 30 tablet 5 07/29/19 26 Active cefdinir (OMNICEF) 300 mg capsule Take 1 capsule (300 mg total) by mouth 2 (two) times a day 14 capsule Active Active Problems Problem Noted Date Diagnosed Date Moderate protein-calorie malnutrition 07/26/2024 CAD S/P percutaneous coronary angioplasty 2023 Chest pain 01/29/2024 Thrombocytopenia, unspecified 08/23/2021 Transient cerebral ischemia 12/10/2017 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 09/17/2017 Secondary hypertension 09/17/2017 Other hyperlipidemia 09/17/2017 PVD (peripheral vascular disease) Encounters Date Type Department Care Team Description 08/04/2024 [facility] Post Discharge Follow up phone call [address] [address] FerrisCyn lezama Shyla 07/26/2024 1:18 AM CDT - 07/28/2024 12:46 PM CDT Hospital Encounter [address] [address] Cleveland Mathis MD Burton, Jeffrey Ryan, DO Discharge Disposition: Discharge to home or [...] circulatory disorder (HCC) 09/17/2017 ICH (intracerebral hemorrhage) R cerebellum, associated with basilar aneurysm CAD (coronary artery disease) COPD (chronic obstructive pu lmonary disease) Liver cancer (HCC) Heart attack (HCC) Anemia [...] on file 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 Gender Identity Not on file Sexual [...] CDT Inhaled Oxygen Concentration - - Weight 77.1 kg (170 lb) 08/19/2024 8:00 AM CDT Height 180.3 cm (5' 11) 07/26/2024 1:22 AM CDT Body Mass Index 23.71 07/26/2024 1:22 AM CDT Plan of Treatment [...] Well Visit 65+ 05/05/2020 Influenza Vaccine (#1) 2024 Depression Screening 06/19/2025 06/19/2024, 09/17/2017, 09/17/2017 Fall Risk Assessment 07/28/2025 07/28/2024 eGFR 07/28/2025 07/28/2024, 06/0 02/2024, 07/26/2024, Additional history exists DTaP/Tdap/Td Vaccine (2 - Td or Tdap) 02/06/2027 02/06/2017 Medical Devices Implanted Type Area Erisa Attorney Device Identifier Shelf Expiration Date Model / Serial / Lot [employer] Synergy Xd Monorail 4mm 32mm 144cm Delivery System 1 Access Port [id number] - [id number] Implanted:Qty: 1 on 02/12/2024 by Rene Harris MD at [facility] [employer] 11/28/2024 [id number] / / [id number] Procedures Procedure Name Priority Date/Time Associated Diagnosis [...] * Ferritin (07/28/2024 8:33 AM CDT) Pathologist [facility] Ferritin 183 30 - 400 ng/mL Blood 07/28/2024 8:33 AM CDT 07/28/2024 8:38 AM CDT Emiliano Washington DO LAB BLOOD ORDERABLES Final Result [facility] [address] [place] [address] * POCT glucose (07/28/2024 6:56 AM CDT) Pathologist [facility] Glucose, POC 152 70 - 199 mg/dL POC Performer [id number] NINA Blood 07/28/2024 6:56 AM CDT 07/28/2024 6:56 AM CDT Edward Witt DO LAB POCT ORDERABLES - DEV ICE Final Result NINA FRANKIE [address] [place] [address] * (ABNORMAL) eGFR (07/28/2024 5:50 AM CDT) [...] Edward Witt DO LAB BLOOD ORDERABLES Alicia orlin Result [facility] [address] [place] [address] * (ABNORMAL) CBC without differential (07/28/2024 5:50 AM CDT) Pathologist [facility] WBC 5.01 3.80 - 9.90 K/cumm Hgb 8.3(L) 13.0 - 17.5 g/dL [facility] Hct 25.7(L) 38.9 - 50.3 % [facility] Plt 130(L) 150 - 400 K/cumm [facility] MPV 9.5 9.1 - 12.3 fL [facility] RBC 2.68(L) 4.30 - 5.80 M/cumm [facility] MCV 95.9 81.3 - 96.4 fL [facility] MCH 31.0 27.1 - 33.3 pg [facility] MCHC 32.3 32.3 - 35.7 g/dL [facility] RDW CV 15.7(H) 11.1 - 14.9 % [facility] RDW SD 54.1(H) 35.7 - 48.1 fL [facility] NRBC abs 0.00 0.00 - 0.01 K/cumm [facility] Blood 07/28/2024 5:50 AM CDT 07/28/2024 6:24 AM CDT Edward Witt DO LAB BLOOD [place] [address] [address] [place] [address] * (ABNORMAL) Basic metabolic panel (07/28/2024 5:50 [...] ORDERABLES Alicia l Result Performing Organization Address [facility] Co de Phone Number NINA DAVID [address] [facility] [place] [address] * (ABNORMAL) POCT glucose (07/27/2024 9:07 PM CDT) Glucose, POC 232(H) 70 - 199 mg/dL POC Performer [id number] [facility] Blood 07/27/2024 9:07 PM CDT 07/27/2024 9:07 PM CDT Edward Witt LAB POCT ORDERABLES - DEV ICE Final Result Performing Organization Address [facility] Co de Phone Number NINA DAVID [address] [address] [facility] [place] [address] * Lactate (07/27/2024 7:36 PM CDT) Lactate 0.8 0.7 - 2.0 mmol/L Blood 07/27/2024 7:36 PM CDT 07/27/2024 7:46 PM CDT [facility] BLOOD [facility]ABLES Alicia l Result Performing Organization Address [facility] Co de Phone Number NINA DAVID [address] [address] [facility] [place] [address] * POCT glucose (07/27/2024 5:27 PM CDT) Glucose, POC 129 70 - 199 mg/dL POC Performer [id number] [facility] Blood 07/27/2024 5:27 PM CDT 07/27/2024 5:27 PM CDT [facility] LAB POCT ORDERABLES - DEV ICE Final Result Performing Organization Address [facility] Co de Phone Number NINA DAVID [address] [address] [facility] [place] [address] * (ABNORMAL) POCT glucose (07/27/2024 12:40 PM CDT) Glucose, POC 262(H) 70 - 199 mg/dL POC Performer [id number] [facility] Blood 07/27/2024 12:4 0 PM CDT 07/27/2024 12:40 PM CDT Edward Witt LAB POCT ORDERABLES - DEV ICE Final Result Performing Organization Address [facility] [place] [address] [address] [place] [address] * (ABNORMAL) Urinalysis reflex to microscopic (07/27/2024 [...] for uric acid stone formation. Source: [facility] Current Interpretive Data was last revised on [...] CDT 07/27/2024 11:23 AM CDT Edward Witt LAB URINE ORDERABLES Alicia l Result Performing Organization Address [facility]/[place] [address] [address] [facility] [place] [address] * (ABNORMAL) Urinalysis, microscopic only (07/27/2024 11:12 AM CDT) [facility] WBC, ur >50(A) 0 - 5 /HPF RBC, ur 6-10(A) 0 - 2 /HPF [facility] Epithelial cells, squamous, ur 1-5 0 - 5 /HPF [facility] Urine 07/27/2024 11:1 2 AM CDT 07/27/2024 11:23 AM CDT Edward Witt LAB URINE ORDERABLES Alicia l Result Performing Organization Address [facility] Co de Phone Number NINA [address] [address] [facility] [place] [address] * POCT glucose (07/27/2024 6:09 AM CDT) [facility] Glucose, POC 190 70 - 199 mg/dL POC Performer [id number] [facility] Blood 07/27/2024 6:09 AM CDT 07/27/2024 6:09 AM CDT Edward Witt LAB POCT ORDERABLES - DEV ICE Final Result Performing Organization Address [facility] Co de Phone Number NINA [address] [address] [place] [address] * (ABNORMAL) eGFR (07/27/2024 4:26 AM CDT) [facility] eGFR 44(L) >=60 mL/min/1. 73 m2 Comment: [...] 4:26 AM CDT 07/27/2024 4:36 AM CDT us Edward Witt DO LAB BLOOD ORDERABLES Alicia ordaz Result [facility] [address] [place] [address] * (ABNORMAL) CBC without differential (07/27/2024 4:26 AM CDT) WBC 4.08 3.80 - 9.90 K/cumm Hgb 7.7(L) 13.0 - 17.5 g/dL [facility] Hct 25.0(L) 38.9 - 50.3 % [facility] Plt 112(L) 150 - 400 K/cumm [facility] MPV 9.5 9.1 - 12.3 fL [facility] RBC 2.49(L) 4.30 - 5.80 M/cumm [facility] MCV 100.4(H) 81.3 - 96.4 fL [facility] MCH 30.9 27.1 - 33.3 pg [facility] MCHC 30.8(L) 32.3 - 35.7 g/dL [facility] RDW CV 15.8(H) 11.1 - 14.9 % [facility] RDW SD 57.8(H) 35.7 - 48.1 fL [facility] NRBC abs 0.00 0.00 - 0.01 K/cumm [facility] Blood 07/27/2024 4:26 AM CDT 07/27/2024 4:37 AM CDT Edward Witt LAB BLOOD ORDERABLES Alicia l Result NINA DAVID [address] [place] [address] * (ABNORMAL) Basic metabolic panel (07/27/2024 4:26 AM CDT) Sodium 136 135 - 145 mmol/L Potassium, pl 5.2(H) 3.3 - 4.9 mmol/L [facility] Chloride 112(H) 97 - 110 mmol/L [facility] CO2 15(L) 22 - 32 mmol/L [facility] Anion gap 9 2 - 15 mmol/L [facility] BUN 33(H) 6 - 25 mg/dL [facility] Creatinine 1.67(H) 0.80 - 1.30 mg/dL [facility] Glucose 175 70 - 199 mg/dL [facility] Comment: Interpretive Data Fasting glucose >/= [...] 2022. Calcium 8.9 8.5 - 10.3 mg/dL [facility] Blood 07/27/2024 4:26 AM CDT 07/27/2024 4:36 AM CDT Edward Witt LAB BLOOD ORDERABLES Alicia l Result NINA DAVID [address] [place] [address] * (ABNORMAL) Hemoglobin and hematocrit (07/26/2024 10:12 PM CDT) Hgb 7.8(L) 13.0 - 17.5 g/dL Hct 24.9(L) 38.9 - 50.3 % [facility] Blood 07/26/2024 10:1 2 PM CDT 07/26/2024 10:21 PM CDT Narrative NINA - 07/26/2024 10:27 PM CDT 1 hour after the red blood cell transfusion is complete. Edward Witt DO LAB BLOOD ORDERABLES Alicia l Result Performing Organization Address [facility] Co de Phone Number NINA DAVID [address] [place] [address] * Transfuse RBC (07/26/2024 9:19 PM CDT) Blood Edward Witt DO BLOOD TRANSFUSION ORDERAB LES Final Result Performing Organization Address [facility] Co de Phone Number [facility] DAVID [address] [address] [place] [address] * (ABNORMAL) POCT glucose (07/26/2024 8:34 PM CDT) Glucose, POC 261(H) 70 - 199 mg/dL POC Performer [id number] [facility] Blood 07/26/2024 8:34 PM CDT 07/26/2024 8:34 PM CDT Edward Witt DO LAB POCT ORDERABLES - DEV ICE Final Result Performing Organization Address [facility] Co de Phone Number NINA DAVID [address] [address] [facility] [place] [address] * (ABNORMAL) POCT glucose (07/26/2024 5:07 PM CDT) Glucose, POC 298(H) 70 - 199 mg/dL POC Performer [id number] [facility] Blood 07/26/2024 5:07 PM CDT 07/26/2024 5:07 PM CDT Edward Witt DO LAB POCT ORDERABLES - DEV ICE Final Result Performing Organization Address [facility] Co de Phone Number NINA DAVID [address] [address] [facility] [place] [address] * Urea nitrogen, urine, random (07/26/2024 3:50 PM CDT) Urea nitrogen, ur 541 mg/dL Comment: Interpretive Data No reference range established. Current interpretive data was last revised 2018. Urine 07/26/2024 3:50 PM CDT 07/26/2024 3:57 PM CDT Tamara Johnson MD LAB URINE ORDERABLES Alicia l Result Performing Organization Address [facility] Co de Phone Number NINA DAVID [address] [address] [facility] [place] [address] * Sodium, urine, random (07/26/2024 3:50 PM CDT) Sodium, ur 98 mmol/L Comment: Interpretive Data No reference range established. Current interpretive data was last revised 2018. Urine 07/26/2024 3:50 PM CDT 07/26/2024 3:57 PM CDT Tamara Johnson MD LAB URINE ORDERABLES Alicia l Result Performing Organization Address [facility] Co de Phone Number NINA DAVID [address] [address] [facility] [place] [address] * Creatinine, urine, random (07/26/2024 3:50 PM CDT) Creatinine Ur 69.4 mg/dL Comment: Interpretive Data No reference range established. Current interpretive data was last revised 2018. Urine 07/26/2024 3:50 PM CDT 07/26/2024 3:57 PM CDT Tamara Johnson MD LAB URINE ORDERABLES Alicia l Result Performing Organization Address [facility] Co de Phone Number NINA DAVID [address] [address] [facility] [place] [address] * Check Sample (07/26/2024 3:13 PM CDT) ABO Rh A Positive CH HCLL OTHER 07/26/2024 3:13 PM CDT 07/26/2024 3:14 PM CDT Edward Witt LAB BLOOD ORDERABLES Alicia l Result Performing Organization Address [facility] de Phone Number NINA DAVID [address] [address] [facility] [place] [address] CH * Type and screen (07/26/2024 2:18 PM CDT) ABO Rh A Positive Sergio, indirect Negative [facility] Blood 07/26/2024 2:18 PM CDT 07/26/2024 2:26 PM CDT Narrative [facility] - 07/26/2024 3:15 PM CDT Has the patient had Daratumumab or Isatuximab in the past 6 months?->Unknown Edward Witt DO [facility] BLOOD BANK TEST ORDER ZOE Final Result Performing Organization Address [facility] de Phone Number NINA DAVID [address] [address] [facility] [place] [address] * (ABNORMAL) POCT glucose (07/26/2024 11:38 AM CDT) Glucose, POC 346(H) 70 - 199 mg/dL POC Performer [id number] [facility] Blood 07/26/2024 11:3 8 AM CDT 07/26/2024 11:38 AM CDT Edward Witt LAB POCT ORDERABLES - DEV ICE Final Result Performing Organization Address City/[facility] Co de Phone Number NINA DAVID [address] [address] [place] [address] * (ABNORMAL) Iron profile w/ IBC (07/26/2024 9:13 AM CDT) Iron 110 50 - 150 mcg/dl TIBC 219(L) 250 - 400 mcg/dL [facility] Transferrin saturation 50 20 - 50 % [facility] Blood 07/26/2024 9:13 AM CDT 07/28/2024 1:12 AM CDT Edward Witt LAB BLOOD ORDERABLES Alicia l Result Performing Organization Address [facility] de Phone Number NINA DAVID [address] [place] [address] * Folate (07/26/2024 9:13 AM CDT) Folic acid 7.4 >=5.0 ng/mL Comment:Hemolysis present. R esults may be affected. Blood 07/26/2024 9:13 AM CDT 07/28/2024 1:12 AM CDT Edward Witt LAB BLOOD ORDERABLES Alicia l Result Performing Organization Address [facility] Co de Phone Number NINA DAVID [address] [address] [place] [address] * Vitamin B12 (07/26/2024 9:13 AM CDT) Pathologist [facility] Vitamin B12 907 230 - 1,250 pg/mL Blood 07/26/2024 9:13 AM CDT 07/28/2024 1:12 AM CDT Edward Witt LAB BLOOD ORDERABLES Alicia l Result Performing Organization Address [facility] Co de Phone Number NINA DAVID [address] [address] [place] [address] * Prepare RBC: 1 Units (07/26/2024 8:27 AM CDT) [facility] Product code [id number] Unit Number [id number] [facility] Product Blood Type APOS [facility] Dispense Status PRESUMED TRANSFUSED [facility] Blood 07/26/2024 8:27 AM CDT Narrative [facility] - 07/28/2024 10:15 AM CDT Are special requirements needed? (All products are leukoreduced and CMV- safe)- >No Date required:-[id number] LRRBC # of [id number] Reasons:-Hgb <7 g/dL} Edward Witt DO BLOOD BANK PRODUCT ORDERA BLES Final Result Performing Organization Address [facility] Co de Phone Number NINA DAVID [address] [place] [address] * POCT glucose (07/26/2024 7:42 AM CDT) [facility] Glucose, POC 196 70 - 199 mg/dL POC Performer [id number] [facility] Blood 07/26/2024 7:42 AM CDT 07/26/2024 7:42 AM CDT Cleveland Mathis MD LAB POCT ORDERABLES - DEVICE Final Result Performing Organization Address City/[facility] Co de Phone Number NINA DAVID [address] [address] [place] [address] * (ABNORMAL) eGFR (07/26/2024 4:40 AM CDT) [facility] eGFR 32(L) >=60 mL/min/1. 73 [...] NP LAB BLOOD ORDERABLES Final R esult [facility] [address] [address] [place] [address] * (ABNORMAL) Differential, auto (07/26/2024 4:40 AM CDT) Neutrophil abs 3.71 1.50 - 6.50 K/cumm Imm gran abs 0.02 0.00 - 0.10 K/cumm [facility] Lymphocyte abs 0.64(L) 0.80 - 3.30 K/cumm [facility] Monocyte abs 0.29 0.20 - 0.80 K/cumm [facility] Eosinophil abs 0.19 0.00 - 0.50 K/cumm [facility] Basophil abs 0.02 0.00 - 0.10 K/cumm [facility] Neutrophil pct 76.2 % [facility] Comment: Interpretive Data Percent cell count reference ranges are not reported, since discordance with absolute values may lead to misinterpretation of CBC data. Current Interpretive Data was last revised on 2017. Imm gran pct 0.4 % NINA Comment: Interpretive Data Percent cell count reference ranges are not reported, since discordance with absolute values may lead to misinterpretation of CBC data. Current Interpretive Data was last revised on 2017. Lymphocyte pct 13.1 % NINA Comment: Interpretive Data Percent cell count reference ranges are not reported, since discordance with absolute values may lead to misinterpretation of CBC data. Current Interpretive Data was last revised on 2017. Monocyte pct 6.0 % [facility] Comment: Interpretive Data Percent cell count reference ranges are not reported, since discordance with absolute values may lead to misinterpretation of CBC data. Current Interpretive Data was last revised on 2017. Eosinophil pct 3.9 % [facility] Comment: Interpretive Data Percent cell count reference ranges are not reported, since discordance with absolute values may lead to misinterpretation of CBC data. Current Interpretive Data was last revised on 2017. Basophil pct 0.4 % [facility] Comment: Interpretive Data Percent cell count reference ranges are not reported, since discordance with absolute values may lead to misinterpretation of CBC data. Current Interpretive Data was last revised on 2017. Blood 07/26/2024 4:40 AM CDT 07/26/2024 4:52 AM CDT Randall Cortez NP LAB BLOOD ORDERABLES Final R esult [facility] [address] [address] [place] [address] * (ABNORMAL) CBC with auto differential (07/26/2024 4:40 AM CDT) WBC 4.87 3.80 - 9.90 K/cumm Hgb 6.9(L) 13.0 - 17.5 g/dL [facility] Hct 22.2(L) 38.9 - 50.3 % [facility] Plt 116(L) 150 - 400 K/cumm [facility] MPV 9.4 9.1 - 12.3 fL [facility] RBC 2.21(L) 4.30 - 5.80 M/cumm [facility] MCV 100.5(H) 81.3 - 96.4 fL [facility] MCH 31.2 27.1 - 33.3 pg [facility] MCHC 31.1(L) 32.3 - 35.7 g/dL [facility] RDW CV 15.8(H) 11.1 - 14.9 % [facility] RDW SD 58.2(H) 35.7 - 48.1 fL [facility] NRBC abs 0.00 0.00 - 0.01 K/cumm [facility] Blood 07/26/2024 4:40 AM CDT 07/26/2024 4:52 AM CDT us Janeenotf Diego ELENA LAB BLOOD ORDERABLES Final R esult [facility] [address] [place] [address] * (ABNORMAL) Comprehensive metabolic panel (07/26/2024 4:40 [...] CH AST 19 10 - 50 Units/L [facility] Blood 07/26/2024 4:40 AM CDT 07/26/2024 4:52 AM CDT Randall Cortez NP LAB BLOOD ORDERABLES Final R esult Performing Organization Address City/[facility] Co de Phone Number [facility] [address] [address] [place] [address] * (ABNORMAL) Hemoglobin A1c (09/18/2017 6:16 AM CDT) Hgb A1C 7.2(H) 4.0 - 5.6 % [facility] Estimated Average Glucose 160 mg/dL [facility] Comment: The ADA recommends reporting an estimated Average Glucose (eAG) with all Hemoglobin A1c results using the equation derived from a study of 507 normal and diabetic adults. Minority populations were underrepresented and children were not included. (Diabetes Care 31:7061-4175, 2008). The eAG is not equivalent to a fasting glucose. Blood specimen (specimen) 09/18/2017 6:16 AM CDT 09/18/2017 7:44 AM CDT Narrative [facility] - 09/18/2017 8:10 AM CDT Aiden Parker MD LAB BLOOD ORDERABLES Final Result Performing Organization Address City/[facility] Co de Phone Number [facility] Department [place] [address] * (ABNORMAL) Lipid panel (09/18/2017 6:16 AM CDT) Cholesterol 140 30 - 200 mg/dL [facility] Comment: Interpretive Data Desirable: <200 mg/dL [...] revised on 2014. HDL 32(L) >=40 mg/dL [facility] Comment: Interpretive Data Less than 40 mg/dL - low; A major risk factor for heart disease. Greater than or equal to 60 mg/dL - High; considered protective of heart disease. Literature Reference: See Cholesterol Current interpretive data was last revised on 2014. LDL, calculated 89 10 - 129 mg/dL [facility] Comment: Interpretive Data Optimal: < 100 mg/dL Near Optimal: 100 - 129 mg/dL Borderline High: 130 - 159 mg/dL High: 160 - 189 mg/dL Very high: > or = 190 mg/dL Literature Reference: See Cholesterol Current interpretive data was last revised on 2014. Non-HDL Cholesterol 108 mg/dL [facility] Comment: Interpretive Data When triglycerides are >200 mg/dL, non-HDL C is a secondary target of therapy, with a goal 30 mg/dL higher than the identified LDL-C goal. Reference: See Cholesterol Reference. Current interpretive data was last revised 2014. Blood specimen (specimen) 09/18/2017 6:16 AM CDT 09/18/2017 7:42 AM CDT Narrative NINA [facility] - 09/18/2017 6:[address] AIDEN PARKER 09/18/2017 17:13:25 CDT Aiden Parker MD LAB BLOOD ORDERABLES Final Result [facility] Department [place] [address] from Last 3 Months or Most Recently Relevant to Health Maintenance Insurance [employer] HMO [address] [id number] Advance Directives For more information, please contact: [phone] * Full Code (Latest Code Status on File) Date Activated Date Inactivated Comments 07/26/2024 1:39 AM 07/28/2024 4:56 PM * Full Code Date Activated Date Inactivated Comments 02/12/2024 3:20 PM 02/13/2024 2:36 PM * Full Code Date Activated Date Inactivated Comments 09/18/2017 5:47 AM 09/19/2017 5:05 PM Care Teams Cad Technician Relationship Specialty Start Date End Date Krish Hooper MD [address] [facility] 15 [place] [address] PCP - General Internal Medicine 12/07/17 Jorge Jorge DO [address] [place] [address] Medical Oncologist/Weathercaster Hematology and Oncology 12/11/18 Rene Harris MD [address] [place] [address] Consulting Physician Cardiology 02/13/24 Emiliano Washington DO [address] [address] Consulting Physician Nephrology 07/28/24
--- OUTSIDE RECORDS SUMMARY | 2024-10-21 09:56 | XMS_ITS | Clinical Summary ---
Author Organization [facility] Facility Address [address] [address] Care Team Providers Care Medical Driver Name Role Phone Shay Hooper MD Primary Care Provider [phone] Allergies Active Allergy Reactions Criticality Noted Date Comments Codeine 05/10/2021 Penicillins 05/10/2021 Medications ergocalciferol 1.25 MG (85838 UT) capsule Take 1 capsule (50,000 Units total) by mouth every 30 (thirty) days 4 capsule 1 2 Active atorvastatin (LIPITOR) 20 MG tablet Take 1 tablet (20 mg total) by mouth every night 90 tablet 1 3 Active insulin degludec (Tresiba FlexTouch) 100 UNIT/ML injection Inject 10 Units under the skin 1 (one) time each day 9 mL 3 5 08/20/19 26 Active MAGnesium-Oxide 400 (240 Mg) MG tablet Take 1 tablet by mouth once daily 90 tablet 5 Active Dapagliflozin Propanediol (Farxiga) 5 MG tablet Take 5 mg by mouth 1 (one) time each day in the morning 30 tablet 5 5 Active Dapagliflozin Propanediol (Farxiga) 5 MG tablet Take 5 mg by mouth 1 (one) time each day in the morning 10/15/19 25 Discontinu ed(Reorder (does not appear on AVS)) Active Problems Problem Noted Date Diagnosed Date Essential hypertension 07/09/2024 Encounters Date Type Department Care Team Description 10/14/2024 2:15 PM CDT Office Visit [facility], [facility] [address]43 [facility] 15 [place] [address] Emiliano Washington DO Stage 3b chronic kidney disease (HCC) (Primary Dx); Alcoholic fibrosis and sclerosis of liver; Esophageal varices associated with another disorder (HCC); Stroke, not otherwise specified (HCC); Peripheral vascular disease (HCC); Hypertensive chronic kidney disease; Type 2 diabetes mellitus with diabetic chronic kidney disease (HCC); Pure hypercholesterolemia, not otherwise specified; Tobacco use; Ischemic cardiomyopathy; Coronary atherosclerosis of unspecified type of vessel, clark's point or graft; Aortic valve stenosis 10/14/2024 Refill [facility], [facility] [address] [phone] Calyl Kruger, INSTALLATION SPECIALIST 10/03/2024 Documentation Only [facility], [address] [address] Emiliano Washington, DO 10/03/2024 Documentation Only [facility], [address] [address] Emiliano Washington, DO 10/02/2024 Documentation Only [facility], [address] [address] Emiliano Washington, DO 10/02/2024 Documentation Only [facility], [address] [address] Emiliano Washington, DO 10/02/2024 Documentation Only [facility], [address] [address] Emiliano Washington, DO 09/12/2024 Refill [facility], [facility] [address] [address] Emiliano Washington, DO 08/19/2024 12:00 PM CDT Office Visit [facility], [facility] [address] [address] Emiliano Washington DO Stage 3b chronic kidney disease (HCC) (Primary Dx); Alcoholic fibrosis and sclerosis of liver; Esophageal varices associated with another disorder (HCC); Stroke, not otherwise specified (HCC); Peripheral vascular disease (HCC); Hypertensive chronic kidney disease; Type 2 diabetes mellitus with diabetic chronic kidney disease (HCC); Pure hypercholesterolemia, not otherwise specified; Tobacco use; Ischemic cardiomyopathy; Coronary atherosclerosis of unspecified type of vessel, clark's point or graft; Aortic valve stenosis 08/11/2024 Documentation Only [facility], [address] [address] Emiliano Washington, 07/31/2024 Office Communication [facility], [address] [phone] Adrianne Corbin 07/31/2024 Documentation Only [facility], [address] [address] Adrianne Corbin 07/29/2024 Documentation Only [facility], [address] [address] Emiliano Washington, 07/24/2024 Documentation Only [facility], [address] [address] Emiliano Washington, DO 07/23/2024 Documentation Only [facility], [address] [address] Emiliano Washington, 07/22/2024 1:30 PM CDT Office Visit [facility], [facility] [address] [facility] [address] [place] [phone] Emiliano Washington, DO Stage 3b chronic kidney disease (HCC) (Primary Dx); Alcoholic fibrosis and sclerosis of liver; Esophageal varices associated with another disorder (HCC); Stroke, not otherwise specified (HCC); Peripheral vascular disease (HCC); Hypertensive chronic kidney disease; Type 2 diabetes mellitus with diabetic chronic kidney disease (HCC); Pure hypercholesterolemia, not otherwise specified; Tobacco use from Last 3 Months Social History Tobacco Use Types Packs/Day Years Used Date Smoking Tobacco: Never Assessed Sex and Gender Information Value Date Recorded Sex Assigned at Not on file Legal Sex Male 2:49 PM EST Gender Identity Not on file Sexual Orientation Not on file Last Filed Vital Signs Vital Sign Reading Time Taken Comments Blood Pressure 100/60 10/14/2024 2:23 PM CDT Pulse 80 10/14/2024 2:23 PM CDT Temperature 36.7 C (98 F) 10/14/2024 2:23 PM CDT Respiratory Rate 18 10/14/2024 2:23 PM CDT Oxygen Saturation 96% 10/14/2024 2:23 PM CDT Inhaled Oxygen Concentration - - Weight 75.9 kg (167 lb 4.8 oz) 10/14/2024 2:23 P M CDT Height 180.3 cm (5' 11) 08/19/2024 12:05 PM CDT Body Mass Index 23.33 08/19/2024 12:05 PM CDT Plan of Treatment Upcoming Encounters Date Type Department Care Team (Late st Contact Info) Description 03/17/2025 1:15 PM BLOCKING MACHINE OPERATOR Office Visit [facility], [facility] [address] [facility] [address] [place] [phone] Emiliano Washington, [address] [facility] [address] [place] [address] Health Maintenance Due Date Last [...] Visual Foot Exam 03/01/2021 Influenza Vaccine (#1) 2024 Insurance [facility] Medicare Advance Directives Documents on File Type Date Recorded Patient Cardiac Catheterization Technologist Expl anation Advance Care Planning 05/11/2021 11:05 AM Care Teams Medical Driver Relationship Specialty Start Date End Date Shay Hooper MD [address]43 [facility], [address] [place] [address] PCP - General Internal Medicine 03/01/21
--- OUTSIDE RECORDS SUMMARY | 2024-10-21 09:56 | XMS_ITS | Encounter Summary ---
Author Organization [facility] Healthcare Address [address] [place] [address] Care Team Providers Care Child Care Centre Director Name Role Phone Krish Hooper MD Primary Care Provide r Jorge Jorge DO Unavailable [phone] Rene Harris MD Unavailable Emiliano Washington DO Unavailable [phone] Encounter Details Date Type Department Care Team (Late st Contact Info) Description 08/04/2024 [facility] Post Discharge Follow up phone call [place] [id number] [place] [address] Cyn Ferris Social History Tobacco Use Types Packs/Day Years [...] on file Legal Sex Male 7:05 PM ORAL PATHOLOGIST Gender Identity Not on file Sexual Orientation Not on file documented as of this encounter Plan of Treatment Not on file documented as of this encounter Visit Diagnoses Not on filedocumented in this encounter Care Teams Child Care Centre Director Relationship Specialty Start Date End Date Krish Hooper MD [address] [facility] 15 [place] [address] PCP - General Internal Medicine 12/07/17 Jorge Jorge DO [address] [place] [address] Medical Oncologist/Clam Dredge Boat Captain Hematology and Oncology 12/11/18 Rene Harris MD [address] [place] [address] Consulting Physician Cardiology 02/13/24 Emiliano Washington DO [address] [facility] 1 [place] [address] Consulting Physician Nephrology 07/28/24 documented as of this encounter
--- OUTSIDE RECORDS SUMMARY | 2024-10-21 09:56 | XMS_ITS | Clinical Summary ---
Author Organization [facility] Address [address] [place] [address] Phone Care Team Providers Care Signal Repairer Name Role Phone Provider, Not On File [...] and at bedtime. Active ergocalciferol (VITAMIN D) 19167 UNIT Capsule Take 50,000 Units by mouth. [...] Comments Hepatitis C Virus (HCV) Screening 1955 Cologuard 05/05/2000 Colonoscopy 05/05/2000 Colorectal Cancer Screening 05/05/2000 Immunochemical Fecal Occult Blood 05/05/2000 Pneumococcal Immunization (5 0+ years) (1 of 1 - PCV) 05/05/2005 Zoster Immunization (1 of 2) 05/05/2005 SARS-COV-2 Immunization ( - 2023-25 season) 2023 Influenza Immunization (#1) 2024 Respiratory Syncytial Virus (RSV) Immunization (Adult) (1 - 1-dose 75+ series) 05/05/2030 DTaP/Tdap/Td Immunization Discontinued 02/06/2017 TdaP Immunization Completed 02/06/2017 Hepatitis B Immunization Aged Out No longer eligible based on patient's age to complete this topic Human Papillomavirus (HPV) Immunization Aged Out No longer eligible b ased on patient's age to complete this topic Meningococcal Immunization (ACWY) Aged Out No longer eligible based on patient's age to complete this topic Rotavirus Immunization Aged Out No lo nger eligible based on patient's age to complete this topic Medical Devices Implanted Type Area Plater Supervisor Device Identifier Shelf Expiration Date Model / Serial / Lot Implant Nasal 16mm Steroid Release Zip Tie Propel Mometasone Furoate 370 Mcg Mini 4mm - [id number] Implanted:Qty: 1 on 10/03/2022 by Lalito Acuña MD at [facility] IMPLANT Left: [employer] 09/28/2023 [id number] / [id number] / [id number] Implant Nasal 16mm Steroid Release Zip Tie Propel Mometasone Furoate 370 Mcg Mini 4mm - [id number] Implanted:Qty: 1 on 10/03/2022 by Lalito Acuña MD at [facility] IMPLANT Right: Sin[employer] 11/09/2023 [id number] / [id number] / [id number] Explanted Type Area Plater Supervisor Device Identifier Shelf Expiration Date Model / Serial / Lot Implant Nasal 16mm Steroid Release Zip Tie Propel Mometasone Furoate 370 Mcg Mini 4mm - [id number] Explanted:Qty: 1 on 10/03/2022 at [facility] IMPLANT Right: Sin[employer] 09/28/2023 [id number] / [id number] / [id number] Insurance MEDICARE C [employer] Care Teams Signal Repairer Relationship Specialty Start Date End Date Provider, Not On File [place] PCP - General 10/03/22
== END 2024-10-21 09:33 | disposition home or self-care (01) ==
PROVIDERS: PCP Internal Medicine; Visit Provider Internal Medicine Hematology & Oncology
DX: C22.0 Liver cell carcinoma (principal); K74.69 Other cirrhosis of liver
CPT/HCPCS: 71250; 74176

== ENCOUNTER 2024-10-30 15:02 | Inpatient (IN) | payer MEDICARE, SELFPAY ==
--- OUTSIDE RECORDS SUMMARY | 2024-10-16 06:20 | XMS_ITS ---
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 Role Phone Cindy Dhillon Unavailable [phone] Results Component Value Reference Range Flag Notes Full Confirmation - Specimen Type Urine Reviewed date:10/27/2024 10:26:09 AM Interpretation: Performing Lab: Notes/Report: 6-ADDI Negative 20 ng/mL ng/mL 7-Aminoclonazepam Negative 50 ng/mL ng/mL a-Hydroxyalprazolam Negative 50 ng/mL ng/mL Alprazolam Negative 50 ng/mL ng/mL Amphetamine Negative 50 ng/mL ng/mL Benzoylecgonine Negative 50 ng/mL ng/mL Buprenorphine Negative 25 ng/mL ng/mL Carisoprodol Negative 50 ng/mL ng/mL Clonazepam Negative 50 ng/mL ng/mL Codeine Negative 50 ng/mL ng/mL Cyclobenzaprine Negative 50 ng/mL ng/mL Diazepam Negative 50 ng/mL ng/mL EDDP Negative 50 ng/mL ng/mL Fentanyl Negative 3 ng/mL ng/mL Gabapentin Negative 500 ng/mL ng/mL Hydrocodone Negative 50 ng/mL ng/mL Hydromorphone Negative 50 ng/mL ng/mL Lorazepam Negative 50 ng/mL ng/mL MDMA Negative 50 ng/mL ng/mL Meprobamate Negative 50 ng/mL ng/mL Methadone Negative 50 ng/mL ng/mL Methamphetamine Negative 200 ng/mL ng/mL Morphine Negative 50 ng/mL ng/mL Naloxone Negative 50 ng/mL ng/mL Naltrexone Negative 50 ng/mL ng/mL Norbuprenorphine Negative 25 ng/mL ng/mL Nordiazepam Negative 50 ng/mL ng/mL Norfentanyl Negative 10 ng/mL ng/mL Norpropoxyphene Negative 50 ng/mL ng/mL Oxazepam Negative 50 ng/mL ng/mL Oxycodone Negative 50 ng/mL ng/mL Oxymorphone Negative 50 ng/mL ng/mL Pregabalin >2000 200 ng/mL ng/mL H Propoxyphene Negative 50 ng/mL ng/mL Tapentadol Negative 50 ng/mL ng/mL Temazepam Negative 50 ng/mL ng/mL Tramadol Negative 50 ng/mL ng/mL THC Negative 50 ng/mL ng/mL Amitriptyline Negative 50 ng/mL ng/mL Carboxyzolpidem 199 100 ng/mL ng/mL H Desmethyldoxepin Negative 50 ng/mL ng/mL Doxepin Negative 50 ng/mL ng/mL Imipramine Negative 50 ng/mL ng/mL Methylphenidate Negative 50 ng/mL ng/mL Nortriptyline Negative 50 ng/mL ng/mL o-Desmethyltramadol Negative 50 ng/mL ng/mL Ritalinic Acid Negative 50 ng/mL ng/mL Desalkylflurazepam Negative 50 ng/mL ng/mL Flunitrazepam Negative 50 ng/mL ng/mL Flurazepam Negative 50 ng/mL ng/mL Ketamine Negative 50 ng/mL ng/mL Meperidine Negative 50 ng/mL ng/mL Mitragynine Negative 50 ng/mL ng/mL Norhydrocodone Negative 50 ng/mL ng/mL Norketamine Negative 50 ng/mL ng/mL Normeperidine Negative 50 ng/mL ng/mL Noroxycodone Negative 50 ng/mL ng/mL PCP Negative 25 ng/mL ng/mL Phentermine Negative 50 ng/mL ng/mL Zaleplon Negative 20 ng/mL ng/mL Trazodone Negative 50 ng/mL ng/mL Presumptive Drug Test - Spec imen Type Urine Reviewed date:10/27/2024 10:26:09 AM Interpretation: Performing Lab: Notes/Report: Opiates Screen Negative 150 ng/mL ng/ml Benzodiazepines Screen Negative 150 ng/mL ng/ml Amphetamines Screen Negative 600 ng/mL ng/ml Cocaine Screen Negative 150 ng/mL ng/ml Methadone Screen Negative 150 ng/mL ng/ml 6-ADDI Screen Negative 60 ng/mL ng/ml Methamphetamine Screen Negative 600 ng/mL ng/ml Fentanyl Screen Negative 9 ng/mL ng/ml Tricyclic Antidepressants Screen Negative 150 ng/mL ng/m l Buprenorphine Screen Negative 75 ng/mL ng/ml Cannabis Screen Negative 150 ng/mL ng/ml REASON FOR VISIT UDS Medications Medication SIG [...] Active Encounters Encounter Location Date Provider Diagnosis Dr. 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.899) Plan Of Treatment Next Appt Details Provider Name:Cindy Dhillon, 12:40:00 PM, [address] [place] [address], [phone], History and Physical Notes * HPI (History [...] Notes * Daniel GUILLENDOB:1955 (69 yo M)Acc No.[id number]:10/16/2024 Patient: Daniel Bazan Provider: Khadijah Dhillon MD :1955 A ge:69 Y S ex:Male Date:10/16/2024 Phone: Address:[address] [place], [place] [phone] Subjective: * Chief Complaints: * U DS [...] drug - Z79.899 (Primary) Plan: * Treatment: Value Reference Range 6 -ADDI Negative 20 ng/mL - ng/mL * 7 -Aminoclonazepam Negative 50 ng/mL - ng/mL * a -Hydroxyalprazolam Negative 50 ng/mL - ng/mL * A lprazolam Negative 50 ng/mL - ng/mL * A mitriptyline Negative 50 ng/mL - ng/mL * A mphetamine Negative 50 ng/mL - ng/mL * B enzoylecgonine Negative 50 ng/mL - ng/mL * B uprenorphine Negative 25 ng/mL - ng/mL * C arboxyzolpidem 199 H 100 ng/mL - ng/mL * C arisoprodol Negative 50 ng/mL - ng/mL * C lonazepam Negative 50 ng/mL - ng/mL * C odeine Negative 50 ng/mL - ng/mL * C yclobenzaprine Negative 50 ng/mL - ng/mL * D esalkylflurazepam Negative 50 ng/mL - ng/mL * D esmethyldoxepin Negative 50 ng/mL - ng/mL * D iazepam Negative 50 ng/mL - ng/mL * D oxepin Negative 50 ng/mL - ng/mL * E DDP Negative 50 ng/mL - ng/mL * F entanyl Negative 3 ng/mL - ng/mL * F lunitrazepam Negative 50 ng/mL - ng/mL * F lurazepam Negative 50 ng/mL - ng/mL * G abapentin Negative 500 ng/mL - ng/mL * H ydrocodone Negative 50 ng/mL - ng/mL * H ydromorphone Negative 50 ng/mL - ng/mL * I mipramine Negative 50 ng/mL - ng/mL * K etamine Negative 50 ng/mL - ng/mL * L orazepam Negative 50 ng/mL - ng/mL * M DMA Negative 50 ng/mL - ng/mL * M eperidine Negative 50 ng/mL - ng/mL * M eprobamate Negative 50 ng/mL - ng/mL * M ethadone Negative 50 ng/mL - ng/mL * M ethamphetamine Negative 200 ng/mL - ng/mL * M ethylphenidate Negative 50 ng/mL - ng/mL * M itragynine Negative 50 ng/mL - ng/mL * M orphine Negative 50 ng/mL - ng/mL * N aloxone Negative 50 ng/mL - ng/mL * N altrexone Negative 50 ng/mL - ng/mL * N orbuprenorphine Negative 25 ng/mL - ng/mL * N ordiazepam Negative 50 ng/mL - ng/mL * N orfentanyl Negative 10 ng/mL - ng/mL * N orhydrocodone Negative 50 ng/mL - ng/mL * N orketamine Negative 50 ng/mL - ng/mL * N ormeperidine Negative 50 ng/mL - ng/mL * N oroxycodone Negative 50 ng/mL - ng/mL * N orpropoxyphene Negative 50 ng/mL - ng/mL * N ortriptyline Negative 50 ng/mL - ng/mL * o -Desmethyltramadol Negative 50 ng/mL - ng/mL * O xazepam Negative 50 ng/mL - ng/mL * O xycodone Negative 50 ng/mL - ng/mL * O xymorphone Negative 50 ng/mL - ng/mL * P CP Negative 25 ng/mL - ng/mL * P hentermine Negative 50 ng/mL - ng/mL * P regabalin >2000 H 200 ng/mL - ng/mL * P ropoxyphene Negative 50 ng/mL - ng/mL * R italinic Acid Negative 50 ng/mL - ng/mL * T apentadol Negative 50 ng/mL - ng/mL * T emazepam Negative 50 ng/mL - ng/mL * T HC Negative 50 ng/mL - ng/mL * T ramadol Negative 50 ng/mL - ng/mL * T razodone Negative 50 ng/mL - ng/mL * Z aleplon Negative 20 ng/mL - ng/mL * Cindy Dhillon 10/27/2024 10:26 :03 AM CDT >reviewed ?LAB: Presumptive Drug Test - Specimen Type Urine (Collection Date & Time - 10/16/2024 11:04 AM)* Value Reference Range A mphetamines Screen Negative 600 ng/mL - ng/ml * B enzodiazepines Screen Negative 150 ng/mL - ng/ml * C ocaine Screen Negative 150 ng/mL - ng/ml * M ethamphetamine Screen Negative 600 ng/mL - ng/ml * M ethadone Screen Negative 150 ng/mL - ng/ml * O piates Screen Negative 150 ng/mL - ng/ml * T ricyclic Antidepressants Screen Negative 150 ng/m L - ng/ml * C annabis Screen Negative 150 ng/mL - ng/ml * 6 -ADDI Screen Negative 60 ng/mL - ng/ml * F entanyl Screen Negative 9 ng/mL - ng/ml * B uprenorphine Screen Negative 75 ng/mL - ng/ml * Cindy Dhillon 10/27/2024 10:26 :03 AM CDT >reviewed * Procedure Codes: 8 0307 DRUG TEST PRSMV CHEM [id number] Drug test def 1-7 classes Billing Information: * Procedure Codes: 14793 DRUG TEST PRSMV CHEM ANLYZR. G0480 Drug test def 1-7 classes. * Electronic signature of Burke Dhillon MD on 10/30/2024 at 03:04 PM CDT Sign off status: Pending * Provider: Khadijah Dhillon MD Date: 0 10/16/2024 Generated for Gerhard ng/Famelodieg/eTransmitting on: 0 10/30/2024 03:04 PM CDT
[2024-10-30] VITALS (11 sets, daily range): BP systolic 123–142; BP diastolic 61–75; PULSE 107–126; RESP 20–22; TEMP 36.4–36.6; O2SAT 92–97; BMI 23.0
--- NOTE | ~2024-10-30 | XR_ITS ---
XR chest 1V portable 10/30/2024 16:28 Indication: Dyspnea Procedure: AP portable chest Comparison: CT dated 10/30/2024 Findings: Heart size normal. There are subtle bilateral interstitial infiltrates. Portacatheter tip in the SVC. No significant effusion or pneumothorax. Impression: 1: Subtle bilateral interstitial infiltrates, suspicious for mild edema or pneumonia. Reviewed, dictated and finalized at location O. Impression: 1: Subtle bilateral interstitial infiltrates, suspicious for mild edema or pneu monia.
--- NOTE | ~2024-10-30 | CT_ITS ---
EXAMINATION: CTA chest PE protocol DATE: 10/30/2024 16:43 CDT INDICATION: Dyspnea TECHNIQUE: Computed tomographic angiography (CTA) of the chest was performed with 100 mL Omnipaque-350 intravenous contrast. The dose-length product was 389.27 mGy-cm. Maximum intensity projection 3D-reconstructions of the aorta and other arteries were constructed by the technologist on a separate workstation. COMPARISON: CT dated 10/21/2024. FINDINGS: Heart size normal. No significant pleural or pericardial effusion. No thoracic lymphadenopathy. There is subcapsular fluid surrounding the spleen which may be secondary to prior trauma. No definite splenic laceration identified. Spleen appears enlarged. Irregular liver surface, suspicious for cirrhosis. Study is technically adequate without evidence for pulmonary embolism. No thoracic lymphadenopathy. There is mild interlobular septal thickening bilaterally with scattered areas of groundglass opacification primarily involving the lower lobes. Mild emphysema. No suspicious pulmonary nodules or masses. IMPRESSION: 1. Interstitial changes bilaterally with subtle patchy groundglass opacities of the lower lobes. Differential diagnosis includes atypical or viral pneumonia, early interstitial lung disease and pulmonary edema. 2: Subcapsular fluid surrounding the spleen, suspicious for hemorrhage. No laceration identified. Reviewed, dictated and finalized at location O. IMPRESSION: 1. Interstitial changes bilaterally with subtle patchy groundglass opacities of the lower lobes. Differential diagnosis includes atypical or viral pneumonia, early interstitial lung disease and pulmonary edema. 2: Subcapsular fluid surrounding the spleen, suspicious for hemorrhage. No lace ration identified.
--- OUTSIDE RECORDS SUMMARY | 2024-10-30 15:04 | XMS_ITS | Encounter Summary ---
Author Organization [facility] Health Address [address] [place] [address] Care Team Providers Care Board Certified Behavioral Analyst Name Role Phone Shay Hooper MD Primary Care Provider Encounter Details Date Type Department Care Team (Late Contact Info) Description 08/01/2018 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 Gender Identity Not on file Sexual Orientation Not on file documented as of this encounter Plan of Treatment Upcoming Encounters Date Type Department Care Team (Late Contact Info) Description 05/08/2025 11:00 AM CDT Office Visit [facility] [address] [facility], [place] [phone] Phyllis Pereira, LEGAL DEPARTMENT MANAGER-MATERIALS CLERK [address] [facility] 3F [place] [address] documented as of this encounter Visit Diagnoses Not on filedocumented in this encounter Care Teams Board Certified Behavioral Analyst Relationship Specialty Start Date End Date Shay Hooper MD [address] [address] PCP - General Internal Medicine 11/14/17 documented as of this encounter
--- OUTSIDE RECORDS SUMMARY | 2024-10-30 15:04 | XMS_ITS | Clinical Summary ---
Author Organization [facility] Rika Molina Address [address] [place] [address] Care Team Providers Care Field Property Loss Specialist Name Role Phone Shay Hooper MD [...] Encounters Date Type Department Care Team Description 10/30/2024 Orders Only [facility] - [place] [address] Tommy Cassidy MD 10/28/2024 Orders Only [facility] - [place] [address] [place] [phone] Tommy Cassidy MD 10/27/2024 Orders Only [facility] - [place] [address] [place] [phone] Tommy Cassidy MD Hepatocarcinoma ([facility]/HCC) 10/23/2024 Refill [facility] - [place] [address] [place] [phone] Tommy Cassidy MD 10/23/2024 Orders Only [facility] - [place] [address] [place] [phone] Tommy Cassidy MD 10/13/2024 Orders Only [facility] - [place] [address] [place] [address] Tommy Cassidy MD Hepatocarcinoma ([facility]/HCC) 10/09/2024 Telephone [facility] - [place] [address] [place] [address] Tommy Cassidy MD Jury Duty letter 10/08/2024 Orders Only [facility] - [place] [address] Tommy Cassidy MD 09/29/2024 Orders Only [facility] - [place] [address] [place] [phone] Tommy Cassidy MD Hepatocarcinoma (CMS/HCC) 09/23/2024 Orders Only [facility] - [place] [address] [place] [phone] Tommy Cassidy MD 09/22/2024 Orders Only [facility] - [place] [address] Tommy Cassidy MD Benign hypertension 09/19/2024 Orders Only [facility] - [place] [address] [place] [address] Tommy Cassidy MD 09/18/2024 Orders Only [facility] - [place] [address] [place] [address] Tommy Cassidy MD 09/16/2024 9:45 AM CDT Office Visit [facility] [place] [address] [place] [address] Tommy Cassidy MD Hepatocarcinoma (CMS/HCC) (Primary Dx) 09/15/2024 Orders Only [facility] - [place] [address] [place] [address] Tommy Cassidy MD Hepatocarcinoma (CMS/HCC) 09/12/2024 Orders Only [facility] - [place] [address] [place] [address] Tommy Cassidy MD 09/08/2024 Refill [facility] - [place] [address] Tommy Cassidy MD 09/08/2024 Orders Only [facility] - [place] [address] [place] [address] Tommy Cassidy MD Benign hypertension 09/01/2024 Orders Only [facility] - [place] [address] [place] [address] Tommy Cassidy MD Hepatocarcinoma (CMS/HCC) 08/27/2024 Orders Only [facility] - [place] [address] [place] [address] Tommy Cassidy MD 08/25/2024 Orders Only [facility] - [place] [address] Tommy Cassidy MD Benign hypertension 08/22/2024 Orders Only [facility] [place] [address] Tommy Cassidy MD 08/21/2024 Orders Only [facility] - [place] [address] Tommy Cassidy MD 08/19/2024 Orders Only [facility] - [place] [address] [place] [address] Tommy Cassidy MD 08/18/2024 Orders Only [facility] - [place] [address] [place] [address] Tommy Cassidy MD Hepatocarcinoma ([facility]/HCC) 08/11/2024 Orders Only [facility] - [place] [address] [place] [phone] Tommy Cassidy MD Benign hypertension 08/06/2024 Orders Only [facility] - [place] [address] [place] [address] Tommy Cassidy MD 08/05/2024 9:45 AM CDT Office Visit [facility] - [place] [address] [place] [address] Tommy Cassidy MD Hepatocarcinoma (CMS/HCC) (Primary Dx) 08/05/2024 Orders Only [facility] - [place] [address] [place] [address] Tommy Cassidy MD 08/04/2024 Orders Only [facility] - [place] [address] [place] [address] Tommy Cassidy MD Hepatocarcinoma (CMS/HCC) 08/01/2024 Orders Only [facility] - [place] [address] [place] [address] Tommy Cassidy MD 07/31/2024 Orders Only [facility] - [place] [address] [place] [phone] Tommy Cassidy MD from Last 3 Months Family History Relation [...] 180.3 cm (5' 11) 04/09/2023 8:51 AM [place] [facility] Body Mass Index 23.38 04/09/2023 8:51 AM [facility] Plan of Treatment Upcoming Encounters Date Type Department Care Team (Late st Contact Info) Description 11/14/2024 9:30 AM CDT Office Visit [facility] - [place] [address] [facility] [address] [place] [address] Tommy Cassidy MD [address] [place] [address] Health Maintenance Due Date Last [...] Q 6 MONTHS 03/21/2018 09/18/2017 [place] Prev entative Visit/Annual Wellness Visit 02/27/2024 11/15/2023, 09/19/2022 INFLUENZA VACCINE (#1) 2024 DTAP/TDAP/TD VACCINES (2 - Td or Tdap) 02/06/2027 Abdominal Aortic Aneurysm (AAA) Screening Completed 07/29/2024 Medical Devices Implanted Type Area Practice Office Associate Device Identifier Shelf Expiration Date Model / Serial / Lot Stents Bilateral Legs Procedures Procedure Name Priority Date/Time Associated Diagnosis Comments COMPREHENSIVE METABOLIC PANEL Routine 10/30/2024 11:48 AM CDT BASIC METABOLIC PANEL Routine 10/28/2024 12:26 PM CDT CBC WITH AUTODIFFERENTIAL Routine 2024 12:[address] CHEST ABDOMEN PELVIS WO CONT Routine 10/21/2024 11:09 AM CDT CBC WITH AUTODIFFERENTIAL Routine 2024 12:35 PM [...] WO CONTRAST Routine 07/29/2024 11:05 AM CDT from Last 3 Months or Most Recently Relevant to Health Maintenance Results * COMPREHENSIVE METABOLIC PANEL (10/30/2024 11:48 AM CDT) Only the most recent of4 resultswithin the time period is included. Blood us Tommy Cassidy MD CHEMISTRY ORDERABLES Final Resu lt * BASIC METABOLIC PANEL (10/28/2024 12:26 PM CDT) Only the most recent of5 resultswithin the time period is included. Blood us Tommy Cassidy MD CHEMISTRY ORDERABLES Final Resu lt * CBC WITH AUTODIFFERENTIAL (10/28/2024 12:25 PM CDT) Only the most recent of4 resultswithin the time period is included. Blood us Tommy Cassidy MD HEMATOLOGY ORDERABLES Final Res ult * CT CHEST ABDOMEN PELVIS WO CONT (10/21/2024 11:09 AM CDT) Anatomical Region Laterality Modality Chest Computed Tomogra phy us Tommy Cassidy MD CT ORDERABLES Final Result * CBC WITH DIFFERENTIAL (09/10/2024 2:48 PM CDT) Only the most recent of4 resultswithin the time period is included. Blood us Tommy Cassidy MD HEMATOLOGY ORDERABLES Final Res ult * CT ABDOMEN PELVIS WO CONTRAST (07/29/2024 11:05 AM CDT) Anatomical Region Laterality Modality Abdomen Computed Tomogra phy us Tommy Cassidy MD CT ORDERABLES Final Result from Last 3 Months or Most Recently Relevant to Health Maintenance Insurance [facility] Address: [address] [address] [place], [place] [address] MCR Advance Directives For more information, please contact: [phone] * Full Code (Latest Code Status on File) Date Activated Date Inactivated Comments 04/04/2023 11:13 AM 04/04/2023 6:32 PM Care Teams Field Property Loss Specialist Relationship Specialty Start Date End Date Shay Hooper MD PCP - General Internal Medicine 01/01/23
--- OUTSIDE RECORDS SUMMARY | 2024-10-30 15:04 | XMS_ITS | Patient Health Record ---
Author Organization [facility] Address [address] [facility] AYUSH Goss [id number] Care Team Providers Care Model Maker Plastic Name Role Phone Cindy Dhillon Unavailable [phone] Allergies No Known Allergies Results Component Value Reference Range Flag Notes [...] ng/ml Cannabis Screen Negative 150 ng/mL ng/ml Reason For Referral No Information Medications Medication [...] Hyperglycemia due to type 2 diabetes mellitus (421722692550011) Type 2 diabetes mellitus with hyperglycemia (E11.65) Active confirmed Problem Mixed hyperlipidemia (088998838) Mixed hyperlipidemia (E78.2) Active confirmed Problem Chronic fatigue syndrome (disorder) (28702702) Chronic fatigue, unspecified (R53.82) Active confirmed Problem Long-term current use of insulin (859693810) half-way (current) use of insulin (Z79.4) Active confirmed Problem Hepatocellular carcinoma (35271671) Hepatocellular carcinoma (C22.0) Active confirmed Problem Chronic kidney disease stage 3A (562229143) Stage 3a chronic kidney disease (N18.31) Active confirmed Vital Signs Heart Rate 94 /min 10/16/2024 Height-cm 180.34 cm 10/16/2024 Oximetry 97 % 10/16/2024 Blood pressure diastolic 64 mm Hg 10/16/2024 Weight-kg 75.48 kg 10/16/2024 Height 71 in 10/16/2024 Blood pressure systolic 122 mm Hg 10/16/2024 Weight 166.4 lbs 10/16/2024 BMI 23.21 kg/m2 10/16/2024 Encounters Encounter Location Date Provider Diagnosis Dr. Lior White - [address] [place] [address] 10/16/2024 Cindy Dhillon office automation clerk use of orquidea g Z79.[address] Dhillon [address] [place] [address] 07/11/2024 Cindy Dhillon Type 2 diabetes josey itus with hyperglycemia E11.65 ; office automation clerk (current) use of insulin Z79.4 ; Mixed hyperlipidemia E78.2 ; Stage 3a chronic kidney disease N18.31 ; Hepatocellular carcinoma C22.0 ; Dietary counseling and surveillance Z71.3 and Chronic fatigue, unspecified R53.[address] Dhillon [address] [place] [phone] 10/16/2024 Cindy Dhillon Type 2 diabetes josey itus with hyperglycemia E11.65 ; office automation clerk (current) use of insulin Z79.4 ; Mixed hyperlipidemia E78.2 ; Stage 3a chronic kidney disease N18.31 and Dietary counseling and surveillance Z71.[address] Dhillon [address] [place] [address] 09/30/[address] Dhillon [address] [place] [phone] 10/01/2024 Cindy Dhillon Assessments Encounter Date Diagnosis (ICD Code) Assessment Notes Treatment Notes Treatment Clinical Notes Section Notes 07/11/2024 Type 2 diabetes mellitus with hyperglycemia (ICD-10 - E11.65) 07/11/2024 office automation clerk (current) use of insulin (ICD-10 - Z79.4) 10/16/2024 Type 2 diabetes mellitus with hyperglycemia (ICD-10 - E11.65) 10/16/2024 office automation clerk use of drug (ICD-10 - Z79.899) 10/16/2024 office automation clerk (current) use of insulin (ICD-10 - Z79.4) [...] erythropoietin injections for anemia as prescribed by forest law and policy professor 5. Tobacco Use- Steaming Cabinet Tender on smoking cessation and its importance, especially [...] procedures, referring and communicating with other health hospice patient care secretary, documenting clinical information in the electronic or other health record, independently interpreting results and communicating results to the patient/family/car egiver and care coordinating patient plan. Patient alert and oriented x 4 and aware of discussion noted above and in agreeance to plan in management of type 2 DM/controlled, alf use of insulin/CGM need, mixed hyperlipidemia, stage [...] tech-savvy individual if problems persist- Recommended contacting [employer] customer support for further assistance and replacement of defective sensors Spent 25 minutes preparing to see the patient (ex review of tests/chart), obtaining and / or reviewing separately obtained history, performing a medically appropriate examination and/or evaluation, counseling and educating the patient/family/car egiver, ordering medications, tests, or procedures, referring and communicating with other health hospice patient care secretary, documenting clinical information in the electronic or [...] Test Name Order Date .COMPREHENSIVE METABOLIC PANEL (60039) C MP 07/11/2024 .LIPID PANEL, STANDARD (7600) 07/11/2024 .ALBUMIN, RANDOM URINE W/CREATININE (651 7) 07/11/2024 .CBC (INCLUDES DIFF/PLT) (6399) 07/12/19 25 .HEMOGLOBIN A1c (496) 07/11/2024 C-PEPTIDE (372) 07/11/2024 T4, FREE (866) 07/11/2024 TSH (899) 07/11/2024 T3, FREE (50122) 07/11/2024 Next Appt Details Provider Name:Cindy Dhillon, 12:40:00 PM, [address] [place] [address], [phone], Insurance Providers Payer Name Payer Address Payer Phone Subscriber Number Group Number Insured Name Patient Relationship to Insured Coverage Start Date Coverage End Date [employer] [address] [address] [place] [address] [id number] Daniel Treviño Self - patient is the insured Medical (General) History Medical History History ICD Code diabeties
--- OUTSIDE RECORDS SUMMARY | 2024-10-30 15:04 | XMS_ITS | Encounter Summary ---
Author Organization [facility] Address [address] [place] [place] [address] Care Team Providers Care Prepress Operator Name Role Phone Shay Hooper MD Primary Care Provider Encounter Details Date Type Department Care Team (Late st Contact Info) Description 08/01/2018 [facility] Outpatient Visit [facility] [address] [place] [address] [place] [address] [phone] Social History Tobacco Use Types Packs/Day Years Used Date Smoking Tobacco: Every Day Cigarettes Smokeless Tobacco: Never Alcohol Use Standard Drinks/Week Comments Yes 0 (1 standard drink = 0.6 oz pur e alcohol) RARE Sex and Gender Information Value Date Recorded Sex Assigned at Not on file 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 [address] [place] [address] documented as of this encounter Visit Diagnoses Not on filedocumented in this encounter Care Teams Prepress Operator Relationship Specialty Start Date End Date Shay Hooper MD [address] [place] [phone] PCP - General Internal Medicine 11/14/17 documented as of this encounter
--- OUTSIDE RECORDS SUMMARY | 2024-10-30 15:04 | XMS_ITS | Encounter Summary ---
Author Organization [facility] [employer] [facility] Address [address] [place] [address] Care Team Providers Care Managing Cognitive Engineer Name Role Phone Shay Hooper MD Primary Care Provider Encounter Details Date Type Department Care Team (Late st Contact Info) Description 10/30/2024 Orders Only [facility] Oncology and Hematology - [place] [address] [place] [address] Tommy Cassidy MD [address] [place] [address] Social History Tobacco Use Types Packs/Day [...] Description 11/14/2024 9:30 AM CDT Office Visit [facility] Oncology and Hematology - [place] [address] [place] [address] Tommy Cassidy MD [address] [place] [address] documented as of this encounter Procedures Procedure Name Priority Date/Time Associated Diagnosis Comments COMPREHENSIVE METABOLIC PANEL Routine 10/30/2024 11:48 AM CDT documented in this encounter Results * COMPREHENSIVE METABOLIC PANEL (10/30/2024 11:48 AM CDT) Blood Tommy Cassidy MD CHEMISTRY ORDERABLES Final Resu lt documented in this encounter Visit Diagnoses Not on filedocumented in this encounter Care Teams Managing Cognitive Engineer Relationship Specialty Start Date End Date Shay Hooper MD PCP - General Internal Medicine 01/01/23 documented as of this encounter
--- OUTSIDE RECORDS SUMMARY | 2024-10-30 15:04 | XMS_ITS | Encounter Summary ---
Author Organization [facility] [employer] [facility] Address [address] [place] [address] Care Team Providers Care Closer On Name Role Phone Shay Hooper MD Primary Care Provider Encounter Details Date Type Department Care Team (Late Contact Info) Description 10/27/2024 Orders Only [facility] Oncology and Hematology [facility] [address] [place] [address] Tommy Cassidy MD [address] [place] [phone] Hepatocarcinoma (CMS/HCC) Social History Tobacco Use Types Packs/Day Years [...] Description 11/14/2024 9:30 AM CDT Office Visit [facility] Oncology and Hematology - [place] [address] [place] [address] Tommy Cassidy MD [address] [place] [address] documented as of this encounter Visit Diagnoses Diagnosis Hepatocarcinoma (CMS/HCC) Malignant neoplasm of liver, primary documented in this encounter Care Teams Closer On Relationship Specialty Start Date End Date Shay Hooper MD PCP - General Internal Medicine 01/01/23 documented as of this encounter
--- OUTSIDE RECORDS SUMMARY | 2024-10-30 15:04 | XMS_ITS | Clinical Summary ---
Author Organization [facility] Address [address] [place] [address] Phone Care Team Providers Care Log Chipper Name Role Phone Provider, Not On File [...] and at bedtime. Active ergocalciferol (VITAMIN D) 59865 UNIT Capsule Take 50,000 Units by mouth. [...] 05/05/2005 Zoster Immunization (1 of 2) 05/05/2005 Influenza Immunization (#1) 2024 SARS-COV-2 Immunization (2023-) 10/27/2024 Respiratory Syncytial Virus (RSV) Immunization (Adult) (1 [...] this topic Medical Devices Implanted Type Area Furniture Delivery Driver Device Identifier Shelf Expiration Date Model / Serial / Lot Implant Nasal 16mm Steroid Release Zip Tie Propel Mometasone Furoate 370 Mcg Mini 4mm - [id number] Implanted:Qty: 1 on 10/03/2022 by Lalito Acuña MD at [facility] IMPLANT Left: Sinus [employer] 09/28/2023 [id number] / [id number] / [id number] Implant Nasal 16mm Steroid Release Zip Tie Propel Mometasone Furoate 370 Mcg Mini 4mm - [id number] Implanted:Qty: 1 on 10/03/2022 by Lalito Acuña MD at [facility] IMPLANT Right: Sinus [employer] 11/09/2023 [id number] / [id number] / [id number] Explanted Type Area Furniture Delivery Driver Device Identifier Shelf Expiration Date Model / Serial / Lot Implant Nasal 16mm Steroid Release Zip Tie Propel Mometasone Furoate 370 Mcg Mini 4mm - [id number] Explanted:Qty: 1 on 10/03/2022 at [facility] IMPLANT Right: Sinus [employer] 09/28/2023 [id number] / [id number] / [id number] Insurance MEDICARE C [employer] Care Teams Log Chipper Relationship Specialty Start Date End Date Provider, Not On File [place] PCP - General 10/03/22
--- OUTSIDE RECORDS SUMMARY | 2024-10-30 15:04 | XMS_ITS | Encounter Summary ---
Author Organization [facility] [employer] [facility] Address [address] [place] [address] Care Team Providers Care Postmaster Relief Name Role Phone Shay Hooper MD Primary Care Provider Encounter Details Date Type Department Care Team (Late st Contact Info) Description 10/28/2024 Orders Only [facility] Oncology and Hematology - [place] [address] [place] [address] Tommy Cassidy MD [address] [facility] [address] [place] [address] Social History Tobacco Use Types Packs/Day [...] Description 11/14/2024 9:30 AM CDT Office Visit [facility] Oncology and Hematology - [place] [address] [place] [address] Tommy Cassidy MD [address] [place] [address] documented as of this encounter Procedures Procedure Name Priority Date/Time Associated Diagnosis Comments BASIC METABOLIC PANEL Routine 10/28/2024 12:26 PM CDT CBC WITH AUTODIFFERENTIAL Routine 2024 12:25 PM CDT documented in this encounter Results * BASIC METABOLIC PANEL (10/28/2024 12:26 PM CDT) Blood us Tommy Cassidy MD CHEMISTRY ORDERABLES Final Resu lt * CBC WITH AUTODIFFERENTIAL (10/28/2024 12:25 PM CDT) Blood us Tommy Cassidy MD HEMATOLOGY ORDERABLES Final Res ult documented in this encounter Visit Diagnoses Not on filedocumented in this encounter Care Teams Postmaster Relief Relationship Specialty Start Date End Date Shay Hooper MD PCP - General Internal Medicine 01/01/23 documented as of this encounter
--- OUTSIDE RECORDS SUMMARY | 2024-10-30 15:04 | XMS_ITS | Encounter Summary ---
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 Gender Identity Not on file Sexual Orientation Not on file documented as of this encounter Plan of Treatment Not on file documented as of this encounter Visit Diagnoses Not on filedocumented in this encounter Care Teams Salary And Wage Administrator Relationship Specialty Start Date End Date Krish Hooper MD [address] [facility] [address] [place] [address] PCP - General Internal Medicine 12/07/17 Jorge Jorge DO [address] [place] [address] Medical Oncologist/Certified Legal Secretary Specialist Hematology and Oncology 12/11/18 Rene Harris MD [address] [place] [address] Consulting Physician Cardiology 02/13/24 Emiliano Washington DO [address] [facility] [address] [place] [address] Consulting Physician Nephrology 07/28/24 documented as of this encounter
--- OUTSIDE RECORDS SUMMARY | 2024-10-30 15:04 | XMS_ITS | Clinical Summary ---
Author Organization [facility] Address [address] [place] [address] Care Team Providers Care Noxious Weeds And Pest Inspector Name Role Phone Krish Hooper MD Primary Care Provide r Jorge Jorge DO Unavailable [phone] Rene Harris MD Unavailable Emiliano Washington DO Unavailable [phone] Allergies Active Allergy Reactions Criticality Noted Date [...] 2 (two) times a day 14 capsule 5 Active Active Problems Problem Noted Date Diagnosed Date Moderate protein-calorie malnutrition 07/26/2024 CAD S/P percutaneous coronary angioplasty 2023 Chest pain 01/29/2024 Thrombocytopenia, unspecified 08/23/2021 Transient cerebral ischemia 12/10/2017 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 09/17/2017 Secondary hypertension 09/17/2017 Other hyperlipidemia 09/17/2017 PVD (peripheral vascular disease) Encounters Date Type Department Care Team Description 08/04/2024 [facility] Post Discharge [place] [address] Cyn Ferris from Last 3 Months Immunizations Immunization Administration [...] on file 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 Gender Identity Not on file Sexual [...] Risk Assessment 07/28/2025 07/28/2024 eGFR 07/28/2025 07/28/2024, 06/02/2024, 07/26/2024, Additional history exists DTaP/Tdap/Td Vaccine (2 - Td or Tdap) 02/06/2027 02/06/2017 Medical Devices Implanted Type Area Head Animal Keeper Device Identifier Shelf Expiration Date Model / Serial / Lot Who@ Synergy Xd Monorail 4mm 32mm 144cm Delivery System 1 Access Port [id number] - [id number] Implanted:Qty: 1 on 02/12/2024 by Rene Harris MD at [facility] 11/28/2024 [id number] / / [id number] Procedures Procedure Name Priority Date/Time Associated Diagnosis Comments EGFR Routine 07/28/2024 5:50 AM CDT HEMOGLOBIN A1C Routine 09/18/2017 6:16 AM CDT LIPID PANEL STAT 09/18/2017 6:16 AM CDT from Last 3 Months or Most Recently Relevant to Health Maintenance Results * (ABNORMAL) eGFR (07/28/2024 5:50 AM CDT) [...] DO LAB BLOOD ORDERABLES Alicia l Result [facility] [address] [address] [place] [address] [phone] * (ABNORMAL) Hemoglobin A1c (09/18/2017 6:16 AM CDT) Hgb A1C 7.2(H) 4.0 - 5.6 % [facility] Estimated Average Glucose 160 mg/dL [facility] Comment: The ADA recommends reporting an estimated Average Glucose (eAG) with all Hemoglobin A1c results using the equation derived from a study of 507 normal and diabetic adults. Minority populations were underrepresented and children were not included. (Diabetes Care 31:3697-1134, 2008). The eAG is not equivalent to a fasting glucose. Blood specimen (specimen) 09/18/2017 6:16 AM CDT 09/18/2017 7:44 AM CDT Narrative [facility] - 09/18/2017 8:10 AM CDT Aiden Parker MD LAB BLOOD ORDERABLES Final Result [facility] Department [place] [address] * (ABNORMAL) Lipid panel (09/18/2017 6:16 AM CDT) Pathologist [facility] Cholesterol 140 30 - 200 mg/dL [facility] Comment: Interpretive Data Desirable: <200 mg/dL Borderline high: 200-239 mg/dL High: > or = 240 mg/dL Literature Reference: National Cholesterol Education Program (NCEP) Expert Panel on Detection, Evaluation, and Treatment of High Blood Cholesterol in Adults (Adult Treatment Panel III). Circulation 2004; 110:227. Current interpretive data was last revised on 2014. Triglycerides 95 0 - 150 mg/dL [facility] Comment: Interpretive Data Desirable: < 150 mg/dL Borderline High: 150 - 199 mg/dL High: 200 - 499 mg/dL Very High: > or = 499 mg/dL Literature Reference: See Cholesterol Current interpretive data was last revised on 2014. HDL 32(L) >=40 mg/dL [facility] Comment: Interpretive Data Less than 40 mg/dL - low; A major risk factor for heart disease. Greater than or equal to 60 mg/dL - High; considered protective of heart disease. Literature Reference: See Cholesterol Current interpretive data was last revised on 2014. LDL, calculated 89 10 - 129 mg/dL [facility] Comment: Interpretive Data Optimal: < 100 mg/dL Near Optimal: 100 - 129 mg/dL Borderline High: 130 - 159 mg/dL High: 160 - 189 mg/dL Very high: > or = 190 mg/dL Literature Reference: See Cholesterol Current interpretive data was last revised on 2014. Non-HDL Cholesterol 108 mg/dL [facility] Comment: Interpretive Data When triglycerides are >200 mg/dL, non-HDL C is a secondary target of therapy, with a goal 30 mg/dL higher than the identified LDL-C goal. Reference: See Cholesterol Reference. Current interpretive data was last revised 2014. Blood specimen (specimen) 09/18/2017 6:16 AM CDT 09/18/2017 7:42 AM CDT Narrative [facility] - 09/18/2017 6:[address] AIDEN PARKER 09/18/2017 17:13:25 CDT Aiden Parker MD LAB BLOOD ORDERABLES Final Result [facility] [place] [address] from Last 3 Months or Most Recently Relevant to Health Maintenance Insurance [facility] MEDICARE HMO [employer] MEDICARE HMO Advance Directives For more information, please contact: [phone] * Full Code (Latest Code Status on File) Date Activated Date Inactivated Comments 07/26/2024 1:39 AM 07/28/2024 4:56 PM * Full Code Date Activated Date Inactivated Comments 02/12/2024 3:20 PM 02/13/2024 2:36 PM * Full Code Date Activated Date Inactivated Comments 09/18/2017 5:47 AM 09/19/2017 5:05 PM Care Teams Noxious Weeds And Pest Inspector Relationship Specialty Start Date End Date Krish Hooper MD [address] [place] [address] PCP - General Internal Medicine 10/12/18 Jorge Jorge DO [address] [place] [address] Medical Oncologist/Operating Theatre Technician Hematology and Oncology 12/11/18 Rene Harris MD [address] [place] [address] Consulting Physician Cardiology 02/13/24 Emiliano Washington DO [address] [address] Consulting Physician Nephrology 07/28/24
--- OUTSIDE RECORDS SUMMARY | 2024-10-30 15:04 | XMS_ITS | Clinical Summary ---
Author Organization [facility] Facility Address [address] [address] Care Team Providers Care Farm Supervisor Name Role Phone Shay Hooper MD Primary Care Provider [phone] Allergies Active Allergy Reactions Criticality Noted Date Comments Codeine 05/10/2021 Penicillins 05/10/2021 Medications ergocalciferol 1.25 MG (99103 UT) capsule Take 1 capsule (50,000 Units [...] Description 10/14/2024 2:15 PM CDT Office Visit [facility], [facility] [address] [facility] [address] [place] [address] Emiliano Washington DO Stage 3b chronic kidney disease (HCC) (Primary Dx); Alcoholic fibrosis and sclerosis of liver; Esophageal varices associated with another disorder (HCC); Stroke, not otherwise specified (HCC); Peripheral vascular disease (HCC); Hypertensive chronic kidney disease; Type 2 diabetes mellitus with diabetic chronic kidney disease (HCC); Pure hypercholesterolemia, not otherwise specified; Tobacco use; Ischemic cardiomyopathy; Coronary atherosclerosis of unspecified type of vessel, [place] or graft; Aortic valve stenosis 10/14/2024 Refill [facility], [facility] [address] [phone] Cally Kruger, MAT TESTER 10/03/2024 Documentation Only [facility], [address] [address] Emiliano Washington, DO 10/03/2024 Documentation Only [facility], [address] [address] Emiliano Washington, DO 10/02/2024 Documentation Only [facility], [address] [address] Emiliano Washington, DO 10/02/2024 Documentation Only [facility], [address] [address] Emiliano Washington, DO 10/02/2024 Documentation Only [facility], [address] [address] Emiliano Washington, DO 09/12/2024 Refill [facility], [facility] [address] [phone] Emiliano Washington, DO 08/19/2024 12:00 PM CDT Office Visit [facility], [facility] [address] [address] Emiliano Washington DO Stage 3b chronic kidney disease (HCC) (Primary Dx); Alcoholic fibrosis and sclerosis of liver; Esophageal varices associated with another disorder (HCC); Stroke, not otherwise specified (HCC); Peripheral vascular disease (HCC); Hypertensive chronic kidney disease; Type 2 diabetes mellitus with diabetic chronic kidney disease (HCC); Pure hypercholesterolemia, not otherwise specified; Tobacco use; Ischemic cardiomyopathy; Coronary atherosclerosis of unspecified type of vessel, [place] or graft; Aortic valve stenosis 08/11/2024 Documentation Only [address] [address] Emiliano Washington DO 07/31/2024 Office Communication [address] [address] Adrianne Corbin 07/31/2024 Documentation Only [address] [address] Adrianne Corbin from Last 3 Months Social History Tobacco [...] st Contact Info) Description 03/17/2025 1:15 PM FRANCHISE BUSINESS CONSULTANT Office Visit [facility] [address] [facility] [address] [place] [address] Emiliano Washington DO [address] [facility] [address] Health Maintenance Due Date Last Done [...] Exam 03/01/2021 Influenza Vaccine (#1) 2024 Insurance [employer] Medicare Advance Directives Documents on File Type Date Recorded Patient Veneer Grader Expl anation Advance Care Planning 05/11/2021 11:05 AM Care Teams Farm Supervisor Relationship Specialty Start Date End Date Shay Hooper MD [address] [facility], [address] [place] [address] PCP - General Internal Medicine 03/01/21
--- OUTSIDE RECORDS SUMMARY | 2024-10-30 15:04 | XMS_ITS | Clinical Summary ---
Author Organization [facility] Address [address] [place] [address] Care Team Providers Care Foam Gun Operator Name Role Phone Shay Hooper MD Primary Care Provider Source Comments [facility],non-owned Affiliates and Associated Physician Practices is amultiple site organization consisting of ambulatory clinics and hospital sitesin [place], [place], [place] and [place]. This disclosure is being madepursuant to the Care Everywhere program and may not contain all information available regarding this patient. Last updated 17.[facility] Allergies Active Allergy Reactions Criticality Noted Date [...] Date Smoking Tobacco: Every Day Cigarettes 1 12.7 Started: 2012 Smokeless Tobacco: Never Tobacco Cessation:Ready to Q uit: Not Asked; Counseling Given: Not Answered Alcohol Use Standard Drinks/Week Comments Not Currently 0 (1 standard drink = 0.6 oz pur e alcohol) ocassional beer/nahid Sex and Gender Information Value Date Recorded Sex Assigned at Not on file Legal Sex Male 6:29 AM HR ADVISOR Gender Identity Not on file Sexual Orientation [...] Body Mass Index 28.17 12/29/2019 10:36 AM HR ADVISOR Plan of Treatment Upcoming Encounters Date Type Department Care Team (Late st Contact Info) Description 05/08/2025 11:00 AM CDT Office Visit [facility] [address] [facility], [place] [address] Phyllis Pereira, NEW MEDIA STRATEGIST-PROJECT LEAD [address] [facility] [place] [address] Health Maintenance Due Date Last Done Comments [...] years 1-dose series) 2015 AAA SCREENING 05/05/2020 DEPRESSION SCREENING 02/27/2024 MEDICARE AWV CALENDAR YEAR 2024 SCREENING FOR DIABETES 05/08/2024 9, 08/07/2018, 08/07/2018, Additional history exists COVID-19 VACCINE ( season) 2024 INFLUENZA VACCINE (#1) 2024 HIB VACCINE Aged Out No longer [...] On track( 025 12:09 PM CDT) Edita Busch RN Note: Expected end date: ongoing Interventions: [...] the bathroom Medical Devices Implanted Type Area Sound Effects Manager Device Identifier Shelf Expiration Date Model / Serial / Lot Patch Tien Eptfe 1 X 9 X .5mm - [id number] Implanted:Qty: 1 on 08/07/2018 by Angelo Wu MD at [facility] Right: Carotid [employer] 05/30/2023 [id number] / [id number] / Procedures Procedure Name Priority Date/Time Associated Diagnosis Comments GLUCOSE - POINT OF CARE Routine 08/08/2018 7:16 AM CDT from Last 3 Months or Most Recently Relevant to Health Maintenance Results * (ABNORMAL) GLUCOSE - POINT OF CARE (08/08/2018 7:16 AM CDT) Glucose WB/POC 265(H) 70 - 106 mg/dL 08/08/2018 8:34 AM CDT [facility] Specimen Type Venous 08/08/2018 8:34 AM CDT [facility] Blood BLOOD SPECIMEN / Unknown 08/08/2018 7:16 AM CDT 08/08/2018 8:34 AM CDT Narrative [facility] - 08/08/2018 8:34 AM CDT (2) Provider Notified us Angelo Wu MD LAB - POINT OF CARE ORDERABL ES Final Result [facility] [address] [place] [address] from Last 3 Months or Most Recently Relevant to Health Maintenance Insurance [employer]NA MEDICARE ADV HMO & PPO Member Subscriber Plan / Payer (Ef fective 2022-Present) Name:Jack Treviño Relation to Subscriber:Self Name:Jack Treviño Payer ID:[id number] (NAIC) Type:Medicare-Managed Care Address: [place] [id number] HUMANA SELF PAY NO INSURANCE Member Subscriber Plan / Payer (Ef fective for All Dates) Name:Jack Treviño Member ID:Not on file Relation to Subscriber:Not on file Name:JACK TREVIÑO Subscriber ID:Not on file (Home) Address: [address] [place] [address] Payer ID:Not on file Group ID:Not on file Type:Self Pay Address: [place], [place] HUMANA MEDICARE ADV HMO & PPO HU[employer]NA MEDICARE ADV HMO & PPO Advance Directives * Full Code (Latest Code Status on File) Date Activated Date Inactivated Comments 08/07/2018 5:20 PM 08/08/2018 1:06 PM Care Teams Foam Gun Operator Relationship Specialty Start Date End Date Shay Hooper MD [address] [phone] PCP - General Internal Medicine 11/14/17
--- OUTSIDE RECORDS SUMMARY | 2024-10-30 15:04 | XMS_ITS | Encounter Summary ---
Author Organization [facility] Address [address] [facility] [place] [address] Care Team Providers Care Autotransfusionist Name Role Phone Shay Hooper MD Primary Care Provider Encounter Details Date Type Department Care Team (Late st Contact Info) Description 10/23/2018 Lab Requisition [facility] Care Pathology Lab [address] [place] [address] Luna Hernandez MD [address] [place] [address] Illness Social History Tobacco Use Types Packs/Day Years Used Date Smoking Tobacco: Every Day Cigarettes Smokeless Tobacco: Never Alcohol Use Standard Drinks/Week Comments Yes 0 (1 standard drink = 0.6 oz pur e alcohol) RARE Sex and Gender Information Value Date Recorded Sex Assigned at Not on file Legal Sex Male 6:29 AM 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, [place] [phone] Phyllis Pereira, TEACHER-INTERNAL COMBUSTION ENGINEER [address] [facility] [address] [place] [address] documented as of this encounter Procedures Procedure Name Priority Date/Time Associated Diagnosis Comments PATHOLOGY TISSUE Routine 10/22/2018 3:19 PM CDT Illness documented in this encounter Results * PATHOLOGY TISSUE (10/22/2018 3:19 PM CDT) Case Report Surgical Pathology Report Case: [id number] Authorizing Provider: Luna Hernandez MD Collected: 10/22/2018 03:19 PM Ordering Location: [facility] Pathology Lab Received: 10/23/2018 03:19 PM Pathologist: Floyd Rodriguez MD Specimen: Slide Consultation, [id number] 10/24/2018 10:17 AM CDT [facility] [...] LAB Gross Description Prepared slides received from [facility] labeled [id number]. All material will be returned. 10/24/2018 10:17 AM T [facility] PATHOLOGY LAB Disclaimer The performance characteristics of all immunohistochemical and indirect immunofluorescence stains (if any) cited in this report were determined by the Histopathology Laboratory of [facility]. Some of these tests were developed [...] attending (teaching) pathologist. 10/24/2018 10:17 AM T [facility] PATHOLOGY LAB Embedded Images 10/24/2018 10:17 AM T [facility] LAB Pathology/Cytolo gy SURGICAL PATHOLOGY CONSULTATION AND REPORT ON REFERRED SLIDES PREPARED ELSEWHERE / Unknown 10/22/2018 3:19 PM CDT 10/23/2018 3:19 PM CDT us Luna Hernandez MD LAB - PATHOLOGY/CYTOLOGY ORDERAB LES Final Result Performing Organization Address City/State/[facility] Co de Phone Number [facility] PATHOLOGY LAB [address] [phone] documented in this encounter Visit Diagnoses Diagnosis Illness Other unknown and unspecified cause of morbidity or mortality documented in this encounter Care Teams Autotransfusionist Relationship Specialty Start Date End Date Shay Hooper MD [address] [phone] PCP - General Internal Medicine 11/14/17 documented as of this encounter
--- NOTE | 2024-10-30 15:06 | ECG_ITS ---
Test Date: 2024-10-30 15:11:26 Measurements Intervals [place] Rate: 114 P: -72 [place]: 138 QRS: 7 QRSD: 148 T: 117 QT: 378 QTc: 523 Interpretive Statements SINUS RHYTHM POSSIBLE LEFT ATRIAL ENLARGEMENT [-0.1mV P-WAVE IN V1/V2] LEFT BUNDLE BRANCH BLOCK [120+ ms QRS DURATION, 80+ ms Q/S IN V1/V2, 85+ ms R IN I/aVL/V5/V6] Compared to ECG 03/24/2024 14:33:29 NO SIGNIFICANT CHANGES Electronically Signed On 10-31-2024 12:13:45 CDT by Shawn Vyas M.D.
--- NOTE | 2024-10-30 15:14 | ED.GENADULT ---
HPI - General Adult General Chief complaint: Shortness of Breath/Dyspnea Stated complaint: SOB Chest pain Time Seen by Provider: 10/30/24 15:05 History of Present Illness HPI narrative: Patient is 69-year-old gentleman who presents emergency department with chief complaint of chest pain and shortness of breath patient reports he has been treated for an upper respiratory infection and also is being treated for liver cancer with immunotherapy the patient reports he had his immunotherapy today and then started having chest pain and started having increasing shortness of breath the patient states that his symptoms have gotten worse to go nitroglycerin prior to arrival in does report that he has prior history of cardiac disease and has had stents placed in his heart. Related Data Home Medications ?Medication ?Instructions ?Recorded ?Confirmed ?Last Taken ?Type insulin aspart (niacinamide) See Protocol subcut TID 05/23/21 05/15/24 05/14/24 History (U-100) 100 unit/mL subcutaneous solution (Fiasp U-100 Insulin) pantoprazole 40 mg tablet,delayed 40 mg PO Q12H 05/23/21 05/15/24 05/14/24 History release pregabalin 50 mg capsule 50 mg PO Q8H 05/23/21 05/15/24 05/14/24 History zolpidem 10 mg tablet 10 mg PO HS 05/23/21 05/15/24 05/14/24 History acetaminophen 500 mg capsule 500 mg PO BID PRN Pain 03/28/23 05/15/24 05/14/24 History albuterol sulfate 90 mcg/actuation 1 puff inhalation Q4-6H PRN 03/28/23 05/15/24 05/15/24 History aerosol inhaler Shortness Of Breath Or Wheezing cetirizine 10 mg tablet 10 mg PO DAILY PRN allergies 01/18/24 05/15/24 05/14/24 History ferrous sulfate 325 mg (65 mg 325 mg PO DAILY 01/18/24 05/15/24 05/14/24 History iron) capsule,extended release hydroxyzine HCl 50 mg tablet 50 mg PO Q8H PRN Itching 01/18/24 05/01/24 03/23/24 20:00 History 50 mg magnesium oxide 400 mg (241.3 mg 400 mg PO DAILY 01/18/24 05/15/24 05/12/24 History magnesium) tablet mecobalamin (vitamin B12) 1,000 1,000 mcg PO DAILY 01/18/24 05/15/24 05/14/24 History mcg chewable tablet (B12 Active) nadolol 40 mg tablet 40 mg PO DAILY 01/18/24 05/15/24 05/15/24 History rivaroxaban 20 mg tablet (Xarelto) 20 mg PO DAILY 01/18/24 05/15/24 05/12/24 History aspirin 81 mg tablet,delayed 81 mg PO DAILY 05/15/24 05/30/24 05/15/24 History release tamsulosin 0.4 mg capsule 0.4 mg PO Q24H 05/30/24 05/30/24 Unknown History midodrine 5 mg tablet 5 mg PO TID 07/09/24 07/09/24 Unknown History Allergies Allergy/AdvReac Type Severity Reaction Status Date / Time Penicillins Allergy Unknown Unknown Verified 10/30/24 15:11 doxycycline Allergy Rash Verified 10/30/24 15:11 torsemide Allergy Rash Verified 10/30/24 15:11 codeine AdvReac Unknown NAUSEA Verified 10/30/24 15:11 Review of Systems Review of Systems: A 10 system review of systems was completed on the patient and is negative except for what is stated in the HPI. Nursing and ancillary documentation was reviewed. [facility] Past Medical History Medical History Cirrhosis, alcoholic Alcohol abuse, in remission Liver cirrhosis Chronic anticoagulation Bladder cancer Esophageal varices Continuous tobacco abuse COPD (chronic obstructive pulmonary disease) Diabetic peripheral neuropathy Chronic kidney disease TIA (transient ischemic attack) CVA (cerebral vascular accident) With residual right-sided weakness since around 2004 Aortic atherosclerosis Insulin dependent diabetes mellitus Chronic GERD HCC (hepatocellular carcinoma) (12/2022) GERD (gastroesophageal reflux disease) Surgical History Surgical History History of transurethral resection of prostate Port-A-Cath in place (04/02/23) Right subclavian placed by Dr. Aguilar Amputation of left great toe History of colonoscopy History of esophagogastroduodenoscopy Status post cataract extraction of both eyes with insertion of intraocular lens Family History Family History Mother Family history of respiratory disorder Pneumonia cause of Alcohol abuse Father Cerebrovascular accident Sibling Drug overdose at age 39 Sibling at age 43 from health issues related to [place] Social History Social History Social History: He lives with his of 32 years. He has 2 grown daughters. 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 He used to smoke 2 packs of cigarettes per day but has cut down to 1 pack of cigarettes per day for the last year so. He is recovering alcoholic he used to drink at least a 6 pack of beer a day or 1/2 of a 5th of liquor a day but he stopped when he was diagnosed with hepatocellular carcinoma December 2022. Code status: DNR/DNI per patient request but patient does not actually have advanced directives in writing. Surrogate decision maker: Smoking packs per day: 1 Smoking cigarettes per day: 20.0 Years smoked: 55 Smoking pack-years: 55.00 Smoking status: Former smoker Additional smoking assessment comments: TAPERING DOWN TO 1 PACK/DAY CURRENTLY Alcohol intake: former Alcohol use details: QUIT 01/2023, HEAVY DRINKER FOR 30-40 YEARS 6 pack per day or a half of a 5th of liquor a day Substance use: never Other substance usage details: distant history of cocaine/marijuana use Do You Feel Safe in your Home?: Yes Lack of Transportation: No Lack of Food: Never True Current Housing: I Have Housing Concerned About Future Housing: No Difficulty Paying Gas/Electric Bills: No Difficulty Paying for Meds: No Currently Unemployed: No Education: Trade/Vocational Certificate Difficulty w/ Childcare or Family Care: No Living arrangements: with family Additional living arrangements comments: Spiritual care concerns: No Exam Narrative: GENERAL: Well-appearing, well-nourished, and in no acute distress. HEAD: Normocephalic, atraumatic. EYES: PERRLA and EOMI. ENT: Nares clear, no rhinorrhea or epistaxis. Mucous membranes moist. NECK: Supple. CHEST: Scattered expiratory wheezes to auscultation. No respiratory distress. HEART: Tachycardic rate and rhythm. No murmur heard. Normal peripheral pulses. ABDOMEN: Soft, nontender, nondistended, normal active bowel sounds. EXTREMITIES: Normal range of motion. No edema. SKIN: Warm, dry, no rash. NEURO: No focal deficits. Alert and oriented x3. PSYCH: Normal mood and affect. Course Vital Signs Vital signs: Vital Signs Temperature 36.4 C L 10/30/24 15:06 Pulse Rate 120 H 10/30/24 15:06 Respiratory Rate 20 10/30/24 15:06 Blood Pressure 136/72 10/30/24 15:06 Pulse Oximetry 97 10/30/24 15:06 Oxygen Delivery Room Air 10/30/24 15:06 Temperature 36.4 C L 10/30/24 15:06 Pulse Rate 124 H 10/30/24 16:57 Respiratory Rate 22 H 10/30/24 16:55 Blood Pressure 142/75 H 10/30/24 16:55 Pulse Oximetry 92 10/30/24 16:55 Oxygen Delivery Room Air 10/30/24 15:06 Medical Decision Making MDM Narrative Medical decision making narrative: Differential diagnosis includes pneumonia, pulmonary embolism, Patient was tachycardic with heart rate in the 120s patient does have history of congestive heart failure patient was given a L of normal saline the patient had a slightly elevated lactate at 2.7 Blood cultures were obtained on the patient patient was given a L of normal saline bolus The patient was started on cefepime and vanc Case was discussed with the hospitalist Vital Signs Vital Signs: Vital Signs Temperature 36.4 C L 10/30/24 15:06 Pulse Rate 120 H 10/30/24 15:06 Respiratory Rate 20 10/30/24 15:06 Blood Pressure 136/72 10/30/24 15:06 Pulse Oximetry 97 10/30/24 15:06 Oxygen Delivery Room Air 10/30/24 15:06 Temperature 36.4 C L 10/30/24 15:06 Pulse Rate 124 H 10/30/24 16:57 Respiratory Rate 22 H 10/30/24 16:55 Blood Pressure 142/75 H 10/30/24 16:55 Pulse Oximetry 92 10/30/24 16:55 Oxygen Delivery Room Air 10/30/24 15:06 Lab Data 10/30/24 15:39 10/30/24 15:39 Labs: Lab Results 10/30/24 10/30/24 10/30/24 Range/Units 15:39 15:41 16:16 WBC 12.3 H (4.5-10.0) K/mm3 RBC 3.17 L (4.6-6.20) M/mm3 Hgb 9.9 L (14.0-18.0) g/dL Hct 29.7 L (42.0-52.0) % MCV 93.7 (80-100) fl MCH 31.2 (26-34) pg MCHC 33.3 (32-36) g/dl RDW 13.5 (11.5-14.5) % Plt Count 151 (150-375) k/mm3 MPV 9.1 (7.4-10.4) fl Immature Gran % (Auto) 0.7 H (0-0.5) % Neut % (Auto) 92.9 H (45.5-73.1) % Lymph % (Auto) 2.5 L (18.3-44.2) % Kemper % (Auto) 3.8 (2.6-8.5) % Eos % (Auto) 0.0 (0-4.4) % Baso % (Auto) 0.1 L (0.2-1.2) % Lymph # (Auto) 0.31 L (0.9-3.2) K/mm3 Kemper # (Auto) 0.5 (0.1-0.6) K/mm3 Eos # (Auto) 0.0 (0-0.3) K/mm3 Baso # (Auto) 0.0 (0.0-0.1) K/mm3 Abs Immat Gran (auto) 0.09 H (0.00-0.031) K/mm3 Absolute Neuts (auto) 11.4 H (1.3-6.7) K/mm3 Absolute Nucleated RBC 0.000 (0.0-0.012) K/mm3 Nucleated RBC % 0.0 (0.0-0.2) % PT 15.8 H (11.1-14.7) Seconds INR 1.3 APTT 29.7 (22.3-36.8) Seconds Sodium 133 L (137-145) mmol/L Potassium 5.0 (3.4-5.0) mmol/L Chloride 105 (98-107) mmol/L Carbon Dioxide 17 L (22-30) mmol/L Anion Gap 11 (4-12) mmol/L BUN 29 H (9-20) mg/dL Creatinine 1.48 H (0.7-1.3) mg/dL Estim Creat Clear Calc 45 ml/min Estimated GFR 47 L (59 - ) Glucose 303 H (65-110) mg/dL Lactic Acid 2.7 H (0.7-2.0) mmol/L Calcium 9.4 (8.4-10.2) mg/dL Magnesium 1.8 (1.6-2.3) mg/dL Total Bilirubin 0.6 (0.2-1.3) mg/dL AST 27 (17-59) U/L ALT 22 (6-50) U/L Alkaline Phosphatase 116 (38-126) U/L Troponin I 0.324 H* (0.000-0.034) ng/mL NT-Pro-B Natriuret Pep 52502 H (19.9-100) pg/mL Total Protein 7.4 (6.3-8.2) g/dL Albumin 4.0 (3.5-5.1) g/dL Lipase 93 (23-300) U/L Procalcitonin 0.1 ng/mL Urine Color Dark yellow (Yellow) Urine Appearance Clear (Clear) Urine pH 6.0 (5.0-9.0) Ur Specific Coats 1.025 (1.001-1.035) Urine Protein 2+ H (Negative) mg/dL Urine Glucose (UA) Negative (Negative) mg/dL Urine Ketones Negative (Negative) mg/dL Ur Blood (Man) Negative (Negative) Urine Nitrate Negative (Negative) Urine Bilirubin Negative (Negative) Urine Urobilinogen 0.2 (<2.0) mg/dL Leukocyte Esterase Rfl Negative (Negative) CAL/UL Urine RBC 0-2 (0-2) /hpf Urine WBC 6-10 H (0-3) /hpf Ur Squamous Epith Cells Rare (Few) /hpf Urine Bacteria 1+ H (None) /hpf Hyaline Casts 0-2 (None) /lpf Urine Mucus Few H /lpf Influenza A (RT-PCR) Negative (Negative) Influenza B (RT-PCR) Negative (Negative) RSV (RT-PCR) Negative (Negative) SARS-CoV-2 RNA (RT-PCR) Negative (Negative) ABG Data ABG results: 10/30/24 15:39 Puncture Site Left radial ABG pH 7.398 ABG pCO2 25.8 L ABG pO2 88.0 ABG PO2/FiO2 Ratio 4.19 ABG HCO3 15.6 L ABG O2 Saturation 96.9 ABG O2 Content 14.3 L ABG Base Excess -7.9 A-a Gradient 30.8 Oxyhemoglobin 94.1 Total Hemoglobin 10.7 L O2 Delivery Device Room air O2 Liters/Min 0.0 FiO2 21 Discharge Plan Discharge Clinical Impression: Pneumonia, Elevated troponin, Sepsis Patient Disposition: Still a Patient Condition: Stable Patient Language: Occitan Prescriptions: No Action tamsulosin 0.4 mg capsule 0.4 mg PO Q24H midodrine 5 mg tablet 5 mg PO TID Rx Instructions: do not give last dose of day after 6PM or within 4 hrs of bedtime pantoprazole 40 mg tablet,delayed release (DR/EC) 40 mg PO Q12H zolpidem 10 mg tablet 10 mg PO HS Patient Comments: . pregabalin 50 mg capsule 50 mg PO Q8H Fiasp U-100 Insulin 100 unit/mL solution See Protocol subcut TID Protocol: Insulin Corrective Moderate-Dose Condition: glucose < 70 mg/dl Dose/Route: Follow hypoglycemia orders Condition: glucose 70-200 mg/dl Dose/Route: No additional insulin Condition: glucose 201-250 mg/dl Dose/Route: 3 units sub-Q Condition: glucose 251-300 mg/dl Dose/Route: 4 units sub-Q Condition: glucose 301-350 mg/dl Dose/Route: 5 units sub-Q Condition: glucose 351-400 mg/dl Dose/Route: 6 units sub-Q Condition: glucose > 400 mg/dl Dose/Route: Call MD Protocol Text: *No Correction Dose at Bedtime* Rx Instructions: sliding scale acetaminophen 500 mg Capsule 500 mg PO BID PRN (Reason: Pain) Patient Comments: ..... albuterol sulfate 90 mcg/actuation HFA aerosol inhaler 1 puff INHALATION Q4-6H PRN (Reason: Shortness Of Breath Or Wheezing) Patient Comments: . cetirizine 10 mg tablet 10 mg PO DAILY PRN (Reason: allergies) Patient Comments: . hydroxyzine HCl 50 mg tablet 50 mg PO Q8H PRN (Reason: Itching) Patient Comments: Patient takes before bed every night magnesium oxide 400 mg (241.3 mg magnesium) tablet 400 mg PO DAILY nadolol 40 mg tablet 40 mg PO DAILY ferrous sulfate 325 mg (65 mg iron) Capsule, Extended Release 325 mg PO DAILY Xarelto 20 mg tablet 20 mg PO DAILY Patient Comments: DR MONTIEL TO INSTRUCT ON PREOP mecobalamin (vitamin B12) [B12 Active] 1,000 mcg Tablet,Chewable 1,000 mcg PO DAILY atorvastatin 40 mg Tablet 40 mg PO DAILY 30 Days Qty: 30 1RF Patient Comments: . clopidogrel 75 mg Tablet 75 mg PO QAM 30 Days Qty: 30 1RF Patient Comments: TIANA TO INSTRUCT PT PREOP nitroglycerin [Nitrostat] 0.4 mg tablet, sublingual 0.4 mg sublingual Q5M PRN (Reason: chest pain) Qty: 20 0RF Rx Instructions: do not exceed 3 doses per episode metoclopramide HCl [Reglan] 10 mg tablet 10 mg PO Q6H PRN (Reason: nausea and vomiting) Qty: 14 0RF Patient Comments: Only takes when he doesn't feel good. Patient does not remember the last time he took it insulin degludec [Tresiba U-100 Insulin] 100 unit/mL solution 30 unit SUBCUT HS Qty: 30 0RF furosemide [Lasix] 20 mg tablet 20 mg PO DAILY PRN (Reason: edema) Qty: 30 0RF Rx Instructions: Daily weights, if you gain more than 3lb within 1 day or 5 lbs in 1 week please take one tablet aspirin 81 mg tablet,delayed release (/EC) 81 mg PO DAILY Patient Comments: . hydrocodone-acetaminophen 5-325 mg tablet 1 - 2 tablet PO Q6H PRN (Reason: pain) Qty: 24 0RF hyoscyamine sulfate 0.125 mg tablet 0.125 mg PO Q6H PRN (Reason: bladder spasms) Qty: 20 2RF Follow-up/Referrals: Sandie,MD Shay [Primary Care Provider, Unknown] Time of Disposition: 18:07
--- NOTE | 2024-10-30 15:22 | PCRCNOTE ---
Arrived to give breathing treatment and draw ABG; was told by the R.N. that we had to wait to enter the room because the Pt.'s port was being accessed.
[2024-10-30] MEDS: IPRATROPIUM 0.5 MG/ALBUTEROL SULFATE 2.5 MG AMPUL.NEB 3 ML INHALATION ×2 (15:32→19:43)
[2024-10-30 15:47] LABS: HCO3 ABG 15.6 mEq/l (22.0-26.0); Oxygen Saturation ABG 96.9 % (95.0-100.0); PCO2 ABG 25.8 mmHg (35.0-45.0); PO2 ABG 88.0 mmHg (80.0-100.0)
[2024-10-30 15:48] LABS: Alveolar/Arterial O2 Gradient 30.8 mmHg; Hematocrit 29.7 % (42.0-52.0); Hemoglobin 9.9 g/dL (14.0-18.0); Immature Granulocyte Percent A 0.7 % (0-0.5); Lymphocytes Absolute Auto 0.31 K/mm3 (0.9-3.2); Mean Corpuscular HGB Conc 33.3 g/dl (32-36); Mean Corpuscular Hemoglobin 31.2 pg (26-34); Mean Corpuscular Volume 93.7 fl (80-100); Nucleated Red Blood Cells Absolute Auto 0.000 K/mm3 (0.0-0.012); Nucleated Red Blood Cells Perc 0.0 % (0.0-0.2); Oxygen Content ABG 14.3 %vol (16.0-22.0); PO2 FiO2 Ratio Arterial Blood 4.19 %; Platelet Count Result 151 k/mm3 (150-375); Red Blood Count 3.17 M/mm3 (4.6-6.20); White Blood Count 12.3 K/mm3 (4.5-10.0)
[2024-10-30 15:49] LABS: Fractional Inspired Oxygen 21 %; Liters per Minute 0.0 LPM; Modified Allen's Test Pass; Site Drawn LEFT RADIAL
[2024-10-30] MEDS: MORPHINE SULFATE (*CRX) 4 MG/ML INJ IV PUSH ×4 (15:51→22:25)
[2024-10-30 16:02] LABS: INR 1.3; Prothrombin Time 15.8 Seconds (11.1-14.7)
[2024-10-30 16:03] LABS: Partial Thromboplastin Time 29.7 Seconds (22.3-36.8)
[2024-10-30 16:06] LABS: Alanine Aminotransferase 22 U/L (6-50); Albumin Level 4.0 g/dL (3.5-5.1); Alkaline Phosphatase 116 U/L (38-126); Anion Gap 11 mmol/L (4-12); Aspartate Amino Transferase 27 U/L (17-59); Bilirubin,Total 0.6 mg/dL (0.2-1.3); Blood Urea Nitrogen 29 mg/dL (9-20); Calcium 9.4 mg/dL (8.4-10.2); Carbon Dioxide 17 mmol/L (22-30); Chloride 105 mmol/L (98-107); Estimated CRCL calculation 45 ml/min; Estimated Glomerular Filt Rate 47; Glucose 303 mg/dL (65-110); Lipase 93 U/L (23-300); Magnesium 1.8 mg/dL (1.6-2.3); Potassium 5.0 mmol/L (3.4-5.0); Sodium 133 mmol/L (137-145); Total Protein 7.4 g/dL (6.3-8.2)
--- OUTSIDE RECORDS SUMMARY | 2024-10-30 16:06 | XMS_ITS | Encounter Summary ---
Author Organization [facility] Health Address [address] [place] [address] Care Team Providers Care Clerk Funeral Detail Name Role Phone Shay Hooper MD Primary Care Provider Encounter Details Date Type Department Care Team (Late st Contact Info) Description 08/01/2018 [facility] Outpatient Visit [facility] [address] [place] [address] [place] [id number] [phone] Social History Tobacco Use Types Packs/Day Years Used Date Smoking Tobacco: Every Day Cigarettes Smokeless Tobacco: Never Alcohol Use Standard Drinks/Week Comments Yes 0 (1 standard drink = 0.6 oz pur e alcohol) RARE Sex and Gender Information Value Date Recorded Sex Assigned at Not on file Legal Sex Male 6:29 AM RED LEADER Gender Identity Not on file Sexual Orientation Not on file documented as of this encounter Plan of Treatment Upcoming Encounters Date Type Department Care Team (Late st Contact Info) Description 05/08/2025 11:00 AM CDT Office Visit [facility] [address] [facility] [place] [phone] Phyllis Pereira, RUMPER-ESTHETICIAN/SKIN THERAPIST [address] [facility] [address] [place] [address] documented as of this encounter Visit Diagnoses Not on filedocumented in this encounter Care Teams Clerk Funeral Detail Relationship Specialty Start Date End Date Shay Hooper MD [address] [place] [phone] PCP - General Internal Medicine 11/14/17 documented as of this encounter
--- OUTSIDE RECORDS SUMMARY | 2024-10-30 16:06 | XMS_ITS | Encounter Summary ---
Author Organization [facility] Health Address [address] [place] [address] Care Team Providers Care Zoology Teacher Name Role Phone Shay Hooper MD Primary Care Provider Encounter Details Date Type Department Care Team (Late Contact Info) Description 08/01/2018 [facility] Outpatient Visit [facility] [address] [place] [address] [place] [address] [address] Social History Tobacco Use Types Packs/Day Years Used Date Smoking Tobacco: Every Day Cigarettes Smokeless Tobacco: Never Alcohol Use Standard Drinks/Week Comments Yes 0 (1 standard drink = 0.6 oz pur e alcohol) RARE Sex and Gender Information Value Date Recorded Sex Assigned at Not on file Legal Sex Male 6:29 AM GERIATRIC PERSONAL CARE AIDE Gender Identity Not on file Sexual Orientation Not on file documented as of this encounter Plan of Treatment Upcoming Encounters Date Type Department Care Team (Late Contact Info) Description 05/08/2025 11:00 AM CDT Office Visit [facility] [address] [facility] [place] [phone] Phyllis Pereira, STERILISATION TECHNICIAN-CORPORATE TRAVEL EXPERT [address] [facility] [address] [place] [address] documented as of this encounter Visit Diagnoses Not on filedocumented in this encounter Care Teams Zoology Teacher Relationship Specialty Start Date End Date Shay Hooper MD [address] [phone] PCP - General Internal Medicine 11/14/17 documented as of this encounter
--- OUTSIDE RECORDS SUMMARY | 2024-10-30 16:06 | XMS_ITS | Clinical Summary ---
Author Organization [facility] Address [address] [place] [address] Care Team Providers Care Food And Beverage Checker Name Role Phone Shay Hooper MD Primary Care Provider Source Comments [facility],non-owned Affiliates and Associated Physician Practices is amultiple site organization consisting of ambulatory clinics and hospital sitesin [place], [place], [place] and [place]. This disclosure is being madepursuant to the Care Everywhere program and may not contain all information available regarding this patient. 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 [place] [place] [address] Health Maintenance Due Date Last Done Comments [...] the bathroom Medical Devices Implanted Type Area Sterile Instrument Technician Device Identifier Shelf Expiration Date Model / Serial / Lot Patch Tien Eptfe 1 X 9 X .5mm - [id number] Implanted:Qty: 1 on 08/07/2018 by Angelo Wu MD at [facility] Right: Carotid [employer] 05/30/2023 [id number] / [id number] / Procedures Procedure Name Priority Date/Time Associated Diagnosis Comments GLUCOSE - POINT OF CARE Routine 08/08/2018 7:16 AM CDT from Last 3 Months or Most Recently Relevant to Health Maintenance Results * (ABNORMAL) GLUCOSE - POINT OF CARE (08/08/2018 7:16 AM CDT) Glucose WB/POC 265(H) 70 - 106 mg/dL 08/08/2018 8:34 AM CDT [facility] Specimen Type Venous 08/08/2018 8:34 AM CDT [facility] Blood BLOOD SPECIMEN / Unknown 08/08/2018 7:16 AM CDT 08/08/2018 8:34 AM CDT Narrative [facility] - 08/08/2018 8:34 AM CDT (2) Provider Notified us Angelo Wu MD LAB - POINT OF CARE ORDERABL ES Final Result [facility] [address] [place] [address] from Last 3 Months or Most Recently Relevant to Health Maintenance Insurance [employer] MEDICARE ADV HMO & PPO Member Subscriber Plan / Payer (Ef fective 2022-Present) Name:Jack Treviño Relation to Subscriber:Self Name:Jack Treviño Payer ID:[id number] (NAIC) Type:Medicare-Managed Care Address: [place] [phone] [employer] SELF PAY NO INSURANCE Member Subscriber Plan / Payer (Ef fective for All Dates) Name:Jack Treviño Member ID:Not on file Relation to Subscriber:Not on file Name:JACK TREVIÑO Subscriber ID:Not on file (Home) Address: [address] [place] [address] Payer ID:Not on file Group ID:Not on file Type:Self Pay Address: [place], [place] [employer] MEDICARE ADV HMO & PPO [employer] MED[employer]ARE ADV HMO & PPO Advance Directives * Full Code (Latest Code Status on File) Date Activated Date Inactivated Comments 08/07/2018 5:20 PM 08/08/2018 1:06 PM Care Teams Food And Beverage Checker Relationship Specialty Start Date End Date Shay Hooper MD [address] [phone] PCP - General Internal Medicine 11/14/17
--- OUTSIDE RECORDS SUMMARY | 2024-10-30 16:06 | XMS_ITS | Clinical Summary ---
Author Organization [facility] Address [address] [place] [address] Care Team Providers Care Lockstitch Tunnel Elastic Operator Name Role Phone Krish Hooper MD Primary Care Provide r Jorge Jorge DO Unavailable [phone] Rene Harris MD Unavailable Emiliano Washington DO Unavailable [phone] Allergies Active Allergy Reactions Criticality Noted Date [...] Date Type Department Care Team Description 08/04/2024 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 Gender Identity Not on file Sexual Orientation [...] 02/06/2027 02/06/2017 Medical Devices Implanted Type Area Storm Door Maker Device Identifier Shelf Expiration Date Model / Serial / Lot Outsmart Synergy Xd Monorail 4mm 32mm 144cm Delivery System 1 Access Port [id number] - [id number] Implanted:Qty: 1 on 02/12/2024 by Rene Harris MD at [facility] 11/28/2024 [id number] / / [id number] Procedures Procedure Name Priority Date/Time Associated Diagnosis [...] DO LAB BLOOD ORDERABLES Alicia l Result [facility] [address] [address] [place] [address] [phone] * (ABNORMAL) Hemoglobin A1c (09/18/2017 6:16 AM CDT) Hgb A1C 7.2(H) 4.0 - 5.6 % [facility] Estimated Average Glucose 160 mg/dL [facility] Comment: The ADA recommends reporting an estimated Average Glucose (eAG) with all Hemoglobin A1c results using the equation derived from a study of 507 normal and diabetic adults. Minority populations were underrepresented and children were not included. (Diabetes Care 31:8342-5512, 2008). The eAG is not equivalent to a fasting glucose. Blood specimen (specimen) 09/18/2017 6:16 AM CDT 09/18/2017 7:44 AM CDT Narrative [facility] - 09/18/2017 8:10 AM CDT Aiden Parker MD LAB BLOOD ORDERABLES Final Result [facility] Department [place] [address] * (ABNORMAL) Lipid panel (09/18/2017 6:16 AM CDT) Pathologist [facility] Cholesterol 140 30 - 200 mg/dL [facility] Comment: Interpretive Data Desirable: <200 mg/dL Borderline high: 200-239 mg/dL High: > or = 240 mg/dL Literature Reference: National Cholesterol Education Program (NCEP) Expert Panel on Detection, Evaluation, and Treatment of High Blood Cholesterol in Adults (Adult Treatment Panel III). Circulation 2004; 110:227. Current interpretive data was last revised on 2014. Triglycerides 95 0 - 150 mg/dL [facility] Comment: Interpretive Data Desirable: < 150 mg/dL Borderline High: 150 - 199 mg/dL High: 200 - 499 mg/dL Very High: > or = 499 mg/dL Literature Reference: See Cholesterol Current interpretive data was last revised on 2014. HDL 32(L) >=40 mg/dL [facility] Comment: Interpretive Data Less than 40 mg/dL - low; A major risk factor for heart disease. Greater than or equal to 60 mg/dL - High; considered protective of heart disease. Literature Reference: See Cholesterol Current interpretive data was last revised on 2014. LDL, calculated 89 10 - 129 mg/dL [facility] Comment: Interpretive Data Optimal: < 100 mg/dL Near Optimal: 100 - 129 mg/dL Borderline High: 130 - 159 mg/dL High: 160 - 189 mg/dL Very high: > or = 190 mg/dL Literature Reference: See Cholesterol Current interpretive data was last revised on 2014. Non-HDL Cholesterol 108 mg/dL [facility] Comment: Interpretive Data When triglycerides are >200 mg/dL, non-HDL C is a secondary target of therapy, with a goal 30 mg/dL higher than the identified LDL-C goal. Reference: See Cholesterol Reference. Current interpretive data was last revised 2014. Blood specimen (specimen) 09/18/2017 6:16 AM CDT 09/18/2017 7:42 AM CDT Narrative [facility] - 09/18/2017 6:[address] AIDEN PARKER 09/18/2017 17:13:25 CDT Aiden Parker MD LAB BLOOD ORDERABLES Final Result [facility] Department [place] [address] from Last 3 Months or Most Recently Relevant to Health Maintenance Insurance [facility] MEDICARE HMO HUMANA MEDICARE HMO Advance Directives For more information, please contact: [phone] * Full Code (Latest Code Status on File) Date Activated Date Inactivated Comments 07/26/2024 1:39 AM 07/28/2024 4:56 PM * Full Code Date Activated Date Inactivated Comments 02/12/2024 3:20 PM 02/13/2024 2:36 PM * Full Code Date Activated Date Inactivated Comments 09/18/2017 5:47 AM 09/19/2017 5:05 PM Care Teams Lockstitch Tunnel Elastic Operator Relationship Specialty Start Date End Date Krish Hooper MD [address] [place] [address] PCP - General Internal Medicine 10/12/18 Jorge Jorge DO [address] [place] [address] Medical Oncologist/Casing Flusher Hematology and Oncology 12/11/18 Rene Harris MD [address] [place] [address] Consulting Physician Cardiology 02/13/24 Emiliano Washington DO [address] [address] Consulting Physician Nephrology 07/28/24
--- OUTSIDE RECORDS SUMMARY | 2024-10-30 16:06 | XMS_ITS | Encounter Summary ---
Author Organization [facility] Address [address] [facility] [place] [address] Care Team Providers Care Powder Hand Name Role Phone Shay Hooper MD Primary Care Provider Encounter Details Date Type Department Care Team (Late st Contact Info) Description 10/23/2018 Lab Requisition 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 Gender Identity Not on file Sexual Orientation [...] Description 05/08/2025 11:00 AM CDT Office Visit [facility] [place] [address] [facility], [place] [id number] Phyllis Pereira, DYE HOUSE HAND-AUTOMOTIVE POWER ELECTRONICS ENGINEER [address] [facility] [place] [address] documented as of this encounter Procedures Procedure Name Priority Date/Time Associated Diagnosis Comments PATHOLOGY TISSUE Routine 10/22/2018 3:19 PM CDT Illness documented in this encounter Results * PATHOLOGY TISSUE (10/22/2018 3:19 PM CDT) Case Report Surgical Pathology Report Case: [id number] Authorizing Provider: Luna Hernandez MD Collected: 10/22/2018 03:19 PM Ordering Location: [facility] Pathology Lab Received: 10/23/2018 03:19 PM Pathologist: Floyd Rodriguez MD Specimen: Slide Consultation, [id number] 10/24/2018 10:17 AM CDT [facility] [...] LAB Gross Description Prepared slides received from [facility] labeled [id number]. All material will be returned. 10/24/2018 10:17 AM T [facility] PATHOLOGY LAB Disclaimer The performance characteristics of all immunohistochemical and indirect immunofluorescence stains (if any) cited in this report were determined by the Histopathology Laboratory of [facility]. Some of these tests were developed [...] attending (teaching) pathologist. 10/24/2018 10:17 AM T [facility] PATHOLOGY LAB Embedded Images 10/24/2018 10:17 AM T [facility] PATHOLOGY LAB Pathology/Cytolo gy SURGICAL PATHOLOGY CONSULTATION AND REPORT ON REFERRED SLIDES PREPARED ELSEWHERE / Unknown 10/22/2018 3:19 PM CDT 10/23/2018 3:19 PM CDT us Luna Hernandez MD LAB - PATHOLOGY/CYTOLOGY ORDERAB LES Final Result Performing Organization Address City/State/[facility] Co de Phone Number [facility] PATHOLOGY LAB [address] [phone] documented in this encounter Visit Diagnoses Diagnosis Illness Other unknown and unspecified cause of morbidity or mortality documented in this encounter Care Teams Powder Hand Relationship Specialty Start Date End Date Shay Hooper MD [address] [phone] PCP - General Internal Medicine 11/14/17 documented as of this encounter
--- OUTSIDE RECORDS SUMMARY | 2024-10-30 16:07 | XMS_ITS | Encounter Summary ---
Author Organization [facility] [employer] [facility] Address [address] [place] [address] Care Team Providers Care Cage Clerk Name Role Phone Shay Hooper MD Primary Care Provider Encounter Details Date Type Department Care Team (Late Contact Info) Description 10/27/2024 Orders Only [facility] Oncology and Hematology [facility] [address] [place] [address] Tommy Cassidy MD [address] [place] [phone] Hepatocarcinoma (CMS/HCC) Social History Tobacco Use [...] Description 11/14/2024 9:30 AM CDT Office Visit [facility] Oncology and Hematology - [place] [address] [place] [address] Tommy Cassidy MD [address] [place] [phone] documented as of this encounter Visit Diagnoses Diagnosis Hepatocarcinoma (CMS/HCC) Malignant neoplasm of liver, primary documented in this encounter Care Teams Cage Clerk Relationship Specialty Start Date End Date Shay Hooper MD PCP - General Internal Medicine 01/01/23 documented as of this encounter
--- OUTSIDE RECORDS SUMMARY | 2024-10-30 16:07 | XMS_ITS | Clinical Summary ---
Author Organization [facility] Address [address] [place] [address] Phone Care Team Providers Care Cut Off Saw Operator Pipe Blanks Name Role Phone Provider, Not On File [...] and at bedtime. Active ergocalciferol (VITAMIN D) 20809 UNIT Capsule Take 50,000 Units by mouth. [...] this topic Medical Devices Implanted Type Area Finishing Range Supervisor Device Identifier Shelf Expiration Date Model / Serial / Lot Implant Nasal 16mm Steroid Release Zip Tie Propel Mometasone Furoate 370 Mcg Mini 4mm - [id number] Implanted:Qty: 1 on 10/03/2022 by Lalito Acuña MD at [facility] IMPLANT Left: Sinus Intersect [employer] Inc 09/28/2023 [id number] / [id number] / [id number] Implant Nasal 16mm Steroid Release Zip Tie Propel Mometasone Furoate 370 Mcg Mini 4mm - [id number] Implanted:Qty: 1 on 10/03/2022 by Lalito Acuña MD at [facility] IMPLANT Right: Sinus Intersect Ent Inc 11/09/2023 [id number] / [id number] / [id number] Explanted Type Area Finishing Range Supervisor Device Identifier Shelf Expiration Date Model / Serial / Lot Implant Nasal 16mm Steroid Release Zip Tie Propel Mometasone Furoate 370 Mcg Mini 4mm - [id number] Explanted:Qty: 1 on 10/03/2022 at [facility] IMPLANT Right: Sinus Intersect Ent Inc 09/28/2023 [id number] / [id number] / [id number] Insurance MEDICARE C HUMANA Care Teams Cut Off Saw Operator Pipe Blanks Relationship Specialty Start Date End Date Provider, Not On File [place] PCP - General 10/03/22
--- OUTSIDE RECORDS SUMMARY | 2024-10-30 16:07 | XMS_ITS | Encounter Summary ---
Author Organization [facility] Address [address] [place] [address] Care Team Providers Care Kiln Feeder Name Role Phone Krish Hooper MD Primary Care Provide r Jorge Jorge DO Unavailable [phone] Rene Harris MD Unavailable Emiliano Washington DO Unavailable [phone] Encounter Details Date Type Department Care Team (Late st Contact Info) Description 08/04/2024 [facility] Post Discharge Follow up phone call [place] [id number] [place] [address] Cyn Ferris Social History Tobacco [...] on file Legal Sex Male 7:05 PM THREAD SEPARATOR Gender Identity Not on file Sexual Orientation Not on file documented as of this encounter Plan of Treatment Not on file documented as of this encounter Visit Diagnoses Not on filedocumented in this encounter Care Teams Kiln Feeder Relationship Specialty Start Date End Date Krish Hooper MD [address] [facility] [address] [place] [address] PCP - General Internal Medicine 12/07/17 Jorge Jorge DO [address] [place] [address] Medical Oncologist/Kinesiology Internship Hematology and Oncology 12/11/18 Rene Harris MD [address] [place] [address] Consulting Physician Cardiology 02/13/24 Emiliano Washington DO [address] [facility] 1 [place] [address] Consulting Physician Nephrology 07/28/24 documented as of this encounter
--- OUTSIDE RECORDS SUMMARY | 2024-10-30 16:07 | XMS_ITS | Clinical Summary ---
Author Organization [facility] Address [address] [address] Care Team Providers Care Certified Master Safecracker Name Role Phone Shay Hooper MD Primary Care Provider [phone] Allergies Active Allergy Reactions Criticality Noted Date Comments Codeine 05/10/2021 Penicillins 05/10/2021 Medications ergocalciferol 1.25 MG (69029 UT) capsule Take 1 capsule (50,000 Units [...] Description 10/14/2024 2:15 PM CDT Office Visit [facility] [address] [facility] [address] [place] [address] Emiliano Washington DO Stage 3b chronic kidney disease (HCC) (Primary Dx); Alcoholic fibrosis and sclerosis of liver; Esophageal varices associated with another disorder (HCC); Stroke, not otherwise specified (HCC); Peripheral vascular disease (HCC); Hypertensive chronic kidney disease; Type 2 diabetes mellitus with diabetic chronic kidney disease (HCC); Pure hypercholesterolemia, not otherwise specified; Tobacco use; Ischemic cardiomyopathy; Coronary atherosclerosis of unspecified type of vessel, tanacross or graft; Aortic valve stenosis 10/14/2024 Refill [facility], [facility] [address] [phone] Cally Kruger, HEATING AND AIR CONDITIONING MECHANIC 10/03/2024 Documentation Only [facility], [address] [address] Emiliano Washington, DO 10/03/2024 Documentation Only [facility], [address] [address] Emiliano Washington, DO 10/02/2024 Documentation Only [facility], [address] [address] Emiliano Washington, DO 10/02/2024 Documentation Only [facility], [address] [address] Emiliano Washington, DO 10/02/2024 Documentation Only [facility], [address] [address] Emiliano Washington, DO 09/12/2024 Refill [facility], [facility] [address] [address] Emiliano Washington, DO 08/19/2024 12:00 PM CDT Office Visit [facility], [facility] [address] [address] Emiliano Washington DO Stage 3b chronic kidney disease (HCC) (Primary Dx); Alcoholic fibrosis and sclerosis of liver; Esophageal varices associated with another disorder (HCC); Stroke, not otherwise specified (HCC); Peripheral vascular disease (HCC); Hypertensive chronic kidney disease; Type 2 diabetes mellitus with diabetic chronic kidney disease (HCC); Pure hypercholesterolemia, not otherwise specified; Tobacco use; Ischemic cardiomyopathy; Coronary atherosclerosis of unspecified type of vessel, tanacross or graft; Aortic valve stenosis 08/11/2024 Documentation Only [address] [address] Emiliano Washington DO 07/31/2024 Office Communication [address] [address] Adrianne Corbin 07/31/2024 Documentation Only [address] [address] Adrianne Corbin from Last 3 [...] st Contact Info) Description 03/17/2025 1:15 PM HEALTH SCIENCES DEAN Office Visit [facility] [address] [facility] [address] [place] [address] Emiliano Washington DO [address] [facility] [address] [facility] [address] Health Maintenance Due Date Last Done [...] Documents on File Type Date Recorded Patient Social Media Campaign Manager Expl anation Advance Care Planning 05/11/2021 11:05 AM Care Teams Certified Master Safecracker Relationship Specialty Start Date End Date Shay Hooper MD [address] [facility], [address] [place] [address] PCP - General Internal Medicine 03/01/21
--- OUTSIDE RECORDS SUMMARY | 2024-10-30 16:07 | XMS_ITS | Encounter Summary ---
Author Organization [facility] [employer] [facility] Address [address] [place] [address] Care Team Providers Care Machine Learning Intern Name Role Phone Shay Hooper MD Primary Care Provider Encounter Details Date Type Department Care Team (Late st Contact Info) Description 10/30/2024 Orders Only [facility] Oncology and Hematology - [place] [address] [place] [address] Tommy Cassidy MD [address] [place] [phone] Social History Tobacco Use Types Packs/Day [...] Description 11/14/2024 9:30 AM CDT Office Visit [facility] [place] [facility] Oncology and Hematology - [place] [address] [place] [address] Tommy Cassidy MD [address] [place] [address] documented as of this encounter Procedures Procedure Name Priority Date/Time Associated Diagnosis Comments COMPREHENSIVE METABOLIC PANEL Routine 10/30/2024 11:48 AM CDT documented in this encounter Results * COMPREHENSIVE METABOLIC PANEL (10/30/2024 11:48 AM CDT) Blood Tommy Cassidy MD CHEMISTRY ORDERABLES Final Resu lt documented in this encounter Visit Diagnoses Not on filedocumented in this encounter Care Teams Machine Learning Intern Relationship Specialty Start Date End Date Shay Hooper MD PCP - General Internal Medicine 01/01/23 documented as of this encounter
--- OUTSIDE RECORDS SUMMARY | 2024-10-30 16:07 | XMS_ITS | Clinical Summary ---
Author Organization [facility] Rika Molina Address [address] [place] [address] Care Team Providers Care Explosive Operator Fuse Name Role Phone Shay Hooper MD Primary [...] Department Care Team Description 10/30/2024 Orders Only [facility] Oncology and Hematology - [place] [address] Tommy Cassidy MD 10/28/2024 Orders Only [facility] Oncology and Hematology - [place] [address] [place] [id number] Tommy Cassidy MD 10/27/2024 Orders Only [facility] Oncology and Hematology - [place] [address] [place] [id number] Tommy Cassidy MD Hepatocarcinoma ([facility]/HCC) 10/23/2024 Refill [facility] Oncology and Hematology - [place] [address] [place] [id number] Tommy Cassidy MD 10/23/2024 Orders Only [facility] Oncology and Hematology - [place] [address] [place] [id number] Tommy Cassidy MD 10/13/2024 Orders Only [facility] Oncology and Hematology - [place] [address] [place] [address] Tommy Cassidy MD Hepatocarcinoma ([facility]/HCC) 10/09/2024 Telephone [facility] Oncology and Hematology - [place] [address] [place] [id number] Tommy Cassidy MD Jury Duty letter 10/08/2024 Orders Only [facility] Oncology and Hematology - [place] [address] Tommy Cassidy MD 09/29/2024 Orders Only [facility] Oncology and Hematology - [place] [address] [place] [id number] Tommy Cassidy MD Hepatocarcinoma (CMS/HCC) 09/23/2024 Orders Only [facility] Oncology and Hematology - [place] [address] [place] [id number] Tommy Cassidy MD 09/22/2024 Orders Only [facility] Oncology and Hematology - [place] [address] Tommy Cassidy MD Benign hypertension 09/19/2024 Orders Only [facility] Oncology and Hematology - [place] [address] [place] [id number] Tommy Cassidy MD 09/18/2024 Orders Only [facility] Oncology and Hematology - [place] [address] [place] [id number] Tommy Cassidy MD 09/16/2024 9:45 AM CDT Office Visit [facility] Oncology and Hematology - [place] [address] [place] [id number] Tommy Cassidy MD Hepatocarcinoma (CMS/HCC) (Primary Dx) 09/15/2024 Orders Only [facility] Oncology and Hematology - [place] [address] [place] [id number] Tommy Cassidy MD Hepatocarcinoma (CMS/HCC) 09/12/2024 Orders Only [facility] Oncology and Hematology - [place] [address] [place] [address] Tommy Cassidy MD 09/08/2024 Refill [facility] Oncology and Hematology - [place] [address] Tommy Cassidy MD 09/08/2024 Orders Only [facility] Oncology and Hematology - [place] [address] [place] [id number] Tommy Cassidy MD Benign hypertension 09/01/2024 Orders Only [facility] On[facility] and Hematology - [place] [address] [place] [phone] Tommy Cassidy MD Hepatocarcinoma (CMS/HCC) 08/27/2024 Orders Only [facility] Oncology and Hematology - [place] [address] [place] [id number] Tommy Cassidy MD 08/25/2024 Orders Only [facility] On[facility] and Hematology - [place] [address] Tommy Cassidy MD Benign hypertension 08/22/2024 Orders Only [facility]ematology - [place] [address] Tommy Cassidy MD 08/21/2024 Orders Only [facility]ematology - [place] [address] Tommy Cassidy MD 08/19/2024 Orders Only [facility] On[facility] and Hematology - [place] [address] [place] [phone] Tommy Cassidy MD 08/18/2024 Orders Only [facility] Oncology and Hematology - [place] [address] [place] [phone] Tommy Cassidy MD Hepatocarcinoma ([facility]/HCC) 08/11/2024 Orders Only [facility] On[facility] and Hematology - [place] [address] [place] [phone] Tommy Cassidy MD Benign hypertension 08/06/2024 Orders Only [facility] On[facility] and Hematology - [place] [address] [place] [address] Tommy Cassidy MD 08/05/2024 9:45 AM CDT Office Visit [facility] Oncology and Hematology - [place] [address] [place] [address] Tommy Cassidy MD Hepatocarcinoma (CMS/HCC) (Primary Dx) 08/05/2024 Orders Only [facility] Oncology and Hematology - [place] [address] [place] [address] Tommy Cassidy MD 08/04/2024 Orders Only [facility] Oncology and Hematology - [place] [address] [place] [address] Tommy Cassidy MD Hepatocarcinoma (CMS/HCC) 08/01/2024 Orders Only [facility] Oncology and Hematology - [place] [address] [place] [address] Tommy Cassidy MD 07/31/2024 Orders Only [facility] Oncology and Hematology - [place] [address] [place] [id number] Tommy Cassidy MD from Last 3 Months [...] 180.3 cm (5' 11) 04/09/2023 8:51 AM HAT FORMER Body Mass Index 23.38 04/09/2023 8:51 AM HAT FORMER Plan of Treatment Upcoming Encounters Date Type Department Care Team (Late st Contact Info) Description 11/14/2024 9:30 AM CDT Office Visit [facility] Oncology and Hematology - [place] [address] [facility] [address] [place] [address] Tommy Cassidy MD [address] [facility] [address] [place] [address] Health Maintenance Due Date Last [...] Q 6 MONTHS 03/21/2018 09/18/2017 [place] Prev entative Visit/Annual Wellness Visit 02/27/2024 11/15/2023, 09/19/2022 INFLUENZA VACCINE (#1) 2024 DTAP/TDAP/TD VACCINES (2 - Td or Tdap) 02/06/2027 Abdominal Aortic Aneurysm (AAA) Screening Completed 07/29/2024 Medical Devices Implanted Type Area Lawnmower Repair Mechanic Device Identifier Shelf Expiration Date Model / [...] Most Recently Relevant to Health Maintenance Insurance [facility] Address: [address] [address] [place], [place] [address] MCR Advance Directives For more information, please contact: [phone] * Full Code (Latest Code Status on File) Date Activated Date Inactivated Comments 04/04/2023 11:13 AM 04/04/2023 6:32 PM Care Teams Explosive Operator Fuse Relationship Specialty Start Date End Date Shay Hooper MD PCP - General Internal Medicine 01/01/23
--- OUTSIDE RECORDS SUMMARY | 2024-10-30 16:07 | XMS_ITS | Encounter Summary ---
Author Organization [facility] [employer] [facility] Address [address] [place] [address] Care Team Providers Care Turbine Operator Name Role Phone Shay Hooper MD Primary Care Provider Encounter Details Date Type Department Care Team (Late st Contact Info) Description 10/28/2024 Orders Only [facility] Oncology and Hematology - [place] [address] [place] [address] Tommy Cassidy MD [address] [place] [address] Social History Tobacco Use Types Packs/Day [...] Description 11/14/2024 9:30 AM CDT Office Visit [facility] Oncology and Hematology - [place] [address] [place] [address] Tommy Cassidy MD [address] [place] [address] documented as of this encounter [...] on filedocumented in this encounter Care Teams Turbine Operator Relationship Specialty Start Date End Date Shay Hooper MD PCP - General Internal Medicine 01/01/23 documented as of this encounter
[2024-10-30 16:21] LABS: NT Pro B Type Natriuretic Pept 13700 pg/mL (19.9-100); Troponin I 0.324 ng/mL (0.000-0.034)
[2024-10-30 16:26] LABS: Influenza A QL RT-PCR Negative (Negative); Influenza B QL RT-PCR Negative (Negative); RSV RNA, RT-PCR Negative (Negative); SARS-CoV-2 RNA PCR Negative (Negative)
[2024-10-30 16:45] LABS: Add Urine Microscopic? YES; Appearance Urine Clear (Clear); Glucose Urine UA Negative (Negative); Specific Grav Ur 1.025 (1.001-1.035)
[2024-10-30 16:46] LABS: Leukocyte Esterase Ur Negative LEU/UL (Negative); Nitrate Urine Negative (Negative)
[2024-10-30 17:11] LABS: Procalcitonin 0.1 ng/mL
[2024-10-30] MEDS: SODIUM CHLORIDE 0.9% IV 1,000 ML 999 ML IV CONT (18:43)
[2024-10-30] MEDS: AZITHROMYCIN 250 MG/NS 250 ML 250 MG/250 ML BAG IVPB (19:12)
[2024-10-30 19:23] LABS: Troponin I 0.800 ng/mL (0.000-0.034)
[2024-10-30 19:59] LABS: MRSA (PCR) NOT DETECTED (NOT DETECTE)
--- NOTE | 2024-10-30 20:07 | ADMGEN ---
This patient, Daniel Treviño, was admitted to IMU Room 213-01via bed with one tech and nio issues. Patient/family oriented to hospital policies and general routines including ID bracelet, bed and alarms, visiting hours, pain management, procedures, bathroom and other care routines, personal items, smoking policy, room service/diet, and visiting hours. Information on how to activate the Rapid Response Team has been discussed. Patient/Family are encouraged to report perceived risks to care and to ask questions if they do not understand what they are told or what they should do.
[2024-10-30 20:12] LABS: Procalcitonin 0.1 ng/mL
[2024-10-30] MEDS: VANCOMYCIN 1,750 MG/NS 500 ML 1,750 MG/500 ML BAG 250 MG IVPB (20:41)
[2024-10-30] MEDS: guaiFENesin 12 HR 600 MG TABCR PO (20:43)
--- NOTE | 2024-10-30 21:01 | PM.IMHP ---
H&P: HPI History of Present Illness Date/Time: 10/30/24 21:01 Chief Complaint: Shortness of Breath, Chest Pain Narrative: 69 y/o M with PMH of alcohol abuse (in remission), cirrhosis, bladder cancer, esophageal varices, COPD, CKD, CVA with residual right-sided weakness, diabetes, GERD, hepatocellular carcinoma presents here with chest pain and shortness of breath. The patient presents here from home on 10/30 for further evaluation of shortness of breath and chest pain. He reports onset around 1 week ago but significantly worsened in the last 24 hours and after his immunotherapy treatment today. Recently treated for an upper respiratory infection with a course of antibiotics and steroids last week and this week. He reports no improvement with treatment. Patient initially has a history of hepatocellular carcinoma, currently on immunotherapy. He did take a sublingual nitro at home which had no effect. He denies nausea, vomiting, fever, chills, abdominal pain, diarrhea, palpitations. HE is reporting lightheadedness/dizziness when he has a coughing spell and cannot catch his breath. He described the chest pain as pounding, nonradiating, constant, and no modifying factors. He reports the morphine will help slightly and helps his respirations but the pain immediately comes back. Abnormal imaging noted during the patient's initial assessment showed possible hemorrhage around his spleen. The patient denies any recent trauma, falls, or significant pressure applied to his abdomen. Initial VS at presentation: 97.5? F, HR 120, R 20, 136/72, and 97% on RA. ED workup showed: WBC 12.3, hemoglobin 9.9 (10.1 on 10/28), INR 1.3, no significant derangements on ABG, sodium 133, creatinine 1.48 and GFR 47, glucose her 3, lactic 2.7, initial troponin 0.324, BNP 43382, and procalcitonin 0.1, UA showed 2+ protein, 6-10 WBC, 1+ bacteria and rare epithelial cells. MRSA and viral PCR negative. CXR showed subtle by a lateral interstitial infiltrates suspicious for mild edema or pneumonia. Chest CTA showed interstitial changes bilaterally with subtle patchy ground-glass opacities of the lower lobes, subscapular fluid surrounding the spleen suspicious for hemorrhage with no laceration identified. 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 Aguilar Amputation of left great toe History of colonoscopy History of esophagogastroduodenoscopy Status post cataract extraction of both eyes with insertion of intraocular lens Family History Family History Mother Family history of respiratory disorder Pneumonia cause of Alcohol abuse Father Cerebrovascular accident Sibling Drug overdose at age 39 Sibling at age 43 from health issues related to [place] Social History Social History Social History: He lives with his of 32 years. He has 2 grown daughters. 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 He used to smoke 2 packs of cigarettes per day but has cut down to 1 pack of cigarettes per day for the last year so. He is recovering alcoholic he used to drink at least a 6 pack of beer a day or 1/2 of a 5th of liquor a day but he stopped when he was diagnosed with hepatocellular carcinoma December 2022. Code status: DNR/DNI per patient request but patient does not actually have advanced directives in writing. Surrogate decision maker: Smoking packs per day: 1 Smoking cigarettes per day: 20.0 Years smoked: 55 Smoking pack-years: 55.00 Smoking status: Current every day smoker Tobacco type: cigarettes Additional smoking assessment comments: TAPERING DOWN TO 1 PACK/DAY CURRENTLY Alcohol intake: former Drinks per week: 10 Alcohol use details: QUIT 01/2023, HEAVY DRINKER FOR 30-40 YEARS 6 pack per day or a half of a 5th of liquor a day Substance use: never Other substance usage details: distant history of cocaine/marijuana use Do You Feel Safe in your Home?: Yes Lack of Transportation: No Lack of Food: Never True Current Housing: I Have Housing Concerned About Future Housing: No Difficulty Paying Gas/Electric Bills: No Difficulty Paying for Meds: No Currently Unemployed: No Education: Trade/Vocational Certificate Difficulty w/ Childcare or Family Care: No Living arrangements: with family Additional living arrangements comments: Spiritual care concerns: No Meds Home Medications and Allergies Home Medications ?Medication ?Instructions ?Recorded ?Confirmed ?Type insulin aspart (niacinamide) See Protocol subcut TID 05/23/21 10/30/24 History (U-100) 100 unit/mL subcutaneous solution (Fiasp U-100 Insulin) pantoprazole 40 mg tablet,delayed 40 mg PO Q12H 05/23/21 10/30/24 History release pregabalin 50 mg capsule 50 mg PO Q8H 05/23/21 10/30/24 History zolpidem 10 mg tablet 10 mg PO HS 05/23/21 10/30/24 History acetaminophen 500 mg capsule 500 mg PO BID PRN Pain 03/28/23 10/30/24 History albuterol sulfate 90 mcg/actuation 1 puff inhalation Q4-6H PRN 03/28/23 10/30/24 History aerosol inhaler Shortness Of Breath Or Wheezing metoclopramide HCl 10 mg tablet 10 mg PO Q6H PRN nausea and 07/24/23 10/30/24 Rx (Reglan) vomiting #14 tabs cetirizine 10 mg tablet 10 mg PO DAILY PRN allergies 01/18/24 10/30/24 History ferrous sulfate 325 mg (65 mg 325 mg PO DAILY 01/18/24 10/30/24 History iron) capsule,extended release hydroxyzine HCl 50 mg tablet 50 mg PO Q8H PRN Itching 01/18/24 10/30/24 History magnesium oxide 400 mg (241.3 mg 400 mg PO DAILY 01/18/24 10/30/24 History magnesium) tablet mecobalamin (vitamin B12) 1,000 1,000 mcg PO DAILY 01/18/24 10/30/24 History mcg chewable tablet (B12 Active) atorvastatin 40 mg tablet 40 mg PO DAILY 30 days #30 tabs 01/22/24 10/30/24 Rx clopidogrel 75 mg tablet 75 mg PO QAM 30 days #30 tabs 01/22/24 10/30/24 Rx nitroglycerin 0.4 mg sublingual 0.4 mg sublingual Q5M PRN chest 01/22/24 10/30/24 Rx tablet (Nitrostat) pain #20 tabs furosemide 20 mg tablet (Lasix) 20 mg PO DAILY PRN edema #30 tabs 03/28/24 10/30/24 Rx hydrocodone 5 mg-acetaminophen 325 1 - 2 tablet PO Q6H PRN pain #24 05/16/24 10/30/24 Rx mg tablet tabs midodrine 5 mg tablet 5 mg PO TID 07/09/24 10/30/24 History blood sugar diagnostic (Accu-Chek 10/30/24 10/30/24 History Guide test strips) desmopressin 0.1 mg tablet 0.2 mg PO HS 10/30/24 10/30/24 History fluticasone propionate 50 1 spray intranasal Q12H PRN 10/30/24 10/30/24 History mcg/actuation nasal allergy symptoms spray,suspension insulin degludec 100 unit/mL 20 unit subcut HS 10/30/24 10/30/24 History subcutaneous solution (Tresiba U-100 Insulin) lidocaine-prilocaine 2.5 %-2.5 % 1 applic topical DAILY PRN port 10/30/24 10/30/24 History topical cream access megestrol 400 mg/10 mL (40 mg/mL) 400 mg PO DAILY 10/30/24 10/30/24 History oral suspension Allergies Allergy/AdvReac Type Severity Reaction Status Date / Time Penicillins Allergy Unknown Unknown Verified 10/30/24 15:11 doxycycline Allergy Rash Verified 10/30/24 15:11 torsemide Allergy Rash Verified 10/30/24 15:11 codeine AdvReac Unknown NAUSEA Verified 10/30/24 15:11 Vital Signs Vital Signs - 24 hr 10/30/24 15:06 10/30/24 15:52 10/30/24 15:59 Temperature 97.5 F L Pulse Rate 120 H 114 H 113 H Respiratory Rate 20 22 H 20 Blood Pressure 136/72 Pulse Oximetry 97 Oxygen Delivery Room Air 10/30/24 16:55 10/30/24 16:57 10/30/24 19:44 Temperature Pulse Rate 126 H 124 H 118 H Respiratory Rate 22 H 20 Blood Pressure 142/75 H Pulse Oximetry 92 Oxygen Delivery 10/30/24 19:50 10/30/24 20:19 Temperature 97.7 F Pulse Rate 120 H 116 H Respiratory Rate 20 21 H Blood Pressure 135/66 Pulse Oximetry 92 Oxygen Delivery Exam Const: General: comfortable and no acute distress Other: , male, nontoxic appearance HENMT: Face/Nose/Sinus: Normal nares present Mouth: Yes moist mucous membranes Eyes: General: appearance normal, both eyes and all related structures Sclera: sclerae normal Pupils: Equal, round and reactive pupils present EOM: EOMs intact bilaterally Resp: Effort & Inspection: normal respiratory effort Auscultation: clear to auscultation bilaterally Other: No wheezing or crackles appreciated. Cardio: Rate: regular rate Rhythm: regular rhythm Other: S1-S2 present without murmur, rub, ectopy GI: Other: Abdomen soft, nondistended, nontender. Normoactive bowel sounds in all quadrants. No splenomegaly or hepatomegaly present. No ecchymosis. Skin: General skin exam: normal color and no rashes or lesions noted Wounds: no wounds Neuro: Speech: normal speech Motor exam (neuro): 5/5 motor strength present throughout Sensory Exam: normal sensation Other: A&O x4 Extrem: General: normal to inspection Psych: Mental Status: mental status grossly normal Affect: normal affect Other: Good insight and judgment, pleasant H&P: Results Labs Labs: Short CBC 10/30/24 Range/Units 15:39 WBC 12.3 H (4.5-10.0) K/mm3 Hgb 9.9 L (14.0-18.0) g/dL Hct 29.7 L (42.0-52.0) % Plt Count 151 (150-375) k/mm3 BMP 10/30/24 15:39 Sodium 133 L Potassium 5.0 Chloride 105 Carbon Dioxide 17 L BUN 29 H Creatinine 1.48 H Glucose 303 H Calcium 9.4 Cardiac Enzymes 10/30/24 10/30/24 Range/Units 15:39 18:44 Troponin I 0.324 H* 0.800 H* D (0.000-0.034) ng/mL Liver Function 10/30/24 Range/Units 15:39 Total Bilirubin 0.6 (0.2-1.3) mg/dL AST 27 (17-59) U/L ALT 22 (6-50) U/L Alkaline Phosphatase 116 (38-126) U/L Albumin 4.0 (3.5-5.1) g/dL Urine 10/30/24 Range/Units 16:16 Urine Color Dark yellow (Yellow) Urine Appearance Clear (Clear) Urine pH 6.0 (5.0-9.0) Ur Specific [place] 1.025 (1.001-1.035) Urine Protein 2+ H (Negative) mg/dL Urine Glucose (UA) Negative (Negative) mg/dL Assessment and Plan Assessment and plan (1) Sepsis: Qualifiers: Sepsis acute organ dysfunction status: without acute organ dysfunction Sepsis type: sepsis due to unspecified organism Qualified Code(s): A41.9 - Sepsis, unspecified organism Code(s): A41.9 - Sepsis, unspecified organism Status: Acute Assessment and Plan: - meets SIRS criteria: HR >90, RR > 20. - lactic acid: 2.7 -> 2.2 - lactic elevated, procalcitonin added -> 0.1 - 30 mL/kg = 2.2L, given 1L bolus only due to CHF hx. second L at 100 mL/hr - suspected source: Pneumonia - started on vancomycin, azithromycin and cefepime - blood cultures drawn on 10/30, follow - UA showed 6-10 WBC and 1+ bacteria, however had rare epithelial cells. Follow culture. - monitor hemodynamic stability (2) Pneumonia: Qualifiers: Laterality: bilateral Lung location: unspecified part of lung Pneumonia type: due to unspecified organism Qualified Code(s): J18.9 - Pneumonia, unspecified organism Code(s): J18.9 - Pneumonia, unspecified organism Status: Acute Assessment and Plan: - CXR: Subtle bilateral interstitial infiltrates, suspicious for mild edema or pneumonia. - Chest CTA: 1. Interstitial changes bilaterally with subtle patchy groundglass opacities of the lower lobes. Differential diagnosis includes atypical or viral pneumonia, early interstitial lung disease and pulmonary edema. 2: Subcapsular fluid surrounding the spleen, suspicious for hemorrhage. No laceration identified. - started on vancomycin, cefepime, and azithromycin due to patient's current immunocompromised state - MRSA PCR negative on 10/30, will continue vanc for 24 hours and defer discontinuation based off clinical condition - Viral PCR negative on 10/30 - check sputum culture - supportive care: Mucinex scheduled, Tessalon Perles p.r.n., DuoNebs p.r.n., Tylenol p.r.n. (3) Acute on chronic heart failure with preserved ejection fraction: Code(s): I50.33 - Acute on chronic diastolic (congestive) heart failure Status: Acute Assessment and Plan: - BNP 87737 - most recent echo (12/2023): Systolic function mildly reduced with than EF of 51%, diastolic dysfunction grade 1, mild pulmonary hypertension, valvular disease - on Lasix 20 mg daily p.r.n. for edema at home, will start Lasix 40 mg IV daily. Continue desmopressin - monitor I&Os and daily weights - trend renal function (4) Abnormal CT of the abdomen: Code(s): R93.5 - Abnormal findings on diagnostic imaging of other abdominal regions, including retroperitoneum Status: Acute Assessment and Plan: - CTA showed subcapsular fluid surrounding the spleen suspicious for hemorrhage with no laceration identified - patient denies any recent trauma or falls - general surgery consulted, ED provider spoke with on-call general surgeon who is in favor of fluid that is reactive to patient's current pneumonia - monitor CBC and abdominal exam (5) HCC (hepatocellular carcinoma): Onset Date: 12/2022 Code(s): C22.0 - Liver cell carcinoma Status: Chronic Assessment and Plan: - history of hepatocellular carcinoma currently on immunotherapy with last treatment of immunotherapy on 10/30 - oncologist: Khanh PATHAK (6) Anemia: Qualifiers: Anemia type: unspecified type Qualified Code(s): D64.9 - Anemia, unspecified Code(s): D64.9 - Anemia, unspecified Status: Chronic Assessment and Plan: - Hgb 9.9 upon admission, previously 10.1 on 10/28 - transfuse if <7 - monitor (7) Insulin dependent diabetes mellitus: Status: Chronic Assessment and Plan: - hypoglycemia protocol - POC blood glucose ACHS - home medication: Hold U 100 protocol. Continue Tresiba. - correct regimen ordered - low dose TIDWM and HS based off BMI - A1C 5.9% on 05/16/2024 Plan Diet: Heart healthy GI Prophylaxis: N/a DVT Prophylaxis: Xarelto IV fluids:1 L bolus -> 100 mL/hr x1L Lines/Tubes: Peripheral IV Code Status: Full code Quality VTE Prophylaxis VTE prophylaxis: pharmacologic ordered Hospitalist MIPS Advance Care Plan I have confirmed that the patient's Advanced Care Plan is present, code status is documented, or surrogate decision maker is listed in patient medical record.: Yes Medication Reconciliation I have utilized all available resources to obtain, update and review the patients current medications (includes all prescriptions, OTC, herbals, cannabis, and nutritional supplements).: Yes
[2024-10-30] MEDS: LACTATED RINGERS 1,000 ML 100 ML IV CONT (22:02)
[2024-10-30] MEDS: CENTRAL LINE FLUSH 10 ML IV PUSH (22:03)
[2024-10-30] MEDS: FUROSEMIDE INJ 40 MG/4 ML VIAL IV PUSH (22:06)
[2024-10-30] MEDS: CEFEPIME 2 GM in SODIUM CHLORIDE 0.9% IV 50 ML 100 ML IVPB (22:20)
[2024-10-31] VITALS (23 sets, daily range): BP systolic 105–123; BP diastolic 43–63; PULSE 88–137; RESP 16–20; TEMP 36.7–37.1; O2SAT 95–100; BMI 23.0
[2024-10-31] MEDS: INSULIN GLARGINE (*BKC) 100 UNITS/ML 20 UNITS SUB-Q ×2 (00:21→21:30)
[2024-10-31] MEDS: INSULIN ASPART (*BKC) 100 UNITS/ML SUB-Q ×4 (00:23→21:27)
[2024-10-31] MEDS: IPRATROPIUM 0.5 MG/ALBUTEROL SULFATE 2.5 MG AMPUL.NEB 3 ML INHALATION ×4 (02:50→20:45)
[2024-10-31 04:10] LABS: Hematocrit 25.9 % (42.0-52.0); Hemoglobin 8.7 g/dL (14.0-18.0); Immature Granulocyte Percent A 0.7 % (0-0.5); Lymphocytes Absolute Auto 0.58 K/mm3 (0.9-3.2); Mean Corpuscular HGB Conc 33.6 g/dl (32-36); Mean Corpuscular Hemoglobin 31.8 pg (26-34); Mean Corpuscular Volume 94.5 fl (80-100); Nucleated Red Blood Cells Absolute Auto 0.000 K/mm3 (0.0-0.012); Nucleated Red Blood Cells Perc 0.0 % (0.0-0.2); Platelet Count Result 136 k/mm3 (150-375); Red Blood Count 2.74 M/mm3 (4.6-6.20); White Blood Count 10.2 K/mm3 (4.5-10.0)
[2024-10-31 04:22] LABS: Alanine Aminotransferase 16 U/L (6-50); Albumin Level 3.2 g/dL (3.5-5.1); Alkaline Phosphatase 92 U/L (38-126); Anion Gap 6 mmol/L (4-12); Aspartate Amino Transferase 35 U/L (17-59); Bilirubin,Total 0.6 mg/dL (0.2-1.3); Blood Urea Nitrogen 27 mg/dL (9-20); Calcium 8.7 mg/dL (8.4-10.2); Carbon Dioxide 21 mmol/L (22-30); Chloride 108 mmol/L (98-107); Estimated CRCL calculation 51 ml/min; Estimated Glomerular Filt Rate 54; Glucose 191 mg/dL (65-110); Magnesium 1.7 mg/dL (1.6-2.3); Potassium 4.7 mmol/L (3.4-5.0); Sodium 135 mmol/L (137-145); Total Protein 6.1 g/dL (6.3-8.2)
[2024-10-31] MEDS: CENTRAL LINE FLUSH 10 ML IV PUSH ×3 (05:05→21:21)
[2024-10-31] MEDS: PREGABALIN (*CRX) 50 MG CAPSULE PO ×3 (05:05→21:03)
--- NOTE | 2024-10-31 05:30 | PM.EVENT ---
Event Note Event Note Event Note: Sodium level is slightly low. He has a history of CVA which could be the cause of it and he has been on diuretics. Pharmacy called to verify if we wanted to continue the desmopressin and Lasix. We can continue those 2 for now but continue to monitor his sodium levels.
[2024-10-31] MEDS: guaiFENesin 12 HR 600 MG TABCR PO ×2 (08:39→21:06)
[2024-10-31] MEDS: MIDODRINE HCL 2.5 MG TABLET 5 MG PO (08:39)
[2024-10-31] MEDS: MAGNESIUM OXIDE 400 MG TABLET PO (08:39)
[2024-10-31] MEDS: ATORVASTATIN 40 MG TABLET PO (08:39)
[2024-10-31] MEDS: FERROUS SULFATE 325 MG TABLET BY MOUTH (08:39)
[2024-10-31] MEDS: CYANOCOBALAMIN 1,000 MCG TABLET 1000 MCG PO (08:39)
[2024-10-31] MEDS: CLOPIDOGREL BISULFATE 75 MG TABLET PO (08:40)
[2024-10-31] MEDS: FUROSEMIDE INJ 40 MG/4 ML VIAL IV PUSH (08:40)
[2024-10-31] MEDS: MEGESTROL ACETATE (*CHEMO) ORAL SUSP 40 MG/ML UD 400 MG PO (08:41)
[2024-10-31] MEDS: CEFEPIME 2 GM in SODIUM CHLORIDE 0.9% IV 50 ML 100 ML IVPB ×2 (08:41→21:08)
[2024-10-31] MEDS: PANTOPRAZOLE 40 MG TABLET PO ×2 (08:41→21:04)
--- NOTE | 2024-10-31 10:33 | PM.CNGS ---
Assessment and Plan Assessment and plan (1) Abnormal CT of the abdomen: Code(s): R93.5 - Abnormal findings on diagnostic imaging of other abdominal regions, including retroperitoneum Status: Acute Assessment and Plan: Patient presented to the ED yesterday with shortness of breath and chest pain that been going on for several weeks. He states that this increased in severity yesterday, prompting him to present to the ED. Upon admission a CT of the chest was obtained and demonstrated a fluid collection surrounding the spleen, suspicious for hemorrhage. Patient does not complain of any abdominal pain. Denies any recent trauma to the area. WBC currently 10.2. Hemoglobin 8.7, but this seems to be around his baseline. No surgical intervention or drainage of fluid collection necessary at this time. Patient appears to be stable with no active bleeding. General surgery will sign off at this time. Call with any questions or concerns. (2) Pneumonia: Qualifiers: Laterality: bilateral Lung location: unspecified part of lung Pneumonia type: due to unspecified organism Qualified Code(s): J18.9 - Pneumonia, unspecified organism Code(s): J18.9 - Pneumonia, unspecified organism Status: Acute (3) Elevated troponin: Code(s): R79.89 - Other specified abnormal findings of blood chemistry Status: Acute Plan Discussed patient's case and plan of care with Dr. Aguilar. History of Present Illness Consult details Consult date: 10/31/24 Reason for consult: other (Fluid collection around the spleen possible hematoma) Requesting physician: Daniel Rosa MD Narrative: Patient is a 69-year-old male with past medical history of alcohol abuse (in remission), cirrhosis, bladder cancer, esophageal varices, COPD, CKD, CVA with residual right sided weakness, diabetes., GERD, and hepatocellular carcinoma (on immunotherapy) who we have been asked to see in surgical consultation for a fluid collection around the spleen, possible hematoma. Patient presented to the ED yesterday with complaints of chest pain and shortness of breath. He states that he had been having congestion, cough, and other URI symptoms for a while and was treated with Zithromax and methylprednisolone. However, yesterday after his immunotherapy for his liver cancer he began having increased shortness of breath and chest pain which prompted him to present to the ED. He took a sublingual nitro at home which had no effect. Initial workup demonstrated tachycaria, mild leukocytosis, and mild anemia. INR of 1.3. Lactic acid 2.2. Elevated tropinins. Chest x-ray demonstrated subtle bilateral interstitial infiltrates, suspicious for mild edema or pneumonia. Chest CTA that revealed interstitial changes bilaterally with subtle patchy ground-glass opacities of the lower lobes. Also demonstrated was subcapsular fluid surrounding the spleen, suspicious for hemorrhage. This prompted consult to General surgery team. Patient denies any trauma to the area. No abdominal pain. He only endorses chest pain and shortness of breath. He states that the morphine has been helping, but the pain is not 100% resolved. Upon chart review, CT from 10/23 demonstrated a prominent spleen with multiple collateral vessels. No mention of fluid collection. [facility] Past Medical History Medical History (Updated 10/30/24 @ 21:28 by Melba Johnson APRN) Cirrhosis, alcoholic Alcohol abuse, in remission Liver cirrhosis Chronic anticoagulation Bladder cancer Esophageal varices Continuous tobacco abuse COPD (chronic obstructive pulmonary disease) Diabetic peripheral neuropathy Chronic kidney disease TIA (transient ischemic attack) CVA (cerebral vascular accident) With residual right-sided weakness since around 2004 Aortic atherosclerosis Insulin dependent diabetes mellitus Chronic GERD HCC (hepatocellular carcinoma) (12/2022) GERD (gastroesophageal reflux disease) Surgical History Surgical History History of transurethral resection of prostate Port-A-Cath in place (04/02/23) Right subclavian placed by Dr. Aguilar Amputation of left great toe History of colonoscopy History of esophagogastroduodenoscopy Status post cataract extraction of both eyes with insertion of intraocular lens Family History Family History Mother Family history of respiratory disorder Pneumonia cause of Alcohol abuse Father Cerebrovascular accident Sibling Drug overdose at age 39 Sibling at age 43 from health issues related to [place] Social History Social History Social History: He lives with his of 32 years. He has 2 grown daughters. 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 He used to smoke 2 packs of cigarettes per day but has cut down to 1 pack of cigarettes per day for the last year so. He is recovering alcoholic he used to drink at least a 6 pack of beer a day or 1/2 of a 5th of liquor a day but he stopped when he was diagnosed with hepatocellular carcinoma December 2022. Code status: DNR/DNI per patient request but patient does not actually have advanced directives in writing. Surrogate decision maker: Smoking packs per day: 1 Smoking cigarettes per day: 20.0 Years smoked: 55 Smoking pack-years: 55.00 Smoking status: Current every day smoker Tobacco type: cigarettes Additional smoking assessment comments: TAPERING DOWN TO 1 PACK/DAY CURRENTLY Alcohol intake: former Drinks per week: 10 Alcohol use details: QUIT 01/2023, HEAVY DRINKER FOR 30-40 YEARS 6 pack per day or a half of a 5th of liquor a day Substance use: never Other substance usage details: distant history of cocaine/marijuana use Do You Feel Safe in your Home?: Yes Lack of Transportation: No Lack of Food: Never True Current Housing: I Have Housing Concerned About Future Housing: No Difficulty Paying Gas/Electric Bills: No Difficulty Paying for Meds: No Currently Unemployed: No Education: Trade/Vocational Certificate Difficulty w/ Childcare or Family Care: No Living arrangements: with family Additional living arrangements comments: Spiritual care concerns: No Meds Home Medications and Allergies Home Medications ?Medication ?Instructions ?Recorded ?Confirmed ?Type insulin aspart (niacinamide) See Protocol subcut TID 05/23/21 10/30/24 History (U-100) 100 unit/mL subcutaneous solution (Fiasp U-100 Insulin) pantoprazole 40 mg tablet,delayed 40 mg PO Q12H 05/23/21 10/30/24 History release pregabalin 50 mg capsule 50 mg PO Q8H 05/23/21 10/30/24 History zolpidem 10 mg tablet 10 mg PO HS 05/23/21 10/30/24 History acetaminophen 500 mg capsule 500 mg PO BID PRN Pain 03/28/23 10/30/24 History albuterol sulfate 90 mcg/actuation 1 puff inhalation Q4-6H PRN 03/28/23 10/30/24 History aerosol inhaler Shortness Of Breath Or Wheezing metoclopramide HCl 10 mg tablet 10 mg PO Q6H PRN nausea and 07/24/23 10/30/24 Rx (Reglan) vomiting #14 tabs cetirizine 10 mg tablet 10 mg PO DAILY PRN allergies 01/18/24 10/30/24 History ferrous sulfate 325 mg (65 mg 325 mg PO DAILY 01/18/24 10/30/24 History iron) capsule,extended release hydroxyzine HCl 50 mg tablet 50 mg PO Q8H PRN Itching 01/18/24 10/30/24 History magnesium oxide 400 mg (241.3 mg 400 mg PO DAILY 01/18/24 10/30/24 History magnesium) tablet mecobalamin (vitamin B12) 1,000 1,000 mcg PO DAILY 01/18/24 10/30/24 History mcg chewable tablet (B12 Active) atorvastatin 40 mg tablet 40 mg PO DAILY 30 days #30 tabs 01/22/24 10/30/24 Rx clopidogrel 75 mg tablet 75 mg PO QAM 30 days #30 tabs 01/22/24 10/30/24 Rx nitroglycerin 0.4 mg sublingual 0.4 mg sublingual Q5M PRN chest 01/22/24 10/30/24 Rx tablet (Nitrostat) pain #20 tabs furosemide 20 mg tablet (Lasix) 20 mg PO DAILY PRN edema #30 tabs 03/28/24 10/30/24 Rx hydrocodone 5 mg-acetaminophen 325 1 - 2 tablet PO Q6H PRN pain #24 05/16/24 10/30/24 Rx mg tablet tabs midodrine 5 mg tablet 5 mg PO TID 07/09/24 10/30/24 History blood sugar diagnostic (Accu-Chek 10/30/24 10/30/24 History Guide test strips) desmopressin 0.1 mg tablet 0.2 mg PO HS 10/30/24 10/30/24 History fluticasone propionate 50 1 spray intranasal Q12H PRN 10/30/24 10/30/24 History mcg/actuation nasal allergy symptoms spray,suspension insulin degludec 100 unit/mL 20 unit subcut HS 10/30/24 10/30/24 History subcutaneous solution (Tresiba U-100 Insulin) lidocaine-prilocaine 2.5 %-2.5 % 1 applic topical DAILY PRN port 10/30/24 10/30/24 History topical cream access megestrol 400 mg/10 mL (40 mg/mL) 400 mg PO DAILY 10/30/24 10/30/24 History oral suspension Allergies Allergy/AdvReac Type Severity Reaction Status Date / Time Penicillins Allergy Unknown Unknown Verified 10/30/24 15:11 doxycycline Allergy Rash Verified 10/30/24 15:11 torsemide Allergy Rash Verified 10/30/24 15:11 codeine AdvReac Unknown NAUSEA Verified 10/30/24 15:11 Vital Signs Vital Signs - 24 hr 10/30/24 15:06 10/30/24 15:52 10/30/24 15:59 Temperature 97.5 F L Pulse Rate 120 H 114 H 113 H Respiratory Rate 20 22 H 20 Blood Pressure 136/72 Pulse Oximetry 97 Oxygen Delivery Room Air 10/30/24 16:55 10/30/24 16:57 10/30/24 19:44 Temperature Pulse Rate 126 H 124 H 118 H Respiratory Rate 22 H 20 Blood Pressure 142/75 H Pulse Oximetry 92 Oxygen Delivery 10/30/24 19:50 10/30/24 20:15 10/30/24 20:19 Temperature 97.7 F Pulse Rate 120 H 125 H 116 H Respiratory Rate 20 21 H Blood Pressure 135/66 Pulse Oximetry 92 Oxygen Delivery 10/30/24 22:00 10/30/24 23:33 10/31/24 00:00 Temperature 97.8 F Pulse Rate 107 H 114 H 114 H Respiratory Rate 20 Blood Pressure 123/61 Pulse Oximetry 93 Oxygen Delivery 10/31/24 02:00 10/31/24 02:50 10/31/24 02:58 Temperature Pulse Rate 110 H 97 102 H Respiratory Rate 18 18 Blood Pressure Pulse Oximetry Oxygen Delivery 10/31/24 04:00 10/31/24 04:45 10/31/24 06:00 Temperature 98.8 F Pulse Rate 97 96 95 Respiratory Rate 20 Blood Pressure 123/63 Pulse Oximetry 95 Oxygen Delivery 10/31/24 08:00 10/31/24 08:30 Temperature 98.2 F Pulse Rate 89 88 Respiratory Rate 16 18 Blood Pressure 105/51 L Pulse Oximetry 98 Oxygen Delivery Exam Const: General: comfortable and no acute distress Eyes: General: appearance normal, both eyes and all related structures Neck: Neck: supple Resp: Effort & Inspection: normal respiratory effort Cardio: Rate: regular rate GI: Inspection: non-distended GI Palp: Yes Soft to palpation, No Tenderness to palpation present (GI) and No Guarding due to palpation present (GI) : General: Yes bladder normal to palpation Skin: General skin exam: normal color and no rashes or lesions noted Neuro: Speech: normal speech Sensory Exam: normal sensation Extrem: General: normal to inspection Psych: Mental Status: mental status grossly normal Results Labs 10/31/24 03:57 10/31/24 03:57 Labs: Abnormal lab results 10/30/24 10/30/24 10/30/24 Range/Units 15:39 16:16 18:44 WBC 12.3 H (4.5-10.0) K/mm3 RBC 3.17 L (4.6-6.20) M/mm3 Hgb 9.9 L (14.0-18.0) g/dL Hct 29.7 L (42.0-52.0) % Plt Count (150-375) k/mm3 Immature Gran % (Auto) 0.7 H (0-0.5) % Neut % (Auto) 92.9 H (45.5-73.1) % Lymph % (Auto) 2.5 L (18.3-44.2) % Baso % (Auto) 0.1 L (0.2-1.2) % Lymph # (Auto) 0.31 L (0.9-3.2) K/mm3 Abs Immat Gran (auto) 0.09 H (0.00-0.031) K/mm3 Absolute Neuts (auto) 11.4 H (1.3-6.7) K/mm3 PT 15.8 H (11.1-14.7) Seconds ABG pCO2 25.8 L (35.0-45.0) mmHg ABG HCO3 15.6 L (22.0-26.0) mEq/l ABG O2 Content 14.3 L (16.0-22.0) %vol Total Hemoglobin 10.7 L (12.0-18.0) g/dL Sodium 133 L (137-145) mmol/L Chloride (98-107) mmol/L Carbon Dioxide 17 L (22-30) mmol/L BUN 29 H (9-20) mg/dL Creatinine 1.48 H (0.7-1.3) mg/dL Estimated GFR 47 L (59 - ) Glucose 303 H (65-110) mg/dL POC Capillary Glucose (65-105) mg/dl Lactic Acid 2.7 H 2.2 H (0.7-2.0) mmol/L Troponin I 0.324 H* 0.800 H* D (0.000-0.034) ng/mL NT-Pro-B Natriuret Pep 61723 H (19.9-100) pg/mL Total Protein (6.3-8.2) g/dL Albumin (3.5-5.1) g/dL Urine Protein 2+ H (Negative) mg/dL Urine WBC 6-10 H (0-3) /hpf Urine Bacteria 1+ H (None) /hpf Urine Mucus Few H /lpf 10/30/24 10/31/24 10/31/24 Range/Units 20:26 00:19 03:57 WBC 10.2 H (4.5-10.0) K/mm3 RBC 2.74 L (4.6-6.20) M/mm3 Hgb 8.7 L (14.0-18.0) g/dL Hct 25.9 L (42.0-52.0) % Plt Count 136 L (150-375) k/mm3 Immature Gran % (Auto) 0.7 H (0-0.5) % Neut % (Auto) 87.8 H (45.5-73.1) % Lymph % (Auto) 5.7 L (18.3-44.2) % Baso % (Auto) (0.2-1.2) % Lymph # (Auto) 0.58 L (0.9-3.2) K/mm3 Abs Immat Gran (auto) 0.07 H (0.00-0.031) K/mm3 Absolute Neuts (auto) 9.0 H (1.3-6.7) K/mm3 PT (11.1-14.7) Seconds ABG pCO2 (35.0-45.0) mmHg ABG HCO3 (22.0-26.0) mEq/l ABG O2 Content (16.0-22.0) %vol Total Hemoglobin (12.0-18.0) g/dL Sodium 135 L (137-145) mmol/L Chloride 108 H (98-107) mmol/L Carbon Dioxide 21 L (22-30) mmol/L BUN 27 H (9-20) mg/dL Creatinine 1.31 H (0.7-1.3) mg/dL Estimated GFR 54 L (59 - ) Glucose 191 H (65-110) mg/dL POC Capillary Glucose 230 H 235 H (65-105) mg/dl Lactic Acid (0.7-2.0) mmol/L Troponin I (0.000-0.034) ng/mL NT-Pro-B Natriuret Pep (19.9-100) pg/mL Total Protein 6.1 L (6.3-8.2) g/dL Albumin 3.2 L (3.5-5.1) g/dL Urine Protein (Negative) mg/dL Urine WBC (0-3) /hpf Urine Bacteria (None) /hpf Urine Mucus /lpf 10/31/24 Range/Units 07:23 WBC (4.5-10.0) K/mm3 RBC (4.6-6.20) M/mm3 Hgb (14.0-18.0) g/dL Hct (42.0-52.0) % Plt Count (150-375) k/mm3 Immature Gran % (Auto) (0-0.5) % Neut % (Auto) (45.5-73.1) % Lymph % (Auto) (18.3-44.2) % Baso % (Auto) (0.2-1.2) % Lymph # (Auto) (0.9-3.2) K/mm3 Abs Immat Gran (auto) (0.00-0.031) K/mm3 Absolute Neuts (auto) (1.3-6.7) K/mm3 PT (11.1-14.7) Seconds ABG pCO2 (35.0-45.0) mmHg ABG HCO3 (22.0-26.0) mEq/l ABG O2 Content (16.0-22.0) %vol Total Hemoglobin (12.0-18.0) g/dL Sodium (137-145) mmol/L Chloride (98-107) mmol/L Carbon Dioxide (22-30) mmol/L BUN (9-20) mg/dL Creatinine (0.7-1.3) mg/dL Estimated GFR (59 - ) Glucose (65-110) mg/dL POC Capillary Glucose 168 H (65-105) mg/dl Lactic Acid (0.7-2.0) mmol/L Troponin I (0.000-0.034) ng/mL NT-Pro-B Natriuret Pep (19.9-100) pg/mL Total Protein (6.3-8.2) g/dL Albumin (3.5-5.1) g/dL Urine Protein (Negative) mg/dL Urine WBC (0-3) /hpf Urine Bacteria (None) /hpf Urine Mucus /lpf Diabetes panel 10/30/24 10/31/24 Range/Units 15:39 03:57 Sodium 133 L 135 L (137-145) mmol/L Potassium 5.0 4.7 (3.4-5.0) mmol/L Chloride 105 108 H (98-107) mmol/L Carbon Dioxide 17 L 21 L (22-30) mmol/L BUN 29 H 27 H (9-20) mg/dL Creatinine 1.48 H 1.31 H (0.7-1.3) mg/dL Glucose 303 H 191 H (65-110) mg/dL Calcium 9.4 8.7 (8.4-10.2) mg/dL AST 27 35 (17-59) U/L ALT 22 16 (6-50) U/L Alkaline Phosphatase 116 92 (38-126) U/L Total Protein 7.4 6.1 L (6.3-8.2) g/dL Albumin 4.0 3.2 L (3.5-5.1) g/dL Calcium panel 10/30/24 10/31/24 Range/Units 15:39 03:57 Calcium 9.4 8.7 (8.4-10.2) mg/dL Albumin 4.0 3.2 L (3.5-5.1) g/dL Pituitary panel 10/30/24 10/31/24 Range/Units 15:39 03:57 Sodium 133 L 135 L (137-145) mmol/L Potassium 5.0 4.7 (3.4-5.0) mmol/L Chloride 105 108 H (98-107) mmol/L Carbon Dioxide 17 L 21 L (22-30) mmol/L BUN 29 H 27 H (9-20) mg/dL Creatinine 1.48 H 1.31 H (0.7-1.3) mg/dL Glucose 303 H 191 H (65-110) mg/dL Calcium 9.4 8.7 (8.4-10.2) mg/dL Adrenal panel 10/30/24 10/31/24 Range/Units 15:39 03:57 Sodium 133 L 135 L (137-145) mmol/L Potassium 5.0 4.7 (3.4-5.0) mmol/L Chloride 105 108 H (98-107) mmol/L Carbon Dioxide 17 L 21 L (22-30) mmol/L BUN 29 H 27 H (9-20) mg/dL Creatinine 1.48 H 1.31 H (0.7-1.3) mg/dL Glucose 303 H 191 H (65-110) mg/dL Calcium 9.4 8.7 (8.4-10.2) mg/dL Total Bilirubin 0.6 0.6 (0.2-1.3) mg/dL AST 27 35 (17-59) U/L ALT 22 16 (6-50) U/L Alkaline Phosphatase 116 92 (38-126) U/L Total Protein 7.4 6.1 L (6.3-8.2) g/dL Albumin 4.0 3.2 L (3.5-5.1) g/dL All other labs normal.
--- NOTE | 2024-10-31 14:39 | P.PNIM_ITS ---
Progress Note: A&P Assessment and Plan (1) Sepsis: Qualifiers: Sepsis acute organ dysfunction status: without acute organ dysfunction Sepsis type: sepsis due to unspecified organism Qualified Code(s): A41.9 - S epsis, unspecified organism Code(s): A41.9 - Sepsis, unspecified organism Status: Acute Assessment and Plan: Vital signs stable and within normal limits CTA chest showed pneumonia Continue CEfepime and Azithromycin f/u cultures, MRSA negative, vanc discontinued monitor (2) Pneumonia: Qualifiers: Laterality: bilateral Lung location: unspecified part of lung Pneumonia type: due to unspecified organism Qualified Code(s): J18.9 - Pneumonia, unspecified organism Code(s): J18.9 - Pneumonia, unspecified organism Status: Acute Assessment and Plan: Continue above care plan (3) Acute on chronic heart failure with preserved ejection fraction: Code(s): I50.33 - Acute on chronic diastolic (congestive) heart failure Status: Acute Assessment and Plan: No edema on CT chest Hold hoem tanna for now (4) Abnormal CT of the abdomen: Code(s): R93.5 - Abnormal findings on diagnostic imaging of other abdominal regions, including retroperitoneum Status: Acute Assessment and Plan: - CTA showed subcapsular fluid surrounding the spleen suspicious for hemorrhage with no laceration identified - patient denies any recent trauma or falls - general surgery consulted, ED provider spoke with on-call general surgeon who is in favor of fluid that is reactive to patient's current pneumonia - monitor CBC and abdominal exam (5) HCC (hepatocellular carcinoma): Onset Date: 12/2022 Code(s): C22.0 - Liver cell carcinoma Status: Chronic Assessment and Plan: - history of hepatocellular carcinoma currently on immunotherapy with last treatment of immunotherapy on 10/30 - oncologist: Khanh PATHAK (6) Anemia: Qualifiers: Anemia type: unspecified type Qualified Code(s): D64.9 - Anemia, unspecified Code(s): D64.9 - Anemia, unspecified Status: Chronic Assessment and Plan: - Hgb 9.9 upon admission, previously 10.1 on 10/28 - transfuse if <7 - monitor (7) Insulin dependent diabetes mellitus: Status: Chronic Assessment and Plan: SSI with accucheks, adjust with clinical course Plan Diet: Heart healthy DVT Prophylaxis: Sq heparin Code Status: Full code Subjective Date/time seen: 10/31/24 14:39 Interval history: Comfortable at bedside Review of Systems Review of Systems: All systems reviewed & are unremarkable except as noted in HPI and below Exam Const: General: comfortable and no acute distress Other: , male, nontoxic appearance HENMT: Face/Nose/Sinus: Normal nares present Mouth: Yes moist mucous membranes Eyes: General: appearance normal, both eyes and all related structures Sclera: sclerae normal Pupils: Equal, round and reactive pupils present EOM: EOMs intact bilaterally Resp: Effort & Inspection: normal respiratory effort Auscultation: clear to auscultation bilaterally Other: No wheezing or crackles appreciated. Cardio: Rate: regular rate Rhythm: regular rhythm Other: S1-S2 present without murmur, rub, ectopy GI: Other: Abdomen soft, nondistended, nontender. Normoactive bowel sounds in all quadrants. No splenomegaly or hepatomegaly present. No ecchymosis. Skin: General skin exam: normal color and no rashes or lesions noted Wounds: no wounds Neuro: Cranial nerves: Yes Equal, round and reactive pupils present Speech: normal speech Motor exam (neuro): 5/5 motor strength present throughout Sensory Exam: normal sensation Other: A&O x4 Extrem: General: normal to inspection Psych: Mental Status: mental status grossly normal Affect: normal affect Other: Good insight and judgment, pleasant Objective Data Vital Signs Vital Signs: Vital Signs - 24 hr 10/30/24 15:06 10/30/24 15:52 10/30/24 15:59 Temperature 97.5 F L Pulse Rate 120 H 114 H 113 H Respiratory Rate 20 22 H 20 Blood Pressure 136/72 Pulse Oximetry 97 Oxygen Delivery Room Air 10/30/24 16:55 10/30/24 16:57 10/30/24 19:44 Temperature Pulse Rate 126 H 124 H 118 H Respiratory Rate 22 H 20 Blood Pressure 142/75 H Pulse Oximetry 92 Oxygen Delivery 10/30/24 19:50 10/30/24 20:15 10/30/24 20:19 Temperature 97.7 F Pulse Rate 120 H 125 H 116 H Respiratory Rate 20 21 H Blood Pressure 135/66 Pulse Oximetry 92 Oxygen Delivery 10/30/24 22:00 10/30/24 23:33 10/31/24 00:00 Temperature 97.8 F Pulse Rate 107 H 114 H 114 H Respiratory Rate 20 Blood Pressure 123/61 Pulse Oximetry 93 Oxygen Delivery 10/31/24 02:00 10/31/24 02:50 10/31/24 02:58 Temperature Pulse Rate 110 H 97 102 H Respiratory Rate 18 18 Blood Pressure Pulse Oximetry Oxygen Delivery 10/31/24 04:00 10/31/24 04:45 10/31/24 06:00 Temperature 98.8 F Pulse Rate 97 96 95 Respiratory Rate 20 Blood Pressure 123/63 Pulse Oximetry 95 Oxygen Delivery 10/31/24 08:00 10/31/24 08:30 10/31/24 11:35 Temperature 98.2 F 98.4 F Pulse Rate 89 88 94 Respiratory Rate 16 18 18 Blood Pressure 105/51 L 107/50 L Pulse Oximetry 98 100 Oxygen Delivery 10/31/24 13:07 10/31/24 13:07 10/31/24 13:17 Temperature Pulse Rate 96 96 100 Respiratory Rate 16 16 18 Blood Pressure Pulse Oximetry 97 Oxygen Delivery Room Air Intake/Output Intake/Output: Intake & Output 10/28/24 10/29/24 10/30/24 10/31/24 23:59 23:59 23:59 23:59 Intake Total 1800 790 Output Total 800 1700 Balance 1000 -910 Meds/Results Medications: Active Medications Generic Name Dose Route Start Last Admin Trade Name Freq PRN Reason Stop Dose Admin Acetaminophen 650 mg 10/30/24 18:14 Acetaminophen 325 Mg Tablet PO Q4H PRN Mild Pain (1-3) or Fever Albuterol 2 puff 10/30/24 23:30 Albuterol Sulfate (*Sp) Aerosol 1 Puff INHALATION Q4-6H PRN Shortness Of Breath Or Wheezing Albuterol/Ipratropium 3 ml 10/30/24 20:00 10/31/24 13:07 Ipratropium 0.5 Mg/Albuterol Sulfate 2.5 Mg Ampul.Neb 3 Ml INHALATION 3 ml Q6HRT DAVIDA Administration Atorvastatin Calcium 40 mg 10/31/24 09:00 10/31/24 08:39 Atorvastatin 40 Mg Tablet PO 40 mg DAILY DAVIDA Administration Azithromycin 500 mg 10/31/24 21:00 Azithromycin 500 Mg Tablet PO 11/03/24 21:01 QHS DAVIDA Benzonatate 100 mg 10/30/24 17:58 Benzonatate 100 Mg Capsule PO TID PRN Cough Clopidogrel Bisulfate 75 mg 10/31/24 09:00 10/31/24 08:40 Clopidogrel Bisulfate 75 Mg Tablet PO 75 mg QAM DAVIDA Administration Cyanocobalamin 1,000 mcg 10/31/24 09:00 10/31/24 08:39 Cyanocobalamin 1,000 Mcg Tablet PO 1,000 mcg QAM DAVIDA Administration Desmopressin Acetate 0.2 mg 10/31/24 21:00 Desmopressin Acetate 0.1 Mg Tablet PO HS DAVIDA Dextrose 12.5 gm 10/30/24 23:32 Dextrose 50% 25 Gm/50 Ml Syringe IV PUSH PRN PRN Hypoglycemia Protocol Ferrous Sulfate 325 mg 10/31/24 09:00 10/31/24 08:39 Ferrous Sulfate 325 Mg Tablet BY MOUTH 325 mg DAILY DAVIDA Administration Fluticasone Propionate 1 spray 10/30/24 23:30 Fluticasone Propionate 0.05% Na Spr 16 Gm Btl (*Bkc) NASAL Q12H PRN allergy symptoms Furosemide 40 mg 10/30/24 21:45 10/31/24 08:40 Furosemide Inj 40 Mg/4 Ml Vial IV PUSH 40 mg DAILY DAVIDA Administration Glucagon 1 mg 10/30/24 23:32 Glucagon For Inj 1 Mg Vial IM PRN PRN Hypoglycemia Protocol Glucose 15 gm 10/30/24 23:32 Glucose Oral Gel 15 Gm Of Glucse In 37.5 Gm Tube PO PRN PRN Hypoglycemia Protocol Guaifenesin 600 mg 10/30/24 21:00 10/31/24 08:39 Guaifenesin 12 Hr 600 Mg Tabcr PO 600 mg Q12HR DAVIDA Administration Heparin Sodium (Beef Lung) 50 units 10/31/24 09:00 10/31/24 08:39 Heparin Flush 50 Units/5 Ml Syringe IV PUSH 50 units QAM DAVIDA Administration Heparin Sodium (Beef Lung) 50 units 10/30/24 19:56 Heparin Flush 50 Units/5 Ml Syringe IV PUSH PRN PRN after intermittent infusion Heparin Sodium (Beef Lung) 50 units 10/30/24 19:56 Heparin Flush 50 Units/5 Ml Syringe IV PUSH PRN PRN after blood draws Heparin Sodium (Porcine) 500 units 10/30/24 19:56 Heparin Sodium Lock Flush 500 Units/5 Ml Syringe IV PUSH PRN PRN see comments below Heparin Sodium (Porcine) 5,000 units 10/31/24 14:00 10/31/24 14:30 Heparin Sodium 5,000 Units/Ml Vial SUB-Q 5,000 units Q8HR DAVIDA Administration Hydroxyzine HCl 50 mg 10/30/24 23:30 Hydroxyzine Hcl 25 Mg Tablet PO Q8H PRN Itching Cefepime HCl 2 gm/ Sodium 50 mls @ 100 mls/hr 10/30/24 21:00 10/31/24 08:41 Chloride IVPB 100 mls/hr Q12HR DAVIDA Administration Dextrose 1,000 mls @ 100 mls/hr 10/30/24 23:32 Dextrose 5% 1,000 Ml IVPB PRN PRN Hypoglycemia Protocol Insulin Aspart 2 - 5 units 10/31/24 08:00 10/31/24 12:25 Insulin Aspart (*Bkc) 100 Units/Ml SUB-Q 2 units TIDWM DAVIDA Administration Protocol Insulin Aspart 1 - 2 units 10/31/24 00:15 10/31/24 00:23 Insulin Aspart (*Bkc) 100 Units/Ml SUB-Q 1 units HS DAVIDA Administration Protocol Insulin Glargine 20 units 10/31/24 00:15 10/31/24 00:21 Insulin Glargine (*Bkc) 100 Units/Ml SUB-Q 20 units HS DAVIDA Administration Lidocaine/Prilocaine 1 each 10/30/24 23:30 Lidocaine/Prilocaine Cream 2.5-2.5% Tube TOPICAL DAILY PRN port access Loratadine 10 mg 10/30/24 23:45 Loratadine 10 Mg Tablet PO DAILY PRN allergies Magnesium Oxide 400 mg 10/31/24 09:00 10/31/24 08:39 Magnesium Oxide 400 Mg Tablet PO 400 mg DAILY DAVIDA Administration Megestrol Acetate 400 mg 10/31/24 09:00 10/31/24 08:41 Megestrol Acetate (*Chemo) Oral Susp 40 Mg/Ml Ud PO 400 mg QAM DAVIDA Administration Metoclopramide HCl 10 mg 10/30/24 23:30 Metoclopramide Hcl 10 Mg Tablet PO Q6H PRN Nausea And Vomiting Midodrine 5 mg 10/31/24 09:00 10/31/24 12:29 Midodrine Hcl 2.5 Mg Tablet PO Not Given TID DAVIDA Morphine Sulfate 4 mg 10/30/24 18:14 10/30/24 22:25 Morphine Sulfate (*Crx) 4 Mg/Ml Inj IV PUSH 4 mg Q2H PRN Administration Pain Rated 7-10 Nitroglycerin 0.4 mg 10/30/24 23:30 Nitroglycerin Sl 0.4 Mg Tablet SUBLINGUAL Q5M PRN Chest Pain Pantoprazole Sodium 40 mg 10/31/24 09:00 10/31/24 08:41 Pantoprazole 40 Mg Tablet PO 40 mg Q12HR DAVIDA Administration Polyethylene Glycol 17 gm 10/30/24 17:58 Polyethylene Glycol 3350 17 Gm Powd.Pack PO QAM PRN Constipation Pregabalin 50 mg 10/31/24 06:00 10/31/24 14:30 Pregabalin (*Crx) 50 Mg Capsule PO 50 mg Q8HR DAVIDA Administration Sodium Chloride 10 ml 10/30/24 22:00 10/31/24 05:05 Central Line Flush IV PUSH 10 ml Q8HR DAVIDA Administration Zolpidem Tartrate 10 mg 10/30/24 23:55 10/31/24 00:00 Zolpidem Tartrate (*Crx) 5 Mg Tablet PO 10 mg HS DAVIDA Administration Radiology Results: ITS Impressions Chest X-Ray 10/30/24 16:41 Impression: 1: Subtle bilateral interstitial infiltrates, suspicious for mild edema or pneumonia. Chest CTA 10/30/24 16:43 IMPRESSION: 1. Interstitial changes bilaterally with subtle patchy groundglass opacities of the lower lobes. Differential diagnosis includes atypical or viral pneumonia, early interstitial lung disease and pulmonary edema. 2: Subcapsular fluid surrounding the spleen, suspicious for hemorrhage. No laceration identified. Labs Labs: Laboratory Results - last 24 hr 10/30/24 10/30/24 10/30/24 15:39 15:41 16:16 WBC 12.3 H RBC 3.17 L Hgb 9.9 L Hct 29.7 L MCV 93.7 MCH 31.2 MCHC 33.3 RDW 13.5 Plt Count 151 MPV 9.1 Immature Gran % (Auto) 0.7 H Neut % (Auto) 92.9 H Lymph % (Auto) 2.5 L [place] % (Auto) 3.8 Eos % (Auto) 0.0 Baso % (Auto) 0.1 L Lymph # (Auto) 0.31 L [place] # (Auto) 0.5 Eos # (Auto) 0.0 Baso # (Auto) 0.0 Abs Immat Gran (auto) 0.09 H Absolute Neuts (auto) 11.4 H Absolute Nucleated RBC 0.000 Nucleated RBC % 0.0 PT 15.8 H INR 1.3 APTT 29.7 Puncture Site Left radial ABG pH 7.398 ABG pCO2 25.8 L ABG pO2 88.0 ABG PO2/FiO2 Ratio 4.19 ABG HCO3 15.6 L ABG O2 Saturation 96.9 ABG O2 Content 14.3 L ABG Base Excess -7.9 A-a Gradient 30.8 Oxyhemoglobin 94.1 Total Hemoglobin 10.7 L O2 Delivery Device Room air O2 Liters/Min 0.0 FiO2 21 Sodium 133 L Potassium 5.0 Chloride 105 Carbon Dioxide 17 L Anion Gap 11 BUN 29 H Creatinine 1.48 H Estim Creat Clear Calc 45 Estimated GFR 47 L Glucose 303 H POC Capillary Glucose Lactic Acid 2.7 H Calcium 9.4 Magnesium 1.8 Total Bilirubin 0.6 AST 27 ALT 22 Alkaline Phosphatase 116 Troponin I 0.324 H* NT-Pro-B Natriuret Pep 81290 H Total Protein 7.4 Albumin 4.0 Lipase 93 Procalcitonin 0.1 Urine Color Dark yellow Urine Appearance Clear Urine pH 6.0 Ur Specific [place] 1.025 Urine Protein 2+ H Urine Glucose (UA) Negative Urine Ketones Negative Ur Blood (Man) Negative Urine Nitrate Negative Urine Bilirubin Negative Urine Urobilinogen 0.2 Leukocyte Esterase Rfl Negative Urine RBC 0-2 Urine WBC 6-10 H Ur Squamous Epith Cells Rare Urine Bacteria 1+ H Hyaline Casts 0-2 Urine Mucus Few H Nasal MRSA (PCR) Influenza A (RT-PCR) Negative Influenza B (RT-PCR) Negative RSV (RT-PCR) Negative SARS-CoV-2 RNA (RT-PCR) Negative 10/30/24 10/30/24 10/31/24 18:44 20:26 00:19 WBC RBC Hgb Hct MCV MCH MCHC RDW Plt Count MPV Immature Gran % (Auto) Neut % (Auto) Lymph % (Auto) [place] % (Auto) Eos % (Auto) Baso % (Auto) Lymph # (Auto) [place] # (Auto) Eos # (Auto) Baso # (Auto) Abs Immat Gran (auto) Absolute Neuts (auto) Absolute Nucleated RBC Nucleated RBC % PT INR APTT Puncture Site ABG pH ABG pCO2 ABG pO2 ABG PO2/FiO2 Ratio ABG HCO3 ABG O2 Saturation ABG O2 Content ABG Base Excess A-a Gradient Oxyhemoglobin Total Hemoglobin O2 Delivery Device O2 Liters/Min FiO2 Sodium Potassium Chloride Carbon Dioxide Anion Gap BUN Creatinine Estim Creat Clear Calc Estimated GFR Glucose POC Capillary Glucose 230 H 235 H Lactic Acid 2.2 H Calcium Magnesium Total Bilirubin AST ALT Alkaline Phosphatase Troponin I 0.800 H* D NT-Pro-B Natriuret Pep Total Protein Albumin Lipase Procalcitonin 0.1 Urine Color Urine Appearance Urine pH Ur Specific [place] Urine Protein Urine Glucose (UA) Urine Ketones Ur Blood (Man) Urine Nitrate Urine Bilirubin Urine Urobilinogen Leukocyte Esterase Rfl Urine RBC Urine WBC Ur Squamous Epith Cells Urine Bacteria Hyaline Casts Urine Mucus Nasal MRSA (PCR) Not detected Influenza A (RT-PCR) Influenza B (RT-PCR) RSV (RT-PCR) SARS-CoV-2 RNA (RT-PCR) 10/31/24 10/31/24 10/31/24 03:57 07:23 11:01 WBC 10.2 H RBC 2.74 L Hgb 8.7 L Hct 25.9 L MCV 94.5 MCH 31.8 MCHC 33.6 RDW 13.7 Plt Count 136 L MPV 9.0 Immature Gran % (Auto) 0.7 H Neut % (Auto) 87.8 H Lymph % (Auto) 5.7 L [place] % (Auto) 5.6 Eos % (Auto) 0.0 Baso % (Auto) 0.2 Lymph # (Auto) 0.58 L [place] # (Auto) 0.6 Eos # (Auto) 0.0 Baso # (Auto) 0.0 Abs Immat Gran (auto) 0.07 H Absolute Neuts (auto) 9.0 H Absolute Nucleated RBC 0.000 Nucleated RBC % 0.0 PT INR APTT Puncture Site ABG pH ABG pCO2 ABG pO2 ABG PO2/FiO2 Ratio ABG HCO3 ABG O2 Saturation ABG O2 Content ABG Base Excess A-a Gradient Oxyhemoglobin Total Hemoglobin O2 Delivery Device O2 Liters/Min FiO2 Sodium 135 L Potassium 4.7 Chloride 108 H Carbon Dioxide 21 L Anion Gap 6 BUN 27 H Creatinine 1.31 H Estim Creat Clear Calc 51 Estimated GFR 54 L Glucose 191 H POC Capillary Glucose 168 H 245 H Lactic Acid Calcium 8.7 Magnesium 1.7 Total Bilirubin 0.6 AST 35 ALT 16 Alkaline Phosphatase 92 Troponin I NT-Pro-B Natriuret Pep Total Protein 6.1 L Albumin 3.2 L Lipase Procalcitonin Urine Color Urine Appearance Urine pH Ur Specific [place] Urine Protein Urine Glucose (UA) Urine Ketones Ur Blood (Man) Urine Nitrate Urine Bilirubin Urine Urobilinogen Leukocyte Esterase Rfl Urine RBC Urine WBC Ur Squamous Epith Cells Urine Bacteria Hyaline Casts Urine Mucus Nasal MRSA (PCR) Influenza A (RT-PCR) Influenza B (RT-PCR) RSV (RT-PCR) SARS-CoV-2 RNA (RT-PCR) Quality VTE Prophylaxis VTE prophylaxis: pharmacologic ordered
[2024-10-31 18:54] LABS: Iron 37 ug/dL (49-181)
[2024-10-31 19:03] LABS: Percent Iron Saturation 17 % (20-50)
[2024-10-31 19:35] LABS: Ferritin 206.00 ng/mL (11.1-264)
[2024-10-31] MEDS: AZITHROMYCIN 500 MG TABLET PO (21:03)
[2024-10-31] MEDS: ZOLPIDEM TARTRATE (*CRX) 5 MG TABLET 10 MG PO ×2 (21:04)
[2024-10-31] MEDS: DESMOPRESSIN ACETATE 0.1 MG TABLET 0.2 MG PO (21:04)
[2024-11-01] VITALS (26 sets, daily range): BP systolic 106–120; BP diastolic 41–84; PULSE 73–106; RESP 16–20; TEMP 36.5–36.8; O2SAT 96–100
[2024-11-01] MEDS: IPRATROPIUM 0.5 MG/ALBUTEROL SULFATE 2.5 MG AMPUL.NEB 3 ML INHALATION ×4 (02:46→20:45)
[2024-11-01] MEDS: CENTRAL LINE FLUSH 10 ML IV PUSH ×3 (05:29→21:29)
[2024-11-01] MEDS: PREGABALIN (*CRX) 50 MG CAPSULE PO ×3 (05:29→21:23)
[2024-11-01 05:41] LABS: Hematocrit 24.1 % (42.0-52.0); Hemoglobin 8.1 g/dL (14.0-18.0); Immature Granulocyte Percent A 0.8 % (0-0.5); Lymphocytes Absolute Auto 0.66 K/mm3 (0.9-3.2); Mean Corpuscular HGB Conc 33.6 g/dl (32-36); Mean Corpuscular Hemoglobin 31.6 pg (26-34); Mean Corpuscular Volume 94.1 fl (80-100); Nucleated Red Blood Cells Absolute Auto 0.000 K/mm3 (0.0-0.012); Nucleated Red Blood Cells Perc 0.0 % (0.0-0.2); Platelet Count Result 138 k/mm3 (150-375); Red Blood Count 2.56 M/mm3 (4.6-6.20); White Blood Count 4.8 K/mm3 (4.5-10.0)
[2024-11-01 06:01] LABS: Alanine Aminotransferase 14 U/L (6-50); Albumin Level 3.1 g/dL (3.5-5.1); Alkaline Phosphatase 85 U/L (38-126); Anion Gap 4 mmol/L (4-12); Aspartate Amino Transferase 28 U/L (17-59); Bilirubin,Total 0.6 mg/dL (0.2-1.3); Blood Urea Nitrogen 29 mg/dL (9-20); Calcium 8.5 mg/dL (8.4-10.2); Carbon Dioxide 24 mmol/L (22-30); Chloride 106 mmol/L (98-107); Estimated CRCL calculation 49 ml/min; Estimated Glomerular Filt Rate 55; Glucose 105 mg/dL (65-110); Magnesium 1.7 mg/dL (1.6-2.3); Potassium 3.7 mmol/L (3.4-5.0); Sodium 134 mmol/L (137-145); Total Protein 5.9 g/dL (6.3-8.2)
[2024-11-01] MEDS: PANTOPRAZOLE 40 MG TABLET PO ×2 (08:47→21:22)
[2024-11-01] MEDS: CYANOCOBALAMIN 1,000 MCG TABLET 1000 MCG PO (08:48)
[2024-11-01] MEDS: MAGNESIUM OXIDE 400 MG TABLET PO (08:48)
[2024-11-01] MEDS: ATORVASTATIN 40 MG TABLET PO (08:48)
[2024-11-01] MEDS: guaiFENesin 12 HR 600 MG TABCR PO ×2 (08:49→21:23)
[2024-11-01] MEDS: FERROUS SULFATE 325 MG TABLET BY MOUTH (08:49)
[2024-11-01] MEDS: CLOPIDOGREL BISULFATE 75 MG TABLET PO (08:49)
[2024-11-01] MEDS: MEGESTROL ACETATE (*CHEMO) ORAL SUSP 40 MG/ML UD 400 MG PO (09:16)
[2024-11-01] MEDS: FUROSEMIDE INJ 40 MG/4 ML VIAL IV PUSH (09:32)
[2024-11-01] MEDS: CEFEPIME 2 GM in SODIUM CHLORIDE 0.9% IV 50 ML 100 ML IVPB ×2 (09:32→21:11)
--- NOTE | 2024-11-01 16:22 | PC.NURSE ---
On 11/01/24, the student, Cathryn Whitmore, provided care and completed [facility] documentation on this patient. I have reviewed the student's documentation and agree with the findings.
--- NOTE | 2024-11-01 16:28 | P.PNIM_ITS ---
Progress Note: A&P Assessment and Plan (1) Sepsis: Qualifiers: Sepsis acute organ dysfunction status: without acute organ dysfunction Sepsis type: sepsis due to unspecified organism Qualified Code(s): A41.9 - S epsis, unspecified organism Code(s): A41.9 - Sepsis, unspecified organism Status: Acute Assessment and Plan: Vital signs stable and within normal limits CTA chest showed pneumonia Continue CEfepime and Azithromycin f/u cultures, MRSA negative, vanc discontinued monitor (2) Pneumonia: Qualifiers: Laterality: bilateral Lung location: unspecified part of lung Pneumonia type: due to unspecified organism Qualified Code(s): J18.9 - Pneumonia, unspecified organism Code(s): J18.9 - Pneumonia, unspecified organism Status: Acute Assessment and Plan: Continue above care plan (3) Acute on chronic heart failure with preserved ejection fraction: Code(s): I50.33 - Acute on chronic diastolic (congestive) heart failure Status: Acute Assessment and Plan: No edema on CT chest Hold hoem tanna for now (4) Abnormal CT of the abdomen: Code(s): R93.5 - Abnormal findings on diagnostic imaging of other abdominal regions, including retroperitoneum Status: Acute Assessment and Plan: - CTA showed subcapsular fluid surrounding the spleen suspicious for hemorrhage with no laceration identified - patient denies any recent trauma or falls - general surgery consulted, ED provider spoke with on-call general surgeon who is in favor of fluid that is reactive to patient's current pneumonia - monitor CBC and abdominal exam (5) HCC (hepatocellular carcinoma): Onset Date: 12/2022 Code(s): C22.0 - Liver cell carcinoma Status: Chronic Assessment and Plan: - history of hepatocellular carcinoma currently on immunotherapy with last treatment of immunotherapy on 10/30 - oncologist: Khanh PATHAK (6) Anemia: Qualifiers: Anemia type: unspecified type Qualified Code(s): D64.9 - Anemia, unspecified Code(s): D64.9 - Anemia, unspecified Status: Chronic Assessment and Plan: - Hgb 9.9 upon admission, previously 10.1 on 10/28 - transfuse if <7 - monitor (7) Insulin dependent diabetes mellitus: Status: Chronic Assessment and Plan: SSI with accucheks, adjust with clinical course Plan Diet: Heart healthy DVT Prophylaxis: Sq heparin Code Status: Full code Subjective Date/time seen: 11/01/24 16:28 Interval history: Comfortable at bedside Review of Systems Review of Systems: All systems reviewed & are unremarkable except as noted in HPI and below Exam Const: General: comfortable and no acute distress Other: , male, nontoxic appearance HENMT: Face/Nose/Sinus: Normal nares present Mouth: Yes moist mucous membranes Eyes: General: appearance normal, both eyes and all related structures Sclera: sclerae normal Pupils: Equal, round and reactive pupils present EOM: EOMs intact bilaterally Resp: Effort & Inspection: normal respiratory effort Auscultation: clear to auscultation bilaterally Other: No wheezing or crackles appreciated. Cardio: Rate: regular rate Rhythm: regular rhythm Other: S1-S2 present without murmur, rub, ectopy GI: Other: Abdomen soft, nondistended, nontender. Normoactive bowel sounds in all quadrants. No splenomegaly or hepatomegaly present. No ecchymosis. Skin: General skin exam: normal color and no rashes or lesions noted Wounds: no wounds Neuro: Cranial nerves: Yes Equal, round and reactive pupils present Speech: normal speech Motor exam (neuro): 5/5 motor strength present throughout Sensory Exam: normal sensation Other: A&O x4 Extrem: General: normal to inspection Psych: Mental Status: mental status grossly normal Affect: normal affect Other: Good insight and judgment, pleasant Objective Data Vital Signs Vital Signs: Vital Signs - 24 hr 10/31/24 20:00 10/31/24 20:00 10/31/24 20:03 Temperature 98.3 F Pulse Rate 99 96 Respiratory Rate 20 Blood Pressure 118/49 L Pulse Oximetry 98 Oxygen Delivery Room Air 10/31/24 20:48 10/31/24 20:50 10/31/24 20:55 Temperature Pulse Rate 101 H 102 H Respiratory Rate 20 20 Blood Pressure Pulse Oximetry 96 Oxygen Delivery Room Air 10/31/24 22:00 10/31/24 23:57 11/01/24 00:00 Temperature 98.2 F Pulse Rate 137 H 98 Respiratory Rate 16 Blood Pressure 110/43 L Pulse Oximetry 97 Oxygen Delivery Room Air 11/01/24 00:00 11/01/24 02:00 11/01/24 02:47 Temperature Pulse Rate 97 94 104 H Respiratory Rate 20 Blood Pressure Pulse Oximetry Oxygen Delivery 11/01/24 02:53 11/01/24 04:00 11/01/24 04:00 Temperature Pulse Rate 106 H 105 H Respiratory Rate 20 Blood Pressure Pulse Oximetry Oxygen Delivery Room Air 11/01/24 04:01 11/01/24 06:00 11/01/24 08:00 Temperature 98.0 F Pulse Rate 91 102 H 104 H Respiratory Rate 16 Blood Pressure 120/52 L Pulse Oximetry 96 Oxygen Delivery 11/01/24 08:16 11/01/24 08:18 11/01/24 08:24 Temperature 97.7 F Pulse Rate 95 98 Respiratory Rate 20 18 Blood Pressure 110/41 L Pulse Oximetry 99 98 Oxygen Delivery Room Air 11/01/24 08:26 11/01/24 10:00 11/01/24 12:00 Temperature Pulse Rate 100 100 106 H Respiratory Rate 18 Blood Pressure Pulse Oximetry Oxygen Delivery 11/01/24 12:20 11/01/24 13:53 11/01/24 13:58 Temperature 97.7 F Pulse Rate 103 H 100 100 Respiratory Rate 18 18 18 Blood Pressure 106/49 L Pulse Oximetry 100 Oxygen Delivery 11/01/24 14:00 11/01/24 16:20 Temperature 98.1 F Pulse Rate 101 H 100 Respiratory Rate 20 Blood Pressure 110/56 L Pulse Oximetry 99 Oxygen Delivery Intake/Output Intake/Output: Intake & Output 10/29/24 10/30/24 10/31/24 11/01/24 23:59 23:59 23:59 23:59 Intake Total 1800 1780 850 Output Total 800 4000 1900 Balance 1000 -2220 -1050 Meds/Results Medications: Active Medications Generic Name Dose Route Start Last Admin Trade Name Freq PRN Reason Stop Dose Admin Acetaminophen 650 mg 10/30/24 18:14 Acetaminophen 325 Mg Tablet PO Q4H PRN Mild Pain (1-3) or Fever Albuterol 2 puff 10/30/24 23:30 Albuterol Sulfate (*Sp) Aerosol 1 Puff INHALATION Q4-6H PRN Shortness Of Breath Or Wheezing Albuterol/Ipratropium 3 ml 10/30/24 20:00 11/01/24 13:52 Ipratropium 0.5 Mg/Albuterol Sulfate 2.5 Mg Ampul.Neb 3 Ml INHALATION 3 ml Q6HRT DAVIDA Administration Atorvastatin Calcium 40 mg 10/31/24 09:00 11/01/24 08:48 Atorvastatin 40 Mg Tablet PO 40 mg DAILY DAVIDA Administration Azithromycin 500 mg 10/31/24 21:00 10/31/24 21:03 Azithromycin 500 Mg Tablet PO 11/03/24 21:01 500 mg QHS DAVIDA Administration Benzonatate 100 mg 10/30/24 17:58 Benzonatate 100 Mg Capsule PO TID PRN Cough Clopidogrel Bisulfate 75 mg 10/31/24 09:00 11/01/24 08:49 Clopidogrel Bisulfate 75 Mg Tablet PO 75 mg QAM DAVIDA Administration Cyanocobalamin 1,000 mcg 10/31/24 09:00 11/01/24 08:48 Cyanocobalamin 1,000 Mcg Tablet PO 1,000 mcg QAM DAVIDA Administration Desmopressin Acetate 0.2 mg 10/31/24 21:00 10/31/24 21:04 Desmopressin Acetate 0.1 Mg Tablet PO 0.2 mg HS DAVIDA Administration Dextrose 12.5 gm 10/30/24 23:32 Dextrose 50% 25 Gm/50 Ml Syringe IV PUSH PRN PRN Hypoglycemia Protocol Ferrous Sulfate 325 mg 10/31/24 09:00 11/01/24 08:49 Ferrous Sulfate 325 Mg Tablet BY MOUTH 325 mg DAILY DAVIDA Administration Fluticasone Propionate 1 spray 10/30/24 23:30 Fluticasone Propionate 0.05% Na Spr 16 Gm Btl (*Bkc) NASAL Q12H PRN allergy symptoms Furosemide 40 mg 10/30/24 21:45 11/01/24 09:32 Furosemide Inj 40 Mg/4 Ml Vial IV PUSH 40 mg DAILY DAVIDA Administration Glucagon 1 mg 10/30/24 23:32 Glucagon For Inj 1 Mg Vial IM PRN PRN Hypoglycemia Protocol Glucose 15 gm 10/30/24 23:32 Glucose Oral Gel 15 Gm Of Glucse In 37.5 Gm Tube PO PRN PRN Hypoglycemia Protocol Guaifenesin 600 mg 10/30/24 21:00 11/01/24 08:49 Guaifenesin 12 Hr 600 Mg Tabcr PO 600 mg Q12HR DAVIDA Administration Heparin Sodium (Beef Lung) 50 units 10/31/24 09:00 11/01/24 15:43 Heparin Flush 50 Units/5 Ml Syringe IV PUSH 50 units QAM DAVIDA Administration Heparin Sodium (Beef Lung) 50 units 10/30/24 19:56 Heparin Flush 50 Units/5 Ml Syringe IV PUSH PRN PRN after intermittent infusion Heparin Sodium (Beef Lung) 50 units 10/30/24 19:56 Heparin Flush 50 Units/5 Ml Syringe IV PUSH PRN PRN after blood draws Heparin Sodium (Porcine) 500 units 10/30/24 19:56 Heparin Sodium Lock Flush 500 Units/5 Ml Syringe IV PUSH PRN PRN see comments below Heparin Sodium (Porcine) 5,000 units 10/31/24 14:00 11/01/24 15:37 Heparin Sodium 5,000 Units/Ml Vial SUB-Q 5,000 units Q8HR DAVIDA Administration Hydroxyzine HCl 50 mg 10/30/24 23:30 Hydroxyzine Hcl 25 Mg Tablet PO Q8H PRN Itching Cefepime HCl 2 gm/ Sodium 50 mls @ 100 mls/hr 10/30/24 21:00 11/01/24 09:32 Chloride IVPB 100 mls/hr Q12HR DAVIDA Administration Dextrose 1,000 mls @ 100 mls/hr 10/30/24 23:32 Dextrose 5% 1,000 Ml IVPB PRN PRN Hypoglycemia Protocol Insulin Aspart 2 - 5 units 10/31/24 08:00 11/01/24 12:33 Insulin Aspart (*Bkc) 100 Units/Ml SUB-Q Not Given TIDWM DAVIDA Protocol Insulin Aspart 1 - 2 units 10/31/24 00:15 10/31/24 21:27 Insulin Aspart (*Bkc) 100 Units/Ml SUB-Q 2 units HS DAVIDA Administration Protocol Insulin Glargine 20 units 10/31/24 00:15 10/31/24 21:30 Insulin Glargine (*Bkc) 100 Units/Ml SUB-Q 20 units HS DAVIDA Administration Lidocaine/Prilocaine 1 each 10/30/24 23:30 Lidocaine/Prilocaine Cream 2.5-2.5% Tube TOPICAL DAILY PRN port access Loratadine 10 mg 10/30/24 23:45 Loratadine 10 Mg Tablet PO DAILY PRN allergies Magnesium Oxide 400 mg 10/31/24 09:00 11/01/24 08:48 Magnesium Oxide 400 Mg Tablet PO 400 mg DAILY DAVIDA Administration Megestrol Acetate 400 mg 10/31/24 09:00 11/01/24 09:16 Megestrol Acetate (*Chemo) Oral Susp 40 Mg/Ml Ud PO 400 mg QAM DAVIDA Administration Metoclopramide HCl 10 mg 10/30/24 23:30 Metoclopramide Hcl 10 Mg Tablet PO Q6H PRN Nausea And Vomiting Midodrine 5 mg 10/31/24 09:00 11/01/24 12:32 Midodrine Hcl 2.5 Mg Tablet PO Not Given TID DAVIDA Morphine Sulfate 4 mg 10/30/24 18:14 10/30/24 22:25 Morphine Sulfate (*Crx) 4 Mg/Ml Inj IV PUSH 4 mg Q2H PRN Administration Pain Rated 7-10 Nitroglycerin 0.4 mg 10/30/24 23:30 Nitroglycerin Sl 0.4 Mg Tablet SUBLINGUAL Q5M PRN Chest Pain Pantoprazole Sodium 40 mg 10/31/24 09:00 11/01/24 08:47 Pantoprazole 40 Mg Tablet PO 40 mg Q12HR DAVIDA Administration Polyethylene Glycol 17 gm 10/30/24 17:58 10/31/24 21:37 Polyethylene Glycol 3350 17 Gm Powd.Pack PO 17 gm QAM PRN Administration Constipation Pregabalin 50 mg 10/31/24 06:00 11/01/24 15:37 Pregabalin (*Crx) 50 Mg Capsule PO 50 mg Q8HR DAVIDA Administration Sodium Chloride 10 ml 10/30/24 22:00 11/01/24 15:37 Central Line Flush IV PUSH 10 ml Q8HR DAVIDA Administration Zolpidem Tartrate 10 mg 10/30/24 23:55 10/31/24 21:04 Zolpidem Tartrate (*Crx) 5 Mg Tablet PO 10 mg HS DAVIDA Administration Radiology Results: ITS Impressions Chest X-Ray 10/30/24 16:41 Impression: 1: Subtle bilateral interstitial infiltrates, suspicious for mild edema or pneumonia. Chest CTA 10/30/24 16:43 IMPRESSION: 1. Interstitial changes bilaterally with subtle patchy groundglass opacities of the lower lobes. Differential diagnosis includes atypical or viral pneumonia, early interstitial lung disease and pulmonary edema. 2: Subcapsular fluid surrounding the spleen, suspicious for hemorrhage. No laceration identified. Labs Labs: Laboratory Results - last 24 hr 10/31/24 10/31/24 10/31/24 16:29 18:30 20:25 WBC RBC Hgb Hct MCV MCH MCHC RDW Plt Count MPV Immature Gran % (Auto) Neut % (Auto) Lymph % (Auto) [place] % (Auto) Eos % (Auto) Baso % (Auto) Lymph # (Auto) [place] # (Auto) Eos # (Auto) Baso # (Auto) Abs Immat Gran (auto) Absolute Neuts (auto) Absolute Nucleated RBC Nucleated RBC % Sodium Potassium Chloride Carbon Dioxide Anion Gap BUN Creatinine Estim Creat Clear Calc Estimated GFR Glucose POC Capillary Glucose 264 H 348 H Calcium Magnesium Iron 37 L TIBC 223 L % Saturation 17 L Ferritin 206.00 Total Bilirubin AST ALT Alkaline Phosphatase Total Protein Albumin 11/01/24 11/01/24 11/01/24 05:27 07:30 12:03 WBC 4.8 RBC 2.56 L Hgb 8.1 L Hct 24.1 L MCV 94.1 MCH 31.6 MCHC 33.6 RDW 13.6 Plt Count 138 L MPV 9.3 Immature Gran % (Auto) 0.8 H Neut % (Auto) 72.0 Lymph % (Auto) 13.8 L [place] % (Auto) 11.3 H Eos % (Auto) 1.7 Baso % (Auto) 0.4 Lymph # (Auto) 0.66 L [place] # (Auto) 0.5 Eos # (Auto) 0.1 Baso # (Auto) 0.0 Abs Immat Gran (auto) 0.04 H Absolute Neuts (auto) 3.5 Absolute Nucleated RBC 0.000 Nucleated RBC % 0.0 Sodium 134 L Potassium 3.7 Chloride 106 Carbon Dioxide 24 Anion Gap 4 BUN 29 H Creatinine 1.29 Estim Creat Clear Calc 49 Estimated GFR 55 L Glucose 105 POC Capillary Glucose 109 H 110 H Calcium 8.5 Magnesium 1.7 Iron TIBC % Saturation Ferritin Total Bilirubin 0.6 AST 28 ALT 14 Alkaline Phosphatase 85 Total Protein 5.9 L Albumin 3.1 L 11/01/24 16:15 WBC RBC Hgb Hct MCV MCH MCHC RDW Plt Count MPV Immature Gran % (Auto) Neut % (Auto) Lymph % (Auto) [place] % (Auto) Eos % (Auto) Baso % (Auto) Lymph # (Auto) [place] # (Auto) Eos # (Auto) Baso # (Auto) Abs Immat Gran (auto) Absolute Neuts (auto) Absolute Nucleated RBC Nucleated RBC % Sodium Potassium Chloride Carbon Dioxide Anion Gap BUN Creatinine Estim Creat Clear Calc Estimated GFR Glucose POC Capillary Glucose 183 H Calcium Magnesium Iron TIBC % Saturation Ferritin Total Bilirubin AST ALT Alkaline Phosphatase Total Protein Albumin Quality VTE Prophylaxis VTE prophylaxis: pharmacologic ordered
[2024-11-01] MEDS: INSULIN GLARGINE (*BKC) 100 UNITS/ML 20 UNITS SUB-Q (21:19)
[2024-11-01] MEDS: AZITHROMYCIN 500 MG TABLET PO (21:22)
[2024-11-01] MEDS: ZOLPIDEM TARTRATE (*CRX) 5 MG TABLET 10 MG PO (21:22)
[2024-11-01] MEDS: DESMOPRESSIN ACETATE 0.1 MG TABLET 0.2 MG PO (21:22)
[2024-11-02] VITALS (26 sets, daily range): BP systolic 107–122; BP diastolic 46–54; PULSE 73–102; RESP 14–22; TEMP 36.5–36.9; O2SAT 92–100
[2024-11-02] MEDS: IPRATROPIUM 0.5 MG/ALBUTEROL SULFATE 2.5 MG AMPUL.NEB 3 ML INHALATION ×4 (02:37→20:18)
[2024-11-02] MEDS: PREGABALIN (*CRX) 50 MG CAPSULE PO ×3 (05:39→21:01)
[2024-11-02 06:05] LABS: Hematocrit 24.0 % (42.0-52.0); Hemoglobin 8.3 g/dL (14.0-18.0); Immature Granulocyte Percent A 0.8 % (0-0.5); Lymphocytes Absolute Auto 0.66 K/mm3 (0.9-3.2); Mean Corpuscular HGB Conc 34.6 g/dl (32-36); Mean Corpuscular Hemoglobin 32.3 pg (26-34); Mean Corpuscular Volume 93.4 fl (80-100); Nucleated Red Blood Cells Absolute Auto 0.000 K/mm3 (0.0-0.012); Nucleated Red Blood Cells Perc 0.0 % (0.0-0.2); Platelet Count Result 136 k/mm3 (150-375); Red Blood Count 2.57 M/mm3 (4.6-6.20); White Blood Count 5.0 K/mm3 (4.5-10.0)
[2024-11-02 06:15] LABS: Iron 97 ug/dL (49-181)
[2024-11-02 06:17] LABS: Alanine Aminotransferase 13 U/L (6-50); Albumin Level 3.2 g/dL (3.5-5.1); Alkaline Phosphatase 83 U/L (38-126); Anion Gap 5 mmol/L (4-12); Aspartate Amino Transferase 24 U/L (17-59); Bilirubin,Total 0.7 mg/dL (0.2-1.3); Blood Urea Nitrogen 26 mg/dL (9-20); Calcium 8.4 mg/dL (8.4-10.2); Carbon Dioxide 24 mmol/L (22-30); Chloride 102 mmol/L (98-107); Estimated CRCL calculation 49 ml/min; Estimated Glomerular Filt Rate 55; Glucose 122 mg/dL (65-110); Magnesium 1.8 mg/dL (1.6-2.3); Potassium 3.9 mmol/L (3.4-5.0); Sodium 131 mmol/L (137-145); Total Protein 6.0 g/dL (6.3-8.2)
[2024-11-02 06:25] LABS: Percent Iron Saturation 44 % (20-50)
[2024-11-02] MEDS: CENTRAL LINE FLUSH 10 ML IV PUSH ×3 (06:37→22:05)
[2024-11-02 06:56] LABS: Ferritin 218.00 ng/mL (11.1-264)
[2024-11-02] MEDS: ATORVASTATIN 40 MG TABLET PO (09:38)
[2024-11-02] MEDS: FERROUS SULFATE 325 MG TABLET BY MOUTH (09:38)
[2024-11-02] MEDS: MIDODRINE HCL 2.5 MG TABLET 5 MG PO ×3 (09:38→16:51)
[2024-11-02] MEDS: CYANOCOBALAMIN 1,000 MCG TABLET 1000 MCG PO (09:38)
[2024-11-02] MEDS: PANTOPRAZOLE 40 MG TABLET PO ×2 (09:38→20:51)
[2024-11-02] MEDS: MAGNESIUM OXIDE 400 MG TABLET PO (09:38)
[2024-11-02] MEDS: CLOPIDOGREL BISULFATE 75 MG TABLET PO (09:39)
[2024-11-02] MEDS: FUROSEMIDE INJ 40 MG/4 ML VIAL IV PUSH (09:39)
[2024-11-02] MEDS: MEGESTROL ACETATE (*CHEMO) ORAL SUSP 40 MG/ML UD 400 MG PO (09:39)
[2024-11-02] MEDS: CEFEPIME 2 GM in SODIUM CHLORIDE 0.9% IV 50 ML 100 ML IVPB ×2 (09:39→20:52)
[2024-11-02] MEDS: guaiFENesin 12 HR 600 MG TABCR PO ×2 (09:39→20:51)
[2024-11-02] MEDS: INSULIN ASPART (*BKC) 100 UNITS/ML SUB-Q ×3 (12:13→21:05)
--- NOTE | 2024-11-02 13:05 | P.PNIM_ITS ---
Progress Note: A&P Assessment and Plan (1) Sepsis: Qualifiers: Sepsis acute organ dysfunction status: without acute organ dysfunction Sepsis type: sepsis due to unspecified organism Qualified Code(s): A41.9 - S epsis, unspecified organism Code(s): A41.9 - Sepsis, unspecified organism Status: Acute Assessment and Plan: Vital signs stable and within normal limits CTA chest showed pneumonia Continue CEfepime and Azithromycin f/u cultures, MRSA negative, vanc discontinued monitor (2) Pneumonia: Qualifiers: Laterality: bilateral Lung location: unspecified part of lung Pneumonia type: due to unspecified organism Qualified Code(s): J18.9 - Pneumonia, unspecified organism Code(s): J18.9 - Pneumonia, unspecified organism Status: Acute Assessment and Plan: Continue above care plan (3) Acute on chronic heart failure with preserved ejection fraction: Code(s): I50.33 - Acute on chronic diastolic (congestive) heart failure Status: Acute Assessment and Plan: No edema on CT chest Hold hoem tanna for now (4) Abnormal CT of the abdomen: Code(s): R93.5 - Abnormal findings on diagnostic imaging of other abdominal regions, including retroperitoneum Status: Acute Assessment and Plan: - CTA showed subcapsular fluid surrounding the spleen suspicious for hemorrhage with no laceration identified - patient denies any recent trauma or falls - general surgery consulted, ED provider spoke with on-call general surgeon who is in favor of fluid that is reactive to patient's current pneumonia - monitor CBC and abdominal exam (5) HCC (hepatocellular carcinoma): Onset Date: 12/2022 Code(s): C22.0 - Liver cell carcinoma Status: Chronic Assessment and Plan: - history of hepatocellular carcinoma currently on immunotherapy with last treatment of immunotherapy on 10/30 - oncologist: Khanh PATHAK (6) Anemia: Qualifiers: Anemia type: unspecified type Qualified Code(s): D64.9 - Anemia, unspecified Code(s): D64.9 - Anemia, unspecified Status: Chronic Assessment and Plan: - Hgb 9.9 upon admission, previously 10.1 on 10/28 - transfuse if <7 - monitor (7) Insulin dependent diabetes mellitus: Status: Chronic Assessment and Plan: SSI with accucheks, adjust with clinical course Plan Diet: Heart healthy DVT Prophylaxis: Sq heparin Code Status: Full code Subjective Date/time seen: 11/02/24 13:05 Interval history: Comfortable at bedside [place] is tachycardic and tachypneic and stated he feels weaker today will monitor one more day Review of Systems Review of Systems: All systems reviewed & are unremarkable except as noted in HPI and below Exam Const: General: comfortable and no acute distress Other: , male, nontoxic appearance HENMT: Face/Nose/Sinus: Normal nares present Mouth: Yes moist mucous membranes Eyes: General: appearance normal, both eyes and all related structures Sclera: sclerae normal Pupils: Equal, round and reactive pupils present EOM: EOMs intact bilaterally Resp: Effort & Inspection: normal respiratory effort Auscultation: clear to auscultation bilaterally Other: No wheezing or crackles appreciated. Cardio: Rate: regular rate Rhythm: regular rhythm Other: S1-S2 present without murmur, rub, ectopy GI: Other: Abdomen soft, nondistended, nontender. Normoactive bowel sounds in all quadrants. No splenomegaly or hepatomegaly present. No ecchymosis. Skin: General skin exam: normal color and no rashes or lesions noted Wounds: no wounds Neuro: Cranial nerves: Yes Equal, round and reactive pupils present Speech: normal speech Motor exam (neuro): 5/5 motor strength present throughout Sensory Exam: normal sensation Other: A&O x4 Extrem: General: normal to inspection Psych: Mental Status: mental status grossly normal Affect: normal affect Other: Good insight and judgment, pleasant Objective Data Vital Signs Vital Signs: Vital Signs - 24 hr 11/01/24 13:53 11/01/24 13:58 11/01/24 14:00 Temperature Pulse Rate 100 100 101 H Respiratory Rate 18 18 Blood Pressure Pulse Oximetry Oxygen Delivery 11/01/24 16:00 11/01/24 16:20 11/01/24 18:00 Temperature 98.1 F Pulse Rate 96 100 96 Respiratory Rate 20 Blood Pressure 110/56 L Pulse Oximetry 99 Oxygen Delivery 11/01/24 19:44 11/01/24 20:00 11/01/24 20:00 Temperature 98.2 F Pulse Rate 92 104 H Respiratory Rate 18 Blood Pressure 114/84 Pulse Oximetry 99 Oxygen Delivery Room Air 11/01/24 20:45 11/01/24 20:45 11/01/24 20:51 Temperature Pulse Rate 73 73 Respiratory Rate 18 18 Blood Pressure Pulse Oximetry 96 Oxygen Delivery Room Air 11/01/24 22:00 11/02/24 00:00 11/02/24 00:00 Temperature Pulse Rate 102 H 91 Respiratory Rate Blood Pressure Pulse Oximetry Oxygen Delivery Room Air 11/02/24 00:39 11/02/24 02:00 11/02/24 02:37 Temperature 98.1 F Pulse Rate 98 92 73 Respiratory Rate 16 18 Blood Pressure 111/51 L Pulse Oximetry 99 Oxygen Delivery 11/02/24 02:43 11/02/24 03:30 11/02/24 04:00 Temperature 98.5 F Pulse Rate 73 101 H Respiratory Rate 18 15 Blood Pressure 108/46 L Pulse Oximetry 99 Oxygen Delivery Room Air 11/02/24 04:00 11/02/24 06:00 11/02/24 07:42 Temperature 98.2 F Pulse Rate 97 93 102 H Respiratory Rate 22 H Blood Pressure 114/49 L Pulse Oximetry 99 Oxygen Delivery 11/02/24 07:57 11/02/24 08:01 11/02/24 08:03 Temperature Pulse Rate 93 93 89 Respiratory Rate 18 18 Blood Pressure Pulse Oximetry 100 Oxygen Delivery Room Air 11/02/24 11:38 Temperature 97.9 F Pulse Rate 96 Respiratory Rate 18 Blood Pressure 113/47 L Pulse Oximetry 100 Oxygen Delivery Intake/Output Intake/Output: Intake & Output 10/30/24 10/31/24 11/01/24 11/02/24 23:59 23:59 23:59 23:59 Intake Total 1800 1780 1190 790 Output Total 800 4000 2500 551 Balance [phone] -[id number] -4772 239 Meds/Results Medications: Active Medications Generic Name Dose Route Start Last Admin Trade Name Freq PRN Reason Stop Dose Admin Acetaminophen 650 mg 10/30/24 18:14 Acetaminophen 325 Mg Tablet PO Q4H PRN Mild Pain (1-3) or Fever Albuterol 2 puff 10/30/24 23:30 Albuterol Sulfate (*Sp) Aerosol 1 Puff INHALATION Q4-6H PRN Shortness Of Breath Or Wheezing Albuterol/Ipratropium 3 ml 10/30/24 20:00 11/02/24 07:57 Ipratropium 0.5 Mg/Albuterol Sulfate 2.5 Mg Ampul.Neb 3 Ml INHALATION 3 ml Q6HRT DAVIDA Administration Atorvastatin Calcium 40 mg 10/31/24 09:00 11/02/24 09:38 Atorvastatin 40 Mg Tablet PO 40 mg DAILY DAVIDA Administration Azithromycin 500 mg 10/31/24 21:00 11/01/24 21:22 Azithromycin 500 Mg Tablet PO 11/03/24 21:01 500 mg QHS DAVIDA Administration Benzonatate 100 mg 10/30/24 17:58 Benzonatate 100 Mg Capsule PO TID PRN Cough Clopidogrel Bisulfate 75 mg 10/31/24 09:00 11/02/24 09:39 Clopidogrel Bisulfate 75 Mg Tablet PO 75 mg QAM DAVIDA Administration Cyanocobalamin 1,000 mcg 10/31/24 09:00 11/02/24 09:38 Cyanocobalamin 1,000 Mcg Tablet PO 1,000 mcg QAM DAVIDA Administration Desmopressin Acetate 0.2 mg 10/31/24 21:00 11/01/24 21:22 Desmopressin Acetate 0.1 Mg Tablet PO 0.2 mg HS DAVIDA Administration Dextrose 12.5 gm 10/30/24 23:32 Dextrose 50% 25 Gm/50 Ml Syringe IV PUSH PRN PRN Hypoglycemia Protocol Ferrous Sulfate 325 mg 10/31/24 09:00 11/02/24 09:38 Ferrous Sulfate 325 Mg Tablet BY MOUTH 325 mg DAILY DAVIDA Administration Fluticasone Propionate 1 spray 10/30/24 23:30 Fluticasone Propionate 0.05% Na Spr 16 Gm Btl (*Bkc) NASAL Q12H PRN allergy symptoms Furosemide 40 mg 10/30/24 21:45 11/02/24 09:39 Furosemide Inj 40 Mg/4 Ml Vial IV PUSH 40 mg DAILY DAVIDA Administration Glucagon 1 mg 10/30/24 23:32 Glucagon For Inj 1 Mg Vial IM PRN PRN Hypoglycemia Protocol Glucose 15 gm 10/30/24 23:32 Glucose Oral Gel 15 Gm Of Glucse In 37.5 Gm Tube PO PRN PRN Hypoglycemia Protocol Guaifenesin 600 mg 10/30/24 21:00 11/02/24 09:39 Guaifenesin 12 Hr 600 Mg Tabcr PO 600 mg Q12HR DAVIDA Administration Heparin Sodium (Beef Lung) 50 units 10/31/24 09:00 11/02/24 09:39 Heparin Flush 50 Units/5 Ml Syringe IV PUSH 50 units QAM DAVIDA Administration Heparin Sodium (Beef Lung) 50 units 10/30/24 19:56 Heparin Flush 50 Units/5 Ml Syringe IV PUSH PRN PRN after intermittent infusion Heparin Sodium (Beef Lung) 50 units 10/30/24 19:56 Heparin Flush 50 Units/5 Ml Syringe IV PUSH PRN PRN after blood draws Heparin Sodium (Porcine) 500 units 10/30/24 19:56 Heparin Sodium Lock Flush 500 Units/5 Ml Syringe IV PUSH PRN PRN see comments below Heparin Sodium (Porcine) 5,000 units 10/31/24 14:00 11/02/24 12:13 Heparin Sodium 5,000 Units/Ml Vial SUB-Q 5,000 units Q8HR DAVIDA Administration Hydroxyzine HCl 50 mg 10/30/24 23:30 Hydroxyzine Hcl 25 Mg Tablet PO Q8H PRN Itching Cefepime HCl 2 gm/ Sodium 50 mls @ 100 mls/hr 10/30/24 21:00 11/02/24 09:39 Chloride IVPB 100 mls/hr Q12HR DAVIDA Administration Dextrose 1,000 mls @ 100 mls/hr 10/30/24 23:32 Dextrose 5% 1,000 Ml IVPB PRN PRN Hypoglycemia Protocol Insulin Aspart 2 - 5 units 10/31/24 08:00 11/02/24 12:13 Insulin Aspart (*Bkc) 100 Units/Ml SUB-Q 2 units TIDWM DAVIDA Administration Protocol Insulin Aspart 1 - 2 units 10/31/24 00:15 11/01/24 21:23 Insulin Aspart (*Bkc) 100 Units/Ml SUB-Q Not Given HS DAVIDA Protocol Insulin Glargine 20 units 10/31/24 00:15 11/01/24 21:19 Insulin Glargine (*Bkc) 100 Units/Ml SUB-Q 20 units HS DAVIDA Administration Lidocaine/Prilocaine 1 each 10/30/24 23:30 Lidocaine/Prilocaine Cream 2.5-2.5% Tube TOPICAL DAILY PRN port access Loratadine 10 mg 10/30/24 23:45 Loratadine 10 Mg Tablet PO DAILY PRN allergies Magnesium Oxide 400 mg 10/31/24 09:00 11/02/24 09:38 Magnesium Oxide 400 Mg Tablet PO 400 mg DAILY DAVIDA Administration Megestrol Acetate 400 mg 10/31/24 09:00 11/02/24 09:39 Megestrol Acetate (*Chemo) Oral Susp 40 Mg/Ml Ud PO 400 mg QAM DAVIDA Administration Metoclopramide HCl 10 mg 10/30/24 23:30 Metoclopramide Hcl 10 Mg Tablet PO Q6H PRN Nausea And Vomiting Midodrine 5 mg 10/31/24 09:00 11/02/24 12:13 Midodrine Hcl 2.5 Mg Tablet PO 5 mg TID DAVIDA Administration Morphine Sulfate 4 mg 10/30/24 18:14 10/30/24 22:25 Morphine Sulfate (*Crx) 4 Mg/Ml Inj IV PUSH 4 mg Q2H PRN Administration Pain Rated 7-10 Nitroglycerin 0.4 mg 10/30/24 23:30 Nitroglycerin Sl 0.4 Mg Tablet SUBLINGUAL Q5M PRN Chest Pain Pantoprazole Sodium 40 mg 10/31/24 09:00 11/02/24 09:38 Pantoprazole 40 Mg Tablet PO 40 mg Q12HR DAVIDA Administration Polyethylene Glycol 17 gm 10/30/24 17:58 11/01/24 21:22 Polyethylene Glycol 3350 17 Gm Powd.Pack PO 17 gm QAM PRN Administration Constipation Pregabalin 50 mg 10/31/24 06:00 11/02/24 05:39 Pregabalin (*Crx) 50 Mg Capsule PO 50 mg Q8HR DAVIDA Administration Sodium Chloride 10 ml 10/30/24 22:00 11/02/24 06:37 Central Line Flush IV PUSH 10 ml Q8HR DAVIDA Administration Zolpidem Tartrate 10 mg 10/30/24 23:55 11/01/24 21:22 Zolpidem Tartrate (*Crx) 5 Mg Tablet PO 10 mg HS DAVIDA Administration Radiology Results: ITS Impressions Chest X-Ray 10/30/24 16:41 Impression: 1: Subtle bilateral interstitial infiltrates, suspicious for mild edema or pneumonia. Chest CTA 10/30/24 16:43 IMPRESSION: 1. Interstitial changes bilaterally with subtle patchy groundglass opacities of the lower lobes. Differential diagnosis includes atypical or viral pneumonia, early interstitial lung disease and pulmonary edema. 2: Subcapsular fluid surrounding the spleen, suspicious for hemorrhage. No laceration identified. Labs Labs: Laboratory Results - last 24 hr 11/01/24 11/01/24 11/02/24 16:15 20:09 05:56 WBC RBC Hgb Hct MCV MCH MCHC RDW Plt Count MPV Immature Gran % (Auto) Neut % (Auto) Lymph % (Auto) [place] % (Auto) Eos % (Auto) Baso % (Auto) Lymph # (Auto) [place] # (Auto) Eos # (Auto) Baso # (Auto) Abs Immat Gran (auto) Absolute Neuts (auto) Absolute Nucleated RBC Nucleated RBC % Sodium 131 L Potassium 3.9 Chloride 102 Carbon Dioxide 24 Anion Gap 5 BUN 26 H Creatinine 1.29 Estim Creat Clear Calc 49 Estimated GFR 55 L Glucose 122 H POC Capillary Glucose 183 H 199 H Calcium 8.4 Magnesium 1.8 Iron TIBC % Saturation Ferritin Total Bilirubin 0.7 AST 24 ALT 13 Alkaline Phosphatase 83 Total Protein 6.0 L Albumin 3.2 L 11/02/24 11/02/24 11/02/24 05:57 07:15 11:19 WBC 5.0 RBC 2.57 L Hgb 8.3 L Hct 24.0 L MCV 93.4 MCH 32.3 MCHC 34.6 RDW 13.4 Plt Count 136 L MPV 9.2 Immature Gran % (Auto) 0.8 H Neut % (Auto) 72.4 Lymph % (Auto) 13.1 L [place] % (Auto) 9.7 H Eos % (Auto) 3.6 Baso % (Auto) 0.4 Lymph # (Auto) 0.66 L [place] # (Auto) 0.5 Eos # (Auto) 0.2 Baso # (Auto) 0.0 Abs Immat Gran (auto) 0.04 H Absolute Neuts (auto) 3.6 Absolute Nucleated RBC 0.000 Nucleated RBC % 0.0 Sodium Potassium Chloride Carbon Dioxide Anion Gap BUN Creatinine Estim Creat Clear Calc Estimated GFR Glucose POC Capillary Glucose 120 H 233 H Calcium Magnesium Iron 97 TIBC 218 L % Saturation 44 Ferritin 218.00 Total Bilirubin AST ALT Alkaline Phosphatase Total Protein Albumin Quality VTE Prophylaxis VTE prophylaxis: pharmacologic ordered
[2024-11-02] MEDS: DESMOPRESSIN ACETATE 0.1 MG TABLET 0.2 MG PO (20:50)
[2024-11-02] MEDS: AZITHROMYCIN 500 MG TABLET PO (20:51)
[2024-11-02] MEDS: ZOLPIDEM TARTRATE (*CRX) 5 MG TABLET 10 MG PO (20:52)
[2024-11-02] MEDS: INSULIN GLARGINE (*BKC) 100 UNITS/ML 20 UNITS SUB-Q (21:06)
[2024-11-03] VITALS (11 sets, daily range): BP systolic 95–119; BP diastolic 42–47; PULSE 86–101; RESP 14–22; TEMP 36.6; O2SAT 97–100
[2024-11-03] MEDS: IPRATROPIUM 0.5 MG/ALBUTEROL SULFATE 2.5 MG AMPUL.NEB 3 ML INHALATION ×2 (01:24→08:18)
[2024-11-03] MEDS: PREGABALIN (*CRX) 50 MG CAPSULE PO ×2 (05:10→14:40)
[2024-11-03 05:29] LABS: Hematocrit 26.1 % (42.0-52.0); Hemoglobin 9.1 g/dL (14.0-18.0); Immature Granulocyte Percent A 1.5 % (0-0.5); Lymphocytes Absolute Auto 0.61 K/mm3 (0.9-3.2); Mean Corpuscular HGB Conc 34.9 g/dl (32-36); Mean Corpuscular Hemoglobin 32.2 pg (26-34); Mean Corpuscular Volume 92.2 fl (80-100); Nucleated Red Blood Cells Absolute Auto 0.000 K/mm3 (0.0-0.012); Nucleated Red Blood Cells Perc 0.0 % (0.0-0.2); Platelet Count Result 155 k/mm3 (150-375); Red Blood Count 2.83 M/mm3 (4.6-6.20); White Blood Count 6.2 K/mm3 (4.5-10.0)
[2024-11-03] MEDS: CENTRAL LINE FLUSH 10 ML IV PUSH (05:35)
[2024-11-03 05:45] LABS: Alanine Aminotransferase 16 U/L (6-50); Albumin Level 3.4 g/dL (3.5-5.1); Alkaline Phosphatase 85 U/L (38-126); Anion Gap 3 mmol/L (4-12); Aspartate Amino Transferase 23 U/L (17-59); Bilirubin,Total 0.7 mg/dL (0.2-1.3); Blood Urea Nitrogen 28 mg/dL (9-20); Calcium 8.6 mg/dL (8.4-10.2); Carbon Dioxide 24 mmol/L (22-30); Chloride 101 mmol/L (98-107); Estimated CRCL calculation 41 ml/min; Estimated Glomerular Filt Rate 45; Glucose 117 mg/dL (65-110); Magnesium 1.9 mg/dL (1.6-2.3); Potassium 4.1 mmol/L (3.4-5.0); Sodium 128 mmol/L (137-145); Total Protein 6.3 g/dL (6.3-8.2)
[2024-11-03] MEDS: CEFEPIME 2 GM in SODIUM CHLORIDE 0.9% IV 50 ML 100 ML IVPB (10:50)
[2024-11-03] MEDS: MIDODRINE HCL 2.5 MG TABLET 5 MG PO (10:51)
[2024-11-03] MEDS: guaiFENesin 12 HR 600 MG TABCR PO (10:51)
[2024-11-03] MEDS: CLOPIDOGREL BISULFATE 75 MG TABLET PO (10:51)
[2024-11-03] MEDS: PANTOPRAZOLE 40 MG TABLET PO (10:51)
[2024-11-03] MEDS: ATORVASTATIN 40 MG TABLET PO (10:51)
[2024-11-03] MEDS: CYANOCOBALAMIN 1,000 MCG TABLET 1000 MCG PO (10:51)
[2024-11-03] MEDS: MEGESTROL ACETATE (*CHEMO) ORAL SUSP 40 MG/ML UD 400 MG PO (10:51)
[2024-11-03] MEDS: MAGNESIUM OXIDE 400 MG TABLET PO (10:51)
[2024-11-03] MEDS: FERROUS SULFATE 325 MG TABLET BY MOUTH (10:51)
[2024-11-03] MEDS: INSULIN ASPART (*BKC) 100 UNITS/ML SUB-Q (11:34)
--- NOTE | 2024-11-03 14:20 | PM.DS ---
DS: Admitting Diagnosis Discharge Date 11/03/24 Admitting Diagnosis Shortness of Breath, Chest Pain DS: Discharge Diagnosis Discharge Diagnosis (1) Acute on chronic heart failure with preserved ejection fraction: Code(s): I50.33 - Acute on chronic diastolic (congestive) heart failure Status: Acute (2) Community acquired pneumonia: Code(s): J18.9 - Pneumonia, unspecified organism Status: Acute DS: Summary Hospital Course Hospital Course: 69 y/o M with PMH of alcohol abuse (in remission), cirrhosis, bladder cancer, esophageal varices, COPD, CKD, CVA with residual right-sided weakness, diabetes, GERD, hepatocellular carcinoma presents here with chest pain and shortness of breath. Initial VS at presentation: 97.5? F, HR 120, R 20, 136/72, and 97% on RA. ED workup showed: WBC 12.3, hemoglobin 9.9 (10.1 on 10/28), INR 1.3, no significant derangements on ABG, sodium 133, creatinine 1.48 and GFR 47, glucose her 3, lactic 2.7, initial troponin 0.324, BNP 73837, and procalcitonin 0.1, UA showed 2+ protein, 6-10 WBC, 1+ bacteria and rare epithelial cells. MRSA and viral PCR negative. CXR showed subtle by a lateral interstitial infiltrates suspicious for mild edema or pneumonia. Chest CTA showed interstitial changes bilaterally with subtle patchy ground-glass opacities of the lower lobes, subscapular fluid surrounding the spleen suspicious for hemorrhage with no laceration identified. Patient was managed for sepsis and pneumonia Cefepime and Azithromycin, completed 4 days and discharged on 10 days of Cefpodoxime due to possible immunosuppression from immunotherapy. Vital signs are within normal limits and leukocytosis resolved. Patient discharged on 10 more days of antibiotics F/u with PCP in 3-5 days Continue scheduled follow up with oncology Time Spent with Patient Time attestation: Total time spent providing and/or coordinating discharge services: DS: Data Data Completed and Pending Labs on day of discharge: Labs from last 24 hours 11/03/24 11/03/24 11/03/24 10:57 07:15 05:18 WBC 6.2 RBC 2.83 L Hgb 9.1 L Hct 26.1 L MCV 92.2 MCH 32.2 MCHC 34.9 RDW 13.3 Plt Count 155 MPV 9.4 Immature Gran % (Auto) 1.5 H Neut % (Auto) 75.1 H Lymph % (Auto) 9.9 L [place] % (Auto) 8.7 H Eos % (Auto) 4.5 H Baso % (Auto) 0.3 Lymph # (Auto) 0.61 L [place] # (Auto) 0.5 Eos # (Auto) 0.3 Baso # (Auto) 0.0 Abs Immat Gran (auto) 0.09 H Absolute Neuts (auto) 4.6 Absolute Nucleated RBC 0.000 Nucleated RBC % 0.0 Sodium Potassium Chloride Carbon Dioxide Anion Gap BUN Creatinine Estim Creat Clear Calc Estimated GFR Glucose POC Capillary Glucose 343 H 109 H Calcium Magnesium Total Bilirubin AST ALT Alkaline Phosphatase Total Protein Albumin 11/03/24 11/02/24 11/02/24 05:17 19:41 15:23 WBC RBC Hgb Hct MCV MCH MCHC RDW Plt Count MPV Immature Gran % (Auto) Neut % (Auto) Lymph % (Auto) [place] % (Auto) Eos % (Auto) Baso % (Auto) Lymph # (Auto) [place] # (Auto) Eos # (Auto) Baso # (Auto) Abs Immat Gran (auto) Absolute Neuts (auto) Absolute Nucleated RBC Nucleated RBC % Sodium 128 L Potassium 4.1 Chloride 101 Carbon Dioxide 24 Anion Gap 3 L BUN 28 H Creatinine 1.53 H Estim Creat Clear Calc 41 Estimated GFR 45 L Glucose 117 H POC Capillary Glucose 271 H 220 H Calcium 8.6 Magnesium 1.9 Total Bilirubin 0.7 AST 23 ALT 16 Alkaline Phosphatase 85 Total Protein 6.3 Albumin 3.4 L Preliminary micro results at discharge 10/30/24 15:39 Blood Culture - Preliminary Blood 10/30/24 15:50 Blood Culture - Preliminary Blood Discharge Plan Discharge Attending physician on discharge: Riley Blevins Consulting providers: Warren Aguilar Discharging Clinician: Riley Blevins Anticipated Discharge Date/Time: 11/03/24 14:10 Patient Disposition: Home Activity: as tolerated Diet: as tolerated, heart healthy and diabetic Patient Instructions: Antibiotic Form, How to Stop Smoking (DC), Sepsis (GEN), Pneumonia (GEN), High Troponin Levels (GEN) Patient Language: [place]at[place] Stand Alone Forms: General Discharge Information Follow-up/Referrals: Sandie,MD Shay [Primary Care Provider, Unknown] Referral Note: F/u with PCP in 3-5 days Discharge Medications: New guaifenesin [Mucus Relief ER] 600 mg Tablet Extended Release 12hr 600 mg PO Q12HR 7 Days Qty: 14 0RF cefpodoxime 200 mg tablet 200 mg PO BID 10 Days Qty: 20 0RF Rx Instructions: must administer with a meal/food Continued midodrine 5 mg tablet 5 mg PO TID Rx Instructions: do not give last dose of day after 6PM or within 4 hrs of bedtime pantoprazole 40 mg tablet,delayed release (DR/EC) 40 mg PO Q12H zolpidem 10 mg tablet 10 mg PO HS Patient Comments: . pregabalin 50 mg capsule 50 mg PO Q8H Fiasp U-100 Insulin 100 unit/mL solution See Protocol subcut TID Protocol: Insulin Corrective Moderate-Dose Condition: glucose < 70 mg/dl Dose/Route: Follow hypoglycemia orders Condition: glucose 70-200 mg/dl Dose/Route: No additional insulin Condition: glucose 201-250 mg/dl Dose/Route: 3 units sub-Q Condition: glucose 251-300 mg/dl Dose/Route: 4 units sub-Q Condition: glucose 301-350 mg/dl Dose/Route: 5 units sub-Q Condition: glucose 351-400 mg/dl Dose/Route: 6 units sub-Q Condition: glucose > 400 mg/dl Dose/Route: Call Protocol Text: *No Correction Dose at Bedtime* Rx Instructions: sliding scale acetaminophen 500 mg Capsule 500 mg PO BID PRN (Reason: Pain) Patient Comments: ..... albuterol sulfate 90 mcg/actuation HFA aerosol inhaler 1 puff INHALATION Q4-6H PRN (Reason: Shortness Of Breath Or Wheezing) Patient Comments: . cetirizine 10 mg tablet 10 mg PO DAILY PRN (Reason: allergies) Patient Comments: . hydroxyzine HCl 50 mg tablet 50 mg PO Q8H PRN (Reason: Itching) Patient Comments: Patient takes before bed every night magnesium oxide 400 mg (241.3 mg magnesium) tablet 400 mg PO DAILY ferrous sulfate 325 mg (65 mg iron) Capsule, Extended Release 325 mg PO DAILY mecobalamin (vitamin B12) [B12 Active] 1,000 mcg Tablet,Chewable 1,000 mcg PO DAILY atorvastatin 40 mg Tablet 40 mg PO DAILY 30 Days Qty: 30 1RF Patient Comments: . clopidogrel 75 mg Tablet 75 mg PO QAM 30 Days Qty: 30 1RF Patient Comments: PARRES TO INSTRUCT PT PREOP nitroglycerin [Nitrostat] 0.4 mg tablet, sublingual 0.4 mg sublingual Q5M PRN (Reason: chest pain) Qty: 20 0RF Rx Instructions: do not exceed 3 doses per episode (DME) Accu-Chek Guide test strips Strip MISCELLANEOUS desmopressin 0.1 mg tablet 0.2 mg PO HS fluticasone propionate 50 mcg/actuation spray,suspension 1 spray INTRANASAL Q12H PRN (Reason: allergy symptoms) lidocaine-prilocaine 2.5-2.5 % cream 1 applic topical DAILY PRN (Reason: port access) megestrol 400 mg/10 mL (40 mg/mL) suspension 400 mg PO DAILY insulin degludec [Tresiba U-100 Insulin] 100 unit/mL solution 20 unit SUBCUT HS metoclopramide HCl [Reglan] 10 mg tablet 10 mg PO Q6H PRN (Reason: nausea and vomiting) Qty: 14 0RF Patient Comments: Only takes when he doesn't feel good. Patient does not remember the last time he took it furosemide [Lasix] 20 mg tablet 20 mg PO DAILY PRN (Reason: edema) Qty: 30 0RF Rx Instructions: Daily weights, if you gain more than 3lb within 1 day or 5 lbs in 1 week please take one tablet hydrocodone-acetaminophen 5-325 mg tablet 1 - 2 tablet PO Q6H PRN (Reason: pain) Qty: 24 0RF Date of admission: 10/31/24 15:23 Primary Care Provider: Sandie,Shay Admitting Provider: Riley Blevins Attending physician on admission: Riley Blevins Condition: Stable
[2024-11-03] MEDS: AZITHROMYCIN 500 MG TABLET PO (14:40)
== END 2024-11-03 14:56 | disposition home or self-care (01) | DRG 871 ==
LOC: ANHED 18:09 → ANHIMU 19:48
PROVIDERS: Student in an Organized Health Care Education/Training Program; Admitting Provider Internal Medicine; Emergency Provider Emergency Medicine; PCP Internal Medicine; Visit Provider Internal Medicine
DX: A41.9 Sepsis, unspecified organism (principal); J18.9 Pneumonia, unspecified organism; J44.0 Chronic obstructive pulmonary disease with (acute) lower respiratory infection; I69.351 Hemiplegia and hemiparesis following cerebral infarction affecting right dominant side; I50.32 Chronic diastolic (congestive) heart failure; E11.22 Type 2 diabetes mellitus with diabetic chronic kidney disease; N18.9 Chronic kidney disease, unspecified; K70.30 Alcoholic cirrhosis of liver without ascites; D64.9 Anemia, unspecified; R93.5 Abnormal findings on diagnostic imaging of other abdominal regions, including retroperitoneum; F10.11 Alcohol abuse, in remission; K21.9 Gastro-esophageal reflux disease without esophagitis; F17.210 Nicotine dependence, cigarettes, uncomplicated; R79.89 Other specified abnormal findings of blood chemistry; I70.0 Atherosclerosis of aorta; Z85.05 Personal history of malignant neoplasm of liver; Z85.51 Personal history of malignant neoplasm of bladder; Z79.01 Long term (current) use of anticoagulants; Z89.412 Acquired absence of left great toe
CPT/HCPCS: 36415; 36600; 71045; 71275; 80053; 81001; 82728; 82805; 82948; 83540; 83550; 83605; 83690; 83735; 83880; 84145; 84484; 85018; 85025; 85610; 85730; 87040; 87086; 87637; 87641; 93005; 94640; 96361; 96365; 96374; 96376; 99285; A9270; G0378; J0456; J0692; J1642; J1644; J1815; J1938; J2270; J3373; J7030; J7120; Q9967